=== PATIENT | male | born 1960 | race Caucasian/White ===

== ENCOUNTER 2016-09-27 08:40 | Observation (INO) | payer OTHER ==
[2016-09-27] MEDS ORDERED: methylPREDNISolone SOD SUCCI 125 MG/2 ML VIAL IV STA (09:02)
[2016-09-27] MEDS ORDERED: SODIUM CHLORIDE 0.9% 1,000 ML IV STA (09:02)
[2016-09-27] MEDS ORDERED: ALBUTEROL NEBULIZED 2.5 MG/3 ML INHALATION STA (09:02)
[2016-09-27] MEDS ORDERED: IPRATROPIUM 0.5 MG/2.5 ML NEBU INHALATION STA (09:02)
[2016-09-27] MEDS ORDERED: ONDANSETRON 4 MG/2 ML VIAL IVP STA (09:07)
[2016-09-27] MEDS: HYDROmorphone 1 MG/ML 1 ML SYRINGE IVP STA ×2 (09:53→13:36)
[2016-09-27 10:11] LABS: Basophils % (A) 0 %; CH 34.7; CHCM 34.7; Eosinophils # (A) 0.2 k/uL (0-0.7); Eosinophils % (A) 1 %; HCT 49.4 % (39.0-53.0); HDW 2.13; HGB 16.7 gm/dL (13.0-17.5); Luc # (Auto) 0.21; Luc % (Auto) 2; Lymphocytes # (A) 0.9 k/uL (1.0-4.8); Lymphocytes % (A) 8 %; MCHC 33.8 g/dL (31.0-37.0); MCV 100.5 fL (80.0-100.0); Mean Platelet Volume 6.4; Monocytes # (A) 0.5 k/uL (0-1.0); Monocytes % (A) 4 %; Neutrophils # (A) 9.7 k/uL (1.3-7.7); Neutrophils % (A) 85 %; RBC 4.91 m/uL (4.30-5.90); RDW 12.7 % (11.5-15.5); WBC 11.5 k/uL (3.8-10.6); WBC (Perox) 11.56
--- NOTE | 2016-09-27 10:15 | XR ---
EXAMINATION TYPE: XR chest 2V DATE OF EXAM: 09/27/2016 10:12 AM COMPARISON: 03/12/2016 TECHNIQUE: PA and lateral views submitted. HISTORY: Difficulty breathing FINDINGS: There is new left perihilar and upper lobe area of consolidation. Underlying COPD noted. No pleural e ffusion, pneumothorax or overt failure. Arthropathy of the shoulders and hypertrophic change of the spine. IMPRESSION: 1. COPD with new left upper lobe area of consolidation. Differential diagnosis includes pneumonia. Fo llow-up to resolution to exclude underlying neoplasm.
[2016-09-27 10:27] LABS: ALT 43 U/L (21-72); AST 39 U/L (17-59); Alkaline Phosphatase 71 U/L (38-126); Anion Gap 9 mmol/L; Blood Urea Nitrogen 8 mg/dL (9-20); Calcium 9.8 mg/dL (8.4-10.2); Carbon Dioxide 24 mmol/L (22-30); Chloride 101 mmol/L (98-107); Glucose 110 mg/dL (74-99); Non-African American GFR(MDRD) >60 (>60 ml/min/1.73 sqM); Potassium 4.6 mmol/L (3.5-5.1); Sodium 134 mmol/L (137-145); Total Bilirubin 0.8 mg/dL (0.2-1.3)
[2016-09-27 10:31] LABS: Partial Thromboplastin Time 26.7 sec (22.0-30.0); Prothrombin Time 10.3 sec (9.0-12.0)
[2016-09-27 10:41] LABS: Creatine Kinase 98 U/L (55-170)
[2016-09-27] MEDS ORDERED: AZITHROMYCIN 500 MG in SODIUM CHLORIDE 0.9% 250 ML IVPB STA (10:46)
[2016-09-27 10:53] LABS: Troponin I <0.012 ng/mL (0.000-0.034)
[2016-09-27 11:04] LABS: Creatine Kinase MB 4.4 ng/mL (0.0-2.4)
[2016-09-27] MEDS ORDERED: RX INFO: IV CONTRAST WAS GIVEN 1 EACH MISC MISCELLANE PRN (12:00)
--- NOTE | 2016-09-27 13:38 | CT ---
CT CHEST FOR PULMONARY EMBOLISM. EXAMINATION TYPE: CT angio chest DATE OF EXAM: 09/27/2016 1:26 PM INDICATION: SOB, Flu like symptoms CT DLP: 457 mGycm, Automated exposure control for dose reduction was used. CONTRAST: Patient injected with 100 ml mL of Omnipaque 350. COMPARISON: 09/01/2015 TECHNIQUE: CT of the chest is performed on a spiral scan at 2 mm thick sections. Study is performed with intravenous contrast timed for evaluation for pulmonary embolism. This will limit additional po rtions of the evaluation. 3-D MIP images reconstructed by the technologist are reviewed on the compu ter in the coronal and sagittal planes. FINDINGS: No persistent filling defects are evident to suggest an acute pulmonary embolism. No mediastinal or hilar adenopathy enlarged by CT criteria is evident. The ascending aorta diameter at the level of the main pulmonary artery is 2.9 cm. The main pulmonary artery diameter at the bifur cation is 2.4 cm. Emphysematous changes are present throughout the bilateral lung brown. There is a consolidation in t he superior segment left lower lobe. Findings could be related to pneumonia. This was not present on the comparison. Previous pleural effusions have resolved Limited CT section through the upper abdomen are unremarkable. IMPRESSIONS: 1. Consolidation superior segment left lower lobe suspicious for pneumonia. This is a finding from [facility] haile 2016. Underlying mass cannot be excluded. This should be followed to clearing. 2. No acute pulmonary embolism.
[2016-09-27] MEDS ORDERED: NITROGLYCERIN SL TABS 0.4 MG TAB SUBLINGUAL PRN (13:53)
[2016-09-27] MEDS ORDERED: HEPARIN SODIUM,PORCINE 5,000 UNIT/ML 1 ML VIAL IV ONE (13:53)
--- NOTE | 2016-09-27 13:53 | ED ---
SOB HPI - General Chief Complaint: Shortness of Breath Stated Complaint: SOB/Flu like symptoms Time Seen by Provider: 09/27/16 08:56 Source: patient Mode of arrival: ambulatory Limitations: no limitations - History of Present Illness Initial Comments: He has a history of shortness of breath, no worse for last 2 days also has a chronic chest pain and chest pain got worse today he has a history of COPD and pneumonia in the past he been coughing and bringing up some phlegm and he is also wheezing. He said the chest pain gets worse with deep deep breaths and numb he had a fever and cold last night he couldn't get warm with the 2 blankets. Denies any headaches no neck stiffness no abdominal pain no frequency urgency dysuria - Related Data Home Medications Medication Instructions Recorded Confirmed amLODIPine [Norvasc] 10 mg PO DAILY 02/07/15 09/27/16 levETIRAcetam [Keppra] 500 mg PO QAM 02/07/15 09/27/16 Albuterol Sulfate [Ventolin HFA] 2 puff INHALATION RT-Q4H PRN 03/31/15 09/27/16 Previous Rx's Medication Instructions Recorded Ipratropium-Albuterol Nebulize 3 ml INHALATION RT-QID #120 neb 04/19/15 [Duoneb 0.5 mg-3 mg/3 ml Soln] Budesonide-Formot 160-4.5 Mcg 2 puff INHALATION RT-BID #1 puff 07/08/15 [Symbicort 160-4.5 Mcg Inhaler] Allergies Allergy/AdvReac Type Severity Reaction Status Date / Time aspirin Allergy Unknown Verified 09/27/16 09:19 morphine Allergy Rash/Hives Verified 09/27/16 09:19 NSAIDS (Non-Steroidal Allergy Unknown Verified 09/27/16 09:19 Anti-Inflamma Review of Systems ROS Statement: Those systems with pertinent positive or pertinent negative responses have been documented in the HPI. ROS Other: All systems not noted in ROS Statement are negative. 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,PER PAST MEDICAL HX NOTED C2 fracture(FROM [facility]-NOT ABLE TO CONFIRM WITH PT), Osteoarthritis, DJD Last Myocardial Infarction Date:: unknown History of Any Multi-Drug Resistant Organisms: None Reported Past Surgical History: Orthopedic Surgery Additional Past Surgical History / Comment(s): neck fx, metal plate left hand middle finger Past Anesthesia/Blood Transfusion Reactions: No Reported Reaction Past Psychological History: No Psychological Hx Reported Smoking Status: Former smoker Past Alcohol Use History: Daily Additional Past Alcohol Use History / Comment(s): STARTED SMOKING 1975 1 PPD- HAS TRIED TO QUIT, PT ADMITS TO DRINKING 1-2 24 [employer] BEER PER DAY Past Drug Use History: None Reported - Past Family History Mother Family Medical History: Cancer Additional Family Medical History / Comment(s): Pt believes his Mom of Kidney Ca, but not 100% sure. Father Family Medical History: Cancer, Respiratory Disorder Additional Family Medical History / Comment(s): Melonoma General Exam - General Exam Comments Initial Comments: General: The patient is awake and alert, in no distress, and does not appear acutely ill. Skin: Skin is warm and dry and no rashes or lesions are noted. Eye: Pupils are equal, round and reactive to light, extra-ocular movements are intact; there is normal conjunctiva bilaterally. Ears, nose, mouth and throat: There are moist mucous membranes and no oral lesions. Neck: The neck is supple, there is no tenderness or JVD. Cardiovascular: There is a regular rate and rhythm. No murmur, rub or gallop is appreciated. Respiratory: To auscultation bilateral, some is consistent with down COPD, noticed some crackles at the bases as well Gastrointestinal: Soft, non-distended, non-tender abdomen without masses or organomegaly noted. There is no rebound or guarding present. Bowel sounds are unremarkable. Back: There is no tenderness to palpation in the midline. There is no obvious deformity. Musculoskeletal: Normal ROM, no tenderness, There is no pedal edema. There is no calf tenderness or swelling. No cords were appreciated. Neurological: CN II-XII intact, Cranial nerves III through XII are intact. There are no obvious motor or sensory deficits. Coordination appears grossly intact. Speech is normal. Psychiatric: Cooperative, appropriate mood & affect, normal judgment. Limitations: no limitations Course Vital Signs 09/27/16 09/27/16 09/27/16 08:46 09:15 09:37 Temperature 97 F L Pulse Rate 109 H 94 99 Respiratory 20 Rate Blood Pressure 145/86 O2 Sat by Pulse 95 Oximetry 09/27/16 09/27/16 09/27/16 09:50 11:10 11:32 Temperature 98.9 F Pulse Rate 96 96 93 Respiratory 18 18 18 Rate Blood Pressure 128/82 124/71 O2 Sat by Pulse 94 L 94 L 95 Oximetry 09/27/16 09/27/16 12:23 13:32 Temperature 98.7 F Pulse Rate 93 87 Respiratory 16 16 Rate Blood Pressure 148/88 162/70 O2 Sat by Pulse 94 L 95 Oximetry EKG is normal sinus rhythm ventricular rate is 94 6 [place] interval is 136 QRS duration is 78 QT/QTC 344/434 review of this EKG did not reveal any ST elevation or ST depression Medical Decision Making - Lab Data Result diagrams: 09/27/16 09:50 09/27/16 09:50 Lab Results 09/27/16 09/27/16 09/27/16 Range/Units 09:50 09:50 09:50 WBC 11.5 H (3.8-10.6) k/uL RBC 4.91 (4.30-5.90) m/uL Hgb 16.7 (13.0-17.5) gm/dL Hct 49.4 (39.0-53.0) % MCV 100.5 H (80.0-100.0) fL MCH 34.0 (25.0-35.0) pg MCHC 33.8 (31.0-37.0) g/dL RDW 12.7 (11.5-15.5) % Plt Count 231 (150-450) k/uL Neutrophils % 85 % Lymphocytes % 8 % Monocytes % 4 % Eosinophils % 1 % Basophils % 0 % Neutrophils # 9.7 H (1.3-7.7) k/uL Lymphocytes # 0.9 L (1.0-4.8) k/uL Monocytes # 0.5 (0-1.0) k/uL Eosinophils # 0.2 (0-0.7) k/uL Basophils # 0.0 (0-0.2) k/uL PT (9.0-12.0) sec INR (<1.1) APTT (22.0-30.0) sec D-Dimer (<0.60) mg/L FEU Sodium 134 L (137-145) mmol/L Potassium 4.6 (3.5-5.1) mmol/L Chloride 101 (98-107) mmol/L Carbon Dioxide 24 (22-30) mmol/L Anion Gap 9 mmol/L BUN 8 L (9-20) mg/dL Creatinine 0.60 L (0.66-1.25) mg/dL Est GFR (MDRD) Af Amer >60 (>60 ml/min/1.73 sqM) Est GFR (MDRD) Non-Af >60 (>60 ml/min/1.73 sqM) Glucose 110 H (74-99) mg/dL Plasma Lactic Acid Gray (0.7-2.0) mmol/L Calcium 9.8 (8.4-10.2) mg/dL Total Bilirubin 0.8 (0.2-1.3) mg/dL AST 39 (17-59) U/L ALT 43 (21-72) U/L Alkaline Phosphatase 71 (38-126) U/L Total Creatine Kinase 98 (55-170) U/L CK-MB (CK-2) 4.4 H* (0.0-2.4) ng/mL CK-MB (CK-2) Rel Index 4.5 Troponin I <0.012 (0.000-0.034) ng/mL Total Protein 7.0 (6.3-8.2) g/dL Albumin 4.0 (3.5-5.0) g/dL 09/27/16 09/27/16 Range/Units 09:50 09:50 WBC (3.8-10.6) k/uL RBC (4.30-5.90) m/uL Hgb (13.0-17.5) gm/dL Hct (39.0-53.0) % MCV (80.0-100.0) fL MCH (25.0-35.0) pg MCHC (31.0-37.0) g/dL RDW (11.5-15.5) % Plt Count (150-450) k/uL Neutrophils % % Lymphocytes % % Monocytes % % Eosinophils % % Basophils % % Neutrophils # (1.3-7.7) k/uL Lymphocytes # (1.0-4.8) k/uL Monocytes # (0-1.0) k/uL Eosinophils # (0-0.7) k/uL Basophils # (0-0.2) k/uL PT 10.3 (9.0-12.0) sec INR 1.0 (<1.1) APTT 26.7 (22.0-30.0) sec D-Dimer 0.73 H (<0.60) mg/L FEU Sodium (137-145) mmol/L Potassium (3.5-5.1) mmol/L Chloride (98-107) mmol/L Carbon Dioxide (22-30) mmol/L Anion Gap mmol/L BUN (9-20) mg/dL Creatinine (0.66-1.25) mg/dL Est GFR (MDRD) Af Amer (>60 ml/min/1.73 sqM) Est GFR (MDRD) Non-Af (>60 ml/min/1.73 sqM) Glucose (74-99) mg/dL Plasma Lactic Acid Gray 1.1 (0.7-2.0) mmol/L Calcium (8.4-10.2) mg/dL Total Bilirubin (0.2-1.3) mg/dL AST (17-59) U/L ALT (21-72) U/L Alkaline Phosphatase (38-126) U/L Total Creatine Kinase (55-170) U/L CK-MB (CK-2) (0.0-2.4) ng/mL CK-MB (CK-2) Rel Index Troponin I (0.000-0.034) ng/mL Total Protein (6.3-8.2) g/dL Albumin (3.5-5.0) g/dL Critical Care Time Total Critical Care Time: 45 Critical Care Time: Came in with a shortness of breath any chest pain he was given some Ventolin Atrovent treatment and some pain medication he is chest pain and go away he persisted d-dimer was elevated considering that we did the CT angiogram of PE study was negative but still has chest pain considering his multiple risk factors and will require and heparinize him admit him for further evaluation. Though he has this pain is chronic but he needs at least for serial cardiac markers and cardiology consult Disposition Clinical Impression: Chest pain, Pleuritic chest pain, Pneumonia Disposition: ADMITTED IP TO THIS [facility] Condition: Good
[2016-09-27] MEDS ORDERED: ALBUTEROL NEBULIZED 2.5 MG/3 ML INHALATION PRN (14:03)
[2016-09-27] MEDS: HEPARIN SODIUM,PORCINE/D5W PMX 25,000 UNIT in DEXTROSE/WATER 1 500ML.BAG IV SCH ×2 (14:27→21:59)
[2016-09-27] MEDS: IPRATROPIUM-ALBUTEROL 3 ML NEB INHALATION SCH ×2 (15:53→20:03)
[2016-09-27 16:33] LABS: Creatine Kinase 102 U/L (55-170)
[2016-09-27 16:46] LABS: Troponin I <0.012 ng/mL (0.000-0.034)
[2016-09-27 16:47] LABS: Creatine Kinase MB 4.8 ng/mL (0.0-2.4)
[2016-09-27 17:39] LABS: Glucose,Whole Blood 160 mg/dL (75-99)
--- NOTE | 2016-09-27 18:12 | HP ---
DATE OF ADMISSION: Patient is a 56-year-old gentleman who came in with complaints of flu-like symptoms. Influenza testing is negative. Patient always had left-sided chest pain. Additionally patient is having bilateral lower rib cage pain that worsens with deep breathing. Patient denied any fever at home, but felt like he was having flu. Patient also complained of chills. Patient was also complaining of shortness of breath. Does have history of COPD. Used to follow in Dr. Vogt's clinic in the past. Patient denied any orthopnea, PND. Patient continues to smoke. I reviewed the imaging. Unfortunately I cannot see the images of CT angiogram. It was read as a left upper lobe ( ) although clinically I do hear any bronchophony or egophony or any other signs or symptoms of pneumonia. Patient is also complaining of a cough with sputum production which is white to yellowish in color. Until I confirm this pneumonic infiltrate, I will go ahead and continue the antibiotic. Patient will be started on systemic steroids as well. Patient appears to have pleurisy. Patient's chest pain appears to be non-cardiac in nature, not associated with food. Patient had a CTA which does not appear to have any pulmonary embolism as per the reading from the ER, and since his picture is not clear, I will go ahead and consult Pulmonary. Cardiology was consulted from ER. ROS: All other systems were reviewed and were negative. Home medications include: 1. Amlodipine. 2. Levetiracetam. 3. Albuterol. 4. ( ) 5. Budesonide fomoterol. ALLERGIES: 1. ASPIRIN. 2. MORPHINE. 3. NSAIDS. 4. ANTI-INFLAMMATORY MEDICATIONS. Past medical history is significant for: 1. COPD. 2. CVA. 3. Gastroesophageal reflux disease. 4. Hypertension. Patient had orthopedic surgeries in the past. SOCIAL HISTORY: Smoking history as mentioned above. Drinks about 1 to 2 24-ounce beers a day. Denied any drug abuse. FAMILY HISTORY: Mother had cancer; of kidney cancer. Father had melanoma and respiratory disorder. PHYSICAL EXAMINATION: VITAL SIGNS: Temperature 97.0, pulse of 109 when he came in; it is 94 now. Blood pressure is 145/50. Saturation of 95% on room air. GENERAL: The patient is alert and oriented x3, not in any acute distress. Well developed, well nourished. HEENT: Pupils are round and equally reacting to light. EOMI. No scleral icterus. No conjunctival pallor. Normocephalic, atraumatic. No pharyngeal erythema. No thyromegaly. CARDIOVASCULAR: S1 and S2 present. No murmurs, rubs, or gallops. PULMONARY: Mildly decreased air entry along with mild wheezing bilaterally. No crackles were appreciated. No wheezing was appreciated. ABDOMEN: Soft, nontender, nondistended, normoactive bowel sounds. No palpable organomegaly. MUSCULOSKELETAL: No joint swelling or deformity. EXTREMITIES: No cyanosis, clubbing, or pedal edema. NEUROLOGICAL: Gross neurological examination did not reveal any focal deficits. SKIN: No rashes. LABORATORY DATA: CBC, CMP are abnormal for elevated WBC count of 11,500. Sodium 134. Troponin ( ) did not show any acute ST-T wave changes. ASSESSMENT AND PLAN: 1. Chest pain; appears to be pleuritic. Ruled out pulmonary embolism. Patient probably has pleurisy. My suspicion is low for coronary artery-related chest pain. Patient will be anyway ruled out acute coronary syndromes. Cardiology was consulted. I will consult Pulmonary because of above-mentioned reasons. 2. Left upper lobe pneumonia as per the CT reading, although I cannot ( ) images. Clinically does not appear to have pneumonia. ( ) I will continue with the antibiotics. 3. Acute hypercapnic respiratory failure secondary to chronic obstructive pulmonary disease exacerbation. Patient will be started on systemic steroids, which also will help with the pleurisy. Influenza testing is negative. Patient will be started on inhalational treatments. 4. Gastroesophageal reflux disease. 5. Continued nicotine use and alcohol abuse. Counseling was provided regarding that. MTDD
[2016-09-27] MEDS: SYMBICORT 160-4.5 MCG INHALER INHALATION SCH (20:06)
[2016-09-27 20:50] LABS: Glucose,Whole Blood 145 mg/dL (75-99)
[2016-09-27 21:37] LABS: Creatine Kinase 104 U/L (55-170)
[2016-09-27 21:49] LABS: Troponin I <0.012 ng/mL (0.000-0.034)
[2016-09-27 21:51] LABS: Creatine Kinase MB 5.1 ng/mL (0.0-2.4)
[2016-09-27] MEDS: ATORVASTATIN 40 MG TAB PO SCH (22:09)
[2016-09-27] MEDS: methylPREDNISolone SOD SUCCI 40 MG/ML 1 ML VIAL IV SCH (22:10)
[2016-09-28] MEDS: HYDROcodone/APAP 7.5-325MG 1 EACH TAB PO PRN ×4 (02:16→21:20)
[2016-09-28 04:45] LABS: Cholesterol 143 mg/dL (<200); HDL Cholesterol 97 mg/dL (40-60); Triglycerides 61 mg/dL (<150)
[2016-09-28 06:23] LABS: Glucose,Whole Blood 179 mg/dL (75-99)
[2016-09-28] MEDS: INSULIN LISPRO (humaLOG) 300 UNIT/3 ML VIAL SQ SCH ×4 (07:13→21:18)
[2016-09-28] MEDS ORDERED: DOBUTamine DRIP for NUC MED 500 MG in DEXTROSE/WATER 1 250ML.BAG IV ONE (08:24)
--- NOTE | 2016-09-28 08:55 | CONS ---
DATE OF CONSULTATION: CHIEF COMPLAINT: Chest pain. Mr. Mallory is a 56-year-old gentleman with history of chronic pain including chronic recurrent episodes of chest discomfort and COPD, who presented to the hospital complaining of chest pain. He also has cough and mild shortness of breath. His chest discomfort is mild to moderate intensity, came on at rest without definite radiation to neck, arm or back unassociated with diaphoresis. EKG did not reveal ischemic changes, had a CT scan of the chest that is negative for pulmonary embolism. He has had 3 sets of cardiac enzymes that are negative and at the time of my evaluation, he appears comfortable at rest and is free of symptoms. His chest discomfort seems musculoskeletal in nature. Past medical history is significant for COPD, hypertension and chronic pain. Medications include Keppra, Norvasc, DuoNeb, Symbicort and albuterol. ALLERGIES: Allergic to ASPIRIN, MORPHINE and NSAIDS. Family history is significant for coronary artery disease. SOCIAL HISTORY: Significant for smoking that he states he quit about a few months ago. There is no history of EtOH abuse or drug abuse. REVIEW OF SYSTEMS: HEENT: Unremarkable. CARDIAC: As described above. RESPIRATORY: Negative. GI: Negative. GENITOURINARY: Negative. ALLERGY/IMMUNOLOGY: Negative. SKIN: Negative. MUSCULOSKELETAL: Significant for arthritis. PSYCHOSOCIAL: Negative. ENDOCRINE: Negative. HEMATOLOGICAL: Negative. DERMATOLOGICAL: Negative. CONSTITUTIONAL: Negative. The rest of the system review is not relevant. On exam, patient is comfortable at rest. Vital signs are stable. There is no jugular venous distention. Chest exam reveals good air entry bilaterally. Heart exam reveals first heart sounds. No gallop. No murmur, no rub. Abdomen is soft, nontender. Exam of extremities did not reveal edema. Peripheral pulses are felt. L[employer] WORK[employer] exam did not reveal focal neurological deficits. ASSESSMENT: 1. Chest pain. 2. Hypertension. 3. Chronic obstructive pulmonary disease. PLAN: Patient's chest discomfort is probably noncardiac in origin, myocardial infarction is ruled out. We are going to stop the IV heparin and schedule the patient for an echo and a dobutamine echo today. I reviewed all of his old records and he had a negative stress test in the past.
[2016-09-28] MEDS: amLODIPine 10 MG TAB PO SCH (08:59)
[2016-09-28] MEDS: methylPREDNISolone SOD SUCCI 40 MG/ML 1 ML VIAL IV SCH ×2 (09:00→21:18)
[2016-09-28] MEDS: levETIRAcetam 500 MG TAB PO SCH (09:00)
[2016-09-28] MEDS ORDERED: ASPIRIN 325 MG TAB PO SCH ×2 (09:00)
[2016-09-28] MEDS: IPRATROPIUM-ALBUTEROL 3 ML NEB INHALATION SCH ×4 (09:51→19:35)
[2016-09-28] MEDS: SYMBICORT 160-4.5 MCG INHALER INHALATION SCH ×2 (09:53→19:37)
[2016-09-28] MEDS ORDERED: METOPROLOL TARTRATE 5 MG/5 ML VIAL IVP ONE (10:55)
[2016-09-28] MEDS ORDERED: ATROPINE SULFATE 0.1 MG/ML 10ML SYRINGE ONE (10:55)
[2016-09-28 11:51] LABS: Glucose,Whole Blood 110 mg/dL (75-99)
[2016-09-28 12:10] LABS: Hemoglobin A1C 4.8 % (4.2-6.1)
--- NOTE | 2016-09-28 12:17 | ECHOS ---
DATE OF SERVICE: 09/28/2016 AGE: 56Y SEX: M HT: 77" WT: 131 lbs. Protocol Harrison: Others: Dobutamine Stress Echo Stage: Dur. of Exercise: *Heart Rate Blood Pressure *Rest: 72 Rest: 114/50 * *Max. Achieved: 160 Maximum BP: 160/68 85% PMHR: 140 100% PMHR: 165 *METS: INDICATION OF THE STUDY: Chest pain. MEDICATIONS: Keppra, Ventolin, DuoNeb, Symbicort. STRESS DATA: Pretesting physical examination showed heart rate of 72, pressure is 114/50 mmHg. Baseline EKG showed sinus rhythm. Dobutamine infusion at a dose of 10 mcg/kg per minute was initiated and increased to 20 mcg/kg per minute. We gave the patient 1 mg of atropine to enhance the heart rate. With dobutamine and atropine, the patient achieved a max heart rate of 160 beats per minute, which is about 96% of maximum predicted heart rate. Maximum blood pressure was 160/68 mmHg. Clinically the patient did not have any symptoms and the EKG did not show any significant ST or T wave abnormalities consistent with ischemia. ECHOCARDIOGRAM IMAGES: On echocardiogram images from parasternal long axis view, parasternal short axis view, apical 4 chambers and apical 2 chamber view, were obtained as the baseline images, at low-dose dobutamine infusion, at the peak of the heart rate, as well as on recovery and the echocardiogram images showed good augmentation in the left ventricular systolic function without any evidence of wall motion abnormalities consistent with ischemia. CONCLUSION: 1. Normal EKG in response to dobutamine. 2. Normal echocardiogram in response to dobutamine.
--- NOTE | 2016-09-28 12:20 | ECHOF ---
Referral Reason:chest pain MEASUREMENTS -------- HEIGHT: 167.6 cm WEIGHT: 65.8 kg BP: IVSd: 1.0 cm (0.6 - 1.1) LVIDd: 4.5 cm (3.9 - 5.3) LVPWd: 1.2 cm (0.6 - 1.1) IVSs: 1.6 cm LVIDs: 2.2 cm LVPWs: 1.5 cm Ao Diam: 3.1 cm (2.0 - 3.7) AV Cusp: 1.8 cm (1.5 - 2.6) LA Diam: 3.3 cm (2.7 - 3.8) MV EXCURSION: 18.395 mm (> 18.000) MV EF SLOPE: 169 mm/s (70 - 150) EPSS: 0.4 cm MV E Eugene: 0.60 m/s MV DecT: 155 ms MV A Eugene: 0.83 m/s MV E/A Ratio: 0.73 RAP: 5.00 mmHg RVSP: 9.74 mmHg FINDINGS -------- Sinus rhythm. This was a technically good study. There is mild concentric left ventricular hypertrophy. Overall left ventricular systolic function is normal with, an EF between 55 - 60 %. The right ventricle is normal in size and function. The left atrium is normal in size. The right atrium is normal in size. The aortic valve is trileaflet, and appears structurally normal. No aortic stenosis or regurgitation. The mitral valve leaflets are mildly thickened. Mild mitral regurgitation is present. Mild tricuspid regurgitation present. The right ventricular systolic pressure, as measured by Doppler, is 9.74mmHg. Pulmonic valve appears structurally normal. The aortic root size is normal. The pericardium is normal. CONCLUSIONS -------- 1. Sinus rhythm. 2. Mild mitral regurgitation is present. 3. Mild tricuspid regurgitation present. 4. The right ventricular systolic pressure, as measured by Doppler, is 9.74mmHg. 5. Pulmonic valve appears structurally normal. 6. The aortic root size is normal. 7. The pericardium is normal. 8. This was a technically good study. 9. There is mild concentric left ventricular hypertrophy. 10. Overall left ventricular systolic function is normal with, an EF between 55 - 60 %. 11. The right ventricle is normal in size and function. 12. The left atrium is normal in size. 13. The right atrium is normal in size. 14. The aortic valve is trileaflet, and appears structurally normal. No aortic stenosis or regurgitation. 15. The mitral valve leaflets are mildly thickened. ULTRASOUND TECHNICIAN: Jessica Garcia RDCS
[2016-09-28 17:01] LABS: Glucose,Whole Blood 150 mg/dL (75-99)
--- NOTE | 2016-09-28 17:26 | P.CNPUL ---
History of Present Illness Consult date: 09/28/16 Requesting physician: Mitchell Guzmán Reason for consult: pneumonia Chief complaint: Flulike symptoms, cough and shortness of breath vague chest pains History of present illness: This is a 56-year-old white male with history of hypertension, COPD, smoker, came in yesterday with mostly symptoms of shortness of breath, cough, vague left -sided chest pains, or rib cage pain, pleurisy type pain sometimes, and he was also complaining of chills. No documented fever, chest x-ray and CT of the chest were consistent with a left upper lobe infiltrate consistent with pneumonia. Patient was admitted and this consult was initiated. Patient denies any headaches no blurred vision no dizziness, he is known to have history of seizures but has been seizure free for many years. Compliant with his medication/Keppra. No nausea no vomiting no abdominal pain no melena no hematemesis. Patient has been seeing Dr. Bland for his COPD. 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,PER PAST MEDICAL HX NOTED C2 fracture(FROM [facility]-NOT ABLE TO CONFIRM WITH PT), Osteoarthritis, DJD, "FROZEN SHOULDER SYNDROME (RT)" , [place]-PT STATED IN THE Last Myocardial Infarction Date:: unknown History of Any Multi-Drug Resistant Organisms: None Reported Past Surgical History: Orthopedic Surgery Additional Past Surgical History / Comment(s): neck fx, metal plate left hand middle finger Past Anesthesia/Blood Transfusion Reactions: No Reported Reaction Past Psychological History: No Psychological Hx Reported Additional Psychological History / Comment(s): 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 - Past Family History Mother Family Medical History: Cancer Additional Family Medical History / Comment(s): Pt believes his Mom of Kidney Ca, but not 100% sure. Father Family Medical History: Cancer, Respiratory Disorder Additional Family Medical History / Comment(s): Melonoma Medications and Allergies Home Medications Medication Instructions Recorded Confirmed Type amLODIPine [Norvasc] 10 mg PO DAILY 02/07/15 09/27/16 History levETIRAcetam [Keppra] 500 mg PO QAM 02/07/15 09/27/16 History Albuterol Sulfate [Ventolin HFA] 2 puff INHALATION RT-Q4H PRN 03/31/15 09/27/16 History Allergies Allergy/AdvReac Type Severity Reaction Status Date / Time aspirin Allergy Unknown Verified 09/27/16 09:19 morphine Allergy Rash/Hives Verified 09/27/16 09:19 NSAIDS (Non-Steroidal Allergy Unknown Verified 09/27/16 09:19 Anti-Inflamma Physical Exam Vitals: Vital Signs Temp Pulse Pulse Resp BP Pulse Ox 09/28/16 16:25 72 09/28/16 16:09 70 09/28/16 16:00 96.9 F L 93 16 102/65 09/28/16 13:28 70 09/28/16 13:19 68 09/28/16 11:49 97 F L 94 16 117/70 09/28/16 10:04 66 09/28/16 09:54 62 09/28/16 08:00 97.2 F L 95 16 113/71 96 09/28/16 04:00 97.3 F L 69 18 123/81 96 09/28/16 02:54 60 09/28/16 02:42 58 L 09/28/16 00:00 97.0 F L 66 16 120/78 96 09/27/16 20:20 70 09/27/16 20:08 70 09/27/16 20:00 97.2 F L 66 16 122/79 97 Intake and Output 09/28/16 09/28/16 09/28/16 06:59 14:59 22:59 Intake Total 153.236 Output Total 1400 Balance 153.236 -1400 Intake: Intake, IV Titration 153.236 Amount Heparin Sodium,Porcine/ 153.236 D5w Pmx 25,000 unit In Dextrose/Water 1 500ml. bag @ 12 UNITS/KG/HR 15. 78 mls/hr IV .Q24H [facility] Rx #:[id number] Output: Urine 1400 Other: Voiding Method Urinal Weight 59.8 kg Patient Weight 09/29/16 06:59 Weight 59.8 kg Physical Exam HEENT:[Neck is supple.] [No neck masses.] [No thyromegaly.] [No JVD.] Chest: [Clear throughout, no crackles, no rhonchi, no wheezes.] Cardiac Exam: [Normal S1 and S2, no S3 gallop, no murmur.] Abdomen: [Soft, nontender, no megaly, no rebound, no guarding, normal bowel sounds.] Extremities: [No clubbing, no edema, no cyanosis.] Neurological Exam: [No focal neurologic deficit.] Results - Laboratory Findings CBC and BMP: 09/27/16 09:50 09/27/16 09:50 PT/INR, D-dimer PT 10.3 sec (9.0-12.0) 09/27/16 09:50 INR 1.0 (<1.1) 09/27/16 09:50 D-Dimer 0.73 mg/L FEU (<0.60) H 09/27/16 09:50 Abnormal lab findings: Abnormal Labs 09/27/16 09/27/16 09/27/16 15:56 17:16 20:49 APTT POC Glucose (mg/dL) 160 H 145 H CK-MB (CK-2) 4.8 H* HDL Cholesterol 09/27/16 09/27/16 09/28/16 20:56 20:56 03:50 APTT 33.8 H POC Glucose (mg/dL) CK-MB (CK-2) 5.1 H* HDL Cholesterol 97 H 09/28/16 09/28/16 09/28/16 03:50 06:22 11:39 APTT 35.9 H POC Glucose (mg/dL) 179 H 110 H CK-MB (CK-2) HDL Cholesterol 09/28/16 16:47 APTT POC Glucose (mg/dL) 150 H CK-MB (CK-2) HDL Cholesterol - Diagnostic Findings CT scan - chest: image reviewed (Left upper lobe pneumonia is strongly suspected ) Assessment and Plan Plan: Impression: 1 Left upper lobe pneumonia seen on the chest x-ray and confirmed on the CT of the chest. Seems to be rather extensive hence the patient will need to be treated for community-acquired pneumonia probably gram-negative, and we will reevaluate the chest x-ray in the next 24 hours. If not any worse, patient could be considered for discharge planning on oral antibiotics, and close follow-up in the office within few days. 2 history of multiple comorbidities including chronic obstructive pulmonary disease, patient presently on bronchodilators and also on steroids, history of GERD, history of nicotine dependence, history of alcohol abuse, history of GERD , and history of seizure disorder. Recommendation: Fully agree with the present treatment plan repeat chest x-ray in a.m., and if not any worse consider discharge planning. And follow-up on outpatient basis. Time with Patient: Greater than 30
--- NOTE | 2016-09-28 19:04 | PN ---
Patient is a 56 -year-old came in with left upper lobe pneumonia and patient is being treated for that and patient is still complaining of chest pain. The patient underwent stress test which was negative. Patient was ruled out for pulmonary embolism. REVIEW OF SYSTEMS: CARDIOVASCULAR: As mentioned above. PULMONARY: As mentioned above. GASTROINTESTINAL: No diarrhea, nausea or vomiting. No abdominal pain. Normoactive bowel sounds. NEUROLOGIC: No headaches, no weakness, no numbness. LABORATORY DATA: CBC, CMP essentially within normal limits. PHYSICAL EXAMINATION: VITAL SIGNS: Temperature 96.9, pulse of 93, respiratory rate of 16, blood pressure 102/65. Saturating at 96% on room air. GENERAL: The patient is alert and oriented x3, not in any acute distress. Well developed, well nourished. HEENT: Pupils are round and equally reacting to light. EOMI. No scleral icterus. No conjunctival pallor. Normocephalic, atraumatic. No pharyngeal erythema. No thyromegaly. CARDIOVASCULAR: S1 and S2 present. No murmurs, rubs, or gallops. PULMONARY: rhonchus with some bilaterally. No wheezing was appreciated. Did not hear any clear-cut bronchophony or egophony. ABDOMEN: Soft, nontender, nondistended, normoactive bowel sounds. No palpable organomegaly. MUSCULOSKELETAL: No joint swelling or deformity. EXTREMITIES: No cyanosis, clubbing, or pedal edema. NEUROLOGICAL: Gross neurological examination did not reveal any focal deficits. SKIN: No rashes. ASSESSMENT AND PLAN: 1. Chest pain and shortness of breath secondary to the left upper lobe pneumonia. Continue IV antibiotics. 2. Acute hypercapnic respiratory failure secondary to chronic obstructive pulmonary disease exacerbation, continue inhalational treatments. Continue systemic steroids. 3. Gastroesophageal reflux disease. 4. Continued nicotine abuse and alcohol abuse. Counseling was provided regarding that. We will watch him for any withdrawals. If he starts having withdrawals, patient will be started on Ativan and CIWA protocol.
[2016-09-28 20:55] LABS: Glucose,Whole Blood 164 mg/dL (75-99)
[2016-09-28] MEDS: ATORVASTATIN 40 MG TAB PO SCH (21:18)
[2016-09-29] MEDS: HYDROcodone/APAP 7.5-325MG 1 EACH TAB PO PRN ×3 (03:54→15:26)
[2016-09-29 04:35] VITALS: RESP 18; TEMP 97.1
[2016-09-29 06:08] LABS: Glucose,Whole Blood 142 mg/dL (75-99)
[2016-09-29] MEDS: IPRATROPIUM-ALBUTEROL 3 ML NEB INHALATION SCH ×3 (06:16→15:11)
[2016-09-29] MEDS: INSULIN LISPRO (humaLOG) 300 UNIT/3 ML VIAL SQ SCH ×2 (06:20→15:19)
[2016-09-29] MEDS: SYMBICORT 160-4.5 MCG INHALER INHALATION SCH (07:43)
[2016-09-29] MEDS: methylPREDNISolone SOD SUCCI 40 MG/ML 1 ML VIAL IV SCH (08:19)
[2016-09-29] MEDS: levETIRAcetam 500 MG TAB PO SCH (08:20)
[2016-09-29] MEDS: amLODIPine 10 MG TAB PO SCH (08:20)
[2016-09-29] MEDS ORDERED: AZITHROMYCIN 500 MG TAB PO STA (09:59)
[2016-09-29] MEDS ORDERED: CEFUROXIME 250 MG TAB PO SCH (10:00)
--- NOTE | 2016-09-29 11:02 | P.PN ---
Subjective Principal diagnosis: Chest pain This is a 56-year-old gentleman with history of chronic pain, COPD, who presented to the hospital with symptoms of chest pain with associated cough and mild shortness of breath. He underwent a dobutamine echocardiographic study yesterday that was negative for any reversible ischemia. Echocardiogram with Doppler study was performed which revealed normal left ventricular systolic function. Patient was seen and examined this morning, feeling depressed. No overt complaints. Denies chest pain. Blood pressure 126/70 with a heart rate of 90. Objective - Vital Signs Vital signs: Vital Signs Temp 97.1 F L 09/29/16 08:00 Pulse 93 09/29/16 08:00 Resp 18 09/29/16 08:00 BP 126/75 09/29/16 08:00 Pulse Ox 95 09/29/16 08:00 Intake & Output 09/28/16 09/29/16 09/29/16 18:59 06:59 18:59 Intake Total 300 236 Output Total 1800 0 Balance -1500 0 236 Weight 59.8 kg 60.3 kg Intake: Oral 300 236 Output: Urine 1800 0 Other: Voiding Method Urinal Urinal # Voids 2 - Exam PHYSICAL EXAMINATION: HEENT: Head is atraumatic, normocephalic. Pupils equal, round. Neck is supple. There is no elevated jugular venous pressure. HEART EXAMINATION: Heart S1, S2 normal. No murmur or gallop heard. CHEST EXAMINATION: Lungs are clear to auscultation and precussion. No chest wall tenderness is noted on palpation or with deep breathing. ABDOMEN: Soft, nontender. Bowel sounds are heard. No organomegaly noted. EXTREMITIES: 2+ peripheral pulses with no evidence of peripheral edema and no calf tenderness noted. NEUROLOGIC patient is awake, alert and oriented -3. . - Labs CBC & Chem 7: 09/27/16 09:50 09/27/16 09:50 Labs: Abnormal Lab Results - Last 24 Hours (Table) 09/28/16 09/28/16 09/28/16 Range/Units 11:39 16:47 20:50 POC Glucose (mg/dL) 110 H 150 H 164 H (75-99) mg/dL 09/29/16 Range/Units 06:06 POC Glucose (mg/dL) 142 H (75-99) mg/dL Assessment and Plan (1) Atypical chest pain Status: Acute (2) COPD exacerbation Status: Acute (3) Pneumonia Status: Acute Plan: From cardiology's perspective, we will follow this patient with you now on an as -needed basis only. Please see to call with any questions. We will make him a follow-up appointment in the office post discharge. DNP note has been reviewed, I agree with a documented findings and plan of care. Patient was seen and examined.
--- NOTE | 2016-09-29 11:34 | P.PN ---
Subjective Principal diagnosis: Acute left upper lobe pneumonia his is a 56-year-old white male with history of hypertension, COPD, smoker, came in yesterday with mostly symptoms of shortness of breath, cough, vague left -sided chest pains, or rib cage pain, pleurisy type pain sometimes, and he was also complaining of chills. No documented fever, chest x-ray and CT of the chest were consistent with a left upper lobe infiltrate consistent with pneumonia. Patient was admitted and this consult was initiated. Patient denies any headaches no blurred vision no dizziness, he is known to have history of seizures but has been seizure free for many years. Compliant with his medication/Keppra. No nausea no vomiting no abdominal pain no melena no hematemesis. Patient has been seeing Dr. Bland for his COPD. Patient was reevaluated today on 09/29/2016, feeling better, but he had generalized aches and pains, patient is known to have history of chronic pain syndrome. Pulmonary-jhaveri is doing well, no cough no wheezing no shortness of breath, and I explained to him today that we will switch him to oral antibiotics , and possibly discharge the patient home today. He should have a follow-up chest x-ray with his primary care physician, and if remains abnormal patient is to be referred to us on outpatient basis. Objective - Vital Signs Vital signs: Vital Signs Temp 97.1 F L 09/29/16 08:00 Pulse 94 09/29/16 11:27 Resp 18 09/29/16 08:00 BP 126/75 09/29/16 08:00 Pulse Ox 95 09/29/16 08:00 Intake & Output 09/28/16 09/29/16 09/29/16 18:59 06:59 18:59 Intake Total 300 236 Output Total 1800 0 Balance -1500 0 236 Weight 59.8 kg 60.3 kg Intake: Oral 300 236 Output: Urine 1800 0 Other: Voiding Method Urinal Urinal # Voids 2 - Exam HEENT:[Neck is supple.] [No neck masses.] [No thyromegaly.] [No JVD.] Chest: [Clear throughout, no crackles, no rhonchi, no wheezes.] Cardiac Exam: [Normal S1 and S2, no S3 gallop, no murmur.] Abdomen: [Soft, nontender, no megaly, no rebound, no guarding, normal bowel sounds.] Extremities: [No clubbing, no edema, no cyanosis.] Neurological Exam: [No focal neurologic deficit.] - Labs CBC & Chem 7: 09/27/16 09:50 09/27/16 09:50 Labs: Abnormal Lab Results - Last 24 Hours (Table) 09/28/16 09/28/16 09/28/16 Range/Units 11:39 16:47 20:50 POC Glucose (mg/dL) 110 H 150 H 164 H (75-99) mg/dL 09/29/16 Range/Units 06:06 POC Glucose (mg/dL) 142 H (75-99) mg/dL Assessment and Plan Plan: Impression: 1 Left upper lobe pneumonia seen on the chest x-ray and confirmed on the CT of the chest. Seems to be rather extensive hence the patient will need to be treated for community-acquired pneumonia probably gram-negative, clinically the patient is doing well, he could be placed on Ceftin and Zithromax , and could be considered for discharge planning today with close outpatient follow-up. 2 history of multiple comorbidities including chronic obstructive pulmonary disease, patient presently on bronchodilators and also on steroids, history of GERD, history of nicotine dependence, history of alcohol abuse, history of GERD , and history of seizure disorder. Recommendation: Placed patient on Ceftin and Zithromax, and discharge home today. Must follow-up on outpatient basis with his primary care physician, must have a follow-up chest x-ray in one week, and the patient is to call us or follow up with us if he gets any worse. Time with Patient: Less than 30
[2016-09-29 12:00] LABS: Glucose,Whole Blood 98 mg/dL (75-99)
[2016-09-29 13:30] VITALS: BP 125/61
[2016-09-29 15:14] VITALS: PULSE 92
[2016-09-29 16:51] LABS: Glucose,Whole Blood 110 mg/dL (75-99)
--- NOTE | 2016-09-29 22:21 | DS ---
DATE OF ADMISSION: 09/27/2016 DATE OF DISCHARGE: 09/29/2016 Patient is admitted for left upper lobe pneumonia and the patient is feeling better and patient was also treated for COPD exacerbation. Patient is being discharged in stable medical condition to home. Patient was seen and examined on the day of discharge. Vital signs stable. PHYSICAL EXAMINATION: GENERAL: The patient is alert and oriented x3, not in any acute distress. Well developed, well nourished. HEENT: Pupils are round and equally reacting to light. EOMI. No scleral icterus. No conjunctival pallor. Normocephalic, atraumatic. No pharyngeal erythema. No thyromegaly. CARDIOVASCULAR: S1 and S2 present. No murmurs, rubs, or gallops. PULMONARY: Chest is clear to auscultation, no wheezing or crackles. ABDOMEN: Soft, nontender, nondistended, normoactive bowel sounds. No palpable organomegaly. MUSCULOSKELETAL: No joint swelling or deformity. EXTREMITIES: No cyanosis, clubbing, or pedal edema. NEUROLOGICAL: Gross neurological examination did not reveal any focal deficits. SKIN: No rashes. FINAL DIAGNOSES: 1. Left upper lobe pneumonia. 2. Acute hypercapnic respiratory failure secondary to chronic obstructive pulmonary disease exacerbation. 3. Gastroesophageal reflux disease. 4. Continue nicotine use and alcohol abuse. Counseling was provided. For discharge medications, please refer to my depart summary. Activity as tolerated. Follow up with Dr. Urszula Carrasco in 3 to 7 days. DISCHARGE DIET: Cardiac diet. Spent greater than 35 minutes in total discharge process.
== END 2016-09-29 17:21 | disposition home or self-care (01) ==
LOC: EC 08:40 → 4MS4W 14:03 → INTOOBSV 14:03 → 6SEL 15:02
PROVIDERS: ADMIT Internal Medicine; ATTEND Internal Medicine
DX: J18.9 Pneumonia, unspecified organism (principal); J44.0 Chronic obstructive pulmonary disease with (acute) lower respiratory infection; J96.02 Acute respiratory failure with hypercapnia; K21.9 Gastro-esophageal reflux disease without esophagitis; F10.10 Alcohol abuse, uncomplicated; F17.200 Nicotine dependence, unspecified, uncomplicated; G40.909 Epilepsy, unspecified, not intractable, without status epilepticus; G89.4 Chronic pain syndrome; I10 Essential (primary) hypertension; Z79.899 Other long term (current) drug therapy; Z86.73 Personal history of transient ischemic attack (TIA), and cerebral infarction without residual deficits; Z87.01 Personal history of pneumonia (recurrent); Z79.51 Long term (current) use of inhaled steroids; Z88.6 Allergy status to analgesic agent; Z88.5 Allergy status to narcotic agent
CPT/HCPCS: 96376; 96361; 96365; 96366; 96367; 96375; 99291; 36415; 94640 ×6; 93005; 93017; 93306; 93350; 85379; 80061; 80053; 83036; 82550; 82553; 83605; 84484; 85025; 85610; 85730 ×2; 87040; 87502; 71020; 71275; G0378 ×3; J1250; J1644 ×2; J2920 ×3; J2930; Q9967; J2405; J0456; J0696; J1170

== ENCOUNTER → 2016-10-03 | Outpatient (CLI) | payer OTHER ==
--- NOTE | 2016-10-03 17:31 | XR ---
EXAMINATION TYPE: XR chest 2V DATE OF EXAM: 10/03/2016 5:26 PM COMPARISON: 09/27/2016 HISTORY: Follow-up pneumonia TECHNIQUE: Frontal and lateral views of the chest are obtained. FINDINGS: Heart and mediastinum are normal. There is a small area of linear density in the left midl vaishnavi. The other lung brown are clear. There are no hilar masses. There is no pleural effusion. Bony t horax is intact. IMPRESSION: Small area of linear infiltrate and atelectasis in the left midlung. There is significan t clearing of the left lower lobe pneumonic infiltrate compared to last exam.
== END | disposition home or self-care (01) ==
LOC: RADXRMAIN 17:10
PROVIDERS: ATTEND Family Medicine
DX: J98.11 Atelectasis (principal); R91.8 Other nonspecific abnormal finding of lung field
CPT/HCPCS: 71020

== ENCOUNTER 2016-10-14 09:00 | Emergency (ER) | payer OTHER ==
[2016-10-14 09:08] VITALS: RESP 20
[2016-10-14] MEDS ORDERED: predniSONE 20 MG TAB PO STA (09:39)
[2016-10-14] MEDS ORDERED: IPRATROPIUM-ALBUTEROL 3 ML NEB INHALATION STA (09:39)
[2016-10-14] MEDS ORDERED: ALBUTEROL NEBULIZED 2.5 MG/3 ML INHALATION STA ×2 (09:39→13:14)
--- NOTE | 2016-10-14 09:56 | ED ---
SOB HPI - General Chief Complaint: Shortness of Breath Stated Complaint: diff breathing Time Seen by Provider: 10/14/16 09:07 Source: patient Mode of arrival: ambulatory Limitations: no limitations - History of Present Illness Initial Comments: This patient is a 56-year-old man with history of COPD, who states she has been having a flareup of his respiratory status. He complains of shortness of breath , chest tightness, productive cough which is getting worse over the past week or so. MD Complaint: shortness of breath, cough -: days(s) - Related Data Home Medications Medication Instructions Recorded Confirmed amLODIPine [Norvasc] 10 mg PO DAILY 02/07/15 10/14/16 levETIRAcetam [Keppra] 500 mg PO QAM 02/07/15 10/14/16 Albuterol Sulfate [Ventolin HFA] 2 puff INHALATION RT-Q4H PRN 03/31/15 10/14/16 Albuterol Nebulized [Ventolin 2.5 mg INHALATION RT-QID PRN 10/14/16 10/14/16 Nebulized] Previous Rx's Medication Instructions Recorded Budesonide-Formot 160-4.5 Mcg 2 puff INHALATION RT-BID #1 puff 07/08/15 [Symbicort 160-4.5 Mcg Inhaler] Albuterol Inhaler [Ventolin Hfa 1 - 2 puff INHALATION Q6HR PRN #1 10/14/16 Inhaler] inhaler Levofloxacin [Levaquin] 500 mg PO DAILY #7 tab 10/14/16 predniSONE 60 mg PO DAILY #30 tab 10/14/16 Allergies Allergy/AdvReac Type Severity Reaction Status Date / Time aspirin Allergy Unknown Verified 10/14/16 12:29 morphine Allergy Rash/Hives Verified 10/14/16 12:29 NSAIDS (Non-Steroidal Allergy Unknown Verified 10/14/16 12:29 Anti-Inflamma Review of Systems ROS Statement: Those systems with pertinent positive or pertinent negative responses have been documented in the HPI. ROS Other: All systems not noted in ROS Statement are negative. Constitutional: Denies: fever, chills Respiratory: Reports: cough, dyspnea, wheezes. 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,PER PAST MEDICAL HX NOTED C2 fracture(FROM [facility]-NOT ABLE TO CONFIRM WITH PT), Osteoarthritis, DJD, "FROZEN SHOULDER SYNDROME (RT)" , [place]-PT STATED IN THE Last Myocardial Infarction Date:: unknown History of Any Multi-Drug Resistant Organisms: None Reported Past Surgical History: Orthopedic Surgery Additional Past Surgical History / Comment(s): neck fx, metal plate left hand middle finger Past Anesthesia/Blood Transfusion Reactions: No Reported Reaction Past Psychological History: No Psychological Hx Reported Additional Psychological History / Comment(s): 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 - Past Family History Mother Family Medical History: Cancer Additional Family Medical History / Comment(s): Pt believes his Mom of Kidney Ca, but not 100% sure. Father Family Medical History: Cancer, Respiratory Disorder Additional Family Medical History / Comment(s): Melonoma General Exam Limitations: no limitations General appearance: alert, in no apparent distress Head exam: Present: atraumatic, normocephalic Eye exam: Present: normal appearance. Absent: scleral icterus, conjunctival injection Respiratory exam: Present: wheezes, rhonchi. Absent: rales, stridor Cardiovascular Exam: Present: normal rhythm, tachycardia, normal heart sounds. Absent: systolic murmur, diastolic murmur, rubs, gallop GI/Abdominal exam: Present: soft. Absent: distended, tenderness, guarding, rebound, mass Extremities exam: Present: normal inspection, normal capillary refill. Absent: pedal edema, calf tenderness Back exam: Present: normal inspection. Absent: CVA tenderness (R), CVA tenderness (L) Neurological exam: Present: alert Skin exam: Present: warm, dry, intact, normal color. Absent: rash Course Vital Signs 10/14/16 10/14/16 10/14/16 09:06 09:25 10:11 Temperature 96.9 F L Pulse Rate 108 H 96 Respiratory 20 20 Rate Blood Pressure 133/74 O2 Sat by Pulse 94 L Oximetry 10/14/16 10/14/16 10/14/16 10:18 10:19 10:34 Temperature Pulse Rate 94 94 102 H Respiratory Rate Blood Pressure O2 Sat by Pulse Oximetry Medical Decision Making - Lab Data Result diagrams: 10/14/16 09:20 10/14/16 09:20 Lab Results 10/14/16 10/14/16 10/14/16 Range/Units 09:20 09:20 09:20 WBC 7.1 (3.8-10.6) k/uL RBC 5.04 (4.30-5.90) m/uL Hgb 17.1 (13.0-17.5) gm/dL Hct 51.2 (39.0-53.0) % MCV 101.7 H (80.0-100.0) fL MCH 33.9 (25.0-35.0) pg MCHC 33.3 (31.0-37.0) g/dL RDW 12.6 (11.5-15.5) % Plt Count 322 (150-450) k/uL Neutrophils % 66 % Lymphocytes % 21 % Monocytes % 7 % Eosinophils % 3 % Basophils % 1 % Neutrophils # 4.7 (1.3-7.7) k/uL Lymphocytes # 1.5 (1.0-4.8) k/uL Monocytes # 0.5 (0-1.0) k/uL Eosinophils # 0.2 (0-0.7) k/uL Basophils # 0.1 (0-0.2) k/uL D-Dimer (<0.60) mg/L FEU Sodium 137 (137-145) mmol/L Potassium 4.6 (3.5-5.1) mmol/L Chloride 101 (98-107) mmol/L Carbon Dioxide 26 (22-30) mmol/L Anion Gap 10 mmol/L BUN 9 (9-20) mg/dL Creatinine 0.65 L (0.66-1.25) mg/dL Est GFR (MDRD) Af Amer >60 (>60 ml/min/1.73 sqM) Est GFR (MDRD) Non-Af >60 (>60 ml/min/1.73 sqM) Glucose 79 (74-99) mg/dL Calcium 9.5 (8.4-10.2) mg/dL Total Bilirubin 1.1 (0.2-1.3) mg/dL AST 33 (17-59) U/L ALT 32 (21-72) U/L Alkaline Phosphatase 63 (38-126) U/L Total Creatine Kinase 103 (55-170) U/L CK-MB (CK-2) 4.1 H* (0.0-2.4) ng/mL CK-MB (CK-2) Rel Index 4.0 Troponin I <0.012 (0.000-0.034) ng/mL Total Protein 7.1 (6.3-8.2) g/dL Albumin 4.2 (3.5-5.0) g/dL 10/14/16 Range/Units 09:20 WBC (3.8-10.6) k/uL RBC (4.30-5.90) m/uL Hgb (13.0-17.5) gm/dL Hct (39.0-53.0) % MCV (80.0-100.0) fL MCH (25.0-35.0) pg MCHC (31.0-37.0) g/dL RDW (11.5-15.5) % Plt Count (150-450) k/uL Neutrophils % % Lymphocytes % % Monocytes % % Eosinophils % % Basophils % % Neutrophils # (1.3-7.7) k/uL Lymphocytes # (1.0-4.8) k/uL Monocytes # (0-1.0) k/uL Eosinophils # (0-0.7) k/uL Basophils # (0-0.2) k/uL D-Dimer 0.36 (<0.60) mg/L FEU Sodium (137-145) mmol/L Potassium (3.5-5.1) mmol/L Chloride (98-107) mmol/L Carbon Dioxide (22-30) mmol/L Anion Gap mmol/L BUN (9-20) mg/dL Creatinine (0.66-1.25) mg/dL Est GFR (MDRD) Af Amer (>60 ml/min/1.73 sqM) Est GFR (MDRD) Non-Af (>60 ml/min/1.73 sqM) Glucose (74-99) mg/dL Calcium (8.4-10.2) mg/dL Total Bilirubin (0.2-1.3) mg/dL AST (17-59) U/L ALT (21-72) U/L Alkaline Phosphatase (38-126) U/L Total Creatine Kinase (55-170) U/L CK-MB (CK-2) (0.0-2.4) ng/mL CK-MB (CK-2) Rel Index Troponin I (0.000-0.034) ng/mL Total Protein (6.3-8.2) g/dL Albumin (3.5-5.0) g/dL - EKG Data -: EKG Interpreted by [facility] EKG shows normal: sinus rhythm, intervals (Normal), QRS complexes (Normal), ST- T waves (Normal) Rate: normal (Rate 98 bpm) Interpretation: other (Right atrial enlargement) Disposition Clinical Impression: COPD (chronic obstructive pulmonary disease), Pneumonia Disposition: HOME SELF-CARE Condition: Fair Instructions: Pneumonia (ED), COPD (Chronic Obstructive Pulmonary Disease) (ED) Prescriptions: Albuterol Inhaler [Ventolin Hfa Inhaler] 1 - 2 puff INHALATION Q6HR PRN #1 inhaler PRN Reason: Wheezing Levofloxacin [Levaquin] 500 mg PO DAILY #7 tab predniSONE 60 mg PO DAILY #30 tab Referrals: Urszula Carrasco MD [Primary Care Provider] - 1-2 days
[2016-10-14 10:15] LABS: ALT 32 U/L (21-72); AST 33 U/L (17-59); Alkaline Phosphatase 63 U/L (38-126); Anion Gap 10 mmol/L; Blood Urea Nitrogen 9 mg/dL (9-20); Calcium 9.5 mg/dL (8.4-10.2); Carbon Dioxide 26 mmol/L (22-30); Chloride 101 mmol/L (98-107); Glucose 79 mg/dL (74-99); Non-African American GFR(MDRD) >60 (>60 ml/min/1.73 sqM); Potassium 4.6 mmol/L (3.5-5.1); Sodium 137 mmol/L (137-145); Total Bilirubin 1.1 mg/dL (0.2-1.3); Total Protein 7.1 g/dL (6.3-8.2)
[2016-10-14 10:17] LABS: Basophils # (A) 0.1 k/uL (0-0.2); Basophils % (A) 1 %; CH 34.6; CHCM 34.1; Eosinophils # (A) 0.2 k/uL (0-0.7); Eosinophils % (A) 3 %; HCT 51.2 % (39.0-53.0); HDW 2.13; HGB 17.1 gm/dL (13.0-17.5); Luc # (Auto) 0.22; Luc % (Auto) 3; Lymphocytes # (A) 1.5 k/uL (1.0-4.8); Lymphocytes % (A) 21 %; MCH 33.9 pg (25.0-35.0); MCHC 33.3 g/dL (31.0-37.0); MCV 101.7 fL (80.0-100.0); Mean Platelet Volume 6.8; Monocytes # (A) 0.5 k/uL (0-1.0); Monocytes % (A) 7 %; Neutrophils # (A) 4.7 k/uL (1.3-7.7); Neutrophils % (A) 66 %; RBC 5.04 m/uL (4.30-5.90); RDW 12.6 % (11.5-15.5); WBC 7.1 k/uL (3.8-10.6); WBC (Perox) 7.06
[2016-10-14 10:26] LABS: Creatine Kinase 103 U/L (55-170)
[2016-10-14 10:38] LABS: Troponin I <0.012 ng/mL (0.000-0.034)
[2016-10-14 10:41] LABS: Creatine Kinase MB 4.1 ng/mL (0.0-2.4)
[2016-10-14] MEDS ORDERED: HYDROcodone/APAP 5-325MG 1 EACH TAB PO STA (10:49)
--- NOTE | 2016-10-14 10:54 | XR ---
EXAMINATION TYPE: XR chest 2V DATE OF EXAM: 10/14/2016 10:48 AM COMPARISON: 10/03/2016 HISTORY: 56-year-old male difficulty breathing TECHNIQUE: PA and lateral views FINDINGS: Heart is normal size. Aorta and pulmonary vasculature within normal limits. Diffuse interstitial prom inence and hyperinflation redemonstrated. Continued focal opacity left mid lung. IMPRESSION: COPD with residual left midlung infiltrate. No new infiltrate seen.
[2016-10-14] MEDS ORDERED: LEVOFLOXACIN 750 MG TAB PO STA (12:52)
[2016-10-14 13:38] VITALS: PULSE 92
[2016-10-14 13:52] VITALS: BP 136/80; TEMP 97.5
== END 2016-10-14 14:00 | disposition home or self-care (01) ==
LOC: EC 09:00
DX: J44.9 Chronic obstructive pulmonary disease, unspecified (principal); J18.9 Pneumonia, unspecified organism; I10 Essential (primary) hypertension; Z79.899 Other long term (current) drug therapy; Z88.6 Allergy status to analgesic agent; Z88.5 Allergy status to narcotic agent; Z88.8 Allergy status to other drugs, medicaments and biological substances; Z86.73 Personal history of transient ischemic attack (TIA), and cerebral infarction without residual deficits; I25.2 Old myocardial infarction; Z87.891 Personal history of nicotine dependence
CPT/HCPCS: 36415; 94640 ×2; 93005; 85379; 80053; 82550; 82553; 84484; 85025; 71020; 99285; J7512

== ENCOUNTER 2016-11-08 18:22 | Inpatient (IN) | payer OTHER ==
[2016-11-08] MEDS ORDERED: methylPREDNISolone SOD SUCCI 125 MG/2 ML VIAL IV STA (18:38)
[2016-11-08] MEDS ORDERED: IPRATROPIUM-ALBUTEROL 3 ML NEB INHALATION STA (18:38)
[2016-11-08] MEDS ORDERED: SODIUM CHLORIDE 0.9% 1,000 ML IV STA ×2 (18:38)
--- NOTE | 2016-11-08 18:42 | ED ---
SOB HPI - General Chief Complaint: Shortness of Breath Stated Complaint: copd, vinay Time Seen by Provider: 11/08/16 18:32 Source: patient, RN notes reviewed Mode of arrival: ambulatory Limitations: no limitations - History of Present Illness Initial Comments: Patient is a 56-year-old male with a long-standing history of COPD and pneumonia. Patient reports that he was seen by his primary care doctor earlier today and since then he has became progressively worse of difficulty breathing. Patient reports he has chronic chest pain. He states this is no different at this time from his previous chest pains. Patient reports that he has done one breathing treatment at home but then has still not help was difficulty in breathing. Patient states that he has completed a steroid from his recent admission to the hospital on Saturday. Patient states that he was admitted on October 28 and was kept here for approximately 4 days. Patient denies any recent fever or chills. He reports that he currently lives in a [facility]. He drinks approximately 2-3 beers a day. - Related Data Home Medications Medication Instructions Recorded Confirmed amLODIPine [Norvasc] 10 mg PO DAILY 02/07/15 11/08/16 levETIRAcetam [Keppra] 500 mg PO QAM 02/07/15 11/08/16 Albuterol Sulfate [Ventolin HFA] 2 puff INHALATION RT-Q4H PRN 03/31/15 11/08/16 Albuterol Nebulized [Ventolin 2.5 mg INHALATION RT-QID PRN 10/14/16 11/08/16 Nebulized] Previous Rx's Medication Instructions Recorded Budesonide-Formot 160-4.5 Mcg 2 puff INHALATION RT-BID #1 puff 07/08/15 [Symbicort 160-4.5 Mcg Inhaler] Acetaminophen Tab [Tylenol Tab] 650 mg PO Q6H PRN #30 tablet 11/01/16 Doxycycline [Vibramycin] 100 mg PO BID #14 cap 11/01/16 guaiFENesin SYRUP 100MG/5ML 200 mg PO Q4H PRN #100 cup 11/01/16 [Robitussin] Allergies Allergy/AdvReac Type Severity Reaction Status Date / Time aspirin Allergy Unknown Verified 11/08/16 18:48 morphine Allergy Rash/Hives Verified 11/08/16 18:48 NSAIDS (Non-Steroidal Allergy Unknown Verified 11/08/16 18:48 Anti-Inflamma Review of Systems ROS Statement: Those systems with pertinent positive or pertinent negative responses have been documented in the HPI. ROS Other: All systems not noted in ROS Statement are negative. 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,PER PAST MEDICAL HX NOTED C2 fracture(FROM [facility]-NOT ABLE TO CONFIRM WITH PT), Osteoarthritis, DJD, "FROZEN SHOULDER SYNDROME (RT)" , MD-PT STATED IN THE Last Myocardial Infarction Date:: unknown History of Any Multi-Drug Resistant Organisms: None Reported Past Surgical History: Orthopedic Surgery Additional Past Surgical History / Comment(s): neck fx, metal plate left hand middle finger Past Anesthesia/Blood Transfusion Reactions: No Reported Reaction Past Psychological History: No Psychological Hx Reported Additional Psychological History / Comment(s): 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 - Past Family History Mother Family Medical History: Cancer Additional Family Medical History / Comment(s): Pt believes his Mom of Kidney Ca, but not 100% sure. Father Family Medical History: Cancer, Respiratory Disorder Additional Family Medical History / Comment(s): Melonoma General Exam - General Exam Comments Initial Comments: D6-year-old male. Patient does appear to be short of breath. Limitations: no limitations General appearance: alert, in no apparent distress Head exam: Present: atraumatic, normocephalic, normal inspection Eye exam: Present: normal appearance, PERRL, EOMI. Absent: scleral icterus, conjunctival injection, periorbital swelling ENT exam: Present: normal exam, mucous membranes moist Neck exam: Present: normal inspection. Absent: tenderness, meningismus, lymphadenopathy Respiratory exam: Present: wheezes (Bilateral wheezing). Absent: normal lung sounds bilaterally, respiratory distress, rales, rhonchi, stridor Cardiovascular Exam: Present: regular rate, normal rhythm, normal heart sounds. Absent: systolic murmur, diastolic murmur, rubs, gallop, clicks GI/Abdominal exam: Present: soft, normal bowel sounds. Absent: distended, tenderness, guarding, rebound, rigid Extremities exam: Present: normal inspection, full ROM, normal capillary refill. Absent: tenderness, pedal edema, joint swelling, calf tenderness Back exam: Present: normal inspection, full ROM Neurological exam: Present: alert, oriented X3, CN II-XII intact Psychiatric exam: Present: normal affect, normal mood Skin exam: Present: warm, dry, intact, normal color. Absent: rash Course Vital Signs 11/08/16 11/08/16 11/08/16 18:26 19:01 19:11 Temperature 97.0 F L Pulse Rate 99 94 Respiratory 22 20 Rate Blood Pressure 144/80 O2 Sat by Pulse 97 Oximetry 11/08/16 11/08/16 19:20 20:09 Temperature 97.6 F Pulse Rate 98 90 Respiratory 18 Rate Blood Pressure 120/79 O2 Sat by Pulse 95 Oximetry Medical Decision Making - Medical Decision Making Patient is a 56-year-old male chief complaint of difficulty breathing for the past few hours. Patient was given IV Solu-Medrol and breathing treatment. He does report some mild improvement of his difficulty breathing. He is able to speak in full sentences. Patient's lab work is also reviewed and he does have mild leukocytosis of 13. This could be related to his chronic steroid use. I discussed the case with Dr. Trujillo. He recommends admission. Patient also agrees that he wanted to be admitted and feels more comfortable with that. Patient will be given IV steroids and breathing treatments. Patient agrees with the treatment plan will comply. Chest x-ray shows no evidence of any acute process. - Lab Data Result diagrams: 11/08/16 18:45 11/08/16 18:45 Lab Results 11/08/16 11/08/16 11/08/16 Range/Units 18:45 18:45 18:45 WBC 13.0 H (3.8-10.6) k/uL RBC 5.14 (4.30-5.90) m/uL Hgb 17.5 (13.0-17.5) gm/dL Hct 52.2 (39.0-53.0) % MCV 101.5 H (80.0-100.0) fL MCH 34.1 (25.0-35.0) pg MCHC 33.6 (31.0-37.0) g/dL RDW 12.6 (11.5-15.5) % Plt Count 335 (150-450) k/uL Neutrophils % 80 % Lymphocytes % 13 % Monocytes % 5 % Eosinophils % 1 % Basophils % 0 % Neutrophils # 10.3 H (1.3-7.7) k/uL Lymphocytes # 1.7 (1.0-4.8) k/uL Monocytes # 0.6 (0-1.0) k/uL Eosinophils # 0.1 (0-0.7) k/uL Basophils # 0.0 (0-0.2) k/uL PT (9.0-12.0) sec INR (<1.1) APTT (22.0-30.0) sec D-Dimer (<0.60) mg/L FEU Sodium 139 (137-145) mmol/L Potassium 4.2 (3.5-5.1) mmol/L Chloride 103 (98-107) mmol/L Carbon Dioxide 25 (22-30) mmol/L Anion Gap 11 mmol/L BUN 17 (9-20) mg/dL Creatinine 0.64 L (0.66-1.25) mg/dL Est GFR (MDRD) Af Amer >60 (>60 ml/min/1.73 sqM) Est GFR (MDRD) Non-Af >60 (>60 ml/min/1.73 sqM) Glucose 69 L (74-99) mg/dL Calcium 9.9 (8.4-10.2) mg/dL Magnesium 1.9 (1.6-2.3) mg/dL Total Bilirubin 0.8 (0.2-1.3) mg/dL AST 26 (17-59) U/L ALT 40 (21-72) U/L Alkaline Phosphatase 55 (38-126) U/L Total Creatine Kinase 48 L (55-170) U/L CK-MB (CK-2) 3.4 H* (0.0-2.4) ng/mL CK-MB (CK-2) Rel Index 7.1 Troponin I <0.012 (0.000-0.034) ng/mL NT-Pro-B Natriuret Pep pg/mL Total Protein 7.3 (6.3-8.2) g/dL Albumin 4.5 (3.5-5.0) g/dL 11/08/16 11/08/16 Range/Units 18:45 18:45 WBC (3.8-10.6) k/uL RBC (4.30-5.90) m/uL Hgb (13.0-17.5) gm/dL Hct (39.0-53.0) % MCV (80.0-100.0) fL MCH (25.0-35.0) pg MCHC (31.0-37.0) g/dL RDW (11.5-15.5) % Plt Count (150-450) k/uL Neutrophils % % Lymphocytes % % Monocytes % % Eosinophils % % Basophils % % Neutrophils # (1.3-7.7) k/uL Lymphocytes # (1.0-4.8) k/uL Monocytes # (0-1.0) k/uL Eosinophils # (0-0.7) k/uL Basophils # (0-0.2) k/uL PT 10.0 (9.0-12.0) sec INR 1.0 (<1.1) APTT 23.2 (22.0-30.0) sec D-Dimer 0.28 (<0.60) mg/L FEU Sodium (137-145) mmol/L Potassium (3.5-5.1) mmol/L Chloride (98-107) mmol/L Carbon Dioxide (22-30) mmol/L Anion Gap mmol/L BUN (9-20) mg/dL Creatinine (0.66-1.25) mg/dL Est GFR (MDRD) Af Amer (>60 ml/min/1.73 sqM) Est GFR (MDRD) Non-Af (>60 ml/min/1.73 sqM) Glucose (74-99) mg/dL Calcium (8.4-10.2) mg/dL Magnesium (1.6-2.3) mg/dL Total Bilirubin (0.2-1.3) mg/dL AST (17-59) U/L ALT (21-72) U/L Alkaline Phosphatase (38-126) U/L Total Creatine Kinase (55-170) U/L CK-MB (CK-2) (0.0-2.4) ng/mL CK-MB (CK-2) Rel Index Troponin I (0.000-0.034) ng/mL NT-Pro-B Natriuret Pep 42 pg/mL Total Protein (6.3-8.2) g/dL Albumin (3.5-5.0) g/dL - Radiology Data Radiology results: report reviewed Chest x-ray was reviewed and was negative for any acute process. Disposition Clinical Impression: Chronic chest pain, COPD exacerbation Disposition: ADMITTED IP TO THIS [facility] Condition: Stable Time of Disposition: 20:14
[2016-11-08 19:03] LABS: Basophils % (A) 0 %; CH 34.6; CHCM 34.2; Eosinophils # (A) 0.1 k/uL (0-0.7); Eosinophils % (A) 1 %; HCT 52.2 % (39.0-53.0); HDW 2.18; HGB 17.5 gm/dL (13.0-17.5); Luc # (Auto) 0.18; Luc % (Auto) 1; Lymphocytes # (A) 1.7 k/uL (1.0-4.8); Lymphocytes % (A) 13 %; MCH 34.1 pg (25.0-35.0); MCHC 33.6 g/dL (31.0-37.0); MCV 101.5 fL (80.0-100.0); Monocytes # (A) 0.6 k/uL (0-1.0); Monocytes % (A) 5 %; Neutrophils # (A) 10.3 k/uL (1.3-7.7); Neutrophils % (A) 80 %; RBC 5.14 m/uL (4.30-5.90); RDW 12.6 % (11.5-15.5); WBC (Perox) 12.61
[2016-11-08 19:14] LABS: ALT 40 U/L (21-72); AST 26 U/L (17-59); Alkaline Phosphatase 55 U/L (38-126); Anion Gap 11 mmol/L; Blood Urea Nitrogen 17 mg/dL (9-20); Calcium 9.9 mg/dL (8.4-10.2); Carbon Dioxide 25 mmol/L (22-30); Chloride 103 mmol/L (98-107); Glucose 69 mg/dL (74-99); Magnesium 1.9 mg/dL (1.6-2.3); Non-African American GFR(MDRD) >60 (>60 ml/min/1.73 sqM); Partial Thromboplastin Time 23.2 sec (22.0-30.0); Potassium 4.2 mmol/L (3.5-5.1); Sodium 139 mmol/L (137-145); Total Bilirubin 0.8 mg/dL (0.2-1.3); Total Protein 7.3 g/dL (6.3-8.2)
[2016-11-08 19:22] LABS: Creatine Kinase 48 U/L (55-170)
--- NOTE | 2016-11-08 19:29 | XR ---
EXAMINATION TYPE: XR chest 2V DATE OF EXAM: 11/08/2016 7:26 PM COMPARISON: NONE HISTORY: COPD and difficulty breathing TECHNIQUE: Frontal and lateral views of the chest are obtained. FINDINGS: Heart and mediastinum are normal. Lungs are clear. Diaphragm is normal. Bony thorax is int act. There are chest leads. IMPRESSION: Normal chest
[2016-11-08 19:35] LABS: Troponin I <0.012 ng/mL (0.000-0.034)
[2016-11-08 19:37] LABS: Creatine Kinase MB 3.4 ng/mL (0.0-2.4)
[2016-11-08] MEDS ORDERED: ALBUTEROL NEBULIZED 2.5 MG/3 ML INHALATION PRN (20:09)
[2016-11-08] MEDS ORDERED: ACETAMINOPHEN TAB 325 MG TAB PO PRN (20:09)
[2016-11-08] MEDS: DOXYCYCLINE 50 MG CAP PO SCH (21:29)
[2016-11-08] MEDS: HYDROcodone/APAP 7.5-325MG 1 EACH TAB PO PRN (21:29)
[2016-11-09] MEDS: methylPREDNISolone SOD SUCCI 125 MG/2 ML VIAL IV SCH ×5 (00:34→23:27)
[2016-11-09 01:17] LABS: Creatine Kinase 37 U/L (55-170)
[2016-11-09 01:29] LABS: Creatine Kinase MB 2.3 ng/mL (0.0-2.4); Troponin I <0.012 ng/mL (0.000-0.034)
[2016-11-09] MEDS: HYDROcodone/APAP 7.5-325MG 1 EACH TAB PO PRN ×4 (03:03→21:43)
[2016-11-09] MEDS: IPRATROPIUM-ALBUTEROL 3 ML NEB INHALATION PRN ×3 (03:44→11:05)
[2016-11-09 07:02] LABS: Glucose,Whole Blood 144 mg/dL (75-99)
[2016-11-09 07:46] LABS: Creatine Kinase 35 U/L (55-170)
[2016-11-09 07:59] LABS: Troponin I <0.012 ng/mL (0.000-0.034)
[2016-11-09] MEDS ORDERED: SYMBICORT 160-4.5 MCG INHALER INHALATION SCH (08:00)
[2016-11-09 08:03] LABS: Creatine Kinase MB 2.8 ng/mL (0.0-2.4)
[2016-11-09] MEDS: levETIRAcetam 500 MG TAB PO SCH (08:23)
[2016-11-09] MEDS: DOXYCYCLINE 50 MG CAP PO SCH ×2 (08:23→21:41)
[2016-11-09] MEDS: amLODIPine 10 MG TAB PO SCH (08:23)
[2016-11-09] MEDS: guaiFENesin SYRUP 100MG/5ML 200 MG/10 ML CUP PO PRN ×4 (08:30→21:42)
[2016-11-09] MEDS: IPRATROPIUM-ALBUTEROL 3 ML NEB INHALATION SCH ×3 (11:05→20:15)
[2016-11-09 11:57] LABS: Glucose,Whole Blood 175 mg/dL (75-99)
[2016-11-09] MEDS: INSULIN LISPRO (humaLOG) 300 UNIT/3 ML VIAL SQ SCH ×3 (13:11→21:42)
[2016-11-09] MEDS ORDERED: HYDROcodone/APAP 5-325MG 1 EACH TAB PO PRN (16:30)
[2016-11-09] MEDS ORDERED: TEMAZEPAM 15 MG CAP PO PRN (16:30)
--- NOTE | 2016-11-09 16:48 | CONS ---
DATE OF CONSULTATION: 11/09/2016. HISTORY OF PRESENT ILLNESS: The patient is a 56-year-old male who recently been admitted to the hospital for an exacerbation of chronic obstructive pulmonary disease and just finished up steroids. Patient states that he started experiencing worsening shortness of breath with worsening chest pain, which is chronic. However it got worse as well. Patient complained he is feeling more weak than normal, however, he has had a generalized weakness for 2 years since he had a stroke. The patient also states he had a low grade fever, always has chills and had a dry, nonproductive cough; subsequently came to the emergency room and was admitted for further evaluation and treatment. PAST MEDICAL HISTORY: Positive for COPD, CVA, TIA, GERD, hypertension, pneumonia, osteoarthritis, degenerative joint disease, back fracture, frozen shoulder syndrome and myocardial infarction in the s. PAST SURGICAL HISTORY: Patient had repair of his left middle finger with a metal plate. ALLERGIES INCLUDE ASPIRIN, MORPHINE AND NSAIDS, however, patient's does state he had morphine when he was in EMS were last summer and did fine. Medications the patient is on at home include: 1. Norvasc 10 mg p.o. daily. 2. Keppra 500 mg p.o. in the morning. . 3. Ventolin HFA 2 puffs q.4 hours p.r.n. 4. Albuterol via nebulizer q.i.d. and p.r.n. Previous prescriptions the patient received at his discharge on November 01: 1. Tylenol 650 q.6 hours p.r.n. 2. Vibramycin 100 mg p.o. b.i.d. for one week. 3. Robitussin 200 mg q.4 hours p.r.n. FAMILY HISTORY: Father in his 50s from emphysema. Mother in her 90s of liver cancer. SOCIAL HISTORY: The patient does have a history of smoking, quit 6 months ago, prior to that, smoked 1/2 pack per day for 40 years, does admit drinking an occasional beer. However, the ER notes says the patient drinks 2 to 3 beers a day. Patient denies any illicit drug use. He is not currently working. He is looking for employment. REVIEW OF SYSTEMS: GENERAL: Negative for any recent weight gain or weight loss. Patient does complain of chills. States he is always cold. HEENT: Positive for intermittent headaches since he has had his cerebrovascular accident. Also has some intermittent blurred vision. Denies any difficulty hearing. Denies any sore throat. Does complain of some history of seasonal allergies. Denies any difficulty swallowing. RESPIRATORY: Positive for worsening shortness of breath with a chronic dry cough. CARDIOVASCULAR: Positive for left-sided musculoskeletal type chest pain. GI: Negative for abdominal pain, nausea, vomiting, diarrhea, or constipation. : Negative for any dysuria or hematuria. ENDOCRINE: Negative for diabetes mellitus or thyroid disease. MUSCULOSKELETAL: Positive for joint pain especially in his hands. Psychiatric is positive for depression. NEUROLOGIC: The patient denies any history of seizures, however, does state that he was put on Keppra after his stroke because he was told seizures were a possibility. On physical exam, vital signs show temp is 97.8, heart rate is 96, respiratory rate 16, blood pressure is 121/77, oxygen saturation 97% on room air. HEENT: Head is normocephalic, atraumatic. Pupils equal, round, react to light. Ears and nose, no discharge is noted. MOUTH: Moist mucous membranes. Poor oral hygiene. NECK: Supple. Trachea is midline. LUNGS: Sounds are decreased with a prolonged expiratory phase and then end expiratory wheeze. HEART: S1 and S2 are heard. Not tachycardic. ABDOMEN: Soft. Bowel sounds are positive. EXTREMITIES: With no edema. NEUROLOGIC: The patient is alert and oriented x3. LABS: White count is 13.0, hemoglobin 17.5, hematocrit 52.2 with 335,000 platelets. PT is 10.0. INR is 1.0, PTT is 23.2. D-dimer 0.28, sodium is 139, potassium is 4.2, chloride 103, CO2 is 25. Anion gap is 11. BUN 17, creatinine 0.64, glucose is 69. Calcium is 9.9, magnesium is 1.9. Total bilirubin 0.8, AST is 26, ALT is 40, alk phos 55. Total CK is 48, 37 and 35 respectively. CK-MB is 3.4, 2.3 and 2.8 respectively. Relative index 7.1, 6.2 and 8.0 respectively. Troponins less than 0.012 x 3. BNP is 42, total protein 7.3. Albumin is 4.5. Imaging: Chest x-ray shows a normal chest. Lungs are clear. IMPRESSION: 1. Chronic obstructive pulmonary disease with acute exacerbation. 2. Chronic chest pain. 3. History of cerebrovascular accident. PLAN: Oxygen to maintain saturations greater than or equal to 88%, bronchodilators and aerosolized steroids, IV Solu-Medrol 60 mg q.6. We will add Singulair, add Protonix for GI prophylaxis and SCDs for DVT prophylaxis as patient verbalized previous stroke was a bleed. We will add incentive spirometry and pulmonary hygiene and follow the patient closely with you, making further changes as necessary. Thank you for the consultation. I performed a history and physical examination of this patient and discussed the same with the dictator. I agree with the dictator's note. Any additional findings/opinions, etc. will be noted.
[2016-11-09 16:52] LABS: Glucose,Whole Blood 149 mg/dL (75-99)
[2016-11-09] MEDS: PANTOPRAZOLE 40 MG TABLET PO SCH (17:52)
[2016-11-09] MEDS: BUDESONIDE 0.5 MG/2 ML NEBU INHALATION SCH (20:15)
[2016-11-09] MEDS: FORMOTEROL FUMARATE 20 MCG/2 ML NEBU INHALATION SCH (20:15)
--- NOTE | 2016-11-09 20:36 | HP ---
CHIEF COMPLAINT: Shortness of breath. HISTORY OF PRESENT ILLNESS: This 56-year-old gentleman with a past medical history of multiple medical problems, including COPD, CVA, GERD, hypertension, history of pneumonia, history of basal ganglia hemorrhage, being followed by Dr. Urszula Torres in the outpatient setting is complaining of shortness of breath for the past several days. The patient was not feeling well. The patient had recently apparently been admitted to the hospital because the patient became progressively weaker. Patient apparently not smoking, but because of increasing difficulty with shortness of breath, cough and sputum, patient came to [facility] and admitted for further evaluation and treatment last night. Otherwise, chest x-ray did not show any acute abnormality. There is no history of headache, loss of consciousness. PAST MEDICAL HISTORY: COPD, CVA, TIA, GERD, hypertension, history of pneumonia, history of basal ganglia hemorrhage. Medications prior to admission include home medications are: 1. Amlodipine 10 mg p.o. daily. 2. Symbicort 160/4.5, 2 puffs b.i.d. 3. Keppra 500 mg p.o. daily. 4. Robitussin 200 mg q.4 p.r.n. 5. Vibramycin 100 mg b.i.d. 6. Ventolin HFA 2 puffs q.4 p.r.n. 8. Tylenol 650 every 6 hours p.r.n. ALLERGIES: ASPIRIN, MORPHINE, NSAIDS. FAMILY HISTORY: History of cancer in the family, kidney cancer possibly. SOCIAL HISTORY: Previous history of smoking. Occasional alcohol intake. No history of other substance abuse. REVIEW OF SYSTEMS: ENT: No diminished hearing. No diminished vision. CARDIOVASCULAR: No angina or palpitations. RESPIRATORY: No cough. Otherwise mentioned earlier. GI: No nausea. : No dysuria. NERVOUS: No numbness, weakness. ALLERGY/IMMUNOLOGY: No asthma, hay fever. MUSCULOSKELETAL: As mentioned earlier. HEMATOLOGY/ONCOLOGY: No history of Anemia. ENDOCRINE: No history of diabetes, hypothyroidism. CONSTITUTIONAL: As mentioned earlier. DERMATOLOGY: Negative. RHEUMATOLOGY: Negative. PSYCHIATRY: As mentioned earlier. PHYSICAL EXAMINATION: Alert and oriented x3. Pulse is 86, blood pressure is 123/68, respiration 16, temperature 97.8, pulse ox 98% on room air. HEENT: Conjunctivae normal. Oral mucosa moist. NECK: No jugular venous distention. No carotid bruits. No lymph node enlargement. CARDIOVASCULAR SYSTEM: S1 and S2 muffled. No S3. No S4. RESPIRATORY: Breath sounds diminished in the bases. Scattered rhonchi and crackles. Expiratory wheezing also present. Chest emphysematous. ABDOMEN: Soft, nontender, scaphoid. No mass palpable. LEGS: No edema. No swelling. NERVOUS SYSTEM: Higher functions as mentioned. Moves all 4 limbs. No focal motor or sensory deficits. LYMPHATIC: No lymph nodes palpable in neck, axillae or groin. SKIN: No ulcer, rash or bleeding. LABS: WBC 13, hemoglobin 7.3, MCV 101. Otherwise, creatine kinase is 48. Troponins are negative. CK-MB is slightly high. ASSESSMENT: 1. Chronic obstructive pulmonary disease acute exacerbation with acute purulent tracheobronchitis with failure of outpatient treatment. 2. Increased WBC. 3. Increased MCV. 4. History of chronic obstructive pulmonary disease. 5. History of cerebrovascular accident, transient ischemic attack. 6. Gastroesophageal reflux disease. 7. Hypertension, essential. 8. History of pneumonia. 9. History of basal ganglia hemorrhage. 10. History of C2 fracture. 11. History of degenerative joint disease. 12. History of frozen shoulder. 13. Remote history of nicotine dependence. 14. FULL CODE. RECOMMENDATIONS AND DISCUSSION: In this 56-year-old gentleman who presented with multiple complex medical issues, will monitor the patient closely. Continue the current medications and symptomatic treatment. Will optimize the bronchodilator treatment, empiric antibiotics. Pulmonary consultation with Dr. Radha Chester. Otherwise, guarded prognosis because of multiple complex medical issues. Further recommendations to follow. A copy of the dictation is being forwarded to Dr. Urszula Torres, who is the primary physician. FOUR WINDS PSYCHIATRIC HOSPITALEriberto
[2016-11-09 21:03] LABS: Glucose,Whole Blood 168 mg/dL (75-99)
[2016-11-09] MEDS: MONTELUKAST 10 MG TAB PO SCH (21:42)
[2016-11-10] MEDS: IPRATROPIUM-ALBUTEROL 3 ML NEB INHALATION PRN ×3 (00:40→23:50)
[2016-11-10] MEDS: guaiFENesin SYRUP 100MG/5ML 200 MG/10 ML CUP PO PRN ×6 (01:55→23:46)
[2016-11-10] MEDS: HYDROcodone/APAP 7.5-325MG 1 EACH TAB PO PRN ×2 (03:51→10:14)
[2016-11-10] MEDS: methylPREDNISolone SOD SUCCI 125 MG/2 ML VIAL IV SCH ×4 (05:24→23:07)
[2016-11-10 06:53] LABS: Glucose,Whole Blood 124 mg/dL (75-99)
[2016-11-10] MEDS: INSULIN LISPRO (humaLOG) 300 UNIT/3 ML VIAL SQ SCH ×4 (07:11→23:06)
[2016-11-10] MEDS: levETIRAcetam 500 MG TAB PO SCH (07:17)
[2016-11-10] MEDS: PANTOPRAZOLE 40 MG TABLET PO SCH (07:17)
[2016-11-10] MEDS: amLODIPine 10 MG TAB PO SCH (07:19)
[2016-11-10 07:49] LABS: Basophils % (A) 0 %; CH 34.5; Eosinophils % (A) 0 %; HDW 2.16; Luc # (Auto) 0.02; Luc % (Auto) 0; Lymphocytes # (A) 0.2 k/uL (1.0-4.8); Lymphocytes % (A) 1 %; MCHC 33.4 g/dL (31.0-37.0); MCV 101.9 fL (80.0-100.0); Mean Platelet Volume 7.1; Monocytes # (A) 0.2 k/uL (0-1.0); Monocytes % (A) 1 %; Neutrophils % (A) 97 %; RBC 4.22 m/uL (4.30-5.90); RDW 12.5 % (11.5-15.5); WBC 16.4 k/uL (3.8-10.6); WBC (Perox) 16.91
[2016-11-10 07:56] LABS: HGB 14.3 gm/dL (13.0-17.5)
[2016-11-10 07:57] LABS: Anion Gap 10 mmol/L; Blood Urea Nitrogen 10 mg/dL (9-20); Calcium 9.2 mg/dL (8.4-10.2); Carbon Dioxide 22 mmol/L (22-30); Chloride 105 mmol/L (98-107); Glucose 122 mg/dL (74-99); Non-African American GFR(MDRD) >60 (>60 ml/min/1.73 sqM); Potassium 4.2 mmol/L (3.5-5.1); Sodium 137 mmol/L (137-145)
[2016-11-10] MEDS: DOXYCYCLINE 50 MG CAP PO SCH ×2 (08:16→23:06)
[2016-11-10] MEDS: IPRATROPIUM-ALBUTEROL 3 ML NEB INHALATION SCH ×4 (08:29→19:42)
[2016-11-10] MEDS: FORMOTEROL FUMARATE 20 MCG/2 ML NEBU INHALATION SCH ×2 (08:29→19:42)
[2016-11-10 08:30] LABS: Manual Review Performed
[2016-11-10] MEDS: BUDESONIDE 0.5 MG/2 ML NEBU INHALATION SCH (08:30)
[2016-11-10 08:31] LABS: Toxic Granulation Present
[2016-11-10 11:21] LABS: Glucose,Whole Blood 112 mg/dL (75-99)
--- NOTE | 2016-11-10 11:45 | P.PN ---
Subjective Principal diagnosis: Acute exacerbation of COPD Patient seen and examined. Patient states that he is still very short of breath and feels like he can't breathe. He states he is having chills as well. He states he is very frustrated that he is not yet feeling better. Objective - Vital Signs Vital signs: Vital Signs Temp 97.8 F 11/10/16 07:00 Pulse 90 11/10/16 08:41 Resp 18 11/10/16 08:00 BP 132/69 11/10/16 07:00 Pulse Ox 94 L 11/10/16 07:00 Intake & Output 11/09/16 11/10/16 11/10/16 18:59 06:59 18:59 Intake Total 700 Balance 700 Intake: Oral 700 Other: Voiding Method Toilet Toilet Toilet # Voids 2 2 - Exam Gen.: Patient is alert and oriented 3, no acute distress cardiovascular: Regular rate and rhythm S1-S2 Lungs: Diminished breath sounds bilaterally Abdomen: Soft nontender nondistended positive bowel sounds Extremities: No edema - Labs CBC & Chem 7: 11/10/16 07:08 11/10/16 07:08 Labs: Abnormal Lab Results - Last 24 Hours (Table) 11/09/16 11/09/16 11/09/16 Range/Units 11:55 16:51 21:02 WBC (3.8-10.6) k/uL RBC (4.30-5.90) m/uL MCV (80.0-100.0) fL Neutrophils # (1.3-7.7) k/uL Lymphocytes # (1.0-4.8) k/uL Creatinine (0.66-1.25) mg/dL Glucose (74-99) mg/dL POC Glucose (mg/dL) 175 H 149 H 168 H (75-99) mg/dL 11/10/16 11/10/16 11/10/16 Range/Units 06:52 07:08 07:08 WBC 16.4 H (3.8-10.6) k/uL RBC 4.22 L (4.30-5.90) m/uL MCV 101.9 H (80.0-100.0) fL Neutrophils # 16.0 H (1.3-7.7) k/uL Lymphocytes # 0.2 L (1.0-4.8) k/uL Creatinine 0.53 L (0.66-1.25) mg/dL Glucose 122 H (74-99) mg/dL POC Glucose (mg/dL) 124 H (75-99) mg/dL 11/10/16 Range/Units 11:16 WBC (3.8-10.6) k/uL RBC (4.30-5.90) m/uL MCV (80.0-100.0) fL Neutrophils # (1.3-7.7) k/uL Lymphocytes # (1.0-4.8) k/uL Creatinine (0.66-1.25) mg/dL Glucose (74-99) mg/dL POC Glucose (mg/dL) 112 H (75-99) mg/dL Assessment and Plan Plan: Acute exacerbation of COPD Bronchospasm Tracheobronchitis History of CVA Chronic chest pain Emphysema Leukocytosis Tobacco abuse alcohol abuse O2 to maintain saturation greater than equal to 88% Pulmicort - increase to 1 mg BID for now Duo nebs Solu-Medrol Antibiotics: Doxycycline Perforomist Singulair Smoking cessation is highly recommended Incentive spirometry and pulmonary hygiene GI and DVT prophylaxis
[2016-11-10] MEDS: MULTIVITAMINS, THERA 1 EACH TAB PO SCH (12:14)
[2016-11-10] MEDS: FOLIC ACID 1 MG TAB PO SCH (12:14)
--- NOTE | 2016-11-10 15:24 | CONS ---
DATE OF CONSULTATION: Mr. Mallory is a 56-year-old gentleman who is seen for cardiac evaluation. Patient's medical records reviewed. Patient is admitted with increasing shortness of breath. Patient has moderate to severe chronic obstructive pulmonary disease and also has a chronic chest pain syndrome. Patient has been having chest pain continuously but with cough now it is getting worse. Patient was admitted with atypical chest pain. In September he underwent a stress dobutamine echocardiographic study which is negative. There is no definite previous history of myocardial infarction. Patient has a history of hypertension. Patient's medications at home includes: 1. Keppra. 2. Norvasc. 3. Ventolin. 4. Albuterol. Physical examination at present reveals a 56-year-old gentleman who does not appear to be in any acute distress. Patient's heart rate is 90 per minute. Blood pressure is 130/80 millimeters of Hg. Head and HEENT examination is negative. Neck is supple. There is no increase in jugular venous pressure. Both the carotid pulses are felt. There is no bruit. Chest is symmetrical. HEART: The PMI is not felt. First and second heart sounds are normal. There is no evidence of any murmur. Lungs reveal bilateral scattered wheezes. ABDOMEN: Soft. EXTREMITIES: There is no evidence of any leg edema. Patient's 2 troponins are normal and EKG is normal. FINAL IMPRESSION: This patient's chest pains are atypical pain, mostly musculoskeletal chest wall pain. Patient's EKGs and cardiac enzymes are normal. Patient recently had a stress test done which was normal. Symptomatic medical therapy is recommended.
[2016-11-10] MEDS: HYDROcodone/APAP 10-325MG 1 EACH TAB PO PRN ×2 (16:34→23:07)
[2016-11-10 17:15] LABS: Glucose,Whole Blood 133 mg/dL (75-99)
[2016-11-10] MEDS: BUDESONIDE 1 MG/2 ML NEBU INHALATION SCH (19:42)
[2016-11-10 22:43] LABS: Glucose,Whole Blood 135 mg/dL (75-99)
[2016-11-10] MEDS: MONTELUKAST 10 MG TAB PO SCH (23:07)
[2016-11-11] MEDS: guaiFENesin SYRUP 100MG/5ML 200 MG/10 ML CUP PO PRN ×5 (03:59→22:39)
[2016-11-11] MEDS: IPRATROPIUM-ALBUTEROL 3 ML NEB INHALATION PRN (04:07)
[2016-11-11] MEDS: HYDROcodone/APAP 10-325MG 1 EACH TAB PO PRN ×4 (05:24→21:16)
[2016-11-11] MEDS: methylPREDNISolone SOD SUCCI 125 MG/2 ML VIAL IV SCH ×4 (05:24→23:37)
[2016-11-11] MEDS: levETIRAcetam 500 MG TAB PO SCH (07:20)
[2016-11-11] MEDS: DOXYCYCLINE 50 MG CAP PO SCH ×2 (07:20→20:14)
[2016-11-11] MEDS: PANTOPRAZOLE 40 MG TABLET PO SCH (07:21)
[2016-11-11 07:24] LABS: Glucose,Whole Blood 120 mg/dL (75-99)
[2016-11-11] MEDS: INSULIN LISPRO (humaLOG) 300 UNIT/3 ML VIAL SQ SCH ×4 (07:25→20:14)
[2016-11-11 08:10] LABS: Basophils % (A) 0 %; CH 34.3; CHCM 33.7; Eosinophils % (A) 0 %; HCT 42.4 % (39.0-53.0); HGB 13.9 gm/dL (13.0-17.5); Luc # (Auto) 0.03; Luc % (Auto) 0; Lymphocytes # (A) 0.1 k/uL (1.0-4.8); Lymphocytes % (A) 1 %; MCH 33.6 pg (25.0-35.0); MCHC 32.9 g/dL (31.0-37.0); MCV 102.2 fL (80.0-100.0); Macrocytosis Slight; Mean Platelet Volume 7.2; Monocytes # (A) 0.3 k/uL (0-1.0); Monocytes % (A) 2 %; Neutrophils # (A) 15.1 k/uL (1.3-7.7); Neutrophils % (A) 97 %; RBC 4.15 m/uL (4.30-5.90); RDW 12.7 % (11.5-15.5); WBC 15.6 k/uL (3.8-10.6); WBC (Perox) 16.53
[2016-11-11 08:19] LABS: Anion Gap 8 mmol/L; Blood Urea Nitrogen 12 mg/dL (9-20); Calcium 9.2 mg/dL (8.4-10.2); Carbon Dioxide 28 mmol/L (22-30); Chloride 102 mmol/L (98-107); Glucose 100 mg/dL (74-99); Non-African American GFR(MDRD) >60 (>60 ml/min/1.73 sqM); Sodium 138 mmol/L (137-145)
[2016-11-11] MEDS: BUDESONIDE 1 MG/2 ML NEBU INHALATION SCH ×2 (09:07→20:22)
[2016-11-11] MEDS: FORMOTEROL FUMARATE 20 MCG/2 ML NEBU INHALATION SCH ×2 (09:07→20:22)
[2016-11-11] MEDS: IPRATROPIUM-ALBUTEROL 3 ML NEB INHALATION SCH ×4 (09:07→20:22)
[2016-11-11 10:09] LABS: Manual Review Performed; Toxic Granulation Present
[2016-11-11] MEDS: amLODIPine 10 MG TAB PO SCH (11:02)
[2016-11-11 11:14] LABS: Glucose,Whole Blood 138 mg/dL (75-99)
--- NOTE | 2016-11-11 11:14 | PN ---
DATE OF SERVICE: 11/10/2016 This is a 56-year-old gentleman who was admitted with COPD acute exacerbation with acute purulent tracheobronchitis with failure of outpatient treatment, has improved significantly. No chest pain or palpitation, no fever. Still short of breath. On exam, alert and oriented x2. Pulse is 90, blood pressure is 115/60, respiration 18, temperature is 97.8, pulse ox 91% on room air. HEENT: Conjunctivae normal. NECK: No jugular venous distension. CARDIOVASCULAR SYSTEM: S1, S2, muffled. RESPIRATORY: Breath sounds diminished at the bases, a few scattered rhonchi, no crackles. Abdomen is soft, nontender. EXTREMITIES: Legs no edema, no swelling. NERVOUS SYSTEM: No focal deficits LABS: WBC is 16.4, hemoglobin is 14.3. Accu-Cheks are noted. ASSESSMENT: 1. Chronic obstructive pulmonary disease acute exacerbation, with acute purulent tracheobronchitis with failure of outpatient treatment. 2. Increased WBC. 3. Increased MCV. 4. History of chronic obstructive pulmonary disease. 5. History of cerebrovascular accident, transient ischemic attack. 6. Gastroesophageal reflux disease. 7. Hypertension, essential. 8. History of pneumonia. 9. History of basal ganglia hemorrhage. 10. History of C2 fracture. 11. History of degenerative joint disease. 12. History of frozen shoulder. 13. Remote history nicotine dependence. 14. FULL CODE. RECOMMENDATION: Recommend to continue with the current medication. Continue with the monitoring and symptomatic treatment. Otherwise, at this time I would recommend continue with the IV steroids, continue with bronchodilators, await Pulmonary evaluation. Guarded prognosis because of multiple complex medical issues and further recommendations to follow.
[2016-11-11] MEDS: FOLIC ACID 1 MG TAB PO SCH (11:19)
[2016-11-11] MEDS: MULTIVITAMINS, THERA 1 EACH TAB PO SCH (11:20)
--- NOTE | 2016-11-11 12:35 | PN ---
Mr. Junior Mallory is a 56-year-old with end-stage lung disease secondary to severe chronic obstructive pulmonary disease, emphysema. He remains short of breath. Has intermittent cough but severity has improved. He has a history of end-stage lung disease secondary to severe chronic obstructive pulmonary disease and emphysema. He is doing slightly better but gets short of breath easily. Blood pressure 150/70, respiratory rate 16, pulse 87, temperature 97, sating 98% on 2 liters oxygen. HEENT: Unremarkable. NECK: Supple. LUNGS: Good air entry bilaterally. HEART: Regular rate and rhythm. ABDOMEN: Soft. NEUROLOGICAL EXAMINATION: Otherwise, awake and alert. On forced expiration, fine wheezing present. Labs are reviewed. Medications reviewed as well. Patient is currently on DuoNeb unit dose updraft 4 times a day, amlodipine 10 mg daily, Pulmicort 1 mg 2 times a day, doxycycline, folic acid, Perforomist, guaifenesin, Solu-Medrol 60 every12 hours, Singulair 10 mg daily, Protonix and Restoril. Culture results and reports are reviewed. Laboratory data reviewed as well. IMPRESSION: 1. Acute chronic obstructive pulmonary disease exacerbation. 2. Purulent tracheobronchitis. 3. Severe chronic obstructive pulmonary disease and emphysema. 4. History of cerebrovascular accident in the past. 5. History of smoking and nicotine use. 6. Alcohol consumption. PLAN AND RECOMMENDATIONS: A above. Continue supportive care. Antibiotics, breathing treatments. Follow clinical course closely.
[2016-11-11 17:08] LABS: Glucose,Whole Blood 116 mg/dL (75-99)
[2016-11-11] MEDS: MONTELUKAST 10 MG TAB PO SCH (20:14)
[2016-11-11 20:16] LABS: Glucose,Whole Blood 122 mg/dL (75-99)
--- NOTE | 2016-11-11 21:22 | PN ---
DATE OF SERVICE: 11/11/2016 This 56-year-old gentleman who was admitted with COPD acute exacerbation with acute purulent tracheobronchitis with failure of outpatient treatment is being closely monitored. No chest pain. No palpitations. No fever. On exam, alert and oriented times three. Pulse 89, blood pressure 144/70, respiratory rate 17, temperature 97.7, pulse ox 97% on room air. HEENT: Conjunctivae normal. NECK: No jugular venous distention. CARDIOVASCULAR: S1, S2 muffled. RESPIRATORY: Breath sounds diminished at the bases. Bilateral scattered rhonchi and crackles. ABDOMEN: Soft. Nontender. LEGS: No edema. No swelling. Nervous system: No focal deficits. LABS: WBC 15.6, hemoglobin 13.9, glucose noted. ASSESSMENT: 1. Chronic obstructive pulmonary disease acute exacerbation with acute purulent tracheobronchitis with failure of outpatient treatment. 2. Increased WBC. 3. Increased MCV. 4. Chronic obstructive pulmonary disease. 5. History of cerebrovascular accident, transient ischemic attack. 6. Gastroesophageal reflux disease. 7. Hypertension, essential. 8. History of pneumonia. 9. History of basal ganglion hemorrhage. 10. History of C2 fracture. 11. History of degenerative joint disease . 12. History of frozen shoulder. 13. Remote history of nicotine dependence. 14. FULL CODE. RECOMMENDATIONS AND DISCUSSION: Recommend to continue current medications, continue with monitoring, symptomatic treatment. Follow closely with pulmonary. Bronchodilators, antibiotics and steroids. Guarded prognosis. Further recommendations to follow.
[2016-11-11] MEDS: LORazepam 0.5 MG TAB PO PRN (22:39)
[2016-11-12] MEDS: guaiFENesin SYRUP 100MG/5ML 200 MG/10 ML CUP PO PRN ×5 (02:55→20:26)
[2016-11-12] MEDS: HYDROcodone/APAP 10-325MG 1 EACH TAB PO PRN ×4 (02:56→21:35)
[2016-11-12] MEDS: methylPREDNISolone SOD SUCCI 125 MG/2 ML VIAL IV SCH ×2 (05:08→11:28)
[2016-11-12] MEDS: IPRATROPIUM-ALBUTEROL 3 ML NEB INHALATION SCH ×4 (06:16→19:20)
[2016-11-12] MEDS: FORMOTEROL FUMARATE 20 MCG/2 ML NEBU INHALATION SCH ×2 (06:19→19:20)
[2016-11-12] MEDS: BUDESONIDE 1 MG/2 ML NEBU INHALATION SCH (06:19)
[2016-11-12 06:55] LABS: Glucose,Whole Blood 96 mg/dL (75-99)
[2016-11-12] MEDS: INSULIN LISPRO (humaLOG) 300 UNIT/3 ML VIAL SQ SCH ×4 (07:40→21:12)
[2016-11-12] MEDS: DOXYCYCLINE 50 MG CAP PO SCH ×2 (07:42→20:26)
[2016-11-12] MEDS: PANTOPRAZOLE 40 MG TABLET PO SCH (07:42)
[2016-11-12] MEDS: levETIRAcetam 500 MG TAB PO SCH (07:42)
[2016-11-12] MEDS: amLODIPine 10 MG TAB PO SCH (07:43)
[2016-11-12 08:46] LABS: Basophils % (A) 0 %; CH 34.2; CHCM 33.9; Eosinophils % (A) 0 %; HCT 42.5 % (39.0-53.0); HDW 2.16; HGB 14.5 gm/dL (13.0-17.5); Luc # (Auto) 0.03; Luc % (Auto) 0; Lymphocytes # (A) 0.1 k/uL (1.0-4.8); Lymphocytes % (A) 1 %; MCH 34.5 pg (25.0-35.0); MCHC 34.1 g/dL (31.0-37.0); MCV 101.2 fL (80.0-100.0); Mean Platelet Volume 7.1; Monocytes # (A) 0.2 k/uL (0-1.0); Monocytes % (A) 2 %; Neutrophils # (A) 12.8 k/uL (1.3-7.7); Neutrophils % (A) 97 %; RDW 12.5 % (11.5-15.5); WBC 13.3 k/uL (3.8-10.6); WBC (Perox) 14.49
[2016-11-12 09:03] LABS: Anion Gap 8 mmol/L; Blood Urea Nitrogen 14 mg/dL (9-20); Calcium 9.2 mg/dL (8.4-10.2); Carbon Dioxide 30 mmol/L (22-30); Chloride 99 mmol/L (98-107); Glucose 92 mg/dL (74-99); Non-African American GFR(MDRD) >60 (>60 ml/min/1.73 sqM); Sodium 137 mmol/L (137-145)
[2016-11-12 10:26] LABS: Manual Review Performed
[2016-11-12] MEDS: FOLIC ACID 1 MG TAB PO SCH (11:28)
[2016-11-12] MEDS: MULTIVITAMINS, THERA 1 EACH TAB PO SCH (11:28)
[2016-11-12 11:56] LABS: Glucose,Whole Blood 102 mg/dL (75-99)
--- NOTE | 2016-11-12 15:52 | P.PN ---
Subjective Date of service 11/12/2016 Progress note being dictated for Dr. Cano. Interval history: This a 56-year-old gentleman admitted with acute COPD exacerbation, purulent tracheobronchitis,, failed outpatient treatment and multiple other medical issues. Maintained on nebulized bronchodilators, systemic steroids and antibiotics. Complains of exertional shortness of breath. Good diet intake with no nausea or vomiting. Denies chest pain, palpitations. Afebrile. Objective - Vital Signs Vital signs: Vital Signs Temp 97.5 F L 11/12/16 07:00 Pulse 94 11/12/16 15:37 Resp 16 11/12/16 11:06 BP 146/80 11/12/16 07:00 Pulse Ox 94 L 11/12/16 07:00 Intake & Output 11/11/16 11/12/16 11/12/16 18:59 06:59 18:59 Intake Total 2437 263 5349 Balance 1142 021 2121 Weight 65.317 kg Intake: Oral 3836 245 0796 Other: Voiding Method Toilet Toilet Toilet # Voids 1 1 2 - Exam PHYSICAL EXAM: VITAL SIGNS: As above GENERAL: [Sitting up in bed, no acute distress] HEENT: [Pupils equal conjunctiva normal.] NECK: [Supple, no JVD] RESPIRATORY EFFORT:[Normal] LUNGS: [Bilateral bases diminished, scattered rhonchi and crackles throughout] CARDIOVASCULAR[regular S1 and S2, no edema] GI: [Abdomen soft, nontender, positive bowel sounds.] PSYCH: [Alert and oriented -3, mood and affect normal.] NEURO: No focal deficits, moves all 4 extremities, strength and sensation grossly intact Microbiology 11/08/16 18:45 Blood Blood Culture - Preliminary No Growth after 72 hours - Labs CBC & Chem 7: 11/12/16 07:39 11/12/16 07:39 Labs: Abnormal Lab Results - Last 24 Hours (Table) 11/11/16 11/11/16 11/12/16 Range/Units 17:06 20:14 07:39 WBC 13.3 H (3.8-10.6) k/uL RBC 4.20 L (4.30-5.90) m/uL MCV 101.2 H (80.0-100.0) fL Neutrophils # 12.8 H (1.3-7.7) k/uL Lymphocytes # 0.1 L (1.0-4.8) k/uL Creatinine (0.66-1.25) mg/dL POC Glucose (mg/dL) 116 H 122 H (75-99) mg/dL 11/12/16 11/12/16 Range/Units 07:39 11:20 WBC (3.8-10.6) k/uL RBC (4.30-5.90) m/uL MCV (80.0-100.0) fL Neutrophils # (1.3-7.7) k/uL Lymphocytes # (1.0-4.8) k/uL Creatinine 0.62 L (0.66-1.25) mg/dL POC Glucose (mg/dL) 102 H (75-99) mg/dL Assessment and Plan Plan: 1. [Acute COPD exacerbation with acute purulent tracheobronchitis, failure of outpatient treatment]. 2. [Leukocytosis]. 3. [Increased MCV]. 4. [COPD]. 5. [History of CVA, TIA]. 6. [Gastroesophageal reflux disease]. 7. [Essential hypertension]. 8. History of pneumonia 9. Basal ganglion hemorrhage 10. Degenerative joint disease 11. History of C2 fracture 12. Remote history of nicotine dependence Plan: Continue on current medication regime, nebulized bronchodilators, steroids and antibiotics. Follow closely with pulmonary. Further recommendations to follow. The impression and plan of care has been dictated as directed. : I performed a H&P examination of this patient and discussed the same with the dictator. I agree with the dictator's note. Any additional findings/opinions/ etc. will be noted.
[2016-11-12 17:01] LABS: Glucose,Whole Blood 128 mg/dL (75-99)
--- NOTE | 2016-11-12 17:18 | P.PN ---
Subjective Principal diagnosis: AECOPD Patient seen and examined. Patient states he is still having a lot of chest pain which is making it hard to breath. He does have a dry cough. He denies fevers or chills. Objective - Vital Signs Vital signs: Vital Signs Temp 98 F 11/12/16 15:00 Pulse 94 11/12/16 15:37 Resp 16 11/12/16 15:00 BP 134/72 11/12/16 15:00 Pulse Ox 91 L 11/12/16 15:00 Intake & Output 11/11/16 11/12/16 11/12/16 18:59 06:59 18:59 Intake Total 7364 927 9457 Balance 6554 927 7592 Weight 65.317 kg Intake: Oral 3199 542 6144 Other: Voiding Method Toilet Toilet Toilet # Voids 1 1 2 - Exam Gen.: Patient is alert and oriented 3, no acute distress cardiovascular: Regular rate and rhythm S1-S2 Lungs: Diminished breath sounds bilaterally, improving aeration Abdomen: Soft nontender nondistended positive bowel sounds Extremities: No edema - Labs CBC & Chem 7: 11/12/16 07:39 11/12/16 07:39 Labs: Abnormal Lab Results - Last 24 Hours (Table) 11/11/16 11/12/16 11/12/16 Range/Units 20:14 07:39 07:39 WBC 13.3 H (3.8-10.6) k/uL RBC 4.20 L (4.30-5.90) m/uL MCV 101.2 H (80.0-100.0) fL Neutrophils # 12.8 H (1.3-7.7) k/uL Lymphocytes # 0.1 L (1.0-4.8) k/uL Creatinine 0.62 L (0.66-1.25) mg/dL POC Glucose (mg/dL) 122 H (75-99) mg/dL 11/12/16 11/12/16 Range/Units 11:20 16:56 WBC (3.8-10.6) k/uL RBC (4.30-5.90) m/uL MCV (80.0-100.0) fL Neutrophils # (1.3-7.7) k/uL Lymphocytes # (1.0-4.8) k/uL Creatinine (0.66-1.25) mg/dL POC Glucose (mg/dL) 102 H 128 H (75-99) mg/dL Assessment and Plan Plan: Acute exacerbation of COPD Bronchospasm Tracheobronchitis History of CVA Chronic chest pain MSK Emphysema Leukocytosis Tobacco abuse alcohol abuse O2 to maintain saturation greater than equal to 88% Pulmicort 0.5 mg BID Duo nebs Change to PO Prednisone taper Antibiotics: Doxycycline Perforomist Singulair Smoking cessation is highly recommended Incentive spirometry and pulmonary hygiene GI and DVT prophylaxis Would DC with ICS/LABA, LAMA, RAMBO PRN, Singulair, Prednisone taper Outpatient pulmonary follow up with PFT
[2016-11-12] MEDS: BUDESONIDE 0.5 MG/2 ML NEBU INHALATION SCH (19:20)
[2016-11-12] MEDS: MONTELUKAST 10 MG TAB PO SCH (20:26)
[2016-11-12 20:46] LABS: Glucose,Whole Blood 126 mg/dL (75-99)
[2016-11-12] MEDS: LORazepam 0.5 MG TAB PO PRN (22:12)
[2016-11-13] MEDS: IPRATROPIUM-ALBUTEROL 3 ML NEB INHALATION PRN ×2 (00:06→03:48)
[2016-11-13] MEDS: guaiFENesin SYRUP 100MG/5ML 200 MG/10 ML CUP PO PRN ×4 (00:38→13:08)
[2016-11-13] MEDS: HYDROcodone/APAP 10-325MG 1 EACH TAB PO PRN ×3 (03:54→16:01)
[2016-11-13 07:00] LABS: Glucose,Whole Blood 91 mg/dL (75-99)
[2016-11-13] MEDS: IPRATROPIUM-ALBUTEROL 3 ML NEB INHALATION SCH ×3 (07:06→15:18)
[2016-11-13] MEDS: FORMOTEROL FUMARATE 20 MCG/2 ML NEBU INHALATION SCH (07:06)
[2016-11-13] MEDS: BUDESONIDE 0.5 MG/2 ML NEBU INHALATION SCH (07:06)
--- NOTE | 2016-11-13 07:16 | PN ---
DATE OF SERVICE: 11/12/2016 This 56-year-old gentleman admitted with COPD exacerbation is being closely monitored. Patient has shortness of breath. Seen and evaluated the patient with the nurse practitioner. Please refer to the nurse practitioner's notes and impression document as ascribed for further information. Dr. King input appreciated. See orders for further details.
[2016-11-13 07:30] VITALS: RESP 16
[2016-11-13] MEDS: DOXYCYCLINE 50 MG CAP PO SCH (08:25)
[2016-11-13] MEDS: INSULIN LISPRO (humaLOG) 300 UNIT/3 ML VIAL SQ SCH ×2 (08:25→11:52)
[2016-11-13] MEDS: amLODIPine 10 MG TAB PO SCH (08:25)
[2016-11-13] MEDS: PANTOPRAZOLE 40 MG TABLET PO SCH (08:25)
[2016-11-13] MEDS: levETIRAcetam 500 MG TAB PO SCH (08:26)
[2016-11-13 08:36] LABS: Basophils % (A) 0 %; CH 34.5; CHCM 33.9; Eosinophils % (A) 0 %; HCT 44.2 % (39.0-53.0); HDW 2.16; HGB 14.8 gm/dL (13.0-17.5); Luc # (Auto) 0.09; Luc % (Auto) 1; Lymphocytes # (A) 0.6 k/uL (1.0-4.8); Lymphocytes % (A) 5 %; MCH 34.1 pg (25.0-35.0); MCHC 33.5 g/dL (31.0-37.0); MCV 101.9 fL (80.0-100.0); Macrocytosis Slight; Mean Platelet Volume 7.2; Monocytes # (A) 0.7 k/uL (0-1.0); Monocytes % (A) 5 %; Neutrophils # (A) 11.7 k/uL (1.3-7.7); Neutrophils % (A) 89 %; RBC 4.34 m/uL (4.30-5.90); RDW 12.5 % (11.5-15.5); WBC 13.1 k/uL (3.8-10.6); WBC (Perox) 13.98
[2016-11-13 08:53] LABS: Anion Gap 7 mmol/L; Blood Urea Nitrogen 15 mg/dL (9-20); Calcium 9.2 mg/dL (8.4-10.2); Carbon Dioxide 30 mmol/L (22-30); Chloride 99 mmol/L (98-107); Glucose 90 mg/dL (74-99); Non-African American GFR(MDRD) >60 (>60 ml/min/1.73 sqM); Potassium 3.9 mmol/L (3.5-5.1); Sodium 136 mmol/L (137-145)
[2016-11-13] MEDS ORDERED: predniSONE 20 MG TAB PO SCH (09:00)
[2016-11-13] MEDS: FOLIC ACID 1 MG TAB PO SCH (11:21)
[2016-11-13] MEDS: MULTIVITAMINS, THERA 1 EACH TAB PO SCH (11:21)
[2016-11-13 11:39] LABS: Glucose,Whole Blood 108 mg/dL (75-99)
--- NOTE | 2016-11-13 12:01 | P.PN ---
Subjective Principal diagnosis: Acute exacerbation of COPD Patient seen and examined. Patient is complaining of continued chest pain that is making his breathing worse. He denies fevers and chills. He is planning to get out of bed later today. Objective - Vital Signs Vital signs: Vital Signs Temp 97.6 F 11/13/16 07:00 Pulse 92 11/13/16 11:14 Resp 16 11/13/16 07:00 BP 142/81 11/13/16 07:00 Pulse Ox 95 11/13/16 07:00 Intake & Output 11/12/16 11/13/16 11/13/16 18:59 06:59 18:59 Intake Total 1800 1290 Balance 1800 1290 Intake: Oral 1800 1290 Other: Voiding Method Toilet Toilet Toilet # Voids 2 2 - Exam Gen.: Patient is alert and oriented 3, no acute distress cardiovascular: Regular rate and rhythm S1-S2 Lungs: Diminished breath sounds bilaterally, improving aeration Abdomen: Soft nontender nondistended positive bowel sounds Extremities: No edema - Labs CBC & Chem 7: 11/13/16 07:50 11/13/16 07:50 Labs: Abnormal Lab Results - Last 24 Hours (Table) 11/12/16 11/12/16 11/13/16 Range/Units 16:56 20:26 07:50 WBC 13.1 H (3.8-10.6) k/uL MCV 101.9 H (80.0-100.0) fL Neutrophils # 11.7 H (1.3-7.7) k/uL Lymphocytes # 0.6 L (1.0-4.8) k/uL Sodium (137-145) mmol/L POC Glucose (mg/dL) 128 H 126 H (75-99) mg/dL 11/13/16 11/13/16 Range/Units 07:50 11:14 WBC (3.8-10.6) k/uL MCV (80.0-100.0) fL Neutrophils # (1.3-7.7) k/uL Lymphocytes # (1.0-4.8) k/uL Sodium 136 L (137-145) mmol/L POC Glucose (mg/dL) 108 H (75-99) mg/dL Assessment and Plan Plan: Acute exacerbation of COPD Bronchospasm Tracheobronchitis History of CVA Chronic chest pain MSK Emphysema Leukocytosis Tobacco abuse alcohol abuse O2 to maintain saturation greater than equal to 88% Pulmicort 0.5 mg BID Duo nebs Change to PO Prednisone taper Antibiotics: Doxycycline Perforomist Singulair Smoking cessation is highly recommended Incentive spirometry and pulmonary hygiene GI and DVT prophylaxis Would DC with ICS/LABA, LAMA, RAMBO PRN, Singulair, Prednisone taper Outpatient pulmonary follow up with PFT Okay to DC from pulmonary standpoint, outpatient follow-up in 1-2 weeks
--- NOTE | 2016-11-13 14:46 | P.DS ---
Providers Date of admission: 11/10/16 13:24 Expected date of discharge: 11/13/16 Attending physician: Vu Guzmán Consults: Dr. Venus King, pulmonary Primary care physician: [facility] Hospital Course: Final Diagnoses: 1. [Acute on chronic COPD exacerbation with acute purulent tracheobronchitis, failure of outpatient treatment]. 2. [Leukocytosis]. 3. Gastroesophageal reflux disease]. 4. [Essential hypertension]. 5. Nicotine dependence 6. Degenerative joint disease Hospital course:This is a 56-year-old gentleman admitted with acute COPD exacerbation, purulent tracheobronchitis,, failed outpatient treatment and multiple other medical issues. Evaluated by pulmonary. Maintained on nebulized bronchodilators, systemic steroids and antibiotics, with significant clinical improvement. Cleared by pulmonary for discharge. Patient is being discharged home in a stable condition with guarded prognosis. Microbiology 11/08/16 18:45 Blood Blood Culture - Preliminary No Growth after 96 hours The impression and plan of care has been dictated as directed. : I performed a H&P examination of this patient and discussed the same with the dictator. I agree with the dictator's note. Any additional findings/opinions/ etc. will be noted. Patient Condition at Discharge: Stable Plan - Discharge Summary New Discharge Prescriptions: Doxycycline [Vibramycin] 100 mg PO BID #6 cap Folic Acid 1 mg PO DAILY@1200 #30 tab Montelukast [Singulair] 10 mg PO HS #30 tab Multivitamins, Thera [Multivitamin (formulary)] 1 each PO DAILY@1200 #30 tab Thiamine [Vitamin B-1] 100 mg PO DAILY #30 tablet predniSONE 10 mg PO DIRECTED #30 tab Discharge Medication List amLODIPine [Norvasc] 10 mg PO DAILY 02/07/15 [History] levETIRAcetam [Keppra] 500 mg PO QAM 02/07/15 [History] Albuterol Sulfate [Ventolin HFA] 2 puff INHALATION RT-Q4H PRN 03/31/15 [History] Budesonide-Formot 160-4.5 Mcg [Symbicort 160-4.5 Mcg Inhaler] 2 puff INHALATION RT-BID #1 puff 07/08/15 [Rx] Acetaminophen Tab [Tylenol] 650 mg PO Q6H PRN #30 tablet 11/01/16 [Rx] Albuterol Nebulized [Ventolin Nebulized] 2.5 mg INHALATION RT-QID #0 11/13/16 [ Rx] Doxycycline [Vibramycin] 100 mg PO BID #6 cap 11/13/16 [Rx] Folic Acid 1 mg PO DAILY@1200 #30 tab 11/13/16 [Rx] Montelukast [Singulair] 10 mg PO HS #30 tab 11/13/16 [Rx] Multivitamins, Thera [Multivitamin (formulary)] 1 each PO DAILY@1200 #30 tab [Rx] Thiamine [Vitamin B-1] 100 mg PO DAILY #30 tablet 11/13/16 [Rx] guaiFENesin SYRUP 100MG/5ML [Robitussin] 200 mg PO Q4H PRN #0 cup 11/13/16 [Rx] predniSONE 10 mg PO DIRECTED #30 tab 11/13/16 [Rx] Follow up Appointment(s)/Referral(s): Venus King DO [Doctor of Osteopathic Medicine] - 1 Week Urszula Carrasco MD [Primary Care Provider] - 3 Days Activity/Diet/Wound Care/Special Instructions: O2 sat on room air after ambulation pending: Diet: Cardiac Activity: Limited until follow up No smoking
[2016-11-13 15:29] VITALS: BP 134/77; TEMP 98
[2016-11-13 15:33] VITALS: PULSE 92
== END 2016-11-13 18:06 | disposition home or self-care (01) | DRG 192 ==
LOC: EC 18:22 → 5MS5E 20:03 → OBSVTOIN 11-10 13:24
PROVIDERS: ADMIT Internal Medicine; ATTEND Internal Medicine
DX: J44.0 Chronic obstructive pulmonary disease with (acute) lower respiratory infection (principal); I10 Essential (primary) hypertension; J44.1 Chronic obstructive pulmonary disease with (acute) exacerbation; J20.9 Acute bronchitis, unspecified; I25.2 Old myocardial infarction; G89.4 Chronic pain syndrome; R07.89 Other chest pain; R06.2 Wheezing; R50.9 Fever, unspecified; M25.542 Pain in joints of left hand; M25.541 Pain in joints of right hand; K21.9 Gastro-esophageal reflux disease without esophagitis; F32.9 Major depressive disorder, single episode, unspecified; R53.1 Weakness; M19.90 Unspecified osteoarthritis, unspecified site; F10.10 Alcohol abuse, uncomplicated; M75.00 Adhesive capsulitis of unspecified shoulder; F17.200 Nicotine dependence, unspecified, uncomplicated; J30.2 Other seasonal allergic rhinitis; D72.829 Elevated white blood cell count, unspecified; Z86.73 Personal history of transient ischemic attack (TIA), and cerebral infarction without residual deficits; Z80.51 Family history of malignant neoplasm of kidney; Z87.01 Personal history of pneumonia (recurrent); Z82.5 Family history of asthma and other chronic lower respiratory diseases; Z80.0 Family history of malignant neoplasm of digestive organs; Z79.899 Other long term (current) drug therapy; Z71.6 Tobacco abuse counseling; Z88.6 Allergy status to analgesic agent; Z88.5 Allergy status to narcotic agent; Z87.81 Personal history of (healed) traumatic fracture; Z79.51 Long term (current) use of inhaled steroids
CPT/HCPCS: 36415; 71020; 80048; 80053; 82550; 82553; 83735; 83880; 84484; 85025; 85379; 85610; 85730; 87040; 93005; 94640; 96361; 96374; 96376; 99285

== ENCOUNTER 2016-11-14 19:38 | Observation (INO) | payer OTHER ==
[2016-11-14] MEDS ORDERED: ALBUTEROL NEBULIZED 2.5 MG/3 ML INHALATION STA (19:58)
[2016-11-14] MEDS ORDERED: methylPREDNISolone SOD SUCCI 125 MG/2 ML VIAL IV STA (19:58)
--- NOTE | 2016-11-14 20:02 | ED ---
General Adult HPI - General Source: patient, RN notes reviewed Mode of arrival: wheelchair Limitations: no limitations <Tray Roger - Last Filed: 11/14/16 20:51> <Tray Quintana - Last Filed: 11/14/16 22:40> - General Chief complaint: Shortness of Breath Stated complaint: SOB Time Seen by Provider: 11/14/16 19:45 - History of Present Illness Initial comments: This is a 56-year-old male who comes in with past medical history significant for COPD. Patient states he was just discharged from the hospital yesterday. Patient states he went home and has not felt any better. Patient states he did do a couple breathing treatments at his brother's place and then had his brother bring him back here. Patient denies any fever or chills. Patient denies any chest pain. Patient states he is not homeless he states he is between places now however he is wearing just about every piece of clothing he could possibly own and brings a few bags of clothes as well. Patient denies any abdominal pain patient denies nausea vomiting diarrhea. Patient denies any drug use. Patient states she stopped smoking. Patient denies any abdominal pain patient denies nausea vomiting diarrhea. (Tray Roger) - Related Data Home Medications Medication Instructions Recorded Confirmed amLODIPine [Norvasc] 10 mg PO DAILY 02/07/15 11/14/16 levETIRAcetam [Keppra] 500 mg PO QAM 02/07/15 11/14/16 Albuterol Sulfate [Ventolin HFA] 2 puff INHALATION RT-Q4H PRN 03/31/15 11/14/16 Multivitamins, Thera [Multivitamin 1 tab PO DAILY@1200 11/14/16 11/14/16 (formulary)] predniSONE See Taper PO DAILY 11/14/16 11/14/16 Previous Rx's Medication Instructions Recorded Budesonide-Formot 160-4.5 Mcg 2 puff INHALATION RT-BID #1 puff 07/08/15 [Symbicort 160-4.5 Mcg Inhaler] Acetaminophen Tab [Tylenol] 650 mg PO Q6H PRN #30 tablet 11/01/16 Albuterol Nebulized [Ventolin 2.5 mg INHALATION RT-QID #0 11/13/16 Nebulized] Doxycycline [Vibramycin] 100 mg PO BID #6 cap 11/13/16 Folic Acid 1 mg PO DAILY@1200 #30 tab 11/13/16 HYDROcodone/APAP 5-325MG [Bena 1 tab PO Q6HR PRN #20 tab 11/13/16 5-325] Montelukast [Singulair] 10 mg PO HS #30 tab 11/13/16 Thiamine [Vitamin B-1] 100 mg PO DAILY #30 tablet 11/13/16 guaiFENesin SYRUP 100MG/5ML 200 mg PO Q4H PRN #0 cup 11/13/16 [Robitussin] Allergies Allergy/AdvReac Type Severity Reaction Status Date / Time aspirin Allergy Unknown Verified 11/14/16 20:03 morphine Allergy Rash/Hives Verified 11/14/16 20:03 NSAIDS (Non-Steroidal Allergy Unknown Verified 11/14/16 20:03 Anti-Inflamma Review of Systems ROS Other: All systems not noted in ROS Statement are negative. <Tray Roger - Last Filed: 11/14/16 20:51> ROS Other: All systems not noted in ROS Statement are negative. <Tray Quintaan - Last Filed: 11/14/16 22:40> ROS Statement: Those systems with pertinent positive or pertinent negative responses have been documented in the HPI. 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,PER PAST MEDICAL HX NOTED C2 fracture(FROM [facility]-NOT ABLE TO CONFIRM WITH PT), Osteoarthritis, DJD, "FROZEN SHOULDER SYNDROME (RT)" , [place]-PT STATED IN THE Last Myocardial Infarction Date:: unknown History of Any Multi-Drug Resistant Organisms: None Reported Past Surgical History: Orthopedic Surgery Additional Past Surgical History / Comment(s): neck fx, metal plate left hand middle finger Past Anesthesia/Blood Transfusion Reactions: No Reported Reaction Past Psychological History: No Psychological Hx Reported Additional Psychological History / Comment(s): 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 - Past Family History Mother Family Medical History: Cancer Additional Family Medical History / Comment(s): Pt believes his Mom of Kidney Ca, but not 100% sure. Father Family Medical History: Cancer, Respiratory Disorder Additional Family Medical History / Comment(s): Melonoma <Tray Roger - Last Filed: 11/14/16 20:51> General Exam Limitations: no limitations <Tray Roger - Last Filed: 11/14/16 20:51> General appearance: alert, in no apparent distress Head exam: Present: atraumatic, normocephalic, normal inspection Eye exam: Present: normal appearance, PERRL, EOMI. Absent: scleral icterus, conjunctival injection, periorbital swelling ENT exam: Present: normal exam, mucous membranes moist Neck exam: Present: normal inspection. Absent: tenderness, meningismus, lymphadenopathy Respiratory exam: Present: normal lung sounds bilaterally, wheezes, accessory muscle use, decreased breath sounds, prolonged expiratory. Absent: respiratory distress, rales, rhonchi, stridor Cardiovascular Exam: Present: normal rhythm, tachycardia, normal heart sounds. Absent: systolic murmur, diastolic murmur, rubs, gallop, clicks GI/Abdominal exam: Present: soft, normal bowel sounds. Absent: distended, tenderness, guarding, rebound, rigid Extremities exam: Present: normal inspection, full ROM, normal capillary refill. Absent: tenderness, pedal edema, joint swelling, calf tenderness Back exam: Present: normal inspection Neurological exam: Present: alert, oriented X3, CN II-XII intact Psychiatric exam: Present: normal affect, normal mood Skin exam: Present: warm, dry, intact, normal color. Absent: rash <Tray Quintana - Last Filed: 11/14/16 22:40> - General Exam Comments Initial Comments: GENERAL: Patient is well-developed and well-nourished. Patient is nontoxic and well- hydrated and is in mild distress. ENT: Neck is soft and supple. No significant lymphadenopathy is noted. Oropharynx is clear. Moist mucous membranes. Neck has full range of motion without eliciting any pain. EYES: The sclera were anicteric and conjunctiva were pink and moist. Extraocular movements were intact and pupils were equal round and reactive to light. Eyelids were unremarkable. PULMONARY: Patient has expiratory wheezing. CARDIOVASCULAR: There is a regular rate and rhythm without any murmurs gallops or rubs. ABDOMEN: Soft and nontender with normal bowel sounds. No palpable organomegaly was noted. There is no palpable pulsatile mass. SKIN: Skin is clear with no lesions or rashes and otherwise unremarkable. NEUROLOGIC: Patient is alert and oriented x3. Cranial nerves II through XII are grossly intact. Motor and sensory are also intact. Normal speech, volume and content. Symmetrical smile. MUSCULOSKELETAL: Normal extremities with adequate strength and full range of motion. LYMPHATICS: No significant lymphadenopathy is noted PSYCHIATRIC: Normal psychiatric evaluation. Normal interpersonal interactions appears functionally intact in deals appropriately with others. No signs of depression. No signs of anxiety. (Tray Roger) Course <Tray Roger - Last Filed: 11/14/16 20:51> <Tray Quintana - Last Filed: 11/14/16 22:40> Vital Signs 11/14/16 11/14/16 11/14/16 19:42 20:13 20:28 Temperature 97 F L Pulse Rate 101 H 90 92 Respiratory 24 Rate Blood Pressure 162/91 O2 Sat by Pulse 94 L Oximetry 11/14/16 11/14/16 20:29 20:48 Temperature Pulse Rate 92 94 Respiratory Rate Blood Pressure O2 Sat by Pulse Oximetry - Reevaluation(s) Reevaluation #1: 11/14/16 22:39 Patient is doing minimal improvement after prolonged breathing treatment ( Tray Quintana) Medical Decision Making - Lab Data Result diagrams: 11/14/16 20:20 11/14/16 20:20 <Tray Roger - Last Filed: 11/14/16 20:51> - Lab Data Result diagrams: 11/14/16 20:20 11/14/16 20:20 - Radiology Data Radiology results: report reviewed (Chest x-ray is negative for acute disease), image reviewed <Tray Quintana - Last Filed: 11/14/16 22:40> - Medical Decision Making EKG shows normal sinus rhythm at 95 bpm LA interval 114 QRS is 90 QT interval 354 QTC is 444 per patient's EKG shows no ST segment elevation or depression or T-wave abnormality are noted Dr. Quintana will be taking over the care of this patient at 9 PM (Tray Roger) 56 male ER for evaluation of significant shortness of breath history of COPD, COPD exacerbation, will admit patient for IV hydration, continue breathing treatments. Patient without chest pain (Tray Quintana) - Lab Data Lab Results 11/14/16 11/14/16 11/14/16 Range/Units 20:20 20:20 20:20 WBC 11.0 H (3.8-10.6) k/uL RBC 4.82 (4.30-5.90) m/uL Hgb 16.3 (13.0-17.5) gm/dL Hct 48.7 (39.0-53.0) % MCV 101.1 H (80.0-100.0) fL MCH 33.8 (25.0-35.0) pg MCHC 33.5 (31.0-37.0) g/dL RDW 12.8 (11.5-15.5) % Plt Count 254 (150-450) k/uL Neutrophils % 86 % Lymphocytes % 6 % Monocytes % 6 % Eosinophils % 1 % Basophils % 0 % Neutrophils # 9.4 H (1.3-7.7) k/uL Lymphocytes # 0.7 L (1.0-4.8) k/uL Monocytes # 0.7 (0-1.0) k/uL Eosinophils # 0.1 (0-0.7) k/uL Basophils # 0.0 (0-0.2) k/uL PT (9.0-12.0) sec INR (<1.1) APTT (22.0-30.0) sec Sodium 138 (137-145) mmol/L Potassium 4.5 (3.5-5.1) mmol/L Chloride 101 (98-107) mmol/L Carbon Dioxide 27 (22-30) mmol/L Anion Gap 10 mmol/L BUN 18 (9-20) mg/dL Creatinine 0.55 L (0.66-1.25) mg/dL Est GFR (MDRD) Af Amer >60 (>60 ml/min/1.73 sqM) Est GFR (MDRD) Non-Af >60 (>60 ml/min/1.73 sqM) Glucose 87 (74-99) mg/dL Calcium 9.3 (8.4-10.2) mg/dL Magnesium 2.2 (1.6-2.3) mg/dL Total Bilirubin 0.6 (0.2-1.3) mg/dL AST 38 (17-59) U/L ALT 51 (21-72) U/L Alkaline Phosphatase 35 L (38-126) U/L Total Creatine Kinase 46 L (55-170) U/L CK-MB (CK-2) 2.4 (0.0-2.4) ng/mL CK-MB (CK-2) Rel Index 5.2 Troponin I <0.012 (0.000-0.034) ng/mL Total Protein 6.6 (6.3-8.2) g/dL Albumin 3.9 (3.5-5.0) g/dL 11/14/16 Range/Units 20:20 WBC (3.8-10.6) k/uL RBC (4.30-5.90) m/uL Hgb (13.0-17.5) gm/dL Hct (39.0-53.0) % MCV (80.0-100.0) fL MCH (25.0-35.0) pg MCHC (31.0-37.0) g/dL RDW (11.5-15.5) % Plt Count (150-450) k/uL Neutrophils % % Lymphocytes % % Monocytes % % Eosinophils % % Basophils % % Neutrophils # (1.3-7.7) k/uL Lymphocytes # (1.0-4.8) k/uL Monocytes # (0-1.0) k/uL Eosinophils # (0-0.7) k/uL Basophils # (0-0.2) k/uL PT 10.0 (9.0-12.0) sec INR 1.0 (<1.1) APTT 19.5 L (22.0-30.0) sec Sodium (137-145) mmol/L Potassium (3.5-5.1) mmol/L Chloride (98-107) mmol/L Carbon Dioxide (22-30) mmol/L Anion Gap mmol/L BUN (9-20) mg/dL Creatinine (0.66-1.25) mg/dL Est GFR (MDRD) Af Amer (>60 ml/min/1.73 sqM) Est GFR (MDRD) Non-Af (>60 ml/min/1.73 sqM) Glucose (74-99) mg/dL Calcium (8.4-10.2) mg/dL Magnesium (1.6-2.3) mg/dL Total Bilirubin (0.2-1.3) mg/dL AST (17-59) U/L ALT (21-72) U/L Alkaline Phosphatase (38-126) U/L Total Creatine Kinase (55-170) U/L CK-MB (CK-2) (0.0-2.4) ng/mL CK-MB (CK-2) Rel Index Troponin I (0.000-0.034) ng/mL Total Protein (6.3-8.2) g/dL Albumin (3.5-5.0) g/dL Critical Care Time Critical Care Time: Yes Total Critical Care Time: 31 <Tray Quintana - Last Filed: 11/14/16 22:40> Disposition <Tray Roger - Last Filed: 11/14/16 20:51> <Tray Quintana - Last Filed: 11/14/16 22:40> Clinical Impression: Acute exacerbation of chronic obstructive airways disease Disposition: ADMITTED IP TO THIS HOSP Condition: Fair Referrals: Urszula Carrasco MD [Primary Care Provider] - 1-2 days
[2016-11-14 20:41] LABS: Basophils % (A) 0 %; CH 34.2; CHCM 33.9; Eosinophils # (A) 0.1 k/uL (0-0.7); Eosinophils % (A) 1 %; HCT 48.7 % (39.0-53.0); HGB 16.3 gm/dL (13.0-17.5); Luc # (Auto) 0.09; Luc % (Auto) 1; Lymphocytes # (A) 0.7 k/uL (1.0-4.8); Lymphocytes % (A) 6 %; MCH 33.8 pg (25.0-35.0); MCHC 33.5 g/dL (31.0-37.0); MCV 101.1 fL (80.0-100.0); Mean Platelet Volume 6.4; Monocytes # (A) 0.7 k/uL (0-1.0); Monocytes % (A) 6 %; Neutrophils # (A) 9.4 k/uL (1.3-7.7); Neutrophils % (A) 86 %; RBC 4.82 m/uL (4.30-5.90); RDW 12.8 % (11.5-15.5); WBC (Perox) 11.07
[2016-11-14 20:42] LABS: ALT 51 U/L (21-72); AST 38 U/L (17-59); Alkaline Phosphatase 35 U/L (38-126); Anion Gap 10 mmol/L; Blood Urea Nitrogen 18 mg/dL (9-20); Calcium 9.3 mg/dL (8.4-10.2); Carbon Dioxide 27 mmol/L (22-30); Chloride 101 mmol/L (98-107); Glucose 87 mg/dL (74-99); Magnesium 2.2 mg/dL (1.6-2.3); Non-African American GFR(MDRD) >60 (>60 ml/min/1.73 sqM); Potassium 4.5 mmol/L (3.5-5.1); Sodium 138 mmol/L (137-145); Total Bilirubin 0.6 mg/dL (0.2-1.3); Total Protein 6.6 g/dL (6.3-8.2)
[2016-11-14 20:54] LABS: Creatine Kinase 46 U/L (55-170)
[2016-11-14] MEDS ORDERED: LORazepam 1 MG TAB PO STA (21:02)
[2016-11-14 21:07] LABS: Creatine Kinase MB 2.4 ng/mL (0.0-2.4); Troponin I <0.012 ng/mL (0.000-0.034)
[2016-11-14 21:15] LABS: Partial Thromboplastin Time 19.5 sec (22.0-30.0)
--- NOTE | 2016-11-14 21:20 | XR ---
EXAMINATION TYPE: XR chest 2V DATE OF EXAM: 11/14/2016 8:57 PM COMPARISON: Prior chest x-ray November 08, 2016. HISTORY: History of COPD presents with shortness of breath and chest pain. TECHNIQUE: Frontal and lateral views of the chest are obtained. FINDINGS: Underlying emphysematous change is felt present on lateral view with flattened hemidiaphrag ms and increased retrosternal airspace. There is no focal air space opacity, pleural effusion, or pne umothorax seen. The cardiac silhouette size is within normal limits. The osseous structures are in tact. IMPRESSION: No acute cardiopulmonary process. No significant change from prior.
[2016-11-14 23:53] VITALS: BMI 22.6
[2016-11-15] MEDS: SODIUM CHLORIDE 0.9% 1,000 ML IV SCH ×2 (00:14→10:14)
[2016-11-15] MEDS: IPRATROPIUM-ALBUTEROL 3 ML NEB INHALATION PRN ×2 (01:19→04:28)
[2016-11-15] MEDS: methylPREDNISolone SOD SUCCI 125 MG/2 ML VIAL IV SCH ×3 (05:34→18:13)
[2016-11-15 07:14] LABS: Glucose,Whole Blood 118 mg/dL (75-99)
[2016-11-15] MEDS: IPRATROPIUM-ALBUTEROL 3 ML NEB INHALATION SCH ×3 (07:16→15:08)
[2016-11-15 07:27] VITALS: BP 127/78; RESP 20; TEMP 97.8
[2016-11-15] MEDS: INSULIN LISPRO (humaLOG) 300 UNIT/3 ML VIAL SQ SCH ×3 (08:20→17:29)
[2016-11-15] MEDS ORDERED: AZITHROMYCIN 500 MG TAB PO SCH (09:00)
[2016-11-15] MEDS ORDERED: guaiFENesin SYRUP 100MG/5ML 200 MG/10 ML CUP PO PRN (10:03)
[2016-11-15] MEDS ORDERED: ACETAMINOPHEN TAB 325 MG TAB PO PRN (10:03)
[2016-11-15] MEDS ORDERED: DOXYCYCLINE 50 MG CAP PO SCH (10:15)
[2016-11-15] MEDS: HYDROcodone/APAP 5-325MG 1 EACH TAB PO PRN ×2 (10:23→16:18)
[2016-11-15] MEDS ORDERED: amLODIPine 10 MG TAB PO SCH (10:30)
[2016-11-15] MEDS ORDERED: THIAMINE 100 MG TAB PO SCH (10:30)
[2016-11-15] MEDS ORDERED: levETIRAcetam 500 MG TAB PO SCH (10:30)
[2016-11-15 11:36] LABS: Glucose,Whole Blood 139 mg/dL (75-99)
[2016-11-15] MEDS ORDERED: MULTIVITAMINS, THERA 1 EACH TAB PO SCH (12:00)
[2016-11-15] MEDS ORDERED: FOLIC ACID 1 MG TAB PO SCH (12:00)
[2016-11-15 13:08] LABS: Hemoglobin A1C 5.6 % (4.2-6.1)
[2016-11-15 15:11] VITALS: PULSE 94
[2016-11-15 16:59] LABS: Glucose,Whole Blood 124 mg/dL (75-99)
[2016-11-15] MEDS ORDERED: SYMBICORT 160-4.5 MCG INHALER INHALATION SCH (20:00)
[2016-11-15] MEDS ORDERED: MONTELUKAST 10 MG TAB PO SCH (21:00)
--- NOTE | 2016-11-15 22:29 | HP ---
DATE OF ADMISSION: 11/14/2016 HISTORY AND PHYSICAL EXAMINATION/DISCHARGE SUMMARY: 56 -year-old male came in with complaints of shortness of breath. The patient was discharged a couple days ago. The patient did not feel better and came back to the hospital. On exam, fairly good air entry into bilateral lung brown. The patient is actually doing well on room air at best and we will ambulate the patient. If he is doing well, the patient will be discharged back. Apparently his main issue appears to be homelessness for which we will evaluate the patient. The patient was unable to fill his antibiotic because of which social work will use indigent funds for him and the patient denied any nausea, vomiting, the patient denied any fever, chills. The patient was complaining of cough with whitish sputum production presently. Chest x-ray did not show any pneumonic process. Home medications: 1. Amlodipine. 2. ( ). 3. Albuterol. 4. Multivitamin. 5. ( ). 6. Prednisone. 7. Formoterol. 8. ( ). 9. Folic acid. 10. Hydrocodone acetaminophen. 11. Montelukast. 12. Guaifenesen. 13. Robitussin. ALLERGIES: ALLERGIC TO ASPIRIN AND MORPHINE AND NSAIDS. REVIEW OF SYSTEMS: CONSTITUTIONAL: No fever, no malaise, no fatigue. HEENT: No recent visual problems or hearing problems. Denied any sore throat. CARDIOVASCULAR: No chest pain, orthopnea, PND, no palpitations, no syncope. PULMONARY: as described in HPI. GASTROINTESTINAL: No diarrhea, no nausea, no vomiting, no abdominal pain. Normoactive bowel sounds. NEUROLOGICAL: No headaches, no weakness, no numbness. HEMATOLOGICAL: Denies any bleeding or petechiae. GENITOURINARY: Denies any burning micturition, frequency, or urgency. MUSCULOSKELETAL/RHEUMATOLOGICAL: Denies any joint pain, swelling, or any muscle pain. ENDOCRINE: Denies any polyuria or polydipsia. The rest of the 14 point review of systems is negative. PAST MEDICAL HISTORY: COPD , CVA/TIA in the past, gastroesophageal reflux disease, hypertension, pneumonias in the past. PAST SURGICAL HISTORY: Orthopedic surgery in the past, left hand middle finger surgery secondary to infection. SOCIAL HISTORY: The patient used to smoke 1 pack per day, quit 3 months ago. He drinks beer occasionally. Patient uses marijuana. FAMILY HISTORY: Mother had cancer. Mother of kidney cancer. Father had cancer and respiratory disorder. PHYSICAL EXAMINATION: VITAL SIGNS: Temperature 97.1, pulse of 101 yesterday and now 92. Respiratory rate of 24, respiratory rate now 18, blood pressure is 162/91, saturating at 94% on room air. GENERAL: The patient is alert and oriented x3, not in any acute distress. Well developed, well nourished. HEENT: Pupils are round and equally reacting to light. EOMI. No scleral icterus. No conjunctival pallor. Normocephalic, atraumatic. No pharyngeal erythema. No thyromegaly. CARDIOVASCULAR: S1 and S2 present. No murmurs, rubs, or gallops. PULMONARY: Fairly good air entry into bilateral lung brown. Very minimal expiratory wheezing was appreciated in the left lower lung brown. No crackles were appreciated. ABDOMEN: Soft, nontender, nondistended, normoactive bowel sounds. No palpable organomegaly. MUSCULOSKELETAL: No joint swelling or deformity. EXTREMITIES: No cyanosis, clubbing, or pedal edema. NEUROLOGICAL: Gross neurological examination did not reveal any focal deficits. SKIN: No rashes. CBC and BMP abnormal for elevated WBC count, ( ) done. The rest of the labs ( ) chest x-ray did not show any pneumonic process. ASSESSMENT AND KANDICE: 1. Acute hypercapnic respiratory failure secondary to chronic obstructive pulmonary disease exacerbation rate of 6. 2. Hypertension. 3. Hyperlipidemia. 4. Marijuana use, counseling was provided. 5. History of gastroesophageal reflux disease. 6. Cerebrovascular accident/ transient ischemic attack. We will ambulate the patient in the hallway and if he is able to do okay, the patient will be discharged home on inhalational treatments and weaning doses of sludge and social media strategist will work on ( ) for his medications and they are working on his placement as well and after that evaluation ( ) the patient will be discharged today. Patient will follow with primary care physician in about 3 to 7 days. Activity as tolerated. Cardiac diet. This dictation is both H&P and discharge summary.
== END 2016-11-15 18:33 | disposition home or self-care (01) ==
LOC: EC 19:38 → 4MS4W 22:37
PROVIDERS: ADMIT Hospitalist; ATTEND Hospitalist
DX: J44.1 Chronic obstructive pulmonary disease with (acute) exacerbation (principal); J96.02 Acute respiratory failure with hypercapnia; I10 Essential (primary) hypertension; E78.5 Hyperlipidemia, unspecified; K21.9 Gastro-esophageal reflux disease without esophagitis; Z86.73 Personal history of transient ischemic attack (TIA), and cerebral infarction without residual deficits; I25.2 Old myocardial infarction; Z79.899 Other long term (current) drug therapy; Z79.52 Long term (current) use of systemic steroids; Z88.6 Allergy status to analgesic agent; Z88.5 Allergy status to narcotic agent; Z88.8 Allergy status to other drugs, medicaments and biological substances; Z87.891 Personal history of nicotine dependence; Z80.51 Family history of malignant neoplasm of kidney
CPT/HCPCS: 96374; 99291; 36415; 94640 ×2; 94760; 94644; 93005; 80053; 83036; 82550; 82553; 83735; 84484; 85025; 85610; 85730; 87040; 71020; G0378 ×2; J2930 ×2; 96376

== ENCOUNTER 2016-11-19 19:52 | Emergency (ER) | payer OTHER ==
[2016-11-19] MEDS ORDERED: IPRATROPIUM-ALBUTEROL 3 ML NEB INHALATION STA (21:47)
[2016-11-19] MEDS ORDERED: LORazepam 1 MG TAB PO STA ×2 (21:47→23:02)
--- NOTE | 2016-11-19 21:50 | ED ---
General Adult HPI - General Chief complaint: Anxiety Stated complaint: Aniexty Time Seen by Provider: 11/19/16 21:38 Source: patient, RN notes reviewed Mode of arrival: EMS Limitations: no limitations - History of Present Illness Initial comments: Patient is a pleasant 56-year-old male presenting to the emergency department with complaints of anxiety. Patient states he did start a Medrol Dosepak around a week ago and questions if this is related. Patient has had some steroids in the past without similar symptoms. Patient felt anxious and restless and tingly. Patient does have some difficulty in breathing that he relates to his COPD. Patient states 93 O2 sat is normal for him. No weakness or confusion. - Related Data Home Medications Medication Instructions Recorded Confirmed amLODIPine [Norvasc] 10 mg PO DAILY 02/07/15 11/19/16 levETIRAcetam [Keppra] 500 mg PO QAM 02/07/15 11/19/16 Albuterol Sulfate [Ventolin HFA] 2 puff INHALATION RT-Q4H PRN 03/31/15 11/19/16 Multivitamins, Thera [Multivitamin 1 tab PO DAILY@1200 11/14/16 11/19/16 (formulary)] predniSONE See Taper PO DAILY 11/14/16 11/19/16 Previous Rx's Medication Instructions Recorded Budesonide-Formot 160-4.5 Mcg 2 puff INHALATION RT-BID #1 puff 07/08/15 [Symbicort 160-4.5 Mcg Inhaler] Acetaminophen Tab [Tylenol] 650 mg PO Q6H PRN #30 tablet 11/01/16 Albuterol Nebulized [Ventolin 2.5 mg INHALATION RT-QID #0 11/13/16 Nebulized] Folic Acid 1 mg PO DAILY@1200 #30 tab 11/13/16 HYDROcodone/APAP 5-325MG [Lynch 1 tab PO Q6HR PRN #20 tab 11/13/16 5-325] Montelukast [Singulair] 10 mg PO HS #30 tab 11/13/16 Thiamine [Vitamin B-1] 100 mg PO DAILY #30 tablet 11/13/16 guaiFENesin SYRUP 100MG/5ML 200 mg PO Q4H PRN #0 cup 11/13/16 [Robitussin] Doxycycline [Vibramycin] 100 mg PO BID #6 cap 11/15/16 ALPRAZolam [Xanax] 0.5 mg PO Q8HR PRN #10 tablet 11/20/16 Allergies Allergy/AdvReac Type Severity Reaction Status Date / Time aspirin Allergy Unknown Verified 11/19/16 21:54 morphine Allergy Rash/Hives Verified 11/19/16 21:54 NSAIDS (Non-Steroidal Allergy Unknown Verified 11/19/16 21:54 Anti-Inflamma Review of Systems ROS Statement: Those systems with pertinent positive or pertinent negative responses have been documented in the HPI. ROS Other: All systems not noted in ROS Statement are negative. Constitutional: Denies: fever Eyes: Denies: eye pain ENT: Denies: ear pain Respiratory: Reports: dyspnea. 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,PER PAST MEDICAL HX NOTED C2 fracture(FROM [facility]-NOT ABLE TO CONFIRM WITH PT), Osteoarthritis, DJD, "FROZEN SHOULDER SYNDROME (RT)" , [place]-PT STATED IN THE Last Myocardial Infarction Date:: unknown History of Any Multi-Drug Resistant Organisms: None Reported Past Surgical History: Orthopedic Surgery Additional Past Surgical History / Comment(s): neck fx, metal plate left hand middle finger Past Anesthesia/Blood Transfusion Reactions: No Reported Reaction Past Psychological History: No Psychological Hx Reported Additional Psychological History / Comment(s): 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 - Past Family History Mother Family Medical History: Cancer Additional Family Medical History / Comment(s): Pt believes his Mom of Kidney Ca, but not 100% sure. Father Family Medical History: Cancer, Respiratory Disorder Additional Family Medical History / Comment(s): Melonoma General Exam Limitations: no limitations General appearance: alert, in no apparent distress Head exam: Present: atraumatic Eye exam: Present: normal appearance, PERRL ENT exam: Present: normal oropharynx Neck exam: Present: normal inspection Respiratory exam: Present: decreased breath sounds Cardiovascular Exam: Present: regular rate, normal rhythm GI/Abdominal exam: Present: soft. Absent: tenderness Extremities exam: Present: normal inspection. Absent: pedal edema, calf tenderness Neurological exam: Present: alert Psychiatric exam: Present: normal affect, normal mood Skin exam: Absent: rash Course Vital Signs 11/19/16 11/19/16 11/19/16 20:16 22:21 22:32 Temperature 98.0 F Pulse Rate 106 H 106 H 106 H Respiratory 20 Rate Blood Pressure 128/70 O2 Sat by Pulse 93 L Oximetry 11/19/16 22:37 Temperature Pulse Rate 94 Respiratory 18 Rate Blood Pressure 136/71 O2 Sat by Pulse 95 Oximetry Medical Decision Making - Medical Decision Making Patient reexamined and resting comfortably in bed. Patient is now symptom- free. Patient has no complaints. Patient denies any dyspnea. Disposition Clinical Impression: Acute anxiety, Asthma exacerbation in COPD Disposition: HOME SELF-CARE Condition: Stable Instructions: Generalized Anxiety Disorder (ED), COPD (Chronic Obstructive Pulmonary Disease) (ED) Additional Instructions: Please follow-up to primary care physician tomorrow. Return for difficulty in breathing, fevers, chest pain, worsening symptoms or other concerns. Prescriptions: ALPRAZolam [Xanax] 0.5 mg PO Q8HR PRN #10 tablet PRN Reason: Anxiety Referrals: Urszula Carrasco MD [Primary Care Provider] - 1-2 days
--- NOTE | 2016-11-19 21:58 | XR ---
EXAMINATION TYPE: XR chest 2V DATE OF EXAM: 11/19/2016 9:55 PM COMPARISON: 11/14/2016 HISTORY: Dyspnea TECHNIQUE: Frontal and lateral views of the chest are obtained. FINDINGS: Heart and mediastinum are normal. Lungs are clear. Diaphragm is normal. Bony thorax and so ft tissues appear normal. IMPRESSION: Normal chest. No change.
[2016-11-19 22:40] VITALS: RESP 18
[2016-11-20 00:51] VITALS: BP 132/79; PULSE 87; TEMP 98.4
== END 2016-11-20 00:50 | disposition home or self-care (01) ==
LOC: EC 19:52
DX: F41.9 Anxiety disorder, unspecified (principal); J44.1 Chronic obstructive pulmonary disease with (acute) exacerbation; I10 Essential (primary) hypertension; Z88.6 Allergy status to analgesic agent; Z88.5 Allergy status to narcotic agent; Z79.52 Long term (current) use of systemic steroids; Z87.891 Personal history of nicotine dependence; Z79.899 Other long term (current) drug therapy
CPT/HCPCS: 71020; 94640; 99284

== ENCOUNTER 2016-11-22 16:14 | Inpatient (IN) | payer OTHER ==
[2016-11-22] MEDS ORDERED: IPRATROPIUM-ALBUTEROL 3 ML NEB INHALATION STA ×2 (16:30→17:38)
[2016-11-22] MEDS ORDERED: DEXAMETHASONE SOD PHOSPHATE 10 MG/ML 1 ML VIAL IV STA (16:30)
[2016-11-22 16:55] LABS: Basophils % (A) 0 %; CH 34.3; CHCM 33.6; Eosinophils # (A) 0.2 k/uL (0-0.7); Eosinophils % (A) 1 %; HCT 50.7 % (39.0-53.0); HDW 2.06; HGB 16.8 gm/dL (13.0-17.5); Luc # (Auto) 0.07; Luc % (Auto) 1; Lymphocytes # (A) 0.6 k/uL (1.0-4.8); Lymphocytes % (A) 4 %; MCH 33.9 pg (25.0-35.0); MCHC 33.1 g/dL (31.0-37.0); MCV 102.4 fL (80.0-100.0); Macrocytosis Slight; Mean Platelet Volume 6.2; Monocytes # (A) 0.3 k/uL (0-1.0); Monocytes % (A) 2 %; Neutrophils # (A) 13.3 k/uL (1.3-7.7); Neutrophils % (A) 92 %; RBC 4.95 m/uL (4.30-5.90); RDW 13.3 % (11.5-15.5); WBC 14.4 k/uL (3.8-10.6); WBC (Perox) 14.91
--- NOTE | 2016-11-22 16:56 | ED ---
General Adult HPI - General Chief complaint: Shortness of Breath Stated complaint: Copd/sob Time Seen by Provider: 11/22/16 16:21 Source: patient, RN notes reviewed, old records reviewed Mode of arrival: ambulatory Limitations: no limitations - History of Present Illness Initial comments: 56-year-old male with history of COPD presenting for shortness of breath. Patient states that he has had flareup of his COPD over the past week. He states he was put on a Medrol Dosepak by his PCP about a week ago. He states he then stopped this several days ago when he came to the ED because of an acute panic attack. He believes this panic attack was secondary to steroid use and has had this issue in the past. States that over the past day his COPD acutely worsened again and he feels worsening shortness of breath. Has been using his inhalers at home without improvement. He is not currently on steroids. He states he does have a nonproductive cough associated. He states he was a long-time smoker but quit about 6-8 months ago and has not smoked since. He denies any chest pain associated. He denies any fevers or chills. - Related Data Home Medications Medication Instructions Recorded Confirmed amLODIPine [Norvasc] 10 mg PO DAILY 02/07/15 11/22/16 levETIRAcetam [Keppra] 500 mg PO QAM 02/07/15 11/22/16 Albuterol Sulfate [Ventolin HFA] 2 puff INHALATION RT-QID PRN 03/31/15 11/22/16 Multivitamins, Thera [Multivitamin 1 tab PO DAILY@1200 11/14/16 11/22/16 (formulary)] Doxycycline Hyclate [Vibramycin] 100 mg PO BID 11/22/16 11/22/16 Famotidine [Pepcid] 20 mg PO BID 11/22/16 11/22/16 HYDROcodone/APAP 7.5-325MG [[place] 1 tab PO Q6HR PRN 11/22/16 11/22/16 7.5-325] Previous Rx's Medication Instructions Recorded Budesonide-Formot 160-4.5 Mcg 2 puff INHALATION RT-BID #1 puff 07/08/15 [Symbicort 160-4.5 Mcg Inhaler] Albuterol Nebulized [Ventolin 2.5 mg INHALATION RT-QID #0 11/13/16 Nebulized] Folic Acid 1 mg PO DAILY@1200 #30 tab 11/13/16 Montelukast [Singulair] 10 mg PO HS #30 tab 11/13/16 Thiamine [Vitamin B-1] 100 mg PO DAILY #30 tablet 11/13/16 guaiFENesin SYRUP 100MG/5ML 200 mg PO Q4H PRN #0 cup 11/13/16 [Robitussin] ALPRAZolam [Xanax] 0.5 mg PO Q8HR PRN #10 tablet 11/20/16 Allergies Allergy/AdvReac Type Severity Reaction Status Date / Time morphine Allergy Rash/Hives Verified 11/22/16 18:02 aspirin AdvReac Severe Bleeding Verified 11/22/16 18:02 NSAIDS (Non-Steroidal AdvReac Severe Can't take Verified 11/22/16 18:02 Anti-Inflamma due to Hx of stroke. Review of Systems ROS Statement: Those systems with pertinent positive or pertinent negative responses have been documented in the HPI. ROS Other: All systems not noted in ROS Statement are negative. 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,PER PAST MEDICAL HX NOTED C2 fracture(FROM 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 - Past Family History Mother Family Medical History: Cancer Additional Family Medical History / Comment(s): Pt believes his Mom of Kidney Ca, but not 100% sure. Father Family Medical History: Cancer, Respiratory Disorder Additional Family Medical History / Comment(s): Melonoma General Exam - General Exam Comments Initial Comments: General: Awake and Alert. No acute distress. Does not appear acutely ill. Eyes: FAHAD, EOM intact. No nystagmus. No scleral icterus. HENT: Atraumatic, normocephalic. Mucous membranes moist. Trachea midline. Neck: The neck is supple, there is no tenderness or JVD. Cardiovascular: Regular rate and rhythm. No murmur, rub, or gallop is appreciated. Distal pulses intact. Respiratory: Tachypneic. Lungs are clear to auscultation bilaterally. Distant lung sounds with diffuse wheezes. No rales, rhonchi. Mild respiratory distress. Gastrointestinal: Soft, Nontender. No rebound or guarding. Non-distended. No masses or organomegaly noted. No CVA tenderness. Musculoskeletal: No tenderness. Normal ROM. No gross deformity. No strength deficits. Neurological: A&Ox3. CN II-XII grossly intact, There are no obvious motor or sensory deficits. Coordination appears grossly intact. Speech is normal. Skin: Skin is warm and dry and no rashes or lesions are noted. Psychiatric: Cooperative, appropriate mood & affect, normal judgment. Limitations: no limitations Course Vital Signs 11/22/16 11/22/16 11/22/16 16:17 17:01 17:15 Temperature 97.5 F L Pulse Rate 90 90 90 Respiratory 20 Rate Blood Pressure 129/78 O2 Sat by Pulse 96 Oximetry 11/22/16 11/22/16 11/22/16 18:18 18:19 19:11 Temperature 98.4 F 97.8 F Pulse Rate 83 92 103 H Respiratory 16 18 Rate Blood Pressure 129/71 125/67 O2 Sat by Pulse 95 94 L Oximetry EKG Findings - EKG Comments: EKG Findings:: EKG 16:46. Normal sinus rhythm. Rate 83. NE 126. QRS 90. QT/ QTC 364/427. Normal axis. Biatrial enlargement. No STEMI. Nonspecific EKG. Similar to prior EKG 11/14/2016. Medical Decision Making - Medical Decision Making 56-year-old male presenting for shortness of breath. Symptoms likely secondary to COPD exacerbation. Patient is given breathing treatments in addition to IV Decadron. Discussed trying different type of steroid as he states Medrol has caused panic attacks in the past. Chest x-ray was performed without evidence of acute process. Lab work with leukocytosis, which is likely due to recent steroid use. BMP stable. Patient reevaluated after multiple breathing treatments and steroids and remains short of breath. His SpO2 at rest on room air is 88%. Started on O2. He does not wear O2 at home. Given his persistent hypoxia and shortness of breath plan for admission for COPD exacerbation. Pt is agreeable to this. Spoke with Dr. Cano, agrees with plan for admission. - Lab Data Result diagrams: 11/22/16 16:45 11/22/16 16:45 Lab Results 11/22/16 11/22/16 Range/Units 16:45 16:45 WBC 14.4 H (3.8-10.6) k/uL RBC 4.95 (4.30-5.90) m/uL Hgb 16.8 (13.0-17.5) gm/dL Hct 50.7 (39.0-53.0) % MCV 102.4 H (80.0-100.0) fL MCH 33.9 (25.0-35.0) pg MCHC 33.1 (31.0-37.0) g/dL RDW 13.3 (11.5-15.5) % Plt Count 247 (150-450) k/uL Neutrophils % 92 % Lymphocytes % 4 % Monocytes % 2 % Eosinophils % 1 % Basophils % 0 % Neutrophils # 13.3 H (1.3-7.7) k/uL Lymphocytes # 0.6 L (1.0-4.8) k/uL Monocytes # 0.3 (0-1.0) k/uL Eosinophils # 0.2 (0-0.7) k/uL Basophils # 0.0 (0-0.2) k/uL Macrocytosis Slight Sodium 138 (137-145) mmol/L Potassium 4.7 (3.5-5.1) mmol/L Chloride 101 (98-107) mmol/L Carbon Dioxide 28 (22-30) mmol/L Anion Gap 9 mmol/L BUN 17 (9-20) mg/dL Creatinine 0.59 L (0.66-1.25) mg/dL Est GFR (MDRD) Af Amer >60 (>60 ml/min/1.73 sqM) Est GFR (MDRD) Non-Af >60 (>60 ml/min/1.73 sqM) Glucose 88 (74-99) mg/dL Calcium 9.1 (8.4-10.2) mg/dL - EKG Data -: EKG Interpreted by Me EKG shows normal: sinus rhythm Rate: normal When compared to previous EKG there are: no significant change Interpretation: no acute changes, unchanged when compared to prior tracing (date ) - Radiology Data Radiology results: report reviewed, image reviewed Disposition Clinical Impression: COPD exacerbation, Hypoxia Disposition: ADMITTED IP TO THIS HOSP Condition: Stable Referrals: Urszula Carrasco MD [Primary Care Provider] - 1-2 days Decision to Admit Reason: Admit from EC
[2016-11-22 17:03] LABS: Anion Gap 9 mmol/L; Blood Urea Nitrogen 17 mg/dL (9-20); Calcium 9.1 mg/dL (8.4-10.2); Carbon Dioxide 28 mmol/L (22-30); Chloride 101 mmol/L (98-107); Glucose 88 mg/dL (74-99); Non-African American GFR(MDRD) >60 (>60 ml/min/1.73 sqM); Potassium 4.7 mmol/L (3.5-5.1); Sodium 138 mmol/L (137-145)
--- NOTE | 2016-11-22 17:03 | XR ---
EXAMINATION TYPE: XR chest 2V DATE OF EXAM: 11/22/2016 4:57 PM HISTORY: sob. REFERENCE: Previous study dated 11/19/2016. FINDINGS: Lungs are overinflated but clear. Pleural spaces are clear. The heart is not enlarged. IMPRESSION: COPD.
[2016-11-22] MEDS ORDERED: ACETAMINOPHEN TAB 325 MG TAB PO PRN (19:16)
[2016-11-22] MEDS ORDERED: NALOXONE 0.4 MG/ML 1 ML VIAL IV PRN (19:16)
[2016-11-22] MEDS ORDERED: ONDANSETRON 4 MG/2 ML VIAL IVP PRN (19:16)
[2016-11-22] MEDS ORDERED: ALBUTEROL NEBULIZED 2.5 MG/3 ML INHALATION SCH (20:00)
[2016-11-22 20:30] LABS: Glucose,Whole Blood 243 mg/dL (75-99)
[2016-11-22] MEDS ORDERED: TEMAZEPAM 15 MG CAP PO PRN ×2 (21:54→21:59)
[2016-11-22] MEDS: DEXAMETHASONE SOD PHOSPHATE 10 MG/ML 1 ML VIAL IV SCH (22:46)
[2016-11-22] MEDS: LEVOFLOXACIN 500MG-D5W PMX 500 MG in DEXTROSE/WATER 1 100ML.BAG IVPB SCH (22:47)
[2016-11-22] MEDS: HEPARIN SODIUM,PORCINE 5,000 UNIT/ML 1 ML VIAL SQ SCH (23:52)
[2016-11-23] MEDS: ALBUTEROL NEBULIZED 2.5 MG/3 ML INHALATION PRN ×2 (04:50→23:53)
[2016-11-23 07:08] LABS: Glucose,Whole Blood 155 mg/dL (75-99)
[2016-11-23] MEDS ORDERED: PANTOPRAZOLE 40 MG TABLET PO SCH (07:30)
[2016-11-23 08:15] LABS: Basophils % (A) 0 %; CH 34.2; CHCM 33.4; Eosinophils # (A) 0.1 k/uL (0-0.7); Eosinophils % (A) 0 %; HCT 45.8 % (39.0-53.0); HDW 2.07; HGB 15.5 gm/dL (13.0-17.5); Luc # (Auto) 0.04; Luc % (Auto) 0; Lymphocytes # (A) 0.3 k/uL (1.0-4.8); Lymphocytes % (A) 2 %; MCH 34.8 pg (25.0-35.0); MCHC 33.8 g/dL (31.0-37.0); Macrocytosis Slight; Mean Platelet Volume 6.6; Monocytes # (A) 0.4 k/uL (0-1.0); Monocytes % (A) 2 %; Neutrophils % (A) 95 %; RBC 4.45 m/uL (4.30-5.90); RDW 13.3 % (11.5-15.5); WBC 17.9 k/uL (3.8-10.6); WBC (Perox) 19.09
[2016-11-23 08:26] LABS: Anion Gap 9 mmol/L; Blood Urea Nitrogen 14 mg/dL (9-20); Calcium 8.9 mg/dL (8.4-10.2); Carbon Dioxide 26 mmol/L (22-30); Chloride 98 mmol/L (98-107); Glucose 145 mg/dL (74-99); Non-African American GFR(MDRD) >60 (>60 ml/min/1.73 sqM); Potassium 4.2 mmol/L (3.5-5.1); Sodium 133 mmol/L (137-145)
[2016-11-23] MEDS: IPRATROPIUM 0.5 MG/2.5 ML NEBU INHALATION SCH ×3 (08:49→19:27)
[2016-11-23] MEDS: LEVALBUTEROL NEB (CONC) 1.25 MG/0.5 ML AMP INHALATION SCH (08:49)
[2016-11-23] MEDS: BUDESONIDE 1 MG/2 ML NEBU INHALATION SCH ×2 (08:49→19:22)
[2016-11-23] MEDS: FORMOTEROL FUMARATE 20 MCG/2 ML NEBU INHALATION SCH ×2 (08:49→19:22)
--- NOTE | 2016-11-23 09:35 | HP ---
DATE OF ADMISSION: DATE OF SERVICE: 11/22/2016 CHIEF COMPLAINT: Shortness of breath. HISTORY OF PRESENT ILLNESS: This 56-year-old gentleman with a past medical history of multiple medical problems including COPD, CVA, GERD, hypertension, history of pneumonia, history of panic disorder, history of nicotine dependence being followed by Dr. Urszula Carrasco in the outpatient setting, was complaining of shortness of breath and cough and sputum. The patient was on Medrol Dosepak by the PCP one week ago but because of lack of improvement patient came to [facility] and admitted for further evaluation and treatment. Patient apparently had a manic episode also. The chest x-ray on admission showed COPD, no evidence of pneumonia. PAST MEDICAL HISTORY: History of COPD, history of CVA, GERD, hypertension, history of pneumonia. Medications prior to admission include home medications are: 1. Keppra 500 mg q.a.m. 2. Robitussin 200 mg q.4 p.r.n. 3. Norvasc 10 mg p.o. daily. 4. Vitamin B1, 100 mg p.o. daily. 5. Multivitamins 1 p.o. daily. 6. Singulair 10 mg q.h.s. 7. Hydrocodone 7.5 q.6 p.r.n. 8. Folic acid 1 mg daily. 9. Pepcid 20 mg b.i.d. 10. Vibramycin 100 mg p.o. b.i.d. 11. Symbicort 160/4.5, two puffs b.i.d. 12. Ventolin HFA 2 puffs q.i.d. p.r.n. 13. Xanax 0.5 q.8 p.r.n. Allergies are MORPHINE, ASPIRIN and NSAIDs. FAMILY HISTORY: History of kidney cancer possibly. SOCIAL HISTORY: History of smoking previously. Occasional alcohol intake. REVIEW OF SYSTEMS: ENT: No diminishing hearing or diminished vision. CARDIOVASCULAR: As mentioned earlier. RESPIRATORY: As mentioned earlier. GI: No nausea. : No dysuria. NERVOUS SYSTEM: No numbness or weakness. ALLERGY/IMMUNOLOGY: No history of asthma or hayfever. MUSCULOSKELETAL: As mentioned earlier. HEMATOLOGY/ONCOLOGY: No history of anemia. ENDOCRINE: As mentioned earlier. CONSTITUTIONAL: As mentioned earlier. DERMATOLOGY: Negative. RHEUMATOLOGY: Negative. PSYCHIATRY: As mentioned earlier. PHYSICAL EXAMINATION: The patient is alert and oriented x3. Pulse is 103, blood pressure 125/67, respirations 18, temperature 97.8, pulse ox 94% on 2 L. HEENT: Conjunctivae normal. Oral mucosa moist. NECK: No jugular venous distention. No carotid bruit. No lymph node enlargement. CARDIOVASCULAR: S1 and S2, muffled. No S3, no S4. RESPIRATORY: Breath sounds diminished at the bases. Bilateral scattered rhonchi and crackles. Expiratory wheezing also present. ABDOMEN: Soft, nontender. No mass palpable. LEGS: No edema, no swelling. NERVOUS SYSTEM: Higher function as mentioned earlier. Moves all 4 limbs. No focal deficits. LYMPHATICS: No lymphadenopathy of neck, axillae or groin. SKIN: No ulcer, rash or bleeding. LABS: WBC 14.4, MCV 102.4. ASSESSMENT: 1. Chronic obstructive pulmonary disease acute exacerbation with acute purulent tracheobronchitis with failure of outpatient treatment. 2. Increased WBC. 3. Increased MCV. 4. Diabetes mellitus type 2, possible steroid induced. 5. Chronic obstructive pulmonary disease. 6. History of cerebrovascular accident, transient ischemic attack. 7. History of gastroesophageal reflux disease. 8. Hypertension, essential. 9. History of pneumonia. 10. History of cerebrovascular accident with basal ganglia hemorrhage previously. 11. History of C2 fracture. 12. History of degenerative joint disease. 13. History of frozen shoulder. 14. History nicotine dependence. 15. History of THC remotely. RECOMMENDATIONS AND DISCUSSION: In this 56-year-old gentleman who presented with multiple complex medical issues, will monitor the patient closely. Continue the current medications. Continue symptomatic treatment. Otherwise, continue with bronchodilators, intravenous steroids and empiric antibiotics. Patient also seen Dr. Radha Chester. Will consult Dr. Radha Chester and continue to monitor. Guarded prognosis. Further recommendations to follow.
[2016-11-23] MEDS: DEXAMETHASONE SOD PHOSPHATE 10 MG/ML 1 ML VIAL IV SCH ×2 (09:40→21:50)
[2016-11-23] MEDS: levETIRAcetam 500 MG TAB PO SCH (09:40)
[2016-11-23] MEDS: HEPARIN SODIUM,PORCINE 5,000 UNIT/ML 1 ML VIAL SQ SCH ×3 (09:40→23:58)
[2016-11-23] MEDS: THIAMINE 100 MG TAB PO SCH (09:40)
[2016-11-23] MEDS: FAMOTIDINE 20 MG TAB PO SCH ×2 (09:40→21:50)
[2016-11-23] MEDS: amLODIPine 10 MG TAB PO SCH (09:40)
[2016-11-23 11:29] LABS: Glucose,Whole Blood 237 mg/dL (75-99)
[2016-11-23] MEDS: HYDROcodone/APAP 7.5-325MG 1 EACH TAB PO PRN ×2 (11:58→18:17)
[2016-11-23] MEDS: CHLORPHEN-HYDROcod 8-10mg/5ml 5 ML ORAL.SYRG PO SCH ×2 (11:59→21:48)
--- NOTE | 2016-11-23 13:01 | P.CNPUL ---
History of Present Illness Consult date: 11/23/16 Reason for consult: dyspnea, COPD Chief complaint: Shortness of breath History of present illness: This is a 56-year-old gentleman who presented to emergency department complaining of shortness of breath. The patient has had multiple admissions to [facility] as well as the [facility]. The patient has known COPD. He states his shortness of breath began again yesterday morning. He states he is coughing and has occasional phlegm. He denies fevers and chills. He denies going home and smoking. He states he was given a Medrol Dosepak recently and did feel better with that. He uses albuterol nebulizer 4 times a day. He also has Ventolin and Symbicort he uses twice a day. Review of Systems All systems: negative 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,PER PAST MEDICAL HX NOTED C2 fracture(FROM [facility]-NOT ABLE TO CONFIRM WITH PT), Osteoarthritis, DJD, "FROZEN SHOULDER SYNDROME (RT)" , [place]-PT STATED IN THE Last Myocardial Infarction Date:: unknown History of Any Multi-Drug Resistant Organisms: None Reported Past Surgical History: Orthopedic Surgery Additional Past Surgical History / Comment(s): neck fx, metal plate left hand middle finger Past Anesthesia/Blood Transfusion Reactions: No Reported Reaction Past Psychological History: Panic Disorder Additional Psychological History / Comment(s): 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 - Past Family History Mother Family Medical History: Cancer Additional Family Medical History / Comment(s): Pt believes his Mom of Kidney Ca, but not 100% sure. Father Family Medical History: Cancer, Respiratory Disorder Additional Family Medical History / Comment(s): Melonoma Medications and Allergies Home Medications Medication Instructions Recorded Confirmed Type amLODIPine [Norvasc] 10 mg PO DAILY 02/07/15 11/22/16 History levETIRAcetam [Keppra] 500 mg PO QAM 02/07/15 11/22/16 History Albuterol Sulfate [Ventolin HFA] 2 puff INHALATION RT-QID PRN 03/31/15 11/22/16 History Multivitamins, Thera [Multivitamin 1 tab PO DAILY@1200 11/14/16 11/22/16 History (formulary)] Doxycycline Hyclate [Vibramycin] 100 mg PO BID 11/22/16 11/22/16 History Famotidine [Pepcid] 20 mg PO BID 11/22/16 11/22/16 History HYDROcodone/APAP 7.5-325MG [[place] 1 tab PO Q6HR PRN 11/22/16 11/22/16 History 7.5-325] Allergies Allergy/AdvReac Type Severity Reaction Status Date / Time morphine Allergy Rash/Hives Verified 11/22/16 18:02 aspirin AdvReac Severe Bleeding Verified 11/22/16 18:02 NSAIDS (Non-Steroidal AdvReac Severe Can't take Verified 11/22/16 18:02 Anti-Inflamma due to Hx of stroke. Physical Exam Osteopathic Statement: *. No significant issues noted on an osteopathic structural exam other than those noted in the History and Physical/Consult. Vitals: Vital Signs Temp Pulse Pulse Resp BP Pulse Ox 11/23/16 09:09 80 11/23/16 08:58 84 11/23/16 08:57 84 11/23/16 08:50 84 95 11/23/16 08:00 81 18 11/23/16 07:00 96.0 F L 81 18 124/76 95 11/23/16 05:00 88 11/23/16 04:52 84 11/22/16 21:33 88 11/22/16 21:23 84 11/22/16 21:15 98.5 F 93 16 121/65 94 L 11/22/16 20:10 93 16 Intake and Output 11/22/16 11/23/16 11/23/16 22:59 06:59 14:59 Intake Total 340 Balance 340 Intake: Intake, IV Titration 100 Amount Levofloxacin 500Mg-D5w 100 Pmx 500 mg In Dextrose/ Water 1 100ml.bag @ 100 mls/hr IVPB Q24H [facility] Rx#: [id number] Oral 240 Other: # Voids 1 1 Weight 65.317 kg Patient Weight 11/24/16 06:59 Weight 65.317 kg Gen.: Patient is alert and oriented 3, no acute distress Cardiovascular: Regular rate and rhythm, S1/S2 Lungs: Expiratory wheezing bilaterally Abdomen: Soft nontender nondistended positive bowel sounds Extremities: No edema Results - Laboratory Findings CBC and BMP: 11/23/16 07:49 11/23/16 07:49 Abnormal lab findings: Abnormal Labs 11/22/16 11/23/16 11/23/16 20:25 07:07 07:49 WBC 17.9 H MCV 103.0 H Neutrophils # 17.0 H Lymphocytes # 0.3 L Sodium Creatinine Glucose POC Glucose (mg/dL) 243 H 155 H 11/23/16 11/23/16 07:49 11:22 WBC MCV Neutrophils # Lymphocytes # Sodium 133 L Creatinine 0.47 L Glucose 145 H POC Glucose (mg/dL) 237 H - Diagnostic Findings Chest x-ray: report reviewed, image reviewed Assessment and Plan Plan: Acute exacerbation of COPD Tracheobronchitis Emphysema Leukocytosis Hyponatremia Diabetes mellitus type II, hyperglycemia, possibly steroid induced Active tobacco abuse History of CVA Chronic pain syndrome GERD Hypertension O2 to maintain saturation greater than or equal to 88% Pulmicort Duo nebs Steroid taper Antibiotics Perforomist Sonnyulair Smoking cessation is highly recommended Incentive spirometry and pulmonary hygiene GI and DVT prophylaxis Outpatient pulmonary follow-up with PFT Thank you for this consultation. We will continue to follow along.
[2016-11-23] MEDS: FOLIC ACID 1 MG TAB PO SCH (15:02)
[2016-11-23] MEDS: MULTIVITAMINS, THERA 1 EACH TAB PO SCH (15:02)
[2016-11-23] MEDS: IPRATROPIUM-ALBUTEROL 3 ML NEB INHALATION SCH ×2 (15:24→19:22)
[2016-11-23 17:08] LABS: Glucose,Whole Blood 139 mg/dL (75-99)
[2016-11-23] MEDS: INSULIN LISPRO (humaLOG) 300 UNIT/3 ML VIAL SQ SCH ×2 (18:14→21:50)
--- NOTE | 2016-11-23 21:08 | PN ---
DATE OF SERVICE: 11/23/2016 This 56-year-old gentleman, admitted with COPD, acute exacerbation, is being closely monitored. No chest pain. No palpitation. No fever. Dr. King has also seen the patient. On exam, alert and oriented x3. Pulse 78, blood pressure 109/63, respiration 18, temperature 98.1, pulse ox 93% on 2 L. HEENT: Conjunctivae normal. Oral mucosa moist. NECK: No jugular venous distention. No carotid bruit. No lymph node enlargement. CARDIOVASCULAR SYSTEM: S1, S2 muffled. RESPIRATORY SYSTEM: Breath sounds diminished at the bases. Bilateral scattered rhonchi and expiratory wheezing also present. LEGS: No edema. No swelling. NERVOUS SYSTEM: No focal deficit. LABS: WBC 17.9. Accu-Cheks are noted. ASSESSMENT: 1. Chronic obstructive pulmonary disease, acute exacerbation, with acute purulent tracheobronchitis with failure of outpatient treatment. 2. Increased white count. 3. Increased mean corpuscular volume. 4. Diabetes mellitus, type 2, uncontrolled, possibly steroid-induced. 5. Chronic obstructive pulmonary disease history. 6. History of cerebrovascular accident, transient ischemic attack. 7. History of gastroesophageal reflux disease. 8. Hypertension, essential. 9. History of pneumonia. 10. History of cerebrovascular accident with basal ganglia hemorrhage previously. 11. History of C2 fracture apparently. 12. History of degenerative joint disease. 13. History of frozen shoulder. 14. History of nicotine dependence. 15. History of tetrahydrocannabinol remotely. 16. FULL CODE. RECOMMENDATIONS AND DISCUSSION: In this 56-year-old gentleman who presented with multiple complex medical issues, we will monitor the patient closely, continue the current medications, continue symptomatic treatment. Otherwise, continue the bronchodilators. Continue steroids. Closely follow with Pulmonary. Further recommendations to follow. The patient is on dexamethasone IV.
[2016-11-23 21:34] LABS: Glucose,Whole Blood 155 mg/dL (75-99)
[2016-11-23] MEDS: LEVOFLOXACIN 500MG-D5W PMX 500 MG in DEXTROSE/WATER 1 100ML.BAG IVPB SCH (21:49)
[2016-11-23] MEDS: MONTELUKAST 10 MG TAB PO SCH (21:50)
[2016-11-24] MEDS: ALPRAZolam 0.5 MG TAB PO PRN ×2 (01:02→20:47)
[2016-11-24 02:13] LABS: Glucose,Whole Blood 128 mg/dL (75-99)
[2016-11-24] MEDS: ALBUTEROL NEBULIZED 2.5 MG/3 ML INHALATION PRN (04:06)
[2016-11-24] MEDS: HYDROcodone/APAP 7.5-325MG 1 EACH TAB PO PRN ×3 (05:28→18:32)
[2016-11-24 07:17] LABS: Glucose,Whole Blood 110 mg/dL (75-99)
[2016-11-24] MEDS: IPRATROPIUM-ALBUTEROL 3 ML NEB INHALATION SCH ×5 (07:56→21:19)
[2016-11-24] MEDS: BUDESONIDE 1 MG/2 ML NEBU INHALATION SCH ×2 (07:57→21:19)
[2016-11-24] MEDS: FORMOTEROL FUMARATE 20 MCG/2 ML NEBU INHALATION SCH ×2 (07:57→21:19)
[2016-11-24] MEDS: FAMOTIDINE 20 MG TAB PO SCH ×2 (08:49→20:47)
[2016-11-24] MEDS: INSULIN LISPRO (humaLOG) 300 UNIT/3 ML VIAL SQ SCH ×4 (08:49→20:50)
[2016-11-24] MEDS: HEPARIN SODIUM,PORCINE 5,000 UNIT/ML 1 ML VIAL SQ SCH ×2 (08:49→16:32)
[2016-11-24] MEDS: levETIRAcetam 500 MG TAB PO SCH (08:50)
[2016-11-24] MEDS: DEXAMETHASONE SOD PHOSPHATE 10 MG/ML 1 ML VIAL IV SCH ×2 (08:50→20:46)
[2016-11-24] MEDS: THIAMINE 100 MG TAB PO SCH (08:50)
[2016-11-24] MEDS: FOLIC ACID 1 MG TAB PO SCH (08:50)
[2016-11-24] MEDS: amLODIPine 10 MG TAB PO SCH (08:50)
[2016-11-24] MEDS: MULTIVITAMINS, THERA 1 EACH TAB PO SCH (08:51)
[2016-11-24] MEDS: IPRATROPIUM 0.5 MG/2.5 ML NEBU INHALATION SCH ×3 (08:53→21:19)
[2016-11-24] MEDS: CHLORPHEN-HYDROcod 8-10mg/5ml 5 ML ORAL.SYRG PO SCH ×2 (09:00→20:47)
[2016-11-24 11:17] LABS: Hemoglobin A1C 5.6 % (4.2-6.1)
[2016-11-24 12:55] LABS: Glucose,Whole Blood 150 mg/dL (75-99)
[2016-11-24 17:22] LABS: Glucose,Whole Blood 124 mg/dL (75-99)
--- NOTE | 2016-11-24 18:46 | PN ---
DATE OF SERVICE: 11/24/2016 He continues to have shortness of breath, but is doing slightly better than when he came in. On physical examination, his blood pressure is 120/72, respiratory rate 16, pulse rate 83, temperature 98, O2 sat on room air is 97%. HEENT is unremarkable. Chest reveals expiratory wheeze. Cardiovascular system reveals S1 and S2. ABDOMEN: Soft. There is no edema. Labs reveal a white count of 17.9, hemoglobin 15.5. IMPRESSION: 1. Chronic obstructive pulmonary disease with acute exacerbation. 2. Chronic pain. 3. Diabetes mellitus in part steroid related. 4. Asthma with exacerbation. 5. Medical debility. At this point in time, continue Singulair, bronchodilators, systemic steroids and Pulmicort. Have him seen by physical medicine rehab as well and she if he is a candidate for inpatient rehab. Keep him on GI and DVT prophylaxis along with antibiotics. His prognosis at this time is fair.
[2016-11-24 20:40] LABS: Glucose,Whole Blood 207 mg/dL (75-99)
[2016-11-24] MEDS: LEVOFLOXACIN 500 MG TAB PO SCH (20:47)
[2016-11-24] MEDS: MONTELUKAST 10 MG TAB PO SCH (20:47)
[2016-11-25] MEDS: HYDROcodone/APAP 7.5-325MG 1 EACH TAB PO PRN ×4 (00:36→21:14)
[2016-11-25] MEDS: HEPARIN SODIUM,PORCINE 5,000 UNIT/ML 1 ML VIAL SQ SCH ×4 (00:37→23:21)
[2016-11-25] MEDS: ALBUTEROL NEBULIZED 2.5 MG/3 ML INHALATION PRN ×2 (01:25→03:50)
[2016-11-25 07:37] LABS: Glucose,Whole Blood 167 mg/dL (75-99)
[2016-11-25] MEDS: amLODIPine 10 MG TAB PO SCH (08:30)
[2016-11-25] MEDS: MULTIVITAMINS, THERA 1 EACH TAB PO SCH (08:30)
[2016-11-25] MEDS: THIAMINE 100 MG TAB PO SCH (08:30)
[2016-11-25] MEDS: levETIRAcetam 500 MG TAB PO SCH (08:30)
[2016-11-25] MEDS: FOLIC ACID 1 MG TAB PO SCH (08:30)
[2016-11-25] MEDS: FAMOTIDINE 20 MG TAB PO SCH ×2 (08:30→21:09)
[2016-11-25] MEDS: CHLORPHEN-HYDROcod 8-10mg/5ml 5 ML ORAL.SYRG PO SCH ×2 (08:31→21:08)
[2016-11-25] MEDS: INSULIN LISPRO (humaLOG) 300 UNIT/3 ML VIAL SQ SCH ×4 (08:38→21:02)
[2016-11-25] MEDS: IPRATROPIUM-ALBUTEROL 3 ML NEB INHALATION SCH ×4 (08:59→20:22)
[2016-11-25] MEDS: FORMOTEROL FUMARATE 20 MCG/2 ML NEBU INHALATION SCH ×2 (09:01→20:22)
[2016-11-25] MEDS: BUDESONIDE 1 MG/2 ML NEBU INHALATION SCH ×2 (09:01→20:22)
[2016-11-25] MEDS: IPRATROPIUM 0.5 MG/2.5 ML NEBU INHALATION SCH ×3 (09:01→19:19)
--- NOTE | 2016-11-25 10:14 | PN ---
DATE OF SERVICE: 11/24/2016 This 56-year-old gentleman admitted with COPD acute exacerbation also had acute purulent tracheobronchitis, failure of outpatient treatment. The patient being followed by pulmonary Dr. Chester. No chest pain. No palpitations. No fever. On exam, alert and oriented x3. Pulse is 91, blood pressure 120/65, respiratory rate 16, temperature 97.9, pulse ox 92% on room air. HEENT: Conjunctivae normal. NECK: No jugular venous distention. CARDIOVASCULAR: S1, S2 muffled. RESPIRATORY: Breath sounds diminished in the bases. Scattered rhonchi and crackles. ABDOMEN: Soft, nontender. LEGS: No edema. No swelling. CENTRAL NERVOUS SYSTEM: No focal deficits. LABS: WBC 17.9, hemoglobin 15.5. ASSESSMENT: 1. Chronic obstructive pulmonary disease, acute exacerbation, with acute purulent tracheobronchitis with failure of outpatient treatment. 2. Increased WBC. 3. Increased MCV. 4. Diabetes mellitus type 2, uncontrolled, possible steroid induced. 5. Chronic obstructive pulmonary disease history. 6. History of cerebrovascular accident, transient ischemic attack. 7. History of gastroesophageal reflux disease. 8. Hypertension, essential. 9. History of pneumonia. 10. History of cerebrovascular incident with hemorrhage previously. 11. History of C2 fracture apparently. 12. History of degenerative joint disease. 13. History of frozen shoulder dependence. 14. History nicotine dependence. 15. History of THC remotely. 16. FULL CODE. RECOMMENDATIONS AND DISCUSSION: Recommend to continue current medications. Continue symptomatic treatment. Otherwise, closely follow with pulmonary, continue bronchodilators and antibiotics and further recommendations to follow. MTDD
[2016-11-25 11:52] LABS: Glucose,Whole Blood 146 mg/dL (75-99)
[2016-11-25] MEDS: DEXAMETHASONE SOD PHOSPHATE 10 MG/ML 1 ML VIAL IV SCH ×2 (12:00→21:09)
[2016-11-25] MEDS: ALPRAZolam 0.5 MG TAB PO PRN ×2 (12:15→21:08)
[2016-11-25 15:11] VITALS: RESP 18
[2016-11-25 17:06] LABS: Glucose,Whole Blood 121 mg/dL (75-99)
[2016-11-25 20:55] LABS: Glucose,Whole Blood 123 mg/dL (75-99)
[2016-11-25] MEDS: LEVOFLOXACIN 500 MG TAB PO SCH (21:09)
[2016-11-25] MEDS: MONTELUKAST 10 MG TAB PO SCH (21:09)
[2016-11-26] MEDS: ALBUTEROL NEBULIZED 2.5 MG/3 ML INHALATION PRN (00:57)
[2016-11-26] MEDS: HYDROcodone/APAP 7.5-325MG 1 EACH TAB PO PRN ×3 (02:52→18:00)
[2016-11-26] MEDS: guaiFENesin SYRUP 100MG/5ML 200 MG/10 ML CUP PO PRN (02:52)
--- NOTE | 2016-11-26 06:07 | P.CONS ---
History of Present Illness - Chief Complaint Medical debility - History of Present Illness I had the op to see patient for inpatient rehab consultation with regard to medical debility. He was admitted to [facility] November 22 with shortness of breath. Seen by pulmonary for COPD. Chest x-ray note COPD. I have added PT and OT at this time. Previous functional history, as elicited patient: 56-year-old left-handed white male who is single and will be moving to a rooming house. History smoking. Doesn't make alcohol or beer. Regular doctors Dr. Canela. Patient describes independent with own cooking, laundry, standing shower. Has not driven for years. Review of Systems Review of systems: ENT: Denies sneezes or discharge. Eyes: Denies discharge or photophobia. Cardiac: Denies chest pain or palpitation. Pulmonary: Denies cough or shortness of breath. Gastrointestinal: Denies nausea, emesis, constipation, diarrhea. Genitourinary: Denies discharge or frequency. Musculoskeletal: Denies muscle or bone aches. Neurologic: Denies motor or sensory change. Endocrine: Denies shakes or sweats. Oncology: Denies cancers. Dermatologic: Denies rash, itching, pruritus. ALLERGY/immunology: Denies sneezes, rashes. 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,PER PAST MEDICAL HX NOTED C2 fracture(FROM [facility]-NOT ABLE TO CONFIRM WITH PT), Osteoarthritis, DJD, "FROZEN SHOULDER SYNDROME (RT)" , CT-PT STATED IN THE Last Myocardial Infarction Date:: unknown History of Any Multi-Drug Resistant Organisms: None Reported Past Surgical History: Orthopedic Surgery Additional Past Surgical History / Comment(s): neck fx, metal plate left hand middle finger Past Anesthesia/Blood Transfusion Reactions: No Reported Reaction Past Psychological History: Panic Disorder Additional Psychological History / Comment(s): 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 - Past Family History Mother Family Medical History: Cancer Additional Family Medical History / Comment(s): Pt believes his Mom of Kidney Ca, but not 100% sure. Father Family Medical History: Cancer, Respiratory Disorder Additional Family Medical History / Comment(s): Melonoma Medications and Allergies Home Medications Medication Instructions Recorded Confirmed Type amLODIPine [Norvasc] 10 mg PO DAILY 02/07/15 11/22/16 History levETIRAcetam [Keppra] 500 mg PO QAM 02/07/15 11/22/16 History Albuterol Sulfate [Ventolin HFA] 2 puff INHALATION RT-QID PRN 03/31/15 11/22/16 History Multivitamins, Thera [Multivitamin 1 tab PO DAILY@1200 11/14/16 11/22/16 History (formulary)] Doxycycline Hyclate [Vibramycin] 100 mg PO BID 11/22/16 11/22/16 History Famotidine [Pepcid] 20 mg PO BID 11/22/16 11/22/16 History HYDROcodone/APAP 7.5-325MG [[place] 1 tab PO Q6HR PRN 11/22/16 11/22/16 History 7.5-325] Allergies Allergy/AdvReac Type Severity Reaction Status Date / Time morphine Allergy Rash/Hives Verified 11/22/16 18:02 aspirin AdvReac Severe Bleeding Verified 11/22/16 18:02 NSAIDS (Non-Steroidal AdvReac Severe Can't take Verified 11/22/16 18:02 Anti-Inflamma due to Hx of stroke. Physical Exam Vitals: Vital Signs Temp Pulse Pulse Resp BP Pulse Ox 11/26/16 01:05 88 11/26/16 00:57 84 11/25/16 22:51 97.9 F 101 H 18 135/70 95 11/25/16 20:41 84 11/25/16 20:33 84 11/25/16 20:30 84 11/25/16 20:22 84 11/25/16 17:03 88 11/25/16 16:53 92 11/25/16 16:00 101 H 18 11/25/16 15:00 97.8 F 101 H 18 129/71 93 L 11/25/16 13:30 90 11/25/16 13:14 92 20 11/25/16 09:15 92 11/25/16 09:09 90 11/25/16 09:08 90 11/25/16 09:00 88 20 11/25/16 08:00 93 20 11/25/16 07:00 98.0 F 93 20 119/67 97 Intake and Output 11/25/16 11/25/16 11/26/16 14:59 22:59 06:59 Intake Total 240 240 Balance 240 240 Intake: Oral 240 240 Other: Voiding Method Toilet Toilet # Voids 3 3 2 Weight 65.317 kg 65.317 kg Patient Weight 11/26/16 06:59 Weight 65.317 kg Skin: Good color, texture, turgor. General: Medium build and comfortable appearance. Head: Normocephalic, atraumatic. Eyes: Symmetric. Pupils equal round. Ears: Symmetric. Hearing within normal limits. Mouth: Clear. Neck: Supple. Carotid without bruit. Cardiac: Regular rate and rhythm. Lungs: Clear anteriorly and posteriorly. Abdomen: Soft active nontender. Extremities: Normal tone. Neurological: Mental status: Alert, cooperative, pleasant. Cranial nerves: Symmetric facial tone and trapezius. Motor: Normal strength and isolation all 4 limbs. Sensation: Intact throughout. DTRs: Symmetric and equal throughout. Mobility: Reports independent in room and bathroom. Results CBC & Chem 7: 11/23/16 07:49 11/23/16 07:49 Labs: Abnormal Lab Results - Last 24 Hours (Table) 11/25/16 11/25/16 11/25/16 Range/Units 07:23 11:51 16:59 POC Glucose (mg/dL) 167 H 146 H 121 H (75-99) mg/dL 11/25/16 Range/Units 20:53 POC Glucose (mg/dL) 123 H (75-99) mg/dL Chest x-ray: report reviewed (COPD.) Assessment and Plan (1) COPD exacerbation Status: Acute Plan: Impression: 1. Medical debility. 2. COPD exacerbation. 3. History of stroke. 4. Reflux. Comments and plan: I have described PT and OT. Anticipate patient will do well , that is safe and independent, and will not have need for inpatient rehab.
[2016-11-26 07:03] LABS: Glucose,Whole Blood 113 mg/dL (75-99)
[2016-11-26] MEDS: BUDESONIDE 1 MG/2 ML NEBU INHALATION SCH ×2 (07:04→19:26)
[2016-11-26] MEDS: FORMOTEROL FUMARATE 20 MCG/2 ML NEBU INHALATION SCH ×2 (07:04→19:26)
[2016-11-26] MEDS: IPRATROPIUM-ALBUTEROL 3 ML NEB INHALATION SCH ×5 (07:05→19:26)
[2016-11-26] MEDS: DEXAMETHASONE SOD PHOSPHATE 10 MG/ML 1 ML VIAL IV SCH ×2 (07:38→22:08)
[2016-11-26] MEDS: HEPARIN SODIUM,PORCINE 5,000 UNIT/ML 1 ML VIAL SQ SCH ×3 (07:38→23:18)
[2016-11-26] MEDS: amLODIPine 10 MG TAB PO SCH (07:38)
[2016-11-26] MEDS: THIAMINE 100 MG TAB PO SCH (07:38)
[2016-11-26] MEDS: FAMOTIDINE 20 MG TAB PO SCH ×2 (07:38→22:07)
[2016-11-26] MEDS: levETIRAcetam 500 MG TAB PO SCH (07:38)
[2016-11-26] MEDS: CHLORPHEN-HYDROcod 8-10mg/5ml 5 ML ORAL.SYRG PO SCH ×2 (07:42→22:07)
[2016-11-26] MEDS: INSULIN LISPRO (humaLOG) 300 UNIT/3 ML VIAL SQ SCH ×4 (07:48→22:04)
[2016-11-26 07:56] LABS: Basophils % (A) 0 %; CH 33.8; Eosinophils % (A) 0 %; HCT 41.4 % (39.0-53.0); HDW 2.13; HGB 13.9 gm/dL (13.0-17.5); Luc # (Auto) 0.04; Luc % (Auto) 0; Lymphocytes # (A) 0.2 k/uL (1.0-4.8); Lymphocytes % (A) 2 %; MCH 34.4 pg (25.0-35.0); MCHC 33.5 g/dL (31.0-37.0); MCV 102.7 fL (80.0-100.0); Macrocytosis Slight; Mean Platelet Volume 6.7; Monocytes # (A) 0.3 k/uL (0-1.0); Monocytes % (A) 3 %; Neutrophils # (A) 11.6 k/uL (1.3-7.7); Neutrophils % (A) 95 %; RBC 4.03 m/uL (4.30-5.90); WBC 12.2 k/uL (3.8-10.6); WBC (Perox) 12.94
[2016-11-26 08:11] LABS: Anion Gap 6 mmol/L; Blood Urea Nitrogen 21 mg/dL (9-20); Calcium 9.1 mg/dL (8.4-10.2); Carbon Dioxide 29 mmol/L (22-30); Chloride 99 mmol/L (98-107); Glucose 98 mg/dL (74-99); Non-African American GFR(MDRD) >60 (>60 ml/min/1.73 sqM); Potassium 4.8 mmol/L (3.5-5.1); Sodium 134 mmol/L (137-145)
--- NOTE | 2016-11-26 09:19 | PN ---
DATE OF SERVICE: 11/25/2016 This 56-year-old gentleman who was admitted with COPD acute exacerbation, acute tracheobronchitis, improved significantly. No chest pain or palpitation. No palpitation. No fever. Pulmonary is following the patient closely. On exam, alert and oriented x3. Pulse 101, blood pressure 110/70, respirations 18, temperature 97.8, pulse ox 93% on room air. HEENT: Conjunctivae normal. NECK: No jugular venous distention. CARDIOVASCULAR: S1, S2 muffled. RESPIRATORY: Breath sounds diminished in the bases. Bilateral scattered rhonchi and crackles. ABDOMEN: Soft, nontender. LEGS: No edema. No swelling. CENTRAL NERVOUS SYSTEM: No focal deficits. LABS: WBC 17.9. ASSESSMENT: 1. Chronic obstructive pulmonary disease, acute exacerbation, with acute purulent tracheobronchitis with failure of outpatient treatment. 2. Increased WBC. 3. Increased MCV. 4. Diabetes mellitus type 2, uncontrolled. 5. Chronic obstructive pulmonary disease history. 6. History of cerebrovascular accident, transient ischemic attack. 7. History of gastroesophageal reflux disease. 8. Hypertension, essential. 9. History of pneumonia. 10. History of cerebrovascular incident with basal ganglia hemorrhage previously. 11. History of C2 fracture apparently. 12. History of degenerative joint disease. 13. History of frozen shoulder 14. History nicotine dependence. 15. History of THC remotely. 16. FULL CODE. RECOMMENDATIONS AND DISCUSSION: Recommend to continue current medications, continue to monitor, continue symptomatic treatment. Otherwise, at this time I would recommend continue with bronchodilators. Follow closely with pulmonary. Guarded prognosis because of multiple complex medical issues. Further recommendations to follow.
[2016-11-26] MEDS: LEVALBUTEROL NEB (CONC) 1.25 MG/0.5 ML AMP INHALATION SCH (10:40)
--- NOTE | 2016-11-26 11:15 | P.PN ---
Subjective Principal diagnosis: Acute exacerbation of COPD Patient seen and examined. Patient states he feels very tired today. He states his breathing is little bit better. He denies any chest pain, fevers, chills. Objective - Vital Signs Vital signs: Vital Signs Temp 96.0 F L 11/26/16 07:00 Pulse 80 11/26/16 10:55 Resp 18 11/26/16 08:00 BP 125/75 11/26/16 07:00 Pulse Ox 93 L 11/26/16 07:07 Intake & Output 11/25/16 11/26/16 11/26/16 18:59 06:59 18:59 Intake Total 240 240 Balance 240 240 Weight 65.317 kg 65.317 kg 65.317 kg Intake: Oral 240 240 Other: Voiding Method Toilet Toilet Toilet # Voids 3 2 1 - Exam Gen.: Patient is alert and oriented 3, no acute distress Cardiovascular: Regular rate and rhythm, S1/S2 Lungs: Expiratory wheezing bilaterally Abdomen: Soft nontender nondistended positive bowel sounds Extremities: No edema - Labs CBC & Chem 7: 11/26/16 07:40 11/26/16 07:40 Labs: Abnormal Lab Results - Last 24 Hours (Table) 11/25/16 11/25/16 11/25/16 Range/Units 11:51 16:59 20:53 WBC (3.8-10.6) k/uL RBC (4.30-5.90) m/uL MCV (80.0-100.0) fL Neutrophils # (1.3-7.7) k/uL Lymphocytes # (1.0-4.8) k/uL Sodium (137-145) mmol/L BUN (9-20) mg/dL Creatinine (0.66-1.25) mg/dL POC Glucose (mg/dL) 146 H 121 H 123 H (75-99) mg/dL 11/26/16 11/26/16 11/26/16 Range/Units 06:59 07:40 07:40 WBC 12.2 H (3.8-10.6) k/uL RBC 4.03 L (4.30-5.90) m/uL MCV 102.7 H (80.0-100.0) fL Neutrophils # 11.6 H (1.3-7.7) k/uL Lymphocytes # 0.2 L (1.0-4.8) k/uL Sodium 134 L (137-145) mmol/L BUN 21 H (9-20) mg/dL Creatinine 0.64 L (0.66-1.25) mg/dL POC Glucose (mg/dL) 113 H (75-99) mg/dL Assessment and Plan Plan: Acute exacerbation of COPD Tracheobronchitis Emphysema Leukocytosis Hyponatremia Diabetes mellitus type II, hyperglycemia, possibly steroid induced Active tobacco abuse History of CVA Chronic pain syndrome GERD Hypertension O2 to maintain saturation greater than or equal to 88% Pulmicort Duo nebs Steroid taper Antibiotics Perforomist Singulair Smoking cessation is highly recommended Incentive spirometry and pulmonary hygiene GI and DVT prophylaxis Outpatient pulmonary follow-up with PFT Okay to DC from pulmonary standpoint
[2016-11-26 11:17] LABS: Glucose,Whole Blood 116 mg/dL (75-99)
--- NOTE | 2016-11-26 11:29 | PN ---
DATE OF SERVICE: 11/25/2016 He has been hemodynamically stable and continues to have shortness of breath. On physical examination, his vitals are stable. He is afebrile. His chest reveals prolonged expiration with expiratory wheeze. Cardiovascular system reveals an S1 and S2. Abdomen is soft. There is no pedal edema. Labs were reviewed. IMPRESSION: 1. Chronic obstructive pulmonary disease with acute exacerbation. 2. Chronic pain. 3. Diabetes mellitus. 4. Asthma with exacerbation. 5. Medical debility. Continue him on his current medications. Increase his activity level. Depending on how he does, we shall make further changes to his care.
[2016-11-26] MEDS: FOLIC ACID 1 MG TAB PO SCH (12:27)
[2016-11-26] MEDS: MULTIVITAMINS, THERA 1 EACH TAB PO SCH (12:27)
[2016-11-26 17:05] LABS: Glucose,Whole Blood 132 mg/dL (75-99)
[2016-11-26 20:27] LABS: Glucose,Whole Blood 120 mg/dL (75-99)
[2016-11-26] MEDS: MONTELUKAST 10 MG TAB PO SCH (22:08)
[2016-11-26] MEDS: LEVOFLOXACIN 500 MG TAB PO SCH (22:08)
--- NOTE | 2016-11-26 23:08 | PN ---
DATE OF SERVICE: 11/26/2016 This 56-year-old gentleman, admitted with COPD, acute exacerbation, is being closely monitored. No chest pain. No palpitation. No fever. Patient is complaining of tiredness. PT and OT have evaluated the patient. Dr. Guardado also evaluated the patient and recommended outpatient followup. On exam, alert and oriented x3. Pulse is 94, blood pressure 136/67, respiration 18, temperature 97. 6, pulse ox 93% on 2 L. HEENT: Conjunctivae normal. NECK: No jugular venous distention. CARDIOVASCULAR SYSTEM: S1, S2 muffled. RESPIRATORY SYSTEM: Breath sounds diminished at the bases. Bilateral scattered rhonchi and expiratory wheezing and crackles. ABDOMEN: Soft, nontender. LEGS: No edema. No swelling. NERVOUS SYSTEM: Higher functions as mentioned earlier. Moves all 4 limbs. No focal motor or sensory deficit. LYMPHATICS: No lymph node palpable in neck, axillae or groin. SKIN: No ulcer, rash, bleeding. LABS: WBC 12.2. Sodium is 134. ASSESSMENT: 1. Chronic obstructive pulmonary disease, acute exacerbation, with acute purulent tracheobronchitis with failure of outpatient treatment. 2. Increased white count. 3. Increased mean corpuscular volume. 4. Diabetes mellitus, type 2, uncontrolled. 5. Hyponatremia possibly hypovolemic. 6. Chronic obstructive pulmonary disease history. 7. History of cerebrovascular accident, transient ischemic attack. 8. History of gastroesophageal reflux disease. 9. Hypertension, essential. 10. History of pneumonia. 11. History of cerebrovascular incident with a history of basal ganglia hemorrhage previously. 12. History of C2 fracture apparently. 13. History of degenerative joint disease. 14. History of frozen shoulder. 15. History of nicotine dependence. 16. History of tetrahydrocannabinol remotely. 17. FULL CODE. RECOMMENDATIONS AND DISCUSSION: I recommend to continue with the current medications, continue with the monitoring, continue with symptomatic treatment. Otherwise, at this time I recommend continuing with the bronchodilators. Taper the steroids. Closely follow with Pulmonary. Guarded prognosis. Further recommendations to follow.
[2016-11-27] MEDS: HYDROcodone/APAP 7.5-325MG 1 EACH TAB PO PRN ×2 (05:06→10:55)
[2016-11-27 07:09] LABS: Glucose,Whole Blood 186 mg/dL (75-99)
[2016-11-27] MEDS: IPRATROPIUM-ALBUTEROL 3 ML NEB INHALATION SCH ×2 (07:12→11:11)
[2016-11-27] MEDS: BUDESONIDE 1 MG/2 ML NEBU INHALATION SCH (07:12)
[2016-11-27] MEDS: FORMOTEROL FUMARATE 20 MCG/2 ML NEBU INHALATION SCH (07:12)
[2016-11-27] MEDS: HEPARIN SODIUM,PORCINE 5,000 UNIT/ML 1 ML VIAL SQ SCH (07:38)
[2016-11-27] MEDS: DEXAMETHASONE SOD PHOSPHATE 10 MG/ML 1 ML VIAL IV SCH (07:38)
[2016-11-27] MEDS: levETIRAcetam 500 MG TAB PO SCH (07:38)
[2016-11-27] MEDS: amLODIPine 10 MG TAB PO SCH (07:38)
[2016-11-27] MEDS: FAMOTIDINE 20 MG TAB PO SCH (07:38)
[2016-11-27] MEDS: THIAMINE 100 MG TAB PO SCH (07:38)
[2016-11-27] MEDS: INSULIN LISPRO (humaLOG) 300 UNIT/3 ML VIAL SQ SCH ×2 (07:39→11:40)
[2016-11-27] MEDS: CHLORPHEN-HYDROcod 8-10mg/5ml 5 ML ORAL.SYRG PO SCH ×2 (07:52→14:08)
[2016-11-27 08:54] VITALS: BP 126/75; TEMP 98
[2016-11-27 08:54] LABS: Basophils % (A) 0 %; CH 34.1; Eosinophils % (A) 0 %; HCT 43.3 % (39.0-53.0); HDW 2.05; HGB 14.6 gm/dL (13.0-17.5); Luc # (Auto) 0.03; Luc % (Auto) 0; Lymphocytes # (A) 0.3 k/uL (1.0-4.8); Lymphocytes % (A) 2 %; MCH 35.1 pg (25.0-35.0); MCHC 33.8 g/dL (31.0-37.0); MCV 103.7 fL (80.0-100.0); Macrocytosis Slight; Mean Platelet Volume 6.6; Monocytes # (A) 0.3 k/uL (0-1.0); Monocytes % (A) 2 %; Neutrophils # (A) 14.1 k/uL (1.3-7.7); Neutrophils % (A) 96 %; RBC 4.18 m/uL (4.30-5.90); RDW 13.4 % (11.5-15.5); WBC 14.8 k/uL (3.8-10.6); WBC (Perox) 14.69
[2016-11-27 09:13] LABS: Anion Gap 8 mmol/L; Blood Urea Nitrogen 22 mg/dL (9-20); Calcium 9.3 mg/dL (8.4-10.2); Carbon Dioxide 30 mmol/L (22-30); Chloride 96 mmol/L (98-107); Glucose 141 mg/dL (74-99); Non-African American GFR(MDRD) >60 (>60 ml/min/1.73 sqM); Potassium 3.8 mmol/L (3.5-5.1); Sodium 134 mmol/L (137-145)
[2016-11-27] MEDS: guaiFENesin SYRUP 100MG/5ML 200 MG/10 ML CUP PO PRN (10:55)
[2016-11-27] MEDS: MULTIVITAMINS, THERA 1 EACH TAB PO SCH (10:58)
[2016-11-27] MEDS: FOLIC ACID 1 MG TAB PO SCH (10:58)
[2016-11-27 11:14] VITALS: PULSE 86
[2016-11-27 11:22] LABS: Glucose,Whole Blood 124 mg/dL (75-99)
--- NOTE | 2016-11-27 11:39 | DS ---
DATE OF ADMISSION: 11/22/2016 DATE OF DISCHARGE: FINAL DIAGNOSES: 1. Chronic obstructive pulmonary disease acute exacerbation with acute purulent tracheobronchitis with failure of outpatient treatment. 2. Increased WBC. 3. Increased MCV. 4. Diabetes, Type 2 uncontrolled. 5. History of chronic obstructive pulmonary disease. 6. History of cerebrovascular accident, transient ischemic attack. 7. History of gastroesophageal reflux disease. 8. History of hypertension, essential. 9. History of pneumonia. 10. History of CVI with basal ganglion hemorrhage previously. 11. History of C2 fracture apparently. 12. History of degenerative joint disease. 13. History of frozen shoulder. 14. History of nicotine dependence. 15. History of THC remotely. 16. FULL CODE. DISCHARGE DISPOSITION: The patient will be discharged in stable condition with guarded prognosis. Discharge cleared by . HISTORY OF PRESENT ILLNESS: This 56 -year-old gentleman with past medical history of multiple medical problems as mentioned earlier was admitted for COPD acute exacerbation. The patient also has acute purulent tracheobronchitis and failure of outpatient treatment also. The patient was treated with bronchodilators and steroids and other medications and pulmonary doctors and Dr. King saw the patient. On exam, vital signs stable. CARDIOVASCULAR: S1, S2 muffled. RESPIRATORY: Breath sounds diminished at the bases. A few scattered rhonchi and crackles. CENTRAL NERVOUS SYSTEM: No focal deficits. DISCHARGE ADVICE AND MEDICATIONS: 1. Diet is cardiac. 2. Activity limited until follow-up. 3. Follow-up with Dr. King in 2 weeks. 4. Follow up with Dr. Seaman in 2 to 3 days. 5. Xanax 0.25 p.r.n. 6. Albuterol/Atrovent updrafts q.i.d. and p.r.n. 7. Symbicort 160/4.5, 2 puffs b.i.d. 8. Pepcid 20 mg b.i.d. 9. Folic acid 1 mg daily. 10. [place] 7.5 q.6 p.r.n. 11. Levaquin 500 mg p.o. daily for 5 days. 12. Singulair 10 mg p.o. q.h.s. 13. Multivitamin 1 p.o. daily. 14. Thiamine 100 mg p.o. daily. 15. Norvasc 10 mg p.o. daily. 16. Guaifenesin 200 mg q.4 p.r.n. 17. Keppra 500 mg in the morning. . 18. Prednisone taper, so that will be 40 mg daily for 3 days, 30 mg daily for 3 days, 20 for 3 days, 10 for 3 day and discontinue. The patient will be discharged in stable condition with guarded prognosis. MTDD
--- NOTE | 2016-11-27 17:10 | PN ---
DATE OF SERVICE: 11/27/2016 He has been hemodynamically stable. He continues to have shortness of breath and feels slightly worse compared to yesterday. On physical examination, respiratory rate is 18, pulse rate 97. Oxygen saturation on 3 L by nasal cannula is 96%. Blood pressure 126/75. Temperature 98 degrees Fahrenheit. HEENT is unremarkable. Chest reveals prolonged expiration with expiratory wheeze. Cardiovascular system reveals an S1, S2. Abdomen is soft. There is 1+ pedal edema. Sodium is 134, potassium 3.8, chloride 96, bicarbonate 30. BUN 22, creatinine 0.61. White count 14.8. Hemoglobin of 14.6. IMPRESSION AT THIS TIME: 1. Asthma with chronic obstructive pulmonary disease with severe exacerbation. 2. Acute on chronic respiratory failure. At this point in time, continue IV Decadron, bronchodilators, aerosolized steroids and antibiotics. Increase his activity level. His prognosis at this time is guarded, both short-term and long-term.
--- NOTE | 2016-11-28 15:26 | DS ---
DATE OF ADMISSION: 11/22/2016 DATE OF DISCHARGE: 11/27/2016 FINAL DIAGNOSES: 1. Chronic obstructive pulmonary disease acute exacerbation, with acute purulent tracheobronchitis with failure of outpatient treatment. 2. Increased WBC. 3. Increased MCV. 4. Diabetes mellitus type 2, uncontrolled. 5. Hyponatremia, possibly hypovolemic. 6. Chronic obstructive pulmonary disease history. 7. History of cerebrovascular accident, transient ischemic attack. 8. History of gastroesophageal reflux disease. 9. History of hypertension, essential. 10. History of pneumonia. 11. History of CVI with a history of basal ganglia hemorrhage previously. 12. History of C2 fracture apparently. 13. History of degenerative joint disease. 14. History of frozen shoulder. 15. History of nicotine dependence. 16. History of THC remotely. 17. FULL CODE. DISCHARGE DISPOSITION: The patient will be discharged in stable condition with guarded prognosis. HISTORY OF PRESENT ILLNESS: This 56-year-old gentleman with a past medical history of multiple medical problems admitted with COPD acute exacerbation. Patient was treated with bronchodilators and steroids. Patient improved significantly. Dr. Radha Chester saw the patient during hospitalization. On exam, vitals are stable. CARDIOVASCULAR SYSTEM: S1, S2 muffled. RESPIRATORY: Breath sounds diminished at the bases. A few rhonchi. ABDOMEN: Soft. Nervous system: No focal deficits. DISCHARGE ADVICE AND MEDICATIONS: 1. Discharge diet is cardiac. 2. Activity limited until follow-up. 3. Follow up with Dr. Carrasco in 2 to 3 days. 4. Follow up with Dr. Radha Chester in one week. MEDICATIONS: As follows: 1. Xanax 0.5 q.8 p.r.n. 2. Ventolin 2.5 q.4 and p.r.n. 3. Symbicort 160/4.5, 2 puffs b.i.d. 4. Pepcid 20 mg daily. 5. Folic acid 1 mg daily. 6. [place]ord 7.5 q6h p.r.n. 7. Levaquin 500 mg p.o. daily for 5 days. 8. Singulair 10 mg q.h.s. 9. Multivitamins one p.o. daily. 10. Thiamine 100 mg daily. 11. Norvasc 10 mg p.o. daily. 12. Guaifenesin 200 mg q.24 hours. 13. Keppra 500 mg p.o. q.i.d. 14. Prednisone taper 40 mg daily for 3 days, 30 for 3 days, 20 for 3 days, 10 for 3 days and then discontinue.
== END 2016-11-27 15:15 | disposition home or self-care (01) | DRG 191 ==
LOC: EC 16:14 → 5MS5E 19:18
PROVIDERS: ADMIT Hospitalist; ATTEND Hospitalist
DX: J44.0 Chronic obstructive pulmonary disease with (acute) lower respiratory infection (principal); J45.901 Unspecified asthma with (acute) exacerbation; E11.65 Type 2 diabetes mellitus with hyperglycemia; E87.1 Hypo-osmolality and hyponatremia; I10 Essential (primary) hypertension; K21.9 Gastro-esophageal reflux disease without esophagitis; J44.1 Chronic obstructive pulmonary disease with (acute) exacerbation; J20.9 Acute bronchitis, unspecified; T38.0X5A Adverse effect of glucocorticoids and synthetic analogues, initial encounter; F41.0 Panic disorder [episodic paroxysmal anxiety]; G89.29 Other chronic pain; Z79.899 Other long term (current) drug therapy; Z86.73 Personal history of transient ischemic attack (TIA), and cerebral infarction without residual deficits; Z87.01 Personal history of pneumonia (recurrent); Z87.891 Personal history of nicotine dependence; Z88.6 Allergy status to analgesic agent; Z88.5 Allergy status to narcotic agent
CPT/HCPCS: 36415; 71020; 80048; 83036; 85025; 93005; 94640; 94760; 96374; 99285

== ENCOUNTER 2016-11-28 04:14 | Emergency (ER) | payer OTHER ==
[2016-11-28] MEDS ORDERED: IPRATROPIUM-ALBUTEROL 3 ML NEB INHALATION STA (05:06)
[2016-11-28] MEDS ORDERED: ALBUTEROL NEBULIZED 2.5 MG/3 ML INHALATION STA ×2 (05:06→06:53)
--- NOTE | 2016-11-28 06:36 | ED ---
SOB HPI - General Chief Complaint: Shortness of Breath Stated Complaint: CLEMENCIA Time Seen by Provider: 11/28/16 04:31 Source: patient Mode of arrival: ambulatory Limitations: no limitations - History of Present Illness Initial Comments: This patient is a 56-year-old man who presents with complaint that he was moving , from 1 residence to another when the exertion seems to provoke to his COPD. He was having coughing, shortness of breath, and felt he needed to be seen here. MD Complaint: shortness of breath, cough -: hour(s) Improves With: nothing Worsens With: exertion Known History Of: COPD Associated Symptoms: denies other symptoms - Related Data Home Medications Medication Instructions Recorded Confirmed amLODIPine [Norvasc] 10 mg PO DAILY 02/07/15 11/22/16 levETIRAcetam [Keppra] 500 mg PO QAM 02/07/15 11/22/16 Albuterol Sulfate [Ventolin HFA] 2 puff INHALATION RT-QID PRN 03/31/15 11/22/16 Multivitamins, Thera [Multivitamin 1 tab PO DAILY@1200 11/14/16 11/22/16 (formulary)] Famotidine [Pepcid] 20 mg PO BID 11/22/16 11/22/16 Previous Rx's Medication Instructions Recorded Budesonide-Formot 160-4.5 Mcg 2 puff INHALATION RT-BID #1 puff 07/08/15 [Symbicort 160-4.5 Mcg Inhaler] Albuterol Nebulized [Ventolin 2.5 mg INHALATION RT-QID #0 11/13/16 Nebulized] Folic Acid 1 mg PO DAILY@1200 #30 tab 11/13/16 Montelukast [Singulair] 10 mg PO HS #30 tab 11/13/16 Thiamine [Vitamin B-1] 100 mg PO DAILY #30 tablet 11/13/16 guaiFENesin SYRUP 100MG/5ML 200 mg PO Q4H PRN #0 cup 11/13/16 [Robitussin] Levofloxacin [Levaquin] 500 mg PO DAILY@2200 #5 tab 11/26/16 predniSONE 10 mg PO DIRECTED #30 tab 11/26/16 ALPRAZolam [Xanax] 0.5 mg PO Q8HR PRN #10 tablet 11/27/16 HYDROcodone/APAP 7.5-325MG [[place] 1 tab PO Q6HR PRN #20 tab 11/27/16 7.5-325] Allergies Allergy/AdvReac Type Severity Reaction Status Date / Time morphine Allergy Rash/Hives Verified 11/28/16 07:42 aspirin AdvReac Severe Bleeding Verified 11/28/16 07:42 NSAIDS (Non-Steroidal AdvReac Severe Can't take Verified 11/28/16 07:42 Anti-Inflamma due to Hx of stroke. Review of Systems ROS Statement: Those systems with pertinent positive or pertinent negative responses have been documented in the HPI. ROS Other: All systems not noted in ROS Statement are negative. Constitutional: Denies: fever, chills, weakness Respiratory: Reports: cough, dyspnea, wheezes. Denies: hemoptysis Cardiovascular: Denies: chest pain, palpitations, edema, syncope Gastrointestinal: Denies: abdominal pain, nausea, vomiting Genitourinary: Denies: dysuria Musculoskeletal: Denies: back pain Skin: Denies: rash Neurological: Denies: headache, weakness, numbness 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,PER PAST MEDICAL HX NOTED C2 fracture(FROM [facility]-NOT ABLE TO CONFIRM WITH PT), Osteoarthritis, DJD, "FROZEN SHOULDER SYNDROME (RT)" , NE-PT STATED IN THE Last Myocardial Infarction Date:: unknown History of Any Multi-Drug Resistant Organisms: None Reported Past Surgical History: Orthopedic Surgery Additional Past Surgical History / Comment(s): neck fx, metal plate left hand middle finger Past Anesthesia/Blood Transfusion Reactions: No Reported Reaction Past Psychological History: Panic Disorder Additional Psychological History / Comment(s): 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 - Past Family History Mother Family Medical History: Cancer Additional Family Medical History / Comment(s): Pt believes his Mom of Kidney Ca, but not 100% sure. Father Family Medical History: Cancer, Respiratory Disorder Additional Family Medical History / Comment(s): Melonoma General Exam Limitations: no limitations General appearance: alert, in no apparent distress Head exam: Present: atraumatic, normocephalic Eye exam: Present: normal appearance. Absent: scleral icterus, conjunctival injection Respiratory exam: Present: wheezes. Absent: respiratory distress, rales, rhonchi, stridor Cardiovascular Exam: Present: regular rate, normal rhythm, normal heart sounds. Absent: systolic murmur, diastolic murmur, rubs, gallop GI/Abdominal exam: Present: soft. Absent: distended, tenderness, guarding, rebound Extremities exam: Present: normal inspection, normal capillary refill. Absent: pedal edema, calf tenderness Back exam: Present: normal inspection. Absent: CVA tenderness (R), CVA tenderness (L) Neurological exam: Present: alert Skin exam: Present: warm, dry, intact, normal color. Absent: rash Course Vital Signs 11/28/16 11/28/16 11/28/16 04:16 05:19 05:36 Temperature 97.6 F Pulse Rate 61 84 88 Respiratory Rate Blood Pressure 136/96 O2 Sat by Pulse 94 L Oximetry 11/28/16 11/28/16 11/28/16 05:57 06:45 06:46 Temperature 98.5 F 97.0 F L Pulse Rate 102 H 96 Respiratory 22 22 Rate Blood Pressure 162/74 125/69 O2 Sat by Pulse 95 90 L 94 L Oximetry 11/28/16 11/28/16 11/28/16 07:10 07:21 07:25 Temperature 96.8 F L Pulse Rate 92 92 91 Respiratory 18 Rate Blood Pressure 131/70 O2 Sat by Pulse 97 96 Oximetry 11/28/16 07:30 Temperature Pulse Rate 97 Respiratory Rate Blood Pressure O2 Sat by Pulse Oximetry Disposition Clinical Impression: COPD exacerbation Disposition: HOME SELF-CARE Condition: Good Instructions: Chronic Bronchitis (ED) Referrals: Urszula Carrasco MD [Primary Care Provider] - 1-2 days
[2016-11-28] MEDS ORDERED: predniSONE 20 MG TAB PO STA (06:54)
--- NOTE | 2016-11-28 07:08 | XR ---
EXAM: XR Chest, 2 Views. CLINICAL HISTORY: Reason: cough TECHNIQUE: Frontal and lateral views of the chest. COMPARISON: 11/22/16 FINDINGS: Lungs: Hyperinflation. Right basilar atelectasis. No consolidation. Pleural space: Unremarkable. No pneumothorax. Heart: Unremarkable. No cardiomegaly. Mediastinum: Unremarkable. Bones/joints: Unremarkable. IMPRESSION: Hyperinflation.
[2016-11-28 07:40] VITALS: BP 131/70; RESP 18
[2016-11-28 08:49] VITALS: PULSE 70; TEMP 97.4
== END 2016-11-28 08:48 | disposition home or self-care (01) ==
LOC: EC 04:14
DX: J44.1 Chronic obstructive pulmonary disease with (acute) exacerbation (principal); I10 Essential (primary) hypertension; K21.9 Gastro-esophageal reflux disease without esophagitis; Z87.891 Personal history of nicotine dependence; Z79.899 Other long term (current) drug therapy; Z88.5 Allergy status to narcotic agent; Z88.6 Allergy status to analgesic agent
CPT/HCPCS: 94640 ×2; 71020; 99285; J7512

== ENCOUNTER 2016-11-28 22:43 | Inpatient (IN) | payer OTHER ==
[2016-11-28] MEDS ORDERED: IPRATROPIUM 0.5 MG/2.5 ML NEBU INHALATION STA (22:52)
[2016-11-28] MEDS ORDERED: ALBUTEROL NEBULIZED 2.5 MG/3 ML INHALATION STA (22:52)
[2016-11-28] MEDS ORDERED: SODIUM CHLORIDE 0.9% 1,000 ML IV STA (22:52)
[2016-11-28 23:36] LABS: Basophils # (A) 0.1 k/uL (0-0.2); Basophils % (A) 0 %; CH 34.8; CHCM 33.6; Eosinophils # (A) 0.2 k/uL (0-0.7); Eosinophils % (A) 1 %; HCT 50.2 % (39.0-53.0); HDW 2.03; HGB 16.5 gm/dL (13.0-17.5); Luc # (Auto) 0.09; Luc % (Auto) 1; Lymphocytes # (A) 0.5 k/uL (1.0-4.8); Lymphocytes % (A) 3 %; MCH 34.3 pg (25.0-35.0); MCHC 32.9 g/dL (31.0-37.0); Macrocytosis Slight; Mean Platelet Volume 6.3; Monocytes # (A) 0.5 k/uL (0-1.0); Monocytes % (A) 3 %; Neutrophils # (A) 15.3 k/uL (1.3-7.7); Neutrophils % (A) 92 %; RBC 4.83 m/uL (4.30-5.90); RDW 13.8 % (11.5-15.5); WBC 16.6 k/uL (3.8-10.6); WBC (Perox) 16.17
[2016-11-28 23:47] LABS: Anion Gap 8 mmol/L; Calcium 9.4 mg/dL (8.4-10.2); Carbon Dioxide 28 mmol/L (22-30); Chloride 100 mmol/L (98-107); Glucose 105 mg/dL (74-99); Non-African American GFR(MDRD) >60 (>60 ml/min/1.73 sqM); Sodium 136 mmol/L (137-145); Total Bilirubin 0.7 mg/dL (0.2-1.3)
[2016-11-28 23:49] LABS: ALT 49 U/L (21-72); AST 35 U/L (17-59); Alkaline Phosphatase 32 U/L (38-126); Blood Urea Nitrogen 31 mg/dL (9-20); Potassium 5.4 mmol/L (3.5-5.1); Total Protein 6.6 g/dL (6.3-8.2)
[2016-11-29 00:01] LABS: Creatine Kinase 45 U/L (55-170)
[2016-11-29 00:06] LABS: Partial Thromboplastin Time 20.8 sec (22.0-30.0)
[2016-11-29 00:14] LABS: Creatine Kinase MB 2.4 ng/mL (0.0-2.4); Troponin I <0.012 ng/mL (0.000-0.034)
[2016-11-29] MEDS ORDERED: methylPREDNISolone SOD SUCCI 125 MG/2 ML VIAL IV STA (00:27)
--- NOTE | 2016-11-29 00:27 | ED ---
General Adult HPI - General Chief complaint: Shortness of Breath Stated complaint: CLEMENCIA Time Seen by Provider: 11/28/16 22:52 Source: patient, RN notes reviewed, old records reviewed Mode of arrival: wheelchair Limitations: no limitations - History of Present Illness Initial comments: This is a 56-year-old male here for evaluation of shortness of breath. Patient does sore from COPD. Has been doing treatments and treatment at home, patient was in ER earlier today and attempted to go home but has no critical improvement since. Patient admits chest pain with cough, increased congestion severe shortness of breath. Denies fever. - Related Data Home Medications Medication Instructions Recorded Confirmed amLODIPine [Norvasc] 10 mg PO DAILY 02/07/15 11/28/16 levETIRAcetam [Keppra] 500 mg PO QAM 02/07/15 11/28/16 Albuterol Sulfate [Ventolin HFA] 2 puff INHALATION RT-QID PRN 03/31/15 11/28/16 Multivitamins, Thera [Multivitamin 1 tab PO DAILY@1200 11/14/16 11/28/16 (formulary)] Famotidine [Pepcid] 20 mg PO BID 11/22/16 11/28/16 predniSONE See Taper PO DAILY 11/28/16 11/28/16 Previous Rx's Medication Instructions Recorded Budesonide-Formot 160-4.5 Mcg 2 puff INHALATION RT-BID #1 puff 07/08/15 [Symbicort 160-4.5 Mcg Inhaler] Albuterol Nebulized [Ventolin 2.5 mg INHALATION RT-QID #0 11/13/16 Nebulized] Folic Acid 1 mg PO DAILY@1200 #30 tab 11/13/16 Montelukast [Singulair] 10 mg PO HS #30 tab 11/13/16 Thiamine [Vitamin B-1] 100 mg PO DAILY #30 tablet 11/13/16 Levofloxacin [Levaquin] 500 mg PO DAILY@2200 #5 tab 11/26/16 ALPRAZolam [Xanax] 0.5 mg PO Q8HR PRN #10 tablet 11/27/16 HYDROcodone/APAP 7.5-325MG [[place] 1 tab PO Q6HR PRN #20 tab 11/27/16 7.5-325] Allergies Allergy/AdvReac Type Severity Reaction Status Date / Time morphine Allergy Rash/Hives Verified 11/28/16 22:48 aspirin AdvReac Severe Bleeding Verified 11/28/16 22:48 NSAIDS (Non-Steroidal AdvReac Severe Can't take Verified 11/28/16 22:48 Anti-Inflamma due to Hx of stroke. Review of Systems ROS Statement: Those systems with pertinent positive or pertinent negative responses have been documented in the HPI. ROS Other: All systems not noted in ROS Statement are negative. 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,PER PAST MEDICAL HX NOTED C2 fracture(FROM [facility]-NOT ABLE TO CONFIRM WITH PT), Osteoarthritis, DJD, "FROZEN SHOULDER SYNDROME (RT)" , [place]-PT STATED IN THE Last Myocardial Infarction Date:: unknown History of Any Multi-Drug Resistant Organisms: None Reported Past Surgical History: Orthopedic Surgery Additional Past Surgical History / Comment(s): neck fx, metal plate left hand middle finger Past Anesthesia/Blood Transfusion Reactions: No Reported Reaction Past Psychological History: Panic Disorder Additional Psychological History / Comment(s): 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 - Past Family History Mother Family Medical History: Cancer Additional Family Medical History / Comment(s): Pt believes his Mom of Kidney Ca, but not 100% sure. Father Family Medical History: Cancer, Respiratory Disorder Additional Family Medical History / Comment(s): Melonoma General Exam Limitations: no limitations General appearance: alert, anxious, in distress Head exam: Present: atraumatic, normocephalic, normal inspection Eye exam: Present: normal appearance, PERRL, EOMI. Absent: scleral icterus, conjunctival injection, periorbital swelling ENT exam: Present: normal exam, mucous membranes moist Neck exam: Present: normal inspection. Absent: tenderness, meningismus, lymphadenopathy Respiratory exam: Present: wheezes, accessory muscle use, decreased breath sounds, prolonged expiratory. Absent: respiratory distress, rales, rhonchi, stridor Cardiovascular Exam: Present: tachycardia, normal heart sounds. Absent: systolic murmur, diastolic murmur, rubs, gallop, clicks GI/Abdominal exam: Present: soft, normal bowel sounds. Absent: distended, tenderness, guarding, rebound, rigid Extremities exam: Present: normal inspection, full ROM, normal capillary refill. Absent: tenderness, pedal edema, joint swelling, calf tenderness Back exam: Present: normal inspection Neurological exam: Present: alert, oriented X3, CN II-XII intact Psychiatric exam: Present: normal affect, normal mood Skin exam: Present: warm, dry, intact, normal color. Absent: rash Course Vital Signs 11/28/16 11/28/16 11/29/16 22:44 23:40 00:12 Temperature 98.8 F Pulse Rate 104 H 95 98 Respiratory 26 H Rate Blood Pressure 137/86 O2 Sat by Pulse 91 L Oximetry - Reevaluation(s) Reevaluation #1: 11/29/16 00:26 Patient with no improvement prolonged breathing treatment EKG Findings - EKG Comments: EKG Findings:: EKG shows sinus tachycardia rate 104, OK 126, QRS 80, QTC 449 Medical Decision Making - Medical Decision Making 55 LDF reevaluation severe shortness of breath. Patient has multiple recent ER visits with no improvement in outpatient treatment, patient be admitted for further evaluation and treatment - Lab Data Result diagrams: 11/28/16 23:24 11/28/16 23:24 Lab Results 11/28/16 11/28/16 11/28/16 Range/Units 23:24 23:24 23:24 WBC 16.6 H (3.8-10.6) k/uL RBC 4.83 (4.30-5.90) m/uL Hgb 16.5 (13.0-17.5) gm/dL Hct 50.2 (39.0-53.0) % MCV 104.0 H (80.0-100.0) fL MCH 34.3 (25.0-35.0) pg MCHC 32.9 (31.0-37.0) g/dL RDW 13.8 (11.5-15.5) % Plt Count 228 (150-450) k/uL Neutrophils % 92 % Lymphocytes % 3 % Monocytes % 3 % Eosinophils % 1 % Basophils % 0 % Neutrophils # 15.3 H (1.3-7.7) k/uL Lymphocytes # 0.5 L (1.0-4.8) k/uL Monocytes # 0.5 (0-1.0) k/uL Eosinophils # 0.2 (0-0.7) k/uL Basophils # 0.1 (0-0.2) k/uL Macrocytosis Slight PT (9.0-12.0) sec INR (<1.1) APTT (22.0-30.0) sec D-Dimer (<0.60) mg/L FEU Sodium 136 L (137-145) mmol/L Potassium 5.4 H (3.5-5.1) mmol/L Chloride 100 (98-107) mmol/L Carbon Dioxide 28 (22-30) mmol/L Anion Gap 8 mmol/L BUN 31 H (9-20) mg/dL Creatinine 0.60 L (0.66-1.25) mg/dL Est GFR (MDRD) Af Amer >60 (>60 ml/min/1.73 sqM) Est GFR (MDRD) Non-Af >60 (>60 ml/min/1.73 sqM) Glucose 105 H (74-99) mg/dL Calcium 9.4 (8.4-10.2) mg/dL Magnesium 2.0 (1.6-2.3) mg/dL Total Bilirubin 0.7 (0.2-1.3) mg/dL AST 35 (17-59) U/L ALT 49 (21-72) U/L Alkaline Phosphatase 32 L (38-126) U/L Total Creatine Kinase 45 L (55-170) U/L CK-MB (CK-2) 2.4 (0.0-2.4) ng/mL CK-MB (CK-2) Rel Index 5.3 Troponin I <0.012 (0.000-0.034) ng/mL NT-Pro-B Natriuret Pep pg/mL Total Protein 6.6 (6.3-8.2) g/dL Albumin 3.9 (3.5-5.0) g/dL 11/28/16 11/28/16 Range/Units 23:24 23:24 WBC (3.8-10.6) k/uL RBC (4.30-5.90) m/uL Hgb (13.0-17.5) gm/dL Hct (39.0-53.0) % MCV (80.0-100.0) fL MCH (25.0-35.0) pg MCHC (31.0-37.0) g/dL RDW (11.5-15.5) % Plt Count (150-450) k/uL Neutrophils % % Lymphocytes % % Monocytes % % Eosinophils % % Basophils % % Neutrophils # (1.3-7.7) k/uL Lymphocytes # (1.0-4.8) k/uL Monocytes # (0-1.0) k/uL Eosinophils # (0-0.7) k/uL Basophils # (0-0.2) k/uL Macrocytosis PT 10.0 (9.0-12.0) sec INR 1.0 (<1.1) APTT 20.8 L (22.0-30.0) sec D-Dimer 0.34 (<0.60) mg/L FEU Sodium (137-145) mmol/L Potassium (3.5-5.1) mmol/L Chloride (98-107) mmol/L Carbon Dioxide (22-30) mmol/L Anion Gap mmol/L BUN (9-20) mg/dL Creatinine (0.66-1.25) mg/dL Est GFR (MDRD) Af Amer (>60 ml/min/1.73 sqM) Est GFR (MDRD) Non-Af (>60 ml/min/1.73 sqM) Glucose (74-99) mg/dL Calcium (8.4-10.2) mg/dL Magnesium (1.6-2.3) mg/dL Total Bilirubin (0.2-1.3) mg/dL AST (17-59) U/L ALT (21-72) U/L Alkaline Phosphatase (38-126) U/L Total Creatine Kinase (55-170) U/L CK-MB (CK-2) (0.0-2.4) ng/mL CK-MB (CK-2) Rel Index Troponin I (0.000-0.034) ng/mL NT-Pro-B Natriuret Pep 167 pg/mL Total Protein (6.3-8.2) g/dL Albumin (3.5-5.0) g/dL - Radiology Data Radiology results: report reviewed (Chest x-ray is negative for pneumonia), image reviewed Critical Care Time Critical Care Time: Yes Total Critical Care Time: 31 Disposition Clinical Impression: Asthma exacerbation in COPD, COPD exacerbation, Failure of outpatient treatment Disposition: ADMITTED IP TO THIS HOSP Condition: Fair
[2016-11-29] MEDS ORDERED: HYDROmorphone 1 MG/ML 1 ML SYRINGE IVP STA (00:28)
[2016-11-29] MEDS ORDERED: HYDROmorphone 1 MG/ML 1 ML SYRINGE IVP PRN (00:28)
--- NOTE | 2016-11-29 00:56 | XR ---
EXAM: XR Chest, 2 Views. CLINICAL HISTORY: Reason: difficulty breathing, cough, COPD TECHNIQUE: Frontal and lateral views of the chest. COMPARISON: 11/28/2016 at 6:25 AM FINDINGS: Hardware: None. Lungs/pleura: Mild bibasilar atelectasis. No focal consolidation. No pleural effusion or pneumothorax. Flattening of the diaphragms on lateral view may represent hyperinflation. Heart/mediastinum: Slightly increased prominence of the cardiac silhouette is likely secondary to technique. Soft tissues: Unremarkable. Bones: No acute fracture. Upper abdomen: Normal. IMPRESSION: Mild bibasilar atelectasis. No focal consolidation. Slightly increased size of the cardiac silhouette is likely accentuated by technique.
[2016-11-29] MEDS: SODIUM CHLORIDE 0.9% 1,000 ML IV SCH ×3 (01:02→21:30)
[2016-11-29 01:39] VITALS: BMI 24.2
[2016-11-29] MEDS: methylPREDNISolone SOD SUCCI 125 MG/2 ML VIAL IV SCH ×2 (06:24→13:06)
[2016-11-29] MEDS: IPRATROPIUM-ALBUTEROL 3 ML NEB INHALATION SCH ×4 (07:38→20:23)
[2016-11-29 07:44] VITALS: RESP 22
[2016-11-29 07:45] LABS: Glucose,Whole Blood 121 mg/dL (75-99)
[2016-11-29] MEDS: NICOTINE 21MG/24HR PATCH TRANSDERM SCH (09:38)
[2016-11-29] MEDS: ENOXAPARIN 40 MG/0.4 ML SYRINGE SQ SCH (09:39)
[2016-11-29] MEDS ORDERED: ALPRAZolam 0.5 MG TAB PO PRN (11:55)
[2016-11-29] MEDS ORDERED: IPRATROPIUM-ALBUTEROL 3 ML NEB INHALATION PRN (11:58)
[2016-11-29 11:59] LABS: Glucose,Whole Blood 128 mg/dL (75-99)
[2016-11-29] MEDS ORDERED: ALBUTEROL NEBULIZED 2.5 MG/3 ML INHALATION SCH (12:00)
[2016-11-29] MEDS: INSULIN LISPRO (humaLOG) 300 UNIT/3 ML VIAL SQ SCH ×3 (12:44→21:28)
[2016-11-29] MEDS: MULTIVITAMINS, THERA 1 EACH TAB PO SCH (12:44)
[2016-11-29] MEDS: HYDROcodone/APAP 7.5-325MG 1 EACH TAB PO PRN ×2 (12:44→20:37)
[2016-11-29] MEDS: FOLIC ACID 1 MG TAB PO SCH (12:44)
[2016-11-29] MEDS: levETIRAcetam 500 MG TAB PO SCH (12:44)
[2016-11-29] MEDS: amLODIPine 10 MG TAB PO SCH (12:49)
[2016-11-29 13:01] LABS: Hemoglobin A1C 5.8 % (4.2-6.1)
[2016-11-29] MEDS: guaiFENesin SYRUP 100MG/5ML 200 MG/10 ML CUP PO PRN ×2 (13:24→20:37)
--- NOTE | 2016-11-29 15:19 | P.CNPUL ---
History of Present Illness Consult date: 11/29/16 Reason for consult: dyspnea, cough, chest pain, COPD Chief complaint: chest pain and shortness of breath History of present illness: This is a 56-year-old gentleman who presented to the emergency department complaining of shortness of breath and chest pain. The patient has had multiple recurrent admissions over the past few weeks. The patient states he does not smoke when he goes home. He states he used his nebulizer yesterday 4 times and did not have improvement in his symptoms. He states he "overexerted himself." He states he is moving and try to move boxes.he denies fevers and chills. He is complaining of congestion and chest tightness. Review of Systems All systems: negative Past Medical History Past Medical History: COPD, CVA/TIA, Hypertension, Myocardial Infarction ([place]), Pneumonia, Respiratory Disorder Additional Past Medical History / Comment(s): 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,PER PAST MEDICAL HX NOTED C2 fracture(FROM [facility]-NOT ABLE TO CONFIRM WITH PT), Osteoarthritis, DJD, "FROZEN SHOULDER SYNDROME (RT)" , [place]-PT STATED IN THE Last Myocardial Infarction Date:: unknown History of Any Multi-Drug Resistant Organisms: None Reported Past Surgical History: Orthopedic Surgery Additional Past Surgical History / Comment(s): neck fx, metal plate left hand middle finger Past Anesthesia/Blood Transfusion Reactions: No Reported Reaction Past Psychological History: Panic Disorder Additional Psychological History / Comment(s): 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 - Past Family History Mother Family Medical History: Cancer Additional Family Medical History / Comment(s): Pt believes his Mom of Kidney Ca, but not 100% sure. Father Family Medical History: Cancer, Respiratory Disorder Additional Family Medical History / Comment(s): Melonoma Medications and Allergies Home Medications Medication Instructions Recorded Confirmed Type amLODIPine [Norvasc] 10 mg PO DAILY 02/07/15 11/28/16 History levETIRAcetam [Keppra] 500 mg PO QAM 02/07/15 11/28/16 History Albuterol Sulfate [Ventolin HFA] 2 puff INHALATION RT-QID PRN 03/31/15 11/28/16 History Multivitamins, Thera [Multivitamin 1 tab PO DAILY@1200 11/14/16 11/28/16 History (formulary)] Famotidine [Pepcid] 20 mg PO BID 11/22/16 11/28/16 History predniSONE See Taper PO DAILY 11/28/16 11/28/16 History Allergies Allergy/AdvReac Type Severity Reaction Status Date / Time morphine Allergy Rash/Hives Verified 11/28/16 22:48 aspirin AdvReac Severe Bleeding Verified 11/28/16 22:48 NSAIDS (Non-Steroidal AdvReac Severe Can't take Verified 11/28/16 22:48 Anti-Inflamma due to Hx of stroke. Physical Exam Osteopathic Statement: *. No significant issues noted on an osteopathic structural exam other than those noted in the History and Physical/Consult. Vitals: Vital Signs Temp Pulse Pulse Resp BP BP Pulse Ox 11/29/16 12:49 129/73 11/29/16 12:03 92 11/29/16 11:51 92 11/29/16 07:47 88 11/29/16 07:38 88 94 L 11/29/16 07:00 97.5 F L 86 22 125/81 92 L 11/29/16 01:25 96.7 F L 97 20 116/69 93 L 11/29/16 00:55 97.3 F L 97 20 126/69 95 11/29/16 00:46 106 H Intake and Output 11/29/16 11/29/16 11/29/16 06:59 14:59 22:59 Intake Total 400 480 Balance 400 480 Intake: Oral 400 480 Other: # Voids 1 Weight 66.5 kg Gen.: Patient is alert and oriented 3, no acute distress Cardiovascular: Regular rate and rhythm, S1/S2 Lungs: Diminished breath sounds bilaterally otherwise clear Abdomen: Soft nontender nondistended positive bowel sounds Extremities: No edema Results - Laboratory Findings CBC and BMP: 11/28/16 23:24 11/28/16 23:24 PT/INR, D-dimer PT 10.0 sec (9.0-12.0) 11/28/16 23:24 INR 1.0 (<1.1) 11/28/16 23:24 D-Dimer 0.34 mg/L FEU (<0.60) 11/28/16 23:24 Abnormal lab findings: Abnormal Labs 11/29/16 11/29/16 07:01 11:53 POC Glucose (mg/dL) 121 H 128 H - Diagnostic Findings Chest x-ray: report reviewed, image reviewed Assessment and Plan Plan: acute exacerbation of COPD Tracheobronchitis next and emphysema Leukocytosis Hyponatremia Mild hyperkalemia Diabetes mellitus type 2 with hyperglycemia, possibly steroid induced Active tobacco abuse History of CVA Chronic pain syndrome GERD Hypertension O2 to maintain saturation greater than equal to 88% Symbicort Steroid taper Antibiotics Perforomist Singulair Smoking cessation is highly recommended Incentive spirometry and pulmonary hygiene GI and DVT prophylaxis Outpatient pulmonary follow-up with PFT Patient may benefit from pulmonary rehab, however, he has not yet followed up in the office after multiple readmissions Thank you for this consultation we'll continue to follow along
--- NOTE | 2016-11-29 15:32 | P.HPIM ---
History of Present Illness H&P Date: 11/29/16 This is a 56-year-old gentleman that is well-known to our service comes in the hospital with the difficulty in breathing the. Patient was recently discharged from the hospital with a COPD exacerbation. Patient states that he has overexerted himself and has had difficulty breathing and pain in his chest. States that his pain is significantly worse in his chest. States that he does not smoke after he is being discharged home. Denies having any headaches, blurry vision, nausea, vomiting, diarrhea. Chest x-ray does not reveal an infiltrate at this time. Did not require any supplemental oxygen. His main concern appears to be pain Review of Systems All systems: negative (Noted in HPI) Past Medical History Past Medical History: COPD, CVA/TIA, Hypertension, Myocardial Infarction ([place]), Pneumonia, Respiratory Disorder Additional Past Medical History / Comment(s): 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,PER PAST MEDICAL HX NOTED C2 fracture(FROM [facility]-NOT ABLE TO CONFIRM WITH PT), Osteoarthritis, DJD, "FROZEN SHOULDER SYNDROME (RT)" , [place]-PT STATED IN THE Last Myocardial Infarction Date:: unknown History of Any Multi-Drug Resistant Organisms: None Reported Past Surgical History: Orthopedic Surgery Additional Past Surgical History / Comment(s): neck fx, metal plate left hand middle finger Past Anesthesia/Blood Transfusion Reactions: No Reported Reaction Past Psychological History: Panic Disorder Additional Psychological History / Comment(s): 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 - Past Family History Mother Family Medical History: Cancer Additional Family Medical History / Comment(s): Pt believes his Mom of Kidney Ca, but not 100% sure. Father Family Medical History: Cancer, Respiratory Disorder Additional Family Medical History / Comment(s): Melonoma Medications and Allergies Home Medications Medication Instructions Recorded Confirmed Type amLODIPine [Norvasc] 10 mg PO DAILY 02/07/15 11/28/16 History levETIRAcetam [Keppra] 500 mg PO QAM 02/07/15 11/28/16 History Albuterol Sulfate [Ventolin HFA] 2 puff INHALATION RT-QID PRN 03/31/15 11/28/16 History Multivitamins, Thera [Multivitamin 1 tab PO DAILY@1200 11/14/16 11/28/16 History (formulary)] Famotidine [Pepcid] 20 mg PO BID 11/22/16 11/28/16 History predniSONE See Taper PO DAILY 11/28/16 11/28/16 History Allergies Allergy/AdvReac Type Severity Reaction Status Date / Time morphine Allergy Rash/Hives Verified 11/28/16 22:48 aspirin AdvReac Severe Bleeding Verified 11/28/16 22:48 NSAIDS (Non-Steroidal AdvReac Severe Can't take Verified 11/28/16 22:48 Anti-Inflamma due to Hx of stroke. Physical Exam Vitals: Vital Signs Temp Pulse Pulse Resp BP BP Pulse Ox 11/29/16 12:49 129/73 11/29/16 12:03 92 11/29/16 11:51 92 11/29/16 07:47 88 11/29/16 07:38 88 94 L 11/29/16 07:00 97.5 F L 86 22 125/81 92 L 11/29/16 01:25 96.7 F L 97 20 116/69 93 L 11/29/16 00:55 97.3 F L 97 20 126/69 95 11/29/16 00:46 106 H Intake and Output 11/29/16 11/29/16 11/29/16 06:59 14:59 22:59 Intake Total 400 480 Balance 400 480 Intake: Oral 400 480 Other: # Voids 1 Weight 66.5 kg Phyrsical exam Gen. appearance oriented 3 in no distress Neck is supple no JVD Lungs good air movement appreciated, trace wheezing, some rhonchi noted on the upper airways. Heart S1-S2 heard regular rate and rhythm no murmurs appreciated Abdomen is soft nontender no organomegaly bowel sounds are intact Neurologically cranial nerves II-12 grossly intact no focal motor or sensory deficits noted Skin no abnormalities appreciated Results CBC & Chem 7: 11/28/16 23:24 04/12/17 23:24 Labs: Abnormal Lab Results - Last 24 Hours (Table) 11/29/16 11/29/16 Range/Units 07:01 11:53 POC Glucose (mg/dL) 121 H 128 H (75-99) mg/dL Thrombosis Risk Factor Assmnt - Choose All That Apply Any of the Below Risk Factors Present?: Yes Each Factor Represents 1 point: Abnormal pulmonary function (COPD), Age 41-60 years Other Risk Factors: No Thrombosis Risk Factor Assessment Total Risk Factor Score: 2 Thrombosis Risk Factor Assessment Level: Low Risk Assessment and Plan Plan: Acute exacerbation of COPD from acute tracheal bronchitis in a patient with the emphysema #2 mild hyponatremia #3 hyperkalemia #4 diabetes mellitus type 2 #5 chronic pain syndrome #6 hypertension #7 GERD #8 ongoing tobacco use #9 leukocytosis likely reactive in nature from steroid use in the recent times Plan Continue breathing treatments continue steroids a steroid taper will be initiated Pulmonary hygiene pulmonary consultation will be obtained Patient's disease is more chronic in nature this was discussed with the patient that being admitted to the hospital is not the answer did discuss smoking cessation. There appears to be some social issues including patient's inability to find housing. However states that he is currently in process of moving to a new place. We'll continue treating the patient symptomatically for the next 24 hours and we 'll likely discharge him home thereafter. Patient's breathing has worsened within the last 3 days from the last note and this is likely secondary to patient's active smoking.
[2016-11-29] MEDS: methylPREDNISolone SOD SUCCI 40 MG/ML 1 ML VIAL IV SCH ×2 (15:46→22:51)
[2016-11-29] MEDS: BENZONATATE 100 MG CAP PO SCH ×2 (15:46→21:28)
[2016-11-29 17:00] LABS: Glucose,Whole Blood 103 mg/dL (75-99)
[2016-11-29] MEDS: FAMOTIDINE 20 MG TAB PO SCH (20:15)
[2016-11-29] MEDS: SYMBICORT 160-4.5 MCG INHALER INHALATION SCH (20:23)
[2016-11-29 20:49] LABS: Glucose,Whole Blood 165 mg/dL (75-99)
[2016-11-29] MEDS ORDERED: MONTELUKAST 10 MG TAB PO SCH (21:00)
[2016-11-29] MEDS ORDERED: LEVOFLOXACIN 500 MG TAB PO SCH (22:00)
[2016-11-30] MEDS: HYDROcodone/APAP 7.5-325MG 1 EACH TAB PO PRN ×2 (05:07→13:14)
[2016-11-30] MEDS: guaiFENesin SYRUP 100MG/5ML 200 MG/10 ML CUP PO PRN ×2 (05:11→13:14)
[2016-11-30 07:35] LABS: Glucose,Whole Blood 112 mg/dL (75-99)
[2016-11-30] MEDS: INSULIN LISPRO (humaLOG) 300 UNIT/3 ML VIAL SQ SCH ×3 (07:52→17:25)
[2016-11-30] MEDS: methylPREDNISolone SOD SUCCI 40 MG/ML 1 ML VIAL IV SCH (08:12)
[2016-11-30] MEDS: amLODIPine 10 MG TAB PO SCH (08:12)
[2016-11-30] MEDS: SODIUM CHLORIDE 0.9% 1,000 ML IV SCH ×2 (08:12→16:41)
[2016-11-30] MEDS: levETIRAcetam 500 MG TAB PO SCH (08:13)
[2016-11-30] MEDS: ENOXAPARIN 40 MG/0.4 ML SYRINGE SQ SCH (08:13)
[2016-11-30] MEDS: FAMOTIDINE 20 MG TAB PO SCH (08:13)
[2016-11-30] MEDS: BENZONATATE 100 MG CAP PO SCH ×2 (08:13→16:21)
[2016-11-30] MEDS: NICOTINE 21MG/24HR PATCH TRANSDERM SCH (08:16)
[2016-11-30] MEDS ORDERED: THIAMINE 100 MG TAB PO SCH (09:00)
[2016-11-30] MEDS ORDERED: AZITHROMYCIN 500 MG TAB PO SCH (09:00)
[2016-11-30 09:11] LABS: Basophils % (A) 0 %; CH 34.6; Eosinophils % (A) 0 %; HCT 42.9 % (39.0-53.0); HDW 2.17; HGB 14.2 gm/dL (13.0-17.5); Luc # (Auto) 0.04; Luc % (Auto) 0; Lymphocytes # (A) 0.2 k/uL (1.0-4.8); Lymphocytes % (A) 2 %; MCH 33.8 pg (25.0-35.0); MCHC 33.1 g/dL (31.0-37.0); MCV 102.3 fL (80.0-100.0); Macrocytosis Slight; Mean Platelet Volume 6.3; Monocytes # (A) 0.5 k/uL (0-1.0); Monocytes % (A) 4 %; Neutrophils % (A) 94 %; RBC 4.19 m/uL (4.30-5.90); RDW 13.3 % (11.5-15.5); WBC 12.7 k/uL (3.8-10.6)
[2016-11-30 09:31] LABS: ALT 45 U/L (21-72); AST 21 U/L (17-59); Alkaline Phosphatase 37 U/L (38-126); Anion Gap 7 mmol/L; Blood Urea Nitrogen 18 mg/dL (9-20); Calcium 8.8 mg/dL (8.4-10.2); Carbon Dioxide 29 mmol/L (22-30); Chloride 99 mmol/L (98-107); Glucose 143 mg/dL (74-99); Non-African American GFR(MDRD) >60 (>60 ml/min/1.73 sqM); Sodium 135 mmol/L (137-145); Total Bilirubin 0.6 mg/dL (0.2-1.3); Total Protein 5.5 g/dL (6.3-8.2)
[2016-11-30] MEDS: SYMBICORT 160-4.5 MCG INHALER INHALATION SCH (09:56)
[2016-11-30] MEDS: IPRATROPIUM-ALBUTEROL 3 ML NEB INHALATION SCH ×3 (09:56→15:59)
--- NOTE | 2016-11-30 11:43 | P.PN ---
Subjective Principal diagnosis: acute exacerbation of COPD patient seen and examined. Patient states his breathing is slightly better today. He is complaining of chronic chest pain. He also has intermittent cough. He denies fevers and chills. Objective - Vital Signs Vital signs: Vital Signs Temp 97.3 F L 11/30/16 07:00 Pulse 80 11/30/16 11:33 Resp 22 11/30/16 07:00 BP 136/85 11/30/16 07:00 Pulse Ox 95 11/30/16 07:00 Intake & Output 11/29/16 11/30/16 11/30/16 18:59 06:59 18:59 Intake Total 960 1620 320 Balance 960 1620 320 Intake: Oral 960 1620 320 Other: Voiding Method Toilet # Voids 1 2 - Exam Gen.: Patient is alert and oriented 3, no acute distress Cardiovascular: Regular rate and rhythm, S1/S2 Lungs: Diminished breath sounds bilaterally otherwise clear Abdomen: Soft nontender nondistended positive bowel sounds Extremities: No edema - Labs CBC & Chem 7: 11/30/16 08:30 11/30/16 08:30 Labs: Abnormal Lab Results - Last 24 Hours (Table) 11/29/16 11/29/16 11/29/16 Range/Units 11:53 16:50 20:45 WBC (3.8-10.6) k/uL RBC (4.30-5.90) m/uL MCV (80.0-100.0) fL Neutrophils # (1.3-7.7) k/uL Lymphocytes # (1.0-4.8) k/uL Sodium (137-145) mmol/L Creatinine (0.66-1.25) mg/dL Glucose (74-99) mg/dL POC Glucose (mg/dL) 128 H 103 H 165 H (75-99) mg/dL Alkaline Phosphatase (38-126) U/L Total Protein (6.3-8.2) g/dL Albumin (3.5-5.0) g/dL 11/30/16 11/30/16 11/30/16 Range/Units 07:14 08:30 08:30 WBC 12.7 H (3.8-10.6) k/uL RBC 4.19 L (4.30-5.90) m/uL MCV 102.3 H (80.0-100.0) fL Neutrophils # 12.0 H (1.3-7.7) k/uL Lymphocytes # 0.2 L (1.0-4.8) k/uL Sodium 135 L (137-145) mmol/L Creatinine 0.54 L (0.66-1.25) mg/dL Glucose 143 H (74-99) mg/dL POC Glucose (mg/dL) 112 H (75-99) mg/dL Alkaline Phosphatase 37 L (38-126) U/L Total Protein 5.5 L (6.3-8.2) g/dL Albumin 3.2 L (3.5-5.0) g/dL Assessment and Plan Plan: acute exacerbation of COPD Tracheobronchitis next and emphysema Leukocytosis Hyponatremia Mild hyperkalemia Diabetes mellitus type 2 with hyperglycemia, possibly steroid induced Active tobacco abuse History of CVA Chronic pain syndrome GERD Hypertension O2 to maintain saturation greater than equal to 88% Symbicort Steroid taper Antibiotics Perforomist Singulair Smoking cessation is highly recommended Incentive spirometry and pulmonary hygiene GI and DVT prophylaxis Outpatient pulmonary follow-up with PFT Patient may benefit from pulmonary rehab, however, he has not yet followed up in the office after multiple readmissions
[2016-11-30 12:11] LABS: Glucose,Whole Blood 111 mg/dL (75-99)
[2016-11-30] MEDS: FOLIC ACID 1 MG TAB PO SCH (12:22)
[2016-11-30] MEDS: MULTIVITAMINS, THERA 1 EACH TAB PO SCH (12:22)
[2016-11-30 15:08] VITALS: BP 128/77; TEMP 96.4
[2016-11-30 16:03] VITALS: PULSE 82
[2016-11-30 17:06] LABS: Glucose,Whole Blood 118 mg/dL (75-99)
--- NOTE | 2016-11-30 18:06 | P.DS ---
Providers Date of admission: 11/29/16 00:22 Attending physician: Tricia Cano Consults: 11/29/16 00:27 Consult Physician Routine Consulting Provider: Benjamin Chester Consult Reason/Comments: known Do you want consulting provider notified?: Yes Primary care physician: [facility] Course: This is a 56-year-old gentleman that is well-known to our service comes in the hospital with the difficulty in breathing the. Patient was recently discharged from the hospital with a COPD exacerbation. Patient states that he has overexerted himself and has had difficulty breathing and pain in his chest. States that his pain is significantly worse in his chest. States that he does not smoke after he is being discharged home. Denies having any headaches, blurry vision, nausea, vomiting, diarrhea. Chest x-ray does not reveal an infiltrate at this time. Did not require any supplemental oxygen. His main concern appears to be pain 11/30/16 doing better discussed discharge as he was able to ambulate without supplemental o2 has cough , non productive in nature Phyrsical exam Gen. appearance oriented 3 in no distress Neck is supple no JVD Lungs good air movement appreciated, trace wheezing, some rhonchi noted on the upper airways. Heart S1-S2 heard regular rate and rhythm no murmurs appreciated Abdomen is soft nontender no organomegaly bowel sounds are intact Neurologically cranial nerves II-12 grossly intact no focal motor or sensory deficits noted Skin no abnormalities appreciated Assessment and Plan Plan: Acute exacerbation of COPD from acute tracheal bronchitis in a patient with the emphysema #2 mild hyponatremia #3 hyperkalemia #4 diabetes mellitus type 2 #5 chronic pain syndrome #6 hypertension #7 GERD #8 ongoing tobacco use #9 leukocytosis likely reactive in nature from steroid use in the recent times Plan on discussion of discharge pt attests on clinical improvement discussed that his symptoms are chronic and needs proper follow up has missed multiple visits with the media law faculty member. pt states if its okay to stay till dinner, I am concerned about his housing situation. however on questioning, states he has a place and does not wish to discuss or need any additional resources. course of zithromax no narcotics will be given.. However states that he is currently in process of moving to a new place. We'll continue treating the patient symptomatically for the next 24 hours and we 'll likely discharge him home thereafter. Patient's breathing has worsened within the last 3 days from the last note and this is likely secondary to patient's active smoking. Patient Condition at Discharge: Fair Plan - Discharge Summary New Discharge Prescriptions: Azithromycin [Zithromax] 500 mg PO DAILY #5 tab Discharge Medication List amLODIPine [Norvasc] 10 mg PO DAILY 02/07/15 [History] levETIRAcetam [Keppra] 500 mg PO QAM 02/07/15 [History] Albuterol Sulfate [Ventolin HFA] 2 puff INHALATION RT-QID PRN 03/31/15 [History] Budesonide-Formot 160-4.5 Mcg [Symbicort 160-4.5 Mcg Inhaler] 2 puff INHALATION RT-BID #1 puff 07/08/15 [Rx] Albuterol Nebulized [Ventolin Nebulized] 2.5 mg INHALATION RT-QID #0 11/13/16 [ Rx] Folic Acid 1 mg PO DAILY@1200 #30 tab 11/13/16 [Rx] Montelukast [Singulair] 10 mg PO HS #30 tab 11/13/16 [Rx] Thiamine [Vitamin B-1] 100 mg PO DAILY #30 tablet 11/13/16 [Rx] Multivitamins, Thera [Multivitamin (formulary)] 1 tab PO DAILY@1200 11/14/16 [ History] Famotidine [Pepcid] 20 mg PO BID 11/22/16 [History] ALPRAZolam [Xanax] 0.5 mg PO Q8HR PRN #10 tablet 11/27/16 [Rx] HYDROcodone/APAP 7.5-325MG [[place] 7.5-325] 1 tab PO Q6HR PRN #20 tab 11/27/16 [ Rx] predniSONE See Taper PO DAILY 11/28/16 [History] Azithromycin [Zithromax] 500 mg PO DAILY #5 tab 11/30/16 [Rx] Follow up Appointment(s)/Referral(s): Venus King DO [Doctor of Osteopathic Medicine] - 12/07/16 1:45 pm Urszula Carrasco MD [Primary Care Provider] - 1-2 days (office closed. please call to schedule an appointment) Patient Instructions/Handouts: Chronic Lung Disease and Infection Prevention ( [place]), Nutrition Guidelines for People with COPD ([place]) Activity/Diet/Wound Care/Special Instructions: Regular diet. Discharge Disposition: HOME SELF-CARE
[2016-11-30] MEDS ORDERED: methylPREDNISolone SOD SUCCI 40 MG/ML 1 ML VIAL IV SCH (21:00)
== END 2016-11-30 18:07 | disposition home or self-care (01) | DRG 191 ==
LOC: EC 22:43 → 4MS4W 11-29 00:22
PROVIDERS: ADMIT Hospitalist; ATTEND Hospitalist
DX: J44.0 Chronic obstructive pulmonary disease with (acute) lower respiratory infection (principal); E87.1 Hypo-osmolality and hyponatremia; E11.649 Type 2 diabetes mellitus with hypoglycemia without coma; I10 Essential (primary) hypertension; J20.9 Acute bronchitis, unspecified; J44.1 Chronic obstructive pulmonary disease with (acute) exacerbation; E87.5 Hyperkalemia; F41.0 Panic disorder [episodic paroxysmal anxiety]; G89.4 Chronic pain syndrome; I25.2 Old myocardial infarction; K21.9 Gastro-esophageal reflux disease without esophagitis; M19.90 Unspecified osteoarthritis, unspecified site; D72.829 Elevated white blood cell count, unspecified; T38.0X5A Adverse effect of glucocorticoids and synthetic analogues, initial encounter; Z79.899 Other long term (current) drug therapy; Z88.6 Allergy status to analgesic agent; Z88.5 Allergy status to narcotic agent; Z87.891 Personal history of nicotine dependence; Y92.009 Unspecified place in unspecified non-institutional (private) residence as the place of occurrence of the external cause
CPT/HCPCS: 36415; 71020; 80053; 82550; 82553; 83036; 83735; 83880; 84484; 85025; 85379; 85610; 85730; 87040; 93005; 94640; 94644; 94760; 96360; 99291

== ENCOUNTER 2016-12-01 21:34 | Emergency (ER) | payer OTHER ==
[2016-12-01 21:56] VITALS: TEMP 98.6
--- NOTE | 2016-12-01 23:29 | XR ---
EXAM: XR Left Knee, 3 views. XR Right Knee, 3 views. CLINICAL HISTORY: Reason: Pain TECHNIQUE: Six views of the bilateral knees. COMPARISON: No relevant prior studies available. FINDINGS: Bones/joints: Unremarkable. No acute fracture. No dislocation. Soft tissues: No radiopaque foreign body. IMPRESSION: No evidence of acute fracture.
--- NOTE | 2016-12-01 23:38 | ED ---
General Adult HPI - General Chief complaint: Extremity Problem,Nontraumatic Stated complaint: knee pain Time Seen by Provider: 12/01/16 22:21 Source: patient, EMS Mode of arrival: EMS Limitations: no limitations - History of Present Illness Initial comments: Patient is a 56-year-old male bilateral knee pain. Patient reports that the left knee is worse than his right. Patient reports this all occurred after bicycling. He is well-known to the emergency department for COPD. Patient was discharged yesterday for COPD exacerbation. Is currently on 3 L of oxygen and takes this regularly. Patient denies any significant new shortness of breath or chest pain. - Related Data Home Medications Medication Instructions Recorded Confirmed amLODIPine [Norvasc] 10 mg PO DAILY 02/07/15 11/28/16 levETIRAcetam [Keppra] 500 mg PO QAM 02/07/15 11/28/16 Albuterol Sulfate [Ventolin HFA] 2 puff INHALATION RT-QID PRN 03/31/15 11/28/16 Multivitamins, Thera [Multivitamin 1 tab PO DAILY@1200 11/14/16 11/28/16 (formulary)] Famotidine [Pepcid] 20 mg PO BID 11/22/16 11/28/16 predniSONE See Taper PO DAILY 11/28/16 11/28/16 Previous Rx's Medication Instructions Recorded Budesonide-Formot 160-4.5 Mcg 2 puff INHALATION RT-BID #1 puff 07/08/15 [Symbicort 160-4.5 Mcg Inhaler] Albuterol Nebulized [Ventolin 2.5 mg INHALATION RT-QID #0 11/13/16 Nebulized] Folic Acid 1 mg PO DAILY@1200 #30 tab 11/13/16 Montelukast [Singulair] 10 mg PO HS #30 tab 11/13/16 Thiamine [Vitamin B-1] 100 mg PO DAILY #30 tablet 11/13/16 ALPRAZolam [Xanax] 0.5 mg PO Q8HR PRN #10 tablet 11/27/16 HYDROcodone/APAP 7.5-325MG [[place] 1 tab PO Q6HR PRN #20 tab 11/27/16 7.5-325] Azithromycin [Zithromax] 500 mg PO DAILY #5 tab 11/30/16 Allergies Allergy/AdvReac Type Severity Reaction Status Date / Time morphine Allergy Rash/Hives Verified 12/01/16 21:52 aspirin AdvReac Severe Bleeding Verified 12/01/16 21:52 NSAIDS (Non-Steroidal AdvReac Severe Can't take Verified 12/01/16 21:52 Anti-Inflamma due to Hx of stroke. Review of Systems ROS Statement: Those systems with pertinent positive or pertinent negative responses have been documented in the HPI. ROS Other: All systems not noted in ROS Statement are negative. Past Medical History Past Medical History: COPD, CVA/TIA, Hypertension, Myocardial Infarction ([place]), Pneumonia, Respiratory Disorder Additional Past Medical History / Comment(s): 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,PER PAST MEDICAL HX NOTED C2 fracture(FROM [facility]-NOT ABLE TO CONFIRM WITH PT), Osteoarthritis, DJD, "FROZEN SHOULDER SYNDROME (RT)" , [place]-PT STATED IN THE Last Myocardial Infarction Date:: unknown History of Any Multi-Drug Resistant Organisms: None Reported Past Surgical History: Orthopedic Surgery Additional Past Surgical History / Comment(s): neck fx, metal plate left hand middle finger Past Anesthesia/Blood Transfusion Reactions: No Reported Reaction Past Psychological History: Panic Disorder Additional Psychological History / Comment(s): 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 - Past Family History Mother Family Medical History: Cancer Additional Family Medical History / Comment(s): Pt believes his Mom of Kidney Ca, but not 100% sure. Father Family Medical History: Cancer, Respiratory Disorder Additional Family Medical History / Comment(s): Melonoma General Exam - General Exam Comments Initial Comments: Patient is a chronically ill appering 56 year old male, no distress. Limitations: no limitations General appearance: alert, in no apparent distress Head exam: Present: atraumatic, normocephalic, normal inspection Eye exam: Present: normal appearance, PERRL, EOMI. Absent: scleral icterus, conjunctival injection, periorbital swelling ENT exam: Present: normal exam, mucous membranes moist Neck exam: Present: normal inspection. Absent: tenderness, meningismus, lymphadenopathy Respiratory exam: Present: normal lung sounds bilaterally, wheezes (significant wheezing and rhonchi, this is patient baseline. ). Absent: respiratory distress , rales, rhonchi, stridor Cardiovascular Exam: Present: regular rate, normal rhythm, normal heart sounds. Absent: systolic murmur, diastolic murmur, rubs, gallop, clicks GI/Abdominal exam: Present: soft, normal bowel sounds. Absent: distended, tenderness, guarding, rebound, rigid Extremities exam: Present: normal inspection, full ROM, normal capillary refill , other (bilateral knees have no significant erythema or swelling, patient has no bruising, full range of motion of both knees. ). Absent: tenderness, pedal edema, joint swelling, calf tenderness Back exam: Present: normal inspection Neurological exam: Present: alert, oriented X3, CN II-XII intact Psychiatric exam: Present: normal affect, normal mood Skin exam: Present: warm, dry, intact, normal color. Absent: rash Course Vital Signs 12/01/16 12/01/16 21:52 23:59 Temperature 98.6 F Pulse Rate 100 74 Respiratory 24 20 Rate Blood Pressure 133/74 151/95 O2 Sat by Pulse 97 95 Oximetry Medical Decision Making - Medical Decision Making Patient is a 56-year-old male bilateral knee pain. Patient reports that the left knee is worse than his right. Patient reports this all occurred after bicycling. He is well-known to the emergency department for COPD. Patient was discharged yesterday for COPD exacerbation. Is currently on 3 L of oxygen and takes this regularly. Patient denies any significant new shortness of breath or chest pain. Patient has no sigificant swelling or erythema of the knees. No laxity. Patient xrays negative for any acute process. Discussed follow up with orthopedic, and patient reports that he can walk at this time. Patient understands treatment plan and will comply. - Radiology Data Radiology results: report reviewed Xrays show joint arthropathy, no acute process to cause the knee pain. No fracture or dislocation. Disposition Clinical Impression: Knee pain, bilateral Disposition: HOME SELF-CARE Condition: Stable Instructions: Knee Pain (ED) Additional Instructions: Patient advised to follow up with primary care provider and orthopedic physician of knee pain continues to persist. Take at home pain medications. Return to emergency Department if any alarming signs or symptoms occur. Referrals: Urszula Carrasco MD [Primary Care Provider] - 1-2 days Robinson Rhodes MD [STAFF PHYSICIAN] - 1-2 days Time of Disposition: 23:47
[2016-12-02 00:01] VITALS: BP 151/95; PULSE 74; RESP 20
== END 2016-12-01 23:59 | disposition home or self-care (01) ==
LOC: EC 21:34
DX: M25.562 Pain in left knee (principal); M25.561 Pain in right knee; I10 Essential (primary) hypertension; I25.2 Old myocardial infarction; Z87.01 Personal history of pneumonia (recurrent); Z87.891 Personal history of nicotine dependence; Z79.899 Other long term (current) drug therapy; Z79.52 Long term (current) use of systemic steroids; Z88.5 Allergy status to narcotic agent; Z88.6 Allergy status to analgesic agent; Y93.55 Activity, bike riding
CPT/HCPCS: 99283

== ENCOUNTER 2016-12-05 20:40 | Inpatient (IN) | payer OTHER ==
[2016-12-05] MEDS ORDERED: IPRATROPIUM-ALBUTEROL 3 ML NEB INHALATION STA ×2 (21:59→23:57)
[2016-12-05] MEDS ORDERED: methylPREDNISolone SOD SUCCI 125 MG/2 ML VIAL IV STA (22:00)
--- NOTE | 2016-12-05 22:31 | XR ---
EXAMINATION TYPE: XR chest 2V DATE OF EXAM: 12/05/2016 10:21 PM COMPARISON: 11/29/2016 HISTORY: Difficulty breathing TECHNIQUE: Frontal and lateral views of the chest are obtained. FINDINGS: Heart and mediastinum are normal. Lungs are clear of infiltrate. There are no hilar masses . Costophrenic angles are clear. Bony thorax is intact. There is probably a small ranula in the right midlung. IMPRESSION: No active cardiopulmonary disease. Normal heart. No change.
[2016-12-05 23:31] LABS: Basophils % (A) 0 %; Eosinophils # (A) 0.1 k/uL (0-0.7); Eosinophils % (A) 1 %; HCT 47.2 % (39.0-53.0); HDW 2.24; HGB 16.6 gm/dL (13.0-17.5); Luc # (Auto) 0.11; Luc % (Auto) 1; Lymphocytes # (A) 1.1 k/uL (1.0-4.8); Lymphocytes % (A) 10 %; MCH 35.2 pg (25.0-35.0); MCHC 35.1 g/dL (31.0-37.0); MCV 100.3 fL (80.0-100.0); Mean Platelet Volume 6.1; Monocytes # (A) 0.7 k/uL (0-1.0); Monocytes % (A) 6 %; Neutrophils % (A) 82 %; RDW 13.6 % (11.5-15.5); WBC 10.9 k/uL (3.8-10.6); WBC (Perox) 10.55
[2016-12-05 23:40] LABS: ALT 62 U/L (21-72); AST 29 U/L (17-59); Alkaline Phosphatase 56 U/L (38-126); Anion Gap 8 mmol/L; Blood Urea Nitrogen 11 mg/dL (9-20); Calcium 9.2 mg/dL (8.4-10.2); Carbon Dioxide 30 mmol/L (22-30); Chloride 97 mmol/L (98-107); Glucose 67 mg/dL (74-99); Non-African American GFR(MDRD) >60 (>60 ml/min/1.73 sqM); Potassium 4.3 mmol/L (3.5-5.1); Sodium 135 mmol/L (137-145); Total Bilirubin 0.6 mg/dL (0.2-1.3); Total Protein 6.1 g/dL (6.3-8.2)
--- NOTE | 2016-12-06 00:03 | ED ---
General Adult HPI - General Chief complaint: Shortness of Breath Stated complaint: SOB Time Seen by Provider: 12/05/16 21:34 Source: patient, EMS Mode of arrival: EMS Limitations: no limitations - History of Present Illness Initial comments: The patient is a 56-year-old male who presents to the ED with a chief complaint of shortness of breath. The patient states that his symptoms have been present over the course of the past day since he was discharged from the hospital. The patient states that he believes that he might have overexerted himself. Patient notes that he is currently moving into a new location. Patient states that he has been compliant with all the medications that he is supposed to take while at home. Patient is currently on azithromycin. The patient denies any fevers or chills. He states that he is coughing up greenish sputum. The patient cites worsening shortness of breath with exertion. He states that he has chronic chest pain. Patient denies any sick contacts. Patient notes that he has swelling in the bilateral lower extremities. Patient denies any nausea or vomiting. Patient denies any changes. Patient states that he consumes alcohol on a regular basis. He states it is only 1 beer today. Patient states that despite his best effort, he has been unable to quit smoking. - Related Data Home Medications Medication Instructions Recorded Confirmed amLODIPine [Norvasc] 10 mg PO DAILY 02/07/15 12/05/16 levETIRAcetam [Keppra] 500 mg PO QAM 02/07/15 12/05/16 Albuterol Sulfate [Ventolin HFA] 2 puff INHALATION RT-QID PRN 03/31/15 12/05/16 Multivitamins, Thera [Multivitamin 1 tab PO DAILY@1200 11/14/16 12/05/16 (formulary)] Famotidine [Pepcid] 20 mg PO BID 11/22/16 12/05/16 Previous Rx's Medication Instructions Recorded Budesonide-Formot 160-4.5 Mcg 2 puff INHALATION RT-BID #1 puff 07/08/15 [Symbicort 160-4.5 Mcg Inhaler] Albuterol Nebulized [Ventolin 2.5 mg INHALATION RT-QID #0 11/13/16 Nebulized] Folic Acid 1 mg PO DAILY@1200 #30 tab 11/13/16 Montelukast [Singulair] 10 mg PO HS #30 tab 11/13/16 Thiamine [Vitamin B-1] 100 mg PO DAILY #30 tablet 11/13/16 ALPRAZolam [Xanax] 0.5 mg PO Q8HR PRN #10 tablet 11/27/16 HYDROcodone/APAP 7.5-325MG [Perry 1 tab PO Q6HR PRN #20 tab 11/27/16 7.5-325] Allergies Allergy/AdvReac Type Severity Reaction Status Date / Time aspirin AdvReac Severe Bleeding Verified 12/05/16 21:08 NSAIDS (Non-Steroidal AdvReac Severe Can't take Verified 12/05/16 21:08 Anti-Inflamma due to Hx of stroke. Review of Systems ROS Statement: Those systems with pertinent positive or pertinent negative responses have been documented in the HPI. ROS Other: All systems not noted in ROS Statement are negative. Constitutional: Denies: fever, chills, weakness ENT: Denies: ear pain, throat pain Respiratory: Reports: cough, dyspnea, wheezes. Denies: hemoptysis, stridor Cardiovascular: Reports: chest pain, dyspnea on exertion. 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,PER PAST MEDICAL HX NOTED C2 fracture(FROM [facility]-NOT ABLE TO CONFIRM WITH PT), Osteoarthritis, DJD, "FROZEN SHOULDER SYNDROME (RT)" , CA-PT STATED IN THE Last Myocardial Infarction Date:: unknown History of Any Multi-Drug Resistant Organisms: None Reported Past Surgical History: Orthopedic Surgery Additional Past Surgical History / Comment(s): neck fx, metal plate left hand middle finger Past Anesthesia/Blood Transfusion Reactions: No Reported Reaction Past Psychological History: Panic Disorder Additional Psychological History / Comment(s): 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 - Past Family History Mother Family Medical History: Cancer Additional Family Medical History / Comment(s): Pt believes his Mom of Kidney Ca, but not 100% sure. Father Family Medical History: Cancer, Respiratory Disorder Additional Family Medical History / Comment(s): Melonoma General Exam Limitations: no limitations General appearance: alert, in no apparent distress Head exam: Present: atraumatic, normocephalic Eye exam: Present: normal appearance, PERRL, EOMI, other (pupils are 3mm, equal and reactive). Absent: scleral icterus Pupils: Present: normal accommodation ENT exam: Present: normal exam, mucous membranes dry Neck exam: Present: normal inspection Respiratory exam: Present: wheezes, accessory muscle use, decreased breath sounds, prolonged expiratory. Absent: rales, rhonchi, stridor, chest wall tenderness Cardiovascular Exam: Present: normal rhythm, tachycardia GI/Abdominal exam: Present: soft. Absent: distended, tenderness, guarding, rebound Extremities exam: Present: normal inspection. Absent: tenderness Back exam: Present: normal inspection Neurological exam: Present: alert, oriented X3 Psychiatric exam: Present: normal affect, depressed Skin exam: Present: warm, dry, intact, erythema, other (likely with chronic erythema of the face) Course Vital Signs 12/05/16 12/05/16 12/05/16 20:45 22:18 22:27 Temperature 97.2 F L Pulse Rate 100 96 100 Respiratory 28 H 26 H Rate Blood Pressure 143/84 142/78 O2 Sat by Pulse 89 L 98 Oximetry 12/05/16 22:36 Temperature Pulse Rate 101 H Respiratory Rate Blood Pressure O2 Sat by Pulse Oximetry Medical Decision Making - Medical Decision Making The patient is a 56-year-old male who presents to the ED with a chief complaint of shortness of breath. Patient states the shortness of breath began shortly after he was discharged from the hospital a few days ago. Patient states that he is currently moving into a new residence. He states that he's been exerting himself quite a bit. He believes that he might have exacerbated his COPD once again. Patient states that he's been taking his azithromycin as directed while home. He notes that he's been using his DuoNeb inhaler. He states that he has used it three different times without any improvement of symptoms. On physical exam, patient is noted to have initial SpO2 of approximately 86% on room air. Patient states that he does not wear oxygen while at home. In addition, patient noted to be diffusely wheezy throughout all brown. Patient does have history of COPD. He has multiple past hospital admissions. He has a history of questionable compliance with his medications. Patient also has a history of smoking while home. Check CBC, BMP, Mag. Check troponin and BNP. Chest x- ray. EKG. Keep patient on telemetry monitor. Check influenza. Patient on 2 L nasal cannula. 12:03 AM The patient states that he is still feeling terrible overall. He notes that he feels chest tightness and wheezing. SpO2 is noted to be 93% on 2L NC. Patient remains wheezy throughout all brown. Remains tachycardic. Patient now complaining of pain in the left knee. Reviewing the patient's records, he has complained of pain in left knee on prior visits. During one of those visits, an x-ray was performed that demonstrated no acute pathology. Will order additional DuoNeb treatment for patient given that he is still wheezy. Patient will require admission for further management of the shortness of breath and exacerbation of COPD. - Lab Data Result diagrams: 12/05/16 22:38 12/05/16 22:38 Lab Results 12/05/16 12/05/16 12/05/16 Range/Units 22:38 22:38 22:38 WBC 10.9 H (3.8-10.6) k/uL RBC 4.70 (4.30-5.90) m/uL Hgb 16.6 (13.0-17.5) gm/dL Hct 47.2 (39.0-53.0) % MCV 100.3 H (80.0-100.0) fL MCH 35.2 H (25.0-35.0) pg MCHC 35.1 (31.0-37.0) g/dL RDW 13.6 (11.5-15.5) % Plt Count 226 (150-450) k/uL Neutrophils % 82 % Lymphocytes % 10 % Monocytes % 6 % Eosinophils % 1 % Basophils % 0 % Neutrophils # 9.0 H (1.3-7.7) k/uL Lymphocytes # 1.1 (1.0-4.8) k/uL Monocytes # 0.7 (0-1.0) k/uL Eosinophils # 0.1 (0-0.7) k/uL Basophils # 0.0 (0-0.2) k/uL Sodium 135 L (137-145) mmol/L Potassium 4.3 (3.5-5.1) mmol/L Chloride 97 L (98-107) mmol/L Carbon Dioxide 30 (22-30) mmol/L Anion Gap 8 mmol/L BUN 11 (9-20) mg/dL Creatinine 0.50 L (0.66-1.25) mg/dL Est GFR (MDRD) Af Amer >60 (>60 ml/min/1.73 sqM) Est GFR (MDRD) Non-Af >60 (>60 ml/min/1.73 sqM) Glucose 67 L (74-99) mg/dL Plasma Lactic Acid Gray 1.4 (0.7-2.0) mmol/L Calcium 9.2 (8.4-10.2) mg/dL Magnesium 2.0 (1.6-2.3) mg/dL Total Bilirubin 0.6 (0.2-1.3) mg/dL AST 29 (17-59) U/L ALT 62 (21-72) U/L Alkaline Phosphatase 56 (38-126) U/L Troponin I (0.000-0.034) ng/mL NT-Pro-B Natriuret Pep pg/mL Total Protein 6.1 L (6.3-8.2) g/dL Albumin 3.6 (3.5-5.0) g/dL Influenza Type A RNA (Not Detectd) Influenza Type B (PCR) (Not Detectd) 12/05/16 12/05/16 12/05/16 Range/Units 22:38 22:38 22:46 WBC (3.8-10.6) k/uL RBC (4.30-5.90) m/uL Hgb (13.0-17.5) gm/dL Hct (39.0-53.0) % MCV (80.0-100.0) fL MCH (25.0-35.0) pg MCHC (31.0-37.0) g/dL RDW (11.5-15.5) % Plt Count (150-450) k/uL Neutrophils % % Lymphocytes % % Monocytes % % Eosinophils % % Basophils % % Neutrophils # (1.3-7.7) k/uL Lymphocytes # (1.0-4.8) k/uL Monocytes # (0-1.0) k/uL Eosinophils # (0-0.7) k/uL Basophils # (0-0.2) k/uL Sodium (137-145) mmol/L Potassium (3.5-5.1) mmol/L Chloride (98-107) mmol/L Carbon Dioxide (22-30) mmol/L Anion Gap mmol/L BUN (9-20) mg/dL Creatinine (0.66-1.25) mg/dL Est GFR (MDRD) Af Amer (>60 ml/min/1.73 sqM) Est GFR (MDRD) Non-Af (>60 ml/min/1.73 sqM) Glucose (74-99) mg/dL Plasma Lactic Acid Gray (0.7-2.0) mmol/L Calcium (8.4-10.2) mg/dL Magnesium (1.6-2.3) mg/dL Total Bilirubin (0.2-1.3) mg/dL AST (17-59) U/L ALT (21-72) U/L Alkaline Phosphatase (38-126) U/L Troponin I <0.012 (0.000-0.034) ng/mL NT-Pro-B Natriuret Pep 225 pg/mL Total Protein (6.3-8.2) g/dL Albumin (3.5-5.0) g/dL Influenza Type A RNA Not Detected (Not Detectd) Influenza Type B (PCR) Not Detected (Not Detectd) Disposition Clinical Impression: Acute exacerbation of chronic obstructive pulmonary disease (COPD) Disposition: ADMITTED IP TO THIS [facility] Time of Disposition: 00:03 Decision to Admit Reason: Admit from EC Decision Date: 12/06/16 Decision Time: 00:03
[2016-12-06] MEDS: IPRATROPIUM-ALBUTEROL 3 ML NEB INHALATION PRN ×2 (01:48→05:47)
[2016-12-06] MEDS: HYDROcodone/APAP 7.5-325MG 1 EACH TAB PO PRN ×4 (02:26→23:01)
[2016-12-06] MEDS: methylPREDNISolone SOD SUCCI 125 MG/2 ML VIAL IV SCH ×4 (06:42→23:02)
[2016-12-06 11:09] LABS: Appearance,Urine Clear (Clear); Bilirubin,Urine Negative (Negative); Glucose,Urine (UA) 3+ (Negative); Ketones,Urine Trace (Negative); Leukocyte Esterase,Urine Negative (Negative); Nitrite,Urine Negative (Negative); Protein,Urine Trace (Negative); Specific Gravity,Urine 1.022 (1.001-1.035); UA Billing (MACRO vs. MICRO) CHEM
[2016-12-06] MEDS: BUDESONIDE 1 MG/2 ML NEBU INHALATION SCH ×2 (11:27→18:54)
[2016-12-06] MEDS ORDERED: IPRATROPIUM-ALBUTEROL 3 ML NEB INHALATION SCH (12:00)
[2016-12-06] MEDS: amLODIPine 10 MG TAB PO SCH (12:09)
[2016-12-06] MEDS: FOLIC ACID 1 MG TAB PO SCH (12:10)
[2016-12-06] MEDS: FAMOTIDINE 20 MG TAB PO SCH ×2 (12:10→21:40)
[2016-12-06] MEDS: levETIRAcetam 500 MG TAB PO SCH (12:10)
[2016-12-06] MEDS: CEFUROXIME 250 MG TAB PO SCH ×2 (12:37→21:40)
--- NOTE | 2016-12-06 13:35 | HP ---
DATE OF ADMISSION: 12/06/2016 PRESENTING COMPLAINT: Short of breath. HISTORY OF PRESENTING COMPLAINT: This is a 56-year-old patient of Dr. Urszula Carrasco. His chronic stable medical conditions include diabetes, chronic pain, hypertension, GERD, prior stroke with a basal ganglia hemorrhage, myocardial infarction. Patient presented with progressively short of breath, wheezing, cough, initially clear sputum then green sputum. Patient follows with his branch operations specialist, Dr. Radha Chester. Denies any fever. Appetite has been good. Quite a bit short of breath at rest. Admitted for the same. Patient also felt some chest pressure. REVIEW OF SYSTEMS: CONSTITUTIONAL: Tired. HEENT: None. RESPIRATORY: As above. CARDIOVASCULAR: As above. GASTROINTESTINAL: None. GENITOURINARY: None. MUSCULOSKELETAL: Chronic pain in the joints. DERMATOLOGICAL: None. HEMATOLOGIC: None. LYMPHATICS: None. PSYCHIATRY: Some anxiety. NEUROLOGICAL: None. PAST MEDICAL HISTORY: COPD, stroke with basal ganglial hemorrhage, hypertension, myocardial infarction, pneumonia, C2 fracture, questionable osteoarthritis, frozen right shoulder. SOCIAL HISTORY: Patient smoked a pack a day for close to 40 years; stopped about 6 months ago. 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 Patient is just in the process of moving into a new place. FAMILY HISTORY: The patient's mother had kidney cancer. HOME MEDICATIONS: 1. Ventolin HFA 2 puffs q.i.d. p.r.n. 2. Ventolin 2.5 nebulizer q.i.d. 3. Xanax 0.5 q.8 p.r.n. 4. Keppra 500 mg p.o. daily. 5. Norvasc 10 mg p.o. daily. 6. Thiamine 100 mg p.o. daily. 7. Multivitamin 1 tablet p.o. daily. 8. Singulair 10 mg q.h.s. 9. Alto 7.5 one tablet q.6 p.r.n. 10. Folic acid 1 mg p.o. daily. 11. Pepcid 20 mg p.o. b.i.d. 12. Symbicort 160/4.5 two puffs b.i.d. Allergies to ASPIRIN and NSAID. ON EXAMINATION: VITAL SIGNS ON PRESENTATION: Temperature 97.2, pulse 100, respiration 28, blood pressure 143/84, pulse OX 89% on room air. GENERAL APPEARANCE: Average built, sitting up, short of breath. EYES: Pupils equal. Conjunctivae normal. HENT: Oral cavity normal. NECK: JVD not raised. Mass not palpable. RESPIRATORY: Effort increased. Accessory muscles are working. Not able to speak in full sentences. LUNGS: Diminished breath sounds. Prolonged expiration. Some scattered crackles, expiratory. CARDIOVASCULAR: First and second sounds normal. No edema. ABDOMEN: Soft, nontender. Liver and spleen not palpable. LYMPHATIC: No lymph nodes palpable in neck or axillae. PSYCHIATRY: Alert and oriented x3. Mood and affect anxious appearing. NEUROLOGICAL: Pupils equal. Cranial nerves grossly intact. Power and sensation grossly intact. INVESTIGATIONS: White count 10.9, hemoglobin 16.6. Potassium 4.3. BUN 11, creatinine 0.5. Chest x-ray unable to pull up on the system ( ) did not show any obvious infiltrate. ASSESSMENT: 1. Acute severe chronic obstructive pulmonary disease exacerbation in an ex-smoker from acute tracheobronchitis, causing acute hypoxic respiratory failure. 2. Chronic osteoarthritis of multiple joints. 3. Essential hypertension. 4. Gastroesophageal reflux disease. 5. Prior history of stroke with a basal ganglia hemorrhage. 6. Chest pressure and a previous history of myocardial infarction with a negative troponin and nonspecific EKG changes. PLAN: Patient is put on nebulized bronchodilators, IV steroids, oxygen supplementation, will also give nebulized steroids. Will get a cardiology opinion, also consult Pulmonary. Care was discussed with the patient. Will also put the patient on Ceftin.
[2016-12-06] MEDS: IPRATROPIUM-ALBUTEROL 3 ML NEB INHALATION SCH ×4 (13:47→23:16)
--- NOTE | 2016-12-06 17:19 | CONS ---
DATE OF CONSULTATION: 12/06/2016 HISTORY OF PRESENT ILLNESS: The patient is a 56-year-old male who was recently discharged from [facility] for an exacerbation of chronic obstructive pulmonary disease. I believe that was 2 days ago. The patient states he was overexerting himself moving into a new place and started to experience worsening shortness of breath with the chest pain he has never had before which scared him. Subsequently, patient came to the emergency room at [facility] and was admitted for further evaluation and treatment. PAST MEDICAL HISTORY: Significant for COPD, CVA, TIA, GERD, hypertension, pneumonia, osteoarthritis, degenerative joint disease, back fracture, frozen shoulder syndrome and myocardial infarction. PAST SURGICAL HISTORY: Repair of left middle finger with a metal plate. ALLERGIES INCLUDE ASPIRIN AND NSAIDS. MEDICATIONS: The patient is on at home include: Ventolin HFA q.i.d. p.r.n., albuterol via nebulizer 2.5 q.i.d., Xanax 0.5 mg p.o. q.8 hours p.r.n., Keppra 500 mg p.o. q.a.m., Norvasc 10 mg p.o. daily. Vitamin B1 100 mg p.o. daily, multivitamin 1 daily, Singulair 10 mg p.o. q.h.s., hydrocodone 7.5/1 tab p.o. every 6 hours p.r.n., folic acid 1 mg daily, Pepcid 20 mg p.o. b.i.d. and Symbicort b.i.d. FAMILY HISTORY: The patient's father in his 50s from emphysema. Mother in her 90s from liver cancer. SOCIAL HISTORY: The patient does have a history of smoking about 1/2 pack per day for the past 40 years and does continue to smoke when he is discharged from the hospital. The patient also consumes alcohol 2 to 3 beers a day. Denies any illicit drug use. Again, is currently moving into a boarding house type home. REVIEW OF SYSTEMS: GENERAL: Negative for any fever, chills or worsening, fatigue. HEENT: Negative for acute visual changes. Denies any difficulty hearing. Denies any sore throat or difficulty swallowing. RESPIRATORY: Positive for shortness of breath with cough, wheezing. Denies any hemoptysis. CARDIOVASCULAR: Positive for chest pain, which is chronic in nature. ENDOCRINE: Negative for diabetes mellitus or thyroid disease. GI: Negative for abdominal pain, nausea, vomiting, diarrhea, or constipation. : Negative for any dysuria, hematuria, or frequency. MUSCULOSKELETAL: Positive for osteoarthritis and chronic pain. NEUROLOGIC: Patient does have a history of cerebrovascular accident. Denies any headache or weakness. On physical exam, general is a 56-year-old male who is seen sitting up in a chair, is awake, alert, hemodynamically stable, afebrile, in no acute distress. VITAL SIGNS: Temp is 98.5, heart rate is 84, respiratory rate is 20, blood pressure is 141/74, O2 sats 91% on room air. HEENT: Head is normocephalic, atraumatic. Pupils equal, round, react to light. Ears and nose, no discharge is noted. MOUTH: Moist mucous membranes. NECK: Supple. Trachea is midline. LUNGS: With decreased breath sounds. Prolonged expiratory phase and expiratory wheeze. HEART: S1 and S2 are heard. Not tachycardic. ABDOMEN: Soft. Bowel sounds are heard. EXTREMITIES: With trace edema bilaterally. NEUROLOGIC: The patient is awake and alert, oriented. LABS: White count is 10.9, hemoglobin 16.6, hematocrit 47.2 with 226,000 platelets. Sodium is 135, potassium is 4.3, chloride 97. CO2 is 30. Anion gap is 8, BUN 11, creatinine 0.50, glucose is 67, venous lactic acid is 1.4. Calcium is 9.2. Magnesium is 2.0, total bilirubin 0.6, AST 29, ALT 62, alkaline phosphatase 56. Troponins less than 0.012. BNP is 225. Total protein 6.1. Albumin is 3.6. Urinalysis shows trace protein, 3+ glucose, trace ketones, influenza A and B negative. Chest x-ray no active cardiopulmonary disease, normal heart, no change. IMPRESSION: 1. Chronic obstructive pulmonary disease with acute exacerbation. 2. Chest pain, chronic in nature. 3. History of cerebrovascular accident. PLAN: Continue with oxygen to maintain saturations greater than or equal to 88%. Agree with bronchodilators and aerosolized steroids with IV Solu-Medrol 60 mg q.6. Continue leukotriene inhibitor. Continue GI and DVT prophylaxis. Will add incentive spirometry and pulmonary hygiene and follow the patient closely with you, making further changes as necessary. Thank you for the consultation.
[2016-12-06] MEDS: MONTELUKAST 10 MG TAB PO SCH (21:40)
[2016-12-06] MEDS: ALPRAZolam 0.5 MG TAB PO PRN (23:01)
[2016-12-07] MEDS: IPRATROPIUM-ALBUTEROL 3 ML NEB INHALATION SCH ×5 (04:17→20:50)
[2016-12-07] MEDS: HYDROcodone/APAP 7.5-325MG 1 EACH TAB PO PRN ×3 (05:31→23:54)
[2016-12-07] MEDS: methylPREDNISolone SOD SUCCI 125 MG/2 ML VIAL IV SCH ×2 (06:45→22:05)
[2016-12-07] MEDS: BUDESONIDE 1 MG/2 ML NEBU INHALATION SCH (07:19)
[2016-12-07] MEDS: CEFUROXIME 250 MG TAB PO SCH ×2 (08:28→22:13)
[2016-12-07] MEDS: amLODIPine 10 MG TAB PO SCH (08:29)
[2016-12-07] MEDS: levETIRAcetam 500 MG TAB PO SCH (08:29)
[2016-12-07] MEDS: ALPRAZolam 0.5 MG TAB PO PRN ×2 (08:29→21:30)
[2016-12-07] MEDS: FAMOTIDINE 20 MG TAB PO SCH ×2 (08:29→22:14)
--- NOTE | 2016-12-07 11:14 | P.PN ---
Subjective Principal diagnosis: Chest pain Patient seen and examined. Patient states his chest pain is better. He states his breathing is a little bit better today. He states he rode his bike and had chest pain which is what brought him back into the hospital. Objective - Vital Signs Vital signs: Vital Signs Temp 96.7 F L 12/07/16 07:00 Pulse 88 12/07/16 08:00 Resp 18 12/07/16 08:00 BP 129/70 12/07/16 07:00 Pulse Ox 96 12/07/16 07:00 Intake & Output 12/06/16 12/07/16 12/07/16 18:59 06:59 18:59 Intake Total 640 400 Output Total 300 Balance 340 400 Intake: Oral 640 400 Output: Urine 300 Other: Voiding Method Toilet Toilet # Voids 1 1 - Exam Gen.: Patient is alert and oriented 3, no acute distress Cardiovascular: Regular rate and rhythm, S1/S2 Lungs: Diminished breath sounds bilaterally otherwise clear Abdomen: Soft nontender nondistended positive bowel sounds Extremities: No edema - Labs CBC & Chem 7: 12/05/16 22:38 12/05/16 22:38 Labs: Abnormal Lab Results - Last 24 Hours (Table) 12/06/16 Range/Units 10:55 Urine Protein Trace H (Negative) Urine Glucose (UA) 3+ H (Negative) Urine Ketones Trace H (Negative) Microbiology - Last 24 Hours (Table) 12/06/16 10:55 Urine Culture - Preliminary Urine,Clean Catch Assessment and Plan Plan: Acute exacerbation of COPD Chronic musculoskeletal chest pain History of CVA Emphysema Diabetes mellitus type 2 with hyperglycemia Active tobacco abuse Chronic pain syndrome GERD Hypertension Hyponatremia O2 to maintain saturation greater than or equal to 88% Bronchodilators Pulmicort Steroid taper Perforomist Singulair Smoking cessation is highly recommended Psychiatric evaluation Consult social work Incentive spirometry and pulmonary hygiene GI and DVT prophylaxis Outpatient pulmonary follow-up with PFT Patient may benefit from pulmonary rehab
[2016-12-07] MEDS: FOLIC ACID 1 MG TAB PO SCH (12:05)
[2016-12-07] MEDS: HEPARIN SODIUM,PORCINE 5,000 UNIT/ML 1 ML VIAL SQ SCH ×2 (16:12→23:55)
[2016-12-07] MEDS ORDERED: BUDESONIDE 1 MG/2 ML NEBU INHALATION SCH (20:00)
[2016-12-07] MEDS: BUDESONIDE 0.5 MG/2 ML NEBU INHALATION SCH (20:49)
[2016-12-07] MEDS: FORMOTEROL FUMARATE 20 MCG/2 ML NEBU INHALATION SCH (20:49)
[2016-12-07] MEDS: MONTELUKAST 10 MG TAB PO SCH (22:14)
[2016-12-08] MEDS ORDERED: ALBUTEROL NEBULIZED 2.5 MG/3 ML INHALATION SCH
[2016-12-08] MEDS: IPRATROPIUM 0.5 MG/2.5 ML NEBU INHALATION SCH ×6 (00:10→20:39)
[2016-12-08] MEDS: ALBUTEROL NEB (CONC) 2.5 MG/0.5 ML INHALATION SCH ×6 (00:10→20:39)
[2016-12-08 03:37] LABS: Glucose,Whole Blood 140 mg/dL (75-99)
[2016-12-08 08:45] LABS: Basophils % (A) 0 %; CH 34.9; CHCM 35.6; Eosinophils % (A) 0 %; HCT 39.6 % (39.0-53.0); HDW 2.24; Luc # (Auto) 0.08; Luc % (Auto) 1; Lymphocytes # (A) 0.1 k/uL (1.0-4.8); Lymphocytes % (A) 1 %; MCH 34.9 pg (25.0-35.0); MCHC 35.5 g/dL (31.0-37.0); MCV 98.4 fL (80.0-100.0); Mean Platelet Volume 7.4; Monocytes # (A) 0.5 k/uL (0-1.0); Monocytes % (A) 4 %; Neutrophils # (A) 11.2 k/uL (1.3-7.7); Neutrophils % (A) 94 %; RBC 4.02 m/uL (4.30-5.90); RDW 13.4 % (11.5-15.5); WBC 11.9 k/uL (3.8-10.6)
[2016-12-08] MEDS: FAMOTIDINE 20 MG TAB PO SCH ×2 (08:50→21:18)
[2016-12-08] MEDS: levETIRAcetam 500 MG TAB PO SCH (08:50)
[2016-12-08] MEDS: amLODIPine 10 MG TAB PO SCH (08:50)
[2016-12-08] MEDS: CEFUROXIME 250 MG TAB PO SCH ×2 (08:50→21:18)
[2016-12-08] MEDS: HEPARIN SODIUM,PORCINE 5,000 UNIT/ML 1 ML VIAL SQ SCH ×3 (08:51→23:51)
[2016-12-08] MEDS: methylPREDNISolone SOD SUCCI 125 MG/2 ML VIAL IV SCH (08:52)
[2016-12-08] MEDS: HYDROcodone/APAP 7.5-325MG 1 EACH TAB PO PRN ×2 (08:54→18:37)
[2016-12-08] MEDS: ALPRAZolam 0.5 MG TAB PO PRN ×2 (08:54→23:53)
[2016-12-08 09:05] LABS: Anion Gap 5 mmol/L; Blood Urea Nitrogen 20 mg/dL (9-20); Carbon Dioxide 29 mmol/L (22-30); Chloride 98 mmol/L (98-107); Glucose 112 mg/dL (74-99); Non-African American GFR(MDRD) >60 (>60 ml/min/1.73 sqM); Potassium 4.6 mmol/L (3.5-5.1); Sodium 132 mmol/L (137-145)
[2016-12-08] MEDS: BUDESONIDE 0.5 MG/2 ML NEBU INHALATION SCH ×2 (10:15→20:39)
[2016-12-08] MEDS: FORMOTEROL FUMARATE 20 MCG/2 ML NEBU INHALATION SCH ×2 (10:15→20:39)
--- NOTE | 2016-12-08 10:50 | PN ---
DATE OF SERVICE: 12/07/2016 PRESENTING COMPLAINT: Short of breath. INTERVAL HISTORY: This is a patient who presented with severe COPD exacerbation, still wheezing and ( ) cough, tired, sitting up. Review of system for constitutional, cardiovascular, GI, pulmonary; relevant findings as above. Current medications are reviewed including DuoNeb, nebulized bronchodilator. On examination, temperature 97.1, pulse 98, respiration 20, blood pressure 190/70, pulse ox 93% on 2 L. GENERAL APPEARANCE: Sitting up, short of breath at rest. EYES: Pupils equal. Conjunctivae normal. NECK: JVD not raised. Mass not palpable. Respiratory effort increased, accessory muscles are working, not able to speak in full sentences. LUNGS: Diminished breath sounds, poor expiration, expiratory wheezing, crackles. CARDIOVASCULAR: First and second sounds normal. No edema. ABDOMEN: Soft, nontender. Liver and spleen not palpable. PSYCHIATRY: Alert and oriented x3. Mood and affect anxious-appearing. INVESTIGATIONS: No blood work from today. ASSESSMENT: 1. Acute severe chronic obstructive pulmonary disease exacerbation in an ex-smoker from acute tracheobronchitis, causing acute respiratory hypoxic failure, present at admission, slow to respond. 2. Chronic ( ) of multiple joints. 3. Essential hypertension. 4. Gastroesophageal reflux disease. 5. Prior history of stroke in basal ganglia. 6. Hemorrhoids. PLAN: Continue current medication and treatment plan. Care was discussed with the patient. Mucinex has been added. Will follow.
[2016-12-08] MEDS: FOLIC ACID 1 MG TAB PO SCH (12:42)
[2016-12-08] MEDS: predniSONE 20 MG TAB PO SCH (12:42)
[2016-12-08 14:40] LABS: RBC Morphology Normal
--- NOTE | 2016-12-08 15:14 | PN ---
He was seen again on 12/08/2016. He has been hemodynamically stable. He is less short of breath. On physical examination, he is lying in bed. He complains of shortness of breath but does not seem to be in respiratory distress. On room air, his O2 sat is 94%, blood pressure is 124/81, respiratory rate of 20, pulse rate of 93, temperature 97 degrees Fahrenheit. O2 sat is 94% on room air. HEENT is unremarkable. Chest reveals decreased breath sounds, prolonged expiration. Wheeze on forced expiration. Cardiovascular system reveals an S1, S2. Abdomen is soft. There is no pedal edema. IMPRESSION: Severe chronic obstructive pulmonary disease with an asthmatic component with acute exacerbation. Would discontinue IV steroids. Switch him to oral steroids. Increase his activity level. He may require a low taper which can be done as an outpatient. Depending how he does, we shall make further changes to his care.
--- NOTE | 2016-12-08 17:55 | PN ---
DATE OF SERVICE: 12/08/2016 Presenting complaint: Short of breath. INTERVAL HISTORY: This patient presented with severe COPD exacerbation. Currently wheezing and cough. Did not sleep for ( ) sitting on the bed, rather tired -appearing. Wheezing a shade better. Slightly decreased cough. Review of systems done for constitutional, cardiovascular, GI, pulmonary; relevant findings as above. Current medications include nebulized bronchodilators, IV steroids, the dose of which is increased last night. On examination, temperature 98.7, pulse 93, respiration 20, blood pressure 124/81, pulse ox 94% on 2 liters. GENERAL APPEARANCE: Sitting up on chair. Tired-appearing. EYES: Pupils equal. Conjunctivae normal. NECK: JVD not raised. Mass not palpable. RESPIRATORY: Effort increased. LUNGS: Decreased breath sounds, decreased wheezing, than yesterday. CARDIOVASCULAR: First and second sounds normal. No edema. ABDOMEN: Soft, nontender. Liver and spleen not palpable. PSYCHIATRY: Tired appearing, answering questions. INVESTIGATIONS: White count 11.9, potassium 4.6 ASSESSMENT: 1. Acute severe chronic obstructive pulmonary disease exacerbation in an ex-smoker from acute tracheobronchitis causing acute respiratory hypoxic failure, present on admission, slow to respond. 2. Chronic arthritis of multiple joints. 3. Essential hypertension. 4. Gastroesophageal reflux disease. 5. Prior history of stroke with bleeding in the basal ganglia. 6. Hemorrhoids. PLAN: Continue current medication and treatment plan. Patient will need at least another 48 hours in the hospital.
[2016-12-08] MEDS: guaiFENesin 600 MG TABLET.ER PO PRN (18:48)
[2016-12-08] MEDS: MONTELUKAST 10 MG TAB PO SCH (21:18)
[2016-12-09] MEDS: ALBUTEROL NEB (CONC) 2.5 MG/0.5 ML INHALATION SCH ×6 (00:05→20:30)
[2016-12-09] MEDS: IPRATROPIUM 0.5 MG/2.5 ML NEBU INHALATION SCH ×7 (00:05→20:30)
[2016-12-09] MEDS: HYDROcodone/APAP 7.5-325MG 1 EACH TAB PO PRN ×4 (00:24→19:53)
[2016-12-09] MEDS: BUDESONIDE 0.5 MG/2 ML NEBU INHALATION SCH ×2 (09:03→20:30)
[2016-12-09] MEDS: FORMOTEROL FUMARATE 20 MCG/2 ML NEBU INHALATION SCH ×2 (09:03→20:30)
[2016-12-09] MEDS: predniSONE 20 MG TAB PO SCH (09:25)
[2016-12-09] MEDS: FAMOTIDINE 20 MG TAB PO SCH ×2 (09:25→19:52)
[2016-12-09] MEDS: CEFUROXIME 250 MG TAB PO SCH ×2 (09:25→19:53)
[2016-12-09] MEDS: HEPARIN SODIUM,PORCINE 5,000 UNIT/ML 1 ML VIAL SQ SCH ×3 (09:25→23:44)
[2016-12-09] MEDS: amLODIPine 10 MG TAB PO SCH (09:26)
[2016-12-09] MEDS: levETIRAcetam 500 MG TAB PO SCH (09:26)
[2016-12-09] MEDS: ALPRAZolam 0.5 MG TAB PO PRN (10:53)
[2016-12-09] MEDS: FOLIC ACID 1 MG TAB PO SCH (12:44)
--- NOTE | 2016-12-09 14:13 | PN ---
DATE OF SERVICE: 12/09/2016 He continues to have shortness of breath, but seems to be about near his baseline. On physical examination vitals are stable. He is afebrile. His chest reveals decreased breath sounds, prolonged expiration. Wheeze on forced expiration. Cardiovascular system reveals an S1 and S2. No S3, no S4. Abdomen is soft. There is no edema. IMPRESSION: Asthma with severe chronic obstructive pulmonary disease with acute exacerbation. Increase his active in the level. Continue steroids, bronchodilators. Discharge planning is appropriate at this time from a pulmonary standpoint. He was counseled regarding his condition and this approach.
[2016-12-09] MEDS ORDERED: CHLORPHEN-HYDROcod 8-10mg/5ml 5 ML ORAL.SYRG PO SCH (18:30)
[2016-12-09] MEDS: MONTELUKAST 10 MG TAB PO SCH (19:53)
[2016-12-09] MEDS: CHLORPHEN-HYDROcod 8-10mg/5ml 5 ML ORAL.SYRG PO PRN (19:57)
[2016-12-09] MEDS: OLANZapine 5 MG TAB PO SCH (21:20)
[2016-12-09] MEDS: guaiFENesin 600 MG TABLET.ER PO PRN (23:45)
[2016-12-10] MEDS: ALBUTEROL NEB (CONC) 2.5 MG/0.5 ML INHALATION SCH ×5 (00:12→16:03)
[2016-12-10] MEDS: IPRATROPIUM 0.5 MG/2.5 ML NEBU INHALATION SCH ×5 (00:12→16:03)
[2016-12-10 07:29] VITALS: BP 133/90; RESP 16; TEMP 98.3
--- NOTE | 2016-12-10 07:55 | PN ---
DATE OF SERVICE: 12/09/2016 PRESENTING COMPLAINT: Short of breath. INTERVAL HISTORY: This gentleman was admitted with severe COPD exacerbation; wheezing and coughing is much improved, tolerating a diet, far more awake. Patient told to be out of bed. Review of systems done for constitutional, cardiovascular, GI, pulmonary; relevant findings as above. Current medications are reviewed including patient's nebulized bronchodilators switched over to oral prednisone by Pulmonary. On examination, temperature 97, pulse 101, respiration 18, blood pressure 132/88, pulse ox 98% on 2 L. GENERAL APPEARANCE: Sitting up, more comfortable. EYES: Pupils equal. Conjunctivae normal. NECK: JVD not raised. Mass not palpable. Respiratory effort increased. LUNGS: Decreased breath sounds, prolonged expiration. CARDIOVASCULAR: First and second sounds normal. No edema. ABDOMEN: Soft, nontender. Liver and spleen not palpable. PSYCHIATRY: Alert and oriented x3. Mood and affect slightly anxious-appearing. INVESTIGATIONS: No blood work from today. ASSESSMENT: 1. Acute severe chronic obstructive pulmonary disease exacerbation in an ex-smoker for acute tracheobronchitis, causing acute hypoxic respiratory failure, present at admission, improving. 2. Chronic arthritis in multiple joints. 3. Essential hypertension. 4. Gastroesophageal reflux disease. 5. Prior history of stroke with bleeding in the basal ganglia. 6. Hemorrhoids. PLAN: Overall doing much better. Care was discussed with the patient. Looking at probably discharged tomorrow. Discussed with the patient.
[2016-12-10] MEDS: OLANZapine 5 MG TAB PO SCH (08:05)
[2016-12-10] MEDS: FAMOTIDINE 20 MG TAB PO SCH (08:05)
[2016-12-10] MEDS: CEFUROXIME 250 MG TAB PO SCH (08:05)
[2016-12-10] MEDS: amLODIPine 10 MG TAB PO SCH (08:06)
[2016-12-10] MEDS: HYDROcodone/APAP 7.5-325MG 1 EACH TAB PO PRN (08:06)
[2016-12-10] MEDS: predniSONE 20 MG TAB PO SCH (08:06)
[2016-12-10] MEDS: levETIRAcetam 500 MG TAB PO SCH (08:06)
[2016-12-10] MEDS: HEPARIN SODIUM,PORCINE 5,000 UNIT/ML 1 ML VIAL SQ SCH (08:06)
[2016-12-10] MEDS: CHLORPHEN-HYDROcod 8-10mg/5ml 5 ML ORAL.SYRG PO PRN (08:19)
[2016-12-10] MEDS: FORMOTEROL FUMARATE 20 MCG/2 ML NEBU INHALATION SCH (08:25)
[2016-12-10] MEDS: BUDESONIDE 0.5 MG/2 ML NEBU INHALATION SCH (08:25)
--- NOTE | 2016-12-10 09:52 | CONS ---
DATE OF CONSULTATION: 12/09/2016 PURPOSE OF CONSULTATION: Evaluate for anxiety disorder and difficulty with complying with medical care. HISTORY OF PRESENTING ILLNESS: The patient is a 56-year-old male. He was admitted due to progressive shortness of breath. He has diabetes, chronic pain, hypertension, GERD, history of myocardial infarction and history of CVA with basal ganglia hemorrhage. He also has been diagnosed with panic disorder. Patient was not able to provide much information regarding his general health issues as well as in any psychiatric issues. He did note having panic attack 2 weeks ago. He takes Xanax. The most noteworthy issue in his general care is that he has had multiple admissions to this facility and apparently others. It is noteworthy that he has not had an admission here since October 2015 and then this year he had 1 admission in September, 3 in October, and this is his 3rd in November. He is vague about circumstances that led him to come into the hospital. Doctors have been concerned that he may not be following through with recommended treatment or keeping up with medications. There have been some notes that at times he has been homeless. The patient himself says that he takes his medications consistently and follows through with treatment to the best of his ability. It is noted that the patient is currently prescribed Xanax 0.5 mg every 8 hours p.r.n. He said that he has been prescribed Xanax at home. He does not identify any other psychotropic medications. He reports that he suffered a stroke in October of 2014. He said since that time "everything has gone downhill." He says that he has had anxiety and depression with some panic symptoms. He says he has poor motivation, no energy, loss of interest. He gets feelings of hopelessness. He was unclear as to whether he had been treated at any point for depression. He reports that recently leading up to his hospitalization he has been sleeping fair. He does not do much for outside activities. 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 After that he worked doing [employer] and traveled extensively. He reports that he has done no work in the last year. He had been living between one brother and another brother's homes, though says that there are plans in the works for him to move into his own residence in about 2 weeks. He was not able to give details about past issues of homelessness which had been noted in the medical record. MENTAL STATUS: Patient was lying in bed. He gave fair eye contact at best. Psychomotor activity is slow. Speech is monotone. He answered questions with brief responses. He said he wanted to hurry the interview because he wanted to sleep, that was at about 12 noon. He spoke in a monotone voice. He had a flat affect. His thoughts were clear, though he did not provide a lot of details, much of what he said was vague. His mood was dysphoric. He seemed moderately distressed. ASSESSMENT: 56-year-old male is diagnosed with major depression with panic disorder. This evaluation in regard to diagnosis and treatment recommendation is limited due to the patient not being able to provide much in the way of a clear history of psychiatric or other issues leading up to any of his multiple hospitalizations in 2017. At this point I will start the patient on Zyprexa 5 mg 3 times a day. I will discontinue Xanax. Xanax does have the risks for suppressing respiratory drive, in addition, Xanax is a risk for memory impairment, which may be a factor relating to his CVA. It will be important to get input from family members who can hopefully provide a better history of his situation and functioning over the last several months. Zyprexa is started to help reduce physiologic stress response, as it relates to anxiety and panic symptoms. Zyprexa may also improve mood function particularly in the short run. Consideration will be given for initiating an antidepressant. We will need further input from social work in regard to his housing situation. I will continue to follow.
--- NOTE | 2016-12-10 11:00 | P.PN ---
Subjective Principal diagnosis: Acute exacerbation of COPD Patient seen and examined. Patient states he is very tired today. He states he hasn't been able to get sleep. The patient states his breathing is "okay." He has no needs or complaints at this time. Objective - Vital Signs Vital signs: Vital Signs Temp 98.3 F 12/10/16 07:00 Pulse 104 H 12/10/16 08:52 Resp 16 12/10/16 08:00 BP 133/90 12/10/16 07:00 Pulse Ox 96 12/10/16 07:00 Intake & Output 12/09/16 12/10/16 12/10/16 18:59 06:59 18:59 Intake Total 720 Balance 720 Intake: Oral 720 Other: Voiding Method Toilet Toilet # Voids 1 3 - Exam Gen.: Patient is alert and oriented 3, no acute distress Cardiovascular: Regular rate and rhythm, S1/S2 Lungs: Diminished breath sounds bilaterally otherwise clear Abdomen: Soft nontender nondistended positive bowel sounds Extremities: No edema - Labs CBC & Chem 7: 12/08/16 07:41 12/08/16 07:41 Assessment and Plan Plan: Acute exacerbation of COPD Chronic musculoskeletal chest pain History of CVA Emphysema Diabetes mellitus type 2 with hyperglycemia Active tobacco abuse Chronic pain syndrome GERD Hypertension Hyponatremia O2 to maintain saturation greater than or equal to 88% Bronchodilators Pulmicort Steroid taper Perforomist Singulair Smoking cessation is highly recommended Psychiatric evaluation appreciated Incentive spirometry and pulmonary hygiene GI and DVT prophylaxis Outpatient pulmonary follow-up with PFT Patient may benefit from pulmonary rehab Okay to discharge from pulmonary standpoint
[2016-12-10] MEDS: FOLIC ACID 1 MG TAB PO SCH (12:11)
[2016-12-10 16:18] VITALS: PULSE 108
[2016-12-11] MEDS ORDERED: predniSONE 50 MG TAB PO SCH (09:00)
--- NOTE | 2016-12-12 17:19 | DS ---
DATE OF ADMISSION: 12/06/2016 DATE OF DISCHARGE: 12/10/2016 FINAL DIAGNOSES: 1. Acute severe chronic obstructive pulmonary disease exacerbation in an ex-smoker with acute tracheobronchitis causing acute hypoxic respiratory failure, present on admission. 2. Chronic arthritis of multiple joints. 3. Essential hypertension. 4. Gastroesophageal reflux disease. 5. Prior history of stroke and bleeding in the basal ganglia. 6. Hemorrhoids. Internal hemorrhoids. 7. Major depression with panic attacks. CONSULTATIONS: Dr. King. HOSPITAL COURSE: This ex-smoker presented with severe chronic obstructive pulmonary disease exacerbation and did require nebulized bronchodilators and steroids. Doing better at the time of discharge, tolerating a diet. On exam, lungs decreased breath sounds, decreased wheezing. Up and about. Care was discussed with Dr. King who okayed the patient for discharge. Also patient was seen by Dr. Orozco who diagnosed the patient with major depression. He adjusted his medications. DISCHARGE MEDICATIONS: 1. Norvasc 10 mg p.o. daily. 2. Keppra 500 mg p.o. daily. 3. Ventolin 2 puffs q.i.d. p.r.n. 4. Symbicort 160/4.5, 1 puff b.i.d. 5. Folic acid 1 mg p.o. daily. 6. Singular 10 mg p.o. q.h.s. 7. Thiamine 100 mg p.o. daily. 8. Multivitamin 1 tablet p.o. daily. 9. Pepcid 20 mg p.o. b.i.d. 10. Hollis 7.5 1 tablets q.6h p.r.n. 11. Zyprexa 5 mg p.o. t.i.d. 12. Mucinex 1200 mg p.o. daily. 13. Ceftin 500 mg p.o. b.i.d. for 6 doses. 14. DuoNeb q.i.d. 15. Prednisone taper. Follow up with Dr. Urszula Carrasco in three days. Follow-up with Dr. Radha Chester on 12/15/2016.
== END 2016-12-10 16:39 | disposition home or self-care (01) | DRG 190 ==
LOC: EC 20:40 → 4MS4W 12-06 00:07
PROVIDERS: ADMIT Hospitalist; ATTEND Hospitalist
DX: J44.1 Chronic obstructive pulmonary disease with (acute) exacerbation (principal); J96.01 Acute respiratory failure with hypoxia; E87.1 Hypo-osmolality and hyponatremia; J20.9 Acute bronchitis, unspecified; J44.0 Chronic obstructive pulmonary disease with (acute) lower respiratory infection; J45.909 Unspecified asthma, uncomplicated; F32.9 Major depressive disorder, single episode, unspecified; F41.0 Panic disorder [episodic paroxysmal anxiety]; K21.9 Gastro-esophageal reflux disease without esophagitis; I10 Essential (primary) hypertension; E11.65 Type 2 diabetes mellitus with hyperglycemia; I25.2 Old myocardial infarction; R07.89 Other chest pain; M25.562 Pain in left knee; R00.0 Tachycardia, unspecified; F41.9 Anxiety disorder, unspecified; M75.01 Adhesive capsulitis of right shoulder; K64.8 Other hemorrhoids; G89.4 Chronic pain syndrome; M15.9 Polyosteoarthritis, unspecified; F17.200 Nicotine dependence, unspecified, uncomplicated; Z80.51 Family history of malignant neoplasm of kidney; Z79.899 Other long term (current) drug therapy; Z82.5 Family history of asthma and other chronic lower respiratory diseases; Z71.6 Tobacco abuse counseling; Z80.0 Family history of malignant neoplasm of digestive organs; Z59.0 Homelessness; Z86.73 Personal history of transient ischemic attack (TIA), and cerebral infarction without residual deficits; Z88.6 Allergy status to analgesic agent; Z87.81 Personal history of (healed) traumatic fracture; Z87.01 Personal history of pneumonia (recurrent); Z79.891 Long term (current) use of opiate analgesic; Z79.51 Long term (current) use of inhaled steroids; Z80.8 Family history of malignant neoplasm of other organs or systems; Z91.19 Patient's noncompliance with other medical treatment and regimen
CPT/HCPCS: 36415; 71020; 80048; 80053; 81003; 83605; 83735; 83880; 84484; 85025; 87040; 87086; 87502; 93005; 94640; 94760; 96374; 99285

== ENCOUNTER 2016-12-11 21:24 | Inpatient (IN) | payer OTHER ==
[2016-12-11] MEDS ORDERED: methylPREDNISolone SOD SUCCI 125 MG/2 ML VIAL IV STA (21:49)
[2016-12-11] MEDS ORDERED: IPRATROPIUM-ALBUTEROL 3 ML NEB INHALATION STA (21:49)
--- NOTE | 2016-12-11 21:56 | ED ---
General Adult HPI - General Chief complaint: Nausea/Vomiting/Diarrhea Stated complaint: Diarrhea Time Seen by Provider: 12/11/16 21:30 Source: EMS, RN notes reviewed Mode of arrival: EMS Limitations: no limitations - History of Present Illness Initial comments: This is a 56-year-old male who presents emergency Department stating he had some nausea and vomiting earlier and had diarrhea. Patient states he is now having some shortness of breath which she always does because his COPD or any continues to smoke when he gets cigarettes. Patient states he drinks a little bit every day. Patient was just discharged from the hospital yesterday. Patient denies any chest pain. Patient denies any palpitations. Patient states he does have a mild headache. Patient denies any numbness or weakness. Patient denies any abdominal pain. Patient denies any injury or trauma - Related Data Home Medications Medication Instructions Recorded Confirmed amLODIPine [Norvasc] 10 mg PO DAILY 02/07/15 12/11/16 levETIRAcetam [Keppra] 500 mg PO QAM 02/07/15 12/11/16 Albuterol Sulfate [Ventolin HFA] 2 puff INHALATION RT-QID PRN 03/31/15 12/11/16 Multivitamins, Thera [Multivitamin 1 tab PO DAILY@1200 11/14/16 12/11/16 (formulary)] Famotidine [Pepcid] 20 mg PO BID 11/22/16 12/11/16 Cefuroxime Axetil [Ceftin] 500 mg PO BID 12/11/16 12/11/16 Ipratropium-Albuterol Nebulize 3 ml INHALATION RT-QID 12/11/16 12/11/16 [Duoneb 0.5 mg-3 mg/3 ml Soln] predniSONE See Taper PO DAILY 12/11/16 12/11/16 Previous Rx's Medication Instructions Recorded Budesonide-Formot 160-4.5 Mcg 2 puff INHALATION RT-BID #1 puff 07/08/15 [Symbicort 160-4.5 Mcg Inhaler] Folic Acid 1 mg PO DAILY@1200 #30 tab 11/13/16 Montelukast [Singulair] 10 mg PO HS #30 tab 11/13/16 Thiamine [Vitamin B-1] 100 mg PO DAILY #30 tablet 11/13/16 HYDROcodone/APAP 7.5-325MG [[place] 1 tab PO Q6HR PRN #20 tab 11/27/16 7.5-325] OLANZapine [ZyPREXA] 5 mg PO TID #60 tab 12/10/16 guaiFENesin [Mucinex] 1,200 mg PO Q12HR PRN #30 tablet.er 12/10/16 Allergies Allergy/AdvReac Type Severity Reaction Status Date / Time aspirin AdvReac Severe Bleeding Verified 12/11/16 21:26 NSAIDS (Non-Steroidal AdvReac Severe Can't take Verified 12/11/16 21:26 Anti-Inflamma due to Hx of stroke. Review of Systems ROS Statement: Those systems with pertinent positive or pertinent negative responses have been documented in the HPI. ROS Other: All systems not noted in ROS Statement are negative. Past Medical History Past Medical History: COPD, CVA/TIA, Hypertension, Myocardial Infarction ([place]), Pneumonia, Respiratory Disorder Additional Past Medical History / Comment(s): 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,PER PAST MEDICAL HX NOTED C2 fracture(FROM [facility]-NOT ABLE TO CONFIRM WITH PT), Osteoarthritis, DJD, "FROZEN SHOULDER SYNDROME (RT)" , [place]-PT STATED IN THE Last Myocardial Infarction Date:: unknown History of Any Multi-Drug Resistant Organisms: None Reported Past Surgical History: Orthopedic Surgery Additional Past Surgical History / Comment(s): neck fx, metal plate left hand middle finger Past Anesthesia/Blood Transfusion Reactions: No Reported Reaction Past Psychological History: Panic Disorder Additional Psychological History / Comment(s): 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 - Past Family History Mother Family Medical History: Cancer Additional Family Medical History / Comment(s): Pt believes his Mom of Kidney Ca, but not 100% sure. Father Family Medical History: Cancer, Respiratory Disorder Additional Family Medical History / Comment(s): Melonoma General Exam - General Exam Comments Initial Comments: GENERAL: Patient is well-developed and well-nourished. Patient is nontoxic and well- hydrated and is in mild distress. ENT: Neck is soft and supple. No significant lymphadenopathy is noted. Oropharynx is clear. Moist mucous membranes. Neck has full range of motion without eliciting any pain. EYES: The sclera were anicteric and conjunctiva were pink and moist. Extraocular movements were intact and pupils were equal round and reactive to light. Eyelids were unremarkable. PULMONARY: Unlabored respirations. Good breath sounds bilaterally. Patient has expiratory wheezing. CARDIOVASCULAR: There is a regular rate and rhythm without any murmurs gallops or rubs. ABDOMEN: Soft and nontender with normal bowel sounds. No palpable organomegaly was noted. There is no palpable pulsatile mass. SKIN: Skin is clear with no lesions or rashes and otherwise unremarkable. NEUROLOGIC: Patient is alert and oriented x3. Cranial nerves II through XII are grossly intact. Motor and sensory are also intact. Normal speech, volume and content. Symmetrical smile. MUSCULOSKELETAL: Normal extremities with adequate strength and full range of motion. No lower extremity swelling or edema. No calf tenderness. LYMPHATICS: No significant lymphadenopathy is noted PSYCHIATRIC: Normal psychiatric evaluation. Limitations: no limitations Course Vital Signs 12/11/16 12/11/16 12/11/16 21:29 22:11 22:22 Temperature 98.9 F Pulse Rate 110 H 104 H 100 Respiratory 20 Rate Blood Pressure 151/90 O2 Sat by Pulse 94 L Oximetry Medical Decision Making - Medical Decision Making EKG shows sinus tachycardia at 120 bpm MO interval is 112 QRS 78 QT interval 314 QTC is 443. Patient's EKG shows no ST segment elevation or depression or T wave abnormalities are noted Patient's chest x-ray shows no acute abnormality. Patient spiked a temperature at 1125. - Lab Data Result diagrams: 12/11/16 21:49 12/11/16 21:49 Lab Results 12/11/16 12/11/16 12/11/16 Range/Units 21:49 21:49 21:49 WBC 13.4 H (3.8-10.6) k/uL RBC 4.53 (4.30-5.90) m/uL Hgb 15.6 (13.0-17.5) gm/dL Hct 45.0 (39.0-53.0) % MCV 99.4 (80.0-100.0) fL MCH 34.5 (25.0-35.0) pg MCHC 34.7 (31.0-37.0) g/dL RDW 13.6 (11.5-15.5) % Plt Count 212 (150-450) k/uL Neutrophils % 88 % Lymphocytes % 7 % Monocytes % 3 % Eosinophils % 1 % Basophils % 0 % Neutrophils # 11.8 H (1.3-7.7) k/uL Lymphocytes # 1.0 (1.0-4.8) k/uL Monocytes # 0.4 (0-1.0) k/uL Eosinophils # 0.1 (0-0.7) k/uL Basophils # 0.1 (0-0.2) k/uL PT (9.0-12.0) sec INR (<1.1) APTT (22.0-30.0) sec Sodium 127 L (137-145) mmol/L Potassium 4.4 (3.5-5.1) mmol/L Chloride 91 L (98-107) mmol/L Carbon Dioxide 30 (22-30) mmol/L Anion Gap 6 mmol/L BUN 22 H (9-20) mg/dL Creatinine 0.58 L (0.66-1.25) mg/dL Est GFR (MDRD) Af Amer >60 (>60 ml/min/1.73 sqM) Est GFR (MDRD) Non-Af >60 (>60 ml/min/1.73 sqM) Glucose 75 (74-99) mg/dL Calcium 9.2 (8.4-10.2) mg/dL Magnesium 2.0 (1.6-2.3) mg/dL Total Bilirubin 1.4 H (0.2-1.3) mg/dL AST 31 (17-59) U/L ALT 81 H (21-72) U/L Alkaline Phosphatase 59 (38-126) U/L Total Creatine Kinase 111 (55-170) U/L CK-MB (CK-2) 2.6 H* (0.0-2.4) ng/mL CK-MB (CK-2) Rel Index 2.3 Troponin I <0.012 (0.000-0.034) ng/mL NT-Pro-B Natriuret Pep pg/mL Total Protein 6.5 (6.3-8.2) g/dL Albumin 3.8 (3.5-5.0) g/dL 12/11/16 12/11/16 Range/Units 21:49 21:49 WBC (3.8-10.6) k/uL RBC (4.30-5.90) m/uL Hgb (13.0-17.5) gm/dL Hct (39.0-53.0) % MCV (80.0-100.0) fL MCH (25.0-35.0) pg MCHC (31.0-37.0) g/dL RDW (11.5-15.5) % Plt Count (150-450) k/uL Neutrophils % % Lymphocytes % % Monocytes % % Eosinophils % % Basophils % % Neutrophils # (1.3-7.7) k/uL Lymphocytes # (1.0-4.8) k/uL Monocytes # (0-1.0) k/uL Eosinophils # (0-0.7) k/uL Basophils # (0-0.2) k/uL PT 9.8 (9.0-12.0) sec INR 1.0 (<1.1) APTT 21.8 L (22.0-30.0) sec Sodium (137-145) mmol/L Potassium (3.5-5.1) mmol/L Chloride (98-107) mmol/L Carbon Dioxide (22-30) mmol/L Anion Gap mmol/L BUN (9-20) mg/dL Creatinine (0.66-1.25) mg/dL Est GFR (MDRD) Af Amer (>60 ml/min/1.73 sqM) Est GFR (MDRD) Non-Af (>60 ml/min/1.73 sqM) Glucose (74-99) mg/dL Calcium (8.4-10.2) mg/dL Magnesium (1.6-2.3) mg/dL Total Bilirubin (0.2-1.3) mg/dL AST (17-59) U/L ALT (21-72) U/L Alkaline Phosphatase (38-126) U/L Total Creatine Kinase (55-170) U/L CK-MB (CK-2) (0.0-2.4) ng/mL CK-MB (CK-2) Rel Index Troponin I (0.000-0.034) ng/mL NT-Pro-B Natriuret Pep 233 pg/mL Total Protein (6.3-8.2) g/dL Albumin (3.5-5.0) g/dL Disposition Clinical Impression: Bronchitis, COPD with acute exacerbation, Hyponatremia Disposition: ADMITTED IP TO THIS HOSP Time of Disposition: 23:29
[2016-12-11 22:15] LABS: Basophils # (A) 0.1 k/uL (0-0.2); Basophils % (A) 0 %; CH 34.6; CHCM 34.9; Eosinophils # (A) 0.1 k/uL (0-0.7); Eosinophils % (A) 1 %; HDW 2.07; HGB 15.6 gm/dL (13.0-17.5); Luc # (Auto) 0.13; Luc % (Auto) 1; Lymphocytes % (A) 7 %; MCH 34.5 pg (25.0-35.0); MCHC 34.7 g/dL (31.0-37.0); MCV 99.4 fL (80.0-100.0); Mean Platelet Volume 6.2; Monocytes # (A) 0.4 k/uL (0-1.0); Monocytes % (A) 3 %; Neutrophils # (A) 11.8 k/uL (1.3-7.7); Neutrophils % (A) 88 %; RBC 4.53 m/uL (4.30-5.90); RDW 13.6 % (11.5-15.5); WBC 13.4 k/uL (3.8-10.6); WBC (Perox) 13.49
[2016-12-11 22:31] LABS: ALT 81 U/L (21-72); AST 31 U/L (17-59); Alkaline Phosphatase 59 U/L (38-126); Anion Gap 6 mmol/L; Blood Urea Nitrogen 22 mg/dL (9-20); Calcium 9.2 mg/dL (8.4-10.2); Carbon Dioxide 30 mmol/L (22-30); Chloride 91 mmol/L (98-107); Glucose 75 mg/dL (74-99); Non-African American GFR(MDRD) >60 (>60 ml/min/1.73 sqM); Potassium 4.4 mmol/L (3.5-5.1); Sodium 127 mmol/L (137-145); Total Bilirubin 1.4 mg/dL (0.2-1.3); Total Protein 6.5 g/dL (6.3-8.2)
[2016-12-11 22:39] LABS: Creatine Kinase 111 U/L (55-170)
[2016-12-11 22:50] LABS: Prothrombin Time 9.8 sec (9.0-12.0)
[2016-12-11 22:52] LABS: Troponin I <0.012 ng/mL (0.000-0.034)
[2016-12-11 22:54] LABS: Creatine Kinase MB 2.6 ng/mL (0.0-2.4)
--- NOTE | 2016-12-11 22:54 | XR ---
EXAM: XR Chest, 2 Views. CLINICAL HISTORY: Reason: difficulty breathing TECHNIQUE: Frontal and lateral views of the chest. COMPARISON: . FINDINGS: Lungs: Pulmonary hyperexpansion suggesting emphysema. Right apical granulomas. No consolidation. Pleural spaces: Unremarkable. No pneumothorax. Heart: Unremarkable. No cardiomegaly. Mediastinum: Unremarkable. Bones: Mild vertebral endplate spurring. No acute fracture. IMPRESSION: Pulmonary hyperexpansion suggesting emphysema. No consolidation.
[2016-12-11 23:08] LABS: Partial Thromboplastin Time 21.8 sec (22.0-30.0)
[2016-12-11] MEDS ORDERED: ACETAMINOPHEN TAB 500 MG TAB PO STA (23:26)
[2016-12-11] MEDS ORDERED: LEVOFLOXACIN 750MG-D5W PMX 750 MG in DEXTROSE/WATER 1 150ML.BAG IVPB STA (23:26)
[2016-12-11] MEDS ORDERED: SODIUM CHLORIDE 0.9% 1,000 ML IV ONE (23:26)
[2016-12-12] MEDS: IPRATROPIUM-ALBUTEROL 3 ML NEB INHALATION PRN ×4 (03:36→21:19)
[2016-12-12] MEDS: SODIUM CHLORIDE 0.9% 1,000 ML IV SCH ×3 (05:31→21:43)
[2016-12-12 06:52] LABS: Glucose,Whole Blood 133 mg/dL (75-99)
[2016-12-12] MEDS: methylPREDNISolone SOD SUCCI 125 MG/2 ML VIAL IV SCH ×4 (07:06→23:21)
[2016-12-12 11:44] LABS: Glucose,Whole Blood 229 mg/dL (75-99)
[2016-12-12] MEDS: OLANZapine 5 MG TAB PO SCH ×3 (12:30→20:54)
[2016-12-12] MEDS: MULTIVITAMINS, THERA 1 EACH TAB PO SCH (12:30)
[2016-12-12] MEDS ORDERED: levETIRAcetam 500 MG TAB PO STA (15:14)
[2016-12-12] MEDS: guaiFENesin 600 MG TABLET.ER PO PRN (16:39)
[2016-12-12 17:13] LABS: Glucose,Whole Blood 212 mg/dL (75-99)
--- NOTE | 2016-12-12 17:13 | HP ---
DATE OF ADMISSION: 12/11/2016 The patient is a 56-year-old came in with complaints of shortness of breath which started yesterday. Patient says he only smoked one cigarette although it appears like patient does smoke quite a bit. Patient has multiple hospitalizations for COPD exacerbation. Patient apparently has some social issues including homelessness. We will get a social work consult to evaluate the home situation. Patient is complaining of cough with greenish sputum production. Chest x-ray did not show any pneumonic process. Patient does not use any oxygen at home. Patient apparently was discharged from the hospital the day before this hospitalization on Ceftin. Patient is presently on levofloxacin. It appears the patient main issue is homelessness rather than COPD itself, although patient is significantly short of breath without oxygen and the patient was started on systemic steroids, antibiotics. REVIEW OF SYSTEMS: CONSTITUTIONAL: No fever, no malaise, no fatigue. HEENT: No recent visual problems or hearing problems. Denied any sore throat. CARDIOVASCULAR: No chest pain, orthopnea, PND, no palpitations, no syncope. PULMONARY: As described in HPI. GASTROINTESTINAL: No diarrhea, no nausea, no vomiting, no abdominal pain. Normoactive bowel sounds. NEUROLOGICAL: No headaches, no weakness, no numbness. HEMATOLOGICAL: Denies any bleeding or petechiae. GENITOURINARY: Denies any burning micturition, frequency, or urgency. MUSCULOSKELETAL/RHEUMATOLOGICAL: Denies any joint pain, swelling, or any muscle pain. ENDOCRINE: Denies any polyuria or polydipsia. The rest of the 14 point review of systems is negative. Medications: 1. Amlodipine. 2. ( ). 3. Multivitamin. 4. Famotidine. 5. Ceftin. 6. Albuterol. 7. Renal dose of prednisone. 8. Symbicort. 9. Montelukast. 10. Thiamine. 11. Olanzapine. 12. Guaifenesen. ALLERGIES: ASPIRIN AND NSAIDS. PAST MEDICAL HISTORY: COPD and appears to be severe, hypertension, coronary artery disease. PAST SURGICAL HISTORY: Orthopedic surgery. SOCIAL HISTORY: The patient states he quit smoking, did smoke one cigarette yesterday. Occasional alcohol use and occasional marijuana use. FAMILY HISTORY: Mother of kidney cancer. Father had melanoma. PHYSICAL EXAMINATION: Temperature 98.4, pulse of 92, respiratory rate of 18, blood pressure is 109/70. Saturating at 93% on room air. GENERAL: The patient is alert and oriented x3, not in any acute distress. Well developed, well nourished. HEENT: Pupils are round and equally reacting to light. EOMI. No scleral icterus. No conjunctival pallor. Normocephalic, atraumatic. No pharyngeal erythema. No thyromegaly. CARDIOVASCULAR: S1 and S2 present. No murmurs, rubs, or gallops. PULMONARY: Decreased air entry into bilateral lung brown expiratory wheezing was appreciated as well. ABDOMEN: Soft, nontender, nondistended, normoactive bowel sounds. No palpable organomegaly. MUSCULOSKELETAL: No joint swelling or deformity. EXTREMITIES: No cyanosis, clubbing, or pedal edema. NEUROLOGICAL: Gross neurological examination did not reveal any focal deficits. SKIN: No rashes. LABORATORY DATA: CBC, CMP are abnormal for elevated of WBC count 13,400. This elevated WBC count is probably related to systemic steroids she is receiving at home. Sodium of 137, bicarbonate of 91, lactic acid of 0.8. Chest x-ray as mentioned above. Patient is on 100 mL of normal saline which will be continued. ASSESSMENT AND PLAN: 1. Acute hypercapnic respiratory failure secondary to chronic obstructive pulmonary disease exacerbation. Patient is noncompliant with recommendations, extensive counseling regarding that was provided. Patient will be continued on systemic steroids, inhalational treatments and patient is also started on levofloxacin and consult pulmonary. 2. Social issues like homelessness for which I consulted social work. 3. Hyponatremia appears to be chronic and it was even present during his previous hospitalizations, probably hypovolemic in nature. Continue with IV fluids and continues to be low, we will further evaluate. 4. Diabetes mellitus type 2. 5. Gastroesophageal reflux disease. 6. Continued nicotine use, extensive counseling was provided. 7. Leukocytosis secondary to systemic steroids. PLAN: As mentioned above.
[2016-12-12 20:28] LABS: Glucose,Whole Blood 142 mg/dL (75-99)
[2016-12-12] MEDS: LEVOFLOXACIN 750 MG TAB PO SCH (20:54)
[2016-12-12] MEDS: FAMOTIDINE 20 MG TAB PO SCH (20:54)
[2016-12-12] MEDS: MONTELUKAST 10 MG TAB PO SCH (20:54)
[2016-12-12] MEDS: SYMBICORT 160-4.5 MCG INHALER INHALATION SCH (21:19)
[2016-12-12] MEDS: HYDROcodone/APAP 7.5-325MG 1 EACH TAB PO PRN (21:40)
[2016-12-12] MEDS ORDERED: LEVOFLOXACIN 750MG-D5W PMX 750 MG in DEXTROSE/WATER 1 150ML.BAG IVPB SCH (23:00)
[2016-12-13] MEDS: HYDROcodone/APAP 7.5-325MG 1 EACH TAB PO PRN ×4 (04:03→23:57)
[2016-12-13] MEDS: methylPREDNISolone SOD SUCCI 125 MG/2 ML VIAL IV SCH (06:17)
[2016-12-13] MEDS: SODIUM CHLORIDE 0.9% 1,000 ML IV SCH ×3 (06:26→21:25)
[2016-12-13 07:37] LABS: Glucose,Whole Blood 132 mg/dL (75-99)
[2016-12-13] MEDS: THIAMINE 100 MG TAB PO SCH (07:42)
[2016-12-13] MEDS: amLODIPine 10 MG TAB PO SCH (07:42)
[2016-12-13] MEDS: SYMBICORT 160-4.5 MCG INHALER INHALATION SCH ×2 (07:43→19:33)
[2016-12-13] MEDS: FAMOTIDINE 20 MG TAB PO SCH ×2 (07:43→21:22)
[2016-12-13] MEDS: levETIRAcetam 500 MG TAB PO SCH (07:43)
[2016-12-13] MEDS: OLANZapine 5 MG TAB PO SCH ×3 (07:43→21:21)
[2016-12-13 08:16] LABS: CH 34.7; CHCM 35.1; HCT 35.8 % (39.0-53.0); HDW 2.28; MCH 34.4 pg (25.0-35.0); MCHC 34.6 g/dL (31.0-37.0); MCV 99.3 fL (80.0-100.0); Mean Platelet Volume 6.3; RDW 13.2 % (11.5-15.5); WBC 11.3 k/uL (3.8-10.6)
[2016-12-13 08:22] LABS: Anion Gap 5 mmol/L; Blood Urea Nitrogen 14 mg/dL (9-20); Calcium 8.6 mg/dL (8.4-10.2); Carbon Dioxide 28 mmol/L (22-30); Chloride 102 mmol/L (98-107); Glucose 115 mg/dL (74-99); Non-African American GFR(MDRD) >60 (>60 ml/min/1.73 sqM); Potassium 3.8 mmol/L (3.5-5.1); Sodium 135 mmol/L (137-145)
[2016-12-13 08:27] LABS: HGB 12.4 gm/dL (13.0-17.5)
[2016-12-13] MEDS: INSULIN LISPRO (humaLOG) 300 UNIT/3 ML VIAL SQ SCH ×4 (08:52→21:21)
--- NOTE | 2016-12-13 09:49 | P.CNPUL ---
History of Present Illness Consult date: 12/13/16 Reason for consult: COPD Chief complaint: Headache History of present illness: This is a 56-year-old male who has had multiple readmissions over the past few months for COPD exacerbations. The patient's states he was admitted this time because of headache and he thought he was having another stroke. He states his headache was similar to when he had his prior stroke. He also states he has slurred speech and vision changes. He states he was not short of breath anymore than his baseline. He states it was not his COPD that brought him in this time. He does cough up phlegm "once in a while." He denies any fevers or chills. The patient states he did "messed up." He states he had a few cigarettes when he was discharged. He denies drinking alcohol daily. He also states he is not homeless and lives with his brother. He states that he will go to live with his brother for a few days after his discharge and then will go back to the boarding house. He also states he has the option to live with some of his friends but he doesn't want to do that because they are couple. The patient does state that he did receive a nebulizer at home and uses it. He states that part of the reason why he has to live with his brother. Review of Systems All systems: negative Past Medical History Past Medical History: COPD, CVA/TIA, Hypertension, Myocardial Infarction (ID), Pneumonia, Respiratory Disorder Additional Past Medical History / Comment(s): 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,PER PAST MEDICAL HX NOTED C2 fracture(FROM [facility]-NOT ABLE TO CONFIRM WITH PT-patient denies this), Osteoarthritis, DJD, "FROZEN SHOULDER SYNDROME (RT)", ID-PT STATED IN THE Last Myocardial Infarction Date:: unknown History of Any Multi-Drug Resistant Organisms: None Reported Past Surgical History: Orthopedic Surgery Additional Past Surgical History / Comment(s): neck fx, metal plate left hand middle finger Past Anesthesia/Blood Transfusion Reactions: No Reported Reaction Past Psychological History: Panic Disorder Additional Psychological History / Comment(s): 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 - Past Family History Mother Family Medical History: Cancer Additional Family Medical History / Comment(s): Pt believes his Mom of Kidney Ca, but not 100% sure. Father Family Medical History: Cancer, Respiratory Disorder Additional Family Medical History / Comment(s): Melonoma Medications and Allergies Home Medications Medication Instructions Recorded Confirmed Type amLODIPine [Norvasc] 10 mg PO DAILY 02/07/15 12/11/16 History levETIRAcetam [Keppra] 500 mg PO QAM 02/07/15 12/11/16 History Albuterol Sulfate [Ventolin HFA] 2 puff INHALATION RT-QID PRN 03/31/15 12/11/16 History Multivitamins, Thera [Multivitamin 1 tab PO DAILY@1200 11/14/16 12/11/16 History (formulary)] Famotidine [Pepcid] 20 mg PO BID 11/22/16 12/11/16 History Cefuroxime Axetil [Ceftin] 500 mg PO BID 12/11/16 12/11/16 History Ipratropium-Albuterol Nebulize 3 ml INHALATION RT-QID 12/11/16 12/11/16 History [Duoneb 0.5 mg-3 mg/3 ml Soln] predniSONE See Taper PO DAILY 12/11/16 12/11/16 History Allergies Allergy/AdvReac Type Severity Reaction Status Date / Time aspirin AdvReac Severe Bleeding Verified 12/11/16 21:26 NSAIDS (Non-Steroidal AdvReac Severe Can't take Verified 12/11/16 21:26 Anti-Inflamma due to Hx of stroke. Physical Exam Osteopathic Statement: *. No significant issues noted on an osteopathic structural exam other than those noted in the History and Physical/Consult. Vitals: Vital Signs Temp Pulse Pulse Pulse Resp BP Pulse Ox 12/13/16 08:00 89 18 12/13/16 07:59 96 12/13/16 07:46 96 12/13/16 07:00 98.1 F 89 18 125/75 93 L 12/12/16 23:00 97.9 F 96 18 139/76 95 12/12/16 21:31 92 12/12/16 21:21 95 12/12/16 16:13 96 12/12/16 16:01 92 12/12/16 16:00 99 F 111 H 16 131/77 97 12/12/16 12:00 98.4 F 103 H 18 109/70 93 L 12/12/16 11:17 96 12/12/16 11:02 96 Intake and Output 12/12/16 12/13/16 12/13/16 22:59 06:59 14:59 Intake Total 1200 Output Total 550 Balance 1200 -550 Intake: IV 1200 Sodium Chloride 0.9% 1, 1200 000 ml @ 100 mls/hr IV . Q10H L[facility]AR Rx#:[id number] Output: Urine 550 Other: Voiding Method Toilet Toilet Toilet # Voids 0 # Bowel Movements 1 Weight 46.5 kg 46.5 kg Patient Weight 12/14/16 06:59 Weight 46.5 kg Gen.: Patient is alert and oriented 3, no acute distress Cardiovascular: Regular rate and rhythm, S1/S2 Lungs: Bilateral expiratory wheezing Abdomen: Soft nontender nondistended positive bowel sounds Extremities: No edema Results - Laboratory Findings CBC and BMP: 12/13/16 07:35 12/13/16 07:35 PT/INR, D-dimer PT 9.8 sec (9.0-12.0) 12/11/16 21:49 INR 1.0 (<1.1) 12/11/16 21:49 Abnormal lab findings: Abnormal Labs 12/12/16 12/12/16 12/12/16 06:50 11:42 16:40 WBC RBC Hgb Hct Sodium Creatinine Glucose POC Glucose (mg/dL) 133 H 229 H 212 H 12/12/16 12/13/16 12/13/16 20:24 07:25 07:35 WBC 11.3 H RBC 3.60 L Hgb 12.4 L D Hct 35.8 L Sodium Creatinine Glucose POC Glucose (mg/dL) 142 H 132 H 12/13/16 07:35 WBC RBC Hgb Hct Sodium 135 L Creatinine 0.45 L Glucose 115 H POC Glucose (mg/dL) - Diagnostic Findings Chest x-ray: report reviewed, image reviewed Assessment and Plan Plan: COPD, patient does not appear to be acutely exacerbated at this time. ALLERGIC asthma Cephalgia Blurred vision Possible tracheobronchitis Elevated IgE SIRS without clear source of sepsis, present on admission History of CVA Emphysema Diabetes mellitus type 2 with hyperglycemia Active tobacco abuse Chronic pain syndrome GERD Hypertension Hyponatremia Anemia O2 to maintain saturation greater than or equal to 88% Bronchodilators Symbicort Steroid taper Singulair Monitor Hgb Antibiotics: Levaquin Blood, urine cultures IVF hydration, monitor Na Smoking cessation is highly recommended in this is discussed at length with the patient Incentive spirometry and pulmonary hygiene Home O2 evaluation prior to discharge Patient may benefit from Xolair as an outpatient however he has not yet followed up in the office Outpatient pulmonary follow-up with PFT Patient may benefit from pulmonary rehab GI and DVT prophylaxis Thank you for this consultation we'll continue to follow along
[2016-12-13 11:15] LABS: Glucose,Whole Blood 213 mg/dL (75-99)
[2016-12-13] MEDS: IPRATROPIUM-ALBUTEROL 3 ML NEB INHALATION PRN ×3 (11:31→19:33)
[2016-12-13] MEDS: MULTIVITAMINS, THERA 1 EACH TAB PO SCH (11:32)
[2016-12-13] MEDS: guaiFENesin 600 MG TABLET.ER PO PRN (12:11)
--- NOTE | 2016-12-13 13:00 | PN ---
Patient is a 56-year-old, he was admitted with COPD exacerbation and hypovolemic hyponatremia, both of which are improving and patient is still short of breath and has some social issues as mentioned yesterday. other sales support worker evaluated the patient. REVIEW OF SYSTEMS: RESPIRATORY: Significant improvement compared to yesterday. CARDIOVASCULAR: No chest pain, no orthopnea, no PND, no palpitations. GASTROINTESTINAL: No diarrhea, nausea or vomiting. No abdominal pain. Normoactive bowel sounds. NEUROLOGIC: No headaches, no weakness, no numbness. Medications were reviewed. PHYSICAL EXAMINATION: Temperature 98.1, pulse of 94, respiratory rate of 18, blood pressure is 127/75, saturating at 93% on 2 L of O2 by nasal cannula. RESPIRATORY: Significant improvement compared to yesterday and patient's wheezing is almost gone and patient is saturating well at this point of time and patient has fairly good air entry into bilateral lung brown. GENERAL: The patient is alert and oriented x3, not in any acute distress. Well developed, well nourished. HEENT: Pupils are round and equally reacting to light. EOMI. No scleral icterus. No conjunctival pallor. Normocephalic, atraumatic. No pharyngeal erythema. No thyromegaly. CARDIOVASCULAR: S1 and S2 present. No murmurs, rubs, or gallops. ABDOMEN: Soft, nontender, nondistended, normoactive bowel sounds. No palpable organomegaly. MUSCULOSKELETAL: No joint swelling or deformity. EXTREMITIES: No cyanosis, clubbing, or pedal edema. NEUROLOGICAL: Gross neurological examination did not reveal any focal deficits. SKIN: No rashes. LABORATORY DATA: CBC and CMP are abnormal for elevated WBC count of 11,300, can be related to systemic steroids, actually better than yesterday. ASSESSMENT AND PLAN: 1. Acute hypercapnic respiratory failure secondary to chronic obstructive pulmonary disease exacerbation. Patient is highly noncompliant with recommendations. 2. Hypovolemic hyponatremia, improved with IV fluid. 3. Type 2 diabetes mellitus, uncontrolled blood sugars due to systemic steroids including gastroesophageal reflux disease. 4. Leukocytosis secondary to systemic steroids.
--- NOTE | 2016-12-13 13:36 | CDI ---
In responding to this query, please exercise your independent professional judgment. The [facility] Coding Staff and Clinical Documentation Specialists appreciate your assistance in clarifying documentation, maintaining compliance with coding guidelines, accurately documenting patients condition and capturing severity of illness. The fact that a question is asked does not imply that any particular answer is desired or expected. Communication forms are a method of clarifying documentation and are not made part of the Legal Health Record. Thank you in advance for your clarification. Last Revision, October 2015 Allyson Uribe [address] [place] [address] Documentation Clarification Form Date: 12/13/2016 1:11:00 PM From: Luh Lino RN, CCDS Admit Date: 12/11/2016 11:29:00 PM Patient Name: Junior Mallory Visit Number: [id number] Dr. Venus King Asthma is documented in the Pulmonary Consult. Patient history/risk factors: COPD, Allergic asthma Clinical Indicators: 12/13 Pulmonary: "COPD, patient does not appear to be acutely exacerbated at this time. ALLERGIC asthma possible tracheobronchitis. Elevated IgE CXR: Pulmonary hyperexpansion, suggest emphysema, No consolidation Vital Signs: Temp 98.9, HR 110, RR 20, B/P 151/90 Treatment: Medication: "O2 to maintain saturation greater than or equal to 88% , Bronchodilators, Symbicort Steroid taper Singulair Monitor Hgb Antibiotics : Levaquin Blood, urine cultures IVF hydration, monitor Na." Consults: Pulmonary In your professional opinion, can you please further specify the following, if known? With Acute Exacerbation Status asthmaticus Acute lower respiratory infection COPD (specify with or without exacerbation) Chronic obstructive bronchitis Other, please specify Unable to determine Severity Mild intermittent Mild persistent Moderate persistent Severe persistent Other, please specify ____ Unable to determine Form or Type Cough variant Childhood Exercise induced bronchospasm Extrinsic allergic Idiosyncratic Intrinsic nonallergic Late-onset Mixed Other, please specify Unable to determine Please document in your progress notes and discharge summary in order to capture severity of illness and risk of mortality. Include clinical findings that support your diagnosis. FYI: Press F11 to launch patient chart. Place X here if this finding has no clinical significance, is not applicable or if you are not able to provide any additional documentation. MTDD
[2016-12-13 13:47] VITALS: BMI 16.5
[2016-12-13] MEDS: methylPREDNISolone SOD SUCCI 40 MG/ML 1 ML VIAL IV SCH ×2 (16:13→23:57)
[2016-12-13] MEDS: HEPARIN SODIUM,PORCINE 5,000 UNIT/ML 1 ML VIAL SQ SCH ×2 (16:13→23:57)
[2016-12-13 17:05] LABS: Glucose,Whole Blood 140 mg/dL (75-99)
[2016-12-13 17:54] LABS: Appearance,Urine Clear (Clear); Bilirubin,Urine Negative (Negative); Glucose,Urine (UA) Trace (Negative); Ketones,Urine Negative (Negative); Leukocyte Esterase,Urine Negative (Negative); Nitrite,Urine Negative (Negative); PH, Urine 5.5 (5.0-8.0); Protein,Urine Negative (Negative); Specific Gravity,Urine 1.011 (1.001-1.035); UA Billing (MACRO vs. MICRO) CHEM; Urobilinogen,Urine <2.0 mg/dL (<2.0)
[2016-12-13 20:52] LABS: Glucose,Whole Blood 151 mg/dL (75-99)
[2016-12-13] MEDS: MONTELUKAST 10 MG TAB PO SCH (21:21)
[2016-12-13] MEDS: LEVOFLOXACIN 750 MG TAB PO SCH (21:22)
[2016-12-13 22:42] VITALS: RESP 20
[2016-12-14] MEDS: HYDROcodone/APAP 7.5-325MG 1 EACH TAB PO PRN ×2 (06:53→12:53)
[2016-12-14] MEDS: THIAMINE 100 MG TAB PO SCH (07:14)
[2016-12-14] MEDS: levETIRAcetam 500 MG TAB PO SCH (07:15)
[2016-12-14] MEDS: HEPARIN SODIUM,PORCINE 5,000 UNIT/ML 1 ML VIAL SQ SCH (07:15)
[2016-12-14] MEDS: OLANZapine 5 MG TAB PO SCH (07:15)
[2016-12-14] MEDS: amLODIPine 10 MG TAB PO SCH (07:15)
[2016-12-14] MEDS: methylPREDNISolone SOD SUCCI 40 MG/ML 1 ML VIAL IV SCH (07:15)
[2016-12-14] MEDS: FAMOTIDINE 20 MG TAB PO SCH (07:16)
[2016-12-14 07:40] LABS: Glucose,Whole Blood 118 mg/dL (75-99)
[2016-12-14 07:51] VITALS: BP 134/71; TEMP 97.5
[2016-12-14] MEDS: INSULIN LISPRO (humaLOG) 300 UNIT/3 ML VIAL SQ SCH ×2 (07:56→12:54)
[2016-12-14] MEDS: SYMBICORT 160-4.5 MCG INHALER INHALATION SCH (08:46)
[2016-12-14] MEDS: IPRATROPIUM-ALBUTEROL 3 ML NEB INHALATION PRN ×2 (08:46→12:05)
[2016-12-14 11:52] LABS: Glucose,Whole Blood 158 mg/dL (75-99)
[2016-12-14 12:24] VITALS: PULSE 94
[2016-12-14] MEDS: SODIUM CHLORIDE 0.9% 1,000 ML IV SCH (12:27)
[2016-12-14] MEDS: MULTIVITAMINS, THERA 1 EACH TAB PO SCH (12:28)
--- NOTE | 2016-12-14 16:32 | P.PN ---
Subjective Patient seen and examined. Patient states his breathing is doing pretty good today. He denies any chest pain. The patient is complaining of a headache. He states he is otherwise doing well. He has been ambulating in the room. Objective - Vital Signs Vital signs: Vital Signs Temp 97.5 F L 12/14/16 07:00 Pulse 94 12/14/16 12:15 Resp 20 12/14/16 08:00 BP 134/71 12/14/16 07:00 Pulse Ox 94 L 12/14/16 07:00 Intake & Output 12/13/16 12/14/16 12/14/16 18:59 06:59 18:59 Intake Total 3200 590 Output Total 1650 550 Balance 1550 590 -550 Weight 68.353 kg 50 kg 65 kg Intake: IV 800 Sodium Chloride 0.9% 1, 800 000 ml @ 100 mls/hr IV . Q10H [facility] Rx#:[id number] Oral 2400 590 Output: Urine 1650 550 Other: Voiding Method Toilet Toilet Toilet # Voids 4 3 2 # Bowel Movements 1 1 - Exam Gen.: Patient is alert and oriented 3, no acute distress Cardiovascular: Regular rate and rhythm, S1/S2 Lungs: Diminished bilaterally, otherwise clear Abdomen: Soft nontender nondistended positive bowel sounds Extremities: No edema - Labs CBC & Chem 7: 12/13/16 07:35 12/13/16 07:35 Labs: Abnormal Lab Results - Last 24 Hours (Table) 12/13/16 12/13/16 12/13/16 Range/Units 16:36 16:56 20:50 POC Glucose (mg/dL) 140 H 151 H (75-99) mg/dL Urine Glucose (UA) Trace H (Negative) 12/14/16 12/14/16 Range/Units 07:34 11:48 POC Glucose (mg/dL) 118 H 158 H (75-99) mg/dL Urine Glucose (UA) (Negative) Microbiology - Last 24 Hours (Table) 12/13/16 16:36 Urine Culture - Preliminary Urine,Voided Assessment and Plan Plan: COPD, patient does not appear to be acutely exacerbated at this time. ALLERGIC asthma, not acutely exacerbated Cephalgia Blurred vision Possible tracheobronchitis Elevated IgE SIRS without clear source of sepsis, present on admission History of CVA Emphysema Diabetes mellitus type 2 with hyperglycemia Active tobacco abuse Chronic pain syndrome GERD Hypertension Hyponatremia Anemia O2 to maintain saturation greater than or equal to 88% Bronchodilators Symbicort Steroid taper Singulair Monitor Hgb Antibiotics: Levaquin Blood, urine cultures IVF hydration, monitor Na Smoking cessation is highly recommended in this is discussed at length with the patient Incentive spirometry and pulmonary hygiene Home O2 evaluation prior to discharge Patient may benefit from Xolair as an outpatient however he has not yet followed up in the office Outpatient pulmonary follow-up with PFT Patient may benefit from pulmonary rehab GI and DVT prophylaxis
--- NOTE | 2016-12-15 08:59 | DS ---
DATE OF ADMISSION: 12/11/2016 DATE OF DISCHARGE: 12/14/2016 Patient is a 56-year-old admitted with COPD exacerbation. Patient has hyponatremia. Both which improved and after the social work evaluation, patient will be discharged today. Patient has issues with his placement. Patient was seen and examined on the day of discharge. Vitals were stable. PHYSICAL EXAMINATION: GENERAL: The patient is alert and oriented x3, not in any acute distress. Well developed, well nourished. HEENT: Pupils are round and equally reacting to light. EOMI. No scleral icterus. No conjunctival pallor. Normocephalic, atraumatic. No pharyngeal erythema. No thyromegaly. CARDIOVASCULAR: S1 and S2 present. No murmurs, rubs, or gallops. PULMONARY: Minimally decreased air entry. Except for that patient does not have any wheezing at this point of time. ABDOMEN: Soft, nontender, nondistended, normoactive bowel sounds. No palpable organomegaly. MUSCULOSKELETAL: No joint swelling or deformity. EXTREMITIES: No cyanosis, clubbing, or pedal edema. NEUROLOGICAL: Gross neurological examination did not reveal any focal deficits. SKIN: No rashes. LABORATORY DATA: CBC and CMP are abnormal for elevated WBC count of 11,300, which is secondary to systemic steroids, which actually improved. FINAL DIAGNOSES: 1. Acute hypercapnic respiratory failure secondary to chronic obstructive pulmonary disease exacerbation. 2. Hypovolemic hyponatremia. 3. Type 2 diabetes mellitus. 4. Leukocytosis due to systemic steroids. Patient will be discharged today. Please refer to my depart summary for further details of discharge medications. Patient will follow with Dr. Urszula Carrasco on December 19, 2016 at 2:45. Activity as tolerated. Nicotine cessation counseling was provided. I spent greater than 35 minutes in total discharge process.
== END 2016-12-14 15:25 | disposition home or self-care (01) | DRG 190 ==
LOC: EC 21:24 → 6SEL 23:29 → 5MS5E 12-12 20:09
PROVIDERS: ADMIT Hospitalist; ATTEND Hospitalist
DX: J44.1 Chronic obstructive pulmonary disease with (acute) exacerbation (principal); J96.02 Acute respiratory failure with hypercapnia; E87.1 Hypo-osmolality and hyponatremia; E11.65 Type 2 diabetes mellitus with hyperglycemia; I10 Essential (primary) hypertension; F17.210 Nicotine dependence, cigarettes, uncomplicated; I25.2 Old myocardial infarction; K21.9 Gastro-esophageal reflux disease without esophagitis; T38.0X5A Adverse effect of glucocorticoids and synthetic analogues, initial encounter; Z59.0 Homelessness; D72.829 Elevated white blood cell count, unspecified; Z79.899 Other long term (current) drug therapy; Z86.73 Personal history of transient ischemic attack (TIA), and cerebral infarction without residual deficits; Z91.19 Patient's noncompliance with other medical treatment and regimen; Z88.4 Allergy status to anesthetic agent
CPT/HCPCS: 36415; 71020; 80048; 80053; 81003; 82550; 82553; 83605; 83735; 83880; 84484; 85025; 85027; 85610; 85730; 87040; 87086; 93005; 94640; 96365; 96375; 99285

== ENCOUNTER 2016-12-15 09:53 | Observation (INO) | payer OTHER ==
[2016-12-15] MEDS ORDERED: IPRATROPIUM-ALBUTEROL 3 ML NEB INHALATION STA ×2 (10:11→12:02)
[2016-12-15] MEDS ORDERED: methylPREDNISolone SOD SUCCI 125 MG/2 ML VIAL IV STA (10:11)
--- NOTE | 2016-12-15 10:28 | ED ---
General Adult HPI - General Chief complaint: Shortness of Breath Stated complaint: CLEMENCIA Time Seen by Provider: 12/15/16 10:00 Source: patient, RN notes reviewed Mode of arrival: EMS - History of Present Illness Initial comments: this is a 56-year-old male who presents emergency Department complaining of difficulty breathing. Patient's been here virtually every day this month either in the ER or upstairs on the floor. Patient comes in today she states she's been having difficulty breathing for one hour. Patient states he took a breathing treatment but it did not help. Patient states he still smokes. Patient always shows up with his closing the bag but states she's moving into a new place but I do believe he might be homeless. Patient denies any chest pain or palpitations. Patient denies any abdominal pain patient denies nausea vomiting diarrhea. Patient denies headache patient denies numbness weakness. - Related Data Home Medications Medication Instructions Recorded Confirmed amLODIPine [Norvasc] 10 mg PO DAILY 02/07/15 12/15/16 levETIRAcetam [Keppra] 500 mg PO QAM 02/07/15 12/15/16 Albuterol Sulfate [Ventolin HFA] 2 puff INHALATION RT-QID PRN 03/31/15 12/15/16 Multivitamins, Thera [Multivitamin 1 tab PO DAILY@1200 11/14/16 12/15/16 (formulary)] Famotidine [Pepcid] 20 mg PO BID 11/22/16 12/15/16 Ipratropium-Albuterol Nebulize 3 ml INHALATION RT-QID 12/11/16 12/15/16 [Duoneb 0.5 mg-3 mg/3 ml Soln] predniSONE See Taper PO DAILY 12/15/16 12/15/16 Previous Rx's Medication Instructions Recorded Budesonide-Formot 160-4.5 Mcg 2 puff INHALATION RT-BID #1 puff 07/08/15 [Symbicort 160-4.5 Mcg Inhaler] Folic Acid 1 mg PO DAILY@1200 #30 tab 11/13/16 Montelukast [Singulair] 10 mg PO HS #30 tab 11/13/16 Thiamine [Vitamin B-1] 100 mg PO DAILY #30 tablet 11/13/16 HYDROcodone/APAP 7.5-325MG [[place] 1 tab PO Q6HR PRN #20 tab 11/27/16 7.5-325] OLANZapine [ZyPREXA] 5 mg PO TID #60 tab 12/10/16 guaiFENesin [Mucinex] 1,200 mg PO Q12HR PRN #30 tablet.er 12/10/16 Levofloxacin [Levaquin] 500 mg PO DAILY #7 tab 12/14/16 Allergies Allergy/AdvReac Type Severity Reaction Status Date / Time aspirin AdvReac Severe Bleeding/Hx Verified 12/15/16 12:16 of Stroke NSAIDS (Non-Steroidal AdvReac Severe Hx of Verified 12/15/16 12:16 Anti-Inflamma Stroke Review of Systems ROS Statement: Those systems with pertinent positive or pertinent negative responses have been documented in the HPI. ROS Other: All systems not noted in ROS Statement are negative. 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,PER PAST MEDICAL HX NOTED C2 fracture(FROM [facility]-NOT ABLE TO CONFIRM WITH PT-patient denies this), Osteoarthritis, DJD, "FROZEN SHOULDER SYNDROME (RT)", [place]-PT STATED IN THE Last Myocardial Infarction Date:: unknown History of Any Multi-Drug Resistant Organisms: None Reported Past Surgical History: Orthopedic Surgery Additional Past Surgical History / Comment(s): neck fx, metal plate left hand middle finger Past Anesthesia/Blood Transfusion Reactions: No Reported Reaction Past Psychological History: Panic Disorder Additional Psychological History / Comment(s): 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 - Past Family History Mother Family Medical History: Cancer Additional Family Medical History / Comment(s): Pt believes his Mom of Kidney Ca, but not 100% sure. Father Family Medical History: Cancer, Respiratory Disorder Additional Family Medical History / Comment(s): Melonoma General Exam - General Exam Comments Initial Comments: GENERAL: Patient is well-developed and well-nourished. Patient is nontoxic and well- hydrated and is in mild distress. ENT: Neck is soft and supple. No significant lymphadenopathy is noted. Oropharynx is clear. Moist mucous membranes. Neck has full range of motion without eliciting any pain. EYES: The sclera were anicteric and conjunctiva were pink and moist. Extraocular movements were intact and pupils were equal round and reactive to light. Eyelids were unremarkable. PULMONARY: Patient has decreased breath sounds with some expiratory wheezing CARDIOVASCULAR: There is a regular rate and rhythm without any murmurs gallops or rubs. ABDOMEN: Soft and nontender with normal bowel sounds. No palpable organomegaly was noted. There is no palpable pulsatile mass. SKIN: Skin is clear with no lesions or rashes and otherwise unremarkable. NEUROLOGIC: Patient is alert and oriented x3. Cranial nerves II through XII are grossly intact. Motor and sensory are also intact. Normal speech, volume and content. Symmetrical smile. MUSCULOSKELETAL: Normal extremities with adequate strength and full range of motion. No lower extremity swelling or edema. No calf tenderness. LYMPHATICS: No significant lymphadenopathy is noted PSYCHIATRIC: Normal psychiatric evaluation. Normal interpersonal interactions appears functionally intact in deals appropriately with others. No signs of depression. No signs of anxiety. Course Vital Signs 12/15/16 12/15/16 12/15/16 09:57 10:30 10:40 Temperature 96.8 F L Pulse Rate 104 H 94 99 Respiratory 22 Rate Blood Pressure 181/102 O2 Sat by Pulse 98 Oximetry 12/15/16 12/15/16 12/15/16 11:37 12:19 12:57 Temperature 96.9 F L Pulse Rate 110 H 113 H Respiratory 18 Rate Blood Pressure 163/85 O2 Sat by Pulse 95 91 L Oximetry 12/15/16 13:02 Temperature Pulse Rate Respiratory Rate Blood Pressure O2 Sat by Pulse 90 L Oximetry Medical Decision Making - Medical Decision Making EKG shows sinus tachycardia at 108 bpm CA interval is 128 QRSs 80 QT interval 3: 30 QTC is 442. EKG shows no ST segment elevation or depression or T-wave abnormality she noted new. Patient got multiple breathing treatments steroids and he continued to wheeze and desat into the 80s. Patient was 86 on room air. Chest x-ray shows no acute abnormality. I spoke with Dr. Bailey agreed to admit the patient admitted the patient continue the albuterol steroids on the floor. - Lab Data Result diagrams: 12/15/16 10:45 12/15/16 10:45 Lab Results 12/15/16 12/15/16 12/15/16 Range/Units 10:45 10:45 10:45 WBC 16.5 H (3.8-10.6) k/uL RBC 4.30 (4.30-5.90) m/uL Hgb 14.7 (13.0-17.5) gm/dL Hct 42.6 (39.0-53.0) % MCV 99.1 (80.0-100.0) fL MCH 34.1 (25.0-35.0) pg MCHC 34.4 (31.0-37.0) g/dL RDW 13.7 (11.5-15.5) % Plt Count 279 (150-450) k/uL Neutrophils % 90 % Lymphocytes % 4 % Monocytes % 5 % Eosinophils % 0 % Basophils % 1 % Neutrophils # 14.7 H (1.3-7.7) k/uL Lymphocytes # 0.7 L (1.0-4.8) k/uL Monocytes # 0.8 (0-1.0) k/uL Eosinophils # 0.0 (0-0.7) k/uL Basophils # 0.1 (0-0.2) k/uL PT 10.0 (9.0-12.0) sec INR 1.0 (<1.1) APTT 19.9 L (22.0-30.0) sec Sodium 135 L (137-145) mmol/L Potassium 3.8 (3.5-5.1) mmol/L Chloride 97 L (98-107) mmol/L Carbon Dioxide 31 H (22-30) mmol/L Anion Gap 7 mmol/L BUN 17 (9-20) mg/dL Creatinine 0.42 L (0.66-1.25) mg/dL Est GFR (MDRD) Af Amer >60 (>60 ml/min/1.73 sqM) Est GFR (MDRD) Non-Af >60 (>60 ml/min/1.73 sqM) Glucose 73 L (74-99) mg/dL Calcium 9.4 (8.4-10.2) mg/dL Magnesium 1.9 (1.6-2.3) mg/dL Total Bilirubin 0.8 (0.2-1.3) mg/dL AST 29 (17-59) U/L ALT 68 (21-72) U/L Alkaline Phosphatase 56 (38-126) U/L Total Creatine Kinase (55-170) U/L CK-MB (CK-2) (0.0-2.4) ng/mL CK-MB (CK-2) Rel Index Troponin I (0.000-0.034) ng/mL NT-Pro-B Natriuret Pep pg/mL Total Protein 6.5 (6.3-8.2) g/dL Albumin 3.9 (3.5-5.0) g/dL 12/15/16 12/15/16 Range/Units 10:45 10:45 WBC (3.8-10.6) k/uL RBC (4.30-5.90) m/uL Hgb (13.0-17.5) gm/dL Hct (39.0-53.0) % MCV (80.0-100.0) fL MCH (25.0-35.0) pg MCHC (31.0-37.0) g/dL RDW (11.5-15.5) % Plt Count (150-450) k/uL Neutrophils % % Lymphocytes % % Monocytes % % Eosinophils % % Basophils % % Neutrophils # (1.3-7.7) k/uL Lymphocytes # (1.0-4.8) k/uL Monocytes # (0-1.0) k/uL Eosinophils # (0-0.7) k/uL Basophils # (0-0.2) k/uL PT (9.0-12.0) sec INR (<1.1) APTT (22.0-30.0) sec Sodium (137-145) mmol/L Potassium (3.5-5.1) mmol/L Chloride (98-107) mmol/L Carbon Dioxide (22-30) mmol/L Anion Gap mmol/L BUN (9-20) mg/dL Creatinine (0.66-1.25) mg/dL Est GFR (MDRD) Af Amer (>60 ml/min/1.73 sqM) Est GFR (MDRD) Non-Af (>60 ml/min/1.73 sqM) Glucose (74-99) mg/dL Calcium (8.4-10.2) mg/dL Magnesium (1.6-2.3) mg/dL Total Bilirubin (0.2-1.3) mg/dL AST (17-59) U/L ALT (21-72) U/L Alkaline Phosphatase (38-126) U/L Total Creatine Kinase 64 (55-170) U/L CK-MB (CK-2) 3.1 H* (0.0-2.4) ng/mL CK-MB (CK-2) Rel Index 4.8 Troponin I <0.012 (0.000-0.034) ng/mL NT-Pro-B Natriuret Pep 297 pg/mL Total Protein (6.3-8.2) g/dL Albumin (3.5-5.0) g/dL Critical Care Time Critical Care Time: Yes Total Critical Care Time: 35 Disposition Clinical Impression: COPD with acute exacerbation Disposition: ADMITTED IP TO THIS [facility] Time of Disposition: 13:36
[2016-12-15 11:13] LABS: Basophils # (A) 0.1 k/uL (0-0.2); Basophils % (A) 1 %; CH 34.8; CHCM 35.2; Eosinophils % (A) 0 %; HCT 42.6 % (39.0-53.0); HDW 2.33; HGB 14.7 gm/dL (13.0-17.5); Luc # (Auto) 0.09; Luc % (Auto) 1; Lymphocytes # (A) 0.7 k/uL (1.0-4.8); Lymphocytes % (A) 4 %; MCH 34.1 pg (25.0-35.0); MCHC 34.4 g/dL (31.0-37.0); MCV 99.1 fL (80.0-100.0); Mean Platelet Volume 6.3; Monocytes # (A) 0.8 k/uL (0-1.0); Monocytes % (A) 5 %; Neutrophils # (A) 14.7 k/uL (1.3-7.7); Neutrophils % (A) 90 %; RDW 13.7 % (11.5-15.5); WBC 16.5 k/uL (3.8-10.6); WBC (Perox) 16.89
[2016-12-15 11:16] LABS: ALT 68 U/L (21-72); AST 29 U/L (17-59); Alkaline Phosphatase 56 U/L (38-126); Anion Gap 7 mmol/L; Blood Urea Nitrogen 17 mg/dL (9-20); Calcium 9.4 mg/dL (8.4-10.2); Carbon Dioxide 31 mmol/L (22-30); Chloride 97 mmol/L (98-107); Glucose 73 mg/dL (74-99); Magnesium 1.9 mg/dL (1.6-2.3); Non-African American GFR(MDRD) >60 (>60 ml/min/1.73 sqM); Potassium 3.8 mmol/L (3.5-5.1); Sodium 135 mmol/L (137-145); Total Bilirubin 0.8 mg/dL (0.2-1.3); Total Protein 6.5 g/dL (6.3-8.2)
--- NOTE | 2016-12-15 11:16 | XR ---
EXAMINATION TYPE: XR chest 2V DATE OF EXAM: 12/15/2016 11:06 AM COMPARISON: Chest x-ray from 4 days ago. HISTORY: COPD with difficulty in breathing. TECHNIQUE: Frontal and lateral views of the chest are obtained. FINDINGS: There is chronic emphysematous change with suspected new mild central vascular congestion. There is no suspicious focal air space opacity, pleural effusion, or pneumothorax seen. The cardiac silhouette size is upper limits of normal. The osseous structures are intact. IMPRESSION: Chronic emphysematous change with suspected new mild central vascular congestion, correl ate for fluid overload state or CHF exacerbation.
[2016-12-15 11:26] LABS: Partial Thromboplastin Time 19.9 sec (22.0-30.0)
[2016-12-15 11:39] LABS: Creatine Kinase 64 U/L (55-170)
[2016-12-15 11:52] LABS: Troponin I <0.012 ng/mL (0.000-0.034)
[2016-12-15 11:55] LABS: Creatine Kinase MB 3.1 ng/mL (0.0-2.4)
[2016-12-15] MEDS ORDERED: ALBUTEROL INHALER 60 PUFF/8 GM INHALER INHALATION PRN (16:08)
[2016-12-15] MEDS ORDERED: guaiFENesin 600 MG TABLET.ER PO PRN (16:08)
[2016-12-15] MEDS: IPRATROPIUM-ALBUTEROL 3 ML NEB INHALATION PRN ×2 (16:26→20:37)
[2016-12-15] MEDS: methylPREDNISolone SOD SUCCI 125 MG/2 ML VIAL IV SCH ×2 (17:00→23:24)
[2016-12-15] MEDS: OLANZapine 5 MG TAB PO SCH (17:25)
[2016-12-15] MEDS: HYDROcodone/APAP 7.5-325MG 1 EACH TAB PO PRN (19:47)
[2016-12-15] MEDS: MONTELUKAST 10 MG TAB PO SCH (20:56)
[2016-12-15] MEDS: FAMOTIDINE 20 MG TAB PO SCH (20:56)
[2016-12-16] MEDS: HYDROcodone/APAP 7.5-325MG 1 EACH TAB PO PRN ×4 (02:01→20:04)
[2016-12-16] MEDS: methylPREDNISolone SOD SUCCI 125 MG/2 ML VIAL IV SCH ×4 (05:53→23:23)
[2016-12-16] MEDS: IPRATROPIUM-ALBUTEROL 3 ML NEB INHALATION PRN ×5 (06:02→19:23)
[2016-12-16 07:58] LABS: Basophils % (A) 0 %; CH 34.4; CHCM 34.2; Eosinophils % (A) 0 %; HCT 37.5 % (39.0-53.0); HDW 2.11; HGB 12.6 gm/dL (13.0-17.5); Luc # (Auto) 0.06; Luc % (Auto) 1; Lymphocytes # (A) 0.3 k/uL (1.0-4.8); Lymphocytes % (A) 3 %; MCH 33.9 pg (25.0-35.0); MCHC 33.6 g/dL (31.0-37.0); Macrocytosis Slight; Mean Platelet Volume 6.7; Monocytes # (A) 0.3 k/uL (0-1.0); Monocytes % (A) 3 %; Neutrophils # (A) 10.9 k/uL (1.3-7.7); Neutrophils % (A) 94 %; RBC 3.72 m/uL (4.30-5.90); WBC 11.6 k/uL (3.8-10.6); WBC (Perox) 12.15
[2016-12-16] MEDS: levETIRAcetam 500 MG TAB PO SCH (08:20)
[2016-12-16] MEDS: amLODIPine 10 MG TAB PO SCH (08:20)
[2016-12-16] MEDS: FAMOTIDINE 20 MG TAB PO SCH ×2 (08:20→19:48)
[2016-12-16] MEDS: OLANZapine 5 MG TAB PO SCH ×3 (08:20→20:04)
[2016-12-16 08:26] LABS: ALT 50 U/L (21-72); AST 19 U/L (17-59); Alkaline Phosphatase 47 U/L (38-126); Anion Gap 8 mmol/L; Blood Urea Nitrogen 17 mg/dL (9-20); Calcium 8.8 mg/dL (8.4-10.2); Carbon Dioxide 30 mmol/L (22-30); Chloride 96 mmol/L (98-107); Glucose 132 mg/dL (74-99); Non-African American GFR(MDRD) >60 (>60 ml/min/1.73 sqM); Sodium 134 mmol/L (137-145); Total Bilirubin 0.5 mg/dL (0.2-1.3); Total Protein 5.5 g/dL (6.3-8.2)
[2016-12-16] MEDS: MULTIVITAMINS, THERA 1 EACH TAB PO SCH (12:09)
[2016-12-16] MEDS: FOLIC ACID 1 MG TAB PO SCH (12:09)
--- NOTE | 2016-12-16 12:19 | HP ---
DATE OF ADMISSION: 12/15/2016 56-year-old white male with shortness of breath. States his pain has never been this bad before. He was admitted to the hospital for IV steroids and updraft treatments. He still smokes. He is unable to quit smoking. Occasional alcohol. MEDICATIONS INCLUDE: 1. Norvasc. 2. Keppra. 3. Ventolin. 4. Pepcid. 5. DuoNeb. 6. Prednisone. ALLERGIES: ASPIRIN AND NSAIDS. Fourteen-point review of systems negative except for as mentioned in HPI. PAST MEDICAL HISTORY: COPD, CVA, TIA, hypertension, myocardial infarction, intracranial bleed a couple years ago, pneumonia and respiratory failure. PAST MEDICAL HISTORY: CVA, basal ganglia hemorrhage, C2 fracture, osteoarthritis, degenerative disc disease, frozen shoulder on the right. Neck fracture. Metal plate in the left hand middle finger. 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 Former smoker; quit 6 months ago, 2 cans of beer a day and marijuana. FAMILY HISTORY: Mother with kidney cancer. Father cancer, respiratory disorder and melanoma. PHYSICAL EXAM: Vital signs are reviewed. CARDIOVASCULAR: S1, S2. LUNGS: Scattered wheeze. HEMATOLOGIC: Negative Homans. Pulses 99 to 104. Blood pressure 180s/100, respiratory rate 20 to 22, temp 96.8. CARDIOVASCULAR: S1, S2. LUNGS: Transmitted upper airway sounds, wheeze, expiratory x4. GI: Soft. HEMATOLOGIC: Negative Homans. PSYCHIATRIC: Fair mood and affect. NEUROLOGIC: Alert and oriented x3. ASSESSMENT: 1. Acute hypoxemic respiratory failure. 2. Hypoxemia. 3. Tachycardia. 4. Hypoxemia secondary to chronic obstructive pulmonary disease exacerbation, pulmonary consulted. Broad spectrum antibiotics, updraft treatments and steroids are given.
--- NOTE | 2016-12-16 14:43 | P.CNPUL ---
History of Present Illness Consult date: 12/16/16 Reason for consult: dyspnea, COPD Chief complaint: Shortness breath History of present illness: This is a 56-year-old gentleman who presented emergency department complaining of severe shortness of breath. The patient has had multiple readmissions and ER visits over the last 2 months at several hospitals. The patient states that he was riding his bike and became acutely short of breath. He states he was using his nebulizer at home. He states he did have cigarettes when he went home. He is asking for nicotine patch. He states he is "currently under a lot of stress." The patient's chest x-ray shows possibly some very mild pulmonary vascular congestion. He did have an echocardiogram done in September 2016 which showed an ejection fraction 55-60% and no evidence of pulmonary hypertension. 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-NOT ABLE TO CONFIRM WITH PT-patient denies this), Osteoarthritis, DJD, "FROZEN SHOULDER SYNDROME (RT)", [place]-PT STATED IN THE Last Myocardial Infarction Date:: unknown History of Any Multi-Drug Resistant Organisms: None Reported Past Surgical History: Orthopedic Surgery Additional Past Surgical History / Comment(s): neck fx, metal plate left hand middle finger Past Anesthesia/Blood Transfusion Reactions: No Reported Reaction Past Psychological History: Panic Disorder Additional Psychological History / Comment(s): 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 - Past Family History Mother Family Medical History: Cancer Additional Family Medical History / Comment(s): Pt believes his Mom of Kidney Ca, but not 100% sure. Father Family Medical History: Cancer, COPD, Respiratory Disorder Additional Family Medical History / Comment(s): Mikaa Medications and Allergies Home Medications Medication Instructions Recorded Confirmed Type amLODIPine [Norvasc] 10 mg PO DAILY 02/07/15 12/15/16 History levETIRAcetam [Keppra] 500 mg PO QAM 02/07/15 12/15/16 History Albuterol Sulfate [Ventolin HFA] 2 puff INHALATION RT-QID PRN 03/31/15 12/15/16 History Multivitamins, Thera [Multivitamin 1 tab PO DAILY@1200 11/14/16 12/15/16 History (formulary)] Famotidine [Pepcid] 20 mg PO BID 11/22/16 12/15/16 History Ipratropium-Albuterol Nebulize 3 ml INHALATION RT-QID 12/11/16 12/15/16 History [Duoneb 0.5 mg-3 mg/3 ml Soln] predniSONE See Taper PO DAILY 12/15/16 12/15/16 History Allergies Allergy/AdvReac Type Severity Reaction Status Date / Time aspirin AdvReac Severe Bleeding/Hx Verified 12/15/16 12:16 of Stroke NSAIDS (Non-Steroidal AdvReac Severe Hx of Verified 12/15/16 12:16 Anti-Inflamma Stroke Physical Exam Osteopathic Statement: *. No significant issues noted on an osteopathic structural exam other than those noted in the History and Physical/Consult. Vitals: Vital Signs Temp Pulse Pulse Resp BP Pulse Ox 12/16/16 12:17 100 12/16/16 12:05 92 12/16/16 12:00 22 12/16/16 11:52 97.1 F L 100 18 127/73 96 12/16/16 08:42 96 12/16/16 08:34 96 96 12/16/16 08:00 24 12/16/16 07:51 98.1 F 85 18 131/74 96 12/16/16 06:11 88 12/16/16 06:02 88 12/16/16 04:00 98.2 F 98 18 139/72 94 L 12/16/16 00:00 22 12/15/16 20:50 104 H 12/15/16 20:38 108 H 12/15/16 20:00 98.2 F 100 34 H 123/63 94 L 12/15/16 16:39 108 H 12/15/16 16:26 104 H 94 L 12/15/16 16:00 107 H 18 12/15/16 14:40 96.7 F L 107 H 18 132/69 97 Intake and Output 12/15/16 12/16/16 12/16/16 22:59 06:59 14:59 Intake Total 0252 944 0697 Balance 7534 971 2599 Intake: Oral 0377 200 9381 Other: # Voids 2 1 Gen.: Patient is alert and oriented 3, no acute distress Cardiovascular: Regular rate and rhythm, S1/S2 Lungs: Diminished breath sounds bilaterally with scattered expiratory wheezing Abdomen: Soft nontender nondistended positive bowel sounds Extremities: No edema Results - Laboratory Findings CBC and BMP: 12/16/16 06:36 12/16/16 06:36 PT/INR, D-dimer PT 10.0 sec (9.0-12.0) 12/15/16 10:45 INR 1.0 (<1.1) 12/15/16 10:45 Abnormal lab findings: Abnormal Labs 12/16/16 12/16/16 12/16/16 06:36 06:36 06:36 WBC 11.6 H RBC 3.72 L Hgb 12.6 L Hct 37.5 L MCV 101.0 H Neutrophils # 10.9 H Lymphocytes # 0.3 L Sodium 134 L Chloride 96 L Creatinine 0.50 L Glucose 132 H Total Protein 5.5 L Albumin 3.2 L TSH 0.137 L - Diagnostic Findings Chest x-ray: report reviewed, image reviewed Assessment and Plan Plan: Acute exacerbation of COPD ALLERGIC asthma Cephalgia Tracheobronchitis Elevated IgE SIRS without clear source of sepsis, leukocytosis possibly secondary to steroids History of CVA Emphysema Diabetes mellitus type 2 Active tobacco abuse Chronic pain syndrome GERD Hypertension Hyponatremia Anemia Medical noncompliance O2 to maintain saturation greater than or equal to 88% Pulmicort Perforomist Duo nebs Singulair Steroid taper Monitor sodium Smoking cessation is highly recommended in this is discussed at length with the patient Nicotine transdermal Incentive spirometry and pulmonary hygiene Patient may benefit from Xolair as an outpatient however is not yet followed up in the office Outpatient pulmonary follow-up with PFT Patient may benefit from pulmonary rehab Patient is encouraged to not ride his bike when he goes home as this seems to be a contributing factor for multiple readmissions as it appears to cause chest pain and SOB. Consult social work GI and DVT prophylaxis
[2016-12-16] MEDS: BUDESONIDE 0.5 MG/2 ML NEBU INHALATION SCH (19:23)
[2016-12-16] MEDS: FORMOTEROL FUMARATE 20 MCG/2 ML NEBU INHALATION SCH (19:23)
[2016-12-16] MEDS: MONTELUKAST 10 MG TAB PO SCH (19:48)
[2016-12-17] MEDS: IPRATROPIUM-ALBUTEROL 3 ML NEB INHALATION PRN ×4 (00:21→10:53)
[2016-12-17] MEDS: HYDROcodone/APAP 7.5-325MG 1 EACH TAB PO PRN ×5 (01:21→23:43)
[2016-12-17] MEDS: methylPREDNISolone SOD SUCCI 125 MG/2 ML VIAL IV SCH ×4 (05:58→23:45)
[2016-12-17] MEDS: BUDESONIDE 0.5 MG/2 ML NEBU INHALATION SCH ×2 (07:02→21:31)
[2016-12-17] MEDS: FORMOTEROL FUMARATE 20 MCG/2 ML NEBU INHALATION SCH ×2 (07:02→21:31)
[2016-12-17 07:59] LABS: Basophils % (A) 0 %; CH 34.4; Eosinophils % (A) 0 %; HCT 39.6 % (39.0-53.0); HDW 2.14; HGB 12.9 gm/dL (13.0-17.5); Luc # (Auto) 0.05; Luc % (Auto) 0; Lymphocytes # (A) 0.3 k/uL (1.0-4.8); Lymphocytes % (A) 2 %; MCH 33.2 pg (25.0-35.0); MCHC 32.7 g/dL (31.0-37.0); MCV 101.5 fL (80.0-100.0); Macrocytosis Slight; Mean Platelet Volume 6.2; Monocytes # (A) 0.4 k/uL (0-1.0); Monocytes % (A) 3 %; Neutrophils # (A) 14.4 k/uL (1.3-7.7); Neutrophils % (A) 95 %; RDW 14.1 % (11.5-15.5); WBC 15.3 k/uL (3.8-10.6); WBC (Perox) 15.92
[2016-12-17 08:18] LABS: ALT 59 U/L (21-72); AST 23 U/L (17-59); Alkaline Phosphatase 47 U/L (38-126); Anion Gap 8 mmol/L; Blood Urea Nitrogen 18 mg/dL (9-20); Calcium 9.2 mg/dL (8.4-10.2); Carbon Dioxide 29 mmol/L (22-30); Chloride 98 mmol/L (98-107); Glucose 145 mg/dL (74-99); Non-African American GFR(MDRD) >60 (>60 ml/min/1.73 sqM); Potassium 4.1 mmol/L (3.5-5.1); Sodium 135 mmol/L (137-145); Total Bilirubin 0.5 mg/dL (0.2-1.3); Total Protein 5.9 g/dL (6.3-8.2)
[2016-12-17] MEDS: FAMOTIDINE 20 MG TAB PO SCH ×2 (08:20→21:23)
[2016-12-17] MEDS: levETIRAcetam 500 MG TAB PO SCH (08:20)
[2016-12-17] MEDS: OLANZapine 5 MG TAB PO SCH ×3 (08:20→21:23)
[2016-12-17] MEDS: amLODIPine 10 MG TAB PO SCH (08:20)
[2016-12-17] MEDS: NICOTINE 14MG/24HR PATCH TRANSDERM SCH (08:21)
[2016-12-17] MEDS: FOLIC ACID 1 MG TAB PO SCH (11:18)
[2016-12-17] MEDS: MULTIVITAMINS, THERA 1 EACH TAB PO SCH (11:18)
--- NOTE | 2016-12-17 11:29 | P.PN ---
Subjective Principal diagnosis: Acute exacerbation of COPD Patient seen and examined. He is ambulating from the bathroom back to his bed. He is very short of breath. He states the breathing treatments do help. He has no other needs or complaints at this time. Objective - Vital Signs Vital signs: Vital Signs Temp 98 F 12/17/16 07:18 Pulse 106 H 12/17/16 11:06 Resp 20 12/17/16 08:00 BP 147/79 12/17/16 07:18 Pulse Ox 94 L 12/17/16 07:18 Intake & Output 12/16/16 12/17/16 12/17/16 18:59 06:59 18:59 Intake Total 1100 550 Balance 1100 550 Intake: Oral 1100 550 Other: Voiding Method Toilet Toilet # Voids 2 - Exam Gen.: Patient is alert and oriented 3, no acute distress Cardiovascular: Regular rate and rhythm, S1/S2 Lungs: Diminished breath sounds bilaterally with scattered expiratory wheezing Abdomen: Soft nontender nondistended positive bowel sounds Extremities: No edema - Labs CBC & Chem 7: 12/17/16 07:36 12/17/16 07:34 Labs: Abnormal Lab Results - Last 24 Hours (Table) 12/16/16 12/17/16 12/17/16 Range/Units 06:36 07:34 07:36 WBC 15.3 H (3.8-10.6) k/uL RBC 3.90 L (4.30-5.90) m/uL Hgb 12.9 L (13.0-17.5) gm/dL MCV 101.5 H (80.0-100.0) fL Neutrophils # 14.4 H (1.3-7.7) k/uL Lymphocytes # 0.3 L (1.0-4.8) k/uL Sodium 135 L (137-145) mmol/L Creatinine 0.47 L (0.66-1.25) mg/dL Glucose 145 H (74-99) mg/dL Total Protein 5.9 L (6.3-8.2) g/dL TSH 0.137 L (0.465-4.680) mIU/L Assessment and Plan Plan: Acute exacerbation of COPD ALLERGIC asthma Cephalgia Tracheobronchitis Elevated IgE SIRS without clear source of sepsis, leukocytosis possibly secondary to steroids History of CVA Emphysema Diabetes mellitus type 2 Active tobacco abuse Chronic pain syndrome GERD Hypertension Hyponatremia Anemia Medical noncompliance O2 to maintain saturation greater than or equal to 88% Pulmicort Perforomist Maggie vale scheduled Singulair Steroid taper Monitor sodium Smoking cessation is highly recommended in this is discussed at length with the patient Nicotine transdermal Incentive spirometry and pulmonary hygiene Patient may benefit from Xolair as an outpatient however is not yet followed up in the office Outpatient pulmonary follow-up with PFT Patient may benefit from pulmonary rehab Patient is encouraged to not ride his bike when he goes home as this seems to be a contributing factor for multiple readmissions as it appears to cause chest pain and SOB. Consult social work GI and DVT prophylaxis
[2016-12-17] MEDS: INSULIN LISPRO (humaLOG) 300 UNIT/3 ML VIAL SQ SCH ×3 (11:39→23:49)
[2016-12-17 11:40] LABS: Glucose,Whole Blood 177 mg/dL (75-99)
[2016-12-17] MEDS: IPRATROPIUM-ALBUTEROL 3 ML NEB INHALATION SCH ×3 (12:19→21:31)
[2016-12-17 18:27] LABS: Glucose,Whole Blood 170 mg/dL (75-99)
[2016-12-17] MEDS: MONTELUKAST 10 MG TAB PO SCH (21:23)
[2016-12-17 23:50] LABS: Glucose,Whole Blood 126 mg/dL (75-99)
[2016-12-18] MEDS: IPRATROPIUM-ALBUTEROL 3 ML NEB INHALATION SCH ×7 (01:03→23:26)
[2016-12-18] MEDS: methylPREDNISolone SOD SUCCI 125 MG/2 ML VIAL IV SCH ×2 (05:52→12:56)
[2016-12-18] MEDS: INSULIN LISPRO (humaLOG) 300 UNIT/3 ML VIAL SQ SCH ×5 (05:53→21:10)
[2016-12-18 05:55] LABS: Glucose,Whole Blood 146 mg/dL (75-99)
[2016-12-18] MEDS: HYDROcodone/APAP 7.5-325MG 1 EACH TAB PO PRN ×3 (05:56→19:51)
[2016-12-18] MEDS: levETIRAcetam 500 MG TAB PO SCH (07:32)
[2016-12-18] MEDS: NICOTINE 14MG/24HR PATCH TRANSDERM SCH (07:32)
[2016-12-18] MEDS: amLODIPine 10 MG TAB PO SCH (07:33)
[2016-12-18] MEDS: FOLIC ACID 1 MG TAB PO SCH (07:33)
[2016-12-18] MEDS: FAMOTIDINE 20 MG TAB PO SCH ×2 (07:33→19:51)
[2016-12-18] MEDS: OLANZapine 5 MG TAB PO SCH ×3 (07:33→21:10)
[2016-12-18 07:39] LABS: Glucose,Whole Blood 123 mg/dL (75-99)
--- NOTE | 2016-12-18 08:27 | PN ---
SUBJECTIVE: This is a white male with acute exacerbation of chronic obstructive pulmonary disease. Still having difficulty breathing. Remains on Pulmicort and Atrovent and albuterol updrafts. CARDIOVASCULAR: S1, S2. LUNGS: Scattered wheeze x4. HEMATOLOGIC: Negative Homans. PSYCHIATRIC: Fair mood and affect. ASSESSMENT: 1. Acute chronic obstructive pulmonary disease exacerbation. 2. Nicotine addiction. Continue with steroids tapering, albuterol and Atrovent and Pulmicort updrafts. Please see further orders.
[2016-12-18] MEDS: FORMOTEROL FUMARATE 20 MCG/2 ML NEBU INHALATION SCH ×2 (08:31→20:22)
[2016-12-18] MEDS: BUDESONIDE 0.5 MG/2 ML NEBU INHALATION SCH ×2 (08:32→20:22)
--- NOTE | 2016-12-18 09:59 | CT ---
EXAMINATION TYPE: CT brain wo con DATE OF EXAM: 12/18/2016 9:50 AM COMPARISON: Prior head CT dated 31 March 2015 HISTORY: lost vision in right eye CT DLP: 1121 mGycm Automated exposure control for dose reduction was used. FINDINGS: There is no acute intracranial hemorrhage, mass effect, or midline shift identified. The ventricles and sulci are stable. Periventricular white matter low-attenuation is again noted, including infarcts again noted within the basal ganglia on the left. Suspect some encephalomalacia within the basal jodi glia on the right, extreme and internal capsule also stable. The globes are intact and the visualize d sinuses are clear. IMPRESSION: No acute intracranial hemorrhage, mass effect, or midline shift is seen.
[2016-12-18 12:08] LABS: Glucose,Whole Blood 150 mg/dL (75-99)
[2016-12-18] MEDS: MULTIVITAMINS, THERA 1 EACH TAB PO SCH (12:56)
[2016-12-18] MEDS: methylPREDNISolone SOD SUCCI 40 MG/ML 1 ML VIAL IV SCH ×2 (15:46→23:56)
[2016-12-18] MEDS ORDERED: RX INFO: IV CONTRAST WAS GIVEN 1 EACH MISC MISCELLANE PRN (15:49)
--- NOTE | 2016-12-18 15:58 | P.CNNES ---
History of Present Illness Consult date: 12/18/16 Reason for Consult: Patient being evaluated for right eye vision loss. History of Present Illness: This patient is a 56-year-old right-handed white male who was admitted hospital on 12/15/2016 for treatment of acute exacerbation of COPD. He has a long- standing history of recurrent respiratory problems. He was being treated with some bronchodilators and nebulizers but apparently his symptoms worsen. He was brought into the emergency room and subsequent admitted to the hospital. Yesterday evening the patient complained to the nursing staff that he had difficulty in almost complete loss of vision in his right eye. Discontinue this morning and he was sent for a urgent computed tomography scan of the brain. CAT scan of the brain revealed no acute intracranial hemorrhage or acute stroke. Neurology was consulted for further evaluation. Patient states he continues to have the film like curtain over his right eye in visual field. This is been unchanged from yesterday. He has not had any recent ophthalmological evaluation. His symptoms of visual blurring is still unchanged in the right eye. He is unable to even finger count with the right eye at this time. As noted his CAT scan of the brain was reported negative for any acute stroke or hemorrhage. We are recommending a CT angiogram to be done for this patient for further evaluation. We will also obtain a ophthalmology consultation today for further assessment. Would recommend to rule out any possibility of central retinal artery occlusion in this patient. We will check his lipid profile as well. His overall prognosis at this time remains very guarded. Neurology is now been consulted for further evaluation and recommendations. Review of Systems Constitutional: Denies chills, Denies fever Eyes: right blurred vision, right decreased vision, right loss of vision, denies pain Ears, nose, mouth and throat: Denies headache, Denies sore throat Cardiovascular: Denies chest pain, Denies shortness of breath Respiratory: Denies cough Gastrointestinal: Denies abdominal pain, Denies diarrhea, Denies nausea, Denies vomiting Musculoskeletal: Denies myalgias Integumentary: Denies pruritus, Denies rash Neurological: Reports visual changes, Denies numbness, Denies weakness Psychiatric: Denies anxiety, Denies depression Endocrine: Denies fatigue, Denies weight change Past Medical History Past Medical History: COPD, CVA/TIA, Hypertension, Myocardial Infarction ([place]), Pneumonia, Respiratory Disorder Additional Past Medical History / Comment(s): 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,PER PAST MEDICAL HX NOTED C2 fracture(FROM -NOT ABLE TO CONFIRM WITH PT-patient denies this), Osteoarthritis, DJD, "FROZEN SHOULDER SYNDROME (RT)", [place]-PT STATED IN THE Last Myocardial Infarction Date:: unknown History of Any Multi-Drug Resistant Organisms: None Reported Past Surgical History: Orthopedic Surgery Additional Past Surgical History / Comment(s): neck fx, metal plate left hand middle finger Past Anesthesia/Blood Transfusion Reactions: No Reported Reaction Past Psychological History: Panic Disorder Additional Psychological History / Comment(s): 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 Smoking Status: Former smoker Past Alcohol Use History: Occasional Additional Past Alcohol Use History / Comment(s): STARTED SMOKING 1975 08 PPD- QUIT 6 MONTHS AGO, PT STATED HE DRINKS AN 2 BEER a day Past Drug Use History: Marijuana Additional Drug Use History / Comment(s): PAST MARIJUANA USE IN HIS TEEN YEARS. - Past Family History Mother Family Medical History: Cancer Additional Family Medical History / Comment(s): Pt believes his Mom of Kidney Ca, but not 100% sure. Father Family Medical History: Cancer, COPD, Respiratory Disorder Additional Family Medical History / Comment(s): Melonoma Medications and Allergies Home Medications Medication Instructions Recorded Confirmed Type amLODIPine [Norvasc] 10 mg PO DAILY 02/07/15 12/15/16 History levETIRAcetam [Keppra] 500 mg PO QAM 02/07/15 12/15/16 History Albuterol Sulfate [Ventolin HFA] 2 puff INHALATION RT-QID PRN 03/31/15 12/15/16 History Multivitamins, Thera [Multivitamin 1 tab PO DAILY@1200 11/14/16 12/15/16 History (formulary)] Famotidine [Pepcid] 20 mg PO BID 11/22/16 12/15/16 History Ipratropium-Albuterol Nebulize 3 ml INHALATION RT-QID 12/11/16 12/15/16 History [Duoneb 0.5 mg-3 mg/3 ml Soln] predniSONE See Taper PO DAILY 12/15/16 12/15/16 History Allergies Allergy/AdvReac Type Severity Reaction Status Date / Time aspirin AdvReac Severe Bleeding/Hx Verified 12/15/16 12:16 of Stroke NSAIDS (Non-Steroidal AdvReac Severe Hx of Verified 12/15/16 12:16 Anti-Inflamma Stroke Physical Examination - Vital Signs Vital Signs: Vital Signs Temp Pulse Pulse Resp BP Pulse Ox 12/18/16 12:35 100 12/18/16 12:22 100 12/18/16 08:59 104 H 12/18/16 08:45 104 H 12/18/16 08:32 100 12/18/16 07:38 97.7 F 64 16 147/79 93 L 12/18/16 04:59 100 12/18/16 04:47 100 12/18/16 01:14 104 H 12/18/16 01:07 97.9 F 110 H 16 157/79 93 L 12/18/16 01:04 96 12/17/16 22:01 100 12/17/16 21:41 100 12/17/16 21:40 100 12/17/16 21:31 98 12/17/16 19:37 98.1 F 98 17 141/68 95 12/17/16 19:00 17 12/17/16 15:25 102 H 12/17/16 15:11 102 H 12/17/16 15:00 97.1 F L 109 H 16 141/74 95 Intake and Output 12/17/16 12/18/16 12/18/16 22:59 06:59 14:59 Intake Total 240 Balance 240 Intake: Oral 240 Other: Voiding Method Toilet Toilet # Voids 1 1 2 - Constitutional General appearance: average body habitus, cooperative - EENT EENT: PERRL, mucous membranes moist - Respiratory Respiratory: lungs clear, normal breath sounds - Cardiovascular Cardiovascular: regular rate, normal S1, normal S2 Extremities: no peripheral edema bilaterally - Gastrointestinal Gastrointestinal: normoactive bowel sounds - Integumentary Integumentary: normal - Neurologic Cranial nerve examination: PERRL, EOMI, VFF (Patient has blurred vision involving the right eye.), V1/V2/V3 grossly intact, face symmetric, intact gag reflex, intact corneal reflex, normal palatal elevation Speech examination: intact Sensorimotor examination: intact Detailed motor examination: grossly full strength in all extremities Detailed sensory examination: intact Reflex and gait examination: intact - Musculoskeletal Musculoskeletal: no pain - Psychiatric Psychiatric: mood/affect appropriate, cooperative Results - Laboratory Findings CBC and BMP: 12/17/16 07:36 12/17/16 07:34 Abnormal Lab Findings: Abnormal Labs 12/16/16 12/16/16 12/16/16 06:36 06:36 06:36 WBC 11.6 H RBC 3.72 L Hgb 12.6 L Hct 37.5 L MCV 101.0 H Neutrophils # 10.9 H Lymphocytes # 0.3 L Sodium 134 L Chloride 96 L Creatinine 0.50 L Glucose 132 H POC Glucose (mg/dL) Total Protein 5.5 L Albumin 3.2 L TSH 0.137 L 12/17/16 12/17/16 12/17/16 07:34 07:36 11:37 WBC 15.3 H RBC 3.90 L Hgb 12.9 L Hct MCV 101.5 H Neutrophils # 14.4 H Lymphocytes # 0.3 L Sodium 135 L Chloride Creatinine 0.47 L Glucose 145 H POC Glucose (mg/dL) 177 H Total Protein 5.9 L Albumin TSH 12/17/16 12/17/16 12/18/16 18:14 23:45 05:53 WBC RBC Hgb Hct MCV Neutrophils # Lymphocytes # Sodium Chloride Creatinine Glucose POC Glucose (mg/dL) 170 H 126 H 146 H Total Protein Albumin TSH 12/18/16 12/18/16 07:23 11:54 WBC RBC Hgb Hct MCV Neutrophils # Lymphocytes # Sodium Chloride Creatinine Glucose POC Glucose (mg/dL) 123 H 150 H Total Protein Albumin TSH Assessment and Plan (1) Retinal vascular occlusion, right eye Status: Acute Code(s): H34.9 - UNSPECIFIED RETINAL VASCULAR OCCLUSION (2) TIA (transient ischemic attack) Status: Acute Code(s): G45.9 - TRANSIENT CEREBRAL ISCHEMIC ATTACK, UNSPECIFIED (3) Tracheobronchitis Status: Acute Code(s): J40 - BRONCHITIS, NOT SPECIFIED ACUTE OR CHRONIC (4) COPD with acute exacerbation Status: Acute Code(s): J44.1 - CHRONIC OBSTRUCTIVE PULMONARY DISEASE W (ACUTE ) EXACERBATION Plan: This patient is a 56-year-old male who apparently yesterday evening complained of visual changes involving his right eye. This morning he continued to have some difficulty in seeing out of his right eye. He describes it as a film in front of the visual field. He was sent for computed tomography scan of the brain this morning which came back negative for any evidence of acute stroke or hemorrhage. Neurological exam findings reveal obscuration in the left visual eye brown. We have recommended a CT angiographic to rule out any possibility of central retinal artery occlusion. We would also obtain a ophthalmology consultation today for further assessment. Depending on the test results further recommendations will be given. His overall prognosis at this time remains very guarded. Time with Patient: Greater than 30
--- NOTE | 2016-12-18 16:27 | P.PN ---
Subjective 56-year-old being seen on rounds this morning. Patient reports having an episode this morning of feeling like there was a curtain over his right eye. Patient stated it came on suddenly. Patient gives no other prior episode. Patient stated that vision felt blurry and involving the right eye. Patient did undergo CAT scan of the brain which was negative for any evidence of a stroke or hemorrhage. And neurology consultation has been requested Objective - Vital Signs Vital signs: Vital Signs Temp 96.9 F L 12/18/16 15:00 Pulse 121 H 12/18/16 15:00 Resp 22 12/18/16 15:00 BP 140/85 12/18/16 15:00 Pulse Ox 94 L 12/18/16 15:00 Intake & Output 12/17/16 12/18/16 12/18/16 18:59 06:59 18:59 Intake Total 240 Balance 240 Intake: Oral 240 Other: Voiding Method Toilet Toilet Toilet # Voids 1 2 - Exam Physical exam 56-year-old male sitting up in bed oriented 3. Does report having difficulty in seeing out of the right eye feels like there is film in the front of the visual field Lungs essentially clear adequate air movement Heart S1-S2 audible regular Abdomen soft nontender Extremities no edema noted - Labs CBC & Chem 7: 12/17/16 07:36 12/17/16 07:34 Labs: Abnormal Lab Results - Last 24 Hours (Table) 12/17/16 12/17/16 12/18/16 Range/Units 18:14 23:45 05:53 POC Glucose (mg/dL) 170 H 126 H 146 H (75-99) mg/dL 12/18/16 12/18/16 Range/Units 07:23 11:54 POC Glucose (mg/dL) 123 H 150 H (75-99) mg/dL Assessment and Plan Plan: Impression Present on admission acute exacerbation of COPD with acute tracheal bronchitis Sudden onset this admission episode of right vision loss involving right eye TIA not ruled out Retinal vascular occlusion, right eye Status: Acute Code(s): H34.9 - UNSPECIFIED RETINAL VASCULAR OCCLUSION ALLERGIC asthma Elevated IgE this admission Present on admission meet SIRS criteria without clear evidence of sepsis leukocytosis likely due to steroids History of a prior CVA Emphysema Chronic pain syndrome and narcotic dependency Active tobacco abuse greater than a 40 year history Type 2 diabetes Frequent readmissions for COPD Issues of noncompliance with medication and follow-up Hypertension Present on admission hypertension urgency Plan 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 Impression and the plan of care have been dictated as directed. Sherri Dang nurse practitioner acting as a scribe for dr tabares
[2016-12-18 17:38] LABS: Glucose,Whole Blood 140 mg/dL (75-99)
--- NOTE | 2016-12-18 17:48 | CT ---
EXAMINATION TYPE: CT angio head neck DATE OF EXAM: 12/18/2016 5:39 PM HISTORY: Patient complains of new onset right eye vision loss. COMPARISON: NONE CT DLP: 254.3 mGycm. Automated Exposure Control for Dose Reduction was Utilized. TECHNIQUE: CTA scan of the neck is performed with IV Contrast, patient injected with 65 mL of Omnipa que 350, axial images are obtained, coronal and sagittal reformatted images are reviewed. Three-D rec onstructed images are created on an independent workstation and reviewed. FINDINGS: Carotid/Vascular Structures: There is normal three-vessel origin from aortic arch. Right common carot id artery shows normal origin from right brachiocephalic artery. There is mild to moderate peripheral noncalcified plaque in the proximal right common carotid artery without significant stenosis. Remain pinky of right common carotid artery shows no significant plaque or stenosis. There is patent right ext ernal carotid artery without significant stenosis. No significant plaque is seen at right carotid bul b. Mild calcified plaque is seen in the proximal internal carotid artery without significant stenosis . Left common carotid artery shows moderate to severe noncalcified concentric plaque at proximal to mi d segment at level of left thyroid gland causing stenosis encroaching near 50%. There is mild calcifi ed plaque anteriorly in the mid left common carotid artery. No significant plaque or stenosis left co mmon carotid artery is seen. There is patent external carotid artery without significant stenosis or plaque. No significant plaque at left carotid bulb is present. There is mild calcified plaque in the proximal left internal carotid artery without significant stenosis. There is dominant left vertebral artery. Vertebral arteries are patent to the basilar junction. There is no significant stenosis or aneurysmal change in the posterior circulation. There is patent right- sided posterior to indicating artery. There is hypoplastic left-sided posterior to indicating artery. Images of the anterior circulation show poorly visualized anterior to indicating artery. No significa nt stenosis or aneurysmal change is seen. Other: Images of the brain show mild age-related cerebral atrophy and chronic small vessel ischemic change. Soft tissue density left external auditory canal likely reflects cerumen. Skin base 1 cm lesion right anterior cheek anterior to parotid gland on axial image 83 likely reflect s sebaceous cyst or other dermatologic benign lesion. There is mild to moderate emphysematous change in visualized lung apices. There is moderate multilevel spurring and disc space narrowing in the mid to lower cervical spine. Po sterior spur disc complex C6-C7 level is noted. IMPRESSION: 1. Unusual noncalcified plaque distribution most prominent in the proximal common carotid arteries bi laterally, left greater than right, but no hemodynamically significant stenosis is clearly seen in co mmon or internal carotid arteries bilaterally. 2. No evidence of aneurysmal change or significant focal stenosis at level of the [place].
[2016-12-18] MEDS ORDERED: acetaZOLAMIDE 250 MG TAB PO STA (18:39)
--- NOTE | 2016-12-18 18:39 | P.CON ---
Consult Note - . Consult date: 12/18/16 Assessment/Plan:: Assessment: 1) vision loss OD, probably related to acute IOP rise. Cornea is steamy, and at this time expectation of recovery of vision is limited. 2) POAG moderate advanced stage with IOP rise OS. Will need more studies to confirm. Plan: 1) initiate immediate IOP lowering with oral ANAMARIA and topical glaucoma drops for both eyes. Will being with brimonidine drops now, and 500 mg of acetazolamide. 2) will follow along while in house until IOP's are better controlled. Eye Problem Exam - General General appearance: in no apparent distress Head exam: normocephalic Eyelids: Normal Inspection: Bilateral Pupils: Regular, Round: Left (normal), Mydriasis: Right (irregular - oval) Sclera: Normal Inspection: Bilateral Cornea: Fluorescein Uptake: Bilateral (no staining, 2-3+ edema OD) Anterior chamber: Normal Inspection: Bilateral (deep no cells OU, iris OD is flaccid temporal. ) Posterior chamber: Deferred: Bilateral (dilated OU @ 1745), Normal Inspection: Bilateral (optic nerve normal with C:D 0.40 x 0.60. OD poor view hazy, optic nerve distinct, and white. Retina is grossly intact OD, normal OS. ), Hemorrhage : Bilateral (no hemorrhage noted either eye. ), Retinal Detachment: Bilateral ( normal), Cotton Wool Spots: Bilateral (none) Visual acuity (L) = 20/: 800 (CF @ 2') Visual acuity (R) = 20/: 25 With correction: Yes (OTC reader) IOP (L) in mmH (@1740) IOP (R) in mmH (@1740) IOP measured with: Tonopen Extraocular Movement: Abnormal (NPC @ 14 ") Eye Problem HPI - General Source: patient, RN notes reviewed Mode of arrival: EMS - History of Present Illness chief complaint: vision change (apparently started last evening, suddenly without any notice or associated neurological neurological changes. There were no scintillating changes, and the problem is limited to the right eye only, and encompasses the entire vision. Since 2200 last night there has no improvement or worsening of the vision. He denies pain or other changes in the eyes. There is a history of vision changes in 2014 when he had a stroke and he felt the vision to the right was limited in both eyes, but was more profoundly involved in the right eye. He denies any eye exams, previous history of treatment or surgical intervention. He does admit there may be a glaucoma problem in the family. ) Onset Description: sudden - Related Data Home Medications Medication Instructions Recorded Confirmed amLODIPine [Norvasc] 10 mg PO DAILY 02/07/15 12/15/16 levETIRAcetam [Keppra] 500 mg PO QAM 02/07/15 12/15/16 Albuterol Sulfate [Ventolin HFA] 2 puff INHALATION RT-QID PRN 03/31/15 12/15/16 Multivitamins, Thera [Multivitamin 1 tab PO DAILY@1200 11/14/16 12/15/16 (formulary)] Famotidine [Pepcid] 20 mg PO BID 11/22/16 12/15/16 Ipratropium-Albuterol Nebulize 3 ml INHALATION RT-QID 12/11/16 12/15/16 [Duoneb 0.5 mg-3 mg/3 ml Soln] predniSONE See Taper PO DAILY 12/15/16 12/15/16 Previous Rx's Medication Instructions Recorded Budesonide-Formot 160-4.5 Mcg 2 puff INHALATION RT-BID #1 puff 07/08/15 [Symbicort 160-4.5 Mcg Inhaler] Folic Acid 1 mg PO DAILY@1200 #30 tab 11/13/16 Montelukast [Singulair] 10 mg PO HS #30 tab 11/13/16 Thiamine [Vitamin B-1] 100 mg PO DAILY #30 tablet 11/13/16 HYDROcodone/APAP 7.5-325MG [Cash 1 tab PO Q6HR PRN #20 tab 11/27/16 7.5-325] OLANZapine [ZyPREXA] 5 mg PO TID #60 tab 12/10/16 guaiFENesin [Mucinex] 1,200 mg PO Q12HR PRN #30 tablet.er 12/10/16 Levofloxacin [Levaquin] 500 mg PO DAILY #7 tab 12/14/16 Allergies Allergy/AdvReac Type Severity Reaction Status Date / Time aspirin AdvReac Severe Bleeding/Hx Verified 12/15/16 12:16 of Stroke NSAIDS (Non-Steroidal AdvReac Severe Hx of Verified 12/15/16 12:16 Anti-Inflamma Stroke
[2016-12-18] MEDS: APRACLONIDINE 0.5% BOTH EYES SCH ×2 (18:59→21:10)
[2016-12-18] MEDS: MONTELUKAST 10 MG TAB PO SCH (19:51)
--- NOTE | 2016-12-18 20:51 | PN ---
DATE OF SERVICE: 12/18/2016 The patient is a 56-year-old male who is seen lying in bed sleeping, but easily arousable, is afebrile. Hemodynamically stable, in no acute distress. On physical exam, vital signs, temp is 97.7, heart rate is 64, respiratory rate 16, blood pressure is 147/79, oxygen saturation 93% on 2 liters O2 via nasal cannula. HEENT: Head is normocephalic, atraumatic. NECK: Supple. Trachea is midline. LUNGS: Fair air entry bilaterally, decreased at the bases. HEART: S1 and S2 are heard. Not tachycardic. ABDOMEN: Soft. Bowel sounds are heard. EXTREMITIES: With trace edema bilaterally. NEUROLOGIC: The patient sleeping, easily arousable and appropriate. LABS: No new labs to review. Imaging: CT of the brain shows no acute intracranial hemorrhage, mass effect or midline shift. IMPRESSION: 1. Acute exacerbation of chronic obstructive pulmonary disease. 2. Allergic asthma. 3. Cephalgia. 4. Tracheobronchitis. 5. Elevated IgE. 6. Systemic inflammatory response syndrome without clear source of sepsis. 7. Leukocytosis, probably, possibly secondary to steroids. 8. History of cerebrovascular accident emphysema. 9. Diabetes mellitus type 2. 10. Active tobacco abuse. 11. Chronic pain syndrome. 12. Gastroesophageal reflux disease. 13. Hypertension. 14. Hyponatremia. 15. Anemia. 16. Medical noncompliance. PLAN: 1. Continue current medications which have been reviewed with bronchodilators and aerosolized steroids. Continue oxygen to maintain saturations greater than or equal to 88%. Continue leukotriene inhibitors with IV steroids. We will start tapering them. 2. Continue to monitor labs. 3. Smoking cessation is highly recommended and has been discussed numerous times at length with the patient. Nicotine patch. 4. Incentive spirometry and pulmonary hygiene. 5. Continue GI and DVT prophylaxis. 6. Social work to follow for patient's homeless situations. 7. Patient may benefit from Xolair as an outpatient, would also need a PFT with pulmonary follow-up. The patient may also benefit from pulmonary rehab. 8. We will continue to follow the patient closely with you, making further changes as necessary. I performed a history and physical examination of this patient and discussed the same with the dictator. I agree with the dictator's note. Any additional findings/opinions, etc. will be noted.
[2016-12-18 21:16] LABS: Glucose,Whole Blood 131 mg/dL (75-99)
[2016-12-19] MEDS: HYDROcodone/APAP 7.5-325MG 1 EACH TAB PO PRN ×2 (02:31→09:22)
[2016-12-19] MEDS: IPRATROPIUM-ALBUTEROL 3 ML NEB INHALATION SCH ×6 (03:22→23:36)
[2016-12-19] MEDS: CYCLOPENTOLATE 1% OPHTH SOLN 2 ML BTL BOTH EYES SCH ×2 (06:45→06:46)
[2016-12-19] MEDS: PHENYLEPHRINE 10% OPHTH DROPS 5 ML BTL BOTH EYES SCH ×2 (06:46→06:47)
[2016-12-19] MEDS: INSULIN LISPRO (humaLOG) 300 UNIT/3 ML VIAL SQ SCH ×4 (07:38→21:21)
[2016-12-19 07:40] LABS: Glucose,Whole Blood 133 mg/dL (75-99)
[2016-12-19] MEDS: FORMOTEROL FUMARATE 20 MCG/2 ML NEBU INHALATION SCH ×2 (08:40→20:29)
[2016-12-19] MEDS: BUDESONIDE 0.5 MG/2 ML NEBU INHALATION SCH ×2 (08:40→20:29)
[2016-12-19] MEDS: levETIRAcetam 500 MG TAB PO SCH (09:15)
[2016-12-19] MEDS: methylPREDNISolone SOD SUCCI 40 MG/ML 1 ML VIAL IV SCH (09:15)
[2016-12-19] MEDS: APRACLONIDINE 0.5% BOTH EYES SCH ×3 (09:15→21:22)
[2016-12-19] MEDS: NICOTINE 14MG/24HR PATCH TRANSDERM SCH (09:15)
[2016-12-19] MEDS: amLODIPine 10 MG TAB PO SCH (09:15)
[2016-12-19] MEDS: OLANZapine 5 MG TAB PO SCH ×3 (09:15→21:22)
[2016-12-19] MEDS: FAMOTIDINE 20 MG TAB PO SCH ×2 (09:15→21:21)
[2016-12-19] MEDS ORDERED: ALPRAZolam 0.5 MG TAB PO STA (09:39)
--- NOTE | 2016-12-19 11:39 | P.PN ---
Subjective Principal diagnosis: Acute glaucoma OD>OS S: Patient noted on initial exchangre this morning that the vision in the right was "pretty messed up." After a few moments I reposed the question asking him to cover the left eye, and he thne admitted he could see, and not too badly. He denied difficulty with any of the eye drops or the oral medication last night. O: Va w OTC readers correction was 20/25 OD; 20/20 OS. IOP 43 OD 18 OS mm Hg @ 1010 hrs. Patient still dilated and pupil function unobtainable. Exam of the right was still poor due to the corneal edema, left fundus exam normal except for the C:D which appears glaucomatous. A: Open angle glaucoma with rapid change in IOP OD>OS. doing better this morning. The iris of the right eye appears flaccid to the temporal side, and is suggestive of ischemic damage. Will be better able to tell when returned to the office for the full examination. Expectation of full recovery of right eye is guarded at this time. P: will modify treatment slightly to improve corneal edema and attempt to lower IOP further especially OD. Will continue to follow while in house. Recommend complete eye examination in office when released. Objective - Vital Signs Vital signs: Vital Signs Temp 97.4 F L 12/19/16 07:00 Pulse 102 H 12/19/16 09:08 Resp 22 12/19/16 08:00 BP 142/86 12/19/16 07:00 Pulse Ox 95 12/19/16 08:40 Intake & Output 12/18/16 12/19/16 12/19/16 18:59 06:59 18:59 Intake Total 240 800 Balance 240 800 Weight 68.039 kg Intake: Oral 240 800 Other: Voiding Method Toilet Toilet Toilet # Voids 2 1 - Labs CBC & Chem 7: 12/17/16 07:36 12/17/16 07:34 Labs: Abnormal Lab Results - Last 24 Hours (Table) 12/18/16 12/18/16 12/18/16 Range/Units 11:54 17:34 21:08 POC Glucose (mg/dL) 150 H 140 H 131 H (75-99) mg/dL 12/19/16 Range/Units 07:26 POC Glucose (mg/dL) 133 H (75-99) mg/dL
[2016-12-19 12:00] LABS: Glucose,Whole Blood 132 mg/dL (75-99)
[2016-12-19] MEDS: DORZOLAMIDE HCL 2% DROPS 10 ML BTL RIGHT EYE SCH ×3 (12:26→21:22)
[2016-12-19] MEDS: SODIUM CHLORIDE 5% OPHTH DROPS 15 ML BTL RIGHT EYE SCH ×3 (12:26→23:33)
[2016-12-19] MEDS: MULTIVITAMINS, THERA 1 EACH TAB PO SCH (12:28)
[2016-12-19] MEDS: FOLIC ACID 1 MG TAB PO SCH (12:28)
--- NOTE | 2016-12-19 15:54 | P.PN ---
Subjective 56-year-old being seen and examined. Did note ophthalmology's recommendations patient was seen yesterday for right patient loss felt to be due to glaucoma. Additionally patient was seen by Dr. Eriberto Carr neurology recommendations reviewed noted and appreciated. Additionally the shelter case managerloss prevention/safety district manager worker did discuss with the patient the discharge plan. This visit to the hospital is been one of many in the past month and the patient comes in at least 4-5 times in the last 30 days. Patient continues to be vague when asked about his living situation. He states he lives with the brother and [place] admission process of moving into a boarding house. Patients being followed by pulmonology service pulmonary status is improving Objective - Vital Signs Vital signs: Vital Signs Temp 97.4 F L 12/19/16 07:00 Pulse 103 H 12/19/16 15:14 Resp 22 12/19/16 15:14 BP 142/86 12/19/16 07:00 Pulse Ox 95 12/19/16 08:40 Intake & Output 12/18/16 12/19/16 12/19/16 18:59 06:59 18:59 Intake Total 240 800 450 Balance 240 800 450 Weight 68.039 kg Intake: Oral 240 800 450 Other: Voiding Method Toilet Toilet Toilet # Voids 2 1 - Exam Physical exam 56-year-old male sitting up in bed oriented 3. States that the vision in the right eye is improving Lungs essentially clear adequate air movement Heart S1-S2 audible regular Abdomen soft nontender Extremities no edema noted - Labs CBC & Chem 7: 12/17/16 07:36 12/17/16 07:34 Labs: Abnormal Lab Results - Last 24 Hours (Table) 12/18/16 12/18/16 12/19/16 Range/Units 17:34 21:08 07:26 POC Glucose (mg/dL) 140 H 131 H 133 H (75-99) mg/dL 12/19/16 Range/Units 11:49 POC Glucose (mg/dL) 132 H (75-99) mg/dL Assessment and Plan Plan: Impression Present on admission acute exacerbation of COPD with acute tracheal bronchitis Sudden onset this admission episode of right vision loss involving right eye suspect due to acute glaucoma OD greater than OS Retinal vascular occlusion, right eye Status: Acute Code(s): H34.9 - UNSPECIFIED RETINAL VASCULAR OCCLUSION ALLERGIC asthma Elevated IgE this admission Present on admission meet SIRS criteria without clear evidence of sepsis leukocytosis likely due to steroids History of a prior CVA Emphysema Chronic pain syndrome and narcotic dependency Active tobacco abuse greater than a 40 year history Type 2 diabetes Frequent readmissions for COPD Issues of noncompliance with medication and follow-up Hypertension Present on admission hypertension urgency Plan [place] recommendations by ophthalmology gas plant worker to evaluate the home situation currently patient lives with a brother Smoking cessation information provided patient's been advised to stop smoking Continue current aerosol bronchodilators DVT and GI prophylaxis Further recommendations pending The above dictated assessment and findings were discussed with dr tabares . Impression and the plan of care have been dictated as directed. Sherri Dang nurse practitioner acting as a scribe for dr tabares
[2016-12-19 17:32] LABS: Glucose,Whole Blood 163 mg/dL (75-99)
--- NOTE | 2016-12-19 17:57 | PN ---
DATE OF SERVICE: 12/19/2016 HISTORY OF PRESENT ILLNESS: Patient is a 56-year-old male who initially came in with problems with increased difficulty with breathing. he has been in the hospital multiple times over the last few months. He was using nebulizer treatments at home and still was having considerable difficulty with breathing. He presented to the emergency department, had x-ray done that showed some mild pulmonary vascular congestion at that time. Patient is seen today. States that he had an EEG done. He has been having problems with his vision to his right eye. He is being followed by Neurology. He has chronic pain to the chest and lungs, he states. He still has a wet cough, mostly nonproductive. He continues with nicotine patch and continues with nebulizer treatments and IV steroids. Patient had an angiogram of the head and neck CT done yesterday that showed some unusual non-calcified plaque distribution, most prominent in the proximal common carotid arteries bilaterally with left greater than right, but no hemodynamically significant stenosis and no evidence of aneurysmal change or stenosis at the level of the [place]. Patient states that he does not feel well enough to be discharged home today. He was seen by Optometry, where they are saying he has open-angle glaucoma. He denies any nausea, vomiting or diarrhea at this time. He states that he wears oxygen off and on while in the hospital. He voices no other distress at this time. On physical examination, vital signs show temperature of 97.4, heart rate 102, respiratory rate 22, blood pressure 142/86, oxygen saturation on 2 L of 95%. Glucose done today was 132. Blood cultures have been negative. GENERAL: He is a 56-year-old male resting comfortably. Occasional wet cough. HEENT: Pupils are reactive, mucous membranes moist. NECK: Short, supple, thick. LUNGS: Sounds are slightly coarse, diminished. CARDIOVASCULAR: S1 and S2 heard; regular. ABDOMEN: Soft. Bowel sounds are heard. EXTREMITIES: Trace edema. NEUROLOGIC: He is awake, alert. IMPRESSION: 1. Acute exacerbation of chronic obstructive pulmonary disease. 2. Allergic asthma. 3. Cephalgia. 4. Tracheobronchitis. 5. Elevated IgE. 6. Systemic inflammatory response syndrome. 7. Leukocytosis, steroid-induced. 8. Diabetes mellitus, type 2. 9. Nicotine dependence. 10. Chronic pain. 11. Gastroesophageal reflux disease. 12. Hypertension. PLAN: Patient's medications have been reviewed. We will continue medications as ordered. Continue with nebulizer treatments and IV steroids. Will look at decreasing steroids again tomorrow. Continue with GI and DVT prophylaxis. Continue with oxygen to keep saturations 92% or better. Increase activity as tolerated. Await EEG results. Continue with smoking cessation. Patient will need to follow up with Pulmonary on discharge for further workup and evaluation with potential need for [facility] pulmonary rehab and will require PFT. [facility]
--- NOTE | 2016-12-19 18:52 | P.PN ---
Subjective This patient is a 56-year-old right-handed white male who was seen yesterday on neurology consultation for evaluation of acute right eye vision loss. Patient had symptoms of sudden vision loss involving his right eye. This raised a suspicion for possible stroke right central retinal artery occlusion. He was sent for a CTA angiogram of the head and neck yesterday. Final report indicated noncalcified plaque distribution in the proximal common carotid arteries bilaterally. Left was greater than right. No hemodynamically significant stenosis was seen in the common or internal carotid arteries bilaterally. No evidence of any aneurysm and the [place] of [place]. We reviewed the results of the CT angiogram of the head and neck today with the patient. We did recommend they urgent ophthalmology consultation for this patient yesterday. Patient was seen in consult by Dr. Yanez yesterday evening. He was found to have vision loss in the right eye felt to be secondary to acute intraocular pressure elevation from glaucoma. Patient was immediately started on topical glaucoma drops were both eyes. Carbonic anhydrase inhibitor was also started for him yesterday. He is currently on 500 mg of Diamox. Patient was reevaluated by ophthalmology today. Dr. Yanez notice some improvement with right eye open angle glaucoma which has responded to treatment yesterday. There is some improvement with his vision today. The patient himself has noted improvement with right eye vision today. He will follow-up with the warehouse selector soon after discharge for further evaluation. Patient is continuing on glaucoma eyedrops at this time. We will continue to monitor his condition closely. Expectation for full recovery of the right eye vision is guarded at this time. Patient continues to show some corneal edema in the right eye. Patient underwent routine EEG today which was reviewed. EEG is moderately slow with no evidence of any epileptiform discharges. Patient continues to have symptoms of COPD with some respiratory congestion. Pulmonary medicine is following the patient closely. We will continue close neurological follow-up of this patient during this admission. Recommend tight control of his blood pressure. His overall prognosis at this time remains guarded. We will continue close neurological follow-up of this patient during this admission. Objective - Vital Signs Vital signs: Vital Signs Temp 97.3 F L 12/19/16 15:00 Pulse 100 12/19/16 17:14 Resp 22 12/19/16 15:14 BP 150/75 12/19/16 15:00 Pulse Ox 93 L 12/19/16 15:00 Intake & Output 12/18/16 12/19/16 12/19/16 18:59 06:59 18:59 Intake Total 240 800 450 Balance 240 800 450 Weight 68.039 kg Intake: Oral 240 800 450 Other: Voiding Method Toilet Toilet Toilet # Voids 2 1 - Exam Physical examination: PHYSICAL EXAMINATION: Patient is resting comfortably in bed. VITAL SIGNS: Blood pressure is [150/75]. Heart rate is [95]. Respiration is [22] . Temperature is [97.3]. HEENT: Head is atraumatic, neck is supple, there were no carotid bruits. CHEST: Lungs are clear to auscultation and percussion. CARDIAC: S1, S2 normal rate and rhythm. There is no murmur. ABDOMEN: Soft and nontender. Bowel sounds are present. EXTREMITIES: There is no pedal edema. Peripheral pulses are present. Neurological examination: Patient's neurological examination is unchanged from yesterday. - Labs CBC & Chem 7: 12/17/16 07:36 12/17/16 07:34 Labs: Abnormal Lab Results - Last 24 Hours (Table) 12/18/16 12/19/16 12/19/16 Range/Units 21:08 07:26 11:49 POC Glucose (mg/dL) 131 H 133 H 132 H (75-99) mg/dL 12/19/16 Range/Units 17:23 POC Glucose (mg/dL) 163 H (75-99) mg/dL Assessment and Plan (1) Retinal vascular occlusion, right eye Status: Acute Code(s): H34.9 - UNSPECIFIED RETINAL VASCULAR OCCLUSION (2) TIA (transient ischemic attack) Status: Acute Code(s): G45.9 - TRANSIENT CEREBRAL ISCHEMIC ATTACK, UNSPECIFIED (3) Tracheobronchitis Status: Acute Code(s): J40 - BRONCHITIS, NOT SPECIFIED ACUTE OR CHRONIC (4) COPD with acute exacerbation Status: Acute Code(s): J44.1 - CHRONIC OBSTRUCTIVE PULMONARY DISEASE W (ACUTE ) EXACERBATION
[2016-12-19 20:40] LABS: Glucose,Whole Blood 152 mg/dL (75-99)
[2016-12-19] MEDS: MONTELUKAST 10 MG TAB PO SCH (21:22)
[2016-12-20] MEDS: IPRATROPIUM-ALBUTEROL 3 ML NEB INHALATION SCH ×3 (03:27→11:35)
[2016-12-20] MEDS: SODIUM CHLORIDE 5% OPHTH DROPS 15 ML BTL RIGHT EYE SCH ×4 (05:52→23:29)
[2016-12-20 07:13] LABS: Glucose,Whole Blood 138 mg/dL (75-99)
--- NOTE | 2016-12-20 07:42 | EEG ---
DATE OF SERVICE: 12/19/2016 INDICATIONS FOR EXAMINATION: This patient is a 56-year-old male being evaluated for acute right eye vision loss. Patient with possible TIA versus stroke. Patient has history of previous stroke. AGE: 56Y EEG FINDINGS: A routine 21-channel, awake digital EEG recording was accomplished utilizing the 10 - 20 international system with bipolar and referential montages. The background activity in the most alert resting state consists of a low to medium amplitude, fairly well-developed and well-sustained 6 Hz activity over the posterior head regions. This posterior rhythm attenuates to eye opening. There is a small amount of low amplitude 18 - 20 Hz beta activity seen maximally over the anterior head regions. Muscle and movement artifact was observed on a few occasions during the tracing. Hyperventilation was not performed. Photic stimulation at flash frequencies of 2 - 30 Hz produced a minimal occipital driving response. No epileptiform discharges were seen. IMPRESSION: This EEG is moderately abnormal in diffuse fashion due to slowing of the EEG background. The EEG failed to reveal any focal, lateralized or epileptiform abnormalities. Clinical correlation is recommended.
[2016-12-20] MEDS: FORMOTEROL FUMARATE 20 MCG/2 ML NEBU INHALATION SCH ×2 (08:20→19:31)
[2016-12-20] MEDS: BUDESONIDE 0.5 MG/2 ML NEBU INHALATION SCH ×2 (08:20→19:31)
[2016-12-20] MEDS: NICOTINE 14MG/24HR PATCH TRANSDERM SCH (09:37)
[2016-12-20] MEDS: INSULIN LISPRO (humaLOG) 300 UNIT/3 ML VIAL SQ SCH ×4 (09:37→22:14)
[2016-12-20] MEDS: predniSONE 20 MG TAB PO SCH (09:37)
[2016-12-20] MEDS: OLANZapine 5 MG TAB PO SCH ×3 (09:38→20:42)
[2016-12-20] MEDS: FAMOTIDINE 20 MG TAB PO SCH ×2 (09:38→20:42)
[2016-12-20] MEDS: HYDROcodone/APAP 7.5-325MG 1 EACH TAB PO PRN ×2 (09:38→17:44)
[2016-12-20] MEDS: levETIRAcetam 500 MG TAB PO SCH (09:38)
[2016-12-20] MEDS: amLODIPine 10 MG TAB PO SCH (09:38)
[2016-12-20] MEDS: DORZOLAMIDE HCL 2% DROPS 10 ML BTL RIGHT EYE SCH ×3 (09:39→20:41)
[2016-12-20] MEDS: APRACLONIDINE 0.5% BOTH EYES SCH ×3 (09:39→23:28)
--- NOTE | 2016-12-20 09:43 | P.PN ---
Subjective S: Patient feels viison this morning is poorer than before. Denies any eye pain. Drops for glaucoma are being applied as noted in OCT O: Va w/o correction HM @ 2' OD, 20/25 OS. IOP 44 mm Hg OD, 24 mm Hg OS Cornea: 3+ edema OD, clear OS AC: deep & quiet OU Iris: better movement noted today on right Lens: 2+ NS OD, 1+NS OS Vitreous: clear Posterior pole OD too hazy to remark on tissues Fundus OS: optic nerve S/F/P C:D 0.45, vasc normal, macula quiet A: 1) PRIMARY OPEN ANGLE GLAUCOMA, OU, patient is probably a steroid responder, as this does not appear to have necessarily just started, however the right eye seems particularly susceptible with recent IV treatments. At the moment this problem is not responding well to topical treatments and may , if not improving may require surgical intervention. Will modify treatment again, and see if there is and reasonable drop in IOP before more damage is incurred. One of the better treatments to use is acetazolamide which is problematic in light of pulmonary disease. But before stepping off into surgery, if it's possible would like the eye less inflamed and better controlled before tackling surgery which at this time would be more risky than necessary if IOP remains as elevated as it is. Will recommend input on continued use of acetazolamide before placing patient on temporary scheduled treatment with medication. Once IOP is controlled better, then can provide more definitive treatment to avoid these bouts. P: Please advise on continued use of acetazolamide for glaucoma control. will continue to follow. Objective - Vital Signs Vital signs: Vital Signs Temp 97.0 F L 12/20/16 07:00 Pulse 98 12/20/16 08:43 Resp 20 12/20/16 07:00 BP 142/81 12/20/16 07:00 Pulse Ox 96 12/20/16 08:22 Intake & Output 12/19/16 12/20/16 12/20/16 18:59 06:59 18:59 Intake Total 450 200 Balance 450 200 Intake: Oral 450 200 Other: Voiding Method Toilet # Voids 1 # Bowel Movements 0 - Labs CBC & Chem 7: 12/17/16 07:36 12/17/16 07:34 Labs: Abnormal Lab Results - Last 24 Hours (Table) 12/19/16 12/19/16 12/19/16 Range/Units 11:49 17:23 20:38 POC Glucose (mg/dL) 132 H 163 H 152 H (75-99) mg/dL 12/20/16 Range/Units 07:08 POC Glucose (mg/dL) 138 H (75-99) mg/dL
[2016-12-20] MEDS: acetaZOLAMIDE 250 MG TAB PO SCH (10:45)
[2016-12-20 11:17] LABS: Glucose,Whole Blood 133 mg/dL (75-99)
[2016-12-20] MEDS: MULTIVITAMINS, THERA 1 EACH TAB PO SCH (11:44)
[2016-12-20] MEDS: FOLIC ACID 1 MG TAB PO SCH (11:44)
--- NOTE | 2016-12-20 12:49 | P.PN ---
Subjective IOP ~1 HOUR AFTER oral acetazolamide 500 mg 36 mm Hg OD, 18 mm Hg OS @ 1230 hrs. A/P: Steroid responsive open angle glaucoma does respond to oral medication, and should respond to topical, if applied correctly. shovel logger even temporally, oral is probably not a good option due to complicating effects for COPD patient. I will modify the medication dosing schedule so that there is no application of both topical glaucoma drops being applied at the same, IF the IOP is more controlled then can forgo the systemic approach. I still believe that detention control will likely be surgical, but will need to be performed only after all steps appropriately accomplished. Objective - Vital Signs Vital signs: Vital Signs Temp 97.0 F L 12/20/16 07:00 Pulse 92 12/20/16 11:46 Resp 20 12/20/16 07:00 BP 142/81 12/20/16 07:00 Pulse Ox 96 12/20/16 08:22 Intake & Output 12/19/16 12/20/16 12/20/16 18:59 06:59 18:59 Intake Total 450 200 Balance 450 200 Intake: Oral 450 200 Other: Voiding Method Toilet Toilet # Voids 1 # Bowel Movements 0 - Labs CBC & Chem 7: 12/17/16 07:36 12/17/16 07:34 Labs: Abnormal Lab Results - Last 24 Hours (Table) 12/19/16 12/19/16 12/20/16 Range/Units 17:23 20:38 07:08 POC Glucose (mg/dL) 163 H 152 H 138 H (75-99) mg/dL 12/20/16 Range/Units 11:16 POC Glucose (mg/dL) 133 H (75-99) mg/dL
[2016-12-20] MEDS: ALBUTEROL NEBULIZED 2.5 MG/3 ML INHALATION SCH ×2 (15:00→19:31)
--- NOTE | 2016-12-20 15:14 | P.PN ---
Subjective 56-year-old being seen on rounds. Patient is also being followed by the immigration case worker and school social worker pursuing the discharge plan. Patient states he's in between living situation he hopes to go live with his brother in [facility]. Patient states his motor transportation is a bicycle with all of his family belongings. is reporting that his nebulizer machine is at his brothers in [facility] when questioning the patient is to when and how he uses it patient is vague about the response. Also the patient is stating he is a [place] has not been able to follow-up with the [facility] hospital is been seen by the foreclosure home inspector this morning reading reviewing the report from the foreclosure home inspector they indicate they believe the long-term control would be a surgical approach for treatment of his primary open angle glaucoma. Objective - Vital Signs Vital signs: Vital Signs Temp 97.0 F L 12/20/16 07:00 Pulse 94 12/20/16 15:00 Resp 20 12/20/16 07:00 BP 142/81 12/20/16 07:00 Pulse Ox 96 12/20/16 08:22 Intake & Output 12/19/16 12/20/16 12/20/16 18:59 06:59 18:59 Intake Total 450 200 Balance 450 200 Intake: Oral 450 200 Other: Voiding Method Toilet Toilet # Voids 1 1 # Bowel Movements 0 - Exam Physical exam 56-year-old male sitting up in bed oriented 3. States that the vision in the right eye is improving patient continues to report feeling very short of breath decreased endurance increased fatigue with any activity Lungs rhonchi throughout diminished at the bases nasal cannula 2 L Heart S1-S2 audible regular Abdomen soft nontender not distended Extremities no edema noted - Labs CBC & Chem 7: 12/17/16 07:36 12/17/16 07:34 Labs: Abnormal Lab Results - Last 24 Hours (Table) 12/19/16 12/19/16 12/20/16 Range/Units 17:23 20:38 07:08 POC Glucose (mg/dL) 163 H 152 H 138 H (75-99) mg/dL 12/20/16 Range/Units 11:16 POC Glucose (mg/dL) 133 H (75-99) mg/dL Assessment and Plan Plan: Impression Present on admission acute exacerbation of COPD with acute tracheal bronchitis Sudden onset this admission episode of right vision loss involving right eye suspect due to acute glaucoma OD greater than OS Retinal vascular occlusion, right eye not ruled out Status: Acute Code(s): H34.9 - UNSPECIFIED RETINAL VASCULAR OCCLUSION ALLERGIC asthma stable Elevated IgE this admission Present on admission meet SIRS criteria without clear evidence of sepsis leukocytosis likely due to steroids History of a prior CVA Emphysema Chronic pain syndrome and narcotic dependency Active tobacco abuse greater than a 40 year history Type 2 diabetes Frequent readmissions for COPD Issues of noncompliance with medication and follow-up Hypertension Present on admission hypertension urgency Lack of social support Plan recommendations by ophthalmology direct service worker to evaluate the home situation currently patient lives with a brother Smoking cessation information provided patient's been advised to stop smoking Continue current aerosol bronchodilators DVT and GI prophylaxis PT OT eval possible subacute rehab placement The above dictated assessment and findings were discussed with dr tabares . Impression and the plan of care have been dictated as directed. Sherri Dang nurse practitioner acting as a scribe for dr tabares
[2016-12-20 16:45] LABS: Glucose,Whole Blood 196 mg/dL (75-99)
--- NOTE | 2016-12-20 17:32 | PN ---
DATE OF SERVICE: 12/20/2016 Patient is a 56-year-old male who is seen lying in bed asleep; easily arousable. He is still complaining of shortness of breath. He is afebrile, hemodynamically stable, a little bit tachycardic, in no acute distress. On physical exam, vital signs are temperature 97.0, heart rate 94 to 113, respiratory rate 20, blood pressure 142/81, oxygen saturation 96% on 2 L oxygen via nasal cannula. HEENT: Head is normocephalic, atraumatic. NECK: Supple. Trachea is midline. LUNGS: Coarse breath sounds throughout. HEART: S1 and S2 are heard. ABDOMEN: Soft. Bowel sounds are heard. EXTREMITIES: With no edema. NEUROLOGIC: Patient is awake and alert. LABS: Glucose is 133. No other labs to review. No new imaging to review. IMPRESSION: 1. Acute exacerbation of chronic obstructive pulmonary disease. 2. Allergic asthma. 3. Cephalgia. 4. Tracheobronchitis. 5. Elevated IgE. 6. Systemic inflammatory response syndrome. 7. Leukocytosis, steroid-induced. 8. Diabetes mellitus, type 2. 9. Nicotine dependence. 10. Chronic pain. 11. Gastroesophageal reflux disease. 12. Hypertension. 13. Glaucoma. PLAN: Continue current medications, which have been reviewed. Continue with bronchodilator with albuterol only. Ipratropium, the anticholinergic, has been stopped, as patient has recently been diagnosed with glaucoma. Continue with GI and DVT prophylaxis. Will follow patient closely with you, making further changes as necessary.
--- NOTE | 2016-12-20 18:04 | P.PN ---
Subjective This patient is a 56-year-old right-handed white male who was seen yesterday on neurology consultation for evaluation of acute right eye vision loss. Patient had symptoms of sudden vision loss involving his right eye. This raised a suspicion for possible stroke right central retinal artery occlusion. He was sent for a CTA angiogram of the head and neck yesterday. Final report indicated noncalcified plaque distribution in the proximal common carotid arteries bilaterally. Left was greater than right. No hemodynamically significant stenosis was seen in the common or internal carotid arteries bilaterally. No evidence of any aneurysm and the [place]. We reviewed the results of the CT angiogram of the head and neck today with the patient. We did recommend they urgent ophthalmology consultation for this patient yesterday. Patient was seen in consult by Dr. Yanez yesterday evening. He was found to have vision loss in the right eye felt to be secondary to acute intraocular pressure elevation from glaucoma. Patient was immediately started on topical glaucoma drops were both eyes. Carbonic anhydrase inhibitor was also started for him yesterday. He is currently on 500 mg of Diamox. Patient was reevaluated by ophthalmology today. Dr. Yanez notice some improvement with right eye open angle glaucoma which has responded to treatment yesterday. There is some improvement with his vision today. The patient himself has noted improvement with right eye vision today. He will follow-up with the manager adobe soon after discharge for further evaluation. Patient is continuing on glaucoma eyedrops at this time. We will continue to monitor his condition closely. Expectation for full recovery of the right eye vision is guarded at this time. Patient continues to show some corneal edema in the right eye. Patient underwent routine EEG today which was reviewed. EEG is moderately slow with no evidence of any epileptiform discharges. Patient continues to have symptoms of COPD with some respiratory congestion. Pulmonary medicine is following the patient closely. 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 Intraocular pressures still remained very elevated in the right eye. Patient may require surgical intervention for treatment of the open angle glaucoma. We will follow the recommendations of ophthalmology. Continue further workup for possible discharge planning. We will continue close neurological follow-up of this patient during this admission. Recommend tight control of his blood pressure. His overall prognosis at this time remains guarded. We will continue close neurological follow-up of this patient during this admission. Objective - Vital Signs Vital signs: Vital Signs Temp 96.9 F L 12/20/16 15:00 Pulse 94 12/20/16 15:16 Resp 20 12/20/16 15:00 BP 135/73 12/20/16 15:00 Pulse Ox 95 12/20/16 15:00 Intake & Output 12/19/16 12/20/16 12/20/16 18:59 06:59 18:59 Intake Total 450 200 Balance 450 200 Intake: Oral 450 200 Other: Voiding Method Toilet Toilet # Voids 1 1 # Bowel Movements 0 - Exam Physical examination: PHYSICAL EXAMINATION: Patient is resting comfortably in bed. VITAL SIGNS: Blood pressure is [135/73]. Heart rate is [112]. Respiration is [20 ]. Temperature is [96.9]. HEENT: Head is atraumatic, neck is supple, there were no carotid bruits. CHEST: Lungs are clear to auscultation and percussion. CARDIAC: S1, S2 normal rate and rhythm. There is no murmur. ABDOMEN: Soft and nontender. Bowel sounds are present. EXTREMITIES: There is no pedal edema. Peripheral pulses are present. Neurological examination: Patient's neurological examination is unchanged from yesterday. Patient mentions vision is slightly improved in the right eye since 2 days ago. - Labs CBC & Chem 7: 12/17/16 07:36 12/17/16 07:34 Labs: Abnormal Lab Results - Last 24 Hours (Table) 12/19/16 12/19/16 12/20/16 Range/Units 17:23 20:38 07:08 POC Glucose (mg/dL) 163 H 152 H 138 H (75-99) mg/dL 12/20/16 Range/Units 11:16 POC Glucose (mg/dL) 133 H (75-99) mg/dL Assessment and Plan (1) Retinal vascular occlusion, right eye Status: Acute Code(s): H34.9 - UNSPECIFIED RETINAL VASCULAR OCCLUSION (2) TIA (transient ischemic attack) Status: Acute Code(s): G45.9 - TRANSIENT CEREBRAL ISCHEMIC ATTACK, UNSPECIFIED (3) Tracheobronchitis Status: Acute Code(s): J40 - BRONCHITIS, NOT SPECIFIED ACUTE OR CHRONIC (4) COPD with acute exacerbation Status: Acute Code(s): J44.1 - CHRONIC OBSTRUCTIVE PULMONARY DISEASE W (ACUTE ) EXACERBATION Plan: This patient is a 56-year-old male who was initially evaluated for acute vision loss involving right eye. Patient underwent a full neurological evaluation including computed tomography scan of the brain and EEG. 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 He was started on eyedrops for treatment of the acute glaucoma. He was seen by ophthalmology today and continues to have some improvement with the right eye vision but intraocular pressure in the right eye remains elevated at 36 mm Hg. Left eye is 18 mm Hg. ophthalmology did see the patient today and are now considering surgical approach for his further treatment. Neurologically there is been no other significant changes for the patient. Plans are being arranged for him in terms of discharge planning to home with the help from his brother. He is also being considered for [facility] assistance. Overall neurological exam findings are stable and reveals slight improvement with his right vision since his initial presentation. His overall prognosis at this time remains very guarded.
[2016-12-20] MEDS: MONTELUKAST 10 MG TAB PO SCH (20:42)
[2016-12-20 21:06] LABS: Glucose,Whole Blood 176 mg/dL (75-99)
[2016-12-20] MEDS ORDERED: ALBUTEROL NEBULIZED 2.5 MG/3 ML INHALATION PRN (21:11)
[2016-12-21] MEDS: HYDROcodone/APAP 7.5-325MG 1 EACH TAB PO PRN ×2 (02:34→10:45)
[2016-12-21] MEDS: SODIUM CHLORIDE 5% OPHTH DROPS 15 ML BTL RIGHT EYE SCH ×2 (05:51→11:17)
[2016-12-21 07:05] LABS: Glucose,Whole Blood 147 mg/dL (75-99)
[2016-12-21] MEDS: BUDESONIDE 0.5 MG/2 ML NEBU INHALATION SCH (07:32)
[2016-12-21] MEDS: FORMOTEROL FUMARATE 20 MCG/2 ML NEBU INHALATION SCH (07:32)
[2016-12-21] MEDS: ALBUTEROL NEBULIZED 2.5 MG/3 ML INHALATION SCH ×3 (07:32→16:16)
[2016-12-21] MEDS: amLODIPine 10 MG TAB PO SCH (08:03)
[2016-12-21] MEDS: INSULIN LISPRO (humaLOG) 300 UNIT/3 ML VIAL SQ SCH ×2 (08:03→12:28)
[2016-12-21] MEDS: acetaZOLAMIDE 250 MG TAB PO SCH ×2 (08:03→08:07)
[2016-12-21] MEDS: NICOTINE 14MG/24HR PATCH TRANSDERM SCH (08:03)
[2016-12-21] MEDS: DORZOLAMIDE HCL 2% DROPS 10 ML BTL RIGHT EYE SCH (08:03)
[2016-12-21] MEDS: levETIRAcetam 500 MG TAB PO SCH (08:04)
[2016-12-21] MEDS: OLANZapine 5 MG TAB PO SCH (08:04)
[2016-12-21] MEDS: predniSONE 20 MG TAB PO SCH (08:04)
[2016-12-21] MEDS: FAMOTIDINE 20 MG TAB PO SCH (08:04)
--- NOTE | 2016-12-21 09:46 | P.PN ---
Subjective S: Patient feels vision is somewhat better this morning. Admits he thinks there were problems using oral treatment as he felt his breathing may have been bothered. O: Va uncorrected 20/50 OD, 20/20 OS near IOP: 35 mm Hg OD, 20 mm Hg OS Cornea less edematous OD, still too hazy to appreciate posterior pole OD. A: Steroid responsive glaucoma improved with spacing medications, but IOP remains too elevated for long-term health. P: will modify current treatment to attempt to lower IOP further. Seems most responsive to ANAMARIA, therefore will increase OD only medication. Objective - Vital Signs Vital signs: Vital Signs Temp 96.9 F L 12/21/16 07:00 Pulse 96 12/21/16 07:53 Resp 18 12/21/16 07:00 BP 121/77 12/21/16 07:00 Pulse Ox 96 12/21/16 07:33 Intake & Output 12/20/16 12/21/16 12/21/16 18:59 06:59 18:59 Intake Total 480 Balance 480 Intake: Oral 480 Other: Voiding Method Toilet # Voids 1 1 - Labs CBC & Chem 7: 12/17/16 07:36 12/17/16 07:34 Labs: Abnormal Lab Results - Last 24 Hours (Table) 12/20/16 12/20/16 12/20/16 Range/Units 11:16 16:44 20:46 POC Glucose (mg/dL) 133 H 196 H 176 H (75-99) mg/dL 12/21/16 Range/Units 06:58 POC Glucose (mg/dL) 147 H (75-99) mg/dL
[2016-12-21] MEDS: APRACLONIDINE 0.5% BOTH EYES SCH (09:57)
[2016-12-21] MEDS: MULTIVITAMINS, THERA 1 EACH TAB PO SCH (11:17)
[2016-12-21] MEDS: FOLIC ACID 1 MG TAB PO SCH (11:17)
[2016-12-21 11:39] LABS: Glucose,Whole Blood 157 mg/dL (75-99)
[2016-12-21] MEDS ORDERED: DORZOLAMIDE HCL 2% DROPS 10 ML BTL RIGHT EYE SCH (13:00)
--- NOTE | 2016-12-21 13:05 | P.PN ---
Subjective Principal diagnosis: Acute exacerbation of COPD Patient seen and examined. Patient states his breathing is not as good today. He is having right sided blindness as well. The patient is found to have glaucoma. He is now agreeable to go to rehabilitation. Objective - Vital Signs Vital signs: Vital Signs Temp 96.9 F L 12/21/16 07:00 Pulse 92 12/21/16 11:24 Resp 18 12/21/16 07:00 BP 121/77 12/21/16 07:00 Pulse Ox 96 12/21/16 07:33 Intake & Output 12/20/16 12/21/16 12/21/16 18:59 06:59 18:59 Intake Total 480 Balance 480 Intake: Oral 480 Other: Voiding Method Toilet # Voids 1 1 - Exam Gen.: Patient is alert and oriented 3, no acute distress Cardiovascular: Regular rate and rhythm, S1/S2 Lungs: Diminished breath sounds bilaterally with scattered expiratory wheezing Abdomen: Soft nontender nondistended positive bowel sounds Extremities: No edema - Labs CBC & Chem 7: 12/17/16 07:36 12/17/16 07:34 Labs: Abnormal Lab Results - Last 24 Hours (Table) 12/20/16 12/20/16 12/21/16 Range/Units 16:44 20:46 06:58 POC Glucose (mg/dL) 196 H 176 H 147 H (75-99) mg/dL 12/21/16 Range/Units 11:36 POC Glucose (mg/dL) 157 H (75-99) mg/dL Assessment and Plan Plan: Acute exacerbation of COPD ALLERGIC asthma Cephalgia Glaucoma with right eye blindness Tracheobronchitis Elevated IgE SIRS without clear source of sepsis, leukocytosis possibly secondary to steroids History of CVA Emphysema Diabetes mellitus type 2 Active tobacco abuse Chronic pain syndrome GERD Hypertension Hyponatremia Anemia Medical noncompliance O2 to maintain saturation greater than or equal to 88% Pulmicort Perforomist Duonebs discontinued because ipratropium can worsen glaucoma. Continue Albuterol for now. Singulair Steroid taper Smoking cessation is highly recommended in this is discussed at length with the patient Nicotine transdermal Incentive spirometry and pulmonary hygiene Patient may benefit from Xolair as an outpatient however is not yet followed up in the office Outpatient pulmonary follow-up with PFT Patient may benefit from pulmonary rehab Placement and discharge planning are being evaluated Optho recs for glaucoma GI and DVT prophylaxis
[2016-12-21 13:20] VITALS: BMI 24.2
--- NOTE | 2016-12-21 14:28 | P.DS ---
Providers Date of admission: 12/15/16 13:37 Expected date of discharge: 12/21/16 Attending physician: Devon Tabares Consults: 12/15/16 15:07 Consult Physician Routine Consulting Provider: Venus King Consult Reason/Comments: copd Do you want consulting provider notified?: Yes 12/18/16 09:16 Consult Physician Routine Consulting Provider: Kendell Carr Consult Reason/Comments: Rt Eye Poor Vision, headaches Do you want consulting provider notified?: Yes 12/18/16 16:15 Consult Physician Urgent Consulting Provider: Villa Yanez Consult Reason/Comments: Right eye visual loss, acute in nature. Do you want consulting provider notified?: Yes Primary care physician: [facility] Course: 56-year-old male presented on the day of admission to the emergency room with a chief complaint of developing shortness of breath patient has had frequent in the month of November 4- time admissions for exacerbation of COPD. Patient states he's in between living situation. He hopes to live with his brother in [place] [facility]. Patient states his nebulizer and equipment is at his brother's house in [place] [facility] [place] he himself has been homeless with a mode of transportation been a bicycle with all of his personal belongings. Patient additionally states he's been a [place] and has not been able to get into the [place]. Recent is a poor historian. education program manager did attempt to contact the patient's brother patient did not want his btother contacted but stated if he could get a ride up to [place] [facility] his brother would let him live with him patient was seen by pulmonology and was treated at the time of discharge his symptoms had significantly improved. This admission the patient did have an episode of bright vision loss was seen by an theatrical trouper and treated for open angle glaucoma with the need to have eyedrops and the need to be followed in the outpatient setting with the theatrical trouper within the next 4 weeks. Subsequently this patient was stabilized and discharged home Dust Brush Assembler set the patient up to go home to his brother's house in [place] [facility] The time of discharge patient felt that the vision had improved Impression discharge diagnosis Present on admission acute exacerbation of COPD with acute tracheal bronchitis Sudden onset this admission episode of right vision loss involving right eye suspect due to acute glaucoma OD greater than OS Retinal vascular occlusion, right eye not ruled out Status: Acute Code(s): H34.9 - UNSPECIFIED RETINAL VASCULAR OCCLUSION ALLERGIC asthma stable Elevated IgE this admission Present on admission meet SIRS criteria without clear evidence of sepsis leukocytosis likely due to steroids History of a prior CVA Emphysema Chronic pain syndrome and narcotic dependency Active tobacco abuse greater than a 40 year history Type 2 diabetes Frequent readmissions for COPD Issues of noncompliance with medication and follow-up Hypertension Present on admission hypertension urgency Lack of social support Steroid responsive glaucoma improved with spacing medication The above dictated assessment and findings were discussed with dr tabares . Impression and the plan of care have been dictated as directed. Sherri Dang nurse practitioner acting as a scribe for dr tabares Plan - Discharge Summary New Discharge Prescriptions: Apraclonidine 0.5% Ophth Drops [Iopidine 0.5% Eye Drops] 1 drops BOTH EYES 1000, 1700,2300 #1 bottle Dorzolamide 2% [Trusopt 2%] 1 drops RIGHT EYE QID #1 ml Formoterol Fumarate [Perforomist] 20 mcg INHALATION RT-BID #1 nebu Levofloxacin [Levaquin] 500 mg PO DAILY #7 tab Sodium Chloride 5% Ophth Soln [[place] 128] 1 drops RIGHT EYE Q6HR #1 ml predniSONE 40 mg PO DAILY #12 tab Discharge Medication List amLODIPine [Norvasc] 10 mg PO DAILY 02/07/15 [History] Albuterol Sulfate [Ventolin HFA] 2 puff INHALATION RT-QID PRN 03/31/15 [History] Budesonide-Formot 160-4.5 Mcg [Symbicort 160-4.5 Mcg Inhaler] 2 puff INHALATION RT-BID #1 puff 07/08/15 [Rx] Folic Acid 1 mg PO DAILY@1200 #30 tab 11/13/16 [Rx] Montelukast [Singulair] 10 mg PO HS #30 tab 11/13/16 [Rx] Thiamine [Vitamin B-1] 100 mg PO DAILY #30 tablet 11/13/16 [Rx] Multivitamins, Thera [Multivitamin (formulary)] 1 tab PO DAILY@1200 11/14/16 [ History] Famotidine [Pepcid] 20 mg PO BID 11/22/16 [History] HYDROcodone/APAP 7.5-325MG [[place] 7.5-325] 1 tab PO Q6HR PRN #20 tab 11/27/16 [ Rx] OLANZapine [ZyPREXA] 5 mg PO TID #60 tab 12/10/16 [Rx] guaiFENesin [Mucinex] 1,200 mg PO Q12HR PRN #30 tablet.er 12/10/16 [Rx] Apraclonidine 0.5% Ophth Drops [Iopidine 0.5% Eye Drops] 1 drops BOTH EYES 1000, 1700,2300 #1 bottle 12/21/16 [Rx] Dorzolamide 2% [Trusopt 2%] 1 drops RIGHT EYE QID #1 ml 12/21/16 [Rx] Formoterol Fumarate [Perforomist] 20 mcg INHALATION RT-BID #1 nebu 12/21/16 [Rx] Levofloxacin [Levaquin] 500 mg PO DAILY #7 tab 12/21/16 [Rx] Sodium Chloride 5% Ophth Soln [[place] 128] 1 drops RIGHT EYE Q6HR #1 ml 12/21/16 [ Rx] predniSONE 40 mg PO DAILY #12 tab 12/21/16 [Rx] Follow up Appointment(s)/Referral(s): Urszula Carrasco MD [Primary Care Provider] - 1-2 days Villa Yanez MD [STAFF PHYSICIAN] - 1 Week Activity/Diet/Wound Care/Special Instructions: Discontinue duonebs because ipratropium and worsened glaucoma continue albuterol for now Discharge Disposition: HOME SELF-CARE
[2016-12-21 15:03] VITALS: BP 123/66; RESP 19; TEMP 97
--- NOTE | 2016-12-21 15:31 | P.PN ---
Subjective This patient is a 56-year-old right-handed white male who was seen yesterday on neurology consultation for evaluation of acute right eye vision loss. Patient had symptoms of sudden vision loss involving his right eye. This raised a suspicion for possible stroke right central retinal artery occlusion. He was sent for a CTA angiogram of the head and neck yesterday. Final report indicated noncalcified plaque distribution in the proximal common carotid arteries bilaterally. Left was greater than right. No hemodynamically significant stenosis was seen in the common or internal carotid arteries bilaterally. No evidence of any aneurysm and the [place]. We reviewed the results of the CT angiogram of the head and neck today with the patient. We did recommend they urgent ophthalmology consultation for this patient yesterday. Patient was seen in consult by Dr. Yanez yesterday evening. He was found to have vision loss in the right eye felt to be secondary to acute intraocular pressure elevation from glaucoma. Patient was immediately started on topical glaucoma drops were both eyes. Carbonic anhydrase inhibitor was also started for him yesterday. He is currently on 500 mg of Diamox. Patient was reevaluated by ophthalmology today. Dr. Yanez notice some improvement with right eye open angle glaucoma which has responded to treatment yesterday. There is some improvement with his vision today. The patient himself has noted improvement with right eye vision today. He will follow-up with the commercial artist soon after discharge for further evaluation. Patient is continuing on glaucoma eyedrops at this time. We will continue to monitor his condition closely. Expectation for full recovery of the right eye vision is guarded at this time. Patient continues to show some corneal edema in the right eye. Patient underwent routine EEG today which was reviewed. EEG is moderately slow with no evidence of any epileptiform discharges. Patient continues to have symptoms of COPD with some respiratory congestion. Pulmonary medicine is following the patient closely. 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 Intraocular pressures still remained very elevated in the right eye. Patient may require surgical intervention for treatment of the open angle glaucoma. We will follow the recommendations of ophthalmology. Continue further workup for possible discharge planning. Patient is being considered for discharge home later this afternoon. We will continue close neurological follow-up of this patient during this admission. Recommend tight control of his blood pressure. His overall prognosis at this time remains guarded. We will continue close neurological follow-up of this patient during this admission. Objective - Vital Signs Vital signs: Vital Signs Temp 97.0 F L 12/21/16 15:00 Pulse 108 H 12/21/16 15:00 Resp 19 12/21/16 15:00 BP 123/66 12/21/16 15:00 Pulse Ox 94 L 12/21/16 15:00 Intake & Output 12/20/16 12/21/16 12/21/16 18:59 06:59 18:59 Intake Total 480 Balance 480 Weight 68.039 kg Intake: Oral 480 Other: Voiding Method Toilet # Voids 1 1 2 # Bowel Movements 0 - Exam Physical examination: PHYSICAL EXAMINATION: Patient is resting comfortably in bed. VITAL SIGNS: Blood pressure is [123/65]. Heart rate is [108]. Respiration is [19 ]. Temperature is [97.0]. HEENT: Head is atraumatic, neck is supple, there were no carotid bruits. CHEST: Lungs are clear to auscultation and percussion. CARDIAC: S1, S2 normal rate and rhythm. There is no murmur. ABDOMEN: Soft and nontender. Bowel sounds are present. EXTREMITIES: There is no pedal edema. Peripheral pulses are present. Neurological examination: Patient's neurological examination is unchanged from yesterday. Patient mentions vision is slightly improved in the right eye since 2 days ago. - Labs CBC & Chem 7: 12/17/16 07:36 12/17/16 07:34 Labs: Abnormal Lab Results - Last 24 Hours (Table) 12/20/16 12/20/16 12/21/16 Range/Units 16:44 20:46 06:58 POC Glucose (mg/dL) 196 H 176 H 147 H (75-99) mg/dL 12/21/16 Range/Units 11:36 POC Glucose (mg/dL) 157 H (75-99) mg/dL Assessment and Plan (1) Retinal vascular occlusion, right eye Status: Acute Code(s): H34.9 - UNSPECIFIED RETINAL VASCULAR OCCLUSION (2) TIA (transient ischemic attack) Status: Acute Code(s): G45.9 - TRANSIENT CEREBRAL ISCHEMIC ATTACK, UNSPECIFIED (3) Tracheobronchitis Status: Acute Code(s): J40 - BRONCHITIS, NOT SPECIFIED ACUTE OR CHRONIC (4) COPD with acute exacerbation Status: Acute Code(s): J44.1 - CHRONIC OBSTRUCTIVE PULMONARY DISEASE W (ACUTE ) EXACERBATION Plan: This patient is a 56-year-old male who was initially evaluated for acute vision loss involving right eye. Patient underwent a full neurological evaluation including computed tomography scan of the brain and EEG. 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 He was started on eyedrops for treatment of the acute glaucoma. He was seen by ophthalmology today and continues to have some improvement with the right eye vision but intraocular pressure in the right eye remains elevated at 36 mm Hg. Left eye is 18 mm Hg. ophthalmology did see the patient today and are now considering surgical approach for his further treatment. Neurologically there is been no other significant changes for the patient. Plans are being arranged for him in terms of discharge planning to home with the help from his brother. He is also being considered for VA assistance. Overall neurological exam findings are stable and reveals slight improvement with his right vision since his initial presentation. Patient is being considered for discharge to home later today. He may follow-up in the outpatient neurology clinic in 3-4 weeks. His overall prognosis at this time remains very guarded.
[2016-12-21 16:17] VITALS: PULSE 94
== END 2016-12-21 16:40 | disposition home or self-care (01) ==
LOC: EC 09:53 → 3SUR 13:37 → 4MS4W 12-18 09:24
PROVIDERS: ADMIT Family Medicine; ATTEND Family Medicine
DX: J44.1 Chronic obstructive pulmonary disease with (acute) exacerbation (principal); J44.0 Chronic obstructive pulmonary disease with (acute) lower respiratory infection; J20.9 Acute bronchitis, unspecified; H54.41 Blindness, right eye, normal vision left eye; H34.9 Unspecified retinal vascular occlusion; J45.909 Unspecified asthma, uncomplicated; R65.10 Systemic inflammatory response syndrome (SIRS) of non-infectious origin without acute organ dysfunction; D72.829 Elevated white blood cell count, unspecified; Z86.73 Personal history of transient ischemic attack (TIA), and cerebral infarction without residual deficits; J96.01 Acute respiratory failure with hypoxia; G89.4 Chronic pain syndrome; F11.20 Opioid dependence, uncomplicated; I10 Essential (primary) hypertension; I16.0 Hypertensive urgency; Z59.0 Homelessness; E87.1 Hypo-osmolality and hyponatremia; Z91.14 Patient's other noncompliance with medication regimen; F17.210 Nicotine dependence, cigarettes, uncomplicated; K21.9 Gastro-esophageal reflux disease without esophagitis; D64.9 Anemia, unspecified; I25.2 Old myocardial infarction; E11.9 Type 2 diabetes mellitus without complications; Z87.01 Personal history of pneumonia (recurrent); Z79.899 Other long term (current) drug therapy; Z79.52 Long term (current) use of systemic steroids; Z88.6 Allergy status to analgesic agent; Z88.8 Allergy status to other drugs, medicaments and biological substances; G45.9 Transient cerebral ischemic attack, unspecified; T38.0X5A Adverse effect of glucocorticoids and synthetic analogues, initial encounter; H40.1110 Primary open-angle glaucoma, right eye, stage unspecified; H40.1122 Primary open-angle glaucoma, left eye, moderate stage; H54.61 Unqualified visual loss, right eye, normal vision left eye
CPT/HCPCS: 96374; 99291; 36415; 94640 ×14; 94760 ×6; 95819; 93005; 97161; 97165; 84439; 83880; 80053 ×3; 84443; 83036 ×2; 82550; 82553; 83735; 84484; 85025 ×3; 85610; 85730; 87040; 71020; 70496; 70450; 70498; G0378 ×7; S4990 ×5; J2920 ×2; J2930 ×4; Q9967; J7512 ×2

== ENCOUNTER 2017-01-20 20:29 | Inpatient (IN) | payer OTHER ==
[2017-01-20 21:17] LABS: CHCM 35.1; HCT 31.4 % (39.0-53.0); HDW 3.21; HGB 10.8 gm/dL (13.0-17.5); Immature Gran Flag Marked; MCH 33.5 pg (25.0-35.0); MCHC 34.5 g/dL (31.0-37.0); MCV 97.3 fL (80.0-100.0); Mean Platelet Volume 6.4; RBC 3.23 m/uL (4.30-5.90); RDW 14.4 % (11.5-15.5); WBC 14.6 k/uL (3.8-10.6); WBC (Perox) 15.51
--- NOTE | 2017-01-20 21:26 | ED ---
SOB HPI - General Chief Complaint: Shortness of Breath Stated Complaint: abn labs Time Seen by Provider: 01/20/17 21:00 Source: patient Mode of arrival: EMS Limitations: no limitations - History of Present Illness Initial Comments: This patient is a 56-year-old man sent from his long-term care facility to be evaluated for possible pneumonia. The patient states he has been having increase in his sputum for the past day or 2. He is also been feeling short of breath. This afternoon he started having fevers and has result was sent here to be evaluated. Patient states she feels similar to when he has had previous pneumonias. He is denying chest pain. MD Complaint: shortness of breath, cough Onset/Timin -: days(s) Known History Of: COPD, recurrent pneumonia Associated Symptoms: fever, cough, sputum production Treatments Prior to Arrival: oxygen - Related Data Home Medications Medication Instructions Recorded Confirmed amLODIPine [Norvasc] 10 mg PO DAILY 02/07/15 01/20/17 Multivitamins, Thera [Multivitamin 1 tab PO DAILY 11/14/16 01/20/17 (formulary)] Famotidine [Pepcid] 20 mg PO BID 11/22/16 01/20/17 ALPRAZolam [Xanax] 0.25 mg PO BID PRN 01/20/17 01/20/17 Acetaminophen Tab [Tylenol Tab] 650 mg PO Q6H PRN 01/20/17 01/20/17 Aspirin EC [Ecotrin Low Dose] 81 mg PO DAILY 01/20/17 01/20/17 Beclomethasone Dipropionate [Qvar 1 puff INHALATION RT-BID 01/20/17 01/20/17 80 mcg] Dimethicone/Zinc Oxide [Inzo Zinc 1 applic TOPICAL Q12H 01/20/17 01/20/17 Oxide Barrier Cream] Folic Acid 1 mg PO DAILY 01/20/17 01/20/17 HYDROcodone/APAP 5-325MG [[place] 1 tab PO TID PRN 01/20/17 01/20/17 5-325] Ipratropium-Albuterol Nebulize 3 ml INHALATION RT-Q4H PRN 01/20/17 01/20/17 [Duoneb 0.5 mg-3 mg/3 ml Soln] Nicotine 14Mg/24Hr Patch [Habitrol 1 patch TRANSDERM DAILY 01/20/17 01/20/17 14Mg/24Hr Patch] guaiFENesin [Mucinex] 600 mg PO Q12HR 01/20/17 01/20/17 guaiFENesin-DM 100-10MG/5ML 10 ml PO Q4H PRN 01/20/17 01/20/17 [Robitussin DM] levETIRAcetam [Keppra] 500 mg PO DAILY 01/20/17 01/20/17 Previous Rx's Medication Instructions Recorded Thiamine [Vitamin B-1] 100 mg PO DAILY #30 tablet 11/13/16 Allergies Allergy/AdvReac Type Severity Reaction Status Date / Time No Known Allergies Allergy Verified 01/20/17 21:38 Review of Systems ROS Statement: Those systems with pertinent positive or pertinent negative responses have been documented in the HPI. ROS Other: All systems not noted in ROS Statement are negative. Constitutional: Reports: fever, chills Respiratory: Reports: cough, dyspnea, wheezes. 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,PER PAST MEDICAL HX NOTED C2 fracture(FROM [facility]-NOT ABLE TO CONFIRM WITH PT-patient denies this), Osteoarthritis, DJD, "FROZEN SHOULDER SYNDROME (RT)", ID-PT STATED IN THE Last Myocardial Infarction Date:: unknown History of Any Multi-Drug Resistant Organisms: None Reported Past Surgical History: Orthopedic Surgery Additional Past Surgical History / Comment(s): neck fx, metal plate left hand middle finger Past Anesthesia/Blood Transfusion Reactions: No Reported Reaction Past Psychological History: Panic Disorder Additional Psychological History / Comment(s): 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 - Past Family History Mother Family Medical History: Cancer Additional Family Medical History / Comment(s): Pt believes his Mom of Kidney Ca, but not 100% sure. Father Family Medical History: Cancer, COPD, Respiratory Disorder Additional Family Medical History / Comment(s): Melonoma General Exam Limitations: no limitations General appearance: alert, in distress Eye exam: Present: normal appearance, scleral icterus. Absent: conjunctival injection, nystagmus ENT exam: Present: normal oropharynx Neck exam: Present: normal inspection, full ROM Respiratory exam: Present: respiratory distress, wheezes, rhonchi. Absent: rales, stridor Cardiovascular Exam: Present: normal rhythm, tachycardia (Tachycardic), normal heart sounds. Absent: systolic murmur, diastolic murmur, rubs, gallop GI/Abdominal exam: Present: soft. Absent: distended, tenderness, guarding, rebound, mass Extremities exam: Present: normal inspection, normal capillary refill. Absent: pedal edema, calf tenderness Back exam: Present: normal inspection. Absent: CVA tenderness (R), CVA tenderness (L) Neurological exam: Present: alert Skin exam: Present: warm, dry, intact, normal color. Absent: rash Course Vital Signs 01/20/17 01/20/17 01/20/17 20:36 21:40 22:58 Temperature 100.2 F H 99.3 F Pulse Rate 108 H 104 H 101 H Respiratory 26 H 18 18 Rate Blood Pressure 107/67 122/67 108/55 O2 Sat by Pulse 91 L 93 L 93 L Oximetry 01/20/17 23:33 Temperature Pulse Rate 106 H Respiratory 24 Rate Blood Pressure 105/56 O2 Sat by Pulse 90 L Oximetry Medical Decision Making - Lab Data Result diagrams: 01/20/17 20:47 01/20/17 20:47 Lab Results 01/20/17 01/20/17 01/20/17 Range/Units 20:47 20:47 20:47 WBC 14.6 H (3.8-10.6) k/uL RBC 3.23 L (4.30-5.90) m/uL Hgb 10.8 L (13.0-17.5) gm/dL Hct 31.4 L (39.0-53.0) % MCV 97.3 (80.0-100.0) fL MCH 33.5 (25.0-35.0) pg MCHC 34.5 (31.0-37.0) g/dL RDW 14.4 (11.5-15.5) % Plt Count 388 (150-450) k/uL Neutrophils % (Manual) 74.5 % Band Neutrophils % 6.5 % Lymphocytes % (Manual) 12.5 % Monocytes % (Manual) 0.5 % Eosinophils % (Manual) 1.0 % Basophils % (Manual) 2.0 % Metamyelocytes % 0.5 % Myelocytes % 2.5 % Neutrophils # (Manual) 11.8 H (1.3-7.7) k/uL Lymphocytes # (Manual) 1.8 (1.0-4.8) k/uL Monocytes # (Manual) 0.1 (0-1.0) k/uL Eosinophils # (Manual) 0.1 (0-0.7) k/uL Basophils # (Manual) 0.3 H (0-0.2) k/uL Nucleated RBCs 0 (0-0) /100 WBC Manual Slide Review Performed Toxic Granulation Present Polychromasia Present Poikilocytosis (manual Present PT (9.0-12.0) sec INR (<1.1) APTT (22.0-30.0) sec Sodium 132 L (137-145) mmol/L Potassium 4.5 (3.5-5.1) mmol/L Chloride 95 L (98-107) mmol/L Carbon Dioxide 29 (22-30) mmol/L Anion Gap 8 mmol/L BUN 7 L (9-20) mg/dL Creatinine 0.60 L (0.66-1.25) mg/dL Est GFR (MDRD) Af Amer >60 (>60 ml/min/1.73 sqM) Est GFR (MDRD) Non-Af >60 (>60 ml/min/1.73 sqM) Glucose 87 (74-99) mg/dL Plasma Lactic Acid Gray 1.3 (0.7-2.0) mmol/L Calcium 9.4 (8.4-10.2) mg/dL Total Bilirubin 0.4 (0.2-1.3) mg/dL AST 36 (17-59) U/L ALT 68 (21-72) U/L Alkaline Phosphatase 62 (38-126) U/L Total Protein 6.0 L (6.3-8.2) g/dL Albumin 3.1 L (3.5-5.0) g/dL Urine Color Urine Appearance (Clear) Urine pH (5.0-8.0) Ur Specific [place] (1.001-1.035) Urine Protein (Negative) Urine Glucose (UA) (Negative) Urine Ketones (Negative) Urine Blood (Negative) Urine Nitrite (Negative) Urine Bilirubin (Negative) Urine Urobilinogen (<2.0) mg/dL Ur Leukocyte Esterase (Negative) 01/20/17 01/20/17 Range/Units 20:47 21:30 WBC (3.8-10.6) k/uL RBC (4.30-5.90) m/uL Hgb (13.0-17.5) gm/dL Hct (39.0-53.0) % MCV (80.0-100.0) fL MCH (25.0-35.0) pg MCHC (31.0-37.0) g/dL RDW (11.5-15.5) % Plt Count (150-450) k/uL Neutrophils % (Manual) % Band Neutrophils % % Lymphocytes % (Manual) % Monocytes % (Manual) % Eosinophils % (Manual) % Basophils % (Manual) % Metamyelocytes % % Myelocytes % % Neutrophils # (Manual) (1.3-7.7) k/uL Lymphocytes # (Manual) (1.0-4.8) k/uL Monocytes # (Manual) (0-1.0) k/uL Eosinophils # (Manual) (0-0.7) k/uL Basophils # (Manual) (0-0.2) k/uL Nucleated RBCs (0-0) /100 WBC Manual Slide Review Toxic Granulation Polychromasia Poikilocytosis (manual PT 10.5 (9.0-12.0) sec INR 1.0 (<1.1) APTT 23.9 (22.0-30.0) sec Sodium (137-145) mmol/L Potassium (3.5-5.1) mmol/L Chloride (98-107) mmol/L Carbon Dioxide (22-30) mmol/L Anion Gap mmol/L BUN (9-20) mg/dL Creatinine (0.66-1.25) mg/dL Est GFR (MDRD) Af Amer (>60 ml/min/1.73 sqM) Est GFR (MDRD) Non-Af (>60 ml/min/1.73 sqM) Glucose (74-99) mg/dL Plasma Lactic Acid Gray (0.7-2.0) mmol/L Calcium (8.4-10.2) mg/dL Total Bilirubin (0.2-1.3) mg/dL AST (17-59) U/L ALT (21-72) U/L Alkaline Phosphatase (38-126) U/L Total Protein (6.3-8.2) g/dL Albumin (3.5-5.0) g/dL Urine Color Light Yellow Urine Appearance Clear (Clear) Urine pH 7.0 (5.0-8.0) Ur Specific [place] 1.002 (1.001-1.035) Urine Protein Negative (Negative) Urine Glucose (UA) Negative (Negative) Urine Ketones Negative (Negative) Urine Blood Negative (Negative) Urine Nitrite Negative (Negative) Urine Bilirubin Negative (Negative) Urine Urobilinogen <2.0 (<2.0) mg/dL Ur Leukocyte Esterase Negative (Negative) - EKG Data -: EKG Interpreted by Ok EKG shows normal: sinus rhythm, axis (Normal), intervals (Normal), QRS complexes (Normal), ST-T waves (Normal) Rate: tachycardia (Rate 109 bpm) Interpretation: LVH, other (The underlying rhythm appears to be sinus with bigeminy.) Disposition Clinical Impression: SIRS (systemic inflammatory response syndrome), COPD exacerbation, Pneumonia Disposition: ADMITTED IP TO THIS [facility] Condition: Poor Referrals: Urszula Carrasco MD [Primary Care Provider] - 1-2 days
[2017-01-20 21:27] LABS: ALT 68 U/L (21-72); AST 36 U/L (17-59); Alkaline Phosphatase 62 U/L (38-126); Anion Gap 8 mmol/L; Blood Urea Nitrogen 7 mg/dL (9-20); Calcium 9.4 mg/dL (8.4-10.2); Carbon Dioxide 29 mmol/L (22-30); Chloride 95 mmol/L (98-107); Glucose 87 mg/dL (74-99); Non-African American GFR(MDRD) >60 (>60 ml/min/1.73 sqM); Potassium 4.5 mmol/L (3.5-5.1); Sodium 132 mmol/L (137-145); Total Bilirubin 0.4 mg/dL (0.2-1.3)
--- NOTE | 2017-01-20 21:28 | XR ---
EXAMINATION TYPE: XR chest 1V portable DATE OF EXAM: 01/20/2017 9:20 PM COMPARISON: 12/15/2016 HISTORY: Fever TECHNIQUE: Single frontal view of the chest is obtained. FINDINGS: There is pulmonary vascular congestion. There is interstitial edema in the mid and lower l vaishnavi brown. There is slight blunting of costophrenic angles. There are chest leads. Heart is probably enlarged. IMPRESSION: There is evidence of new congestive heart failure compared to last exam. Bilateral lower lobe pneumonia cannot be excluded.
[2017-01-20 21:30] LABS: Add Differential Manual Differential
[2017-01-20 21:33] LABS: Partial Thromboplastin Time 23.9 sec (22.0-30.0); Prothrombin Time 10.5 sec (9.0-12.0)
[2017-01-20 21:34] LABS: Band Neutrophils % 6.5 %; Manual Review Performed; Metamyelocytes % 0.5 %; Myelocytes % 2.5 %; Nucleated Red Blood Cells 0 /100 WBC (0-0); Polychromasia Present; Total Cells Counted 200; Toxic Granulation Present
[2017-01-20 22:04] LABS: Appearance,Urine Clear (Clear); Bilirubin,Urine Negative (Negative); Glucose,Urine (UA) Negative (Negative); Ketones,Urine Negative (Negative); Leukocyte Esterase,Urine Negative (Negative); Nitrite,Urine Negative (Negative); Protein,Urine Negative (Negative); Specific Gravity,Urine 1.002 (1.001-1.035); UA Billing (MACRO vs. MICRO) CHEM; Urobilinogen,Urine <2.0 mg/dL (<2.0)
[2017-01-20] MEDS ORDERED: LEVOFLOXACIN 750MG-D5W PMX 750 MG in DEXTROSE/WATER 1 150ML.BAG IVPB STA (22:07)
[2017-01-20] MEDS ORDERED: PIPERACILLIN-TAZOBACTAM 3.375 GM in DEXTROSE/WATER 1 50ML.BAG IVPB STA (22:08)
[2017-01-20] MEDS ORDERED: HYDROcodone/APAP 7.5-325MG 1 EACH TAB PO ONE (23:34)
[2017-01-20] MEDS ORDERED: PNEUMONIA PROTOCOL UTILIZED 1 EACH MISC PO PRN (23:37)
[2017-01-21] MEDS ORDERED: IPRATROPIUM-ALBUTEROL 3 ML NEB INHALATION SCH
[2017-01-21] MEDS: SODIUM CHLORIDE 0.9% 1,000 ML IV SCH ×2 (00:20→08:59)
[2017-01-21] MEDS: ALPRAZolam 0.25 MG TAB PO PRN ×2 (01:53→22:58)
[2017-01-21] MEDS: PIPERACILLIN-TAZOBACTAM 3.375 GM in DEXTROSE/WATER 1 50ML.BAG IVPB SCH ×4 (01:55→22:58)
[2017-01-21] MEDS: guaiFENesin-DM 100-10MG/5ML 10 ML CUP PO PRN (02:02)
[2017-01-21] MEDS: MENTHOL-ZINC OXIDE OINT 113 GM TUBE TOPICAL SCH ×3 (02:02→22:58)
[2017-01-21] MEDS: ALBUTEROL NEBULIZED 2.5 MG/3 ML INHALATION PRN ×3 (03:23→20:05)
[2017-01-21] MEDS ORDERED: VANCOMYCIN 1,000 MG in SODIUM CHLORIDE 0.9% 250 ML IVPB SCH (04:00)
[2017-01-21] MEDS: BUDESONIDE 0.5 MG/2 ML NEBU INHALATION SCH ×2 (07:41→20:05)
[2017-01-21] MEDS: IPRATROPIUM-ALBUTEROL 3 ML NEB INHALATION SCH ×2 (07:43→11:21)
[2017-01-21] MEDS: HYDROcodone/APAP 5-325MG 1 EACH TAB PO PRN ×2 (08:42→16:33)
[2017-01-21] MEDS: ACETAMINOPHEN TAB 325 MG TAB PO PRN ×2 (08:44→16:32)
[2017-01-21] MEDS: FOLIC ACID 1 MG TAB PO SCH (08:45)
[2017-01-21] MEDS: levETIRAcetam 500 MG TAB PO SCH (08:45)
[2017-01-21] MEDS: THIAMINE 100 MG TAB PO SCH (08:45)
[2017-01-21] MEDS: amLODIPine 10 MG TAB PO SCH (08:45)
[2017-01-21] MEDS: MULTIVITAMINS, THERA 1 EACH TAB PO SCH (08:45)
[2017-01-21] MEDS: FAMOTIDINE 20 MG TAB PO SCH ×2 (08:46→20:42)
[2017-01-21] MEDS: ASPIRIN 81 MG CHEW PO SCH (08:52)
[2017-01-21] MEDS ORDERED: NICOTINE 14MG/24HR PATCH TRANSDERM SCH (09:00)
--- NOTE | 2017-01-21 09:34 | P.CONS ---
History of Present Illness - Reason for Consult Consult date: 01/21/17 Recurrent pneumonia - History of Present Illness This is a 56-year-old male who is currently at [facility] for subacute rehab. He had a multiple admissions each month since October of this year and treated for acute exacerbation of COPD and pneumonia. On his last admission December 15 through December 21, he was treated for acute exacerbation of COPD, ALLERGIC asthma and elevated IgE and he was discharged on Levaquin for 7 more days. He was seen by Dr. 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 His most recent CTA of the chest on September 27 revealed consolidation superior segment of the left lower lobe suspicious for pneumonia. This is a finding from August 2015. Underlying mass cannot be excluded. This should be followed to clearing. No acute pulmonary embolism. Patient was brought into [facility] emergency center by EMS with concern for pneumonia. He has had increased sputum production for the past 1-2 days and she increased shortness of breath. Patient states he is always short of breath. He also developed fever yesterday afternoon. Chest x-ray showed new CHF. Bilateral lower lobe pneumonia not ruled out. Patient states he has had decreased appetite intermittently and has lost 5 pounds in the past week. Temperature initially was 100.2 and is now 102. He was tachycardic. White count 14.6. Albumin 3.1, GFR greater than 60. Urinalysis was clear with nitrate and leukoesterase negative. Blood cultures received as well as urine culture is received. Sputum culture is uncorrected. Patient states he has not currently bringing up any sputum. He does not feel any improvement in his breathing and is always short of breath. He denies having home oxygen. In the emergency center, he received ceftriaxone, Levaquin and Zosyn and has been admitted to the selective care floor. Review of Systems All systems: negative Constitutional: Reports anorexia, Reports chills, Reports chronic pain, Reports fatigue, Reports fever, Reports poor appetite, Reports weakness, Reports weight loss Eyes: denies blurred vision, denies pain Ears, nose, mouth and throat: Denies dental pain, Denies headache, Denies mouth pain, Denies sore throat Cardiovascular: Reports decreased exercise tolerance, Reports dyspnea on exertion, Reports leg edema, Reports shortness of breath, Denies chest pain, Denies lightheadedness, Denies syncope Respiratory: Reports cough, Reports cough with sputum, Reports dyspnea, Reports respiratory infections, Denies hemoptysis, Denies home oxygen Gastrointestinal: Denies abdominal pain, Denies diarrhea, Denies nausea, Denies vomiting Musculoskeletal: Denies myalgias Integumentary: Denies pruritus, Denies rash Neurological: Denies numbness, Denies weakness Psychiatric: Denies anxiety, Denies depression Endocrine: Denies fatigue, Denies weight change Past Medical History Past Medical History: Chest Pain / Angina, COPD, CVA/TIA, Hypertension, Myocardial Infarction ([place]), Pneumonia, Respiratory Disorder Additional Past Medical History / Comment(s): 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 FROZEN SHOULDER SYNDROME in the right shoulder CO-PT STATED IN THE . 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 - Past Family History Mother Family Medical History: Cancer Additional Family Medical History / Comment(s): Pt believes his Mom of Kidney Ca, but not 100% sure. Father Family Medical History: Cancer, COPD, Respiratory Disorder Additional Family Medical History / Comment(s): Melonoma Medications and Allergies Home Medications Medication Instructions Recorded Confirmed Type amLODIPine [Norvasc] 10 mg PO DAILY 02/07/15 01/20/17 History Multivitamins, Thera [Multivitamin 1 tab PO DAILY 11/14/16 01/20/17 History (formulary)] Famotidine [Pepcid] 20 mg PO BID 11/22/16 01/20/17 History ALPRAZolam [Xanax] 0.25 mg PO BID PRN 01/20/17 01/20/17 History Acetaminophen Tab [Tylenol Tab] 650 mg PO Q6H PRN 01/20/17 01/20/17 History Beclomethasone Dipropionate [Qvar 1 puff INHALATION RT-BID 01/20/17 01/20/17 History 80 mcg] Dimethicone/Zinc Oxide [Inzo Zinc 1 applic TOPICAL Q12H 01/20/17 01/20/17 History Oxide Barrier Cream] Folic Acid 1 mg PO DAILY 01/20/17 01/20/17 History HYDROcodone/APAP 5-325MG [[place] 1 tab PO TID PRN 01/20/17 01/20/17 History 5-325] Ipratropium-Albuterol Nebulize 3 ml INHALATION RT-Q4H PRN 01/20/17 01/20/17 History [Duoneb 0.5 mg-3 mg/3 ml Soln] Nicotine 14Mg/24Hr Patch [Habitrol 1 patch TRANSDERM DAILY 01/20/17 01/20/17 History 14Mg/24Hr Patch] guaiFENesin [Mucinex] 600 mg PO Q12HR 01/20/17 01/20/17 History guaiFENesin-DM 100-10MG/5ML 10 ml PO Q4H PRN 01/20/17 01/20/17 History [Robitussin DM] levETIRAcetam [Keppra] 500 mg PO DAILY 01/20/17 01/20/17 History Allergies Allergy/AdvReac Type Severity Reaction Status Date / Time No Known Allergies Allergy Verified 01/20/17 21:38 Physical Exam Vitals: Vital Signs Temp Pulse Pulse Resp BP BP Pulse Ox 01/21/17 08:00 102 F H 126 H 22 129/75 88 L 01/21/17 07:54 102 H 01/21/17 07:43 105 H 92 L 01/21/17 03:39 105 H 16 132/83 90 L 01/21/17 03:27 88 01/21/17 03:17 88 01/21/17 01:38 16 01/21/17 01:12 97.9 F 77 16 120/61 89 L 01/21/17 00:32 125 H 01/21/17 00:27 123 H 01/21/17 00:20 98.1 F 116 H 24 123/68 90 L 01/20/17 23:33 106 H 24 105/56 90 L 01/20/17 22:58 101 H 18 108/55 93 L 01/20/17 21:40 99.3 F 104 H 18 122/67 93 L 01/20/17 20:36 100.2 F H 108 H 26 H 107/67 91 L Intake and Output 01/20/17 01/21/17 01/21/17 22:59 06:59 14:59 Intake Total 450 Output Total 720 Balance -270 Intake: IV 450 Piperacillin-Tazobactam 3 50 .375 gm In Dextrose/Water 1 50ml.bag @ 12.5 mls/hr IVPB ONCE STA Rx#: [id number] Sodium Chloride 0.9% 1, 400 000 ml @ 100 mls/hr IV . Q10H [facility] Rx#:[id number] Output: Urine 720 Other: # Voids 1 Weight 61.235 kg 60.7 kg Gen: This is a 56-year-old male. He is sitting on edge of the bed in tripod position appears to be short of breath with accessory muscle usage. He is able to speak in short sentences. HEENT: Head is atraumatic, normocephalic. Pupils equal, round. Sclerae is anicteric. And patient is in poor order. NECK: Supple. No JVD. No lymphadenopathy. No thyromegaly. LUNGS: Diminished bilaterally with scattered expiratory wheezing. Mild intercostal retractions. HEART: Regular rate and rhythm. No murmur. ABDOMEN: Soft. Bowel sounds are present. No masses. No tenderness. EXTREMITIES: No pedal edema. No calf tenderness. NEUROLOGICAL: Patient is awake, alert and oriented x3. Cranial nerves 2 through 12 are grossly intact. Results Results: Laboratory Results WBC 14.6 k/uL (3.8-10.6) H 01/20/17 20:47 RBC 3.23 m/uL (4.30-5.90) L 01/20/17 20:47 Hgb 10.8 gm/dL (13.0-17.5) L 01/20/17 20:47 Hct 31.4 % (39.0-53.0) L 01/20/17 20:47 MCV 97.3 fL (80.0-100.0) 01/20/17 20:47 MCH 33.5 pg (25.0-35.0) 01/20/17 20:47 MCHC 34.5 g/dL (31.0-37.0) 01/20/17 20:47 RDW 14.4 % (11.5-15.5) 01/20/17 20:47 Plt Count 388 k/uL (150-450) 01/20/17 20:47 Neutrophils % (Manual) 74.5 % 01/20/17 20:47 Band Neutrophils % 6.5 % 01/20/17 20:47 Lymphocytes % (Manual) 12.5 % 01/20/17 20:47 Monocytes % (Manual) 0.5 % 01/20/17 20:47 Eosinophils % (Manual) 1.0 % 01/20/17 20:47 Basophils % (Manual) 2.0 % 01/20/17 20:47 Metamyelocytes % 0.5 % 01/20/17 20:47 Myelocytes % 2.5 % 01/20/17 20:47 Neutrophils # (Manual) 11.8 k/uL (1.3-7.7) H 01/20/17 20:47 Lymphocytes # (Manual) 1.8 k/uL (1.0-4.8) 01/20/17 20:47 Monocytes # (Manual) 0.1 k/uL (0-1.0) 01/20/17 20:47 Eosinophils # (Manual) 0.1 k/uL (0-0.7) 01/20/17 20:47 Basophils # (Manual) 0.3 k/uL (0-0.2) H 01/20/17 20:47 Nucleated RBCs 0 /100 WBC (0-0) 01/20/17 20:47 Manual Slide Review Performed 01/20/17 20:47 Toxic Granulation Present 01/20/17 20:47 Polychromasia Present 01/20/17 20:47 Poikilocytosis (manual Present 01/20/17 20:47 PT 10.5 sec (9.0-12.0) 01/20/17 20:47 INR 1.0 (<1.1) 01/20/17 20:47 APTT 23.9 sec (22.0-30.0) 01/20/17 20:47 Sodium 132 mmol/L (137-145) L 01/20/17 20:47 Potassium 4.5 mmol/L (3.5-5.1) 01/20/17 20:47 Chloride 95 mmol/L (98-107) L 01/20/17 20:47 Carbon Dioxide 29 mmol/L (22-30) 01/20/17 20:47 Anion Gap 8 mmol/L 01/20/17 20:47 BUN 7 mg/dL (9-20) L 01/20/17 20:47 Creatinine 0.60 mg/dL (0.66-1.25) L 01/20/17 20:47 Est GFR (MDRD) Af Amer >60 (>60 ml/min/1.73 sqM) 01/20/17 20:47 Est GFR (MDRD) Non-Af >60 (>60 ml/min/1.73 sqM) 01/20/17 20:47 Glucose 87 mg/dL (74-99) 01/20/17 20:47 Plasma Lactic Acid Gray 1.3 mmol/L (0.7-2.0) 01/20/17 20:47 Calcium 9.4 mg/dL (8.4-10.2) 01/20/17 20:47 Total Bilirubin 0.4 mg/dL (0.2-1.3) 01/20/17 20:47 AST 36 U/L (17-59) 01/20/17 20:47 ALT 68 U/L (21-72) 01/20/17 20:47 Alkaline Phosphatase 62 U/L (38-126) 01/20/17 20:47 NT-Pro-B Natriuret Pep 133 pg/mL 01/20/17 20:30 Total Protein 6.0 g/dL (6.3-8.2) L 01/20/17 20:47 Albumin 3.1 g/dL (3.5-5.0) L 01/20/17 20:47 Urine Color Light Yellow 01/20/17 21:30 Urine Appearance Clear (Clear) 01/20/17 21:30 Urine pH 7.0 (5.0-8.0) 01/20/17 21:30 Ur Specific [place] 1.002 (1.001-1.035) 01/20/17 21:30 Urine Protein Negative (Negative) 01/20/17 21:30 Urine Glucose (UA) Negative (Negative) 01/20/17 21:30 Urine Ketones Negative (Negative) 01/20/17 21:30 Urine Blood Negative (Negative) 01/20/17 21:30 Urine Nitrite Negative (Negative) 01/20/17 21:30 Urine Bilirubin Negative (Negative) 01/20/17 21:30 Urine Urobilinogen <2.0 mg/dL (<2.0) 01/20/17 21:30 Ur Leukocyte Esterase Negative (Negative) 01/20/17 21:30 CBC & Chem 7: 01/20/17 20:47 01/20/17 20:47 Labs: Abnormal Lab Results - Last 24 Hours (Table) 01/20/17 01/20/17 Range/Units 20:47 20:47 WBC 14.6 H (3.8-10.6) k/uL RBC 3.23 L (4.30-5.90) m/uL Hgb 10.8 L (13.0-17.5) gm/dL Hct 31.4 L (39.0-53.0) % Neutrophils # (Manual) 11.8 H (1.3-7.7) k/uL Basophils # (Manual) 0.3 H (0-0.2) k/uL Sodium 132 L (137-145) mmol/L Chloride 95 L (98-107) mmol/L BUN 7 L (9-20) mg/dL Creatinine 0.60 L (0.66-1.25) mg/dL Total Protein 6.0 L (6.3-8.2) g/dL Albumin 3.1 L (3.5-5.0) g/dL Assessment and Plan Plan: This is a 56-year-old male who presented to hospital with bilateral lower lobe pneumonia and sepsis with fever, tachycardia and leukocytosis as well as COPD exacerbation. Patient is currently on Levaquin and Zosyn which will be continued and vancomycin will be added. Legionella and Mycoplasma testing will be ordered. We will add in consult with Dr. King and request bronchoscopy be done with concern for mass and obtain cultures. Blood and urine culture status received. Sputum culture is to be collected. Patient does not have any previous sputum culture available. Continue supportive care. Further recommendations as patient progresses. The above dictated assessment and findings were discussed with Dr. Cuello. The impression and plan of care have been directed as dictated. Josie Dawson nurse practitioner acting as scribe for Dr. Cuello..
[2017-01-21] MEDS ORDERED: IV VANCOMYCIN PER PHARMACY 1 EACH MISC MISCELLANE PRN (10:31)
[2017-01-21] MEDS: VANCOMYCIN 1,000 MG in SODIUM CHLORIDE 0.9% 250 ML IVPB SCH ×2 (13:32→20:05)
--- NOTE | 2017-01-21 13:41 | P.CNPUL ---
History of Present Illness Consult date: 01/21/17 Reason for consult: dyspnea, cough, COPD Chief complaint: Shortness of breath History of present illness: This is a 56-year-old male who presented emergency department from [facility] on [facility] for fevers and shortness of breath. The patient states that he was feeling more short of breath over the last 2-3 days. He states he has not smoked in several months. He is not coughing up any phlegm at this time. The patient states that he doesn't feel like the breathing treatments at the [facility] are helping him. In the emergency department the patient was found to have possible pulmonary vascular congestion, bilateral lower lobe pneumonia not ruled out. The patient's temperature in the emergency department was 100.2. T- max is 102. 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 - Past Family History Mother Family Medical History: Cancer Additional Family Medical History / Comment(s): Pt believes his Mom of Kidney Ca, but not 100% sure. Father Family Medical History: Cancer, COPD, Respiratory Disorder Additional Family Medical History / Comment(s): Melonoma Medications and Allergies Home Medications Medication Instructions Recorded Confirmed Type amLODIPine [Norvasc] 10 mg PO DAILY 02/07/15 01/20/17 History Multivitamins, Thera [Multivitamin 1 tab PO DAILY 11/14/16 01/20/17 History (formulary)] Famotidine [Pepcid] 20 mg PO BID 11/22/16 01/20/17 History ALPRAZolam [Xanax] 0.25 mg PO BID PRN 01/20/17 01/20/17 History Acetaminophen Tab [Tylenol Tab] 650 mg PO Q6H PRN 01/20/17 01/20/17 History Beclomethasone Dipropionate [Qvar 1 puff INHALATION RT-BID 01/20/17 01/20/17 History 80 mcg] Dimethicone/Zinc Oxide [Inzo Zinc 1 applic TOPICAL Q12H 01/20/17 01/20/17 History Oxide Barrier Cream] Folic Acid 1 mg PO DAILY 01/20/17 01/20/17 History HYDROcodone/APAP 5-325MG [[place] 1 tab PO TID PRN 01/20/17 01/20/17 History 5-325] Ipratropium-Albuterol Nebulize 3 ml INHALATION RT-Q4H PRN 01/20/17 01/20/17 History [Duoneb 0.5 mg-3 mg/3 ml Soln] Nicotine 14Mg/24Hr Patch [Habitrol 1 patch TRANSDERM DAILY 01/20/17 01/20/17 History 14Mg/24Hr Patch] guaiFENesin [Mucinex] 600 mg PO Q12HR 01/20/17 01/20/17 History guaiFENesin-DM 100-10MG/5ML 10 ml PO Q4H PRN 01/20/17 01/20/17 History [Robitussin DM] levETIRAcetam [Keppra] 500 mg PO DAILY 01/20/17 01/20/17 History Allergies Allergy/AdvReac Type Severity Reaction Status Date / Time No Known Allergies Allergy Verified 01/20/17 21:38 Physical Exam Osteopathic Statement: *. No significant issues noted on an osteopathic structural exam other than those noted in the History and Physical/Consult. Vitals: Vital Signs Temp Pulse Pulse Resp BP BP Pulse Ox 01/21/17 12:00 97.6 F 56 L 20 102/58 96 01/21/17 11:29 118 H 01/21/17 11:21 118 H 01/21/17 10:00 98.7 F 01/21/17 08:00 102 F H 126 H 22 129/75 88 L 01/21/17 07:54 102 H 01/21/17 07:43 105 H 92 L 01/21/17 03:39 105 H 16 132/83 90 L 01/21/17 03:27 88 01/21/17 03:17 88 01/21/17 01:38 16 01/21/17 01:12 97.9 F 77 16 120/61 89 L 01/21/17 00:32 125 H 01/21/17 00:27 123 H 01/21/17 00:20 98.1 F 116 H 24 123/68 90 L 01/20/17 23:33 106 H 24 105/56 90 L 01/20/17 22:58 101 H 18 108/55 93 L 01/20/17 21:40 99.3 F 104 H 18 122/67 93 L 01/20/17 20:36 100.2 F H 108 H 26 H 107/67 91 L Intake and Output 01/20/17 01/21/17 01/21/17 22:59 06:59 14:59 Intake Total 450 850 Output Total 720 750 Balance -270 100 Intake: IV 450 500 Piperacillin-Tazobactam 3 50 .375 gm In Dextrose/Water 1 50ml.bag @ 12.5 mls/hr IVPB ONCE STA Rx#: [id number] Sodium Chloride 0.9% 1, 400 500 000 ml @ 100 mls/hr IV . Q10H [facility] Rx#:[id number] Intake, IV Titration 50 Amount Piperacillin-Tazobactam 3 50 .375 gm In Dextrose/Water 1 50ml.bag @ 12.5 mls/hr IVPB Q8HR [facility] Rx#: [id number] Oral 300 Output: Urine 720 750 Other: # Voids 1 0 Weight 61.235 kg 60.7 kg 60.7 kg Patient Weight 01/22/17 06:59 Weight 60.7 kg Gen.: Patient is alert and oriented 3, no acute distress Cardiovascular: Regular rate and rhythm, S1/S2 Lungs: Bilateral expiratory wheezing Abdomen: Soft nontender nondistended positive bowel sounds Extremities: No edema Results - Laboratory Findings CBC and BMP: 01/20/17 20:47 01/20/17 20:47 PT/INR, D-dimer PT 10.5 sec (9.0-12.0) 01/20/17 20:47 INR 1.0 (<1.1) 01/20/17 20:47 Abnormal lab findings: Abnormal Labs 01/20/17 01/20/17 20:47 20:47 WBC 14.6 H RBC 3.23 L Hgb 10.8 L Hct 31.4 L Neutrophils # (Manual) 11.8 H Basophils # (Manual) 0.3 H Sodium 132 L Chloride 95 L BUN 7 L Creatinine 0.60 L Total Protein 6.0 L Albumin 3.1 L - Diagnostic Findings Chest x-ray: report reviewed, image reviewed Assessment and Plan Plan: Acute on chronic hypoxic respiratory failure Acute exacerbation of COPD Health care acquired pneumonia / SIRS with sepsis Anemia Hyponatremia ALLERGIC asthma Elevated IgE History of CVA Emphysema Diabetes mellitus type 2 Tobacco abuse in remission Chronic pain syndrome GERD Hypertension O2 to maintain saturation greater than equal to 88% next and Pulmicort Perforomist Albuterol - hold ipratropium due to glaucoma Singulair Steroid taper Incentive spirometry and pulmonary hygiene Sputum culture Stop Nicotine TD, patient has apparently not smoked in several months Blood and urine cultures Check Legionella Mycoplasma and haemophilus Mucinex Repeat limited echo Antibiotics per ID Decrease IV fluids Check CT of the chest GI and DVT prophylaxis: Pepcid and heparin Thank you for this consultation. We will continue to follow along.
[2017-01-21] MEDS: HEPARIN SODIUM,PORCINE 5,000 UNIT/ML 1 ML VIAL SQ SCH ×2 (18:01→22:58)
[2017-01-21] MEDS: methylPREDNISolone SOD SUCCI 40 MG/ML 1 ML VIAL IV SCH ×2 (18:02→22:58)
--- NOTE | 2017-01-21 18:16 | CT ---
EXAMINATION TYPE: CT chest wo con DATE OF EXAM: 01/21/2017 COMPARISON: 09/27/2016 HISTORY: f/u possible lung mass CT DLP: 223.1 mGycm Automated exposure control for dose reduction was used. FINDINGS: Multiple axial sections were obtained from the thoracic inlet to the diaphragm with no contrast. There is a patchy nodular infiltrate in the right middle lobe. There is a similar patchy nodular infi ltrate at the left posterior lung base. There is a small right pleural effusion. There is extensive p ulmonary emphysema. There are a few mediastinal lymph nodes that measure up to 1.5 cm. I see no hilar mass. The bony thor ax appears intact. IMPRESSION: SEVERE PULMONARY EMPHYSEMA. THERE IS EXTENSIVE NODULAR PULMONARY INFILTRATE IN THE RIGHT MIDDLE LOBE AND ALSO AT THE LEFT POSTERIOR LUNG BASE THAT ARE ESSENTIALLY NEW COMPARED TO LAST EXAM AND CONSISTEN T WITH INFLAMMATORY DISEASE. THERE IS A MASSLIKE AREA OF CONSOLIDATION IN THE SUPERIOR SEGMENT LEFT L OWER LOBE ON THE OLD EXAM THAT IS MOSTLY CLEARED ON TODAY'S EXAM. THIS IS CONSISTENT WITH RESOLVING P NEUMONIA. I DO NOT SUSPECT A NEOPLASTIC PROCESS. THERE ARE EXTENSIVE FIBROTIC CHANGES WELL NOTED I N BOTH UPPER LOBES. THERE IS INCREASED MEDIASTINAL ADENOPATHY SINCE LAST EXAM AND I THINK IS DUE TO I NFLAMMATORY DISEASE.
[2017-01-21] MEDS: AZITHROMYCIN 250 MG TAB PO SCH (18:54)
[2017-01-21] MEDS ORDERED: FUROSEMIDE 10 MG/ML 4 ML VIAL IV STA (20:12)
[2017-01-21] MEDS: FORMOTEROL FUMARATE 20 MCG/2 ML NEBU INHALATION SCH (20:17)
--- NOTE | 2017-01-21 20:39 | P.CON ---
Consult Note - . Consult date: 01/21/17 Assessment/Plan:: This is a 56-year-old male who is currently at [facility] for subacute rehab. He had a multiple admissions each month since October of this year and treated for acute exacerbation of COPD and pneumonia. On his last admission December 15 through December 21, he was treated for acute exacerbation of COPD, ALLERGIC asthma and elevated IgE and he was discharged on Levaquin for 7 more days. He was seen by Dr. 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 His most recent CTA of the chest on September 27 revealed consolidation superior segment of the left lower lobe suspicious for pneumonia. This is a finding from August 2015. Underlying mass cannot be excluded. This should be followed to clearing. No acute pulmonary embolism. Patient was brought into [facility] emergency center by EMS with concern for pneumonia. He has had increased sputum production for the past 1-2 days and she increased shortness of breath. Patient states he is always short of breath. He also developed fever yesterday afternoon. Chest x-ray showed new CHF. Bilateral lower lobe pneumonia not ruled out. Patient states he has had decreased appetite intermittently and has lost 5 pounds in the past week. Temperature initially was 100.2 and is now 102. He was tachycardic. White count 14.6. Albumin 3.1, GFR greater than 60. Urinalysis was clear with nitrate and leukoesterase negative. Blood cultures received as well as urine culture is received. Sputum culture is uncorrected. Patient states he has not currently bringing up any sputum. He does not feel any improvement in his breathing and is always short of breath. He denies having home oxygen. In the emergency center, he received ceftriaxone, Levaquin and Zosyn and has been admitted to the selective care floor.Please see consult note as dictated by GALLITO Hammond Josie Eunice. Will proceed with mulitple antibiotics, sputum culture requested, may do well for bronchoscopy. Await cultures. I agree with the evaluation assessment and plan as dictated by GALLITO Dawson.
[2017-01-21] MEDS: MONTELUKAST 10 MG TAB PO SCH (20:42)
[2017-01-21] MEDS ORDERED: LEVOFLOXACIN 750MG-D5W PMX 750 MG in DEXTROSE/WATER 1 150ML.BAG IVPB SCH (21:00)
--- NOTE | 2017-01-21 23:48 | HP ---
DATE OF ADMISSION: 01/20/2017 REASON FOR ADMISSION: Dyspnea and cough. HISTORY OF PRESENT ILLNESS: This is a 56-year-old gentleman who is currently at [facility] after being discharged from the hospital being treated for pneumonia, comes into the hospital with complaints of progressive worsening of difficulty breathing and progressive worsening and difficulty breathing, cough and fevers for the last 2 to 3 days. Patient has been admitted multiple times in the recent few months with chronic obstructive pulmonary disease exacerbations. Patient apparently was treated for bilateral pneumonia at that time as well. Patient comes in the hospital. A chest x-ray was done, which was shows some bilateral airspace disease. The patient states that he has a cough over the same period of time which has been nonproductive in nature. T-max 102 degrees Fahrenheit. Denies having any headaches, blurry vision, nausea, vomiting, diarrhea, or urinary urgency or frequency or focal deficits. REVIEW OF SYSTEMS: Fourteen-point review of system was done; none pertinent other than was mentioned above. Past medical history includes COPD, TIA, hypertension, myocardial infarction. Past surgical history includes orthopedic surgery. Social history includes long-standing tobacco use and however, quit recently. Denies illicit drug use at this time or any alcohol use. Did use marijuana in the past. FAMILY HISTORY: Pertinent for renal CA in his mother. Home medications include: 1. Norvasc. 2. Multivitamin. 3. Pepcid. 4. Xanax. 5. Tylenol. 6. ( ) Barrier cream. 7. Folic acid. 8. Rand. 9. Albuterol. 10. Guaifenesin. 11. Habitrol. 12. Keppra. Doses were reviewed and appropriately reconciled. ALLERGIES: No known drug allergies PHYSICAL EXAM: VITALS: Temperature is 97.6, however T-max 102, heart rate 118, respiratory rate 20, blood pressure 102/58, saturating 96% on 3 liters of supplemental oxygen. GENERAL APPEARANCE: Alert, oriented x3. Does not appear to be in distress. HEART: S1, S2 heard. Regular rate and rhythm. No murmurs appreciated. LUNGS: Bilateral wheezing noted predominantly on prolonged expiration. No rhonchi or crackles. Neck is supple. No JVD. HEENT: Head is atraumatic, normocephalic. Pupils are equal, round, and reactive to light and accommodation. ABDOMEN: Soft, nontender, no organomegaly. Bowel sounds are intact. No lower extremity edema appreciated. NEUROLOGIC EXAM: No focal motor or sensory deficits noted. Cranial nerves II through XII grossly intact. Laboratory data include hemoglobin 10.8, hematocrit 31.4, white count of 14.6, platelets of 38. Sodium 132, potassium 4.4, chloride 95, bicarb 29, BUN 7, creatinine ( ). ASSESSMENT AND PLAN: 1. Sepsis secondary to bilateral pneumonia that is healthcare acquired in nature. 2. Acute on chronic hypoxic respiratory failure secondary to above. 3. Acute exacerbation of chronic obstructive pulmonary disease. 4. Anemia of unknown etiology; however, this appears to be chronic. 5. History of chronic obstructive pulmonary disease. 6. Gastroesophageal reflux disease. 7. Hypertension. 8. Chronic pain syndrome. 9. Diabetes mellitus, type II. PLAN: Continue with breathing treatments and Pulmicort inhalation. Will change antibiotic coverage to Zosyn and vancomycin, which will cover health care acquired organisms. If atypical organisms are to be covered, I will start the patient on Zithromax; however, features until Legionella and mycoplasma ruled out. A CT of the chest was ordered, which is appropriate. DVT and GI prophylaxis. Encourage pulmonary hygiene. Will follow up.
[2017-01-22] MEDS: HYDROcodone/APAP 5-325MG 1 EACH TAB PO PRN ×3 (04:11→23:02)
[2017-01-22] MEDS: VANCOMYCIN 1,000 MG in SODIUM CHLORIDE 0.9% 250 ML IVPB SCH ×3 (04:11→20:27)
[2017-01-22] MEDS: ALBUTEROL NEBULIZED 2.5 MG/3 ML INHALATION PRN ×5 (04:56→20:08)
[2017-01-22 07:07] LABS: ALT 43 U/L (21-72); AST 21 U/L (17-59); Alkaline Phosphatase 56 U/L (38-126); Anion Gap 9 mmol/L; Blood Urea Nitrogen 13 mg/dL (9-20); Calcium 8.8 mg/dL (8.4-10.2); Carbon Dioxide 27 mmol/L (22-30); Chloride 98 mmol/L (98-107); Glucose 166 mg/dL (74-99); Non-African American GFR(MDRD) >60 (>60 ml/min/1.73 sqM); Potassium 3.9 mmol/L (3.5-5.1); Sodium 134 mmol/L (137-145); Total Bilirubin 0.3 mg/dL (0.2-1.3); Total Protein 5.6 g/dL (6.3-8.2)
[2017-01-22 07:11] LABS: Basophils % (A) 0 %; CHCM 34.9; Eosinophils % (A) 0 %; HCT 27.4 % (39.0-53.0); HDW 3.42; Luc # (Auto) 0.14; Luc % (Auto) 1; Lymphocytes # (A) 0.9 k/uL (1.0-4.8); Lymphocytes % (A) 7 %; MCHC 33.8 g/dL (31.0-37.0); MCV 97.7 fL (80.0-100.0); Mean Platelet Volume 6.6; Monocytes # (A) 0.4 k/uL (0-1.0); Monocytes % (A) 3 %; Neutrophils # (A) 12.8 k/uL (1.3-7.7); Neutrophils % (A) 90 %; Poikilocytosis Slight; RBC 2.81 m/uL (4.30-5.90); RDW 14.1 % (11.5-15.5); WBC 14.2 k/uL (3.8-10.6); WBC (Perox) 14.75
[2017-01-22 07:22] LABS: HGB 9.3 gm/dL (13.0-17.5)
[2017-01-22] MEDS: BUDESONIDE 0.5 MG/2 ML NEBU INHALATION SCH ×2 (08:31→20:08)
[2017-01-22] MEDS: FORMOTEROL FUMARATE 20 MCG/2 ML NEBU INHALATION SCH ×2 (08:31→20:08)
[2017-01-22] MEDS: PIPERACILLIN-TAZOBACTAM 3.375 GM in DEXTROSE/WATER 1 50ML.BAG IVPB SCH ×2 (08:35→16:07)
[2017-01-22] MEDS: levETIRAcetam 500 MG TAB PO SCH (08:37)
[2017-01-22] MEDS: FOLIC ACID 1 MG TAB PO SCH (08:38)
[2017-01-22] MEDS: ASPIRIN 81 MG CHEW PO SCH (08:38)
[2017-01-22] MEDS: MULTIVITAMINS, THERA 1 EACH TAB PO SCH (08:39)
[2017-01-22] MEDS: THIAMINE 100 MG TAB PO SCH (08:39)
[2017-01-22] MEDS: amLODIPine 10 MG TAB PO SCH (08:40)
[2017-01-22] MEDS: HEPARIN SODIUM,PORCINE 5,000 UNIT/ML 1 ML VIAL SQ SCH ×2 (08:40→16:07)
[2017-01-22] MEDS: FAMOTIDINE 20 MG TAB PO SCH ×2 (08:40→20:27)
[2017-01-22] MEDS: methylPREDNISolone SOD SUCCI 40 MG/ML 1 ML VIAL IV SCH ×2 (09:15→16:08)
--- NOTE | 2017-01-22 10:11 | ECHOF ---
Referral Reason:new CHF, re-eval LVEF and RVSP MEASUREMENTS -------- HEIGHT: 152.4 cm WEIGHT: 60.3 kg BP: 130/50 RVIDd: 2.6 cm (< 3.3) IVSd: 1.2 cm (0.6 - 1.1) LVIDd: 4.9 cm (3.9 - 5.3) LVPWd: 1.0 cm (0.6 - 1.1) IVSs: 1.3 cm LVIDs: 3.1 cm LVPWs: 1.3 cm LA Diam: 3.6 cm (2.7 - 3.8) RAP: 5.00 mmHg RVSP: 13.69 mmHg FINDINGS -------- Sinus rhythm. Limited Study for LV Function and RVSP. The right ventricle is normal in size. Mild tricuspid regurgitation present. There is no evidence of pulmonary hypertension. The right ventricular systolic pressure, as measured by Doppler, is 13.69mmHg. CONCLUSIONS -------- 1. Limited Study for LV Function and RVSP. 2. The right ventricle is normal in size. 3. Mild tricuspid regurgitation present. 4. There is no evidence of pulmonary hypertension. 5. The right ventricular systolic pressure, as measured by Doppler, is 13.69mmHg. GENERAL DENTIST/OWNER: Madelaine Enamorado RDCS
[2017-01-22] MEDS: MENTHOL-ZINC OXIDE OINT 113 GM TUBE TOPICAL SCH ×2 (12:51→23:03)
[2017-01-22] MEDS: AZITHROMYCIN 250 MG TAB PO SCH (12:51)
[2017-01-22] MEDS: ALPRAZolam 0.25 MG TAB PO PRN ×2 (13:57→23:03)
--- NOTE | 2017-01-22 18:25 | P.PN ---
Subjective REASON FOR ADMISSION: Dyspnea and cough. HISTORY OF PRESENT ILLNESS: This is a 56-year-old gentleman who is currently at [facility] after being discharged from the hospital being treated for pneumonia, comes into the hospital with complaints of progressive worsening of difficulty breathing and progressive worsening and difficulty breathing, cough and fevers for the last 2 to 3 days. Patient has been admitted multiple times in the recent few months with chronic obstructive pulmonary disease exacerbations. Patient apparently was treated for bilateral pneumonia at that time as well. Patient comes in the hospital. A chest x-ray was done, which was shows some bilateral airspace disease. The patient states that he has a cough over the same period of time which has been nonproductive in nature. T-max 102 degrees Fahrenheit. Denies having any headaches, blurry vision, nausea, vomiting, diarrhea, or urinary urgency or frequency or focal deficits. 01/22/17 doing well today states to have a cough, no chills, fevers, nausea, vomiting diarrhea PHYSICAL EXAM: GENERAL APPEARANCE: Alert, oriented x3. Does not appear to be in distress. HEART: S1, S2 heard. Regular rate and rhythm. No murmurs appreciated. LUNGS: Bilateral wheezing noted predominantly on prolonged expiration. improved air movement Oral cavity no thrush noted No rhonchi or crackles. Neck is supple. No JVD. HEENT: Head is atraumatic, normocephalic. Pupils are equal, round, and reactive to light and accommodation. ABDOMEN: Soft, nontender, no organomegaly. Bowel sounds are intact. No lower extremity edema appreciated. NEUROLOGIC EXAM: No focal motor or sensory deficits noted. Cranial nerves II through XII grossly intact. Objective - Vital Signs Vital signs: Vital Signs Temp 96.8 F L 01/22/17 16:00 Pulse 95 01/22/17 16:06 Resp 18 01/22/17 16:00 BP 107/60 01/22/17 16:00 Pulse Ox 99 01/22/17 16:00 Intake & Output 01/21/17 01/22/17 01/22/17 18:59 06:59 18:59 Intake Total 850 600 Output Total 1550 1455 Balance -700 -1455 600 Weight 60.7 kg 59.7 kg Intake: IV 500 Sodium Chloride 0.9% 1, 500 000 ml @ 20 mls/hr IV . Q24H [facility] Rx#:[id number] Intake, IV Titration 50 Amount Piperacillin-Tazobactam 3 50 .375 gm In Dextrose/Water 1 50ml.bag @ 12.5 mls/hr IVPB Q8HR [facility] Rx#: [id number] Oral 300 600 Output: Urine 1550 1455 Other: Voiding Method Toilet Toilet Urinal Urinal # Voids 0 1 1 - Labs CBC & Chem 7: 01/22/17 06:17 01/22/17 06:17 Labs: Abnormal Lab Results - Last 24 Hours (Table) 01/22/17 01/22/17 Range/Units 06:17 06:17 WBC 14.2 H (3.8-10.6) k/uL RBC 2.81 L (4.30-5.90) m/uL Hgb 9.3 L D (13.0-17.5) gm/dL Hct 27.4 L (39.0-53.0) % Neutrophils # 12.8 H (1.3-7.7) k/uL Lymphocytes # 0.9 L (1.0-4.8) k/uL Sodium 134 L (137-145) mmol/L Creatinine 0.50 L (0.66-1.25) mg/dL Glucose 166 H (74-99) mg/dL Total Protein 5.6 L (6.3-8.2) g/dL Albumin 2.7 L (3.5-5.0) g/dL Microbiology - Last 24 Hours (Table) 01/20/17 21:30 Urine Culture - Final Urine,Voided 01/20/17 20:47 Blood Culture - Preliminary Blood No Growth after 24 hours Assessment and Plan Plan: ASSESSMENT AND PLAN: 1. Sepsis secondary to bilateral pneumonia that is healthcare acquired in nature. 2. Acute on chronic hypoxic respiratory failure secondary to above. 3. Acute exacerbation of chronic obstructive pulmonary disease. 4. Anemia of unknown etiology; however, this appears to be chronic. 5. History of chronic obstructive pulmonary disease. 6. Gastroesophageal reflux disease. 7. Hypertension. 8. Chronic pain syndrome. 9. Diabetes mellitus, type II. PLAN: CT chest is reviewed concern for BOOP poss. bronchoscopy discussed with Dr King High risk , may need intubation prior await mycoplasma , legionella titers continue abx coverage .
[2017-01-22] MEDS: MONTELUKAST 10 MG TAB PO SCH (20:27)
--- NOTE | 2017-01-22 21:51 | P.PN ---
Subjective Principal diagnosis: AECOPD/Asthma Patient seen and examined. Patient states this is the best he has felt in a long time. He says his breathing is improved today. He has been afebrile. He denies cough, fever, chills. He was able to walk to the bathroom without SOB. Objective - Vital Signs Vital signs: Vital Signs Temp 96.9 F L 01/22/17 20:00 Pulse 91 01/22/17 20:34 Resp 20 01/22/17 20:00 BP 99/60 01/22/17 20:00 Pulse Ox 98 01/22/17 20:00 Intake & Output 01/22/17 01/22/17 01/23/17 06:59 18:59 06:59 Intake Total 600 120 Output Total 1455 Balance -1455 600 120 Weight 59.7 kg Intake: Oral 600 120 Output: Urine 1455 Other: Voiding Method Toilet Toilet Toilet Urinal Urinal Urinal # Voids 1 1 - Exam Gen.: Patient is alert and oriented 3, no acute distress Cardiovascular: Regular rate and rhythm, S1/S2 Lungs: Diminished, otherwise clear Abdomen: Soft nontender nondistended positive bowel sounds Extremities: No edema - Labs CBC & Chem 7: 01/22/17 06:17 01/22/17 06:17 Labs: Abnormal Lab Results - Last 24 Hours (Table) 01/22/17 01/22/17 Range/Units :17 06:17 WBC 14.2 H (3.8-10.6) k/uL RBC 2.81 L (4.30-5.90) m/uL Hgb 9.3 L D (13.0-17.5) gm/dL Hct 27.4 L (39.0-53.0) % Neutrophils # 12.8 H (1.3-7.7) k/uL Lymphocytes # 0.9 L (1.0-4.8) k/uL Sodium 134 L (137-145) mmol/L Creatinine 0.50 L (0.66-1.25) mg/dL Glucose 166 H (74-99) mg/dL Total Protein 5.6 L (6.3-8.2) g/dL Albumin 2.7 L (3.5-5.0) g/dL Microbiology - Last 24 Hours (Table) 01/20/17 21:30 Urine Culture - Final Urine,Voided 01/20/17 20:47 Blood Culture - Preliminary Blood No Growth after 24 hours Assessment and Plan Plan: Acute on chronic hypoxic respiratory failure Acute exacerbation of COPD/Asthma - allergic type, severe persistent Health care acquired pneumonia Probable hypersensitivity pneumonitis with elevated IgE and positive RAST 11/20 SIRS with sepsis Anemia Hyponatremia ALLERGIC asthma Elevated IgE History of CVA Emphysema Diabetes mellitus type 2 Tobacco abuse in remission Chronic pain syndrome GERD Hypertension O2 to maintain saturation greater than equal to 88% next and Pulmicort Perforomist Albuterol - hold ipratropium due to glaucoma Singulair Steroid taper - recommend PO Prednisone 60 mg daily for 4 weeks, then taper Incentive spirometry and pulmonary hygiene Sputum culture Stop Nicotine TD, patient has apparently not smoked in several months Blood and urine cultures Pendingn Legionella Mycoplasma and haemophilus Mucinex Repeat limited echo Antibiotics per ID Decrease IV fluids GI and DVT prophylaxis: Pepcid and heparin Patient would benefit from Xolair, this can be arranged as an outpatient, however, the patient has yet to follow up in the pulmonary office.
[2017-01-23] MEDS: HEPARIN SODIUM,PORCINE 5,000 UNIT/ML 1 ML VIAL SQ SCH ×4 (00:33→17:40)
[2017-01-23] MEDS: methylPREDNISolone SOD SUCCI 40 MG/ML 1 ML VIAL IV SCH ×3 (00:33→20:09)
[2017-01-23] MEDS: PIPERACILLIN-TAZOBACTAM 3.375 GM in DEXTROSE/WATER 1 50ML.BAG IVPB SCH ×3 (00:33→17:38)
[2017-01-23] MEDS ORDERED: VANCOMYCIN TROUGH DUE 1 EACH MISC MISCELLANE ONE (03:00)
[2017-01-23] MEDS: VANCOMYCIN 1,000 MG in SODIUM CHLORIDE 0.9% 250 ML IVPB SCH ×3 (04:03→21:45)
[2017-01-23] MEDS: HYDROcodone/APAP 5-325MG 1 EACH TAB PO PRN ×2 (04:28→13:06)
[2017-01-23] MEDS: BUDESONIDE 0.5 MG/2 ML NEBU INHALATION SCH ×2 (08:22→19:49)
[2017-01-23] MEDS: ALBUTEROL NEBULIZED 2.5 MG/3 ML INHALATION PRN ×4 (08:22→19:49)
[2017-01-23] MEDS: FORMOTEROL FUMARATE 20 MCG/2 ML NEBU INHALATION SCH ×2 (08:22→19:49)
[2017-01-23] MEDS: FAMOTIDINE 20 MG TAB PO SCH ×2 (08:59→20:08)
[2017-01-23] MEDS: amLODIPine 10 MG TAB PO SCH (08:59)
[2017-01-23] MEDS: MULTIVITAMINS, THERA 1 EACH TAB PO SCH (09:00)
[2017-01-23] MEDS: FOLIC ACID 1 MG TAB PO SCH (09:00)
[2017-01-23] MEDS: levETIRAcetam 500 MG TAB PO SCH (09:00)
[2017-01-23] MEDS: AZITHROMYCIN 250 MG TAB PO SCH (09:00)
[2017-01-23] MEDS: ASPIRIN 81 MG CHEW PO SCH (09:01)
[2017-01-23] MEDS: THIAMINE 100 MG TAB PO SCH (09:01)
[2017-01-23] MEDS: MENTHOL-ZINC OXIDE OINT 113 GM TUBE TOPICAL SCH (09:01)
--- NOTE | 2017-01-23 11:40 | P.PN ---
Subjective Principal diagnosis: Acute exacerbation of COPD/asthma Patient seen and examined. Patient states his breathing is better today. He was able to ambulate to the bathroom without issues. The patient is concerned about his insurance coverage. He is wanting to go back to [facility] for rehab. Objective - Vital Signs Vital signs: Vital Signs Temp 97.4 F L 01/23/17 08:00 Pulse 100 01/23/17 08:50 Resp 18 01/23/17 08:00 BP 108/61 01/23/17 08:00 Pulse Ox 97 01/23/17 08:00 Intake & Output 01/22/17 01/23/17 01/23/17 18:59 06:59 18:59 Intake Total 600 120 120 Balance 600 120 120 Weight 61.4 kg Intake: Oral 600 120 120 Other: Voiding Method Toilet Urinal Urinal Urinal # Voids 1 1 - Exam Gen.: Patient is alert and oriented 3, no acute distress Cardiovascular: Regular rate and rhythm, S1/S2 Lungs: Diminished, otherwise clear Abdomen: Soft nontender nondistended positive bowel sounds Extremities: No edema - Labs CBC & Chem 7: 01/22/17 06:17 01/22/17 06:17 Labs: Microbiology - Last 24 Hours (Table) 01/20/17 20:47 Blood Culture - Preliminary Blood No Growth after 48 hours 01/20/17 21:30 Urine Culture - Final Urine,Voided Assessment and Plan Plan: Acute on chronic hypoxic respiratory failure Acute exacerbation of COPD/Asthma - allergic type, severe persistent Health care acquired pneumonia Probable hypersensitivity pneumonitis with elevated IgE and positive RAST 4/4 SIRS with sepsis Anemia Hyponatremia ALLERGIC asthma Elevated IgE History of CVA Emphysema Diabetes mellitus type 2 Tobacco abuse in remission Chronic pain syndrome GERD Hypertension O2 to maintain saturation greater than equal to 88% next and Pulmicort Perforomist Albuterol - hold ipratropium due to glaucoma Singulair Steroid taper - recommend PO Prednisone 60 mg daily for 4 weeks, then taper Incentive spirometry and pulmonary hygiene Sputum culture pending Blood and urine cultures negative to date Negative Legionella, pending Mycoplasma and haemophilus Mucinex Repeat limited echo Antibiotics per ID Decrease IV fluids GI and DVT prophylaxis: Pepcid and heparin Patient would benefit from Xolair, this can be arranged as an outpatient, however, the patient has yet to follow up in the pulmonary office.
[2017-01-23] MEDS: ALPRAZolam 0.25 MG TAB PO PRN (13:06)
--- NOTE | 2017-01-23 17:23 | P.PN ---
Subjective REASON FOR ADMISSION: Dyspnea and cough. HISTORY OF PRESENT ILLNESS: This is a 56-year-old gentleman who is currently at [facility] after being discharged from the hospital being treated for pneumonia, comes into the hospital with complaints of progressive worsening of difficulty breathing and progressive worsening and difficulty breathing, cough and fevers for the last 2 to 3 days. Patient has been admitted multiple times in the recent few months with chronic obstructive pulmonary disease exacerbations. Patient apparently was treated for bilateral pneumonia at that time as well. Patient comes in the hospital. A chest x-ray was done, which was shows some bilateral airspace disease. The patient states that he has a cough over the same period of time which has been nonproductive in nature. T-max 102 degrees Fahrenheit. Denies having any headaches, blurry vision, nausea, vomiting, diarrhea, or urinary urgency or frequency or focal deficits. 01/22/17 doing well today states to have a cough, no chills, fevers, nausea, vomiting diarrhea 01/23/17 doing well is hypoxic on amublation noted to have a cough with minimal sputum production no fevers, chills, nausea, vomiting, diarrhea noted PHYSICAL EXAM: GENERAL APPEARANCE: Alert, oriented x3. Does not appear to be in distress. HEART: S1, S2 heard. Regular rate and rhythm. No murmurs appreciated. LUNGS: diminished, however no rhochi wheezing or crackles. improved air movement Oral cavity no thrush noted No rhonchi or crackles. Neck is supple. No JVD. HEENT: Head is atraumatic, normocephalic. Pupils are equal, round, and reactive to light and accommodation. ABDOMEN: Soft, nontender, no organomegaly. Bowel sounds are intact. No lower extremity edema appreciated. NEUROLOGIC EXAM: No focal motor or sensory deficits noted. Cranial nerves II through XII grossly intact. Objective - Vital Signs Vital signs: Vital Signs Temp 97.6 F 01/23/17 12:00 Pulse 80 01/23/17 15:45 Resp 18 01/23/17 12:00 BP 110/64 01/23/17 12:00 Pulse Ox 95 01/23/17 12:00 Intake & Output 01/22/17 01/23/17 01/23/17 18:59 06:59 18:59 Intake Total 600 120 240 Balance 600 120 240 Weight 61.4 kg Intake: Oral 600 120 240 Other: Voiding Method Toilet Urinal Urinal Urinal # Voids 1 1 2 - Labs CBC & Chem 7: 01/22/17 06:17 01/22/17 06:17 Labs: Microbiology - Last 24 Hours (Table) 01/20/17 20:47 Blood Culture - Preliminary Blood No Growth after 48 hours Assessment and Plan Plan: ASSESSMENT AND PLAN: 1. Sepsis secondary to bilateral pneumonia that is healthcare acquired in nature. 2. Acute on chronic hypoxic respiratory failure secondary to above. 3. Acute exacerbation of chronic obstructive pulmonary disease. 4. Anemia of unknown etiology; however, this appears to be chronic. 5. History of chronic obstructive pulmonary disease. 6. Gastroesophageal reflux disease. 7. Hypertension. 8. Chronic pain syndrome. 9. Diabetes mellitus, type II. PLAN: concern for BOOP. Treat with 4 weeks prednisone 60mg per Pulmonary poss. bronchoscopy atypical organisms negative needs placement Pt is homeless, and has no financial resources due to need to o2, unsafe to be discharged .
[2017-01-23] MEDS: MONTELUKAST 10 MG TAB PO SCH (20:08)
[2017-01-24] MEDS: MENTHOL-ZINC OXIDE OINT 113 GM TUBE TOPICAL SCH ×3 (00:30→22:51)
[2017-01-24] MEDS: HEPARIN SODIUM,PORCINE 5,000 UNIT/ML 1 ML VIAL SQ SCH ×4 (01:30→22:51)
[2017-01-24] MEDS: PIPERACILLIN-TAZOBACTAM 3.375 GM in DEXTROSE/WATER 1 50ML.BAG IVPB SCH ×3 (01:30→18:48)
[2017-01-24 01:37] VITALS: RESP 18
[2017-01-24] MEDS: HYDROcodone/APAP 5-325MG 1 EACH TAB PO PRN ×3 (04:07→22:59)
[2017-01-24] MEDS: ALPRAZolam 0.25 MG TAB PO PRN ×2 (04:08→22:59)
[2017-01-24] MEDS: VANCOMYCIN 1,000 MG in SODIUM CHLORIDE 0.9% 250 ML IVPB SCH ×3 (05:42→22:50)
[2017-01-24 06:35] LABS: Anion Gap 7 mmol/L; Blood Urea Nitrogen 13 mg/dL (9-20); Calcium 9.1 mg/dL (8.4-10.2); Carbon Dioxide 28 mmol/L (22-30); Chloride 103 mmol/L (98-107); Glucose 117 mg/dL (74-99); Non-African American GFR(MDRD) >60 (>60 ml/min/1.73 sqM); Potassium 3.8 mmol/L (3.5-5.1); Sodium 138 mmol/L (137-145)
[2017-01-24] MEDS: BUDESONIDE 0.5 MG/2 ML NEBU INHALATION SCH ×2 (06:50→19:38)
[2017-01-24] MEDS: FORMOTEROL FUMARATE 20 MCG/2 ML NEBU INHALATION SCH ×2 (06:50→19:38)
[2017-01-24] MEDS: ALBUTEROL NEBULIZED 2.5 MG/3 ML INHALATION PRN ×4 (06:50→19:38)
[2017-01-24] MEDS: ASPIRIN 81 MG CHEW PO SCH (10:26)
[2017-01-24] MEDS: amLODIPine 10 MG TAB PO SCH (10:26)
[2017-01-24] MEDS: levETIRAcetam 500 MG TAB PO SCH (10:26)
[2017-01-24] MEDS: FAMOTIDINE 20 MG TAB PO SCH ×2 (10:26→20:13)
[2017-01-24] MEDS: methylPREDNISolone SOD SUCCI 40 MG/ML 1 ML VIAL IV SCH (10:27)
[2017-01-24] MEDS: MULTIVITAMINS, THERA 1 EACH TAB PO SCH (12:52)
[2017-01-24] MEDS: THIAMINE 100 MG TAB PO SCH (12:52)
[2017-01-24] MEDS: FOLIC ACID 1 MG TAB PO SCH (12:52)
[2017-01-24 15:53] VITALS: BMI 22.4
--- NOTE | 2017-01-24 18:11 | P.PN ---
Subjective REASON FOR ADMISSION: Dyspnea and cough. HISTORY OF PRESENT ILLNESS: This is a 56-year-old gentleman who is currently at [facility] after being discharged from the hospital being treated for pneumonia, comes into the hospital with complaints of progressive worsening of difficulty breathing and progressive worsening and difficulty breathing, cough and fevers for the last 2 to 3 days. Patient has been admitted multiple times in the recent few months with chronic obstructive pulmonary disease exacerbations. Patient apparently was treated for bilateral pneumonia at that time as well. Patient comes in the hospital. A chest x-ray was done, which was shows some bilateral airspace disease. The patient states that he has a cough over the same period of time which has been nonproductive in nature. T-max 102 degrees Fahrenheit. Denies having any headaches, blurry vision, nausea, vomiting, diarrhea, or urinary urgency or frequency or focal deficits. 01/22/17 doing well today states to have a cough, no chills, fevers, nausea, vomiting diarrhea 01/23/17 doing well is hypoxic on amublation noted to have a cough with minimal sputum production no fevers, chills, nausea, vomiting, diarrhea noted 01/24/17 doing well concerned about his transfer to [facility] in [place] Breathing is improved PHYSICAL EXAM: GENERAL APPEARANCE: Alert, oriented x3. Does not appear to be in distress. HEART: S1, S2 heard. Regular rate and rhythm. No murmurs appreciated. LUNGS: diminished, however no rhochi wheezing or crackles. improved air movement Oral cavity no thrush noted No rhonchi or crackles. Neck is supple. No JVD. HEENT: Head is atraumatic, normocephalic. Pupils are equal, round, and reactive to light and accommodation. ABDOMEN: Soft, nontender, no organomegaly. Bowel sounds are intact. No lower extremity edema appreciated. NEUROLOGIC EXAM: No focal motor or sensory deficits noted. Cranial nerves II through XII grossly intact. Objective - Vital Signs Vital signs: Vital Signs Temp 97.6 F 01/24/17 08:00 Pulse 91 01/24/17 15:42 Resp 18 01/24/17 04:00 BP 123/70 01/24/17 12:00 Pulse Ox 97 01/24/17 15:42 Intake & Output 01/23/17 01/24/17 01/24/17 18:59 06:59 18:59 Intake Total 480 300 960 Output Total 500 Balance 480 -200 960 Weight 62.9 kg 62.9 kg Intake: IV 300 Piperacillin-Tazobactam 3 50 .375 gm In Dextrose/Water 1 50ml.bag @ 12.5 mls/hr IVPB Q8HR [facility] Rx#: [id number] Vancomycin 1,000 mg In 250 Sodium Chloride 0.9% 250 ml @ 125 mls/hr IVPB Q8H [facility] Rx#:[id number] Oral 480 960 Output: Urine 500 Other: Voiding Method Urinal Toilet Urinal # Voids 2 1 1 - Labs CBC & Chem 7: 01/22/17 06:17 01/24/17 06:05 Labs: Abnormal Lab Results - Last 24 Hours (Table) 01/24/17 Range/Units 06:05 Creatinine 0.45 L (0.66-1.25) mg/dL Glucose 117 H (74-99) mg/dL Microbiology - Last 24 Hours (Table) 01/20/17 20:47 Blood Culture - Preliminary Blood No Growth after 72 hours Assessment and Plan Plan: ASSESSMENT AND PLAN: 1. Sepsis secondary to bilateral pneumonia that is healthcare acquired in nature. 2. Acute on chronic hypoxic respiratory failure secondary to above. 3. Acute exacerbation of chronic obstructive pulmonary disease. 4. Anemia of unknown etiology; however, this appears to be chronic. 5. History of chronic obstructive pulmonary disease. 6. Gastroesophageal reflux disease. 7. Hypertension. 8. Chronic pain syndrome. 9. Diabetes mellitus, type II. PLAN: Day 4 of HCAP therapy dc on augmentin concern for BOOP. Treat with 4 weeks prednisone 60mg per Pulmonary atypical organisms negative needs placement. dc to [facility] Pt is homeless, and has no financial resources due to need to o2, unsafe to be discharged .
--- NOTE | 2017-01-24 18:25 | PN ---
The patient is a 56-year-old male who came in from [facility] with worsening shortness of breath. Patient is seen today sitting up at the bedside, is awake and alert, breathing without any difficulty. Patient is afebrile, hemodynamically stable, intermittently he is tachycardic; however, he is on albuterol updrafts. The patient is frustrated. It appears the discharge plan will send him to some type of home in [place], he does not want to go down there. However does appear the patient is homeless. He is frequently in the hospital between [facility]. Physical exam, vital signs, temp is 97.6, heart rate 100, respiratory rate 18, blood pressure is 124/71, O2 sats 91% on 3 liters O2 via nasal cannula. HEENT: Head is normocephalic, atraumatic. NECK: Supple. Trachea is midline. LUNGS: Decreased, more so at the bases HEART: S1 and S2 are heard. Not tachycardic. ABDOMEN: Soft. Bowel sounds are heard. EXTREMITIES: With no edema. NEUROLOGIC: The patient is awake, alert. LABS: Sodium is 138, potassium 3.8, chloride 103, CO2 is 28, anion gap is 7, BUN is 13, creatinine 0.45. Glucose is 117. Calcium is 9.1. No new imaging to review. IMPRESSION: 1. Acute on chronic hypoxic respiratory failure. 2. Acute exacerbation of chronic obstructive pulmonary disease and asthma, allergic type, severe persistent. 3. Healthcare acquired pneumonia. 4. 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 5. Systemic inflammatory response syndrome with sepsis. 6. Anemia. 7. Hyponatremia. 8. Allergic asthma. 9. Elevated IgE. 10. History of cerebrovascular accident. 11. Emphysema. 12. Diabetes mellitus type 2. 13. Tobacco abuse in remission. 14. Chronic pain syndrome. 15. Gastroesophageal reflux disease. 16. Hypertension. PLAN: Continue current medications which have been reviewed. Continue oxygen to maintain saturations greater than or equal to 88%. Continue bronchodilators and aerosolized steroids. Continue leukotriene inhibitors. The patient will require oral prednisone at 60 mg daily for 3 to 4 weeks. Prior to any taper, patient should follow up in the pulmonary office at that time and we can start tapering him. Patient also needs to follow up with pulmonary so he can start Xolair which he would benefit from to try to keep him out of the hospital setting. Patient should continue incentive spirometry and pulmonary hygiene. Continue GI and DVT prophylaxis and will follow closely with you, making further changes as necessary.
[2017-01-24] MEDS: predniSONE 20 MG TAB PO SCH (18:46)
[2017-01-24] MEDS: MONTELUKAST 10 MG TAB PO SCH (20:13)
[2017-01-24] MEDS: guaiFENesin-DM 100-10MG/5ML 10 ML CUP PO PRN (20:46)
--- NOTE | 2017-01-24 20:46 | P.PN ---
Subjective Principal diagnosis: Recurrent pneumonia This is a 56-year-old male who is currently at [facility] for subacute rehab. He had a multiple admissions each month since October of this year and treated for acute exacerbation of COPD and pneumonia. On his last admission December 15 through December 21, he was treated for acute exacerbation of COPD, ALLERGIC asthma and elevated IgE and he was discharged on Levaquin for 7 more days. He was seen by Dr. 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 His most recent CTA of the chest on September 27 revealed consolidation superior segment of the left lower lobe suspicious for pneumonia. This is a finding from August 2015. Underlying mass cannot be excluded. This should be followed to clearing. No acute pulmonary embolism. Patient was brought into [facility] emergency center by EMS with concern for pneumonia. He has had increased sputum production for the past 1-2 days and she increased shortness of breath. Patient states he is always short of breath. He also developed fever yesterday afternoon. Chest x-ray showed new CHF. Bilateral lower lobe pneumonia not ruled out. Patient states he has had decreased appetite intermittently and has lost 5 pounds in the past week. Temperature initially was 100.2 and is now 102. He was tachycardic. White count 14.6. Albumin 3.1, GFR greater than 60. Urinalysis was clear with nitrate and leukoesterase negative. Blood cultures received as well as urine culture is received. Sputum culture is uncorrected. Patient states he has not currently bringing up any sputum. He does not feel any improvement in his breathing and is always short of breath. He denies having home oxygen. In the emergency center, he received ceftriaxone, Levaquin and Zosyn and has been admitted to the selective care floor. Doing better likely to EC tomorrow. Objective - Vital Signs Vital signs: Vital Signs Temp 97.6 F 01/24/17 08:00 Pulse 91 01/24/17 19:55 Resp 18 01/24/17 04:00 BP 123/70 01/24/17 12:00 Pulse Ox 96 01/24/17 16:00 Intake & Output 01/24/17 01/24/17 01/25/17 06:59 18:59 06:59 Intake Total 300 1360 Output Total 500 Balance -200 1360 Weight 62.9 kg 62.9 kg Intake: IV 300 Piperacillin-Tazobactam 3 50 .375 gm In Dextrose/Water 1 50ml.bag @ 12.5 mls/hr IVPB Q8HR [facility] Rx#: [id number] Vancomycin 1,000 mg In 250 Sodium Chloride 0.9% 250 ml @ 125 mls/hr IVPB Q8H [facility] Rx#:[id number] Oral 1360 Output: Urine 500 Other: Voiding Method Toilet Urinal # Voids 1 1 - Exam Gen: This is a 56-year-old male. He is sitting on edge of the bed in tripod position appears to be short of breath with accessory muscle usage. He is able to speak in short sentences. HEENT: Head is atraumatic, normocephalic. Pupils equal, round. Sclerae is anicteric. And patient is in poor order. NECK: Supple. No JVD. No lymphadenopathy. No thyromegaly. LUNGS: Diminished bilaterally with scattered expiratory wheezing. Mild intercostal retractions. HEART: Regular rate and rhythm. No murmur. ABDOMEN: Soft. Bowel sounds are present. No masses. No tenderness. EXTREMITIES: No pedal edema. No calf tenderness. NEUROLOGICAL: Patient is awake, alert and oriented x3. - Labs CBC & Chem 7: 01/22/17 06:17 01/24/17 06:05 Labs: Abnormal Lab Results - Last 24 Hours (Table) 01/24/17 Range/Units 06:05 Creatinine 0.45 L (0.66-1.25) mg/dL Glucose 117 H (74-99) mg/dL Microbiology - Last 24 Hours (Table) 01/20/17 20:47 Blood Culture - Preliminary Blood No Growth after 72 hours Laboratory Results WBC 14.2 k/uL (3.8-10.6) H 01/22/17 06:17 RBC 2.81 m/uL (4.30-5.90) L 01/22/17 06:17 Hgb 9.3 gm/dL (13.0-17.5) L D 01/22/17 06:17 Hct 27.4 % (39.0-53.0) L 01/22/17 06:17 MCV 97.7 fL (80.0-100.0) 01/22/17 06:17 MCH 33.0 pg (25.0-35.0) 01/22/17 06:17 MCHC 33.8 g/dL (31.0-37.0) 01/22/17 06:17 RDW 14.1 % (11.5-15.5) 01/22/17 06:17 Plt Count 400 k/uL (150-450) 01/22/17 06:17 Neutrophils % 90 % 01/22/17 06:17 Neutrophils % (Manual) 74.5 % 01/20/17 20:47 Band Neutrophils % 6.5 % 01/20/17 20:47 Lymphocytes % 7 % 01/22/17 06:17 Lymphocytes % (Manual) 12.5 % 01/20/17 20:47 Monocytes % 3 % 01/22/17 06: Monocytes % (Manual) 0.5 % 01/20/17 20:47 Eosinophils % 0 % 01/22/17 06: Eosinophils % (Manual) 1.0 % 01/20/17 20:47 Basophils % 0 % 01/22/17: Basophils % (Manual) 2.0 % 01/20/17 20:47 Metamyelocytes % 0.5 % 01/20/17 20:47 Myelocytes % 2.5 % 01/20/17 20:47 Neutrophils # 12.8 k/uL (1.3-7.7) H 01/22/17 06:17 Neutrophils # (Manual) 11.8 k/uL (1.3-7.7) H 01/20/17 20:47 Lymphocytes # 0.9 k/uL (1.0-4.8) L 01/22/17 06:17 Lymphocytes # (Manual) 1.8 k/uL (1.0-4.8) 01/20/17 20:47 Monocytes # 0.4 k/uL (0-1.0) 01/22/17 06:17 Monocytes # (Manual) 0.1 k/uL (0-1.0) 01/20/17 20:47 Eosinophils # 0.0 k/uL (0-0.7) 01/22/17 06:17 Eosinophils # (Manual) 0.1 k/uL (0-0.7) 01/20/17 20:47 Basophils # 0.0 k/uL (0-0.2) 01/22/17 06:17 Basophils # (Manual) 0.3 k/uL (0-0.2) H 01/20/17 20:47 Nucleated RBCs 0 /100 WBC (0-0) 01/20/17 20:47 Manual Slide Review Performed 01/20/17 20:47 Toxic Granulation Present 01/20/17 20:47 Polychromasia Present 01/20/17 20:47 Poikilocytosis Slight 01/22/17 06:17 Poikilocytosis (manual Present 01/20/17 20:47 PT 10.5 sec (9.0-12.0) 01/20/17 20:47 INR 1.0 (<1.1) 01/20/17 20:47 APTT 23.9 sec (22.0-30.0) 01/20/17 20:47 Sodium 138 mmol/L (137-145) 01/24/17 06:05 Potassium 3.8 mmol/L (3.5-5.1) 01/24/17 06:05 Chloride 103 mmol/L (98-107) 01/24/17 06:05 Carbon Dioxide 28 mmol/L (22-30) 01/24/17 06:05 Anion Gap 7 mmol/L 01/24/17 06:05 BUN 13 mg/dL (9-20) 01/24/17 06:05 Creatinine 0.45 mg/dL (0.66-1.25) L 01/24/17 06:05 Est GFR (MDRD) Af Amer >60 (>60 ml/min/1.73 sqM) 01/24/17 06:05 Est GFR (MDRD) Non-Af >60 (>60 ml/min/1.73 sqM) 01/24/17 06:05 Glucose 117 mg/dL (74-99) H 01/24/17 06:05 Plasma Lactic Acid Gray 0.8 mmol/L (0.7-2.0) 01/21/17 20:51 Calcium 9.1 mg/dL (8.4-10.2) 01/24/17 06:05 Total Bilirubin 0.3 mg/dL (0.2-1.3) 01/22/17 06:17 AST 21 U/L (17-59) 01/22/17 06:17 ALT 43 U/L (21-72) 01/22/17 06:17 Alkaline Phosphatase 56 U/L (38-126) 01/22/17 06:17 NT-Pro-B Natriuret Pep 133 pg/mL 01/20/17 20:30 Total Protein 5.6 g/dL (6.3-8.2) L 01/22/17 06: Albumin 2.7 g/dL (3.5-5.0) L 01/22/17 06:17 Urine Color Light Yellow 01/20/17 21:30 Urine Appearance Clear (Clear) 01/20/17 21:30 Urine pH 7.0 (5.0-8.0) 01/20/17 21:30 Ur Specific [place] 1.002 (1.001-1.035) 01/20/17 21:30 Urine Protein Negative (Negative) 01/20/17 21: Urine Glucose (UA) Negative (Negative) 01/20/17 21:30 Urine Ketones Negative (Negative) 01/20/17 21:30 Urine Blood Negative (Negative) 01/20/17 21:30 Urine Nitrite Negative (Negative) 01/20/17 21:30 Urine Bilirubin Negative (Negative) 01/20/17 21:30 Urine Urobilinogen <2.0 mg/dL (<2.0) 01/20/17 21:30 Ur Leukocyte Esterase Negative (Negative) 01/20/17 21:30 Vancomycin Trough 16.1 ug/mL 01/23/17 03:06 H.influenzae B IgG Ab 1.1 ug/mL 01/22/17 06:17 Urine Legionella Ag Not detected (Not detected) 01/21/17 13:41 Microbiology 01/20/17 20:47 Blood Blood Culture - Preliminary No Growth after 72 hours 01/20/17 21:30 Urine,Voided Urine Culture - Final Assessment and Plan (1) Pneumonia Narrative/Plan: This is a 56-year-old male who presented to hospital with bilateral lower lobe pneumonia and sepsis with fever, tachycardia and leukocytosis as well as COPD exacerbation. Now improving with current therapy, Legionella mycoplasma are negative. No positive cultures so far. Patient had several stays but no evidence of any positive sputum cultures are noted. There is concern as to potential pathogens. As well as ongoing ALLERGIC component. Pulmonary has evaluated and is contemplating Xolair in the outpatient setting if it can be arranged. Long-term taper of steroids is in process Antibiotics at discharge will be of Augmentin a 75 orally twice per day with Bactrim 1 double strength twice per day planning 10 days and his complex history. Status: Acute
[2017-01-25] MEDS: ALBUTEROL NEBULIZED 2.5 MG/3 ML INHALATION PRN ×3 (01:40→11:02)
[2017-01-25] MEDS: PIPERACILLIN-TAZOBACTAM 3.375 GM in DEXTROSE/WATER 1 50ML.BAG IVPB SCH ×2 (01:58→09:40)
[2017-01-25] MEDS: guaiFENesin-DM 100-10MG/5ML 10 ML CUP PO PRN (05:40)
[2017-01-25] MEDS: VANCOMYCIN 1,000 MG in SODIUM CHLORIDE 0.9% 250 ML IVPB SCH ×2 (05:53→12:14)
[2017-01-25 05:54] LABS: Mycoplasma IgG Antibody (EIA) 1.81 INDEX (<=0.90); Mycoplasma IgM Antibody 0.59 INDEX (<=0.90)
[2017-01-25] MEDS: BUDESONIDE 0.5 MG/2 ML NEBU INHALATION SCH (07:55)
[2017-01-25] MEDS: FORMOTEROL FUMARATE 20 MCG/2 ML NEBU INHALATION SCH (07:56)
[2017-01-25] MEDS: HYDROcodone/APAP 5-325MG 1 EACH TAB PO PRN (09:39)
[2017-01-25] MEDS: HEPARIN SODIUM,PORCINE 5,000 UNIT/ML 1 ML VIAL SQ SCH (09:40)
[2017-01-25] MEDS: FAMOTIDINE 20 MG TAB PO SCH (09:41)
[2017-01-25] MEDS: amLODIPine 10 MG TAB PO SCH (09:41)
[2017-01-25] MEDS: ASPIRIN 81 MG CHEW PO SCH (09:41)
[2017-01-25] MEDS: MENTHOL-ZINC OXIDE OINT 113 GM TUBE TOPICAL SCH (09:42)
[2017-01-25] MEDS: predniSONE 20 MG TAB PO SCH (09:42)
[2017-01-25] MEDS: levETIRAcetam 500 MG TAB PO SCH (09:42)
[2017-01-25] MEDS: MULTIVITAMINS, THERA 1 EACH TAB PO SCH (09:42)
[2017-01-25] MEDS: FOLIC ACID 1 MG TAB PO SCH (09:43)
[2017-01-25] MEDS: THIAMINE 100 MG TAB PO SCH (09:43)
[2017-01-25 11:17] VITALS: TEMP 96.7
--- NOTE | 2017-01-25 12:21 | P.DS ---
Providers Date of admission: 01/20/17 23:37 Attending physician: Tricia Cano Consults: 01/20/17 23:37 Consult Physician Routine Consulting Provider: Devon Cuello Consult Reason/Comments: Pneumonia, recurrent Do you want consulting provider notified?: Yes 01/21/17 10:27 Consult Physician Routine Consulting Provider: Venus King Consult Reason/Comments: AECOPD, recurrent pneumonia, bronchoscopy Do you want consulting provider notified?: Yes Primary care physician: [facility] Course: HISTORY OF PRESENT ILLNESS: This is a 56-year-old gentleman who is currently at [facility] after being discharged from the hospital being treated for pneumonia, comes into the hospital with complaints of progressive worsening of difficulty breathing and progressive worsening and difficulty breathing, cough and fevers for the last 2 to 3 days. Patient has been admitted multiple times in the recent few months with chronic obstructive pulmonary disease exacerbations. Patient apparently was treated for bilateral pneumonia at that time as well. Patient comes in the hospital. A chest x-ray was done, which was shows some bilateral airspace disease. The patient states that he has a cough over the same period of time which has been nonproductive in nature. T-max 102 degrees Fahrenheit. Denies having any headaches, blurry vision, nausea, vomiting, diarrhea, or urinary urgency or frequency or focal deficits. 01/22/17 doing well today states to have a cough, no chills, fevers, nausea, vomiting diarrhea 01/23/17 doing well is hypoxic on amublation noted to have a cough with minimal sputum production no fevers, chills, nausea, vomiting, diarrhea noted 01/24/17 doing well concerned about his transfer to [facility] in [place] Breathing is improved PHYSICAL EXAM: GENERAL APPEARANCE: Alert, oriented x3. Does not appear to be in distress. HEART: S1, S2 heard. Regular rate and rhythm. No murmurs appreciated. LUNGS: diminished, however no rhochi wheezing or crackles. improved air movement Oral cavity no thrush noted No rhonchi or crackles. Neck is supple. No JVD. HEENT: Head is atraumatic, normocephalic. Pupils are equal, round, and reactive to light and accommodation. ABDOMEN: Soft, nontender, no organomegaly. Bowel sounds are intact. No lower extremity edema appreciated. NEUROLOGIC EXAM: No focal motor or sensory deficits noted. Cranial nerves II through XII grossly intact. ASSESSMENT AND PLAN: 1. Sepsis secondary to bilateral pneumonia that is healthcare acquired in nature. 2. Acute on chronic hypoxic respiratory failure secondary to above. 3. Acute exacerbation of chronic obstructive pulmonary disease. 4. Anemia of unknown etiology; however, this appears to be chronic. 5. History of chronic obstructive pulmonary disease. 6. Gastroesophageal reflux disease. 7. Hypertension. 8. Chronic pain syndrome. 9. Diabetes mellitus, type II. PLAN: s/p 5 days with zosyn and vancomcyin dc on augmentin and Bactrim concern for BOOP. Treat with 4 weeks prednisone 60mg per Pulmonary needs placement. dc to [facility] Pt is homeless, and has no financial resources due to need to o2, unsafe to be discharged . Patient Condition at Discharge: Poor Plan - Discharge Summary New Discharge Prescriptions: New Aspirin 81 mg PO DAILY predniSONE 60 mg PO DAILY #45 tab Amoxicillin/Potassium Clav [Augmentin 875-125 Tablet] 1 tab PO Q12HR #20 tab Sulfamethoxazole/Trimethoprim [Bactrim DS 800-160 mg] 1 each PO BID #10 tablet Continue amLODIPine [Norvasc] 10 mg PO DAILY Thiamine [Vitamin B-1] 100 mg PO DAILY #30 tablet Multivitamins, Thera [Multivitamin (formulary)] 1 tab PO DAILY Famotidine [Pepcid] 20 mg PO BID Acetaminophen Tab [Tylenol] 650 mg PO Q6H PRN PRN Reason: Pain ALPRAZolam [Xanax] 0.25 mg PO BID PRN PRN Reason: Anxiety guaiFENesin-DM 100-10MG/5ML [Robitussin DM] 10 ml PO Q4H PRN PRN Reason: Cough Ipratropium-Albuterol Nebulize [Duoneb 0.5 mg-3 mg/3 ml Soln] 3 ml INHALATION RT-Q4H PRN PRN Reason: Shortness Of Breath HYDROcodone/APAP 5-325MG [Holt 5-325] 1 tab PO TID PRN PRN Reason: Pain Beclomethasone Dipropionate [Qvar 80 mcg] 1 puff INHALATION RT-BID Nicotine 14Mg/24Hr Patch [Habitrol] 1 patch TRANSDERM DAILY guaiFENesin [Mucinex] 600 mg PO Q12HR levETIRAcetam [Keppra] 500 mg PO DAILY Folic Acid 1 mg PO DAILY Dimethicone/Zinc Oxide [Inzo Zinc Oxide Barrier Cream] 1 applic TOPICAL Q12H Discharge Medication List amLODIPine [Norvasc] 10 mg PO DAILY 02/07/15 [History] Thiamine [Vitamin B-1] 100 mg PO DAILY #30 tablet 11/13/16 [Rx] Multivitamins, Thera [Multivitamin (formulary)] 1 tab PO DAILY 11/14/16 [History ] Famotidine [Pepcid] 20 mg PO BID 11/22/16 [History] ALPRAZolam [Xanax] 0.25 mg PO BID PRN 01/20/17 [History] Acetaminophen Tab [Tylenol] 650 mg PO Q6H PRN 01/20/17 [History] Beclomethasone Dipropionate [Qvar 80 mcg] 1 puff INHALATION RT-BID 01/20/17 [ History] Dimethicone/Zinc Oxide [Inzo Zinc Oxide Barrier Cream] 1 applic TOPICAL Q12H 12/03 [History] Folic Acid 1 mg PO DAILY 01/20/17 [History] HYDROcodone/APAP 5-325MG [Holt 5-325] 1 tab PO TID PRN 01/20/17 [History] Ipratropium-Albuterol Nebulize [Duoneb 0.5 mg-3 mg/3 ml Soln] 3 ml INHALATION RT -Q4H PRN 01/20/17 [History] Nicotine 14Mg/24Hr Patch [Habitrol] 1 patch TRANSDERM DAILY 01/20/17 [History] guaiFENesin [Mucinex] 600 mg PO Q12HR 01/20/17 [History] guaiFENesin-DM 100-10MG/5ML [Robitussin DM] 10 ml PO Q4H PRN 01/20/17 [History] levETIRAcetam [Keppra] 500 mg PO DAILY 01/20/17 [History] Amoxicillin/Potassium Clav [Augmentin 875-125 Tablet] 1 tab PO Q12HR #20 tab 04/04 [Rx] Aspirin 81 mg PO DAILY 01/24/17 [Rx] predniSONE 60 mg PO DAILY #45 tab 01/24/17 [Rx] Sulfamethoxazole/Trimethoprim [Bactrim DS 800-160 mg] 1 each PO BID #10 tablet 01/25/17 [Rx] Follow up Appointment(s)/Referral(s): Venus King DO [Doctor of Osteopathic Medicine] - 1 Week Urszula Carrasco MD [Primary Care Provider] - 1-2 days Discharge Disposition: TRANSFER TO SNF/ECF
[2017-01-25] MEDS: ALPRAZolam 0.25 MG TAB PO PRN (12:45)
--- NOTE | 2017-01-25 12:51 | P.PN ---
Subjective Principal diagnosis: Recurrent pneumonia This is a 56-year-old male who is currently at [facility] for subacute rehab. He had a multiple admissions each month since October of this year and treated for acute exacerbation of COPD and pneumonia. On his last admission December 15 through December 21, he was treated for acute exacerbation of COPD, ALLERGIC asthma and elevated IgE and he was discharged on Levaquin for 7 more days. He was seen by Dr. 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 His most recent CTA of the chest on September 27 revealed consolidation superior segment of the left lower lobe suspicious for pneumonia. This is a finding from August 2015. Underlying mass cannot be excluded. This should be followed to clearing. No acute pulmonary embolism. Patient was brought into [facility] emergency center by EMS with concern for pneumonia. He has had increased sputum production for the past 1-2 days and she increased shortness of breath. Patient states he is always short of breath. He also developed fever yesterday afternoon. Chest x-ray showed new CHF. Bilateral lower lobe pneumonia not ruled out. Patient states he has had decreased appetite intermittently and has lost 5 pounds in the past week. Temperature initially was 100.2 and is now 102. He was tachycardic. White count 14.6. Albumin 3.1, GFR greater than 60. Urinalysis was clear with nitrate and leukoesterase negative. Blood cultures received as well as urine culture is received. Sputum culture is uncorrected. Patient states he has not currently bringing up any sputum. He does not feel any improvement in his breathing and is always short of breath. He denies having home oxygen. In the emergency center, he received ceftriaxone, Levaquin and Zosyn and has been admitted to the selective care floor. Doing better likely to ECF today. Objective - Vital Signs Vital signs: Vital Signs Temp 96.7 F L 01/25/17 09:15 Pulse 98 01/25/17 11:15 Resp 18 01/25/17 09:15 BP 126/74 01/25/17 09:15 Pulse Ox 97 01/25/17 09:15 Intake & Output 01/24/17 01/25/17 01/25/17 18:59 06:59 18:59 Intake Total 1360 300 240 Output Total 820 300 Balance 1360 -520 -60 Weight 62.9 kg 64.1 kg Intake: IV 300 Piperacillin-Tazobactam 3 100 .375 gm In Dextrose/Water 1 50ml.bag @ 12.5 mls/hr IVPB Q8HR [facility] Rx#: [id number] Sodium Chloride 0.9% 1, 200 000 ml @ 20 mls/hr IV . Q24H [facility] Rx#:[id number] Oral 1360 240 Output: Urine 820 300 Other: Voiding Method Toilet Toilet Urinal Urinal # Voids 1 1 1 - Exam Gen: This is a 56-year-old male. He is sitting on edge of the bed in tripod position appears to be short of breath with accessory muscle usage. He is able to speak in short sentences. HEENT: Head is atraumatic, normocephalic. Pupils equal, round. Sclerae is anicteric. And patient is in poor order. NECK: Supple. No JVD. No lymphadenopathy. No thyromegaly. LUNGS: Diminished bilaterally with scattered expiratory wheezing. Mild intercostal retractions. HEART: Regular rate and rhythm. No murmur. ABDOMEN: Soft. Bowel sounds are present. No masses. No tenderness. EXTREMITIES: No pedal edema. No calf tenderness. NEUROLOGICAL: Patient is awake, alert and oriented x3. - Labs CBC & Chem 7: 01/22/17 06:17 01/24/17 06:05 Labs: Abnormal Lab Results - Last 24 Hours (Table) 01/20/17 Range/Units 20:47 Mycoplasma pneumon IgG 1.81 H (<=0.90) INDEX Microbiology - Last 24 Hours (Table) 01/20/17 20:47 Blood Culture - Preliminary Blood No Growth after 96 hours Laboratory Results WBC 14.2 k/uL (3.8-10.6) H 01/22/17 06:17 RBC 2.81 m/uL (4.30-5.90) L 01/22/17 06:17 Hgb 9.3 gm/dL (13.0-17.5) L D 01/22/17 06:17 Hct 27.4 % (39.0-53.0) L 01/22/17 06:17 MCV 97.7 fL (80.0-100.0) 01/22/17 06:17 MCH 33.0 pg (25.0-35.0) 01/22/17 06:17 MCHC 33.8 g/dL (31.0-37.0) 01/22/17 06:17 RDW 14.1 % (11.5-15.5) 01/22/17 06:17 Plt Count 400 k/uL (150-450) 01/22/17 06:17 Neutrophils % 90 % 01/22/17 06:17 Neutrophils % (Manual) 74.5 % 01/20/17 20:47 Band Neutrophils % 6.5 % 01/20/17 20:47 Lymphocytes % 7 % 01/22/17 06:17 Lymphocytes % (Manual) 12.5 % 01/20/17 20:47 Monocytes % 3 % 01/22/17 06: Monocytes % (Manual) 0.5 % 01/20/17 20:47 Eosinophils % 0 % 01/22/17 06: Eosinophils % (Manual) 1.0 % 01/20/17 20:47 Basophils % 0 % 01/22/17 06: Basophils % (Manual) 2.0 % 01/20/17 20:47 Metamyelocytes % 0.5 % 01/20/17 20:47 Myelocytes % 2.5 % 01/20/17 20:47 Neutrophils # 12.8 k/uL (1.3-7.7) H 01/22/17 06:17 Neutrophils # (Manual) 11.8 k/uL (1.3-7.7) H 01/20/17 20:47 Lymphocytes # 0.9 k/uL (1.0-4.8) L 01/22/17 06:17 Lymphocytes # (Manual) 1.8 k/uL (1.0-4.8) 01/20/17 20:47 Monocytes # 0.4 k/uL (0-1.0) 01/22/17 06:17 Monocytes # (Manual) 0.1 k/uL (0-1.0) 01/20/17 20:47 Eosinophils # 0.0 k/uL (0-0.7) 01/22/17 06:17 Eosinophils # (Manual) 0.1 k/uL (0-0.7) 01/20/17 20:47 Basophils # 0.0 k/uL (0-0.2) 01/22/17 06:17 Basophils # (Manual) 0.3 k/uL (0-0.2) H 01/20/17 20:47 Nucleated RBCs 0 /100 WBC (0-0) 01/20/17 20:47 Manual Slide Review Performed 01/20/17 20:47 Toxic Granulation Present 01/20/17 20:47 Polychromasia Present 01/20/17 20:47 Poikilocytosis Slight 01/22/17 06:17 Poikilocytosis (manual Present 01/20/17 20:47 PT 10.5 sec (9.0-12.0) 01/20/17 20:47 INR 1.0 (<1.1) 01/20/17 20:47 APTT 23.9 sec (22.0-30.0) 01/20/17 20:47 Sodium 138 mmol/L (137-145) 01/24/17 06:05 Potassium 3.8 mmol/L (3.5-5.1) 01/24/17 06:05 Chloride 103 mmol/L (98-107) 01/24/17 06:05 Carbon Dioxide 28 mmol/L (22-30) 01/24/17 06:05 Anion Gap 7 mmol/L 01/24/17 06:05 BUN 13 mg/dL (9-20) 01/24/17 06:05 Creatinine 0.45 mg/dL (0.66-1.25) L 01/24/17 06:05 Est GFR (MDRD) Af Amer >60 (>60 ml/min/1.73 sqM) 01/24/17 06:05 Est GFR (MDRD) Non-Af >60 (>60 ml/min/1.73 sqM) 01/24/17 06:05 Glucose 117 mg/dL (74-99) H 01/24/17 06:05 Plasma Lactic Acid Gray 0.8 mmol/L (0.7-2.0) 01/21/17 20:51 Calcium 9.1 mg/dL (8.4-10.2) 01/24/17 06:05 Total Bilirubin 0.3 mg/dL (0.2-1.3) 01/22/17 06:17 AST 21 U/L (17-59) 01/22/17 06:17 ALT 43 U/L (21-72) 01/22/17 06:17 Alkaline Phosphatase 56 U/L (38-126) 01/22/17 06:17 NT-Pro-B Natriuret Pep 133 pg/mL 01/20/17 20:30 Total Protein 5.6 g/dL (6.3-8.2) L 01/22/17 06: Albumin 2.7 g/dL (3.5-5.0) L 01/22/17 06:17 Urine Color Light Yellow 01/20/17 21:30 Urine Appearance Clear (Clear) 01/20/17 21:30 Urine pH 7.0 (5.0-8.0) 01/20/17 21:30 Ur Specific [place] 1.002 (1.001-1.035) 01/20/17 21:30 Urine Protein Negative (Negative) 01/20/17 21:30 Urine Glucose (UA) Negative (Negative) 01/20/17 21:30 Urine Ketones Negative (Negative) 01/20/17 21:30 Urine Blood Negative (Negative) 01/20/17 21:30 Urine Nitrite Negative (Negative) 01/20/17 21:30 Urine Bilirubin Negative (Negative) 01/20/17 21:30 Urine Urobilinogen <2.0 mg/dL (<2.0) 01/20/17 21:30 Ur Leukocyte Esterase Negative (Negative) 01/20/17 21:30 Vancomycin Trough 16.1 ug/mL 01/23/17 03:06 H.influenzae B IgG Ab 1.1 ug/mL 01/22/17 06:17 Urine Legionella Ag Not detected (Not detected) 01/21/17 13:41 Mycoplasma pneumon IgG 1.81 INDEX (<=0.90) H 01/20/17 20:47 Mycoplasma pneumon IgM 0.59 INDEX (<=0.90) 01/20/17 20:47 Microbiology 01/20/17 20:47 Blood Blood Culture - Preliminary No Growth after 96 hours 01/20/17 21:30 Urine,Voided Urine Culture - Final Assessment and Plan (1) Pneumonia Narrative/Plan: This is a 56-year-old male who presented to hospital with bilateral lower lobe pneumonia and sepsis with fever, tachycardia and leukocytosis as well as COPD exacerbation. Now improving with current therapy, Legionella mycoplasma are negative. No positive cultures so far. Patient had several stays but no evidence of any positive sputum cultures are noted. There is concern as to potential pathogens. As well as ongoing ALLERGIC component. Pulmonary has evaluated and is contemplating Xolair in the outpatient setting if it can be arranged. Long-term taper of steroids is in process Antibiotics at discharge will be of Augmentin 875 orally twice per day with Bactrim 1 double strength twice per day planning 10 days and his complex history. Status: Acute
[2017-01-25 13:18] VITALS: BP 124/74; PULSE 104
[2017-01-26] MEDS ORDERED: VANCOMYCIN TROUGH DUE 1 EACH MISC MISCELLANE ONE (03:00)
== END 2017-01-25 14:07 | DRG 871 ==
LOC: EC 20:29 → 5MS5E 23:37 → 6SEL 01-21 00:45
PROVIDERS: ADMIT Hospitalist; ATTEND Hospitalist
DX: A41.9 Sepsis, unspecified organism (principal); J96.21 Acute and chronic respiratory failure with hypoxia; I11.0 Hypertensive heart disease with heart failure; J18.9 Pneumonia, unspecified organism; I50.9 Heart failure, unspecified; E11.9 Type 2 diabetes mellitus without complications; D64.9 Anemia, unspecified; J44.0 Chronic obstructive pulmonary disease with (acute) lower respiratory infection; E87.1 Hypo-osmolality and hyponatremia; J44.1 Chronic obstructive pulmonary disease with (acute) exacerbation; F41.0 Panic disorder [episodic paroxysmal anxiety]; I25.2 Old myocardial infarction; R00.0 Tachycardia, unspecified; J45.50 Severe persistent asthma, uncomplicated; R63.4 Abnormal weight loss; R53.1 Weakness; H40.1110 Primary open-angle glaucoma, right eye, stage unspecified; K21.9 Gastro-esophageal reflux disease without esophagitis; G89.4 Chronic pain syndrome; Z59.0 Homelessness; Z80.51 Family history of malignant neoplasm of kidney; Z71.3 Dietary counseling and surveillance; Z79.899 Other long term (current) drug therapy; Z82.5 Family history of asthma and other chronic lower respiratory diseases; Z87.01 Personal history of pneumonia (recurrent); Z86.73 Personal history of transient ischemic attack (TIA), and cerebral infarction without residual deficits; Z87.891 Personal history of nicotine dependence; Z87.81 Personal history of (healed) traumatic fracture; Z79.82 Long term (current) use of aspirin; Z79.891 Long term (current) use of opiate analgesic; Z79.51 Long term (current) use of inhaled steroids; Z80.8 Family history of malignant neoplasm of other organs or systems; Z86.19 Personal history of other infectious and parasitic diseases; Y95 Nosocomial condition
CPT/HCPCS: 36415; 71010; 71250; 80048; 80053; 80202; 81003; 83605; 83880; 85025; 85610; 85730; 86684; 86738; 87040; 87086; 87449; 93005; 93308; 94640; 94760; 96365; 96366; 96367; 99285

== ENCOUNTER 2018-11-14 02:13 | Inpatient (IN) | payer OTHER ==
[2018-11-14] MEDS ORDERED: methylPREDNISolone SOD SUCCI 125 MG/2 ML VIAL IV STA (02:16)
[2018-11-14] MEDS ORDERED: IPRATROPIUM-ALBUTEROL 3 ML NEB INHALATION STA ×2 (02:17→03:20)
[2018-11-14 02:37] LABS: Basophils % (A) 0 %; Eosinophils # (A) 0.4 k/uL (0-0.7); Eosinophils % (A) 4 %; HCT 50.2 % (39.0-53.0); HGB 16.5 gm/dL (13.0-17.5); Lymphocytes # (A) 1.5 k/uL (1.0-4.8); Lymphocytes % (A) 16 %; MCH 31.9 pg (25.0-35.0); MCHC 32.8 g/dL (31.0-37.0); MCV 97.2 fL (80.0-100.0); Monocytes # (A) 0.6 k/uL (0-1.0); Monocytes % (A) 6 %; Neutrophils # (A) 6.9 k/uL (1.3-7.7); Neutrophils % (A) 72 %; Platelet Count 263 k/uL (150-450); RBC 5.16 m/uL (4.30-5.90); WBC 9.5 k/uL (3.8-10.6)
[2018-11-14 02:45] LABS: INR 0.9 (<1.2); Partial Thromboplastin Time 25.8 sec (22.0-30.0); Prothrombin Time 9.9 sec (9.0-12.0)
[2018-11-14 02:46] LABS: ALT 66 U/L (21-72); AST 59 U/L (17-59); Albumin 4.2 g/dL (3.5-5.0); Alkaline Phosphatase 89 U/L (38-126); Anion Gap 10 mmol/L; Blood Urea Nitrogen 6 mg/dL (9-20); Calcium 9.4 mg/dL (8.4-10.2); Carbon Dioxide 23 mmol/L (22-30); Chloride 100 mmol/L (98-107); Glucose 77 mg/dL (74-99); Potassium 4.4 mmol/L (3.5-5.1); Sodium 133 mmol/L (137-145); Total Bilirubin 0.5 mg/dL (0.2-1.3)
--- NOTE | 2018-11-14 03:11 | ED ---
SOB HPI - General Source: patient, EMS Mode of arrival: EMS Limitations: no limitations <Smita Robledo - Last Filed: 11/14/18 16:58> <Susan Herrmann - Last Filed: 11/14/18 21:09> - General Chief Complaint: Shortness of Breath Stated Complaint: CLEMENCIA Hx COPD - History of Present Illness Initial Comments: 58-year-old male with past medical history of COPD, previous CVA, current every day smoker presenting today for chief complaint of difficulty breathing. Patient states that he always has shortness of breath but began increasing a few hours prior to presentation. He states it felt identical thi his COPD exacerbations in the past. Patient additional noted increased wheezing from baseline, and cough for the past 1-2 weeks. Patient denied leg swelling. He denied any chest pain at the time. He states occasionally throughout the day for years he has experienced some chest pain, mid chest sharp in characteristic. Denies history of myocardial infarction. Patient denies any back pain. He denies any hemoptysis, cancer, history of heart failure, recent travel, hormone use, recent surgery, or anticoagulation use. Pt called EMS when he was unable to catch his breath. Upon review of system patient states that he did have recent fall, obvious bruising below left eye. Patient states that he had coughed so hard he had syncopal episode. Patient states he has had. He states he stated he thought the loss of consciousness was brief he denied headache dizziness or vomiting following. (Smita Robledo) - Related Data Home Medications Medication Instructions Recorded Confirmed Acetaminophen Tab [Tylenol] 650 mg PO Q6H PRN 01/20/17 11/14/18 Folic Acid 1 mg PO DAILY 01/20/17 11/14/18 Ipratropium-Albuterol Nebulize 3 ml INHALATION RT-Q4H PRN 01/20/17 11/14/18 [Duoneb 0.5 mg-3 mg/3 ml Soln] Acyclovir 400 mg PO BID 11/14/18 11/14/18 Budesonide/Formoterol Fumarate 2 puff INHALATION RT-BID 11/14/18 11/14/18 [Symbicort 160-4.5 Mcg Inhaler] Escitalopram [Lexapro] 5 mg PO DAILY 11/14/18 11/14/18 Famotidine [Pepcid] 20 mg PO BID 11/14/18 11/14/18 Gabapentin 800 mg PO Q6H 11/14/18 11/14/18 Lisinopril [Zestril] 5 mg PO DAILY 11/14/18 11/14/18 Melatonin 5 mg PO HS PRN 11/14/18 11/14/18 amLODIPine [Norvasc] 10 mg PO DAILY 11/14/18 11/14/18 Allergies Allergy/AdvReac Type Severity Reaction Status Date / Time No Known Allergies Allergy Verified 11/14/18 08:34 Review of Systems ROS Other: All systems not noted in ROS Statement are negative. <Smita Robledo - Last Filed: 11/14/18 16:58> ROS Other: All systems not noted in ROS Statement are negative. <Susan Herrmann - Last Filed: 11/14/18 21:09> ROS Statement: Those systems with pertinent positive or pertinent negative responses have been documented in the HPI. 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 - 01/17/2017 Last Myocardial Infarction Date:: unknown History of Any Multi-Drug Resistant Organisms: None Reported Past Surgical History: Orthopedic Surgery Additional Past Surgical History / Comment(s): neck fx, metal plate left hand middle finger Past Anesthesia/Blood Transfusion Reactions: No Reported Reaction Past Psychological History: Depression, Panic Disorder Smoking Status: Current every day smoker Past Alcohol Use History: Occasional Past Drug Use History: Marijuana - Past Family History Mother Family Medical History: Cancer Additional Family Medical History / Comment(s): Pt believes his Mom of Kidney Ca, but not 100% sure. Father Family Medical History: Cancer, COPD, Respiratory Disorder Additional Family Medical History / Comment(s): Melonoma <Smita Robledo L - Last Filed: 11/14/18 16:58> General Exam Limitations: no limitations <Smita Robledo - Last Filed: 11/14/18 16:58> - General Exam Comments Initial Comments: General: The patient is awake and alert, in no distress, and does not appear acutely ill. Eye: left pupil round and reactive to light, extra-ocular movements are intact. No nystagmus. There is normal conjunctiva. No signs of icterus. Ecchymosis below left eye. No childers sign Ears, nose, mouth and throat: There are moist mucous membranes and no oral lesions. Neck: The neck is supple, there is no tenderness or JVD. Cardiovascular: There is a regular rate and rhythm. No murmur, rub or gallop is appreciated. Respiratory: Respirations are mildly labored, moderate abdominal breathing., breath sounds are equal. Significant expiratory wheeze. No stridor, rales, or rhonchi. Able to speak complete sentences. Gastrointestinal: Soft, non-distended, non-tender abdomen without masses or organomegaly noted. There is no rebound or guarding present. Bowel sounds are unremarkable. Musculoskeletal: Normal ROM, no tenderness. Strength 5/5. Sensation intact. Radial and DP pulses equal bilaterally 2+. Neurological: A&O x 3. CN II-XII intact, There are no obvious motor or sensory deficits. Coordination appears grossly intact. Speech is normal. Skin: Skin is warm and dry and no rashes or lesions are noted. No lower extremity edema Psychiatric: Cooperative, appropriate mood & affect, normal judgment. (Smita Robledo) Course Vital Signs 11/14/18 11/14/18 11/14/18 02:17 02:23 02:34 Temperature 98 F Pulse Rate 89 88 92 Respiratory 26 H Rate Blood Pressure 139/81 O2 Sat by Pulse 98 Oximetry 11/14/18 11/14/18 11/14/18 03:22 03:23 03:41 Temperature Pulse Rate 90 88 97 Respiratory 22 Rate Blood Pressure 131/80 O2 Sat by Pulse 92 L Oximetry 11/14/18 11/14/18 04:00 04:49 Temperature 98 F Pulse Rate 92 90 Respiratory 22 20 Rate Blood Pressure 135/85 133/83 O2 Sat by Pulse 97 97 Oximetry Medical Decision Making - Lab Data Result diagrams: 11/14/18 02:29 11/14/18 02:29 <Smita Robledo - Last Filed: 11/14/18 16:58> - Lab Data Result diagrams: 11/14/18 02:29 11/14/18 02:29 <Susan Herrmann - Last Filed: 11/14/18 21:09> - Medical Decision Making 58yo male with PMH Of COPD current everyday smoker presenting for cc of SOB. Pt states it is identical to previous COPD exacerbation. Pt had no evidence of fluid overload on exam, denies history of CHF or LE edema. Pt denies history of blood clots, wells score for PE 0. (-) Homans, no history of CA, recent procedures. Patient had significant extra wheeze on lung examination with moderate abdominal breathing. Slight improvement with multiple duonebs, no long using accessory muscles. Troponin (-). EKG revealed no findings concerning for myocardial injury. At this time given patient continues to have significant ext ra wheeze despite DuoNeb treatment, as well as hypoxia pt should be admitted for COPD exacerbation with scheduled treatment, IV steroids and azithromycin. Attending provider is agreeable with plan. Will speak with admittiing provider. Patient is agreeable with admission at this time. Resting comfortably in bed upon reevaluations. (Smita Robledo) I was available for consultation in the emergency department. The history and physical exam were done by the midlevel provider. I was consulted for this patient's care. I reviewed the case with the midlevel provider and based on their presentation of the patient, I agree with the assessment, medical decision making and plan of care as documented. (Susan Herrmann) - Lab Data Lab Results 11/14/18 11/14/18 11/14/18 Range/Units 02:29 02:29 02:29 WBC 9.5 (3.8-10.6) k/uL RBC 5.16 (4.30-5.90) m/uL Hgb 16.5 (13.0-17.5) gm/dL Hct 50.2 (39.0-53.0) % MCV 97.2 (80.0-100.0) fL MCH 31.9 (25.0-35.0) pg MCHC 32.8 (31.0-37.0) g/dL RDW 13.0 (11.5-15.5) % Plt Count 263 (150-450) k/uL Neutrophils % 72 % Lymphocytes % 16 % Monocytes % 6 % Eosinophils % 4 % Basophils % 0 % Neutrophils # 6.9 (1.3-7.7) k/uL Lymphocytes # 1.5 (1.0-4.8) k/uL Monocytes # 0.6 (0-1.0) k/uL Eosinophils # 0.4 (0-0.7) k/uL Basophils # 0.0 (0-0.2) k/uL PT 9.9 (9.0-12.0) sec INR 0.9 (<1.2) APTT 25.8 (22.0-30.0) sec Sodium 133 L (137-145) mmol/L Potassium 4.4 (3.5-5.1) mmol/L Chloride 100 (98-107) mmol/L Carbon Dioxide 23 (22-30) mmol/L Anion Gap 10 mmol/L BUN 6 L (9-20) mg/dL Creatinine 0.56 L (0.66-1.25) mg/dL Est GFR (CKD-EPI)AfAm >90 (>60 ml/min/1.73 sqM) Est GFR (CKD-EPI)NonAf >90 (>60 ml/min/1.73 sqM) Glucose 77 (74-99) mg/dL Calcium 9.4 (8.4-10.2) mg/dL Total Bilirubin 0.5 (0.2-1.3) mg/dL AST 59 (17-59) U/L ALT 66 (21-72) U/L Alkaline Phosphatase 89 (38-126) U/L Troponin I (0.000-0.034) ng/mL Total Protein 7.0 (6.3-8.2) g/dL Albumin 4.2 (3.5-5.0) g/dL 11/14/18 Range/Units 02:29 WBC (3.8-10.6) k/uL RBC (4.30-5.90) m/uL Hgb (13.0-17.5) gm/dL Hct (39.0-53.0) % MCV (80.0-100.0) fL MCH (25.0-35.0) pg MCHC (31.0-37.0) g/dL RDW (11.5-15.5) % Plt Count (150-450) k/uL Neutrophils % % Lymphocytes % % Monocytes % % Eosinophils % % Basophils % % Neutrophils # (1.3-7.7) k/uL Lymphocytes # (1.0-4.8) k/uL Monocytes # (0-1.0) k/uL Eosinophils # (0-0.7) k/uL Basophils # (0-0.2) k/uL PT (9.0-12.0) sec INR (<1.2) APTT (22.0-30.0) sec Sodium (137-145) mmol/L Potassium (3.5-5.1) mmol/L Chloride (98-107) mmol/L Carbon Dioxide (22-30) mmol/L Anion Gap mmol/L BUN (9-20) mg/dL Creatinine (0.66-1.25) mg/dL Est GFR (CKD-EPI)AfAm (>60 ml/min/1.73 sqM) Est GFR (CKD-EPI)NonAf (>60 ml/min/1.73 sqM) Glucose (74-99) mg/dL Calcium (8.4-10.2) mg/dL Total Bilirubin (0.2-1.3) mg/dL AST (17-59) U/L ALT (21-72) U/L Alkaline Phosphatase (38-126) U/L Troponin I <0.012 (0.000-0.034) ng/mL Total Protein (6.3-8.2) g/dL Albumin (3.5-5.0) g/dL - EKG Data EKG Comments: A 12-lead EKG was performed and shows the following: Rate is 90bpm, and rhythm is normal sinus. There are normal QRS complexes and normal R-wave progression. ST segments have no elevation or depression, and MS segments appear normal. MS interval 142 ms, QRS duration 80 ms, QT/QTc 362/442 ms. EKG was interpreted by myself as well as attending provider Dr. Herrmann (Smita Robledo) Disposition Is patient prescribed a controlled substance at d/c from ED?: No Time of Disposition: 03:39 Decision to Admit Reason: Admit from EC Decision Date: 11/14/18 Decision Time: 03:39 <Smita Robledo - Last Filed: 11/14/18 16:58> <Susan Herrmann - Last Filed: 11/14/18 21:09> Clinical Impression: COPD exacerbation, Hypoxia, Dyspnea Disposition: ADMITTED IP TO THIS HOSP Condition: Stable
[2018-11-14] MEDS ORDERED: IPRATROPIUM-ALBUTEROL 3 ML NEB INHALATION PRN (03:50)
[2018-11-14] MEDS: SODIUM CHLORIDE 0.9% 1,000 ML IV SCH (04:00)
[2018-11-14] MEDS: AZITHROMYCIN 500 MG TAB PO SCH (04:02)
[2018-11-14] MEDS ORDERED: ACETAMINOPHEN TAB 325 MG TAB PO PRN (05:20)
--- NOTE | 2018-11-14 09:06 | XR ---
EXAMINATION TYPE: XR chest 2V DATE OF EXAM: 11/14/2018 COMPARISON: 01/20/2017 TECHNIQUE: PA and lateral views submitted. HISTORY: Pain FINDINGS:Preliminary report provided by stat rad The lungs are clear and there is no pneumothorax, pleural effusion, or focal pneumonia. Subsegmenta l linear changes at both lung bases. Arthropathy of the shoulders. Hyperinflation suggests COPD. Degr ee of chronic interstitial lung disease diagnosis. Hypertrophic change of the spine. IMPRESSION: 1. No acute process. Correlate for COPD and chronic interstitial lung disease. Subsegmental linear ch anges at the lung bases are suggestive of atelectasis or scar.
[2018-11-14] MEDS ORDERED: MELATONIN 5 MG TABLET PO PRN (09:14)
[2018-11-14] MEDS: amLODIPine 10 MG TAB PO SCH (10:02)
[2018-11-14] MEDS: FAMOTIDINE 20 MG TAB PO SCH ×2 (10:02→20:13)
[2018-11-14] MEDS: ESCITALOPRAM 5 MG TAB PO SCH (10:02)
[2018-11-14] MEDS: ACYCLOVIR 200 MG CAP PO SCH ×2 (10:03→20:10)
[2018-11-14] MEDS: GABAPENTIN 400 MG CAP PO SCH ×2 (10:03→18:15)
[2018-11-14] MEDS: methylPREDNISolone SOD SUCCI 125 MG/2 ML VIAL IV SCH ×3 (10:06→18:19)
[2018-11-14 11:35] LABS: Glucose,Whole Blood 170 mg/dL (75-99)
[2018-11-14] MEDS: IPRATROPIUM-ALBUTEROL 3 ML NEB INHALATION SCH ×3 (11:40→19:22)
[2018-11-14] MEDS: INSULIN ASPART (NovoLOG) 100 UNIT/ML VIAL SQ SCH ×3 (12:00→22:08)
[2018-11-14] MEDS: guaiFENesin SYRUP 100MG/5ML 200 MG/10 ML CUP PO PRN ×2 (12:01→18:23)
[2018-11-14] MEDS: HYDROcodone/APAP 5-325MG 1 EACH TAB PO PRN ×2 (13:51→20:11)
[2018-11-14] MEDS ORDERED: ALPRAZolam 0.25 MG TAB PO PRN (16:40)
[2018-11-14 17:34] LABS: Glucose,Whole Blood 151 mg/dL (75-99)
--- NOTE | 2018-11-14 19:05 | HP ---
HISTORY AND PHYSICAL DATE OF SERVICE: 11/14/2018 CHIEF COMPLAINT: Shortness of breath. HISTORY OF PRESENT ILLNESS: This 58-year-old gentleman with a past medical history of COPD, history of CVA, TIA, hypertension, history of myocardial infarction, pneumonia, history of respiratory disorder, history of basal ganglia hemorrhage in October of 2014, frozen shoulder, being followed by Dr. Urszula Carrasco in the outpatient setting, was complaining of increasing shortness of breath. The patient continues to smoke. The patient was unable to breathe properly and the patient had increased wheezing from the baseline. The patient came to [facility] and was admitted for evaluation and treatment. There is no history of any fever, rigor or chills. No history of headache, loss of consciousness, seizures. The patient was unable to catch his breath and he called EMS. His chest x-ray on admission showed no acute process and possibly subsegmental linear changes. The patient was admitted for further evaluation and treatment. PAST MEDICAL HISTORY: 1. History of COPD. 2. History of CVA, TIA. 3. Hypertension. 4. History of myocardial infarction. 5. History of pneumonia. 6. History of depression. 7. History of panic disorder. HOME MEDICATIONS: 1. Melatonin 5 mg at bedtime p.r.n. 2. Tylenol 650 q.6. 3. Norvasc 10 mg p.o. daily. 4. Pepcid 20 mg p.o. b.i.d. 5. Symbicort 160/4.5 two puffs b.i.d. 6. Acyclovir 400 mg p.o. b.i.d. 7. Zestril 5 mg p.o. daily. 8. Gabapentin 800 mg p.o. q.6. 9. Lexapro 5 mg p.o. daily. 10.Folic acid 1 mg p.o. daily. 11.DuoNeb q.4 p.r.n. ALLERGIES: NONE. FAMILY HISTORY: History of kidney cancer, possibly. SOCIAL HISTORY: History of smoking. Occasional alcohol intake. REVIEW OF SYSTEMS: ENT: No diminished hearing. No diminished vision. CARDIOVASCULAR SYSTEM: No angina, palpitations. RESPIRATORY SYSTEM: As mentioned earlier. GI: No nausea, vomiting. : No dysuria or retention. NERVOUS SYSTEM: No numbness, weakness. ALLERGY/IMMUNOLOGY: No asthma, hayfever. MUSCULOSKELETAL: As mentioned earlier. HEMATOLOGY/ONCOLOGY: No history of anemia. ENDOCRINE: No history of diabetes, hypothyroidism. CONSTITUTIONAL: As mentioned earlier. DERMATOLOGY: Negative. RHEUMATOLOGY: Negative. PSYCHIATRY: As mentioned earlier. PHYSICAL EXAMINATION: Patient is alert, oriented x3. The pulse is 92, blood pressure 142/77, respiration 16, temperature 97.9, pulse ox 92% on room air. HEENT: Conjunctivae normal. Oral mucosa moist. NECK: No jugular venous distention. No carotid bruit. No lymph node enlargement. CARDIOVASCULAR SYSTEM: S1, S2 muffled. RESPIRATORY SYSTEM: Breath sounds diminished at the bases. Bilateral scattered rhonchi and crackles. Expiratory wheezing also heard. ABDOMEN: Soft, non-tender. No mass palpable. LEGS: No edema. No swelling. NERVOUS SYSTEM: Higher functions as mentioned earlier. Moves all 4 limbs. No focal motor or sensory deficit. LYMPHATICS: No lymph node palpable in neck, axillae or groin. SKIN: No ulcer, rash, bleeding. JOINTS: No active deforming arthropathy. LABS: WBC 9.5, hemoglobin 16.4. Sodium 133. ASSESSMENT: 1. Chronic obstructive pulmonary disease, acute exacerbation, with acute purulent tracheobronchitis. 2. Hyponatremia. 3. Continued ongoing history of nicotine dependence. 4. Chronic obstructive pulmonary disease. 5. Cerebrovascular accident, transient ischemic attack. 6. Hypertension. 7. History of myocardial infarction and coronary artery disease. 8. History of pneumonia. 9. History of cerebrovascular accident with basal ganglia hemorrhage in October 2014. 10.History of frozen right shoulder. 11.History of shingles. 12.History of depression and panic disorder. RECOMMENDATION AND DISCUSSION: In this 58-year-old gentleman who presented with multiple complex medical issues, we will monitor the patient closely, continue the current management, continue symptomatic treatment, bronchodilators, steroids, antibiotics, pulmonary consultation with Dr. Nestor Chester. Otherwise, continue to monitor. Guarded prognosis because of multiple complex medical issues. Further recommendations to follow. A copy of this dictation is being forwarded to Dr. Urszula Carrasco, who is the primary physician. See orders for further details. MMODL / IJN: [id number] /
[2018-11-14] MEDS: SYMBICORT 160-4.5 MCG INHALER INHALATION SCH (19:22)
[2018-11-14 20:09] LABS: Glucose,Whole Blood 190 mg/dL (75-99)
[2018-11-14] MEDS: HEPARIN SODIUM,PORCINE 5,000 UNIT/ML 1 ML VIAL SQ SCH (20:14)
[2018-11-15] MEDS: methylPREDNISolone SOD SUCCI 125 MG/2 ML VIAL IV SCH ×4 (00:03→18:08)
[2018-11-15] MEDS: guaiFENesin SYRUP 100MG/5ML 200 MG/10 ML CUP PO PRN ×4 (00:03→22:12)
[2018-11-15] MEDS: GABAPENTIN 400 MG CAP PO SCH ×5 (00:03→23:37)
[2018-11-15] MEDS: TEMAZEPAM 15 MG CAP PO PRN ×2 (00:07→21:44)
[2018-11-15] MEDS: IPRATROPIUM-ALBUTEROL 3 ML NEB INHALATION PRN (02:22)
--- NOTE | 2018-11-15 03:07 | P.CNPUL ---
History of Present Illness Consult date: 11/15/18 Reason for consult: dyspnea, COPD Chief complaint: shortness of breath History of present illness: This is a 58-year-old gentleman who presented to the emergency department complaining of shortness of breath. The patient is well-known to our service from previous admissions. The patient states that he always wheezes but it seemed to be getting worse over the past few days. He states he could not ride his bike any longer because of shortness of breath. He denies fevers and chills. He denies coughing up phlegm. The patient does continue to smoke "a few cigarettes a day." He is on Symbicort and duo nebs at home. He states he does not have a rescue inhaler to use when he is riding his bike. He does have a right thigh contusion and states that he was coughing so hard that he blacked out. He states he did not lose consciousness and he remembers hitting the floor. 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 [facility] - 01/17/2017 Last Myocardial Infarction Date:: unknown History of Any Multi-Drug Resistant Organisms: None Reported Past Surgical History: Orthopedic Surgery Additional Past Surgical History / Comment(s): neck fx, metal plate left hand middle finger Past Anesthesia/Blood Transfusion Reactions: No Reported Reaction Past Psychological History: Depression, Panic Disorder Smoking Status: Current every day smoker Past Alcohol Use History: Occasional Past Drug Use History: Marijuana - Past Family History Mother Family Medical History: Cancer Additional Family Medical History / Comment(s): Pt believes his Mom of Kidney Ca, but not 100% sure. Father Family Medical History: Cancer, COPD, Respiratory Disorder Additional Family Medical History / Comment(s): Melonoma Medications and Allergies Home Medications Medication Instructions Recorded Confirmed Type Acetaminophen Tab [Tylenol] 650 mg PO Q6H PRN 01/20/17 11/14/18 History Folic Acid 1 mg PO DAILY 01/20/17 11/14/18 History Ipratropium-Albuterol Nebulize 3 ml INHALATION RT-Q4H PRN 01/20/17 11/14/18 History [Duoneb 0.5 mg-3 mg/3 ml Soln] Acyclovir 400 mg PO BID 11/14/18 11/14/18 History Budesonide/Formoterol Fumarate 2 puff INHALATION RT-BID 11/14/18 11/14/18 History [Symbicort 160-4.5 Mcg Inhaler] Escitalopram [Lexapro] 5 mg PO DAILY 11/14/18 11/14/18 History Famotidine [Pepcid] 20 mg PO BID 11/14/18 11/14/18 History Gabapentin 800 mg PO Q6H 11/14/18 11/14/18 History Lisinopril [Zestril] 5 mg PO DAILY 11/14/18 11/14/18 History Melatonin 5 mg PO HS PRN 11/14/18 11/14/18 History amLODIPine [Norvasc] 10 mg PO DAILY 11/14/18 11/14/18 History Allergies Allergy/AdvReac Type Severity Reaction Status Date / Time No Known Allergies Allergy Verified 11/14/18 08:34 Physical Exam Osteopathic Statement: *. No significant issues noted on an osteopathic structural exam other than those noted in the History and Physical/Consult. Vitals: Vital Signs Temp Pulse Pulse Resp BP BP Pulse Ox 11/15/18 02:33 94 11/15/18 02:22 94 11/14/18 23:50 97.9 F 85 16 132/78 95 11/14/18 19:31 94 11/14/18 19:23 93 20 96 11/14/18 17:50 18 11/14/18 15:44 90 16 11/14/18 15:34 95 11/14/18 15:32 94 16 11/14/18 14:50 97.9 F 92 16 142/77 92 L 11/14/18 11:54 84 11/14/18 11:40 88 11/14/18 07:45 96 11/14/18 07:32 100 11/14/18 07:00 98.1 F 102 H 18 137/84 92 L 11/14/18 05:12 97.9 F 99 19 136/85 90 L 11/14/18 04:49 98 F 90 20 133/83 97 11/14/18 04:00 92 22 135/85 97 11/14/18 03:41 97 11/14/18 03:23 88 11/14/18 03:22 90 22 131/80 92 L Intake and Output 11/14/18 11/14/18 11/15/18 14:59 22:59 06:59 Other: Voiding Method Toilet Toilet Gen.: Patient is alert and oriented 3, no acute distress Cardiovascular: Regular rate and rhythm, S1/S2 Lungs: Diffuse bilateral expiratory wheezing, prolonged expiration Abdomen: Soft nontender nondistended positive bowel sounds Extremities: No edema Results - Laboratory Findings CBC and BMP: 11/14/18 02:29 11/14/18 02:29 PT/INR, D-dimer PT 9.9 sec (9.0-12.0) 11/14/18 02:29 INR 0.9 (<1.2) 11/14/18 02:29 Abnormal lab findings: Abnormal Labs 11/14/18 11/14/18 11/14/18 02:29 11:24 17:13 Sodium 133 L BUN 6 L Creatinine 0.56 L POC Glucose (mg/dL) 170 H 151 H 11/14/18 19:58 Sodium BUN Creatinine POC Glucose (mg/dL) 190 H - Diagnostic Findings Chest x-ray: report reviewed Assessment and Plan Assessment: Acute exacerbation of COPD Acute exacerbation of severe persistent ALLERGIC asthma Tracheobronchitis Active tobacco abuse Polycythemia likely secondary to chronic hypoxia Eosinophilia Cough induced syncope History of coronary artery disease and myocardial infarction Hypertension History of CVA Depression Elevated IgE and environmental ALLERGIES Diabetes mellitus type 2 Chronic pain syndrome GERD O2 to maintain saturation greater than or equal to 90% Symbicort Duo nebs Singulair Steroid taper Incentive spirometry and pulmonary hygiene Sputum culture Mucinex Antibiotics: Azithro and Rocephin GI and DVT prophylaxis Consider biologic as outpatient Outpatient pulmonary function test Smoking cessation is highly recommended Thank you for this consultation we'll continue to follow along
[2018-11-15] MEDS: AZITHROMYCIN 500 MG TAB PO SCH (06:09)
[2018-11-15] MEDS: HYDROcodone/APAP 5-325MG 1 EACH TAB PO PRN ×4 (06:14→23:36)
[2018-11-15 06:50] LABS: Glucose,Whole Blood 146 mg/dL (75-99)
[2018-11-15] MEDS: IPRATROPIUM-ALBUTEROL 3 ML NEB INHALATION SCH ×4 (07:22→20:02)
[2018-11-15] MEDS: SYMBICORT 160-4.5 MCG INHALER INHALATION SCH ×2 (07:22→20:01)
[2018-11-15] MEDS: amLODIPine 10 MG TAB PO SCH (08:42)
[2018-11-15] MEDS: LISINOPRIL 5 MG TAB PO SCH (08:42)
[2018-11-15] MEDS: ACYCLOVIR 200 MG CAP PO SCH ×2 (08:42→21:41)
[2018-11-15] MEDS: MULTIVITAMINS, THERA 1 EACH TAB PO SCH (08:42)
[2018-11-15] MEDS: ESCITALOPRAM 5 MG TAB PO SCH (08:42)
[2018-11-15] MEDS: FAMOTIDINE 20 MG TAB PO SCH ×2 (08:43→21:41)
[2018-11-15] MEDS: PANTOPRAZOLE 40 MG TABLET PO SCH (08:43)
[2018-11-15] MEDS: INSULIN ASPART (NovoLOG) 100 UNIT/ML VIAL SQ SCH ×4 (08:44→21:35)
[2018-11-15] MEDS: SODIUM CHLORIDE 0.9% 1,000 ML IV SCH (08:45)
[2018-11-15 09:39] LABS: Basophils % (A) 0 %; Eosinophils # (A) 0.1 k/uL (0-0.7); Eosinophils % (A) 1 %; HCT 49.6 % (39.0-53.0); HGB 16.3 gm/dL (13.0-17.5); Lymphocytes # (A) 0.3 k/uL (1.0-4.8); Lymphocytes % (A) 2 %; MCH 32.7 pg (25.0-35.0); MCHC 32.8 g/dL (31.0-37.0); MCV 99.8 fL (80.0-100.0); Monocytes # (A) 0.3 k/uL (0-1.0); Monocytes % (A) 2 %; Neutrophils # (A) 11.6 k/uL (1.3-7.7); Neutrophils % (A) 95 %; Platelet Count 297 k/uL (150-450); RBC 4.97 m/uL (4.30-5.90); RDW 14.1 % (11.5-15.5); WBC 12.2 k/uL (3.8-10.6)
[2018-11-15 09:49] LABS: Anion Gap 11 mmol/L; Blood Urea Nitrogen 14 mg/dL (9-20); Calcium 9.3 mg/dL (8.4-10.2); Carbon Dioxide 23 mmol/L (22-30); Chloride 101 mmol/L (98-107); Glucose 252 mg/dL (74-99); Potassium 4.1 mmol/L (3.5-5.1); Sodium 135 mmol/L (137-145)
[2018-11-15 12:16] LABS: Glucose,Whole Blood 169 mg/dL (75-99)
[2018-11-15] MEDS: HEPARIN SODIUM,PORCINE 5,000 UNIT/ML 1 ML VIAL SQ SCH ×2 (12:29→21:41)
[2018-11-15] MEDS: NICOTINE 14MG/24HR PATCH TRANSDERM SCH (12:30)
[2018-11-15] MEDS: FOLIC ACID 1 MG TAB PO SCH (12:38)
[2018-11-15 17:31] LABS: Glucose,Whole Blood 170 mg/dL (75-99)
[2018-11-15 21:16] LABS: Glucose,Whole Blood 125 mg/dL (75-99)
[2018-11-15] MEDS: MONTELUKAST 10 MG TAB PO SCH (21:41)
--- NOTE | 2018-11-15 22:45 | PN ---
PROGRESS NOTE DATE OF SERVICE: 11/15/2018 This 58-year-old gentleman admitted with COPD exacerbation is on steroids and bronchodilators and antibiotics. No chest pain. No palpitations. No fever. Pulmonary following the patient closely. The patient also had a fall and had periorbital ecchymoses. EXAM: Alert and oriented times three. Pulse is 117, blood pressure is 120/70, respiration 12, temperature 98.4, pulse ox 98% on room air. HEENT: Periorbital ecchymosis present. CARDIOVASCULAR: S1, S2. RESPIRATORY: Breath sounds diminished in the bases. Bilateral scattered rhonchi and crackles. ABDOMEN is soft, nontender. LEGS are no edema. No swelling. CENTRAL NERVOUS SYSTEM: No focal deficits. LABS: At this time shows WBC 12.1, hemoglobin 16.3. Accu-Cheks noted. ASSESSMENT: 1. Chronic obstructive pulmonary disease acute exacerbation with acute purulent tracheobronchitis. 2. Hyponatremia. 3. Continued ongoing nicotine dependence. 4. Chronic obstructive pulmonary disease history. 5. History of cerebrovascular accident, transient ischemic attack. 6. Hypertension. 7. History of myocardial infarction. 8. Coronary artery disease. 9. History of pneumonia. 10.History of cerebrovascular accident with basal ganglia hemorrhage in October 2014. 11.History of frozen right shoulder. 13.History of depression/panic disorder. 14. RECOMMENDATIONS AND DISCUSSION: I would recommend to continue current medications, symptomatic treatment. Continue with the bronchodilators. Continue steroids. Continue the antibiotics. Closely follow with Pulmonary and guarded prognosis. Will cutdown the steroids to 40 mg p.o. q.8 and further recommendations to follow. MMODL / IJN: [id number] / MTDD
[2018-11-15] MEDS: methylPREDNISolone SOD SUCCI 40 MG/ML 1 ML VIAL IV SCH (23:36)
[2018-11-16] MEDS: IPRATROPIUM-ALBUTEROL 3 ML NEB INHALATION PRN ×3 (00:05→23:53)
[2018-11-16] MEDS: HYDROcodone/APAP 5-325MG 1 EACH TAB PO PRN ×3 (05:36→17:29)
[2018-11-16] MEDS: GABAPENTIN 400 MG CAP PO SCH ×3 (05:36→17:29)
[2018-11-16] MEDS: AZITHROMYCIN 500 MG TAB PO SCH (06:08)
[2018-11-16] MEDS: SODIUM CHLORIDE 0.9% 1,000 ML IV SCH (06:08)
[2018-11-16] MEDS: SYMBICORT 160-4.5 MCG INHALER INHALATION SCH ×2 (06:50→20:34)
[2018-11-16] MEDS: IPRATROPIUM-ALBUTEROL 3 ML NEB INHALATION SCH ×4 (06:50→20:35)
[2018-11-16 07:21] LABS: Glucose,Whole Blood 185 mg/dL (75-99)
[2018-11-16] MEDS: INSULIN ASPART (NovoLOG) 100 UNIT/ML VIAL SQ SCH ×4 (08:58→21:47)
[2018-11-16] MEDS: guaiFENesin SYRUP 100MG/5ML 200 MG/10 ML CUP PO PRN ×2 (09:00→18:18)
[2018-11-16] MEDS: LISINOPRIL 5 MG TAB PO SCH (09:00)
[2018-11-16] MEDS: ESCITALOPRAM 5 MG TAB PO SCH (09:01)
[2018-11-16] MEDS: ACYCLOVIR 200 MG CAP PO SCH ×2 (09:01→21:48)
[2018-11-16] MEDS: methylPREDNISolone SOD SUCCI 40 MG/ML 1 ML VIAL IV SCH ×2 (09:01→17:30)
[2018-11-16] MEDS: amLODIPine 10 MG TAB PO SCH (09:01)
[2018-11-16] MEDS: FAMOTIDINE 20 MG TAB PO SCH ×2 (09:01→21:48)
[2018-11-16] MEDS: PANTOPRAZOLE 40 MG TABLET PO SCH (09:02)
[2018-11-16 09:15] LABS: Basophils % (A) 0 %; Eosinophils # (A) 0.1 k/uL (0-0.7); Eosinophils % (A) 0 %; HCT 47.1 % (39.0-53.0); HGB 15.2 gm/dL (13.0-17.5); Lymphocytes # (A) 0.5 k/uL (1.0-4.8); Lymphocytes % (A) 3 %; MCH 32.2 pg (25.0-35.0); MCHC 32.3 g/dL (31.0-37.0); MCV 99.5 fL (80.0-100.0); Mean Platelet Volume 6.3; Monocytes # (A) 0.4 k/uL (0-1.0); Monocytes % (A) 3 %; Neutrophils # (A) 13.1 k/uL (1.3-7.7); Neutrophils % (A) 93 %; Platelet Count 253 k/uL (150-450); RBC 4.73 m/uL (4.30-5.90); RDW 13.3 % (11.5-15.5); WBC 14.1 k/uL (3.8-10.6)
[2018-11-16 09:37] LABS: Anion Gap 8 mmol/L; Blood Urea Nitrogen 18 mg/dL (9-20); Calcium 9.2 mg/dL (8.4-10.2); Carbon Dioxide 27 mmol/L (22-30); Chloride 101 mmol/L (98-107); Glucose 166 mg/dL (74-99); Potassium 4.4 mmol/L (3.5-5.1); Sodium 136 mmol/L (137-145)
[2018-11-16 11:42] LABS: Glucose,Whole Blood 108 mg/dL (75-99)
[2018-11-16] MEDS: HEPARIN SODIUM,PORCINE 5,000 UNIT/ML 1 ML VIAL SQ SCH ×2 (12:37→21:44)
[2018-11-16] MEDS: NICOTINE 14MG/24HR PATCH TRANSDERM SCH (12:37)
[2018-11-16] MEDS: MULTIVITAMINS, THERA 1 EACH TAB PO SCH (12:39)
[2018-11-16] MEDS: FOLIC ACID 1 MG TAB PO SCH (12:39)
[2018-11-16 17:02] LABS: Glucose,Whole Blood 119 mg/dL (75-99)
[2018-11-16 19:55] LABS: Glucose,Whole Blood 161 mg/dL (75-99)
--- NOTE | 2018-11-16 20:16 | PN ---
PROGRESS NOTE DATE OF SERVICE: November 16, 2018. He continues to have shortness of breath and wheezing but is doing slightly better overall. On physical examination, his respiratory rate is 18, pulse rate of 76, blood pressure is stable. He is afebrile. HEENT is unremarkable. Chest is barrel shaped with decreased breath sounds, prolonged expiration and wheeze on forced expiration. Cardiovascular system is S1, S2. Abdomen is soft. There is no edema. IMPRESSION: 1. Severe asthma with acute exacerbation. 2. Chronic obstructive pulmonary disease. 3. Polycythemia in part due to chronic hypoxia. 4. Possible obstructive sleep apnea. 5. Elevated IgE with environmental allergies consistent with severe allergic asthma. At this point in time, continues steroids, bronchodilators, Singulair, increase activity level. Depending on how he does, we should make further changes to his care. He would need close outpatient followup. TANO / ABBEY: [id number] /
[2018-11-16] MEDS: MONTELUKAST 10 MG TAB PO SCH (21:48)
[2018-11-16] MEDS: TEMAZEPAM 15 MG CAP PO PRN (22:10)
--- NOTE | 2018-11-16 23:07 | PN ---
PROGRESS NOTE DATE OF SERVICE: 11/16/2018 This 58-year-old gentleman who was admitted with COPD acute exacerbation, acute purulent tracheobronchitis, being closely monitored. No chest pain. No palpitations. No fever. Pulmonary is following the patient closely. EXAM: Alert and oriented x3. Pulse is 93. Blood pressure 130/82. Respiration 18. Temperature 97.7, pulse ox 98% on room air. HEENT: Conjunctivae normal. NECK: No jugular venous distention. CARDIOVASCULAR: S1, S2. RESPIRATORY: Breath sounds diminished in the bases. Bilateral scattered rhonchi and crackles. Abdomen is soft, nontender. Legs are no edema, no swelling. CENTRAL NERVOUS SYSTEM: No focal deficits. LABS: Labs at this time reviewed. ASSESSMENT: 1. Chronic obstructive pulmonary disease acute exacerbation with acute purulent tracheobronchitis. 2. Hyponatremia. 3. Continued ongoing nicotine dependence. 4. Chronic obstructive pulmonary disease. 5. History of cerebrovascular accident, transient ischemic attack. 6. Hypertension. 7. History of myocardial infarction. 8. Coronary artery disease. 9. History of pneumonia. 10.History of cerebrovascular accident with basal ganglia hemorrhage in 2015. 11.History of frozen right shoulder. 12.History of depression, panic disorder. RECOMMENDATIONS AND DISCUSSION: Recommend to continue current management, continue symptomatic treatment. Taper the steroids. Continue the bronchodilators. Otherwise guarded prognosis because of multiple complex medical issues. Further recommendations follow. MMROROL / IJN: [id number] /
[2018-11-17] MEDS: GABAPENTIN 400 MG CAP PO SCH ×3 (00:20→12:19)
[2018-11-17] MEDS: HYDROcodone/APAP 5-325MG 1 EACH TAB PO PRN ×3 (00:20→12:22)
[2018-11-17] MEDS: methylPREDNISolone SOD SUCCI 40 MG/ML 1 ML VIAL IV SCH ×3 (00:23→16:17)
[2018-11-17] MEDS: guaiFENesin SYRUP 100MG/5ML 200 MG/10 ML CUP PO PRN ×2 (00:27→12:22)
[2018-11-17] MEDS: IPRATROPIUM-ALBUTEROL 3 ML NEB INHALATION PRN (03:05)
[2018-11-17] MEDS: SODIUM CHLORIDE 0.9% 1,000 ML IV SCH (05:19)
[2018-11-17] MEDS: AZITHROMYCIN 500 MG TAB PO SCH (05:39)
[2018-11-17 07:39] LABS: Glucose,Whole Blood 110 mg/dL (75-99)
[2018-11-17] MEDS: INSULIN ASPART (NovoLOG) 100 UNIT/ML VIAL SQ SCH ×2 (07:39→12:07)
[2018-11-17] MEDS: NICOTINE 14MG/24HR PATCH TRANSDERM SCH (08:59)
[2018-11-17] MEDS: HEPARIN SODIUM,PORCINE 5,000 UNIT/ML 1 ML VIAL SQ SCH (09:00)
[2018-11-17] MEDS: PANTOPRAZOLE 40 MG TABLET PO SCH (09:02)
[2018-11-17] MEDS: LISINOPRIL 5 MG TAB PO SCH (09:09)
[2018-11-17] MEDS: ACYCLOVIR 200 MG CAP PO SCH (09:09)
[2018-11-17] MEDS: ESCITALOPRAM 5 MG TAB PO SCH (09:09)
[2018-11-17] MEDS: amLODIPine 10 MG TAB PO SCH (09:09)
[2018-11-17] MEDS: FAMOTIDINE 20 MG TAB PO SCH (09:09)
[2018-11-17 09:15] LABS: Basophils % (A) 0 %; Eosinophils % (A) 0 %; HCT 49.9 % (39.0-53.0); Lymphocytes # (A) 0.4 k/uL (1.0-4.8); Lymphocytes % (A) 3 %; MCH 32.3 pg (25.0-35.0); MCHC 32.1 g/dL (31.0-37.0); MCV 100.6 fL (80.0-100.0); Mean Platelet Volume 6.6; Monocytes # (A) 0.4 k/uL (0-1.0); Monocytes % (A) 4 %; Neutrophils # (A) 10.5 k/uL (1.3-7.7); Neutrophils % (A) 93 %; Platelet Count 282 k/uL (150-450); RBC 4.96 m/uL (4.30-5.90); RDW 13.2 % (11.5-15.5); WBC 11.4 k/uL (3.8-10.6)
[2018-11-17] MEDS: IPRATROPIUM-ALBUTEROL 3 ML NEB INHALATION SCH ×3 (09:33→16:48)
[2018-11-17] MEDS: SYMBICORT 160-4.5 MCG INHALER INHALATION SCH (09:33)
[2018-11-17 09:47] LABS: Anion Gap 7 mmol/L; Blood Urea Nitrogen 18 mg/dL (9-20); Calcium 9.5 mg/dL (8.4-10.2); Carbon Dioxide 29 mmol/L (22-30); Chloride 101 mmol/L (98-107); Glucose 98 mg/dL (74-99); Potassium 4.6 mmol/L (3.5-5.1); Sodium 137 mmol/L (137-145)
[2018-11-17 12:19] LABS: Glucose,Whole Blood 107 mg/dL (75-99)
[2018-11-17] MEDS: MULTIVITAMINS, THERA 1 EACH TAB PO SCH (12:19)
[2018-11-17] MEDS: FOLIC ACID 1 MG TAB PO SCH (12:19)
[2018-11-17 13:32] VITALS: PULSE 100
[2018-11-17 16:08] VITALS: BP 157/80; RESP 15; TEMP 97.8
--- NOTE | 2018-11-17 20:33 | PN ---
PROGRESS NOTE DATE OF SERVICE: 11/17/2018 This patient has been hemodynamically stable. He is less short of breath and is doing better overall. On physical examination, vitals are stable. He is afebrile. His chest reveals prolonged expiration with expiratory wheeze. Cardiovascular system is in S1, S2. Abdomen is soft. There is no edema. IMPRESSION AT THIS TIME: Asthma with chronic obstructive pulmonary disease with acute exacerbation. I agree with discharge planning with close outpatient followup. Medications were reviewed. Depending on how he does, we shall make further changes to his care. TANO / IJN: [id number] /
--- NOTE | 2018-11-17 23:59 | DS ---
DISCHARGE SUMMARY DATE OF SERVICE: 11/17/2018 FINAL DIAGNOSES: 1. Chronic obstructive pulmonary disease, acute exacerbation, with acute purulent tracheobronchitis. 2. Hyponatremia. 3. Continued ongoing nicotine dependence. 4. Chronic obstructive pulmonary disease. 5. History of cerebrovascular accident, transient ischemic attack. 6. Hypertension. 7. History of myocardial infarction. 8. History of coronary artery disease. 9. History of pneumonia. 10.History of cerebrovascular incident with basal ganglia hemorrhage in 2014. 11.History of frozen right shoulder. 12.History of depression, panic disorder. DISCHARGE DISPOSITION: The patient will be discharged in stable condition with guarded prognosis. HISTORY OF PRESENT ILLNESS: This 58-year-old gentleman with a past medical history of multiple medical problems was admitted with COPD, acute exacerbation, with acute purulent tracheobronchitis. He was treated with bronchodilators and steroids. Patient improved significantly. Respiratory saw the patient during his hospitalization. Patient will be discharged in stable condition with guarded prognosis. On exam, vitals are stable. CARDIOVASCULAR SYSTEM: S1, S2 muffled. ABDOMEN: Soft. NERVOUS SYSTEM: No focal deficit. DISCHARGE ADVICE AND MEDICATIONS: 1. Discharge diet is cardiac. 2. Activity limited until followup. 3. Follow up with Dr. Venus King in 2-3 days. 4. Follow up with Dr. Romero in 2-3 days. 5. Acyclovir 400 mg p.o. b.i.d. 6. DuoNeb q.i.d. and p.r.n. 7. Folic acid 1 mg p.o. daily. 8. Gabapentin 800 mg q.6 p.r.n. 9. Lexapro 5 mg p.o. daily. 10.Melatonin 5 mg at bedtime p.r.n. 11.Norvasc 10 mg p.o. daily. 12.Pepcid 20 mg p.o. b.i.d. 13.Symbicort 160/4.5 two puffs b.i.d. 14.Tylenol 650 q.6 p.r.n. 15.Zestril 5 mg p.o. daily. 16.Ceftin 500 mg p.o. daily for 5 days. 17.Habitrol 14 daily. 18.Multivitamins 1 p.o. daily. 19.Prednisone 40 mg daily for 3 days, 30 mg daily for 3 days, 20 mg daily for 3 days, 10 mg daily for 3 days. 20.Protonix 40 mg daily. 21.Robitussin p.r.n. 22.Singulair 10 mg p.o. at bedtime. 23.Zithromax 500 mg p.o. daily for 5 days. Total time taken 35 minutes. MMROROL / IJN: [id number] /
== END 2018-11-17 18:00 | disposition home or self-care (01) | DRG 191 ==
LOC: EC 02:13 → 4SSUR 04:07
PROVIDERS: ADMIT Internal Medicine; ATTEND Internal Medicine
DX: J44.1 Chronic obstructive pulmonary disease with (acute) exacerbation (principal); J45.51 Severe persistent asthma with (acute) exacerbation; E87.1 Hypo-osmolality and hyponatremia; J44.0 Chronic obstructive pulmonary disease with (acute) lower respiratory infection; J20.9 Acute bronchitis, unspecified; F17.210 Nicotine dependence, cigarettes, uncomplicated; D72.1 Eosinophilia; D75.1 Secondary polycythemia; E11.9 Type 2 diabetes mellitus without complications; F32.9 Major depressive disorder, single episode, unspecified; F41.0 Panic disorder [episodic paroxysmal anxiety]; G89.4 Chronic pain syndrome; I10 Essential (primary) hypertension; I25.10 Atherosclerotic heart disease of native coronary artery without angina pectoris; I25.2 Old myocardial infarction; K21.9 Gastro-esophageal reflux disease without esophagitis; R09.02 Hypoxemia; S00.10XA Contusion of unspecified eyelid and periocular area, initial encounter; S70.11XA Contusion of right thigh, initial encounter; W19.XXXA Unspecified fall, initial encounter; Z79.51 Long term (current) use of inhaled steroids; Z79.899 Other long term (current) drug therapy; Z80.51 Family history of malignant neoplasm of kidney; Z82.5 Family history of asthma and other chronic lower respiratory diseases; Z86.19 Personal history of other infectious and parasitic diseases; Z86.73 Personal history of transient ischemic attack (TIA), and cerebral infarction without residual deficits; Z87.01 Personal history of pneumonia (recurrent); R05 Cough; M75.01 Adhesive capsulitis of right shoulder
CPT/HCPCS: 36415; 71046; 80048; 80053; 84484; 85025; 85610; 85730; 87502; 93005; 94640; 94760; 96374; 99285

== ENCOUNTER 2018-12-12 20:25 | Inpatient (IN) | payer OTHER ==
[2018-12-12] MEDS ORDERED: SODIUM CHLORIDE 0.9% 500 ML 500 ML IV STA (20:46)
[2018-12-12] MEDS ORDERED: methylPREDNISolone SOD SUCCI 125 MG/2 ML VIAL IV STA (20:46)
[2018-12-12] MEDS ORDERED: IPRATROPIUM-ALBUTEROL 3 ML NEB INHALATION STA ×2 (20:46→22:52)
[2018-12-12] MEDS ORDERED: MORPHINE SULFATE 4 MG/ML SYRINGE IV STA (20:49)
[2018-12-12 21:13] LABS: Basophils % (A) 1 %; Eosinophils # (A) 0.2 k/uL (0-0.7); Eosinophils % (A) 3 %; HCT 48.6 % (39.0-53.0); HGB 16.8 gm/dL (13.0-17.5); Lymphocytes # (A) 1.8 k/uL (1.0-4.8); Lymphocytes % (A) 23 %; MCH 33.7 pg (25.0-35.0); MCHC 34.5 g/dL (31.0-37.0); MCV 97.6 fL (80.0-100.0); Mean Platelet Volume 6.4; Monocytes # (A) 0.7 k/uL (0-1.0); Monocytes % (A) 9 %; Neutrophils # (A) 4.8 k/uL (1.3-7.7); Neutrophils % (A) 59 %; Platelet Count 225 k/uL (150-450); RBC 4.98 m/uL (4.30-5.90); WBC 8.1 k/uL (3.8-10.6)
[2018-12-12 21:18] LABS: ALT 59 U/L (21-72); AST 52 U/L (17-59); Albumin 4.2 g/dL (3.5-5.0); Alkaline Phosphatase 71 U/L (38-126); Anion Gap 13 mmol/L; Blood Urea Nitrogen 7 mg/dL (9-20); Calcium 9.5 mg/dL (8.4-10.2); Carbon Dioxide 23 mmol/L (22-30); Chloride 95 mmol/L (98-107); Glucose 84 mg/dL (74-99); Magnesium 1.6 mg/dL (1.6-2.3); Potassium 4.5 mmol/L (3.5-5.1); Sodium 131 mmol/L (137-145); Total Bilirubin 0.7 mg/dL (0.2-1.3); Total Protein 6.6 g/dL (6.3-8.2)
--- NOTE | 2018-12-12 21:23 | XR ---
EXAMINATION TYPE: XR chest 2V DATE OF EXAM: 12/12/2018 COMPARISON: 11/14/2018 HISTORY: Chest pain TECHNIQUE: Frontal and lateral views of the chest are obtained. FINDINGS: There is no heart failure nor confluent pneumonic infiltrate. Costophrenic angles are antony r. There is small linear density in the lower lung brown. IMPRESSION: Subsegmental atelectasis. Normal heart. No adverse change overall compared to last exam.
[2018-12-12 21:27] LABS: INR 0.9 (<1.2); Partial Thromboplastin Time 24.7 sec (22.0-30.0); Prothrombin Time 9.5 sec (9.0-12.0)
[2018-12-12 21:32] LABS: D-Dimer 0.81 mg/L FEU (<0.60)
--- NOTE | 2018-12-12 22:45 | CT ---
ADDENDUM - Added by Tian Ramos MD on 12/12/2018 11:40 PM (-04:00) IMPRESSION: NO Evidence for pulmonary emboli. The study is not optimized for evaluation pulmonary arteries small distal pulmonary emboli cannot be excluded. Paraseptal centimeters changes the upper lobes. Interstitial changes and bronchial wall thickening. There is nodular densities noted in the lower lobes which could represent decreasing airspace consolidation. Continued follow-up to clearance is recommended EXAM: CT Angiography Chest With Intravenous Contrast CLINICAL HISTORY: Pain TECHNIQUE: Axial computed tomographic angiography images of the chest with 64 mL of Isovue-370 intravenous contrast using pulmonary embolism protocol. CTDI is 10.9 mGy and DLP is 340.8 mGy-cm. This CT exam was performed using one or more of the following dose reduction techniques: automated exposure control, adjustment of the mA and/or kV according to patient size, and/or use of iterative reconstruction technique. MIP reconstructed images were created and reviewed. Coronal and sagittal reformatted images were created and reviewed. COMPARISON: 01/21/17 FINDINGS: Pulmonary arteries: Study is not optimized for evaluation of pulmonary arteries. There is no filling defects noted centrally. Possibility of small distal pulmonary emboli, likely excluded. Unremarkable. No pulmonary embolism. Aorta: No acute findings. No thoracic aortic aneurysm. Lungs: Paraseptal emphysematous changes in the upper lobes. There is a 7 mm nodular density in the posterior sulcus in the left. Previous consolidation. 6 mm solid nodule in area of previous consolidation decreased in size. Continued follow-up is recommended until clearance. Improved aeration of the lungs when compared to prior study Pleural space: Unremarkable. No significant effusion. No pneumothorax. Heart: Unremarkable. No cardiomegaly. No significant pericardial effusion. No evidence of RV dysfunction. Bones/joints: No acute fracture. No dislocation. Soft tissues: Unremarkable. Lymph nodes: Unremarkable. No enlarged lymph nodes. IMPRESSION: Evidence for pulmonary emboli. The study is not optimized for evaluation pulmonary arteries small distal pulmonary emboli cannot be excluded. Paraseptal centimeters changes the upper lobes. Interstitial changes and bronchial wall thickening. There is nodular densities noted in the lower lobes which could represent decreasing airspace consolidation. Continued follow-up to clearance is recommended
--- NOTE | 2018-12-12 23:17 | ED ---
General Adult HPI - General Source: patient, RN notes reviewed, old records reviewed Mode of arrival: ambulatory Limitations: no limitations <Ming Burkett - Last Filed: 12/12/18 23:21> <Ace Warner - Last Filed: 12/17/18 08:57> - General Chief complaint: Shortness of Breath Stated complaint: CLEMENCIA Time Seen by Provider: 12/12/18 20:41 - History of Present Illness Initial comments: 58-year-old male patient past medical history of COPD, CVA presents to ED with approximately 3 days of shortness of breath, COPD exacerbation. Patient reports that he has chest pain at baseline, patient states that this is normal for him. Patient reports that chest pain is worse with coughing and is located in his substernal region. Patient states that he has had previous evaluation for this. Patient denies any other complaints today. Patient denies any headache, changes in vision, abdominal pain, nausea vomiting or diarrhea. Systemic: Pt denies fatigue, myalgia, fever/chills, rash. Pt denies weakness, night sweats, weight loss. Neuro: Pt denies headache, visual disturbances, syncope or pre-syncope. HEENT: Pt denies ocular discharge or irritation, otalgia, rhinorrhea, pharyngitis or notable lymphadenopathy. Cardiopulmonary: Pt denies heart palpitations, dyspnea on exertion. Abdominal/GI: Pt denies abdominal pain, n/v/d. : Pt denies dysuria, burning w/ urination, frequency/urgency. Denies new onset urinary or bowel incontinence. MSK: Pt denies myalgia, loss of strength or function in extremities. Neuro: Pt denies new onset weakness, paresthesias. (Ming Burkett) - Related Data Home Medications Medication Instructions Recorded Confirmed Acetaminophen Tab [Tylenol] 650 mg PO Q6H PRN 01/20/17 12/16/18 Folic Acid 1 mg PO DAILY 01/20/17 12/16/18 Acyclovir 400 mg PO BID 11/14/18 12/16/18 Escitalopram [Lexapro] 5 mg PO DAILY 11/14/18 12/16/18 Lisinopril [Zestril] 5 mg PO DAILY 11/14/18 12/16/18 Melatonin 5 mg PO HS PRN 11/14/18 12/16/18 Multivitamins, Thera [Multivitamin 1 tab PO DAILY 12/12/18 12/16/18 (formulary)] predniSONE See Taper PO DAILY 12/16/18 12/16/18 Previous Rx's Medication Instructions Recorded Montelukast [Singulair] 10 mg PO HS #30 tab 11/17/18 Nicotine 14Mg/24Hr Patch [Habitrol] 1 patch TRANSDERM DAILY #30 patch 11/17/18 Pantoprazole [Protonix] 40 mg PO DEAN-CARMENKFSReanna #30 tablet. 11/17/18 Budesonide/Formoterol Fumarate 2 puff INHALATION RT-BID #1 12/15/18 [Symbicort 160-4.5 Mcg Inhaler] hfa.aer.ad Gabapentin 800 mg PO Q6H PRN #20 tablet 12/15/18 Ipratropium-Albuterol Nebulize 3 ml INHALATION RT-QID PRN #60 12/15/18 [Duoneb 0.5 mg-3 mg/3 ml Soln] ampul.neb Allergies Allergy/AdvReac Type Severity Reaction Status Date / Time peanut [Peanut Butter] AdvReac Nausea & Verified 12/16/18 17:32 Vomiting & Diarrhea Review of Systems ROS Other: All systems not noted in ROS Statement are negative. <Ming Burkett - Last Filed: 12/12/18 23:21> ROS Other: All systems not noted in ROS Statement are negative. <Ace Warner - Last Filed: 12/17/18 08:57> ROS Statement: Those systems with pertinent positive or pertinent negative responses have been documented in the HPI. Past Medical History Past Medical History: Chest Pain / Angina, COPD, CVA/TIA, Hypertension, Myocardial Infarction (ME), Pneumonia, Respiratory Disorder Additional Past Medical History / Comment(s): CVA with a a basal ganglia hemorrh age in October 2014. 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 [facility] - 01/17/2017 Last Myocardial Infarction Date:: unknown History of Any Multi-Drug Resistant Organisms: None Reported Past Surgical History: Orthopedic Surgery Additional Past Surgical History / Comment(s): neck fx, metal plate left hand middle finger Past Anesthesia/Blood Transfusion Reactions: No Reported Reaction Past Psychological History: Depression, Panic Disorder Smoking Status: Current every day smoker Past Alcohol Use History: Occasional Past Drug Use History: Marijuana - Past Family History Mother Family Medical History: Cancer Additional Family Medical History / Comment(s): Pt believes his Mom of Kidney Ca, but not 100% sure. Father Family Medical History: Cancer, COPD, Respiratory Disorder Additional Family Medical History / Comment(s): Melonoma <Ming Burkett - Last Filed: 12/12/18 23:21> General Exam Limitations: no limitations <Ming Burkett - Last Filed: 12/12/18 23:21> - General Exam Comments Initial Comments: Constitutional: NAD, AOX3, Pt has pleasant affect. HEENT: NC/AT, trachea midline, neck supple, no lymphadenopathy. Posterior pharynx non erythematous, without exudates. External ears appear normal, without discharge. Mucous membranes moist. Eyes PERRLA, EOM intact. There is no scleral icterus. No pallor noted. Cardiopulmonary: RRR, no murmurs, rubs or gallops, no JVD noted. Mild wheezing noted in anterior and posterior lung brown, improved air movement with breathing treatment. No peripheral edema. Abdominal exam: Abdomen soft and non-distended. Abdomen non-tender to palpation in all 4 quadrants. Bowel sounds active in LLQ. No hepatosplenomegaly. No ecchymosis Neuro: CN II-XII grossly intact. No nuchal rigidity. MSK: No posterior calf tenderness bilaterally, homans sign negative bilaterally. Posterior tibialis and radial pulse +2 bilaterally. Sensation intact in upper and lower extremities. Full active ROM in upper and lower extremities, 5/5 stregnth. (Ming Burkett) Course Vital Signs 12/12/18 12/12/18 12/12/18 20:27 20:40 21:13 Temperature 98.2 F Pulse Rate 96 93 Respiratory 18 18 Rate Blood Pressure 142/95 O2 Sat by Pulse 95 Oximetry 12/12/18 12/12/18 21:28 22:06 Temperature Pulse Rate 94 108 H Respiratory 18 Rate Blood Pressure 158/94 O2 Sat by Pulse 95 Oximetry Medical Decision Making - Lab Data Result diagrams: 12/12/18 20:42 12/12/18 20:42 <Ming Burkett - Last Filed: 12/12/18 23:21> - Lab Data Result diagrams: 12/12/18 20:42 12/15/18 06:46 <Ace Warner - Last Filed: 12/17/18 08:57> - Medical Decision Making 58-year-old male patient past medical history of COPD, CVA presents to ED with approximately 3 days of shortness of breath, COPD exacerbation. Patient reports that he has chest pain at baseline, patient states that this is normal for him. Patient reports that chest pain is worse with coughing and is located in his substernal region. Patient states that he has had previous evaluation for this. Patient denies any other complaints today. Patient denies any headache, changes in vision, abdominal pain, nausea vomiting or diarrhea. Patient has some stable, afebrile. Physical exam displayed: Mild wheezing noted in anterior and posterior lung brown, improved air movement with breathing treatment. EKg not concerning for acute ischemia. Laboratory investigations revealed an impressive CBC, CMP. Upon negative. BNP within normal limits. Correlation studies non- impressive. D-dimer mildly elevated. Chest x-ray displayed subsegmental atelectasis. CT angiography revealed no pulmonary embolism, 2 pulmonary nodu les. Patient will be admitted for COPD exacerbation. Pt admitted to Dr. Cano. Case discussed with Dr. Stallings. (Ming Burkett) I saw this patient in conjunction with the physician cable splicer assistant. I performed independent history and physical exam. Agree with case management. (Ace Warner) - Lab Data Lab Results 12/12/18 12/12/18 12/12/18 Range/Units 20:42 20:42 20:42 WBC 8.1 (3.8-10.6) k/uL RBC 4.98 (4.30-5.90) m/uL Hgb 16.8 (13.0-17.5) gm/dL Hct 48.6 (39.0-53.0) % MCV 97.6 (80.0-100.0) fL MCH 33.7 (25.0-35.0) pg MCHC 34.5 (31.0-37.0) g/dL RDW 14.0 (11.5-15.5) % Plt Count 225 (150-450) k/uL Neutrophils % 59 % Lymphocytes % 23 % Monocytes % 9 % Eosinophils % 3 % Basophils % 1 % Neutrophils # 4.8 (1.3-7.7) k/uL Lymphocytes # 1.8 (1.0-4.8) k/uL Monocytes # 0.7 (0-1.0) k/uL Eosinophils # 0.2 (0-0.7) k/uL Basophils # 0.0 (0-0.2) k/uL PT 9.5 (9.0-12.0) sec INR 0.9 (<1.2) APTT 24.7 (22.0-30.0) sec D-Dimer 0.81 H (<0.60) mg/L FEU Sodium 131 L (137-145) mmol/L Potassium 4.5 (3.5-5.1) mmol/L Chloride 95 L (98-107) mmol/L Carbon Dioxide 23 (22-30) mmol/L Anion Gap 13 mmol/L BUN 7 L (9-20) mg/dL Creatinine 0.54 L (0.66-1.25) mg/dL Est GFR (CKD-EPI)AfAm >90 (>60 ml/min/1.73 sqM) Est GFR (CKD-EPI)NonAf >90 (>60 ml/min/1.73 sqM) Glucose 84 (74-99) mg/dL POC Glucose (mg/dL) (75-99) mg/dL POC Glu Implementation Advisor ID Calcium 9.5 (8.4-10.2) mg/dL Magnesium 1.6 (1.6-2.3) mg/dL Total Bilirubin 0.7 (0.2-1.3) mg/dL AST 52 (17-59) U/L ALT 59 (21-72) U/L Alkaline Phosphatase 71 (38-126) U/L Troponin I (0.000-0.034) ng/mL NT-Pro-B Natriuret Pep pg/mL Total Protein 6.6 (6.3-8.2) g/dL Albumin 4.2 (3.5-5.0) g/dL 12/12/18 12/12/18 12/12/18 Range/Units 20:42 20:42 23:46 WBC (3.8-10.6) k/uL RBC (4.30-5.90) m/uL Hgb (13.0-17.5) gm/dL Hct (39.0-53.0) % MCV (80.0-100.0) fL MCH (25.0-35.0) pg MCHC (31.0-37.0) g/dL RDW (11.5-15.5) % Plt Count (150-450) k/uL Neutrophils % % Lymphocytes % % Monocytes % % Eosinophils % % Basophils % % Neutrophils # (1.3-7.7) k/uL Lymphocytes # (1.0-4.8) k/uL Monocytes # (0-1.0) k/uL Eosinophils # (0-0.7) k/uL Basophils # (0-0.2) k/uL PT (9.0-12.0) sec INR (<1.2) APTT (22.0-30.0) sec D-Dimer (<0.60) mg/L FEU Sodium (137-145) mmol/L Potassium (3.5-5.1) mmol/L Chloride (98-107) mmol/L Carbon Dioxide (22-30) mmol/L Anion Gap mmol/L BUN (9-20) mg/dL Creatinine (0.66-1.25) mg/dL Est GFR (CKD-EPI)AfAm (>60 ml/min/1.73 sqM) Est GFR (CKD-EPI)NonAf (>60 ml/min/1.73 sqM) Glucose (74-99) mg/dL POC Glucose (mg/dL) (75-99) mg/dL POC Glu Implementation Advisor ID Calcium (8.4-10.2) mg/dL Magnesium (1.6-2.3) mg/dL Total Bilirubin (0.2-1.3) mg/dL AST (17-59) U/L ALT (21-72) U/L Alkaline Phosphatase (38-126) U/L Troponin I <0.012 <0.012 (0.000-0.034) ng/mL NT-Pro-B Natriuret Pep 44 pg/mL Total Protein (6.3-8.2) g/dL Albumin (3.5-5.0) g/dL 12/13/18 12/13/18 12/13/18 Range/Units 06:44 07:54 11:43 WBC (3.8-10.6) k/uL RBC (4.30-5.90) m/uL Hgb (13.0-17.5) gm/dL Hct (39.0-53.0) % MCV (80.0-100.0) fL MCH (25.0-35.0) pg MCHC (31.0-37.0) g/dL RDW (11.5-15.5) % Plt Count (150-450) k/uL Neutrophils % % Lymphocytes % % Monocytes % % Eosinophils % % Basophils % % Neutrophils # (1.3-7.7) k/uL Lymphocytes # (1.0-4.8) k/uL Monocytes # (0-1.0) k/uL Eosinophils # (0-0.7) k/uL Basophils # (0-0.2) k/uL PT (9.0-12.0) sec INR (<1.2) APTT (22.0-30.0) sec D-Dimer (<0.60) mg/L FEU Sodium (137-145) mmol/L Potassium (3.5-5.1) mmol/L Chloride (98-107) mmol/L Carbon Dioxide (22-30) mmol/L Anion Gap mmol/L BUN (9-20) mg/dL Creatinine (0.66-1.25) mg/dL Est GFR (CKD-EPI)AfAm (>60 ml/min/1.73 sqM) Est GFR (CKD-EPI)NonAf (>60 ml/min/1.73 sqM) Glucose (74-99) mg/dL POC Glucose (mg/dL) 253 H 214 H (75-99) mg/dL POC Glu Implementation Advisor ID Blue, Rita Blue, Rita Calcium (8.4-10.2) mg/dL Magnesium (1.6-2.3) mg/dL Total Bilirubin (0.2-1.3) mg/dL AST (17-59) U/L ALT (21-72) U/L Alkaline Phosphatase (38-126) U/L Troponin I <0.012 (0.000-0.034) ng/mL NT-Pro-B Natriuret Pep pg/mL Total Protein (6.3-8.2) g/dL Albumin (3.5-5.0) g/dL 12/13/18 12/13/18 12/14/18 Range/Units 16:47 20:35 07:11 WBC (3.8-10.6) k/uL RBC (4.30-5.90) m/uL Hgb (13.0-17.5) gm/dL Hct (39.0-53.0) % MCV (80.0-100.0) fL MCH (25.0-35.0) pg MCHC (31.0-37.0) g/dL RDW (11.5-15.5) % Plt Count (150-450) k/uL Neutrophils % % Lymphocytes % % Monocytes % % Eosinophils % % Basophils % % Neutrophils # (1.3-7.7) k/uL Lymphocytes # (1.0-4.8) k/uL Monocytes # (0-1.0) k/uL Eosinophils # (0-0.7) k/uL Basophils # (0-0.2) k/uL PT (9.0-12.0) sec INR (<1.2) APTT (22.0-30.0) sec D-Dimer (<0.60) mg/L FEU Sodium (137-145) mmol/L Potassium (3.5-5.1) mmol/L Chloride (98-107) mmol/L Carbon Dioxide (22-30) mmol/L Anion Gap mmol/L BUN (9-20) mg/dL Creatinine (0.66-1.25) mg/dL Est GFR (CKD-EPI)AfAm (>60 ml/min/1.73 sqM) Est GFR (CKD-EPI)NonAf (>60 ml/min/1.73 sqM) Glucose (74-99) mg/dL POC Glucose (mg/dL) 205 H 135 H 203 H (75-99) mg/dL POC Glu Implementation Advisor ID Blue, Cynthia Gore Jessica Calcium (8.4-10.2) mg/dL Magnesium (1.6-2.3) mg/dL Total Bilirubin (0.2-1.3) mg/dL AST (17-59) U/L ALT (21-72) U/L Alkaline Phosphatase (38-126) U/L Troponin I (0.000-0.034) ng/mL NT-Pro-B Natriuret Pep pg/mL Total Protein (6.3-8.2) g/dL Albumin (3.5-5.0) g/dL 12/14/18 12/14/18 Range/Units 11:52 16:48 WBC (3.8-10.6) k/uL RBC (4.30-5.90) m/uL Hgb (13.0-17.5) gm/dL Hct (39.0-53.0) % MCV (80.0-100.0) fL MCH (25.0-35.0) pg MCHC (31.0-37.0) g/dL RDW (11.5-15.5) % Plt Count (150-450) k/uL Neutrophils % % Lymphocytes % % Monocytes % % Eosinophils % % Basophils % % Neutrophils # (1.3-7.7) k/uL Lymphocytes # (1.0-4.8) k/uL Monocytes # (0-1.0) k/uL Eosinophils # (0-0.7) k/uL Basophils # (0-0.2) k/uL PT (9.0-12.0) sec INR (<1.2) APTT (22.0-30.0) sec D-Dimer (<0.60) mg/L FEU Sodium (137-145) mmol/L Potassium (3.5-5.1) mmol/L Chloride (98-107) mmol/L Carbon Dioxide (22-30) mmol/L Anion Gap mmol/L BUN (9-20) mg/dL Creatinine (0.66-1.25) mg/dL Est GFR (CKD-EPI)AfAm (>60 ml/min/1.73 sqM) Est GFR (CKD-EPI)NonAf (>60 ml/min/1.73 sqM) Glucose (74-99) mg/dL POC Glucose (mg/dL) 151 H 122 H (75-99) mg/dL POC Glu Implementation Advisor ID Ssuan Hernandes Ashlyn Calcium (8.4-10.2) mg/dL Magnesium (1.6-2.3) mg/dL Total Bilirubin (0.2-1.3) mg/dL AST (17-59) U/L ALT (21-72) U/L Alkaline Phosphatase (38-126) U/L Troponin I (0.000-0.034) ng/mL NT-Pro-B Natriuret Pep pg/mL Total Protein (6.3-8.2) g/dL Albumin (3.5-5.0) g/dL Disposition Is patient prescribed a controlled substance at d/c from ED?: No <Ming Burkett - Last Filed: 12/12/18 23:21> <Ace Warner - Last Filed: 12/17/18 08:57> Clinical Impression: COPD exacerbation Disposition: ADMITTED IP TO THIS HOSP Condition: Serious
--- NOTE | 2018-12-12 23:22 | ED ---
Medical Decision Making - Lab Data Result diagrams: 12/12/18 20:42 12/12/18 20:42 Lab Results 12/12/18 12/12/18 12/12/18 Range/Units 20:42 20:42 20:42 WBC 8.1 (3.8-10.6) k/uL RBC 4.98 (4.30-5.90) m/uL Hgb 16.8 (13.0-17.5) gm/dL Hct 48.6 (39.0-53.0) % MCV 97.6 (80.0-100.0) fL MCH 33.7 (25.0-35.0) pg MCHC 34.5 (31.0-37.0) g/dL RDW 14.0 (11.5-15.5) % Plt Count 225 (150-450) k/uL Neutrophils % 59 % Lymphocytes % 23 % Monocytes % 9 % Eosinophils % 3 % Basophils % 1 % Neutrophils # 4.8 (1.3-7.7) k/uL Lymphocytes # 1.8 (1.0-4.8) k/uL Monocytes # 0.7 (0-1.0) k/uL Eosinophils # 0.2 (0-0.7) k/uL Basophils # 0.0 (0-0.2) k/uL PT 9.5 (9.0-12.0) sec INR 0.9 (<1.2) APTT 24.7 (22.0-30.0) sec D-Dimer 0.81 H (<0.60) mg/L FEU Sodium 131 L (137-145) mmol/L Potassium 4.5 (3.5-5.1) mmol/L Chloride 95 L (98-107) mmol/L Carbon Dioxide 23 (22-30) mmol/L Anion Gap 13 mmol/L BUN 7 L (9-20) mg/dL Creatinine 0.54 L (0.66-1.25) mg/dL Est GFR (CKD-EPI)AfAm >90 (>60 ml/min/1.73 sqM) Est GFR (CKD-EPI)NonAf >90 (>60 ml/min/1.73 sqM) Glucose 84 (74-99) mg/dL Calcium 9.5 (8.4-10.2) mg/dL Magnesium 1.6 (1.6-2.3) mg/dL Total Bilirubin 0.7 (0.2-1.3) mg/dL AST 52 (17-59) U/L ALT 59 (21-72) U/L Alkaline Phosphatase 71 (38-126) U/L Troponin I (0.000-0.034) ng/mL NT-Pro-B Natriuret Pep pg/mL Total Protein 6.6 (6.3-8.2) g/dL Albumin 4.2 (3.5-5.0) g/dL 12/12/18 12/12/18 Range/Units 20:42 20:42 WBC (3.8-10.6) k/uL RBC (4.30-5.90) m/uL Hgb (13.0-17.5) gm/dL Hct (39.0-53.0) % MCV (80.0-100.0) fL MCH (25.0-35.0) pg MCHC (31.0-37.0) g/dL RDW (11.5-15.5) % Plt Count (150-450) k/uL Neutrophils % % Lymphocytes % % Monocytes % % Eosinophils % % Basophils % % Neutrophils # (1.3-7.7) k/uL Lymphocytes # (1.0-4.8) k/uL Monocytes # (0-1.0) k/uL Eosinophils # (0-0.7) k/uL Basophils # (0-0.2) k/uL PT (9.0-12.0) sec INR (<1.2) APTT (22.0-30.0) sec D-Dimer (<0.60) mg/L FEU Sodium (137-145) mmol/L Potassium (3.5-5.1) mmol/L Chloride (98-107) mmol/L Carbon Dioxide (22-30) mmol/L Anion Gap mmol/L BUN (9-20) mg/dL Creatinine (0.66-1.25) mg/dL Est GFR (CKD-EPI)AfAm (>60 ml/min/1.73 sqM) Est GFR (CKD-EPI)NonAf (>60 ml/min/1.73 sqM) Glucose (74-99) mg/dL Calcium (8.4-10.2) mg/dL Magnesium (1.6-2.3) mg/dL Total Bilirubin (0.2-1.3) mg/dL AST (17-59) U/L ALT (21-72) U/L Alkaline Phosphatase (38-126) U/L Troponin I <0.012 (0.000-0.034) ng/mL NT-Pro-B Natriuret Pep 44 pg/mL Total Protein (6.3-8.2) g/dL Albumin (3.5-5.0) g/dL - EKG Data -: EKG Interpreted by Me (and dr newman) EKG Comments: Ventricular rate 94, painful and 62, QRS 86, QT/QTC 350/437. Normal sinus rhythm, normal EKG, no concern for acute ischemia. Disposition Clinical Impression: COPD exacerbation Disposition: ADMITTED IP TO THIS HOSP Condition: Serious Is patient prescribed a controlled substance at d/c from ED?: No Referrals: Urszula Carrasco MD [Primary Care Provider] - 1-2 days
[2018-12-13] MEDS: methylPREDNISolone SOD SUCCI 125 MG/2 ML VIAL IV SCH ×2 (01:11→05:27)
[2018-12-13 01:29] VITALS: BMI 29.7
[2018-12-13] MEDS: IPRATROPIUM-ALBUTEROL 3 ML NEB INHALATION PRN ×2 (01:46→23:14)
[2018-12-13] MEDS: IPRATROPIUM-ALBUTEROL 3 ML NEB INHALATION SCH ×4 (06:12→18:56)
[2018-12-13 06:49] LABS: Glucose,Whole Blood 253 mg/dL (75-99)
[2018-12-13] MEDS ORDERED: ACETAMINOPHEN TAB 325 MG TAB PO PRN (11:08)
[2018-12-13] MEDS ORDERED: MELATONIN 5 MG TABLET PO PRN (11:08)
[2018-12-13] MEDS: NICOTINE 14MG/24HR PATCH TRANSDERM SCH (11:25)
[2018-12-13] MEDS: GABAPENTIN 400 MG CAP PO PRN ×3 (11:27→23:57)
[2018-12-13 11:57] LABS: Glucose,Whole Blood 214 mg/dL (75-99)
--- NOTE | 2018-12-13 11:59 | P.HPIM ---
History of Present Illness 58-year-old male with history of COPD can use to smoke about 2-4cigarettes a day had significant smoking history came in with comments of shortness of breath cough with the ALLERGIC to greenish sputum production. Patient has significant wheezing on exam chest x-ray did not show any pneumonic process CT angios the chest was done which did not show any pulmonary edema and pneumonia. Patient doesn't use any oxygen at home patient is presently on 3 L of oxygenthe patient is also coming of [place] skeletal chest pain from my excess coughing and requesting something for cough. Review of Systems REVIEW OF SYSTEMS: CONSTITUTIONAL: No fever, no malaise, no fatigue. HEENT: No recent visual problems or hearing problems. Denied any sore throat. CARDIOVASCULAR: No orthopnea, PND, no palpitations, no syncope. PULMONARY no hemoptysis. GASTROINTESTINAL: No diarrhea, no nausea, no vomiting, no abdominal pain. NEUROLOGICAL: No headaches, no weakness, no numbness. HEMATOLOGICAL: Denies any bleeding or petechiae. GENITOURINARY: Denies any burning micturition, frequency, or urgency. MUSCULOSKELETAL/RHEUMATOLOGICAL: Denies any joint pain, swelling, or any muscle pain. ENDOCRINE: Denies any polyuria or polydipsia. The rest of the 14-point review of systems is negative. Past Medical History Past Medical History: Chest Pain / Angina, COPD, CVA/TIA, Hypertension, Myocardial Infarction (VT), Pneumonia, Respiratory Disorder Additional Past Medical History / Comment(s): 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 Smoking Status: Current every day smoker Past Alcohol Use History: Occasional Additional Past Alcohol Use History / Comment(s): STARTED SMOKING 1975 1 PPD- QUIT 6 MONTHS AGO, PT STATED HE DRINKS AN 2 BEER a day Past Drug Use History: Marijuana Additional Drug Use History / Comment(s): PAST MARIJUANA USE IN HIS TEEN YEARS. - Past Family History Mother Family Medical History: Cancer Additional Family Medical History / Comment(s): Pt believes his Mom of Kidney Ca, but not 100% sure. Father Family Medical History: Cancer, COPD, Respiratory Disorder Additional Family Medical History / Comment(s): Melonoma Medications and Allergies Home Medications Medication Instructions Recorded Confirmed Type Acetaminophen Tab [Tylenol] 650 mg PO Q6H PRN 01/20/17 12/12/18 History Folic Acid 1 mg PO DAILY 01/20/17 12/12/18 History Acyclovir 400 mg PO BID 11/14/18 12/12/18 History Budesonide/Formoterol Fumarate 2 puff INHALATION RT-BID 11/14/18 12/12/18 History [Symbicort 160-4.5 Mcg Inhaler] Escitalopram [Lexapro] 5 mg PO DAILY 11/14/18 12/12/18 History Famotidine [Pepcid] 20 mg PO BID 11/14/18 12/12/18 History Gabapentin 800 mg PO Q6H PRN 11/14/18 12/12/18 History Lisinopril [Zestril] 5 mg PO DAILY 11/14/18 12/12/18 History Melatonin 5 mg PO HS PRN 11/14/18 12/12/18 History amLODIPine [Norvasc] 10 mg PO DAILY 11/14/18 12/12/18 History Montelukast [Singulair] 10 mg PO HS #30 tab 11/17/18 12/12/18 Rx Nicotine 14Mg/24Hr Patch [Habitrol] 1 patch TRANSDERM DAILY #30 patch 11/17/18 12/12/18 Rx Pantoprazole [Protonix] 40 mg PO AC-BRKFST #30 tablet.dr 11/17/18 12/12/18 Rx Ipratropium-Albuterol Nebulize 3 ml INHALATION RT-QID PRN 12/12/18 12/12/18 History [Duoneb 0.5 mg-3 mg/3 ml Soln] Multivitamins, Thera [Multivitamin 1 tab PO DAILY 12/12/18 12/12/18 History (formulary)] Allergies Allergy/AdvReac Type Severity Reaction Status Date / Time peanut [Peanut Butter] AdvReac Nausea & Verified 12/12/18 20:38 Vomiting & Diarrhea Physical Exam Vitals: Vital Signs Temp Pulse Pulse Resp BP BP Pulse Ox 12/13/18 10:43 79 12/13/18 10:31 76 12/13/18 08:05 98/54 12/13/18 08:00 99 18 12/13/18 06:42 97.6 F 80 20 75/45 96 12/13/18 06:21 82 12/13/18 06:12 82 12/13/18 04:52 98.1 F 99 18 154/86 92 L 12/13/18 01:59 80 12/13/18 01:47 80 12/13/18 01:12 98.1 F 105 H 18 134/73 93 L 12/13/18 00:26 98.6 F 98 18 149/87 98 12/12/18 22:06 108 H 18 158/94 95 12/12/18 21:28 94 12/12/18 21:13 93 12/12/18 20:40 18 12/12/18 20:27 98.2 F 96 18 142/95 95 Intake and Output 12/12/18 12/13/18 12/13/18 22:59 06:59 14:59 Other: # Voids 2 2 Weight 83.461 kg PHYSICAL EXAMINATION: GENERAL: The patient is alert and oriented x3, thin built HEENT: Pupils are round and equally reacting to light. EOMI. No scleral icterus. No conjunctival pallor. Normocephalic, atraumatic. No pharyngeal erythema. No thyromegaly. CARDIOVASCULAR: S1 and S2 present. No murmurs, rubs, or gallops. PULMONARY: his mild respiratory distress, significantly limited air entry into bilateral lung brown significant expiratory wheezing on exam. There is some reproducible chest pain on the right side of the chest from excess coughing and musculoskeletal ABDOMEN: Soft, nontender, nondistended, normoactive bowel sounds. No palpable organomegaly. MUSCULOSKELETAL: No joint swelling or deformity. EXTREMITIES: No cyanosis, clubbing, or pedal edema. NEUROLOGICAL: Gross neurological examination did not reveal any focal deficits. SKIN: No rashes. Results CBC & Chem 7: 12/12/18 20:42 12/12/18 20:42 Labs: Abnormal Lab Results - Last 24 Hours (Table) 12/12/18 12/12/18 12/13/18 Range/Units 20:42 20:42 06:44 D-Dimer 0.81 H (<0.60) mg/L FEU Sodium 131 L (137-145) mmol/L Chloride 95 L (98-107) mmol/L BUN 7 L (9-20) mg/dL Creatinine 0.54 L (0.66-1.25) mg/dL POC Glucose (mg/dL) 253 H (75-99) mg/dL Assessment and Plan Plan: -acute hypercapnic respiratory failuresecondary to COPD exacerbation: Patient will be continued on systemic steroids, inhalational treatments. Patient will be continued on azithromycin -Hypotension patient was started on IV fluids and patient's SANDHYA inhibitor and calcium Amy will be held. -Continue nicotine use excessive counseling was provided regarding this -Ruled out pneumonia and pulmonary embolism -Chest pain musculoskeletal from coughing -hypertension -Severity in the past -Depression -patient will need pharmacologically GI as well as DVT prophylaxis
[2018-12-13] MEDS: INSULIN ASPART (NovoLOG) 100 UNIT/ML VIAL SQ SCH ×3 (13:52→20:38)
[2018-12-13] MEDS: guaiFENesin-DM 600/30MG 1 EACH TAB.ER.12H PO SCH ×2 (13:52→20:44)
[2018-12-13] MEDS: traMADol 50 MG TAB PO PRN ×2 (14:09→20:44)
[2018-12-13] MEDS: SODIUM CHLORIDE 0.9% 1,000 ML IV SCH ×2 (15:26→20:45)
[2018-12-13 16:51] LABS: Glucose,Whole Blood 205 mg/dL (75-99)
[2018-12-13] MEDS: HEPARIN SODIUM,PORCINE 5,000 UNIT/ML 1 ML VIAL SQ SCH ×2 (17:59→23:57)
[2018-12-13] MEDS: SYMBICORT 160-4.5 MCG INHALER INHALATION SCH (18:56)
[2018-12-13 20:36] LABS: Glucose,Whole Blood 135 mg/dL (75-99)
[2018-12-13] MEDS: MONTELUKAST 10 MG TAB PO SCH (20:44)
[2018-12-13] MEDS: methylPREDNISolone SOD SUCCI 40 MG/ML 1 ML VIAL IV SCH (20:45)
[2018-12-13] MEDS ORDERED: FAMOTIDINE 20 MG TAB PO SCH (21:00)
[2018-12-14] MEDS: traMADol 50 MG TAB PO PRN ×4 (03:15→22:50)
[2018-12-14] MEDS: IPRATROPIUM-ALBUTEROL 3 ML NEB INHALATION PRN ×2 (04:02→23:35)
[2018-12-14] MEDS: SODIUM CHLORIDE 0.9% 1,000 ML IV SCH ×2 (05:19→16:53)
[2018-12-14] MEDS: GABAPENTIN 400 MG CAP PO PRN ×3 (05:20→18:42)
[2018-12-14] MEDS: IPRATROPIUM-ALBUTEROL 3 ML NEB INHALATION SCH ×4 (07:01→20:12)
[2018-12-14] MEDS: SYMBICORT 160-4.5 MCG INHALER INHALATION SCH ×2 (07:02→20:12)
[2018-12-14 07:17] LABS: Glucose,Whole Blood 203 mg/dL (75-99)
[2018-12-14] MEDS: PANTOPRAZOLE 40 MG TABLET PO SCH (08:46)
[2018-12-14] MEDS: methylPREDNISolone SOD SUCCI 40 MG/ML 1 ML VIAL IV SCH ×2 (08:47→20:43)
[2018-12-14] MEDS: INSULIN ASPART (NovoLOG) 100 UNIT/ML VIAL SQ SCH ×4 (08:47→20:43)
[2018-12-14] MEDS: NICOTINE 14MG/24HR PATCH TRANSDERM SCH (08:48)
[2018-12-14] MEDS: HEPARIN SODIUM,PORCINE 5,000 UNIT/ML 1 ML VIAL SQ SCH ×2 (08:48→16:49)
[2018-12-14] MEDS: FOLIC ACID 1 MG TAB PO SCH (08:48)
[2018-12-14] MEDS: guaiFENesin-DM 600/30MG 1 EACH TAB.ER.12H PO SCH ×2 (08:49→20:42)
[2018-12-14] MEDS: ESCITALOPRAM 5 MG TAB PO SCH (08:49)
[2018-12-14 11:55] LABS: Glucose,Whole Blood 151 mg/dL (75-99)
--- NOTE | 2018-12-14 14:33 | P.PN ---
Subjective 58-year-old admitted for COPD exacerbation patient is still wheezing at although significantly improved compared to yesterday patient is hyponatremic I will continue with IV fluids and recheck the serum sodium tomorrow patient probably can be discharged tomorrow I last the patient ablated in the hallways saturating at 91% on room air. Constitutional: Denied any fatigue denied any fever. Cardio vascular: denied any chest pain, palpitations Gastrointestinal denied any nausea vomiting Pulmonary: Improved shortness of breath Neurologic denied any new focal deficits All inpatient medications were reviewed and appropriate changes in these medica tions as dictated in the interval history and assessment and plan. Objective - Vital Signs Vital signs: Vital Signs Temp 98.3 F 12/14/18 13:25 Pulse 110 H 12/14/18 13:25 Resp 18 12/14/18 13:25 BP 156/89 12/14/18 13:25 Pulse Ox 91 L 12/14/18 13:25 Intake & Output 12/13/18 12/14/18 12/14/18 18:59 06:59 18:59 Other: # Voids 2 2 - Exam PHYSICAL EXAMINATION: GENERAL: The patient is alert and oriented x3, thin built HEENT: Pupils are round and equally reacting to light. EOMI. No scleral icterus. No conjunctival pallor. Normocephalic, atraumatic. No pharyngeal erythema. No thyromegaly. CARDIOVASCULAR: S1 and S2 present. No murmurs, rubs, or gallops. PULMONARY: Minimal expiratory wheezing fairly good air entry into bilateral lung brown ABDOMEN: Soft, nontender, nondistended, normoactive bowel sounds. No palpable organomegaly. MUSCULOSKELETAL: No joint swelling or deformity. EXTREMITIES: No cyanosis, clubbing, or pedal edema. NEUROLOGICAL: Gross neurological examination did not reveal any focal deficits. SKIN: No rashes. - Labs CBC & Chem 7: 12/12/18 20:42 12/12/18 20:42 Labs: Abnormal Lab Results - Last 24 Hours (Table) 12/13/18 12/13/18 12/14/18 Range/Units 16:47 20:35 07:11 POC Glucose (mg/dL) 205 H 135 H 203 H (75-99) mg/dL 12/14/18 Range/Units 11:52 POC Glucose (mg/dL) 151 H (75-99) mg/dL Assessment and Plan Plan: -acute hypercapnic respiratory failuresecondary to COPD exacerbation: Patient will be continued on systemic steroids, inhalational treatments. Patient will be continued on azithromycin -Hypotension patient was started on IV fluids and patient's blood pressure improved -Continue nicotine use excessive counseling was provided regarding this -Ruled out pneumonia and pulmonary embolism -Chest pain musculoskeletal from coughing -hypertension -Severity in the past -Depression -patient will need pharmacologically GI as well as DVT prophylaxis
[2018-12-14] MEDS: LISINOPRIL 5 MG TAB PO SCH (16:48)
[2018-12-14 17:14] LABS: Glucose,Whole Blood 122 mg/dL (75-99)
[2018-12-14 20:15] LABS: Glucose,Whole Blood 167 mg/dL (75-99)
[2018-12-14] MEDS: MONTELUKAST 10 MG TAB PO SCH (20:42)
[2018-12-14] MEDS: ACYCLOVIR 200 MG CAP PO SCH (20:42)
[2018-12-15] MEDS: HEPARIN SODIUM,PORCINE 5,000 UNIT/ML 1 ML VIAL SQ SCH ×2 (00:35→07:04)
[2018-12-15] MEDS: GABAPENTIN 400 MG CAP PO PRN ×3 (01:10→12:19)
[2018-12-15] MEDS: IPRATROPIUM-ALBUTEROL 3 ML NEB INHALATION PRN ×2 (03:37→13:20)
[2018-12-15] MEDS: traMADol 50 MG TAB PO PRN ×2 (05:50→12:19)
[2018-12-15 06:59] LABS: Glucose,Whole Blood 141 mg/dL (75-99)
[2018-12-15] MEDS: ESCITALOPRAM 5 MG TAB PO SCH (07:03)
[2018-12-15] MEDS: ACYCLOVIR 200 MG CAP PO SCH (07:04)
[2018-12-15] MEDS: PANTOPRAZOLE 40 MG TABLET PO SCH (07:04)
[2018-12-15] MEDS: methylPREDNISolone SOD SUCCI 40 MG/ML 1 ML VIAL IV SCH (07:04)
[2018-12-15] MEDS: FOLIC ACID 1 MG TAB PO SCH (07:04)
[2018-12-15] MEDS: guaiFENesin-DM 600/30MG 1 EACH TAB.ER.12H PO SCH (07:04)
[2018-12-15] MEDS: LISINOPRIL 5 MG TAB PO SCH (07:04)
[2018-12-15] MEDS: NICOTINE 14MG/24HR PATCH TRANSDERM SCH (07:04)
[2018-12-15] MEDS: SODIUM CHLORIDE 0.9% 1,000 ML IV SCH ×2 (07:05→12:10)
[2018-12-15] MEDS: INSULIN ASPART (NovoLOG) 100 UNIT/ML VIAL SQ SCH ×2 (07:23→12:21)
[2018-12-15 07:44] LABS: Anion Gap 5 mmol/L; Blood Urea Nitrogen 9 mg/dL (9-20); Calcium 9.1 mg/dL (8.4-10.2); Carbon Dioxide 29 mmol/L (22-30); Chloride 101 mmol/L (98-107); Glucose 126 mg/dL (74-99); Potassium 4.1 mmol/L (3.5-5.1); Sodium 135 mmol/L (137-145)
[2018-12-15] MEDS: IPRATROPIUM-ALBUTEROL 3 ML NEB INHALATION SCH ×2 (08:03→11:18)
[2018-12-15] MEDS: SYMBICORT 160-4.5 MCG INHALER INHALATION SCH (08:03)
[2018-12-15 11:55] LABS: Glucose,Whole Blood 139 mg/dL (75-99)
--- NOTE | 2018-12-15 12:20 | P.DS ---
Providers Date of admission: 12/14/18 18:10 Attending physician: Tricia Cano Primary care physician: [place] [facility] Course: 58-year-old admitted for COPD exacerbation patient is still wheezing at although significantly improved compared to yesterday patient is hyponatremic I will continue with IV fluids and recheck the serum sodium tomorrow patient probably can be discharged tomorrow I last the patient ablated in the hallways saturating at 91% on room air. 12/15/2018 Patient is not requiring any oxygen at this time. Patient has good air entry into bilateral lung brown. Patient will be discharged today. PHYSICAL EXAMINATION: GENERAL: The patient is alert and oriented x3, not in any acute distress. Well developed, well nourished. HEENT: Pupils are round and equally reacting to light. EOMI. No scleral icterus. No conjunctival pallor. Normocephalic, atraumatic. No pharyngeal erythema. No thyromegaly. CARDIOVASCULAR: S1 and S2 present. No murmurs, rubs, or gallops. PULMONARY: Chest is clear to auscultation, no wheezing or crackles. ABDOMEN: Soft, nontender, nondistended, normoactive bowel sounds. No palpable organomegaly. MUSCULOSKELETAL: No joint swelling or deformity. EXTREMITIES: No cyanosis, clubbing, or pedal edema. NEUROLOGICAL: Gross neurological examination did not reveal any focal deficits. SKIN: No rashes. Assessment and Plan Plan: -acute hypercapnic respiratory failure secondary to COPD exacerbation. -Hypotension improved with IV fluids and discontinuation of amlodipine. -Continue nicotine use excessive counseling was provided regarding this -Ruled out pneumonia and pulmonary embolism -Chest pain musculoskeletal from coughing -hypertension -Severity in the past -Depression Hyponatremia resolved with IV fluids Patient Condition at Discharge: Serious Plan - Discharge Summary New Discharge Prescriptions: New predniSONE 10 mg PO DAILY #30 tab Continue Acetaminophen Tab [Tylenol] 650 mg PO Q6H PRN PRN Reason: Pain Folic Acid 1 mg PO DAILY Acyclovir 400 mg PO BID Lisinopril [Zestril] 5 mg PO DAILY Escitalopram [Lexapro] 5 mg PO DAILY Melatonin 5 mg PO HS PRN PRN Reason: Insomnia Nicotine 14Mg/24Hr Patch [Habitrol] 1 patch TRANSDERM DAILY #30 patch Pantoprazole [Protonix] 40 mg PO AC-BRKFST #30 tablet.dr Montelukast [Singulair] 10 mg PO HS #30 tab Multivitamins, Thera [Multivitamin (formulary)] 1 tab PO DAILY Gabapentin 800 mg PO Q6H PRN #20 tablet PRN Reason: Pain Ipratropium-Albuterol Nebulize [Duoneb 0.5 mg-3 mg/3 ml Soln] 3 ml INHALATION RT-QID PRN #60 ampul.neb PRN Reason: Shortness Of Breath Budesonide/Formoterol Fumarate [Symbicort 160-4.5 Mcg Inhaler] 2 puff INHALATION RT-BID #1 hfa.aer.ad Discontinued amLODIPine [Norvasc] 10 mg PO DAILY Famotidine [Pepcid] 20 mg PO BID Discharge Medication List Acetaminophen Tab [Tylenol] 650 mg PO Q6H PRN 01/20/17 [History] Folic Acid 1 mg PO DAILY 01/20/17 [History] Acyclovir 400 mg PO BID 11/14/18 [History] Escitalopram [Lexapro] 5 mg PO DAILY 11/14/18 [History] Lisinopril [Zestril] 5 mg PO DAILY 11/14/18 [History] Melatonin 5 mg PO HS PRN 11/14/18 [History] Montelukast [Singulair] 10 mg PO HS #30 tab 11/17/18 [Rx] Nicotine 14Mg/24Hr Patch [Habitrol] 1 patch TRANSDERM DAILY #30 patch 11/17/18 [Rx] Pantoprazole [Protonix] 40 mg PO AC-BRKFST #30 tablet. 11/17/18 [Rx] Multivitamins, Thera [Multivitamin (formulary)] 1 tab PO DAILY 12/12/18 [History] Budesonide/Formoterol Fumarate [Symbicort 160-4.5 Mcg Inhaler] 2 puff INHALATION RT-BID #1 hfa.aer.ad 12/15/18 [Rx] Gabapentin 800 mg PO Q6H PRN #20 tablet 12/15/18 [Rx] Ipratropium-Albuterol Nebulize [Duoneb 0.5 mg-3 mg/3 ml Soln] 3 ml INHALATION RT-QID PRN #60 ampul.neb 12/15/18 [Rx] predniSONE 10 mg PO DAILY #30 tab 12/15/18 [Rx] Follow up Appointment(s)/Referral(s): Urszula Carrasco MD [Primary Care Provider] - 3 Days Activity/Diet/Wound Care/Special Instructions: pt will be d/c home with a nebulizer Discharge Disposition: HOME SELF-CARE
[2018-12-15 12:41] VITALS: BP 159/95; RESP 20; TEMP 97
[2018-12-15 13:23] VITALS: PULSE 100
== END 2018-12-15 14:17 | disposition home or self-care (01) | DRG 190 ==
LOC: EC 20:25 → 3NMEDONC 23:00 → OBSVTOIN 12-14 18:10
PROVIDERS: ADMIT Hospitalist; ATTEND Hospitalist
DX: J44.1 Chronic obstructive pulmonary disease with (acute) exacerbation (principal); J96.02 Acute respiratory failure with hypercapnia; E87.1 Hypo-osmolality and hyponatremia; J98.11 Atelectasis; I95.9 Hypotension, unspecified; F17.210 Nicotine dependence, cigarettes, uncomplicated; F32.9 Major depressive disorder, single episode, unspecified; F41.0 Panic disorder [episodic paroxysmal anxiety]; I10 Essential (primary) hypertension; I25.2 Old myocardial infarction; R07.89 Other chest pain; Z79.899 Other long term (current) drug therapy; Z79.51 Long term (current) use of inhaled steroids; Z86.73 Personal history of transient ischemic attack (TIA), and cerebral infarction without residual deficits; Z91.010 Allergy to peanuts; Z87.01 Personal history of pneumonia (recurrent); Z82.5 Family history of asthma and other chronic lower respiratory diseases; Z80.51 Family history of malignant neoplasm of kidney; Z80.8 Family history of malignant neoplasm of other organs or systems
CPT/HCPCS: 36415; 71046; 71275; 80048; 80053; 83735; 83880; 84484; 85025; 85379; 85610; 85730; 93005; 94640; 94760; 96361; 96374; 99285

== ENCOUNTER 2018-12-16 17:10 | Emergency (ER) | payer OTHER ==
[2018-12-16 17:19] VITALS: RESP 18
[2018-12-16] MEDS ORDERED: IPRATROPIUM 0.5 MG/2.5 ML NEBU INHALATION STA (17:30)
[2018-12-16] MEDS ORDERED: ALBUTEROL NEBULIZED 2.5 MG/3 ML INHALATION STA (17:30)
--- NOTE | 2018-12-16 17:33 | ED ---
General Adult HPI - General Chief complaint: Shortness of Breath Stated complaint: COPD/chest pains Time Seen by Provider: 12/16/18 17:20 Source: patient Mode of arrival: ambulatory Limitations: no limitations - History of Present Illness Initial comments: Dictation was produced using [employer] dictation software. please excuse any gramma tical, word or spelling errors. Chief Complaint: Patient is 58-year-old male presents with shortness of breath. History of Present Illness: Patient is a 58-year-old male past medical history of CVA, [place], pneumonia, CVA presents with shortness of breath for the last 2 hours. Patient was discharged from our hospital yesterday. Patient was admitted for hypercapnic respiratory failure secondary to COPD exacerbation. Patient extensive workup while inpatient including his CT angiogram to rule out pulmonary embolism. Patient states he was out and about walking looking for an apartment with he began feeling short of breath again. Patient also was found to have hyponatremia. Patient was discharged with albuterol and steroids. The ROS documented in this emergency department record has been reviewed and confirmed by me. Those systems with pertinent positive or negative responses have been documented in the HPI. All other systems are other negative and/or noncontributory. PHYSICAL EXAM: General Impression: Alert and oriented x3, not in acute distress, malodorous HEENT: Normocephalic atraumatic, extra-ocular movements intact, pupils equal and reactive to light bilaterally, mucous membranes moist. Cardiovascular: Heart regular rate and rhythm, S1&S2 audible, no murmurs, rubs or gallops Chest: Mild bilateral lung wheezing. Abdomen: Bowel sounds present, abdomen soft, non-tender, non-distended, no organomegaly Musculoskeletal: Pulses present and equal in all extremities, no peripheral edema Motor: no focal deficits noted Neurological: CN II-XII grossly intact, no focal motor or sensory deficits noted Skin: Intact with no visualized rashes Psych: Normal affect and mood ED course: 58-year-old male presents with shortness of breath. Patient is multiple comorbidities. Patient was just admitted discharge for the same complaint. Patient had extensive workup with final diagnosis of COPD exacerbation. Vital signs upon arrival shows heart rate of 113, worse vital signs within acceptable limits. Patient hypoxic or tachypneic. Slightly wheezy on physical examination. Patient is Homeless and unkempt. Patient given breathing treatment. Patient observed in the emergency department. He is reevaluated after a couple hours. Patient resting comfortably showing no signs of respiratory distress metabolic panel is unremarkable.. Patient states he is homeless and is currently looking for a place to live. Patient given homeless snf information. Her O2 was baseline. Patient eating and drinking comfortably. Patient clear for discharge. Patient has prescriptions for inhalers. He also has by mouth steroids that he is encouraged to continue taking as initially prescribed. EKG interpretation: Ventricular rate 105, sinus tachycardia, IN interval 142, care is 80, QTc 457. No IN prolongation, no QTC prolongation, no ST or T-wave changes noted. . Overall, this EKG is unremarkable - Related Data Home Medications Medication Instructions Recorded Confirmed Acetaminophen Tab [Tylenol] 650 mg PO Q6H PRN 01/20/17 12/16/18 Folic Acid 1 mg PO DAILY 01/20/17 12/16/18 Acyclovir 400 mg PO BID 11/14/18 12/16/18 Escitalopram [Lexapro] 5 mg PO DAILY 11/14/18 12/16/18 Lisinopril [Zestril] 5 mg PO DAILY 11/14/18 12/16/18 Melatonin 5 mg PO HS PRN 11/14/18 12/16/18 Multivitamins, Thera [Multivitamin 1 tab PO DAILY 12/12/18 12/16/18 (formulary)] predniSONE See Taper PO DAILY 12/16/18 12/16/18 Previous Rx's Medication Instructions Recorded Montelukast [Singulair] 10 mg PO HS #30 tab 11/17/18 Nicotine 14Mg/24Hr Patch [Habitrol] 1 patch TRANSDERM DAILY #30 patch 11/17/18 Pantoprazole [Protonix] 40 mg PO AC-BRKFST #30 tablet. 11/17/18 Budesonide/Formoterol Fumarate 2 puff INHALATION RT-BID #1 12/15/18 [Symbicort 160-4.5 Mcg Inhaler] hfa.aer.ad Gabapentin 800 mg PO Q6H PRN #20 tablet 12/15/18 Ipratropium-Albuterol Nebulize 3 ml INHALATION RT-QID PRN #60 12/15/18 [Duoneb 0.5 mg-3 mg/3 ml Soln] ampul.neb Allergies Allergy/AdvReac Type Severity Reaction Status Date / Time peanut [Peanut Butter] AdvReac Nausea & Verified 12/16/18 17:32 Vomiting & Diarrhea Review of Systems ROS Statement: Those systems with pertinent positive or pertinent negative responses have been documented in the HPI. ROS Other: All systems not noted in ROS Statement are negative. 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 shingles - 01/17/2017 Last Myocardial Infarction Date:: unknown History of Any Multi-Drug Resistant Organisms: None Reported Past Surgical History: Orthopedic Surgery Additional Past Surgical History / Comment(s): neck fx, metal plate left hand middle finger Past Anesthesia/Blood Transfusion Reactions: No Reported Reaction Past Psychological History: Depression, Panic Disorder Smoking Status: Current every day smoker Past Alcohol Use History: Occasional Past Drug Use History: Marijuana - Past Family History Mother Family Medical History: Cancer Additional Family Medical History / Comment(s): Pt believes his Mom of Kidney Ca, but not 100% sure. 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 ] Respiratory 18 18 Rate Blood Pressure 129/70 O2 Sat by Pulse 95 Oximetry Medical Decision Making - Lab Data Result diagrams: 12/16/18 17:43 Lab Results 12/16/18 Range/Units 17:43 Sodium 136 L (137-145) mmol/L Potassium 4.3 (3.5-5.1) mmol/L Chloride 99 (98-107) mmol/L Carbon Dioxide 30 (22-30) mmol/L Anion Gap 7 mmol/L BUN 12 (9-20) mg/dL Creatinine 0.56 L (0.66-1.25) mg/dL Est GFR (CKD-EPI)AfAm >90 (>60 ml/min/1.73 sqM) Est GFR (CKD-EPI)NonAf >90 (>60 ml/min/1.73 sqM) Glucose 91 (74-99) mg/dL Calcium 9.7 (8.4-10.2) mg/dL Disposition Clinical Impression: COPD (chronic obstructive pulmonary disease) Disposition: HOME SELF-CARE Condition: Good Instructions (If sedation given, give patient instructions): COPD (Chronic Obst ructive Pulmonary Disease) (ED) Is patient prescribed a controlled substance at d/c from ED?: No Referrals: Urszula Carrasco MD [Primary Care Provider] - 1-2 days Time of Disposition: 20:13
[2018-12-16 18:12] LABS: Anion Gap 7 mmol/L; Blood Urea Nitrogen 12 mg/dL (9-20); Calcium 9.7 mg/dL (8.4-10.2); Carbon Dioxide 30 mmol/L (22-30); Chloride 99 mmol/L (98-107); Glucose 91 mg/dL (74-99); Potassium 4.3 mmol/L (3.5-5.1); Sodium 136 mmol/L (137-145)
[2018-12-16 22:30] VITALS: BP 140/83; PULSE 80; TEMP 98.4
== END 2018-12-16 22:40 | disposition home or self-care (01) ==
LOC: EC 17:10
DX: J44.1 Chronic obstructive pulmonary disease with (acute) exacerbation (principal); R00.0 Tachycardia, unspecified; I10 Essential (primary) hypertension; I25.2 Old myocardial infarction; F41.0 Panic disorder [episodic paroxysmal anxiety]; F32.9 Major depressive disorder, single episode, unspecified; F17.200 Nicotine dependence, unspecified, uncomplicated; Z59.0 Homelessness; Z79.899 Other long term (current) drug therapy; Z91.010 Allergy to peanuts; Z79.51 Long term (current) use of inhaled steroids; Z86.73 Personal history of transient ischemic attack (TIA), and cerebral infarction without residual deficits
CPT/HCPCS: 36415; 80048; 93005; 94640; 99285

== ENCOUNTER 2019-03-14 13:15 | Emergency (ER) | payer OTHER ==
[2019-03-14 13:53] VITALS: RESP 18
--- NOTE | 2019-03-14 14:25 | ED ---
Extremity Problem HPI - General Chief complaint: Extremity Problem,Nontraumatic Stated complaint: Legs swelling/pain/lt arm pain Time Seen by Provider: 03/14/19 14:06 Source: patient Mode of arrival: ambulatory Limitations: no limitations - History of Present Illness Initial comments: Patient is a 58-year-old male with a history of COPD, [place] CVA is presenting to emergency Department with bilateral lower leg pain. Patient reports pain started approximately 2 weeks ago and has slowly increased in severity. Patient reports when the pain initially started he also developed lower extremity edema. Patient has a history of intermittent lower extremity edema which he attributes to taking vitamin B prescribed to him by his primary care. Patient reports the pain is alleviated rest and exacerbated with ambulation. Patient has chronic shortness of breath due to COPD and uses oxygen daily. Patient denies erythema or skin discoloration in his bilateral lower extremities. Patient denies recent surgeries but he does spend most of this time living a sedentary life style. Patient denies cough, chest pain, chest tightness, hemoptysis. - Related Data Home Medications Medication Instructions Recorded Confirmed Acetaminophen Tab [Tylenol] 650 mg PO Q6H PRN 01/20/17 12/16/18 Folic Acid 1 mg PO DAILY 01/20/17 12/16/18 Acyclovir 400 mg PO BID 11/14/18 12/16/18 Escitalopram [Lexapro] 5 mg PO DAILY 11/14/18 12/16/18 Lisinopril [Zestril] 5 mg PO DAILY 11/14/18 12/16/18 Melatonin 5 mg PO HS PRN 11/14/18 12/16/18 Multivitamins, Thera [Multivitamin 1 tab PO DAILY 12/12/18 12/16/18 (formulary)] predniSONE See Taper PO DAILY 12/16/18 12/16/18 Previous Rx's Medication Instructions Recorded Montelukast [Singulair] 10 mg PO HS #30 tab 11/17/18 Nicotine 14Mg/24Hr Patch [Habitrol] 1 patch TRANSDERM DAILY #30 patch 11/17/18 Pantoprazole [Protonix] 40 mg PO DEAN-MEÑO #30 tablet. 11/17/18 Budesonide/Formoterol Fumarate 2 puff INHALATION RT-BID #1 12/15/18 [Symbicort 160-4.5 Mcg Inhaler] hfa.aer.ad Gabapentin 800 mg PO Q6H PRN #20 tablet 12/15/18 Ipratropium-Albuterol Nebulize 3 ml INHALATION RT-QID PRN #60 12/15/18 [Duoneb 0.5 mg-3 mg/3 ml Soln] ampul.neb Allergies Allergy/AdvReac Type Severity Reaction Status Date / Time peanut [Peanut Butter] AdvReac Nausea & Verified 12/16/18 17:32 Vomiting & Diarrhea Review of Systems ROS Statement: Those systems with pertinent positive or pertinent negative responses have been documented in the HPI. ROS Other: All systems not noted in ROS Statement are negative. 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 shingles - 01/17/2017 Last Myocardial Infarction Date:: unknown History of Any Multi-Drug Resistant Organisms: None Reported Past Surgical History: Orthopedic Surgery Additional Past Surgical History / Comment(s): neck fx, metal plate left hand middle finger Past Anesthesia/Blood Transfusion Reactions: No Reported Reaction Past Psychological History: Depression, Panic Disorder Smoking Status: Current every day smoker Past Alcohol Use History: Occasional Past Drug Use History: Marijuana - Past Family History Mother Family Medical History: Cancer Additional Family Medical History / Comment(s): Pt believes his Mom of Kidney Ca, but not 100% sure. Father Family Medical History: Cancer, COPD, Respiratory Disorder Additional Family Medical History / Comment(s): Melonoma General Exam Limitations: no limitations General appearance: alert, in no apparent distress Head exam: Present: atraumatic, normocephalic, normal inspection Eye exam: Present: PERRL, EOMI. Absent: normal appearance (Prostatic right eye) Pupils: Present: normal accommodation ENT exam: Present: normal exam, mucous membranes moist, normal external ear exam Neck exam: Present: normal inspection, full ROM Respiratory exam: Present: wheezes (Very mild bilateral wheezing) Cardiovascular Exam: Present: normal rhythm, tachycardia, normal heart sounds Extremities exam: Present: full ROM (Limited range of motion in bilateral ankles due to pain. full range of motion in bilateral knees. ), tenderness (Tenderness on palpation along the left lower leg and feet bilaterally), calf tenderness (Bilateral. Positive Homans.), other (+1 dorsalis pedis and posterior tibialis bilaterally). Absent: normal inspection Back exam: Present: normal inspection, full ROM Neurological exam: Present: alert, oriented X3 Psychiatric exam: Present: normal affect, normal mood Skin exam: Present: warm, intact, normal color Course Vital Signs 03/14/19 13:49 Temperature 97.8 F Pulse Rate 110 H Respiratory 18 Rate Blood Pressure 131/78 O2 Sat by Pulse 95 Oximetry Disposition Clinical Impression: Swelling of lower leg Disposition: HOME SELF-CARE Condition: Stable Instructions (If sedation given, give patient instructions): Leg Edema (ED) Additional Instructions: Please follow up with primary care and cardiology. Please return to emergency department if symptoms worsen. Keep legs elevated to decrease swelling. Is patient prescribed a controlled substance at d/c from ED?: No Referrals: Urszula Carrasco MD [Primary Care Provider] - 1-2 days Time of Disposition: 17:32
--- NOTE | 2019-03-14 15:28 | US ---
EXAMINATION TYPE: US venous doppler duplex LE BI DATE OF EXAM: 03/14/2019 2:58 PM COMPARISON: 08/26/2015 CLINICAL HISTORY: 58-year-old male Pain. Bilateral leg pain and swelling x 1 week SIDE PERFORMED: Bilateral TECHNIQUE: The lower extremity deep venous system is examined utilizing real time linear array sonog isrrael with graded compression, doppler sonography and color-flow sonography. FINDINGS: VESSELS IMAGED: External Iliac Vein (EIV) Common Femoral Vein Deep Femoral Vein Greater Saphenous Vein * Femoral Vein Popliteal Vein Small Saphenous Vein * Proximal Calf Veins (* superficial vessels) Right Leg: Appears negative for DVT Left Leg: Appears negative for DVT IMPRESSION: No evidence for DVT within the bilateral lower extremities imaged from the groin to the upper calves.
--- NOTE | 2019-03-14 16:59 | XR ---
EXAMINATION TYPE: XR chest 2V DATE OF EXAM: 03/14/2019 COMPARISON: 12/12/2018 HISTORY: 58-year-old male cough and pain TECHNIQUE: AP and lateral views FINDINGS: Heart upper limits of normal in size. Strandy atelectasis lower lungs. There is a mild patchy right m idlung opacity. Hyperinflation with flattening of the hemidiaphragms. No pleural effusion. IMPRESSION: COPD. Some patchy right midlung atelectasis versus early infiltrate/pneumonia. Clinically correlate.
[2019-03-14 17:49] VITALS: BP 158/88; PULSE 82; TEMP 97.6
== END 2019-03-14 17:52 | disposition home or self-care (01) ==
LOC: EC 13:15
DX: M79.89 Other specified soft tissue disorders (principal); M79.662 Pain in left lower leg; M79.661 Pain in right lower leg; J44.9 Chronic obstructive pulmonary disease, unspecified; I10 Essential (primary) hypertension; I25.2 Old myocardial infarction; F41.0 Panic disorder [episodic paroxysmal anxiety]; F32.9 Major depressive disorder, single episode, unspecified; F17.200 Nicotine dependence, unspecified, uncomplicated; Z79.899 Other long term (current) drug therapy; Z79.51 Long term (current) use of inhaled steroids; Z91.010 Allergy to peanuts; Z86.73 Personal history of transient ischemic attack (TIA), and cerebral infarction without residual deficits
CPT/HCPCS: 71046; 93970; 99284

== ENCOUNTER 2019-03-30 08:01 | Inpatient (IN) | payer OTHER ==
--- NOTE | 2019-03-30 08:42 | ED ---
General Adult HPI - General Chief complaint: Shortness of Breath Stated complaint: SOB Time Seen by Provider: 03/30/19 08:05 Source: patient, RN notes reviewed Mode of arrival: ambulatory Limitations: no limitations - History of Present Illness Initial comments: This a 58-year-old male who presents emergency department with past medical history significant for COPD. Patient states he lives upstairs and the third floor and it is extremely hot nor conditioning and his made breathing much more difficult. Patient states over the last few days is getting progressively worse and is also had quite a bad cough. Patient denies any sputum production. Kevin ma states he has had the chills but has not had a fever. Patient states he continues to smoke cigarettes as well as marijuana. Patient was brought in by EMS and they gave him 2 breathing treatments and prednisone on the way in. Patient denies any chest pain or tightness. Patient denies any abdominal pain patient denies nausea vomiting diarrhea. Patient denies headache patient denies numbness weakness. - Related Data Home Medications Medication Instructions Recorded Confirmed Escitalopram [Lexapro] 5 mg PO DAILY 11/14/18 03/30/19 Lisinopril [Zestril] 5 mg PO DAILY 11/14/18 03/30/19 Melatonin 5 mg PO HS PRN 11/14/18 03/30/19 Famotidine [Pepcid AC] 10 mg PO BID 03/30/19 03/30/19 Previous Rx's Medication Instructions Recorded Montelukast [Singulair] 10 mg PO HS #30 tab 11/17/18 Nicotine 14Mg/24Hr Patch [Habitrol] 1 patch TRANSDERM DAILY #30 patch 11/17/18 Budesonide/Formoterol Fumarate 2 puff INHALATION RT-BID #1 12/15/18 [Symbicort 160-4.5 Mcg Inhaler] hfa.aer.ad Gabapentin 800 mg PO Q6H PRN #20 tablet 12/15/18 Ipratropium-Albuterol Nebulize 3 ml INHALATION RT-QID PRN #60 12/15/18 [Duoneb 0.5 mg-3 mg/3 ml Soln] ampul.neb Allergies Allergy/AdvReac Type Severity Reaction Status Date / Time peanut [Peanut Butter] AdvReac Nausea & Verified 03/30/19 08:27 Vomiting & Diarrhea Review of Systems ROS Statement: Those systems with pertinent positive or pertinent negative responses have been documented in the HPI. ROS Other: All systems not noted in ROS Statement are negative. Past Medical History Past Medical History: Chest Pain / Angina, COPD, CVA/TIA, Hypertension, Myocardial Infarction ([place]), Pneumonia, Respiratory Disorder Additional Past Medical History / Comment(s): CVA with a a basal ganglia hemorr keith in October 2014. FROZEN SHOULDER SYNDROME in the right shoulder [place]-PT STATED IN THE . shingles - 01/17/2017 Last Myocardial Infarction Date:: unknown History of Any Multi-Drug Resistant Organisms: None Reported Past Surgical History: Orthopedic Surgery Additional Past Surgical History / Comment(s): neck fx, metal plate left hand middle finger Past Anesthesia/Blood Transfusion Reactions: No Reported Reaction Past Psychological History: Depression, Panic Disorder Smoking Status: Current every day smoker Past Alcohol Use History: Occasional Past Drug Use History: Marijuana - Past Family History Mother Family Medical History: Cancer Additional Family Medical History / Comment(s): Pt believes his Mom of Kidney Ca, but not 100% sure. Father Family Medical History: Cancer, COPD, Respiratory Disorder Additional Family Medical History / Comment(s): Melonoma General Exam - General Exam Comments Initial Comments: GENERAL: Patient is well-developed and well-nourished. Patient is nontoxic and well- hydrated and is in mild distress. ENT: Neck is soft and supple. No significant lymphadenopathy is noted. Oropharynx is clear. Moist mucous membranes. Neck has full range of motion without eliciting any pain. EYES: The sclera were anicteric and conjunctiva were pink and moist. Extraocular movements were intact and pupils were equal round and reactive to light. Eyelids were unremarkable. PULMONARY: Patient is a very wheezing diffusely. CARDIOVASCULAR: There is a regular rate and rhythm without any murmurs gallops or rubs. ABDOMEN: Soft and nontender with normal bowel sounds. No palpable organomegaly was noted. There is no palpable pulsatile mass. SKIN: Skin is clear with no lesions or rashes and otherwise unremarkable. NEUROLOGIC: Patient is alert and oriented x3. Cranial nerves II through XII are grossly intact. Motor and sensory are also intact. Normal speech, volume and content. Symmetrical smile. MUSCULOSKELETAL: Normal extremities with adequate strength and full range of motion. 1+ edema bilaterally LYMPHATICS: No significant lymphadenopathy is noted PSYCHIATRIC: Normal psychiatric evaluation. Limitations: no limitations Course Vital Signs 03/30/19 03/30/19 03/30/19 08:02 08:23 10:02 Temperature 99.1 F Pulse Rate 108 H 95 Respiratory 22 18 18 Rate Blood Pressure 129/88 132/85 O2 Sat by Pulse 94 L 96 Oximetry 03/30/19 10:11 Temperature Pulse Rate 102 H Respiratory Rate Blood Pressure O2 Sat by Pulse Oximetry Medical Decision Making - Medical Decision Making EKG shows sinus tachycardia at 108 bpm [place] interval 132 QRS is 84 QT interval 346 QTC is 463 patient's EKG shows no ST segment elevation or depression. Chest x-ray showed a right upper lobe pneumonia. At this point time since we had a source was determined the patient was septic at this point because of the pulse and white count. At this point and the patient was given antibiotics. I spoke with Dr. tuttle he agreed to admit the patient admitted the patient wrote admitting orders. - Lab Data Result diagrams: 03/30/19 08:13 03/30/19 08:13 Lab Results 03/30/19 03/30/19 03/30/19 Range/Units 08:13 08:13 08:13 WBC 17.3 H (3.8-10.6) k/uL RBC 3.96 L (4.30-5.90) m/uL Hgb 13.3 (13.0-17.5) gm/dL Hct 40.1 (39.0-53.0) % MCV 101.3 H (80.0-100.0) fL MCH 33.7 (25.0-35.0) pg MCHC 33.2 (31.0-37.0) g/dL RDW 14.1 (11.5-15.5) % Plt Count 386 (150-450) k/uL Neutrophils % 84 % Lymphocytes % 7 % Monocytes % 3 % Eosinophils % 5 % Basophils % 1 % Neutrophils # 14.5 H (1.3-7.7) k/uL Lymphocytes # 1.1 (1.0-4.8) k/uL Monocytes # 0.6 (0-1.0) k/uL Eosinophils # 0.9 H (0-0.7) k/uL Basophils # 0.1 (0-0.2) k/uL Macrocytosis Slight PT (9.0-12.0) sec INR (<1.2) APTT (22.0-30.0) sec Sodium 133 L (137-145) mmol/L Potassium 4.4 (3.5-5.1) mmol/L Chloride 95 L (98-107) mmol/L Carbon Dioxide 24 (22-30) mmol/L Anion Gap 14 mmol/L BUN 15 (9-20) mg/dL Creatinine 0.53 L (0.66-1.25) mg/dL Est GFR (CKD-EPI)AfAm >90 (>60 ml/min/1.73 sqM) Est GFR (CKD-EPI)NonAf >90 (>60 ml/min/1.73 sqM) Glucose 60 L (74-99) mg/dL Plasma Lactic Acid Gray 1.3 (0.7-2.0) mmol/L Calcium 8.8 (8.4-10.2) mg/dL Magnesium 1.6 (1.6-2.3) mg/dL Total Bilirubin 0.6 (0.2-1.3) mg/dL AST 36 (17-59) U/L ALT 58 (21-72) U/L Alkaline Phosphatase 76 (38-126) U/L Troponin I (0.000-0.034) ng/mL NT-Pro-B Natriuret Pep pg/mL Total Protein 5.7 L (6.3-8.2) g/dL Albumin 2.8 L (3.5-5.0) g/dL 03/30/19 03/30/19 03/30/19 Range/Units 08:13 08:13 08:13 WBC (3.8-10.6) k/uL RBC (4.30-5.90) m/uL Hgb (13.0-17.5) gm/dL Hct (39.0-53.0) % MCV (80.0-100.0) fL MCH (25.0-35.0) pg MCHC (31.0-37.0) g/dL RDW (11.5-15.5) % Plt Count (150-450) k/uL Neutrophils % % Lymphocytes % % Monocytes % % Eosinophils % % Basophils % % Neutrophils # (1.3-7.7) k/uL Lymphocytes # (1.0-4.8) k/uL Monocytes # (0-1.0) k/uL Eosinophils # (0-0.7) k/uL Basophils # (0-0.2) k/uL Macrocytosis PT 9.6 (9.0-12.0) sec INR 0.9 (<1.2) APTT 24.9 (22.0-30.0) sec Sodium (137-145) mmol/L Potassium (3.5-5.1) mmol/L Chloride (98-107) mmol/L Carbon Dioxide (22-30) mmol/L Anion Gap mmol/L BUN (9-20) mg/dL Creatinine (0.66-1.25) mg/dL Est GFR (CKD-EPI)AfAm (>60 ml/min/1.73 sqM) Est GFR (CKD-EPI)NonAf (>60 ml/min/1.73 sqM) Glucose (74-99) mg/dL Plasma Lactic Acid Gray (0.7-2.0) mmol/L Calcium (8.4-10.2) mg/dL Magnesium (1.6-2.3) mg/dL Total Bilirubin (0.2-1.3) mg/dL AST (17-59) U/L ALT (21-72) U/L Alkaline Phosphatase (38-126) U/L Troponin I <0.012 (0.000-0.034) ng/mL NT-Pro-B Natriuret Pep 182 pg/mL Total Protein (6.3-8.2) g/dL Albumin (3.5-5.0) g/dL Disposition Clinical Impression: Pneumonia, Sepsis, COPD exacerbation Disposition: ADMITTED IP TO THIS HOSP Referrals: Urszula Carrasco MD [Primary Care Provider] - 1-2 days Time of Disposition: 11:09
[2019-03-30 09:07] LABS: Basophils # (A) 0.1 k/uL (0-0.2); Basophils % (A) 1 %; Eosinophils # (A) 0.9 k/uL (0-0.7); Eosinophils % (A) 5 %; HCT 40.1 % (39.0-53.0); HGB 13.3 gm/dL (13.0-17.5); Lymphocytes # (A) 1.1 k/uL (1.0-4.8); Lymphocytes % (A) 7 %; MCH 33.7 pg (25.0-35.0); MCHC 33.2 g/dL (31.0-37.0); MCV 101.3 fL (80.0-100.0); Macrocytosis Slight; Monocytes # (A) 0.6 k/uL (0-1.0); Monocytes % (A) 3 %; Neutrophils # (A) 14.5 k/uL (1.3-7.7); Neutrophils % (A) 84 %; Platelet Count 386 k/uL (150-450); RBC 3.96 m/uL (4.30-5.90); RDW 14.1 % (11.5-15.5); WBC 17.3 k/uL (3.8-10.6)
[2019-03-30 09:17] LABS: ALT 58 U/L (21-72); AST 36 U/L (17-59); African American GFR (CKD) >90 (>60 ml/min/1.73 sqM); Albumin 2.8 g/dL (3.5-5.0); Alkaline Phosphatase 76 U/L (38-126); Anion Gap 14 mmol/L; Blood Urea Nitrogen 15 mg/dL (9-20); Calcium 8.8 mg/dL (8.4-10.2); Carbon Dioxide 24 mmol/L (22-30); Chloride 95 mmol/L (98-107); Glucose 60 mg/dL (74-99); Magnesium 1.6 mg/dL (1.6-2.3); Potassium 4.4 mmol/L (3.5-5.1); Sodium 133 mmol/L (137-145); Total Bilirubin 0.6 mg/dL (0.2-1.3); Total Protein 5.7 g/dL (6.3-8.2)
[2019-03-30 09:19] LABS: INR 0.9 (<1.2); Partial Thromboplastin Time 24.9 sec (22.0-30.0); Prothrombin Time 9.6 sec (9.0-12.0)
--- NOTE | 2019-03-30 09:32 | XR ---
EXAMINATION TYPE: XR chest 2V DATE OF EXAM: 03/30/2019 COMPARISON: 03/14/2019 TECHNIQUE: PA and lateral views submitted. HISTORY: Shortness of breath FINDINGS: Large area in the right upper lobe consolidation suggestive of pneumonia. Underlying COPD and chronic interstitial lung disease suspected. Heart size stable. No sizable pleural effusion. Degenerative ch bradley of the spine. IMPRESSION: 1. Large area of consolidation right upper lobe correlate for pneumonia. Follow to resolution to excl ude underlying neoplasm. 2. COPD with findings suggestive of chronic interstitial lung disease.
[2019-03-30] MEDS ORDERED: IPRATROPIUM-ALBUTEROL 3 ML NEB INHALATION STA (09:41)
[2019-03-30] MEDS ORDERED: cefTRIAXone IN SWFI 1,000 MG/10 ML SYRINGE IVP STA ×2 (11:06→11:11)
[2019-03-30] MEDS ORDERED: SODIUM CHLORIDE 0.9% 1,000 ML IV ONE (11:19)
[2019-03-30] MEDS: methylPREDNISolone SOD SUCCI 125 MG/2 ML VIAL IV SCH ×3 (11:28→23:06)
[2019-03-30] MEDS: IPRATROPIUM-ALBUTEROL 3 ML NEB INHALATION PRN ×3 (12:16→23:13)
[2019-03-30 15:48] VITALS: BMI 28.7
[2019-03-30] MEDS ORDERED: MELATONIN 5 MG TABLET PO PRN (17:05)
[2019-03-30] MEDS: PIPERACILLIN-TAZOBACTAM 3.375 GM in SODIUM CHLORIDE 0.9% 100 ML IVPB SCH ×2 (17:19→23:06)
[2019-03-30] MEDS ORDERED: guaiFENesin-DM 100-10MG/5ML 10 ML CUP PO PRN (17:20)
[2019-03-30] MEDS ORDERED: LEVOFLOXACIN 750MG-D5W PMX 750 MG in DEXTROSE/WATER 1 150ML.BAG IVPB SCH (18:00)
[2019-03-30] MEDS ORDERED: HYDROmorphone 0.5 MG/0.5 ML SYRINGE IVP PRN (19:27)
[2019-03-30] MEDS: IPRATROPIUM-ALBUTEROL 3 ML NEB INHALATION SCH (20:13)
[2019-03-30] MEDS: SYMBICORT 160-4.5 MCG INHALER INHALATION SCH (20:13)
[2019-03-30] MEDS: TEMAZEPAM 15 MG CAP PO PRN (20:15)
[2019-03-30] MEDS: HEPARIN SODIUM,PORCINE 5,000 UNIT/ML 1 ML VIAL SQ SCH (20:15)
[2019-03-30] MEDS: FAMOTIDINE 20 MG TAB PO SCH (20:15)
[2019-03-30] MEDS: ALPRAZolam 0.25 MG TAB PO PRN (20:15)
[2019-03-30] MEDS: MONTELUKAST 10 MG TAB PO SCH (20:15)
[2019-03-30] MEDS: HYDROcodone/APAP 5-325MG 1 EACH TAB PO PRN (20:15)
[2019-03-30] MEDS: guaiFENesin SYRUP 100MG/5ML 200 MG/10 ML CUP PO PRN (20:15)
[2019-03-30] MEDS: INSULIN ASPART (NovoLOG) 100 UNIT/ML VIAL SQ SCH (20:30)
[2019-03-30 20:33] LABS: Glucose,Whole Blood 206 mg/dL (75-99)
[2019-03-30] MEDS: GABAPENTIN 400 MG CAP PO PRN (21:01)
--- NOTE | 2019-03-30 21:58 | HP ---
HISTORY AND PHYSICAL DATE OF SERVICE: 03/30/2019 CHIEF COMPLAINT: Shortness of breath and cough and sputum. HISTORY OF PRESENT ILLNESS: This 58-year-old gentleman with a past medical history of multiple medical problems including COPD, asthma, CVA, TIA, hypertension, myocardial infarction, history of pneumonia, history of COPD, history of depression, panic disorder, being followed by Dr. Urszula Carrasco in the outpatient setting is complaining of shortness of breath and cough and sputum for the past several days. The patient lives in an upstairs apartment without any air conditioning. The patient is getting progressively worse and has significant cough and the patient has aching all over the body and the back. The patient has significant cough. Patient continues to smoke. The patient came to [facility]. Right upper lobe pneumonia was suspected. Patient admitted to the hospital for further evaluation and treatment. There is no history of any fever, rigors. There has been no headache, loss of consciousness, seizures at this time. PAST MEDICAL HISTORY: Asthma, COPD, history of chest pain, CVA, TIA, hypertension, myocardial infarction, history of pneumonia, history of DJD, history of panic disorder. MEDICATIONS: Prior to admission include: 1. Habitrol 14 daily. 2. Singulair 10 mg q.h.s. 3. Melatonin 5 mg q.h.s. p.r.n. 4. Zestril 5 mg p.o. daily. 5. DuoNeb q.i.d. p.r.n. 6. Gabapentin 800 mg q.6 p.r.n. 7. Pepcid AC 10 mg p.o. b.i.d. 8. Lexapro 5 mg p.o. daily. 9. Symbicort 160/4.5 2 puffs b.i.d. ALLERGIES: PEANUTS. FAMILY HISTORY: History of cancer, kidney cancer. SOCIAL HISTORY: History of continued smoking. Occasional alcohol intake. REVIEW OF SYSTEMS: ENT: No diminished vision. No diminished hearing. CARDIOVASCULAR: No angina or palpitations. RESPIRATORY: As mentioned earlier. GI no nausea or vomiting. : No dysuria. NERVOUS SYSTEM: No numbness or weakness. ALLERGY/IMMUNOLOGY: No asthma or hayfever. MUSCULOSKELETAL as mentioned earlier. HEMATOLOGY/ONCOLOGY: No history of anemia. ENDOCRINE: No history of diabetes or hypothyroidism. CONSTITUTIONAL: As mentioned earlier. Dermatology: Negative. Rheumatology: Negative. Psychiatry: As mentioned earlier. PHYSICAL EXAMINATION: Alert and oriented times three. Pulse is 84. Blood pressure 126/51, respiration 18, temperature 97.9, pulse ox 97% on 4 L. HEENT: Conjunctivae normal. Oral mucosa moist. NECK is no jugular venous distention. No carotid bruit. No lymph node enlargement. CARDIOVASCULAR: S1, S2 normal. No S3, no S4. RESPIRATORY: Breath sounds diminished at the bases. A few bilateral scattered rhonchi and crackles. Expiratory wheezing also present. ABDOMEN: Soft, nontender. No mass palpable. LEGS: No edema. No swelling. NERVOUS SYSTEM: Higher functions as mentioned earlier. Moves all 4 limbs. No focal motor or sensory deficit. Lymphatics: No lymph nodes palpable in the neck, axillae or groin. SKIN: No ulcer, no rash and no bleeding. JOINTS: No active deforming arthropathy. LABS: WBC 17.3, hemoglobin 13.3, sodium 133. ASSESSMENT: 1. Acute right upper lobe pneumonia possibly community-acquired, possibly gram- negative with sepsis present on admission. 2. Chronic obstructive pulmonary disease acute exacerbation. 3. Increased WBC. 4. Hyponatremia. 5. History of asthma. 6. History of cerebrovascular accident, transient ischemic attack. 7. Hypertension. 8. History of myocardial infarction. 9. History of pneumonia. 10.History of chronic hypoxic respiratory failure. 11.History of chronic pain syndrome. 12.History of gastroesophageal reflux disease. 13.History of basal ganglia hemorrhage in October 2014. 14.History of degenerative joint disease. 15.History of shingles. 16.History of depression/panic disorder. 17.Continued ongoing nicotine dependence. 18.History of THC. 19.FULL CODE. RECOMMENDATIONS AND DISCUSSION: This 58-year-old gentleman who presented with multiple complex medical issues, at this time, I recommend to continue current medications. Continue with monitoring, symptomatic treatment. We will initiate intensive bronchodilator treatment, IV steroids. I would also recommend cultures. I would also recommend broad-spectrum IV antibiotics. Patient also started on Zosyn and Levaquin. Monitor blood sugars closely. Resume the home medications. Pain medications. Robitussin p.r.n. Otherwise, prognosis guarded because of multiple complex medical issues. Further recommendations to follow. A copy of this dictation being forwarded to Dr. Urszula Carrasco who is the primary care physician. MMODL / IJN: [id number] /
[2019-03-30 23:34] LABS: Appearance,Urine Clear (Clear); Bilirubin,Urine Negative (Negative); Blood,Urine Negative (Negative); Color,Urine Yellow; Glucose,Urine (UA) 1+ (Negative); Ketones,Urine Negative (Negative); Leukocyte Esterase,Urine Negative (Negative); Nitrite,Urine Negative (Negative); PH, Urine 5.5 (5.0-8.0); Protein,Urine Negative (Negative); Specific Gravity,Urine 1.016 (1.001-1.035); Urobilinogen,Urine <2.0 mg/dL (<2.0)
[2019-03-31] MEDS: IPRATROPIUM-ALBUTEROL 3 ML NEB INHALATION PRN ×2 (02:21→23:12)
[2019-03-31] MEDS: guaiFENesin SYRUP 100MG/5ML 200 MG/10 ML CUP PO PRN ×3 (04:20→21:20)
[2019-03-31] MEDS: HYDROcodone/APAP 5-325MG 1 EACH TAB PO PRN ×3 (04:20→20:02)
[2019-03-31] MEDS: methylPREDNISolone SOD SUCCI 125 MG/2 ML VIAL IV SCH ×2 (05:24→13:18)
[2019-03-31 06:57] LABS: Basophils % (A) 0 %; Eosinophils # (A) 0.1 k/uL (0-0.7); Eosinophils % (A) 0 %; HCT 37.9 % (39.0-53.0); Lymphocytes # (A) 0.6 k/uL (1.0-4.8); Lymphocytes % (A) 4 %; MCH 32.2 pg (25.0-35.0); MCHC 31.7 g/dL (31.0-37.0); MCV 101.8 fL (80.0-100.0); Macrocytosis Slight; Mean Platelet Volume 6.5; Monocytes # (A) 0.3 k/uL (0-1.0); Monocytes % (A) 2 %; Neutrophils # (A) 12.4 k/uL (1.3-7.7); Neutrophils % (A) 92 %; Platelet Count 401 k/uL (150-450); RBC 3.72 m/uL (4.30-5.90); RDW 13.9 % (11.5-15.5); WBC 13.4 k/uL (3.8-10.6)
[2019-03-31 07:18] LABS: Glucose,Whole Blood 216 mg/dL (75-99)
[2019-03-31 07:21] LABS: African American GFR (CKD) >90 (>60 ml/min/1.73 sqM); Anion Gap 8 mmol/L; Blood Urea Nitrogen 12 mg/dL (9-20); Calcium 8.5 mg/dL (8.4-10.2); Carbon Dioxide 26 mmol/L (22-30); Chloride 99 mmol/L (98-107); Glucose 193 mg/dL (74-99); Sodium 133 mmol/L (137-145)
[2019-03-31] MEDS: LISINOPRIL 5 MG TAB PO SCH (07:35)
[2019-03-31] MEDS: FAMOTIDINE 20 MG TAB PO SCH ×2 (07:35→20:02)
[2019-03-31] MEDS: ALPRAZolam 0.25 MG TAB PO PRN ×2 (07:35→20:02)
[2019-03-31] MEDS: INSULIN ASPART (NovoLOG) 100 UNIT/ML VIAL SQ SCH ×4 (07:35→20:15)
[2019-03-31] MEDS: NICOTINE 14MG/24HR PATCH TRANSDERM SCH (07:36)
[2019-03-31] MEDS: GABAPENTIN 400 MG CAP PO PRN ×2 (07:36→17:20)
[2019-03-31] MEDS: PIPERACILLIN-TAZOBACTAM 3.375 GM in SODIUM CHLORIDE 0.9% 100 ML IVPB SCH ×2 (07:37→15:09)
[2019-03-31] MEDS: HEPARIN SODIUM,PORCINE 5,000 UNIT/ML 1 ML VIAL SQ SCH ×2 (07:38→20:04)
[2019-03-31] MEDS: IPRATROPIUM-ALBUTEROL 3 ML NEB INHALATION SCH ×4 (08:35→19:58)
[2019-03-31] MEDS: SYMBICORT 160-4.5 MCG INHALER INHALATION SCH ×2 (08:36→19:57)
--- NOTE | 2019-03-31 08:54 | P.CNPUL ---
History of Present Illness Consult date: 03/30/19 Reason for consult: dyspnea, COPD, pneumonia History of present illness: Is a 58-year-old male patient presented with a massive right upper lobe pneumonia and shortness of breath. This patient is known to us. The patient was followed up in our office in the past several he was lost to follow-up. He is known to have COPD, which has been severe with an FEV1 of 36% of predicted,, coronary artery disease and previous history of CVA. He was then burst department on 03/14/2019 for lower extremity swelling and pain the patient was also complaining of chronic shortness of breath. In the emergency department, the patient had a chest x-ray that showed some early pneumonic changes in the right upper lobe. However, the main focus was his lower extremity pain. He was given Doppler of the lower extremities do not to be negative. The patient was advised to elevate his legs and follow-up with his primary care physician. The patient came into the ED on 03/30/2019 with worsening in his breathing. He apparently was progressively getting worse and he had increased cough and no significant sputum production. He had chills no documented fever. He was smoking cigarettes on a daily basis as well as marijuana. In the ED, chest x- ray was done that showed an extensive right upper lobe consolidation. Had a temperature of 99.1. He was slightly tachycardic with a heart rate of 108. No significant hypotension. White cell count was at 17.3. No altered mentation. No hemoptysis. No pleurisy. He was given Rocephin and he will admit to the hospital and pulmonary consultation was requested. Review of Systems Constitutional: Reports chills, Reports fatigue, Reports fever, Reports poor appetite Eyes: denies as per HPI, denies blurred vision, denies bulging eye, denies decreased vision, denies diplopia, denies discharge, denies dry eye, denies irritation, denies itching, denies pain, denies photophobia, denies loss of peripheral vision, denies loss of vision, denies tunnel vision/blind spots Ears: deny: decreased hearing, ear discharge, earache, tinnitus Ears, nose, mouth and throat: Denies headache, Denies sore throat Breasts: absent: as per HPI, gynecomastia Cardiovascular: Reports claudication, Reports decreased exercise tolerance, Reports dyspnea on exertion, Reports shortness of breath Respiratory: Reports cough, Reports dyspnea, Reports wheezing Gastrointestinal: Denies abdominal pain, Denies diarrhea, Denies nausea, Denies vomiting Genitourinary: Reports as per HPI Musculoskeletal: Reports as per HPI Musculoskeletal: absent: ankle pain, ankle stiffness, ankle swelling, as per HPI, elbow pain, elbow stiffness, elbow swelling, foot pain, foot stiffness, foot swelling, hand pain, hand stiffness, hand swelling, hip pain, hip stiffness, hip swelling, knee pain, knee stiffness, knee swelling, shoulder pain, shoulder stiffness, shoulder swelling, wrist pain, wrist stiffness, wrist swelling Integumentary: Reports as per HPI Neurological: Reports as per HPI Psychiatric: Reports as per HPI Endocrine: Reports as per HPI Hematologic/Lymphatic: Reports as per HPI Allergic/Immunologic: Reports as per HPI Past Medical History Past Medical History: Asthma, Chest Pain / Angina, COPD, CVA/TIA, Hypertension, Myocardial Infarction ([place]), Pneumonia, Respiratory Disorder, Skin Disorder Additional Past Medical History / Comment(s): COPD with an FEV1 of 36% of predicted based on his spirometry from 2016, chronic hypoxic respiratory failure, history of CVA, diabetes mellitus type 2, chronic smoker, chronic pain syndrome, hypertension, acid reflux, previous history of basal ganglia hemorrhage in October 2014, frozen shoulder involving the right, it is history of coronary artery disease and myocardial infarction back in their 90s, shingles 2016, previous bouts of pneumonias Last Myocardial Infarction Date:: unknown History of Any Multi-Drug Resistant Organisms: None Reported Past Surgical History: Orthopedic Surgery Additional Past Surgical History / Comment(s): neck fx, metal plate left hand middle finger, right eye removed due to shingles. Past Anesthesia/Blood Transfusion Reactions: No Reported Reaction Past Psychological History: Depression, Panic Disorder Additional Psychological History / Comment(s): Lives in apartment, 17 steps to climb.Has a nebulizer. 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 Smoking Status: Current every day smoker Past Alcohol Use History: Occasional Additional Past Alcohol Use History / Comment(s): STARTED SMOKING 1975 1 PPD- QUIT 6 MONTHS AGO, PT STATED HE DRINKS AN 2 BEER a day Past Drug Use History: Marijuana Additional Drug Use History / Comment(s): PAST MARIJUANA USE IN HIS TEEN YEARS. - Past Family History Mother Family Medical History: Cancer Additional Family Medical History / Comment(s): Pt believes his Mom of Kidney Ca Father Family Medical History: Cancer, COPD, Respiratory Disorder Additional Family Medical History / Comment(s): Melonoma Medications and Allergies Home Medications Medication Instructions Recorded Confirmed Type Escitalopram [Lexapro] 5 mg PO DAILY 11/14/18 03/30/19 History Lisinopril [Zestril] 5 mg PO DAILY 11/14/18 03/30/19 History Melatonin 5 mg PO HS PRN 11/14/18 03/30/19 History Montelukast [Singulair] 10 mg PO HS #30 tab 11/17/18 03/30/19 Rx Nicotine 14Mg/24Hr Patch [Habitrol] 1 patch TRANSDERM DAILY #30 patch 11/17/18 03/30/19 Rx Budesonide/Formoterol Fumarate 2 puff INHALATION RT-BID #1 12/15/18 03/30/19 Rx [Symbicort 160-4.5 Mcg Inhaler] hfa.aer.ad Gabapentin 800 mg PO Q6H PRN #20 tablet 12/15/18 03/30/19 Rx Ipratropium-Albuterol Nebulize 3 ml INHALATION RT-QID PRN #60 12/15/18 03/30/19 Rx [Duoneb 0.5 mg-3 mg/3 ml Soln] ampul.neb Famotidine [Pepcid AC] 10 mg PO BID 03/30/19 03/30/19 History Allergies Allergy/AdvReac Type Severity Reaction Status Date / Time peanut [Peanut Butter] AdvReac Nausea & Verified 03/30/19 08:27 Vomiting & Diarrhea Physical Exam Vitals: Vital Signs Temp Pulse Pulse Resp BP BP Pulse Ox 03/30/19 16:48 84 03/30/19 16:32 88 98 03/30/19 15:39 97.9 F 84 18 126/51 97 03/30/19 15:16 98.5 F 99 18 147/77 94 L 03/30/19 15:10 100 18 138/89 95 03/30/19 12:50 100 18 145/61 94 L 03/30/19 12:22 102 H 03/30/19 12:14 90 03/30/19 11:31 100 20 144/83 95 03/30/19 10:11 102 H 03/30/19 10:02 95 18 132/85 96 03/30/19 08:23 18 03/30/19 08:02 99.1 F 108 H 22 129/88 94 L Intake and Output 03/30/19 03/30/19 03/30/19 06:59 14:59 22:59 Other: Voiding Method Toilet Weight 80.739 kg Appearance, comfortable likely distress Head exam was generally normal. There was no scleral icterus or corneal arcus. Mucous membranes were moist. Neck was supple and without jugular venous distension, thyromegaly, or carotid bruits. Carotids were easily palpable bilaterally. There was no adenopathy. Lungs sounds are diminished along with diffuse expiratory wheezes throughout lung brown bilaterally and scattered rhonchi and scattered expiratory wheeze. Crackles in the right lung more than the left. Cardiac exam revealed the PMI to be normally situated and sized. The rhythm was regular and no extrasystoles were noted during several minutes of auscultation. The first and second heart sounds were normal and physiologic splitting of the second heart sound was noted. There were no murmurs, rubs, clicks, or gallops. Abdominal exam revealed normal bowel sounds. The abdomen was soft, non-tender, and without masses, organomegaly, or appreciable enlargement of the abdominal aorta. Examination of the extremities revealed easily palpable radial, femoral and pedal pulses. There was no cyanosis, clubbing or edema. Examination of the skin revealed no evidence of significant rashes, suspicious appearing nevi or other concerning lesions. Neurologically awake and alert and there is no focal neurological deficit. Results - Laboratory Findings CBC and BMP: 03/30/19 08:13 03/30/19 08:13 PT/INR, D-dimer PT 9.6 sec (9.0-12.0) 03/30/19 08:13 INR 0.9 (<1.2) 03/30/19 08:13 Abnormal lab findings: Abnormal Labs 03/30/19 03/30/19 08:13 08:13 WBC 17.3 H RBC 3.96 L MCV 101.3 H Neutrophils # 14.5 H Eosinophils # 0.9 H Sodium 133 L Chloride 95 L Creatinine 0.53 L Glucose 60 L Total Protein 5.7 L Albumin 2.8 L - Diagnostic Findings Chest x-ray: image reviewed Assessment and Plan Plan: 1 right upper lobe pneumonia with extensive right upper lobe consolidation 2 acute hypoxic respiratory failure secondary to above 3 acute COPD exacerbation secondary to above. The patient has severe COPD with an FEV1 of 36% of predicted at baseline based on a previous spirometry. 4 chronic smoking both tobacco and marijuana 5 history of coronary artery disease with previous [place] 6 history of basal being the hemorrhage/CVA 7 diabetes mellitus type 2 8 chronic pain syndrome 9 acid reflux KANDICE Obtain sputum Gram stain and culture. Obtain blood culture. Obtain Legionella urine antigen. Put the patient on oxygen at 2 L. Zosyn and Levaquin antibiotic coverage. DuoNeb nebulized treatments around the clock. Heparin subcu for DVT prophylaxis. Resume Lexapro. We'll continue to follow. The patient is on IV fluids with normal saline at the rate of 75 mL an hour.
--- NOTE | 2019-03-31 08:58 | P.PN ---
Subjective Progress Note Date: 03/31/19 Is a 58-year-old male patient presented with a massive right upper lobe pneumonia and shortness of breath. This patient is known to us. The patient was followed up in our office in the past several he was lost to follow-up. He is known to have COPD, which has been severe with an FEV1 of 36% of predicted,, coronary artery disease and previous history of CVA. He was then burst department on 03/14/2019 for lower extremity swelling and pain the patient was also complaining of chronic shortness of breath. In the emergency department, the patient had a chest x-ray that showed some early pneumonic changes in the right upper lobe. However, the main focus was his lower extremity pain. He was given Doppler of the lower extremities do not to be negative. The patient was advised to elevate his legs and follow-up with his primary care physician. The patient came into the ED on 03/30/2019 with worsening in his breathing. He apparently was progressively getting worse and he had increased cough and no significant sputum production. He had chills no documented fever. He was smoking cigarettes on a daily basis as well as marijuana. In the ED, chest x- ray was done that showed an extensive right upper lobe consolidation. Had a temperature of 99.1. He was slightly tachycardic with a heart rate of 108. No significant hypotension. White cell count was at 17.3. No altered mentation. No hemoptysis. No pleurisy. He was given Rocephin and he will admit to the hospital and pulmonary consultation was requested. Today's evaluation of a 03/31/2019 2019 the patient is feeling essentially the same, slightly better compared to yesterday and he tells that he had a good night sleep. Cough is less congested. He hasn't been able to give us any sputum. He is on broad-spectrum antibiotic. Hemodynamically stable. Afebrile for now. Still sleepy and lethargic. No other significant events overnight. The follow-up chest x-ray is to follow today. Objective - Vital Signs Vital signs: Vital Signs Temp 98.3 F 03/31/19 07:00 Pulse 94 03/31/19 08:52 Resp 16 03/31/19 07:00 BP 139/79 03/31/19 07:00 Pulse Ox 96 03/31/19 07:00 Intake & Output 03/30/19 03/31/19 03/31/19 18:59 06:59 18:59 Intake Total 200 Balance 200 Weight 80.739 kg Intake: Oral 200 Other: Voiding Method Toilet Urinal # Bowel Movements 1 - Exam Appearance, comfortable likely distress Head exam was generally normal. There was no scleral icterus or corneal arcus. Mucous membranes were moist. Neck was supple and without jugular venous distension, thyromegaly, or carotid bruits. Carotids were easily palpable bilaterally. There was no adenopathy. Lungs sounds are diminished along with diffuse expiratory wheezes throughout lung brown bilaterally and scattered rhonchi and scattered expiratory wheeze. Crackles in the right lung more than the left. Cardiac exam revealed the PMI to be normally situated and sized. The rhythm was regular and no extrasystoles were noted during several minutes of auscultation. The first and second heart sounds were normal and physiologic splitting of the second heart sound was noted. There were no murmurs, rubs, clicks, or gallops. Abdominal exam revealed normal bowel sounds. The abdomen was soft, non-tender, a nd without masses, organomegaly, or appreciable enlargement of the abdominal aorta. Examination of the extremities revealed easily palpable radial, femoral and pedal pulses. There was no cyanosis, clubbing or edema. Examination of the skin revealed no evidence of significant rashes, suspicious appearing nevi or other concerning lesions. Neurologically awake and alert and there is no focal neurological deficit. - Labs CBC & Chem 7: 03/31/19 06:47 03/31/19 06:47 Labs: Abnormal Lab Results - Last 24 Hours (Table) 03/30/19 03/30/19 03/30/19 Range/Units 08:13 08:13 20:26 WBC 17.3 H (3.8-10.6) k/uL RBC 3.96 L (4.30-5.90) m/uL Hgb (13.0-17.5) gm/dL Hct (39.0-53.0) % MCV 101.3 H (80.0-100.0) fL Neutrophils # 14.5 H (1.3-7.7) k/uL Lymphocytes # (1.0-4.8) k/uL Eosinophils # 0.9 H (0-0.7) k/uL Sodium 133 L (137-145) mmol/L Chloride 95 L (98-107) mmol/L Creatinine 0.53 L (0.66-1.25) mg/dL Glucose 60 L (74-99) mg/dL POC Glucose (mg/dL) 206 H (75-99) mg/dL Plasma Lactic Acid Gray (0.7-2.0) mmol/L Total Protein 5.7 L (6.3-8.2) g/dL Albumin 2.8 L (3.5-5.0) g/dL Urine Glucose (UA) (Negative) 03/30/19 03/31/19 03/31/19 Range/Units 23:10 01:55 06:47 WBC 13.4 H (3.8-10.6) k/uL RBC 3.72 L (4.30-5.90) m/uL Hgb 12.0 L (13.0-17.5) gm/dL Hct 37.9 L (39.0-53.0) % MCV 101.8 H (80.0-100.0) fL Neutrophils # 12.4 H (1.3-7.7) k/uL Lymphocytes # 0.6 L (1.0-4.8) k/uL Eosinophils # (0-0.7) k/uL Sodium (137-145) mmol/L Chloride (98-107) mmol/L Creatinine (0.66-1.25) mg/dL Glucose (74-99) mg/dL POC Glucose (mg/dL) (75-99) mg/dL Plasma Lactic Acid Gray 2.4 H* (0.7-2.0) mmol/L Total Protein (6.3-8.2) g/dL Albumin (3.5-5.0) g/dL Urine Glucose (UA) 1+ H (Negative) 03/31/19 03/31/19 03/31/19 Range/Units 06:47 06:47 06:59 WBC (3.8-10.6) k/uL RBC (4.30-5.90) m/uL Hgb (13.0-17.5) gm/dL Hct (39.0-53.0) % MCV (80.0-100.0) fL Neutrophils # (1.3-7.7) k/uL Lymphocytes # (1.0-4.8) k/uL Eosinophils # (0-0.7) k/uL Sodium 133 L (137-145) mmol/L Chloride (98-107) mmol/L Creatinine 0.48 L (0.66-1.25) mg/dL Glucose 193 H (74-99) mg/dL POC Glucose (mg/dL) 216 H (75-99) mg/dL Plasma Lactic Acid Gray 2.2 H* (0.7-2.0) mmol/L Total Protein (6.3-8.2) g/dL Albumin (3.5-5.0) g/dL Urine Glucose (UA) (Negative) Assessment and Plan Plan: 1 right upper lobe pneumonia with extensive right upper lobe consolidation 2 acute hypoxic respiratory failure secondary to above 3 acute COPD exacerbation secondary to above. The patient has severe COPD with an FEV1 of 36% of predicted at baseline based on a previous spirometry. 4 chronic smoking both tobacco and marijuana 5 history of coronary artery disease with previous [place] 6 history of basal being the hemorrhage/CVA 7 diabetes mellitus type 2 8 chronic pain syndrome 9 acid reflux Plan Clinically the patient is feeling slightly better compared to yesterday. Will be awaiting the sputum Gram stain and culture and hopefully this will be collected today. Obtain a follow-up chest x-ray that to monitor on the right upper lobe consolidation. Continue same antibiotic coverage and will continue to follow.
[2019-03-31] MEDS: ESCITALOPRAM 5 MG TAB PO SCH (09:02)
[2019-03-31 12:14] LABS: Glucose,Whole Blood 179 mg/dL (75-99)
[2019-03-31 15:00] LABS: Basophils # (A) 0.1 k/uL (0-0.2); Basophils % (A) 0 %; Eosinophils # (A) 0.1 k/uL (0-0.7); Eosinophils % (A) 1 %; HCT 37.3 % (39.0-53.0); HGB 12.2 gm/dL (13.0-17.5); Lymphocytes # (A) 0.5 k/uL (1.0-4.8); Lymphocytes % (A) 3 %; MCH 33.3 pg (25.0-35.0); MCHC 32.8 g/dL (31.0-37.0); MCV 101.5 fL (80.0-100.0); Macrocytosis Slight; Mean Platelet Volume 6.5; Monocytes # (A) 0.3 k/uL (0-1.0); Monocytes % (A) 2 %; Neutrophils # (A) 15.2 k/uL (1.3-7.7); Neutrophils % (A) 94 %; Platelet Count 437 k/uL (150-450); RBC 3.67 m/uL (4.30-5.90); RDW 13.9 % (11.5-15.5); WBC 16.2 k/uL (3.8-10.6)
[2019-03-31 17:15] LABS: Glucose,Whole Blood 219 mg/dL (75-99)
[2019-03-31] MEDS: methylPREDNISolone SOD SUCCI 40 MG/ML 1 ML VIAL IV SCH (17:21)
--- NOTE | 2019-03-31 17:49 | P.PN ---
Subjective 58-year-old is being treated for gram right lower upper lobe pneumonia as well as COPD exacerbation patient FEV1 is 76% patient is still short of breath patient is on broad-spectrum antibiotics levofloxacin will be discontinued and Zosyn will be continued. Awaiting sputum cultures Constitutional: Denied any fatigue denied any fever. Cardio vascular: denied any chest pain, palpitations Gastrointestinal denied any nausea vomiting Pulmonary: as mentioned in HPI Neurologic denied any new focal deficits All inpatient medications were reviewed and appropriate changes in these medications as dictated in the interval history and assessment and plan. Objective - Vital Signs Vital signs: Vital Signs Temp 97.4 F L 03/31/19 14:16 Pulse 96 03/31/19 16:49 Resp 16 03/31/19 14:50 BP 119/70 03/31/19 14:16 Pulse Ox 92 L 03/31/19 14:16 Intake & Output 03/30/19 03/31/19 03/31/19 18:59 06:59 18:59 Intake Total 200 Balance 200 Weight 80.739 kg Intake: Oral 200 Other: Voiding Method Toilet Urinal Urinal # Voids 2 # Bowel Movements 1 1 - Exam PHYSICAL EXAMINATION: GENERAL: The patient is alert and oriented x3, not in any acute distress. Well developed, well nourished. HEENT: Pupils are round and equally reacting to light. EOMI. No scleral icterus. No conjunctival pallor. Normocephalic, atraumatic. No pharyngeal erythema. No thyromegaly. CARDIOVASCULAR: S1 and S2 present. No murmurs, rubs, or gallops. PULMONARY: Very wheezing rhonchus breath sounds ABDOMEN: Soft, nontender, nondistended, normoactive bowel sounds. No palpable organomegaly. MUSCULOSKELETAL: No joint swelling or deformity. EXTREMITIES: No cyanosis, clubbing, or pedal edema. NEUROLOGICAL: Gross neurological examination did not reveal any focal deficits. SKIN: No rashes. - Labs CBC & Chem 7: 03/31/19 14:46 03/31/19 06:47 Labs: Abnormal Lab Results - Last 24 Hours (Table) 03/30/19 03/30/19 03/31/19 Range/Units 20:26 23:10 01:55 WBC (3.8-10.6) k/uL RBC (4.30-5.90) m/uL Hgb (13.0-17.5) gm/dL Hct (39.0-53.0) % MCV (80.0-100.0) fL Neutrophils # (1.3-7.7) k/uL Lymphocytes # (1.0-4.8) k/uL Sodium (137-145) mmol/L Creatinine (0.66-1.25) mg/dL Glucose (74-99) mg/dL POC Glucose (mg/dL) 206 H (75-99) mg/dL Plasma Lactic Acid Gray 2.4 H* (0.7-2.0) mmol/L Urine Glucose (UA) 1+ H (Negative) 03/31/19 03/31/19 03/31/19 Range/Units 06:47 06:47 06:47 WBC 13.4 H (3.8-10.6) k/uL RBC 3.72 L (4.30-5.90) m/uL Hgb 12.0 L (13.0-17.5) gm/dL Hct 37.9 L (39.0-53.0) % MCV 101.8 H (80.0-100.0) fL Neutrophils # 12.4 H (1.3-7.7) k/uL Lymphocytes # 0.6 L (1.0-4.8) k/uL Sodium 133 L (137-145) mmol/L Creatinine 0.48 L (0.66-1.25) mg/dL Glucose 193 H (74-99) mg/dL POC Glucose (mg/dL) (75-99) mg/dL Plasma Lactic Acid Gray 2.2 H* (0.7-2.0) mmol/L Urine Glucose (UA) (Negative) 03/31/19 03/31/19 03/31/19 Range/Units 06:59 12:11 14:46 WBC 16.2 H (3.8-10.6) k/uL RBC 3.67 L (4.30-5.90) m/uL Hgb 12.2 L (13.0-17.5) gm/dL Hct 37.3 L (39.0-53.0) % MCV 101.5 H (80.0-100.0) fL Neutrophils # 15.2 H (1.3-7.7) k/uL Lymphocytes # 0.5 L (1.0-4.8) k/uL Sodium (137-145) mmol/L Creatinine (0.66-1.25) mg/dL Glucose (74-99) mg/dL POC Glucose (mg/dL) 216 H 179 H (75-99) mg/dL Plasma Lactic Acid Gray (0.7-2.0) mmol/L Urine Glucose (UA) (Negative) 03/31/19 Range/Units 16:51 WBC (3.8-10.6) k/uL RBC (4.30-5.90) m/uL Hgb (13.0-17.5) gm/dL Hct (39.0-53.0) % MCV (80.0-100.0) fL Neutrophils # (1.3-7.7) k/uL Lymphocytes # (1.0-4.8) k/uL Sodium (137-145) mmol/L Creatinine (0.66-1.25) mg/dL Glucose (74-99) mg/dL POC Glucose (mg/dL) 219 H (75-99) mg/dL Plasma Lactic Acid Gray (0.7-2.0) mmol/L Urine Glucose (UA) (Negative) Microbiology - Last 24 Hours (Table) 03/30/19 23:10 Urine Culture - Preliminary Urine,Voided Assessment and Plan Plan: -acute hypoxic and hypercapnic respiratory failure secondary to right upper lobe pneumonia for which patient is Zosyn can you with systemic steroids for COPD exacerbation -Tobacco abuse and marijuana abuse: Counseling was provided -coronary artery disease -History of CVA in the past next and-type 2 diabetes mellitus -Chronic pain syndrome -Gastroesophageal reflux disease
[2019-03-31] MEDS: MONTELUKAST 10 MG TAB PO SCH (20:02)
[2019-03-31] MEDS: TEMAZEPAM 15 MG CAP PO PRN (20:02)
[2019-03-31 20:15] LABS: Glucose,Whole Blood 159 mg/dL (75-99)
[2019-04-01] MEDS: PIPERACILLIN-TAZOBACTAM 3.375 GM in SODIUM CHLORIDE 0.9% 100 ML IVPB SCH ×3 (00:11→17:06)
[2019-04-01] MEDS: methylPREDNISolone SOD SUCCI 40 MG/ML 1 ML VIAL IV SCH ×3 (00:12→17:06)
[2019-04-01] MEDS: GABAPENTIN 400 MG CAP PO PRN ×3 (00:15→20:05)
[2019-04-01] MEDS: HYDROcodone/APAP 5-325MG 1 EACH TAB PO PRN ×3 (02:56→20:06)
[2019-04-01] MEDS: IPRATROPIUM-ALBUTEROL 3 ML NEB INHALATION PRN ×2 (03:11→23:33)
[2019-04-01] MEDS: guaiFENesin SYRUP 100MG/5ML 200 MG/10 ML CUP PO PRN ×3 (03:28→20:31)
[2019-04-01 07:23] LABS: Glucose,Whole Blood 162 mg/dL (75-99)
[2019-04-01] MEDS: NICOTINE 14MG/24HR PATCH TRANSDERM SCH (08:18)
[2019-04-01] MEDS: INSULIN ASPART (NovoLOG) 100 UNIT/ML VIAL SQ SCH ×4 (08:19→21:59)
[2019-04-01] MEDS: LISINOPRIL 5 MG TAB PO SCH (08:19)
[2019-04-01] MEDS: ALPRAZolam 0.25 MG TAB PO PRN ×2 (08:19→20:06)
[2019-04-01] MEDS: FAMOTIDINE 20 MG TAB PO SCH ×2 (08:19→20:08)
[2019-04-01] MEDS: ESCITALOPRAM 5 MG TAB PO SCH (08:19)
[2019-04-01] MEDS: HEPARIN SODIUM,PORCINE 5,000 UNIT/ML 1 ML VIAL SQ SCH ×2 (08:20→20:08)
[2019-04-01] MEDS: IPRATROPIUM-ALBUTEROL 3 ML NEB INHALATION SCH ×4 (09:00→19:58)
[2019-04-01] MEDS: SYMBICORT 160-4.5 MCG INHALER INHALATION SCH ×2 (09:00→19:58)
[2019-04-01 09:25] LABS: Basophils # (A) 0.1 k/uL (0-0.2); Basophils % (A) 0 %; Eosinophils % (A) 0 %; HCT 39.6 % (39.0-53.0); HGB 12.8 gm/dL (13.0-17.5); Lymphocytes # (A) 0.6 k/uL (1.0-4.8); Lymphocytes % (A) 3 %; MCHC 32.4 g/dL (31.0-37.0); MCV 101.8 fL (80.0-100.0); Macrocytosis Slight; Mean Platelet Volume 6.4; Monocytes # (A) 0.6 k/uL (0-1.0); Monocytes % (A) 3 %; Neutrophils # (A) 18.8 k/uL (1.3-7.7); Neutrophils % (A) 93 %; Platelet Count 483 k/uL (150-450); RBC 3.89 m/uL (4.30-5.90); RDW 13.9 % (11.5-15.5); WBC 20.2 k/uL (3.8-10.6)
[2019-04-01 09:39] LABS: African American GFR (CKD) >90 (>60 ml/min/1.73 sqM); Anion Gap 7 mmol/L; Blood Urea Nitrogen 16 mg/dL (9-20); Calcium 8.8 mg/dL (8.4-10.2); Carbon Dioxide 30 mmol/L (22-30); Chloride 100 mmol/L (98-107); Glucose 140 mg/dL (74-99); Sodium 137 mmol/L (137-145)
--- NOTE | 2019-04-01 10:10 | XR ---
EXAMINATION TYPE: XR chest 2V DATE OF EXAM: 04/01/2019 COMPARISON: 03/30/2019 TECHNIQUE: PA and lateral views submitted. HISTORY: Cough abnormal x-ray possible pneumonia FINDINGS: There is improving right upper lobe consolidation. Underlying COPD and chronic interstitial lung dise ase suspected. No sizable pleural effusion. Degenerative changes of the spine. IMPRESSION: 1. Improving right upper lobe consolidation suggestive of improving pneumonia. Follow to resolution t o exclude underlying neoplasm.
[2019-04-01 12:06] LABS: Glucose,Whole Blood 160 mg/dL (75-99)
--- NOTE | 2019-04-01 13:26 | P.PN ---
Subjective Progress Note Date: 04/01/19 Principal diagnosis: Is a 58-year-old male patient presented with a massive right upper lobe pneumonia and shortness of breath. This patient is known to us. The patient was followed up in our office in the past several he was lost to follow-up. He is known to have COPD, which has been severe with an FEV1 of 36% of predicted,, coronary artery disease and previous history of CVA. He was then burst department on 03/14/2019 for lower extremity swelling and pain the patient was also complaining of chronic shortness of breath. In the emergency department, the patient had a chest x-ray that showed some early pneumonic changes in the right upper lobe. However, the main focus was his lower extremity pain. He was given Doppler of the lower extremities do not to be negative. The patient was advised to elevate his legs and follow-up with his primary care physician. The patient came into the ED on 03/30/2019 with worsening in his breathing. He apparently was progressively getting worse and he had increased cough and no significant sputum production. He had chills no documented fever. He was smoking cigarettes on a daily basis as well as marijuana. In the ED, chest x- ray was done that showed an extensive right upper lobe consolidation. Had a temperature of 99.1. He was slightly tachycardic with a heart rate of 108. No significant hypotension. White cell count was at 17.3. No altered mentation. No hemoptysis. No pleurisy. He was given Rocephin and he will admit to the hospital and pulmonary consultation was requested. Today's evaluation of a 03/31/2019 2019 the patient is feeling essentially the same, slightly better compared to yesterday and he tells that he had a good night sleep. Cough is less congested. He hasn't been able to give us any sputum. He is on broad-spectrum antibiotic. Hemodynamically stable. Afebrile for now. Still sleepy and lethargic. No other significant events overnight. The follow-up chest x-ray is to follow today. 04/01/2019 Patient is sitting up in bed in no acute distress. Patient is currently on 2-3 L of oxygen via nasal cannula. Patient states that his shortness of breath has improved although still has a cough. Patient denies any chest pain or palpitations at this time. Patient is afebrile. Patient denies any nausea or vomiting and tolerating diet well. Follow-up chest x-ray this morning shows improving right upper lobe consolidation which is suggestive of improving pneumonia. Pulmonary is following. Cultures thus far are negative and pending. Patient is currently on IV antibiotics in the form of Zosyn. Guarded prognosis Objective - Vital Signs Vital signs: Vital Signs Temp 98 F 04/01/19 04:35 Pulse 94 04/01/19 11:21 Resp 20 04/01/19 08:00 BP 140/71 04/01/19 04:35 Pulse Ox 100 04/01/19 04:35 Intake & Output 03/31/19 04/01/19 04/01/19 18:59 06:59 18:59 Intake Total 600 480 Balance 600 480 Intake: Oral 600 480 Other: Voiding Method Urinal Urinal Incontinent # Voids 2 1 # Bowel Movements 1 - Exam Gen: This is a 58-year-old male sitting up in bed in no acute distress. Vital signs are stable. Blood pressure is 140/71, pulse is 80, respirations are 20, temp is 98F, oxygen saturation is 100% on 2 L nasal cannula. HEENT: Head is atraumatic, normocephalic. Pupil on the right is round and reac tive. 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 Sclerae is anicteric. NECK: Supple. No JVD. No lymphadenopathy. No thyromegaly. LUNGS: Breath sounds diminished bilaterally with expiratory wheezing noted on exam.. A few scattered rhonchi noted as well. No intercostal retractions. HEART: Regular rate and rhythm. No murmur. ABDOMEN: Soft. Bowel sounds are present. No masses. No tenderness. EXTREMITIES: No pedal edema. No calf tenderness. NEUROLOGICAL: Patient is awake, alert and oriented x3. Cranial nerves 2 through 12 are grossly intact. SKIN: No rashes or lesions noted. - Labs CBC & Chem 7: 04/01/19 09:11 04/01/19 09:11 Labs: Abnormal Lab Results - Last 24 Hours (Table) 03/31/19 03/31/19 03/31/19 Range/Units 14:46 16:51 20:12 WBC 16.2 H (3.8-10.6) k/uL RBC 3.67 L (4.30-5.90) m/uL Hgb 12.2 L (13.0-17.5) gm/dL Hct 37.3 L (39.0-53.0) % MCV 101.5 H (80.0-100.0) fL Plt Count (150-450) k/uL Neutrophils # 15.2 H (1.3-7.7) k/uL Lymphocytes # 0.5 L (1.0-4.8) k/uL Creatinine (0.66-1.25) mg/dL Glucose (74-99) mg/dL POC Glucose (mg/dL) 219 H 159 H (75-99) mg/dL 04/01/19 04/01/19 04/01/19 Range/Units 07:10 09:11 09:11 WBC 20.2 H (3.8-10.6) k/uL RBC 3.89 L (4.30-5.90) m/uL Hgb 12.8 L (13.0-17.5) gm/dL Hct (39.0-53.0) % MCV 101.8 H (80.0-100.0) fL Plt Count 483 H (150-450) k/uL Neutrophils # 18.8 H (1.3-7.7) k/uL Lymphocytes # 0.6 L (1.0-4.8) k/uL Creatinine 0.57 L (0.66-1.25) mg/dL Glucose 140 H (74-99) mg/dL POC Glucose (mg/dL) 162 H (75-99) mg/dL 04/01/19 Range/Units 11:39 WBC (3.8-10.6) k/uL RBC (4.30-5.90) m/uL Hgb (13.0-17.5) gm/dL Hct (39.0-53.0) % MCV (80.0-100.0) fL Plt Count (150-450) k/uL Neutrophils # (1.3-7.7) k/uL Lymphocytes # (1.0-4.8) k/uL Creatinine (0.66-1.25) mg/dL Glucose (74-99) mg/dL POC Glucose (mg/dL) 160 H (75-99) mg/dL Microbiology - Last 24 Hours (Table) 03/30/19 23:10 Urine Culture - Final Urine,Voided 03/31/19 01:55 Blood Culture - Preliminary Blood No Growth after 24 hours 03/31/19 15:10 Gram Stain - Preliminary Sputum Sputum Culture - Preliminary Assessment and Plan Assessment: 1 right upper lobe pneumonia with extensive right upper lobe consolidation; today's chest x-ray shows some improvement 2 acute hypoxic respiratory failure secondary to above 3 acute COPD exacerbation secondary to above. The patient has severe COPD with an FEV1 of 36% of predicted at baseline based on a previous spirometry. 4 chronic smoking both tobacco and marijuana 5 history of coronary artery disease with previous [place] 6 history of basal being the hemorrhage/CVA 7 diabetes mellitus type 2 8 chronic pain syndrome 9 acid reflux Plan Clinically the patient is feeling slightly better compared to yesterday. Will be awaiting the sputum Gram stain and culture and thus far shows no growth. We will continue to monitor. Patient will continue on bronchodilators as well as steroids at this time. Pulmonary is following. Continue same antibiotic coverage and will continue to follow. Guarded prognosis. Further recommendations to follow.
[2019-04-01 17:23] LABS: Glucose,Whole Blood 130 mg/dL (75-99)
--- NOTE | 2019-04-01 17:23 | P.PN ---
Subjective Progress Note Date: 04/01/19 Principal diagnosis: Right upper lobe pneumonia with dyspnea The patient is seen today 04/01/2019 in follow-up on the regular medical floor. He is currently resting comfortably in bed. Awake and alert in no acute distress. Breathing easier today as compared to yesterday. Chest x-ray shows improvement in the right upper lobe consolidation. He is maintaining good O2 saturations in the upper 90s on 2 L/m per nasal cannula. He is afebrile. Hemodynamically stable. Blood and sputum cultures pending. Urine culture reveals no growth. White count 20.2. Hemoglobin 12.8. Creatinine 0.57. He remains on DuoNeb inhalations, Symbicort, IV Solu-Medrol. Antibiotics in the f orm of Zosyn. Objective - Vital Signs Vital signs: Vital Signs Temp 98.5 F 04/01/19 15:00 Pulse 89 04/01/19 15:41 Resp 16 04/01/19 16:00 BP 132/76 04/01/19 15:00 Pulse Ox 98 04/01/19 15:00 Intake & Output 03/31/19 04/01/19 04/01/19 18:59 06:59 18:59 Intake Total 600 480 Balance 600 480 Intake: Oral 600 480 Other: Voiding Method Urinal Urinal Incontinent # Voids 2 1 1 # Bowel Movements 1 - Exam GENERAL EXAM: Alert, active, comfortable in no apparent distress. On 2 L nasal cannula. HEAD: Normocephalic. EYES: Right eye prosthetic. NOSE: Clear with pink turbinates. THROAT: No erythema or exudates. NECK: No masses, no JVD. CHEST: No chest wall deformity. LUNGS: Equal air entry with scattered rhonchi more so on the right lung. CVS: S1 and S2 normal with no audible murmur, regular rhythm. ABDOMEN: No hepatosplenomegaly, normal bowel sounds, no guarding or rigidity. SPINE: No scoliosis or deformity SKIN: No rashes CENTRAL NERVOUS SYSTEM: No focal deficits, tone is normal in all 4 extremities. EXTREMITIES: There is no peripheral edema. No clubbing, no cyanosis. Peripheral pulses are intact. - Labs CBC & Chem 7: 04/01/19 09:11 04/01/19 09:11 Labs: Abnormal Lab Results - Last 24 Hours (Table) 08/04/01/19 04/01/19 Range/Units 20:12 07:10 09:11 WBC 20.2 H (3.8-10.6) k/uL RBC 3.89 L (4.30-5.90) m/uL Hgb 12.8 L (13.0-17.5) gm/dL MCV 101.8 H (80.0-100.0) fL Plt Count 483 H (150-450) k/uL Neutrophils # 18.8 H (1.3-7.7) k/uL Lymphocytes # 0.6 L (1.0-4.8) k/uL Creatinine (0.66-1.25) mg/dL Glucose (74-99) mg/dL POC Glucose (mg/dL) 159 H 162 H (75-99) mg/dL 04/01/19 04/01/19 Range/Units 09:11 11:39 WBC (3.8-10.6) k/uL RBC (4.30-5.90) m/uL Hgb (13.0-17.5) gm/dL MCV (80.0-100.0) fL Plt Count (150-450) k/uL Neutrophils # (1.3-7.7) k/uL Lymphocytes # (1.0-4.8) k/uL Creatinine 0.57 L (0.66-1.25) mg/dL Glucose 140 H (74-99) mg/dL POC Glucose (mg/dL) 160 H (75-99) mg/dL Microbiology - Last 24 Hours (Table) 03/30/19 23:10 Urine Culture - Final Urine,Voided 03/31/19 01:55 Blood Culture - Preliminary Blood No Growth after 24 hours 03/31/19 15:10 Gram Stain - Preliminary Sputum Sputum Culture - Preliminary Assessment and Plan Assessment: Impression: 1 right upper lobe pneumonia with extensive right upper lobe consolidation 2 acute hypoxic respiratory failure secondary to above 3 acute COPD exacerbation secondary to above. The patient has severe COPD with an FEV1 of 36% of predicted at baseline based on a previous spirometry. 4 chronic smoking both tobacco and marijuana 5 history of coronary artery disease with previous [place] 6 history of basal being the hemorrhage/CVA 7 diabetes mellitus type 2 8 chronic pain syndrome 9 acid reflux Plan: The patient was seen and evaluated by Dr. Garcia. Chest x-ray and labs reviewed. We'll continue with the current treatment plan. The patient is improving gradually. We will increase his activity as tolerated. Titrate down the FiO2 as tolerated. We'll continue to follow make further recommendations based on his clinical status. I, the cosigning physician, performed a history & physical examination of the patient. Lungs sounds with bilateral scattered rhonchi right greater than left Maintaining good O2 saturations in the 90s on 2 L/m per nasal. I discussed the assessment and plan of care with my nurse practitioner, Crissy Bland. I attest to the above note as dictated by her.
[2019-04-01] MEDS: MONTELUKAST 10 MG TAB PO SCH (20:05)
[2019-04-01] MEDS: TEMAZEPAM 15 MG CAP PO PRN (20:32)
[2019-04-01 20:56] LABS: Glucose,Whole Blood 157 mg/dL (75-99)
[2019-04-02] MEDS: methylPREDNISolone SOD SUCCI 40 MG/ML 1 ML VIAL IV SCH ×2 (00:38→07:52)
[2019-04-02] MEDS: PIPERACILLIN-TAZOBACTAM 3.375 GM in SODIUM CHLORIDE 0.9% 100 ML IVPB SCH ×4 (00:39→23:54)
[2019-04-02] MEDS: IPRATROPIUM-ALBUTEROL 3 ML NEB INHALATION PRN ×2 (03:33→23:09)
[2019-04-02] MEDS: HYDROcodone/APAP 5-325MG 1 EACH TAB PO PRN ×3 (03:49→20:52)
[2019-04-02] MEDS: guaiFENesin SYRUP 100MG/5ML 200 MG/10 ML CUP PO PRN ×3 (03:49→20:59)
[2019-04-02 07:17] LABS: Glucose,Whole Blood 138 mg/dL (75-99)
[2019-04-02] MEDS: IPRATROPIUM-ALBUTEROL 3 ML NEB INHALATION SCH ×4 (07:22→19:07)
[2019-04-02] MEDS: SYMBICORT 160-4.5 MCG INHALER INHALATION SCH ×2 (07:23→19:07)
[2019-04-02] MEDS: ESCITALOPRAM 5 MG TAB PO SCH (07:51)
[2019-04-02] MEDS: NICOTINE 14MG/24HR PATCH TRANSDERM SCH (07:51)
[2019-04-02] MEDS: FAMOTIDINE 20 MG TAB PO SCH ×2 (07:51→20:55)
[2019-04-02] MEDS: HEPARIN SODIUM,PORCINE 5,000 UNIT/ML 1 ML VIAL SQ SCH ×3 (07:52→20:56)
[2019-04-02] MEDS: LISINOPRIL 5 MG TAB PO SCH (07:52)
[2019-04-02] MEDS: INSULIN ASPART (NovoLOG) 100 UNIT/ML VIAL SQ SCH ×4 (07:53→20:57)
[2019-04-02] MEDS: ALPRAZolam 0.25 MG TAB PO PRN ×2 (08:00→20:55)
[2019-04-02] MEDS: GABAPENTIN 400 MG CAP PO PRN (08:06)
[2019-04-02 09:46] LABS: Basophils % (A) 0 %; Eosinophils # (A) 0.1 k/uL (0-0.7); Eosinophils % (A) 0 %; HCT 41.1 % (39.0-53.0); HGB 13.2 gm/dL (13.0-17.5); Hypochromasia Moderate; Lymphocytes # (A) 0.7 k/uL (1.0-4.8); Lymphocytes % (A) 4 %; MCH 33.9 pg (25.0-35.0); MCHC 32.1 g/dL (31.0-37.0); MCV 105.6 fL (80.0-100.0); Macrocytosis Moderate; Mean Platelet Volume 7.1; Monocytes # (A) 0.7 k/uL (0-1.0); Monocytes % (A) 4 %; Neutrophils % (A) 91 %; Platelet Count 472 k/uL (150-450); RBC 3.89 m/uL (4.30-5.90); RDW 13.5 % (11.5-15.5); WBC 17.6 k/uL (3.8-10.6)
[2019-04-02 10:00] LABS: African American GFR (CKD) >90 (>60 ml/min/1.73 sqM); Anion Gap 7 mmol/L; Blood Urea Nitrogen 18 mg/dL (9-20); Carbon Dioxide 29 mmol/L (22-30); Chloride 99 mmol/L (98-107); Glucose 138 mg/dL (74-99); Sodium 135 mmol/L (137-145)
[2019-04-02 12:52] LABS: Glucose,Whole Blood 133 mg/dL (75-99)
[2019-04-02] MEDS: GABAPENTIN 400 MG CAP PO SCH ×4 (13:25→23:54)
--- NOTE | 2019-04-02 15:51 | P.PN ---
Subjective Progress Note Date: 04/02/19 Principal diagnosis: Is a 58-year-old male patient presented with a massive right upper lobe pneumonia and shortness of breath. This patient is known to us. The patient was followed up in our office in the past several he was lost to follow-up. He is known to have COPD, which has been severe with an FEV1 of 36% of predicted,, coronary artery disease and previous history of CVA. He was then burst department on 03/14/2019 for lower extremity swelling and pain the patient was also complaining of chronic shortness of breath. In the emergency department, the patient had a chest x-ray that showed some early pneumonic changes in the right upper lobe. However, the main focus was his lower extremity pain. He was given Doppler of the lower extremities do not to be negative. The patient was advised to elevate his legs and follow-up with his primary care physician. The patient came into the ED on 03/30/2019 with worsening in his breathing. He apparently was progressively getting worse and he had increased cough and no significant sputum production. He had chills no documented fever. He was smoking cigarettes on a daily basis as well as marijuana. In the ED, chest x- ray was done that showed an extensive right upper lobe consolidation. Had a temperature of 99.1. He was slightly tachycardic with a heart rate of 108. No significant hypotension. White cell count was at 17.3. No altered mentation. No hemoptysis. No pleurisy. He was given Rocephin and he will admit to the hospital and pulmonary consultation was requested. Today's evaluation of a 03/31/2019 2019 the patient is feeling essentially the same, slightly better compared to yesterday and he tells that he had a good night sleep. Cough is less congested. He hasn't been able to give us any sputum. He is on broad-spectrum antibiotic. Hemodynamically stable. Afebrile for now. Still sleepy and lethargic. No other significant events overnight. The follow-up chest x-ray is to follow today. 04/01/2019 Patient is sitting up in bed in no acute distress. Patient is currently on 2-3 L of oxygen via nasal cannula. Patient states that his shortness of breath has improved although still has a cough. Patient denies any chest pain or palpitations at this time. Patient is afebrile. Patient denies any nausea or vomiting and tolerating diet well. Follow-up chest x-ray this morning shows improving right upper lobe consolidation which is suggestive of improving pneumonia. Pulmonary is following. Cultures thus far are negative and pending. Patient is currently on IV antibiotics in the form of Zosyn. Guarded prognosis 04/02/2019 Patient is lying in the bed in no acute distress. Patient is currently on 2 L of oxygen via nasal cannula and states that he wears this at home and is O2 dependent. Patient states that his shortness of breath is about the same or slightly improved. Patient is currently being switched over to oral prednisone. Patient is currently still on IV antibiotics at this time and we'll continue to monitor closely. Sputum culture shows gram-negative bacilli aspergillus species. Pulmonary is following. Patient denies any chest pain or palpitations at this time. Patient is tolerating diet with no signs of nausea or vomiting. Patient states that he was having some difficulty with ambulation due to his shortness of breath earlier today but has resolved. Guarded prognosis. Objective - Vital Signs Vital signs: Vital Signs Temp 97.6 F 04/02/19 07:00 Pulse 84 04/02/19 12:11 Resp 18 04/02/19 07:00 BP 137/83 04/02/19 07:00 Pulse Ox 94 L 04/02/19 07:00 Intake & Output 04/01/19 04/02/19 04/02/19 18:59 06:59 18:59 Intake Total 480 400 Balance 480 400 Intake: Oral 480 400 Other: Voiding Method Urinal Urinal Incontinent Incontinent # Voids 1 2 1 # Bowel Movements 1 - Exam Gen: This is a 58-year-old male sitting up in bed in no acute distress. Vital signs are stable. Patient normally uses 2 L of oxygen but is requiring 3 L and is at 96% HEENT: Head is atraumatic, normocephalic. Pupil on the right is round and reactive. 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 Sclerae is anicteric. NECK: Supple. No JVD. No lymphadenopathy. No thyromegaly. LUNGS: Breath sounds diminished bilaterally with expiratory wheezing noted on exam.. A few scattered rhonchi and crackles noted as well. No intercostal retractions. HEART: Regular rate and rhythm. No murmur. ABDOMEN: Soft. Bowel sounds are present. No masses. No tenderness. EXTREMITIES: No pedal edema. No calf tenderness. NEUROLOGICAL: Patient is awake, alert and oriented x3. Cranial nerves 2 through 12 are grossly intact. SKIN: No rashes or lesions noted. - Labs CBC & Chem 7: 04/02/19 09:16 04/02/19 09:16 Labs: Abnormal Lab Results - Last 24 Hours (Table) 04/01/19 04/01/19 04/02/19 Range/Units 17:13 20:52 06:50 WBC (3.8-10.6) k/uL RBC (4.30-5.90) m/uL MCV (80.0-100.0) fL Plt Count (150-450) k/uL Neutrophils # (1.3-7.7) k/uL Lymphocytes # (1.0-4.8) k/uL Sodium (137-145) mmol/L Creatinine (0.66-1.25) mg/dL Glucose (74-99) mg/dL POC Glucose (mg/dL) 130 H 157 H 138 H (75-99) mg/dL 04/02/19 04/02/19 04/02/19 Range/Units 09:16 09:16 12:00 WBC 17.6 H (3.8-10.6) k/uL RBC 3.89 L (4.30-5.90) m/uL MCV 105.6 H (80.0-100.0) fL Plt Count 472 H (150-450) k/uL Neutrophils # 16.0 H (1.3-7.7) k/uL Lymphocytes # 0.7 L (1.0-4.8) k/uL Sodium 135 L (137-145) mmol/L Creatinine 0.52 L (0.66-1.25) mg/dL Glucose 138 H (74-99) mg/dL POC Glucose (mg/dL) 133 H (75-99) mg/dL Microbiology - Last 24 Hours (Table) 03/31/19 15:10 Gram Stain - Preliminary Sputum Sputum Culture - Preliminary Aspergillus species Gram Neg Bacilli 03/31/19 01:55 Blood Culture - Preliminary Blood No Growth after 48 hours 03/30/19 23:10 Urine Culture - Final Urine,Voided Assessment and Plan Assessment: 1 right upper lobe pneumonia with extensive right upper lobe consolidation 2 acute hypoxic respiratory failure secondary to above 3 acute COPD exacerbation secondary to above. The patient has severe COPD with an FEV1 of 36% of predicted at baseline based on a previous spirometry. 4 chronic smoking both tobacco and marijuana 5 history of coronary artery disease with previous [place] 6 history of basal being the hemorrhage/CVA 7 diabetes mellitus type 2 8 chronic pain syndrome 9 acid reflux Plan Clinically the patient is feeling slightly better compared to yesterday. We will continue to monitor. Patient will continue on bronchodilators as well as steroids at this time. Oral steroids have been started. Pulmonary is following. Continue same antibiotic coverage and will continue to follow. Guarded prognosis. Further recommendations to follow.
--- NOTE | 2019-04-02 15:53 | P.PN ---
Subjective Progress Note Date: 04/02/19 Principal diagnosis: Right upper lobe pneumonia with dyspnea The patient is seen today 04/02/2019 in follow-up on the regular medical floor. He is currently resting comfortably in bed. Awake and alert in no acute distress. Breathing a bit easier today as compared to yesterday. Continues with a loose cough. He is maintaining good O2 saturations in the 90s on 3 L/m per nasal cannula. Sputum culture positive for Aspergillus species gram- negative bacilli blood cultures reveal no growth. Urine culture reveals no growth. White count 17.6. Hemoglobin 13.2. Creatinine 0.52. He is currently on Zosyn. DuoNeb inhalations, Symbicort, Singulair, oral prednisone. NicoDerm patch is in place. Objective - Vital Signs Vital signs: Vital Signs Temp 97.6 F 04/02/19 07:00 Pulse 84 04/02/19 12:11 Resp 18 04/02/19 07:00 BP 137/83 04/02/19 07:00 Pulse Ox 94 L 04/02/19 07:00 Intake & Output 04/01/19 04/02/19 04/02/19 18:59 06:59 18:59 Intake Total 480 400 Balance 480 400 Intake: Oral 480 400 Other: Voiding Method Urinal Urinal Incontinent Incontinent # Voids 1 2 1 # Bowel Movements 1 - Exam GENERAL EXAM: Alert, pleasant 58 year old gentleman, fairly comfortable in no apparent distress. On 3 L nasal cannula. HEAD: Normocephalic. EYES: Right eye prosthetic. NOSE: Clear with pink turbinates. THROAT: No erythema or exudates. NECK: No masses, no JVD. CHEST: No chest wall deformity. LUNGS: Equal air entry with scattered rhonchi more so on the right lung. CVS: S1 and S2 normal with no audible murmur, regular rhythm. ABDOMEN: No hepatosplenomegaly, normal bowel sounds, no guarding or rigidity. SPINE: No scoliosis or deformity SKIN: No rashes CENTRAL NERVOUS SYSTEM: No focal deficits, tone is normal in all 4 extremities. EXTREMITIES: There is no peripheral edema. No clubbing, no cyanosis. Perip heral pulses are intact. - Labs CBC & Chem 7: 04/02/19 09:16 04/02/19 09:16 Labs: Abnormal Lab Results - Last 24 Hours (Table) 04/01/19 04/01/19 04/02/19 Range/Units 17:13 20:52 06:50 WBC (3.8-10.6) k/uL RBC (4.30-5.90) m/uL MCV (80.0-100.0) fL Plt Count (150-450) k/uL Neutrophils # (1.3-7.7) k/uL Lymphocytes # (1.0-4.8) k/uL Sodium (137-145) mmol/L Creatinine (0.66-1.25) mg/dL Glucose (74-99) mg/dL POC Glucose (mg/dL) 130 H 157 H 138 H (75-99) mg/dL 04/02/19 04/02/19 04/02/19 Range/Units 09:16 09:16 12:00 WBC 17.6 H (3.8-10.6) k/uL RBC 3.89 L (4.30-5.90) m/uL MCV 105.6 H (80.0-100.0) fL Plt Count 472 H (150-450) k/uL Neutrophils # 16.0 H (1.3-7.7) k/uL Lymphocytes # 0.7 L (1.0-4.8) k/uL Sodium 135 L (137-145) mmol/L Creatinine 0.52 L (0.66-1.25) mg/dL Glucose 138 H (74-99) mg/dL POC Glucose (mg/dL) 133 H (75-99) mg/dL Microbiology - Last 24 Hours (Table) 03/31/19 15:10 Gram Stain - Preliminary Sputum Sputum Culture - Preliminary Aspergillus species Gram Neg Bacilli 03/31/19 01:55 Blood Culture - Preliminary Blood No Growth after 48 hours 03/30/19 23:10 Urine Culture - Final Urine,Voided Assessment and Plan Assessment: Impression: 1 right upper lobe pneumonia with extensive right upper lobe consolidation secondary to Aspergillus species, gram-negative bacilli 2 acute hypoxic respiratory failure secondary to above 3 acute COPD exacerbation secondary to above. The patient has severe COPD with an FEV1 of 36% of predicted at baseline based on a previous spirometry. 4 chronic smoking both tobacco and marijuana 5 history of coronary artery disease with previous [place] 6 history of basal being the hemorrhage/CVA 7 diabetes mellitus type 2 8 chronic pain syndrome 9 acid reflux Plan: The patient was seen and evaluated by Dr. Garcia. Sputum culture and labs reviewed. Obtain Aspergillus fumigatus IgE level. Continue Zosyn for now. Rep eat a chest x-ray in the a.m. We will increase his activity as tolerated. Titrate down the FiO2 as tolerated. We'll continue to follow and make further recommendations based on his clinical status. I, the cosigning physician, performed a history & physical examination of the patient. Lungs sounds with bilateral scattered rhonchi right greater than left. Maintaining good O2 saturations in the 90s on 2 L/m per nasal. I discussed the assessment and plan of care with my nurse practitioner, Crissy Bland. I attest to the above note as dictated by her.
[2019-04-02] MEDS: predniSONE 20 MG TAB PO SCH (17:29)
[2019-04-02 17:31] LABS: Glucose,Whole Blood 146 mg/dL (75-99)
[2019-04-02 20:36] LABS: Glucose,Whole Blood 103 mg/dL (75-99)
[2019-04-02] MEDS: MONTELUKAST 10 MG TAB PO SCH (20:55)
[2019-04-02] MEDS: TEMAZEPAM 15 MG CAP PO PRN (21:04)
[2019-04-03] MEDS: IPRATROPIUM-ALBUTEROL 3 ML NEB INHALATION PRN (02:56)
[2019-04-03] MEDS: GABAPENTIN 400 MG CAP PO SCH ×3 (05:24→16:45)
[2019-04-03 07:19] LABS: Glucose,Whole Blood 102 mg/dL (75-99)
[2019-04-03] MEDS: SYMBICORT 160-4.5 MCG INHALER INHALATION SCH ×2 (07:37→20:17)
[2019-04-03] MEDS: IPRATROPIUM-ALBUTEROL 3 ML NEB INHALATION SCH ×4 (07:37→20:17)
[2019-04-03] MEDS: INSULIN ASPART (NovoLOG) 100 UNIT/ML VIAL SQ SCH ×4 (07:59→20:50)
[2019-04-03] MEDS: HEPARIN SODIUM,PORCINE 5,000 UNIT/ML 1 ML VIAL SQ SCH ×2 (08:05→20:49)
[2019-04-03] MEDS: NICOTINE 14MG/24HR PATCH TRANSDERM SCH (08:14)
[2019-04-03] MEDS: FAMOTIDINE 20 MG TAB PO SCH ×2 (08:14→20:47)
[2019-04-03] MEDS: guaiFENesin SYRUP 100MG/5ML 200 MG/10 ML CUP PO PRN ×2 (08:14→18:05)
[2019-04-03] MEDS: HYDROcodone/APAP 5-325MG 1 EACH TAB PO PRN ×3 (08:14→23:04)
[2019-04-03] MEDS: LISINOPRIL 5 MG TAB PO SCH (08:15)
[2019-04-03] MEDS: ALPRAZolam 0.25 MG TAB PO PRN ×2 (08:15→17:56)
[2019-04-03] MEDS: PIPERACILLIN-TAZOBACTAM 3.375 GM in SODIUM CHLORIDE 0.9% 100 ML IVPB SCH ×3 (08:15→23:06)
[2019-04-03] MEDS: ESCITALOPRAM 5 MG TAB PO SCH (08:20)
--- NOTE | 2019-04-03 09:25 | XR ---
EXAMINATION TYPE: XR chest 2V DATE OF EXAM: 04/03/2019 COMPARISON: Prior chest x-ray 04/01/2019 HISTORY: Pneumonia, COPD TECHNIQUE: Frontal and lateral views of the chest are obtained. FINDINGS: Increased AP diameter of the chest with flattening the hemidiaphragms, strand-like densitie s at the lung bases persists. The abnormal density within the right upper lobe is again noted, there is no pneumothorax or pleural effusion. Heart size is stable. IMPRESSION: There may be some slight interval improvement in aeration in the right upper lobe.
[2019-04-03] MEDS ORDERED: RX INFO: IV CONTRAST WAS GIVEN 1 EACH MISC MISCELLANE PRN (10:07)
--- NOTE | 2019-04-03 11:52 | CT ---
EXAMINATION TYPE: CT chest w con DATE OF EXAM: 04/03/2019 COMPARISON: Chest x-ray dated 04/03/[address] of the chest dated 01/21/2017 HISTORY: RUL opacity CT DLP: 563 mGycm Automated exposure control for dose reduction was used. CONTRAST: CT scan of the chest is performed with IV Contrast, patient injected with 100 mL of Isovue 300. FINDINGS: LUNGS: Right upper lobe cavitary area measuring up to 7.0 cm with internal fluid and septations. Area demonstrates peripheral wall enhancement with anterior, lateral and inferior intralobular septal thi ckening throughout the right upper lobe. Moderate emphysema is seen throughout the right lungs predom inance in the lung apices. There are additional peripheral groundglass opacities are seen scattered t hroughout the bilateral lungs. There is a small left pleural effusion. No pneumothorax. No evidence o f extrapleural extension. MEDIASTINUM: There are no greater than 1 cm hilar or mediastinal lymph nodes. No pericardial effusi on is seen. OTHER: No additional significant abnormality is seen. IMPRESSION: Right upper lobe cavitation with surrounding pneumonitis favored to represent infectious process such as bacterial or fungal etiologies. Additional differential include inflammatory noneffective granulo ma or cavitary malignancy. Follow-up until resolution and consider repeat exam in 3-4 weeks after rusty atment.
[2019-04-03 12:19] LABS: Glucose,Whole Blood 99 mg/dL (75-99)
--- NOTE | 2019-04-03 15:50 | P.PN ---
Subjective Progress Note Date: 04/03/19 Principal diagnosis: Right upper lobe pneumonia with dyspnea The patient is seen today 04/03/2019 in follow-up on the regular medical floor. He is currently resting comfortably in bed. Improved today as compared to yesterday. On 2 L nasal cannula to maintain good O2 saturations in the mid 90s. He's been afebrile. Hemodynamically stable. Chest x-ray revealed slight interval improvement in the right upper lobe with the continued abnormal density. Sputum culture was positive for Aspergillus fumigatus and Aspergillus fumigatus ALLERGY IgE level was high at 4.19. Computed tomography scan of the chest revealed a right upper lobe cavitation with surrounding pneumonitis favored to present infectious process such as bacterial or fungal etiologies. He is currently on Zosyn. DuoNeb inhalations, Symbicort, Singulair, oral prednisone. NicoDerm patch is in place. Objective - Vital Signs Vital signs: Vital Signs Temp 98.2 F 04/03/19 12:09 Pulse 92 04/03/19 12:09 Resp 18 04/03/19 12:09 BP 137/74 04/03/19 12:09 Pulse Ox 95 04/03/19 12:32 Intake & Output 04/02/19 04/03/19 04/03/19 18:59 06:59 18:59 Intake Total 700 Balance 700 Intake: Oral 700 Other: Voiding Method Urinal Urinal Incontinent # Voids 1 2 3 # Bowel Movements 1 0 - Exam GENERAL EXAM: Alert, pleasant 58 year old gentleman, comfortable in no apparent distress. On 2 L nasal cannula. HEAD: Normocephalic. EYES: Right eye prosthetic. NOSE: Clear with pink turbinates. THROAT: No erythema or exudates. NECK: No masses, no JVD. CHEST: No chest wall deformity. LUNGS: Equal air entry with scattered rhonchi more so on the right lung. CVS: S1 and S2 normal with no audible murmur, regular rhythm. ABDOMEN: No hepatosplenomegaly, normal bowel sounds, no guarding or rigidity. SPINE: No scoliosis or deformity SKIN: No rashes CENTRAL NERVOUS SYSTEM: No focal deficits, tone is normal in all 4 extremities. EXTREMITIES: There is no peripheral edema. No clubbing, no cyanosis. Peripheral pulses are intact. - Labs CBC & Chem 7: 04/02/19 09:16 04/02/19 09:16 Labs: Abnormal Lab Results - Last 24 Hours (Table) 04/02/19 04/02/19 04/03/19 Range/Units 17:00 20:20 06:50 POC Glucose (mg/dL) 146 H 103 H 102 H (75-99) mg/dL Microbiology - Last 24 Hours (Table) 03/31/19 15:10 Gram Stain - Preliminary Sputum Sputum Culture - Preliminary Aspergillus fumigatus Gram Neg Bacilli 03/31/19 01:55 Blood Culture - Preliminary Blood No Growth after 72 hours Assessment and Plan Assessment: Impression: 1 right upper lobe pneumonia with extensive right upper lobe consolidation secondary to Aspergillus species, Aspergillus fumigatus IgE level high at 4.19. Computed tomography scan of the chest reveals a cavitary lesion in the right upper lobe suspicious for fungal infection. 2 acute hypoxic respiratory failure secondary to above 3 acute COPD exacerbation secondary to above. The patient has severe COPD with an FEV1 of 36% of predicted at baseline based on a previous spirometry. 4 chronic smoking both tobacco and marijuana 5 history of coronary artery disease with previous [place] 6 history of basal being the hemorrhage/CVA 7 diabetes mellitus type 2 8 chronic pain syndrome 9 acid reflux Plan: The patient was seen and evaluated by Dr. Garcia. Chest x-ray CAT scan of the chest were reviewed. We were going to add Sporanox however that is quite e xpensive. Trying to obtain itraconazole 200 mg daily for 4 weeks. The patient could be discharged home. If these are not covered we'll consult infectious disease for further recommendations. We'll continue to follow and make further recommendations based on his clinical status. I, the cosigning physician, performed a history & physical examination of the patient. Lungs sounds with bilateral scattered rhonchi right greater than left. Maintaining good O2 saturations in the 90s on 2 L/m per nasal. I discussed the assessment and plan of care with my nurse practitioner, Crissy Bland. I attest to the above note as dictated by her.
--- NOTE | 2019-04-03 16:29 | P.PN ---
Subjective Progress Note Date: 04/03/19 Principal diagnosis: Is a 58-year-old male patient presented with a massive right upper lobe pneumonia and shortness of breath. This patient is known to us. The patient was followed up in our office in the past several he was lost to follow-up. He is known to have COPD, which has been severe with an FEV1 of 36% of predicted,, coronary artery disease and previous history of CVA. He was then burst department on 03/14/2019 for lower extremity swelling and pain the patient was also complaining of chronic shortness of breath. In the emergency department, the patient had a chest x-ray that showed some early pneumonic changes in the right upper lobe. However, the main focus was his lower extremity pain. He was given Doppler of the lower extremities do not to be negative. The patient was advised to elevate his legs and follow-up with his primary care physician. The patient came into the ED on 03/30/2019 with worsening in his breathing. He apparently was progressively getting worse and he had increased cough and no significant sputum production. He had chills no documented fever. He was smoking cigarettes on a daily basis as well as marijuana. In the ED, chest x- ray was done that showed an extensive right upper lobe consolidation. Had a temperature of 99.1. He was slightly tachycardic with a heart rate of 108. No significant hypotension. White cell count was at 17.3. No altered mentation. No hemoptysis. No pleurisy. He was given Rocephin and he will admit to the hospital and pulmonary consultation was requested. Today's evaluation of a 03/31/2019 2019 the patient is feeling essentially the same, slightly better compared to yesterday and he tells that he had a good night sleep. Cough is less congested. He hasn't been able to give us any sputum. He is on broad-spectrum antibiotic. Hemodynamically stable. Afebrile for now. Still sleepy and lethargic. No other significant events overnight. The follow-up chest x-ray is to follow today. 04/01/2019 Patient is sitting up in bed in no acute distress. Patient is currently on 2-3 L of oxygen via nasal cannula. Patient states that his shortness of breath has improved although still has a cough. Patient denies any chest pain or palpitations at this time. Patient is afebrile. Patient denies any nausea or vomiting and tolerating diet well. Follow-up chest x-ray this morning shows improving right upper lobe consolidation which is suggestive of improving pneumonia. Pulmonary is following. Cultures thus far are negative and pending. Patient is currently on IV antibiotics in the form of Zosyn. Guarded prognosis 04/02/2019 Patient is lying in the bed in no acute distress. Patient is currently on 2 L of oxygen via nasal cannula and states that he wears this at home and is O2 dependent. Patient states that his shortness of breath is about the same or slightly improved. Patient is currently being switched over to oral prednisone. Patient is currently still on IV antibiotics at this time and we'll continue to monitor closely. Sputum culture shows gram-negative bacilli aspergillus species. Pulmonary is following. Patient denies any chest pain or palpitations at this time. Patient is tolerating diet with no signs of nausea or vomiting. Patient states that he was having some difficulty with ambulation due to his shortness of breath earlier today but has resolved. Guarded prognosis. 04/03/2019 Patient is sitting up in bed in no acute distress and is being closely monitored. Patient is stating that his shortness of breath has slightly improved. Patient is stating that he is having generalized pain with coughing which is making his chest hurt. Patient is O2 dependent on 2 L and is currently saturating at 95% on 2 L. Pulmonary is following closely. Patient is afebrile. Patient was switched to oral steroids yesterday and tolerating well. Computed tomography scan of the chest done today showed A right upper lobe cavitation with surrounding pneumonitis. Patient denies any chest pain or palpitations at this time. Patient denies any nausea or vomiting and tolerating diet. Guarded prognosis. Objective - Vital Signs Vital signs: Vital Signs Temp 98.2 F 04/03/19 12:09 Pulse 90 04/03/19 16:08 Resp 18 04/03/19 12:09 BP 137/74 04/03/19 12:09 Pulse Ox 95 04/03/19 12:32 Intake & Output 04/02/19 04/03/19 04/03/19 18:59 06:59 18:59 Intake Total 700 Balance 700 Intake: Oral 700 Other: Voiding Method Urinal Urinal Incontinent # Voids 1 2 3 # Bowel Movements 1 0 - Exam Gen: This is a 58-year-old male sitting up in bed in no acute distress. Vital signs are stable. Patient is on 2 L nasal cannula and oxygen saturation is 95%. HEENT: Head is atraumatic, normocephalic. Pupil on the right is round and reactive. 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 Sclerae is anicteric. NECK: Supple. No JVD. No lymphadenopathy. No thyromegaly. LUNGS: Breath sounds diminished bilaterally with expiratory wheezing noted on exam. The wheezing has slightly improved from yesterday. A few scattered rhonchi and crackles noted as well. No intercostal retractions. HEART: Regular rate and rhythm. No murmur. ABDOMEN: Soft. Bowel sounds are present. No masses. No tenderness. EXTREMITIES: No pedal edema. No calf tenderness. NEUROLOGICAL: Patient is awake, alert and oriented x3. Cranial nerves 2 through 12 are grossly intact. SKIN: No rashes or lesions noted. - Labs CBC & Chem 7: 04/02/19 09:16 04/02/19 09:16 Labs: Abnormal Lab Results - Last 24 Hours (Table) 04/02/19 04/02/19 04/03/19 Range/Units 17:00 20:20 06:50 POC Glucose (mg/dL) 146 H 103 H 102 H (75-99) mg/dL Microbiology - Last 24 Hours (Table) 03/31/19 15:10 Gram Stain - Preliminary Sputum Sputum Culture - Preliminary Aspergillus fumigatus Gram Neg Bacilli 03/31/19 01:55 Blood Culture - Preliminary Blood No Growth after 72 hours Assessment and Plan Assessment: 1 right upper lobe pneumonia with extensive right upper lobe consolidation; CT shows right upper lobe cavitation with surrounding pneumonitis. Culture showed Aspergillus with gram-negative. Pulmonary is following closely. 2 acute hypoxic respiratory failure secondary to above 3 acute COPD exacerbation secondary to above. The patient has severe COPD with an FEV1 of 36% of predicted at baseline based on a previous spirometry. 4 chronic smoking both tobacco and marijuana 5 history of coronary artery disease with previous [place] 6 history of basal being the hemorrhage/CVA 7 diabetes mellitus type 2 8 chronic pain syndrome 9 acid reflux Plan Clinically the patient is feeling slightly better compared to yesterday. We will continue to monitor. Patient will continue on bronchodilators as well as steroids at this time. Pulmonary is following. Per pulmonary recommendations we are trying to obtain insurance approval on Sporanox or Itraconazole. Continue same antibiotic coverage and will continue to follow. Guarded prognosis. Further recommendations to follow. Probable discharge in 24 hours.
[2019-04-03] MEDS: predniSONE 20 MG TAB PO SCH (16:45)
[2019-04-03 17:10] LABS: Glucose,Whole Blood 100 mg/dL (75-99)
[2019-04-03] MEDS: ACETAMINOPHEN TAB 325 MG TAB PO PRN (18:04)
[2019-04-03] MEDS: ITRACONAZOLE 100 MG CAP PO SCH (20:46)
[2019-04-03] MEDS: MONTELUKAST 10 MG TAB PO SCH (20:47)
[2019-04-03 20:50] LABS: Glucose,Whole Blood 126 mg/dL (75-99)
[2019-04-03] MEDS: TEMAZEPAM 15 MG CAP PO PRN (20:56)
[2019-04-04] MEDS: GABAPENTIN 400 MG CAP PO SCH ×3 (00:25→11:33)
[2019-04-04] MEDS: IPRATROPIUM-ALBUTEROL 3 ML NEB INHALATION PRN ×2 (01:45→04:39)
[2019-04-04] MEDS ORDERED: IPRATROPIUM-ALBUTEROL 3 ML NEB ONE (01:53)
[2019-04-04] MEDS: guaiFENesin SYRUP 100MG/5ML 200 MG/10 ML CUP PO PRN ×2 (02:19→09:14)
[2019-04-04] MEDS: ACETAMINOPHEN TAB 325 MG TAB PO PRN (02:19)
[2019-04-04 06:26] VITALS: BP 110/71; RESP 18; TEMP 97.4
[2019-04-04 07:19] LABS: Glucose,Whole Blood 106 mg/dL (75-99)
[2019-04-04] MEDS: INSULIN ASPART (NovoLOG) 100 UNIT/ML VIAL SQ SCH ×2 (07:26→12:58)
[2019-04-04] MEDS: SYMBICORT 160-4.5 MCG INHALER INHALATION SCH (08:09)
[2019-04-04] MEDS: IPRATROPIUM-ALBUTEROL 3 ML NEB INHALATION SCH ×2 (08:09→13:50)
[2019-04-04] MEDS: FAMOTIDINE 20 MG TAB PO SCH (08:50)
[2019-04-04] MEDS: NICOTINE 14MG/24HR PATCH TRANSDERM SCH (08:50)
[2019-04-04] MEDS: ESCITALOPRAM 5 MG TAB PO SCH (08:51)
[2019-04-04] MEDS: PIPERACILLIN-TAZOBACTAM 3.375 GM in SODIUM CHLORIDE 0.9% 100 ML IVPB SCH (08:51)
[2019-04-04] MEDS: HEPARIN SODIUM,PORCINE 5,000 UNIT/ML 1 ML VIAL SQ SCH (08:51)
[2019-04-04] MEDS: LISINOPRIL 5 MG TAB PO SCH (08:52)
[2019-04-04] MEDS: HYDROcodone/APAP 5-325MG 1 EACH TAB PO PRN (09:14)
[2019-04-04] MEDS: ITRACONAZOLE 100 MG CAP PO SCH (09:48)
--- NOTE | 2019-04-04 10:36 | P.PN ---
Subjective Progress Note Date: 04/04/19 Principal diagnosis: Right upper lobe pneumonia with dyspnea Patient is seen today 04/04/2019 in follow-up on the regular medical floor. He is awake and alert in no acute distress. He is breathing is nearly back to his baseline. Maintaining O2 saturations in the 90s on 3 L/m per nasal cannula. Afebrile. Hemodynamically stable. Sputum culture is positive for Aspergillus f umigatus. He has been initiated on Sporanox. Continued on Zosyn. Computed tomography scan yesterday revealed a right upper lobe cavitation with surrounding pneumonitis favored to represent fungal etiologies. Objective - Vital Signs Vital signs: Vital Signs Temp 97.4 F L 04/04/19 04:45 Pulse 88 04/04/19 08:27 Resp 18 04/04/19 04:45 BP 110/71 04/04/19 04:45 Pulse Ox 96 04/04/19 04:45 Intake & Output 04/03/19 04/04/19 04/04/19 18:59 06:59 18:59 Intake Total 400 Output Total 300 Balance -300 400 Intake: Oral 400 Output: Urine 300 Other: Voiding Method Urinal Urinal # Voids 1 2 # Bowel Movements 1 - Exam GENERAL EXAM: Alert, pleasant 58 year old gentleman, comfortable in no apparent distress. On 3 L nasal cannula. HEAD: Normocephalic. EYES: Right eye prosthetic. NOSE: Clear with pink turbinates. THROAT: No erythema or exudates. NECK: No masses, no JVD. CHEST: No chest wall deformity. LUNGS: Equal air entry with scattered rhonchi more so on the right lung. CVS: S1 and S2 normal with no audible murmur, regular rhythm. ABDOMEN: No hepatosplenomegaly, normal bowel sounds, no guarding or rigidity. SPINE: No scoliosis or deformity SKIN: No rashes CENTRAL NERVOUS SYSTEM: No focal deficits, tone is normal in all 4 extremities. EXTREMITIES: There is no peripheral edema. No clubbing, no cyanosis. Kathi pheral pulses are intact. - Labs CBC & Chem 7: 04/02/19 09:16 04/02/19 09:16 Labs: Abnormal Lab Results - Last 24 Hours (Table) 04/03/19 04/03/19 04/04/19 Range/Units 17:00 20:49 07:14 POC Glucose (mg/dL) 100 H 126 H 106 H (75-99) mg/dL Microbiology - Last 24 Hours (Table) 03/31/19 01:55 Blood Culture - Preliminary Blood No Growth after 96 hours 03/31/19 15:10 Gram Stain - Preliminary Sputum Sputum Culture - Preliminary Aspergillus fumigatus Gram Neg Bacilli Assessment and Plan Assessment: Impression: 1 right upper lobe pneumonia with extensive right upper lobe consolidation secondary to Aspergillus species, Aspergillus fumigatus IgE level high at 4.19. Computed tomography scan of the chest reveals a cavitary lesion in the right upper lobe suspicious for fungal infection. 2 acute hypoxic respiratory failure secondary to above 3 acute COPD exacerbation secondary to above. The patient has severe COPD with an FEV1 of 36% of predicted at baseline based on a previous spirometry. 4 chronic smoking both tobacco and marijuana 5 history of coronary artery disease with previous [place] 6 history of basal being the hemorrhage/CVA 7 diabetes mellitus type 2 8 chronic pain syndrome 9 acid reflux Plan: The patient was seen and evaluated by Dr. Garcia. He is cleared for discharge from the pulmonary standpoint. Continue 4 weeks of Sporanox. Complete a 7 day course of Augmentin. Continue Symbicort, DuoNeb inhalations. Follow-up in our office in 1-2 weeks' time. We'll repeat a chest x-ray then. He is encouraged to call sooner with any recurrence of symptoms or other questions or concerns. I, the cosigning physician, performed a history & physical examination of the patient. Lungs sounds with bilateral scattered rhonchi right greater than left. Maintaining good O2 saturations in the 90s on 3 L/m per nasal. I discussed the assessment and plan of care with my nurse practitioner, Crissy Bland. I attest to the above note as dictated by her.
[2019-04-04] MEDS: ALPRAZolam 0.25 MG TAB PO PRN (11:33)
[2019-04-04 12:11] LABS: Glucose,Whole Blood 103 mg/dL (75-99)
[2019-04-04 13:51] VITALS: PULSE 96
--- NOTE | 2019-04-04 14:13 | P.DS ---
Providers Date of admission: 03/30/19 11:09 Attending physician: David Chavez MD Consults: 03/30/19 11:09 Consult Physician Routine Consulting Provider: Willie Garcia Consult Reason/Comments: COPD, pneumonia Do you want consulting provider notified?: Yes Primary care physician: [facility] Course: 58-year-old male patient presented with a massive right upper lobe pneumonia and shortness of breath. This patient is known to us. The patient was followed up in our office in the past several he was lost to follow-up. He is known to have COPD, which has been severe with an FEV1 of 36% of predicted,, coronary artery disease and previous history of CVA. He was then burst department on 03/14/2019 for lower extremity swelling and pain the patient was also complaining of chronic shortness of breath. In the emergency department, the patient had a chest x-ray that showed some early pneumonic changes in the right upper lobe. However, the main focus was his lower extremity pain. He was given Doppler of the lower extremities do not to be negative. The patient was advised to elevate his legs and follow-up with his primary care physician. The patient came into the ED on 03/30/2019 with worsening in his breathing. He apparently was progressively getting worse and he had increased cough and no significant sputum production. He had chills no documented fever. He was smoking cigarettes on a daily basis as well as marijuana. In the ED, chest x-ray was done that showed an extensive right upper lobe consolidation. Had a temperature of 99.1. He was slightly tachycardic with a heart rate of 108. No significant hypotension. White cell count was at 17.3. No altered mentation. No hemoptysis. No pleurisy. He was given Rocephin and he will admit to the hospital and pulmonary consultation was requested. Today's evaluation of a 03/31/2019 2019 the patient is feeling essentially the same, slightly better compared to yesterday and he tells that he had a good night sleep. Cough is less congested. He hasn't been able to give us any sputum. He is on broad-spectrum antibiotic. Hemodynamically stable. Afebrile for now. Still sleepy and lethargic. No other significant events overnight. The follow-up chest x-ray is to follow today. 04/01/2019 Patient is sitting up in bed in no acute distress. Patient is currently on 2-3 L of oxygen via nasal cannula. Patient states that his shortness of breath has improved although still has a cough. Patient denies any chest pain or palpitations at this time. Patient is afebrile. Patient denies any nausea or vomiting and tolerating diet well. Follow-up chest x-ray this morning shows improving right upper lobe consolidation which is suggestive of improving pneumonia. Pulmonary is following. Cultures thus far are negative and pending. Patient is currently on IV antibiotics in the form of Zosyn. Guarded prognosis 04/02/2019 Patient is lying in the bed in no acute distress. Patient is currently on 2 L of oxygen via nasal cannula and states that he wears this at home and is O2 dependent. Patient states that his shortness of breath is about the same or slightly improved. Patient is currently being switched over to oral prednisone. Patient is currently still on IV antibiotics at this time and we'll continue to monitor closely. Sputum culture shows gram-negative bacilli aspergillus species. Pulmonary is following. Patient denies any chest pain or palpitations at this time. Patient is tolerating diet with no signs of nausea or vomiting. Patient states that he was having some difficulty with ambulation due to his shortness of breath earlier today but has resolved. Guarded prognosis. 04/03/2019 Patient is sitting up in bed in no acute distress and is being closely monitored. Patient is stating that his shortness of breath has slightly improved. Patient is stating that he is having generalized pain with coughing which is making his chest hurt. Patient is O2 dependent on 2 L and is currently saturating at 95% on 2 L. Pulmonary is following closely. Patient is afebrile. Patient was switched to oral steroids yesterday and tolerating well. Computed tomography scan of the chest done today showed A right upper lobe cavitation with surrounding pneumonitis. Patient denies any chest pain or palpitations at this time. Patient denies any nausea or vomiting and tolerating diet. Guarded prognosis. 04/04/2019 Patient appears to have cavitation and fungus ball because of which patient will be discharged on steroids and itraconazole for about a month patient is also being treated for pneumonia. And patient will be discharged on Augmentin as recommended by pulmonology patient's IgG levels are elevated as well although patient does not appear to have disseminated aspergillosis PHYSICAL EXAMINATION: GENERAL: The patient is alert and oriented x3, not in any acute distress. Well developed, well nourished. HEENT: Pupils are round and equally reacting to light. EOMI. No scleral icterus. No conjunctival pallor. Normocephalic, atraumatic. No pharyngeal erythema. No thyromegaly. CARDIOVASCULAR: S1 and S2 present. No murmurs, rubs, or gallops. PULMONARY: Decreased breath sounds significantly improved wheezing ABDOMEN: Soft, nontender, nondistended, normoactive bowel sounds. No palpable organomegaly. MUSCULOSKELETAL: No joint swelling or deformity. EXTREMITIES: No cyanosis, clubbing, or pedal edema. NEUROLOGICAL: Gross neurological examination did not reveal any focal deficits. SKIN: No rashes. Assessment and Plan Assessment: 1 right upper lobe pneumonia with extensive right upper lobe consolidation; CT shows right upper lobe cavitation with surrounding pneumonitis. Culture showed Aspergillus with gram-negative. appears to have fungus ball and aspergillosis, does not have any disseminated aspergillosis patient will be discharged on itraconazole and steroids along with Augmentin 2 acute hypoxic respiratory failure secondary to above 3 acute COPD exacerbation secondary to above. The patient has severe COPD with an FEV1 of 36% of predicted at baseline based on a previous spirometry. 4 chronic smoking both tobacco and marijuana 5 history of coronary artery disease with previous [place] 6 history of basal being the hemorrhage/CVA 7 diabetes mellitus type 2 8 chronic pain syndrome 9 acid reflux Patient Condition at Discharge: Fair Plan - Discharge Summary Discharge Rx Participant: Yes New Discharge Prescriptions: New Amoxic-Pot Clav 875-125Mg [Augmentin 875-125] 1 tab PO Q12HR #14 tablet Itraconazole [Sporanox] 200 mg PO DAILY #30 cap predniSONE 10 mg PO DAILY #30 tab Continue Lisinopril [Zestril] 5 mg PO DAILY Escitalopram [Lexapro] 5 mg PO DAILY Melatonin 5 mg PO HS PRN PRN Reason: Insomnia Nicotine 14Mg/24Hr Patch [Habitrol] 1 patch TRANSDERM DAILY #30 patch Montelukast [Singulair] 10 mg PO HS #30 tab Ipratropium-Albuterol Nebulize [Duoneb 0.5 mg-3 mg/3 ml Soln] 3 ml INHALATION RT-QID PRN #60 ampul.neb PRN Reason: Shortness Of Breath Budesonide/Formoterol Fumarate [Symbicort 160-4.5 Mcg Inhaler] 2 puff INHALATION RT-BID #1 hfa.aer.ad Famotidine [Pepcid AC] 10 mg PO BID Changed Gabapentin 400 mg PO Q6H PRN #20 tablet PRN Reason: Pain Discharge Medication List Escitalopram [Lexapro] 5 mg PO DAILY 11/14/18 [History] Lisinopril [Zestril] 5 mg PO DAILY 11/14/18 [History] Melatonin 5 mg PO HS PRN 11/14/18 [History] Montelukast [Singulair] 10 mg PO HS #30 tab 11/17/18 [Rx] Nicotine 14Mg/24Hr Patch [Habitrol] 1 patch TRANSDERM DAILY #30 patch 11/17/18 [Rx] Budesonide/Formoterol Fumarate [Symbicort 160-4.5 Mcg Inhaler] 2 puff INHALATION RT-BID #1 hfa.aer.ad 12/15/18 [Rx] Ipratropium-Albuterol Nebulize [Duoneb 0.5 mg-3 mg/3 ml Soln] 3 ml INHALATION RT-QID PRN #60 ampul.neb 12/15/18 [Rx] Famotidine [Pepcid AC] 10 mg PO BID 03/30/19 [History] Amoxic-Pot Clav 875-125Mg [Augmentin 875-125] 1 tab PO Q12HR #14 tablet 04/04/19 [Rx] Gabapentin 400 mg PO Q6H PRN #20 tablet 04/04/19 [Rx] Itraconazole [Sporanox] 200 mg PO DAILY #30 cap 04/04/19 [Rx] predniSONE 10 mg PO DAILY #30 tab 04/04/19 [Rx] Follow up Appointment(s)/Referral(s): Urszula Carrasco MD [Primary Care Provider] - 1-2 days (Please call Saturday and schedule appointment) Willie Garcia MD [STAFF PHYSICIAN] - 1 Week (Please call Saturday and schedule appointment. ) Patient Instructions/Handouts: Pneumonia ([place]) Activity/Diet/Wound Care/Special Instructions: No smoking, cessation information provided. Up with walker, fall precautions Home oxygen as before Regular diet. Medication supply through Wednesday, pharmacy will have remaining portion of prescription on Saturday. 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
--- NOTE | 2019-04-07 15:30 | CDI ---
Documentation Clarification Form Date: 04/07/2019 From: Toshia Duarte Phone: If questions call Shayy Banuelos @ [phone], Hours-8:30 am & 5 pm M- Kiara Admit Date: 03/30/2019 11:09:00 AM Patient Name: Junior Mallory Visit Number: [id number] Discharge Date: 04/04/2019 2:08:00 PM ATTENTION: The Clinical Documentation Specialists (CDI) and [facility] Coding Staff appreciate your assistance in clarifying documentation. Please respond to the clarification below the line at the bottom and electronically sign. The CDI & [facility] Coding staff will review the response and follow-up if needed. Please note: Queries are made part of the Legal Health Record. If you have any questions, please contact the author of this message via ITS. Dr. Mitchell Guzmán The diagnosis sepsis was documented in the record (ED Note & H&P), but is not consistently noted in subsequent documentation. History/Risk Factors: gram negative pneumonia, Aspergillosis pneumonia Clinical Indicators: lactic acid sepsis flx- yes on 03/31, lactic acid on: 03/30- 1.3, on 03/31- 2.4, neutrophil-14.5, WBC-17.3, pulse-108, RR-22, O2-94 Treatment: IV Zosyn & Levaquin, IV steroids, Please clarify if the above diagnosis os sepsis was: Present/active & treated this admission Ruled out Other, please specify Clinically unable to determine present/active & treated this admission MTDD
== END 2019-04-04 14:08 | disposition home or self-care (01) | DRG 871 ==
LOC: EC 08:01 → 4MS4W 11:09
PROVIDERS: ADMIT Internal Medicine; ATTEND Internal Medicine
DX: A41.9 Sepsis, unspecified organism (principal); J15.6 Pneumonia due to other Gram-negative bacteria; J96.21 Acute and chronic respiratory failure with hypoxia; J96.02 Acute respiratory failure with hypercapnia; B44.9 Aspergillosis, unspecified; J44.0 Chronic obstructive pulmonary disease with (acute) lower respiratory infection; J44.1 Chronic obstructive pulmonary disease with (acute) exacerbation; E87.1 Hypo-osmolality and hyponatremia; E11.9 Type 2 diabetes mellitus without complications; I10 Essential (primary) hypertension; F32.9 Major depressive disorder, single episode, unspecified; F41.0 Panic disorder [episodic paroxysmal anxiety]; K21.9 Gastro-esophageal reflux disease without esophagitis; G89.4 Chronic pain syndrome; I25.10 Atherosclerotic heart disease of native coronary artery without angina pectoris; M19.90 Unspecified osteoarthritis, unspecified site; I25.2 Old myocardial infarction; F17.210 Nicotine dependence, cigarettes, uncomplicated; Z71.6 Tobacco abuse counseling; Z99.81 Dependence on supplemental oxygen; Z79.51 Long term (current) use of inhaled steroids; Z79.899 Other long term (current) drug therapy; Z86.73 Personal history of transient ischemic attack (TIA), and cerebral infarction without residual deficits; Z86.19 Personal history of other infectious and parasitic diseases; Z87.81 Personal history of (healed) traumatic fracture; Z87.01 Personal history of pneumonia (recurrent); Z87.2 Personal history of diseases of the skin and subcutaneous tissue; Z90.01 Acquired absence of eye; Z91.010 Allergy to peanuts; Z80.51 Family history of malignant neoplasm of kidney; Z82.5 Family history of asthma and other chronic lower respiratory diseases; Z80.8 Family history of malignant neoplasm of other organs or systems
CPT/HCPCS: 36415; 71046; 71260; 80048; 80053; 81003; 83605; 83735; 83880; 84484; 85025; 85610; 85730; 86003; 87040; 87070; 87077; 87086; 87186; 87205; 87449; 93005; 94640; 94760; 96361; 96374; 96375; 99285

== ENCOUNTER 2019-04-06 16:58 | Inpatient (IN) | payer OTHER ==
[2019-04-06] MEDS ORDERED: methylPREDNISolone SOD SUCCI 125 MG/2 ML VIAL IV STA (17:21)
[2019-04-06] MEDS ORDERED: ALBUTEROL NEBULIZED 2.5 MG/3 ML INHALATION STA (17:21)
--- NOTE | 2019-04-06 17:25 | ED ---
General Adult HPI - General Chief complaint: Shortness of Breath Stated complaint: CLEMENCIA Time Seen by Provider: 04/06/19 17:00 Source: EMS, RN notes reviewed Mode of arrival: EMS Limitations: no limitations - History of Present Illness Initial comments: This a 58-year-old male with a past medical history for COPD. Patient sent 2 L of oxygen at home at all times. Patient states lately he has been coughing quite a bit more and his difficulty breathing got considerably worse last night and continues today. Patient denies any chest pain except when he is coughing. Patient denies any fever or chills. Patient denies abdominal pain patient denies nausea vomiting diarrhea. Patient denies headache patient denies numbness weakness. Patient states he is trying to quit smoking and is on a nicotine patch. Patient denies any leg pain but does state he has slight edema bilaterally - Related Data Home Medications Medication Instructions Recorded Confirmed Escitalopram [Lexapro] 5 mg PO DAILY 11/14/18 04/06/19 Lisinopril [Zestril] 5 mg PO DAILY 11/14/18 04/06/19 Melatonin 5 mg PO HS PRN 11/14/18 04/06/19 Famotidine [Pepcid AC] 10 mg PO BID 03/30/19 04/06/19 predniSONE See Taper PO DAILY 04/06/19 04/06/19 Previous Rx's Medication Instructions Recorded Montelukast [Singulair] 10 mg PO HS #30 tab 11/17/18 Nicotine 14Mg/24Hr Patch [Habitrol] 1 patch TRANSDERM DAILY #30 patch 11/17/18 Budesonide/Formoterol Fumarate 2 puff INHALATION RT-BID #1 12/15/18 [Symbicort 160-4.5 Mcg Inhaler] hfa.aer.ad Ipratropium-Albuterol Nebulize 3 ml INHALATION RT-QID PRN #60 12/15/18 [Duoneb 0.5 mg-3 mg/3 ml Soln] ampul.neb Amoxic-Pot Clav 875-125Mg 1 tab PO Q12HR #14 tablet 04/04/19 [Augmentin 875-125] Gabapentin 400 mg PO Q6H PRN #20 tablet 04/04/19 Itraconazole [Sporanox] 200 mg PO DAILY #30 cap 04/04/19 Allergies Allergy/AdvReac Type Severity Reaction Status Date / Time peanut [Peanut Butter] AdvReac Nausea & Verified 04/06/19 18:03 Vomiting & Diarrhea Review of Systems ROS Statement: Those systems with pertinent positive or pertinent negative responses have been documented in the HPI. ROS Other: All systems not noted in ROS Statement are negative. Past Medical History Past Medical History: Asthma, Chest Pain / Angina, COPD, CVA/TIA, Hypertension, Myocardial Infarction ([place]), Pneumonia, Respiratory Disorder, Skin Disorder Additional Past Medical History / Comment(s): COPD with an FEV1 of 36% of predicted based on his spirometry from 2017, chronic hypoxic respiratory failure, history of CVA, diabetes mellitus type 2, chronic smoker, chronic pain syndrome, hypertension, acid reflux, 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 Past Anesthesia/Blood Transfusion Reactions: No Reported Reaction Past Psychological History: Depression, Panic Disorder Smoking Status: Current every day smoker Past Alcohol Use History: Occasional Past Drug Use History: Marijuana - Past Family History Mother Family Medical History: Cancer Additional Family Medical History / Comment(s): Pt believes his Mom of Kidney Ca Father Family Medical History: Cancer, COPD, Respiratory Disorder Additional Family Medical History / Comment(s): Melonoma General Exam - General Exam Comments Initial Comments: GENERAL: Patient is well-developed and well-nourished. Patient is nontoxic and well- hydrated and is in moderate distress. ENT: Neck is soft and supple. No significant lymphadenopathy is noted. Oropharynx is clear. Moist mucous membranes. Neck has full range of motion without eliciting any pain. EYES: The sclera were anicteric and conjunctiva were pink and moist. Extraocular movements were intact and pupils were equal round and reactive to light. Eyelids were unremarkable. PULMONARY: Patient has diffuse expiratory wheezing. CARDIOVASCULAR: There is a regular rate and rhythm without any murmurs gallops or rubs. ABDOMEN: Soft and nontender with normal bowel sounds. SKIN: Skin is clear with no lesions or rashes and otherwise unremarkable. NEUROLOGIC: Patient is alert and oriented x3. Cranial nerves II through XII are grossly intact. Motor and sensory are also intact. Normal speech, volume and content. Symmetrical smile. MUSCULOSKELETAL: Normal extremities with adequate strength and full range of motion. 1+ bilateral edema LYMPHATICS: No significant lymphadenopathy is noted PSYCHIATRIC: Normal psychiatric evaluation. Limitations: no limitations Course Vital Signs 04/06/19 04/06/19 04/06/19 16:59 18:03 18:31 Temperature 98.8 F Pulse Rate 107 H 96 100 Respiratory 28 H Rate Blood Pressure 131/70 O2 Sat by Pulse 92 L Oximetry 04/06/19 04/06/19 20:00 20:09 Temperature Pulse Rate 100 113 H Respiratory 22 Rate Blood Pressure 118/83 O2 Sat by Pulse 96 Oximetry Medical Decision Making - Medical Decision Making EKG shows sinus tachycardia at 115 bpm MD interval is on a 34 QRS is 88 QT interval 340 QTC is 470. EKG shows no ST segment elevation or depression or T wave abnormalities are noted. X-ray shows bilateral pneumonia. I gave the patient 2 g of Rocephin. I gave the patient a liter of fluid. Patient received 3 breathing she was to the emergency department along with Solu-Medrol and his breathing did improve slightly. Patient states he did feel better. I spoke with Dr. Guzmán he agreed to admit the patient admitted the patient wrote admitting orders I consult pulmonology. - Lab Data Result diagrams: 04/07/19 07:33 04/07/19 07:33 Lab Results 04/06/19 04/06/19 04/06/19 Range/Units 18:25 18:25 18:25 WBC 14.2 H (3.8-10.6) k/uL RBC 3.97 L (4.30-5.90) m/uL Hgb 13.0 (13.0-17.5) gm/dL Hct 40.0 (39.0-53.0) % MCV 100.6 H D (80.0-100.0) fL MCH 32.7 (25.0-35.0) pg MCHC 32.5 (31.0-37.0) g/dL RDW 14.9 (11.5-15.5) % Plt Count 441 (150-450) k/uL Neutrophils % 83 % Lymphocytes % 8 % Monocytes % 2 % Eosinophils % 6 % Basophils % 0 % Neutrophils # 11.8 H (1.3-7.7) k/uL Lymphocytes # 1.1 (1.0-4.8) k/uL Monocytes # 0.3 (0-1.0) k/uL Eosinophils # 0.9 H (0-0.7) k/uL Basophils # 0.0 (0-0.2) k/uL Macrocytosis Slight PT 9.8 (9.0-12.0) sec INR 0.9 (<1.2) APTT 23.9 (22.0-30.0) sec Sodium 135 L (137-145) mmol/L Potassium 4.0 (3.5-5.1) mmol/L Chloride 96 L (98-107) mmol/L Carbon Dioxide 33 H (22-30) mmol/L Anion Gap 6 mmol/L BUN 22 H (9-20) mg/dL Creatinine 0.58 L (0.66-1.25) mg/dL Est GFR (CKD-EPI)AfAm >90 (>60 ml/min/1.73 sqM) Est GFR (CKD-EPI)NonAf >90 (>60 ml/min/1.73 sqM) Glucose 130 H (74-99) mg/dL Calcium 9.2 (8.4-10.2) mg/dL Magnesium 2.0 (1.6-2.3) mg/dL Total Bilirubin 0.5 (0.2-1.3) mg/dL AST 27 (17-59) U/L ALT 47 (21-72) U/L Alkaline Phosphatase 63 (38-126) U/L Troponin I (0.000-0.034) ng/mL NT-Pro-B Natriuret Pep pg/mL Total Protein 5.6 L (6.3-8.2) g/dL Albumin 3.0 L (3.5-5.0) g/dL 04/06/19 04/06/19 Range/Units 18:25 18:25 WBC (3.8-10.6) k/uL RBC (4.30-5.90) m/uL Hgb (13.0-17.5) gm/dL Hct (39.0-53.0) % MCV (80.0-100.0) fL MCH (25.0-35.0) pg MCHC (31.0-37.0) g/dL RDW (11.5-15.5) % Plt Count (150-450) k/uL Neutrophils % % Lymphocytes % % Monocytes % % Eosinophils % % Basophils % % Neutrophils # (1.3-7.7) k/uL Lymphocytes # (1.0-4.8) k/uL Monocytes # (0-1.0) k/uL Eosinophils # (0-0.7) k/uL Basophils # (0-0.2) k/uL Macrocytosis PT (9.0-12.0) sec INR (<1.2) APTT (22.0-30.0) sec Sodium (137-145) mmol/L Potassium (3.5-5.1) mmol/L Chloride (98-107) mmol/L Carbon Dioxide (22-30) mmol/L Anion Gap mmol/L BUN (9-20) mg/dL Creatinine (0.66-1.25) mg/dL Est GFR (CKD-EPI)AfAm (>60 ml/min/1.73 sqM) Est GFR (CKD-EPI)NonAf (>60 ml/min/1.73 sqM) Glucose (74-99) mg/dL Calcium (8.4-10.2) mg/dL Magnesium (1.6-2.3) mg/dL Total Bilirubin (0.2-1.3) mg/dL AST (17-59) U/L ALT (21-72) U/L Alkaline Phosphatase (38-126) U/L Troponin I <0.012 (0.000-0.034) ng/mL NT-Pro-B Natriuret Pep 151 pg/mL Total Protein (6.3-8.2) g/dL Albumin (3.5-5.0) g/dL Critical Care Time Critical Care Time: Yes Total Critical Care Time: 35 Disposition Clinical Impression: Acute exacerbation of chronic obstructive pulmonary disease (COPD), Pneumonia Disposition: ADMITTED IP TO THIS [facility] Time of Disposition: 19:19
--- NOTE | 2019-04-06 18:00 | XR ---
EXAMINATION TYPE: XR chest 2V DATE OF EXAM: 04/06/2019 COMPARISON: 04/03/2019 HISTORY: Difficulty breathing TECHNIQUE: Frontal and lateral views of the chest are obtained. FINDINGS: Heart is normal. Mediastinum is normal. There is some patchy airspace consolidation in the lateral right upper lobe. There is mild infiltrate at the left lung base. There is no pleural effusi on. Bony thorax is intact. No heart failure. IMPRESSION: Bilateral pneumonia. Pneumonia increased in the right upper lobe compared to last exam. No significant change at the left lung base.
[2019-04-06 18:42] LABS: Basophils % (A) 0 %; Eosinophils # (A) 0.9 k/uL (0-0.7); Eosinophils % (A) 6 %; Lymphocytes # (A) 1.1 k/uL (1.0-4.8); Lymphocytes % (A) 8 %; MCH 32.7 pg (25.0-35.0); MCHC 32.5 g/dL (31.0-37.0); Macrocytosis Slight; Mean Platelet Volume 6.7; Monocytes # (A) 0.3 k/uL (0-1.0); Monocytes % (A) 2 %; Neutrophils # (A) 11.8 k/uL (1.3-7.7); Neutrophils % (A) 83 %; Platelet Count 441 k/uL (150-450); RBC 3.97 m/uL (4.30-5.90); RDW 14.9 % (11.5-15.5); WBC 14.2 k/uL (3.8-10.6)
[2019-04-06 18:50] LABS: MCV 100.6 fL (80.0-100.0)
[2019-04-06 18:52] LABS: INR 0.9 (<1.2); Partial Thromboplastin Time 23.9 sec (22.0-30.0); Prothrombin Time 9.8 sec (9.0-12.0)
[2019-04-06] MEDS ORDERED: BENZONATATE 100 MG CAP PO STA (18:52)
[2019-04-06 18:59] LABS: ALT 47 U/L (21-72); AST 27 U/L (17-59); African American GFR (CKD) >90 (>60 ml/min/1.73 sqM); Alkaline Phosphatase 63 U/L (38-126); Anion Gap 6 mmol/L; Blood Urea Nitrogen 22 mg/dL (9-20); Calcium 9.2 mg/dL (8.4-10.2); Carbon Dioxide 33 mmol/L (22-30); Chloride 96 mmol/L (98-107); Glucose 130 mg/dL (74-99); Sodium 135 mmol/L (137-145); Total Bilirubin 0.5 mg/dL (0.2-1.3); Total Protein 5.6 g/dL (6.3-8.2)
[2019-04-06] MEDS ORDERED: cefTRIAXone IN SWFI 1,000 MG/10 ML SYRINGE IVP STA (19:15)
[2019-04-06] MEDS ORDERED: SODIUM CHLORIDE 0.9% 1,000 ML IV ONE (19:16)
[2019-04-06] MEDS ORDERED: ACETAMINOPHEN TAB 500 MG TAB PO STA (19:18)
[2019-04-06] MEDS ORDERED: AZITHROMYCIN 500 MG in SODIUM CHLORIDE 0.9% 250 ML IVPB STA ×2 (19:22→19:38)
[2019-04-06] MEDS: IPRATROPIUM-ALBUTEROL 3 ML NEB INHALATION PRN ×2 (19:58→23:33)
[2019-04-06] MEDS ORDERED: GABAPENTIN 400 MG CAP PO PRN (21:01)
[2019-04-06 21:29] LABS: Glucose,Whole Blood 315 mg/dL (75-99)
[2019-04-06] MEDS: MELATONIN 5 MG TABLET PO PRN (22:09)
[2019-04-06] MEDS: HYDROcodone/APAP 5-325MG 1 EACH TAB PO PRN (22:09)
[2019-04-06] MEDS: FAMOTIDINE 20 MG TAB PO SCH (22:10)
[2019-04-06] MEDS: SODIUM CHLORIDE 0.9% 1,000 ML IV SCH (22:10)
[2019-04-06] MEDS: MONTELUKAST 10 MG TAB PO SCH (22:10)
[2019-04-06] MEDS: INSULIN ASPART (NovoLOG) 100 UNIT/ML VIAL SQ SCH (22:10)
[2019-04-06] MEDS: methylPREDNISolone SOD SUCCI 125 MG/2 ML VIAL IV SCH (23:21)
[2019-04-06] MEDS: guaiFENesin-DM 100-10MG/5ML 10 ML CUP PO PRN (23:21)
[2019-04-07 02:47] LABS: Glucose,Whole Blood 176 mg/dL (75-99)
[2019-04-07] MEDS: IPRATROPIUM-ALBUTEROL 3 ML NEB INHALATION PRN ×4 (04:00→23:56)
[2019-04-07] MEDS: methylPREDNISolone SOD SUCCI 125 MG/2 ML VIAL IV SCH ×4 (05:02→23:35)
[2019-04-07] MEDS: guaiFENesin-DM 100-10MG/5ML 10 ML CUP PO PRN ×4 (05:02→21:05)
[2019-04-07 07:25] LABS: Glucose,Whole Blood 158 mg/dL (75-99)
[2019-04-07] MEDS: FAMOTIDINE 20 MG TAB PO SCH ×2 (07:39→21:05)
[2019-04-07] MEDS: INSULIN ASPART (NovoLOG) 100 UNIT/ML VIAL SQ SCH ×4 (07:39→20:53)
[2019-04-07] MEDS: SODIUM CHLORIDE 0.9% 1,000 ML IV SCH ×2 (07:48→22:57)
[2019-04-07] MEDS: HYDROcodone/APAP 5-325MG 1 EACH TAB PO PRN (07:52)
[2019-04-07 08:14] LABS: Basophils % (A) 0 %; Eosinophils % (A) 0 %; HCT 38.4 % (39.0-53.0); HGB 12.1 gm/dL (13.0-17.5); Lymphocytes # (A) 0.3 k/uL (1.0-4.8); Lymphocytes % (A) 3 %; MCH 31.8 pg (25.0-35.0); MCHC 31.4 g/dL (31.0-37.0); MCV 101.4 fL (80.0-100.0); Macrocytosis Slight; Mean Platelet Volume 6.5; Monocytes # (A) 0.1 k/uL (0-1.0); Monocytes % (A) 1 %; Neutrophils # (A) 8.9 k/uL (1.3-7.7); Neutrophils % (A) 95 %; Platelet Count 407 k/uL (150-450); RBC 3.79 m/uL (4.30-5.90); RDW 14.2 % (11.5-15.5); WBC 9.3 k/uL (3.8-10.6)
[2019-04-07 08:38] LABS: ALT 35 U/L (21-72); AST 18 U/L (17-59); African American GFR (CKD) >90 (>60 ml/min/1.73 sqM); Albumin 2.9 g/dL (3.5-5.0); Alkaline Phosphatase 53 U/L (38-126); Anion Gap 9 mmol/L; Blood Urea Nitrogen 17 mg/dL (9-20); Calcium 8.7 mg/dL (8.4-10.2); Carbon Dioxide 28 mmol/L (22-30); Chloride 97 mmol/L (98-107); Glucose 147 mg/dL (74-99); Potassium 4.5 mmol/L (3.5-5.1); Sodium 134 mmol/L (137-145); Total Bilirubin 0.4 mg/dL (0.2-1.3); Total Protein 5.5 g/dL (6.3-8.2)
[2019-04-07 12:26] LABS: Glucose,Whole Blood 198 mg/dL (75-99)
--- NOTE | 2019-04-07 13:12 | P.HPIM ---
History of Present Illness 58-year-old male with a history of COPD he uses 2 L of oxygen at home. Patient has been coughing is complaining of increase the short as of breath. Patient had a chest x-ray which showed bilateral pneumonia which was present during the previous hospital physician as well patient was treated for pneumonia and was also found to have Aspergillus fungus ball in the right upper lung. Patient was discharged on antifungals. Patient doesn't have any obvious fever denied any nausea vomiting diarrhea. Patient respiratory status did not change significantly compared to his last discharge if cleared by pulmonology patient will be discharged today patient probably doesn't need to be readmitted. unable to bring up much when he is coughing Review of Systems REVIEW OF SYSTEMS: CONSTITUTIONAL: No fever, no malaise, no fatigue. HEENT: No recent visual problems or hearing problems. Denied any sore throat. CARDIOVASCULAR: No chest pain, orthopnea, PND, no palpitations, no syncope. PULMONARY: No shortness of breath, no cough, no hemoptysis. GASTROINTESTINAL: No diarrhea, no nausea, no vomiting, no abdominal pain. NEUROLOGICAL: No headaches, no weakness, no numbness. HEMATOLOGICAL: Denies any bleeding or petechiae. GENITOURINARY: Denies any burning micturition, frequency, or urgency. MUSCULOSKELETAL/RHEUMATOLOGICAL: Denies any joint pain, swelling, or any muscle pain. ENDOCRINE: Denies any polyuria or polydipsia. The rest of the 14-point review of systems is negative. 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 Past Anesthesia/Blood Transfusion Reactions: No Reported Reaction Past Psychological History: Depression, Panic Disorder Additional Psychological History / Comment(s): Lives in apartment, 17 steps to climb.Has a nebulizer. 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 - Past Family History Mother Family Medical History: Cancer Additional Family Medical History / Comment(s): Pt believes his Mom of Kidney Ca Father Family Medical History: Cancer, COPD, Respiratory Disorder Additional Family Medical History / Comment(s): Melonoma Medications and Allergies Home Medications Medication Instructions Recorded Confirmed Type Escitalopram [Lexapro] 5 mg PO DAILY 11/14/18 04/06/19 History Lisinopril [Zestril] 5 mg PO DAILY 11/14/18 04/06/19 History Melatonin 5 mg PO HS PRN 11/14/18 04/06/19 History Montelukast [Singulair] 10 mg PO HS #30 tab 11/17/18 04/06/19 Rx Nicotine 14Mg/24Hr Patch [Habitrol] 1 patch TRANSDERM DAILY #30 patch 11/17/18 04/06/19 Rx Budesonide/Formoterol Fumarate 2 puff INHALATION RT-BID #1 12/15/18 04/06/19 Rx [Symbicort 160-4.5 Mcg Inhaler] hfa.aer.ad Ipratropium-Albuterol Nebulize 3 ml INHALATION RT-QID PRN #60 12/15/18 04/06/19 Rx [Duoneb 0.5 mg-3 mg/3 ml Soln] ampul.neb Famotidine [Pepcid AC] 10 mg PO BID 03/30/19 04/06/19 History Amoxic-Pot Clav 875-125Mg 1 tab PO Q12HR #14 tablet 04/04/19 04/06/19 Rx [Augmentin 875-125] Gabapentin 400 mg PO Q6H PRN #20 tablet 04/04/19 04/06/19 Rx Itraconazole [Sporanox] 200 mg PO DAILY #30 cap 04/04/19 04/06/19 Rx predniSONE See Taper PO DAILY 04/06/19 04/06/19 History Allergies Allergy/AdvReac Type Severity Reaction Status Date / Time peanut [Peanut Butter] AdvReac Nausea & Verified 04/06/19 18:03 Vomiting & Diarrhea Physical Exam Vitals: Vital Signs Temp Pulse Pulse Resp BP BP Pulse Ox 04/07/19 11:28 94 04/07/19 11:16 98 04/07/19 07:50 108 H 04/07/19 07:39 100 04/07/19 05:00 97.5 F L 80 18 168/88 99 04/07/19 04:12 108 H 04/07/19 04:01 100 04/06/19 23:44 110 H 04/06/19 23:33 108 H 04/06/19 23:00 97.6 F 73 18 123/75 97 04/06/19 20:09 113 H 04/06/19 20:00 100 22 118/83 96 04/06/19 18:31 100 04/06/19 18:03 96 04/06/19 16:59 98.8 F 107 H 28 H 131/70 92 L Intake and Output 04/06/19 04/07/19 04/07/19 22:59 06:59 14:59 Intake Total 350 300 Balance 350 300 Intake: Oral 350 300 Other: # Voids 1 2 2 Weight 81.647 kg PHYSICAL EXAMINATION: GENERAL: The patient is alert and oriented x3, not in any acute distress. Well developed, well nourished. HEENT: Pupils are round and equally reacting to light. EOMI. No scleral icterus. No conjunctival pallor. Normocephalic, atraumatic. No pharyngeal erythema. No thyromegaly. CARDIOVASCULAR: S1 and S2 present. No murmurs, rubs, or gallops. PULMONARY: while expiratory wheezing rhonchus breath sounds ABDOMEN: Soft, nontender, nondistended, normoactive bowel sounds. No palpable organomegaly. MUSCULOSKELETAL: No joint swelling or deformity. EXTREMITIES: No cyanosis, clubbing, or pedal edema. NEUROLOGICAL: Gross neurological examination did not reveal any focal deficits. SKIN: No rashes. Results CBC & Chem 7: 04/07/19 07:33 04/07/19 07:33 Labs: Abnormal Lab Results - Last 24 Hours (Table) 04/06/19 04/06/19 04/06/19 Range/Units 18:25 18:25 21:25 WBC 14.2 H (3.8-10.6) k/uL RBC 3.97 L (4.30-5.90) m/uL Hgb (13.0-17.5) gm/dL Hct (39.0-53.0) % MCV 100.6 H D (80.0-100.0) fL Neutrophils # 11.8 H (1.3-7.7) k/uL Lymphocytes # (1.0-4.8) k/uL Eosinophils # 0.9 H (0-0.7) k/uL Sodium 135 L (137-145) mmol/L Chloride 96 L (98-107) mmol/L Carbon Dioxide 33 H (22-30) mmol/L BUN 22 H (9-20) mg/dL Creatinine 0.58 L (0.66-1.25) mg/dL Glucose 130 H (74-99) mg/dL POC Glucose (mg/dL) 315 H (75-99) mg/dL Total Protein 5.6 L (6.3-8.2) g/dL Albumin 3.0 L (3.5-5.0) g/dL 04/07/19 04/07/19 04/07/19 Range/Units 02:44 07:11 07:33 WBC (3.8-10.6) k/uL RBC 3.79 L (4.30-5.90) m/uL Hgb 12.1 L (13.0-17.5) gm/dL Hct 38.4 L (39.0-53.0) % MCV 101.4 H (80.0-100.0) fL Neutrophils # 8.9 H (1.3-7.7) k/uL Lymphocytes # 0.3 L (1.0-4.8) k/uL Eosinophils # (0-0.7) k/uL Sodium (137-145) mmol/L Chloride (98-107) mmol/L Carbon Dioxide (22-30) mmol/L BUN (9-20) mg/dL Creatinine (0.66-1.25) mg/dL Glucose (74-99) mg/dL POC Glucose (mg/dL) 176 H 158 H (75-99) mg/dL Total Protein (6.3-8.2) g/dL Albumin (3.5-5.0) g/dL 04/07/19 04/07/19 Range/Units 07:33 12:21 WBC (3.8-10.6) k/uL RBC (4.30-5.90) m/uL Hgb (13.0-17.5) gm/dL Hct (39.0-53.0) % MCV (80.0-100.0) fL Neutrophils # (1.3-7.7) k/uL Lymphocytes # (1.0-4.8) k/uL Eosinophils # (0-0.7) k/uL Sodium 134 L (137-145) mmol/L Chloride 97 L (98-107) mmol/L Carbon Dioxide (22-30) mmol/L BUN (9-20) mg/dL Creatinine 0.53 L (0.66-1.25) mg/dL Glucose 147 H (74-99) mg/dL POC Glucose (mg/dL) 198 H (75-99) mg/dL Total Protein 5.5 L (6.3-8.2) g/dL Albumin 2.9 L (3.5-5.0) g/dL Thrombosis Risk Factor Assmnt - Choose All That Apply Any of the Below Risk Factors Present?: Yes Each Factor Represents 1 point: Age 41-60 years Other Risk Factors: No Thrombosis Risk Factor Assessment Total Risk Factor Score: 1 Thrombosis Risk Factor Assessment Level: Low Risk Assessment and Plan Plan: chronic hypercapnic respiratory failure second to COPD exacerbation continued to oral steroids inhalational treatments -Bilateral pneumonia with Aspergillus fungus ball in the right upper lobe: Continue with Augmentin and antifungals azithromycin was added any at although may not be necessary if cleared by pulmonology patient will be discharged today although there is a issue regarding his medications being expensive will address in coordination with case management social work -history of nicotine use and marijuana use -Carotid artery disease with previous [place] -Type 2 diabetes mellitus -Chronic pain syndrome -Gastroesophageal reflux disease
[2019-04-07] MEDS: IPRATROPIUM-ALBUTEROL 3 ML NEB INHALATION SCH ×2 (13:16→15:19)
--- NOTE | 2019-04-07 13:24 | P.CNPUL ---
History of Present Illness Consult date: 04/07/19 Requesting physician: Mitchell Guzmán Reason for consult: dyspnea, abnormal CXR/CT Chief complaint: Shortness of breath, cough, congestion History of present illness: This is a 58-year-old gentleman who follows with Dr. Urszula Cano as his primary care physician. 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 He also has chronic obstructive pulmonary disease, oxygen dependent at 2 L/m per nasal cannula, FEV1 value 36% of predicted in 2017. He has been followed in our office for the same. He had been on Symbicort, albuterol, nebulized treatments. He was recently admitted here for a right upper lobe pneumonia. A computed tomography scan revealed an extensive right upper lobe consolidation secondary to probable fungal etiology. His sputum was positive for Aspergillus. His Aspergillus fumigatus IgE level was high as well. He was initiated on Sporanox and continued on Augmentin and discharged on 04/04/2019. Return to the emergency room again yesterday with complaints of increasing shortness of breath cough and congestion. No fever, chills or night sweats. No nausea, vomiting or diarrhea. He was smoking again in the outpatient setting. X-ray continues to show evidence of bilateral pneumonia with increasing consolidation right upper lobe, no change in the left lung. He is afebrile. White count 9.3. Hemoglobin 12.1. Creatinine 0.53. Sodium 134. Review of Systems REVIEW OF SYSTEMS: CONSTITUTIONAL: Denies any recent significant weight loss or weight gain. EYES: Denies change in vision. EARS, NOSE, MOUTH, THROAT: Denies headaches, denies sore throat. CARDIOVASCULAR: Positive right-sided chest pain, secondary to cough. No palpitations or syncopal episodes. RESPIRATORY: Positive for shortness of breath, cough, congestion or hemoptysis. GASTROINTESTINAL: Denies change in appetite, denies abdominal pain GENITOURINARY: Denies hematuria, denies infections. MUSKULOSKELETAL: Denies pain, denies swelling. INTEGUMENTARY: Denies rash, denies eczema. NEUROLOGICAL: Denies recent memory loss, no recent seizure activity. PSYCHIATRIC: Denies anxiety, denies depression. HEMATOLOGIC/LYMPHATIC: Denies anemia, denies enlarged lymph nodes. 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 Past Anesthesia/Blood Transfusion Reactions: No Reported Reaction Past Psychological History: Depression, Panic Disorder Additional Psychological History / Comment(s): Lives in apartment, 17 steps to climb.Has a nebulizer. 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 - Past Family History Mother Family Medical History: Cancer Additional Family Medical History / Comment(s): Pt believes his Mom of Kidney Ca Father Family Medical History: Cancer, COPD, Respiratory Disorder Additional Family Medical History / Comment(s): Melonoma Medications and Allergies Home Medications Medication Instructions Recorded Confirmed Type Escitalopram [Lexapro] 5 mg PO DAILY 11/14/18 04/06/19 History Lisinopril [Zestril] 5 mg PO DAILY 11/14/18 04/06/19 History Melatonin 5 mg PO HS PRN 11/14/18 04/06/19 History Montelukast [Singulair] 10 mg PO HS #30 tab 11/17/18 04/06/19 Rx Nicotine 14Mg/24Hr Patch [Habitrol] 1 patch TRANSDERM DAILY #30 patch 11/17/18 04/06/19 Rx Budesonide/Formoterol Fumarate 2 puff INHALATION RT-BID #1 12/15/18 04/06/19 Rx [Symbicort 160-4.5 Mcg Inhaler] hfa.aer.ad Ipratropium-Albuterol Nebulize 3 ml INHALATION RT-QID PRN #60 12/15/18 04/06/19 Rx [Duoneb 0.5 mg-3 mg/3 ml Soln] ampul.neb Famotidine [Pepcid AC] 10 mg PO BID 03/30/19 04/06/19 History Amoxic-Pot Clav 875-125Mg 1 tab PO Q12HR #14 tablet 04/04/19 04/06/19 Rx [Augmentin 875-125] Gabapentin 400 mg PO Q6H PRN #20 tablet 04/04/19 04/06/19 Rx Itraconazole [Sporanox] 200 mg PO DAILY #30 cap 04/04/19 04/06/19 Rx predniSONE See Taper PO DAILY 04/06/19 04/06/19 History Allergies Allergy/AdvReac Type Severity Reaction Status Date / Time peanut [Peanut Butter] AdvReac Nausea & Verified 04/06/19 18:03 Vomiting & Diarrhea Physical Exam Vitals: Vital Signs Temp Pulse Pulse Resp BP BP Pulse Ox 04/07/19 11:28 94 04/07/19 11:16 98 04/07/19 07:50 108 H 04/07/19 07:39 100 04/07/19 05:00 97.5 F L 80 18 168/88 99 04/07/19 04:12 108 H 04/07/19 04:01 100 04/06/19 23:44 110 H 04/06/19 23:33 108 H 04/06/19 23:00 97.6 F 73 18 123/75 97 04/06/19 20:09 113 H 04/06/19 20:00 100 22 118/83 96 04/06/19 18:31 100 04/06/19 18:03 96 04/06/19 16:59 98.8 F 107 H 28 H 131/70 92 L Intake and Output 04/06/19 04/07/19 04/07/19 22:59 06:59 14:59 Intake Total 350 300 Balance 350 300 Intake: Oral 350 300 Other: # Voids 1 2 2 Weight 81.647 kg GENERAL EXAM: 58-year-old male patient. Alert, active, comfortable in no apparent distress. On 3 L nasal cannula. HEAD: Normocephalic. EYES: Right eye prosthesis. NOSE: Clear with pink turbinates. THROAT: No erythema or exudates. NECK: No masses, no JVD. CHEST: No chest wall deformity. LUNGS: Equal air entry with faint end expiratory wheeze, few scattered rhonchi. CVS: S1 and S2 normal with no audible murmur, regular rhythm. ABDOMEN: No hepatosplenomegaly, normal bowel sounds, no guarding or rigidity. SPINE: No scoliosis or deformity SKIN: No rashes CENTRAL NERVOUS SYSTEM: No focal deficits, tone is normal in all 4 extremities. EXTREMITIES: There is no peripheral edema. No clubbing, no cyanosis. Peripheral pulses are intact. Results - Laboratory Findings CBC and BMP: 04/07/19 07:33 04/07/19 07:33 PT/INR, D-dimer PT 9.8 sec (9.0-12.0) 04/06/19 18:25 INR 0.9 (<1.2) 04/06/19 18:25 Abnormal lab findings: Abnormal Labs 04/06/19 04/06/19 04/06/19 18:25 18:25 21:25 WBC 14.2 H RBC 3.97 L Hgb Hct MCV 100.6 H D Neutrophils # 11.8 H Lymphocytes # Eosinophils # 0.9 H Sodium 135 L Chloride 96 L Carbon Dioxide 33 H BUN 22 H Creatinine 0.58 L Glucose 130 H POC Glucose (mg/dL) 315 H Total Protein 5.6 L Albumin 3.0 L 04/07/19 04/07/19 04/07/19 02:44 07:11 07:33 WBC RBC 3.79 L Hgb 12.1 L Hct 38.4 L MCV 101.4 H Neutrophils # 8.9 H Lymphocytes # 0.3 L Eosinophils # Sodium Chloride Carbon Dioxide BUN Creatinine Glucose POC Glucose (mg/dL) 176 H 158 H Total Protein Albumin 04/07/19 04/07/19 07:33 12:21 WBC RBC Hgb Hct MCV Neutrophils # Lymphocytes # Eosinophils # Sodium 134 L Chloride 97 L Carbon Dioxide BUN Creatinine 0.53 L Glucose 147 H POC Glucose (mg/dL) 198 H Total Protein 5.5 L Albumin 2.9 L - Diagnostic Findings Chest x-ray: image reviewed Assessment and Plan Assessment: Impression: #1 Acute on chronic hypoxic respiratory failure secondary to right upper lobe consolidation felt to be fungal in nature with positive aspergillis fumigatus in the sputum and Aspergillus fumigatus IgE level high. The patient was recently discharged on Sporanox and Augmentin. Legionella ruled out. #2 Acute exacerbation of severe oxygen dependent chronic obstructive pulmonary disease with an FEV1 value of 66% of predicted. #3 Chronic and ongoing tobacco dependence. #4 Chronic pain syndrome. #5 History of CVA/hemorrhage. #6 Diabetes mellitus, type II. #7 Acid reflux disease. #8 History of shingles. 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 #10 History of noncompliance. Plan: The patient was seen and evaluated by Dr. Vogt. Chest x-ray and labs reviewed. He will be resumed on his Augmentin and Sporanox. He is unable to afford Symbicort. We'll plan to discharge him on a prednisone taper along with Dulera and albuterol once cleared medically. He'll keep his scheduled appointment in our office for follow-up. He is again educated regarding the importance of complete smoking cessation. NicoDerm patch in place. He is encouraged to call sooner with any recurrence of symptoms or other questions or concerns. I, the cosigning physician, performed a history & physical examination of the patient. Lungs sounds with few scattered rhonchi, faint end expiratory wheeze bilaterally. Maintaining good O2 saturations in the 90s on 3 L/m per nasal cannula. I discussed the assessment and plan of care with my nurse practitioner, Crissy Bland. I attest to the above note as dictated by her. Time with Patient: Greater than 30
[2019-04-07 13:40] VITALS: RESP 20
[2019-04-07] MEDS: ITRACONAZOLE 100 MG CAP PO SCH (14:41)
[2019-04-07] MEDS: GABAPENTIN 400 MG CAP PO PRN (14:58)
[2019-04-07 17:24] LABS: Glucose,Whole Blood 237 mg/dL (75-99)
[2019-04-07] MEDS: SYMBICORT 80-4.5 MCG INHALER INHALATION SCH (19:36)
[2019-04-07] MEDS ORDERED: SYMBICORT 160-4.5 MCG INHALER INHALATION SCH (20:00)
[2019-04-07 20:52] LABS: Glucose,Whole Blood 126 mg/dL (75-99)
[2019-04-07] MEDS ORDERED: AZITHROMYCIN 500 MG in SODIUM CHLORIDE 0.9% 250 ML IVPB SCH (21:00)
[2019-04-07] MEDS: MELATONIN 5 MG TABLET PO PRN (21:05)
[2019-04-07] MEDS: MONTELUKAST 10 MG TAB PO SCH (21:05)
[2019-04-07] MEDS: AMOXIC-POT CLAV 875-125MG 1 EACH TAB PO SCH (21:05)
[2019-04-08] MEDS: IPRATROPIUM-ALBUTEROL 3 ML NEB INHALATION PRN (04:14)
[2019-04-08] MEDS: guaiFENesin-DM 100-10MG/5ML 10 ML CUP PO PRN ×2 (04:31→12:26)
[2019-04-08] MEDS: methylPREDNISolone SOD SUCCI 125 MG/2 ML VIAL IV SCH ×2 (04:35→12:26)
[2019-04-08 07:17] LABS: Glucose,Whole Blood 201 mg/dL (75-99)
[2019-04-08] MEDS: AMOXIC-POT CLAV 875-125MG 1 EACH TAB PO SCH (07:24)
[2019-04-08] MEDS: FAMOTIDINE 20 MG TAB PO SCH (07:24)
[2019-04-08] MEDS: INSULIN ASPART (NovoLOG) 100 UNIT/ML VIAL SQ SCH ×2 (07:25→12:26)
[2019-04-08] MEDS: ITRACONAZOLE 100 MG CAP PO SCH (07:26)
[2019-04-08] MEDS: GABAPENTIN 400 MG CAP PO PRN (07:27)
[2019-04-08] MEDS: SYMBICORT 80-4.5 MCG INHALER INHALATION SCH (07:35)
[2019-04-08] MEDS: IPRATROPIUM-ALBUTEROL 3 ML NEB INHALATION SCH ×2 (07:35→11:32)
[2019-04-08] MEDS ORDERED: ACETAMINOPHEN TAB 325 MG TAB PO PRN (08:54)
--- NOTE | 2019-04-08 10:55 | P.PN ---
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 This is a 58-year-old gentleman who follows with Dr. Urszula Cano as his primary care physician. 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 He also has chronic obstructive pulmonary disease, oxygen dependent at 2 L/m per nasal cannula, FEV1 value 36% of predicted in 2017. He has been followed in our office for the same. He had been on Symbicort, albuterol, nebulized treatments. He was recently admitted here for a right upper lobe pneumonia. A computed tomography scan revealed an extensive right upper lobe consolidation secondary to probable fungal etiology. His sputum was positive for Aspergillus. His Aspergillus fumigatus IgE level was high as well. He was initiated on Sporanox and continued on Augmentin and discharged on 04/04/2019. Return to the emergency room again yesterday with complaints of increasing shortness of breath cough and congestion. No fever, chills or night sweats. No nausea, vomiting or diarrhea. He was smoking again in the outpatient setting. X-ray continues to show evidence of bilateral pneumonia with increasing consolidation right upper lobe, no change in the left lung. He is afebrile. White count 9.3. Hemoglobin 12.1. Creatinine 0.53. Sodium 134. Patient is seen today 04/08/2019 in follow-up on the regular medical floor. He is currently awake and alert in no acute distress. Resting quite comfortably in bed. Maintaining good O2 saturations in the mid 90s on 3 L/m per nasal cannula. He is afebrile. Hemodynamically stable. He is an occasional cough. Currently nonproductive. Blood culture shows no growth. He has been maintained on DuoNeb inhalations, IV Solu-Medrol, Symbicort, Augmentin and Sporanox. Objective - Vital Signs Vital signs: Vital Signs Temp 97.5 F L 04/08/19 04:40 Pulse 88 04/08/19 07:47 Resp 20 04/08/19 04:40 BP 156/79 04/08/19 04:40 Pulse Ox 95 04/08/19 07:38 Intake & Output 04/07/19 04/08/19 04/08/19 18:59 06:59 18:59 Intake Total 400 Balance 400 Intake: Oral 400 Other: # Voids 2 1 - Exam GENERAL EXAM: 58-year-old male patient. Alert, comfortable in no apparent distress. On 3 L nasal cannula. HEAD: Normocephalic. EYES: Right eye prosthesis. NOSE: Clear with pink turbinates. THROAT: No erythema or exudates. NECK: No masses, no JVD. CHEST: No chest wall deformity. LUNGS: Equal air entry with faint end expiratory wheeze, few scattered rhonchi. CVS: S1 and S2 normal with no audible murmur, regular rhythm. ABDOMEN: No hepatosplenomegaly, normal bowel sounds, no guarding or rigidity. SPINE: No scoliosis or deformity SKIN: No rashes CENTRAL NERVOUS SYSTEM: No focal deficits, tone is normal in all 4 extremities. EXTREMITIES: There is no peripheral edema. No clubbing, no cyanosis. Kathi pheral pulses are intact. - Labs CBC & Chem 7: 04/07/19 07:33 04/07/19 07:33 Labs: Abnormal Lab Results - Last 24 Hours (Table) 04/07/19 04/07/19 04/07/19 Range/Units 12:21 17:13 20:49 POC Glucose (mg/dL) 198 H 237 H 126 H (75-99) mg/dL 04/08/19 Range/Units 07:06 POC Glucose (mg/dL) 201 H (75-99) mg/dL Microbiology - Last 24 Hours (Table) 04/06/19 18:25 Blood Culture - Preliminary Blood No Growth after 24 hours Assessment and Plan Assessment: Impression: #1 Acute on chronic hypoxic respiratory failure secondary to right upper lobe consolidation felt to be fungal in nature with positive aspergillis fumigatus in the sputum and Aspergillus fumigatus IgE level high. The patient was recently discharged on Sporanox and Augmentin. Legionella ruled out. #2 Acute exacerbation of severe oxygen dependent chronic obstructive pulmonary disease with an FEV1 value of 66% of predicted. #3 Chronic and ongoing tobacco dependence. #4 Chronic pain syndrome. #5 History of CVA/hemorrhage. #6 Diabetes mellitus, type II. #7 Acid reflux disease. #8 History of shingles. 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 #10 History of noncompliance. Plan: The patient was seen and evaluated by Dr. Vogt. He is cleared for discharge from the pulmonary standpoint. He will continue his Augmentin and Sporanox. He was recently discharged on a prednisone taper along with Dulera and albuterol that he can hand picker from the [facility]. He'll keep his scheduled appointment in our office for follow-up. He is again educated regarding the importance of complete smoking cessation. NicoDerm patch in place. He is encouraged to call sooner with any recurrence of symptoms or other questions or concerns. I, the cosigning physician, performed a history & physical examination of the patient. Lungs sounds with few scattered rhonchi, faint end expiratory wheeze bilaterally, diminished. Maintaining good O2 saturations in the 90s on 3 L/m per nasal cannula. I discussed the assessment and plan of care with my nurse practitioner, Crissy Bland. I attest to the above note as dictated by her.
[2019-04-08 12:19] LABS: Glucose,Whole Blood 126 mg/dL (75-99)
[2019-04-08 13:07] VITALS: BP 163/80; PULSE 98; TEMP 97.6
--- NOTE | 2019-04-08 14:17 | P.DS ---
Providers Date of admission: 04/06/19 19:20 Expected date of discharge: 04/08/19 Attending physician: Mitchell Guzmán Consults: 04/06/19 19:20 Consult Physician Routine Consulting Provider: Isis Vogt Consult Reason/Comments: COPD, pneumonia Do you want consulting provider notified?: Yes Primary care physician: Helen Newberry Joy Hospital Course: Final diagnosis Chronic hypercapnic respiratory failure secondary to COPD exacerbation Bilateral pneumonia with Aspergillus fungus in the right upper lobe History of nicotine use and marijuana use Coronary artery disease with previous IN Diabetes mellitus type 2 Chronic pain syndrome Gastroesophageal reflux disease Discharge disposition Patient is being discharged in stable condition with guarded prognosis to home and is to follow-up with pulmonary in the outpatient setting within the next week. History of present illness This is a 58-year-old male with a history of COPD and O2 dependent at home with 2 L that was recently admitted for an increase in shortness of breath. Patient was recently just discharged on oral steroids, antifungal's, and antibiotics that were continued throughout this hospital course and patient will continue while at home. Pulmonary was following the patient as well and states that the patient is stable for discharge. Patient denies any chest pain, or palpitations at this time. Patient does have some shortness of breath but is somewhat better than yesterday. Patient is having pain in the upper left arm today which is chronic and he is on Neurontin for this. Patient denies any nausea or vomiting and is tolerating diet. Patient remained afebrile during hospitalization. Patient was given a prescription for dulera as he is unable to afford the Symbicort. Patient will also go home on a prednisone taper. Patient is currently stable with improvement. Discussed with the patient about avoiding tobacco or marijuana use. On exam vital signs are stable. Blood pressure is 163/80, pulse is 98, respirations are 20, temp is 97.6F, oxygen saturation is 95% on 2 L nasal cannula. Cardio S1 and S2 are normal. Respiratory system shows mild expiratory wheezing. Abdomen is soft and non-tender. Nervous system shows no focal deficits. Please refer to medication reconciliation sheet for a list of medications. Patient Condition at Discharge: Stable Plan - Discharge Summary New Discharge Prescriptions: Continue Lisinopril [Zestril] 5 mg PO DAILY Escitalopram [Lexapro] 5 mg PO DAILY Melatonin 5 mg PO HS PRN PRN Reason: Insomnia Nicotine 14Mg/24Hr Patch [Habitrol] 1 patch TRANSDERM DAILY #30 patch Montelukast [Singulair] 10 mg PO HS #30 tab Ipratropium-Albuterol Nebulize [Duoneb 0.5 mg-3 mg/3 ml Soln] 3 ml INHALATION RT-QID PRN #60 ampul.neb PRN Reason: Shortness Of Breath Budesonide/Formoterol Fumarate [Symbicort 160-4.5 Mcg Inhaler] 2 puff INHALATION RT-BID #1 hfa.aer.ad Famotidine [Pepcid AC] 10 mg PO BID Amoxic-Pot Clav 875-125Mg [Augmentin 875-125] 1 tab PO Q12HR #14 tablet Itraconazole [Sporanox] 200 mg PO DAILY #30 cap Gabapentin 400 mg PO Q6H PRN #20 tablet PRN Reason: Pain predniSONE See Taper PO DAILY Discharge Medication List Escitalopram [Lexapro] 5 mg PO DAILY 11/14/18 [History] Lisinopril [Zestril] 5 mg PO DAILY 11/14/18 [History] Melatonin 5 mg PO HS PRN 11/14/18 [History] Montelukast [Singulair] 10 mg PO HS #30 tab 11/17/18 [Rx] Nicotine 14Mg/24Hr Patch [Habitrol] 1 patch TRANSDERM DAILY #30 patch 11/17/18 [Rx] Budesonide/Formoterol Fumarate [Symbicort 160-4.5 Mcg Inhaler] 2 puff INHALATION RT-BID #1 hfa.aer.ad 12/15/18 [Rx] Ipratropium-Albuterol Nebulize [Duoneb 0.5 mg-3 mg/3 ml Soln] 3 ml INHALATION RT-QID PRN #60 ampul.neb 12/15/18 [Rx] Famotidine [Pepcid AC] 10 mg PO BID 03/30/19 [History] Amoxic-Pot Clav 875-125Mg [Augmentin 875-125] 1 tab PO Q12HR #14 tablet 04/04/19 [Rx] Gabapentin 400 mg PO Q6H PRN #20 tablet 04/04/19 [Rx] Itraconazole [Sporanox] 200 mg PO DAILY #30 cap 04/04/19 [Rx] predniSONE See Taper PO DAILY 04/06/19 [History] Follow up Appointment(s)/Referral(s): Urszula Carrasco MD [Primary Care Provider] - 3 Days (Office currently closed. Please call and schedule appointment. ) Willie Garcia MD [STAFF PHYSICIAN] - 1 Week (Office currently closed. Please call and schedule appointment. ) Patient Instructions/Handouts: Community Acquired Pneumonia (DC) Activity/Diet/Wound Care/Special Instructions: Maintain follow-up appointments Take medication as prescribed. Discharge Disposition: HOME SELF-CARE
== END 2019-04-08 13:55 | disposition home or self-care (01) | DRG 867 ==
LOC: EC 16:58 → 4MS4W 19:20
PROVIDERS: ADMIT Internal Medicine; ATTEND Internal Medicine
DX: B44.9 Aspergillosis, unspecified (principal); J18.9 Pneumonia, unspecified organism; J96.21 Acute and chronic respiratory failure with hypoxia; J96.22 Acute and chronic respiratory failure with hypercapnia; J44.0 Chronic obstructive pulmonary disease with (acute) lower respiratory infection; J44.1 Chronic obstructive pulmonary disease with (acute) exacerbation; Z86.69 Personal history of other diseases of the nervous system and sense organs; G89.4 Chronic pain syndrome; E11.9 Type 2 diabetes mellitus without complications; F17.210 Nicotine dependence, cigarettes, uncomplicated; F32.9 Major depressive disorder, single episode, unspecified; F41.0 Panic disorder [episodic paroxysmal anxiety]; I10 Essential (primary) hypertension; I25.10 Atherosclerotic heart disease of native coronary artery without angina pectoris; I25.2 Old myocardial infarction; K21.9 Gastro-esophageal reflux disease without esophagitis; Z79.51 Long term (current) use of inhaled steroids; Z79.899 Other long term (current) drug therapy; Z80.51 Family history of malignant neoplasm of kidney; Z82.5 Family history of asthma and other chronic lower respiratory diseases; Z86.19 Personal history of other infectious and parasitic diseases; Z86.73 Personal history of transient ischemic attack (TIA), and cerebral infarction without residual deficits; Z90.01 Acquired absence of eye; Z91.19 Patient's noncompliance with other medical treatment and regimen; Z97.0 Presence of artificial eye; Z99.81 Dependence on supplemental oxygen; M75.01 Adhesive capsulitis of right shoulder; Z91.010 Allergy to peanuts; Z87.01 Personal history of pneumonia (recurrent); Z79.52 Long term (current) use of systemic steroids
CPT/HCPCS: 36415; 71046; 80053; 83605; 83735; 83880; 84484; 85025; 85610; 85730; 87040; 93005; 94640; 94760; 96365; 96375; 99291

== ENCOUNTER 2019-04-29 19:15 | Observation (INO) | payer OTHER ==
[2019-04-29] MEDS ORDERED: SODIUM CHLORIDE 0.9% 1,000 ML IV STA ×2 (19:20)
[2019-04-29] MEDS ORDERED: IPRATROPIUM-ALBUTEROL 3 ML NEB INHALATION STA (19:20)
[2019-04-29] MEDS ORDERED: methylPREDNISolone SOD SUCCI 125 MG/2 ML VIAL IV STA (19:20)
[2019-04-29 19:46] LABS: Basophils # (A) 0.1 k/uL (0-0.2); Basophils % (A) 1 %; Eosinophils # (A) 0.1 k/uL (0-0.7); Eosinophils % (A) 1 %; HCT 38.8 % (39.0-53.0); HGB 13.3 gm/dL (13.0-17.5); Lymphocytes % (A) 10 %; MCH 33.3 pg (25.0-35.0); MCHC 34.1 g/dL (31.0-37.0); MCV 97.6 fL (80.0-100.0); Mean Platelet Volume 6.2; Monocytes # (A) 0.3 k/uL (0-1.0); Monocytes % (A) 3 %; Neutrophils # (A) 7.9 k/uL (1.3-7.7); Neutrophils % (A) 84 %; Platelet Count 309 k/uL (150-450); RBC 3.98 m/uL (4.30-5.90); RDW 14.7 % (11.5-15.5); WBC 9.5 k/uL (3.8-10.6)
[2019-04-29 19:51] LABS: ALT 22 U/L (21-72); AST 22 U/L (17-59); African American GFR (CKD) >90 (>60 ml/min/1.73 sqM); Alkaline Phosphatase 56 U/L (38-126); Anion Gap 9 mmol/L; Blood Urea Nitrogen 13 mg/dL (9-20); Calcium 9.7 mg/dL (8.4-10.2); Carbon Dioxide 30 mmol/L (22-30); Chloride 95 mmol/L (98-107); Glucose 112 mg/dL (74-99); Potassium 4.2 mmol/L (3.5-5.1); Sodium 134 mmol/L (137-145); Total Bilirubin 0.2 mg/dL (0.2-1.3); Total Protein 6.4 g/dL (6.3-8.2)
[2019-04-29 19:55] LABS: INR 0.9 (<1.2); Prothrombin Time 9.8 sec (9.0-12.0)
[2019-04-29 19:57] LABS: Partial Thromboplastin Time 21.4 sec (22.0-30.0)
[2019-04-29] MEDS ORDERED: IPRATROPIUM-ALBUTEROL 3 ML NEB INHALATION SCH (20:00)
[2019-04-29] MEDS ORDERED: MORPHINE SULFATE 4 MG/ML SYRINGE IVP STA (20:01)
--- NOTE | 2019-04-29 20:01 | ED ---
SOB HPI - General Chief Complaint: Shortness of Breath Stated Complaint: CLEMENCIA Time Seen by Provider: 04/29/19 19:20 Source: patient, EMS Mode of arrival: EMS Limitations: no limitations - History of Present Illness Initial Comments: This is a 38-year-old male the ER for evaluation. Patient will return facility for shortness of breath. Coming in for severe shortness of breath left shoulder pain back pain left leg pain. Patient has no trauma recently. Patient complaining of severe pain severe shortness of breath no help at home, increased cough and congestion wheezing is febrile with diaphoresis. No recent travel history or no known significant sick contacts, multiple hospital admissions. Patient denies current chest or abdominal pain may complaining of shoulder pain and left flank pain MD Complaint: shortness of breath, chest pain (L shoulder pain) -: days(s) Radiation: left arm Severity: severe Severity scale (1-10): 9 Quality: aching, throbbing Consistency: constant Improves With: nothing Worsens With: nothing Known History Of: COPD, congestive heart failure Context: anxiety Associated Symptoms: chest pain, pain with inspiration, cough Treatments Prior to Arrival: none - Related Data Home Medications Medication Instructions Recorded Confirmed Melatonin 5 mg PO HS 11/14/18 04/29/19 Fluticasone/Salmeterol 1 puff INHALATION RT-BID 04/29/19 04/29/19 [Fluticasone-Salmeterol 232-14] Gabapentin 800 mg PO Q6H PRN 04/29/19 04/29/19 amLODIPine [Norvasc] 10 mg PO DAILY 04/29/19 04/29/19 Previous Rx's Medication Instructions Recorded Montelukast [Singulair] 10 mg PO HS #30 tab 11/17/18 Nicotine 14Mg/24Hr Patch [Habitrol] 1 patch TRANSDERM DAILY #30 patch 11/17/18 Ipratropium-Albuterol Nebulize 3 ml INHALATION RT-QID PRN #60 12/15/18 [Duoneb 0.5 mg-3 mg/3 ml Soln] ampul.neb Itraconazole [Sporanox] 200 mg PO DAILY #30 cap 04/04/19 Allergies Allergy/AdvReac Type Severity Reaction Status Date / Time peanut [Peanut Butter] AdvReac Nausea & Verified 04/29/19 20:23 Vomiting & Diarrhea Review of Systems ROS Statement: Those systems with pertinent positive or pertinent negative responses have been documented in the HPI. ROS Other: All systems not noted in ROS Statement are negative. 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 Past Anesthesia/Blood Transfusion Reactions: No Reported Reaction Past Psychological History: Depression, Panic Disorder Smoking Status: Current every day smoker Past Alcohol Use History: Occasional Past Drug Use History: Marijuana - Past Family History Mother Family Medical History: Cancer Additional Family Medical History / Comment(s): Pt believes his Mom of Kidney Ca Father Family Medical History: Cancer, COPD, Respiratory Disorder Additional Family Medical History / Comment(s): Melonoma General Exam Limitations: no limitations General appearance: alert, in no apparent distress Head exam: Present: atraumatic, normocephalic, normal inspection Eye exam: Present: normal appearance, PERRL, EOMI. Absent: scleral icterus, conjunctival injection, periorbital swelling ENT exam: Present: normal exam, mucous membranes moist Neck exam: Present: normal inspection. Absent: tenderness, meningismus, lymphadenopathy Respiratory exam: Present: normal lung sounds bilaterally. Absent: respiratory distress, wheezes, rales, rhonchi, stridor Cardiovascular Exam: Present: normal rhythm, tachycardia, normal heart sounds. Absent: systolic murmur, diastolic murmur, rubs, gallop, clicks GI/Abdominal exam: Present: soft, normal bowel sounds. Absent: distended, tenderness, guarding, rebound, rigid Extremities exam: Present: normal inspection, full ROM, normal capillary refill. Absent: tenderness, pedal edema, joint swelling, calf tenderness Back exam: Present: normal inspection Neurological exam: Present: alert, oriented X3, CN II-XII intact Psychiatric exam: Present: normal affect, normal mood Skin exam: Present: warm, dry, intact, normal color. Absent: rash Course Vital Signs 04/29/19 04/29/19 04/29/19 19:29 19:38 19:52 Temperature 99.2 F Pulse Rate 109 H 102 H 100 Respiratory 20 20 Rate Blood Pressure 137/78 O2 Sat by Pulse 97 Oximetry Medical Decision Making - Medical Decision Making 58 male the ER for evaluation woman for significant COPD and CHF exacerbation with pain control, chest pain - Lab Data Result diagrams: 04/29/19 14:26 04/29/19 14:26 Lab Results 04/29/19 04/29/19 04/29/19 Range/Units 14:26 14:26 14:26 WBC 9.5 (3.8-10.6) k/uL RBC 3.98 L (4.30-5.90) m/uL Hgb 13.3 (13.0-17.5) gm/dL Hct 38.8 L (39.0-53.0) % MCV 97.6 (80.0-100.0) fL MCH 33.3 (25.0-35.0) pg MCHC 34.1 (31.0-37.0) g/dL RDW 14.7 (11.5-15.5) % Plt Count 309 (150-450) k/uL Neutrophils % 84 % Lymphocytes % 10 % Monocytes % 3 % Eosinophils % 1 % Basophils % 1 % Neutrophils # 7.9 H (1.3-7.7) k/uL Lymphocytes # 1.0 (1.0-4.8) k/uL Monocytes # 0.3 (0-1.0) k/uL Eosinophils # 0.1 (0-0.7) k/uL Basophils # 0.1 (0-0.2) k/uL PT (9.0-12.0) sec INR (<1.2) APTT (22.0-30.0) sec Sodium 134 L (137-145) mmol/L Potassium 4.2 (3.5-5.1) mmol/L Chloride 95 L (98-107) mmol/L Carbon Dioxide 30 (22-30) mmol/L Anion Gap 9 mmol/L BUN 13 (9-20) mg/dL Creatinine 0.52 L (0.66-1.25) mg/dL Est GFR (CKD-EPI)AfAm >90 (>60 ml/min/1.73 sqM) Est GFR (CKD-EPI)NonAf >90 (>60 ml/min/1.73 sqM) Glucose 112 H (74-99) mg/dL Calcium 9.7 (8.4-10.2) mg/dL Total Bilirubin 0.2 (0.2-1.3) mg/dL AST 22 (17-59) U/L ALT 22 (21-72) U/L Alkaline Phosphatase 56 (38-126) U/L Troponin I (0.000-0.034) ng/mL NT-Pro-B Natriuret Pep 139 pg/mL Total Protein 6.4 (6.3-8.2) g/dL Albumin 4.0 (3.5-5.0) g/dL 04/29/19 04/29/19 Range/Units 14:26 14:26 WBC (3.8-10.6) k/uL RBC (4.30-5.90) m/uL Hgb (13.0-17.5) gm/dL Hct (39.0-53.0) % MCV (80.0-100.0) fL MCH (25.0-35.0) pg MCHC (31.0-37.0) g/dL RDW (11.5-15.5) % Plt Count (150-450) k/uL Neutrophils % % Lymphocytes % % Monocytes % % Eosinophils % % Basophils % % Neutrophils # (1.3-7.7) k/uL Lymphocytes # (1.0-4.8) k/uL Monocytes # (0-1.0) k/uL Eosinophils # (0-0.7) k/uL Basophils # (0-0.2) k/uL PT 9.8 (9.0-12.0) sec INR 0.9 (<1.2) APTT 21.4 L (22.0-30.0) sec Sodium (137-145) mmol/L Potassium (3.5-5.1) mmol/L Chloride (98-107) mmol/L Carbon Dioxide (22-30) mmol/L Anion Gap mmol/L BUN (9-20) mg/dL Creatinine (0.66-1.25) mg/dL Est GFR (CKD-EPI)AfAm (>60 ml/min/1.73 sqM) Est GFR (CKD-EPI)NonAf (>60 ml/min/1.73 sqM) Glucose (74-99) mg/dL Calcium (8.4-10.2) mg/dL Total Bilirubin (0.2-1.3) mg/dL AST (17-59) U/L ALT (21-72) U/L Alkaline Phosphatase (38-126) U/L Troponin I <0.012 (0.000-0.034) ng/mL NT-Pro-B Natriuret Pep pg/mL Total Protein (6.3-8.2) g/dL Albumin (3.5-5.0) g/dL - EKG Data -: EKG Interpreted by Me (EKG shows sinus tachycardia rate of 102, RI 124, QRS 70, QTc 432) Disposition Clinical Impression: Failure of outpatient treatment, Chest pain, Asthma exacerbation in COPD, Acute exacerbation of chronic obstructive pulmonary disease (COPD), Community acquired pneumonia Disposition: ADMITTED IP TO THIS HOSP Condition: Fair Is patient prescribed a controlled substance at d/c from ED?: No
--- NOTE | 2019-04-29 20:20 | XR ---
EXAMINATION TYPE: XR chest 1V portable DATE OF EXAM: 04/29/2019 COMPARISON: 04/22/2019 HISTORY: Cough TECHNIQUE: Single frontal view of the chest is obtained. FINDINGS: There is 7.5 x 2.5 cm linear area of consolidation in the lateral right upper lobe. There is no heart failure. Heart size is normal. There is no definite pleural effusion. There are chest joselin ds. IMPRESSION: There is consolidation in the right upper lobe that has increased compared to recent exa m. This is consistent with pneumonia. Normal heart.
[2019-04-29] MEDS ORDERED: LEVOFLOXACIN 750MG-D5W PMX 750 MG in DEXTROSE/WATER 1 150ML.BAG IVPB STA (20:24)
[2019-04-29] MEDS ORDERED: PNEUMONIA PROTOCOL UTILIZED 1 EACH MISC PO PRN (20:24)
[2019-04-29] MEDS ORDERED: PIPERACILLIN-TAZOBACTAM 3.375 GM in SODIUM CHLORIDE 0.9% 100 ML IVPB STA (20:24)
--- NOTE | 2019-04-29 20:30 | XR ---
EXAMINATION TYPE: XR knee complete LT DATE OF EXAM: 04/29/2019 COMPARISON: NONE HISTORY: Knee pain TECHNIQUE: 3 views FINDINGS: There is some spurring on the patella. There is no sign of joint effusion. I see no fractur e nor dislocation. There are no erosions. IMPRESSION: Mild spurring on the patella. No fracture seen.
--- NOTE | 2019-04-29 20:41 | XR ---
EXAMINATION TYPE: XR Hip LT and AP Pelvis DATE OF EXAM: 04/29/2019 COMPARISON: NONE HISTORY: Pain TECHNIQUE: A single AP view of the pelvis is obtained. Two views of the left hip are obtained. FINDINGS: The pelvic ring is intact. Proximal femurs appear intact. Hip joint spaces are fairly daphney l. There is no evidence of a fracture. Sacroiliac joints appear normal. IMPRESSION: Negative pelvis and left hip exam.
[2019-04-29] MEDS: ALBUTEROL NEBULIZED 2.5 MG/3 ML INHALATION PRN (23:58)
[2019-04-30] MEDS: MORPHINE SULFATE 4 MG/ML SYRINGE IVP PRN ×3 (00:46→08:48)
[2019-04-30 01:23] VITALS: BMI 26.9
[2019-04-30] MEDS: methylPREDNISolone SOD SUCCI 125 MG/2 ML VIAL IV SCH ×3 (01:35→11:21)
[2019-04-30] MEDS: SODIUM CHLORIDE 0.9% 1,000 ML IV SCH ×2 (02:04→05:35)
[2019-04-30] MEDS: ALBUTEROL NEBULIZED 2.5 MG/3 ML INHALATION PRN (04:24)
[2019-04-30 04:37] VITALS: RESP 18
[2019-04-30] MEDS: PIPERACILLIN-TAZOBACTAM 3.375 GM in SODIUM CHLORIDE 0.9% 100 ML IVPB SCH ×2 (05:24→13:06)
[2019-04-30 06:10] VITALS: BP 151/80; TEMP 97.4
--- NOTE | 2019-04-30 08:30 | XR ---
EXAMINATION TYPE: XR chest 2V DATE OF EXAM: 04/30/2019 COMPARISON: Prior chest x-ray 04/29/2019 and chest x-ray 04/06/2019, chest CT 04/03/2019 HISTORY: COPD, shortness of breath and pneumonia TECHNIQUE: Frontal and lateral views of the chest are obtained on 3 images. FINDINGS: Prominent lung volumes with flattening the hemidiaphragms is compatible with patient's his tory of COPD. Abnormal increased density in the right upper lobe is stable. Technique is somewhat api peter lordotic and rotated. No evident pneumothorax or pleural effusion. There is eventration of the ri ght hemidiaphragm. Heart size is unchanged. Pulmonary vascularity and gabe show similar appearance. IMPRESSION: No significant interval change compared to most previous exam, there is interval improve ment compared to 04/06/2019. Correlate for pneumonia, residual scar, follow-up to resolution to exclud e underlying mass.
[2019-04-30] MEDS: IPRATROPIUM-ALBUTEROL 3 ML NEB INHALATION SCH ×2 (09:58→11:00)
[2019-04-30] MEDS ORDERED: ITRACONAZOLE 100 MG CAP PO SCH (10:45)
--- NOTE | 2019-04-30 10:49 | P.CNPUL ---
History of Present Illness Consult date: 04/30/19 Requesting physician: Mitchell Guzmán Reason for consult: dyspnea, COPD, abnormal CXR/CT Chief complaint: Shortness of breath, cough, congestion History of present illness: This is a 58-year-old gentleman who follows with Dr. Urszula Cano as his primary care physician. 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 He also has chronic obstructive pulmonary disease, oxygen dependent at 2 L/m per nasal cannula, FEV1 value 36% of predicted in 2017. He has been followed in our office for the same. He had been on Symbicort, albuterol, nebulized treatments. He was recently admitted here for a right upper lobe pneumonia. A computed tomography scan revealed an extensive right upper lobe consolidation secondary to probable fungal etiology. His sputum was positive for Aspergillus. His Aspergillus fumigatus IgE level was high as well. He was initiated on Sporanox and continued on Augmentin and discharged on 04/04/2019. He did have a follow- up office visit in that chest x-ray showed clearing of the right upper lobe infiltrate. He presented here to the emergency room yesterday with complaints of increasing shortness of breath, cough and congestion. Today's chest x-ray shows interval improvement compared to 04/06/2019 x-ray. He is maintaining O2 saturations in the 90s on 2 L/m per nasal cannula. He's afebrile. Hemodynamically stable. White count 9.5. Hemoglobin 13.3. Creatinine 0.52. He was initiated on DuoNeb inhalations, IV Solu-Medrol, antibiotics in the form of Zosyn and Levaquin. His Sporanox will be reordered. Review of Systems REVIEW OF SYSTEMS: CONSTITUTIONAL: Denies any recent significant weight loss or weight gain. EYES: Denies change in vision. EARS, NOSE, MOUTH, THROAT: Denies headaches, denies sore throat. CARDIOVASCULAR: Denies chest pain, palpitations or syncopal episodes. RESPIRATORY: Positive for shortness of breath, cough, congestion no hemoptysis. GASTROINTESTINAL: Denies change in appetite, denies abdominal pain GENITOURINARY: Denies hematuria, denies infections. MUSKULOSKELETAL: Left shoulder pain, denies swelling. INTEGUMENTARY: Denies rash, denies eczema. NEUROLOGICAL: Denies recent memory loss, no recent seizure activity. PSYCHIATRIC: Denies anxiety, denies depression. HEMATOLOGIC/LYMPHATIC: Denies anemia, denies enlarged lymph nodes. 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 Past Anesthesia/Blood Transfusion Reactions: No Reported Reaction Past Psychological History: Depression, Panic Disorder Additional Psychological History / Comment(s): Lives in apartment, 17 steps to climb.Has a nebulizer. 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 Smoking Status: Current every day smoker Past Alcohol Use History: Occasional Additional Past Alcohol Use History / Comment(s): STARTED SMOKING 1975 1 PPD- QUIT 6 MONTHS AGO, PT STATED HE DRINKS AN 2 BEER a day Past Drug Use History: Marijuana Additional Drug Use History / Comment(s): PAST MARIJUANA USE IN HIS TEEN YEARS. - Past Family History Mother Family Medical History: Cancer Additional Family Medical History / Comment(s): Pt believes his Mom of Kidney Cancer Father Family Medical History: Cancer, COPD, Respiratory Disorder Additional Family Medical History / Comment(s): Melanoma Medications and Allergies Home Medications Medication Instructions Recorded Confirmed Type Melatonin 5 mg PO HS 11/14/18 04/29/19 History Montelukast [Singulair] 10 mg PO HS #30 tab 11/17/18 04/29/19 Rx Nicotine 14Mg/24Hr Patch [Habitrol] 1 patch TRANSDERM DAILY #30 patch 04/01/19 09/11/19 Rx Ipratropium-Albuterol Nebulize 3 ml INHALATION RT-QID PRN #60 12/15/18 04/29/19 Rx [Duoneb 0.5 mg-3 mg/3 ml Soln] ampul.neb Itraconazole [Sporanox] 200 mg PO DAILY #30 cap 04/04/19 04/29/19 Rx Fluticasone/Salmeterol 1 puff INHALATION RT-BID 04/29/19 04/29/19 History [Fluticasone-Salmeterol 232-14] Gabapentin 800 mg PO Q6H PRN 04/29/19 04/29/19 History amLODIPine [Norvasc] 10 mg PO DAILY 04/29/19 04/29/19 History Allergies Allergy/AdvReac Type Severity Reaction Status Date / Time peanut [Peanut Butter] AdvReac Nausea & Verified 04/29/19 20:23 Vomiting & Diarrhea Physical Exam Vitals: Vital Signs Temp Pulse Pulse Resp BP BP Pulse Ox 04/30/19 05:00 97.4 F L 85 18 151/80 94 L 04/30/19 04:36 101 H 18 04/30/19 04:26 99 20 04/30/19 00:06 105 H 18 04/29/19 23:58 103 H 18 04/29/19 23:53 98.0 F 98 20 145/74 96 04/29/19 22:30 102 H 16 127/77 04/29/19 22:00 102 H 16 137/80 04/29/19 21:30 110 H 20 150/87 04/29/19 21:00 114 H 21 134/70 04/29/19 20:49 103 H 20 134/70 97 04/29/19 20:30 134/70 04/29/19 20:00 101 H 20 110/77 04/29/19 19:52 100 04/29/19 19:47 101 H 14 137/78 98 04/29/19 19:38 102 H 20 04/29/19 19:29 99.2 F 109 H 20 137/78 97 Intake and Output 04/29/19 04/30/19 04/30/19 22:59 06:59 14:59 Intake Total 500 Balance 500 Intake: Oral 500 Other: Voiding Method Toilet Toilet # Voids 2 Weight 75.659 kg GENERAL EXAM: Alert, active, comfortable in no apparent distress. On room air. HEAD: Normocephalic. EYES: Right eye prosthetic. NOSE: Clear with pink turbinates. THROAT: No erythema or exudates. NECK: No masses, no JVD. CHEST: No chest wall deformity. LUNGS: Equal air entry with no crackles, wheeze, rhonchi or dullness. Diminished. CVS: S1 and S2 normal with no audible murmur, regular rhythm. ABDOMEN: No hepatosplenomegaly, normal bowel sounds, no guarding or rigidity. SPINE: No scoliosis or deformity SKIN: No rashes CENTRAL NERVOUS SYSTEM: No focal deficits, tone is normal in all 4 extremities. EXTREMITIES: Left upper extremity in a sling. There is no peripheral edema. No clubbing, no cyanosis. Peripheral pulses are intact. Results - Laboratory Findings CBC and BMP: 04/29/19 14:26 04/29/19 14:26 PT/INR, D-dimer PT 9.8 sec (9.0-12.0) 04/29/19 14:26 INR 0.9 (<1.2) 04/29/19 14:26 Abnormal lab findings: Abnormal Labs 04/29/19 04/29/19 04/29/19 14:26 14:26 14:26 RBC 3.98 L Hct 38.8 L Neutrophils # 7.9 H APTT 21.4 L Sodium 134 L Chloride 95 L Creatinine 0.52 L Glucose 112 H - Diagnostic Findings Chest x-ray: image reviewed Assessment and Plan Assessment: Impression: Impression: #1 Acute on chronic hypoxic respiratory failure secondary to right upper lobe consolidation felt to be fungal in nature with positive aspergillis fumigatus in the sputum and Aspergillus fumigatus IgE level high. The patient was recently discharged on Sporanox and Augmentin. Legionella ruled out. Today's chest x- ray shows improvement compared x-ray on 04/06/2019. Continued on Sporanox. #2 Acute exacerbation of severe oxygen dependent chronic obstructive pulmonary disease with an FEV1 value of 66% of predicted. #3 Chronic and ongoing tobacco dependence. #4 Chronic pain syndrome with recent injury to left shoulder, currently in a sling. #5 History of CVA/hemorrhage. #6 Diabetes mellitus, type II. #7 Acid reflux disease. #8 History of shingles. 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 #10 History of noncompliance. Plan: The patient was seen and evaluated by Dr. Vogt. Chest x-ray and labs reviewed. Right upper lobe consolidation continues to resolve. Continue on Sporanox. He is cleared for discharge from the pulmonary standpoint. Complete prednisone burst and taper. Follow-up in the office in 1-2 weeks' time. He is encouraged to call sooner with any recurrence of symptoms or other questions or concerns. I, the cosigning physician, performed a history & physical examination of the patient. Lungs sounds are clear, diminished. Maintaining good O2 saturations in the 90s on 2 L/m per nasal cannula. I discussed the assessment and plan of care with my nurse practitioner, Crissy Bland. I attest to the above consultation as dictated by her. Time with Patient: Greater than 30
[2019-04-30 11:23] VITALS: PULSE 102
--- NOTE | 2019-04-30 12:51 | P.HPIM ---
History of Present Illness 58-year-old male well-known to my service because of his there are multiple hospital patient's came in with complaints of shortness of breath although when I examined patient has good air entry into bilateral lung brown no wheezing patient will not require any stomach steroids. Patient chest x-ray showing right upper lobe pneumonia which is improving from his last hospitalization patient has right upper lobe consolidation was treated for Acinetobacter pneumonia as well as a Aspergillus pneumonia. Patient had Aspergillus fumigatus with elevated IgE levels. Patient is still on itraconazole for that and patient will continue that and patient is on weaning dose of steroids at home he'll complete the therapy will not need any additional steroids. Patient was seen and evaluated with pulmonology and agree with that plan and they will follow the patient as an outpatient patient is also complaining of pain in the left arm. Patient had a fracture and patient had a sling in that area. Patient doesn't have any other significant fractures patient was comparing of pain in multiple joints because of his imaging of multiple joints was opted which did not show any significant abnormality. Although patient is known to aspirate from opiate medications for pain. Review of Systems REVIEW OF SYSTEMS: CONSTITUTIONAL: No fever, no malaise, no fatigue. HEENT: No recent visual problems or hearing problems. Denied any sore throat. CARDIOVASCULAR: No chest pain, orthopnea, PND, no palpitations, no syncope. PULMONARY: no cough, no hemoptysis. GASTROINTESTINAL: No diarrhea, no nausea, no vomiting, no abdominal pain. NEUROLOGICAL: No headaches, no weakness, no numbness. HEMATOLOGICAL: Denies any bleeding or petechiae. GENITOURINARY: Denies any burning micturition, frequency, or urgency. MUSCULOSKELETAL/RHEUMATOLOGICAL: Denies any joint pain, swelling, or any muscle pain. ENDOCRINE: Denies any polyuria or polydipsia. The rest of the 14-point review of systems is negative. Past Medical History Past Medical History: Asthma, Chest Pain / Angina, COPD, CVA/TIA, Hypertension, Myocardial Infarction ([place]), Pneumonia, Respiratory Disorder, Skin Disorder Additional Past Medical History / Comment(s): COPD with an FEV1 of 36% of predicted based on his spirometry from 2016, chronic hypoxic respiratory failure, history of CVA, diabetes mellitus type 2, chronic smoker, chronic pain syndrome, hypertension, acid reflux, 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 Past Anesthesia/Blood Transfusion Reactions: No Reported Reaction Past Psychological History: Depression, Panic Disorder Additional Psychological History / Comment(s): Lives in apartment, 17 steps to climb.Has a nebulizer. 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 Smoking Status: Current every day smoker Past Alcohol Use History: Occasional Additional Past Alcohol Use History / Comment(s): STARTED SMOKING 1975 08 PPD- QUIT 6 MONTHS AGO, PT STATED HE DRINKS AN 2 BEER a day Past Drug Use History: Marijuana Additional Drug Use History / Comment(s): PAST MARIJUANA USE IN HIS TEEN YEARS. - Past Family History Mother Family Medical History: Cancer Additional Family Medical History / Comment(s): Pt believes his Mom of Kidney Cancer Father Family Medical History: Cancer, COPD, Respiratory Disorder Additional Family Medical History / Comment(s): Melanoma Medications and Allergies Home Medications Medication Instructions Recorded Confirmed Type Melatonin 5 mg PO HS 11/14/18 04/29/19 History Montelukast [Singulair] 10 mg PO HS #30 tab 11/17/18 04/29/19 Rx Nicotine 14Mg/24Hr Patch [Habitrol] 1 patch TRANSDERM DAILY #30 patch 11/17/18 04/29/19 Rx Ipratropium-Albuterol Nebulize 3 ml INHALATION RT-QID PRN #60 12/15/18 04/29/19 Rx [Duoneb 0.5 mg-3 mg/3 ml Soln] ampul.neb Itraconazole [Sporanox] 200 mg PO DAILY #30 cap 04/04/19 04/29/19 Rx Fluticasone/Salmeterol 1 puff INHALATION RT-BID 04/29/19 04/29/19 History [Fluticasone-Salmeterol 232-14] Gabapentin 800 mg PO Q6H PRN 04/29/19 04/29/19 History amLODIPine [Norvasc] 10 mg PO DAILY 04/29/19 04/29/19 History Allergies Allergy/AdvReac Type Severity Reaction Status Date / Time peanut [Peanut Butter] AdvReac Nausea & Verified 04/29/19 20:23 Vomiting & Diarrhea Physical Exam Vitals: Vital Signs Temp Pulse Pulse Resp BP BP Pulse Ox 04/30/19 11:22 102 H 04/30/19 11:00 98 04/30/19 05:00 97.4 F L 85 18 151/80 94 L 04/30/19 04:36 101 H 18 04/30/19 04:26 99 20 04/30/19 00:06 105 H 18 04/29/19 23:58 103 H 18 04/29/19 23:53 98.0 F 98 20 145/74 96 04/29/19 22:30 102 H 16 127/77 04/29/19 22:00 102 H 16 137/80 04/29/19 21:30 110 H 20 150/87 04/29/19 21:00 114 H 21 134/70 04/29/19 20:49 103 H 20 134/70 97 04/29/19 20:30 134/70 04/29/19 20:00 101 H 20 110/77 04/29/19 19:52 100 04/29/19 19:47 101 H 14 137/78 98 04/29/19 19:38 102 H 20 04/29/19 19:29 99.2 F 109 H 20 137/78 97 Intake and Output 04/29/19 04/30/19 04/30/19 22:59 06:59 14:59 Intake Total 500 Balance 500 Intake: Oral 500 Other: Voiding Method Toilet Toilet # Voids 2 2 Weight 75.659 kg PHYSICAL EXAMINATION: GENERAL: The patient is alert and oriented x3, not in any acute distress. Well developed, well nourished. HEENT: Pupils are round and equally reacting to light. EOMI. No scleral icterus. No conjunctival pallor. Normocephalic, atraumatic. No pharyngeal erythema. No thyromegaly. CARDIOVASCULAR: S1 and S2 present. No murmurs, rubs, or gallops. PULMONARY: Chest is clear to auscultation, no wheezing or crackles. ABDOMEN: Soft, nontender, nondistended, normoactive bowel sounds. No palpable organomegaly. MUSCULOSKELETAL: No joint swelling or deformity. EXTREMITIES: No cyanosis, clubbing, or pedal edema. Patient has a sling to the left arm NEUROLOGICAL: Gross neurological examination did not reveal any focal deficits. SKIN: No rashes. Results CBC & Chem 7: 04/29/19 14:26 04/29/19 14:26 Labs: Abnormal Lab Results - Last 24 Hours (Table) 04/29/19 04/29/19 04/29/19 Range/Units 14:26 14:26 14:26 RBC 3.98 L (4.30-5.90) m/uL Hct 38.8 L (39.0-53.0) % Neutrophils # 7.9 H (1.3-7.7) k/uL APTT 21.4 L (22.0-30.0) sec Sodium 134 L (137-145) mmol/L Chloride 95 L (98-107) mmol/L Creatinine 0.52 L (0.66-1.25) mg/dL Glucose 112 H (74-99) mg/dL Thrombosis Risk Factor Assmnt - Choose All That Apply Each Factor Represents 1 point: Abnormal pulmonary function (COPD), Age 41-60 years Thrombosis Risk Factor Assessment Total Risk Factor Score: 2 Thrombosis Risk Factor Assessment Level: Low Risk Assessment and Plan Plan: -Short of breath probably secondary to COPD exacerbation although his wheezing completely resolved. -Acute on chronic hypercapnic respiratory failure secondary to COPD -Recent Aspergillus which is improving no evidence of any pneumonia no addit ional antibodies an S3 patient will continue his itraconazole -Ongoing tobacco use counseling was provided regarding this and -Recent shoulder injury for which patient has a sling and chronic pain syndrome. And avoid opiate male and ALLERGIES see if patient can use medications like gabapentin , duloxetine -Type 2 diabetes mellitus next and hypogastric esophageal reflux disease Patient will be discharged today no changes in medications will be made. Patient will follow-up with the PCP Dr. Alban Cano as an outpatient and pulmonary as an outpatient.
--- NOTE | 2019-04-30 12:51 | P.DS ---
Providers Date of admission: 04/29/19 19:20 Attending physician: Tricia Cano Consults: 04/29/19 20:02 Consult Physician Routine Consulting Provider: Willie Garcia Consult Reason/Comments: known Do you want consulting provider notified?: Yes Primary care physician: Urszula Carrasco [facility] Course: Please refer to my HPI Patient Condition at Discharge: Fair Plan - Discharge Summary Discharge Rx Participant: No New Discharge Prescriptions: No Action Melatonin 5 mg PO HS Nicotine 14Mg/24Hr Patch [Habitrol] 1 patch TRANSDERM DAILY #30 patch Montelukast [Singulair] 10 mg PO HS #30 tab Ipratropium-Albuterol Nebulize [Duoneb 0.5 mg-3 mg/3 ml Soln] 3 ml INHALATION RT-QID PRN #60 ampul.neb PRN Reason: Shortness Of Breath Itraconazole [Sporanox] 200 mg PO DAILY #30 cap Gabapentin 800 mg PO Q6H PRN PRN Reason: Pain Fluticasone/Salmeterol [Fluticasone-Salmeterol 232-14] 1 puff INHALATION RT- BID amLODIPine [Norvasc] 10 mg PO DAILY Discharge Medication List Melatonin 5 mg PO HS 11/14/18 [History] Montelukast [Singulair] 10 mg PO HS #30 tab 11/17/18 [Rx] Nicotine 14Mg/24Hr Patch [Habitrol] 1 patch TRANSDERM DAILY #30 patch 11/17/18 [Rx] Ipratropium-Albuterol Nebulize [Duoneb 0.5 mg-3 mg/3 ml Soln] 3 ml INHALATION RT-QID PRN #60 ampul.neb 12/15/18 [Rx] Itraconazole [Sporanox] 200 mg PO DAILY #30 cap 04/04/19 [Rx] Fluticasone/Salmeterol [Fluticasone-Salmeterol 232-14] 1 puff INHALATION RT-BID 04/29/19 [History] Gabapentin 800 mg PO Q6H PRN 04/29/19 [History] amLODIPine [Norvasc] 10 mg PO DAILY 04/29/19 [History] Follow up Appointment(s)/Referral(s): Urszula Carrasco MD [Primary Care Provider] - 05/05/19 2:15 pm Patient Instructions/Handouts: COPD (Chronic Obstructive Pulmonary Disease) ([place]) Discharge Disposition: HOME SELF-CARE
[2019-04-30] MEDS ORDERED: LEVOFLOXACIN 750MG-D5W PMX 750 MG in DEXTROSE/WATER 1 150ML.BAG IVPB SCH (21:00)
[2019-05-01] MEDS ORDERED: LEVOFLOXACIN 750 MG TAB PO SCH (21:00)
== END 2019-04-30 13:25 | disposition home or self-care (01) ==
LOC: EC 19:15 → 4MS4W 19:20
PROVIDERS: ADMIT Hospitalist; ATTEND Hospitalist
DX: J96.22 Acute and chronic respiratory failure with hypercapnia (principal); J96.21 Acute and chronic respiratory failure with hypoxia; M79.602 Pain in left arm; M79.605 Pain in left leg; M54.9 Dorsalgia, unspecified; M25.512 Pain in left shoulder; F41.0 Panic disorder [episodic paroxysmal anxiety]; F32.9 Major depressive disorder, single episode, unspecified; K21.9 Gastro-esophageal reflux disease without esophagitis; E11.9 Type 2 diabetes mellitus without complications; G89.4 Chronic pain syndrome; J45.901 Unspecified asthma with (acute) exacerbation; J44.1 Chronic obstructive pulmonary disease with (acute) exacerbation; I11.0 Hypertensive heart disease with heart failure; I50.9 Heart failure, unspecified; I25.2 Old myocardial infarction; I25.10 Atherosclerotic heart disease of native coronary artery without angina pectoris; Z86.19 Personal history of other infectious and parasitic diseases; Z97.0 Presence of artificial eye; Z90.01 Acquired absence of eye; Z87.891 Personal history of nicotine dependence; Z86.73 Personal history of transient ischemic attack (TIA), and cerebral infarction without residual deficits; Z87.01 Personal history of pneumonia (recurrent); Z79.899 Other long term (current) drug therapy; Z91.010 Allergy to peanuts; Z91.19 Patient's noncompliance with other medical treatment and regimen; Z99.81 Dependence on supplemental oxygen; Z82.5 Family history of asthma and other chronic lower respiratory diseases; Z80.8 Family history of malignant neoplasm of other organs or systems
CPT/HCPCS: 96376; 96361 ×2; 96366 ×3; 96365; 96375; 99285; 36415; 94640 ×4; 93005; 83880; 80053; 84484; 85025; 85610; 85730; 87040; 73502; 73562; 71045; 71046; G0378 ×2; J2543; J2270 ×2; J2930 ×2; J1956

== ENCOUNTER → 2019-05-08 | Outpatient (CLI) | payer OTHER ==
--- NOTE | 2019-05-10 19:01 | MR ---
EXAMINATION TYPE: MR shoulder LT wo con DATE OF EXAM: 05/08/2019 COMPARISON: None HISTORY: Left shoulder pain TECHNIQUE: Multiplanar, multisequence imaging of the left shoulder is performed without contrast. FINDINGS: Rotator Cuff: Somewhat attenuated but intact. Acromioclavicular Joint: Hypertrophic changes are present due to underlying arthropathy. There is flu id in the subacromial subdeltoid bursa. Glenohumeral Joint: There is collapse of the humeral head. This extends into the glenohumeral joint. Labrum: There is abnormal increased signal involving the glenoid labrum posteriorly as well as anteri jacy, intrasubstance signal noted on coronal images as well. Remodeling of the inferior bony labrum i s noted. Suspect there May BE associated labral tear. Biceps Tendon: There is fluid signal along the long head of biceps tendon which is in the bicipital g roove. Bone marrow signal: There is abnormal serpiginous low signal present at the periphery of mixed interm ediate and low signal on T1 and T2-weighted sequences, subchondral high T1 and T2 signal, there is li new osteonecrosis present which is suspect is chronic Other: There is a joint effusion. IMPRESSION: Osteonecrosis with collapse of the humeral head. Difficult to exclude a labral tear.
== END | disposition home or self-care (01) ==
LOC: RADMRIMAIN 12:02
PROVIDERS: ATTEND Family Medicine
DX: M87.812 Other osteonecrosis, left shoulder (principal)

== ENCOUNTER 2019-05-11 16:35 | Inpatient (IN) | payer OTHER ==
[2019-05-11 17:38] LABS: Anisocytosis Slight; Basophils % (A) 0 %; Eosinophils # (A) 0.2 k/uL (0-0.7); Eosinophils % (A) 1 %; HCT 42.7 % (39.0-53.0); HGB 14.8 gm/dL (13.0-17.5); Lymphocytes % (A) 4 %; MCH 33.4 pg (25.0-35.0); MCHC 34.8 g/dL (31.0-37.0); Mean Platelet Volume 6.4; Monocytes # (A) 0.7 k/uL (0-1.0); Monocytes % (A) 3 %; Neutrophils # (A) 21.1 k/uL (1.3-7.7); Neutrophils % (A) 92 %; Platelet Count 220 k/uL (150-450); RBC 4.44 m/uL (4.30-5.90)
[2019-05-11 17:39] LABS: ALT 37 U/L (21-72); AST 28 U/L (17-59); African American GFR (CKD) >90 (>60 ml/min/1.73 sqM); Albumin 3.8 g/dL (3.5-5.0); Alkaline Phosphatase 51 U/L (38-126); Anion Gap 6 mmol/L; Blood Urea Nitrogen 10 mg/dL (9-20); Calcium 9.3 mg/dL (8.4-10.2); Carbon Dioxide 24 mmol/L (22-30); Chloride 99 mmol/L (98-107); Glucose 98 mg/dL (74-99); Sodium 129 mmol/L (137-145); Total Bilirubin 1.1 mg/dL (0.2-1.3); Total Protein 6.4 g/dL (6.3-8.2)
[2019-05-11 17:41] LABS: Potassium 4.6 mmol/L (3.5-5.1)
[2019-05-11] MEDS ORDERED: IPRATROPIUM-ALBUTEROL 3 ML NEB INHALATION STA (18:13)
--- NOTE | 2019-05-11 18:20 | ED ---
SOB HPI - General Chief Complaint: Shortness of Breath Stated Complaint: Diff Breathing Time Seen by Provider: 05/11/19 18:03 Source: patient, EMS, RN notes reviewed Mode of arrival: EMS Limitations: no limitations - History of Present Illness Initial Comments: This a 58-year-old male presents emergency department via EMS with chief complaint of increased shortness breath, cough congestion fever or chills. Patient does have underlying lung disease with COPD, asthma is on 2 L of oxygen chronically. Patient states is getting no relief with multiple treatments at home. Patient states that he just does not feel well. Patient is on no current steroids he did get discharged from the hospital 2 weeks ago. Patient underwent abdominal pain no leg swelling no orthopnea. Denies any runny nose, sore throat or any ear pain No Neck Pain or Neck Stiffness. Patient states that he's having difficulty in breathing due to shortness of breath patient also states that he cannot hold a conversation without resting. - Related Data Home Medications Medication Instructions Recorded Confirmed Melatonin 5 mg PO HS 11/14/18 05/11/19 Fluticasone/Salmeterol 1 puff INHALATION RT-BID 04/29/19 05/11/19 [Fluticasone-Salmeterol 232-14] Gabapentin 800 mg PO Q6H PRN 04/29/19 05/11/19 amLODIPine [Norvasc] 10 mg PO DAILY 04/29/19 05/11/19 Albuterol Inhaler [Ventolin Hfa 1 - 2 puff INHALATION RT-Q6H PRN 05/11/1904/20 Inhaler] Previous Rx's Medication Instructions Recorded Montelukast [Singulair] 10 mg PO HS #30 tab 11/17/18 Nicotine 14Mg/24Hr Patch [Habitrol] 1 patch TRANSDERM DAILY #30 patch 11/17/18 Ipratropium-Albuterol Nebulize 3 ml INHALATION RT-QID PRN #60 12/15/18 [Duoneb 0.5 mg-3 mg/3 ml Soln] ampul.neb Allergies Allergy/AdvReac Type Severity Reaction Status Date / Time peanut [Peanut Butter] AdvReac Nausea & Verified 05/11/19 18:26 Vomiting & Diarrhea Review of Systems ROS Statement: Those systems with pertinent positive or pertinent negative responses have been documented in the HPI. ROS Other: All systems not noted in ROS Statement are negative. 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 Past Anesthesia/Blood Transfusion Reactions: No Reported Reaction Past Psychological History: Depression, Panic Disorder Smoking Status: Current every day smoker Past Alcohol Use History: Occasional Past Drug Use History: Marijuana - Past Family History Mother Family Medical History: Cancer Additional Family Medical History / Comment(s): Pt believes his Mom of [place] Cancer Father Family Medical History: Cancer, COPD, Respiratory Disorder Additional Family Medical History / Comment(s): Melanoma General Exam Limitations: no limitations General appearance: alert, in no apparent distress Head exam: Present: atraumatic, normocephalic, normal inspection Eye exam: Present: PERRL, EOMI. Absent: normal appearance (Prosthetic right eye with red lens), scleral icterus, conjunctival injection, periorbital swelling ENT exam: Present: normal exam, normal oropharynx, mucous membranes moist, TM's normal bilaterally, normal external ear exam Neck exam: Present: normal inspection, full ROM. Absent: tenderness, meningismus, lymphadenopathy Respiratory exam: Present: wheezes, rhonchi, decreased breath sounds. Absent: normal lung sounds bilaterally, respiratory distress, rales, stridor Cardiovascular Exam: Present: regular rate, normal rhythm, normal heart sounds. Absent: systolic murmur, diastolic murmur, rubs, gallop, clicks GI/Abdominal exam: Present: soft, normal bowel sounds. Absent: distended, tenderness, guarding, rebound, rigid Extremities exam: Present: pedal edema Course Vital Signs 05/11/19 05/11/19 05/11/19 16:57 19:10 19:20 Temperature 98.0 F Pulse Rate 103 H 88 88 Respiratory 20 Rate Blood Pressure 106/67 O2 Sat by Pulse 94 L Oximetry 05/11/19 19:21 Temperature Pulse Rate 88 Respiratory Rate Blood Pressure O2 Sat by Pulse Oximetry Medical Decision Making - Medical Decision Making 58-year-old male presents emergency Department with chief complaint of fever cough congestion. Patient is a worsening pneumonia noted on x-ray. CT will be obtained as this seems to be worsening. Patient will be admitted for regions antibiotics. Patient started on Zosyn and Levaquin secondary to recent hospitalization. - Lab Data Result diagrams: 05/11/19 17:15 05/11/19 17:15 Lab Results 05/11/19 05/11/19 05/11/19 Range/Units 17:15 17:15 17:15 WBC 23.0 H (3.8-10.6) k/uL RBC 4.44 (4.30-5.90) m/uL Hgb 14.8 (13.0-17.5) gm/dL Hct 42.7 (39.0-53.0) % MCV 96.0 (80.0-100.0) fL MCH 33.4 (25.0-35.0) pg MCHC 34.8 (31.0-37.0) g/dL RDW 16.0 H (11.5-15.5) % Plt Count 220 (150-450) k/uL Neutrophils % 92 % Lymphocytes % 4 % Monocytes % 3 % Eosinophils % 1 % Basophils % 0 % Neutrophils # 21.1 H (1.3-7.7) k/uL Lymphocytes # 1.0 (1.0-4.8) k/uL Monocytes # 0.7 (0-1.0) k/uL Eosinophils # 0.2 (0-0.7) k/uL Basophils # 0.0 (0-0.2) k/uL Anisocytosis Slight Sodium 129 L (137-145) mmol/L Potassium 4.6 (3.5-5.1) mmol/L Chloride 99 (98-107) mmol/L Carbon Dioxide 24 (22-30) mmol/L Anion Gap 6 mmol/L BUN 10 (9-20) mg/dL Creatinine 0.51 L (0.66-1.25) mg/dL Est GFR (CKD-EPI)AfAm >90 (>60 ml/min/1.73 sqM) Est GFR (CKD-EPI)NonAf >90 (>60 ml/min/1.73 sqM) Glucose 98 (74-99) mg/dL Calcium 9.3 (8.4-10.2) mg/dL Total Bilirubin 1.1 (0.2-1.3) mg/dL AST 28 (17-59) U/L ALT 37 (21-72) U/L Alkaline Phosphatase 51 (38-126) U/L Troponin I <0.012 (0.000-0.034) ng/mL Total Protein 6.4 (6.3-8.2) g/dL Albumin 3.8 (3.5-5.0) g/dL Disposition Clinical Impression: Failure of outpatient treatment, Pneumonia, COPD exacerbation Disposition: ADMITTED IP TO THIS HOSP Condition: Fair Referrals: Urszula Carrasco MD [Primary Care Provider] - 1-2 days
--- NOTE | 2019-05-11 19:08 | XR ---
EXAMINATION TYPE: XR chest 2V DATE OF EXAM: 05/11/2019 COMPARISON: 04/30/2019 HISTORY: COPD. Short of breath. Fever. TECHNIQUE: Frontal and lateral views of the chest are obtained. FINDINGS: There is some atelectasis left lung base. There is 5 cm area of masslike consolidation rig ht upper lobe. This is in the posterior aspect of the lung and probably in the posterior segment of t he right upper lobe. Heart size is normal. There are no hilar masses. Bony thorax is intact. IMPRESSION: Atelectasis left lung base is new compared to recent exam. There is somewhat linear mass like infiltrate right upper lobe slightly increased compared to last exam and could relate to lung ab scess. There appears to be fluid level on previous exam is not present on today's exam.
[2019-05-11] MEDS ORDERED: RX INFO: IV CONTRAST WAS GIVEN 1 EACH MISC MISCELLANE PRN (19:15)
[2019-05-11] MEDS ORDERED: LEVOFLOXACIN 750MG-D5W PMX 750 MG in DEXTROSE/WATER 1 150ML.BAG IVPB STA (19:16)
[2019-05-11] MEDS ORDERED: PNEUMONIA PROTOCOL UTILIZED 1 EACH MISC PO PRN (19:16)
[2019-05-11] MEDS ORDERED: PIPERACILLIN-TAZOBACTAM 3.375 GM in SODIUM CHLORIDE 0.9% 100 ML IVPB STA (19:16)
[2019-05-11] MEDS ORDERED: methylPREDNISolone SOD SUCCI 125 MG/2 ML VIAL IV STA (19:18)
--- NOTE | 2019-05-11 20:30 | CT ---
EXAMINATION TYPE: CT chest w con DATE OF EXAM: 05/11/2019 COMPARISON: 04/03/2019 HISTORY: Worsening pneumonia, air-fluid level. CT DLP: 368.8 mGycm Automated exposure control for dose reduction was used. CONTRAST: CT scan of the chest is performed with IV Contrast, patient injected with 100 mL of Isovue 300. FINDINGS: There is diffuse bullous emphysema. There is a 4 cm cavitating infiltrate in the right upper lobe pos teriorly with fluid level. The anterior wall is relatively thin. There is no mediastinal adenopathy. There is a mild reticular patchy infiltrate in the posterior and lateral left lower lobe. There is no pleural effusion. Heart size is normal. There is no pericardial effusion. There are no hilar masses. IMPRESSION: Cavitating infiltrate right upper lobe with fluid level consistent with lung abscess paul t is overall the same or slightly smaller than previous CT scan it may indicate some improvement. Severe pulmonary emphysema. There is decreased left pleural fluid compared to old exam. There is increasing interstitial infiltra te in the posterior left lower lobe compared to last exam. Right upper lobe tumor not entirely excluded.
[2019-05-11] MEDS: IPRATROPIUM-ALBUTEROL 3 ML NEB INHALATION SCH ×2 (23:23→23:24)
[2019-05-12 00:42] VITALS: BMI 27.1
[2019-05-12] MEDS: IPRATROPIUM-ALBUTEROL 3 ML NEB INHALATION SCH ×5 (03:42→19:40)
--- NOTE | 2019-05-12 08:23 | XR ---
EXAMINATION TYPE: XR chest 2V DATE OF EXAM: 05/12/2019 COMPARISON: 05/11/2019 TECHNIQUE: PA and lateral views submitted. HISTORY: Abnormal x-ray FINDINGS: There is diffuse bullous emphysema. There is a 4 cm cavitating infiltrate in the right upper lobe pos teriorly with fluid level. The anterior wall is relatively thin. There is no mediastinal adenopathy. There is a mild reticular patchy infiltrate in the posterior and lateral left lower lobe. There is no pleural effusion. Heart size is normal. There is no pericardial effusion. IMPRESSION: 1. Stable cavitating mass or consolidation in the right upper lobe.
[2019-05-12 14:00] LABS: African American GFR (CKD) >90 (>60 ml/min/1.73 sqM); Anion Gap 8 mmol/L; Blood Urea Nitrogen 13 mg/dL (9-20); Calcium 9.5 mg/dL (8.4-10.2); Carbon Dioxide 26 mmol/L (22-30); Chloride 98 mmol/L (98-107); Glucose 181 mg/dL (74-99); Potassium 3.7 mmol/L (3.5-5.1); Sodium 132 mmol/L (137-145)
[2019-05-12 14:02] LABS: Basophils % (A) 0 %; Eosinophils # (A) 0.1 k/uL (0-0.7); Eosinophils % (A) 1 %; HCT 39.2 % (39.0-53.0); HGB 13.4 gm/dL (13.0-17.5); Lymphocytes # (A) 0.2 k/uL (1.0-4.8); Lymphocytes % (A) 1 %; MCH 33.5 pg (25.0-35.0); MCHC 34.3 g/dL (31.0-37.0); MCV 97.9 fL (80.0-100.0); Mean Platelet Volume 6.6; Monocytes # (A) 0.3 k/uL (0-1.0); Monocytes % (A) 2 %; Neutrophils # (A) 15.4 k/uL (1.3-7.7); Neutrophils % (A) 96 %; Platelet Count 245 k/uL (150-450); RBC 4.01 m/uL (4.30-5.90); WBC 15.9 k/uL (3.8-10.6)
[2019-05-12] MEDS: amLODIPine 10 MG TAB PO SCH (14:07)
[2019-05-12] MEDS: HEPARIN SODIUM,PORCINE 5,000 UNIT/ML 1 ML VIAL SQ SCH ×2 (15:52→23:57)
[2019-05-12] MEDS: methylPREDNISolone SOD SUCCI 40 MG/ML 1 ML VIAL IV SCH ×2 (15:52→23:58)
[2019-05-12] MEDS ORDERED: LEVOFLOXACIN 750MG-D5W PMX 750 MG in DEXTROSE/WATER 1 150ML.BAG IVPB SCH (19:00)
[2019-05-12] MEDS: MONTELUKAST 10 MG TAB PO SCH (21:08)
[2019-05-12] MEDS: MELATONIN 5 MG TABLET PO SCH (21:08)
[2019-05-12] MEDS: GABAPENTIN 400 MG CAP PO PRN (21:08)
[2019-05-12] MEDS: NICOTINE 14MG/24HR PATCH TRANSDERM SCH (21:08)
--- NOTE | 2019-05-13 00:10 | P.HPIM ---
History of Present Illness H&P Date: 05/12/19 Chief Complaint: Shortness of breath Patient is a 58-year-old male with a known history of COPD and chronic hypoxic respiratory failure on home oxygen 2 L where nausea cannula, history of CVA, nicotine addiction and chronic pain, hypertension and acid reflux and history of coronary artery disease and has history of [place] came to ER by EMS with complaints of increasing shortness of breath, congestion and fever and chills. Patient tried breathing treatments at home without much relief. Patient presented to ER with worsening shortness of breath. Patient was discharged from the hospital about 2 weeks ago. No complaints of nausea vomiting or abdominal pain or diarrhea. Patient does have cough without much sputum production. No headache or dizziness or lightheadedness. Patient has left shoulder sling in place. Patient fell and injured left shoulder. MRI was couple of days ago report is pending at this time. CT chest showed diffuse bullous emphysema. there is a 4 cm cavitating infiltrate in the right upper lobe posteriorly with fluid level. Consistent with lung abscess that his overall the same or slightly smaller than previous CT. It may indicate some improvement. There is decreased left pleural fluid There is increasing interstitial infiltrate in the posterior left lower lobe compared to prior exam. Right upper lobe tumor cannot be completely excluded. WBC 23, sodium 129 Review of Systems Constitutional: Subjective fevers and chills. . No generalized weakness or weight loss. Abdomen: Patient denied nausea vomiting and diarrhea and abdominal pain. Cardiovascular: Patient denies any chest pain or short of breath no palpitations. Respiratory: As have cough without sputum production. Shortness of breath Neurologic: Patient denied any numbness or tingling headache. Musculoskeletal: Patient denies any complaints of joint swelling or deformity. Left shoulder pain. Skin: Negative Psychiatric: Negative Endocrine: No heat or cold intolerance. No recent weight gain. Genitourinary: No dysuria or hematuria. 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 Past Anesthesia/Blood Transfusion Reactions: No Reported Reaction Past Psychological History: Depression, Panic Disorder Additional Psychological History / Comment(s): Lives in apartment, 17 steps to climb.Has a nebulizer. 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 Smoking Status: Current every day smoker Past Alcohol Use History: Occasional Additional Past Alcohol Use History / Comment(s): STARTED SMOKING 1975 08 PPD- QUIT 6 MONTHS AGO, PT STATED HE DRINKS AN 2 BEER a day Past Drug Use History: Marijuana Additional Drug Use History / Comment(s): PAST MARIJUANA USE IN HIS TEEN YEARS. - Past Family History Mother Family Medical History: Cancer Additional Family Medical History / Comment(s): Pt believes his Mom of Kidney Cancer Father Family Medical History: Cancer, COPD, Respiratory Disorder Additional Family Medical History / Comment(s): Melanoma Medications and Allergies Home Medications Medication Instructions Recorded Confirmed Type RX: Melatonin 5 mg PO HS 11/14/18 05/11/19 History RX: Montelukast [Singulair] 10 mg PO HS #30 tab 11/17/18 05/11/19 Rx RX: Nicotine 14Mg/24Hr Patch 1 patch TRANSDERM DAILY #30 patch 11/17/18 05/11/19 Rx [Habitrol] RX: Ipratropium-Albuterol Nebulize 3 ml INHALATION RT-QID PRN #60 12/15/18 05/11/19 Rx [Duoneb 0.5 mg-3 mg/3 ml Soln] ampul.neb Fluticasone/Salmeterol 1 puff INHALATION RT-BID 04/29/19 05/11/19 History [Fluticasone-Salmeterol 232-14] RX: Gabapentin 800 mg PO Q6H PRN 04/29/19 05/11/19 History amLODIPine [Norvasc] 10 mg PO DAILY 04/29/19 05/11/19 History Albuterol Inhaler [Ventolin Hfa 1 - 2 puff INHALATION RT-Q6H PRN 05/11/19 05/11/19 History Inhaler] Allergies Allergy/AdvReac Type Severity Reaction Status Date / Time peanut [Peanut Butter] AdvReac Nausea & Verified 05/11/19 18:26 Vomiting & Diarrhea Physical Exam Vitals: Vital Signs Temp Pulse Pulse Resp BP BP Pulse Ox 05/12/19 11:52 98 F 98 16 124/72 96 05/12/19 10:58 92 05/12/19 10:45 96 05/12/19 08:01 92 05/12/19 07:45 88 05/12/19 05:54 93 19 115/71 96 05/12/19 05:28 98 F 90 18 98/60 94 L 05/12/19 03:58 92 05/12/19 03:42 88 05/12/19 00:00 63 18 05/11/19 23:39 94 05/11/19 23:26 97 05/11/19 23:24 97 05/11/19 23:23 98.6 F 63 18 103/62 94 L 05/11/19 20:31 74 18 102/60 92 L 05/11/19 19:39 96 05/11/19 19:21 88 05/11/19 19:20 88 05/11/19 19:10 88 05/11/19 16:57 98.0 F 103 H 20 106/67 94 L Intake and Output 05/11/19 05/12/19 05/12/19 22:59 06:59 14:59 Intake Total 240 Balance 240 Intake: Oral 240 Other: Voiding Method Urinal Urinal Weight 76.204 kg PHYSICAL EXAMINATION: Patient is lying in the bed comfortably, no acute distress, awake alert and oriented.. HEENT: Normocephalic. Neck is supple. Pupils reactive. Nostrils clear. Oral cavity is moist. Ears reveal no drainage. Neck reveals no JVD, carotid bruits, or thyromegaly. CHEST EXAMINATION: Trachea is central. Symmetrical expansion. Bilateral diminished breath sounds and wheezing. CARDIAC: Normal S1, S2 with no gallops. No murmurs ABDOMEN: Soft. Bowel sounds normal. No organomegaly. No abdominal bruits. Extremities: reveal no edema. No clubbing or cyanosis Neurologically awake, alert, oriented x3 with well-coordinated movements. No focal deficits noted Skin: No rash or skin lesions. Psychiatric: Coperative. Nonsuicidal Musculoskeletal: No joint swelling or deformity. Left shoulder sling in place. Results CBC & Chem 7: 05/12/19 13:31 05/12/19 13:31 Labs: Abnormal Lab Results - Last 24 Hours (Table) 05/11/19 05/11/19 Range/Units 17:15 17:15 WBC 23.0 H (3.8-10.6) k/uL RDW 16.0 H (11.5-15.5) % Neutrophils # 21.1 H (1.3-7.7) k/uL Sodium 129 L (137-145) mmol/L Creatinine 0.51 L (0.66-1.25) mg/dL Thrombosis Risk Factor Assmnt - DVT/VTE Prophylaxis DVT/VTE Prophylaxis: Pharmacologic Prophylaxis ordered - Choose All That Apply Any of the Below Risk Factors Present?: Yes Each Factor Represents 1 point: Abnormal pulmonary function (COPD), Age 41-60 years, Serious lung disease incl. pneumonia (< 1month) Thrombosis Risk Factor Assessment Total Risk Factor Score: 3 Thrombosis Risk Factor Assessment Level: Moderate Risk Assessment and Plan Assessment: Acute severe COPD exacerbation. FEV1 of 36% of predicted. Chronic hypoxic respiratory failure on home oxygen at 280 and nausea cannula. Possible left lower lobe pneumonia/infiltrate Left shoulder injury status post fall. MRI report pending. Orthopedic surgery was consulted. Stable and improving cavitating right upper lobe abscess. 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 Coronary artery disease with history of [place]. Ongoing nicotine addiction DVT prophylaxis with heparin subcu Plan: Patient will be continued on IV steroids, DuoNeb's. Continue with antibiotics in the form of Levaquin. Pain management for left shoulder pain and orthopedic surgery was consulted for further evaluation of fracture and recent fall. MRI report is pending. Continue with other home medications and follow closely. Oxygen therapy as needed Further recommendations based on the clinical course. Prognosis is guarded with multiple medical problems and comorbid conditions. Smoking cessation has been counseled extensively. Time with Patient: Greater than 30
[2019-05-13] MEDS: IPRATROPIUM-ALBUTEROL 3 ML NEB INHALATION SCH ×6 (00:16→19:37)
[2019-05-13 07:09] LABS: Basophils % (A) 0 %; Eosinophils # (A) 0.1 k/uL (0-0.7); Eosinophils % (A) 1 %; HCT 39.1 % (39.0-53.0); HGB 13.3 gm/dL (13.0-17.5); Lymphocytes # (A) 0.1 k/uL (1.0-4.8); Lymphocytes % (A) 1 %; MCH 33.6 pg (25.0-35.0); MCV 98.8 fL (80.0-100.0); Mean Platelet Volume 6.3; Monocytes # (A) 0.5 k/uL (0-1.0); Monocytes % (A) 3 %; Neutrophils # (A) 17.6 k/uL (1.3-7.7); Neutrophils % (A) 96 %; Platelet Count 243 k/uL (150-450); RBC 3.96 m/uL (4.30-5.90); RDW 14.6 % (11.5-15.5); WBC 18.3 k/uL (3.8-10.6)
[2019-05-13 07:34] LABS: African American GFR (CKD) >90 (>60 ml/min/1.73 sqM); Anion Gap 9 mmol/L; Blood Urea Nitrogen 14 mg/dL (9-20); Calcium 9.2 mg/dL (8.4-10.2); Carbon Dioxide 24 mmol/L (22-30); Chloride 103 mmol/L (98-107); Glucose 170 mg/dL (74-99); Potassium 3.6 mmol/L (3.5-5.1); Sodium 136 mmol/L (137-145)
[2019-05-13] MEDS: GABAPENTIN 400 MG CAP PO PRN ×2 (08:25→15:33)
[2019-05-13] MEDS: amLODIPine 10 MG TAB PO SCH (08:25)
[2019-05-13] MEDS: methylPREDNISolone SOD SUCCI 40 MG/ML 1 ML VIAL IV SCH ×3 (08:25→23:56)
[2019-05-13] MEDS: SALMETEROL INHALATION SCH ×3 (08:26→23:00)
[2019-05-13] MEDS: HEPARIN SODIUM,PORCINE 5,000 UNIT/ML 1 ML VIAL SQ SCH ×4 (08:26→23:56)
[2019-05-13] MEDS: NICOTINE 14MG/24HR PATCH TRANSDERM SCH (08:26)
[2019-05-13] MEDS: FLUTICASONE INHALATION SCH ×3 (08:26→23:00)
[2019-05-13] MEDS ORDERED: NICOTINE 14MG/24HR PATCH TRANSDERM SCH (09:00)
[2019-05-13] MEDS: LEVOFLOXACIN 750 MG TAB PO SCH (20:00)
[2019-05-13] MEDS: MONTELUKAST 10 MG TAB PO SCH (20:01)
[2019-05-13] MEDS: MELATONIN 5 MG TABLET PO SCH (20:01)
[2019-05-13] MEDS: guaiFENesin SYRUP 100MG/5ML 200 MG/10 ML CUP PO PRN (20:09)
[2019-05-13 20:17] LABS: Glucose,Whole Blood 136 mg/dL (75-99)
[2019-05-13] MEDS: HYDROcodone/APAP 5-325MG 1 EACH TAB PO PRN (21:44)
[2019-05-14] MEDS: IPRATROPIUM-ALBUTEROL 3 ML NEB INHALATION SCH ×6 (00:40→19:24)
[2019-05-14] MEDS: guaiFENesin SYRUP 100MG/5ML 200 MG/10 ML CUP PO PRN ×4 (02:38→21:56)
[2019-05-14] MEDS: HYDROcodone/APAP 5-325MG 1 EACH TAB PO PRN ×4 (03:58→21:55)
[2019-05-14] MEDS: SALMETEROL INHALATION SCH ×2 (08:10→21:03)
[2019-05-14] MEDS: FLUTICASONE INHALATION SCH ×2 (08:10→21:03)
[2019-05-14] MEDS: HEPARIN SODIUM,PORCINE 5,000 UNIT/ML 1 ML VIAL SQ SCH ×2 (08:12→15:45)
[2019-05-14] MEDS: amLODIPine 10 MG TAB PO SCH (08:12)
[2019-05-14] MEDS: NICOTINE 14MG/24HR PATCH TRANSDERM SCH (08:12)
[2019-05-14] MEDS: methylPREDNISolone SOD SUCCI 40 MG/ML 1 ML VIAL IV SCH ×2 (08:13→15:44)
[2019-05-14] MEDS: GABAPENTIN 400 MG CAP PO PRN ×3 (08:15→21:03)
--- NOTE | 2019-05-14 08:52 | P.CNOR ---
History of Present Illness - HPI Consult date: 05/14/19 Consult reason: joint pain (Left shoulder) History of present illness: This is a 58-year-old gentleman admitted with shortness of breath. Patient has a known history of COPD and chronic hypoxic respiratory failure on home oxygen 2 L where nausea cannula, history of CVA, nicotine addiction and chronic pain, hypertension and acid reflux and history of coronary artery disease and has history of [place] came to ER by EMS with complaints of increasing shortness of breath, congestion and fever and chills. Patient tried breathing treatments at home without much relief. Patient presented to ER with worsening shortness of breath. Patient was discharged from the hospital about 2 weeks ago. No complaints of nausea vomiting or abdominal pain or diarrhea. Patient does have cough without much sputum production. No headache or dizziness or lightheadedness. The patient has complaint of severe left shoulder pain. He did have an appointment in our office on 04/23/2019 but was unable to make the appointment secondary to illness. His primary care physician ordered an MRI which revealed evidence of avascular necrosis left humeral head. We are consulted for orthopedic evaluation. 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 Past Anesthesia/Blood Transfusion Reactions: No Reported Reaction Past Psychological History: Depression, Panic Disorder Additional Psychological History / Comment(s): Lives in apartment, 17 steps to climb.Has a nebulizer. 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 Smoking Status: Current every day smoker Past Alcohol Use History: Occasional Additional Past Alcohol Use History / Comment(s): STARTED SMOKING 1975 1 PPD- QUIT 6 MONTHS AGO, PT STATED HE DRINKS AN 2 BEER a day Past Drug Use History: Marijuana Additional Drug Use History / Comment(s): PAST MARIJUANA USE IN HIS TEEN YEARS. - Past Family History Mother Family Medical History: Cancer Additional Family Medical History / Comment(s): Pt believes his Mom of Kidney Cancer Father Family Medical History: Cancer, COPD, Respiratory Disorder Additional Family Medical History / Comment(s): Melanoma Medications and Allergies Home Medications Medication Instructions Recorded Confirmed Type Melatonin 5 mg PO HS 11/14/18 05/11/19 History Montelukast [Singulair] 10 mg PO HS #30 tab 11/17/18 05/11/19 Rx Nicotine 14Mg/24Hr Patch [Habitrol] 1 patch TRANSDERM DAILY #30 patch 11/17/18 05/11/19 Rx Ipratropium-Albuterol Nebulize 3 ml INHALATION RT-QID PRN #60 12/15/18 05/11/19 Rx [Duoneb 0.5 mg-3 mg/3 ml Soln] ampul.neb Fluticasone/Salmeterol 1 puff INHALATION RT-BID 04/29/19 05/11/19 History [Fluticasone-Salmeterol 232-14] Gabapentin 800 mg PO Q6H PRN 04/29/19 05/11/19 History amLODIPine [Norvasc] 10 mg PO DAILY 04/29/19 05/11/19 History Albuterol Inhaler [Ventolin Hfa 1 - 2 puff INHALATION RT-Q6H PRN 05/11/19 05/11/19 History Inhaler] Allergies Allergy/AdvReac Type Severity Reaction Status Date / Time peanut [Peanut Butter] AdvReac Nausea & Verified 05/11/19 18:26 Vomiting & Diarrhea Physical Examination This is a 58-year-old gentleman in no acute distress. He is alert and oriented 3. Exam of the head neck reveal no obvious deformity. There is a prosthetic right eye noted. Exam of the upper extremities reveals a shoulder immobilizer in place. The immobilizer is taped together in areas where it is falling apart. He has full finger motion without difficulty or pain. There is pain with palpation about the shoulder. Neurovascular status the upper extremity is intact. Exam of the lower extremities is unremarkable. He has full foot and ankle motion bilaterally. Results MRI of the left shoulder dated 05/08/2019 reveals findings consistent with avascular necrosis of the humeral head. There is collapse of the humeral head a t the glenohumeral joint. No obvious displaced fracture noted. - Labs Labs: Abnormal Lab Results - Last 24 Hours (Table) 05/13/19 Range/Units 20:15 POC Glucose (mg/dL) 136 H (75-99) mg/dL Microbiology - Last 24 Hours (Table) 05/11/19 19:45 Blood Culture - Preliminary Blood No Growth after 48 hours 05/12/19 15:46 Gram Stain - Preliminary Sputum H & H 05/11/19 05/12/19 05/13/19 Range/Units 17:15 13:31 06:50 Hgb 14.8 13.4 13.3 (13.0-17.5) gm/dL Hct 42.7 39.2 39.1 (39.0-53.0) % Result Diagrams: 05/13/19 06:50 05/13/19 06:50 Assessment and Plan (1) Avascular necrosis of left humeral head Current Visit: Yes Status: Acute Code(s): M87.022 - IDIOPATHIC ASEPTIC NECROSIS OF LEFT HUMERUS SNOMED Code(s): 27258327 (2) COPD exacerbation Current Visit: Yes Status: Acute Code(s): J44.1 - CHRONIC OBSTRUCTIVE PULMONARY DISEASE W (ACUTE) EXACERBATION SNOMED Code(s): 321056243 (3) Failure of outpatient treatment Current Visit: Yes Status: Acute Code(s): Z78.9 - OTHER SPECIFIED HEALTH STATUS SNOMED Code(s): 646039098 (4) Pneumonia Current Visit: Yes Status: Acute Code(s): J18.9 - PNEUMONIA, UNSPECIFIED ORGANISM SNOMED Code(s): 172461156 (5) Acute exacerbation of chronic obstructive airways disease Current Visit: No Status: Acute Code(s): J44.1 - CHRONIC OBSTRUCTIVE PULMONARY DISEASE W (ACUTE) EXACERBATION SNOMED Code(s): 301783466 Plan: The clinical and radiographic findings are discussed with the patient. It is discussed that the definitive treatment is a shoulder replacement. The patient's health at this time is a contraindication to surgical intervention. We will continue immobilization and ask DME to either repair or replace the shoulder immobilizer. We will see him back in the office in 1 week for reevaluation. Patient understands that he will need to be cleared medically prior to any discussion of surgical intervention such as total shoulder replacement. I recommend that he have some pain management but we'll defer to internal medicine with his multiple medical and respiratory issues.
--- NOTE | 2019-05-14 16:58 | P.CNPUL ---
History of Present Illness Consult date: 05/13/19 Reason for consult: COPD, pneumonia History of present illness: There is a pleasant 58-year-old gentleman who follows with Dr. Rola Cano as his primary care physician. 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 He does have a history of chronic obstructive pulmonary disease and is oxygen dependent at 2 L/m per nasal cannula. Previous FEV1 value in 2017 is 36% of predicted. He was recently hospitalized for an acute right upper lobe pneumonia. Computed tomography scan of the chest revealed an extensive right upper lobe consolidation secondary to probable fungal etiology. His sputum was positive for Aspergillus. He has been treated with Sporanox and Augmentin and is here for post hospital follow-up. Note that the patient a cavitary right upper lobe lesion with a fungus was positive. Based on that, the patient was discharged home on itraconazole 200 mg by mouth daily. He was seen in the office appr oximately 2 weeks ago and he was doing well and there was interval improvement in the right upper lobe abnormality. The patient comes in again to the hospital and he has been complaining of increased H shortness of breath, cough congestion chest tightness and wheezing. Follow-up CAT scan of the chest was done in comparison, the right upper lobe cavitary infiltration is improved and a fungus ball seems to be smaller in size. There is a vague left lung infiltration compared to the prior CAT scan of the chest from March 2019. His current white cell count is at 18.3. Rest of the blood work is all within normal limits. Review of Systems Constitutional Constitutional: no excess weight gain, no excess weight loss, no loss of appetite, no fever, no fatigue, diminished activity, fatigue Eyes Eyes: no eye pain, no blurry vision, no eye redness, no eye itchiness, no eye swelling, no eye discharge (Right eye prosthetic.) ENMT ENMT: no ear pain, no ear discharge, no hearing loss, no sinus pressure, no swelling, no sore throat, no hoarseness, no mouth lesions, no nasal discharge, congestion Cardiovascular Cardiovascular: no chest pain, no rapid heart rate, no cyanosis, no pallor Respiratory Respiratory: no pain with respiration, normal breathing sounds, normal respiration rate, cough, wheezing, chest tightness, difficulty breathing Gastrointestinal GI: no difficulty swallowing, no abdominal pain, no nausea, no vomiting, no diarrhea, no constipation, no blood in stools Genitourinary General: no blood in urine, no pain during urination, no increased frequency of urination, no voiding urgency Musculoskeletal Musculoskeletal: no soft tissue swelling, no joint swelling, no limited motion, no myalgia Skin Skin: no pain, no itchiness, no skin redness, no rash, no hives, no skin lesions, no swelling, no bruising Neurological symptoms Neuro: no numbness, no weakness, no tingling, no burning, no shooting pain, no headache, no diziness, no loss of consciousness Endocrine Endocrine: no increased thirst, no temperature intolerance Psychiatric Psych: no depression, no sleep disturbances, feeling safe in relationship, no alcohol abuse Hematologic/Lymphatic Hematologic/Lymphatic no swollen glands Allergic/Immunologic Allergy/Immunologic: no sinus pressure, no itching Past Medical History Past Medical History: Chest Pain / Angina, COPD, CVA/TIA, Hypertension, Myocardial Infarction ([place]), Pneumonia, Respiratory Disorder, Skin Disorder Additional Past Medical History / Comment(s): COPD with an FEV1 of 36% of predicted based on his spirometry from 2017, chronic hypoxic respiratory failure, history of CVA, chronic smoker, chronic pain syndrome, hypertension, acid reflux, 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 Past Anesthesia/Blood Transfusion Reactions: No Reported Reaction Past Psychological History: Depression, Panic Disorder Additional Psychological History / Comment(s): Lives in apartment, 17 steps to climb.Has a nebulizer. 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 Smoking Status: Current every day smoker Past Alcohol Use History: Occasional Additional Past Alcohol Use History / Comment(s): STARTED SMOKING 1975 1 PPD- QUIT 6 MONTHS AGO, PT STATED HE DRINKS AN 2 BEER a day Past Drug Use History: Marijuana Additional Drug Use History / Comment(s): PAST MARIJUANA USE IN HIS TEEN YEARS. - Past Family History Mother Family Medical History: Cancer Additional Family Medical History / Comment(s): Pt believes his Mom of Kidney Cancer Father Family Medical History: Cancer, COPD, Respiratory Disorder Additional Family Medical History / Comment(s): Melanoma Medications and Allergies Home Medications Medication Instructions Recorded Confirmed Type Melatonin 5 mg PO HS 11/14/18 05/11/19 History Montelukast [Singulair] 10 mg PO HS #30 tab 11/17/18 05/11/19 Rx Nicotine 14Mg/24Hr Patch [Habitrol] 1 patch TRANSDERM DAILY #30 patch 11/17/18 05/11/19 Rx Ipratropium-Albuterol Nebulize 3 ml INHALATION RT-QID PRN #60 12/15/18 05/11/19 Rx [Duoneb 0.5 mg-3 mg/3 ml Soln] ampul.neb Fluticasone/Salmeterol 1 puff INHALATION RT-BID 04/29/19 05/11/19 History [Fluticasone-Salmeterol 232-14] Gabapentin 800 mg PO Q6H PRN 04/29/19 05/11/19 History amLODIPine [Norvasc] 10 mg PO DAILY 04/29/19 05/11/19 History Albuterol Inhaler [Ventolin Hfa 1 - 2 puff INHALATION RT-Q6H PRN 05/11/19 05/11/19 History Inhaler] Allergies Allergy/AdvReac Type Severity Reaction Status Date / Time peanut [Peanut Butter] AdvReac Nausea & Verified 05/11/19 18:26 Vomiting & Diarrhea Physical Exam Vitals: Vital Signs Temp Pulse Pulse Resp BP Pulse Ox 05/13/19 16:21 96 05/13/19 16:08 96 05/13/19 12:17 88 05/13/19 12:01 88 05/13/19 11:59 97.8 F 88 20 115/68 98 05/13/19 08:47 84 05/13/19 08:33 84 05/13/19 04:36 97.6 F 89 20 121/72 97 05/13/19 04:22 80 05/13/19 04:05 84 05/13/19 00:29 80 05/13/19 00:17 83 96 05/12/19 19:51 72 18 05/12/19 19:41 71 18 05/12/19 19:23 97.8 F 96 16 99/57 96 05/12/19 19:16 95 Intake and Output 05/13/19 05/13/19 05/13/19 06:59 14:59 22:59 Intake Total 600 Balance 600 Intake: Oral 600 Other: Voiding Method Toilet Toilet # Voids 2 2 Constitutional General Appearance: appears older than stated age Level of Distress: chronically ill Ambulation: limited ambulation ENMT Nasal Mucosa: no discharge, pale, swollen, edematous Septum: not markedly deformed Turbinates: normal turbinate Lips, Teeth, and Gums: normal lips, normal dentition, normal gums Oral Mucosa: no ulcer, no mass, no pallor, moist, no cyanosis, no inflammation, no swelling, no rash, no leukoplakia Tongue: no erythema, no lesions, no enlargement, no swelling, no deviation Posterior pharynx: no enlargement, no exudate, no white patches, no ulcers, no mass, erythema Neck Neck: supple, trachea midline, no masses, Full ROM Thyroid: no enlargement, non-tender, no nodules Jugular Veins: normal jugular venous pressure Lungs Respiratory effort: dyspneic Inspection: normal chest wall expansion, normal curve, no deformity, no tenderness, no swelling Auscultation: no rales/crackles, no rhonchi, wheezing,expiratory,bilaterally,midlung brown Cardiovascular Precordial Exam: non displaced focal PMI, no heaves, no precordial thrills Heart Rate And Rhythm: normal heart rate and rhythm Heart Sounds: normal s1, no physiologically split S2, no pericardial friction rub, no gallop, no click Systolic Murmur: no systolic murmurs Observation/Palpation of peripheral vascular system: no cyanosis, no edema, normal dorsalis pedis, normal posterior tibialis Abdomen Inspection and Palpation: soft, non-distended, no tenderness, no masses Liver: non-tender, no hepatomegaly Spleen: non-tender, no splenomegaly Bowel Sounds: normal, no abdominal bruits Lymphatic: no cervical LAD, no supraclavicular LAD Musculoskeletal: Motor Strength and Tone: normal motor strength, normal bulk, normal tone Gait and Station: normal gait Joints, Bones, and Muscles: normal movement of all extremities, no bony abnormalities, no contractures, no malalignment, no tenderness Extremities Inspection/Palpation of digits and nails: no clubbing, no cyanosis, no petechiae, no infection, no nodular lesions, no ischemia, no edema (Left clavicle fracture in sling) Skin Inspection and palpation: no rash, no lesions, no jaundice, normal turgor Neurologic Mental Status/Orientation: oriented to person, oriented to place, oriented to problem/situation, oriented to time Mood/Affect: normal mood, normal affect Results - Laboratory Findings CBC and BMP: 05/13/19 06:50 05/13/19 06:50 Abnormal lab findings: Abnormal Labs 05/11/19 05/11/19 05/12/19 17:15 17:15 13:31 WBC 23.0 H 15.9 H RBC 4.01 L RDW 16.0 H 16.0 H Neutrophils # 21.1 H 15.4 H Lymphocytes # 0.2 L Sodium 129 L Creatinine 0.51 L Glucose 05/12/19 05/13/19 05/13/19 13:31 06:50 06:50 WBC 18.3 H RBC 3.96 L RDW Neutrophils # 17.6 H Lymphocytes # 0.1 L Sodium 132 L 136 L Creatinine 0.42 L 0.43 L Glucose 181 H 170 H - Diagnostic Findings Chest x-ray: image reviewed CT scan - chest: image reviewed Assessment and Plan Plan: #1 Acute on chronic hypoxic respiratory failure secondary to right upper lobe consolidation felt to be fungal in nature with positive aspergillis fumigatus in the sputum and Aspergillus fumigatus IgE level high. The patient was recently discharged on Sporanox and Augmentin. Legionella ruled out. Subsequent CAT scan of the chest shows some improvement in the right upper lobe cavitary infiltration and fungus ball. Consider new onset left lung pneumonia knowing that there is some hazy infiltration of the left lung. #2 Acute exacerbation of severe oxygen dependent chronic obstructive pulmonary disease with an FEV1 value of 66% of predicted. #3 Chronic and ongoing tobacco dependence. #4 Chronic pain syndrome with recent injury to left shoulder, currently in a sling. #5 History of CVA/hemorrhage. 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 #7 Acid reflux disease. #8 History of shingles. 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 #10 History of noncompliance. 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 Continue Levaquin. Continue DuoNeb the residents on the clock. IV Solu Medrol 4 mg every 8 hours. We'll continue to follow. I'm pleased to see some improvement in the right upper lobe changes. He was reassured regarding this findings. He is going to also on orthopedic evaluation regarding his ongoing left shoulder pain.
--- NOTE | 2019-05-14 17:01 | P.PN ---
Subjective Progress Note Date: 05/14/19 There is a pleasant 58-year-old gentleman who follows with Dr. Rola Cano as his primary care physician. 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 He does have a history of chronic obstructive pulmonary disease and is oxygen dependent at 2 L/m per nasal cannula. Previous FEV1 value in 2017 is 36% of predicted. He was recently hospitalized for an acute right upper lobe pneumonia. Computed tomography scan of the chest revealed an extensive right upper lobe consolidati on secondary to probable fungal etiology. His sputum was positive for Aspergillus. He has been treated with Sporanox and Augmentin and is here for post hospital follow-up. Note that the patient a cavitary right upper lobe lesion with a fungus was positive. Based on that, the patient was discharged home on itraconazole 200 mg by mouth daily. He was seen in the office approximately 2 weeks ago and he was doing well and there was interval improvement in the right upper lobe abnormality. The patient comes in again to the hospital and he has been complaining of increased H shortness of breath, cough congestion chest tightness and wheezing. Follow-up CAT scan of the chest was done in comparison, the right upper lobe cavitary infiltration is improved and a fungus ball seems to be smaller in size. There is a vague left lung infiltration compared to the prior CAT scan of the chest from March 2019. His current white cell count is at 18.3. Rest of the blood work is all within normal limits. On 05/14/2019 the patient is being seen for a follow-up. Is feeling better. Less short of breath compared to yesterday. Gradually improving. His back on a combination of itraconazole and Levaquin. His that wasn't taking 0.3 which is improved compared to a few days back. Rest of the blood work and electrodes are all within normal limits. He remains on IV Solu-Medrol. No fever. No chills. A repeat sputum Gram stain and culture has been ordered and the sputum Gram stain showing gram-negative bacillus. Final cultures and sensitivities pending for now. We'll continue to follow. No new complaints otherwise for today. Objective - Vital Signs Vital signs: Vital Signs Temp 98 F 05/14/19 11:36 Pulse 99 05/14/19 15:30 Resp 22 05/14/19 11:36 BP 138/66 05/14/19 11:36 Pulse Ox 96 05/14/19 11:36 Intake & Output 05/13/19 05/14/19 05/14/19 18:59 06:59 18:59 Intake Total 1180 Balance 1180 Intake: Oral 1180 Other: Voiding Method Toilet Toilet Toilet # Voids 2 3 2 - Exam Constitutional General Appearance: appears older than stated age, the patient has a cushingoid features related to chronic and ongoing steroid use. Level of Distress: chronically ill Ambulation: limited ambulation ENMT Nasal Mucosa: no discharge, pale, swollen, edematous Septum: not markedly deformed Turbinates: normal turbinate Lips, Teeth, and Gums: normal lips, normal dentition, normal gums Oral Mucosa: no ulcer, no mass, no pallor, moist, no cyanosis, no inflammation, no swelling, no rash, no leukoplakia Tongue: no erythema, no lesions, no enlargement, no swelling, no deviation Posterior pharynx: no enlargement, no exudate, no white patches, no ulcers, no mass, erythema Neck Neck: supple, trachea midline, no masses, Full ROM Thyroid: no enlargement, non-tender, no nodules Jugular Veins: normal jugular venous pressure Lungs Respiratory effort: dyspneic, and there is marked diminished breath sounds bilaterally throughout the lung brown more so in the midlung brown. Scattered rhonchi. Inspection: normal chest wall expansion, normal curve, no deformity, no tenderness, no swelling Auscultation: no rales/crackles, no rhonchi, wheezing,expiratory,bilaterally,midlung brown Cardiovascular Precordial Exam: non displaced focal PMI, no heaves, no precordial thrills Heart Rate And Rhythm: normal heart rate and rhythm Heart Sounds: normal s1, no physiologically split S2, no pericardial friction rub, no gallop, no click Systolic Murmur: no systolic murmurs Observation/Palpation of peripheral vascular system: no cyanosis, no edema, normal dorsalis pedis, normal posterior tibialis Abdomen Inspection and Palpation: soft, non-distended, no tenderness, no masses Liver: non-tender, no hepatomegaly Spleen: non-tender, no splenomegaly Bowel Sounds: normal, no abdominal bruits Lymphatic: no cervical LAD, no supraclavicular LAD Musculoskeletal: Motor Strength and Tone: normal motor strength, normal bulk, normal tone Gait and Station: normal gait Joints, Bones, and Muscles: normal movement of all extremities, no bony abno rmalities, no contractures, no malalignment, no tenderness Extremities Inspection/Palpation of digits and nails: no clubbing, no cyanosis, no petechiae, no infection, no nodular lesions, no ischemia, no edema (Left clavicle fracture in sling) Skin Inspection and palpation: no rash, no lesions, no jaundice, normal turgor Neurologic Mental Status/Orientation: oriented to person, oriented to place, oriented to problem/situation, oriented to time Mood/Affect: normal mood, normal affect - Labs CBC & Chem 7: 05/13/19 06:50 05/13/19 06:50 Labs: Abnormal Lab Results - Last 24 Hours (Table) 05/13/19 Range/Units 20:15 POC Glucose (mg/dL) 136 H (75-99) mg/dL Microbiology - Last 24 Hours (Table) 05/12/19 15:46 Gram Stain - Preliminary Sputum Sputum Culture - Preliminary Gram Neg Bacilli 05/11/19 19:45 Blood Culture - Preliminary Blood No Growth after 48 hours Assessment and Plan Plan: #1 Acute on chronic hypoxic respiratory failure secondary to right upper lobe consolidation felt to be fungal in nature with positive aspergillis fumigatus in the sputum and Aspergillus fumigatus IgE level high. The patient was recently discharged on Sporanox and Augmentin. Legionella ruled out. Subsequent CAT scan of the chest shows some improvement in the right upper lobe cavitary infiltration and fungus ball. Consider new onset left lung pneumonia knowing that there is some hazy infiltration of the left lung. #2 Acute exacerbation of severe oxygen dependent chronic obstructive pulmonary disease with an FEV1 value of 66% of predicted. #3 Chronic and ongoing tobacco dependence. #4 Chronic pain syndrome with recent injury to left shoulder, currently in a sling. #5 History of CVA/hemorrhage. 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 #7 Acid reflux disease. #8 History of shingles. 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 #10 History of noncompliance. 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 Rule out superinfection. Continue itraconazole. Continue Levaquin. Further antibiotic adjustments will be done based on the cultures and sensitivities. Clinically improving. We'll continue to follow. We'll keep the patient IV Solu Medrol for now.
[2019-05-14] MEDS: ITRACONAZOLE 100 MG CAP PO SCH (17:53)
[2019-05-14] MEDS: LEVOFLOXACIN 750 MG TAB PO SCH (21:03)
[2019-05-14] MEDS: MELATONIN 5 MG TABLET PO SCH (21:03)
[2019-05-14] MEDS: MONTELUKAST 10 MG TAB PO SCH (21:04)
--- NOTE | 2019-05-14 22:14 | P.PN ---
Subjective Progress Note Date: 05/13/19 Principal diagnosis: Acute COPD exacerbation Pneumonia Left shoulder fracture Patient is a 58-year-old male with a known history of COPD and chronic hypoxic respiratory failure on home oxygen 2 L where nausea cannula, history of CVA, nicotine addiction and chronic pain, hypertension and acid reflux and history of coronary artery disease and has history of [place] came to ER by EMS with complaints of increasing shortness of breath, congestion and fever and chills. Patient tried breathing treatments at home without much relief. Patient presented to ER with worsening shortness of breath. Patient was discharged from the hospital about 2 weeks ago. No complaints of nausea vomiting or abdominal pain or diarrhea. Patient does have cough without much sputum production. No headache or dizziness or lightheadedness. Patient has left shoulder sling in place. Patient fell and injured left shoulder. MRI was couple of days ago report is pending at this time. CT chest showed diffuse bullous emphysema. there is a 4 cm cavitating infiltrate in the right upper lobe posteriorly with fluid level. Consistent with lung abscess that his overall the same or slightly smaller than previous CT. It may indicate some improvement. There is decreased left pleural fluid There is increasing interstitial infiltrate in the posterior left lower lobe compared to prior exam. Right upper lobe tumor cannot be completely excluded. WBC 23, sodium 129 05/13/2019 Patient denied any complaints of chest pain. Currently sitting in the chair comfortable. Still complaining of shortness of breath. Also complaining of left shoulder pain. Laboratory data reviewed. Orthopedic surgery recommends to follow-up as an outpatient once clinically stable. Currently being continued on antibiotics the form of Levaquin. Continued on DuoNeb's and IV steroids. Pulmonary has seen the patient. Patient has been afebrile. Current medications reviewed. Objective - Vital Signs Vital signs: Vital Signs Temp 97.8 F 05/13/19 11:59 Pulse 88 05/13/19 12:17 Resp 20 05/13/19 11:59 BP 115/68 05/13/19 11:59 Pulse Ox 98 05/13/19 11:59 Intake & Output 05/12/19 05/13/19 05/13/19 18:59 06:59 18:59 Intake Total 1800 Balance 1800 Intake: Oral 1800 Other: Voiding Method Urinal Toilet Toilet # Voids 2 2 - Exam PHYSICAL EXAMINATION: Patient is lying in the bed comfortably, no acute distress, awake alert and oriented.. HEENT: Normocephalic. Neck is supple. Pupils reactive. Nostrils clear. Oral cavity is moist. Ears reveal no drainage. Neck reveals no JVD, carotid bruits, or thyromegaly. CHEST EXAMINATION: Trachea is central. Symmetrical expansion. Bilateral diminished breath sounds and wheezing. CARDIAC: Normal S1, S2 with no gallops. No murmurs ABDOMEN: Soft. Bowel sounds normal. No organomegaly. No abdominal bruits. Extremities: reveal no edema. No clubbing or cyanosis Neurologically awake, alert, oriented x3 with well-coordinated movements. No focal deficits noted Skin: No rash or skin lesions. Psychiatric: Coperative. Nonsuicidal Musculoskeletal: No joint swelling or deformity. Left shoulder sling in place. - Labs CBC & Chem 7: 05/13/19 06:50 05/13/19 06:50 Labs: Abnormal Lab Results - Last 24 Hours (Table) 05/12/19 05/12/19 05/13/19 Range/Units 13:31 13:31 06:50 WBC 15.9 H 18.3 H (3.8-10.6) k/uL RBC 4.01 L 3.96 L (4.30-5.90) m/uL RDW 16.0 H (11.5-15.5) % Neutrophils # 15.4 H 17.6 H (1.3-7.7) k/uL Lymphocytes # 0.2 L 0.1 L (1.0-4.8) k/uL Sodium 132 L (137-145) mmol/L Creatinine 0.42 L (0.66-1.25) mg/dL Glucose 181 H (74-99) mg/dL 05/13/19 Range/Units 06:50 WBC (3.8-10.6) k/uL RBC (4.30-5.90) m/uL RDW (11.5-15.5) % Neutrophils # (1.3-7.7) k/uL Lymphocytes # (1.0-4.8) k/uL Sodium 136 L (137-145) mmol/L Creatinine 0.43 L (0.66-1.25) mg/dL Glucose 170 H (74-99) mg/dL Microbiology - Last 24 Hours (Table) 05/11/19 19:45 Blood Culture - Preliminary Blood No Growth after 24 hours Assessment and Plan Assessment: Acute severe COPD exacerbation. FEV1 of 36% of predicted. Chronic hypoxic respiratory failure on home oxygen at 2l via nausea cannula. Possible left lower lobe pneumonia/infiltrate Left shoulder injury status post fall. MRI report pending. Orthopedic surgery was consulted. Recommended outpatient follow-up in 1 week. Stable and improving cavitating right upper lobe abscess. 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 Coronary artery disease with history of [place]. Ongoing nicotine addiction DVT prophylaxis with heparin subcu Plan: Patient will be continued on IV steroids, DuoNeb's. Continue with antibiotics in the form of Levaquin. Pain management for left shoulder pain and orthopedic surgery was consulted for further evaluation of fracture and recent fall. MRI report is pending. Continue with other home medications and follow closely. Oxygen therapy as needed Further recommendations based on the clinical course. Prognosis is guarded with multiple medical problems and comorbid conditions. Smoking cessation has been counseled extensively. Time with Patient: Greater than 30
--- NOTE | 2019-05-14 22:19 | P.PN ---
Subjective Progress Note Date: 05/14/19 Principal diagnosis: Acute COPD exacerbation Pneumonia Left shoulder fracture Patient is a 58-year-old male with a known history of COPD and chronic hypoxic respiratory failure on home oxygen 2 L where nausea cannula, history of CVA, nicotine addiction and chronic pain, hypertension and acid reflux and history of coronary artery disease and has history of [place] came to ER by EMS with complaints of increasing shortness of breath, congestion and fever and chills. Patient tried breathing treatments at home without much relief. Patient presented to ER with worsening shortness of breath. Patient was discharged from the hospital about 2 weeks ago. No complaints of nausea vomiting or abdominal pain or diarrhea. Patient does have cough without much sputum production. No headache or dizziness or lightheadedness. Patient has left shoulder sling in place. Patient fell and injured left shoulder. MRI was couple of days ago report is pending at this time. CT chest showed diffuse bullous emphysema. there is a 4 cm cavitating infiltrate in the right upper lobe posteriorly with fluid level. Consistent with lung abscess that his overall the same or slightly smaller than previous CT. It may indicate some improvement. There is decreased left pleural fluid There is increasing interstitial infiltrate in the posterior left lower lobe compared to prior exam. Right upper lobe tumor cannot be completely excluded. WBC 23, sodium 129 05/13/2019 Patient denied any complaints of chest pain. Currently sitting in the chair comfortable. Still complaining of shortness of breath. Also complaining of left shoulder pain. Laboratory data reviewed. Orthopedic surgery recommends to follow-up as an outpatient once clinically stable. Currently being continued on antibiotics the form of Levaquin. Continued on DuoNeb's and IV steroids. Pulmonary has seen the patient. Patient has been afebrile. 05/14/2019 Patient is currently sitting in the chair. Still complaining of shortness of breath and also left shoulder pain. Currently on antibiotics in the form of Levaquin due to left lower lobe pneumonia. Sputum culture showed gram-negative bacilli Patient is Also on Hydrocortisone Due To Right Upper Lobe Cavitary Lesion Thought to Be Fungal infection. Sodium level improved otherwise. Patient is being continued on IV steroids, breathing treatments. Follow final sputum cultures. Patient has been afebrile otherwise. Orthopedic surgery recommends outpatient follow-up in 1 week for left shoulder surgery. Current medications reviewed. Objective - Vital Signs Vital signs: Vital Signs Temp 97.7 F 05/14/19 21:00 Pulse 96 09/26/19 21:00 Resp 16 05/14/19 21:00 BP 127/71 05/14/19 21:00 Pulse Ox 94 L 05/14/19 21:00 Intake & Output 05/14/19 05/14/19 05/15/19 06:59 18:59 06:59 Intake Total 1180 840 Balance 1180 840 Intake: Oral 1180 840 Other: Voiding Method Toilet Toilet Toilet # Voids 3 2 1 - Exam PHYSICAL EXAMINATION: Patient is lying in the bed comfortably, no acute distress, awake alert and oriented.. HEENT: Normocephalic. Neck is supple. Pupils reactive. Nostrils clear. Oral cavity is moist. Ears reveal no drainage. Neck reveals no JVD, carotid bruits, or thyromegaly. CHEST EXAMINATION: Trachea is central. Symmetrical expansion. Bilateral diminished breath sounds and wheezing. CARDIAC: Normal S1, S2 with no gallops. No murmurs ABDOMEN: Soft. Bowel sounds normal. No organomegaly. No abdominal bruits. Extremities: reveal no edema. No clubbing or cyanosis Neurologically awake, alert, oriented x3 with well-coordinated movements. No focal deficits noted Skin: No rash or skin lesions. Psychiatric: Coperative. Nonsuicidal Musculoskeletal: No joint swelling or deformity. Left shoulder sling in place. - Labs CBC & Chem 7: 05/13/19 06:50 05/13/19 06:50 Labs: Microbiology - Last 24 Hours (Table) 05/11/19 19:45 Blood Culture - Preliminary Blood No Growth after 72 hours 05/12/19 15:46 Gram Stain - Preliminary Sputum Sputum Culture - Preliminary Gram Neg Bacilli Assessment and Plan Assessment: Acute severe COPD exacerbation. FEV1 of 36% of predicted. Chronic hypoxic respiratory failure on home oxygen at 2l via nausea cannula. Possible left lower lobe pneumonia/infiltrate. Sputum culture showed gram- negative bacilli. Follow final culture report. Left shoulder injury status post fall. MRI report pending. Orthopedic surgery was consulted. Recommended outpatient follow-up in 1 week. Stable and improving cavitating right upper lobe abscess. Thought to be fungal infection/fungal ball. Continue with itraconazole. 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 Coronary artery disease with history of [place]. Ongoing nicotine addiction DVT prophylaxis with heparin subcu Plan: Patient will be continued on IV steroids, DuoNeb's. Continue with antibiotics in the form of Levaquin. added Itraconazole. Pain management for left shoulder pain and orthopedic surgery was consulted for further evaluation of fracture and recent fall. MRI report is pending. Continue with other home medications and follow closely. Oxygen therapy as needed Further recommendations based on the clinical course. Prognosis is guarded with multiple medical problems and comorbid conditions. Smoking cessation has been counseled extensively. Time with Patient: Greater than 30
[2019-05-15] MEDS: IPRATROPIUM-ALBUTEROL 3 ML NEB INHALATION SCH ×7 (00:09→23:23)
[2019-05-15] MEDS: HEPARIN SODIUM,PORCINE 5,000 UNIT/ML 1 ML VIAL SQ SCH ×4 (00:39→23:30)
[2019-05-15] MEDS: methylPREDNISolone SOD SUCCI 40 MG/ML 1 ML VIAL IV SCH ×4 (00:39→23:30)
[2019-05-15] MEDS: guaiFENesin SYRUP 100MG/5ML 200 MG/10 ML CUP PO PRN ×4 (04:25→21:36)
[2019-05-15] MEDS: GABAPENTIN 400 MG CAP PO PRN ×4 (04:26→21:36)
[2019-05-15] MEDS: HYDROcodone/APAP 5-325MG 1 EACH TAB PO PRN ×4 (04:26→21:36)
[2019-05-15] MEDS: NICOTINE 14MG/24HR PATCH TRANSDERM SCH (07:34)
[2019-05-15] MEDS: amLODIPine 10 MG TAB PO SCH (07:34)
[2019-05-15] MEDS: SALMETEROL INHALATION SCH ×2 (07:35→20:49)
[2019-05-15] MEDS: FLUTICASONE INHALATION SCH ×2 (07:35→20:49)
[2019-05-15] MEDS: ITRACONAZOLE 100 MG CAP PO SCH (07:35)
[2019-05-15 08:19] LABS: Basophils # (A) 0.1 k/uL (0-0.2); Basophils % (A) 1 %; Eosinophils # (A) 0.1 k/uL (0-0.7); Eosinophils % (A) 0 %; HCT 41.3 % (39.0-53.0); HGB 13.5 gm/dL (13.0-17.5); Lymphocytes # (A) 0.1 k/uL (1.0-4.8); Lymphocytes % (A) 1 %; MCH 32.6 pg (25.0-35.0); MCHC 32.6 g/dL (31.0-37.0); MCV 100.1 fL (80.0-100.0); Macrocytosis Slight; Mean Platelet Volume 6.4; Monocytes # (A) 0.4 k/uL (0-1.0); Monocytes % (A) 3 %; Neutrophils # (A) 10.4 k/uL (1.3-7.7); Neutrophils % (A) 94 %; Platelet Count 300 k/uL (150-450); RBC 4.13 m/uL (4.30-5.90); RDW 14.4 % (11.5-15.5)
[2019-05-15 08:41] LABS: African American GFR (CKD) >90 (>60 ml/min/1.73 sqM); Anion Gap 6 mmol/L; Blood Urea Nitrogen 17 mg/dL (9-20); Calcium 9.4 mg/dL (8.4-10.2); Carbon Dioxide 29 mmol/L (22-30); Chloride 100 mmol/L (98-107); Glucose 185 mg/dL (74-99); Potassium 3.9 mmol/L (3.5-5.1); Sodium 135 mmol/L (137-145)
--- NOTE | 2019-05-15 11:17 | CDI ---
Documentation Clarification Form Date: 05/15/2019 11:03:51 AM From: Mary Jo FarleyRubyLORRIE pretty, CCDS Admit Date: 05/11/2019 9:09:00 PM Patient Name: Junior Mallory Visit Number: [id number] Discharge Date: ATTENTION: The Clinical Documentation Specialists (CDI) and [facility] Coding Staff appreciate your assistance in clarifying documentation. Please respond to the clarification below the line at the bottom and electronically sign. The CDI & [facility] Coding staff will review the response and follow-up if needed. Please note: Queries are made part of the Legal Health Record. If you have any questions, please contact the author of this message via ITS. Dr. Vu Gerardo: Per the History & Physical Addendum: "Sepsis secondary to left lower lobe pneumonia." Per the attending H/P & subsequent progress notes: "Chronic hypoxic respiratory failure on home O2." Per the pulmonary consult & subsequent progress notes: ""Acute on chronic hypoxic respiratory failure secondary to RUL consolidation felt to be fungal in nature..." History/Risk Factors: Asthma, CAD, Angina, COPD, CVA, Chronic smoker, MS, Pneumonia and previous basal ganglia hemorrhage October 2014. Clinical Indicators: Per the H/P: Presented with SOB with known chronic hypoxic respiratory failure on home O2 2L nc & nicotine dependence. Bilateral diminished breath sounds & wheezing & rhonchi per pulmonary. Vital signs: T 98.0, P 103^, R 20 (SOB), BP 106/67, PO 94 2Lnc RAD: CT chest: diffuse bullous emphysema, 4cm cavitating infiltrate in RUL posteriorly with fluid level. Consistent with lung abscess same or slightly smaller than previous CT. Treatment: INH Albuterol, IV Levaquin, IV Zosyn, IV Solumedrol, O2 2-3Lnc In your professional opinion, can you please clarify the acuity of the documented hypoxic respiratory failure? Acuity o Acute o Chronic o Acute on Chronic o Other, please specify o Unable to determine (Last Revision: November 2017) Acute on Chronic MTDD
--- NOTE | 2019-05-15 12:57 | P.PN ---
Subjective Progress Note Date: 05/15/19 Principal diagnosis: Acute on chronic hypoxic respiratory failure secondary to right upper lobe consolidation felt to be fungal in nature. There is a pleasant 58-year-old gentleman who follows with Dr. Rola Cano as his primary care physician. 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 He does have a history of chronic obstructive pulmonary disease and is oxygen dependent at 2 L/m per nasal cannula. Previous FEV1 value in 2017 is 36% of predicted. He was recently hospitalized for an acute right upper lobe pneumonia. Computed tomography scan of the chest revealed an extensive right upper lobe consolidation secondary to probable fungal etiology. His sputum was positive for Aspergillus. He has been treated with Sporanox and Augmentin and is here for post hospital follow-up. Note that the patient a cavitary right upper lobe lesion with a fungus was positive. Based on that, the patient was discharged home on itraconazole 200 mg by mouth daily. He was seen in the office approximately 2 weeks ago and he was doing well and there was interval improvement in the right upper lobe abnormality. The patient comes in again to the hospital and he has been complaining of increased H shortness of breath, cough congestion chest tightness and wheezing. Follow-up CAT scan of the chest was done in comparison, the right upper lobe cavitary infiltration is improved and a fungus ball seems to be smaller in size. There is a vague left lung i nfiltration compared to the prior CAT scan of the chest from March 2019. His current white cell count is at 18.3. Rest of the blood work is all within normal limits. On 05/14/2019 the patient is being seen for a follow-up. Is feeling better. Less short of breath compared to yesterday. Gradually improving. His back on a combination of itraconazole and Levaquin. His that wasn't taking 0.3 which is improved compared to a few days back. Rest of the blood work and electrodes are all within normal limits. He remains on IV Solu-Medrol. No fever. No chills. A repeat sputum Gram stain and culture has been ordered and the sputum Gram stain showing gram-negative bacillus. Final cultures and sensitivities pending for now. We'll continue to follow. No new complaints otherwise for today. The patient is seen today 05/15/2019 in follow-up on the regular medical floor. He is awake and alert in no acute distress. Up ambulating in his room. Continues to be short of breath with exertion. Still with a loose productive cough. Sputum with preliminary gram-negative bacilli. Currently on Levaquin. Continued on his Sporanox. He remains on bronchodilators and IV Solu-Medrol. N icoDerm patch is in place. Objective - Vital Signs Vital signs: Vital Signs Temp 98.5 F 05/15/19 11:39 Pulse 85 05/15/19 12:06 Resp 18 05/15/19 11:39 BP 122/64 05/15/19 11:39 Pulse Ox 94 L 05/15/19 11:39 Intake & Output 05/14/19 05/15/19 05/15/19 18:59 06:59 18:59 Intake Total 840 Balance 840 Intake: Oral 840 Other: Voiding Method Toilet Toilet Toilet # Voids 2 1 - Exam GENERAL EXAM: Alert, 58-year-old gentleman, cushingoid features, active, comfortable in no apparent distress. On 2 L nasal cannula. HEAD: Normocephalic. EYES: Right eye prosthetic. NOSE: Clear with pink turbinates. THROAT: No erythema or exudates. NECK: No masses, no JVD. CHEST: No chest wall deformity. LUNGS: Equal air entry with bilateral end expiratory wheeze, few scattered rhonchi.. CVS: S1 and S2 normal with no audible murmur, regular rhythm. ABDOMEN: No hepatosplenomegaly, normal bowel sounds, no guarding or rigidity. SPINE: No scoliosis or deformity SKIN: No rashes CENTRAL NERVOUS SYSTEM: No focal deficits, tone is normal in all 4 extremities. EXTREMITIES: There is no peripheral edema. No clubbing, no cyanosis. Peripheral pulses are intact. - Labs CBC & Chem 7: 05/15/19 07:49 05/15/19 07:49 Labs: Abnormal Lab Results - Last 24 Hours (Table) 05/15/19 05/15/19 Range/Units 07:49 07:49 WBC 11.0 H (3.8-10.6) k/uL RBC 4.13 L (4.30-5.90) m/uL MCV 100.1 H (80.0-100.0) fL Neutrophils # 10.4 H (1.3-7.7) k/uL Lymphocytes # 0.1 L (1.0-4.8) k/uL Sodium 135 L (137-145) mmol/L Creatinine 0.51 L (0.66-1.25) mg/dL Glucose 185 H (74-99) mg/dL Microbiology - Last 24 Hours (Table) 05/11/19 19:45 Blood Culture - Preliminary Blood No Growth after 72 hours 05/12/19 15:46 Gram Stain - Preliminary Sputum Sputum Culture - Preliminary Gram Neg Bacilli Assessment and Plan Assessment: Impression: #1 Acute on chronic hypoxic respiratory failure secondary to right upper lobe consolidation felt to be fungal in nature with positive aspergillis fumigatus in the sputum and Aspergillus fumigatus IgE level high. The patient was recently discharged on Sporanox and Augmentin. Legionella ruled out. Subsequent CAT scan of the chest shows some improvement in the right upper lobe cavitary infiltration and fungus ball. Consider new onset left lung pneumonia knowing that there is some hazy infiltration of the left lung. #2 Acute exacerbation of severe oxygen dependent chronic obstructive pulmonary disease with an FEV1 value of 66% of predicted. #3 Chronic and ongoing tobacco dependence. #4 Chronic pain syndrome with recent injury to left shoulder, currently in a sling. #5 History of CVA/hemorrhage. 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 #7 Acid reflux disease. #8 History of shingles. 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 #10 History of noncompliance. #11 Left shoulder injury post fall #12 coronary artery disease with previous [place] Plan: The patient was seen and evaluated by Dr. Garcia. He is improved but not quite back to his baseline. Final sputum culture pending. Continued on Levaquin for now. Continued on Sporanox. Increase his activity as tolerated. We'll continue to follow. I, the cosigning physician, performed a history & physical examination of the patient. Lungs sounds with bilateral end expiratory wheeze, few scattered rhonchi. Maintaining good O2 saturations in the 90s on 2 L/m per nasal cannula. I discussed the assessment and plan of care with my nurse practitioner, Crissy Bland. I attest to the above note as dictated by her.
[2019-05-15] MEDS: LEVOFLOXACIN 750 MG TAB PO SCH (19:20)
[2019-05-15] MEDS: MONTELUKAST 10 MG TAB PO SCH (21:36)
[2019-05-15] MEDS: MELATONIN 5 MG TABLET PO SCH (21:36)
[2019-05-16] MEDS: IPRATROPIUM-ALBUTEROL 3 ML NEB INHALATION SCH ×3 (03:30→11:28)
[2019-05-16] MEDS: guaiFENesin SYRUP 100MG/5ML 200 MG/10 ML CUP PO PRN ×2 (03:55→10:12)
[2019-05-16] MEDS: GABAPENTIN 400 MG CAP PO PRN ×2 (03:55→10:12)
[2019-05-16] MEDS: HYDROcodone/APAP 5-325MG 1 EACH TAB PO PRN ×2 (03:56→10:11)
[2019-05-16 05:00] VITALS: BP 138/80; RESP 16; TEMP 98.4
[2019-05-16] MEDS: methylPREDNISolone SOD SUCCI 40 MG/ML 1 ML VIAL IV SCH (08:09)
[2019-05-16] MEDS: HEPARIN SODIUM,PORCINE 5,000 UNIT/ML 1 ML VIAL SQ SCH (08:09)
[2019-05-16] MEDS: amLODIPine 10 MG TAB PO SCH (08:09)
[2019-05-16] MEDS: ITRACONAZOLE 100 MG CAP PO SCH (08:09)
[2019-05-16] MEDS: NICOTINE 14MG/24HR PATCH TRANSDERM SCH (08:10)
[2019-05-16] MEDS: LEVOFLOXACIN 750 MG TAB PO SCH (08:10)
[2019-05-16] MEDS ORDERED: ESCITALOPRAM 10 MG TAB PO SCH (09:00)
[2019-05-16] MEDS: SALMETEROL INHALATION SCH (10:11)
[2019-05-16] MEDS: FLUTICASONE INHALATION SCH (10:11)
[2019-05-16 11:17] LABS: Basophils # (A) 0.1 k/uL (0-0.2); Basophils % (A) 1 %; Eosinophils % (A) 0 %; HCT 39.6 % (39.0-53.0); HGB 13.1 gm/dL (13.0-17.5); Lymphocytes # (A) 0.1 k/uL (1.0-4.8); Lymphocytes % (A) 1 %; MCH 33.3 pg (25.0-35.0); MCHC 33.2 g/dL (31.0-37.0); MCV 100.3 fL (80.0-100.0); Macrocytosis Slight; Mean Platelet Volume 6.4; Monocytes # (A) 0.5 k/uL (0-1.0); Monocytes % (A) 5 %; Neutrophils # (A) 9.1 k/uL (1.3-7.7); Neutrophils % (A) 92 %; Platelet Count 269 k/uL (150-450); RBC 3.94 m/uL (4.30-5.90); RDW 14.3 % (11.5-15.5); WBC 9.9 k/uL (3.8-10.6)
[2019-05-16 11:28] LABS: ALT 42 U/L (21-72); AST 19 U/L (17-59); African American GFR (CKD) >90 (>60 ml/min/1.73 sqM); Albumin 3.3 g/dL (3.5-5.0); Alkaline Phosphatase 50 U/L (38-126); Anion Gap 5 mmol/L; Blood Urea Nitrogen 19 mg/dL (9-20); Calcium 9.2 mg/dL (8.4-10.2); Carbon Dioxide 33 mmol/L (22-30); Chloride 97 mmol/L (98-107); Glucose 159 mg/dL (74-99); Sodium 135 mmol/L (137-145); Total Bilirubin 0.2 mg/dL (0.2-1.3); Total Protein 5.5 g/dL (6.3-8.2)
[2019-05-16 11:43] VITALS: PULSE 106
--- NOTE | 2019-05-16 13:41 | P.PN ---
Subjective Progress Note Date: 05/16/19 Principal diagnosis: Acute on chronic hypoxic respiratory failure secondary to right upper lobe consolidation felt to be fungal in nature. There is a pleasant 58-year-old gentleman who follows with Dr. Rola Cano as his primary care physician. 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 He does have a history of chronic obstructive pulmonary disease and is oxygen dependent at 2 L/m per nasal cannula. Previous FEV1 value in 2017 is 36% of predicted. He was recently hospitalized for an acute right upper lobe pneumonia. Computed tomography scan of the chest revealed an extensive right upper lobe consolidation secondary to probable fungal etiology. His sputum was positive for Aspergillus. He has been treated with Sporanox and Augmentin and is here for post hospital follow-up. Note that the patient a cavitary right upper lobe lesion with a fungus was positive. Based on that, the patient was discharged home on itraconazole 200 mg by mouth daily. He was seen in the office approximately 2 weeks ago and he was doing well and there was interval improvement in the right upper lobe abnormality. The patient comes in again to the hospital and he has been complaining of increased H shortness of breath, cough congestion chest tightness and wheezing. Follow-up CAT scan of the chest was done in comparison, the right upper lobe cavitary infiltration is improved and a fungus ball seems to be smaller in size. There is a vague left lung i nfiltration compared to the prior CAT scan of the chest from March 2019. His current white cell count is at 18.3. Rest of the blood work is all within normal limits. On 05/14/2019 the patient is being seen for a follow-up. Is feeling better. Less short of breath compared to yesterday. Gradually improving. His back on a combination of itraconazole and Levaquin. His that wasn't taking 0.3 which is improved compared to a few days back. Rest of the blood work and electrodes are all within normal limits. He remains on IV Solu-Medrol. No fever. No chills. A repeat sputum Gram stain and culture has been ordered and the sputum Gram stain showing gram-negative bacillus. Final cultures and sensitivities pending for now. We'll continue to follow. No new complaints otherwise for today. The patient is seen today 05/15/2019 in follow-up on the regular medical floor. He is awake and alert in no acute distress. Up ambulating in his room. Continues to be short of breath with exertion. Still with a loose productive cough. Sputum with preliminary gram-negative bacilli. Currently on Levaquin. Continued on his Sporanox. He remains on bronchodilators and IV Solu-Medrol. N icoDerm patch is in place. The patient is seen today 05/16/2019 in follow-up on the regular medical floor. He is up ambulating in his room. Awake and alert in no acute distress. He is maintaining O2 saturations in the mid 90s on 2 L/m per nasal cannula. He's been afebrile. Hemodynamically stable. Blood culture reveals no growth. Preliminary sputum culture reveals gram-negative bacilli. White count 9.9. Hemoglobin 13.1. Creatinine 0.55. He is currently on Levaquin. Objective - Vital Signs Vital signs: Vital Signs Temp 98.4 F 05/16/19 04:15 Pulse 106 H 05/16/19 11:42 Resp 16 05/16/19 08:35 BP 138/80 05/16/19 04:15 Pulse Ox 95 05/16/19 08:20 Intake & Output 05/15/19 05/16/19 05/16/19 18:59 06:59 18:59 Intake Total 1420 1800 3660 Balance 1420 1800 3660 Intake: Oral 1420 1800 3660 Other: Voiding Method Toilet Toilet Toilet # Voids 3 3 3 # Bowel Movements 1 1 - Exam GENERAL EXAM: Alert, 58-year-old gentleman, active, comfortable in no apparent distress. On 2 L nasal cannula. HEAD: Normocephalic. EYES: Right eye prosthetic. NOSE: Clear with pink turbinates. THROAT: No erythema or exudates. NECK: No masses, no JVD. CHEST: No chest wall deformity. LUNGS: Equal air entry with bilateral end expiratory wheeze, few scattered rhonchi.. CVS: S1 and S2 normal with no audible murmur, regular rhythm. ABDOMEN: No hepatosplenomegaly, normal bowel sounds, no guarding or rigidity. SPINE: No scoliosis or deformity SKIN: No rashes CENTRAL NERVOUS SYSTEM: No focal deficits, tone is normal in all 4 extremities. EXTREMITIES: There is no peripheral edema. No clubbing, no cyanosis. Peripheral pulses are intact. - Labs CBC & Chem 7: 05/16/19 10:50 05/16/19 10:50 Labs: Abnormal Lab Results - Last 24 Hours (Table) 05/16/19 05/16/19 Range/Units 10:50 10:50 RBC 3.94 L (4.30-5.90) m/uL MCV 100.3 H (80.0-100.0) fL Neutrophils # 9.1 H (1.3-7.7) k/uL Lymphocytes # 0.1 L (1.0-4.8) k/uL Sodium 135 L (137-145) mmol/L Chloride 97 L (98-107) mmol/L Carbon Dioxide 33 H (22-30) mmol/L Creatinine 0.55 L (0.66-1.25) mg/dL Glucose 159 H (74-99) mg/dL Total Protein 5.5 L (6.3-8.2) g/dL Albumin 3.3 L (3.5-5.0) g/dL Microbiology - Last 24 Hours (Table) 05/12/19 15:46 Gram Stain - Preliminary Sputum Sputum Culture - Preliminary Gram Neg Bacilli 05/11/19 19:45 Blood Culture - Preliminary Blood No Growth after 96 hours Assessment and Plan Assessment: Impression: #1 Acute on chronic hypoxic respiratory failure secondary to right upper lobe consolidation felt to be fungal in nature with positive aspergillis fumigatus in the sputum and Aspergillus fumigatus IgE level high. The patient was recently discharged on Sporanox and Augmentin. Legionella ruled out. Subsequent CAT scan of the chest shows some improvement in the right upper lobe cavitary infiltration and fungus ball. Consider new onset left lung pneumonia knowing that there is some hazy infiltration of the left lung. #2 Acute exacerbation of severe oxygen dependent chronic obstructive pulmonary disease with an FEV1 value of 66% of predicted. #3 Chronic and ongoing tobacco dependence. #4 Chronic pain syndrome with recent injury to left shoulder, currently in a sling. #5 History of CVA/hemorrhage. 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 #7 Acid reflux disease. #8 History of shingles. 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 #10 History of noncompliance. #11 Left shoulder injury post fall #12 coronary artery disease with previous [place] Plan: The patient was seen and evaluated by Dr. Garcia. Final sputum culture pending. Continued on Levaquin for now. Continued on Sporanox. Increase his activity as tolerated. We'll continue to follow. I, the cosigning physician, performed a history & physical examination of the patient. Lungs sounds with bilateral end expiratory wheeze, few scattered rhonchi. Maintaining good O2 saturations in the 90s on 2 L/m per nasal cannula. I discussed the assessment and plan of care with my nurse practitioner, Crissy Bland. I attest to the above note as dictated by her.
== END 2019-05-16 13:40 | disposition home or self-care (01) | DRG 871 ==
LOC: EC 16:35 → 3NMEDONC 21:09 → 3SCARD 05-12 22:48 → 3NMEDONC 05-12 22:48
PROVIDERS: ADMIT Hospitalist; ATTEND Hospitalist
DX: A41.9 Sepsis, unspecified organism (principal); J85.1 Abscess of lung with pneumonia; J96.21 Acute and chronic respiratory failure with hypoxia; S42.92XA Fracture of left shoulder girdle, part unspecified, initial encounter for closed fracture; M87.9 Osteonecrosis, unspecified; Z90.01 Acquired absence of eye; E11.9 Type 2 diabetes mellitus without complications; F17.200 Nicotine dependence, unspecified, uncomplicated; F32.9 Major depressive disorder, single episode, unspecified; F41.0 Panic disorder [episodic paroxysmal anxiety]; G89.4 Chronic pain syndrome; I10 Essential (primary) hypertension; I25.10 Atherosclerotic heart disease of native coronary artery without angina pectoris; I25.2 Old myocardial infarction; J43.9 Emphysema, unspecified; K21.9 Gastro-esophageal reflux disease without esophagitis; Z79.899 Other long term (current) drug therapy; Z80.51 Family history of malignant neoplasm of kidney; Z80.8 Family history of malignant neoplasm of other organs or systems; Z82.5 Family history of asthma and other chronic lower respiratory diseases; Z86.19 Personal history of other infectious and parasitic diseases; Z86.73 Personal history of transient ischemic attack (TIA), and cerebral infarction without residual deficits; Z91.19 Patient's noncompliance with other medical treatment and regimen; Z97.0 Presence of artificial eye; Z99.81 Dependence on supplemental oxygen; Z91.010 Allergy to peanuts
CPT/HCPCS: 36415; 71046; 71260; 80048; 80053; 83605; 84484; 85025; 87040; 87070; 87077; 87186; 87205; 93005; 94640; 94760; 96365; 96366; 96375; 99285

== ENCOUNTER 2019-05-19 16:12 | Emergency (ER) | payer OTHER ==
[2019-05-19 17:14] VITALS: RESP 18; TEMP 98.3
[2019-05-19] MEDS ORDERED: SODIUM CHLORIDE 0.9% 500 ML 500 ML IV STA (17:55)
--- NOTE | 2019-05-19 17:55 | ED ---
General Adult HPI - General Chief complaint: Extremity Problem,Nontraumatic Stated complaint: Cramping in fingers Time Seen by Provider: 05/19/19 17:31 Source: patient, RN notes reviewed Mode of arrival: ambulatory Limitations: no limitations - History of Present Illness Initial comments: 58-year-old male with a complicated past medical history presents to the emergency department for a chief complaint of bilateral hand cramping. States it is worse in his right hand. States that this has been ongoing for weeks. States he has pain to the back of his right hand. Denies any injuries. Denies any loss of sensation in the upper extremities. Denies cramping anywhere else in the body.Patient has no other complaints at this time including shortness of breath, chest pain, abdominal pain, nausea or vomiting, headache, or visual changes. - Related Data Home Medications Medication Instructions Recorded Confirmed Melatonin 5 mg PO HS 11/14/18 05/19/19 Fluticasone/Salmeterol 1 puff INHALATION RT-BID 04/29/19 05/19/19 [Fluticasone-Salmeterol 232-14] Gabapentin 800 mg PO Q6H PRN 04/29/19 05/19/19 amLODIPine [Norvasc] 10 mg PO DAILY 04/29/19 05/19/19 Albuterol Inhaler [Ventolin Hfa 1 - 2 puff INHALATION RT-Q6H PRN 05/11/19 05/19/19 Inhaler] predniSONE See Taper PO DIRECTED 05/19/19 05/19/19 Previous Rx's Medication Instructions Recorded Montelukast [Singulair] 10 mg PO HS #30 tab 11/17/18 Nicotine 14Mg/24Hr Patch [Habitrol] 1 patch TRANSDERM DAILY #30 patch 11/17/18 Ipratropium-Albuterol Nebulize 3 ml INHALATION RT-QID PRN #60 12/15/18 [Duoneb 0.5 mg-3 mg/3 ml Soln] ampul.neb Escitalopram [Lexapro] 10 mg PO DAILY #15 tab 05/15/19 Itraconazole [Sporanox] 200 mg PO DAILY 10 Days #10 cap 05/15/19 Levofloxacin [Levaquin] 750 mg PO DAILY 5 Days #5 tab 05/15/19 guaiFENesin SYRUP 100MG/5ML 200 mg PO Q6H PRN #1 bottle 05/15/19 [Robitussin] HYDROcodone/APAP 5-325MG [[place] 1 tab PO Q8HR PRN 2 Days #6 tab 05/16/19 5-325] Allergies Allergy/AdvReac Type Severity Reaction Status Date / Time peanut [Peanut Butter] AdvReac Nausea & Verified 05/19/19 17:47 Vomiting & Diarrhea Review of Systems ROS Statement: Those systems with pertinent positive or pertinent negative responses have been documented in the HPI. ROS Other: All systems not noted in ROS Statement are negative. Past Medical History Past Medical History: Chest Pain / Angina, COPD, CVA/TIA, Hypertension, Myocar dial Infarction ([place]), Pneumonia, Respiratory Disorder, Skin Disorder Additional Past Medical History / Comment(s): COPD with an FEV1 of 36% of predicted based on his spirometry from 2016, chronic hypoxic respiratory failure, history of CVA, chronic smoker, chronic pain syndrome, hypertension, acid reflux, previous history of basal ganglia hemorrhage in October 2014, frozen shoulder involving the right, it is history of coronary artery disease and myocardial infarction back in their 90s, shingles 2016, previous bouts of pneumonias Last Myocardial Infarction Date:: unknown History of Any Multi-Drug Resistant Organisms: None Reported Past Surgical History: Orthopedic Surgery Additional Past Surgical History / Comment(s): neck fx, metal plate left hand middle finger, right eye removed due to shingles. Past Anesthesia/Blood Transfusion Reactions: No Reported Reaction Past Psychological History: Depression, Panic Disorder Smoking Status: Current every day smoker Past Alcohol Use History: Occasional Past Drug Use History: Marijuana - Past Family History Mother Family Medical History: Cancer Additional Family Medical History / Comment(s): Pt believes his Mom of Kidney Cancer Father Family Medical History: Cancer, COPD, Respiratory Disorder Additional Family Medical History / Comment(s): Melanoma General Exam - General Exam Comments Initial Comments: Bilateral hands appeared normal. He has full sensation in both hands. Radial pulses are 2+. Capillary refill is less than 2 seconds. Sensation is intact throughout upper extremities. Patient has full range of motion in all fingers. There are no signs of infection or skin defects. Limitations: no limitations General appearance: alert, in no apparent distress Head exam: Present: atraumatic, normocephalic, normal inspection Eye exam: Present: normal appearance, PERRL, EOMI. Absent: scleral icterus, conjunctival injection, periorbital swelling Course Vital Signs 05/19/19 17:12 Temperature 98.3 F Pulse Rate 94 Respiratory 18 Rate Blood Pressure 134/76 O2 Sat by Pulse 97 Oximetry Medical Decision Making - Medical Decision Making 58-year-old male presents to the emergency department for a chief complaint of bilateral hand cramping. This has been ongoing for weeks. This is worse in the right hand. Sensation is intact. Medication Technician strength 5 out of 5. Neurovascular status intact in the upper extremities. Ordered was obtained to ensure no electorally imbalance. Minimal hyponatremia of 131 which is a Kleenex intervening to patient's symptoms. CBC is unremarkable. CMP shows a CO2 of 29 and a chloride of 94. This could be secondary to CO2 but unlikely. He denies taking any cholesterol medications. Patient requests Flexeril. States he has been trying Motrin and tylenol. He will be given a few pills of this. He will follow up with primary care in 1-2 days or return if he has any worsening symptoms.I discussed this case with attending Dr. Roger who agrees with this assessment and treatment plan. - Lab Data Result diagrams: 05/19/19 18:14 05/19/19 18:14 Lab Results 05/19/19 05/19/19 Range/Units 18:14 18:14 WBC 11.0 H (3.8-10.6) k/uL RBC 4.72 (4.30-5.90) m/uL Hgb 15.4 (13.0-17.5) gm/dL Hct 46.6 (39.0-53.0) % MCV 98.8 (80.0-100.0) fL MCH 32.6 (25.0-35.0) pg MCHC 33.0 (31.0-37.0) g/dL RDW 14.5 (11.5-15.5) % Plt Count 282 (150-450) k/uL Neutrophils % 87 % Lymphocytes % 5 % Monocytes % 5 % Eosinophils % 1 % Basophils % 2 % Neutrophils # 9.6 H (1.3-7.7) k/uL Lymphocytes # 0.5 L (1.0-4.8) k/uL Monocytes # 0.5 (0-1.0) k/uL Eosinophils # 0.1 (0-0.7) k/uL Basophils # 0.2 (0-0.2) k/uL Sodium 131 L (137-145) mmol/L Potassium 4.6 (3.5-5.1) mmol/L Chloride 94 L (98-107) mmol/L Carbon Dioxide 29 (22-30) mmol/L Anion Gap 8 mmol/L BUN 26 H (9-20) mg/dL Creatinine 0.61 L (0.66-1.25) mg/dL Est GFR (CKD-EPI)AfAm >90 (>60 ml/min/1.73 sqM) Est GFR (CKD-EPI)NonAf >90 (>60 ml/min/1.73 sqM) Glucose 118 H (74-99) mg/dL Calcium 9.3 (8.4-10.2) mg/dL Magnesium 2.3 (1.6-2.3) mg/dL Total Bilirubin 0.7 (0.2-1.3) mg/dL AST 29 (17-59) U/L ALT 65 (21-72) U/L Alkaline Phosphatase 56 (38-126) U/L Total Protein 6.6 (6.3-8.2) g/dL Albumin 4.1 (3.5-5.0) g/dL Disposition Clinical Impression: Muscular cramp Disposition: HOME SELF-CARE Condition: Good Instructions (If sedation given, give patient instructions): Muscle Cramp (ED) Additional Instructions: Please use heat on the areas. Please take Motrin and Tylenol for pain. Take Flexeril as needed. Follow-up with primary care in 1-2 days. Return if you have any worsening symptoms. Is patient prescribed a controlled substance at d/c from ED?: No Referrals: Urszula Carrasco MD [Primary Care Provider] - 1-2 days Time of Disposition: 19:55
[2019-05-19 18:45] LABS: Basophils # (A) 0.2 k/uL (0-0.2); Basophils % (A) 2 %; Eosinophils # (A) 0.1 k/uL (0-0.7); Eosinophils % (A) 1 %; HCT 46.6 % (39.0-53.0); HGB 15.4 gm/dL (13.0-17.5); Lymphocytes # (A) 0.5 k/uL (1.0-4.8); Lymphocytes % (A) 5 %; MCH 32.6 pg (25.0-35.0); MCV 98.8 fL (80.0-100.0); Mean Platelet Volume 5.9; Monocytes # (A) 0.5 k/uL (0-1.0); Monocytes % (A) 5 %; Neutrophils # (A) 9.6 k/uL (1.3-7.7); Neutrophils % (A) 87 %; Platelet Count 282 k/uL (150-450); RBC 4.72 m/uL (4.30-5.90); RDW 14.5 % (11.5-15.5)
[2019-05-19 19:02] LABS: ALT 65 U/L (21-72); AST 29 U/L (17-59); African American GFR (CKD) >90 (>60 ml/min/1.73 sqM); Albumin 4.1 g/dL (3.5-5.0); Alkaline Phosphatase 56 U/L (38-126); Anion Gap 8 mmol/L; Blood Urea Nitrogen 26 mg/dL (9-20); Calcium 9.3 mg/dL (8.4-10.2); Carbon Dioxide 29 mmol/L (22-30); Chloride 94 mmol/L (98-107); Glucose 118 mg/dL (74-99); Magnesium 2.3 mg/dL (1.6-2.3); Potassium 4.6 mmol/L (3.5-5.1); Sodium 131 mmol/L (137-145); Total Bilirubin 0.7 mg/dL (0.2-1.3); Total Protein 6.6 g/dL (6.3-8.2)
--- NOTE | 2019-05-19 19:32 | XR ---
PROCEDURE: XR hand complete RT - 3V DATE AND TIME: 05/19/2019 6:23 PM CLINICAL INDICATION: PHH; pain TECHNIQUE: Department protocol COMPARISON: None FINDINGS: There is no fracture or malalignment. However, multifocal advanced osteoarthritis changes a re noted. The soft tissues are unremarkable. IMPRESSION: NO ACUTE PROCESS.
[2019-05-19] MEDS ORDERED: CYCLOBENZAPRINE 10MG STARTER 3 TAB BTL PO STA (19:55)
[2019-05-19 20:20] VITALS: BP 144/98; PULSE 93
== END 2019-05-19 20:20 | disposition home or self-care (01) ==
LOC: EC 16:12
DX: R25.2 Cramp and spasm (principal); M79.641 Pain in right hand; E87.1 Hypo-osmolality and hyponatremia; J44.9 Chronic obstructive pulmonary disease, unspecified; J96.11 Chronic respiratory failure with hypoxia; I10 Essential (primary) hypertension; I25.119 Atherosclerotic heart disease of native coronary artery with unspecified angina pectoris; I25.2 Old myocardial infarction; F17.200 Nicotine dependence, unspecified, uncomplicated; Z91.010 Allergy to peanuts; Z79.51 Long term (current) use of inhaled steroids; Z79.52 Long term (current) use of systemic steroids; Z79.899 Other long term (current) drug therapy
CPT/HCPCS: 36415; 80053; 83735; 85025; 99283

== ENCOUNTER 2019-05-21 12:21 | Inpatient (IN) | payer OTHER ==
[2019-05-21] MEDS ORDERED: SODIUM CHLORIDE 0.9% 500 ML 500 ML IV STA (12:52)
[2019-05-21] MEDS ORDERED: IPRATROPIUM-ALBUTEROL 3 ML NEB INHALATION STA (12:52)
[2019-05-21] MEDS ORDERED: DEXAMETHASONE 4 MG TAB PO STA (12:53)
[2019-05-21 13:12] LABS: Basophils # (A) 0.2 k/uL (0-0.2); Basophils % (A) 2 %; Eosinophils # (A) 0.2 k/uL (0-0.7); Eosinophils % (A) 1 %; HCT 45.1 % (39.0-53.0); HGB 15.4 gm/dL (13.0-17.5); Lymphocytes # (A) 0.3 k/uL (1.0-4.8); Lymphocytes % (A) 2 %; MCH 34.1 pg (25.0-35.0); MCHC 34.1 g/dL (31.0-37.0); MCV 100.1 fL (80.0-100.0); Macrocytosis Slight; Mean Platelet Volume 6.3; Monocytes # (A) 0.3 k/uL (0-1.0); Monocytes % (A) 2 %; Neutrophils # (A) 14.6 k/uL (1.3-7.7); Neutrophils % (A) 93 %; Platelet Count 239 k/uL (150-450); RBC 4.51 m/uL (4.30-5.90); RDW 14.5 % (11.5-15.5); WBC 15.6 k/uL (3.8-10.6)
--- NOTE | 2019-05-21 13:13 | ED ---
General Adult HPI - General Chief complaint: Shortness of Breath Stated complaint: COPD, SOB Time Seen by Provider: 05/21/19 12:25 Source: patient Mode of arrival: EMS Limitations: no limitations - History of Present Illness Initial comments: Dictation was produced using Netscape dictation software. please excuse any grammatical, word or spelling errors. Chief Complaint: 58-year-old male past medical history of COPD, hypertension, shingles, right eye blindness presents with dyspnea and left flank rash. History of Present Illness: 8-year-old male. He has past medical history of COPD he relies on home oxygen. Patient called EMS because he felt short of breath. Patient has extensive history of COPD. Patient was recently admitted for pneumonia. At that time was evaluated by pulmonology. Patient states that he always felt short of breath however today he felt like he is more short of breath than usual. Denies any fever, chills or night sweats. Patient was recently seen in emergency department 2 days ago for her hand cramping. Patient has extensive history of shingles is a cause for his right eye blindness. He continues this rash several days ago. He is supposed be on acyclovir however has not had a refill for his medications. The ROS documented in this emergency department record has been reviewed and confirmed by me. Those systems with pertinent positive or negative responses have been documented in the HPI. All other systems are other negative and/or noncontributory. PHYSICAL EXAM: General Impression: Alert and oriented x3, not in acute distress HEENT: Normocephalic atraumatic, t, false right eye Cardiovascular: Heart regular rate and rhythm, S1&S2 audible, no murmurs, rubs or gallops Chest: Mild diffuse lung wheezing Abdomen: Bowel sounds present, abdomen soft, non-tender, non-distended, no organomegaly Musculoskeletal: Pulses present and equal in all extremities, no peripheral edema Motor: no focal deficits noted Neurological: CN II-XII grossly intact, no focal motor or sensory deficits noted Skin: Intact with no visualized rashes, dermatomal rash to the left flank area with bullae formation Psych: Normal affect and mood ED course: 58-year-old male presents with rash and dyspnea. Vital signs upon arrival are within acceptable limits. Patient is moderately well-appearing at this time.He does not appear to be in significant respiratory distress. He has mild wheezing diffusely throughout his lungs. He does have a rash consistent with shingles to his left flank.Return evaluation obtained. Leukocytosis of 15.6. Metabolic panel shows sodium of 131. Chest x-ray was obtained showing COPD with cavitating lesion in the right upper lobe. Chart review was performed patient has had persistent cavitating lesion in the right upper lobe. There is a question of whether this represents a lung abscess versus Aspergillus. Patient not showing signs of respiratory distress. He does have white count however is afebrile. He completed a course of antibiotics. Blood cultures and urine cultures pending. Dr. tuttle who was patient's hospitalist on last admission allegedly contacted patient to evaluate him. He was instructed patient was instructed to contact EMS come to the emergency department. Dr. tuttle requested that patient be admitted with infectious disease consultation. Patient given a dose of breath which antibiotics case that patient's cavitating lesion represents abscess. Patient is advised by pulmonology recently and is concerned that that lesion represented Aspergillus. She given a dose of acyclovir for concerns of shingles infection to the left flank. EKG interpretation: Ventricular rate 83, sinus rhythm,. Interval 1:30, care is 80, QTc 423. No MS prolongation, no QTC prolongation, no ST or T-wave changes noted. EKG compared to 05/11/2019 showing no changes. Overall, this EKG is unremarkable - Related Data Home Medications Medication Instructions Recorded Confirmed Melatonin 5 mg PO HS 11/14/18 05/21/19 Fluticasone/Salmeterol 1 puff INHALATION RT-BID 04/29/19 05/21/19 [Fluticasone-Salmeterol 232-14] Gabapentin 800 mg PO Q6H PRN 04/29/19 05/21/19 amLODIPine [Norvasc] 10 mg PO DAILY 04/29/19 05/21/19 Albuterol Inhaler [Ventolin Hfa 1 - 2 puff INHALATION RT-Q6H PRN 05/11/19 05/21/19 Inhaler] predniSONE See Taper PO DIRECTED 05/19/19 05/21/19 Previous Rx's Medication Instructions Recorded Montelukast [Singulair] 10 mg PO HS #30 tab 11/17/18 Ipratropium-Albuterol Nebulize 3 ml INHALATION RT-QID PRN #60 12/15/18 [Duoneb 0.5 mg-3 mg/3 ml Soln] ampul.neb Escitalopram [Lexapro] 10 mg PO DAILY #15 tab 05/15/19 guaiFENesin SYRUP 100MG/5ML 200 mg PO Q6H PRN #1 bottle 05/15/19 [Robitussin] Allergies Allergy/AdvReac Type Severity Reaction Status Date / Time peanut [Peanut Butter] AdvReac Nausea & Verified 05/21/19 13:21 Vomiting & Diarrhea Review of Systems ROS Statement: Those systems with pertinent positive or pertinent negative responses have been documented in the HPI. ROS Other: All systems not noted in ROS Statement are negative. 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 Past Anesthesia/Blood Transfusion Reactions: No Reported Reaction Past Psychological History: Depression, Panic Disorder Smoking Status: Former smoker Past Alcohol Use History: Occasional Past Drug Use History: Marijuana - Past Family History Mother Family Medical History: Cancer Additional Family Medical History / Comment(s): Pt believes his Mom of Kidney Cancer Father Family Medical History: Cancer, COPD, Respiratory Disorder Additional Family Medical History / Comment(s): Melanoma General Exam Limitations: no limitations Course Vital Signs 05/21/19 05/21/19 05/21/19 12:23 13:23 13:35 Temperature 97.7 F Pulse Rate 85 81 82 Respiratory 20 Rate Blood Pressure 122/81 O2 Sat by Pulse 95 Oximetry Medical Decision Making - Lab Data Result diagrams: 05/21/19 13:05 05/21/19 13:05 Lab Results 05/21/19 05/21/19 Range/Units 13:05 13:05 WBC 15.6 H (3.8-10.6) k/uL RBC 4.51 (4.30-5.90) m/uL Hgb 15.4 (13.0-17.5) gm/dL Hct 45.1 (39.0-53.0) % MCV 100.1 H (80.0-100.0) fL MCH 34.1 (25.0-35.0) pg MCHC 34.1 (31.0-37.0) g/dL RDW 14.5 (11.5-15.5) % Plt Count 239 (150-450) k/uL Neutrophils % 93 % Lymphocytes % 2 % Monocytes % 2 % Eosinophils % 1 % Basophils % 2 % Neutrophils # 14.6 H (1.3-7.7) k/uL Lymphocytes # 0.3 L (1.0-4.8) k/uL Monocytes # 0.3 (0-1.0) k/uL Eosinophils # 0.2 (0-0.7) k/uL Basophils # 0.2 (0-0.2) k/uL Macrocytosis Slight Sodium 131 L (137-145) mmol/L Potassium 5.0 (3.5-5.1) mmol/L Chloride 96 L (98-107) mmol/L Carbon Dioxide 26 (22-30) mmol/L Anion Gap 9 mmol/L BUN 12 (9-20) mg/dL Creatinine 0.41 L (0.66-1.25) mg/dL Est GFR (CKD-EPI)AfAm >90 (>60 ml/min/1.73 sqM) Est GFR (CKD-EPI)NonAf >90 (>60 ml/min/1.73 sqM) Glucose 88 (74-99) mg/dL Calcium 8.9 (8.4-10.2) mg/dL Total Bilirubin 0.9 (0.2-1.3) mg/dL AST 40 (17-59) U/L ALT 56 (21-72) U/L Alkaline Phosphatase 43 (38-126) U/L Total Protein 6.5 (6.3-8.2) g/dL Albumin 3.9 (3.5-5.0) g/dL Disposition Clinical Impression: Cavitary lung disease Disposition: ADMITTED IP TO THIS HOSP Condition: Fair Referrals: Urszula Carrasco MD [Primary Care Provider] - 1-2 days Decision Time: 13:59
[2019-05-21 13:32] LABS: ALT 56 U/L (21-72); AST 40 U/L (17-59); African American GFR (CKD) >90 (>60 ml/min/1.73 sqM); Albumin 3.9 g/dL (3.5-5.0); Alkaline Phosphatase 43 U/L (38-126); Anion Gap 9 mmol/L; Blood Urea Nitrogen 12 mg/dL (9-20); Calcium 8.9 mg/dL (8.4-10.2); Carbon Dioxide 26 mmol/L (22-30); Chloride 96 mmol/L (98-107); Glucose 88 mg/dL (74-99); Sodium 131 mmol/L (137-145); Total Bilirubin 0.9 mg/dL (0.2-1.3); Total Protein 6.5 g/dL (6.3-8.2)
--- NOTE | 2019-05-21 13:51 | XR ---
EXAMINATION TYPE: XR chest 2V DATE OF EXAM: 05/21/2019 COMPARISON: 05/12/2019 TECHNIQUE: PA and lateral views submitted. HISTORY: Abnormal x-ray FINDINGS: There is a large irregular area of consolidation or mass lobe measuring 4.9 cm. Underlying COPD suspe cted. No pleural effusion. Subsegmental changes at both lung bases typical atelectasis. Arthropathy o f the shoulders and diffuse osteopenia. No pneumothorax. Heart size normal. IMPRESSION: 1. COPD with cavitating lesion right upper lobe either representing pneumonia or neoplasm. Correlate clinically. No interval change.
[2019-05-21] MEDS ORDERED: ACYCLOVIR 800 MG TAB PO STA (13:55)
[2019-05-21] MEDS ORDERED: NALOXONE 0.4 MG/ML 1 ML VIAL IV PRN (14:00)
[2019-05-21] MEDS ORDERED: CEFEPIME 2 GM in SODIUM CHLORIDE 0.9% 100 ML IVPB STA (14:02)
[2019-05-21] MEDS ORDERED: VANCOMYCIN IV PER PHARMACY 1 EACH MISC MISCELLANE PRN (14:02)
[2019-05-21] MEDS ORDERED: VANCOMYCIN 1,250 MG in SODIUM CHLORIDE 0.9% 250 ML IVPB STA (14:07)
[2019-05-21 14:24] LABS: Appearance,Urine Clear (Clear); Bilirubin,Urine Negative (Negative); Blood,Urine Negative (Negative); Color,Urine Light Yellow; Glucose,Urine (UA) Negative (Negative); Ketones,Urine Negative (Negative); Leukocyte Esterase,Urine Negative (Negative); Nitrite,Urine Negative (Negative); Protein,Urine Negative (Negative); Specific Gravity,Urine 1.005 (1.001-1.035); Urobilinogen,Urine <2.0 mg/dL (<2.0)
[2019-05-21] MEDS ORDERED: IPRATROPIUM-ALBUTEROL 3 ML NEB INHALATION PRN (16:00)
[2019-05-21] MEDS ORDERED: HYDROcodone/APAP 5-325MG 1 EACH TAB PO PRN ×2 (16:01→16:14)
[2019-05-21] MEDS: ITRACONAZOLE 100 MG CAP PO SCH (17:40)
[2019-05-21] MEDS: MONTELUKAST 10 MG TAB PO SCH ×2 (19:47→19:49)
[2019-05-21] MEDS: traMADol 50 MG TAB PO PRN (19:47)
[2019-05-21] MEDS: MELATONIN 5 MG TABLET PO SCH (19:48)
[2019-05-21] MEDS: HEPARIN SODIUM,PORCINE 5,000 UNIT/ML 1 ML VIAL SQ SCH (19:49)
[2019-05-21] MEDS: FAMOTIDINE 20 MG/2 ML VIAL IV SCH (19:51)
[2019-05-21] MEDS ORDERED: VANCOMYCIN 1,250 MG in SODIUM CHLORIDE 0.9% 250 ML IVPB SCH (22:00)
[2019-05-21] MEDS: FLUTICASONE INHALATION SCH (22:33)
[2019-05-21] MEDS: SALMETEROL INHALATION SCH (22:33)
--- NOTE | 2019-05-21 23:29 | P.CONS ---
History of Present Illness - Reason for Consult Consult date: 05/21/19 shingles Requesting physician: David E Sheet - Chief Complaint rash left flank x few days - History of Present Illness Patient is a 58-year-old male with a past medical history significant for COPD patient also have a history of right upper lobe cavitary lung pneumonia for which the patient has been under the care of pulmonary the patient did grew Aspergillus in the sputum and for the patient is currently getting Sporanox per Dr. Juarez, he was recently admitted at this facility for a COPD exacerbation and possible pneumonia sputum with the demonstrate gram-negative for the patient received Augmentin on discharge that was May 16, 2019 patient is not presented back to the [facility] ER with chief complaints of increasing shortness of breath with minimal exertion and even at rest with the patient also have a cough bringing up some sputum no hemoptysis no significant chest pain the patient has developed a rash on his left flank area for the last 2 days that has bulging pain with the density of months 70 8 out of 10 head radiation with no surrounding redness or any foul-smelling drainage patient was evaluated by the ER physician patient on presentation to the hospital has been afebrile his white count was elevated he did receive a dose of cefepime and acyclovir in the ER he was admitted to the hospital started on vancomycin and infectious disease was consulted for further recommendation Review of Systems Positive point has been mentioned in HPI rest of the systems are negative Past Medical History Past Medical History: Chest Pain / Angina, COPD, CVA/TIA, Hypertension, Myocardial Infarction ([place]), Pneumonia, Respiratory Disorder, Skin Disorder Additional Past Medical History / Comment(s): 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 Last Myocardial Infarction Date:: unknown History of Any Multi-Drug Resistant Organisms: None Reported Past Surgical History: Orthopedic Surgery Additional Past Surgical History / Comment(s): metal plate left hand middle finger, right eye enucleation. Past Anesthesia/Blood Transfusion Reactions: No Reported Reaction Smoking Status: Former smoker - Past Family History Mother Family Medical History: Cancer Additional Family Medical History / Comment(s): Pt believes his Mom of Kidney Cancer Father Family Medical History: Cancer, COPD, Respiratory Disorder Additional Family Medical History / Comment(s): Melanoma Medications and Allergies Home Medications Medication Instructions Recorded Confirmed Type Melatonin 5 mg PO HS 11/14/18 05/21/19 History Montelukast [Singulair] 10 mg PO HS #30 tab 11/17/18 05/21/19 Rx Ipratropium-Albuterol Nebulize 3 ml INHALATION RT-QID PRN #60 12/15/18 05/21/19 Rx [Duoneb 0.5 mg-3 mg/3 ml Soln] ampul.neb Fluticasone/Salmeterol 1 puff INHALATION RT-BID 04/29/19 05/21/19 History [Fluticasone-Salmeterol 232-14] Gabapentin 800 mg PO Q6H PRN 04/29/19 05/21/19 History amLODIPine [Norvasc] 10 mg PO DAILY 04/29/19 05/21/19 History Albuterol Inhaler [Ventolin Hfa 1 - 2 puff INHALATION RT-Q6H PRN 05/11/19 05/21/19 History Inhaler] Escitalopram [Lexapro] 10 mg PO DAILY #15 tab 05/15/19 05/21/19 Rx guaiFENesin SYRUP 100MG/5ML 200 mg PO Q6H PRN #1 bottle 05/15/19 05/21/19 Rx [Robitussin] predniSONE See Taper PO DIRECTED 05/19/19 05/21/19 History Allergies Allergy/AdvReac Type Severity Reaction Status Date / Time peanut [Peanut Butter] AdvReac Nausea & Verified 05/21/19 13:21 Vomiting & Diarrhea Physical Exam Vitals: Vital Signs Temp Pulse Resp BP Pulse Ox 05/21/19 15:58 98.1 F 89 18 121/69 96 05/21/19 14:26 95 18 132/78 96 05/21/19 14:20 20 05/21/19 13:35 82 05/21/19 13:23 81 05/21/19 12:23 97.7 F 85 20 122/81 95 Intake and Output 05/21/19 05/21/19 05/21/19 06:59 14:59 22:59 Other: Weight 76.204 kg GENERAL DESCRIPTION: Middle-aged male lying in bed, no distress. No tachypnea or accessory muscle of respiration use. HEENT: Shows Pallor , no scleral icterus. Oral mucous membrane is dry. NECK: Trachea central, no thyromegaly. LUNGS: Unlabored breathing. Coarse breath sounds bilaterally with occasional wheeze or crackle. HEART: S1, S2, regular rate and rhythm. ABDOMEN: Soft, no tenderness , guarding or rigidity EXTREMITIES: No edema of feet. SKIN: Patient did have a vesicular rash in the left T10 dermatome with no evidence of any surrounding cellulitis NEUROLOGICAL: The patient is awake, alert, oriented x3, mood and affect normal. Results CBC & Chem 7: 05/21/19 13:05 05/21/19 13:05 Labs: Abnormal Lab Results - Last 24 Hours (Table) 05/21/19 05/21/19 Range/Units 13:05 13:05 WBC 15.6 H (3.8-10.6) k/uL MCV 100.1 H (80.0-100.0) fL Neutrophils # 14.6 H (1.3-7.7) k/uL Lymphocytes # 0.3 L (1.0-4.8) k/uL Sodium 131 L (137-145) mmol/L Chloride 96 L (98-107) mmol/L Creatinine 0.41 L (0.66-1.25) mg/dL Assessment and Plan Assessment: 1 patient with left T12 dermatome-herpes zoster currently with no evidence of any secondary cellulitis patient with right upper lobe cavitary pneumonia 2-sputum culture positive for Aspergillus in March however sputum culture did end of April that shows a gram-negative with resistant to Augmentin Plan: 1-We will start the patient on Valtrex 1 g every 8 hours and Lyrica for postherpetic neuralgia. 2- Cefepime 2 g every 12 hours to cover for the gram-negative seen on his last sputum and continue Sporanox per pulmonary 3-patient will benefit from bronchoscopy transbronchial biopsy and deep cultures We will follow on clinical condition and cultures to further adjust medication if needed Thank you for this consultation we will follow the patient along with you Time with Patient: Greater than 30
[2019-05-22] MEDS: IPRATROPIUM-ALBUTEROL 3 ML NEB INHALATION SCH ×8 (00:05→23:58)
[2019-05-22] MEDS: valACYclovir 500 MG TAB PO SCH ×3 (00:24→18:09)
[2019-05-22] MEDS: traMADol 50 MG TAB PO PRN ×4 (00:47→22:23)
[2019-05-22] MEDS: CEFEPIME 2 GM in SODIUM CHLORIDE 0.9% 100 ML IVPB SCH ×2 (03:40→16:35)
[2019-05-22] MEDS: guaiFENesin SYRUP 100MG/5ML 200 MG/10 ML CUP PO PRN ×2 (06:22→18:18)
[2019-05-22] MEDS: GABAPENTIN 400 MG CAP PO PRN ×2 (06:25→22:24)
[2019-05-22] MEDS: FAMOTIDINE 20 MG/2 ML VIAL IV SCH ×2 (09:33→22:25)
[2019-05-22] MEDS: ITRACONAZOLE 100 MG CAP PO SCH (09:39)
[2019-05-22] MEDS: HEPARIN SODIUM,PORCINE 5,000 UNIT/ML 1 ML VIAL SQ SCH ×2 (09:39→22:24)
[2019-05-22] MEDS: SALMETEROL INHALATION SCH (09:40)
[2019-05-22] MEDS: ESCITALOPRAM 10 MG TAB PO SCH (09:40)
[2019-05-22] MEDS: FLUTICASONE INHALATION SCH (09:40)
--- NOTE | 2019-05-22 09:43 | P.HPIM ---
History of Present Illness Patient is a 58-year-old male with a known history of COPD and chronic hypoxic respiratory failure on home oxygen 2 L where nausea cannula, history of CVA, nicotine addiction and chronic pain, hypertension and acid reflux and history of coronary artery disease and has history of [place], recently treated for right upper lobe pneumonia. came to ER by EMS with complaints of increasing shortness of breath, congestion and fever and chills. Patient found to have acute COPD exacerbation with pneumonia. he was recently discharged from the hospital for the same , but he said he got some improvement after discharged but got worse recently with more dyspnea and last night he thought he wanted to come to the hospital and postponed it till next morning, he was discharged last time on itraconazole , levaquin and tapered steroid. this time also he presents with shingle like rash on the left back and flank over one dermatome his chest xray: COPD or cavitory lesion on the right upper lobe with pna or neoplasm on admission he was started on vancomycin and cefepime Review of Systems CONSTITUTIONAL: No fever, no malaise, no fatigue. HEENT: No recent visual problems or hearing problems. Denied any sore throat. CARDIOVASCULAR: No orthopnea, PND, no palpitations, no syncope. PULMONARY: no hemoptysis. GASTROINTESTINAL: No diarrhea, no nausea, no vomiting, no abdominal pain. Normoactive bowel sounds. NEUROLOGICAL: No headaches, no weakness, no numbness. HEMATOLOGICAL: Denies any bleeding or petechiae. GENITOURINARY: Denies any burning micturition, frequency, or urgency. MUSCULOSKELETAL/RHEUMATOLOGICAL: Denies any joint pain, swelling, or any muscle pain. ENDOCRINE: Denies any polyuria or polydipsia. 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 Last Myocardial Infarction Date:: unknown History of Any Multi-Drug Resistant Organisms: None Reported Past Surgical History: Orthopedic Surgery Additional Past Surgical History / Comment(s): metal plate left hand middle finger, right eye enucleation. Past Anesthesia/Blood Transfusion Reactions: No Reported Reaction Smoking Status: Former smoker - Past Family History Mother Family Medical History: Cancer Additional Family Medical History / Comment(s): Pt believes his Mom of Kidney Cancer Father Family Medical History: Cancer, COPD, Respiratory Disorder Additional Family Medical History / Comment(s): Melanoma Medications and Allergies Home Medications Medication Instructions Recorded Confirmed Type Melatonin 5 mg PO HS 11/14/18 05/21/19 History Montelukast [Singulair] 10 mg PO HS #30 tab 11/17/18 05/21/19 Rx Ipratropium-Albuterol Nebulize 3 ml INHALATION RT-QID PRN #60 12/15/18 05/21/19 Rx [Duoneb 0.5 mg-3 mg/3 ml Soln] ampul.neb Fluticasone/Salmeterol 1 puff INHALATION RT-BID 04/29/19 05/21/19 History [Fluticasone-Salmeterol 232-14] Gabapentin 800 mg PO Q6H PRN 04/29/19 05/21/19 History amLODIPine [Norvasc] 10 mg PO DAILY 04/29/19 05/21/19 History Albuterol Inhaler [Ventolin Hfa 1 - 2 puff INHALATION RT-Q6H PRN 05/11/19 05/21/19 History Inhaler] Escitalopram [Lexapro] 10 mg PO DAILY #15 tab 05/15/19 05/21/19 Rx guaiFENesin SYRUP 100MG/5ML 200 mg PO Q6H PRN #1 bottle 05/15/19 05/21/19 Rx [Robitussin] predniSONE See Taper PO DIRECTED 05/19/19 05/21/19 History Allergies Allergy/AdvReac Type Severity Reaction Status Date / Time peanut [Peanut Butter] AdvReac Nausea & Verified 05/21/19 13:21 Vomiting & Diarrhea Physical Exam Vitals: Vital Signs Temp Pulse Resp BP Pulse Ox 05/21/19 15:58 98.1 F 89 18 121/69 96 05/21/19 14:26 95 18 132/78 96 05/21/19 14:20 20 05/21/19 13:35 82 05/21/19 13:23 81 05/21/19 12:23 97.7 F 85 20 122/81 95 Intake and Output 05/21/19 05/21/19 05/21/19 06:59 14:59 22:59 Other: Weight 76.204 kg GENERAL: The patient is alert and oriented x3, not in any acute distress. Well developed, well nourished. HEENT: Pupils are round and equally reacting to light. EOMI. No scleral icterus. No conjunctival pallor. Normocephalic, atraumatic. No pharyngeal erythema. No thyromegaly. CARDIOVASCULAR: S1 and S2 present. No murmurs, rubs, or gallops. -PULMONARY: Chest is clear to auscultation, b/l scattered exp wheezing ABDOMEN: Soft, nontender, nondistended, normoactive bowel sounds. No palpable organomegaly. MUSCULOSKELETAL: No joint swelling or deformity. EXTREMITIES: No cyanosis, clubbing, or pedal edema. NEUROLOGICAL: Gross neurological examination did not reveal any focal deficits. -SKIN: vesicular rash with yellow crustation on the left back dermatome going to the left flank Results CBC & Chem 7: 05/21/19 13:05 05/21/19 13:05 Labs: Abnormal Lab Results - Last 24 Hours (Table) 05/21/19 05/21/19 Range/Units 13:05 13:05 WBC 15.6 H (3.8-10.6) k/uL MCV 100.1 H (80.0-100.0) fL Neutrophils # 14.6 H (1.3-7.7) k/uL Lymphocytes # 0.3 L (1.0-4.8) k/uL Sodium 131 L (137-145) mmol/L Chloride 96 L (98-107) mmol/L Creatinine 0.41 L (0.66-1.25) mg/dL Thrombosis Risk Factor Assmnt - Choose All That Apply Any of the Below Risk Factors Present?: Yes Each Factor Represents 1 point: Age 41-60 years, Obesity (BMI >25), Serious lung disease incl. pneumonia (< 1month) Other Risk Factors: No Other congenital or acquired thrombophilia - If yes, enter type in comment: No Thrombosis Risk Factor Assessment Total Risk Factor Score: 3 Thrombosis Risk Factor Assessment Level: Moderate Risk Assessment and Plan Assessment: Acute COPD exacerbation Pneumonia combined fungal and bacterial infection Stable and improving cavitating right upper lobe abscess. Thought to be fungal infection/fungal ball. Continue with itraconazole. herpez zoster , shingles of the left flank Left shoulder pain, left shoulder injury status post fall. recent orthopedic input Recommended outpatient follow-up in 1 week. 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 History of Coronary artery disease with history of [place]. Ongoing nicotine addiction Plan: this is a pleasant 58 yo M who presents with copd , pna and shingles, continue with the same antibiotic as per ID team , also we will call pulmonary service who were following the case last week , Labs and medication were reviewed.. Continue same treatment. Continue with symptomatic treatment. Resume home medication. Monitor lytes and vitals. DVT and GI prophylaxis. Further recommendations of the clinical course of the patient DVT prophylaxis: Subcutaneous heparin GI Prophylaxis: Pepcid PT/OT: Pending
[2019-05-22] MEDS: predniSONE 20 MG TAB PO SCH (09:50)
--- NOTE | 2019-05-22 13:12 | P.CNPUL ---
History of Present Illness Consult date: 05/22/19 Requesting physician: David Chavez Reason for consult: dyspnea Chief complaint: Dyspnea History of present illness: This is a 58-year-old white male patient who is known to our service from prev ious admissions for complications related to COPD and was recently patient has been receiving treatment for right upper lobe pneumonia, with evidence of 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 Addition patient was found to have elevated Aspergillus fumigators IgE level. He has been on Sporanox and A ugmentin. Legionella was negative. Patient has been undergoing treatment since March 2019, when he presented with a massive right upper lobe pneumonia and shortness of breath. He is underlying FEV1 is 36% of predicted, he is on home oxygen. His smoking history is currently in remission, he still smokes marijuana. He states he has been compliant with his medications, and his most recent follow-up chest x-rays have been showing improvement in the appearance of the cavitating lesion in the right upper lobe. Patient came into the emergency department on 05/21/2019 with complaints of dyspnea, denies any fever or chills, occasional cough and sometimes he produces some sputum, generally not any worse than usual, he states his episodes of shortness of breath sometimes he panics. Denied any chills, no night sweats. In addition patient was having some burning pain in his left flank area, and he has shingles rash over his left back, along the T12 dermatome. Patient has been started Valtrex, he continues on his Sporanox, vancomycin was was given in the emergency department in addition to cefepime and Zovirax, patient is on Neurontin for pain control, he is in no acute distress on today's evaluation, his chest x-ray on admission showed COPD with cavitating lesion in the right upper lobe, appears to be stable to his most recent chest x-ray done on 05/12/2019. No significant cough or congestion. Lung sounds are diminished. No fever or chills, he is on 2 L of oxygen with pulse ox of 95%. Labs revealed a white count of 15.6, hemoglobin of 15.4, sodium of 1:30 with a potassium is 5.0, chloride is 96, CO2 is 26, BUN is 12 creatinine 0.42, urinalysis was negative. Review of Systems All systems: negative Constitutional: Denies chills, Denies fever Eyes: denies blurred vision, denies pain Ears, nose, mouth and throat: Denies headache, Denies sore throat Cardiovascular: Denies chest pain, Denies shortness of breath Respiratory: Reports cough with sputum, Reports dyspnea, Reports home oxygen, Reports respiratory infections, Denies cough Gastrointestinal: Denies abdominal pain, Denies diarrhea, Denies nausea, Denies vomiting Musculoskeletal: Denies myalgias Integumentary: Reports rash, Denies pruritus Neurological: Denies numbness, Denies weakness Psychiatric: Denies anxiety, Denies depression Endocrine: Denies fatigue, Denies weight change Past Medical History Past Medical History: Chest Pain / Angina, COPD, CVA/TIA, Hypertension, Myocardial Infarction (MS), Pneumonia, Respiratory Disorder, Skin Disorder Additional Past Medical History / Comment(s): 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 Last Myocardial Infarction Date:: unknown History of Any Multi-Drug Resistant Organisms: None Reported Past Surgical History: Orthopedic Surgery Additional Past Surgical History / Comment(s): metal plate left hand middle finger, right eye enucleation. Past Anesthesia/Blood Transfusion Reactions: No Reported Reaction Smoking Status: Former smoker - Past Family History Mother Family Medical History: Cancer Additional Family Medical History / Comment(s): Pt believes his Mom of Kidney Cancer Father Family Medical History: Cancer, COPD, Respiratory Disorder Additional Family Medical History / Comment(s): Melanoma Medications and Allergies Home Medications Medication Instructions Recorded Confirmed Type Melatonin 5 mg PO HS 11/14/18 05/21/19 History Montelukast [Singulair] 10 mg PO HS #30 tab 11/17/18 05/21/19 Rx Ipratropium-Albuterol Nebulize 3 ml INHALATION RT-QID PRN #60 12/15/18 05/21/19 Rx [Duoneb 0.5 mg-3 mg/3 ml Soln] ampul.neb Fluticasone/Salmeterol 1 puff INHALATION RT-BID 04/29/19 05/21/19 History [Fluticasone-Salmeterol 232-14] Gabapentin 800 mg PO Q6H PRN 04/29/19 05/21/19 History amLODIPine [Norvasc] 10 mg PO DAILY 04/29/19 05/21/19 History Albuterol Inhaler [Ventolin Hfa 1 - 2 puff INHALATION RT-Q6H PRN 05/11/19 05/21/19 History Inhaler] Escitalopram [Lexapro] 10 mg PO DAILY #15 tab 05/15/19 05/21/19 Rx guaiFENesin SYRUP 100MG/5ML 200 mg PO Q6H PRN #1 bottle 05/15/19 05/21/19 Rx [Robitussin] predniSONE See Taper PO DIRECTED 05/19/19 05/21/19 History Allergies Allergy/AdvReac Type Severity Reaction Status Date / Time peanut [Peanut Butter] AdvReac Nausea & Verified 05/21/19 13:21 Vomiting & Diarrhea Physical Exam Vitals: Vital Signs Temp Pulse Pulse Resp BP BP Pulse Ox 05/22/19 12:05 84 05/22/19 11:55 80 05/22/19 08:29 80 05/22/19 07:00 99.1 F 98 16 147/75 95 05/22/19 03:56 20 05/22/19 03:47 85 05/22/19 03:36 84 05/22/19 02:10 97.6 F 82 18 118/58 98 05/22/19 00:16 80 05/22/19 00:10 18 05/22/19 00:05 80 05/21/19 20:30 18 05/21/19 19:59 80 05/21/19 19:51 97.7 F 90 16 136/77 98 05/21/19 19:45 86 97 05/21/19 17:38 97.8 F 92 16 141/78 98 05/21/19 15:58 98.1 F 89 18 121/69 96 05/21/19 14:26 95 18 132/78 96 05/21/19 14:20 20 05/21/19 13:35 82 05/21/19 13:23 81 Intake and Output 05/21/19 05/22/19 05/22/19 22:59 06:59 14:59 Intake Total 350 320 Balance 350 320 Intake: Intake, IV Titration 350 Amount Cefepime 2 gm In Sodium 100 Chloride 0.9% 100 ml @ 200 mls/hr IVPB Q12H [facility] Rx#:[id number] Vancomycin 1,250 mg In 250 Sodium Chloride 0.9% 250 ml @ 125 mls/hr IVPB Q8H [facility] Rx#:[id number] Oral 320 Other: Voiding Method Urinal Urinal GENERAL EXAM: Alert, pleasant, 58-year-old white male, on 2 L of oxygen with a pulse ox of 95% comfortable in no apparent distress. HEAD: Normocephalic/atraumatic. EYES: Normal reaction of pupils, equal size in the left eye, patient has a prosthetic right eye. Conjunctiva pink, sclera white. NOSE: Clear with pink turbinates. THROAT: No erythema or exudates. NECK: No masses, no JVD, no thyroid enlargement, no adenopathy. CHEST: No chest wall deformity. Symmetrical expansion. LUNGS: Equal air entry with no crackles, wheeze, rhonchi or dullness. Congestive cough CVS: Regular rate and rhythm, normal S1 and S2, no gallops, no murmurs, no rubs ABDOMEN: Soft, nontender. No hepatosplenomegaly, normal bowel sounds, no guarding or rigidity. EXTREMITIES: No clubbing, no edema, no cyanosis, 2+ pulses and upper and lower extremities. MUSCULOSKELETAL: Muscle strength and tone normal. SPINE: No scoliosis or deformity SKIN: No rashes CENTRAL NERVOUS SYSTEM: Alert and oriented -3. No focal deficits, tone is normal in all 4 extremities. PSYCHIATRIC: Alert and oriented -3. Appropriate affect. Intact judgment and insight. Results - Laboratory Findings CBC and BMP: 05/21/19 13:05 05/21/19 13:05 Abnormal lab findings: Abnormal Labs 05/21/19 05/21/19 13:05 13:05 WBC 15.6 H MCV 100.1 H Neutrophils # 14.6 H Lymphocytes # 0.3 L Sodium 131 L Chloride 96 L Creatinine 0.41 L - Diagnostic Findings Chest x-ray: report reviewed, image reviewed Assessment and Plan Plan: Assessment: #1. Dyspnea likely related to mild exacerbation of COPD, and fungal pneumonia in the right upper lobe, which has been under treatment since March 2019 and is improving radiologically, patient has been on a combination of Sporanox and Augmentin #2. Herpes zoster rash #3. History of severe oxygen-dependent chronic obstructive pulmonary disease with the baseline FEV1 of 36% of predicted #4. Former smoker, currently in remission #5. History of present CVA involving the basal ganglia in October 2014 #6. 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 Diabetes with this type II #8. GERD/reflux #9. History of coronary artery disease with previous MS Plan: Continue current medical treatment, continue oral steroids, patient is on his Sporanox, chest x-ray shows stable or improving right upper lobe pneumonia related to Aspergillus fumigatus. Continue with breathing treatments. Patient is stable from pulmonary perspective, no plans for bronchoscopy at this time, he seems to be pretty close to his baseline. No distress, from pulmonary p erspective he can be discharged home with antibiotics per ID service recommendations I performed a history & physical examination of the patient and discussed their management with my nurse practitioner, Jeane Hwang. I reviewed the nurse practitioner's note and agree with the documented findings and plan of care. Lung sounds are positive for diminished breath sounds. The findings and the im pression was discussed with the patient. I attest to the documentation by the nurse practitioner. Time with Patient: Greater than 30
[2019-05-22] MEDS ORDERED: VANCOMYCIN IV PER PHARMACY 1 EACH MISC MISCELLANE PRN (15:31)
[2019-05-22] MEDS ORDERED: VANCOMYCIN 1,750 MG in SODIUM CHLORIDE 0.9% 500 ML 500 ML IVPB ONE (16:00)
--- NOTE | 2019-05-22 17:37 | P.PN ---
Subjective Progress Note Date: 05/22/19 Principal diagnosis: Dyspnea secondary to mild exacerbation of COPD/right lower lobe fungal pneumonia Herpes zoster rash 58-year-old white male patient who is known to our service from previous admissions for complications related to COPD and was recently patient has been receiving treatment for right upper lobe pneumonia, with evidence of 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 Addition patient was found to have elevated Aspergillus fumigators IgE level. He has been on Sporanox and Augmentin. Legionella was negative. Patient has been undergoing treatment since March, when he presented with a massive right upper lobe pneumonia and shortness of breath. He is underlying FEV1 is 36% of predicted, he is on home oxygen. His smoking history is currently in remission, he still smokes marijuana. He states he has been compliant with his medications, and his most recent follow-up chest x-rays have been showing improvement in the appearance of the cavitating lesion in the right upper lobe. Patient came into the emergency department on 05/21/2019 with complaints of dyspnea, denies any fever or chills, occasional cough and sometimes he produces some sputum, generally not any worse than usual, he states his episodes of shortness of breath sometimes he panics. Denied any chills, no night sweats. In addition patient was having some burning pain in his left flank area, and he has shingles rash over his left back, along the T12 dermatome. Patient has been started Valtrex, he continues on his Sporanox, vancomycin was was given in the emergency department in addition to cefepime and Zovirax, patient is on Neurontin for pain control, he is in no acute distress on today's evaluation, his chest x-ray on admission showed COPD with cavitating lesion in the right upper lobe, appears to be stable to his most recent chest x- ray done on 05/12/2019. No significant cough or congestion. Lung sounds are diminished. No fever or chills, he is on 2 L of oxygen with pulse ox of 95%. Labs revealed a white count of 15.6, hemoglobin of 15.4, sodium of 1:30 with a potassium is 5.0, chloride is 96, CO2 is 26, BUN is 12 creatinine 0.42, urinalysis was negative. Objective - Vital Signs Vital signs: Vital Signs Temp 97.6 F 05/22/19 14:57 Pulse 95 05/22/19 14:57 Resp 20 05/22/19 14:57 BP 137/74 05/22/19 14:57 Pulse Ox 97 05/22/19 14:57 Intake & Output 05/21/19 05/22/19 05/22/19 18:59 06:59 18:59 Intake Total 350 520 Balance 350 520 Weight 76.204 kg Intake: Intake, IV Titration 350 Amount Cefepime 2 gm In Sodium 100 Chloride 0.9% 100 ml @ 200 mls/hr IVPB Q12H [facility] Rx#:[id number] Vancomycin 1,250 mg In 250 Sodium Chloride 0.9% 250 ml @ 125 mls/hr IVPB Q8H [facility] Rx#:[id number] Oral 520 Other: Voiding Method Urinal # Voids 2 - Exam PHYSICAL EXAMINATION: GENERAL: The patient is alert and oriented x3, not in any acute distress. Well developed, well nourished. HEENT: Pupils are round and equally reacting to light. EOMI. No scleral icterus. No conjunctival pallor. Normocephalic, atraumatic. No pharyngeal erythema. No thyromegaly. CARDIOVASCULAR: S1 and S2 present. No murmurs, rubs, or gallops. PULMONARY: Chest is clear to auscultation, no wheezing or crackles. ABDOMEN: Soft, nontender, nondistended, normoactive bowel sounds. No palpable organomegaly. MUSCULOSKELETAL: No joint swelling or deformity. EXTREMITIES: No cyanosis, clubbing, or pedal edema. NEUROLOGICAL: Gross neurological examination did not reveal any focal deficits. SKIN: No rashes. - Labs CBC & Chem 7: 05/21/19 13:05 05/21/19 13:05 Labs: Microbiology - Last 24 Hours (Table) 05/21/19 14:20 Blood Culture Gram Stain - Preliminary Blood 05/21/19 14:20 Blood Culture - Final Blood Assessment and Plan Assessment: Acute COPD exacerbation Pneumonia combined fungal and bacterial infection Stable and improving cavitating right upper lobe abscess. Thought to be fungal infection/fungal ball. Continue with itraconazole. herpez zoster , shingles of the left flank Left shoulder pain, left shoulder injury status post fall. recent orthopedic input Recommended outpatient follow-up in 1 week. 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 History of Coronary artery disease with history of NM. Ongoing nicotine addiction Plan: 58 yo M who presents with copd , pna and shingles, continue with the same antibiotic as per ID team , also we will call pulmonary service who were following the case last week , Labs and medication were reviewed.. Continue same treatment. Continue with symptomatic treatment. Resume home medication. Monitor lytes and vitals. DVT and GI prophylaxis. Further recommendations of the clinical course of the pat ient DVT prophylaxis: Subcutaneous heparin GI Prophylaxis: Pepcid PT/OT: Pending Time with Patient: Greater than 30
--- NOTE | 2019-05-22 19:08 | PN ---
PROGRESS NOTE DATE OF SERVICE: 05/22/2019. REASON FOR FOLLOWUP: 1. Left T10 dermatome shingles. 2. Cavitating pneumonia with possible fungal. 3. Positive blood culture. INTERVAL HISTORY: The patient is currently afebrile. The patient has been breathing comfortably. The patient continues to have a cough, moderate in intensity with occasional sputum. No hemoptysis. No chest pain. No nausea or vomiting. Denies having any worsening pain to the left flank area. No diarrhea. The patient's blood culture came back positive with gram-positive cocci. REVIEW OF SYSTEMS: Positive points have been mentioned in HPI. Rest of systems negative. Past medical and surgical history reviewed; no change. Medication reviewed. PHYSICAL EXAMINATION: Blood pressure 137/74 with a pulse of 95, temperature 97.6. He is 97% on room air. General description is a middle-aged male lying in bed in no distress. RESPIRATORY SYSTEM: Unlabored breathing with coarse breath sounds in the bases bilaterally. No wheeze. HEART: S1, S2. Regular rate and rhythm. ABDOMEN: Soft. No tenderness. LABS: The patient's UA came back negative. However, blood culture with gram-positive cocci. DIAGNOSTIC IMPRESSION AND PLAN: 1. Patient with left T10 dermatome shingles. Continue with acyclovir to finish a 7-day course of therapy along with Lyrica or Neurontin for the postherpetic neuralgia. 2. Patient with right upper lobe cavitary pneumonia with a question of possible fungal; has been on Sporanox per Pulmonary and has shown improvement, with whom the patient follows closely. To continue with Sporanox per Pulmonary. Last sputum culture did grow a gram-negative, and no oral option available. Cefepime will be discontinued at discharge, as the patient apparently did show improvement without getting treatment for the same gram-negative. 3. Positive blood culture with gram-positive cocci with a question of possible skin contamination versus true pathogen. Blood culture will be repeated. Vancomycin will be added. If finalized as Staph epi, vancomycin will be discontinued. MMODL / IJN: [id number] /
[2019-05-22] MEDS: MELATONIN 5 MG TABLET PO SCH (22:23)
[2019-05-22] MEDS: MONTELUKAST 10 MG TAB PO SCH (22:23)
[2019-05-23] MEDS: valACYclovir 500 MG TAB PO SCH ×4 (00:13→23:16)
[2019-05-23] MEDS: VANCOMYCIN 1,500 MG in SODIUM CHLORIDE 0.9% 250 ML IVPB SCH ×4 (00:13→23:16)
[2019-05-23] MEDS: FLUTICASONE INHALATION SCH ×3 (00:17→20:50)
[2019-05-23] MEDS: SALMETEROL INHALATION SCH ×3 (00:17→20:50)
[2019-05-23] MEDS: CEFEPIME 2 GM in SODIUM CHLORIDE 0.9% 100 ML IVPB SCH ×2 (03:28→14:06)
[2019-05-23] MEDS: IPRATROPIUM-ALBUTEROL 3 ML NEB INHALATION SCH ×5 (04:11→19:44)
[2019-05-23 07:26] LABS: Basophils # (A) 0.1 k/uL (0-0.2); Basophils % (A) 0 %; Eosinophils % (A) 0 %; HCT 40.4 % (39.0-53.0); HGB 12.8 gm/dL (13.0-17.5); Lymphocytes # (A) 0.5 k/uL (1.0-4.8); Lymphocytes % (A) 3 %; MCH 33.1 pg (25.0-35.0); MCHC 31.5 g/dL (31.0-37.0); MCV 104.8 fL (80.0-100.0); Macrocytosis Moderate; Monocytes # (A) 0.7 k/uL (0-1.0); Monocytes % (A) 4 %; Neutrophils # (A) 17.2 k/uL (1.3-7.7); Neutrophils % (A) 93 %; Platelet Count 234 k/uL (150-450); RBC 3.86 m/uL (4.30-5.90); RDW 14.3 % (11.5-15.5); WBC 18.6 k/uL (3.8-10.6)
[2019-05-23] MEDS: FAMOTIDINE 20 MG/2 ML VIAL IV SCH (07:45)
[2019-05-23] MEDS: predniSONE 20 MG TAB PO SCH (07:45)
[2019-05-23] MEDS: traMADol 50 MG TAB PO PRN ×2 (07:45→20:50)
[2019-05-23] MEDS: guaiFENesin SYRUP 100MG/5ML 200 MG/10 ML CUP PO PRN ×3 (07:45→20:51)
[2019-05-23] MEDS: HEPARIN SODIUM,PORCINE 5,000 UNIT/ML 1 ML VIAL SQ SCH ×2 (07:45→20:50)
[2019-05-23 07:46] LABS: African American GFR (CKD) >90 (>60 ml/min/1.73 sqM); Anion Gap 5 mmol/L; Blood Urea Nitrogen 11 mg/dL (9-20); Calcium 8.9 mg/dL (8.4-10.2); Carbon Dioxide 29 mmol/L (22-30); Chloride 101 mmol/L (98-107); Glucose 134 mg/dL (74-99); Potassium 3.9 mmol/L (3.5-5.1); Sodium 135 mmol/L (137-145)
[2019-05-23] MEDS: GABAPENTIN 400 MG CAP PO PRN ×2 (07:46→20:50)
[2019-05-23] MEDS: ESCITALOPRAM 10 MG TAB PO SCH (07:47)
[2019-05-23] MEDS: ITRACONAZOLE 100 MG CAP PO SCH (07:47)
--- NOTE | 2019-05-23 16:25 | P.PN ---
Subjective Progress Note Date: 05/23/19 Principal diagnosis: Dyspnea secondary to mild exacerbation of COPD/right lower lobe fungal pneumonia Herpes zoster rash 58-year-old white male patient who is known to our service from previous admissions for complications related to COPD and was recently patient has been receiving treatment for right upper lobe pneumonia, with evidence of 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 Addition patient was found to have elevated Aspergillus fumigators IgE level. He has been on Sporanox and Augmentin. Legionella was negative. Patient has been undergoing treatment since March, when he presented with a massive right upper lobe pneumonia and shortness of breath. He is underlying FEV1 is 36% of predicted, he is on home oxygen. His smoking history is currently in remission, he still smokes marijuana. He states he has been compliant with his medications, and his most recent follow-up chest x-rays have been showing improvement in the appearance of the cavitating lesion in the right upper lobe. Patient came into the emergency department on 05/21/2019 with complaints of dyspnea, denies any fever or chills, occasional cough and sometimes he produces some sputum, generally not any worse than usual, he states his episodes of shortness of breath sometimes he panics. Denied any chills, no night sweats. In addition patient was having some burning pain in his left flank area, and he has shingles rash over his left back, along the T12 dermatome. Patient has been started Valtrex, he continues on his Sporanox, vancomycin was was given in the emergency department in addition to cefepime and Zovirax, patient is on Neurontin for pain control, he is in no acute distress on today's evaluation, his chest x-ray on admission showed COPD with cavitating lesion in the right upper lobe, appears to be stable to his most recent chest x- ray done on 05/12/2019. No significant cough or congestion. Lung sounds are diminished. No fever or chills, he is on 2 L of oxygen with pulse ox of 95%. Labs revealed a white count of 15.6, hemoglobin of 15.4, sodium of 1:30 with a potassium is 5.0, chloride is 96, CO2 is 26, BUN is 12 creatinine 0.42, urinalysis was negative. 05/23/2019 Patient is seen and evaluated in room; voices no specific complaints Vital signs remained stable; white blood count has trended from 15.6 yesterday to 18.6 this morning; patient remains afebrile; could be secondary to oral steroids; we will continue to monitor patient closely for tolerance a 24 hours keeping on current schedule of antibiotics; possible discharge in next 24 hours if patient remains stable Objective - Vital Signs Vital signs: Vital Signs Temp 97.6 F 05/23/19 07:00 Pulse 96 05/23/19 11:29 Resp 16 05/23/19 07:00 BP 142/69 05/23/19 07:00 Pulse Ox 97 05/23/19 07:00 Intake & Output 05/22/19 05/23/19 05/23/19 18:59 06:59 18:59 Intake Total 840 Balance 840 Intake: Oral 840 Other: Voiding Method Toilet Urinal # Voids 2 - Exam PHYSICAL EXAMINATION: GENERAL: The patient is alert and oriented x3, not in any acute distress. Well developed, well nourished. HEENT: Pupils are round and equally reacting to light. EOMI. No scleral icterus. No conjunctival pallor. Normocephalic, atraumatic. No pharyngeal erythema. No thyromegaly. CARDIOVASCULAR: S1 and S2 present. No murmurs, rubs, or gallops. PULMONARY: Chest is clear to auscultation, no wheezing or crackles. ABDOMEN: Soft, nontender, nondistended, normoactive bowel sounds. No palpable organomegaly. MUSCULOSKELETAL: No joint swelling or deformity. EXTREMITIES: No cyanosis, clubbing, or pedal edema. NEUROLOGICAL: Gross neurological examination did not reveal any focal deficits. SKIN: No rashes. - Labs CBC & Chem 7: 05/23/19 06:37 05/23/19 06:37 Labs: Abnormal Lab Results - Last 24 Hours (Table) 05/23/19 05/23/19 Range/Units 06:37 06:37 WBC 18.6 H (3.8-10.6) k/uL RBC 3.86 L (4.30-5.90) m/uL Hgb 12.8 L (13.0-17.5) gm/dL MCV 104.8 H (80.0-100.0) fL Neutrophils # 17.2 H (1.3-7.7) k/uL Lymphocytes # 0.5 L (1.0-4.8) k/uL Sodium 135 L (137-145) mmol/L Creatinine 0.47 L (0.66-1.25) mg/dL Glucose 134 H (74-99) mg/dL Microbiology - Last 24 Hours (Table) 05/21/19 14:20 Blood Culture Gram Stain - Preliminary Blood Blood Culture - Preliminary Coagulase Negative Staph 05/21/19 14:20 Blood Culture - Final Blood Assessment and Plan Assessment: Acute COPD exacerbation Pneumonia combined fungal and bacterial infection Stable and improving cavitating right upper lobe abscess. Thought to be fungal infection/fungal ball. Continue with itraconazole. herpez zoster , shingles of the left flank Left shoulder pain, left shoulder injury status post fall. recent orthopedic input Recommended outpatient follow-up in 1 week. 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 History of Coronary artery disease with history of [place]. Ongoing nicotine addiction Plan: 58 yo M who presents with copd , pna and shingles, continue with the same antibiotic as per ID team , also we will call pulmonary service who were following the case last week , Labs and medication were reviewed.. Continue same treatment. Continue with symptomatic treatment. Resume home medication. Monitor lytes and vitals. DVT and GI prophylaxis. Further recommendations of the clinical course of the patient DVT prophylaxis: Subcutaneous heparin GI Prophylaxis: Pepcid PT/OT: Pending Time with Patient: Greater than 30
[2019-05-23] MEDS: FAMOTIDINE 20 MG TAB PO SCH (20:49)
[2019-05-23] MEDS: MELATONIN 5 MG TABLET PO SCH (20:49)
[2019-05-24] MEDS: IPRATROPIUM-ALBUTEROL 3 ML NEB INHALATION SCH ×4 (00:32→12:20)
[2019-05-24] MEDS: CEFEPIME 2 GM in SODIUM CHLORIDE 0.9% 100 ML IVPB SCH (02:01)
[2019-05-24] MEDS: traMADol 50 MG TAB PO PRN ×2 (04:10→09:34)
[2019-05-24] MEDS ORDERED: VANCOMYCIN TROUGH DUE 1 EACH MISC MISCELLANE ONE (07:00)
[2019-05-24 07:01] LABS: Basophils # (A) 0.3 k/uL (0-0.2); Basophils % (A) 2 %; Eosinophils % (A) 0 %; HGB 12.8 gm/dL (13.0-17.5); Lymphocytes % (A) 6 %; MCH 32.1 pg (25.0-35.0); MCHC 30.5 g/dL (31.0-37.0); MCV 105.4 fL (80.0-100.0); Macrocytosis Moderate; Mean Platelet Volume 6.7; Monocytes # (A) 0.9 k/uL (0-1.0); Monocytes % (A) 6 %; Neutrophils # (A) 13.6 k/uL (1.3-7.7); Neutrophils % (A) 85 %; Platelet Count 245 k/uL (150-450); RBC 3.99 m/uL (4.30-5.90); RDW 14.2 % (11.5-15.5); WBC 16.1 k/uL (3.8-10.6)
[2019-05-24] MEDS: FLUTICASONE INHALATION SCH (07:01)
[2019-05-24] MEDS: SALMETEROL INHALATION SCH (07:01)
[2019-05-24 07:03] VITALS: BP 133/77; RESP 18; TEMP 98.1
[2019-05-24 07:17] LABS: African American GFR (CKD) >90 (>60 ml/min/1.73 sqM); Anion Gap 5 mmol/L; Blood Urea Nitrogen 11 mg/dL (9-20); Carbon Dioxide 32 mmol/L (22-30); Chloride 98 mmol/L (98-107); Glucose 73 mg/dL (74-99); Potassium 4.2 mmol/L (3.5-5.1); Sodium 135 mmol/L (137-145)
[2019-05-24] MEDS: HEPARIN SODIUM,PORCINE 5,000 UNIT/ML 1 ML VIAL SQ SCH (07:42)
[2019-05-24] MEDS: VANCOMYCIN 1,500 MG in SODIUM CHLORIDE 0.9% 250 ML IVPB SCH (07:42)
[2019-05-24] MEDS: predniSONE 20 MG TAB PO SCH (07:42)
[2019-05-24] MEDS: FAMOTIDINE 20 MG TAB PO SCH (07:42)
[2019-05-24] MEDS: ESCITALOPRAM 10 MG TAB PO SCH (07:43)
[2019-05-24] MEDS: valACYclovir 500 MG TAB PO SCH (07:43)
[2019-05-24] MEDS: ITRACONAZOLE 100 MG CAP PO SCH (07:43)
[2019-05-24] MEDS: GABAPENTIN 400 MG CAP PO PRN (09:34)
[2019-05-24 12:22] VITALS: PULSE 95
--- NOTE | 2019-05-24 12:49 | P.DS ---
Providers Date of admission: 05/21/19 14:00 Expected date of discharge: 05/24/19 Attending physician: David Chavez MD Consults: 05/21/19 13:50 Consult Physician Urgent Consulting Provider: Isis Vogt Consult Reason/Comments: pna and COPD Do you want consulting provider notified?: Yes Consult Physician Urgent Consulting Provider: Gurpreet Owen Consult Reason/Comments: pna and shingles Do you want consulting provider notified?: Yes Primary care physician: [facility] Course: 58-year-old white male patient who is known to our service from previous admissions for complications related to COPD and was recently patient has been receiving treatment for right upper lobe pneumonia, with evidence of 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 Addition patient was found to have elevated Aspergillus fumigators IgE level. He has been on Sporanox and Augmentin. Legionella was negative. Patient has been undergoing treatment since March 2019, when he presented with a massive right upper lobe pneumonia and shortness of breath. He is underlying FEV1 is 36% of predicted, he is on home oxygen. His smoking history is currently in remission, he still smokes marijuana. He states he has been compliant with his medications, and his most recent follow-up chest x-rays have been showing improvement in the appearance of the cavitating lesion in the right upper lobe. Patient came into the emergency department on 05/21/2019 with complaints of dyspnea, denies any fever or chills, occasional cough and sometimes he produces some sputum, generally not any worse than usual, he states his episodes of shortness of breath sometimes he panics. Denied any chills, no night sweats. In addition patient was having some burning pain in his left flank area, and he has shingles rash over his left back, along the T12 dermatome. Patient has been started Valtrex, he continues on his Sporanox, vancomycin was was given in the emergency department in addition to cefepime and Zovirax, patient is on Neurontin for pain control, he is in no acute distress on today's evaluation, his chest x-ray on admission showed COPD with cavitating lesion in the right upper lobe, appears to be stable to his most recent chest x- ray done on 05/12/2019. No significant cough or congestion. Lung sounds are diminished. No fever or chills, he is on 2 L of oxygen with pulse ox of 95%. Labs revealed a white count of 15.6, hemoglobin of 15.4, sodium of 1:30 with a potassium is 5.0, chloride is 96, CO2 is 26, BUN is 12 creatinine 0.42, urinalysis was negative. Continue current medical treatment, continue oral steroids, patient is on his Sporanox, chest x-ray shows stable or improving right upper lobe pneumonia related to Aspergillus fumigatus. Continue with breathing treatments. Patient is stable from pulmonary perspective, no plans for bronchoscopy at this time, he seems to be pretty close to his baseline. No distress, from pulmonary perspective he can be discharged home with antibiotics per ID service recommendations Patient Condition at Discharge: Fair Plan - Discharge Summary Discharge Rx Participant: No New Discharge Prescriptions: Continue Melatonin 5 mg PO HS Montelukast [Singulair] 10 mg PO HS #30 tab Ipratropium-Albuterol Nebulize [Duoneb 0.5 mg-3 mg/3 ml Soln] 3 ml INHALATION RT-QID PRN #60 ampul.neb PRN Reason: Shortness Of Breath Gabapentin 800 mg PO Q6H PRN PRN Reason: Pain Fluticasone/Salmeterol [Fluticasone-Salmeterol 232-14] 1 puff INHALATION RT- BID amLODIPine [Norvasc] 10 mg PO DAILY Albuterol Inhaler [Ventolin Hfa Inhaler] 1 - 2 puff INHALATION RT-Q6H PRN PRN Reason: Shortness Of Breath guaiFENesin SYRUP 100MG/5ML [Robitussin] 200 mg PO Q6H PRN #1 bottle PRN Reason: Cough Escitalopram [Lexapro] 10 mg PO DAILY #15 tab predniSONE See Taper PO DIRECTED Discharge Medication List Melatonin 5 mg PO HS 11/14/18 [History] Montelukast [Singulair] 10 mg PO HS #30 tab 11/17/18 [Rx] Ipratropium-Albuterol Nebulize [Duoneb 0.5 mg-3 mg/3 ml Soln] 3 ml INHALATION RT-QID PRN #60 ampul.neb 12/15/18 [Rx] Fluticasone/Salmeterol [Fluticasone-Salmeterol 232-14] 1 puff INHALATION RT-BID 04/29/19 [History] Gabapentin 800 mg PO Q6H PRN 04/29/19 [History] amLODIPine [Norvasc] 10 mg PO DAILY 04/29/19 [History] Albuterol Inhaler [Ventolin Hfa Inhaler] 1 - 2 puff INHALATION RT-Q6H PRN 05/11/19 [History] Escitalopram [Lexapro] 10 mg PO DAILY #15 tab 05/15/19 [Rx] guaiFENesin SYRUP 100MG/5ML [Robitussin] 200 mg PO Q6H PRN #1 bottle 05/15/19 [Rx] predniSONE See Taper PO DIRECTED 05/19/19 [History] Follow up Appointment(s)/Referral(s): [facility], [NON-STAFF] - Urszula Carrasco MD [Primary Care Provider] - 1-2 days Discharge Disposition: HOME SELF-CARE
== END 2019-05-24 14:34 | disposition home health service (06) | DRG 190 ==
LOC: EC 12:21 → 4SSUR 14:00
PROVIDERS: ADMIT Internal Medicine; ATTEND Internal Medicine
DX: J44.1 Chronic obstructive pulmonary disease with (acute) exacerbation (principal); J85.1 Abscess of lung with pneumonia; B44.9 Aspergillosis, unspecified; J96.11 Chronic respiratory failure with hypoxia; J44.0 Chronic obstructive pulmonary disease with (acute) lower respiratory infection; I10 Essential (primary) hypertension; I25.10 Atherosclerotic heart disease of native coronary artery without angina pectoris; B02.9 Zoster without complications; E11.9 Type 2 diabetes mellitus without complications; F41.0 Panic disorder [episodic paroxysmal anxiety]; G89.4 Chronic pain syndrome; H54.61 Unqualified visual loss, right eye, normal vision left eye; I25.2 Old myocardial infarction; K21.9 Gastro-esophageal reflux disease without esophagitis; Z79.899 Other long term (current) drug therapy; Z80.51 Family history of malignant neoplasm of kidney; Z80.8 Family history of malignant neoplasm of other organs or systems; Z82.5 Family history of asthma and other chronic lower respiratory diseases; Z86.19 Personal history of other infectious and parasitic diseases; Z86.73 Personal history of transient ischemic attack (TIA), and cerebral infarction without residual deficits; Z87.891 Personal history of nicotine dependence; Z90.01 Acquired absence of eye; Z99.81 Dependence on supplemental oxygen; S49.92XD Unspecified injury of left shoulder and upper arm, subsequent encounter; M75.01 Adhesive capsulitis of right shoulder; Z87.01 Personal history of pneumonia (recurrent); Z91.81 History of falling; Z91.010 Allergy to peanuts
CPT/HCPCS: 36415; 71046; 80048; 80053; 80202; 81003; 85025; 87040; 93005; 94640; 96361; 96365; 96367; 99285

== ENCOUNTER → 2019-06-04 | Outpatient (CLI) | payer OTHER ==
[2019-06-04 09:10] VITALS: BP 136/95; PULSE 58; RESP 18
--- NOTE | 2019-06-04 09:50 | P.PAINCN ---
History of Present Illness - Reason for Consult Consult date: 06/04/19 - History of Present Illness This is a 58 years old male, with a chronic history of the left shoulder pain, which is increased in intensity over the last 3 months, the pain currently is constant and radiates from the left shoulder blade area towards the left humerus, constant aching pain, and occasionally he had some numbness in his fingers, he feels that his left arm is very weak, he had MRI of the left shoulder done that showed avascular necrosis of the left shoulder, and he is not candidate for surgical interventions(left shoulder replacement ) because he had severe COPD , Past Medical History Past Medical History: Chest Pain / Angina, COPD, CVA/TIA, Hypertension, Myocardial Infarction ([place]), Pneumonia, Respiratory Disorder, Skin Disorder Additional Past Medical History / Comment(s): R upper lobe consolidation thought to be fungal/+asperigillus fumigatus, chronic hypoxic respiratory failure/ home O2 at 2L/[place] ATC, 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 Last Myocardial Infarction Date:: unknown History of Any Multi-Drug Resistant Organisms: None Reported Past Surgical History: Orthopedic Surgery Additional Past Surgical History / Comment(s): metal plate left hand middle finger, right eye enucleation. Past Anesthesia/Blood Transfusion Reactions: No Reported Reaction Past Psychological History: Depression, Panic Disorder Additional Psychological History / Comment(s): Lives in apartment, 17 steps to climb.Has a nebulizer/oxygen. 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 - Past Family History Mother Family Medical History: Cancer Additional Family Medical History / Comment(s): Pt believes his Mom of Kidney Cancer Father Family Medical History: Cancer, COPD, Respiratory Disorder Additional Family Medical History / Comment(s): Melanoma Medications and Allergies Home Medications Medication Instructions Recorded Confirmed Type Melatonin 5 mg PO HS 11/14/18 06/04/19 History Montelukast [Singulair] 10 mg PO HS #30 tab 11/17/18 06/04/19 Rx Ipratropium-Albuterol Nebulize 3 ml INHALATION RT-QID PRN #60 12/15/18 06/04/19 Rx [Duoneb 0.5 mg-3 mg/3 ml Soln] ampul.neb Fluticasone/Salmeterol 1 puff INHALATION RT-BID 04/29/19 06/04/19 History [Fluticasone-Salmeterol 232-14] Gabapentin 800 mg PO Q6H PRN 04/29/19 06/04/19 History amLODIPine [Norvasc] 10 mg PO DAILY 04/29/19 06/04/19 History Albuterol Inhaler [Ventolin Hfa 1 - 2 puff INHALATION RT-Q6H PRN 05/11/19 06/04/19 History Inhaler] Escitalopram [Lexapro] 10 mg PO DAILY #15 tab 05/15/19 06/04/19 Rx guaiFENesin SYRUP 100MG/5ML 200 mg PO Q6H PRN #1 bottle 05/15/19 06/04/19 Rx [Robitussin] Itraconazole [Onmel] 200 mg PO DAILY #30 tablet 05/24/19 06/04/19 Rx valACYclovir HCL [Valtrex] 1,000 mg PO TID #15 tablet 05/24/19 06/04/19 Rx Famotidine [Pepcid AC] 10 mg PO DAILY 06/04/19 06/04/19 History Nicotine 14Mg/24Hr Patch [Habitrol] 1 patch TD DAILY 06/04/19 06/04/19 History Allergies Allergy/AdvReac Type Severity Reaction Status Date / Time peanut [Peanut Butter] AdvReac Nausea & Verified 06/04/19 08:57 Vomiting & Diarrhea Physical Exam Vitals: Vital Signs Pulse Resp BP Pulse Ox 06/04/19 08:59 58 L 18 136/95 98 Intake and Output 06/03/19 06/04/19 06/04/19 22:59 06:59 14:59 Other: Weight 76.204 kg REVIEW OF ORGAN SYSTEMS: CONSTITUTIONAL: No fevers or chills. No recent weight loss. 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 HEENT: No difficulties with hearing. No nosebleeds. No difficulty swallowing. RESPIRATORY: Past pneumonia. troubles with breathing , oxygen dependent, severe COPD CARDIOVASCULAR: History of angina and coronary artery disease GASTROINTESTINAL: Denies fatty food intolerance. Has change in bowel habits and gas bloat. GENITOURINARY: Denies any blood in urine. Has increased urinary frequency. NEUROLOGICAL: No seizure disorders or headaches. MUSCULOSKELETAL: Had left shoulder pain, stiffness or joint arthritis. PSYCHIATRIC: history of depression ,no suicidal tho ughts. ENDOCRINE: Denies current thyroid disorders. Denies any blood sugar glucose intolerance. HEME/LYMPHATIC: Denies any lumps and bumps around the neck. History of deep venous thrombosis. ALLERGY/IMMUNOLOGY: History of herpes zoster, currently on acyclovir BREAST: Denies current breast lumps, pain or nipple discharge. Physical Examinations : Constitutiona : Cooperative , not in acute distress . HEENT : nech : supple , no Lymphadenopathy , normal thyroid size . eyes : Blind on the right ENT : normal of hearing , normal oropharynx , no Thrush . Respiratory : Chest clear to auscultations Bilaterally , no wheezing , no Rhonchi . Cardiovascula : regular rate and rhythem , S1 , S2 , no S3 , no S4. Gastrointestina : abdomen soft no tenderness , bowel sounds , no organomegally . Genitourinary : Defferred . neurologic : Weakness left arm psychatric : alert , oriented X 3 , appropriate affect , intact judgment and insight . Lymphatic : no Lymphadenopathy . musculoskeltal : Cervical Spine motor stregnth in the deltoid and biceps, normal right side , decreased Left side motor stregnth biceps and the wrist extensors normal right side , decreased left side . motor stregnth in the triceps muscle . normal Right side , decreased Left side deep tendon reflexes normal at the biceps , normal at Brachioradialis , normal at triceps. cervical facet loading test: Positive Bilaterally Left shoulder examination= decreased abduction, abduction ,and lateral rotation of the left shoulder Results Comments: MRI of the left shoulder done at [facility] on 05/08/2019 =showed osteonecrosis with collapse of the humeral head Assessment and Plan Plan: Assessment and plan= left shoulder pain secondary to avascular necrosis of the left shoulder Patient could benefit from Lidoderm patch 5% to be applied to the left shoulder area 12 hours on 12 hours off Patient could benefit from left side suprascapular nerve block and possible pulsed RFA in the left suprascapular nerve if he had a positive result with the block Time with Patient: Greater than 30 PQRS Measure Charge Sheet Measure #130: Documentation of Current Meds in Medical Chart: Patient's medi cations documented in chart Measure #226: Tobacco Use: Screen & Cessation Intervention: Pt not a tobacco user Measure #111: Pneumonia Vaccination: Pneumococcal vaccine NOT administered or previously given Measure #47: Advance Care Plan: Advance care planning discussed & documented, pt chose/unable to give Measure #412: Opioid Treatment Agreement: No documentation of signed opioid treatment agreement Measure #408: Opioid Therapy Follow-up Evaluation: Patient had NO f/u eval minimum every 3 months during opioid therapy Measure #317: Preventitive Care & Scrn High Bld Press & F/U: Normal blood pressure, f/u not required Measure #128: Body Mass Index (BMI) Screening & Follow-up: BMI documented ABOVE normal parameters - f/u documented Measure #131: Pain Assessment & Follow-up: Pain positive & plan documented, Follow-up scheduled Measure #431: Unhealthy Alcohol Use Preventative Care & Scrn: Patient not identified as an unhealthy alcohol user PQRS Narrative: Smoking Status Former smoker Blood Pressure 136/95 Pain Intensity [Left Shoulder] 9 Scale Used Numeric (1 - 10) Hx Alcohol Use (MH) Yes Home Medications: Ambulatory Orders Melatonin 5 mg PO HS 11/14/18 Montelukast [Singulair] 10 mg PO HS #30 tab 11/17/18 Ipratropium-Albuterol Nebulize [Duoneb 0.5 mg-3 mg/3 ml Soln] 3 ml INHALATION RT-QID PRN #60 ampul.neb 12/15/18 Fluticasone/Salmeterol [Fluticasone-Salmeterol 232-14] 1 puff INHALATION RT-BID 04/29/19 Gabapentin 800 mg PO Q6H PRN 04/29/19 amLODIPine [Norvasc] 10 mg PO DAILY 04/29/19 Albuterol Inhaler [Ventolin Hfa Inhaler] 1 - 2 puff INHALATION RT-Q6H PRN 05/11/19 Escitalopram [Lexapro] 10 mg PO DAILY #15 tab 05/15/19 guaiFENesin SYRUP 100MG/5ML [Robitussin] 200 mg PO Q6H PRN #1 bottle 05/15/19 Itraconazole [Onmel] 200 mg PO DAILY #30 tablet 05/24/19 valACYclovir HCL [Valtrex] 1,000 mg PO TID #15 tablet 05/24/19 Famotidine [Pepcid AC] 10 mg PO DAILY 06/04/19 Nicotine 14Mg/24Hr Patch [Habitrol] 1 patch TD DAILY 06/04/19
== END | disposition home or self-care (01) ==
LOC: PNWHC3 08:50
PROVIDERS: ATTEND Specialist
DX: M87.012 Idiopathic aseptic necrosis of left shoulder (principal); J44.9 Chronic obstructive pulmonary disease, unspecified; I10 Essential (primary) hypertension; Z87.891 Personal history of nicotine dependence; Z79.890 Hormone replacement therapy; Z79.51 Long term (current) use of inhaled steroids; Z79.899 Other long term (current) drug therapy; Z91.010 Allergy to peanuts
CPT/HCPCS: 99211

== ENCOUNTER 2019-06-08 17:11 | Inpatient (IN) | payer OTHER ==
[2019-06-08] MEDS ORDERED: methylPREDNISolone SOD SUCCI 125 MG/2 ML VIAL IV STA (17:41)
[2019-06-08] MEDS ORDERED: IPRATROPIUM-ALBUTEROL 3 ML NEB INHALATION STA (17:41)
--- NOTE | 2019-06-08 17:44 | ED ---
General Adult HPI - General Chief complaint: Shortness of Breath Stated complaint: SOB Time Seen by Provider: 06/08/19 17:20 Source: patient, EMS, RN notes reviewed Mode of arrival: EMS Limitations: physical limitation - History of Present Illness Initial comments: This is a 58-year-old male who presents emergency department with past medical history significant for COPD and has recently had pneumonia. Patient comes in today because he states last evening his difficulty breathing got conservative worse. Patient states coughing a little more than normal and coughing up some sputum. Patient denies any chest pain or palpitations. Patient denies any fever chills per patient denies any lightheadedness or dizziness. Patient denies headache patient denies numbness weakness. Patient denies abdominal pain patient denies nausea vomiting diarrhea. Patient denies any recent injury or trauma. Patient denies any calf tenderness. - Related Data Home Medications Medication Instructions Recorded Confirmed Melatonin 5 mg PO HS 11/14/18 06/08/19 Fluticasone/Salmeterol 1 puff INHALATION RT-BID 04/29/19 06/08/19 [Fluticasone-Salmeterol 232-14] Gabapentin 800 mg PO Q6H PRN 04/29/19 06/08/19 amLODIPine [Norvasc] 10 mg PO DAILY 04/29/19 06/08/19 Albuterol Inhaler [Ventolin Hfa 1 - 2 puff INHALATION RT-Q6H PRN 05/11/19 06/08/19 Inhaler] Famotidine [Pepcid AC] 10 mg PO DAILY 06/04/19 06/08/19 Nicotine 14Mg/24Hr Patch [Habitrol] 1 patch TD DAILY 06/04/19 06/08/19 Previous Rx's Medication Instructions Recorded Montelukast [Singulair] 10 mg PO HS #30 tab 11/17/18 Ipratropium-Albuterol Nebulize 3 ml INHALATION RT-QID PRN #60 12/15/18 [Duoneb 0.5 mg-3 mg/3 ml Soln] ampul.neb Escitalopram [Lexapro] 10 mg PO DAILY #15 tab 05/15/19 guaiFENesin SYRUP 100MG/5ML 200 mg PO Q6H PRN #1 bottle 05/15/19 [Robitussin] Itraconazole [Onmel] 200 mg PO DAILY #30 tablet 10/06/19 valACYclovir HCL [Valtrex] 1,000 mg PO TID #15 tablet 05/24/19 Allergies Allergy/AdvReac Type Severity Reaction Status Date / Time peanut [Peanut Butter] AdvReac Nausea & Verified 06/08/19 17:41 Vomiting & Diarrhea Review of Systems ROS Statement: Those systems with pertinent positive or pertinent negative responses have been documented in the HPI. ROS Other: All systems not noted in ROS Statement are negative. 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 Last Myocardial Infarction Date:: unknown History of Any Multi-Drug Resistant Organisms: None Reported Past Surgical History: Orthopedic Surgery Additional Past Surgical History / Comment(s): metal plate left hand middle f arley, right eye enucleation. Past Anesthesia/Blood Transfusion Reactions: No Reported Reaction Past Psychological History: Anxiety, Depression, Panic Disorder Smoking Status: Former smoker Past Alcohol Use History: Occasional Past Drug Use History: Marijuana - Past Family History Mother Family Medical History: Cancer Additional Family Medical History / Comment(s): Pt believes his Mom of Kidney Cancer Father Family Medical History: Cancer, COPD, Respiratory Disorder Additional Family Medical History / Comment(s): Melanoma General Exam - General Exam Comments Initial Comments: GENERAL: Patient is well-developed and well-nourished. Patient is nontoxic and well- hydrated and is in mild distress. ENT: Neck is soft and supple. No significant lymphadenopathy is noted. Oropharynx is clear. Moist mucous membranes. Neck has full range of motion without elic iting any pain. EYES: The sclera were anicteric and conjunctiva were pink and moist. Extraocular movements were intact and pupils were equal round and reactive to light. Eyelids were unremarkable. PULMONARY: Patient has some expiratory wheezing bilaterally. CARDIOVASCULAR: There is a regular rate and rhythm without any murmurs gallops or rubs. ABDOMEN: Soft and nontender with normal bowel sounds. No palpable organomegaly was noted. There is no palpable pulsatile mass. SKIN: Skin is clear with no lesions or rashes and otherwise unremarkable. NEUROLOGIC: Patient is alert and oriented x3. Cranial nerves II through XII are grossly intact. Motor and sensory are also intact. Normal speech, volume and content. Symmetrical smile. MUSCULOSKELETAL: Normal extremities with adequate strength and full range of motion. LYMPHATICS: No significant lymphadenopathy is noted PSYCHIATRIC: Normal psychiatric evaluation. Limitations: physical limitation Course Vital Signs 06/08/19 06/08/19 06/08/19 17:23 17:27 18:00 Temperature 99.1 F Pulse Rate 92 98 Respiratory 18 18 18 Rate Blood Pressure 146/81 O2 Sat by Pulse 9 L Oximetry 06/08/19 06/08/19 18:07 18:08 Temperature Pulse Rate 90 100 Respiratory 16 18 Rate Blood Pressure 128/83 O2 Sat by Pulse 95 Oximetry Medical Decision Making - Medical Decision Making EKG shows normal sinus rhythm at 92 bpm PA interval is 128 QRSs 80 QT interval 360 QTC is 445. Patient's EKG shows no ST segment elevation or depression or T wave abnormalities are noted. Chest x-ray shows no acute abnormalities continues so the cavitary lesion in the right upper lobe. Patient continues to wheeze expiratory early. Patient will be admitted for COPD. I spoke with the [employer] for [facility]. Patient will be admitted for COPD. Patient will continue steroids and albuterol treatments on the floor. - Lab Data Result diagrams: 06/08/19 18:05 06/08/19 18:05 Lab Results 06/08/19 06/08/19 06/08/19 Range/Units 18:05 18:05 18:05 WBC 8.6 (3.8-10.6) k/uL RBC 4.10 L (4.30-5.90) m/uL Hgb 14.1 (13.0-17.5) gm/dL Hct 40.4 (39.0-53.0) % MCV 98.7 D (80.0-100.0) fL MCH 34.5 (25.0-35.0) pg MCHC 35.0 (31.0-37.0) g/dL RDW 15.1 (11.5-15.5) % Plt Count 208 (150-450) k/uL Neutrophils % 73 % Lymphocytes % 16 % Monocytes % 7 % Eosinophils % 2 % Basophils % 1 % Neutrophils # 6.3 (1.3-7.7) k/uL Lymphocytes # 1.4 (1.0-4.8) k/uL Monocytes # 0.6 (0-1.0) k/uL Eosinophils # 0.2 (0-0.7) k/uL Basophils # 0.1 (0-0.2) k/uL Macrocytosis Slight PT (9.0-12.0) sec INR (<1.2) APTT (22.0-30.0) sec Sodium 135 L (137-145) mmol/L Potassium 4.5 (3.5-5.1) mmol/L Chloride 102 (98-107) mmol/L Carbon Dioxide 26 (22-30) mmol/L Anion Gap 7 mmol/L BUN 12 (9-20) mg/dL Creatinine 0.54 L (0.66-1.25) mg/dL Est GFR (CKD-EPI)AfAm >90 (>60 ml/min/1.73 sqM) Est GFR (CKD-EPI)NonAf >90 (>60 ml/min/1.73 sqM) Glucose 61 L (74-99) mg/dL Plasma Lactic Acid Gray 0.9 (0.7-2.0) mmol/L Calcium 9.5 (8.4-10.2) mg/dL Magnesium 1.4 L (1.6-2.3) mg/dL Total Bilirubin 1.0 (0.2-1.3) mg/dL AST 28 (17-59) U/L ALT 28 (21-72) U/L Alkaline Phosphatase 59 (38-126) U/L Troponin I (0.000-0.034) ng/mL Total Protein 6.5 (6.3-8.2) g/dL Albumin 3.8 (3.5-5.0) g/dL 06/08/19 06/08/19 Range/Units 18:05 18:05 WBC (3.8-10.6) k/uL RBC (4.30-5.90) m/uL Hgb (13.0-17.5) gm/dL Hct (39.0-53.0) % MCV (80.0-100.0) fL MCH (25.0-35.0) pg MCHC (31.0-37.0) g/dL RDW (11.5-15.5) % Plt Count (150-450) k/uL Neutrophils % % Lymphocytes % % Monocytes % % Eosinophils % % Basophils % % Neutrophils # (1.3-7.7) k/uL Lymphocytes # (1.0-4.8) k/uL Monocytes # (0-1.0) k/uL Eosinophils # (0-0.7) k/uL Basophils # (0-0.2) k/uL Macrocytosis PT 10.0 (9.0-12.0) sec INR 0.9 (<1.2) APTT 22.6 (22.0-30.0) sec Sodium (137-145) mmol/L Potassium (3.5-5.1) mmol/L Chloride (98-107) mmol/L Carbon Dioxide (22-30) mmol/L Anion Gap mmol/L BUN (9-20) mg/dL Creatinine (0.66-1.25) mg/dL Est GFR (CKD-EPI)AfAm (>60 ml/min/1.73 sqM) Est GFR (CKD-EPI)NonAf (>60 ml/min/1.73 sqM) Glucose (74-99) mg/dL Plasma Lactic Acid Gray (0.7-2.0) mmol/L Calcium (8.4-10.2) mg/dL Magnesium (1.6-2.3) mg/dL Total Bilirubin (0.2-1.3) mg/dL AST (17-59) U/L ALT (21-72) U/L Alkaline Phosphatase (38-126) U/L Troponin I <0.012 (0.000-0.034) ng/mL Total Protein (6.3-8.2) g/dL Albumin (3.5-5.0) g/dL Disposition Clinical Impression: COPD exacerbation, Fungal infection of lung Disposition: ADMITTED IP TO THIS HOSP Referrals: Urszula Carrasco MD [Primary Care Provider] - 1-2 days Time of Disposition: 20:42
[2019-06-08 18:31] LABS: Basophils # (A) 0.1 k/uL (0-0.2); Basophils % (A) 1 %; Eosinophils # (A) 0.2 k/uL (0-0.7); Eosinophils % (A) 2 %; HCT 40.4 % (39.0-53.0); HGB 14.1 gm/dL (13.0-17.5); Lymphocytes # (A) 1.4 k/uL (1.0-4.8); Lymphocytes % (A) 16 %; MCH 34.5 pg (25.0-35.0); Macrocytosis Slight; Mean Platelet Volume 5.9; Monocytes # (A) 0.6 k/uL (0-1.0); Monocytes % (A) 7 %; Neutrophils # (A) 6.3 k/uL (1.3-7.7); Neutrophils % (A) 73 %; Platelet Count 208 k/uL (150-450); RDW 15.1 % (11.5-15.5); WBC 8.6 k/uL (3.8-10.6)
[2019-06-08 18:33] LABS: MCV 98.7 fL (80.0-100.0)
[2019-06-08 18:37] LABS: ALT 28 U/L (21-72); AST 28 U/L (17-59); African American GFR (CKD) >90 (>60 ml/min/1.73 sqM); Albumin 3.8 g/dL (3.5-5.0); Alkaline Phosphatase 59 U/L (38-126); Anion Gap 7 mmol/L; Blood Urea Nitrogen 12 mg/dL (9-20); Calcium 9.5 mg/dL (8.4-10.2); Carbon Dioxide 26 mmol/L (22-30); Chloride 102 mmol/L (98-107); Glucose 61 mg/dL (74-99); Magnesium 1.4 mg/dL (1.6-2.3); Non-African American GFR(CKD) >90 (>60 ml/min/1.73 sqM); Sodium 135 mmol/L (137-145); Total Protein 6.5 g/dL (6.3-8.2)
[2019-06-08 18:43] LABS: Potassium 4.5 mmol/L (3.5-5.1)
[2019-06-08 18:57] LABS: INR 0.9 (<1.2); Partial Thromboplastin Time 22.6 sec (22.0-30.0)
--- NOTE | 2019-06-08 19:51 | XR ---
EXAMINATION TYPE: XR chest 2V DATE OF EXAM: 06/08/2019 COMPARISON: 05/21/2019, CT chest 05/11/2019 INDICATION: Difficulty breathing TECHNIQUE: Frontal and lateral views of the chest are obtained. FINDINGS: The heart size is normal. The pulmonary vasculature is normal. There is a right upper lobe infiltrate. Pneumonia could be considered. Underlying neoplasm should be considered. Cavitary lesion with an air-fluid level is present. Findings are similar to the CT findin gs. IMPRESSION: 1. Lung mass or consolidation right upper lobe with an air-fluid level and cavitation. Neoplasm and i nfiltrate are within the differential. Follow-up is recommended
[2019-06-09] MEDS: methylPREDNISolone SOD SUCCI 125 MG/2 ML VIAL IV SCH ×5 (00:12→22:59)
[2019-06-09] MEDS: IPRATROPIUM-ALBUTEROL 3 ML NEB INHALATION PRN ×2 (00:45→03:53)
[2019-06-09 06:24] LABS: Glucose,Whole Blood 280 mg/dL (75-99)
[2019-06-09] MEDS: INSULIN ASPART (NovoLOG) 100 UNIT/ML VIAL SQ SCH ×4 (06:49→20:49)
[2019-06-09] MEDS: IPRATROPIUM-ALBUTEROL 3 ML NEB INHALATION SCH ×4 (07:45→20:29)
[2019-06-09] MEDS: amLODIPine 10 MG TAB PO SCH (08:37)
[2019-06-09] MEDS: FAMOTIDINE 20 MG TAB PO SCH (08:37)
[2019-06-09] MEDS: GABAPENTIN 400 MG CAP PO PRN ×2 (08:37→16:25)
[2019-06-09] MEDS ORDERED: RX INFO: IV CONTRAST WAS GIVEN 1 EACH MISC MISCELLANE PRN (08:43)
[2019-06-09] MEDS: traMADol 50 MG TAB PO PRN ×3 (10:31→22:59)
[2019-06-09] MEDS: ESCITALOPRAM 10 MG TAB PO SCH (10:32)
[2019-06-09] MEDS: valACYclovir HCL 1,000 MG TABLET PO SCH ×3 (10:32→20:50)
[2019-06-09] MEDS: ITRACONAZOLE 100 MG CAP PO SCH (10:32)
[2019-06-09] MEDS: NICOTINE 14MG/24HR PATCH TRANSDERM SCH (10:32)
[2019-06-09] MEDS: MAGNESIUM SULFATE-D5W PMX 1 GM in DEXTROSE/WATER 1 100ML.BAG IVPB SCH ×2 (10:38→16:26)
[2019-06-09] MEDS ORDERED: HEPARIN SODIUM,PORCINE 5,000 UNIT/ML 1 ML VIAL IV PRN (11:39)
[2019-06-09] MEDS ORDERED: HEPARIN SODIUM,PORCINE 10,000 UNIT/ML 1 ML VIAL IV ONE (11:39)
--- NOTE | 2019-06-09 11:41 | CT ---
EXAMINATION TYPE: CT chest w con DATE OF EXAM: 06/09/2019 COMPARISON: 05/11/2019, 04/03/2019, 12/12/2018, 01/21/2017 HISTORY: 59-year-old male RUL cavitary lesion TECHNIQUE: Contiguous axial scanning of the chest after the administration of 100 mL of Isovue 300. Coronal/sagittal reconstructions performed. CT DLP: 342.3mGycm. Automatic exposure control utilized for a dose reduction. FINDINGS: Heart normal size without pericardial effusion. No flattening of the interventricular septum or reflu x of contrast into the hepatic veins. Extensive coronary vessel calcifications are present. Aorta is normal caliber. Interval decrease in size of previously seen mediastinal lymph nodes currently measuring up to 7 mm v ersus 1 cm, previously. There is new nonocclusive saddle embolus extending into the left upper lobe and all right-sided lobar branches. Additional extension into segmental branches of the right lower lobe. Patient's superior segment right lower lobe cavitary lesion currently measures 3.3 x 2.9 cm with a th in peripheral wall and air-fluid level. Previously, this had measured up to 3.7 x 3.1 cm. Some residu al surrounding groundglass density and pleural parenchymal thickening is noted. 7 mm basilar right lower lobe pulmonary nodule is stable from 12/12/2018 and warrants ongoing follow-u p. Moderate centrilobular and paraseptal emphysema. A few calcified granulomas in the upper lobes. Improving tree-in-bud opacities in the basilar left lo wer lobe. No new consolidation or pleural effusion. Retroaortic left renal vein. Bones: Mild degenerative disc disease mid to lower thoracic spine. IMPRESSION: 1. Incidental nonocclusive saddle embolus extending into the ISIS branch and throughout the right-side d lobar branches and segmental branches of the RLL. No CT evidence for right heart strain at this stephanie e. 2. Gradually decreasing size of the superior segment right upper lobe cavitary lesion currently measu ring 3.3 x 2.9 cm versus 2.7 x 2.1 cm on 05/11/2019. Residual infection difficult to exclude given napoleon e mild surrounding groundglass and the inlying air-fluid level. 3. Minimal residual tree-in-bud opacities in the basilar left lower lobe also show improvement from . 4. COPD with moderate emphysema. A 7 mm right basilar pulmonary nodule is stable from 12/12/2018 but w arrants ongoing follow-up. Critical findings called to [facility] and given to nurse Archana at 11:35 AM.
[2019-06-09 12:11] LABS: Basophils # (A) 0.1 k/uL (0-0.2); Basophils % (A) 0 %; Eosinophils # (A) 0.1 k/uL (0-0.7); Eosinophils % (A) 0 %; HCT 40.1 % (39.0-53.0); HGB 13.6 gm/dL (13.0-17.5); Lymphocytes # (A) 0.2 k/uL (1.0-4.8); Lymphocytes % (A) 1 %; MCH 33.6 pg (25.0-35.0); MCHC 33.9 g/dL (31.0-37.0); Macrocytosis Slight; Mean Platelet Volume 5.8; Monocytes # (A) 0.2 k/uL (0-1.0); Monocytes % (A) 2 %; Neutrophils # (A) 11.8 k/uL (1.3-7.7); Neutrophils % (A) 96 %; Platelet Count 221 k/uL (150-450); RBC 4.05 m/uL (4.30-5.90); RDW 14.9 % (11.5-15.5); WBC 12.3 k/uL (3.8-10.6)
[2019-06-09 12:27] LABS: INR 0.9 (<1.2); Prothrombin Time 9.9 sec (9.0-12.0)
--- NOTE | 2019-06-09 12:54 | P.HPIM ---
History of Present Illness Patient is a 58-year-old male with a known history of COPD and chronic hypoxic respiratory failure on home oxygen 2 L where nausea cannula, history of CVA, nicotine addiction and chronic pain, hypertension and acid reflux and history of coronary artery disease and has history of TN, recently treated for right upper lobe cavitary pneumonia with questionable possible fungal infection that responded previously on Sporanox Also he was treated for Shingles and left T10 dermatome,Recently presents with dyspnea. He has some dry occasional cough. And central chest pain that's increased with coughing On admission he has CT angiography thorax showing saddle embolus extending into the left upper lobe and all right-sided lobar branches and also possible right lower lobe. However it shows gradually decrease in size of the right upper lobe cavitary lesion showing also WBC of 12.3 K. No fever. Patient was started on heparin drip Review of Systems CONSTITUTIONAL: No fever, no malaise, no fatigue. HEENT: No recent visual problems or hearing problems. Denied any sore throat. CARDIOVASCULAR: No orthopnea, PND, no palpitations, no syncope. PULMONARY: no hemoptysis. GASTROINTESTINAL: No diarrhea, no nausea, no vomiting, no abdominal pain. Normoactive bowel sounds. NEUROLOGICAL: No headaches, no weakness, no numbness. HEMATOLOGICAL: Denies any bleeding or petechiae. GENITOURINARY: Denies any burning micturition, frequency, or urgency. MUSCULOSKELETAL/RHEUMATOLOGICAL: Denies any joint pain, swelling, or any muscle pain. ENDOCRINE: Denies any polyuria or polydipsia. 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 Last Myocardial Infarction Date:: unknown History of Any Multi-Drug Resistant Organisms: None Reported Past Surgical History: Orthopedic Surgery Additional Past Surgical History / Comment(s): metal plate left hand middle finger, right eye enucleation. Past Anesthesia/Blood Transfusion Reactions: No Reported Reaction Past Psychological History: Anxiety, Depression, Panic Disorder Additional Psychological History / Comment(s): Lives in apartment, 17 steps to climb.Has a nebulizer/oxygen. 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 Smoking Status: Former smoker Past Alcohol Use History: Occasional Additional Past Alcohol Use History / Comment(s): STARTED SMOKING 1975 08 PPD- QUIT 6 MONTHS AGO, PT STATED HE DRINKS 2 BEER a day Past Drug Use History: Marijuana Additional Drug Use History / Comment(s): PAST MARIJUANA USE IN HIS TEEN YEARS. - Past Family History Mother Family Medical History: Cancer Additional Family Medical History / Comment(s): Pt believes his Mom of [place]ney Cancer Father Family Medical History: Cancer, COPD, Respiratory Disorder Additional Family Medical History / Comment(s): Melanoma Medications and Allergies Home Medications Medication Instructions Recorded Confirmed Type Melatonin 5 mg PO HS 11/14/18 06/08/19 History Montelukast [Singulair] 10 mg PO HS #30 tab 11/17/18 06/08/19 Rx Ipratropium-Albuterol Nebulize 3 ml INHALATION RT-QID PRN #60 12/15/18 06/08/19 Rx [Duoneb 0.5 mg-3 mg/3 ml Soln] ampul.neb Fluticasone/Salmeterol 1 puff INHALATION RT-BID 04/29/19 06/08/19 History [Fluticasone-Salmeterol 232-14] Gabapentin 800 mg PO Q6H PRN 04/29/19 06/08/19 History amLODIPine [Norvasc] 10 mg PO DAILY 04/29/19 06/08/19 History Albuterol Inhaler [Ventolin Hfa 1 - 2 puff INHALATION RT-Q6H PRN 05/11/19 06/08/19 History Inhaler] Escitalopram [Lexapro] 10 mg PO DAILY #15 tab 05/15/19 06/08/19 Rx guaiFENesin SYRUP 100MG/5ML 200 mg PO Q6H PRN #1 bottle 05/15/19 06/08/19 Rx [Robitussin] Itraconazole [Onmel] 200 mg PO DAILY #30 tablet 05/24/19 06/08/19 Rx valACYclovir HCL [Valtrex] 1,000 mg PO TID #15 tablet 05/24/19 06/08/19 Rx Famotidine [Pepcid AC] 10 mg PO DAILY 06/04/19 06/08/19 History Nicotine 14Mg/24Hr Patch [Habitrol] 1 patch TD DAILY 06/04/19 06/08/19 History Apixaban [Eliquis Starter Pack 0 mg PO DIRECTED 30 Days #1 pack 06/09/19 Rx (for VTE)] Allergies Allergy/AdvReac Type Severity Reaction Status Date / Time peanut [Peanut Butter] AdvReac Nausea & Verified 06/08/19 17:41 Vomiting & Diarrhea Physical Exam Vitals: Vital Signs Temp Pulse Pulse Resp BP BP Pulse Ox 06/09/19 10:25 94 06/09/19 10:15 92 06/09/19 08:08 96 06/09/19 08:00 97.8 F 107 H 132/83 98 06/09/19 07:45 91 06/09/19 04:04 93 06/09/19 04:02 97.4 F L 89 18 130/87 96 06/09/19 03:53 92 06/09/19 00:53 92 18 06/09/19 00:46 88 16 06/08/19 23:14 98.3 F 90 18 116/62 95 06/08/19 18:08 100 18 128/83 95 06/08/19 18:07 90 16 06/08/19 18:00 98 18 06/08/19 17:27 18 06/08/19 17:23 99.1 F 92 18 146/81 9 L Intake and Output 06/08/19 06/09/19 06/09/19 22:59 06:59 14:59 Output Total 400 300 Balance -400 -300 Output: Urine 400 300 Other: Weight 76.204 kg GENERAL: The patient is alert and oriented x3, not in any acute distress. Well developed, well nourished. HEENT: Pupils are round and equally reacting to light. EOMI. No scleral icterus. No conjunctival pallor. Normocephalic, atraumatic. No pharyngeal erythema. No thyromegaly. CARDIOVASCULAR: S1 and S2 present. No murmurs, rubs, or gallops. PULMONARY: Chest is clear to auscultation, no wheezing or crackles. ABDOMEN: Soft, nontender, nondistended, normoactive bowel sounds. No palpable organomegaly. MUSCULOSKELETAL: No joint swelling or deformity. EXTREMITIES: No cyanosis, clubbing, or pedal edema. NEUROLOGICAL: Gross neurological examination did not reveal any focal deficits. SKIN: No rashes. No petechiae Results CBC & Chem 7: 06/09/19 11:55 06/08/19 18:05 Labs: Abnormal Lab Results - Last 24 Hours (Table) 06/08/19 06/08/19 06/09/19 Range/Units 18:05 18:05 06:22 WBC (3.8-10.6) k/uL RBC 4.10 L (4.30-5.90) m/uL Neutrophils # (1.3-7.7) k/uL Lymphocytes # (1.0-4.8) k/uL Sodium 135 L (137-145) mmol/L Creatinine 0.54 L (0.66-1.25) mg/dL Glucose 61 L (74-99) mg/dL POC Glucose (mg/dL) 280 H (75-99) mg/dL Magnesium 1.4 L (1.6-2.3) mg/dL 06/09/19 Range/Units 11:55 WBC 12.3 H (3.8-10.6) k/uL RBC 4.05 L (4.30-5.90) m/uL Neutrophils # 11.8 H (1.3-7.7) k/uL Lymphocytes # 0.2 L (1.0-4.8) k/uL Sodium (137-145) mmol/L Creatinine (0.66-1.25) mg/dL Glucose (74-99) mg/dL POC Glucose (mg/dL) (75-99) mg/dL Magnesium (1.6-2.3) mg/dL Thrombosis Risk Factor Assmnt - Choose All That Apply Each Factor Represents 1 point: Age 41-60 years, Obesity (BMI >25) Thrombosis Risk Factor Assessment Total Risk Factor Score: 2 Thrombosis Risk Factor Assessment Level: Low Risk Assessment and Plan Assessment: Acute pulmonary embolism. CT of the thorax showing saddle embolus extending into the left upper lobe and all right-sided lobar branches and also possible right lower lobe. Recent history of Pneumonia with combined fungal and bacterial infection. Treated Stable and improving cavitating right upper lobe abscess. Thought to be fungal infection/fungal ball. Continue with itraconazole. 7 mm Pulmonary monitoring nodules in the right basal lung COPD not in acute exacerbation Recent history herpez zoster , shingles of the left flank Left shoulder pain, left shoulder injury status post fall. recent orthopedic input Recommended outpatient follow-up in 1 week. 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 History of Coronary artery disease with history of [place]. Ongoing nicotine addiction Plan: this is a pleasant 59 years old male who presents with PE, and recent right upper lobe cavitary pneumonia. Continue with heparin drip. Do echocardiogram. Call pulmonary consult. Restart patient on Augmentin Labs and medication were reviewed.. Continue same treatment. Continue with symptomatic treatment. Resume home medication. Monitor lytes and vitals. DVT and GI prophylaxis. Further recommendations of the clinical course of the patient DVT prophylaxis: Subcutaneous heparin GI Prophylaxis: Pepcid PT/OT: Pending Prognosis is guarded
[2019-06-09] MEDS: HEPARIN SOD,PORK IN 0.45% NACL 25,000 UNIT in 0.45% NACL 1 250ML.BAG IV SCH (13:14)
[2019-06-09 13:25] LABS: Glucose,Whole Blood 221 mg/dL (75-99)
--- NOTE | 2019-06-09 13:28 | P.CNPUL ---
History of Present Illness Consult date: 06/09/19 Requesting physician: David E Sheet Reason for consult: dyspnea Chief complaint: Cough, shortness of breath History of present illness: This is a 59-year-old white male patient, who is known to our service from previous admissions for complications related to COPD, and right upper lobe cavitating pneumonia related to aspergillosis, and patient has been on Sporanox for treatment. Patient was recently seen in the hospital when he was hospitalized for COPD exacerbation, and his right upper lobe cavitating pneumonia has been steadily improving on the chest x-rays, patient was also treated for herpes zoster rash and discharged home in stable condition. 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 Patient came into the emergency department on 06/08/2019 with complaints of difficulty breathing of 2 days' duration, he reports a low-grade fever, dry cough, he states it hurts to cough in his throat, and reports no nausea vomiting or diarrhea, he is still taking his Sporanox. He follows Dr. Bland in the pulmonary clinic, chest x-ray was taken in the emergency department showing right upper lobe consolidation with air fluid level and cavitation. Labs showed a white blood count of 8.6, hemoglobin of 14.1, coagulation profile was within normal limits, sodium was 135, and the rest the electrolytes were within normal limits, BUN was 12 creatinine was 0.54, troponin was negative 1. EKG showed normal sinus rhythm without acute ischemic changes. He is afebrile, hemodynamically stable, he is on 2 L of oxygen pulse ox of 98%, CT chest with contrast was completed showing evidence of incidental nonocclusive saddle embolus extending into the left upper lobe branch and throughout the right-sided lobar branches and segmental branches of the right lower lobe without CT evidence of right heart strain at this time. It also showed gradually decreasing in size right upper lobe superior segment cavitary lesion, and minimal residual tree-in-bud opacities in the basilar left lower lobe. Review of Systems All systems: negative Constitutional: Denies chills, Denies fever Eyes: denies blurred vision, denies pain Ears, nose, mouth and throat: Denies headache, Denies sore throat Cardiovascular: Reports chest pain, Denies shortness of breath Respiratory: Reports cough, Reports dyspnea Gastrointestinal: Denies abdominal pain, Denies diarrhea, Denies nausea, Denies vomiting Musculoskeletal: Denies myalgias Integumentary: Denies pruritus, Denies rash Neurological: Denies numbness, Denies weakness Psychiatric: Denies anxiety, Denies depression Endocrine: Denies fatigue, Denies weight change Past Medical History Past Medical History: Chest Pain / Angina, COPD, CVA/TIA, Hypertension, Myocardial Infarction ([place]), Pneumonia, Respiratory Disorder, Skin Disorder Additional Past Medical History / Comment(s): R upper lobe consolidation thought to be fungal/+asperigillus fumigatus, chronic hypoxic respiratory failure/ home O2 at 2L/[place] ATC, past shingelles 2016 which caused R eye blindness/pt states he presently has a rash/ reoccurrence of shingles at this time, 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 Last Myocardial Infarction Date:: unknown History of Any Multi-Drug Resistant Organisms: None Reported Past Surgical History: Orthopedic Surgery Additional Past Surgical History / Comment(s): metal plate left hand middle finger, right eye enucleation. Past Anesthesia/Blood Transfusion Reactions: No Reported Reaction Past Psychological History: Anxiety, Depression, Panic Disorder Additional Psychological History / Comment(s): Lives in apartment, 17 steps to climb.Has a nebulizer/oxygen. 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 - Past Family History Mother Family Medical History: Cancer Additional Family Medical History / Comment(s): Pt believes his Mom of Kidney Cancer Father Family Medical History: Cancer, COPD, Respiratory Disorder Additional Family Medical History / Comment(s): Melanoma Medications and Allergies Home Medications Medication Instructions Recorded Confirmed Type Melatonin 5 mg PO HS 11/14/18 06/08/19 History Montelukast [Singulair] 10 mg PO HS #30 tab 11/17/18 06/08/19 Rx Ipratropium-Albuterol Nebulize 3 ml INHALATION RT-QID PRN #60 12/15/18 06/08/19 Rx [Duoneb 0.5 mg-3 mg/3 ml Soln] ampul.neb Fluticasone/Salmeterol 1 puff INHALATION RT-BID 04/29/19 06/08/19 History [Fluticasone-Salmeterol 232-14] Gabapentin 800 mg PO Q6H PRN 04/29/19 06/08/19 History amLODIPine [Norvasc] 10 mg PO DAILY 04/29/19 06/08/19 History Albuterol Inhaler [Ventolin Hfa 1 - 2 puff INHALATION RT-Q6H PRN 05/11/19 06/08/19 History Inhaler] Escitalopram [Lexapro] 10 mg PO DAILY #15 tab 05/15/19 06/08/19 Rx guaiFENesin SYRUP 100MG/5ML 200 mg PO Q6H PRN #1 bottle 05/15/19 06/08/19 Rx [Robitussin] Itraconazole [Onmel] 200 mg PO DAILY #30 tablet 05/24/19 06/08/19 Rx valACYclovir HCL [Valtrex] 1,000 mg PO TID #15 tablet 05/24/19 06/08/19 Rx Famotidine [Pepcid AC] 10 mg PO DAILY 06/04/19 06/08/19 History Nicotine 14Mg/24Hr Patch [Habitrol] 1 patch TD DAILY 06/04/19 06/08/19 History Apixaban [Eliquis Starter Pack 0 mg PO DIRECTED 30 Days #1 pack 06/09/19 Rx (for VTE)] Allergies Allergy/AdvReac Type Severity Reaction Status Date / Time peanut [Peanut Butter] AdvReac Nausea & Verified 06/08/19 17:41 Vomiting & Diarrhea Physical Exam Vitals: Vital Signs Temp Pulse Pulse Resp BP BP Pulse Ox 06/09/19 10:25 94 06/09/19 10:15 92 06/09/19 08:08 96 06/09/19 08:00 97.8 F 107 H 132/83 98 06/09/19 07:45 91 06/09/19 04:04 93 06/09/19 04:02 97.4 F L 89 18 130/87 96 06/09/19 03:53 92 06/09/19 00:53 92 18 06/09/19 00:46 88 16 06/08/19 23:14 98.3 F 90 18 116/62 95 06/08/19 18:08 100 18 128/83 95 06/08/19 18:07 90 16 06/08/19 18:00 98 18 06/08/19 17:27 18 06/08/19 17:23 99.1 F 92 18 146/81 9 L Intake and Output 06/08/19 06/09/19 06/09/19 22:59 06:59 14:59 Output Total 400 300 Balance -400 -300 Output: Urine 400 300 Other: Weight 76.204 kg GENERAL EXAM: Alert, pleasant, 58-year-old white male, on 2 L of oxygen with a pulse ox of 95% comfortable in no apparent distress. HEAD: Normocephalic/atraumatic. EYES: Normal reaction of pupils, equal size in the left eye, patient has a prosthetic right eye. Conjunctiva pink, sclera white. NOSE: Clear with pink turbinates. THROAT: No erythema or exudates. NECK: No masses, no JVD, no thyroid enlargement, no adenopathy. CHEST: No chest wall deformity. Symmetrical expansion. LUNGS: Equal air entry with no crackles, wheeze, rhonchi or dullness. Congestive cough CVS: Regular rate and rhythm, normal S1 and S2, no gallops, no murmurs, no rubs ABDOMEN: Soft, nontender. No hepatosplenomegaly, normal bowel sounds, no guarding or rigidity. EXTREMITIES: No clubbing, no edema, no cyanosis, 2+ pulses and upper and lower extremities. MUSCULOSKELETAL: Muscle strength and tone normal. SPINE: No scoliosis or deformity SKIN: No rashes CENTRAL NERVOUS SYSTEM: Alert and oriented -3. No focal deficits, tone is normal in all 4 extremities. PSYCHIATRIC: Alert and oriented -3. Appropriate affect. Intact judgment and insight. Results - Laboratory Findings CBC and BMP: 06/09/19 11:55 06/08/19 18:05 PT/INR, D-dimer PT 9.9 sec (9.0-12.0) 06/09/19 11:55 INR 0.9 (<1.2) 06/09/19 11:55 Abnormal lab findings: Abnormal Labs 06/08/19 06/08/19 06/09/19 18:05 18:05 06:22 WBC RBC 4.10 L Neutrophils # Lymphocytes # Sodium 135 L Creatinine 0.54 L Glucose 61 L POC Glucose (mg/dL) 280 H Magnesium 1.4 L 06/09/19 11:55 WBC 12.3 H RBC 4.05 L Neutrophils # 11.8 H Lymphocytes # 0.2 L Sodium Creatinine Glucose POC Glucose (mg/dL) Magnesium - Diagnostic Findings Chest x-ray: report reviewed, image reviewed CT scan - chest: report reviewed, image reviewed Additional studies: EKG reviewed Assessment and Plan Plan: Assessment: #1. Nonocclusive saddle emboli, an incidental finding on the CT chest with contrast performed for the investigation of the right upper lobe cavitary lesion, and the embolus extends into the left upper lobe branch and throughout the right-sided lobar branches and segmental branches of the right lower lobe, without CT evidence of right heart strain at this time #2. Fungal pneumonia in the right upper lobe, which has been under treatment since March 2019 and is improving radiologically, patient has been on a combination of Sporanox. CT chest with contrast performed today on 06/09/2019 shows decreasing in size right upper lobe cavitary lesion #2. Recent herpes zoster rash, and the rash is dry #3. History of severe oxygen-dependent chronic obstructive pulmonary disease with the baseline FEV1 of 36% of predicted #4. Former smoker, currently in remission #5. History of present CVA involving the basal ganglia in October 2014 #6. 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 Diabetes with this type II #8. GERD/reflux #9. History of coronary artery disease with previous [place] Plan: Patient has been started on a heparin drip, will obtain echocardiogram, CT chest showed no evidence of right heart strain, hemodynamically stable, continue with nebulized bronchodilators, continue Sporanox, continue IV steroids. We'll send a prescription to pharmacy for Eliquis and see if patient's insurance will cover it. CT chest with contrast showed decreasing in size right upper lobe cavitary pneumonia. We'll continue to follow I performed a history & physical examination of the patient and discussed their management with my nurse practitioner, Jeane Hwang. I reviewed the nurse practitioner's note and agree with the documented findings and plan of care. Lung sounds are positive for bibasilar crackles The findings and the impression was discussed with the patient. I attest to the documentation by the nurse practitioner. Time with Patient: Greater than 30
[2019-06-09] MEDS: AMOXIC-POT CLAV 875-125MG 1 EACH TAB PO SCH ×2 (16:25→20:53)
[2019-06-09 16:36] LABS: Glucose,Whole Blood 320 mg/dL (75-99)
--- NOTE | 2019-06-09 17:56 | ECHOF ---
Referral Reason:Rule out heart disease MEASUREMENTS -------- HEIGHT: 167.6 cm WEIGHT: 76.2 kg BP: RVIDd: 4.2 cm (< 3.3) IVSd: 1.1 cm (0.6 - 1.1) LVIDd: 3.4 cm (3.9 - 5.3) LVPWd: 1.3 cm (0.6 - 1.1) IVSs: 1.4 cm LVIDs: 2.0 cm LVPWs: 1.5 cm LAESV Index (A-L): 15.29 ml/m Ao Diam: 3.1 cm (2.0 - 3.7) AV Cusp: 2.0 cm (1.5 - 2.6) LA Diam: 3.5 cm (2.7 - 3.8) MV EXCURSION: 18.547 mm (> 18.000) MV EF SLOPE: 117 mm/s (70 - 150) EPSS: 0.6 cm MV E Eugene: 0.83 m/s MV DecT: 203 ms MV A Eugene: 0.67 m/s MV E/A Ratio: 1.23 RAP: 5.00 mmHg RVSP: 14.52 mmHg TAPSE: 24.99 mm FINDINGS -------- Sinus rhythm. This was a technically good study. The left ventricular size is normal. Left ventricular wall thickness is normal. Overall left vent ricular systolic function is normal with, an EF between 55 - 60 %. The diastolic filling pattern is normal for the age of the patient 11.09. The right ventricle is normal in size. The right ventricular systolic function is normal. The left atrial size is normal. Normal LA size by volume 22+/-6 ml/m2. The right atrial size is normal. Aortic valve is trileaflet and is mildly thickened. The mitral valve is normal. The mitral valve leaflets are mildly thickened. Mild mitral regurgita tion is present. The tricuspid valve appears structurally normal. Mild tricuspid regurgitation present. Right vent ricular systolic pressure is normal at < 35 mmHg. There is no pulmonic regurgitation present. The aortic root size is normal. Normal inferior vena cava with normal inspiratory collapse consistent with estimated right atrial pre ssure of 5 mmHg. There is no pericardial effusion. CONCLUSIONS -------- 1. Sinus rhythm. 2. This was a technically good study. 3. The left ventricular size is normal. 4. Left ventricular wall thickness is normal. 5. Overall left ventricular systolic function is normal with, an EF between 55 - 60 %. 6. The diastolic filling pattern is normal for the age of the patient 11.09 7. The right ventricle is normal in size. 8. The right ventricular systolic function is normal. 9. The left atrial size is normal. 10. Normal LA size by volume 22+/-6 ml/m2. 11. The right atrial size is normal. 12. Aortic valve is trileaflet and is mildly thickened. 13. The mitral valve is normal. 14. The mitral valve leaflets are mildly thickened. 15. Mild mitral regurgitation is present. 16. The tricuspid valve appears structurally normal. 17. Mild tricuspid regurgitation present. 18. Right ventricular systolic pressure is normal at < 35 mmHg. 19. There is no pulmonic regurgitation present. 20. The aortic root size is normal. 21. Normal inferior vena cava with normal inspiratory collapse consistent with estimated right atrial pressure of 5 mmHg. 22. There is no pericardial effusion. METAL BASE BLOCKER: Jessica Garcia RDCS
[2019-06-09 20:35] LABS: Glucose,Whole Blood 156 mg/dL (75-99)
[2019-06-09] MEDS: MONTELUKAST 10 MG TAB PO SCH (20:50)
[2019-06-09] MEDS: MELATONIN 5 MG TABLET PO SCH (20:50)
[2019-06-10] MEDS: IPRATROPIUM-ALBUTEROL 3 ML NEB INHALATION PRN ×2 (00:46→06:11)
[2019-06-10] MEDS: methylPREDNISolone SOD SUCCI 125 MG/2 ML VIAL IV SCH ×4 (05:31→23:25)
[2019-06-10 06:05] LABS: Glucose,Whole Blood 212 mg/dL (75-99)
[2019-06-10] MEDS: traMADol 50 MG TAB PO PRN ×3 (06:13→20:37)
[2019-06-10] MEDS: INSULIN ASPART (NovoLOG) 100 UNIT/ML VIAL SQ SCH ×4 (06:42→20:29)
[2019-06-10 08:00] LABS: Basophils % (A) 0 %; Eosinophils % (A) 0 %; HCT 38.8 % (39.0-53.0); Lymphocytes # (A) 0.4 k/uL (1.0-4.8); Lymphocytes % (A) 2 %; MCH 33.1 pg (25.0-35.0); MCHC 33.4 g/dL (31.0-37.0); MCV 99.2 fL (80.0-100.0); Macrocytosis Slight; Monocytes # (A) 0.4 k/uL (0-1.0); Monocytes % (A) 2 %; Neutrophils # (A) 20.6 k/uL (1.3-7.7); Neutrophils % (A) 96 %; Platelet Count 261 k/uL (150-450); RBC 3.91 m/uL (4.30-5.90); WBC 21.5 k/uL (3.8-10.6)
[2019-06-10] MEDS: IPRATROPIUM-ALBUTEROL 3 ML NEB INHALATION SCH ×4 (08:18→19:54)
[2019-06-10] MEDS: FAMOTIDINE 20 MG TAB PO SCH (09:41)
[2019-06-10] MEDS: AMOXIC-POT CLAV 875-125MG 1 EACH TAB PO SCH ×2 (09:41→20:37)
[2019-06-10] MEDS: amLODIPine 10 MG TAB PO SCH (09:41)
[2019-06-10] MEDS: ESCITALOPRAM 10 MG TAB PO SCH (09:41)
[2019-06-10] MEDS: NICOTINE 14MG/24HR PATCH TRANSDERM SCH (09:41)
[2019-06-10] MEDS: valACYclovir HCL 1,000 MG TABLET PO SCH ×3 (09:42→23:52)
[2019-06-10] MEDS: ITRACONAZOLE 100 MG CAP PO SCH (09:42)
[2019-06-10] MEDS: GABAPENTIN 400 MG CAP PO PRN ×3 (09:46→23:25)
--- NOTE | 2019-06-10 10:54 | P.PN ---
Subjective Patient is a 58-year-old male with a known history of COPD and chronic hypoxic respiratory failure on home oxygen 2 L where nausea cannula, history of CVA, nicotine addiction and chronic pain, hypertension and acid reflux and history of coronary artery disease and has history of NH, recently treated for right upper lobe cavitary pneumonia with questionable possible fungal infection that responded previously on Sporanox Also he was treated for Shingles and left T10 dermatome,Recently presents with dyspnea. He has some dry occasional cough. And central chest pain that's increased with coughing On admission he has CT angiography thorax showing saddle embolus extending into the left upper lobe and all right-sided lobar branches and also possible right lower lobe. However it shows gradually decrease in size of the right upper lobe cavitary lesion showing also WBC of 12.3 K. No fever. Patient was started on heparin drip 06/10/2019 Patient feels a little short of breath with coughing but no hemoptysis. His vitals looks stable. Labs showing WBC of 20 1.5K, patient is afebrile. BMP and magnesium are ordered and the results are still pending. Patient remains on heparin drip, he is on Augmentin and Sporanox for his upper lobe cavitary pneumonia. Also patient to continue on Solu-Medrol. His leukocytosis is mostly due to the steroid effect. Patient to continue on heparin drip and we'll check in the coverage for his Eliquis. Discussed the case with hematology team today and they recommended to continue with the same medication with anticoagulation upon discharge for 6-12 months, recommended also to follow-up with hematology clinic upon the recommendation within 3-4 months to repeat imaging of the chest. We'll add cough syrup for him. Review of systems CONSTITUTIONAL: No fever, no malaise, no fatigue. HEENT: No recent visual problems or hearing problems. Denied any sore throat. CARDIOVASCULAR: no palpitations, no syncope. GASTROINTESTINAL: No diarrhea, no nausea, no vomiting, no abdominal pain. Normoactive bowel sounds. NEUROLOGICAL: No headaches, no weakness, no numbness. HEMATOLOGICAL: Denies any bleeding or petechiae. GENITOURINARY: Denies any burning micturition, frequency, or urgency. MUSCULOSKELETAL/RHEUMATOLOGICAL: Denies any joint pain, swelling, or any muscle pain. ENDOCRINE: Denies any polyuria or polydipsia. Active Medications Generic Name Dose Route Start Last Admin Trade Name Freq PRN Reason Stop Dose Admin Albuterol/Ipratropium 3 ml 06/09/19 08:00 06/10/19 08:18 Duoneb 0.5 Mg-3 Mg/3 Ml Soln INHALATION Not Given RT-QID LAMAR Albuterol/Ipratropium 3 ml 06/08/19 21:05 06/10/19 06:11 Duoneb 0.5 Mg-3 Mg/3 Ml Soln INHALATION 3 ml RT-Q2H PRN Administration Shortness Of Breath Or Wheezing Amlodipine Besylate 10 mg 06/09/19 09:00 06/10/19 09:41 Norvasc PO 10 mg DAILY LAMAR Administration Amoxicillin/Clavulanate Potassium 1 each 06/09/19 13:00 06/10/19 09:41 Augmentin 875-125 PO 06/14/19 13:01 1 each Q12HR LAMAR Administration Escitalopram Oxalate 10 mg 06/09/19 09:00 06/10/19 09:41 Lexapro PO 10 mg DAILY LAMAR Administration Famotidine 10 mg 06/09/19 09:00 06/10/19 09:41 Pepcid PO 10 mg DAILY LAMAR Administration Gabapentin 800 mg 06/08/19 23:12 06/10/19 09:46 Neurontin PO 800 mg Q6H PRN Administration Pain Heparin Sodium (Porcine) 0 unit 06/09/19 11:39 Heparin IV PER PROTOCOL PRN Low PTT Protocol Heparin Sodium/Sodium Chloride 250 mls @ 13.717 mls/hr 06/09/19 11:45 06/10/19 04:41 25,000 unit/ Sodium Chloride IV 15 units/kg/hr .[id number] LAMAR 11.431 mls/hr Titration Protocol 18 UNITS/KG/HR Insulin Aspart 0 unit 06/09/19 07:30 06/10/19 06:42 Novolog SQ 6 unit ACHS LAMAR Administration Protocol Itraconazole 200 mg 06/09/19 09:00 06/10/19 09:42 Sporanox PO 200 mg DAILY LAMAR Administration Melatonin 5 mg 06/09/19 21:00 06/09/19 20:50 Melatonin PO 5 mg HS LAMAR Administration Methylprednisolone Sodium Succinate 60 mg 06/09/19 00:00 06/10/19 05:31 Solu-Medrol IV 60 mg Q6HR LAMAR Administration Miscellaneous Information 1 each 06/09/19 08:43 Rx Info: Iv Contrast Was Given MISCELLANE 06/11/19 08:44 DAILY PRN Per Protocol Montelukast Sodium 10 mg 06/09/19 21:00 06/09/19 20:50 Singulair PO 10 mg HS LAMAR Administration Nicotine 1 patch 06/09/19 09:00 06/10/19 09:41 Habitrol 14mg/24hr Patch TRANSDERM 1 patch DAILY LAMAR Administration Tramadol HCl 50 mg 06/09/19 20:21 06/10/19 06:13 Ultram PO 50 mg Q6HR PRN Administration Pain Valacyclovir HCl 1,000 mg 06/09/19 09:00 06/10/19 09:42 Valtrex PO 1,000 mg TID LAMAR Administration Objective - Vital Signs Vital signs: Vital Signs Temp 97.9 F 06/10/19 03:25 Pulse 92 06/10/19 06:27 Resp 18 06/10/19 03:25 BP 127/69 06/10/19 03:25 Pulse Ox 97 06/10/19 03:25 Intake & Output 06/09/19 06/10/19 06/10/19 18:59 06:59 18:59 Intake Total 192.497 Output Total 300 450 Balance -300 -257.503 Weight 71.305 kg Intake: Intake, IV Titration 192.497 Amount Heparin Sod,Pork in 0.45% 192.497 NaCl 25,000 unit In 0.45 % NaCl 1 250ml.bag @ 18 UNITS/KG/HR 13.717 mls/hr IV .[id number] [facility] Rx#: [id number] Output: Urine 300 450 - Exam GENERAL: The patient is alert and oriented x3, not in any acute distress. Well developed, well nourished. HEENT: Pupils are round and equally reacting to light. EOMI. No scleral icterus. No conjunctival pallor. Normocephalic, atraumatic. No pharyngeal erythema. No thyromegaly. CARDIOVASCULAR: S1 and S2 present. No murmurs, rubs, or gallops. -PULMONARY: Chest is clear to auscultation, scattered wheezing bilaterally ABDOMEN: Soft, nontender, nondistended, normoactive bowel sounds. No palpable organomegaly. MUSCULOSKELETAL: No joint swelling or deformity. EXTREMITIES: No cyanosis, clubbing, or pedal edema. NEUROLOGICAL: Gross neurological examination did not reveal any focal deficits. SKIN: No rashes. No petechiae - Labs CBC & Chem 7: 06/10/19 07:14 06/08/19 18:05 Labs: Abnormal Lab Results - Last 24 Hours (Table) 06/09/19 06/09/19 06/09/19 Range/Units 11:55 13:22 16:16 WBC 12.3 H (3.8-10.6) k/uL RBC 4.05 L (4.30-5.90) m/uL Hct (39.0-53.0) % Neutrophils # 11.8 H (1.3-7.7) k/uL Lymphocytes # 0.2 L (1.0-4.8) k/uL APTT (22.0-30.0) sec POC Glucose (mg/dL) 221 H 320 H (75-99) mg/dL 06/09/19 06/09/19 06/10/19 Range/Units 19:16 20:34 03:15 WBC (3.8-10.6) k/uL RBC (4.30-5.90) m/uL Hct (39.0-53.0) % Neutrophils # (1.3-7.7) k/uL Lymphocytes # (1.0-4.8) k/uL APTT 145.5 H* 64.3 H (22.0-30.0) sec POC Glucose (mg/dL) 156 H (75-99) mg/dL 06/10/19 06/10/19 Range/Units 06:03 07:14 WBC 21.5 H (3.8-10.6) k/uL RBC 3.91 L (4.30-5.90) m/uL Hct 38.8 L (39.0-53.0) % Neutrophils # 20.6 H (1.3-7.7) k/uL Lymphocytes # 0.4 L (1.0-4.8) k/uL APTT (22.0-30.0) sec POC Glucose (mg/dL) 212 H (75-99) mg/dL Microbiology - Last 24 Hours (Table) 06/08/19 18:05 Blood Culture - Preliminary Blood No Growth after 24 hours Assessment and Plan Assessment: Acute pulmonary embolism. CT of the thorax showing saddle embolus extending into the left upper lobe and all right-sided lobar branches and also possible right lower lobe. Recent history of Pneumonia with combined fungal and bacterial infection. Tr eated Stable and improving cavitating right upper lobe abscess. Thought to be fungal infection/fungal ball. Continue with itraconazole. 7 mm Pulmonary monitoring nodules in the right basal lung COPD not in acute exacerbation Recent history herpez zoster , shingles of the left flank Left shoulder pain, left shoulder injury status post fall. recent orthopedic input Recommended outpatient follow-up in 1 week. 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 History of Coronary artery disease with history of NH. Ongoing nicotine addiction Plan: this is a pleasant 59 years old male who presents with PE, and recent right upper lobe cavitary pneumonia. Continue with heparin drip. Do echocardiogram. Call pulmonary consult. Restart patient on Augmentin Labs and medication were reviewed.. Continue same treatment. Continue with symptomatic treatment. Resume home medication. Monitor lytes and vitals. DVT and GI prophylaxis. Further recommendations of the clinical course of the patient DVT prophylaxis: heparin GI Prophylaxis: Pepcid PT/OT: Pending Prognosis is guarded
[2019-06-10 11:50] LABS: African American GFR (CKD) >90 (>60 ml/min/1.73 sqM); Anion Gap 11 mmol/L; Blood Urea Nitrogen 16 mg/dL (9-20); Calcium 9.2 mg/dL (8.4-10.2); Carbon Dioxide 24 mmol/L (22-30); Chloride 101 mmol/L (98-107); Glucose 192 mg/dL (74-99); Non-African American GFR(CKD) >90 (>60 ml/min/1.73 sqM); Potassium 3.3 mmol/L (3.5-5.1); Sodium 136 mmol/L (137-145)
--- NOTE | 2019-06-10 12:33 | P.PN ---
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 Patient was recently seen in the hospital when he was hospitalized for COPD exacerbation, and his right upper lobe cavitating pneumonia has been steadily improving on the chest x-rays, patient was also treated for herpes zoster rash and discharged home in stable condition. 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 Patient came into the emergency department on 06/08/2019 with complaints of difficulty breathing of 2 days' duration, he reports a low-grade fever, dry cough, he states it hurts to cough in his throat, and reports no nausea vomiting or diarrhea, he is still taking his Sporanox. He follows Dr. Bland in the pulmonary clinic, chest x-ray was taken in the emergency department showing right upper lobe consolidation with air fluid level and cavitation. Labs showed a white blood count of 8.6, hemoglobin of 14.1, coagulation profile was within normal limits, sodium was 135, and the rest the electrolytes were within normal limits, BUN was 12 creatinine was 0.54, troponin was negative 1. EKG showed normal sinus rhythm without acute ischemic changes. He is afebrile, hemodynamically stable, he is on 2 L of oxygen pulse ox of 98%, CT chest with contrast was completed showing evidence of incidental nonocclusive saddle embolus extending into the left upper lobe branch and throughout the right-sided lobar branches and segmental branches of the right lower lobe without CT evidence of right heart strain at this time. It also showed gradually decreasing in size right upper lobe superior segment cavitary lesion, and minimal residual tree-in-bud opacities in the basilar left lower lobe. On 06/10/2019 patient is seen in follow-up on selective care unit, still has quite congestive cough, he is still short of breath, he states he hasn't i mproved much since admission, lung sounds reveal diminished breath sounds, patient remains on heparin drip for her saddle embolism found on yesterday's CT chest with contrast. Eliquis prescription was sent to the pharmacy, however discharge planning states patient requires prior preauthorization which may take 2 or 3 days. For now continues on IV heparin. He is on Augmentin in addition to his Sporanox, CT chest showed a decrease in size of the right upper lobe appears segment cavitary lesion. Patient is afebrile, blood culture showed no growth. Today's labs have been reviewed, white count is 21.5, hemoglobin is 13.0, sodium is 136, potassium 3.3, the rest of electrolytes were within normal limits, BUN is 16 creatinine 0.50. No complaints of chest pain, or hemoptysis Objective - Vital Signs Vital signs: Vital Signs Temp 97.9 F 06/10/19 03:25 Pulse 92 06/10/19 11:19 Resp 16 06/10/19 08:00 BP 132/73 06/10/19 08:00 Pulse Ox 97 06/10/19 08:00 Intake & Output 06/09/19 06/10/19 06/10/19 18:59 06:59 18:59 Intake Total 192.497 360 Output Total 300 450 Balance -300 -257.503 360 Weight 71.305 kg Intake: Intake, IV Titration 192.497 Amount Heparin Sod,Pork in 0.45% 192.497 NaCl 25,000 unit In 0.45 % NaCl 1 250ml.bag @ 18 UNITS/KG/HR 13.717 mls/hr IV .[id number] [facility] Rx#: [id number] Oral 360 Output: Urine 300 450 - Exam GENERAL EXAM: Alert, pleasant, 58-year-old white male, on 2 L of oxygen with a pulse ox of 95% comfortable in no apparent distress. HEAD: Normocephalic/atraumatic. EYES: Normal reaction of pupils, equal size in the left eye, patient has a pros thetic right eye. Conjunctiva pink, sclera white. NOSE: Clear with pink turbinates. THROAT: No erythema or exudates. NECK: No masses, no JVD, no thyroid enlargement, no adenopathy. CHEST: No chest wall deformity. Symmetrical expansion. LUNGS: Equal air entry with no crackles, wheeze, rhonchi or dullness. Congestive cough CVS: Regular rate and rhythm, normal S1 and S2, no gallops, no murmurs, no rubs ABDOMEN: Soft, nontender. No hepatosplenomegaly, normal bowel sounds, no guarding or rigidity. EXTREMITIES: No clubbing, no edema, no cyanosis, 2+ pulses and upper and lower extremities. MUSCULOSKELETAL: Muscle strength and tone normal. SPINE: No scoliosis or deformity SKIN: No rashes CENTRAL NERVOUS SYSTEM: Alert and oriented -3. No focal deficits, tone is normal in all 4 extremities. PSYCHIATRIC: Alert and oriented -3. Appropriate affect. Intact judgment and insight. - Labs CBC & Chem 7: 06/10/19 07:14 06/10/19 07:14 Labs: Abnormal Lab Results - Last 24 Hours (Table) 06/09/19 06/09/19 06/09/19 Range/Units 13:22 16:16 19:16 WBC (3.8-10.6) k/uL RBC (4.30-5.90) m/uL Hct (39.0-53.0) % Neutrophils # (1.3-7.7) k/uL Lymphocytes # (1.0-4.8) k/uL APTT 145.5 H* (22.0-30.0) sec Sodium (137-145) mmol/L Potassium (3.5-5.1) mmol/L Creatinine (0.66-1.25) mg/dL Glucose (74-99) mg/dL POC Glucose (mg/dL) 221 H 320 H (75-99) mg/dL 06/09/19 06/10/19 06/10/19 Range/Units 20:34 03:15 06:03 WBC (3.8-10.6) k/uL RBC (4.30-5.90) m/uL Hct (39.0-53.0) % Neutrophils # (1.3-7.7) k/uL Lymphocytes # (1.0-4.8) k/uL APTT 64.3 H (22.0-30.0) sec Sodium (137-145) mmol/L Potassium (3.5-5.1) mmol/L Creatinine (0.66-1.25) mg/dL Glucose (74-99) mg/dL POC Glucose (mg/dL) 156 H 212 H (75-99) mg/dL 10/23/19 10/23/19 Range/Units 07:14 07:14 WBC 21.5 H (3.8-10.6) k/uL RBC 3.91 L (4.30-5.90) m/uL Hct 38.8 L (39.0-53.0) % Neutrophils # 20.6 H (1.3-7.7) k/uL Lymphocytes # 0.4 L (1.0-4.8) k/uL APTT (22.0-30.0) sec Sodium 136 L (137-145) mmol/L Potassium 3.3 L (3.5-5.1) mmol/L Creatinine 0.50 L (0.66-1.25) mg/dL Glucose 192 H (74-99) mg/dL POC Glucose (mg/dL) (75-99) mg/dL Microbiology - Last 24 Hours (Table) 06/08/19 18:05 Blood Culture - Preliminary Blood No Growth after 24 hours Assessment and Plan Plan: Assessment: #1. Nonocclusive saddle emboli, an incidental finding on the CT chest with contrast performed for the investigation of the right upper lobe cavitary lesion, and the embolus extends into the left upper lobe branch and throughout the right-sided lobar branches and segmental branches of the right lower lobe, without CT evidence of right heart strain at this time #2. Fungal pneumonia in the right upper lobe, which has been under treatment since March 2019 and is improving radiologically, patient has been on a combination of Sporanox. CT chest with contrast performed today on 06/09/2019 shows decreasing in size right upper lobe cavitary lesion #2. Recent herpes zoster rash, and the rash is dry #3. History of severe oxygen-dependent chronic obstructive pulmonary disease with the baseline FEV1 of 36% of predicted #4. Former smoker, currently in remission #5. History of present CVA involving the basal ganglia in October 2014 #6. 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 Diabetes with this type II #8. GERD/reflux #9. History of coronary artery disease with previous LA Plan: Continue with heparin infusion, preauthorization is in progress for Eliquis, but patient may receive one month free of Eliquis prescription, continues to cough, and sounds congested, continue with Augmentin, Sporanox, and steroids. Continue breathing treatments, echocardiogram has been reviewed, no evidence of right ventricular strain was noted. I performed a history & physical examination of the patient and discussed their management with my nurse practitioner, Jeane Hwang. I reviewed the nurse practitioner's note and agree with the documented findings and plan of care. Lung sounds are positive for bibasilar crackles The findings and the impression was discussed with the patient. I attest to the documentation by the nurse practitioner. Time with Patient: Less than 30
[2019-06-10 12:42] LABS: Glucose,Whole Blood 204 mg/dL (75-99)
[2019-06-10] MEDS: HEPARIN SOD,PORK IN 0.45% NACL 25,000 UNIT in 0.45% NACL 1 250ML.BAG IV SCH (16:29)
[2019-06-10 17:04] LABS: Glucose,Whole Blood 109 mg/dL (75-99)
--- NOTE | 2019-06-10 17:23 | P.CONS ---
History of Present Illness - Reason for Consult Consult date: 06/10/19 PE - History of Present Illness The patient is a 59-year-old white male with multiple medical problems. This includes advanced COPD, oxygen dependent, as well as a diagnosis of right upper lobe cavitating pneumonia due to aspergillosis. The patient has had2 hospital admissions in the last 4-5 weeks, to this one. He is on treatment with Sporanox with slow improvement in size. He is continued to have issues with shortness of breath due to COPD. Prior to these admissions, the patient was also on chronic steroids off and on due to his breathing. His last admission was less than 2 weeks ago. The patient was admitted this time with recurrent shortness of breath, tightness in his chest, with pain in the lower chest bilaterally especially on coughing. He had a CT of the chest done which showed a saddle Embolus with extension into the left side, as well as a right lobar and subsegmental branches. He was therefore admitted and started on IV heparin and consult placed. He denied any prior personal history of DVT or PE. He also denied any family history of the same. Review of Systems Constitutional: Reports fatigue, Reports poor appetite, Reports weakness, Reports weight loss Eyes: right loss of vision, denies blurred vision, denies pain Ears: deny: decreased hearing, ear discharge, earache, tinnitus Ears, nose, mouth and throat: Denies headache, Denies sore throat Cardiovascular: Reports decreased exercise tolerance Respiratory: Reports dyspnea Gastrointestinal: Denies abdominal pain, Denies diarrhea, Denies nausea, Denies vomiting Genitourinary: Reports as per HPI Musculoskeletal: Reports muscle weakness Integumentary: Denies pruritus, Denies rash Neurological: Reports loss of vision, Reports weakness Psychiatric: Reports irritability Endocrine: Reports fatigue Hematologic/Lymphatic: Reports as per HPI, Reports thrombophilia Past Medical History Past Medical History: Chest Pain / Angina, COPD, CVA/TIA, Hypertension, Myocardial Infarction (ME), Pneumonia, Respiratory Disorder, Skin Disorder Additional Past Medical History / Comment(s): 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 Last Myocardial Infarction Date:: unknown History of Any Multi-Drug Resistant Organisms: None Reported Past Surgical History: Orthopedic Surgery Additional Past Surgical History / Comment(s): metal plate left hand middle finger, right eye enucleation. Past Anesthesia/Blood Transfusion Reactions: No Reported Reaction Past Psychological History: Anxiety, Depression, Panic Disorder Additional Psychological History / Comment(s): Lives in apartment, 17 steps to climb.Has a nebulizer/oxygen. 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 - Past Family History Mother Family Medical History: Cancer Additional Family Medical History / Comment(s): Pt believes his Mom of Kidney Cancer Father Family Medical History: Cancer, COPD, Respiratory Disorder Additional Family Medical History / Comment(s): Melanoma Medications and Allergies Home Medications Medication Instructions Recorded Confirmed Type Melatonin 5 mg PO HS 11/14/18 06/08/19 History Montelukast [Singulair] 10 mg PO HS #30 tab 11/17/18 06/08/19 Rx Ipratropium-Albuterol Nebulize 3 ml INHALATION RT-QID PRN #60 12/15/18 06/08/19 Rx [Duoneb 0.5 mg-3 mg/3 ml Soln] ampul.neb Fluticasone/Salmeterol 1 puff INHALATION RT-BID 04/29/19 06/08/19 History [Fluticasone-Salmeterol 232-14] Gabapentin 800 mg PO Q6H PRN 04/29/19 06/08/19 History amLODIPine [Norvasc] 10 mg PO DAILY 04/29/19 06/08/19 History Albuterol Inhaler [Ventolin Hfa 1 - 2 puff INHALATION RT-Q6H PRN 05/11/19 06/08/19 History Inhaler] Escitalopram [Lexapro] 10 mg PO DAILY #15 tab 05/15/19 06/08/19 Rx guaiFENesin SYRUP 100MG/5ML 200 mg PO Q6H PRN #1 bottle 05/15/19 06/08/19 Rx [Robitussin] Itraconazole [Onmel] 200 mg PO DAILY #30 tablet 05/24/19 06/08/19 Rx valACYclovir HCL [Valtrex] 1,000 mg PO TID #15 tablet 05/24/19 06/08/19 Rx Famotidine [Pepcid AC] 10 mg PO DAILY 06/04/19 06/08/19 History Nicotine 14Mg/24Hr Patch [Habitrol] 1 patch TD DAILY 06/04/19 06/08/19 History Apixaban [Eliquis Starter Pack 0 mg PO DIRECTED 30 Days #1 pack 06/09/19 Rx (for VTE)] Allergies Allergy/AdvReac Type Severity Reaction Status Date / Time peanut [Peanut Butter] AdvReac Nausea & Verified 06/08/19 17:41 Vomiting & Diarrhea Physical Exam Vitals: Vital Signs Temp Pulse Pulse Resp BP Pulse Ox 06/10/19 12:00 113 H 16 130/77 96 06/10/19 11:19 92 06/10/19 11:08 100 06/10/19 08:00 95 16 132/73 97 06/10/19 06:27 92 06/10/19 06:11 92 06/10/19 03:25 97.9 F 94 18 127/69 97 06/10/19 01:00 96 06/10/19 00:46 96 06/09/19 23:20 98.2 F 87 18 127/69 93 L 06/09/19 20:40 98 06/09/19 20:31 100 06/09/19 19:40 98.2 F 100 18 129/64 96 06/09/19 16:00 96 135/75 91 L 06/09/19 15:46 92 06/09/19 15:34 98 Intake and Output 06/09/19 06/10/19 06/10/19 22:59 06:59 14:59 Intake Total 95.333 97.164 360 Output Total 450 Balance 95.333 -352.836 360 Intake: Intake, IV Titration 95.333 97.164 Amount Heparin Sod,Pork in 0.45% 95.333 97.164 NaCl 25,000 unit In 0.45 % NaCl 1 250ml.bag @ 18 UNITS/KG/HR 13.717 mls/hr IV .[id number] [facility] Rx#: [id number] Oral 360 Output: Urine 450 Other: Weight 71.305 kg - Constitutional General appearance: no acute distress - EENT Enucleation with contacted socket right eye Eyes: EOMI (left), PERRLA (left) ENT: hearing grossly normal, normal oropharynx - Neck Neck: no lymphadenopathy Thyroid: bilateral: normal size - Respiratory Respiratory: bilateral: diminished, prolonged expiration - Cardiovascular Rhythm: regular Heart sounds: normal: S1, S2 - Gastrointestinal General gastrointestinal: normal bowel sounds, soft - Integumentary Integumentary: normal - Neurologic Neurologic: CNII-XII intact - Musculoskeletal Musculoskeletal: generalized weakness, strength equal bilaterally - Psychiatric Psychiatric: A&O x's 3, appropriate affect Results CBC & Chem 7: 06/10/19 07:14 06/10/19 07:14 Labs: Abnormal Lab Results - Last 24 Hours (Table) 06/09/19 06/09/19 06/09/19 Range/Units 16:16 19:16 20:34 WBC (3.8-10.6) k/uL RBC (4.30-5.90) m/uL Hct (39.0-53.0) % Neutrophils # (1.3-7.7) k/uL Lymphocytes # (1.0-4.8) k/uL APTT 145.5 H* (22.0-30.0) sec Sodium (137-145) mmol/L Potassium (3.5-5.1) mmol/L Creatinine (0.66-1.25) mg/dL Glucose (74-99) mg/dL POC Glucose (mg/dL) 320 H 156 H (75-99) mg/dL 06/10/19 06/10/19 06/10/19 Range/Units 03:15 06:03 07:14 WBC 21.5 H (3.8-10.6) k/uL RBC 3.91 L (4.30-5.90) m/uL Hct 38.8 L (39.0-53.0) % Neutrophils # 20.6 H (1.3-7.7) k/uL Lymphocytes # 0.4 L (1.0-4.8) k/uL APTT 64.3 H (22.0-30.0) sec Sodium (137-145) mmol/L Potassium (3.5-5.1) mmol/L Creatinine (0.66-1.25) mg/dL Glucose (74-99) mg/dL POC Glucose (mg/dL) 212 H (75-99) mg/dL 06/10/19 06/10/19 Range/Units 07:14 12:40 WBC (3.8-10.6) k/uL RBC (4.30-5.90) m/uL Hct (39.0-53.0) % Neutrophils # (1.3-7.7) k/uL Lymphocytes # (1.0-4.8) k/uL APTT (22.0-30.0) sec Sodium 136 L (137-145) mmol/L Potassium 3.3 L (3.5-5.1) mmol/L Creatinine 0.50 L (0.66-1.25) mg/dL Glucose 192 H (74-99) mg/dL POC Glucose (mg/dL) 204 H (75-99) mg/dL Microbiology - Last 24 Hours (Table) 06/08/19 18:05 Blood Culture - Preliminary Blood No Growth after 24 hours Chest x-ray: report reviewed CT scan - chest: report reviewed Assessment and Plan (1) Pulmonary embolism Narrative/Plan: the patient is being seen for a major pulmonary embolism of the saddle type, with bilateral extension. He is on IV heparin, and symptoms are much improved - The pathophysiology and management plan was discussed in detail with him. This would be considered a provoked clot, as the patient has had several recent hospitalizations, ongoing inflammation, chronic steroid use previously, as well as decreased mobility generally at home. I would therefore recommend anticoagulation for 6-12 months, followed by consideration for cessation assuming the risk profile based on Repeat imaging and d-dimer is favorable. However, if risk factors persist, more prolonged treatment would need to be considered - The patient can be transitioned over to one off the DOACs , assuming he has c overage - Check Doppler of lower extremities for baseline - As this appears to be a provoked clot, and the patient has no prior personal or family history, hypercoagulable workup is not indicated Current Visit: Yes Status: Acute Code(s): I26.99 - OTHER PULMONARY EMBOLISM WITHOUT ACUTE COR PULMONALE SNOMED Code(s): 88877193 Plan: Defer to the admitting service and other consultants for management of his Multiple other medical problems Case discussed in detail with the admitting service. They will check for coverage for eliTechnitrolis
[2019-06-10 20:07] LABS: Glucose,Whole Blood 121 mg/dL (75-99)
[2019-06-10] MEDS: guaiFENesin-DM 100-10MG/5ML 10 ML CUP PO PRN (20:37)
[2019-06-10] MEDS: MELATONIN 5 MG TABLET PO SCH (20:37)
[2019-06-10] MEDS: MONTELUKAST 10 MG TAB PO SCH (20:37)
--- NOTE | 2019-06-10 20:45 | US ---
EXAMINATION TYPE: US venous doppler duplex LE DATE OF EXAM: 06/10/2019 7:23 PM COMPARISON: US CLINICAL HISTORY: Pulmonary embolus. Pulmonary Embolus. Patient on heparin. SIDE PERFORMED: Bilateral TECHNIQUE: The lower extremity deep venous system is examined utilizing real time linear array sonog isrrael with graded compression, doppler sonography and color-flow sonography. VESSELS IMAGED: External Iliac Vein (EIV) Common Femoral Vein Deep Femoral Vein Greater Saphenous Vein * Femoral Vein Popliteal Vein Small Saphenous Vein * Proximal Calf Veins (* superficial vessels) Right Leg: No evidence of DVT in veins imaged from prox calf veins to EIV. Left Leg: There appears to be echogenic thrombus in popliteal vein from distal to prox segment. No c ompression in popliteal vein. Trickle flow seen in popliteal vein. IMPRESSION: There is no evidence of deep venous thrombosis in the right leg. There is acute deep venous thrombosis in the left popliteal vein.
[2019-06-11] MEDS: IPRATROPIUM-ALBUTEROL 3 ML NEB INHALATION PRN ×2 (00:47→04:22)
[2019-06-11 01:31] VITALS: RESP 18
[2019-06-11] MEDS: traMADol 50 MG TAB PO PRN (04:18)
[2019-06-11 06:06] LABS: Glucose,Whole Blood 177 mg/dL (75-99)
[2019-06-11] MEDS: INSULIN ASPART (NovoLOG) 100 UNIT/ML VIAL SQ SCH ×2 (06:29→11:54)
[2019-06-11] MEDS: methylPREDNISolone SOD SUCCI 125 MG/2 ML VIAL IV SCH (06:31)
[2019-06-11] MEDS: HEPARIN SOD,PORK IN 0.45% NACL 25,000 UNIT in 0.45% NACL 1 250ML.BAG IV SCH (06:32)
[2019-06-11 06:42] LABS: Basophils # (A) 0.1 k/uL (0-0.2); Basophils % (A) 0 %; Eosinophils % (A) 0 %; HCT 35.4 % (39.0-53.0); HGB 12.1 gm/dL (13.0-17.5); Lymphocytes # (A) 0.2 k/uL (1.0-4.8); Lymphocytes % (A) 1 %; MCH 33.7 pg (25.0-35.0); MCHC 34.2 g/dL (31.0-37.0); MCV 98.6 fL (80.0-100.0); Mean Platelet Volume 5.8; Monocytes # (A) 0.5 k/uL (0-1.0); Monocytes % (A) 3 %; Neutrophils # (A) 17.5 k/uL (1.3-7.7); Neutrophils % (A) 95 %; Platelet Count 272 k/uL (150-450); RBC 3.59 m/uL (4.30-5.90); RDW 14.9 % (11.5-15.5); WBC 18.5 k/uL (3.8-10.6)
[2019-06-11] MEDS: IPRATROPIUM-ALBUTEROL 3 ML NEB INHALATION SCH ×3 (08:17→16:08)
[2019-06-11 08:20] VITALS: TEMP 96.7
[2019-06-11] MEDS ORDERED: APIXABAN 5 MG TAB PO SCH (10:00)
[2019-06-11] MEDS ORDERED: Potassium Replacement Protocol 1 EACH MISC MISCELLANE PRN (10:02)
[2019-06-11] MEDS: amLODIPine 10 MG TAB PO SCH (10:12)
[2019-06-11] MEDS: ITRACONAZOLE 100 MG CAP PO SCH (10:12)
[2019-06-11] MEDS: valACYclovir HCL 1,000 MG TABLET PO SCH (10:12)
[2019-06-11] MEDS: ESCITALOPRAM 10 MG TAB PO SCH (10:13)
[2019-06-11] MEDS: AMOXIC-POT CLAV 875-125MG 1 EACH TAB PO SCH (10:13)
[2019-06-11] MEDS: FAMOTIDINE 20 MG TAB PO SCH ×2 (10:13→10:16)
[2019-06-11] MEDS: NICOTINE 14MG/24HR PATCH TRANSDERM SCH (10:13)
[2019-06-11] MEDS ORDERED: ENOXAPARIN 80 MG/0.8 ML SYRINGE SQ SCH ×2 (10:30→21:00)
[2019-06-11 11:31] LABS: INR 0.9 (<1.2); Prothrombin Time 10.2 sec (9.0-12.0)
[2019-06-11] MEDS: POTASSIUM CHLORIDE ER 20 MEQ TAB.ER PO SCH ×2 (11:42→13:39)
[2019-06-11 11:50] LABS: Glucose,Whole Blood 131 mg/dL (75-99)
--- NOTE | 2019-06-11 12:02 | P.PN ---
Subjective Progress Note Date: 06/11/19 Principal diagnosis: Saddle pulmonary embolism, COPD exacerbation This is a 59-year-old white male patient, who is known to our service from previous admissions for complications related to COPD, and right upper lobe cavitating pneumonia related to aspergillosis, and patient has been on Sporanox for treatment. Patient was recently seen in the hospital when he was hospitalized for COPD exacerbation, and his right upper lobe cavitating pneumonia has been steadily improving on the chest x-rays, patient was also treated for herpes zoster rash and discharged home in stable condition. 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 Patient came into the emergency department on 06/08/2019 with complaints of difficulty breathing of 2 days' duration, he reports a low-grade fever, dry cough, he states it hurts to cough in his throat, and reports no nausea vomiting or diarrhea, he is still taking his Sporanox. He follows Dr. Bland in the pulmonary clinic, chest x-ray was taken in the emergency department showing right upper lobe consolidation with air fluid level and cavitation. Labs showed a white blood count of 8.6, hemoglobin of 14.1, coagulation profile was within normal limits, sodium was 135, and the rest the electrolytes were within normal limits, BUN was 12 creatinine was 0.54, troponin was negative 1. EKG showed normal sinus rhythm without acute ischemic changes. He is afebrile, hemodynamically stable, he is on 2 L of oxygen pulse ox of 98%, CT chest with contrast was completed showing evidence of incidental nonocclusive saddle embolus extending into the left upper lobe branch and throughout the right-sided lobar branches and segmental branches of the right lower lobe without CT evidence of right heart strain at this time. It also showed gradually decreasing in size right upper lobe superior segment cavitary lesion, and minimal residual tree-in-bud opacities in the basilar left lower lobe. On 06/10/2019 patient is seen in follow-up on selective care unit, still has quite congestive cough, he is still short of breath, he states he hasn't i mproved much since admission, lung sounds reveal diminished breath sounds, patient remains on heparin drip for her saddle embolism found on yesterday's CT chest with contrast. Eliquis prescription was sent to the pharmacy, however discharge planning states patient requires prior preauthorization which may take 2 or 3 days. For now continues on IV heparin. He is on Augmentin in addition to his Sporanox, CT chest showed a decrease in size of the right upper lobe appears segment cavitary lesion. Patient is afebrile, blood culture showed no growth. Today's labs have been reviewed, white count is 21.5, hemoglobin is 13.0, sodium is 136, potassium 3.3, the rest of electrolytes were within normal limits, BUN is 16 creatinine 0.50. No complaints of chest pain, or hemoptysis On 06/11/2019 patient seen in follow-up on selective care unit, he is awake and alert, still has some exertional dyspnea, and intermittent shortness of breath, but no acute distress, he is on 2 L of oxygen his pulse ox is 95%, his been up in the chair, ambulating short distances in his room, doing fairly well, no c omplaints of chest pain, no complaints of hemoptysis, lung sounds reveal diminished breath sounds with a few scattered rales, no significant cough or congestion, his ultrasound and lower extremities revealed possibility of left leg DVT, and patient was also found to have extensive pulmonary emboli on the CT chest with contrast, without CT evidence of right heart strain. he remains on Sporanox for his fungal pneumonia. CT chest showed decrease in the size of the cavitating right upper lobe lesion. Patient has had no fever or chills, hemodynamically patient is stable. We'll try to put the patient on Eliquis however the pharmacy has called with the warning that combination of Sporanox and Eliquis may significantly increase the risk for bleeding, Xarelto has the same effect. Coumadin although may still increase the risk of bleeding, may be a better choice because of possibility of monitoring INR levels. In view of the pharmacy's recommendations, and possibility of the patient's Medicaid not approving his Eliquis for long-term anticoagulation beyond the one free month, we will go ahead and start the patient on oral Coumadin and Lovenox bridge Objective - Vital Signs Vital signs: Vital Signs Temp 96.7 F L 06/11/19 08:17 Pulse 95 06/11/19 11:46 Resp 18 06/11/19 08:17 BP 134/73 06/11/19 08:17 Pulse Ox 95 06/11/19 08:17 Intake & Output 06/10/19 06/11/19 06/11/19 18:59 06:59 18:59 Intake Total 1017.503 10 380 Output Total 600 800 Balance 1017.503 -590 -420 Weight 72 kg Intake: IV 10 20 Invasive Line 2 10 20 Intake, IV Titration 57.503 Amount Heparin Sod,Pork in 0.45% 57.503 NaCl 25,000 unit In 0.45 % NaCl 1 250ml.bag @ 18 UNITS/KG/HR 13.717 mls/hr IV .[id number] [facility] Rx#: [id number] Oral 960 360 Output: Urine 600 800 Other: Voiding Method Toilet Urinal # Voids 3 # Bowel Movements 1 - Exam GENERAL EXAM: Alert, pleasant, 58-year-old white male, on 2 L of oxygen with a pulse ox of 95% comfortable in no apparent distress. HEAD: Normocephalic/atraumatic. EYES: Normal reaction of pupils, equal size in the left eye, patient has a prosthetic right eye. Conjunctiva pink, sclera white. NOSE: Clear with pink turbinates. THROAT: No erythema or exudates. NECK: No masses, no JVD, no thyroid enlargement, no adenopathy. CHEST: No chest wall deformity. Symmetrical expansion. LUNGS: Equal air entry with no crackles, wheeze, rhonchi or dullness. Congestive cough CVS: Regular rate and rhythm, normal S1 and S2, no gallops, no murmurs, no rubs ABDOMEN: Soft, nontender. No hepatosplenomegaly, normal bowel sounds, no gu arding or rigidity. EXTREMITIES: No clubbing, no edema, no cyanosis, 2+ pulses and upper and lower e xtremities. MUSCULOSKELETAL: Muscle strength and tone normal. SPINE: No scoliosis or deformity SKIN: No rashes CENTRAL NERVOUS SYSTEM: Alert and oriented -3. No focal deficits, tone is normal in all 4 extremities. PSYCHIATRIC: Alert and oriented -3. Appropriate affect. Intact judgment and insight. - Labs CBC & Chem 7: 06/11/19 06:17 06/10/19 07:14 Labs: Abnormal Lab Results - Last 24 Hours (Table) 06/10/19 06/10/19 06/10/19 Range/Units 12:40 16:39 20:06 WBC (3.8-10.6) k/uL RBC (4.30-5.90) m/uL Hgb (13.0-17.5) gm/dL Hct (39.0-53.0) % Neutrophils # (1.3-7.7) k/uL Lymphocytes # (1.0-4.8) k/uL APTT (22.0-30.0) sec POC Glucose (mg/dL) 204 H 109 H 121 H (75-99) mg/dL 06/11/19 06/11/19 06/11/19 Range/Units 06:04 06:17 06:17 WBC 18.5 H (3.8-10.6) k/uL RBC 3.59 L (4.30-5.90) m/uL Hgb 12.1 L (13.0-17.5) gm/dL Hct 35.4 L (39.0-53.0) % Neutrophils # 17.5 H (1.3-7.7) k/uL Lymphocytes # 0.2 L (1.0-4.8) k/uL APTT 56.3 H (22.0-30.0) sec POC Glucose (mg/dL) 177 H (75-99) mg/dL 06/11/19 Range/Units 11:42 WBC (3.8-10.6) k/uL RBC (4.30-5.90) m/uL Hgb (13.0-17.5) gm/dL Hct (39.0-53.0) % Neutrophils # (1.3-7.7) k/uL Lymphocytes # (1.0-4.8) k/uL APTT (22.0-30.0) sec POC Glucose (mg/dL) 131 H (75-99) mg/dL Microbiology - Last 24 Hours (Table) 06/08/19 18:05 Blood Culture - Preliminary Blood No Growth after 48 hours Assessment and Plan Plan: Assessment: #1. Nonocclusive saddle emboli, an incidental finding on the CT chest with contrast performed for the investigation of the right upper lobe cavitary lesion, and the embolus extends into the left upper lobe branch and throughout the right-sided lobar branches and segmental branches of the right lower lobe, w ithout CT evidence of right heart strain at this time #2. Fungal pneumonia in the right upper lobe, which has been under treatment since March 2019 and is improving radiologically, patient has been on a combination of Sporanox. CT chest with contrast performed today on 06/09/2019 shows decreasing in size right upper lobe cavitary lesion #2. Recent herpes zoster rash, and the rash is dry #3. History of severe oxygen-dependent chronic obstructive pulmonary disease with the baseline FEV1 of 36% of predicted #4. Former smoker, currently in remission #5. History of present CVA involving the basal ganglia in October 2014 #6. Right eye blindness related to shingles and insertion of right eye prosthesis #7. Diabetes with this type II #8. GERD/reflux #9. History of coronary artery disease with previous SC #10. Left popliteal vein DVT Plan: Patient will be started on Coumadin 7.5 mg today, and we'll start Lovenox at therapeutic dose of 70 mg subcutaneously twice daily for bridging. Patient may not get approved for Eliquis beyond the one for a month, and Eliquis's and Xare lto may significantly increase the patient's risk for bleeding in combination with Sporanox. Patient has home care who can follow his INRs. Otherwise no fever or chills, no couplets of chest pain, his breathing seems to be pretty close to his baseline, no significant cough or congestion. He is tolerating ambulation in the room, hemodynamically patient is stable, from pulmonary perspective she is stable for discharge home today with Coumadin and Lovenox, and prednisone taper and Augmentin and patient can finish his Sporanox per Dr. Owen's recommendations. He will need follow-up with Dr. Bland in the office in one or 2 weeks I performed a history & physical examination of the patient and discussed their management with my nurse practitioner, Jeane Hwang. I reviewed the nurse practitioner's note and agree with the documented findings and plan of care. Lung sounds are positive for bibasilar crackles The findings and the impression was discussed with the patient. I attest to the documentation by the nurse practitioner. Time with Patient: Less than 30
[2019-06-11 12:18] VITALS: BP 152/72; PULSE 100
[2019-06-11] MEDS ORDERED: ALPRAZolam 0.25 MG TAB PO STA (12:44)
[2019-06-11] MEDS: GABAPENTIN 400 MG CAP PO PRN (14:24)
[2019-06-11] MEDS: guaiFENesin-DM 100-10MG/5ML 10 ML CUP PO PRN (14:24)
[2019-06-11] MEDS ORDERED: methylPREDNISolone SOD SUCCI 40 MG/ML 1 ML VIAL IV SCH (16:00)
[2019-06-11] MEDS ORDERED: WARFARIN 7.5 MG TAB PO SCH (18:00)
--- NOTE | 2019-06-11 21:08 | P.DS ---
Providers Date of admission: 06/08/19 20:44 Attending physician: Tricia Cano Consults: 06/08/19 20:42 Consult Physician Routine Consulting Provider: Willie Garcia Consult Reason/Comments: COPD exacerbation, fungal infection of the lungs Do you want consulting provider notified?: Yes 06/09/19 20:04 Consult Physician Routine Consulting Provider: Marquis Rodriguez Consult Reason/Comments: extensive PE Do you want consulting provider notified?: Yes Primary care physician: [facility] Course: Diagnoses: Acute pulmonary embolism. CT of the thorax showing saddle embolus extending into the left upper lobe and all right-sided lobar branches and also possible right lower lobe. Acute right leg DVT Recent history of Pneumonia with combined fungal and bacterial infection. Treated and is improving Stable and improving cavitating right upper lobe abscess. Thought to be fungal infection/fungal ball. Continue with itraconazole. 7 mm Pulmonary nodules in the right basal lung COPD and mild acute exacerbation Leukocytosis, multifactorial due to infection and steroid effect. Improving on discharge Recent history herpez zoster , shingles of the left flank Left shoulder pain, left shoulder injury status post fall. recent orthopedic input Recommended outpatient follow-up in 1 week. 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 History of Coronary artery disease with history of [place]. Ongoing nicotine addiction Hospital course: Patient is a 58-year-old male with a known history of COPD and chronic hypoxic respiratory failure on home oxygen 2 L where nausea cannula, history of CVA, nicotine addiction and chronic pain, hypertension and acid reflux and history of coronary artery disease and has history of [place], recently treated for right upper lobe cavitary pneumonia with questionable possible fungal infection that responded previously on Sporanox Also he was treated for Shingles and left T10 dermatome,Recently presents with dyspnea. He has some dry occasional cough. CT angiography thorax showing saddle embolus extending into the left upper lobe and all right-sided lobar branches and also possible right lower lobe. However it shows gradually decrease in size of the right upper lobe cavitary lesion. Doppler showing right lower leg DVT. Patient was started with heparin drip and switched to Eliquis prior to discharge. Patient has been evaluated by both hematology and pulmonary team. Also patient continued on Sporanox and Valtrex, Augmentin is added. Also he was treated with steroid for mild COPD exacerbation. On the day of discharge patient is back close to his baseline with dyspnea improving, with good air entry on both sides of the lung. No chest pain. No abdominal pain. No nausea vomiting. No change in urine or bowel habits. No fever Patient was cleared for discharge by pulmonary and hematology team's Problems and management plan were discussed with the patient and he verbalized understanding and acceptance Patient was found stable and can be discharged home however he needs follow-up as an outpatient. Patient was instructed to follow up with PCP within one week and patient agrees pt could not be prescribed Eliquis's, Pradaxa and Xarelto as they may significantly increase the patient's risk for bleeding in combination with Sporanox. Patient has home care who can follow his INRs and will follow up with , i called and discussed the case with her including the need to be on coumadin with target INR 2-3 with bridging lovenox 80 mg BID , pt is aware he has appointment with tomorrow around 2 pm, and he was trying to arrange for his ride to her office tomorrow . pt injected himself with lovenox today with 80 mg syrige of lovenox and that went well. i discussed with the pt extensively about the coumadin , INR , bridging lovenox, importance of f/u and frequent checking INR, HHC, follow up with hematology and all above and he agrees. pt agrees to be discharged home today. pt tolerated ultram TID , we are going to dc him on lower frequency at BID x 2 days only for his pleuretic chest pain related to PE which is better controlled now. R/B/A explained Gen: patient is a AAOx3, no distress CVS: S1-S2, RRR, no murmur Lungs: B/L CTA, no wheezing Abdomen: soft, no distention, no tenderness, positive bowel sounds Extremity: no leg edema or induration Time spent more than 35 minutes Patient Condition at Discharge: Stable Plan - Discharge Summary New Discharge Prescriptions: New Ipratropium-Albuterol Nebulize [Duoneb 0.5 mg-3 mg/3 ml Soln] 3 ml INHALATION QID 30 Days #6 box Amoxic-Pot Clav 875-125Mg [Augmentin 875-125] 1 each PO Q12HR #5 tab Warfarin [Coumadin] 5 mg PO DAILY #20 tab Enoxaparin [Lovenox] 80 mg SQ Q12HR 5 Days #10 syringe predniSONE 0 mg PO DIRECTED #18 tab traMADol HCl [Ultram] 50 mg PO Q12HR PRN 2 Days #4 tab PRN Reason: Pain Continue Melatonin 5 mg PO HS Montelukast [Singulair] 10 mg PO HS #30 tab Ipratropium-Albuterol Nebulize [Duoneb 0.5 mg-3 mg/3 ml Soln] 3 ml INHALATION RT-QID PRN #60 ampul.neb PRN Reason: Shortness Of Breath Gabapentin 800 mg PO Q6H PRN PRN Reason: Pain Fluticasone/Salmeterol [Fluticasone-Salmeterol 232-14] 1 puff INHALATION RT- BID amLODIPine [Norvasc] 10 mg PO DAILY Albuterol Inhaler [Ventolin Hfa Inhaler] 1 - 2 puff INHALATION RT-Q6H PRN PRN Reason: Shortness Of Breath guaiFENesin SYRUP 100MG/5ML [Robitussin] 200 mg PO Q6H PRN #1 bottle PRN Reason: Cough Escitalopram [Lexapro] 10 mg PO DAILY #15 tab Itraconazole [Onmel] 200 mg PO DAILY #30 tablet valACYclovir HCL [Valtrex] 1,000 mg PO TID #15 tablet Famotidine [Pepcid AC] 10 mg PO DAILY Nicotine 14Mg/24Hr Patch [Habitrol] 1 patch TD DAILY Discharge Medication List Melatonin 5 mg PO HS 11/14/18 [History] Montelukast [Singulair] 10 mg PO HS #30 tab 11/17/18 [Rx] Ipratropium-Albuterol Nebulize [Duoneb 0.5 mg-3 mg/3 ml Soln] 3 ml INHALATION RT-QID PRN #60 ampul.neb 12/15/18 [Rx] Fluticasone/Salmeterol [Fluticasone-Salmeterol 232-14] 1 puff INHALATION RT-BID 04/29/19 [History] Gabapentin 800 mg PO Q6H PRN 04/29/19 [History] amLODIPine [Norvasc] 10 mg PO DAILY 04/29/19 [History] Albuterol Inhaler [Ventolin Hfa Inhaler] 1 - 2 puff INHALATION RT-Q6H PRN 05/11/19 [History] Escitalopram [Lexapro] 10 mg PO DAILY #15 tab 05/15/19 [Rx] guaiFENesin SYRUP 100MG/5ML [Robitussin] 200 mg PO Q6H PRN #1 bottle 05/15/19 [Rx] Itraconazole [Onmel] 200 mg PO DAILY #30 tablet 05/24/19 [Rx] valACYclovir HCL [Valtrex] 1,000 mg PO TID #15 tablet 05/24/19 [Rx] Famotidine [Pepcid AC] 10 mg PO DAILY 06/04/19 [History] Nicotine 14Mg/24Hr Patch [Habitrol] 1 patch TD DAILY 06/04/19 [History] Amoxic-Pot Clav 875-125Mg [Augmentin 875-125] 1 each PO Q12HR #5 tab 06/11/19 [Rx] Enoxaparin [Lovenox] 80 mg SQ Q12HR 5 Days #10 syringe 06/11/19 [Rx] Ipratropium-Albuterol Nebulize [Duoneb 0.5 mg-3 mg/3 ml Soln] 3 ml INHALATION QID 30 Days #6 box 06/11/19 [Rx] Warfarin [Coumadin] 5 mg PO DAILY #20 tab 06/11/19 [Rx] predniSONE 0 mg PO DIRECTED #18 tab 06/11/19 [Rx] traMADol HCl [Ultram] 50 mg PO Q12HR PRN 2 Days #4 tab 06/11/19 [Rx] Follow up Appointment(s)/Referral(s): Isis Vogt MD [STAFF PHYSICIAN] - 06/24/19 2:45 pm (for your lung infection and fungal ball. also for your 7 mm lung nodule) Marquis Rodriguez MD [STAFF PHYSICIAN] - 6 Weeks (in 3 months- office will call with follow up appt) [facility], [NON-STAFF] - Urszula Carrasco MD [Primary Care Provider] - 06/12/19 2:15 pm (Saturday) Evaristo García MD [STAFF PHYSICIAN] - 06/17/19 2:45 pm (for your shoulder problem) Patient Instructions/Handouts: Pulmonary Embolism (DC), Deep Vein Thrombosis (DC), Vitamin K in Foods (DC), Safe Use of Anticoagulants (DC) Activity/Diet/Wound Care/Special Instructions: Check PT/INR on Saturday06/15/19 and send results to Dr. Urszula Wen, check PT/INR every Saturday, Saturday, Saturday after that until INR 2.0 - notify Dr. Urszula Carrasco with PT/INR results Discharge Disposition: HOME WITH HOME HEALTH SERVICES
== END 2019-06-11 16:21 | disposition home health service (06) | DRG 175 ==
LOC: EC 17:11 → 3SCARD 20:44 → 3NMEDONC 06-09 11:31 → 3SCARD 06-09 11:48
PROVIDERS: ADMIT Hospitalist; ATTEND Hospitalist
DX: I26.92 Saddle embolus of pulmonary artery without acute cor pulmonale (principal); J16.8 Pneumonia due to other specified infectious organisms; J85.1 Abscess of lung with pneumonia; J44.0 Chronic obstructive pulmonary disease with (acute) lower respiratory infection; J44.1 Chronic obstructive pulmonary disease with (acute) exacerbation; J96.11 Chronic respiratory failure with hypoxia; B44.9 Aspergillosis, unspecified; I82.401 Acute embolism and thrombosis of unspecified deep veins of right lower extremity; E11.9 Type 2 diabetes mellitus without complications; F32.9 Major depressive disorder, single episode, unspecified; F41.0 Panic disorder [episodic paroxysmal anxiety]; G89.4 Chronic pain syndrome; H54.61 Unqualified visual loss, right eye, normal vision left eye; I10 Essential (primary) hypertension; I25.10 Atherosclerotic heart disease of native coronary artery without angina pectoris; I25.2 Old myocardial infarction; K21.9 Gastro-esophageal reflux disease without esophagitis; T38.0X5A Adverse effect of glucocorticoids and synthetic analogues, initial encounter; Z79.52 Long term (current) use of systemic steroids; Z79.899 Other long term (current) drug therapy; Z80.51 Family history of malignant neoplasm of kidney; Z80.8 Family history of malignant neoplasm of other organs or systems; Z82.5 Family history of asthma and other chronic lower respiratory diseases; Z86.73 Personal history of transient ischemic attack (TIA), and cerebral infarction without residual deficits; Z87.01 Personal history of pneumonia (recurrent); Z87.891 Personal history of nicotine dependence; Z97.0 Presence of artificial eye; Z99.81 Dependence on supplemental oxygen
CPT/HCPCS: 36415; 71046; 71260; 80048; 80053; 83605; 83735; 84484; 85025; 85610; 85730; 87040; 93005; 93306; 93970; 94640; 94760; 96365; 96366; 96368; 96375; 96376; 99285

== ENCOUNTER 2019-06-13 17:08 | Inpatient (IN) | payer OTHER ==
--- NOTE | 2019-06-13 17:21 | ED ---
SOB HPI - General Stated Complaint: CLEMENCIA Time Seen by Provider: 06/13/19 17:13 - History of Present Illness Initial Comments: Patient is a 59-year-old male past history of COPD on 2 L home O2, [place], fungal pneumonia and recently diagnosed PE who presents to the emergency department for shortness of breath. States that throughout the day today he has had an increasing cough and shortness of breath. He was wearing his home O2 without improvement in his symptoms. He is on Lovenox and Coumadin for his DVT. He has been taking his medications as directed and hasn't missed any doses. He denies hemoptysis. Does have mild chest pain. Denies any back or flank pain. No fevers or chills. Patient was recently discharged from the hospital on . There are no other alleviating, precipitating or modifying factors - Related Data Home Medications Medication Instructions Recorded Confirmed Melatonin 5 mg PO HS 11/14/18 06/13/19 Fluticasone/Salmeterol 1 puff INHALATION RT-BID 04/29/19 06/13/19 [Fluticasone-Salmeterol 232-14] Gabapentin 800 mg PO Q6H PRN 04/29/19 06/13/19 amLODIPine [Norvasc] 10 mg PO DAILY 04/29/19 06/13/19 Albuterol Inhaler [Ventolin Hfa 1 - 2 puff INHALATION RT-Q6H PRN 05/11/19 06/13/19 Inhaler] Famotidine [Pepcid AC] 10 mg PO DAILY 06/04/19 06/13/19 Nicotine 14Mg/24Hr Patch [Habitrol] 1 patch TRANSDERM DAILY 06/04/19 06/13/19 Amoxic-Pot Clav 875-125Mg 1 tab PO Q12HR 06/13/19 06/13/19 [Augmentin 875-125] Ipratropium-Albuterol Nebulize 3 ml INHALATION RT-QID 06/13/19 06/13/19 [Duoneb 0.5 mg-3 mg/3 ml Soln] Itraconazole [Sporanox] 200 mg PO DAILY 06/13/19 06/13/19 predniSONE See Taper PO DAILY 06/13/19 06/13/19 Previous Rx's Medication Instructions Recorded Montelukast [Singulair] 10 mg PO HS #30 tab 11/17/18 Escitalopram [Lexapro] 10 mg PO DAILY #15 tab 05/15/19 guaiFENesin SYRUP 100MG/5ML 200 mg PO Q6H PRN #1 bottle 05/15/19 [Robitussin] Warfarin [Coumadin] 5 mg PO DAILY #20 tab 06/11/19 ALPRAZolam [Xanax] 0.25 mg PO TID PRN #30 tab 06/15/19 Melatonin 5 mg PO HS PRN 30 Days #30 tablet 06/15/19 predniSONE 10 mg PO DIRECTED #30 tab 06/15/19 Allergies Allergy/AdvReac Type Severity Reaction Status Date / Time peanut [Peanut Butter] AdvReac Nausea & Verified 06/13/19 17:48 Vomiting & Diarrhea Review of Systems ROS Statement: Those systems with pertinent positive or pertinent negative responses have been documented in the HPI. ROS Other: All systems not noted in ROS Statement are negative. 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 Last Myocardial Infarction Date:: unknown History of Any Multi-Drug Resistant Organisms: None Reported Past Surgical History: Orthopedic Surgery Additional Past Surgical History / Comment(s): metal plate left hand middle finger, right eye enucleation. Past Anesthesia/Blood Transfusion Reactions: No Reported Reaction Past Psychological History: Anxiety, Depression, Panic Disorder Additional Psychological History / Comment(s): Lives in apartment, 17 steps to climb.Has a nebulizer/oxygen. 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 Smoking Status: Former smoker Past Alcohol Use History: Occasional Additional Past Alcohol Use History / Comment(s): STARTED SMOKING 1975 08 PPD- QUIT 6 MONTHS AGO, PT STATED HE DRINKS 2 BEER a day Past Drug Use History: Marijuana Additional Drug Use History / Comment(s): PAST MARIJUANA USE IN HIS TEEN YEARS. - Past Family History Mother Family Medical History: Cancer Additional Family Medical History / Comment(s): Pt believes his Mom of Kidney Cancer Father Family Medical History: Cancer, COPD, Respiratory Disorder Additional Family Medical History / Comment(s): Melanoma General Exam General appearance: alert, in no apparent distress Head exam: Present: atraumatic, normocephalic, normal inspection Eye exam: Present: normal appearance, PERRL, EOMI. Absent: scleral icterus, conjunctival injection, periorbital swelling ENT exam: Present: normal exam, mucous membranes moist Neck exam: Present: normal inspection. Absent: tenderness, meningismus, lymphadenopathy Respiratory exam: Present: wheezes, accessory muscle use, decreased breath sounds. Absent: respiratory distress, rales, rhonchi, stridor Cardiovascular Exam: Present: regular rate, normal rhythm, normal heart sounds. Absent: systolic murmur, diastolic murmur, rubs, gallop, clicks GI/Abdominal exam: Present: soft, normal bowel sounds. Absent: distended, ten derness, guarding, rebound, rigid Extremities exam: Present: normal inspection, full ROM, normal capillary refill. Absent: tenderness, pedal edema, joint swelling, calf tenderness Back exam: Present: normal inspection Neurological exam: Present: alert, oriented X3, CN II-XII intact Psychiatric exam: Present: normal affect, normal mood Skin exam: Present: warm, dry, intact, normal color. Absent: rash Course Vital Signs 06/13/19 06/13/19 06/13/19 17:10 17:18 17:30 Temperature 98.8 F Pulse Rate 100 101 H 100 Respiratory 18 18 14 Rate Blood Pressure 134/87 134/87 O2 Sat by Pulse 95 97 Oximetry 06/13/19 06/13/19 06/13/19 18:00 18:14 19:07 Temperature Pulse Rate 98 98 98 Respiratory 15 15 Rate Blood Pressure 137/80 137/80 O2 Sat by Pulse 97 97 Oximetry 06/13/19 06/13/19 06/13/19 19:18 21:08 21:21 Temperature Pulse Rate 100 98 97 Respiratory Rate Blood Pressure O2 Sat by Pulse Oximetry Medical Decision Making - Medical Decision Making Upon arrival the patient is placed in room 3. He does have significant work of breathing. He is given a DuoNeb breathing treatment by EMS. We did provide him with a second one here. I recommended laboratory studies. The patient did recently have an admission and was diagnosed with a saddle PE. Because of this I did recommend evaluating the patient's clot burden to ensure that this isn't the reason for his shortness of breath. laboratory studies demonstrate a white blood cell count 14.6. This is compared from the patient's previous blood work. INR is 1.3. CMP is unremarkable. Her troponin is negative. BNP is 367. Chest x-ray demonstrates right basilar cavitary lesion of the right upper lobe. CT of the chest demonstrates pulmonary embolism compatible with saddle embolism at the main pulmonary artery bifurcation. Was seen on most recent chest CT. I discussed the case with Dr. Gomez who states that the clot burden isn't any worse than previous. Cavitary lesion is similar from previous study. Emphasematous changes. I did reevaluate the patient. He still has decreased breath sounds bilaterally with pursed lip breathing. Because of did recommend hospital admission. The patient is provided with a third DuoNeb breathing treatment. I called and discussed the case with Dr. Nunez who accepted admission for the patient. Bridging orders were placed and the patient was awaiting a bed on the floor. He reports that he took all his scheduled Lovenox and Coumadin today therefore I will hold off on this medication tonight - Lab Data Result diagrams: 06/14/19 05:20 06/13/19 17:25 Lab Results 06/13/19 06/13/19 06/13/19 Range/Units 17:25 17:25 17:25 WBC 14.6 H (3.8-10.6) k/uL RBC 4.17 L (4.30-5.90) m/uL Hgb 14.0 (13.0-17.5) gm/dL Hct 40.7 (39.0-53.0) % MCV 97.7 (80.0-100.0) fL MCH 33.6 (25.0-35.0) pg MCHC 34.4 (31.0-37.0) g/dL RDW 15.1 (11.5-15.5) % Plt Count 333 (150-450) k/uL Neutrophils % 87 % Lymphocytes % 4 % Monocytes % 6 % Eosinophils % 0 % Basophils % 2 % Neutrophils # 12.8 H (1.3-7.7) k/uL Lymphocytes # 0.6 L (1.0-4.8) k/uL Monocytes # 0.8 (0-1.0) k/uL Eosinophils # 0.0 (0-0.7) k/uL Basophils # 0.4 H (0-0.2) k/uL PT (9.0-12.0) sec INR (<1.2) APTT (22.0-30.0) sec Sodium 138 (137-145) mmol/L Potassium 3.5 (3.5-5.1) mmol/L Chloride 100 (98-107) mmol/L Carbon Dioxide 29 (22-30) mmol/L Anion Gap 9 mmol/L BUN 17 (9-20) mg/dL Creatinine 0.56 L (0.66-1.25) mg/dL Est GFR (CKD-EPI)AfAm >90 (>60 ml/min/1.73 sqM) Est GFR (CKD-EPI)NonAf >90 (>60 ml/min/1.73 sqM) Glucose 138 H (74-99) mg/dL Calcium 9.5 (8.4-10.2) mg/dL Total Bilirubin 0.3 (0.2-1.3) mg/dL AST 28 (17-59) U/L ALT 43 (21-72) U/L Alkaline Phosphatase 60 (38-126) U/L Troponin I (0.000-0.034) ng/mL NT-Pro-B Natriuret Pep 367 pg/mL Total Protein 6.2 L (6.3-8.2) g/dL Albumin 3.7 (3.5-5.0) g/dL 06/13/19 06/13/19 Range/Units 17:25 17:25 WBC (3.8-10.6) k/uL RBC (4.30-5.90) m/uL Hgb (13.0-17.5) gm/dL Hct (39.0-53.0) % MCV (80.0-100.0) fL MCH (25.0-35.0) pg MCHC (31.0-37.0) g/dL RDW (11.5-15.5) % Plt Count (150-450) k/uL Neutrophils % % Lymphocytes % % Monocytes % % Eosinophils % % Basophils % % Neutrophils # (1.3-7.7) k/uL Lymphocytes # (1.0-4.8) k/uL Monocytes # (0-1.0) k/uL Eosinophils # (0-0.7) k/uL Basophils # (0-0.2) k/uL PT 12.9 H (9.0-12.0) sec INR 1.3 H (<1.2) APTT 28.9 (22.0-30.0) sec Sodium (137-145) mmol/L Potassium (3.5-5.1) mmol/L Chloride (98-107) mmol/L Carbon Dioxide (22-30) mmol/L Anion Gap mmol/L BUN (9-20) mg/dL Creatinine (0.66-1.25) mg/dL Est GFR (CKD-EPI)AfAm (>60 ml/min/1.73 sqM) Est GFR (CKD-EPI)NonAf (>60 ml/min/1.73 sqM) Glucose (74-99) mg/dL Calcium (8.4-10.2) mg/dL Total Bilirubin (0.2-1.3) mg/dL AST (17-59) U/L ALT (21-72) U/L Alkaline Phosphatase (38-126) U/L Troponin I <0.012 (0.000-0.034) ng/mL NT-Pro-B Natriuret Pep pg/mL Total Protein (6.3-8.2) g/dL Albumin (3.5-5.0) g/dL - EKG Data EKG Comments: EKG demonstrates a sinus rhythm with a short VT interval. Ventricular rate 99. VT 106. QRS 82. QTC of 464. No acute ST segment elevations or depressions concerning for ischemic changes Disposition Clinical Impression: COPD exacerbation, Pulmonary embolism Disposition: ADMITTED IP TO THIS [facility] Condition: Stable Is patient prescribed a controlled substance at d/c from ED?: No Decision to Admit Reason: Admit from EC Decision Date: 06/13/19 Decision Time: 21:23
[2019-06-13 17:38] LABS: Basophils # (A) 0.4 k/uL (0-0.2); Basophils % (A) 2 %; Eosinophils % (A) 0 %; HCT 40.7 % (39.0-53.0); Lymphocytes # (A) 0.6 k/uL (1.0-4.8); Lymphocytes % (A) 4 %; MCH 33.6 pg (25.0-35.0); MCHC 34.4 g/dL (31.0-37.0); MCV 97.7 fL (80.0-100.0); Mean Platelet Volume 5.6; Monocytes # (A) 0.8 k/uL (0-1.0); Monocytes % (A) 6 %; Neutrophils # (A) 12.8 k/uL (1.3-7.7); Neutrophils % (A) 87 %; Platelet Count 333 k/uL (150-450); RBC 4.17 m/uL (4.30-5.90); RDW 15.1 % (11.5-15.5); WBC 14.6 k/uL (3.8-10.6)
[2019-06-13 17:49] LABS: INR 1.3 (<1.2); Partial Thromboplastin Time 28.9 sec (22.0-30.0); Prothrombin Time 12.9 sec (9.0-12.0)
[2019-06-13 17:50] LABS: ALT 43 U/L (21-72); AST 28 U/L (17-59); African American GFR (CKD) >90 (>60 ml/min/1.73 sqM); Albumin 3.7 g/dL (3.5-5.0); Alkaline Phosphatase 60 U/L (38-126); Anion Gap 9 mmol/L; Blood Urea Nitrogen 17 mg/dL (9-20); Calcium 9.5 mg/dL (8.4-10.2); Carbon Dioxide 29 mmol/L (22-30); Chloride 100 mmol/L (98-107); Glucose 138 mg/dL (74-99); Potassium 3.5 mmol/L (3.5-5.1); Sodium 138 mmol/L (137-145); Total Bilirubin 0.3 mg/dL (0.2-1.3); Total Protein 6.2 g/dL (6.3-8.2)
[2019-06-13] MEDS ORDERED: IPRATROPIUM-ALBUTEROL 3 ML NEB INHALATION STA ×2 (18:19→20:53)
--- NOTE | 2019-06-13 18:23 | XR ---
EXAMINATION TYPE: XR chest 2V DATE OF EXAM: 06/13/2019 COMPARISON: 06/08/2019, CT chest 06/09/2019 INDICATION: Difficulty breathing history of COPD TECHNIQUE: Frontal and lateral views of the chest are obtained. FINDINGS: The heart size is normal. The pulmonary vasculature is normal. There is a cavitary lesion with a possible air-fluid level in the right upper lobe. Suspicious infil trates are not otherwise evident. Right costophrenic angle is collimated out of the [id number]. IMPRESSION: 1. 2.5 cm Cavitary lesion right upper lobe.
--- NOTE | 2019-06-13 19:56 | CT ---
CT CHEST FOR PULMONARY EMBOLISM. EXAMINATION TYPE: CT chest angio for PE DATE OF EXAM: 06/13/2019 INDICATION: Shortness of breath. Recent PE. CT DLP: 375.9 mGycm, Automated exposure control for dose reduction was used. CONTRAST: Patient injected with 76ml mL of Isovue 370. COMPARISON: 12/12/2018, 06/09/2019 TECHNIQUE: CT of the chest is performed on a spiral scan at 2 mm thick sections. Study is performed with intravenous contrast timed for evaluation for pulmonary embolism. This will limit additional po rtions of the evaluation. 3-D MIP images reconstructed by the technologist are reviewed on the compu ter in the coronal and sagittal planes. FINDINGS: There is a filling defect crossing the bifurcation of the main pulmonary artery into right and left p ulmonary vessels. This extends into the lingular artery and into the right lower lobe. Finding was pr esent previously. No right heart strain is evident. No mediastinal or hilar adenopathy enlarged by CT criteria is evident. The ascending aorta diameter at the level of the main pulmonary artery is 3.1 cm. The main pulmonary artery diameter at the bifur cation is 2.8 cm. Minimal right pleural effusion may be present. There is a cavitary lesion in the posterior right uppe r lobe measuring 3.45 cm an air-fluid level. This is a new finding. Advanced stable Emphysematous changes are evident. Limited CT section through the upper abdomen are unremarkable. IMPRESSIONS: 1. Pulmonary embolism compatible with saddle embolism at the main pulmonary artery bifurcation. This was present on the most recent chest CT comparison. 2. Cavitary lesion posterior right upper lung field with an air-fluid level, new from November 2018. 3. Advanced emphysematous changes 4. Report was called to emergency room physician Dr Cain by Dr. Gomez by telephone at time of inte rpretation 1950 hours .
[2019-06-13] MEDS ORDERED: methylPREDNISolone SOD SUCCI 125 MG/2 ML VIAL IV STA (21:23)
[2019-06-13] MEDS ORDERED: NALOXONE 0.4 MG/ML 1 ML VIAL IV PRN (21:23)
[2019-06-13] MEDS ORDERED: MAGNESIUM SULFATE-D5W PMX 1 GM in DEXTROSE/WATER 1 100ML.BAG IVPB ONE (21:23)
[2019-06-13] MEDS ORDERED: valACYclovir HCL 1,000 MG TABLET PO SCH (22:00)
[2019-06-13 22:37] VITALS: BMI 24.0
[2019-06-13] MEDS: GABAPENTIN 400 MG CAP PO PRN (22:45)
[2019-06-14] MEDS ORDERED: IPRATROPIUM-ALBUTEROL 3 ML NEB INHALATION SCH
[2019-06-14] MEDS: IPRATROPIUM-ALBUTEROL 3 ML NEB INHALATION PRN ×3 (00:44→23:34)
[2019-06-14 06:57] LABS: HCT 38.8 % (39.0-53.0); HGB 13.2 gm/dL (13.0-17.5); MCH 33.6 pg (25.0-35.0); MCV 98.8 fL (80.0-100.0); Macrocytosis Slight; Mean Platelet Volume 5.6; Platelet Count 319 k/uL (150-450); RBC 3.93 m/uL (4.30-5.90); RDW 15.1 % (11.5-15.5); WBC 10.4 k/uL (3.8-10.6)
[2019-06-14 08:07] LABS: Prothrombin Time 19.7 sec (9.0-12.0)
[2019-06-14] MEDS: AMOXIC-POT CLAV 875-125MG 1 EACH TAB PO SCH ×2 (08:16→20:50)
[2019-06-14] MEDS: ENOXAPARIN 80 MG/0.8 ML SYRINGE SQ SCH ×2 (08:16→21:14)
[2019-06-14] MEDS: amLODIPine 10 MG TAB PO SCH (08:16)
[2019-06-14] MEDS: ESCITALOPRAM 10 MG TAB PO SCH (08:16)
[2019-06-14] MEDS: FAMOTIDINE 20 MG TAB PO SCH (08:16)
[2019-06-14] MEDS: ITRACONAZOLE 100 MG CAP PO SCH (08:16)
[2019-06-14] MEDS: NICOTINE 14MG/24HR PATCH TRANSDERM SCH (08:16)
[2019-06-14] MEDS: GABAPENTIN 400 MG CAP PO PRN ×3 (08:16→20:51)
[2019-06-14] MEDS: guaiFENesin SYRUP 100MG/5ML 200 MG/10 ML CUP PO PRN ×3 (08:17→21:56)
[2019-06-14] MEDS: IPRATROPIUM-ALBUTEROL 3 ML NEB INHALATION SCH ×4 (08:28→19:31)
[2019-06-14] MEDS ORDERED: KETOROLAC 30 MG/ML 1 ML VIAL IVP SCH (12:00)
--- NOTE | 2019-06-14 12:27 | P.CNPUL ---
History of Present Illness Consult date: 06/14/19 Reason for consult: dyspnea, COPD Chief complaint: Shortness of breath History of present illness: This is a 59-year-old white male with history of recently diagnosed thromboembolic disease/pulmonary embolism, history of severe underlying COPD, and history of right upper lobe fungal pneumonia maintained on Sporanox. Nayla silveira was just in the hospital a few days ago, and he was discharged on Coumadin and Lovenox, the purpose of the Lovenox was to use it as a bridge until his Coumadin becomes therapeutic. Patient is again in the hospital as usual complaining of increased shortness of breath on exertion. His primary care physician is refusing to give him Xanax for his anxiety. And he feels is best to come to the hospital for further evaluation. Again his symptoms are chronic, and they are related to severe COPD, right upper lobe fungal pneumonia, and recently diagnosed thromboembolic disease/pulmonary embolism/saddle embolus involving the main pulmonary artery. Patient denies any hemoptysis, denies any fever no chills, denies any chest pain. Review of Systems Constitutional: Denies chills, Denies fever Eyes: denies blurred vision, denies pain Ears, nose, mouth and throat: Denies headache, Denies sore throat Cardiovascular: Reports chest pain, Denies shortness of breath Respiratory: Reports cough, Reports dyspnea Gastrointestinal: Denies abdominal pain, Denies diarrhea, Denies nausea, Denies vomiting Musculoskeletal: Denies myalgias Integumentary: Denies pruritus, Denies rash Neurological: Denies numbness, Denies weakness Psychiatric: Denies anxiety, Denies depression Endocrine: Denies fatigue, Denies weight change Past Medical History Past Medical History: Chest Pain / Angina, COPD, CVA/TIA, Hypertension, Myocardial Infarction ([place]), Pneumonia, Respiratory Disorder, Skin Disorder Additional Past Medical History / Comment(s): 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 Last Myocardial Infarction Date:: unknown History of Any Multi-Drug Resistant Organisms: None Reported Past Surgical History: Orthopedic Surgery Additional Past Surgical History / Comment(s): metal plate left hand middle finger, right eye enucleation. Past Anesthesia/Blood Transfusion Reactions: No Reported Reaction Past Psychological History: Anxiety, Depression, Panic Disorder Additional Psychological History / Comment(s): Lives in apartment, 17 steps to climb.Has a nebulizer/oxygen. 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 Smoking Status: Former smoker Past Alcohol Use History: Occasional Additional Past Alcohol Use History / Comment(s): STARTED SMOKING 1975 08 PPD- QUIT 6 MONTHS AGO, PT STATED HE DRINKS 2 BEER a day Past Drug Use History: Marijuana Additional Drug Use History / Comment(s): Pt states he uses marajuana at times. - Past Family History Mother Family Medical History: Cancer Additional Family Medical History / Comment(s): Pt believes his Mom of Kidney Cancer Father Family Medical History: Cancer, COPD, Respiratory Disorder Additional Family Medical History / Comment(s): Melanoma Medications and Allergies Home Medications Medication Instructions Recorded Confirmed Type Melatonin 5 mg PO HS 11/14/18 06/13/19 History Montelukast [Singulair] 10 mg PO HS #30 tab 11/17/18 06/13/19 Rx Fluticasone/Salmeterol 1 puff INHALATION RT-BID 04/29/19 06/13/19 History [Fluticasone-Salmeterol 232-14] Gabapentin 800 mg PO Q6H PRN 04/29/19 06/13/19 History amLODIPine [Norvasc] 10 mg PO DAILY 04/29/19 06/13/19 History Albuterol Inhaler [Ventolin Hfa 1 - 2 puff INHALATION RT-Q6H PRN 05/11/19 06/13/19 History Inhaler] Escitalopram [Lexapro] 10 mg PO DAILY #15 tab 05/15/19 06/13/19 Rx guaiFENesin SYRUP 100MG/5ML 200 mg PO Q6H PRN #1 bottle 05/15/19 06/13/19 Rx [Robitussin] Famotidine [Pepcid AC] 10 mg PO DAILY 10/17/19 10/26/19 History Nicotine 14Mg/24Hr Patch [Habitrol] 1 patch TRANSDERM DAILY 06/04/19 06/13/19 History Enoxaparin [Lovenox] 80 mg SQ Q12HR 5 Days #10 syringe 06/11/19 06/13/19 Rx Warfarin [Coumadin] 5 mg PO DAILY #20 tab 06/11/19 06/13/19 Rx Amoxic-Pot Clav 875-125Mg 1 tab PO Q12HR 06/13/19 06/13/19 History [Augmentin 875-125] Ipratropium-Albuterol Nebulize 3 ml INHALATION RT-QID 06/13/19 06/13/19 History [Duoneb 0.5 mg-3 mg/3 ml Soln] Itraconazole [Sporanox] 200 mg PO DAILY 06/13/19 06/13/19 History predniSONE See Taper PO DAILY 06/13/19 06/13/19 History Allergies Allergy/AdvReac Type Severity Reaction Status Date / Time peanut [Peanut Butter] AdvReac Nausea & Verified 06/13/19 17:48 Vomiting & Diarrhea Physical Exam Vitals: Vital Signs Temp Pulse Pulse Resp BP BP Pulse Ox 06/14/19 12:00 97.6 F 102 H 16 133/75 98 06/14/19 11:45 92 06/14/19 08:40 88 06/14/19 08:30 80 06/14/19 08:00 97.8 F 100 20 137/72 96 06/14/19 04:46 80 06/14/19 04:36 80 06/14/19 04:09 20 06/14/19 00:55 92 06/14/19 00:44 98 97 06/14/19 00:00 20 06/13/19 22:25 98.2 F 93 22 122/87 98 06/13/19 21:21 97 06/13/19 21:08 98 06/13/19 19:18 100 06/13/19 19:07 98 06/13/19 18:14 98 15 137/80 97 06/13/19 18:00 98 15 137/80 97 06/13/19 17:30 100 14 134/87 97 06/13/19 17:18 101 H 18 06/13/19 17:10 98.8 F 100 18 134/87 95 Intake and Output 06/13/19 06/14/19 06/14/19 22:59 06:59 14:59 Intake Total 476 Balance 476 Intake: Oral 476 Other: Voiding Method Toilet Toilet Weight 73.936 kg 74.3 kg GENERAL EXAM: Alert, pleasant, 58-year-old white male, on 2 L of oxygen with a pulse ox of 95% comfortable in no apparent distress. HEAD: Normocephalic/atraumatic. EYES: Normal reaction of pupils, equal size in the left eye, patient has a prosthetic right eye. Conjunctiva pink, sclera white. NOSE: Clear with pink turbinates. THROAT: No erythema or exudates. NECK: No masses, no JVD, no thyroid enlargement, no adenopathy. CHEST: No chest wall deformity. Symmetrical expansion. LUNGS: Equal air entry with no crackles, wheeze, rhonchi or dullness. Congestive cough CVS: Regular rate and rhythm, normal S1 and S2, no gallops, no murmurs, no rubs ABDOMEN: Soft, nontender. No hepatosplenomegaly, normal bowel sounds, no guarding or rigidity. EXTREMITIES: No clubbing, no edema, no cyanosis, 2+ pulses and upper and lower extremities. MUSCULOSKELETAL: Muscle strength and tone normal. SPINE: No scoliosis or deformity SKIN: No rashes CENTRAL NERVOUS SYSTEM: Alert and oriented -3. No focal deficits, tone is normal in all 4 extremities. PSYCHIATRIC: Alert and oriented -3. Appropriate affect. Intact judgment and insight. Results - Laboratory Findings CBC and BMP: 06/14/19 05:20 06/13/19 17:25 PT/INR, D-dimer PT 19.7 sec (9.0-12.0) H 06/14/19 07:16 INR 2.0 (<1.2) H 06/14/19 07:16 Abnormal lab findings: Abnormal Labs 06/13/19 06/13/19 06/13/19 17:25 17:25 17:25 WBC 14.6 H RBC 4.17 L Hct Neutrophils # 12.8 H Lymphocytes # 0.6 L Basophils # 0.4 H PT 12.9 H INR 1.3 H Creatinine 0.56 L Glucose 138 H Total Protein 6.2 L 06/14/19 06/14/19 05:20 07:16 WBC RBC 3.93 L Hct 38.8 L Neutrophils # Lymphocytes # Basophils # PT 19.7 H INR 2.0 H Creatinine Glucose Total Protein - Diagnostic Findings CT scan - chest: image reviewed (CT of the chest is basically unchanged compared to his most recent CT of the chest showing right upper lobe cavitary lesion and pulmonary embolism/saddle embolus.) Assessment and Plan Assessment: #1. Nonocclusive saddle emboli, an incidental finding on the CT chest with contrast performed for the investigation of the right upper lobe cavitary lesion, and the embolus extends into the left upper lobe branch and throughout the right-sided lobar branches and segmental branches of the right lower lobe, without CT evidence of right heart strain at this time #2. Fungal pneumonia in the right upper lobe, unchanged from the last CT of the chest #2. Recent herpes zoster rash, and the rash is dry #3. History of severe oxygen-dependent chronic obstructive pulmonary disease with the baseline FEV1 of 36% of predicted #4. Former smoker, currently in remission #5. History of present CVA involving the basal ganglia in October 2014 #6. 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 #7. Diabetes with this type II #8. GERD/reflux #9. History of coronary artery disease with previous WI Recommendation: I fully agree with the present treatment plan, not much to be added from our perspective, patient will need close follow-up on outpatient basis, and I believe the patient would benefit more from anxiolytic medications along with his anticoagulation therapy, bronchodilators, and antifungal therapy. We'll continue to follow. Patient will likely be cleared to be discharged home in the next 24 hours. Time with Patient: Greater than 30
[2019-06-14] MEDS: FLUTICASONE INHALATION SCH ×2 (12:55→21:43)
[2019-06-14] MEDS: SALMETEROL INHALATION SCH ×2 (12:55→21:43)
[2019-06-14] MEDS ORDERED: WARFARIN 5 MG TAB PO SCH (18:30)
[2019-06-14] MEDS ORDERED: MONTELUKAST 10 MG TAB PO SCH (21:00)
[2019-06-14 23:40] VITALS: RESP 18
[2019-06-14] MEDS ORDERED: MELATONIN 5 MG TABLET PO PRN (23:46)
[2019-06-15] MEDS: IPRATROPIUM-ALBUTEROL 3 ML NEB INHALATION PRN (03:46)
[2019-06-15] MEDS: IPRATROPIUM-ALBUTEROL 3 ML NEB INHALATION SCH ×3 (09:12→16:57)
[2019-06-15] MEDS: ITRACONAZOLE 100 MG CAP PO SCH (09:20)
[2019-06-15] MEDS: NICOTINE 14MG/24HR PATCH TRANSDERM SCH (09:20)
[2019-06-15] MEDS: ESCITALOPRAM 10 MG TAB PO SCH (09:20)
[2019-06-15] MEDS: AMOXIC-POT CLAV 875-125MG 1 EACH TAB PO SCH (09:21)
[2019-06-15] MEDS: FAMOTIDINE 20 MG TAB PO SCH (09:21)
[2019-06-15] MEDS: ENOXAPARIN 80 MG/0.8 ML SYRINGE SQ SCH (09:21)
[2019-06-15] MEDS: amLODIPine 10 MG TAB PO SCH (09:21)
[2019-06-15] MEDS: FLUTICASONE INHALATION SCH (09:23)
[2019-06-15] MEDS: SALMETEROL INHALATION SCH (09:23)
[2019-06-15] MEDS: guaiFENesin SYRUP 100MG/5ML 200 MG/10 ML CUP PO PRN (09:30)
[2019-06-15 11:21] LABS: Prothrombin Time 38.9 sec (9.0-12.0)
--- NOTE | 2019-06-15 13:04 | PN ---
PROGRESS NOTE DATE OF SERVICE: 06/15/2019 This is a 59-year-old male who was admitted on June 13. He was recently in the hospital and diagnosed with both a cavitary lesion right upper lobe, thought to be an aspergilloma as well as incidental finding of pulmonary embolism. The patient was discharged home on Sporanox for his right upper lobe aspergilloma and also discharged home on Coumadin with Lovenox bridge. The patient was readmitted to the hospital because he was feeling anxious and was short of breath. The patient apparently went to see his primary doctor who is Dr. Gatica and apparently asked for some Xanax, but the doctor refused to give him Xanax. For that reason, because of anxiety induced difficulty breathing, the patient was seen in the emergency room and readmitted to the hospital. The finding of the saddle embolus was incidental. Anyway, the patient denies being more short of breath than usual. Denies cough or phlegm production. Denies any wheezing. Not coughing up any phlegm or blood. No fever, chills, chest pain, chest discomfort, nausea, vomiting, diarrhea, or any genitourinary complaints. He is wearing oxygen therapy. His previous INR was 2. His most recent INR was 4. Current vital signs are reviewed. Temperature 98, heart rate 90, respiratory rate 18, blood pressure 144/75 mean 98, 2 L saturation 95%. Appears in no acute distress. HEENT: Examination is grossly unremarkable. Mucous membranes are moist. No oral lesions. NECK: Supple. Full range of motion. No adenopathy or thyromegaly. Neck veins are flat. CARDIOVASCULAR: Examination reveals regular rhythm and rate. Heart rate 92. S1, S2 normal. No S3, S4, or murmur. LUNGS: Reveal mostly clear but diminished breath sounds. No adventitious lung sounds. No rhonchi, wheezes, or crackles. ABDOMEN: Soft. Bowel sounds are heard. EXTREMITIES: Intact. There is no cyanosis, clubbing, or edema. SKIN: Without rash. NEUROLOGIC: Examination is brief but nonfocal. From today, his PT is 38.9, INR is 4. From yesterday, PT was 19.7, INR was 2. His Lovenox can be discontinued. The CT angiogram that was done again shows pulmonary embolism compatible with nonocclusive/nonobstructive saddle embolism. In addition, a cavitary lesion in the posterior right upper lobe consistent with aspergilloma. Finally, there was evidence of advanced emphysematous changes. Medications are reviewed. ASSESSMENT: 1. Nonocclusive saddle embolism, seen on CT angiogram x2, currently on Lovenox/Coumadin and currently over anticoagulated. 2. Aspergilloma, right upper lobe. 3. Recent herpes zoster rash. 4. Severe oxygen-dependent chronic obstructive pulmonary disease with an FEV1 at 36% of predicted/stage III chronic obstructive pulmonary disease. 5. Former tobacco user. 6. History of cerebrovascular accident. 7. Right eye blindness, status post prosthesis. 8. Diabetes, type 2. 9. Gastroesophageal reflux disease. 10.History of coronary artery disease with previous myocardial infarction. PLAN: Currently, the patient seems to be relatively stable. His Lovenox could be discontinued. I would hold his Coumadin tonight. Repeat PT, INR in the morning. Make a decision about discharge in the next 24-48 hours. The patient should follow up with his primary doctor. He feels like a lot of his issues related to anxiety. That is really a discussion to have with his primary care provider. MMODL / IJN: [id number] /
[2019-06-15 13:15] VITALS: BP 134/69; TEMP 98.1
[2019-06-15 13:21] VITALS: PULSE 96
--- NOTE | 2019-06-15 17:31 | HP ---
HISTORY AND PHYSICAL DATE OF SERVICE: 06/14/2019 CHIEF COMPLAINT: Shortness of breath. HISTORY OF PRESENT ILLNESS: This 59-year-old gentleman with a past medical history of multiple medical problems, including recent fungal pneumonia, right upper lobe cavitary, history of saddle pulmonary embolism, COPD, history of myocardial infarction, history of right upper lobe consolidation, anxiety, depression, panic disorder, being followed by Dr. Romero in the outpatient setting, was recently in the hospital with multiple complications. Patient went home. Patient is currently complaining of shortness of breath. The patient was unable to breathe, according to him, and the patient came to [facility] and was admitted for further evaluation and treatment. CT scan confirmed cavitary lesion as well as pulmonary embolism. The patient is being closely monitored at this time. Pulmonary and cardiology consultations are in progress. There is no history of any fever, rigor or chills. No history of headache, loss of consciousness, seizures. PAST MEDICAL HISTORY: 1. History of COPD. 2. CVA. 3. Hypertension. 4. Myocardial infarction. 5. History of cavitary pneumonia. 6. History of saddle pulmonary embolism. MEDICATIONS: 1. Sporanox 200 mg p.o. daily. 2. Singulair 10 mg at bedtime. 3. Prednisone taper. 4. Robitussin 200 mg q.6 p.r.n. 5. Norvasc 10 mg p.o. daily. 6. Coumadin 5 mg p.o. daily. 7. Habitrol 14 daily. 8. Melatonin 5 mg p.o. at bedtime. 9. DuoNeb q.i.d. 10.Gabapentin 800 mg q.6 p.r.n. 11.Fluticasone/salmeterol 1 puff b.i.d. 12.Pepcid AC 10 mg p.o. daily. 13.Lexapro 10 mg p.o. daily. 14.Augmentin 1 tablet p.o. b.i.d. 15.Ventolin HFA 1-2 puffs q.6 p.r.n. 16.Prednisone 10 mg p.r.n. 17.Xanax 0.25 t.i.d. p.r.n. ALLERGIES: PEANUTS. FAMILY HISTORY: History of cancer in the family. SOCIAL HISTORY: Previous history of nicotine dependence. History of THC. History of alcohol. REVIEW OF SYSTEMS: ENT: No diminished hearing. No diminished vision. CARDIOVASCULAR SYSTEM: No angina, palpitations. RESPIRATORY SYSTEM: As mentioned earlier. GI: No nausea, vomiting. : No dysuria or retention. NERVOUS SYSTEM: No numbness, weakness. ALLERGY/IMMUNOLOGY: No asthma, hayfever. MUSCULOSKELETAL: As mentioned earlier. HEMATOLOGY/ONCOLOGY: As mentioned earlier. ENDOCRINE: As mentioned earlier. CONSTITUTIONAL: As mentioned earlier. DERMATOLOGY: Negative. RHEUMATOLOGY: Negative. PSYCHIATRY: As mentioned earlier. PHYSICAL EXAMINATION: Patient is alert and oriented x3. Pulse 94, blood pressure 134/69, respirations 16, temperature 98.0, pulse ox 97% on 2 L. HEENT: Conjunctivae normal. Oral mucosa moist. NECK: No jugular venous distention. No carotid bruit. No lymph node enlargement. CARDIOVASCULAR SYSTEM: S1, S2 muffled. No S3. No S4. RESPIRATORY SYSTEM: Breath sounds diminished at the bases. Breathing efforts are mildly increased. Bilateral scattered rhonchi and crackles. Expiratory wheezing also present. ABDOMEN: Soft, non-tender. No mass palpable. LEGS: No edema. No swelling. NERVOUS SYSTEM: Higher functions as mentioned earlier. Moves all 4 limbs. No focal motor or sensory deficit. LYMPHATICS: No lymph node palpable in neck, axillae or groin. SKIN: No ulcer, rash, bleeding. JOINTS: No active deforming arthropathy. LABS: Labs at this time show WBC 14.6, hemoglobin 14. Other labs are noted. ASSESSMENT: 1. Shortness of breath for evaluation; possible chronic obstructive pulmonary disease, acute exacerbation. 2. Recent saddle embolism. 3. Right upper lobe cavitary pneumonia, aspergillus, fungal pneumonia. 4. Increased white count. 5. History of chronic obstructive pulmonary disease. 6. Cerebrovascular accident, transient ischemic attack. 7. Hypertension. 8. History of myocardial infarction. 9. History of chronic hypoxic respiratory failure. 10.Anxiety, depression, panic disorder. RECOMMENDATIONS AND DISCUSSION: I recommend to continue current medications, continue with the monitoring, symptomatic treatment. Continue with the bronchodilators, antibiotics, steroids. Closely follow with Pulmonary. Guarded prognosis because of multiple complex medical issues. Xanax for anxiety. Further recommendations to follow. MMODL / IJN: [id number] /
--- NOTE | 2019-06-15 23:24 | DS ---
DISCHARGE SUMMARY DATE OF SERVICE: 06/15/2019. FINAL DIAGNOSES: 1. Chronic obstructive pulmonary disease acute exacerbation with acute purulent tracheobronchitis. 2. History of recent cell pulmonary embolism. 3. Right upper lobe cavitary pneumonia with Aspergillus on Sporanox. 4. Cerebrovascular accident/transient ischemic attack. 5. Hypertension. 6. History of myocardial infarction. 7. History of pneumonia. 8. History of chronic hypoxic respiratory failure on 2 L nasal cannula oxygen. 9. History of degenerative joint disease. 10.Anxiety, depression panic disorder. 11.Previous history of nicotine dependence. DISCHARGE DISPOSITION: The patient is being discharged in stable condition. Guarded prognosis. Dr. Ortega from pulmonary cleared the patient. HISTORY OF PRESENT ILLNESS: This is a 59-year-old gentleman with past medical history of multiple medical problems admitted with shortness of breath, anxiety, and multiple other medical issues. Patient treated symptomatically with bronchodilators. The patient improved significantly. PHYSICAL EXAMINATION: On exam, vitals are stable. Cardio is normal. ABDOMEN: Soft. NERVOUS SYSTEM: No focal deficits. DISCHARGE ADVICE AND MEDICATION: 1. Diet is cardiac diet. 2. Activity limited until followup. 3. Follow up with Dr. Urszula Carrasco in 2-3 days. 4. Follow up with [facility] as recommended. DISCHARGE MEDICATIONS: 1. Augmentin is 875 mg p.o. b.i.d. 2. DuoNeb q.i.d. and p.r.n. 3. Fluticasone salmeterol 1 puff b.i.d. 4. Gabapentin 800 mg q.6h. 5. Habitrol 14. 6. Melatonin 5 mg q.h.s. 7. Norvasc 10 mg p.o. 8. Pepcid AC 10 mg. 9. Prednisone taper. 10.Sporanox 200 mg p.o. daily. 11.Albuterol 2 puffs q.6h p.r.n. 12.Coumadin 5 mg p.o. Lexapro 10 mg p.o. daily. 13.Melatonin 5 mg q.h.s. p.r.n. 14.Prednisone taper 40 mg daily for 3 days, 30 for 3 days, 20 for 3 days. 10 for 3 days, then stop. 15.Robitussin 200 mg p.r.n. 16.Singulair 10 mg q.h.s. 17.Xanax 0.25 mg t.i.d. p.r.n. Once again the patient is being discharged in stable condition with guarded prognosis. MMROROL / HANSAN: [id number] /
== END 2019-06-15 16:34 | disposition home health service (06) | DRG 175 ==
LOC: EC 17:08 → 3SCARD 21:27
PROVIDERS: ADMIT Internal Medicine; ATTEND Internal Medicine
DX: I26.92 Saddle embolus of pulmonary artery without acute cor pulmonale (principal); J16.8 Pneumonia due to other specified infectious organisms; J96.11 Chronic respiratory failure with hypoxia; B44.9 Aspergillosis, unspecified; B02.9 Zoster without complications; E11.9 Type 2 diabetes mellitus without complications; F32.9 Major depressive disorder, single episode, unspecified; F41.0 Panic disorder [episodic paroxysmal anxiety]; H54.61 Unqualified visual loss, right eye, normal vision left eye; I10 Essential (primary) hypertension; I25.10 Atherosclerotic heart disease of native coronary artery without angina pectoris; I25.2 Old myocardial infarction; J05.0 Acute obstructive laryngitis [croup]; K21.9 Gastro-esophageal reflux disease without esophagitis; L30.9 Dermatitis, unspecified; Z79.01 Long term (current) use of anticoagulants; Z79.899 Other long term (current) drug therapy; Z80.51 Family history of malignant neoplasm of kidney; Z80.8 Family history of malignant neoplasm of other organs or systems; Z82.5 Family history of asthma and other chronic lower respiratory diseases; Z86.711 Personal history of pulmonary embolism; Z86.73 Personal history of transient ischemic attack (TIA), and cerebral infarction without residual deficits; Z87.01 Personal history of pneumonia (recurrent); Z87.891 Personal history of nicotine dependence; Z99.81 Dependence on supplemental oxygen; J43.9 Emphysema, unspecified
CPT/HCPCS: 36415; 71046; 71275; 80053; 83735; 83880; 84484; 85025; 85027; 85610; 85730; 93005; 94640; 94760; 99285

== ENCOUNTER 2019-06-18 11:48 | Inpatient (IN) | payer OTHER ==
[2019-06-18] MEDS ORDERED: PIPERACILLIN-TAZOBACTAM 3.375 GM in SODIUM CHLORIDE 0.9% 100 ML IVPB STA (11:59)
[2019-06-18] MEDS ORDERED: IBUPROFEN 600 MG TAB PO STA (11:59)
[2019-06-18] MEDS ORDERED: ACETAMINOPHEN TAB 500 MG TAB PO STA (11:59)
--- NOTE | 2019-06-18 12:09 | ED ---
General Adult HPI - General Stated complaint: Fall Time Seen by Provider: 06/18/19 11:48 Source: RN notes reviewed - History of Present Illness Initial comments: This is a 59-year-old male who has a past medical history significant for multiple MIs as well as strokes. Patient also states he lost his right eye secondary to shingles. Patient also states recently he was diagnosed with pneumonia and then subsequent to that diagnosed with a pulmonary embolism for which she is on Coumadin. Patient states last night he became very weak and that weakness continued today to the point where he was very unstable on his feet and collapsed before on one occasion and he decided come to be seen in emergency department. Patient states he needs surgery on his left shoulder and after the fall that did hurt a little more than normal. Patient states he is able to move all 4 extremities normally currently but his left shoulder does hurt a little more in his left hurt her hip hurts. Patient denies any chest pain palpitations. Patient denies shortness of breath he does complain of a cough. Patient denies headache patient denies numbness or focal weakness. Patient states he is still smoking - Related Data Home Medications Medication Instructions Recorded Confirmed Melatonin 5 mg PO HS 11/14/18 06/18/19 Fluticasone/Salmeterol 1 puff INHALATION RT-BID 04/29/19 06/18/19 [Fluticasone-Salmeterol 232-14] Gabapentin 800 mg PO Q6H PRN 04/29/19 06/18/19 amLODIPine [Norvasc] 10 mg PO DAILY 04/29/19 06/18/19 Albuterol Inhaler [Ventolin Hfa 1 - 2 puff INHALATION RT-Q6H PRN 05/11/19 06/18/19 Inhaler] Famotidine [Pepcid AC] 10 mg PO DAILY 06/04/19 06/18/19 Nicotine 14Mg/24Hr Patch [Habitrol] 1 patch TRANSDERM DAILY 06/04/19 06/18/19 Amoxic-Pot Clav 875-125Mg 1 tab PO Q12HR 06/13/19 06/18/19 [Augmentin 875-125] Ipratropium-Albuterol Nebulize 3 ml INHALATION RT-QID 06/13/19 06/18/19 [Duoneb 0.5 mg-3 mg/3 ml Soln] Itraconazole [Sporanox] 200 mg PO DAILY 06/13/19 06/18/19 predniSONE See Taper PO DIRECTED 06/18/19 06/18/19 Previous Rx's Medication Instructions Recorded Montelukast [Singulair] 10 mg PO HS #30 tab 11/17/18 Escitalopram [Lexapro] 10 mg PO DAILY #15 tab 05/15/19 Warfarin [Coumadin] 5 mg PO DAILY #20 tab 06/11/19 ALPRAZolam [Xanax] 0.25 mg PO TID PRN #30 tab 06/15/19 Allergies Allergy/AdvReac Type Severity Reaction Status Date / Time peanut [Peanut Butter] AdvReac Nausea & Verified 06/18/19 12:54 Vomiting & Diarrhea Review of Systems ROS Statement: Those systems with pertinent positive or pertinent negative responses have been documented in the HPI. ROS Other: All systems not noted in ROS Statement are negative. 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 Last Myocardial Infarction Date:: unknown History of Any Multi-Drug Resistant Organisms: None Reported Past Surgical History: Orthopedic Surgery Additional Past Surgical History / Comment(s): metal plate left hand middle finger, right eye enucleation. Past Anesthesia/Blood Transfusion Reactions: No Reported Reaction Additional Drug Use History / Comment(s): Pt states he uses marajuana at times. - Past Family History Mother Family Medical History: Cancer Additional Family Medical History / Comment(s): Pt believes his Mom of Kidney Cancer Father Family Medical History: Cancer, COPD, Respiratory Disorder Additional Family Medical History / Comment(s): Melanoma General Exam - General Exam Comments Initial Comments: GENERAL: Patient is well-developed and well-nourished. Patient is nontoxic and well- hydrated and is in mild distress. ENT: Neck is soft and supple. No significant lymphadenopathy is noted. Oropharynx is clear. Moist mucous membranes. Neck has full range of motion without eliciting any pain. EYES: The sclera were anicteric and conjunctiva were pink and moist. Extraocular movements were intact and pupils were equal round and reactive to light. Eyelids were unremarkable. PULMONARY: Expiratory wheezing with diminished breath sounds. CARDIOVASCULAR: There is a regular rate and rhythm without any murmurs gallops or rubs. ABDOMEN: Soft and nontender with normal bowel sounds. SKIN: Skin is clear with no lesions or rashes and otherwise unremarkable. NEUROLOGIC: Patient is alert and oriented x3. Cranial nerves II through XII are grossly intact. Motor and sensory are also intact. Normal speech, volume and content. Symmetrical smile. MUSCULOSKELETAL: Normal extremities with adequate strength and full range of motion. Patient has some lateral tenderness to the left hip but did have full range of motion. Patient also had some anterior shoulder pain on the left but again had what he stated was his normal range of motion. LYMPHATICS: No significant lymphadenopathy is noted PSYCHIATRIC: Normal psychiatric evaluation. Course Vital Signs 06/18/19 06/18/19 11:51 12:18 Temperature 101.3 F H 101.3 F H Pulse Rate 114 H 114 H Respiratory 18 18 Rate Blood Pressure 125/88 125/88 O2 Sat by Pulse 93 L 93 L Oximetry Medical Decision Making - Medical Decision Making I discussed smoking cessation for greater than 3 minutes. The risks of smoking were discussed with the patient including but not limited to risks of cancer, stroke, coronary artery disease and COPD. Also discussed with the patient were multiple methods of quitting smoking. Lastly we discussed the financial costs of smoking. EKG shows sinus tachycardia at 114 bpm NJ interval 120 QRS 76 QT interval 310 QTC is 427. Patient's EKG shows no ST segment elevation or depression. Patient's chest x-ray showed an infiltrate right upper lobe which is consistent with previous x-rays and a known infection of Aspergillus. Patient has no new infiltrate that I can see. Patient did come in with 101.3 fever so he will be admitted he also is wheezing and gave the patient and treatment emergency department as well as Solu-Medrol he will also have that continued on the floor. I spoke with Dr. Cano he agreed to admit the patient admitted the patient I consult pulmonary. Patient was given Zosyn in the ER and hydrated in the ER. - Lab Data Result diagrams: 06/18/19 12:20 06/18/19 12:20 Lab Results 06/18/19 06/18/19 06/18/19 Range/Units 12:20 12:20 12:20 WBC 18.2 H (3.8-10.6) k/uL RBC 4.47 (4.30-5.90) m/uL Hgb 14.6 (13.0-17.5) gm/dL Hct 44.1 (39.0-53.0) % MCV 98.7 (80.0-100.0) fL MCH 32.6 (25.0-35.0) pg MCHC 33.1 (31.0-37.0) g/dL RDW 15.4 (11.5-15.5) % Plt Count 223 (150-450) k/uL Neutrophils % 90 % Lymphocytes % 4 % Monocytes % 3 % Eosinophils % 0 % Basophils % 2 % Neutrophils # 16.3 H (1.3-7.7) k/uL Lymphocytes # 0.7 L (1.0-4.8) k/uL Monocytes # 0.6 (0-1.0) k/uL Eosinophils # 0.1 (0-0.7) k/uL Basophils # 0.4 H (0-0.2) k/uL Macrocytosis Slight PT (9.0-12.0) sec INR (<1.2) APTT (22.0-30.0) sec Sodium 131 L (137-145) mmol/L Potassium 4.2 (3.5-5.1) mmol/L Chloride 97 L (98-107) mmol/L Carbon Dioxide 23 (22-30) mmol/L Anion Gap 11 mmol/L BUN 31 H (9-20) mg/dL Creatinine 0.70 (0.66-1.25) mg/dL Est GFR (CKD-EPI)AfAm >90 (>60 ml/min/1.73 sqM) Est GFR (CKD-EPI)NonAf >90 (>60 ml/min/1.73 sqM) Glucose 90 (74-99) mg/dL Plasma Lactic Acid Gray (0.7-2.0) mmol/L Calcium 9.2 (8.4-10.2) mg/dL Total Bilirubin 0.7 (0.2-1.3) mg/dL AST 27 (17-59) U/L ALT 72 (21-72) U/L Alkaline Phosphatase 53 (38-126) U/L Troponin I (0.000-0.034) ng/mL Total Protein 6.3 (6.3-8.2) g/dL Albumin 3.7 (3.5-5.0) g/dL Influenza Type A RNA Not Detected (Not Detectd) Influenza Type B (PCR) Not Detected (Not Detectd) 06/18/19 06/18/19 06/18/19 Range/Units 12:20 12:20 12:20 WBC (3.8-10.6) k/uL RBC (4.30-5.90) m/uL Hgb (13.0-17.5) gm/dL Hct (39.0-53.0) % MCV (80.0-100.0) fL MCH (25.0-35.0) pg MCHC (31.0-37.0) g/dL RDW (11.5-15.5) % Plt Count (150-450) k/uL Neutrophils % % Lymphocytes % % Monocytes % % Eosinophils % % Basophils % % Neutrophils # (1.3-7.7) k/uL Lymphocytes # (1.0-4.8) k/uL Monocytes # (0-1.0) k/uL Eosinophils # (0-0.7) k/uL Basophils # (0-0.2) k/uL Macrocytosis PT 12.3 H (9.0-12.0) sec INR 1.2 H (<1.2) APTT 26.0 (22.0-30.0) sec Sodium (137-145) mmol/L Potassium (3.5-5.1) mmol/L Chloride (98-107) mmol/L Carbon Dioxide (22-30) mmol/L Anion Gap mmol/L BUN (9-20) mg/dL Creatinine (0.66-1.25) mg/dL Est GFR (CKD-EPI)AfAm (>60 ml/min/1.73 sqM) Est GFR (CKD-EPI)NonAf (>60 ml/min/1.73 sqM) Glucose (74-99) mg/dL Plasma Lactic Acid Gray 3.5 H* (0.7-2.0) mmol/L Calcium (8.4-10.2) mg/dL Total Bilirubin (0.2-1.3) mg/dL AST (17-59) U/L ALT (21-72) U/L Alkaline Phosphatase (38-126) U/L Troponin I <0.012 (0.000-0.034) ng/mL Total Protein (6.3-8.2) g/dL Albumin (3.5-5.0) g/dL Influenza Type A RNA (Not Detectd) Influenza Type B (PCR) (Not Detectd) Critical Care Time Critical Care Time: Yes Total Critical Care Time: 35 Disposition Clinical Impression: Fungal infection of lung, Sepsis, COPD exacerbation Disposition: ADMITTED IP TO THIS HOSP Referrals: Urszula Carrasco MD [Primary Care Provider] - 1-2 days Time of Disposition: 13:40
[2019-06-18] MEDS: SODIUM CHLORIDE 0.9% 500 ML 500 ML IV SCH ×2 (12:28→14:21)
[2019-06-18 12:34] LABS: Basophils # (A) 0.4 k/uL (0-0.2); Basophils % (A) 2 %; Eosinophils # (A) 0.1 k/uL (0-0.7); Eosinophils % (A) 0 %; HCT 44.1 % (39.0-53.0); HGB 14.6 gm/dL (13.0-17.5); Lymphocytes # (A) 0.7 k/uL (1.0-4.8); Lymphocytes % (A) 4 %; MCH 32.6 pg (25.0-35.0); MCHC 33.1 g/dL (31.0-37.0); MCV 98.7 fL (80.0-100.0); Macrocytosis Slight; Monocytes # (A) 0.6 k/uL (0-1.0); Monocytes % (A) 3 %; Neutrophils # (A) 16.3 k/uL (1.3-7.7); Neutrophils % (A) 90 %; Platelet Count 223 k/uL (150-450); RBC 4.47 m/uL (4.30-5.90); RDW 15.4 % (11.5-15.5); WBC 18.2 k/uL (3.8-10.6)
[2019-06-18 12:46] LABS: ALT 72 U/L (21-72); AST 27 U/L (17-59); African American GFR (CKD) >90 (>60 ml/min/1.73 sqM); Albumin 3.7 g/dL (3.5-5.0); Alkaline Phosphatase 53 U/L (38-126); Anion Gap 11 mmol/L; Blood Urea Nitrogen 31 mg/dL (9-20); Calcium 9.2 mg/dL (8.4-10.2); Carbon Dioxide 23 mmol/L (22-30); Chloride 97 mmol/L (98-107); Glucose 90 mg/dL (74-99); Potassium 4.2 mmol/L (3.5-5.1); Sodium 131 mmol/L (137-145); Total Bilirubin 0.7 mg/dL (0.2-1.3); Total Protein 6.3 g/dL (6.3-8.2)
[2019-06-18 12:51] LABS: INR 1.2 (<1.2); Prothrombin Time 12.3 sec (9.0-12.0)
--- NOTE | 2019-06-18 13:26 | XR ---
EXAMINATION TYPE: XR chest 2V DATE OF EXAM: 06/18/2019 COMPARISON: 06/13/2019 TECHNIQUE: PA and lateral views submitted. HISTORY: Fever FINDINGS: The lungs are clear and there is no pneumothorax, pleural effusion, or focal pneumonia. Hypertrophi c change of the spine. There is vague infiltrate or density in the right upper lobe adjacent chest le ad. IMPRESSION: 1. There is vague density in the right upper lobe which could represent infiltrate or pulmonary nodul e adjacent to the chest leak. Short-term follow-up chest x-ray recommended.
--- NOTE | 2019-06-18 13:27 | XR ---
EXAMINATION TYPE: XR Hip LT and AP Pelvis DATE OF EXAM: 06/18/2019 COMPARISON: NONE HISTORY: Pain TECHNIQUE: A single AP view of the pelvis is obtained. Two views of the left hip are obtained. FINDINGS: There is no acute fracture/dislocation evident in the pelvis. The hip and sacroiliac join ts appear symmetric and unremarkable. The overlying soft tissue appears unremarkable. Two views of left hip show no acute fracture or dislocation. No focal lytic or sclerotic lesion seen in the proximal left femur. The overlying soft tissue is unremarkable. Mild concentric narrowing t he joint space. Hypertrophic change of the acetabulum can be associated with femoral acetabular impin gement.*Calcifications are seen. IMPRESSION: There is no acute fracture or dislocation in the pelvis or left hip. Arthropathy, correl ate for femoral acetabular impingement.
--- NOTE | 2019-06-18 13:31 | XR ---
EXAMINATION TYPE: XR shoulder complete LT DATE OF EXAM: 06/18/2019 COMPARISON: NONE HISTORY: Pain TECHNIQUE: Three views are submitted. FINDINGS: The osseous structures are intact. There is no acute fracture or dislocation. Arthropathy of the AC joint. Diffuse osteopenia. Sclerosis involving the humeral head. Concern for a subchondral fracture. IMPRESSION: 1. Severe arthropathy diffuse osteopenia. However there is mixed sclerosis involving the upper margin of the humeral head. This is been reported by previous MRI of the left shoulder and 05/08/2019 and co uld be on the basis of either osteonecrosis or subchondral fracture.
[2019-06-18] MEDS ORDERED: IPRATROPIUM-ALBUTEROL 3 ML NEB INHALATION PRN (13:41)
[2019-06-18] MEDS ORDERED: methylPREDNISolone SOD SUCCI 125 MG/2 ML VIAL IV STA (13:41)
[2019-06-18 13:57] LABS: Appearance,Urine Clear (Clear); Bilirubin,Urine Negative (Negative); Blood,Urine Negative (Negative); Color,Urine Yellow; Glucose,Urine (UA) Negative (Negative); Ketones,Urine Negative (Negative); Leukocyte Esterase,Urine Negative (Negative); Nitrite,Urine Negative (Negative); PH, Urine 5.5 (5.0-8.0); Protein,Urine Negative (Negative); Specific Gravity,Urine 1.019 (1.001-1.035); Urobilinogen,Urine <2.0 mg/dL (<2.0)
[2019-06-18 15:49] VITALS: BMI 59.8
[2019-06-18] MEDS ORDERED: HYDROmorphone 0.5 MG/0.5 ML SYRINGE IVP PRN (16:53)
[2019-06-18] MEDS ORDERED: HYDROcodone/APAP 5-325MG 1 EACH TAB PO PRN (16:53)
[2019-06-18] MEDS ORDERED: VANCOMYCIN IV PER PHARMACY 1 EACH MISC MISCELLANE PRN (16:58)
[2019-06-18 17:19] LABS: Glucose,Whole Blood 421 mg/dL (75-99)
[2019-06-18] MEDS ORDERED: INSULIN ASPART (NovoLOG) 100 UNIT/ML VIAL SQ ONE (17:45)
[2019-06-18] MEDS: INSULIN ASPART (NovoLOG) 100 UNIT/ML VIAL SQ SCH ×2 (17:57→22:42)
[2019-06-18] MEDS: WARFARIN 5 MG TAB PO SCH (17:57)
[2019-06-18] MEDS: NICOTINE 14MG/24HR PATCH TRANSDERM SCH (17:57)
[2019-06-18] MEDS: methylPREDNISolone SOD SUCCI 125 MG/2 ML VIAL IV SCH (18:05)
[2019-06-18] MEDS: VANCOMYCIN 1,250 MG in SODIUM CHLORIDE 0.9% 250 ML IVPB SCH (18:06)
--- NOTE | 2019-06-18 19:55 | HP ---
HISTORY AND PHYSICAL DATE OF SERVICE: 06/18/2019. CHIEF COMPLAINT: Shortness of breath, cough and sputum and fever. HISTORY OF PRESENT ILLNESS: This 59-year-old gentleman with a past medical history of COPD, CVA, TIA, hypertension, myocardial infarction, history of respiratory disorder, history of right upper lobe fungal pneumonia, being followed by Dr. Urszula Carrasco in the outpatient setting has been admitted to [facility] on multiple occasions. Recently patient was admitted with COPD acute exacerbation. The patient improved. The patient went home. Apparently the patient had increased shortness of breath with cough and sputum with a fever up to 101. Patient had multiple falls also. The patient was taken to [facility] and admitted for further evaluation and treatment. Recent chest x-ray was done which was personally reviewed by me and showed some vague density in the right upper lobe indicating the primary pneumonia, fungal pneumonia, and the hip x- rays and shoulder x-ray was also done which were unremarkable. There is no history of any headache, loss of consciousness, seizures, any chest pain or palpitations at this time. PAST MEDICAL HISTORY: History of recent COPD, acute exacerbation, CVA, TIA, hypertension, myocardial infarction, fungal pneumonia, history of anxiety, depression, panic disorder. MEDICATIONS: Prior home medications are: 1. Albuterol 1-2 puffs q.6h p.r.n. 2. Prednisone taper. 3. Norvasc 10 mg. 4. Coumadin 5 mg. 5. Habitrol 14 daily. 6. Singulair 10 mg q.h.s. 7. Melatonin 5 mg q.h.s. 9. DuoNeb q.i.d. 10.Gabapentin 800 mg q.6h p.r.n. 11.Fluticasone salmeterol 1 puff b.i.d. 12.Pepcid AC 10 mg p.o. daily. 13.Lexapro 10 mg p.o. daily. 14.Augmentin 875 mg 1 p.o. b.i.d. 15.Xanax 0.5 t.i.d. p.r.n. ALLERGIES: PEANUTS. FAMILY HISTORY: History of kidney cancer. SOCIAL HISTORY: Occasional alcohol intake. History of smoking. REVIEW OF SYSTEMS: ENT: No diminished vision. No diminished hearing. Cardiovascular: S1, S2. Respiration as mentioned earlier. GI no nausea or vomiting. no dysuria or hematuria. Nervous system: No numbness or weakness. ALLERGY/IMMUNOLOGY: No asthma or hayfever. MUSCULOSKELETAL as mentioned earlier. HEMATOLOGY/ONCOLOGY: No history of anemia. ENDOCRINE: No history of diabetes or hypothyroidism. CONSTITUTIONAL: As mentioned earlier. DERMATOLOGY negative. RHEUMATOLOGY: Negative. PSYCHIATRIC: As mentioned earlier. PHYSICAL EXAMINATION: Alert and oriented times three. Pulse 107. Blood pressure 117/70, respirations 16, temperature 100.8, pulse ox 94% on room air. HEENT: Conjunctivae normal. Oral mucosa moist. NECK is no jugular venous distention. No carotid bruit. No lymph node enlargement. Cardiovascular system: S1, S2 muffled. RESPIRATORY: Breath sounds diminished in the bases. Bilateral scattered rhonchi and crackles. ABDOMEN: Soft, nontender. No mass palpable. LEGS: No edema. No swelling. NERVOUS SYSTEM: Higher functions as mentioned earlier. Moves all 4 limbs. No focal motor or sensory deficits. LYMPHATICS: No lymph nodes palpable in the neck, axillae or groin. SKIN: No ulcer, no rashes and no bleeding. JOINTS: No active deforming arthropathy. LABS: WBC 18.2, sodium 130, potassium 4.2. Lactic acid 3.5 and 5.3. ASSESSMENT: 1. Chronic obstructive pulmonary disease acute exacerbation with acute purulent tracheobronchitis, possible pneumonia with failure of outpatient treatment, possible hospital acquired pneumonia with possible sepsis present on admission. 2. Hyponatremia. 3. Increased WBC. 4. Chronic obstructive pulmonary disease acute exacerbation. 5. History of cerebrovascular accident, transient ischemic attack. 6. Hypertension. 7. History of myocardial infarction. 8. History of pneumonia. 9. History of right upper lobe fungal pneumonia, Aspergillus positive. 10.Chronic hypoxic respiratory failure on home oxygen at 2 L nasal cannula. 11.History of shingles. 12.History of cerebrovascular accident with basal ganglia hemorrhage with right arm weakness. 13.Anxiety, depression, panic disorder. 14.History of nicotine dependence. 15.History of THC. RECOMMENDATIONS AND DISCUSSION: This 59-year-old gentleman presented with multiple complex medical issues, we will monitor the patient closely, continue the current medications, management and symptomatic treatment. We will initiate broad-spectrum IV antibiotics. The influenza is negative. I would recommend Infectious Disease evaluation as well as a Pulmonary evaluation. Prognosis guarded. Bronchodilators. See orders for details. Further recommendations to follow. A copy of dictation being forwarded to Dr. Urszula Carrasco who is the primary physician. MMODL / IJN: [id number] / RAYNA
[2019-06-18 20:13] LABS: Glucose,Whole Blood 375 mg/dL (75-99)
[2019-06-18] MEDS: FORMOTEROL FUMARATE 20 MCG/2 ML NEBU INHALATION SCH (20:51)
[2019-06-18] MEDS: BUDESONIDE 1 MG/2 ML NEBU INHALATION SCH (20:51)
[2019-06-18] MEDS: IPRATROPIUM-ALBUTEROL 3 ML NEB INHALATION SCH (20:51)
[2019-06-18] MEDS: PIPERACILLIN-TAZOBACTAM 3.375 GM in SODIUM CHLORIDE 0.9% 100 ML IVPB SCH (21:27)
[2019-06-18 22:04] LABS: Glucose,Whole Blood 300 mg/dL (75-99)
[2019-06-18] MEDS: MONTELUKAST 10 MG TAB PO SCH (22:38)
[2019-06-18] MEDS: MELATONIN 5 MG TABLET PO SCH (22:38)
[2019-06-19] MEDS ORDERED: INSULIN REGULAR BOLUS (FROM DRIP BAG) IV ONE
[2019-06-19] MEDS ORDERED: INSULIN REGULAR 100 UNIT in SODIUM CHLORIDE 0.9% 100 ML IV SCH ×2
[2019-06-19 00:52] LABS: Glucose,Whole Blood 176 mg/dL (75-99)
[2019-06-19] MEDS: methylPREDNISolone SOD SUCCI 125 MG/2 ML VIAL IV SCH ×4 (01:08→17:14)
[2019-06-19] MEDS: VANCOMYCIN 1,250 MG in SODIUM CHLORIDE 0.9% 250 ML IVPB SCH ×3 (02:20→17:47)
[2019-06-19] MEDS: PIPERACILLIN-TAZOBACTAM 3.375 GM in SODIUM CHLORIDE 0.9% 100 ML IVPB SCH ×3 (05:00→20:42)
[2019-06-19 05:49] LABS: Basophils # (A) 0.1 k/uL (0-0.2); Basophils % (A) 1 %; Eosinophils # (A) 0.1 k/uL (0-0.7); Eosinophils % (A) 1 %; HCT 35.8 % (39.0-53.0); HGB 12.4 gm/dL (13.0-17.5); Lymphocytes # (A) 0.2 k/uL (1.0-4.8); Lymphocytes % (A) 1 %; MCH 33.8 pg (25.0-35.0); MCHC 34.7 g/dL (31.0-37.0); MCV 97.3 fL (80.0-100.0); Mean Platelet Volume 5.9; Monocytes # (A) 0.2 k/uL (0-1.0); Monocytes % (A) 1 %; Neutrophils # (A) 16.2 k/uL (1.3-7.7); Neutrophils % (A) 96 %; Platelet Count 207 k/uL (150-450); RBC 3.68 m/uL (4.30-5.90)
[2019-06-19 06:03] LABS: African American GFR (CKD) >90 (>60 ml/min/1.73 sqM); Anion Gap 4 mmol/L; Blood Urea Nitrogen 22 mg/dL (9-20); Calcium 8.8 mg/dL (8.4-10.2); Carbon Dioxide 26 mmol/L (22-30); Chloride 105 mmol/L (98-107); Glucose 148 mg/dL (74-99); Sodium 135 mmol/L (137-145)
[2019-06-19 06:11] LABS: Glucose,Whole Blood 162 mg/dL (75-99)
[2019-06-19 06:14] LABS: INR 1.9 (<1.2); Prothrombin Time 18.3 sec (9.0-12.0)
[2019-06-19] MEDS: PANTOPRAZOLE 40 MG TABLET PO SCH (06:27)
[2019-06-19] MEDS: INSULIN ASPART (NovoLOG) 100 UNIT/ML VIAL SQ SCH ×4 (06:27→20:43)
[2019-06-19] MEDS: IPRATROPIUM-ALBUTEROL 3 ML NEB INHALATION SCH ×4 (08:07→20:01)
[2019-06-19] MEDS: FORMOTEROL FUMARATE 20 MCG/2 ML NEBU INHALATION SCH ×2 (08:07→20:01)
[2019-06-19] MEDS: BUDESONIDE 1 MG/2 ML NEBU INHALATION SCH ×2 (08:07→20:01)
[2019-06-19] MEDS ORDERED: FAMOTIDINE 20 MG TAB PO SCH (09:00)
[2019-06-19] MEDS: NICOTINE 14MG/24HR PATCH TRANSDERM SCH (09:31)
[2019-06-19] MEDS: ESCITALOPRAM 10 MG TAB PO SCH (09:31)
[2019-06-19] MEDS: ALPRAZolam 0.25 MG TAB PO PRN ×2 (09:31→21:34)
[2019-06-19] MEDS: amLODIPine 10 MG TAB PO SCH (09:31)
[2019-06-19] MEDS: ITRACONAZOLE 100 MG CAP PO SCH (09:32)
[2019-06-19 11:49] LABS: Glucose,Whole Blood 151 mg/dL (75-99)
--- NOTE | 2019-06-19 15:08 | CONS ---
CONSULTATION This is a patient who apparently was brought in to the emergency room on June 18. He has a history of multiple myocardial infarction and CVA. 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 In addition, he has a history of shingles involving the right eye with loss of the right eye and subsequent prosthesis. The patient apparently was very weak and apparently had a couple of falls at home. For that reason, he came in. In addition, he had been having some pain. The pain was involving the left shoulder, left chest area as well. Anyway, the patient also complained of hip pain. The patient did not come in with any lung issues such as shortness of breath, chest tightness, wheezing, cough or phlegm production. In fact, the patient which was recently inpatient. At that time, we continued him on Sporanox for his chronic Aspergillus infection involving the right upper lobe. He was also on Coumadin for incidental finding of pulmonary embolism. Again, he denies all pulmonary complaints. He is still smoking cigarettes. CURRENT MEDICATIONS: Include melatonin, Advair, amlodipine, albuterol inhaler, famotidine, nicotine patch, Augmentin, DuoNeb, itraconazole, prednisone taper, Singulair, Lexapro, warfarin, and Xanax. ALLERGIES: PEANUTS. MEDICAL HISTORY: Angina pectoris, COPD, CVA, hypertension, myocardial infarction, aspergilloma, chronic necrotizing aspergillosis, pulmonary infection, as well as chronic hypoxemic respiratory failure. In addition, the patient has a history of shingles involving the right eye with right eye blindness. The patient also has a previous history of CVA involving the basal ganglia and recent left shoulder injury. SURGICAL HISTORY: Includes right eye enucleation with prosthesis and metal plate, left hand middle finger as well as some other minor procedures. SOCIAL HISTORY: Positive for ongoing tobacco use. Denies alcohol. He does use marijuana from time to time. FAMILY HISTORY: Positive for a mother with kidney cancer and a father with melanoma and COPD. REVIEW OF SYSTEMS: CONSTITUTIONAL: Weakness. NEUROLOGIC: Negative. HEENT: Negative. CARDIOVASCULAR: Negative. PULMONARY: Negative. GI: Negative. : Negative. MUSCULOSKELETAL: Musculoskeletal complaints. RHEUMATOLOGIC: Negative. DERMATOLOGIC: Negative. ENDOCRINOLOGIC: Negative. Current vital signs are reviewed, they include a temperature of 98, heart rate 100, respiratory rate 18, blood pressure 131/75 mean 93, 2 L saturation 97%. He appears in no acute distress. HEENT: Examination is grossly unremarkable. Mucous membranes are moist. No oral lesions. NECK: Supple. Full range of motion. No adenopathy or thyromegaly. Neck veins are flat. CARDIOVASCULAR: Examination reveals regular rhythm rate. He is about 95 beats per minute. S1, S2 normal. There is no murmur. LUNGS: Reveal diminished breath sounds throughout. A few scattered mild rhonchi. No wheezes or crackles. There is prolongation on forced maneuver. ABDOMEN: Soft. Bowel sounds are heard. EXTREMITIES: Intact. There is no cyanosis, clubbing, or edema. SKIN: Without rash. NEUROLOGIC: Examination is brief but nonfocal. LAB DATA: Reviewed. White count 17, hemoglobin 12.4, hematocrit 35.8, platelet count 207,000, PT,INR was 18.3 and 1.9. Sodium 135, potassium 4, chloride 105, CO2 is 26. BUN and creatinine were 22 and 0.55. His initial lactic acid was 2.5. Repeat lactic acid 1.4. The patient's chest x-ray showed a vague density in the right upper lobe, likely representing his area of aspergilloma and chronic necrotizing Aspergillus infection. ASSESSMENT: 1. Status post recent falls with various musculoskeletal and soft tissue injuries, secondary to weakness. 2. Nonocclusive saddle embolism seen on CT angiogram, currently on Coumadin therapy. 3. Aspergilloma, right upper lobe. 4. Chronic necrotizing Aspergillus infection, right upper lobe. 5. Severe oxygen-dependent chronic obstructive pulmonary disease with an FEV1 that is 36% of predicted. 6. Ongoing tobacco user with nicotine addiction. 7. History of cerebrovascular accident. 8. 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 9. Type 2 diabetes mellitus. 10.Gastroesophageal reflux disease. 11.History of coronary artery disease with previous myocardial infarction. PLAN: From the pulmonary standpoint, the patient is stable. He should continue on the Coumadin. From the respiratory standpoint, he is stable. No additional recommendations are made. He is on itraconazole. He will follow up with the Pulmonary Clinic in the near future. No additional recommendations are made. Will see the patient only as needed. Prognosis is guarded. He is counseled about the importance of smoking cessation. MMODL / IJN: [id number] /
[2019-06-19] MEDS: HYDROcodone/APAP 7.5-325MG 1 EACH TAB PO PRN ×2 (15:28→21:34)
--- NOTE | 2019-06-19 15:30 | P.PN ---
Subjective Progress Note Date: 06/19/19 Principal diagnosis: This is a 59-year-old male who was recently admitted with increasing shortness of breath with cough and sputum and reports fever and is being closely monitored . Patient states that he has been having multiple falls and will be followed by PT/OT. IV antibiotics were initiated and infectious disease was consulted. Patient is being maintained on bronchodilators as well as IV steroids at this time. No acute overnight issues. Currently patient denies any chest pain or palpitations. Patient states that his shortness of breath has slightly improved but continues to have pain in the shoulder at this time. X-rays were done which were unremarkable. Patient denies any nausea or vomiting and is tolerating diet. Will continue to monitor closely. Guarded prognosis. REVIEW OF SYSTEMS: ENT: Reports diminished vision of the right eye CARDIOVASCULAR: Denies chest pain or palpitations. RESPIRATORY: Reports some shortness of breath and cough. GI: No nausea, vomiting or diarrhea. : No dysuria or retention. NERVOUS SYSTEM: Reports generalized weakness. MUSCULOSKELETAL: As mentioned earlier. HEMATOLOGY/ONCOLOGY: No history of anemia. ENDOCRINE: No history of diabetes or hypothyroidism. CONSTITUTIONAL: Reports fatigue PSYCHIATRY: Cooperative and no reports of suicidal ideation. RHEUMATOLOGY: Negative. Active Medications Hydrocodone Bitart/Acetaminophen ([place] 7.5-325) 1 each PO Q6H PRN PRN Reason: Moderate Pain Last Admin: 06/19/19 15:28 Dose: 1 each Documented by: Albuterol/Ipratropium (Duoneb 0.5 Mg-3 Mg/3 Ml Soln) 3 ml INHALATION RT-QID [facility] Last Admin: 06/19/19 11:28 Dose: 3 ml Documented by: Alprazolam (Xanax) 0.25 mg PO TID PRN PRN Reason: Anxiety Last Admin: 06/19/19 09:31 Dose: 0.25 mg Documented by: Amlodipine Besylate (Norvasc) 10 mg PO DAILY [facility] Last Admin: 06/19/19 09:31 Dose: 10 mg Documented by: Budesonide (Pulmicort) 1 mg INHALATION RT-BID [facility] Last Admin: 06/19/19 08:07 Dose: 1 mg Documented by: Escitalopram Oxalate (Lexapro) 10 mg PO DAILY [facility] Last Admin: 06/19/19 09:31 Dose: 10 mg Documented by: Formoterol Fumarate (Perforomist) 20 mcg INHALATION RT-BID [facility] Last Admin: 06/19/19 08:07 Dose: 20 mcg Documented by: Gabapentin (Neurontin) 800 mg PO Q6H PRN PRN Reason: Pain Hydromorphone HCl (Dilaudid) 0.5 mg IVP Q6HR PRN PRN Reason: Severe Pain Piperacillin Sod/Tazobactam (Sod 3.375 gm/ Sodium Chloride) 100 mls @ 25 mls/hr IVPB Q8H [facility] Last Admin: 06/19/19 11:51 Dose: 25 mls/hr Documented by: Vancomycin HCl 1,250 mg/ (Sodium Chloride) 250 mls @ 125 mls/hr IVPB Q8H [facility] Last Admin: 06/19/19 11:52 Dose: 125 mls/hr Documented by: Insulin Human Regular 100 unit (/ Sodium Chloride) 101 mls @ 0 mls/hr IV .Q0M [facility]; Protocol Insulin Aspart (Novolog) 0 unit SQ ACHS [facility]; Protocol Last Admin: 06/19/19 11:54 Dose: 2 unit Documented by: Itraconazole (Sporanox) 200 mg PO DAILY [facility] Last Admin: 06/19/19 09:32 Dose: 200 mg Documented by: Melatonin (Melatonin) 5 mg PO [facility] Last Admin: 06/18/19 22:38 Dose: 5 mg Documented by: Methylprednisolone Sodium Succinate (Solu-Medrol) 60 mg IV Q6HR [facility] Last Admin: 06/19/19 11:51 Dose: 60 mg Documented by: Miscellaneous Information (Vancomycin Trough Due) 0 each MISCELLANE DIRECTED ONE Stop: 06/19/19 17:01 Montelukast Sodium (Singulair) 10 mg PO [facility] Last Admin: 06/18/19 22:38 Dose: 10 mg Documented by: Nicotine (Habitrol 14mg/24hr Patch) 1 patch TRANSDERM DAILY [facility] Last Admin: 06/19/19 09:31 Dose: 1 patch Documented by: Pantoprazole Sodium (Protonix) 40 mg PO AC-BRKFST [facility] Last Admin: 06/19/19 06:27 Dose: 40 mg Documented by: Warfarin Sodium (Coumadin) 5 mg PO DAILY@1800 [facility] Last Admin: 06/18/19 17:57 Dose: 5 mg Documented by: Objective - Vital Signs Vital signs: Vital Signs Temp 98.2 F 11/01/19 13:56 Pulse 105 H 06/19/19 13:56 Resp 18 06/19/19 13:56 BP 149/75 06/19/19 13:56 Pulse Ox 94 L 06/19/19 13:56 Intake & Output 06/18/19 06/19/19 06/19/19 18:59 06:59 18:59 Intake Total 590 240 Balance 590 240 Weight 70.307 kg 71.1 kg Intake: Oral 590 240 Other: Voiding Method Toilet # Voids 1 1 1 # Bowel Movements 1 - Exam Gen: This is a 59-year-old male lying in bed sleeping but arousable and appears to be in no acute distress. Vital Signs are stable. Temp is 98.2F, pulse is 105, respirations are 18, blood pressure is 149/75, oxygen saturation is 94% on 2 L via nasal cannula. Patient is O2 dependent at home. HEENT: Head is atraumatic, normocephalic. Left Pupil equal, round. Sclerae is anicteric. Right occipital prosthesis noted NECK: Supple. No JVD. No lymphadenopathy. No thyromegaly. LUNGS: Diminished breath sounds at the bases with scattered rhonchi and crackles noted throughout. Expiratory wheezes noted. No intercostal retractions. HEART: S1, S2 are muffled. ABDOMEN: Soft. Obese. Bowel sounds are present. No masses. No tenderness. EXTREMITIES: No pedal edema. No calf tenderness. NEUROLOGICAL: Patient is awake, alert and oriented x3. Cranial nerves 2 through 12 are grossly intact. - Labs CBC & Chem 7: 06/19/19 05:33 06/19/19 05:33 Labs: Abnormal Lab Results - Last 24 Hours (Table) 06/18/19 06/18/19 06/18/19 Range/Units 16:02 17:17 20:11 WBC (3.8-10.6) k/uL RBC (4.30-5.90) m/uL Hgb (13.0-17.5) gm/dL Hct (39.0-53.0) % Neutrophils # (1.3-7.7) k/uL Lymphocytes # (1.0-4.8) k/uL PT (9.0-12.0) sec INR (<1.2) Sodium (137-145) mmol/L BUN (9-20) mg/dL Creatinine (0.66-1.25) mg/dL Glucose (74-99) mg/dL POC Glucose (mg/dL) 421 H 375 H (75-99) mg/dL Plasma Lactic Acid Gray 5.3 H* (0.7-2.0) mmol/L 06/18/19 06/18/19 06/19/19 Range/Units 20:12 22:01 00:33 WBC (3.8-10.6) k/uL RBC (4.30-5.90) m/uL Hgb (13.0-17.5) gm/dL Hct (39.0-53.0) % Neutrophils # (1.3-7.7) k/uL Lymphocytes # (1.0-4.8) k/uL PT (9.0-12.0) sec INR (<1.2) Sodium (137-145) mmol/L BUN (9-20) mg/dL Creatinine (0.66-1.25) mg/dL Glucose (74-99) mg/dL POC Glucose (mg/dL) 300 H 176 H (75-99) mg/dL Plasma Lactic Acid Gray 2.8 H* (0.7-2.0) mmol/L 06/19/19 06/19/19 06/19/19 Range/Units 00:39 05:33 05:33 WBC 17.0 H (3.8-10.6) k/uL RBC 3.68 L (4.30-5.90) m/uL Hgb 12.4 L (13.0-17.5) gm/dL Hct 35.8 L (39.0-53.0) % Neutrophils # 16.2 H (1.3-7.7) k/uL Lymphocytes # 0.2 L (1.0-4.8) k/uL PT 18.3 H (9.0-12.0) sec INR 1.9 H (<1.2) Sodium (137-145) mmol/L BUN (9-20) mg/dL Creatinine (0.66-1.25) mg/dL Glucose (74-99) mg/dL POC Glucose (mg/dL) (75-99) mg/dL Plasma Lactic Acid Gray 2.5 H* (0.7-2.0) mmol/L 06/19/19 06/19/19 06/19/19 Range/Units 05:33 06:10 11:47 WBC (3.8-10.6) k/uL RBC (4.30-5.90) m/uL Hgb (13.0-17.5) gm/dL Hct (39.0-53.0) % Neutrophils # (1.3-7.7) k/uL Lymphocytes # (1.0-4.8) k/uL PT (9.0-12.0) sec INR (<1.2) Sodium 135 L (137-145) mmol/L BUN 22 H (9-20) mg/dL Creatinine 0.55 L (0.66-1.25) mg/dL Glucose 148 H (74-99) mg/dL POC Glucose (mg/dL) 162 H 151 H (75-99) mg/dL Plasma Lactic Acid Gray (0.7-2.0) mmol/L Microbiology - Last 24 Hours (Table) 06/18/19 12:20 Blood Culture - Preliminary Blood No Growth after 24 hours Assessment and Plan Assessment: Chronic obstructive pulmonary disease acute exacerbation with acute purulent tracheobronchitis, possible pneumonia with failure of outpatient treatment, possible hospital-acquired pneumonia with possible sepsis, present on admission Hyponatremia Increased WBC Chronic obstructive pulmonary disease with acute exacerbation History of CVA/TIA Hypertension History of myocardial infarction next line history of pneumonia history of right upper lobe fungal pneumonia, Aspergillus positive Chronic hypoxic respiratory failure on home O2 at 2 L via nasal cannula history of shingles 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 Pulmonary was consulted and recommended to continue current treatment and will follow them as needed and patient will follow-up with them in the outpatient setting upon discharge. Patient is currently on IV antibiotics in the form of vancomycin and Zosyn and infectious disease was consulted. Will continue on bronchodilators as well as IV steroids at this time. Patient's INR is subtherapeutic 1.9 and will continue to monitor closely. Patient's repeat lactic acid is now 1.4. PT/OT following. Due to multiple complex medical issues prognosis is extremely guarded. Further recommendations to follow.
[2019-06-19 16:36] LABS: Hemoglobin A1C 5.8 % (4.0-6.0)
[2019-06-19 16:51] LABS: Glucose,Whole Blood 189 mg/dL (75-99)
[2019-06-19] MEDS ORDERED: VANCOMYCIN TROUGH DUE 1 EACH MISC MISCELLANE ONE (17:00)
[2019-06-19] MEDS: GABAPENTIN 400 MG CAP PO PRN (17:13)
[2019-06-19] MEDS: WARFARIN 5 MG TAB PO SCH (17:13)
[2019-06-19 20:18] LABS: Glucose,Whole Blood 155 mg/dL (75-99)
[2019-06-19] MEDS: MONTELUKAST 10 MG TAB PO SCH (20:42)
[2019-06-19] MEDS: MELATONIN 5 MG TABLET PO SCH (20:43)
--- NOTE | 2019-06-20 00:13 | P.CONS ---
History of Present Illness - Reason for Consult Consult date: 06/19/19 Pneumonia and sepsis Requesting physician: Tricia Cano - Chief Complaint Weakness and falls and shoulder pain x few days - History of Present Illness Ration is a 59-year-old male with past medical history significant for COPD chronic smoking also with a history of right upper lobe chronic pneumonia has been diagnosed by pulmonary with aspergillosis and is currently on Sporanox also with a history of PE and the patient is currently on Coumadin patient is not presenting to the ER at [facility] chief complaints of generalized weakness and inability to get up and around and do follow the patient did have multiple falls recently at home has been complaining of pain mostly in the left shoulder and hip area after these falls is mostly dull aching to sharp 5-6 out of 10 and worse with movement currently with no sniffing associated swelling, or any redness or open wound or any drainage with asymptomatic the patient presented to the hospital patient was evaluated by the physician patient presented to hospital did have a fever to 101F patient did have elevated white count of 18,000 , patient had did have a chest x-ray right upper lobe infiltrate with concern for atelectasis versus pneumonia patient influenza serology was negative UA was negative patient was started on vancomycin and Zosyn and admitted to the hospital infectious disease was consulted for further recommendation regarding antibiotic therapy Review of Systems Positive point has been mentioned in the HPI rest of the systems are negative Past Medical History Past Medical History: Chest Pain / Angina, COPD, CVA/TIA, Hypertension, Myocardial Infarction (MT), Pneumonia, Respiratory Disorder, Skin Disorder Additional Past Medical History / Comment(s): R upper lobe consolidation thought to be fungal/+asperigillus fumigatus, chronic hypoxic respiratory failure/ home O2 at 2L/NC ATC, 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 Last Myocardial Infarction Date:: unknown History of Any Multi-Drug Resistant Organisms: None Reported Past Surgical History: Orthopedic Surgery Additional Past Surgical History / Comment(s): metal plate left hand middle finger, right eye enucleation. Past Anesthesia/Blood Transfusion Reactions: No Reported Reaction Past Psychological History: Anxiety, Depression, Panic Disorder Additional Psychological History / Comment(s): Lives in apartment, 17 steps to climb.Has a nebulizer/oxygen. 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 Smoking Status: Smoker, current status unknown Past Alcohol Use History: Occasional Additional Past Alcohol Use History / Comment(s): STARTED SMOKING 1975 1 PPD- QUIT 6 MONTHS AGO, PT STATED HE DRINKS 2 BEER a day Past Drug Use History: Marijuana Additional Drug Use History / Comment(s): Pt states he uses marajuana at times. - Past Family History Mother Family Medical History: Cancer Additional Family Medical History / Comment(s): Pt believes his Mom of Kidney Cancer Father Family Medical History: Cancer, COPD, Respiratory Disorder Additional Family Medical History / Comment(s): Melanoma Medications and Allergies Home Medications Medication Instructions Recorded Confirmed Type Melatonin 5 mg PO HS 11/14/18 06/18/19 History Montelukast [Singulair] 10 mg PO HS #30 tab 11/17/18 06/18/19 Rx Fluticasone/Salmeterol 1 puff INHALATION RT-BID 04/29/19 06/18/19 History [Fluticasone-Salmeterol 232-14] Gabapentin 800 mg PO Q6H PRN 04/29/19 06/18/19 History amLODIPine [Norvasc] 10 mg PO DAILY 04/29/19 06/18/19 History Albuterol Inhaler [Ventolin Hfa 1 - 2 puff INHALATION RT-Q6H PRN 05/11/19 06/18/19 History Inhaler] Escitalopram [Lexapro] 10 mg PO DAILY #15 tab 05/15/19 06/18/19 Rx Famotidine [Pepcid AC] 10 mg PO DAILY 06/04/19 06/18/19 History Nicotine 14Mg/24Hr Patch [Habitrol] 1 patch TRANSDERM DAILY 06/04/19 06/18/19 History Warfarin [Coumadin] 5 mg PO DAILY #20 tab 06/11/19 06/18/19 Rx Amoxic-Pot Clav 875-125Mg 1 tab PO Q12HR 06/13/19 06/18/19 History [Augmentin 875-575] Ipratropium-Albuterol Nebulize 3 ml INHALATION RT-QID 06/13/19 06/18/19 History [Duoneb 0.5 mg-3 mg/3 ml Soln] Itraconazole [Sporanox] 200 mg PO DAILY 06/13/19 06/18/19 History ALPRAZolam [Xanax] 0.25 mg PO TID PRN #30 tab 06/15/19 06/18/19 Rx predniSONE See Taper PO DIRECTED 06/18/19 06/18/19 History Allergies Allergy/AdvReac Type Severity Reaction Status Date / Time peanut [Peanut Butter] AdvReac Nausea & Verified 06/18/19 12:54 Vomiting & Diarrhea Physical Exam Vitals: Vital Signs Temp Pulse Pulse Resp BP BP Pulse Ox 06/19/19 11:39 108 H 06/19/19 11:29 100 06/19/19 08:29 104 H 06/19/19 08:18 108 H 06/19/19 08:09 100 06/19/19 08:00 98.0 F 104 H 18 131/75 97 06/19/19 04:00 98.0 F 101 H 18 133/68 97 06/19/19 00:00 98.7 F 89 20 111/67 96 06/18/19 21:15 108 H 06/18/19 21:06 104 H 06/18/19 21:05 104 H 06/18/19 20:51 100 06/18/19 20:12 98.4 F 91 20 126/71 97 06/18/19 20:00 20 06/18/19 16:00 93 06/18/19 15:43 104 H 06/18/19 15:34 108 H 06/18/19 14:49 100.8 F H 107 H 16 117/70 94 L 06/18/19 14:38 98.1 F 93 20 110/68 94 L 06/18/19 13:51 100.8 F H 06/18/19 13:40 107 H 16 117/70 94 L 06/18/19 12:18 101.3 F H 114 H 18 125/88 93 L Intake and Output 06/18/19 06/19/19 06/19/19 22:59 06:59 14:59 Intake Total 590 240 Balance 590 240 Intake: Oral 590 240 Other: Voiding Method Toilet Toilet # Voids 1 1 # Bowel Movements 1 Weight 71.1 kg GENERAL DESCRIPTION: Middle-aged male lying in bed, no distress. No tachypnea or accessory muscle of respiration use. HEENT: Shows Pallor , no scleral icterus. Oral mucous membrane is dry. No pharyngeal erythema or thrush NECK: Trachea central, no thyromegaly. LUNGS: Unlabored breathing. Decreased intensity of breath sounds No wheeze or crackle. HEART: S1, S2, regular rate and rhythm. No loud murmur ABDOMEN: Soft, no tenderness , guarding or rigidity, no organomegaly EXTREMITIES: No edema of feet. SKIN: No rash, no masses palpable. NEUROLOGICAL: The patient is awake, alert, oriented x3, mood and affect normal. Results CBC & Chem 7: 06/19/19 05:33 06/19/19 05:33 Labs: Abnormal Lab Results - Last 24 Hours (Table) 06/18/19 06/18/19 06/18/19 Range/Units 12:20 12:20 12:20 WBC 18.2 H (3.8-10.6) k/uL RBC (4.30-5.90) m/uL Hgb (13.0-17.5) gm/dL Hct (39.0-53.0) % Neutrophils # 16.3 H (1.3-7.7) k/uL Lymphocytes # 0.7 L (1.0-4.8) k/uL Basophils # 0.4 H (0-0.2) k/uL PT (9.0-12.0) sec INR (<1.2) Sodium 131 L (137-145) mmol/L Chloride 97 L (98-107) mmol/L BUN 31 H (9-20) mg/dL Creatinine (0.66-1.25) mg/dL Glucose (74-99) mg/dL POC Glucose (mg/dL) (75-99) mg/dL Plasma Lactic Acid Gray 3.5 H* (0.7-2.0) mmol/L 06/18/19 06/18/19 06/18/19 Range/Units 12:20 16:02 17:17 WBC (3.8-10.6) k/uL RBC (4.30-5.90) m/uL Hgb (13.0-17.5) gm/dL Hct (39.0-53.0) % Neutrophils # (1.3-7.7) k/uL Lymphocytes # (1.0-4.8) k/uL Basophils # (0-0.2) k/uL PT 12.3 H (9.0-12.0) sec INR 1.2 H (<1.2) Sodium (137-145) mmol/L Chloride (98-107) mmol/L BUN (9-20) mg/dL Creatinine (0.66-1.25) mg/dL Glucose (74-99) mg/dL POC Glucose (mg/dL) 421 H (75-99) mg/dL Plasma Lactic Acid Gray 5.3 H* (0.7-2.0) mmol/L 06/18/19 06/18/19 06/18/19 Range/Units 20:11 20:12 22:01 WBC (3.8-10.6) k/uL RBC (4.30-5.90) m/uL Hgb (13.0-17.5) gm/dL Hct (39.0-53.0) % Neutrophils # (1.3-7.7) k/uL Lymphocytes # (1.0-4.8) k/uL Basophils # (0-0.2) k/uL PT (9.0-12.0) sec INR (<1.2) Sodium (137-145) mmol/L Chloride (98-107) mmol/L BUN (9-20) mg/dL Creatinine (0.66-1.25) mg/dL Glucose (74-99) mg/dL POC Glucose (mg/dL) 375 H 300 H (75-99) mg/dL Plasma Lactic Acid Gray 2.8 H* (0.7-2.0) mmol/L 06/19/19 06/19/19 06/19/19 Range/Units 00:33 00:39 05:33 WBC 17.0 H (3.8-10.6) k/uL RBC 3.68 L (4.30-5.90) m/uL Hgb 12.4 L (13.0-17.5) gm/dL Hct 35.8 L (39.0-53.0) % Neutrophils # 16.2 H (1.3-7.7) k/uL Lymphocytes # 0.2 L (1.0-4.8) k/uL Basophils # (0-0.2) k/uL PT (9.0-12.0) sec INR (<1.2) Sodium (137-145) mmol/L Chloride (98-107) mmol/L BUN (9-20) mg/dL Creatinine (0.66-1.25) mg/dL Glucose (74-99) mg/dL POC Glucose (mg/dL) 176 H (75-99) mg/dL Plasma Lactic Acid Gray 2.5 H* (0.7-2.0) mmol/L 06/19/19 06/19/19 06/19/19 Range/Units 05:33 05:33 06:10 WBC (3.8-10.6) k/uL RBC (4.30-5.90) m/uL Hgb (13.0-17.5) gm/dL Hct (39.0-53.0) % Neutrophils # (1.3-7.7) k/uL Lymphocytes # (1.0-4.8) k/uL Basophils # (0-0.2) k/uL PT 18.3 H (9.0-12.0) sec INR 1.9 H (<1.2) Sodium 135 L (137-145) mmol/L Chloride (98-107) mmol/L BUN 22 H (9-20) mg/dL Creatinine 0.55 L (0.66-1.25) mg/dL Glucose 148 H (74-99) mg/dL POC Glucose (mg/dL) 162 H (75-99) mg/dL Plasma Lactic Acid Gray (0.7-2.0) mmol/L 06/19/19 Range/Units 11:47 WBC (3.8-10.6) k/uL RBC (4.30-5.90) m/uL Hgb (13.0-17.5) gm/dL Hct (39.0-53.0) % Neutrophils # (1.3-7.7) k/uL Lymphocytes # (1.0-4.8) k/uL Basophils # (0-0.2) k/uL PT (9.0-12.0) sec INR (<1.2) Sodium (137-145) mmol/L Chloride (98-107) mmol/L BUN (9-20) mg/dL Creatinine (0.66-1.25) mg/dL Glucose (74-99) mg/dL POC Glucose (mg/dL) 151 H (75-99) mg/dL Plasma Lactic Acid Gray (0.7-2.0) mmol/L Assessment and Plan Assessment: 1-patient presented to hospital with sepsis in this patient who did have a fever again cardia and elevated white count she did have some chronic cough and have history of right upper lobe pneumonia thought to be related to Aspergillus now currently with no other clinical focus of infection in this patient with no cellulitis UA negative and a serology was negative has been coming up into the shoulder and hip area with recent history of fall and x-rays suggested possible osteonecrosis (1) Sepsis Current Visit: Yes Status: Acute Code(s): A41.9 - SEPSIS, UNSPECIFIED ORGANISM SNOMED Code(s): 05178417 Plan: 1-we will repeat a chest x-ray PA and lateral 2-we'll obtain a sputum for Gram stain and culture 3-continue Zosyn 3.375 g every 8 Jordin discontinue the vancomycin to decrease risk of nephrotoxicity 4-we'll check a pro-calcitonin level We will follow on clinical condition and cultures to further adjust medication if needed Thank you for this consultation will follow this patient with you Time with Patient: Greater than 30
[2019-06-20] MEDS: GABAPENTIN 400 MG CAP PO PRN ×4 (00:50→21:52)
[2019-06-20] MEDS: methylPREDNISolone SOD SUCCI 125 MG/2 ML VIAL IV SCH ×4 (00:50→17:24)
[2019-06-20] MEDS ORDERED: VANCOMYCIN 1,500 MG in SODIUM CHLORIDE 0.9% 250 ML IVPB SCH (02:00)
[2019-06-20] MEDS: PIPERACILLIN-TAZOBACTAM 3.375 GM in SODIUM CHLORIDE 0.9% 100 ML IVPB SCH ×3 (03:57→20:25)
[2019-06-20] MEDS: HYDROcodone/APAP 7.5-325MG 1 EACH TAB PO PRN ×3 (03:57→17:24)
[2019-06-20] MEDS: ALPRAZolam 0.25 MG TAB PO PRN ×2 (06:03→14:04)
--- NOTE | 2019-06-20 06:48 | XR ---
EXAMINATION TYPE: XR chest 2V DATE OF EXAM: 06/20/2019 HISTORY: pneumonia. REFERENCE: Previous study dated 06/18/2019. FINDINGS: The lungs are overinflated. Vague density persists in the right upper lobe. The left lung is clear. There is blunting of both CP angles. I could not exclude small effusions. The heart is not enlarged. IMPRESSION: 1. COPD. 2. I COULD NOT EXCLUDE A RIGHT UPPER LOBE.
[2019-06-20 06:56] LABS: Basophils % (A) 0 %; Eosinophils % (A) 0 %; HCT 35.2 % (39.0-53.0); INR 2.6 (<1.2); Lymphocytes # (A) 0.3 k/uL (1.0-4.8); Lymphocytes % (A) 1 %; MCH 33.7 pg (25.0-35.0); MCV 99.3 fL (80.0-100.0); Macrocytosis Slight; Mean Platelet Volume 5.8; Monocytes # (A) 0.7 k/uL (0-1.0); Monocytes % (A) 3 %; Neutrophils # (A) 25.1 k/uL (1.3-7.7); Neutrophils % (A) 96 %; Platelet Count 222 k/uL (150-450); Prothrombin Time 25.5 sec (9.0-12.0); RBC 3.55 m/uL (4.30-5.90); RDW 15.2 % (11.5-15.5); WBC 26.2 k/uL (3.8-10.6)
[2019-06-20 07:07] LABS: African American GFR (CKD) >90 (>60 ml/min/1.73 sqM); Anion Gap 6 mmol/L; Blood Urea Nitrogen 23 mg/dL (9-20); Calcium 8.9 mg/dL (8.4-10.2); Carbon Dioxide 25 mmol/L (22-30); Chloride 107 mmol/L (98-107); Glucose 144 mg/dL (74-99); Sodium 138 mmol/L (137-145)
[2019-06-20 07:13] LABS: Glucose,Whole Blood 136 mg/dL (75-99)
[2019-06-20] MEDS: PANTOPRAZOLE 40 MG TABLET PO SCH (07:20)
[2019-06-20] MEDS: INSULIN ASPART (NovoLOG) 100 UNIT/ML VIAL SQ SCH ×4 (07:20→21:52)
[2019-06-20] MEDS: ITRACONAZOLE 100 MG CAP PO SCH (08:09)
[2019-06-20] MEDS: amLODIPine 10 MG TAB PO SCH (08:09)
[2019-06-20] MEDS: NICOTINE 14MG/24HR PATCH TRANSDERM SCH (08:09)
[2019-06-20] MEDS: ESCITALOPRAM 10 MG TAB PO SCH (08:09)
[2019-06-20] MEDS: FORMOTEROL FUMARATE 20 MCG/2 ML NEBU INHALATION SCH ×2 (08:48→19:57)
[2019-06-20] MEDS: BUDESONIDE 1 MG/2 ML NEBU INHALATION SCH ×2 (08:48→19:57)
[2019-06-20] MEDS: IPRATROPIUM-ALBUTEROL 3 ML NEB INHALATION SCH ×4 (08:48→19:57)
[2019-06-20 11:51] LABS: Glucose,Whole Blood 206 mg/dL (75-99)
[2019-06-20 16:40] LABS: Glucose,Whole Blood 202 mg/dL (75-99)
[2019-06-20] MEDS: WARFARIN 5 MG TAB PO SCH (17:24)
[2019-06-20] MEDS: guaiFENesin SYRUP 100MG/5ML 200 MG/10 ML CUP PO PRN (20:24)
[2019-06-20] MEDS: KETOROLAC 30 MG/ML 1 ML VIAL IVP PRN (20:24)
[2019-06-20 21:15] LABS: Glucose,Whole Blood 168 mg/dL (75-99)
[2019-06-20] MEDS: MELATONIN 5 MG TABLET PO SCH (21:52)
[2019-06-20] MEDS: MONTELUKAST 10 MG TAB PO SCH (21:52)
--- NOTE | 2019-06-20 22:24 | PN ---
PROGRESS NOTE DATE OF SERVICE: 06/20/2019. This 59-year-old gentleman who was admitted with COPD acute exacerbation and acute purulent ventricular bronchitis and possible pneumonia is being closely monitored at this time. Possible acute pneumonia with sepsis also suspected. No chest pain. No palpitations. No fever. EXAM: Alert and oriented x3. Pulse 91, blood pressure 121/70, respirations 16, temperature 97 degrees, pulse ox 94% on room air. HEENT: Conjunctivae normal. NECK: No JVD. CARDIOVASCULAR: S1, S2 muffled. RESPIRATORY: Breath sounds diminished in the bases. Scattered rhonchi and crackles. Expiratory wheezing also present. ABDOMEN: Soft, nontender. LEGS are no edema. No swelling. CENTRAL NERVOUS SYSTEM: No focal deficits. LAB STUDIES: WBC 26.9, hemoglobin is 12. INR is 2.6. ASSESSMENT: 1. Chronic obstructive pulmonary disease acute exacerbation with acute purulent ventricular bronchitis with possible pneumonia with failure of outpatient treatment with possible hospital acquired pneumonia with possible sepsis present on admission. 2. Hyponatremia. 3. Increased WBC. 4. Chronic obstructive pulmonary disease with acute exacerbation. 5. History of cerebrovascular accident, transient ischemic attack. 6. Hypertension. 7. History of myocardial infarction. 8. History of pneumonia. 9. History of right upper lobe fungal pneumonia, Aspergillus positive. 10.Chronic hypoxic respiratory failure on home oxygen at 2 L nasal cannula. 11.History of shingles. 12.History cerebrovascular accident with basal ganglia hemorrhage with right arm weakness. 13.Anxiety, depression, panic disorder history. 14.History of nicotine dependence. 15.History of THC usage. RECOMMENDATION AND DISCUSSION: Recommend to continue current medications, monitoring, management and symptomatic treatment. Otherwise, at this time, I recommend continue the antibiotics, bronchodilators. Continue with steroids. Continue with rest of the current medications. We will taper the steroids. Guarded prognosis because of multiple complex medical issues. Further recommendations to follow. MMODL / IJN: [id number] /
[2019-06-21] MEDS: methylPREDNISolone SOD SUCCI 40 MG/ML 1 ML VIAL IV SCH ×3 (01:39→15:19)
[2019-06-21] MEDS: HYDROcodone/APAP 7.5-325MG 1 EACH TAB PO PRN ×4 (01:39→20:02)
[2019-06-21] MEDS: PIPERACILLIN-TAZOBACTAM 3.375 GM in SODIUM CHLORIDE 0.9% 100 ML IVPB SCH ×3 (04:06→20:03)
[2019-06-21] MEDS: GABAPENTIN 400 MG CAP PO PRN ×3 (04:06→20:02)
[2019-06-21 07:14] LABS: Basophils # (A) 0.1 k/uL (0-0.2); Basophils % (A) 0 %; Eosinophils % (A) 0 %; HCT 34.5 % (39.0-53.0); HGB 11.7 gm/dL (13.0-17.5); Lymphocytes # (A) 0.1 k/uL (1.0-4.8); Lymphocytes % (A) 1 %; MCH 33.5 pg (25.0-35.0); MCHC 33.9 g/dL (31.0-37.0); MCV 98.8 fL (80.0-100.0); Macrocytosis Slight; Mean Platelet Volume 5.5; Monocytes # (A) 0.6 k/uL (0-1.0); Monocytes % (A) 3 %; Neutrophils # (A) 21.4 k/uL (1.3-7.7); Neutrophils % (A) 96 %; Platelet Count 245 k/uL (150-450); RBC 3.49 m/uL (4.30-5.90); RDW 15.2 % (11.5-15.5); WBC 22.3 k/uL (3.8-10.6)
[2019-06-21 07:26] LABS: Glucose,Whole Blood 161 mg/dL (75-99)
[2019-06-21 07:31] LABS: Prothrombin Time 50.9 sec (9.0-12.0)
[2019-06-21 07:34] LABS: African American GFR (CKD) >90 (>60 ml/min/1.73 sqM); Anion Gap 5 mmol/L; Blood Urea Nitrogen 27 mg/dL (9-20); Calcium 8.8 mg/dL (8.4-10.2); Carbon Dioxide 29 mmol/L (22-30); Chloride 105 mmol/L (98-107); Glucose 143 mg/dL (74-99); INR 5.3 (<1.2); Potassium 3.7 mmol/L (3.5-5.1); Sodium 139 mmol/L (137-145)
[2019-06-21] MEDS: NICOTINE 14MG/24HR PATCH TRANSDERM SCH (07:37)
[2019-06-21] MEDS: INSULIN ASPART (NovoLOG) 100 UNIT/ML VIAL SQ SCH ×4 (07:38→21:33)
[2019-06-21] MEDS: PANTOPRAZOLE 40 MG TABLET PO SCH (07:38)
[2019-06-21] MEDS: BUDESONIDE 1 MG/2 ML NEBU INHALATION SCH ×2 (09:15→21:30)
[2019-06-21] MEDS: IPRATROPIUM-ALBUTEROL 3 ML NEB INHALATION SCH ×4 (09:15→21:31)
[2019-06-21] MEDS: FORMOTEROL FUMARATE 20 MCG/2 ML NEBU INHALATION SCH ×2 (09:15→21:30)
[2019-06-21] MEDS: ESCITALOPRAM 10 MG TAB PO SCH (09:15)
[2019-06-21] MEDS: amLODIPine 10 MG TAB PO SCH (09:15)
[2019-06-21] MEDS: ITRACONAZOLE 100 MG CAP PO SCH (09:15)
[2019-06-21] MEDS: WARFARIN 5 MG TAB PO SCH (09:30)
[2019-06-21 12:06] LABS: Glucose,Whole Blood 132 mg/dL (75-99)
[2019-06-21] MEDS: ALPRAZolam 0.25 MG TAB PO PRN ×2 (12:22→21:33)
[2019-06-21 17:18] LABS: Glucose,Whole Blood 211 mg/dL (75-99)
[2019-06-21] MEDS ORDERED: WARFARIN 0.5 MG TAB PO ONE (18:00)
[2019-06-21] MEDS: MELATONIN 5 MG TABLET PO SCH (20:02)
[2019-06-21] MEDS: MONTELUKAST 10 MG TAB PO SCH (20:02)
[2019-06-21 20:54] LABS: Glucose,Whole Blood 171 mg/dL (75-99)
[2019-06-21] MEDS: KETOROLAC 30 MG/ML 1 ML VIAL IVP PRN (21:34)
--- NOTE | 2019-06-21 23:31 | PN ---
PROGRESS NOTE DATE OF SERVICE: 06/21/2019. REASON FOR FOLLOWUP: Fever with question of pneumonia. INTERVAL HISTORY: The patient is currently afebrile. Patient is breathing comfortably. The patient denies any chest pain. He did have some cough but not bringing up any sputum. Main symptoms remains to be pain to the left shoulder area, but no worsening, no nausea, vomiting and no diarrhea. PHYSICAL EXAMINATION: Blood pressure 142/74 with a pulse of 97, temperature 97.9. General description is a middle-aged male up in the chair in no distress. Respiratory system: Unlabored breathing with decreased breath sounds in the bases. No wheeze. Heart S1, S2. Regular rate and rhythm. Abdomen soft, no tenderness. Extremities are no edema of the feet. LABS: Hemoglobin 11.7, white count down to 22.3 with a BUN of 27, creatinine 0.52. The patient's CRP and procalcitonin level are elevated. Blood culture has been negative. DIAGNOSTIC IMPRESSION AND PLAN: Patient admitted to the hospital with sepsis. The patient did have fever and elevated white count with concern for possible pneumonia. The patient is currently on Zosyn and did have overall improvement and resolution of his fever. White count still elevated more likely because of the effect. We will try to obtain sputum to narrow down his antibiotics and continue supportive care. MMODL / IJN: [id number] /
[2019-06-22] MEDS: methylPREDNISolone SOD SUCCI 40 MG/ML 1 ML VIAL IV SCH ×3 (01:59→17:38)
[2019-06-22] MEDS: HYDROcodone/APAP 7.5-325MG 1 EACH TAB PO PRN ×2 (03:09→13:55)
[2019-06-22] MEDS: PIPERACILLIN-TAZOBACTAM 3.375 GM in SODIUM CHLORIDE 0.9% 100 ML IVPB SCH ×3 (04:25→20:46)
[2019-06-22] MEDS: guaiFENesin SYRUP 100MG/5ML 200 MG/10 ML CUP PO PRN ×2 (04:28→18:53)
[2019-06-22 06:52] LABS: Glucose,Whole Blood 209 mg/dL (75-99)
[2019-06-22] MEDS: FORMOTEROL FUMARATE 20 MCG/2 ML NEBU INHALATION SCH ×2 (06:58→20:57)
[2019-06-22] MEDS: BUDESONIDE 1 MG/2 ML NEBU INHALATION SCH ×2 (06:58→20:57)
[2019-06-22] MEDS: IPRATROPIUM-ALBUTEROL 3 ML NEB INHALATION SCH ×4 (06:58→20:57)
[2019-06-22] MEDS: INSULIN ASPART (NovoLOG) 100 UNIT/ML VIAL SQ SCH ×4 (08:00→20:47)
[2019-06-22] MEDS: PANTOPRAZOLE 40 MG TABLET PO SCH (08:01)
[2019-06-22] MEDS: NICOTINE 14MG/24HR PATCH TRANSDERM SCH (08:01)
[2019-06-22] MEDS: amLODIPine 10 MG TAB PO SCH (08:01)
[2019-06-22] MEDS: ITRACONAZOLE 100 MG CAP PO SCH (08:01)
[2019-06-22] MEDS: ESCITALOPRAM 10 MG TAB PO SCH (08:01)
--- NOTE | 2019-06-22 09:27 | PN ---
PROGRESS NOTE DATE OF SERVICE: 06/21/2019. This 59-year-old gentleman who was admitted with COPD acute exacerbation with acute purulent tracheobronchitis and as well as pneumonia is being closely monitored. No chest pain. No palpitations. No fever. The most recent chest x-ray was personally reviewed by me and showed significant improvement. No chest pain. No palpitations. No fever. EXAM: Alert and oriented x3. Pulse is 97. Blood pressure 140/77, respiration 20, temperature 97.9, pulse ox 97% on 2 L. HEENT: Conjunctivae normal. NECK: No jugular venous distention. CARDIOVASCULAR: S1, S2 muffled. RESPIRATORY SYSTEM: Breath sounds diminished at the bases. Bilateral scattered rhonchi and crackles. ABDOMEN is soft, nontender. LEGS are no edema. No swelling. CENTRAL NERVOUS SYSTEM: No focal deficits. LAB STUDIES: WBC 22.3, hemoglobin 11.1. INR 5.3. ASSESSMENT: 1. Chronic obstructive pulmonary disease acute exacerbation with acute purulent tracheobronchitis versus possible bronchopneumonia with failure of outpatient treatment with possible hospital-acquired pneumonia with possible sepsis, present on admission. 2. Hyponatremia. 3. Increased WBC. 4. Coumadin coagulopathy. 5. Chronic obstructive pulmonary disease, acute exacerbation. 6. History of cerebrovascular accident, transient ischemic attack. 7. Hypertension. 8. History of myocardial infarction. 9. History of pneumonia. 10.History of right upper lobe fungal pneumonia, Aspergillus positive. 11.Chronic hypoxic respiratory failure on home oxygen at 2 L nasal cannula. 12.History of shingles. 13.History of cerebrovascular accident with basal ganglia hemorrhage with right arm weakness. 14.Anxiety, depression, panic disorder history. 15.History of nicotine dependence. 16.History of THC usage. RECOMMENDATIONS AND DISCUSSION: Recommend to continue current medications, continue with monitoring, symptomatic treatment. Otherwise, at this time, we will monitor the patient closely. Otherwise, guarded prognosis because of multiple complex medical issues. Further recommendations to follow. MMODL / IJN: [id number] /
[2019-06-22 09:57] LABS: INR 7.4 (<1.2)
[2019-06-22 12:08] LABS: Glucose,Whole Blood 192 mg/dL (75-99)
[2019-06-22 17:21] LABS: Glucose,Whole Blood 121 mg/dL (75-99)
[2019-06-22] MEDS ORDERED: WARFARIN 0.5 MG TAB PO ONE (18:00)
[2019-06-22 20:30] LABS: Glucose,Whole Blood 122 mg/dL (75-99)
[2019-06-22] MEDS: MELATONIN 5 MG TABLET PO SCH (20:46)
[2019-06-22] MEDS: GABAPENTIN 400 MG CAP PO PRN (20:46)
[2019-06-22] MEDS: MONTELUKAST 10 MG TAB PO SCH (20:46)
[2019-06-22] MEDS: KETOROLAC 30 MG/ML 1 ML VIAL IVP PRN (20:46)
[2019-06-22] MEDS: ALPRAZolam 0.25 MG TAB PO PRN (20:46)
--- NOTE | 2019-06-22 23:20 | PN ---
PROGRESS NOTE DATE OF SERVICE: 06/22/2019. REASON FOR FOLLOWUP: Pneumonia. INTERVAL HISTORY: The patient is currently afebrile. Patient has been breathing comfortably. The patient did have a cough, however, not bringing up any sputum. Denies having any nausea or vomiting. The patient has been complaining of pain mostly in the left shoulder area. EXAMINATION: Blood pressure is 130/61 with a pulse of 90, temperature 98.4. He is 97% on 2 L nasal cannula. General description is a middle-age male. Lying in bed in no distress. Respiratory system: Unlabored breathing. Decreased breath sounds at the base. No wheeze. Heart S1, S2. Regular rate and rhythm. Abdomen soft. No tenderness. Extremities edema of the feet. LABS: INR is 7.4, white count 22.3 as of yesterday, not repeated today. DIAGNOSTIC IMPRESSION AND PLAN: Patient admitted to the hospital with fever and elevated white count with concern for possible sepsis and possible pneumonia. The patient is currently on Zosyn and did have resolution of his fever. White count still elevated, more likely because of steroid effect. Try to obtain a sputum. May benefit from ortho evaluation, especially with his persistent left shoulder pain and continue supportive care. MMODL / IJN: [id number] /
[2019-06-23] MEDS: methylPREDNISolone SOD SUCCI 40 MG/ML 1 ML VIAL IV SCH (00:11)
[2019-06-23] MEDS: GABAPENTIN 400 MG CAP PO PRN (03:59)
[2019-06-23] MEDS: HYDROcodone/APAP 7.5-325MG 1 EACH TAB PO PRN ×3 (03:59→21:37)
[2019-06-23] MEDS: PIPERACILLIN-TAZOBACTAM 3.375 GM in SODIUM CHLORIDE 0.9% 100 ML IVPB SCH ×3 (04:00→21:36)
[2019-06-23 07:04] LABS: Glucose,Whole Blood 140 mg/dL (75-99)
[2019-06-23 07:25] LABS: Basophils # (A) 0.2 k/uL (0-0.2); Basophils % (A) 1 %; Eosinophils # (A) 0.1 k/uL (0-0.7); Eosinophils % (A) 1 %; HCT 33.9 % (39.0-53.0); HGB 11.3 gm/dL (13.0-17.5); Lymphocytes # (A) 0.1 k/uL (1.0-4.8); Lymphocytes % (A) 1 %; MCH 33.2 pg (25.0-35.0); MCHC 33.3 g/dL (31.0-37.0); MCV 99.7 fL (80.0-100.0); Macrocytosis Slight; Mean Platelet Volume 5.4; Monocytes # (A) 0.5 k/uL (0-1.0); Monocytes % (A) 3 %; Neutrophils % (A) 94 %; Platelet Count 273 k/uL (150-450); RDW 15.3 % (11.5-15.5); WBC 15.9 k/uL (3.8-10.6)
[2019-06-23] MEDS: FORMOTEROL FUMARATE 20 MCG/2 ML NEBU INHALATION SCH ×2 (07:26→20:39)
[2019-06-23] MEDS: IPRATROPIUM-ALBUTEROL 3 ML NEB INHALATION SCH ×4 (07:26→20:39)
[2019-06-23] MEDS: BUDESONIDE 1 MG/2 ML NEBU INHALATION SCH ×2 (07:26→20:39)
[2019-06-23] MEDS: NICOTINE 14MG/24HR PATCH TRANSDERM SCH (07:27)
[2019-06-23] MEDS: PANTOPRAZOLE 40 MG TABLET PO SCH (07:27)
[2019-06-23] MEDS: INSULIN ASPART (NovoLOG) 100 UNIT/ML VIAL SQ SCH ×4 (07:27→21:06)
[2019-06-23] MEDS: predniSONE 20 MG TAB PO SCH (07:27)
[2019-06-23] MEDS: amLODIPine 10 MG TAB PO SCH (07:27)
[2019-06-23] MEDS: ITRACONAZOLE 100 MG CAP PO SCH (07:28)
[2019-06-23] MEDS: ESCITALOPRAM 10 MG TAB PO SCH (07:28)
[2019-06-23 07:52] LABS: Prothrombin Time 55.5 sec (9.0-12.0)
[2019-06-23 07:58] LABS: African American GFR (CKD) >90 (>60 ml/min/1.73 sqM); Anion Gap 4 mmol/L; Blood Urea Nitrogen 19 mg/dL (9-20); Calcium 8.5 mg/dL (8.4-10.2); Carbon Dioxide 32 mmol/L (22-30); Chloride 101 mmol/L (98-107); Glucose 130 mg/dL (74-99); Potassium 3.9 mmol/L (3.5-5.1); Sodium 137 mmol/L (137-145)
[2019-06-23 08:13] LABS: INR 5.7 (<1.2)
--- NOTE | 2019-06-23 08:32 | P.PN ---
Subjective Progress Note Date: 06/22/19 Principal diagnosis: This is a 59-year-old male who was recently admitted with increasing shortness of breath with cough and sputum and reports fever and is being closely monitored . Patient states that he has been having multiple falls and will be followed by PT/OT. IV antibiotics were initiated and infectious disease was consulted. Patient is being maintained on bronchodilators as well as IV steroids at this time. No acute overnight issues. Currently patient denies any chest pain or palpitations. Patient states that his shortness of breath has slightly improved but continues to have pain in the shoulder at this time. X-rays were done which were unremarkable. Patient denies any nausea or vomiting and is tolerating diet. Will continue to monitor closely. Guarded prognosis. 06/22/2019 Patient is sitting up in bed in no acute distress stating that his shoulder pain is somewhat better with a sling that has been applied but is still stating that he has generalized pain all over that is not being relieved. Patient states that his breathing is somewhat improved. Patient denies any chest pain or palpitations at this time. Patient is afebrile. Patient denies any nausea or vomiting and is tolerating diet. Infectious disease is following. Patient's INR today was 7.4 and is being closely monitored. Will repeat a.m. labs. Patient denies any bleeding at this time. An orthopedic consult was placed for left shoulder pain and is currently pending. Will continue to monitor closely. Guarded prognosis. Objective - Vital Signs Vital signs: Vital Signs Temp 98.1 F 06/22/19 19:53 Pulse 96 06/22/19 21:28 Resp 18 06/22/19 20:45 BP 144/79 06/22/19 19:53 Pulse Ox 97 06/22/19 19:53 Intake & Output 06/22/19 06/22/19 06/23/19 06:59 18:59 06:59 Intake Total 296 240 Balance 296 240 Intake: Oral 296 240 Other: Voiding Method Toilet Toilet Urinal # Voids 1 2 2 # Bowel Movements 1 - Exam Gen: This is a 59-year-old male lying in bed and appears to be in no acute distress. Vital Signs are stable. Temp is 98.4F, pulse is 92, respirations are 16, blood pressure is 30/61, oxygen saturation is 97% on 2 L via nasal cannula. Patient is O2 dependent at home. HEENT: Head is atraumatic, normocephalic. Left Pupil equal, round. Sclerae is anicteric. Right occipital prosthesis noted NECK: Supple. No JVD. No lymphadenopathy. No thyromegaly. LUNGS: Diminished breath sounds at the bases with scattered rhonchi and crackles noted throughout. No intercostal retractions. HEART: S1, S2 are muffled. ABDOMEN: Soft. Obese. Bowel sounds are present. No masses. No tenderness. EXTREMITIES: No pedal edema. No calf tenderness. Left shoulder discomfort and pain upon palpation. Swelling noted of the left upper extremity NEUROLOGICAL: Patient is awake, alert and oriented x3. Cranial nerves 2 through 12 are grossly intact. - Labs CBC & Chem 7: 06/23/19 06:54 06/23/19 06:54 Labs: Abnormal Lab Results - Last 24 Hours (Table) 06/22/19 06/22/19 06/22/19 Range/Units 06:39 06:41 11:57 PT 72.0 H (9.0-12.0) sec INR 7.4 H* (<1.2) POC Glucose (mg/dL) 209 H 192 H (75-99) mg/dL 06/22/19 06/22/19 Range/Units 17:19 20:29 PT (9.0-12.0) sec INR (<1.2) POC Glucose (mg/dL) 121 H 122 H (75-99) mg/dL Microbiology - Last 24 Hours (Table) 06/18/19 12:20 Blood Culture - Preliminary Blood No Growth after 96 hours Assessment and Plan Assessment: Chronic obstructive pulmonary disease acute exacerbation with acute purulent tracheobronchitis versus possible broncho-pneumonia with failure of outpatient treatment, possible hospital-acquired pneumonia with possible sepsis, present on admission Hyponatremia Increased WBC Coumadin coagulopathy Left shoulder pain, possibly chronic Chronic obstructive pulmonary disease with acute exacerbation History of CVA/TIA Hypertension History of myocardial infarction history of pneumonia history of right upper lobe fungal pneumonia, Aspergillus positive Chronic hypoxic respiratory failure on home O2 at 2 L via nasal cannula history of shingles History of CVA with basal ganglial hemorrhage with right arm weakness Anxiety, depression, panic disorder history History of nicotine dependence History of THC usage Recommendations and discussion: Recommend to continue current medications, management, and symptomatic treatment. Infectious disease is following. Will continue on bronchodilators and steroids will be transitioned oral prednisone. Patient's INR is currently 7.4 and will continue to monitor closely. Will repeat a.m. labs. Orthopedic consult was placed for left shoulder pain appreciate recommendations. Consult is pending at this time. PT/OT following. Due to multiple complex medical issues prognosis is extremely guarded. Further recommendations to follow. Possible discharge in 24-48 hours.
[2019-06-23] MEDS: ALPRAZolam 0.25 MG TAB PO PRN ×2 (10:15→21:37)
[2019-06-23] MEDS: guaiFENesin SYRUP 100MG/5ML 200 MG/10 ML CUP PO PRN (10:15)
--- NOTE | 2019-06-23 10:36 | P.CNOR ---
History of Present Illness - HPI Consult date: 06/23/19 Consult reason: joint pain (Left shoulder, left hip/leg) History of present illness: This is a 59-year-old gentleman who is known to our service with history of avascular necrosis to the left humeral head. The patient was seen in our office last week for follow-up. He has been to the pain clinic and a block was scheduled for last week. The block can be canceled secondary to the patient developing a DVT and PE. The patient is currently on Coumadin. He continues to have severe left shoulder pain which is not well controlled in the outpatient setting. The pain clinic is not prescribing oral pain medication. He has been given lidocaine patches. He was offered a cortisone injection in the clinic last week which he declined. He now states that he may possibly consider a cortisone injection. His INR was elevated to 7.4. He is currently at 5.7 at this time. White blood cell count is 15.9. He is afebrile. 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 Last Myocardial Infarction Date:: unknown History of Any Multi-Drug Resistant Organisms: None Reported Past Surgical History: Orthopedic Surgery Additional Past Surgical History / Comment(s): metal plate left hand middle finger, right eye enucleation. Past Anesthesia/Blood Transfusion Reactions: No Reported Reaction Past Psychological History: Anxiety, Depression, Panic Disorder Additional Psychological History / Comment(s): Lives in apartment, 17 steps to climb.Has a nebulizer/oxygen. 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 Smoking Status: Smoker, current status unknown Past Alcohol Use History: Occasional Additional Past Alcohol Use History / Comment(s): STARTED SMOKING 1976 1 PPD- QUIT 6 MONTHS AGO, PT STATED HE DRINKS 2 BEER a day Past Drug Use History: Marijuana Additional Drug Use History / Comment(s): Pt states he uses marajuana at times. - Past Family History Mother Family Medical History: Cancer Additional Family Medical History / Comment(s): Pt believes his Mom of Kidney Cancer Father Family Medical History: Cancer, COPD, Respiratory Disorder Additional Family Medical History / Comment(s): Melanoma Medications and Allergies Home Medications Medication Instructions Recorded Confirmed Type Melatonin 5 mg PO HS 11/14/18 06/18/19 History Montelukast [Singulair] 10 mg PO HS #30 tab 11/17/18 06/18/19 Rx Fluticasone/Salmeterol 1 puff INHALATION RT-BID 04/29/19 06/18/19 History [Fluticasone-Salmeterol 232-14] Gabapentin 800 mg PO Q6H PRN 04/29/19 06/18/19 History amLODIPine [Norvasc] 10 mg PO DAILY 04/29/19 06/18/19 History Albuterol Inhaler [Ventolin Hfa 1 - 2 puff INHALATION RT-Q6H PRN 05/11/19 History Inhaler] Escitalopram [Lexapro] 10 mg PO DAILY #15 tab 05/15/19 06/18/19 Rx Famotidine [Pepcid AC] 10 mg PO DAILY 06/04/19 06/18/19 History Nicotine 14Mg/24Hr Patch [Habitrol] 1 patch TRANSDERM DAILY 06/04/19 06/18/19 History Warfarin [Coumadin] 5 mg PO DAILY #20 tab 06/11/19 06/18/19 Rx Amoxic-Pot Clav 875-125Mg 1 tab PO Q12HR 06/13/19 06/18/19 History [Augmentin 875-125] Ipratropium-Albuterol Nebulize 3 ml INHALATION RT-QID 06/13/19 06/18/19 History [Duoneb 0.5 mg-3 mg/3 ml Soln] Itraconazole [Sporanox] 200 mg PO DAILY 06/13/19 06/18/19 History ALPRAZolam [Xanax] 0.25 mg PO TID PRN #30 tab 06/15/19 06/18/19 Rx predniSONE See Taper PO DIRECTED 06/18/19 06/18/19 History Allergies Allergy/AdvReac Type Severity Reaction Status Date / Time peanut [Peanut Butter] AdvReac Nausea & Verified 06/18/19 12:54 Vomiting & Diarrhea Physical Examination This is a 59-year-old gentleman who appears older than stated age. He is in no acute distress. He is sitting up at the edge of the bed. Exam of the head neck reveal no new findings. Evidence of right eye deformity. Exam the upper extremities reveals the left arm in a sling. There is pain about the shoulder with palpation. He has full finger motion without difficulty or pain. He has fairly good motion to the right upper extremity without difficulty. Neurovascular status the upper extremities is intact. Exam of the lower extremities reveals no obvious deformity. Straight leg raise is positive to the left lower extremity, producing pain to the left hip and buttock. He has full foot and ankle motion bilaterally. There is slight weakness with dorsiflexion of the great toe against resistance on the left. Jonh rovascular status to the lower extremities is intact. Results X-rays of the left shoulder reveal evidence of osteonecrosis. The humeral head is elevated slightly consistent with chronic rotator cuff pathology. No acute fractures identified. Pelvis and left hip x-rays reveal no acute bony abnormality. There is mild degenerative arthritis to the hip. No acute fractures identified. - Labs Labs: Abnormal Lab Results - Last 24 Hours (Table) 06/22/19 06/22/19 06/22/19 Range/Units 11:57 17:19 20:29 WBC (3.8-10.6) k/uL RBC (4.30-5.90) m/uL Hgb (13.0-17.5) gm/dL Hct (39.0-53.0) % Neutrophils # (1.3-7.7) k/uL Lymphocytes # (1.0-4.8) k/uL PT (9.0-12.0) sec INR (<1.2) Carbon Dioxide (22-30) mmol/L Creatinine (0.66-1.25) mg/dL Glucose (74-99) mg/dL POC Glucose (mg/dL) 192 H 121 H 122 H (75-99) mg/dL 06/23/19 06/23/19 06/23/19 Range/Units 06:52 06:54 06:54 WBC 15.9 H (3.8-10.6) k/uL RBC 3.40 L (4.30-5.90) m/uL Hgb 11.3 L (13.0-17.5) gm/dL Hct 33.9 L (39.0-53.0) % Neutrophils # 15.0 H (1.3-7.7) k/uL Lymphocytes # 0.1 L (1.0-4.8) k/uL PT 55.5 H (9.0-12.0) sec INR 5.7 H* (<1.2) Carbon Dioxide (22-30) mmol/L Creatinine (0.66-1.25) mg/dL Glucose (74-99) mg/dL POC Glucose (mg/dL) 140 H (75-99) mg/dL 06/23/19 Range/Units 06:54 WBC (3.8-10.6) k/uL RBC (4.30-5.90) m/uL Hgb (13.0-17.5) gm/dL Hct (39.0-53.0) % Neutrophils # (1.3-7.7) k/uL Lymphocytes # (1.0-4.8) k/uL PT (9.0-12.0) sec INR (<1.2) Carbon Dioxide 32 H (22-30) mmol/L Creatinine 0.54 L (0.66-1.25) mg/dL Glucose 130 H (74-99) mg/dL POC Glucose (mg/dL) (75-99) mg/dL Microbiology - Last 24 Hours (Table) 06/18/19 12:20 Blood Culture - Preliminary Blood No Growth after 96 hours H & H 06/18/19 06/19/19 06/20/19 Range/Units 12:20 05:33 06:22 Hgb 14.6 12.4 L 12.0 L (13.0-17.5) gm/dL Hct 44.1 35.8 L 35.2 L (39.0-53.0) % 06/21/19 06/23/19 Range/Units 06:41 06:54 Hgb 11.7 L 11.3 L (13.0-17.5) gm/dL Hct 34.5 L 33.9 L (39.0-53.0) % Coagulation 06/18/19 06/19/19 06/20/19 Range/Units 12:20 05:33 06:22 INR 1.2 H 1.9 H 2.6 H (<1.2) 06/21/19 06/22/19 06/23/19 Range/Units 06:41 06:41 06:54 INR 5.3 H* 7.4 H* 5.7 H* (<1.2) Result Diagrams: 06/23/19 06:54 06/23/19 06:54 Assessment and Plan (1) Chronic pain disorder Current Visit: Yes Status: Acute Code(s): G89.4 - CHRONIC PAIN SYNDROME SNOMED Code(s): 595070662 (2) DVT (deep venous thrombosis) Current Visit: Yes Status: Acute Code(s): I82.409 - ACUTE EMBOLISM AND THOMBOS UNSP DEEP VN UNSP LOWER EXTREMITY SNOMED Code(s): 822017117 (3) Dyspnea Current Visit: No Status: Acute Code(s): R06.00 - DYSPNEA, UNSPECIFIED SNOMED Code(s): 296576066 (4) Pulmonary embolism Current Visit: No Status: Acute Code(s): I26.99 - OTHER PULMONARY EMBOLISM WITHOUT ACUTE COR PULMONALE SNOMED Code(s): 67947604 (5) Smoker Current Visit: No Status: Acute Code(s): F17.200 - NICOTINE DEPENDENCE, UNSPECIFIED, UNCOMPLICATED SNOMED Code(s): 58140506 Plan: The clinical and x-ray findings are discussed with the patient. We again discussed the possibility of a cortisone injection to left shoulder. He states that he would consider it. However, at this time his INR is 5.7. I will order the medication and check with internal medicine as well as repeat labs in the morning. He is aware that if his INR is above a safe level we will not be able to get the injection.
[2019-06-23] MEDS ORDERED: PHYTONADIONE ORAL 5 MG/5 ML ORAL.SYRG PO STA (10:55)
[2019-06-23 11:58] LABS: Glucose,Whole Blood 129 mg/dL (75-99)
[2019-06-23 17:16] LABS: Glucose,Whole Blood 130 mg/dL (75-99)
[2019-06-23] MEDS ORDERED: WARFARIN 0.5 MG TAB PO ONE (18:00)
[2019-06-23 20:48] LABS: Glucose,Whole Blood 110 mg/dL (75-99)
[2019-06-23] MEDS: MELATONIN 5 MG TABLET PO SCH (21:37)
[2019-06-23] MEDS: MONTELUKAST 10 MG TAB PO SCH (21:37)
--- NOTE | 2019-06-23 22:52 | P.PN ---
Subjective Progress Note Date: 06/23/19 Principal diagnosis: This is a 59-year-old male who was recently admitted with increasing shortness of breath with cough and sputum and reports fever and is being closely monitored . Patient states that he has been having multiple falls and will be followed by PT/OT. IV antibiotics were initiated and infectious disease was consulted. Patient is being maintained on bronchodilators as well as IV steroids at this time. No acute overnight issues. Currently patient denies any chest pain or palpitations. Patient states that his shortness of breath has slightly improved but continues to have pain in the shoulder at this time. X-rays were done which were unremarkable. Patient denies any nausea or vomiting and is tolerating diet. Will continue to monitor closely. Guarded prognosis. 06/22/2019 Patient is sitting up in bed in no acute distress stating that his shoulder pain is somewhat better with a sling that has been applied but is still stating that he has generalized pain all over that is not being relieved. Patient states that his breathing is somewhat improved. Patient denies any chest pain or palpitations at this time. Patient is afebrile. Patient denies any nausea or vomiting and is tolerating diet. Infectious disease is following. Patient's INR today was 7.4 and is being closely monitored. Will repeat a.m. labs. Patient denies any bleeding at this time. An orthopedic consult was placed for left shoulder pain and is currently pending. Will continue to monitor closely. Guarded prognosis. 06/23/2019 Patient is sitting up in bed in no acute distress. Patient was seen by orthopedics and may be receiving a steroid injection in the left shoulder once the INR level is more therapeutic. INR today was 5.7 and will repeat lab in the am. No active bleeding noted per the patient. Patient was given vitamin K today. Patient states that he is nervous about getting an injection as they are painful and he has had them in the past. Currently patient denies any chest pain, shortness of breath, or palpitations at this time. Patient is afebrile. Patient denies any nausea or vomiting and is tolerating diet. Will continue to monitor closely. Objective - Vital Signs Vital signs: Vital Signs Temp 97.9 F 06/23/19 14:53 Pulse 92 06/23/19 21:27 Resp 18 06/23/19 14:53 BP 133/65 06/23/19 14:53 Pulse Ox 96 06/23/19 17:11 Intake & Output 06/23/19 06/23/19 06/24/19 06:59 18:59 06:59 Intake Total 1100 Balance 1100 Intake: Oral 1100 Other: Voiding Method Toilet Urinal # Voids 2 2 # Bowel Movements 1 - Exam Gen: This is a 59-year-old male lying in bed and appears to be in no acute distress. Vital Signs are stable. Temp is 97.9F, pulse is 98, respirations are 18, blood pressure is 133/65, oxygen saturation is 94% on 2 L via nasal cannula. Patient is O2 dependent at home. HEENT: Head is atraumatic, normocephalic. Left Pupil equal, round. Sclerae is anicteric. Right occipital prosthesis noted NECK: Supple. No JVD. No lymphadenopathy. No thyromegaly. LUNGS: Diminished breath sounds at the bases with scattered rhonchi noted throughout. No intercostal retractions. HEART: S1, S2 are muffled. ABDOMEN: Soft. Obese. Bowel sounds are present. No masses. No tenderness. EXTREMITIES: No pedal edema. No calf tenderness. Left shoulder discomfort and pain upon palpation. Sling noted of the left upper extremity NEUROLOGICAL: Patient is awake, alert and oriented x3. Cranial nerves 2 through 12 are grossly intact. - Labs CBC & Chem 7: 06/23/19 06:54 06/23/19 06:54 Labs: Abnormal Lab Results - Last 24 Hours (Table) 06/23/19 06/23/19 06/23/19 Range/Units 06:52 06:54 06:54 WBC 15.9 H (3.8-10.6) k/uL RBC 3.40 L (4.30-5.90) m/uL Hgb 11.3 L (13.0-17.5) gm/dL Hct 33.9 L (39.0-53.0) % Neutrophils # 15.0 H (1.3-7.7) k/uL Lymphocytes # 0.1 L (1.0-4.8) k/uL PT 55.5 H (9.0-12.0) sec INR 5.7 H* (<1.2) Carbon Dioxide (22-30) mmol/L Creatinine (0.66-1.25) mg/dL Glucose (74-99) mg/dL POC Glucose (mg/dL) 140 H (75-99) mg/dL 06/23/19 06/23/19 06/23/19 Range/Units 06:54 11:46 17:05 WBC (3.8-10.6) k/uL RBC (4.30-5.90) m/uL Hgb (13.0-17.5) gm/dL Hct (39.0-53.0) % Neutrophils # (1.3-7.7) k/uL Lymphocytes # (1.0-4.8) k/uL PT (9.0-12.0) sec INR (<1.2) Carbon Dioxide 32 H (22-30) mmol/L Creatinine 0.54 L (0.66-1.25) mg/dL Glucose 130 H (74-99) mg/dL POC Glucose (mg/dL) 129 H 130 H (75-99) mg/dL 06/23/19 Range/Units 20:36 WBC (3.8-10.6) k/uL RBC (4.30-5.90) m/uL Hgb (13.0-17.5) gm/dL Hct (39.0-53.0) % Neutrophils # (1.3-7.7) k/uL Lymphocytes # (1.0-4.8) k/uL PT (9.0-12.0) sec INR (<1.2) Carbon Dioxide (22-30) mmol/L Creatinine (0.66-1.25) mg/dL Glucose (74-99) mg/dL POC Glucose (mg/dL) 110 H (75-99) mg/dL Microbiology - Last 24 Hours (Table) 06/18/19 12:20 Blood Culture - Preliminary Blood No Growth after 120 hours Assessment and Plan Assessment: Chronic obstructive pulmonary disease acute exacerbation with acute purulent tracheobronchitis versus possible broncho-pneumonia with failure of outpatient treatment, possible hospital-acquired pneumonia with possible sepsis, present on admission Hyponatremia Increased WBC Coumadin coagulopathy Left shoulder pain, possibly chronic Chronic obstructive pulmonary disease with acute exacerbation History of CVA/TIA Hypertension History of myocardial infarction history of pneumonia history of right upper lobe fungal pneumonia, Aspergillus positive Chronic hypoxic respiratory failure on home O2 at 2 L via nasal cannula history of shingles History of CVA with basal ganglial hemorrhage with right arm weakness Anxiety, depression, panic disorder history History of nicotine dependence History of THC usage Recommendations and discussion: Recommend to continue current medications, management, and symptomatic treatment. Infectious disease is following. Will continue on bronchodilators and steroids at this time. Patient's INR is currently 5.7 and given oral vitamin K . Will repeat a.m. labs. Ortho is following and may be giving a cortisone injection in the left shoulder if INR is within normal limits. PT/OT following. Due to multiple complex medical issues prognosis is extremely guarded. Further recommendations to follow. Possible discharge in 24 hours.
--- NOTE | 2019-06-23 22:55 | PN ---
PROGRESS NOTE DATE OF SERVICE: 06/23/2019. REASON FOR FOLLOWUP: Fever, pneumonia. INTERVAL HISTORY: The patient is currently afebrile. The patient has been breathing comfortably. He continues to have cough, not bringing up any sputum. No chest pain. No nausea, vomiting. No abdominal pain. He continued to complain of pain to the left shoulder area. PHYSICAL EXAMINATION: Blood pressure 133/55 with a pulse of 98, temperature 97.9. He is 94% on room air. General description is a middle-aged male lying in bed in no distress. Respiratory system: Unlabored breathing, decreased breath sounds in the bases. No wheeze. Heart S1, S2. Regular rate and rhythm. Abdomen soft, no tenderness. LABS: Hemoglobin is 11.1, white count 15.9, BUN of 19, creatinine 0.54. Blood culture has been negative. DIAGNOSTIC IMPRESSION AND PLAN: Patient admitted to the hospital with a fever and elevated white count with concern for possible pneumonia. So far, his fever has resolved and white count elevated more likely effect. Currently on Zosyn to continue transition to oral antibiotics on discharge. Continue supportive care. MMODL / IJN: [id number] /
[2019-06-24] MEDS: KETOROLAC 30 MG/ML 1 ML VIAL IVP PRN (00:36)
[2019-06-24] MEDS: GABAPENTIN 400 MG CAP PO PRN (00:36)
[2019-06-24] MEDS: ALPRAZolam 0.25 MG TAB PO PRN ×2 (05:16→13:37)
[2019-06-24] MEDS: HYDROcodone/APAP 7.5-325MG 1 EACH TAB PO PRN ×2 (05:16→13:38)
[2019-06-24] MEDS: PIPERACILLIN-TAZOBACTAM 3.375 GM in SODIUM CHLORIDE 0.9% 100 ML IVPB SCH ×2 (05:16→12:08)
[2019-06-24 05:19] VITALS: RESP 16
[2019-06-24 07:11] LABS: Glucose,Whole Blood 144 mg/dL (75-99)
[2019-06-24] MEDS: BUDESONIDE 1 MG/2 ML NEBU INHALATION SCH (07:26)
[2019-06-24] MEDS: IPRATROPIUM-ALBUTEROL 3 ML NEB INHALATION SCH ×2 (07:26→11:20)
[2019-06-24] MEDS: FORMOTEROL FUMARATE 20 MCG/2 ML NEBU INHALATION SCH (07:26)
[2019-06-24] MEDS: predniSONE 20 MG TAB PO SCH (07:46)
[2019-06-24] MEDS: NICOTINE 14MG/24HR PATCH TRANSDERM SCH (07:46)
[2019-06-24] MEDS: INSULIN ASPART (NovoLOG) 100 UNIT/ML VIAL SQ SCH ×2 (07:46→11:54)
[2019-06-24] MEDS: PANTOPRAZOLE 40 MG TABLET PO SCH (07:46)
[2019-06-24] MEDS: amLODIPine 10 MG TAB PO SCH (07:46)
[2019-06-24] MEDS: ITRACONAZOLE 100 MG CAP PO SCH (07:47)
[2019-06-24] MEDS: ESCITALOPRAM 10 MG TAB PO SCH (07:47)
[2019-06-24] MEDS ORDERED: LIDOCAINE 2% INJ 20 MG/ML (20 ML MDV) SQ ONE (08:00)
[2019-06-24] MEDS ORDERED: methylPREDNISolone ACETATE 40 MG/ML 1 ML VIAL INTRAARTIC ONE (08:00)
[2019-06-24 08:16] VITALS: BP 123/64; TEMP 97.7
[2019-06-24 08:35] LABS: INR 1.9 (<1.2); Prothrombin Time 18.3 sec (9.0-12.0)
--- NOTE | 2019-06-24 11:09 | P.PN ---
Subjective Progress Note Date: 06/24/19 Principal diagnosis: Avascular necrosis left humeral head. Multiple medical comorbidities. This is a 59-year-old male who we are following regarding his avascular necrosis of the humeral head and degenerative disease of the glenohumeral joint. The patient has multiple medical comorbidities and is not considered a surgical candidate at this time. He has chronic pain to the left shoulder. He is currently in with pneumonia, DVT and pulmonary embolism. We're consulted for or thopedic follow-up of the left shoulder. The patient on the past several occasions has declined a cortisone injection. He currently would like to consider an injection. Objective - Vital Signs Vital signs: Vital Signs Temp 97.7 F 06/24/19 07:25 Pulse 90 06/24/19 07:47 Resp 16 06/24/19 07:25 BP 123/64 06/24/19 07:25 Pulse Ox 96 06/24/19 07:25 Intake & Output 06/23/19 06/24/19 06/24/19 18:59 06:59 18:59 Intake Total 1100 350 Balance 1100 350 Intake: Oral 1100 350 Other: Voiding Method Toilet Urinal # Voids 2 1 - Exam This is a 59-year-old gentleman in no acute distress. He is alert and oriented 3. Exam of left shoulder reveals significant limitation in movement. He has active forward flexion to about 30 and abduction to about 30. There is significant pain with any motion of the shoulder passively. He has full elbow, wrist and finger motion without difficulty or pain. Neurovascular status to the upper extremities intact. - Labs CBC & Chem 7: 06/23/19 06:54 06/23/19 06:54 Labs: Abnormal Lab Results - Last 24 Hours (Table) 06/23/19 06/23/19 06/23/19 Range/Units 11:46 17:05 20:36 PT (9.0-12.0) sec INR (<1.2) POC Glucose (mg/dL) 129 H 130 H 110 H (75-99) mg/dL 06/24/19 06/24/19 Range/Units 07:09 07:12 PT 18.3 H (9.0-12.0) sec INR 1.9 H (<1.2) POC Glucose (mg/dL) 144 H (75-99) mg/dL Microbiology - Last 24 Hours (Table) 06/18/19 12:20 Blood Culture - Preliminary Blood No Growth after 120 hours Assessment and Plan (1) Chronic pain disorder Current Visit: Yes Status: Acute Code(s): G89.4 - CHRONIC PAIN SYNDROME SN OMED Code(s): 311686486 (2) DVT (deep venous thrombosis) Current Visit: Yes Status: Acute Code(s): I82.409 - ACUTE EMBOLISM AND THOMBOS UNSP DEEP VN UNSP LOWER EXTREMITY SNOMED Code(s): 146463475 (3) Dyspnea Current Visit: No Status: Acute Code(s): R06.00 - DYSPNEA, UNSPECIFIED SNOMED Code(s): 352481429 (4) Pulmonary embolism Current Visit: No Status: Acute Code(s): I26.99 - OTHER PULMONARY EMBOLISM WITHOUT ACUTE COR PULMONALE SNOMED Code(s): 04831350 (5) Smoker Current Visit: No Status: Acute Code(s): F17.200 - NICOTINE DEPENDENCE, UNSPECIFIED, UNCOMPLICATED SNOMED Code(s): 06792906 Plan: The clinical findings are discussed with the patient. We again discussed the possibility of a cortisone injection to left shoulder. The patient is electing to proceed with an injection today. With his history of sepsis and pneumonia I discussed the patient that it would be jhaveri to first attempt to aspirate the shoulder to be sure that there is no infection in the shoulder. The patient elects to proceed with aspiration and injection today. Procedure: The shoulder is anesthetized with 5 mL of 2% lidocaine. Using sterile technique the shoulder joint is punctured with an 18-gauge needle. There is no fluid or purulent material noted. I then proceeded with the cortisone injection of 40 mg Depo-Medrol and 1 mL of 2% lidocaine. The patient tolerated the injection well. He is to continue to follow with the pain clinic. I'm hoping that they are able to manage his pain with possibly a block and oral pain medication. He is to follow-up with our office as needed.
[2019-06-24 11:36] VITALS: PULSE 90
[2019-06-24 11:53] LABS: Glucose,Whole Blood 126 mg/dL (75-99)
[2019-06-24] MEDS: guaiFENesin SYRUP 100MG/5ML 200 MG/10 ML CUP PO PRN (13:37)
--- NOTE | 2019-06-24 14:25 | P.DS ---
Providers Date of admission: 06/18/19 13:41 Expected date of discharge: 06/24/19 Attending physician: Tricia Cano Consults: 06/18/19 13:41 Consult Physician Routine Consulting Provider: Ant Green Consult Reason/Comments: Fungal lung infection Do you want consulting provider notified?: Yes 06/18/19 16:59 Consult Physician Routine Consulting Provider: Gurpreet Owen Consult Reason/Comments: pneumonia sepsis Do you want consulting provider notified?: Yes 06/23/19 00:06 Consult Physician Urgent Consulting Provider: Evaristo García Consult Reason/Comments: left shoulder pain Do you want consulting provider notified?: Yes Primary care physician: Helen Newberry Joy Hospital Course: Final diagnosis Chronic obstructive pulmonary disease acute exacerbation with acute purulent tracheobronchitis versus possible broncho-pneumonia with failure of outpatient treatment, possible hospital-acquired pneumonia with possible sepsis, present on admission Hyponatremia Increased WBC Coumadin coagulopathy Left shoulder pain, possibly chronic Chronic obstructive pulmonary disease with acute exacerbation History of CVA/TIA Hypertension History of myocardial infarction history of pneumonia history of right upper lobe fungal pneumonia, Aspergillus positive Chronic hypoxic respiratory failure on home O2 at 2 L via nasal cannula history of shingles 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 Patient will also be [facility] in the outpatient setting upon discharge. Patient will continue on a short course of oral antibiotics in the form of Augmentin for the next 5 days per infectious disease recommendations and will follow-up with primary care provider upon discharge. Total time taken is 35 minutes. History of present illness This is a 59-year-old male who was recently admitted with increasing shortness of breath with cough and sputum with fever and was being closely monitored. Patient states that he has also been having multiple falls in the home and was being followed by PT/OT. Patient was maintained on bronchodilators, IV anti biotics, and steroids during hospitalization. Patient was also having a lot of pain in the left upper shoulder and apparently has been following up with orthopedics in the outpatient setting but was reluctant to receive cortisone injections in the outpatient setting. Patient was seen by orthopedic today and received a cortisone with lidocaine injection in the left shoulder and will follow-up with them in the outpatient setting. Patient will also follow-up with his primary care provider as well as pulmonary upon discharge. Patient's INR level fluctuated and was being closely monitored. Today's INR is 1.9 and will be resumed on his Coumadin and will need a repeat INR level in the morning to reach a therapeutic level of 2-3. Currently patient's condition is stable with much improvement and is ready for discharge today. Patient denies any chest pain, shortness of breath, or palpitations at this time. Patient is O2 dependent at 2 L at home and is at this baseline at this time. Patient denies any nausea or vomiting and is tolerating diet. Guarded prognosis. On Exam vital signs are stable. Cardio S1 and S2 are muffled. Respiratory system shows diminished breath sounds at the bases with some mild crackles noted. Abdomen is soft, obese, nontender. Nervous system shows no focal deficits. Please refer to medication reconciliation sheet for a list of medications. Patient Condition at Discharge: Fair Plan - Discharge Summary Discharge Rx Participant: Yes New Discharge Prescriptions: New HYDROcodone/APAP 7.5-325MG [Bryant 7.5-325] 1 each PO Q6H PRN #12 tab PRN Reason: Moderate Pain Continue Melatonin 5 mg PO HS Montelukast [Singulair] 10 mg PO HS #30 tab Gabapentin 800 mg PO Q6H PRN PRN Reason: Pain Fluticasone/Salmeterol [Fluticasone-Salmeterol 232-14] 1 puff INHALATION RT- BID amLODIPine [Norvasc] 10 mg PO DAILY Albuterol Inhaler [Ventolin Hfa Inhaler] 1 - 2 puff INHALATION RT-Q6H PRN PRN Reason: Shortness Of Breath Escitalopram [Lexapro] 10 mg PO DAILY #15 tab Famotidine [Pepcid AC] 10 mg PO DAILY Nicotine 14Mg/24Hr Patch [Habitrol] 1 patch TRANSDERM DAILY Warfarin [Coumadin] 5 mg PO DAILY #20 tab Ipratropium-Albuterol Nebulize [Duoneb 0.5 mg-3 mg/3 ml Soln] 3 ml INHALATION RT-QID Itraconazole [Sporanox] 200 mg PO DAILY ALPRAZolam [Xanax] 0.25 mg PO TID PRN #30 tab PRN Reason: Anxiety Amoxic-Pot Clav 875-125Mg [Augmentin 875-125] 1 tab PO Q12HR 5 Days #10 tab predniSONE See Taper PO DIRECTED #30 tab Discharge Medication List Melatonin 5 mg PO HS 11/14/18 [History] Montelukast [Singulair] 10 mg PO HS #30 tab 11/17/18 [Rx] Fluticasone/Salmeterol [Fluticasone-Salmeterol 232-14] 1 puff INHALATION RT-BID 04/29/19 [History] Gabapentin 800 mg PO Q6H PRN 04/29/19 [History] amLODIPine [Norvasc] 10 mg PO DAILY 04/29/19 [History] Albuterol Inhaler [Ventolin Hfa Inhaler] 1 - 2 puff INHALATION RT-Q6H PRN 05/11/19 [History] Escitalopram [Lexapro] 10 mg PO DAILY #15 tab 05/15/19 [Rx] Famotidine [Pepcid AC] 10 mg PO DAILY 06/04/19 [History] Nicotine 14Mg/24Hr Patch [Habitrol] 1 patch TRANSDERM DAILY 06/04/19 [History] Warfarin [Coumadin] 5 mg PO DAILY #20 tab 06/11/19 [Rx] Ipratropium-Albuterol Nebulize [Duoneb 0.5 mg-3 mg/3 ml Soln] 3 ml INHALATION RT-QID 06/13/19 [History] Itraconazole [Sporanox] 200 mg PO DAILY 06/13/19 [History] ALPRAZolam [Xanax] 0.25 mg PO TID PRN #30 tab 06/15/19 [Rx] Amoxic-Pot Clav 875-125Mg [Augmentin 875-125] 1 tab PO Q12HR 5 Days #10 tab 06/24/19 [Rx] HYDROcodone/APAP 7.5-325MG [Bryant 7.5-325] 1 each PO Q6H PRN #12 tab 06/24/19 [Rx] predniSONE See Taper PO DIRECTED #30 tab 06/24/19 [Rx] Follow up Appointment(s)/Referral(s): Crissy Bland NPC [Nurse Practitioner] - 11/21/19 2:45 pm [facility], [NON-STAFF] - Urszula Carrasco MD [Primary Care Provider] - 1-2 days (unable to make appointment at time of discharge. Please call to make appointment) Ambulatory/Diagnostic Orders: Prothrombin Time INR [LAB.AMB] Time Frame: 1 Day, Location: None Selected Patient Instructions/Handouts: COPD (Chronic Obstructive Pulmonary Disease) (DC), Sepsis (GEN) Activity/Diet/Wound Care/Special Instructions: Maintain sling for comfort left upper extremity. Follow-up with pain clinic as scheduled. Follow-up with orthopedics as needed. Follow-up with pulmonary upon discharge Follow-up with primary care provider upon discharge Repeat labs in one day to monitor PT/INR Continue with antibiotics until finished Continue current diet Discharge Disposition: HOME WITH HOME HEALTH SERVICES
--- NOTE | 2019-06-24 16:02 | PN ---
PROGRESS NOTE DATE OF SERVICE: 06/24/2019 REASON FOR FOLLOWUP: Fever and possible pneumonia. INTERVAL HISTORY: The patient is currently afebrile. The patient denies having any chest pain or shortness of breath. He did have some cough which was dry in nature. No nausea. No vomiting. No abdominal pain. He denies any worsening pain to the left shoulder area. PHYSICAL EXAMINATION: Blood pressure 123/64 with a pulse of 85, temperature 97.7. He is 96% on 2 L nasal cannula. General description is a middle-aged male up in the bed in no distress. RESPIRATORY SYSTEM: Unlabored breathing with decreased intensity of breath sounds. No wheeze. HEART: S1, S2. Regular rate and rhythm. ABDOMEN: Soft. No tenderness. LABS: His INR is 1.9 with a creatinine 0.54. White count was down to 15,000 yesterday. The patient's CRP was normal and procalcitonin was normal as well. DIAGNOSTIC IMPRESSION AND PLAN: Patient admitted to hospital with fever with concern for possible pneumonia. The patient responded to Zosyn. Will give a short course of oral Augmentin. His INR needs to be monitored closely while on oral antibiotics. Left shoulder pain: Orthopedics has seen the patient and is recommending a steroid injection. Clinical suspicion is low for septic arthritis, especially with a normal CRP and sed rate. MMODL / IJN: [id number] /
[2019-06-24] MEDS ORDERED: WARFARIN 1 MG TAB PO ONE (18:00)
== END 2019-06-24 16:05 | disposition home health service (06) | DRG 871 ==
LOC: EC 11:48 → 3SCARD 13:41 → 4SSUR 06-19 12:09
PROVIDERS: ADMIT Hospitalist; ATTEND Hospitalist
DX: A41.9 Sepsis, unspecified organism (principal); I21.9 Acute myocardial infarction, unspecified; J18.0 Bronchopneumonia, unspecified organism; B44.9 Aspergillosis, unspecified; E87.1 Hypo-osmolality and hyponatremia; S05.71XA Avulsion of right eye, initial encounter; J96.11 Chronic respiratory failure with hypoxia; J44.0 Chronic obstructive pulmonary disease with (acute) lower respiratory infection; J44.1 Chronic obstructive pulmonary disease with (acute) exacerbation; M87.9 Osteonecrosis, unspecified; E11.9 Type 2 diabetes mellitus without complications; E66.9 Obesity, unspecified; F17.210 Nicotine dependence, cigarettes, uncomplicated; F32.9 Major depressive disorder, single episode, unspecified; F41.0 Panic disorder [episodic paroxysmal anxiety]; G89.4 Chronic pain syndrome; B94.8 Sequelae of other specified infectious and parasitic diseases; I10 Essential (primary) hypertension; I25.10 Atherosclerotic heart disease of native coronary artery without angina pectoris; I25.2 Old myocardial infarction; Z86.711 Personal history of pulmonary embolism; Z86.718 Personal history of other venous thrombosis and embolism; Z79.01 Long term (current) use of anticoagulants; K21.9 Gastro-esophageal reflux disease without esophagitis; R29.6 Repeated falls; R79.1 Abnormal coagulation profile; T45.515A Adverse effect of anticoagulants, initial encounter; Z79.52 Long term (current) use of systemic steroids; Z79.899 Other long term (current) drug therapy; Z80.51 Family history of malignant neoplasm of kidney; Z80.8 Family history of malignant neoplasm of other organs or systems; Z82.5 Family history of asthma and other chronic lower respiratory diseases; Z87.01 Personal history of pneumonia (recurrent); Z99.81 Dependence on supplemental oxygen; I69.331 Monoplegia of upper limb following cerebral infarction affecting right dominant side; M25.512 Pain in left shoulder; Y95 Nosocomial condition
CPT/HCPCS: 36415; 71046; 73502; 80048; 80053; 80202; 81003; 83036; 83605; 84145; 84484; 85025; 85610; 85730; 86140; 87040; 87502; 93005; 94640; 94760; 96365; 96375; 99291; 99406

== ENCOUNTER 2019-06-28 18:51 | Observation (INO) | payer OTHER ==
[2019-06-28] MEDS ORDERED: IPRATROPIUM-ALBUTEROL 3 ML NEB INHALATION STA (19:18)
[2019-06-28 20:13] LABS: Basophils # (A) 0.1 k/uL (0-0.2); Basophils % (A) 1 %; Eosinophils # (A) 0.1 k/uL (0-0.7); Eosinophils % (A) 1 %; HCT 38.2 % (39.0-53.0); HGB 13.1 gm/dL (13.0-17.5); Lymphocytes # (A) 1.2 k/uL (1.0-4.8); Lymphocytes % (A) 9 %; MCH 33.8 pg (25.0-35.0); MCHC 34.2 g/dL (31.0-37.0); Macrocytosis Slight; Mean Platelet Volume 5.4; Monocytes # (A) 0.5 k/uL (0-1.0); Monocytes % (A) 3 %; Neutrophils # (A) 11.6 k/uL (1.3-7.7); Neutrophils % (A) 85 %; Platelet Count 282 k/uL (150-450); RBC 3.86 m/uL (4.30-5.90); RDW 15.9 % (11.5-15.5); WBC 13.7 k/uL (3.8-10.6)
[2019-06-28 20:20] LABS: ALT 56 U/L (21-72); AST 23 U/L (17-59); African American GFR (CKD) >90 (>60 ml/min/1.73 sqM); Albumin 3.7 g/dL (3.5-5.0); Alkaline Phosphatase 60 U/L (38-126); Anion Gap 5 mmol/L; Blood Urea Nitrogen 18 mg/dL (9-20); Calcium 9.4 mg/dL (8.4-10.2); Carbon Dioxide 30 mmol/L (22-30); Chloride 99 mmol/L (98-107); Glucose 101 mg/dL (74-99); Magnesium 1.8 mg/dL (1.6-2.3); Non-African American GFR(CKD) >90 (>60 ml/min/1.73 sqM); Potassium 4.3 mmol/L (3.5-5.1); Sodium 134 mmol/L (137-145); Total Bilirubin 0.7 mg/dL (0.2-1.3)
[2019-06-28 20:28] LABS: Partial Thromboplastin Time 22.6 sec (22.0-30.0); Prothrombin Time 10.5 sec (9.0-12.0)
--- NOTE | 2019-06-28 20:55 | XR ---
EXAMINATION TYPE: XR chest 1V DATE OF EXAM: 06/28/2019 COMPARISON: 06/20/2019 INDICATION: Difficulty breathing recent pneumonia TECHNIQUE: Single frontal view of the chest is obtained. FINDINGS: The heart size is normal. The pulmonary vasculature is normal. There is a worsening consolidation in the right upper lobe. Some atelectatic type changes appear to b e at the right base. Some subsegmental atelectasis may be at the left base. IMPRESSION: 1. There appears to be a worsening consolidation in the right upper lobe. Correlate for worsening pne umonia.
--- NOTE | 2019-06-28 21:22 | ED ---
General Adult HPI - General Chief complaint: Shortness of Breath Stated complaint: CLEMENCIA Time Seen by Provider: 06/28/19 19:05 Source: patient Mode of arrival: EMS Limitations: no limitations - History of Present Illness Initial comments: Patient is a is a 59-year-old male with past medical history of COPD on 2 L home O2, fungal pneumonia who presents to the emergency department with worsening shortness of breath. The patient was just recently discharged from the hospital on the sixth. States he is on antibiotics and a steroid. He is been taking his medications as directed however had worsening of his shortness of breath today. States that he was attempting to clean up his apartment. He does believe that he overexerted himself. Has been using his nebulizer and inhalers at home without improvement. He denies any chest pain. Also reports that he had an outbreak of shingles over his left flank. This has been causing him significant pain. Denies any fevers or chills. No nausea or vomiting. The patient does have a history of DVT. Does admit to worsening lower extremity edema. There are no other alleviating, precipitating or modifying factors - Related Data Home Medications Medication Instructions Recorded Confirmed Melatonin 5 mg PO HS 11/14/18 06/29/19 Fluticasone/Salmeterol 1 puff INHALATION RT-BID 04/29/19 06/29/19 [Fluticasone-Salmeterol 232-14] Gabapentin 800 mg PO Q6H PRN 04/29/19 06/29/19 amLODIPine [Norvasc] 10 mg PO DAILY 04/29/19 06/29/19 Albuterol Inhaler [Ventolin Hfa 1 - 2 puff INHALATION RT-Q6H PRN 05/11/19 06/29/19 Inhaler] Nicotine 14Mg/24Hr Patch [Habitrol] 1 patch TRANSDERM DAILY 06/04/19 06/29/19 Ipratropium-Albuterol Nebulize 3 ml INHALATION RT-QID 06/13/19 06/29/19 [Duoneb 0.5 mg-3 mg/3 ml Soln] Ergocalciferol [Vitamin D2 50,000 unit PO Q14D 06/29/19 06/29/19 (DRISDOL)] Famotidine [Pepcid] 20 mg PO BID 06/29/19 06/29/19 Folic Acid 1 mg PO DAILY 06/29/19 06/29/19 HYDROcodone/APAP 7.5-325MG [Mulga 1 tab PO Q6H PRN 06/29/19 06/29/19 7.5-325] predniSONE See Taper PO DAILY 06/29/19 06/29/19 Previous Rx's Medication Instructions Recorded Montelukast [Singulair] 10 mg PO HS #30 tab 11/17/18 Escitalopram [Lexapro] 10 mg PO DAILY #15 tab 05/15/19 ALPRAZolam [Xanax] 0.25 mg PO TID PRN #30 tab 06/15/19 Amoxic-Pot Clav 875-125Mg 1 tab PO Q12HR 5 Days #10 tab 06/24/19 [Augmentin 875-125] Enoxaparin [Lovenox] 80 mg SQ Q12HR #6 syringe 06/30/19 Warfarin [Coumadin] 5 mg PO DAILY #30 tab 06/30/19 traMADol HCl [Ultram] 50 mg PO BID PRN 2 Days #4 tab 06/30/19 Allergies Allergy/AdvReac Type Severity Reaction Status Date / Time peanut [Peanut Butter] AdvReac Nausea & Verified 06/18/19 12:54 Vomiting & Diarrhea Review of Systems ROS Statement: Those systems with pertinent positive or pertinent negative responses have been documented in the HPI. ROS Other: All systems not noted in ROS Statement are negative. 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 Last Myocardial Infarction Date:: unknown History of Any Multi-Drug Resistant Organisms: None Reported Past Surgical History: Orthopedic Surgery Additional Past Surgical History / Comment(s): metal plate left hand middle finger, right eye enucleation. Past Anesthesia/Blood Transfusion Reactions: No Reported Reaction Past Psychological History: Anxiety, Depression, Panic Disorder Smoking Status: Smoker, current status unknown Past Alcohol Use History: Occasional Past Drug Use History: Marijuana - Past Family History Mother Family Medical History: Cancer Additional Family Medical History / Comment(s): Pt believes his Mom of Kidney Cancer Father Family Medical History: Cancer, COPD, Respiratory Disorder Additional Family Medical History / Comment(s): Melanoma General Exam Limitations: no limitations General appearance: alert, in no apparent distress Head exam: Present: atraumatic, normocephalic Eye exam: Present: other (right eye enucleation). Absent: periorbital swelling, periorbital tenderness Pupils: Present: normal accommodation ENT exam: Present: normal exam, normal oropharynx, mucous membranes moist Neck exam: Absent: tenderness, meningismus Respiratory exam: Present: wheezes, decreased breath sounds. Absent: respiratory distress, accessory muscle use Cardiovascular Exam: Present: regular rate, normal rhythm GI/Abdominal exam: Present: soft. Absent: distended, tenderness, guarding Extremities exam: Present: other (sling LUE) Back exam: Present: rash noted (T10 dermatome rash consistent with shingles, left sided ) Neurological exam: Present: alert, oriented X3 Psychiatric exam: Present: flat affect Skin exam: Present: warm, dry, intact Course Vital Signs 06/28/19 06/28/19 06/28/19 19:01 20:21 20:30 Temperature 98.7 F Pulse Rate 90 90 94 Respiratory 18 18 18 Rate Blood Pressure 113/69 O2 Sat by Pulse 93 L Oximetry 06/28/19 21:53 Temperature 98 F Pulse Rate 97 Respiratory 20 Rate Blood Pressure 119/83 O2 Sat by Pulse 98 Oximetry EKG Findings - EKG Comments: EKG Findings:: EKG demonstrates normal sinus rhythm with a ventricular rate of 92. NC interval 132. QRS 80. QTC 457. There are no acute ST segment e levations or depressions concerning for ischemic changes Medical Decision Making - Medical Decision Making Upon arrival the patient is placed into room 2. He had been given 2 DuoNeb breathing treatments by EMS. He is hooked continuous pulse ox and cardiac monitoring. Peripheral IV had been established. I did recommend repeating laboratory studies and a chest x-ray. The patient does have a known PE and is supposed to be on Coumadin. Laboratory studies demonstrated a WBC of 13.7. This is improved compared to previous. INR is 1. Patient does state that he is taking the medication. CMP is unremarkable. BNP is 58. Magnesium 1.8. Chest x-rays performed and demonstrates a worsening right upper lobe opacity. I discussed diagnosis, differential and treatment options the patient. Patient states he feels uncomfortable going home as he does feels breathing is too bad. I will admit the patient for observation. He will receive a DuoNeb breathing treatments and his home medications. I'll continue him on the Augmentin and antifungals. I also added antivirals because of his shingles outbreak. Patient remained in stable condition and was transported to the floor - Lab Data Result diagrams: 06/28/19 19:25 06/28/19 19:25 Lab Results 06/28/19 06/28/19 06/28/19 Range/Units 19:25 19:25 19:25 WBC 13.7 H (3.8-10.6) k/uL RBC 3.86 L (4.30-5.90) m/uL Hgb 13.1 (13.0-17.5) gm/dL Hct 38.2 L (39.0-53.0) % MCV 99.0 (80.0-100.0) fL MCH 33.8 (25.0-35.0) pg MCHC 34.2 (31.0-37.0) g/dL RDW 15.9 H (11.5-15.5) % Plt Count 282 (150-450) k/uL Neutrophils % 85 % Lymphocytes % 9 % Monocytes % 3 % Eosinophils % 1 % Basophils % 1 % Neutrophils # 11.6 H (1.3-7.7) k/uL Lymphocytes # 1.2 (1.0-4.8) k/uL Monocytes # 0.5 (0-1.0) k/uL Eosinophils # 0.1 (0-0.7) k/uL Basophils # 0.1 (0-0.2) k/uL Macrocytosis Slight PT (9.0-12.0) sec INR (<1.2) APTT (22.0-30.0) sec Sodium 134 L (137-145) mmol/L Potassium 4.3 (3.5-5.1) mmol/L Chloride 99 (98-107) mmol/L Carbon Dioxide 30 (22-30) mmol/L Anion Gap 5 mmol/L BUN 18 (9-20) mg/dL Creatinine 0.44 L (0.66-1.25) mg/dL Est GFR (CKD-EPI)AfAm >90 (>60 ml/min/1.73 sqM) Est GFR (CKD-EPI)NonAf >90 (>60 ml/min/1.73 sqM) Glucose 101 H (74-99) mg/dL Calcium 9.4 (8.4-10.2) mg/dL Magnesium 1.8 (1.6-2.3) mg/dL Total Bilirubin 0.7 (0.2-1.3) mg/dL AST 23 (17-59) U/L ALT 56 (21-72) U/L Alkaline Phosphatase 60 (38-126) U/L NT-Pro-B Natriuret Pep 58 pg/mL Total Protein 6.0 L (6.3-8.2) g/dL Albumin 3.7 (3.5-5.0) g/dL 06/28/19 Range/Units 19:25 WBC (3.8-10.6) k/uL RBC (4.30-5.90) m/uL Hgb (13.0-17.5) gm/dL Hct (39.0-53.0) % MCV (80.0-100.0) fL MCH (25.0-35.0) pg MCHC (31.0-37.0) g/dL RDW (11.5-15.5) % Plt Count (150-450) k/uL Neutrophils % % Lymphocytes % % Monocytes % % Eosinophils % % Basophils % % Neutrophils # (1.3-7.7) k/uL Lymphocytes # (1.0-4.8) k/uL Monocytes # (0-1.0) k/uL Eosinophils # (0-0.7) k/uL Basophils # (0-0.2) k/uL Macrocytosis PT 10.5 (9.0-12.0) sec INR 1.0 (<1.2) APTT 22.6 (22.0-30.0) sec Sodium (137-145) mmol/L Potassium (3.5-5.1) mmol/L Chloride (98-107) mmol/L Carbon Dioxide (22-30) mmol/L Anion Gap mmol/L BUN (9-20) mg/dL Creatinine (0.66-1.25) mg/dL Est GFR (CKD-EPI)AfAm (>60 ml/min/1.73 sqM) Est GFR (CKD-EPI)NonAf (>60 ml/min/1.73 sqM) Glucose (74-99) mg/dL Calcium (8.4-10.2) mg/dL Magnesium (1.6-2.3) mg/dL Total Bilirubin (0.2-1.3) mg/dL AST (17-59) U/L ALT (21-72) U/L Alkaline Phosphatase (38-126) U/L NT-Pro-B Natriuret Pep pg/mL Total Protein (6.3-8.2) g/dL Albumin (3.5-5.0) g/dL Disposition Clinical Impression: COPD exacerbation, Fungal infection of lung Disposition: ADMITTED IP TO THIS HOSP Condition: Stable Is patient prescribed a controlled substance at d/c from ED?: No Decision to Admit Reason: Admit from EC Decision Date: 06/28/19 Decision Time: 21:26
[2019-06-28] MEDS ORDERED: NALOXONE 0.4 MG/ML 1 ML VIAL IV PRN (21:26)
[2019-06-28] MEDS: MONTELUKAST 10 MG TAB PO SCH (21:51)
[2019-06-28] MEDS: AMOXIC-POT CLAV 875-125MG 1 EACH TAB PO SCH (21:51)
[2019-06-28] MEDS: HYDROcodone/APAP 7.5-325MG 1 EACH TAB PO PRN (22:58)
[2019-06-28] MEDS: IPRATROPIUM-ALBUTEROL 3 ML NEB INHALATION SCH (23:08)
[2019-06-29] MEDS: IPRATROPIUM-ALBUTEROL 3 ML NEB INHALATION SCH ×6 (03:08→23:03)
[2019-06-29 07:37] LABS: INR 0.9 (<1.2); Prothrombin Time 9.9 sec (9.0-12.0)
[2019-06-29] MEDS: HYDROcodone/APAP 7.5-325MG 1 EACH TAB PO PRN (08:17)
[2019-06-29] MEDS ORDERED: ITRACONAZOLE 100 MG CAP PO SCH (09:00)
[2019-06-29] MEDS: AMOXIC-POT CLAV 875-125MG 1 EACH TAB PO SCH ×2 (10:37→21:10)
[2019-06-29] MEDS: FAMOTIDINE 20 MG TAB PO SCH ×2 (10:37→20:50)
[2019-06-29] MEDS: amLODIPine 10 MG TAB PO SCH (10:37)
[2019-06-29] MEDS: NICOTINE 14MG/24HR PATCH TRANSDERM SCH (10:38)
[2019-06-29] MEDS ORDERED: ERGOCALCIFEROL 50,000 UNIT CAP PO SCH (11:00)
[2019-06-29] MEDS: valACYclovir HCL 1,000 MG TABLET PO SCH ×3 (11:24→20:49)
[2019-06-29] MEDS: ESCITALOPRAM 10 MG TAB PO SCH (11:24)
[2019-06-29] MEDS: ENOXAPARIN 80 MG/0.8 ML SYRINGE SQ SCH ×2 (11:24→21:10)
--- NOTE | 2019-06-29 12:03 | P.HPIM ---
History of Present Illness Patient is a 59-year-old male with a known history of COPD and chronic hypoxic respiratory failure on home oxygen 2 L where nausea cannula, history of CVA, nicotine addiction and chronic pain, hypertension and acid reflux and history of coronary artery disease and has history of NV, DVT/PE on Coumadin. recently treated for right upper lobe cavitary pneumonia with questionable possible fungal infection that responded previously on Sporanox Also he was treated for Shingles and left T10 dermatome Recently . Also he has left shoulder pain and is supposed to follow up with orthopedic as an outpatient. Patient has multiple admission last month between 5-6 time for his respiratory problems and others. Also patient recently was diagnosed with acute pulmonary embolism with CT of the thorax showing saddle embolus extending into the left upper lobe and right sided lobar branches and also possible right lower lobe he was supposed to take Coumadin, oral anticoagulant could not be used because he was on Sporanox for his fungal infection in the lung. So patient was discharge on Coumadin. presents with dyspnea. And his shingles is back so he got worried and decided to come to the emergency room. He states that his dyspnea is slightly worse, he says that patient was taken his Coumadin however his visiting nurse asked him to hold it for any clear reason as per patient. I explained to the patient in details and the drawing the mechanism and pathology with pulmonary embolism and how it can cause complete obstruction to blood flow resulting in and I was the INR should be 2-3 as a goal to prevent this. Patient verbalized understanding to me and he confirmed to me he will take his medication and follow up his INR. Patient also complaining of from dry cough and chest pain only with coughing. He has no headache, no dizziness, no change in urine or bowel habits. No dizziness Vitas looks stable on admission. Labs showing leukocytosis of 13.7, so the last month his double BC were ranging between 15.9-26.2k, . Hemoglobin is 13.1, INR is 0.9 while patient is on Coumadin. Sodium 134, creatinine 0.4, glucose 101. EKG showing normal sinus rhythm at [address]-T changes and QTC of 457, chest x-ray showing worsening right upper lobe consolidation suspicious for worsening pneumonia. On admission patient was continued on Augmentin which he was taking at home. Review of Systems CONSTITUTIONAL: No fever, no malaise, no fatigue. HEENT: No recent visual problems or hearing problems. Denied any sore throat. CARDIOVASCULAR: no palpitations, no syncope. PULMONARY: no hemoptysis. GASTROINTESTINAL: No diarrhea, no nausea, no vomiting, no abdominal pain. Normoactive bowel sounds. NEUROLOGICAL: No headaches, no weakness, no numbness. HEMATOLOGICAL: Denies any bleeding or petechiae. GENITOURINARY: Denies any burning micturition, frequency, or urgency. MUSCULOSKELETAL/RHEUMATOLOGICAL: Denies any joint pain, swelling, or any muscle pain. ENDOCRINE: Denies any polyuria or polydipsia. 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 Last Myocardial Infarction Date:: unknown History of Any Multi-Drug Resistant Organisms: None Reported Past Surgical History: Orthopedic Surgery Additional Past Surgical History / Comment(s): metal plate left hand middle finger, right eye enucleation. Past Anesthesia/Blood Transfusion Reactions: No Reported Reaction Past Psychological History: Anxiety, Depression, Panic Disorder Smoking Status: Smoker, current status unknown Past Alcohol Use History: Occasional Past Drug Use History: Marijuana - Past Family History Mother Family Medical History: Cancer Additional Family Medical History / Comment(s): Pt believes his Mom of Kidney Cancer Father Family Medical History: Cancer, COPD, Respiratory Disorder Additional Family Medical History / Comment(s): Melanoma Medications and Allergies Home Medications Medication Instructions Recorded Confirmed Type Melatonin 5 mg PO HS 11/14/18 06/29/19 History Montelukast [Singulair] 10 mg PO HS #30 tab 11/17/18 06/29/19 Rx Fluticasone/Salmeterol 1 puff INHALATION RT-BID 04/29/19 06/29/19 History [Fluticasone-Salmeterol 232-14] Gabapentin 800 mg PO Q6H PRN 04/29/19 06/29/19 History amLODIPine [Norvasc] 10 mg PO DAILY 04/29/19 06/29/19 History Albuterol Inhaler [Ventolin Hfa 1 - 2 puff INHALATION RT-Q6H PRN 05/11/19 06/29/19 History Inhaler] Escitalopram [Lexapro] 10 mg PO DAILY #15 tab 05/15/19 06/29/19 Rx Nicotine 14Mg/24Hr Patch [Habitrol] 1 patch TRANSDERM DAILY 06/04/19 06/29/19 History Warfarin [Coumadin] 5 mg PO DAILY #20 tab 06/11/19 06/29/19 Rx Ipratropium-Albuterol Nebulize 3 ml INHALATION RT-QID 06/13/19 06/29/19 History [Duoneb 0.5 mg-3 mg/3 ml Soln] ALPRAZolam [Xanax] 0.25 mg PO TID PRN #30 tab 06/15/19 06/29/19 Rx Amoxic-Pot Clav 875-125Mg 1 tab PO Q12HR 5 Days #10 tab 06/24/19 06/29/19 Rx [Augmentin 875-125] Ergocalciferol [Vitamin D2] 50,000 unit PO Q14D 06/29/19 06/29/19 History Famotidine [Pepcid] 20 mg PO BID 06/29/19 06/29/19 History Folic Acid 1 mg PO DAILY 06/29/19 06/29/19 History HYDROcodone/APAP 7.5-325MG [[place] 1 tab PO Q6H PRN 06/29/19 06/29/19 History 7.5-325] predniSONE See Taper PO DAILY 06/29/19 06/29/19 History Allergies Allergy/AdvReac Type Severity Reaction Status Date / Time peanut [Peanut Butter] AdvReac Nausea & Verified 06/18/19 12:54 Vomiting & Diarrhea Physical Exam Vitals: Vital Signs Temp Pulse Pulse Resp BP BP Pulse Ox 06/29/19 11:26 97.9 F 52 L 17 148/84 06/29/19 08:00 98 F 91 18 138/69 95 06/29/19 07:42 96 06/29/19 07:35 95 06/29/19 04:45 97.8 F 95 15 115/58 06/29/19 03:40 95 18 06/29/19 03:19 92 06/29/19 03:08 88 06/28/19 23:18 92 18 06/28/19 23:08 92 18 06/28/19 22:25 93 18 06/28/19 22:20 93 19 119/57 96 06/28/19 21:53 98 F 97 20 119/83 98 06/28/19 20:30 94 18 06/28/19 20:21 90 18 06/28/19 19:01 98.7 F 90 18 113/69 93 L Intake and Output 06/28/19 06/29/19 06/29/19 22:59 06:59 14:59 Other: Voiding Method Toilet Diaper # Voids 1 Weight 76.204 kg GENERAL: The patient is alert and oriented x3, not in any acute distress. Well developed, well nourished. HEENT: Pupils are round and equally reacting to light. EOMI. No scleral icterus. No conjunctival pallor. Normocephalic, atraumatic. No pharyngeal erythema. No thyromegaly. CARDIOVASCULAR: S1 and S2 present. No murmurs, rubs, or gallops. -PULMONARY: Chest is clear to auscultation, no wheezing. Scattered crepitation. ABDOMEN: Soft, nontender, nondistended, normoactive bowel sounds. No palpable organomegaly. MUSCULOSKELETAL: No joint swelling or deformity. EXTREMITIES: No cyanosis, clubbing, or pedal edema. NEUROLOGICAL: Gross neurological examination did not reveal any focal deficits. -SKIN: Pale and shingles rashe on the backs with no physical. No petechiae Results CBC & Chem 7: 06/28/19 19:25 06/28/19 19:25 Labs: Abnormal Lab Results - Last 24 Hours (Table) 06/28/19 06/28/19 Range/Units 19:25 19:25 WBC 13.7 H (3.8-10.6) k/uL RBC 3.86 L (4.30-5.90) m/uL Hct 38.2 L (39.0-53.0) % RDW 15.9 H (11.5-15.5) % Neutrophils # 11.6 H (1.3-7.7) k/uL Sodium 134 L (137-145) mmol/L Creatinine 0.44 L (0.66-1.25) mg/dL Glucose 101 H (74-99) mg/dL Total Protein 6.0 L (6.3-8.2) g/dL Thrombosis Risk Factor Assmnt - Choose All That Apply Any of the Below Risk Factors Present?: Yes Each Factor Represents 1 point: Abnormal pulmonary function (COPD), Serious lung disease incl. pneumonia (< 1month) Each Risk Factor Represents 3 Points: Family history of DVT/PE, History of DVT/PE Thrombosis Risk Factor Assessment Total Risk Factor Score: 8 Thrombosis Risk Factor Assessment Level: High Risk Assessment and Plan Assessment: Mild dyspnea with worsening consolidation in the right upper lung suspicious for worsening pneumonia Recent history of Acute pulmonary embolism. CT of the thorax showing saddle embolus extending into the left upper lobe and all right-sided lobar branches and also possible right lower lobe. with Recent history of Acute right leg DVT Subtherapeutic INR, suspected due to Nonadherence to therapy. Recent history of Pneumonia with combined fungal and bacterial infection. Treated and is improving Stable and improving cavitating right upper lobe abscess. Thought to be fungal infection/fungal ball. Was on itraconazole (Sporanox) 7 mm Pulmonary nodules in the right basal lung COPD and mild acute exacerbation Leukocytosis, multifactorial due to infection and steroid effect. Improving Recent history herpez zoster , shingles of the left flank Left shoulder pain, left shoulder injury status post fall. recent orthopedic input Recommended outpatient follow-up in 1 week. 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 History of Coronary artery disease with history of NV. Ongoing nicotine addiction Plan: This is a pleasant [age] years old male who presents with slight dyspnea and not taking his Coumadin as he supposed to be. Resume Coumadin, start Lovenox for bridging. Consult pulmonary for his worsening pneumonia and history of PE Consult infectious disease to see if he still does Sporanox and antibiotic therapy. Labs and medication were reviewed.. Continue same treatment. Continue with symptomatic treatment. Resume home medication. Monitor lytes and vitals. DVT and GI prophylaxis. Further recommendations of the clinical course of the patient DVT prophylaxis: Subcutaneous Lovenox and Coumadin GI Prophylaxis: Pepcid PT/OT: Pending Prognosis is guarded
[2019-06-29] MEDS: SYMBICORT 160-4.5 MCG INHALER INHALATION SCH ×2 (12:05→18:54)
[2019-06-29] MEDS: traMADol 50 MG TAB PO PRN ×2 (13:51→20:49)
--- NOTE | 2019-06-29 13:53 | P.CNPUL ---
History of Present Illness Consult date: 06/29/19 Reason for consult: dyspnea Chief complaint: Shortness of breath History of present illness: This is 59-year-old white male patient of Dr. Carrasco, who is well known to our service from his previous admissions for complications related to his COPD, and a history of a right upper lobe fungal pneumonia maintained on Sporanox. Patient had been on several week course of Sporanox, and Augmentin, and his latest chest x-rays and CT scans of the chest have actually shown improvement in the appearance of the right upper lobe cavitating pneumonia. During his previous hospitalization at the end of May patient was incidentally found to have a nonocclusive saddle embolism, and a DVT, and patient was started on anti coagulation with Coumadin. Patient is also following with orthopedic service for his history of left shoulder pain, and was following with the pain clinic. On 06/28/2019 patient presents to the emergency department with complaints of pain related to his recent history of shingles and some mild dyspnea. His dyspnea is exacerbated by exertion, and apparently patient was attempting to clean his apartment and believes he had overexerted himself. Denied any fever or chills, no cough or congestion, no wheezing, no sputum production, no nausea vomiting or diarrhea, he does report some mild lower extremity edema. He has been taking his medications as prescribed, although his INR was subtherapeutic despite him taking Coumadin and utilizing his nebulized bronchodilators. Denied any complaints of chest pain. Chest x-ray has been reviewed and showed stable right upper lobe consolidation, and some atelectasis at the right and left base. Lab work showed white blood cell count of 13.7, hemoglobin of 13.1, his INR level is 1.0, sodium is 134, the rest of the electrolytes were within normal limits, BUN is 18, creatinine is 0.44, proBNP is normal at 58. Patient was started on Lovenox injections in view of his subtherapeutic INR, placed on empiric antibiotics, and breathing treatments Review of Systems All systems: negative Constitutional: Denies chills, Denies fever Eyes: denies blurred vision, denies pain Ears, nose, mouth and throat: Denies headache, Denies sore throat Cardiovascular: Denies chest pain, Denies shortness of breath Respiratory: Reports dyspnea, Reports home oxygen, Reports respiratory infections Gastrointestinal: Denies abdominal pain, Denies diarrhea, Denies nausea, Denies vomiting Musculoskeletal: Denies myalgias Integumentary: Denies pruritus, Denies rash Neurological: Denies numbness, Denies weakness Psychiatric: Denies anxiety, Denies depression Endocrine: Denies fatigue, Denies weight change Past Medical History Past Medical History: Chest Pain / Angina, COPD, CVA/TIA, Deep Vein Thrombosis (DVT), Hypertension, Myocardial Infarction (CA), Pneumonia, Pulmonary Embolus (PE), Respiratory Disorder, Skin Disorder Additional Past Medical History / Comment(s): 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 Last Myocardial Infarction Date:: unknown History of Any Multi-Drug Resistant Organisms: None Reported Past Surgical History: Orthopedic Surgery Additional Past Surgical History / Comment(s): metal plate left hand middle finger, right eye enucleation. Past Anesthesia/Blood Transfusion Reactions: No Reported Reaction Past Psychological History: Anxiety, Depression, Panic Disorder Smoking Status: Smoker, current status unknown Past Alcohol Use History: Occasional Past Drug Use History: Marijuana - Past Family History Mother Family Medical History: Cancer Additional Family Medical History / Comment(s): Pt believes his Mom of Kidney Cancer Father Family Medical History: Cancer, COPD, Respiratory Disorder Additional Family Medical History / Comment(s): Melanoma Medications and Allergies Home Medications Medication Instructions Recorded Confirmed Type Melatonin 5 mg PO HS 11/14/18 06/29/19 History Montelukast [Singulair] 10 mg PO HS #30 tab 11/17/18 06/29/19 Rx Fluticasone/Salmeterol 1 puff INHALATION RT-BID 04/29/19 06/29/19 History [Fluticasone-Salmeterol 232-14] Gabapentin 800 mg PO Q6H PRN 04/29/19 06/29/19 History amLODIPine [Norvasc] 10 mg PO DAILY 04/29/19 06/29/19 History Albuterol Inhaler [Ventolin Hfa 1 - 2 puff INHALATION RT-Q6H PRN 05/11/19 06/29/19 History Inhaler] Escitalopram [Lexapro] 10 mg PO DAILY #15 tab 05/15/19 06/29/19 Rx Nicotine 14Mg/24Hr Patch [Habitrol] 1 patch TRANSDERM DAILY 06/04/19 06/29/19 History Warfarin [Coumadin] 5 mg PO DAILY #20 tab 06/11/19 06/29/19 Rx Ipratropium-Albuterol Nebulize 3 ml INHALATION RT-QID 06/13/19 06/29/19 History [Duoneb 0.5 mg-3 mg/3 ml Soln] ALPRAZolam [Xanax] 0.25 mg PO TID PRN #30 tab 06/15/19 06/29/19 Rx Amoxic-Pot Clav 875-125Mg 1 tab PO Q12HR 5 Days #10 tab 06/24/19 06/29/19 Rx [Augmentin 875-125] Ergocalciferol [Vitamin D2] 50,000 unit PO Q14D 06/29/19 06/29/19 History Famotidine [Pepcid] 20 mg PO BID 06/29/19 06/29/19 History Folic Acid 1 mg PO DAILY 06/29/19 06/29/19 History HYDROcodone/APAP 7.5-325MG [[place] 1 tab PO Q6H PRN 06/29/19 06/29/19 History 7.5-325] predniSONE See Taper PO DAILY 06/29/19 06/29/19 History Allergies Allergy/AdvReac Type Severity Reaction Status Date / Time peanut [Peanut Butter] AdvReac Nausea & Verified 06/18/19 12:54 Vomiting & Diarrhea Physical Exam Vitals: Vital Signs Temp Pulse Pulse Resp BP BP Pulse Ox 06/29/19 12:13 96 06/29/19 12:03 92 06/29/19 12:00 52 L 17 06/29/19 11:26 97.9 F 52 L 17 148/84 06/29/19 08:00 98 F 91 18 138/69 95 06/29/19 07:42 96 06/29/19 07:35 95 06/29/19 04:45 97.8 F 95 15 115/58 06/29/19 03:40 95 18 06/29/19 03:19 92 06/29/19 03:08 88 06/28/19 23:18 92 18 06/28/19 23:08 92 18 06/28/19 22:25 93 18 06/28/19 22:20 93 19 119/57 96 06/28/19 21:53 98 F 97 20 119/83 98 06/28/19 20:30 94 18 06/28/19 20:21 90 18 06/28/19 19:01 98.7 F 90 18 113/69 93 L Intake and Output 06/28/19 06/29/19 06/29/19 22:59 06:59 14:59 Other: Voiding Method Toilet Diaper # Voids 1 Weight 76.204 kg GENERAL EXAM: Alert, pleasant, 58-year-old white male, on 2 L of oxygen with a pulse ox of 95% comfortable in no apparent distress. HEAD: Normocephalic/atraumatic. EYES: Normal reaction of pupils, equal size in the left eye, patient has a prosthetic right eye. Conjunctiva pink, sclera white. NOSE: Clear with pink turbinates. THROAT: No erythema or exudates. NECK: No masses, no JVD, no thyroid enlargement, no adenopathy. CHEST: No chest wall deformity. Symmetrical expansion. LUNGS: Equal air entry with no crackles, wheeze, rhonchi or dullness. Congestive cough CVS: Regular rate and rhythm, normal S1 and S2, no gallops, no murmurs, no rubs ABDOMEN: Soft, nontender. No hepatosplenomegaly, normal bowel sounds, no guarding or rigidity. EXTREMITIES: No clubbing, no edema, no cyanosis, 2+ pulses and upper and lower extremities. Left arm is in a sling MUSCULOSKELETAL: Muscle strength and tone normal. SPINE: No scoliosis or deformity. SKIN: Scabbed shingles rash over left back in the lumbar region, no drainage CENTRAL NERVOUS SYSTEM: Alert and oriented -3. No focal deficits, tone is normal in all 4 extremities. PSYCHIATRIC: Alert and oriented -3. Appropriate affect. Intact judgment and insight. Results - Laboratory Findings CBC and BMP: 06/28/19 19:25 11/10/19 19:25 PT/INR, D-dimer PT 9.9 sec (9.0-12.0) 06/29/19 07:14 INR 0.9 (<1.2) 06/29/19 07:14 Abnormal lab findings: Abnormal Labs 06/28/19 06/28/19 19:25 19:25 WBC 13.7 H RBC 3.86 L Hct 38.2 L RDW 15.9 H Neutrophils # 11.6 H Sodium 134 L Creatinine 0.44 L Glucose 101 H Total Protein 6.0 L - Diagnostic Findings Chest x-ray: report reviewed, image reviewed Additional studies: EKG reviewed Assessment and Plan Plan: Assessment: #1. Pain related to the shingles rash on his left posterior back, related to recent history of herpes zoster, being treated with Valtrex #2. 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 Recent admission for acute exacerbation of COPD and tracheobronchitis and left shoulder pain, patient was treated with antibiotics, steroids and discharged home in stable condition on 06/24/2019 #4. Recent diagnosis of DVT and pulmonary embolism in May 2019, was started on Coumadin, however patient's INR is subtherapeutic on this admission at 1.0 #5. Fungal pneumonia in the right upper lobe, which has been under treatment since March 2019 and is improving radiologically, patient has been on a combination of Sporanox. Patient's latest chest x-ray and CT scans of the chest have been showing improvement in the appearance of the right upper lobe fungal pneumonia #6. History of severe oxygen-dependent chronic obstructive pulmonary disease with the baseline FEV1 of 36% of predicted #7. Former smoker, currently in remission #8. History of present CVA involving the basal ganglia in October 2014 #9. 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 Diabetes with this type II #11. GERD/reflux #12. History of coronary artery disease with previous CA #13. Left shoulder pain, chronic, related to history of avascular necrosis of the left humeral head, follows with orthopedic services and pain clinic Plan: Continue current treatment, antibiotics, breathing treatments. INR is subtherapeutic on admission, patient has been started on Lovenox at therapeutic dose. Chest x-ray has been reviewed and the known right upper lobe fungal pneumonia is stable. No plans for bronchoscopy, patient has a few more days worth of Sporanox he supposed to finish, and he can finish oral course of Augmentin. No fever, chills, no significant leukocytosis. No cough, no wheezing, no congestion. No significant dyspnea, appears to be at his baseline. If patient remains stable will consider discharge home today or tomorrow on Lo venox bridge and Coumadin, and patient can resume his maintenance inhalers and breathing treatments and complete oral course of Augmentin. I performed a history & physical examination of the patient and discussed their management with my nurse practitioner, Jeane Hwang. I reviewed the nurse pr actitioner's note and agree with the documented findings and plan of care. Lung sounds are positive for diminished breath sounds. The findings and the impression was discussed with the patient. I attest to the documentation by the nurse practitioner. Time with Patient: Greater than 30
[2019-06-29] MEDS ORDERED: WARFARIN 2.5 MG TAB PO ONE (18:00)
[2019-06-29] MEDS ORDERED: WARFARIN 5 MG TAB PO SCH (18:00)
[2019-06-29 19:38] VITALS: RESP 18
[2019-06-29] MEDS: ALPRAZolam 0.25 MG TAB PO PRN (20:49)
[2019-06-29] MEDS: GABAPENTIN 400 MG CAP PO PRN (20:49)
[2019-06-29] MEDS: MONTELUKAST 10 MG TAB PO SCH (20:50)
[2019-06-29] MEDS ORDERED: MELATONIN 5 MG TABLET PO SCH (21:00)
[2019-06-29] MEDS: guaiFENesin-DM 100-10MG/5ML 10 ML CUP PO PRN (21:10)
--- NOTE | 2019-06-29 21:53 | P.CONS ---
History of Present Illness - Reason for Consult Consult date: 06/29/19 pneumonia Requesting physician: David E Sheet - Chief Complaint shortness of breath x 1 day - History of Present Illness Patient is a 59-year-old male with a past medical history significant for COPD home O2 dependent the patient did have right upper lobe aspergillus pneumonia for the patient is currently on Sporanox per pulmonary he was recently admitted to the hospital did have a fever and more cough and sputum production with concern for possible was secondary bacterial pneumonia blood culture were negative he was unable to afford any sputum and was subsequently discharged home on a 10 day course of oral Augmentin with the patient is currently taking patient is presenting now to the hospital with increasing shortness of breath on Saturday duration apparently the patient has been cleaning his apartment and may have overexerted himself the patient said he uses his nebulizer treatment without any improvement hence he presented to the hospital mostly with increasing shortness of breath or cough has been [id number] intensity, has been mostly dry in nature now pleuritic chest pain or sputum production patient also have a history of for lumbar dermatomes shingles and have patient complaining of more pain in that area describing it to be flare up his shingles with the symptom has the patient was evaluated by the ER physician chest x-ray reported slight increase in the right upper lobe infiltrate patient has been afebrile his white count was slightly elevated at 13,000 the patient has been continued Sporanox and Augmentin infectious disease was consulted for further recommendation regarding antibiotic therapy Review of Systems Positive point has been mentioned in the HPI rest of the systems are negative Past Medical History Past Medical History: Chest Pain / Angina, COPD, CVA/TIA, Deep Vein Thrombosis (DVT), Hypertension, Myocardial Infarction (AR), Pneumonia, Pulmonary Embolus (PE), Respiratory Disorder, Skin Disorder Additional Past Medical History / Comment(s): 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 Last Myocardial Infarction Date:: unknown History of Any Multi-Drug Resistant Organisms: None Reported Past Surgical History: Orthopedic Surgery Additional Past Surgical History / Comment(s): metal plate left hand middle finger, right eye enucleation. Past Anesthesia/Blood Transfusion Reactions: No Reported Reaction Past Psychological History: Anxiety, Depression, Panic Disorder Smoking Status: Smoker, current status unknown Past Alcohol Use History: Occasional Past Drug Use History: Marijuana - Past Family History Mother Family Medical History: Cancer Additional Family Medical History / Comment(s): Pt believes his Mom of Kidney Cancer Father Family Medical History: Cancer, COPD, Respiratory Disorder Additional Family Medical History / Comment(s): Melanoma Medications and Allergies Home Medications Medication Instructions Recorded Confirmed Type Melatonin 5 mg PO HS 11/14/18 06/29/19 History Montelukast [Singulair] 10 mg PO HS #30 tab 11/17/18 06/29/19 Rx Fluticasone/Salmeterol 1 puff INHALATION RT-BID 04/29/19 06/29/19 History [Fluticasone-Salmeterol 232-14] Gabapentin 800 mg PO Q6H PRN 04/29/19 06/29/19 History amLODIPine [Norvasc] 10 mg PO DAILY 04/29/19 06/29/19 History Albuterol Inhaler [Ventolin Hfa 1 - 2 puff INHALATION RT-Q6H PRN 05/11/19 06/29/19 History Inhaler] Escitalopram [Lexapro] 10 mg PO DAILY #15 tab 05/15/19 06/29/19 Rx Nicotine 14Mg/24Hr Patch [Habitrol] 1 patch TRANSDERM DAILY 06/04/19 06/29/19 History Warfarin [Coumadin] 5 mg PO DAILY #20 tab 06/11/19 06/29/19 Rx Ipratropium-Albuterol Nebulize 3 ml INHALATION RT-QID 06/13/19 06/29/19 History [Duoneb 0.5 mg-3 mg/3 ml Soln] ALPRAZolam [Xanax] 0.25 mg PO TID PRN #30 tab 06/15/19 06/29/19 Rx Amoxic-Pot Clav 875-125Mg 1 tab PO Q12HR 5 Days #10 tab 06/24/19 06/29/19 Rx [Augmentin 875-125] Ergocalciferol [Vitamin D2] 50,000 unit PO Q14D 06/29/19 06/29/19 History Famotidine [Pepcid] 20 mg PO BID 06/29/19 06/29/19 History Folic Acid 1 mg PO DAILY 06/29/19 06/29/19 History HYDROcodone/APAP 7.5-325MG [[place] 1 tab PO Q6H PRN 06/29/19 06/29/19 History 7.5-325] predniSONE See Taper PO DAILY 06/29/19 06/29/19 History Allergies Allergy/AdvReac Type Severity Reaction Status Date / Time peanut [Peanut Butter] AdvReac Nausea & Verified 06/18/19 12:54 Vomiting & Diarrhea Physical Exam Vitals: Vital Signs Temp Pulse Pulse Resp BP BP Pulse Ox 06/29/19 11:26 97.9 F 52 L 17 148/84 06/29/19 08:00 98 F 91 18 138/69 95 06/29/19 07:42 96 06/29/19 07:35 95 06/29/19 04:45 97.8 F 95 15 115/58 06/29/19 03:40 95 18 06/29/19 03:19 92 06/29/19 03:08 88 06/28/19 23:18 92 18 06/28/19 23:08 92 18 06/28/19 22:25 93 18 06/28/19 22:20 93 19 119/57 96 06/28/19 21:53 98 F 97 20 119/83 98 06/28/19 20:30 94 18 06/28/19 20:21 90 18 06/28/19 19:01 98.7 F 90 18 113/69 93 L Intake and Output 06/28/19 06/29/19 06/29/19 22:59 06:59 14:59 Other: Voiding Method Toilet Diaper # Voids 1 Weight 76.204 kg GENERAL DESCRIPTION: Middle-aged male lying in bed, no distress. No tachypnea or accessory muscle of respiration use. HEENT: Shows Pallor , no scleral icterus. Oral mucous membrane is dry. No pharyngeal erythema or thrush NECK: Trachea central, no thyromegaly. LUNGS: Unlabored breathing. Decreased breath sound at the base. No wheeze or crackle. HEART: S1, S2, regular rate and rhythm. No loud murmur ABDOMEN: Soft, no tenderness , guarding or rigidity, no organomegaly EXTREMITIES: No edema of feet. SKIN: No rash, no masses palpable. NEUROLOGICAL: The patient is awake, alert, oriented x3, mood and affect normal. Results CBC & Chem 7: 06/28/19 19:25 06/28/19 19:25 Labs: Abnormal Lab Results - Last 24 Hours (Table) 06/28/19 06/28/19 Range/Units 19:25 19:25 WBC 13.7 H (3.8-10.6) k/uL RBC 3.86 L (4.30-5.90) m/uL Hct 38.2 L (39.0-53.0) % RDW 15.9 H (11.5-15.5) % Neutrophils # 11.6 H (1.3-7.7) k/uL Sodium 134 L (137-145) mmol/L Creatinine 0.44 L (0.66-1.25) mg/dL Glucose 101 H (74-99) mg/dL Total Protein 6.0 L (6.3-8.2) g/dL Assessment and Plan Assessment: 1-patient presented to the hospital with increasing shortness of breath in this patient did have underlying COPD home O2 dependent and Aspergillus right upper lobe pneumonia patient currently is not running any fever white count is mildly elevated with concern for possible underlying COPD exacerbation as the patient underlying worsening this patient with no significant sputum production or any fever 2-patient complaining of more pain in his previous dermatome of shingles likely postherpetic neuralgia clinically doubt recurrent shingles Plan: 1-patient to continue with oral Sporanox and Augmentin as prescribed 2-may benefit from medical for his postherpetic neuralgia 3-we'll check a CRP and Procalcitonin level We will follow on clinical condition and cultures to further adjust medication if needed Thank you for this consultation will follow this patient with you Time with Patient: Greater than 30
[2019-06-30] MEDS: traMADol 50 MG TAB PO PRN ×3 (02:42→13:38)
[2019-06-30] MEDS: IPRATROPIUM-ALBUTEROL 3 ML NEB INHALATION SCH ×4 (04:11→14:45)
[2019-06-30 05:49] LABS: Prothrombin Time 10.7 sec (9.0-12.0)
[2019-06-30 07:47] VITALS: BP 137/76; TEMP 97.6
[2019-06-30] MEDS: amLODIPine 10 MG TAB PO SCH (08:47)
[2019-06-30] MEDS: ESCITALOPRAM 10 MG TAB PO SCH (08:47)
[2019-06-30] MEDS: ENOXAPARIN 80 MG/0.8 ML SYRINGE SQ SCH (08:47)
[2019-06-30] MEDS: valACYclovir HCL 1,000 MG TABLET PO SCH (08:47)
[2019-06-30] MEDS: FAMOTIDINE 20 MG TAB PO SCH (08:48)
[2019-06-30] MEDS: AMOXIC-POT CLAV 875-125MG 1 EACH TAB PO SCH (08:48)
[2019-06-30] MEDS: GABAPENTIN 400 MG CAP PO PRN (08:54)
[2019-06-30] MEDS: ALPRAZolam 0.25 MG TAB PO PRN (08:54)
[2019-06-30] MEDS: guaiFENesin-DM 100-10MG/5ML 10 ML CUP PO PRN (08:58)
[2019-06-30] MEDS ORDERED: FOLIC ACID 1 MG TAB PO SCH (09:00)
[2019-06-30] MEDS: NICOTINE 14MG/24HR PATCH TRANSDERM SCH (10:16)
[2019-06-30] MEDS: SYMBICORT 160-4.5 MCG INHALER INHALATION SCH (10:38)
--- NOTE | 2019-06-30 13:25 | P.DS ---
Providers Date of admission: 06/28/19 21:26 Attending physician: Ravinder Nunez MD Consults: 06/29/19 09:13 Consult Physician Urgent Consulting Provider: Isis Vogt Consult Reason/Comments: worsening pna Do you want consulting provider notified?: Yes 06/29/19 10:46 Consult Physician Urgent Consulting Provider: Gurpreet Owen Consult Reason/Comments: worsening pneumonia , and does he still need sporanox ? Do you want consulting provider notified?: Yes Primary care physician: [facility] Course: Diagnoses: -Mild dyspnea,could be related to his mild COPD versus chronic pneumonia versus subtherapeutic INR in the view of his PE. Improved -Subtherapeutic INR, suspected due to Non-adherence to therapy. Patient will be discharged on Coumadin and Lovenox -Suspected worsening consolidation in the right upper titus. Patient has been evaluated by sink cutter and infectious disease, -Recent history of Acute pulmonary embolism. CT of the thorax showing saddle embolus extending into the left upper lobe and all right-sided lobar branches and also possible right lower lobe. with Recent history of Acute right leg DVT -Recent history of Pneumonia with combined fungal and bacterial infection. Treated and is improving -Stable and improving cavitating right upper lobe abscess. Thought to be fungal infection/fungal ball. Was on itraconazole (Sporanox) -7 mm Pulmonary nodules in the right basal lung -COPD and mild acute exacerbation -Leukocytosis, multifactorial due to infection and steroid effect. Improving -Recent history herpez zoster , shingles of the left flank -Left shoulder pain, left shoulder injury status post fall. recent orthopedic input Recommended outpatient follow-up in 1 week. -History of CVA/TIA -Chronic pain syndrome -Hypertension -GERD -History of basilar ganglia hemorrhage in October 2014 -chronic Right Frozen shoulder -Anxiety/depression and panic disorder, no connective tissue -Right eye enucleation due to shingles previously. -History of Coronary artery disease with history of AL. -Ongoing nicotine addiction Hospital course: Patient is a 59-year-old male with a known history of COPD and chronic hypoxic respiratory failure on home oxygen 2 L where nausea cannula, history of CVA, nicotine addiction and chronic pain, hypertension and acid reflux and history of coronary artery disease and has history of AL, DVT/PE on Coumadin. recently rusty ated for right upper lobe cavitary pneumonia with questionable possible fungal infection that responded previously on Sporanox Also he was treated for Shingles and left T10 dermatome Recently . Also he has left shoulder pain and is supposed to follow up with orthopedic as an outpatient. Patient has multiple admission last month between 5-6 time for his respiratory problems and others. Also patient recently was diagnosed with acute pulmonary embolism with CT of the thorax showing saddle embolus extending into the left upper lobe and right sided lobar branches and also possible right lower lobe he was supposed to take Coumadin, oral anticoagulant could not be used because he was on Sporanox for his fungal infection in the lung. So patient was discharge on Coumadin. presents with mild dyspnea dyspnea. and chest x-ray showing worsening right upper lobe consolidation suspicious for worsening pneumonia. So pulmonary and infectious disease evaluated the patient and it looks his lesions are stable, both the recommended to continue with same therapy for example to continue with Augmentin and Sporanox. Because patient INR was subtherapeutic he was restarted on Coumadin and with Lovenox 80 mg twice daily for bridging. Patient knows how to inject himself with Lovenox and he has done that on a previous admission, he confirms to me this time also patient was counseled extensively about the importance of adherence to therapy including the Lovenox and Coumadin until his INR is therapeutic at a goal of 2-3, risks including but not limited to recurrent DVT/recurrent pulmonary embolism, organ dysfunction, and/or and he verbalized understanding and acceptance to keep taking his medication and follow-up with his PCP, also patient will be discharged on home health care for the going to monitor his INR in collaboration with his PCP patient was cleared for discharge by both pulmonary and infectious disease Problems and management plan were discussed with the patient and he verbalized understanding and acceptance Patient was found stable and can be discharged home however he needs follow-up as an outpatient. Patient was instructed to follow up with PCP within one week and patient agrees. Patient agrees with the appointments made for him with his PCP Dr. magaña on 07/03 and states he will follow-up, also patient was instructed to follow up with his sink cutter as an outpatient in 1-2 weeks and he agrees Gen: patient is a AAOx3, no distress CVS: S1-S2, RRR, no murmur Lungs: B/L CTA, no wheezing Abdomen: soft, no distention, no tenderness, positive bowel sounds Extremity: no leg edema or induration Time spent more than 35 minutes e. Patient Condition at Discharge: Stable Plan - Discharge Summary Discharge Rx Participant: No New Discharge Prescriptions: No Action Melatonin 5 mg PO HS Montelukast [Singulair] 10 mg PO HS #30 tab Gabapentin 800 mg PO Q6H PRN PRN Reason: Pain Fluticasone/Salmeterol [Fluticasone-Salmeterol 232-14] 1 puff INHALATION RT- BID amLODIPine [Norvasc] 10 mg PO DAILY Albuterol Inhaler [Ventolin Hfa Inhaler] 1 - 2 puff INHALATION RT-Q6H PRN PRN Reason: Shortness Of Breath Escitalopram [Lexapro] 10 mg PO DAILY #15 tab Nicotine 14Mg/24Hr Patch [Habitrol] 1 patch TRANSDERM DAILY Warfarin [Coumadin] 5 mg PO DAILY #20 tab Ipratropium-Albuterol Nebulize [Duoneb 0.5 mg-3 mg/3 ml Soln] 3 ml INHALATION RT-QID ALPRAZolam [Xanax] 0.25 mg PO TID PRN #30 tab PRN Reason: Anxiety Amoxic-Pot Clav 875-125Mg [Augmentin 875-125] 1 tab PO Q12HR 5 Days #10 tab predniSONE See Taper PO DAILY HYDROcodone/APAP 7.5-325MG [[place] 7.5-325] 1 tab PO Q6H PRN PRN Reason: Pain Folic Acid 1 mg PO DAILY Ergocalciferol [Vitamin D2] 50,000 unit PO Q14D Famotidine [Pepcid] 20 mg PO BID Discharge Medication List Melatonin 5 mg PO HS 11/14/18 [History] Montelukast [Singulair] 10 mg PO HS #30 tab 11/17/18 [Rx] Fluticasone/Salmeterol [Fluticasone-Salmeterol 232-14] 1 puff INHALATION RT-BID 04/29/19 [History] Gabapentin 800 mg PO Q6H PRN 04/29/19 [History] amLODIPine [Norvasc] 10 mg PO DAILY 04/29/19 [History] Albuterol Inhaler [Ventolin Hfa Inhaler] 1 - 2 puff INHALATION RT-Q6H PRN 05/11/19 [History] Escitalopram [Lexapro] 10 mg PO DAILY #15 tab 05/15/19 [Rx] Nicotine 14Mg/24Hr Patch [Habitrol] 1 patch TRANSDERM DAILY 06/04/19 [History] Warfarin [Coumadin] 5 mg PO DAILY #20 tab 06/11/19 [Rx] Ipratropium-Albuterol Nebulize [Duoneb 0.5 mg-3 mg/3 ml Soln] 3 ml INHALATION RT-QID 06/13/19 [History] ALPRAZolam [Xanax] 0.25 mg PO TID PRN #30 tab 06/15/19 [Rx] Amoxic-Pot Clav 875-125Mg [Augmentin 875-125] 1 tab PO Q12HR 5 Days #10 tab 06/24/19 [Rx] Ergocalciferol [Vitamin D2] 50,000 unit PO Q14D 06/29/19 [History] Famotidine [Pepcid] 20 mg PO BID 06/29/19 [History] Folic Acid 1 mg PO DAILY 06/29/19 [History] HYDROcodone/APAP 7.5-325MG [[place] 7.5-325] 1 tab PO Q6H PRN 06/29/19 [History] predniSONE See Taper PO DAILY 06/29/19 [History] Follow up Appointment(s)/Referral(s): [facility], [NON-STAFF] - 1-2 Days Urszula Carrasco MD [Primary Care Provider] - 07/03/19 2:00 pm (Follow up in the office for a PT/INR recheck as scheduled for you) Patient Instructions/Handouts: COPD (Chronic Obstructive Pulmonary Disease) (GEN)
[2019-06-30 14:59] VITALS: PULSE 94
--- NOTE | 2019-06-30 15:59 | PN ---
PROGRESS NOTE DATE OF SERVICE: 06/30/2019 REASON FOR FOLLOWUP: 1. Pneumonia. 2. Postherpetic neuralgia. INTERVAL HISTORY: The patient is currently afebrile. The patient has been breathing comfortably. He did have some occasional cough but was not bringing up any sputum. No nausea, no vomiting. Denies any worsening pain to his low back, site of his rash. PHYSICAL EXAMINATION: Blood pressure 137/76, pulse of 95, temperature 97.6. He is 98% on room air. General description is a middle-aged male up in the bed in no distress. RESPIRATORY SYSTEM: Unlabored breathing with decreased intensity of breath sounds. No wheeze. HEART: S1, S2. Regular rate and rhythm. ABDOMEN: Soft. No tenderness. LABS: His CRP is less than 5 with a procalcitonin of 0.05. DIAGNOSTIC IMPRESSION AND PLAN: 1. Patient with right upper lobe pneumonia has been followed in the outpatient setting by Pulmonary with concern for aspergillus pneumonia. He has been on Sporanox with a normal CRP and procalcitonin. Underlying suppurative bacterial pneumonia to be less likely current course to complete and no further antibiotic on discharge. 2. Patient with postherpetic neuralgia. No active shingles and no need for any antibiotic treatment on discharge. Patient to follow up with Pulmonary for further management of his underlying pneumonia, whom the patient had been following with. MMODL / IJN: [id number] /
== END 2019-06-30 15:50 | disposition home health service (06) ==
LOC: EC 18:51 → 1SOBS 21:26
PROVIDERS: ADMIT Internal Medicine; ATTEND Internal Medicine
DX: R06.00 Dyspnea, unspecified (principal); J44.1 Chronic obstructive pulmonary disease with (acute) exacerbation; Z99.81 Dependence on supplemental oxygen; Z86.718 Personal history of other venous thrombosis and embolism; R60.0 Localized edema; Z79.899 Other long term (current) drug therapy; Z79.891 Long term (current) use of opiate analgesic; Z79.51 Long term (current) use of inhaled steroids; Z79.52 Long term (current) use of systemic steroids; Z79.01 Long term (current) use of anticoagulants; Z91.010 Allergy to peanuts; Z86.73 Personal history of transient ischemic attack (TIA), and cerebral infarction without residual deficits; Z86.711 Personal history of pulmonary embolism; I25.2 Old myocardial infarction; I10 Essential (primary) hypertension; H54.61 Unqualified visual loss, right eye, normal vision left eye; F41.0 Panic disorder [episodic paroxysmal anxiety]; F32.9 Major depressive disorder, single episode, unspecified; Z80.51 Family history of malignant neoplasm of kidney; Z82.5 Family history of asthma and other chronic lower respiratory diseases; Z80.8 Family history of malignant neoplasm of other organs or systems; B02.29 Other postherpetic nervous system involvement; I69.251 Hemiplegia and hemiparesis following other nontraumatic intracranial hemorrhage affecting right dominant side; J44.0 Chronic obstructive pulmonary disease with (acute) lower respiratory infection; K21.9 Gastro-esophageal reflux disease without esophagitis; J96.11 Chronic respiratory failure with hypoxia; I25.10 Atherosclerotic heart disease of native coronary artery without angina pectoris; G89.29 Other chronic pain; M25.512 Pain in left shoulder; J16.8 Pneumonia due to other specified infectious organisms; Z87.81 Personal history of (healed) traumatic fracture; Z82.49 Family history of ischemic heart disease and other diseases of the circulatory system; I82.401 Acute embolism and thrombosis of unspecified deep veins of right lower extremity; Z91.81 History of falling; M75.01 Adhesive capsulitis of right shoulder; B44.9 Aspergillosis, unspecified; R79.1 Abnormal coagulation profile; J40 Bronchitis, not specified as acute or chronic; Z87.891 Personal history of nicotine dependence; E11.9 Type 2 diabetes mellitus without complications; M87.9 Osteonecrosis, unspecified; J85.1 Abscess of lung with pneumonia
CPT/HCPCS: 96372 ×2; 99285; 36415; 94640 ×6; 94760; 93005; 83880; 80053; 83735; 85025; 85610 ×3; 85730; 86140; 84145; 71045; G0378 ×3; J1650 ×2

== ENCOUNTER 2019-07-03 18:13 | Inpatient (IN) | payer OTHER ==
[2019-07-03] MEDS ORDERED: methylPREDNISolone SOD SUCCI 125 MG/2 ML VIAL IV STA (18:23)
[2019-07-03] MEDS ORDERED: IPRATROPIUM 0.5 MG/2.5 ML NEBU INHALATION STA (18:23)
[2019-07-03] MEDS ORDERED: ALBUTEROL NEBULIZED 2.5 MG/3 ML INHALATION STA (18:23)
--- NOTE | 2019-07-03 18:57 | XR ---
EXAMINATION TYPE: XR chest 2V DATE OF EXAM: 07/03/2019 COMPARISON: 06/28/2019 HISTORY: Hypertension TECHNIQUE: Frontal and lateral views of the chest are obtained. FINDINGS: There is some linear density at the left lung base. There is coarsening of the lung markin gs. Heart size is normal. There are no hilar masses. There is no pleural effusion. There is poorly marginated 1.5 cm area of increased density over the right upper lobe. This relates t o a chronic cavitating lesion in the posterior right upper lobe evident on the CT scan of 06/13/2019. IMPRESSION: There is some patchy bilateral scarring and atelectasis not significantly different comp ared to last exam. Cavitating infiltrate right upper lobe unchanged.
[2019-07-03 19:03] LABS: Anisocytosis Slight; Basophils # (A) 0.1 k/uL (0-0.2); Basophils % (A) 1 %; Eosinophils % (A) 0 %; HCT 36.7 % (39.0-53.0); HGB 12.4 gm/dL (13.0-17.5); Lymphocytes # (A) 0.7 k/uL (1.0-4.8); Lymphocytes % (A) 7 %; MCH 34.1 pg (25.0-35.0); MCHC 33.7 g/dL (31.0-37.0); MCV 101.3 fL (80.0-100.0); Macrocytosis Slight; Mean Platelet Volume 5.6; Monocytes # (A) 0.5 k/uL (0-1.0); Monocytes % (A) 4 %; Neutrophils # (A) 9.2 k/uL (1.3-7.7); Neutrophils % (A) 88 %; Platelet Count 281 k/uL (150-450); RBC 3.63 m/uL (4.30-5.90); RDW 16.1 % (11.5-15.5); WBC 10.5 k/uL (3.8-10.6)
[2019-07-03 19:07] LABS: ALT 48 U/L (21-72); AST 19 U/L (17-59); African American GFR (CKD) >90 (>60 ml/min/1.73 sqM); Alkaline Phosphatase 61 U/L (38-126); Anion Gap 9 mmol/L; Blood Urea Nitrogen 7 mg/dL (9-20); Calcium 9.8 mg/dL (8.4-10.2); Carbon Dioxide 26 mmol/L (22-30); Chloride 101 mmol/L (98-107); Glucose 115 mg/dL (74-99); Magnesium 1.7 mg/dL (1.6-2.3); Non-African American GFR(CKD) >90 (>60 ml/min/1.73 sqM); Potassium 4.5 mmol/L (3.5-5.1); Sodium 136 mmol/L (137-145); Total Bilirubin 0.3 mg/dL (0.2-1.3); Total Protein 6.4 g/dL (6.3-8.2)
[2019-07-03 19:11] LABS: INR 3.2 (<1.2); Prothrombin Time 30.8 sec (9.0-12.0)
[2019-07-03 19:12] LABS: Partial Thromboplastin Time 34.4 sec (22.0-30.0)
--- NOTE | 2019-07-03 19:21 | ED ---
General Adult HPI - General Chief complaint: Shortness of Breath Stated complaint: CLEMENCIA Time Seen by Provider: 07/03/19 18:22 Source: patient, RN notes reviewed, old records reviewed Mode of arrival: ambulatory Limitations: no limitations - History of Present Illness Initial comments: This is a 59-year-old male who presents emergency Department complaining of difficulty breathing. Patient states it started last night. Patient states she's been using his nebulizer patient states it only helps for a short period of time patient denies any fever chills. Patient states he is coughing quite a bit but he is not coughing up a lot of sputum. Patient denies any chest pain or palpitations. Patient denies any headache patient denies numbness weakness. Patient denies any lightheadedness or dizziness. Patient denies abdominal pain patient denies nausea vomiting diarrhea. He is getting some more swelling to his legs lately. Patient denies any calf tenderness. - Related Data Home Medications Medication Instructions Recorded Confirmed Melatonin 5 mg PO HS 11/14/18 06/29/19 Fluticasone/Salmeterol 1 puff INHALATION RT-BID 04/29/19 06/29/19 [Fluticasone-Salmeterol 232-14] Gabapentin 800 mg PO Q6H PRN 04/29/19 06/29/19 amLODIPine [Norvasc] 10 mg PO DAILY 04/29/19 06/29/19 Albuterol Inhaler [Ventolin Hfa 1 - 2 puff INHALATION RT-Q6H PRN 05/11/19 06/29/19 Inhaler] Nicotine 14Mg/24Hr Patch [Habitrol] 1 patch TRANSDERM DAILY 06/04/19 06/29/19 Ipratropium-Albuterol Nebulize 3 ml INHALATION RT-QID 06/13/19 06/29/19 [Duoneb 0.5 mg-3 mg/3 ml Soln] Ergocalciferol [Vitamin D2 50,000 unit PO Q14D 06/29/19 06/29/19 (DRISDOL)] Famotidine [Pepcid] 20 mg PO BID 06/29/19 06/29/19 Folic Acid 1 mg PO DAILY 06/29/19 06/29/19 HYDROcodone/APAP 7.5-325MG [[place] 1 tab PO Q6H PRN 06/29/19 06/29/19 7.5-325] predniSONE See Taper PO DAILY 06/29/19 06/29/19 Previous Rx's Medication Instructions Recorded Montelukast [Singulair] 10 mg PO HS #30 tab 11/17/18 Escitalopram [Lexapro] 10 mg PO DAILY #15 tab 05/15/19 ALPRAZolam [Xanax] 0.25 mg PO TID PRN #30 tab 06/15/19 Amoxic-Pot Clav 875-125Mg 1 tab PO Q12HR 5 Days #10 tab 06/24/19 [Augmentin 875-125] Enoxaparin [Lovenox] 80 mg SQ Q12HR #6 syringe 06/30/19 Warfarin [Coumadin] 5 mg PO DAILY #30 tab 06/30/19 traMADol HCl [Ultram] 50 mg PO BID PRN 2 Days #4 tab 06/30/19 Allergies Allergy/AdvReac Type Severity Reaction Status Date / Time peanut [Peanut Butter] AdvReac Nausea & Verified 07/03/19 18:25 Vomiting & Diarrhea Review of Systems ROS Statement: Those systems with pertinent positive or pertinent negative responses have been documented in the HPI. ROS Other: All systems not noted in ROS Statement are negative. 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 Last Myocardial Infarction Date:: unknown History of Any Multi-Drug Resistant Organisms: None Reported Past Surgical History: Orthopedic Surgery Additional Past Surgical History / Comment(s): metal plate left hand middle finger, right eye enucleation. Past Anesthesia/Blood Transfusion Reactions: No Reported Reaction Past Psychological History: Anxiety, Depression, Panic Disorder Smoking Status: Smoker, current status unknown Past Alcohol Use History: Occasional Past Drug Use History: Marijuana - Past Family History Mother Family Medical History: Cancer Additional Family Medical History / Comment(s): Pt believes his Mom of Kidney Cancer Father Family Medical History: Cancer, COPD, Respiratory Disorder Additional Family Medical History / Comment(s): Melanoma General Exam - General Exam Comments Initial Comments: GENERAL: Patient is well-developed and well-nourished. Patient is nontoxic and well- hydrated and is in mild distress. ENT: Neck is soft and supple. No significant lymphadenopathy is noted. Oropharynx is clear. Moist mucous membranes. Neck has full range of motion without eliciting any pain. EYES: The sclera were anicteric and conjunctiva were pink and moist. Extraocular movements were intact and pupils were equal round and reactive to light. Eyelids were unremarkable. PULMONARY: Unlabored respirations. Good breath sounds bilaterally. No audible rales rhonchi or wheezing was noted. CARDIOVASCULAR: There is a regular rate and rhythm without any murmurs gallops or rubs. ABDOMEN: Soft and nontender with normal bowel sounds. No palpable organomegaly was noted. There is no palpable pulsatile mass. SKIN: Skin is clear with no lesions or rashes and otherwise unremarkable. NEUROLOGIC: Patient is alert and oriented x3. Cranial nerves II through XII are grossly intact. Motor and sensory are also intact. Normal speech, volume and content. Symmetrical smile. MUSCULOSKELETAL: Normal extremities with adequate strength and full range of motion. No lower extremity swelling or edema. No calf tenderness. LYMPHATICS: No significant lymphadenopathy is noted PSYCHIATRIC: Normal psychiatric evaluation. Limitations: no limitations Course Vital Signs 07/03/19 07/03/19 07/03/19 18:22 18:26 19:06 Temperature 98.9 F Pulse Rate 102 H 98 Respiratory 20 20 20 Rate Blood Pressure 97/65 O2 Sat by Pulse 93 L Oximetry 07/03/19 19:22 Temperature Pulse Rate 100 Respiratory 20 Rate Blood Pressure O2 Sat by Pulse Oximetry Medical Decision Making - Medical Decision Making EKG shows sinus tachycardia at 105 bpm [place] interval 226 dresses 88 QT interval 342 QTC is 452. Patient's EKG shows no ST segment elevation or depression. Chest x-ray shows no acute lesion compared to old x-rays. Patient received multiple breathing treatments in the emergency department as well as steroids and continues to be wheezing and short of breath. I spoke with Dr. Gerardo he agreed to admit the patient admitted the patient wrote admitting orders - Lab Data Result diagrams: 07/03/19 18:20 07/03/19 18:20 Lab Results 07/03/19 07/03/19 07/03/19 Range/Units 18:20 18:20 18:20 WBC 10.5 (3.8-10.6) k/uL RBC 3.63 L (4.30-5.90) m/uL Hgb 12.4 L (13.0-17.5) gm/dL Hct 36.7 L (39.0-53.0) % MCV 101.3 H (80.0-100.0) fL MCH 34.1 (25.0-35.0) pg MCHC 33.7 (31.0-37.0) g/dL RDW 16.1 H (11.5-15.5) % Plt Count 281 (150-450) k/uL Neutrophils % 88 % Lymphocytes % 7 % Monocytes % 4 % Eosinophils % 0 % Basophils % 1 % Neutrophils # 9.2 H (1.3-7.7) k/uL Lymphocytes # 0.7 L (1.0-4.8) k/uL Monocytes # 0.5 (0-1.0) k/uL Eosinophils # 0.0 (0-0.7) k/uL Basophils # 0.1 (0-0.2) k/uL Anisocytosis Slight Macrocytosis Slight PT (9.0-12.0) sec INR (<1.2) APTT (22.0-30.0) sec Sodium 136 L (137-145) mmol/L Potassium 4.5 (3.5-5.1) mmol/L Chloride 101 (98-107) mmol/L Carbon Dioxide 26 (22-30) mmol/L Anion Gap 9 mmol/L BUN 7 L (9-20) mg/dL Creatinine 0.47 L (0.66-1.25) mg/dL Est GFR (CKD-EPI)AfAm >90 (>60 ml/min/1.73 sqM) Est GFR (CKD-EPI)NonAf >90 (>60 ml/min/1.73 sqM) Glucose 115 H (74-99) mg/dL Calcium 9.8 (8.4-10.2) mg/dL Magnesium 1.7 (1.6-2.3) mg/dL Total Bilirubin 0.3 (0.2-1.3) mg/dL AST 19 (17-59) U/L ALT 48 (21-72) U/L Alkaline Phosphatase 61 (38-126) U/L Troponin I (0.000-0.034) ng/mL NT-Pro-B Natriuret Pep 85 pg/mL Total Protein 6.4 (6.3-8.2) g/dL Albumin 4.0 (3.5-5.0) g/dL 07/03/19 07/03/19 Range/Units 18:20 18:20 WBC (3.8-10.6) k/uL RBC (4.30-5.90) m/uL Hgb (13.0-17.5) gm/dL Hct (39.0-53.0) % MCV (80.0-100.0) fL MCH (25.0-35.0) pg MCHC (31.0-37.0) g/dL RDW (11.5-15.5) % Plt Count (150-450) k/uL Neutrophils % % Lymphocytes % % Monocytes % % Eosinophils % % Basophils % % Neutrophils # (1.3-7.7) k/uL Lymphocytes # (1.0-4.8) k/uL Monocytes # (0-1.0) k/uL Eosinophils # (0-0.7) k/uL Basophils # (0-0.2) k/uL Anisocytosis Macrocytosis PT 30.8 H (9.0-12.0) sec INR 3.2 H (<1.2) APTT 34.4 H (22.0-30.0) sec Sodium (137-145) mmol/L Potassium (3.5-5.1) mmol/L Chloride (98-107) mmol/L Carbon Dioxide (22-30) mmol/L Anion Gap mmol/L BUN (9-20) mg/dL Creatinine (0.66-1.25) mg/dL Est GFR (CKD-EPI)AfAm (>60 ml/min/1.73 sqM) Est GFR (CKD-EPI)NonAf (>60 ml/min/1.73 sqM) Glucose (74-99) mg/dL Calcium (8.4-10.2) mg/dL Magnesium (1.6-2.3) mg/dL Total Bilirubin (0.2-1.3) mg/dL AST (17-59) U/L ALT (21-72) U/L Alkaline Phosphatase (38-126) U/L Troponin I <0.012 (0.000-0.034) ng/mL NT-Pro-B Natriuret Pep pg/mL Total Protein (6.3-8.2) g/dL Albumin (3.5-5.0) g/dL Critical Care Time Critical Care Time: Yes Total Critical Care Time: 35 Disposition Clinical Impression: COPD exacerbation Disposition: ADMITTED IP TO THIS HOSP Referrals: Urszula Carrasco MD [Primary Care Provider] - 1-2 days Time of Disposition: 19:52
[2019-07-03] MEDS: IPRATROPIUM-ALBUTEROL 3 ML NEB INHALATION PRN (23:22)
[2019-07-04 00:21] VITALS: BMI 25.8
[2019-07-04] MEDS: GABAPENTIN 400 MG CAP PO SCH ×4 (00:26→21:12)
[2019-07-04] MEDS: MONTELUKAST 10 MG TAB PO SCH ×2 (00:26→21:12)
[2019-07-04] MEDS: methylPREDNISolone SOD SUCCI 125 MG/2 ML VIAL IV SCH ×4 (00:26→17:19)
[2019-07-04] MEDS: IPRATROPIUM-ALBUTEROL 3 ML NEB INHALATION PRN ×5 (03:30→19:06)
[2019-07-04] MEDS: NICOTINE 14MG/24HR PATCH TRANSDERM SCH (08:26)
[2019-07-04] MEDS: HYDROcodone/APAP 7.5-325MG 1 EACH TAB PO PRN ×3 (08:29→21:12)
[2019-07-04] MEDS ORDERED: LIDOCAINE 5% PATCH TOPICAL PRN (10:58)
[2019-07-04] MEDS ORDERED: WARFARIN 5 MG TAB PO SCH (11:00)
[2019-07-04] MEDS: ESCITALOPRAM 10 MG TAB PO SCH (11:34)
[2019-07-04] MEDS: FAMOTIDINE 20 MG TAB PO SCH ×2 (11:34→21:15)
[2019-07-04] MEDS: AMOXIC-POT CLAV 875-125MG 1 EACH TAB PO SCH ×2 (11:34→21:12)
[2019-07-04] MEDS: amLODIPine 10 MG TAB PO SCH (11:34)
[2019-07-04] MEDS: FOLIC ACID 1 MG TAB PO SCH (11:34)
[2019-07-04] MEDS: ALPRAZolam 0.25 MG TAB PO PRN ×2 (12:00→21:15)
[2019-07-04 12:09] LABS: INR 3.5 (<1.2); Prothrombin Time 33.6 sec (9.0-12.0)
--- NOTE | 2019-07-04 13:22 | P.CNPUL ---
History of Present Illness Consult date: 07/04/19 Requesting physician: Vu Gerardo Reason for consult: dyspnea, abnormal CXR/CT Chief complaint: Extremities edema, shortness of breath History of present illness: This is a pleasant 59-year-old white male patient of Dr. Torres who is well known to our service from his previous admissions for complications related to his COPD, chronic and ongoing tobacco dependence, and a history of a right upper lobe fungal pneumonia maintained on Sporanox. Patient had been on several week course of Sporanox, and Augmentin, and his latest chest x-rays and CT scans of the chest have actually shown improvement in the appearance of the right upper lobe cavitating pneumonia. During his previous hospitalization at the end of May patient was incidentally found to have a nonocclusive saddle embolism, and a DVT, and patient was started on anticoagulation with Coumadin. Patient is also following with orthopedic service for his history of left shoulder pain, and was following with the pain clinic. The patient presented again to the emergency room yesterday with complaints of increasing shortness of breath, chest discomfort, increased lower extremity edema, cough and congestion area renee st x-ray continues to show resolution of a cavitating infiltrate in the right upper lobe. There is some patchy bilateral scarring and atelectasis. No change from previous admission. White count 10.5. Hemoglobin 12.4. INR 3.5. Creatinine 0.47. Troponin 0.012. ProBNP 85. He had been initiated on DuoNeb inhalations, Symbicort, IV Solu-Medrol, Augmentin. NicoDerm patch is in place. He is seen today in consultation on the regular medical floor. He is currently sitting up at the bedside. Awake and alert in no acute distress. He has a loose nonproductive cough. No fever, chills or night sweats. Maintaining good O2 saturations in the 90s on 2 L/m per nasal cannula. Review of Systems REVIEW OF SYSTEMS: CONSTITUTIONAL: Denies any recent significant weight loss or weight gain. EYES: Denies change in vision. EARS, NOSE, MOUTH, THROAT: Denies headaches, denies sore throat. CARDIOVASCULAR: Denies chest pain, palpitations or syncopal episodes. RESPIRATORY: Positive for shortness of breath, cough, congestion no hemoptysis. GASTROINTESTINAL: Denies change in appetite, denies abdominal pain GENITOURINARY: Denies hematuria, denies infections. MUSKULOSKELETAL: Denies pain, positive for swelling in the lower extremities. INTEGUMENTARY: Denies rash, denies eczema. NEUROLOGICAL: Denies recent memory loss, no recent seizure activity. PSYCHIATRIC: Denies anxiety, denies depression. HEMATOLOGIC/LYMPHATIC: Denies anemia, denies enlarged lymph nodes. 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 Last Myocardial Infarction Date:: unknown History of Any Multi-Drug Resistant Organisms: None Reported Past Surgical History: Orthopedic Surgery Additional Past Surgical History / Comment(s): metal plate left hand middle finger, right eye enucleation. Past Anesthesia/Blood Transfusion Reactions: No Reported Reaction Past Psychological History: Anxiety, Depression, Panic Disorder Additional Psychological History / Comment(s): Lives in apartment, 17 steps to climb.Has a nebulizer/oxygen. 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 - Past Family History Mother Family Medical History: Cancer Additional Family Medical History / Comment(s): Pt believes his Mom of Kidney Cancer Father Family Medical History: Cancer, COPD, Respiratory Disorder Additional Family Medical History / Comment(s): Melanoma Medications and Allergies Home Medications Medication Instructions Recorded Confirmed Type Melatonin 5 mg PO HS 03/29/19 11/15/19 History Montelukast [Singulair] 10 mg PO HS #30 tab 11/17/18 07/03/19 Rx Fluticasone/Salmeterol 1 puff INHALATION RT-BID 04/29/19 07/03/19 History [Fluticasone-Salmeterol 232-14] Gabapentin 800 mg PO Q6H PRN 04/29/19 07/03/19 History amLODIPine [Norvasc] 10 mg PO DAILY 04/29/19 07/03/19 History Albuterol Inhaler [Ventolin Hfa 1 - 2 puff INHALATION RT-Q6H PRN 05/11/19 History Inhaler] Escitalopram [Lexapro] 10 mg PO DAILY #15 tab 05/15/19 07/03/19 Rx Nicotine 14Mg/24Hr Patch [Habitrol] 1 patch TRANSDERM DAILY 06/04/19 07/03/19 History Ipratropium-Albuterol Nebulize 3 ml INHALATION RT-QID 06/13/19 07/03/19 History [Duoneb 0.5 mg-3 mg/3 ml Soln] ALPRAZolam [Xanax] 0.25 mg PO TID PRN #30 tab 06/15/19 07/03/19 Rx Amoxic-Pot Clav 875-125Mg 1 tab PO Q12HR 5 Days #10 tab 06/24/19 07/03/19 Rx [Augmentin 875-125] Famotidine [Pepcid] 20 mg PO BID 06/29/19 07/03/19 History Folic Acid 1 mg PO DAILY 06/29/19 07/03/19 History HYDROcodone/APAP 7.5-325MG [[place] 1 tab PO Q6H PRN 06/29/19 07/03/19 History 7.5-325] predniSONE See Taper PO DAILY 06/29/19 07/03/19 History Enoxaparin [Lovenox] 80 mg SQ DIRECTED 07/03/19 07/03/19 History Lidocaine [Aspercreme Patch] 1 patch TRANSDERM DAILY PRN 07/03/19 07/03/19 History Warfarin [Coumadin] 5 mg PO DIRECTED 07/03/19 07/03/19 History Allergies Allergy/AdvReac Type Severity Reaction Status Date / Time peanut [Peanut Butter] AdvReac Nausea & Verified 07/03/19 19:53 Vomiting & Diarrhea Physical Exam Vitals: Vital Signs Temp Pulse Pulse Resp BP BP Pulse Ox 07/04/19 10:59 108 H 07/04/19 10:47 112 H 07/04/19 07:27 100 07/04/19 07:16 100 07/04/19 04:50 98.4 F 94 20 117/72 94 L 07/04/19 03:41 96 07/04/19 03:30 96 07/03/19 23:40 96 07/03/19 23:23 92 07/03/19 21:30 98.2 F 97 20 109/65 96 07/03/19 20:39 98.9 F 100 20 97/65 93 L 07/03/19 19:22 100 20 07/03/19 19:06 98 20 07/03/19 18:26 20 07/03/19 18:22 98.9 F 102 H 20 97/65 93 L Intake and Output 07/03/19 07/04/19 07/04/19 22:59 06:59 14:59 Intake Total 100 Balance 100 Intake: Oral 100 Other: # Voids 1 Weight 850.032 kg GENERAL EXAM: Alert, pleasant, 59-year-old white male, on 2 L of oxygen with a pulse ox of 94% comfortable in no apparent distress. HEAD: Normocephalic/atraumatic. EYES: Patient has a prosthetic right eye. Left eye with conjunctiva pink, sclera white. NOSE: Clear with pink turbinates. THROAT: No erythema or exudates. NECK: No masses, no JVD, no thyroid enlargement, no adenopathy. CHEST: No chest wall deformity. Symmetrical expansion. LUNGS: Equal air entry with few scattered rhonchi, end expiratory wheeze, diminished. CVS: Regular rate and rhythm, normal S1 and S2, no gallops, no murmurs, no rubs ABDOMEN: Soft, nontender. No hepatosplenomegaly, normal bowel sounds, no guarding or rigidity. EXTREMITIES: No clubbing, no edema, no cyanosis, 2+ pulses and upper and lower extremities. Left arm is in a sling MUSCULOSKELETAL: Muscle strength and tone normal. SPINE: No scoliosis or deformity. SKIN: Scabbed shingles rash over left back in the lumbar region, no drainage CENTRAL NERVOUS SYSTEM: No focal deficits, tone is normal in all 4 extremities. PSYCHIATRIC: Alert and oriented -3. Appropriate affect. Intact judgment and insight. Results - Laboratory Findings CBC and BMP: 07/03/19 18:20 07/03/19 18:20 PT/INR, D-dimer PT 33.6 sec (9.0-12.0) H 07/04/19 11:35 INR 3.5 (<1.2) H 07/04/19 11:35 Abnormal lab findings: Abnormal Labs 07/03/19 07/03/19 07/03/19 18:20 18:20 18:20 RBC 3.63 L Hgb 12.4 L Hct 36.7 L MCV 101.3 H RDW 16.1 H Neutrophils # 9.2 H Lymphocytes # 0.7 L PT 30.8 H INR 3.2 H APTT 34.4 H Sodium 136 L BUN 7 L Creatinine 0.47 L Glucose 115 H 07/04/19 11:35 RBC Hgb Hct MCV RDW Neutrophils # Lymphocytes # PT 33.6 H INR 3.5 H APTT Sodium BUN Creatinine Glucose - Diagnostic Findings Chest x-ray: image reviewed Assessment and Plan Assessment: #1 Atypical chest pain most likely secondary to chronic cough. 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 #5 Fungal pneumonia in the right upper lobe, which has been under treatment since March 2019 and is improving radiologically, patient has been on a combination of Sporanox and Augmentin. 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 Vogt. Chest x-ray and labs reviewed. Continued on DuoNeb inhalations, Symbicort, IV Cymetra. He is again educated regarding the importance of complete smoking cessation. NicoDerm patches in place. Anticoagulated with warfarin. Continuing improvement in the right upper lobe cavitary lesion on Sporanox and Augmentin, however not complete clearing. He may benefit from an outpatient PET scan to rule out any malignancy. We will continue to follow and make further recommendations based on his clinical status. I, the cosigning physician, performed a history & physical examination of the patient. Lungs sounds with few scattered rhonchi, end expiratory wheeze, diminis hed. Maintaining good O2 saturations in the 90s on 2 L/m per nasal cannula.. I discussed the assessment and plan of care with my nurse practitioner, Crissy Bland. I attest to the above note as dictated by her. Time with Patient: Greater than 30
[2019-07-04] MEDS: ITRACONAZOLE 100 MG CAP PO SCH (15:14)
[2019-07-04] MEDS: SYMBICORT 160-4.5 MCG INHALER (BULK) INHALATION SCH (19:06)
[2019-07-04] MEDS ORDERED: MELATONIN 5 MG TABLET PO SCH (21:00)
--- NOTE | 2019-07-04 21:38 | P.HPIM ---
History of Present Illness H&P Date: 07/04/19 Chief Complaint: Shortness of breath Mr. Mallory is a 59-year-old male with a past medical history of COPD, chronic hypoxic respiratory failure on 2 L of home oxygen, CVA, nicotine addiction, coronary artery disease, PE and DVT coming in the hospital with a chief complaint of difficulty in breathing and chest heaviness. Patient states that he has been doing his regular activities at home when he experienced some chest heaviness and difficulty in breathing so came into the hospital for further evaluation. Patient has multiple admissions in the past 2 months for respira tory issues. He was recently diagnosed with suicidal pulmonary embolism and also DVT and discharged home on Lovenox and Coumadin. Patient states that he has been compliant with his medications. His INR checked at the time of admission is 30. Patient denies having any cough. He denies having any headache or dizziness. He denies having any bloody bowel movements. In the emergency the patient had a chest x-ray showing patchy bilateral scarring and atelectasis and a cavitating infiltrate of the right upper lobe that is unchanged. His blood work showed normal hemoglobin 12.4 and basic metabolic panel within normal limits. Patient denied having any fevers chills or rigors. No palpitations or syncopal episodes. No hemoptysis or hematemesis. No abdominal pain nausea vomiting or diarrhea. No headaches or weakness of his extremities. No dysuria or hematuria. Patient denies having any joint swelling or pain. Review of Systems REVIEW OF SYSTEMS: PSYCH: Patient states that he has been anxious since being diagnosed with PE NEURO:No c/o weakness of the extremties, No facial droop, No speech abnormalities. VASCULAR: Mild lower extremity swelling HEMATOLOGIC: No history of easy bleeding and bruising . RESPIRATORY: As per HPI. IMMUNE: Recent history of Fungal infection, pneumonia INTEGUMENT: no rashes OPHTHALMOLOGIC: No blurry vision and no eye discharge : No dysuria or hematuria CARDIAC: No chest pain or paroxysmal nocturnal dyspnea MUSCULOSKELETAL : No Aches or pains in the joints or muscles. GI: No abdominal pain, Nausea or vomiting. No constipation or diarrhea. 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 Last Myocardial Infarction Date:: unknown History of Any Multi-Drug Resistant Organisms: None Reported Past Surgical History: Orthopedic Surgery Additional Past Surgical History / Comment(s): metal plate left hand middle finger, right eye enucleation. Past Anesthesia/Blood Transfusion Reactions: No Reported Reaction Past Psychological History: Anxiety, Depression, Panic Disorder Additional Psychological History / Comment(s): Lives in apartment, 17 steps to climb.Has a nebulizer/oxygen. 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 - Past Family History Mother Family Medical History: Cancer Additional Family Medical History / Comment(s): Pt believes his Mom of Kidney Cancer Father Family Medical History: Cancer, COPD, Respiratory Disorder Additional Family Medical History / Comment(s): Melanoma Medications and Allergies Home Medications Medication Instructions Recorded Confirmed Type Melatonin 5 mg PO HS 11/14/18 07/03/19 History Montelukast [Singulair] 10 mg PO HS #30 tab 11/17/18 07/03/19 Rx Fluticasone/Salmeterol 1 puff INHALATION RT-BID 04/29/19 07/03/19 History [Fluticasone-Salmeterol 232-14] Gabapentin 800 mg PO Q6H PRN 04/29/19 07/03/19 History amLODIPine [Norvasc] 10 mg PO DAILY 04/29/19 07/03/19 History Albuterol Inhaler [Ventolin Hfa 1 - 2 puff INHALATION RT-Q6H PRN 05/11/1906/19 History Inhaler] Escitalopram [Lexapro] 10 mg PO DAILY #15 tab 05/15/19 07/03/19 Rx Nicotine 14Mg/24Hr Patch [Habitrol] 1 patch TRANSDERM DAILY 06/04/19 07/03/19 History Ipratropium-Albuterol Nebulize 3 ml INHALATION RT-QID 06/13/19 07/03/19 History [Duoneb 0.5 mg-3 mg/3 ml Soln] ALPRAZolam [Xanax] 0.25 mg PO TID PRN #30 tab 06/15/19 07/03/19 Rx Amoxic-Pot Clav 875-125Mg 1 tab PO Q12HR 5 Days #10 tab 06/24/19 07/03/19 Rx [Augmentin 875-125] Famotidine [Pepcid] 20 mg PO BID 06/29/19 07/03/19 History Folic Acid 1 mg PO DAILY 06/29/19 07/03/19 History HYDROcodone/APAP 7.5-325MG [[place] 1 tab PO Q6H PRN 06/29/19 07/03/19 History 7.5-325] predniSONE See Taper PO DAILY 06/29/19 07/03/19 History Enoxaparin [Lovenox] 80 mg SQ DIRECTED 07/03/19 07/03/19 History Lidocaine [Aspercreme Patch] 1 patch TRANSDERM DAILY PRN 07/03/19 07/03/19 History Warfarin [Coumadin] 5 mg PO DIRECTED 07/03/19 07/03/19 History Allergies Allergy/AdvReac Type Severity Reaction Status Date / Time peanut [Peanut Butter] AdvReac Nausea & Verified 07/03/19 19:53 Vomiting & Diarrhea Physical Exam Vitals: Vital Signs Temp Pulse Pulse Resp BP BP Pulse Ox 07/04/19 10:59 108 H 07/04/19 10:47 112 H 07/04/19 07:27 100 07/04/19 07:16 100 07/04/19 04:50 98.4 F 94 20 117/72 94 L 07/04/19 03:41 96 07/04/19 03:30 96 07/03/19 23:40 96 07/03/19 23:23 92 07/03/19 21:30 98.2 F 97 20 109/65 96 07/03/19 20:39 98.9 F 100 20 97/65 93 L 07/03/19 19:22 100 20 07/03/19 19:06 98 20 07/03/19 18:26 20 07/03/19 18:22 98.9 F 102 H 20 97/65 93 L Intake and Output 07/03/19 07/04/19 07/04/19 22:59 06:59 14:59 Intake Total 100 Balance 100 Intake: Oral 100 Other: # Voids 1 Weight 850.032 kg Patient has been walking in the hallways to get some fresh air. GENERAL: The patient is alert and oriented x3, not in any acute distress. Chronically ill appearing HEENT: Pupils are round and equally reacting to light. EOMI. No scleral icterus. No conjunctival pallor. Normocephalic, atraumatic. No pharyngeal erythema. No thyromegaly. CARDIOVASCULAR: S1 and S2 present. No murmurs, rubs, or gallops. -PULMONARY: Decreased breath sounds in all lung brown. Mild wheezing bi laterally. Scattered crepitation. ABDOMEN: Soft, nontender, nondistended, normoactive bowel sounds. No palpable organomegaly. MUSCULOSKELETAL: No joint swelling or deformity. EXTREMITIES: Mild pitting lower extremity edemal laterallyaterally NEUROLOGICAL: Gross neurological examination did not reveal any focal deficits. -SKIN: A small abrasion on the lateral side of the left leg. No active bl eeding. Results CBC & Chem 7: 07/03/19 18:20 07/03/19 18:20 Labs: Abnormal Lab Results - Last 24 Hours (Table) 07/03/19 07/03/19 07/03/19 Range/Units 18:20 18:20 18:20 RBC 3.63 L (4.30-5.90) m/uL Hgb 12.4 L (13.0-17.5) gm/dL Hct 36.7 L (39.0-53.0) % MCV 101.3 H (80.0-100.0) fL RDW 16.1 H (11.5-15.5) % Neutrophils # 9.2 H (1.3-7.7) k/uL Lymphocytes # 0.7 L (1.0-4.8) k/uL PT 30.8 H (9.0-12.0) sec INR 3.2 H (<1.2) APTT 34.4 H (22.0-30.0) sec Sodium 136 L (137-145) mmol/L BUN 7 L (9-20) mg/dL Creatinine 0.47 L (0.66-1.25) mg/dL Glucose 115 H (74-99) mg/dL 07/04/19 Range/Units 11:35 RBC (4.30-5.90) m/uL Hgb (13.0-17.5) gm/dL Hct (39.0-53.0) % MCV (80.0-100.0) fL RDW (11.5-15.5) % Neutrophils # (1.3-7.7) k/uL Lymphocytes # (1.0-4.8) k/uL PT 33.6 H (9.0-12.0) sec INR 3.5 H (<1.2) APTT (22.0-30.0) sec Sodium (137-145) mmol/L BUN (9-20) mg/dL Creatinine (0.66-1.25) mg/dL Glucose (74-99) mg/dL Thrombosis Risk Factor Assmnt - Choose All That Apply Any of the Below Risk Factors Present?: Yes Each Factor Represents 1 point: Abnormal pulmonary function (COPD), Age 41-60 years, Obesity (BMI >25) Other Risk Factors: Yes Each Risk Factor Represents 3 Points: History of DVT/PE Other congenital or acquired thrombophilia - If yes, enter type in comment: No Thrombosis Risk Factor Assessment Total Risk Factor Score: 6 Thrombosis Risk Factor Assessment Level: High Risk Assessment and Plan Assessment: ASSESSMENT Acute on chronic hypoxic/hypercapnic respiratory failure Acute COPD exacerbation Recent history of Acute pulmonary embolism. Recent history of Acute right leg DVT Recent history of Pneumonia with combined fungal and bacterial infection. Stable and improving cavitating right upper lobe abscess. 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 History of Coronary artery disease with history of [place]. Ongoing nicotine addiction PLAN: Patient is being treated for acute COPD exacerbation with IV steroids, breathing treatments and his antibiotic therapy has been continued. Pulmonary consult has been placed as the patient is well known to their service and coming in with exacerbation. Patient's INR is slightly supratherapeutic, pharmacy to d ose Coumadin for a INR to be 2-3. Patient has been resumed on all home medications. Overall prognosis is guarded due to multiple medical comorbidities. Further recommendations to follow depending on the progress of the patient.
[2019-07-04 23:42] VITALS: RESP 18
[2019-07-05] MEDS: methylPREDNISolone SOD SUCCI 125 MG/2 ML VIAL IV SCH ×3 (00:21→11:51)
[2019-07-05] MEDS: IPRATROPIUM-ALBUTEROL 3 ML NEB INHALATION PRN ×4 (00:42→11:16)
[2019-07-05] MEDS: HYDROcodone/APAP 7.5-325MG 1 EACH TAB PO PRN ×2 (03:54→10:16)
[2019-07-05] MEDS: amLODIPine 10 MG TAB PO SCH (06:57)
[2019-07-05] MEDS: ITRACONAZOLE 100 MG CAP PO SCH (06:57)
[2019-07-05] MEDS: ESCITALOPRAM 10 MG TAB PO SCH (06:57)
[2019-07-05] MEDS: FOLIC ACID 1 MG TAB PO SCH (06:57)
[2019-07-05] MEDS: AMOXIC-POT CLAV 875-125MG 1 EACH TAB PO SCH (06:57)
[2019-07-05] MEDS: NICOTINE 14MG/24HR PATCH TRANSDERM SCH (06:57)
[2019-07-05] MEDS: GABAPENTIN 400 MG CAP PO SCH (06:57)
[2019-07-05] MEDS: FAMOTIDINE 20 MG TAB PO SCH (06:57)
[2019-07-05] MEDS: ALPRAZolam 0.25 MG TAB PO PRN (06:57)
[2019-07-05 07:03] VITALS: BP 119/75; TEMP 97.5
[2019-07-05 07:03] LABS: Anisocytosis Slight; Basophils # (A) 0.1 k/uL (0-0.2); Basophils % (A) 1 %; Eosinophils % (A) 0 %; HCT 33.3 % (39.0-53.0); HGB 11.4 gm/dL (13.0-17.5); Lymphocytes # (A) 0.2 k/uL (1.0-4.8); Lymphocytes % (A) 2 %; MCH 34.9 pg (25.0-35.0); MCHC 34.3 g/dL (31.0-37.0); MCV 101.8 fL (80.0-100.0); Macrocytosis Slight; Mean Platelet Volume 6.2; Monocytes # (A) 0.4 k/uL (0-1.0); Monocytes % (A) 3 %; Neutrophils # (A) 12.2 k/uL (1.3-7.7); Neutrophils % (A) 94 %; Platelet Count 300 k/uL (150-450); RBC 3.27 m/uL (4.30-5.90); RDW 16.1 % (11.5-15.5)
[2019-07-05 07:09] LABS: Prothrombin Time 28.8 sec (9.0-12.0)
[2019-07-05 07:14] LABS: African American GFR (CKD) >90 (>60 ml/min/1.73 sqM); Anion Gap 8 mmol/L; Blood Urea Nitrogen 18 mg/dL (9-20); Calcium 9.3 mg/dL (8.4-10.2); Carbon Dioxide 28 mmol/L (22-30); Chloride 101 mmol/L (98-107); Glucose 186 mg/dL (74-99); Non-African American GFR(CKD) >90 (>60 ml/min/1.73 sqM); Sodium 137 mmol/L (137-145)
[2019-07-05] MEDS: SYMBICORT 160-4.5 MCG INHALER (BULK) INHALATION SCH (07:32)
[2019-07-05 11:28] VITALS: PULSE 96
--- NOTE | 2019-07-05 11:46 | P.PN ---
Subjective Progress Note Date: 07/05/19 Principal diagnosis: atypical chest pain/musculoskeletal This is a pleasant 59-year-old white male patient of Dr. Torres who is well known to our service from his previous admissions for complications related to his COPD, chronic and ongoing tobacco dependence, and a history of a right upper lobe fungal pneumonia maintained on Sporanox. Patient had been on several week course of Sporanox, and Augmentin, and his latest chest x-rays and CT scans of the chest have actually shown improvement in the appearance of the right upper lobe cavitating pneumonia. During his previous hospitalization at the end of May patient was incidentally found to have a nonocclusive saddle embolism, and a DVT, and patient was started on anticoagulation with Coumadin. Patient is also following with orthopedic service for his history of left shoulder pain, and was following with the pain clinic. The patient presented again to the emergency room yesterday with complaints of increasing shortness of breath, chest discomfort, increased lower extremity edema, cough and congestion area chest x-ray continues to show resolution of a cavitating infiltrate in the right upper lobe. There is some patchy bilateral scarring and atelectasis. No change from previous admission. White count 10.5. Hemoglobin 12.4. INR 3.5. Creatinine 0.47. Troponin 0.012. ProBNP 85. He had been initiated on DuoNeb inhalations, Symbicort, IV Solu-Medrol, Augmentin. NicoDerm patch is in place. He is seen today in consultation on the regular medical floor. He is currently sitting up at the bedside. Awake and alert in no acute distress. He has a loose nonproductive cough. No fever, chills or night sweats. Maintaining good O2 saturations in the 90s on 2 L/m per nasal cannula. Reevaluated today on 07/05/2019, patient is feeling great, no cough no wheezing no shortness of breath and no chest pain. Patient is being considered for discharge planning today.CBC is basically normal WBC count is 13 hemoglobin 11.4 lites are normal renal profile is normal. INR is 3.0, remains on Coumadin for his history of pulmonary embolism. Objective - Vital Signs Vital signs: Vital Signs Temp 97.5 F L 07/05/19 07:00 Pulse 96 07/05/19 11:28 Resp 18 07/05/19 08:00 BP 119/75 07/05/19 07:00 Pulse Ox 95 07/05/19 07:00 Intake & Output 07/04/19 07/05/19 07/05/19 18:59 06:59 18:59 Intake Total 300 Balance 300 Intake: Oral 300 Other: Voiding Method Toilet Toilet Urinal Urinal # Voids 5 2 - Exam GENERAL EXAM: revealed a 59-year-old white male in no distress. HEAD: Normocephalic/atraumatic. EYES: Patient has a prosthetic right eye. Left eye with conjunctiva pink, sclera white. neck: Supple, no neck masses, no JVD. CHEST: symmetrical chest expansion, no chest wall tenderness. LUNGS: diminished breath sounds at the bases no crackles or rhonchi or wheezes. CVS: Regular rate and rhythm, normal S1 and S2, no gallops, no murmurs, no rubs ABDOMEN: soft nontender no megaly no rebound no guarding. EXTREMITIES: No clubbing, no edema, left arm is in a sling. MUSCULOSKELETAL: good muscle tone, strength is equal. Left arm is in a sling.. SKIN: Scabbed shingles rash over left back in the lumbar region, no drainage CENTRAL NERVOUS SYSTEM: alert oriented and is to be no focal deficit. PSYCHIATRIC: normal mood affect and normal mental status examination - Labs CBC & Chem 7: 07/05/19 06:25 07/05/19 06:25 Labs: Abnormal Lab Results - Last 24 Hours (Table) 07/04/19 07/05/19 07/05/19 Range/Units 11:35 06:25 06:25 WBC 13.0 H (3.8-10.6) k/uL RBC 3.27 L (4.30-5.90) m/uL Hgb 11.4 L (13.0-17.5) gm/dL Hct 33.3 L (39.0-53.0) % MCV 101.8 H (80.0-100.0) fL RDW 16.1 H (11.5-15.5) % Neutrophils # 12.2 H (1.3-7.7) k/uL Lymphocytes # 0.2 L (1.0-4.8) k/uL PT 33.6 H 28.8 H (9.0-12.0) sec INR 3.5 H 3.0 H (<1.2) Creatinine (0.66-1.25) mg/dL Glucose (74-99) mg/dL 07/05/19 Range/Units 06:25 WBC (3.8-10.6) k/uL RBC (4.30-5.90) m/uL Hgb (13.0-17.5) gm/dL Hct (39.0-53.0) % MCV (80.0-100.0) fL RDW (11.5-15.5) % Neutrophils # (1.3-7.7) k/uL Lymphocytes # (1.0-4.8) k/uL PT (9.0-12.0) sec INR (<1.2) Creatinine 0.45 L (0.66-1.25) mg/dL Glucose 186 H (74-99) mg/dL Assessment and Plan Assessment: #1 Atypical chest pain most likely secondary to chronic cough. 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 #5 Fungal pneumonia in the right upper lobe, which has been under treatment since March 2019 and is improving radiologically, patient has been on a combination of Sporanox and Augmentin. 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 Again malignancy is felt to be low in the differential diagnoses, but not entirely ruled out, patient was made very well aware of this. He is not a great surgical candidate even if there is evidence of malignancy down the line agree with discharge planning today. Time with Patient: Less than 30
--- NOTE | 2019-07-05 14:21 | P.DS ---
Providers Date of admission: 07/05/19 08:51 Expected date of discharge: 07/05/19 Attending physician: Vu Gerardo Consults: 07/03/19 19:52 Consult Physician Routine Consulting Provider: Ant Green Reason/Comments: Acute exacerbation of COPD Do you want consulting provider notified?: Yes Primary care physician: [facility] Course: HPI - Mr. Mallory is a 59-year-old male with a past medical history of COPD, chronic hypoxic respiratory failure on 2 L of home oxygen, CVA, nicotine addiction, coronary artery disease, PE and DVT coming in the hospital with a chief complaint of difficulty in breathing and chest heaviness. Patient states that he has been doing his regular activities at home when he experienced some chest heaviness and difficulty in breathing so came into the hospital for further evaluation. Patient has multiple admissions in the past 2 months for respiratory issues. He was recently diagnosed with suicidal pulmonary embolism and also DVT and discharged home on Lovenox and Coumadin. Patient states that he has been compliant with his medications. His INR checked at the time of admission is 30. Patient denies having any cough. He denies having any headache or dizziness. He denies having any bloody bowel movements. In the emergency the patient had a chest x-ray showing patchy bilateral scarring and atelectasis and a cavitating infiltrate of the right upper lobe that is unchanged. His blood work showed normal hemoglobin 12.4 and basic metabolic panel within normal limits. During the hospital course patient was admitted for acute COPD exacerbation. He was treated with Solu-Medrol and breathing treatments after which his symptoms improved. This morning patient has been walking in the hallways without any d ifficulty in breathing. He states he is back to his baseline and wants to be discharged home. He has been cleared by pulmonary to be discharged home in a stable condition and to continue with the same medication regimen. Vital Signs 07/05/19 07/05/19 07/05/19 07:00 07:32 07:43 Temperature 97.5 F L Pulse Rate 92 92 Pulse Rate [ 94 Pulse Oximetery ] Respiratory 18 Rate Blood Pressure 119/75 [Right Arm] O2 Sat by Pulse 95 Oximetry 07/05/19 07/05/19 07/05/19 08:00 11:17 11:28 Temperature Pulse Rate 100 96 Pulse Rate [ Pulse Oximetery ] Respiratory 18 Rate Blood Pressure [Right Arm] O2 Sat by Pulse Oximetry GENERAL: The patient is alert and oriented x3, not in any acute distress. Chronically ill appearing HEENT: Pupils are round and equally reacting to light. EOMI. No scleral icterus. No conjunctival pallor. Normocephalic, atraumatic. No pharyngeal erythema. No thyromegaly. CARDIOVASCULAR: S1 and S2 present. No murmurs, rubs, or gallops. -PULMONARY: Decreased breath sounds in all lung brown. Mild wheezing bilaterally. Scattered crepitation. ABDOMEN: Soft, nontender, nondistended, normoactive bowel sounds. No palpable organomegaly. MUSCULOSKELETAL: No joint swelling or deformity. EXTREMITIES: Mild pitting lower extremity edemal laterallyaterally NEUROLOGICAL: Gross neurological examination did not reveal any focal deficits. -SKIN: A small abrasion on the lateral side of the left leg. No active bleeding. DISCHARGE DIAGNOSIS Acute on chronic hypoxic/hypercapnic respiratory failure Acute COPD exacerbation Recent history of Acute pulmonary embolism. Recent history of Acute right leg DVT Recent history of Pneumonia with combined fungal and bacterial infection. Stable and improving cavitating right upper lobe abscess. 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 History of Coronary artery disease with history of [place]. Ongoing nicotine addiction FOLLOW-up: Patient is advised to follow-up with his primary care physician and pulmonary within the next 2-5 days. He is being discharged home. Spent more than 35 minutes with the discharge of the patient. Patient Condition at Discharge: Fair Plan - Discharge Summary Discharge Rx Participant: No New Discharge Prescriptions: New Itraconazole [Sporanox] 200 mg PO DAILY cap traMADol HCL [Ultram] 50 mg PO Q8HR PRN 3 Days #9 tab PRN Reason: Pain Continue Melatonin 5 mg PO HS Montelukast [Singulair] 10 mg PO HS #30 tab Gabapentin 800 mg PO Q6H PRN PRN Reason: Pain Fluticasone/Salmeterol [Fluticasone-Salmeterol 232-14] 1 puff INHALATION RT- BID amLODIPine [Norvasc] 10 mg PO DAILY Albuterol Inhaler [Ventolin Hfa Inhaler] 1 - 2 puff INHALATION RT-Q6H PRN PRN Reason: Shortness Of Breath Escitalopram [Lexapro] 10 mg PO DAILY #15 tab Nicotine 14Mg/24Hr Patch [Habitrol] 1 patch TRANSDERM DAILY Ipratropium-Albuterol Nebulize [Duoneb 0.5 mg-3 mg/3 ml Soln] 3 ml INHALATION RT-QID ALPRAZolam [Xanax] 0.25 mg PO TID PRN #30 tab PRN Reason: Anxiety Amoxic-Pot Clav 875-125Mg [Augmentin 875-125] 1 tab PO Q12HR 5 Days #10 tab predniSONE See Taper PO DAILY HYDROcodone/APAP 7.5-325MG [[place] 7.5-325] 1 tab PO Q6H PRN PRN Reason: Pain Folic Acid 1 mg PO DAILY Famotidine [Pepcid] 20 mg PO BID Lidocaine [Aspercreme Patch] 1 patch TRANSDERM DAILY PRN PRN Reason: Pain Warfarin [Coumadin] 5 mg PO DIRECTED Discontinued Enoxaparin [Lovenox] 80 mg SQ DIRECTED Discharge Medication List Melatonin 5 mg PO HS 11/14/18 [History] Montelukast [Singulair] 10 mg PO HS #30 tab 11/17/18 [Rx] Fluticasone/Salmeterol [Fluticasone-Salmeterol 232-14] 1 puff INHALATION RT-BID 04/29/19 [History] Gabapentin 800 mg PO Q6H PRN 04/29/19 [History] amLODIPine [Norvasc] 10 mg PO DAILY 04/29/19 [History] Albuterol Inhaler [Ventolin Hfa Inhaler] 1 - 2 puff INHALATION RT-Q6H PRN 05/11/19 [History] Escitalopram [Lexapro] 10 mg PO DAILY #15 tab 05/15/19 [Rx] Nicotine 14Mg/24Hr Patch [Habitrol] 1 patch TRANSDERM DAILY 06/04/19 [History] Ipratropium-Albuterol Nebulize [Duoneb 0.5 mg-3 mg/3 ml Soln] 3 ml INHALATION RT-QID 06/13/19 [History] ALPRAZolam [Xanax] 0.25 mg PO TID PRN #30 tab 06/15/19 [Rx] Amoxic-Pot Clav 875-125Mg [Augmentin 875-125] 1 tab PO Q12HR 5 Days #10 tab 06/24/19 [Rx] Famotidine [Pepcid] 20 mg PO BID 06/29/19 [History] Folic Acid 1 mg PO DAILY 06/29/19 [History] HYDROcodone/APAP 7.5-325MG [[place] 7.5-325] 1 tab PO Q6H PRN 06/29/19 [History] predniSONE See Taper PO DAILY 06/29/19 [History] Lidocaine [Aspercreme Patch] 1 patch TRANSDERM DAILY PRN 07/03/19 [History] Warfarin [Coumadin] 5 mg PO DIRECTED 07/03/19 [History] Itraconazole [Sporanox] 200 mg PO DAILY cap 07/05/19 [Rx] traMADol HCL [Ultram] 50 mg PO Q8HR PRN 3 Days #9 tab 07/05/19 [Rx] Follow up Appointment(s)/Referral(s): Urszula Carrasco MD [Primary Care Provider] - 1-2 days Discharge Disposition: HOME SELF-CARE
[2019-07-05] MEDS ORDERED: WARFARIN 2 MG TAB PO ONE (18:00)
== END 2019-07-05 14:45 | disposition home or self-care (01) | DRG 190 ==
LOC: EC 18:13 → 4MS4W 19:54 → OBSVTOIN 07-05 08:51
PROVIDERS: ADMIT Internal Medicine; ATTEND Internal Medicine
DX: J44.1 Chronic obstructive pulmonary disease with (acute) exacerbation (principal); J96.21 Acute and chronic respiratory failure with hypoxia; J96.22 Acute and chronic respiratory failure with hypercapnia; J16.8 Pneumonia due to other specified infectious organisms; J85.1 Abscess of lung with pneumonia; J98.11 Atelectasis; M87.812 Other osteonecrosis, left shoulder; J44.0 Chronic obstructive pulmonary disease with (acute) lower respiratory infection; E11.9 Type 2 diabetes mellitus without complications; F17.200 Nicotine dependence, unspecified, uncomplicated; F32.9 Major depressive disorder, single episode, unspecified; F41.0 Panic disorder [episodic paroxysmal anxiety]; I69.931 Monoplegia of upper limb following unspecified cerebrovascular disease affecting right dominant side; G89.4 Chronic pain syndrome; H54.61 Unqualified visual loss, right eye, normal vision left eye; I10 Essential (primary) hypertension; I25.10 Atherosclerotic heart disease of native coronary artery without angina pectoris; I25.2 Old myocardial infarction; K21.9 Gastro-esophageal reflux disease without esophagitis; R79.1 Abnormal coagulation profile; R07.89 Other chest pain; R91.8 Other nonspecific abnormal finding of lung field; M75.01 Adhesive capsulitis of right shoulder; E66.9 Obesity, unspecified; Z68.30 Body mass index [BMI] 30.0-30.9, adult; Z99.81 Dependence on supplemental oxygen; Z87.01 Personal history of pneumonia (recurrent); Z86.718 Personal history of other venous thrombosis and embolism; Z86.711 Personal history of pulmonary embolism; Z79.01 Long term (current) use of anticoagulants; Z79.899 Other long term (current) drug therapy; Z91.010 Allergy to peanuts; Z80.51 Family history of malignant neoplasm of kidney; Z80.8 Family history of malignant neoplasm of other organs or systems; Z82.5 Family history of asthma and other chronic lower respiratory diseases
CPT/HCPCS: 36415; 71046; 80048; 80053; 83735; 83880; 84484; 85025; 85610; 85730; 94640; 94760; 96374; 99291

== ENCOUNTER 2019-07-07 15:51 | Emergency (ER) | payer OTHER ==
--- NOTE | 2019-07-07 16:04 | ED ---
General Adult HPI - General Stated complaint: Abn labs Time Seen by Provider: 07/07/19 15:54 Source: patient, RN notes reviewed Mode of arrival: ambulatory Limitations: no limitations - History of Present Illness Initial comments: 59-year-old male with a complicated past medical history presents to the emergency department for multiple complaints. Patient had a fall yesterday. Patient slipped on the ice outside and fell onto his left shoulder. Patient did not hit his head. He denies any headache or neck pain. Patient's only complaint is left shoulder pain. States he has chronic left shoulder pain and needs replacement but it is a little but worse than normal. However patient's visiting nurse thought he should be sent in because his Coumadin level was 4.1.patient denies any lightheadedness or dizziness preceding this fall. States it was purely mechanical. Patient has no other complaints at this time including shortness of breath, chest pain, abdominal pain, nausea or vomiting, headache, or visual changes. - Related Data Home Medications Medication Instructions Recorded Confirmed Melatonin 5 mg PO HS 11/14/18 07/03/19 Fluticasone/Salmeterol 1 puff INHALATION RT-BID 04/29/19 07/03/19 [Fluticasone-Salmeterol 232-14] Gabapentin 800 mg PO Q6H PRN 04/29/19 07/03/19 amLODIPine [Norvasc] 10 mg PO DAILY 04/29/19 07/03/19 Albuterol Inhaler [Ventolin Hfa 1 - 2 puff INHALATION RT-Q6H PRN 05/11/19 07/03/19 Inhaler] Nicotine 14Mg/24Hr Patch [Habitrol] 1 patch TRANSDERM DAILY 06/04/19 07/03/19 Ipratropium-Albuterol Nebulize 3 ml INHALATION RT-QID 06/13/19 07/03/19 [Duoneb 0.5 mg-3 mg/3 ml Soln] Famotidine [Pepcid] 20 mg PO BID 06/29/19 07/03/19 Folic Acid 1 mg PO DAILY 06/29/19 07/03/19 HYDROcodone/APAP 7.5-325MG [Warren 1 tab PO Q6H PRN 06/29/19 07/03/19 7.5-325] predniSONE See Taper PO DAILY 06/29/19 07/03/19 Lidocaine [Aspercreme Patch] 1 patch TRANSDERM DAILY PRN 07/03/19 07/03/19 Warfarin [Coumadin] 5 mg PO DIRECTED 07/03/19 07/03/19 Previous Rx's Medication Instructions Recorded Montelukast [Singulair] 10 mg PO HS #30 tab 11/17/18 Escitalopram [Lexapro] 10 mg PO DAILY #15 tab 05/15/19 ALPRAZolam [Xanax] 0.25 mg PO TID PRN #30 tab 06/15/19 Amoxic-Pot Clav 875-125Mg 1 tab PO Q12HR 5 Days #10 tab 06/24/19 [Augmentin 875-125] Itraconazole [Sporanox] 200 mg PO DAILY cap 07/05/19 traMADol HCL [Ultram] 50 mg PO Q8HR PRN 3 Days #9 tab 07/05/19 Allergies Allergy/AdvReac Type Severity Reaction Status Date / Time peanut [Peanut Butter] AdvReac Nausea & Verified 07/03/19 19:53 Vomiting & Diarrhea Review of Systems ROS Statement: Those systems with pertinent positive or pertinent negative responses have been documented in the HPI. ROS Other: All systems not noted in ROS Statement are negative. 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 Last Myocardial Infarction Date:: unknown History of Any Multi-Drug Resistant Organisms: None Reported Past Surgical History: Orthopedic Surgery Additional Past Surgical History / Comment(s): metal plate left hand middle finger, right eye enucleation. Past Anesthesia/Blood Transfusion Reactions: No Reported Reaction Past Psychological History: Anxiety, Depression, Panic Disorder Additional Psychological History / Comment(s): Lives in apartment, 17 steps to climb.Has a nebulizer/oxygen. 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 - Past Family History Mother Family Medical History: Cancer Additional Family Medical History / Comment(s): Pt believes his Mom of Kidney Cancer Father Family Medical History: Cancer, COPD, Respiratory Disorder Additional Family Medical History / Comment(s): Melanoma General Exam General appearance: alert, in no apparent distress Head exam: Present: atraumatic (No evidence of trauma whatsoever noted to the head), normocephalic, normal inspection Eye exam: Present: normal appearance (pt does have a right prosthetic noted), PERRL, EOMI. Absent: scleral icterus, conjunctival injection, periorbital swelling ENT exam: Present: normal exam, normal oropharynx, mucous membranes moist, TM's normal bilaterally, normal external ear exam Neck exam: Present: normal inspection, full ROM. Absent: tenderness, meningismus, lymphadenopathy Respiratory exam: Present: normal lung sounds bilaterally. Absent: respiratory distress, wheezes, rales, rhonchi, stridor Cardiovascular Exam: Present: regular rate, normal rhythm, normal heart sounds. Absent: systolic murmur, diastolic murmur, rubs, gallop, clicks GI/Abdominal exam: Present: soft, normal bowel sounds, other (No contusions noted). Absent: distended, tenderness, guarding, rebound, rigid Back exam: Absent: CVA tenderness (R), CVA tenderness (L), vertebral tenderness, other (No contusions noted) Neurological exam: Present: alert, oriented X3, CN II-XII intact, other (GCS 15) Course Vital Signs 07/07/19 16:10 Temperature 97.4 F L Pulse Rate 104 H Respiratory 20 Rate Blood Pressure 121/80 O2 Sat by Pulse 98 Oximetry Medical Decision Making - Medical Decision Making Patient presents for mechanical fall. Patient was sent in by his home health nurse because of his high INR of 4.0. She did not hit his head. His only complaint is worsening chronic left shoulder pain. Lab work was obtained. CBC is unremarkable. Hemoglobin is 11.9 which is stable with patient's past hemoglobin readings. INR is 4.0. Patient is currently on Coumadin for a PE/DVT. Patient started on this several weeks ago. He is denying any symptoms related to PE or DVT. CMP is unremarkable. CO2 is 32 which is likely related to COPD. 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 There is no change compared to recent exam. Patient is well aware of this stating he has had avascular necrosis and needs to get a shoulder replacement. States his doctor is referring him to [place] for this. Patient will hold Coumadin for the next 2 days. He will need to get this rechecked in 2 days' time and he will need to follow up closely with primary care. - Lab Data Result diagrams: 07/07/19 17:10 07/07/19 16:00 Lab Results 07/07/19 07/07/19 07/07/19 Range/Units 16:00 17:10 17:10 WBC 8.9 (3.8-10.6) k/uL RBC 3.45 L (4.30-5.90) m/uL Hgb 11.9 L (13.0-17.5) gm/dL Hct 34.7 L (39.0-53.0) % MCV 100.6 H (80.0-100.0) fL MCH 34.5 (25.0-35.0) pg MCHC 34.3 (31.0-37.0) g/dL RDW 16.0 H (11.5-15.5) % Plt Count 297 (150-450) k/uL Neutrophils % 90 % Lymphocytes % 4 % Monocytes % 5 % Eosinophils % 0 % Basophils % 1 % Neutrophils # 8.0 H (1.3-7.7) k/uL Lymphocytes # 0.4 L (1.0-4.8) k/uL Monocytes # 0.4 (0-1.0) k/uL Eosinophils # 0.0 (0-0.7) k/uL Basophils # 0.0 (0-0.2) k/uL Anisocytosis Slight Macrocytosis Slight PT 38.5 H (9.0-12.0) sec INR 4.0 H (<1.2) APTT 33.4 H (22.0-30.0) sec Sodium 136 L (137-145) mmol/L Potassium 4.6 (3.5-5.1) mmol/L Chloride 99 (98-107) mmol/L Carbon Dioxide 32 H (22-30) mmol/L Anion Gap 5 mmol/L BUN 15 (9-20) mg/dL Creatinine 0.46 L (0.66-1.25) mg/dL Est GFR (CKD-EPI)AfAm >90 (>60 ml/min/1.73 sqM) Est GFR (CKD-EPI)NonAf >90 (>60 ml/min/1.73 sqM) Glucose 179 H (74-99) mg/dL Calcium 9.1 (8.4-10.2) mg/dL Total Bilirubin 0.6 (0.2-1.3) mg/dL AST 34 (17-59) U/L ALT 49 (21-72) U/L Alkaline Phosphatase 40 (38-126) U/L Total Protein 6.3 (6.3-8.2) g/dL Albumin 3.8 (3.5-5.0) g/dL Disposition Clinical Impression: Chronic left shoulder pain, Elevated INR, Fall Disposition: HOME SELF-CARE Condition: Good Instructions (If sedation given, give patient instructions): Fall Prevention (ED) Additional Instructions: Please hold Coumadin for 2 days and have Coumadin levels rechecked in 2 days. Follow-up with your primary care provider closely. Return to the emergency department if you have any worsening symptoms. Is patient prescribed a controlled substance at d/c from ED?: No Referrals: Urszula Carrasco MD [Primary Care Provider] - 1-2 days Time of Disposition: 18:28
[2019-07-07 16:18] VITALS: TEMP 97.4
[2019-07-07 16:32] LABS: ALT 49 U/L (21-72); AST 34 U/L (17-59); African American GFR (CKD) >90 (>60 ml/min/1.73 sqM); Albumin 3.8 g/dL (3.5-5.0); Alkaline Phosphatase 40 U/L (38-126); Anion Gap 5 mmol/L; Blood Urea Nitrogen 15 mg/dL (9-20); Calcium 9.1 mg/dL (8.4-10.2); Carbon Dioxide 32 mmol/L (22-30); Chloride 99 mmol/L (98-107); Glucose 179 mg/dL (74-99); Non-African American GFR(CKD) >90 (>60 ml/min/1.73 sqM); Potassium 4.6 mmol/L (3.5-5.1); Sodium 136 mmol/L (137-145); Total Bilirubin 0.6 mg/dL (0.2-1.3); Total Protein 6.3 g/dL (6.3-8.2)
--- NOTE | 2019-07-07 16:55 | XR ---
EXAMINATION TYPE: XR shoulder complete LT DATE OF EXAM: 07/07/2019 COMPARISON: 06/18/2019 HISTORY: Chronic pain TECHNIQUE: 06/18/2019 FINDINGS: There is narrowing of the glenohumeral joint space. There is sclerosis and deformity of the articular surface of the humeral head. I see no acute fracture. IMPRESSION: There is evidence of chronic avascular necrosis of the humeral head with some collapse of the articular surface. No change compared to recent exam.
[2019-07-07 17:39] LABS: Anisocytosis Slight; Basophils % (A) 1 %; Eosinophils % (A) 0 %; HCT 34.7 % (39.0-53.0); HGB 11.9 gm/dL (13.0-17.5); Lymphocytes # (A) 0.4 k/uL (1.0-4.8); Lymphocytes % (A) 4 %; MCH 34.5 pg (25.0-35.0); MCHC 34.3 g/dL (31.0-37.0); MCV 100.6 fL (80.0-100.0); Macrocytosis Slight; Mean Platelet Volume 5.2; Monocytes # (A) 0.4 k/uL (0-1.0); Monocytes % (A) 5 %; Neutrophils % (A) 90 %; Platelet Count 297 k/uL (150-450); RBC 3.45 m/uL (4.30-5.90); WBC 8.9 k/uL (3.8-10.6)
[2019-07-07 17:41] LABS: Partial Thromboplastin Time 33.4 sec (22.0-30.0); Prothrombin Time 38.5 sec (9.0-12.0)
[2019-07-07 19:10] VITALS: BP 133/82; PULSE 68; RESP 16
== END 2019-07-07 19:12 | disposition home or self-care (01) ==
LOC: EC 15:51
DX: M25.512 Pain in left shoulder (principal); G89.29 Other chronic pain; R79.1 Abnormal coagulation profile; I96 Gangrene, not elsewhere classified; J44.9 Chronic obstructive pulmonary disease, unspecified; I10 Essential (primary) hypertension; I25.2 Old myocardial infarction; J96.11 Chronic respiratory failure with hypoxia; H54.61 Unqualified visual loss, right eye, normal vision left eye; F41.9 Anxiety disorder, unspecified; Z87.891 Personal history of nicotine dependence; Z91.010 Allergy to peanuts; Z79.51 Long term (current) use of inhaled steroids; Z79.01 Long term (current) use of anticoagulants; Z79.52 Long term (current) use of systemic steroids; Z79.899 Other long term (current) drug therapy; Z86.711 Personal history of pulmonary embolism; Z86.718 Personal history of other venous thrombosis and embolism; Z86.73 Personal history of transient ischemic attack (TIA), and cerebral infarction without residual deficits; Z99.81 Dependence on supplemental oxygen; Z87.828 Personal history of other (healed) physical injury and trauma; Z97.0 Presence of artificial eye; Z82.5 Family history of asthma and other chronic lower respiratory diseases; W00.0XXA Fall on same level due to ice and snow, initial encounter; Y92.89 Other specified places as the place of occurrence of the external cause
CPT/HCPCS: 36415; 80053; 85025; 85610; 85730; 99284

== ENCOUNTER 2019-07-19 10:41 | Observation (INO) | payer OTHER ==
[2019-07-19] MEDS ORDERED: methylPREDNISolone SOD SUCCI 125 MG/2 ML VIAL IV STA (10:55)
[2019-07-19] MEDS ORDERED: IPRATROPIUM 0.5 MG/2.5 ML NEBU INHALATION STA (10:55)
[2019-07-19] MEDS ORDERED: ALBUTEROL NEBULIZED 2.5 MG/3 ML INHALATION STA (10:55)
--- NOTE | 2019-07-19 10:58 | ED ---
General Adult HPI - General Chief complaint: Shortness of Breath Stated complaint: CLEMENCIA Time Seen by Provider: 07/19/19 10:50 Source: patient, EMS, RN notes reviewed, old records reviewed Mode of arrival: EMS Limitations: no limitations - History of Present Illness Initial comments: This is a 59-year-old male with past medical history significant for a fungal lung infection as well as severe COPD. Patient is on oxygen at home. Patient states he has been having a harder time breathing last couple days but this morning it was very bad for him so he decided to call EMS. Patient states he continues to cough but has been chronic and there is been no change per patient states he has had no fever chills per patient denies any chest pain or palpitations. Patient denies any abdominal pain. Patient states he has swelling in his legs but he always has swelling in his legs. Patient states he has a history of blood clots 1 his leg and wonders lung but he is on Coumadin at this time. - Related Data Home Medications Medication Instructions Recorded Confirmed Melatonin 5 mg PO HS 11/14/18 07/03/19 Fluticasone/Salmeterol 1 puff INHALATION RT-BID 04/29/19 07/03/19 [Fluticasone-Salmeterol 232-14] Gabapentin 800 mg PO Q6H PRN 04/29/19 07/03/19 amLODIPine [Norvasc] 10 mg PO DAILY 04/29/19 07/03/19 Albuterol Inhaler [Ventolin Hfa 1 - 2 puff INHALATION RT-Q6H PRN 05/11/19 07/03/19 Inhaler] Nicotine 14Mg/24Hr Patch [Habitrol] 1 patch TRANSDERM DAILY 06/04/19 07/03/19 Ipratropium-Albuterol Nebulize 3 ml INHALATION RT-QID 06/13/19 07/03/19 [Duoneb 0.5 mg-3 mg/3 ml Soln] Famotidine [Pepcid] 20 mg PO BID 06/29/19 07/03/19 Folic Acid 1 mg PO DAILY 06/29/19 07/03/19 HYDROcodone/APAP 7.5-325MG [Belk 1 tab PO Q6H PRN 06/29/19 07/03/19 7.5-325] predniSONE See Taper PO DAILY 06/29/19 07/03/19 Lidocaine [Aspercreme Patch] 1 patch TRANSDERM DAILY PRN 07/03/19 07/03/19 Warfarin [Coumadin] 5 mg PO DIRECTED 07/03/19 07/03/19 Previous Rx's Medication Instructions Recorded Montelukast [Singulair] 10 mg PO HS #30 tab 11/17/18 Escitalopram [Lexapro] 10 mg PO DAILY #15 tab 05/15/19 ALPRAZolam [Xanax] 0.25 mg PO TID PRN #30 tab 06/15/19 Amoxic-Pot Clav 875-125Mg 1 tab PO Q12HR 5 Days #10 tab 06/24/19 [Augmentin 875-125] Itraconazole [Sporanox] 200 mg PO DAILY cap 07/05/19 traMADol HCL [Ultram] 50 mg PO Q8HR PRN 3 Days #9 tab 07/05/19 Allergies Allergy/AdvReac Type Severity Reaction Status Date / Time peanut [Peanut Butter] AdvReac Nausea & Verified 07/03/19 19:53 Vomiting & Diarrhea Review of Systems ROS Statement: Those systems with pertinent positive or pertinent negative responses have been documented in the HPI. ROS Other: All systems not noted in ROS Statement are negative. 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 Last Myocardial Infarction Date:: unknown History of Any Multi-Drug Resistant Organisms: None Reported Past Surgical History: Orthopedic Surgery Additional Past Surgical History / Comment(s): metal plate left hand middle finger, right eye enucleation. Past Anesthesia/Blood Transfusion Reactions: No Reported Reaction Past Psychological History: Anxiety, Depression, Panic Disorder Smoking Status: Former smoker Past Alcohol Use History: Occasional Past Drug Use History: Marijuana - Past Family History Mother Family Medical History: Cancer Additional Family Medical History / Comment(s): Pt believes his Mom of Kidney Cancer Father Family Medical History: Cancer, COPD, Respiratory Disorder Additional Family Medical History / Comment(s): Melanoma General Exam - General Exam Comments Initial Comments: GENERAL: Patient is well-developed and well-nourished. Patient is nontoxic and well- hydrated and is in mild distress. ENT: Neck is soft and supple. No significant lymphadenopathy is noted. Oropharynx i s clear. Moist mucous membranes. Neck has full range of motion without eliciting any pain. EYES: The sclera were anicteric and conjunctiva were pink and moist. Extraocular movements were intact and pupils were equal round and reactive to light. Eyelids were unremarkable. PULMONARY: She has expiratory wheezing bilaterally CARDIOVASCULAR: There is a regular rate and rhythm without any murmurs gallops or rubs. ABDOMEN: Soft and nontender with normal bowel sounds. SKIN: Skin is clear with no lesions or rashes and otherwise unremarkable. NEUROLOGIC: Patient is alert and oriented x3. Cranial nerves II through XII are grossly intact. Motor and sensory are also intact. Normal speech, volume and content. Symmetrical smile. MUSCULOSKELETAL: Normal extremities with adequate strength and full range of motion. 1+ edema LYMPHATICS: No significant lymphadenopathy is noted PSYCHIATRIC: Normal psychiatric evaluation. Limitations: no limitations Course Vital Signs 07/19/19 07/19/19 07/19/19 10:50 10:53 11:06 Temperature 98.2 F Pulse Rate 98 100 Respiratory 18 20 Rate Blood Pressure 140/86 O2 Sat by Pulse 97 Oximetry 07/19/19 07/19/19 07/19/19 11:22 11:31 11:51 Temperature Pulse Rate 101 H 106 H Respiratory 20 Rate Blood Pressure 137/79 O2 Sat by Pulse 99 96 Oximetry Medical Decision Making - Medical Decision Making EKG shows sinus tachycardia at 107 bpm WI interval 124 tresses 82 QT interval 334 QTC is 445. Patient's EKG shows no ST segment elevation or depression. Chest x-ray shows no acute changes there still is an opacification in the right upper lobe. I gave the patient multiple breathing treatments in the emergency department as well as steroids. After breathing treatment patient did some better but still was having shortness of breath. I spoke with Dr. Martinez and she agreed to admit the patient admitted the patient wrote admitting orders. - Lab Data Result diagrams: 07/19/19 11:11 07/19/19 11:11 Lab Results 07/19/19 07/19/19 07/19/19 Range/Units 11:11 11:11 11:11 WBC 12.0 H (3.8-10.6) k/uL RBC 3.75 L (4.30-5.90) m/uL Hgb 13.0 (13.0-17.5) gm/dL Hct 37.3 L (39.0-53.0) % MCV 99.2 (80.0-100.0) fL MCH 34.6 (25.0-35.0) pg MCHC 34.9 (31.0-37.0) g/dL RDW 15.3 (11.5-15.5) % Plt Count 323 (150-450) k/uL Neutrophils % 81 % Lymphocytes % 12 % Monocytes % 5 % Eosinophils % 1 % Basophils % 0 % Neutrophils # 9.7 H (1.3-7.7) k/uL Lymphocytes # 1.5 (1.0-4.8) k/uL Monocytes # 0.6 (0-1.0) k/uL Eosinophils # 0.1 (0-0.7) k/uL Basophils # 0.0 (0-0.2) k/uL Macrocytosis Slight PT 26.4 H (9.0-12.0) sec INR 2.7 H (<1.2) APTT 39.8 H (22.0-30.0) sec Sodium 136 L (137-145) mmol/L Potassium 3.9 (3.5-5.1) mmol/L Chloride 100 (98-107) mmol/L Carbon Dioxide 31 H (22-30) mmol/L Anion Gap 5 mmol/L BUN 4 L (9-20) mg/dL Creatinine 0.41 L (0.66-1.25) mg/dL Est GFR (CKD-EPI)AfAm >90 (>60 ml/min/1.73 sqM) Est GFR (CKD-EPI)NonAf >90 (>60 ml/min/1.73 sqM) Glucose 91 (74-99) mg/dL Calcium 9.3 (8.4-10.2) mg/dL Total Bilirubin 0.7 (0.2-1.3) mg/dL AST 33 (17-59) U/L ALT 43 (21-72) U/L Alkaline Phosphatase 54 (38-126) U/L Troponin I (0.000-0.034) ng/mL Total Protein 5.8 L (6.3-8.2) g/dL Albumin 3.7 (3.5-5.0) g/dL 07/19/19 Range/Units 11:11 WBC (3.8-10.6) k/uL RBC (4.30-5.90) m/uL Hgb (13.0-17.5) gm/dL Hct (39.0-53.0) % MCV (80.0-100.0) fL MCH (25.0-35.0) pg MCHC (31.0-37.0) g/dL RDW (11.5-15.5) % Plt Count (150-450) k/uL Neutrophils % % Lymphocytes % % Monocytes % % Eosinophils % % Basophils % % Neutrophils # (1.3-7.7) k/uL Lymphocytes # (1.0-4.8) k/uL Monocytes # (0-1.0) k/uL Eosinophils # (0-0.7) k/uL Basophils # (0-0.2) k/uL Macrocytosis PT (9.0-12.0) sec INR (<1.2) APTT (22.0-30.0) sec Sodium (137-145) mmol/L Potassium (3.5-5.1) mmol/L Chloride (98-107) mmol/L Carbon Dioxide (22-30) mmol/L Anion Gap mmol/L BUN (9-20) mg/dL Creatinine (0.66-1.25) mg/dL Est GFR (CKD-EPI)AfAm (>60 ml/min/1.73 sqM) Est GFR (CKD-EPI)NonAf (>60 ml/min/1.73 sqM) Glucose (74-99) mg/dL Calcium (8.4-10.2) mg/dL Total Bilirubin (0.2-1.3) mg/dL AST (17-59) U/L ALT (21-72) U/L Alkaline Phosphatase (38-126) U/L Troponin I <0.012 (0.000-0.034) ng/mL Total Protein (6.3-8.2) g/dL Albumin (3.5-5.0) g/dL Disposition Clinical Impression: COPD exacerbation Disposition: HOME SELF-CARE Is patient prescribed a controlled substance at d/c from ED?: No Referrals: Urszula Carrasco MD [Primary Care Provider] - 1-2 days Time of Disposition: 12:18
[2019-07-19 11:26] LABS: Basophils % (A) 0 %; Eosinophils # (A) 0.1 k/uL (0-0.7); Eosinophils % (A) 1 %; HCT 37.3 % (39.0-53.0); Lymphocytes # (A) 1.5 k/uL (1.0-4.8); Lymphocytes % (A) 12 %; MCH 34.6 pg (25.0-35.0); MCHC 34.9 g/dL (31.0-37.0); MCV 99.2 fL (80.0-100.0); Macrocytosis Slight; Mean Platelet Volume 5.3; Monocytes # (A) 0.6 k/uL (0-1.0); Monocytes % (A) 5 %; Neutrophils # (A) 9.7 k/uL (1.3-7.7); Neutrophils % (A) 81 %; Platelet Count 323 k/uL (150-450); RBC 3.75 m/uL (4.30-5.90); RDW 15.3 % (11.5-15.5)
[2019-07-19 11:35] LABS: ALT 43 U/L (21-72); AST 33 U/L (17-59); African American GFR (CKD) >90 (>60 ml/min/1.73 sqM); Albumin 3.7 g/dL (3.5-5.0); Alkaline Phosphatase 54 U/L (38-126); Anion Gap 5 mmol/L; Blood Urea Nitrogen 4 mg/dL (9-20); Calcium 9.3 mg/dL (8.4-10.2); Carbon Dioxide 31 mmol/L (22-30); Chloride 100 mmol/L (98-107); Glucose 91 mg/dL (74-99); INR 2.7 (<1.2); Non-African American GFR(CKD) >90 (>60 ml/min/1.73 sqM); Partial Thromboplastin Time 39.8 sec (22.0-30.0); Potassium 3.9 mmol/L (3.5-5.1); Prothrombin Time 26.4 sec (9.0-12.0); Sodium 136 mmol/L (137-145); Total Bilirubin 0.7 mg/dL (0.2-1.3); Total Protein 5.8 g/dL (6.3-8.2)
--- NOTE | 2019-07-19 11:52 | XR ---
EXAMINATION TYPE: XR chest 2V DATE OF EXAM: 07/19/2019 COMPARISON: NONE HISTORY: Shortness of breath TECHNIQUE: Frontal and lateral views of the chest are obtained. FINDINGS: Scattered senescent parenchymal changes noted. Hyperinflation compatible with COPD. No evidence for infiltrate. No evidence for atelectasis. Stable nodular density right upper lobe. Heart size is stable. Mediastinal structures are stable and grossly unremarkable. No evidence for hilar prominence. Degenerative changes dorsal spine. IMPRESSION: 1. No evidence for acute pulmonary disease.Stable nodular density right upper lobe.
[2019-07-19] MEDS: IPRATROPIUM-ALBUTEROL 3 ML NEB INHALATION PRN (15:11)
[2019-07-19] MEDS ORDERED: ASPERCREME TOPICAL PRN (15:40)
[2019-07-19] MEDS ORDERED: WARFARIN 5 MG TAB PO SCH (15:45)
--- NOTE | 2019-07-19 15:54 | P.HPIM ---
History of Present Illness H&P Date: 07/19/19 Chief Complaint: Shortness of breath Mr. Mallory is a 59-year-old male with a past medical history of COPD, chronic hypoxic respiratory failure on 2 L of home oxygen, CVA, nicotine addiction, coronary artery disease, PE and DVT coming in the hospital with a chief complaint of difficulty in breathing and chest heaviness. Patient states that he has been doing his regular activities at home when he experienced some chest heaviness and difficulty in breathing so came into the hospital for further evaluation. Patient has multiple admissions in the past 2 months for respirat ory issues. He was recently diagnosed with pulmonary embolism and also DVT . Patient states that he has been compliant with his medications. Patient is very anxious and he states that he took breathing treatments at home but did not help him and so he came into the hospital for further evaluation. Patient also complains of left shoulder pain that is ongoing. In the emergency patient had Review of Systems REVIEW OF SYSTEMS: PSYCH: Patient states that he has been anxious since being diagnosed with PE NEURO: No c/o weakness of the extremties, No facial droop, No speech abnormalities. VASCULAR: Mild lower extremity swelling HEMATOLOGIC: No history of easy bleeding and bruising . RESPIRATORY: As per HPI. IMMUNE: Recent history of Fungal infection, pneumonia INTEGUMENT: no rashes OPHTHALMOLOGIC: No blurry vision and no eye discharge : No dysuria or hematuria CARDIAC: No chest pain or paroxysmal nocturnal dyspnea MUSCULOSKELETAL : No Aches or pains in the joints or muscles. GI: No abdominal pain, Nausea or vomiting. No constipation or diarrhea. 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 Last Myocardial Infarction Date:: unknown History of Any Multi-Drug Resistant Organisms: None Reported Past Surgical History: Orthopedic Surgery Additional Past Surgical History / Comment(s): metal plate left hand middle finger, right eye enucleation. Past Anesthesia/Blood Transfusion Reactions: No Reported Reaction Past Psychological History: Anxiety, Depression, Panic Disorder Smoking Status: Former smoker Past Alcohol Use History: Occasional Past Drug Use History: Marijuana - Past Family History Mother Family Medical History: Cancer Additional Family Medical History / Comment(s): Pt believes his Mom of Kidney Cancer Father Family Medical History: Cancer, COPD, Respiratory Disorder Additional Family Medical History / Comment(s): Melanoma Medications and Allergies Home Medications Medication Instructions Recorded Confirmed Type Melatonin 5 mg PO HS 11/14/18 07/19/19 History Montelukast [Singulair] 10 mg PO HS #30 tab 11/17/18 07/19/19 Rx Fluticasone/Salmeterol 1 puff INHALATION RT-BID 04/29/19 07/19/19 History [Fluticasone-Salmeterol 232-14] amLODIPine [Norvasc] 10 mg PO DAILY 04/29/19 07/19/19 History Albuterol Inhaler [Ventolin Hfa 1 - 2 puff INHALATION RT-Q6H PRN 05/11/19 07/19/19 History Inhaler] Escitalopram [Lexapro] 10 mg PO DAILY #15 tab 05/15/19 07/19/19 Rx Nicotine 14Mg/24Hr Patch [Habitrol] 1 patch TRANSDERM DAILY 06/04/19 07/19/19 History Ipratropium-Albuterol Nebulize 3 ml INHALATION RT-QID 06/13/19 07/19/19 History [Duoneb 0.5 mg-3 mg/3 ml Soln] Folic Acid 1 mg PO DAILY 06/29/19 07/19/19 History Lidocaine [Aspercreme Patch] 1 patch TRANSDERM DAILY PRN 07/03/19 07/19/19 History Warfarin [Coumadin] 2.5 - 5 mg PO DIRECTED 07/03/19 07/19/19 History Allergies Allergy/AdvReac Type Severity Reaction Status Date / Time peanut [Peanut Butter] AdvReac Nausea & Verified 07/19/19 12:27 Vomiting & Diarrhea Physical Exam Vitals: Vital Signs Temp Pulse Pulse Resp BP BP Pulse Ox 07/19/19 15:28 96 07/19/19 15:12 92 07/19/19 14:54 98.1 F 97 15 138/78 96 07/19/19 12:54 102 H 20 146/81 2 L 07/19/19 11:51 106 H 20 137/79 96 07/19/19 11:31 101 H 07/19/19 11:22 99 07/19/19 11:06 100 07/19/19 10:53 20 07/19/19 10:50 98.2 F 98 18 140/86 97 Intake and Output 07/19/19 07/19/19 07/19/19 06:59 14:59 22:59 Other: # Voids 1 Weight 76.204 kg GENERAL: The patient is alert and oriented x3, not in any acute distress. Chronically ill appearing HEENT: Pupils are round and equally reacting to light. EOMI. No scleral icterus. No conjunctival pallor. Normocephalic, atraumatic. CARDIOVASCULAR: S1 and S2 present. No murmurs, rubs, or gallops. PULMONARY: Decreased breath sounds in all lung brown. Mild wheezing bilaterally. Scattered crepitation in lower lobes. ABDOMEN: Soft, nontender, nondistended, normoactive bowel sounds. No palpable organomegaly. MUSCULOSKELETAL: No joint swelling or deformity. EXTREMITIES: Mild pitting lower extremity edema NEUROLOGICAL: Gross neurological examination did not reveal any focal deficits. -SKIN: A small abrasion on the lateral side of the left leg. No active bleeding. Results CBC & Chem 7: 07/19/19 11:11 07/19/19 11:11 Labs: Abnormal Lab Results - Last 24 Hours (Table) 07/19/19 07/19/19 07/19/19 Range/Units 11:11 11:11 11:11 WBC 12.0 H (3.8-10.6) k/uL RBC 3.75 L (4.30-5.90) m/uL Hct 37.3 L (39.0-53.0) % Neutrophils # 9.7 H (1.3-7.7) k/uL PT 26.4 H (9.0-12.0) sec INR 2.7 H (<1.2) APTT 39.8 H (22.0-30.0) sec Sodium 136 L (137-145) mmol/L Carbon Dioxide 31 H (22-30) mmol/L BUN 4 L (9-20) mg/dL Creatinine 0.41 L (0.66-1.25) mg/dL Total Protein 5.8 L (6.3-8.2) g/dL Assessment and Plan Assessment: ASSESSMENT Acute on chronic hypoxic/hypercapnic respiratory failure Acute COPD exacerbation Recent history of Acute pulmonary embolism. Recent history of Acute right leg DVT Recent history of Pneumonia with combined fungal and bacterial infection. Stable and improving cavitating right upper lobe abscess. 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 History of Coronary artery disease with history of KS. Ongoing nicotine addiction PLAN: Patient is being treated for acute COPD exacerbation with IV steroids, breathing treatments. He is currently not on any antibiotics. Pulmonary consult has been placed as the patient is well known to their service and coming in with exacerbation. Patient is on anticoagulation with Coumadin and, pharmacy to dose Coumadin for a INR to be 2-3. Patient has been resumed on all home medications. Overall prognosis is guarded due to multiple medical comorbidities. Further recommendations to follow depending on the progress of the patient.
[2019-07-19 17:01] LABS: Glucose,Whole Blood 313 mg/dL (75-99)
[2019-07-19] MEDS: IPRATROPIUM-ALBUTEROL 3 ML NEB INHALATION SCH ×2 (17:16→20:08)
[2019-07-19] MEDS: methylPREDNISolone SOD SUCCI 125 MG/2 ML VIAL IV SCH ×2 (17:24→23:11)
[2019-07-19] MEDS: ESCITALOPRAM 10 MG TAB PO SCH (17:25)
[2019-07-19] MEDS: NICOTINE 14MG/24HR PATCH TRANSDERM SCH (17:25)
[2019-07-19] MEDS: amLODIPine 10 MG TAB PO SCH (17:25)
[2019-07-19] MEDS ORDERED: WARFARIN 2 MG TAB PO ONE (18:00)
[2019-07-19] MEDS ORDERED: FLUTICASONE INHALATION SCH (20:00)
[2019-07-19] MEDS ORDERED: SALMETEROL INHALATION SCH (20:00)
[2019-07-19 20:10] LABS: Glucose,Whole Blood 222 mg/dL (75-99)
[2019-07-19] MEDS: SYMBICORT 80-4.5 MCG INHALER INHALATION SCH (20:10)
[2019-07-19] MEDS: INSULIN ASPART (NovoLOG) 100 UNIT/ML VIAL SQ SCH (20:14)
[2019-07-19] MEDS: MONTELUKAST 10 MG TAB PO SCH (20:15)
[2019-07-19] MEDS: MELATONIN 5 MG TABLET PO SCH (20:15)
[2019-07-20] MEDS: IPRATROPIUM-ALBUTEROL 3 ML NEB INHALATION PRN ×2 (00:05→03:56)
[2019-07-20] MEDS: methylPREDNISolone SOD SUCCI 125 MG/2 ML VIAL IV SCH ×3 (05:26→17:51)
[2019-07-20 06:56] LABS: Basophils % (A) 0 %; Eosinophils % (A) 0 %; HCT 38.3 % (39.0-53.0); HGB 12.6 gm/dL (13.0-17.5); Lymphocytes # (A) 0.3 k/uL (1.0-4.8); Lymphocytes % (A) 3 %; MCHC 32.8 g/dL (31.0-37.0); MCV 100.7 fL (80.0-100.0); Macrocytosis Slight; Monocytes # (A) 0.2 k/uL (0-1.0); Monocytes % (A) 2 %; Neutrophils # (A) 9.9 k/uL (1.3-7.7); Neutrophils % (A) 94 %; Platelet Count 320 k/uL (150-450); RBC 3.81 m/uL (4.30-5.90); WBC 10.5 k/uL (3.8-10.6)
[2019-07-20 07:11] LABS: INR 2.1 (<1.2); Prothrombin Time 20.1 sec (9.0-12.0)
[2019-07-20 07:13] LABS: Glucose,Whole Blood 318 mg/dL (75-99)
[2019-07-20 07:30] LABS: African American GFR (CKD) >90 (>60 ml/min/1.73 sqM); Anion Gap 6 mmol/L; Blood Urea Nitrogen 11 mg/dL (9-20); Calcium 9.2 mg/dL (8.4-10.2); Carbon Dioxide 29 mmol/L (22-30); Chloride 101 mmol/L (98-107); Glucose 195 mg/dL (74-99); Non-African American GFR(CKD) >90 (>60 ml/min/1.73 sqM); Potassium 3.7 mmol/L (3.5-5.1); Sodium 136 mmol/L (137-145)
[2019-07-20] MEDS: amLODIPine 10 MG TAB PO SCH (07:41)
[2019-07-20] MEDS: NICOTINE 14MG/24HR PATCH TRANSDERM SCH (07:41)
[2019-07-20] MEDS: FOLIC ACID 1 MG TAB PO SCH (07:41)
[2019-07-20] MEDS: ESCITALOPRAM 10 MG TAB PO SCH (07:41)
[2019-07-20] MEDS: INSULIN ASPART (NovoLOG) 100 UNIT/ML VIAL SQ SCH ×4 (07:41→20:28)
[2019-07-20] MEDS: IPRATROPIUM-ALBUTEROL 3 ML NEB INHALATION SCH ×4 (09:27→20:21)
[2019-07-20] MEDS: BUDESONIDE 1 MG/2 ML NEBU INHALATION SCH ×2 (09:27→20:21)
[2019-07-20] MEDS: FORMOTEROL FUMARATE 20 MCG/2 ML NEBU INHALATION SCH ×2 (09:27→20:21)
--- NOTE | 2019-07-20 10:15 | P.CNPUL ---
History of Present Illness Consult date: 07/20/19 Reason for consult: dyspnea, cough, COPD Chief complaint: Shortness of breath, cough History of present illness: This is a 59-year-old male patient of Dr. Torres, known to our service from his previous admissions for complications related to his COPD, and recent history of right upper lobe fungal pneumonia treated with Sporanox. Patient has an extensive history of tobacco dependence, he states he has not smoked for over 1 week. He was recently hospitalized earlier in the month and discharged home on 07/05/2019 after being treated for exacerbation of COPD, left shoulder pain, and atypical chest pain that was thought to be related to his chronic cough. His baseline FEV1 is 36% of predicted and patient is on home oxygen, nebulized treatments. Patient had completed his Sporanox. He states he is compliant with his breathing treatments and medications. His most recent chest x-ray during his previous admission showed continued improvement in the appearance of the right upper lobe fungal pneumonia. Patient was also recently diagnosed with pulmonary embolism and DVT in May 2019 for which he was started on Coumadin. On 07/19/2019 patient presented to the emergency department with complaints of worsening shortness of breath for the last couple days, patient has a chronic cough, which has increased, and patient is producing large amounts of sputum, he denies any hemoptysis, he cannot describe the color of the sputum. He states he feels like he is burning up. He does admit to sternal chest discomfort with coughing. No headaches, no nausea, vomiting or diarrhea, no increased swelling in his lower extremities. Chest x-ray showed no evidence for acute pulmonary disease and stable nodular density in the right upper lobe. EKG showed sinus tachycardia with no acute ischemic changes. Lab work showed a lot of blood cell count of 12.0, hemoglobin of 13.0, platelet count of 323, INR is therapeutic at 2.7, sodium is 136, potassium is 3.9, CO2 is 31, BUN is 40 and creatinine is 0.41, troponin was negative, LFTs were within normal limits. Patient has been afebrile while in the hospital, pulse ox is 96% on 3 L. He was started on IV steroids, breathing treatments and admitted for further inpatient management. Review of Systems All systems: negative Constitutional: Denies chills, Denies fever Eyes: denies blurred vision, denies pain Ears, nose, mouth and throat: Denies headache, Denies sore throat Cardiovascular: Reports chest pain, Denies shortness of breath Respiratory: Reports congestion, Reports dyspnea, Reports home oxygen, Reports respiratory infections, Reports wheezing, Denies cough Gastrointestinal: Denies abdominal pain, Denies diarrhea, Denies nausea, Denies vomiting Musculoskeletal: Denies myalgias Integumentary: Denies pruritus, Denies rash Neurological: Denies numbness, Denies weakness Psychiatric: Denies anxiety, Denies depression Endocrine: Denies fatigue, Denies weight change Past Medical History Past Medical History: Chest Pain / Angina, COPD, CVA/TIA, Deep Vein Thrombosis (DVT), Hypertension, Myocardial Infarction (SC), Pneumonia, Pulmonary Embolus (PE), Respiratory Disorder, Skin Disorder Additional Past Medical History / Comment(s): 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 Last Myocardial Infarction Date:: unknown History of Any Multi-Drug Resistant Organisms: None Reported Past Surgical History: Orthopedic Surgery Additional Past Surgical History / Comment(s): metal plate left hand middle finger, right eye enucleation. Past Anesthesia/Blood Transfusion Reactions: No Reported Reaction Past Psychological History: Anxiety, Depression, Panic Disorder Additional Psychological History / Comment(s): Lives in apartment, 17 steps to climb.Has a nebulizer/oxygen. 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 - Past Family History Mother Family Medical History: Cancer Additional Family Medical History / Comment(s): Pt believes his Mom of Kidney Cancer Father Family Medical History: Cancer, COPD, Respiratory Disorder Additional Family Medical History / Comment(s): Melanoma Medications and Allergies Home Medications Medication Instructions Recorded Confirmed Type Melatonin 5 mg PO HS 11/14/18 07/19/19 History Montelukast [Singulair] 10 mg PO HS #30 tab 11/17/18 07/19/19 Rx Fluticasone/Salmeterol 1 puff INHALATION RT-BID 04/29/19 07/19/19 History [Fluticasone-Salmeterol 232-14] amLODIPine [Norvasc] 10 mg PO DAILY 04/29/19 07/19/19 History Albuterol Inhaler [Ventolin Hfa 1 - 2 puff INHALATION RT-Q6H PRN 05/11/19 07/19/19 History Inhaler] Escitalopram [Lexapro] 10 mg PO DAILY #15 tab 05/15/19 07/19/19 Rx Nicotine 14Mg/24Hr Patch [Habitrol] 1 patch TRANSDERM DAILY 06/04/19 07/19/19 History Ipratropium-Albuterol Nebulize 3 ml INHALATION RT-QID 06/13/19 07/19/19 History [Duoneb 0.5 mg-3 mg/3 ml Soln] Folic Acid 1 mg PO DAILY 06/29/19 07/19/19 History Lidocaine [Aspercreme Patch] 1 patch TRANSDERM DAILY PRN 07/03/19 07/19/19 History Warfarin [Coumadin] 2.5 - 5 mg PO DIRECTED 07/03/19 07/19/19 History Allergies Allergy/AdvReac Type Severity Reaction Status Date / Time peanut [Peanut Butter] AdvReac Nausea & Verified 07/19/19 12:27 Vomiting & Diarrhea Physical Exam Vitals: Vital Signs Temp Pulse Pulse Resp BP BP Pulse Ox 07/20/19 09:49 96 07/20/19 09:41 92 07/20/19 09:40 92 07/20/19 09:29 92 96 07/20/19 07:00 98.2 F 94 14 126/67 96 07/20/19 04:08 96 07/20/19 03:56 96 07/20/19 02:23 98.2 F 82 18 112/68 97 07/20/19 00:16 92 07/20/19 00:06 92 07/19/19 20:20 98 07/19/19 20:09 100 07/19/19 19:57 97.8 F 102 H 17 129/73 96 07/19/19 19:38 18 07/19/19 15:28 96 07/19/19 15:12 92 07/19/19 14:55 15 07/19/19 14:54 98.1 F 97 15 138/78 96 07/19/19 12:54 102 H 20 146/81 2 L 07/19/19 11:51 106 H 20 137/79 96 07/19/19 11:31 101 H 07/19/19 11:22 99 07/19/19 11:06 100 07/19/19 10:53 20 07/19/19 10:50 98.2 F 98 18 140/86 97 Intake and Output 07/19/19 07/20/19 07/20/19 22:59 06:59 14:59 Intake Total 120 Balance 120 Intake: Oral 120 Other: Voiding Method Toilet Urinal # Voids 1 1 Weight 76.204 kg GENERAL EXAM: Alert, pleasant, 58-year-old white male, on 2 L of oxygen with a pulse ox of 95% comfortable in no apparent distress. HEAD: Normocephalic/atraumatic. EYES: Normal reaction of pupils, equal size in the left eye, patient has a prosthetic right eye. Conjunctiva pink, sclera white. NOSE: Clear with pink turbinates. THROAT: No erythema or exudates. NECK: No masses, no JVD, no thyroid enlargement, no adenopathy. CHEST: No chest wall deformity. Symmetrical expansion. LUNGS: Equal air entry with left lower base inspiratory crackles. No wheezing. Congestive cough CVS: Regular rate and rhythm, normal S1 and S2, no gallops, no murmurs, no rubs ABDOMEN: Soft, nontender. No hepatosplenomegaly, normal bowel sounds, no guarding or rigidity. EXTREMITIES: No clubbing, no edema, no cyanosis, 2+ pulses and upper and lower extremities. Left arm is in a sling MUSCULOSKELETAL: Muscle strength and tone normal. SPINE: No scoliosis or deformity. SKIN: No rashes no wounds CENTRAL NERVOUS SYSTEM: Alert and oriented -3. No focal deficits, tone is normal in all 4 extremities. PSYCHIATRIC: Alert and oriented -3. Appropriate affect. Intact judgment and insight. Results - Laboratory Findings CBC and BMP: 07/20/19 06:20 07/20/19 06:20 PT/INR, D-dimer PT 20.1 sec (9.0-12.0) H 07/20/19 06:20 INR 2.1 (<1.2) H 07/20/19 06:20 Abnormal lab findings: Abnormal Labs 07/19/19 07/19/19 07/19/19 11:11 11:11 11:11 WBC 12.0 H RBC 3.75 L Hgb Hct 37.3 L MCV Neutrophils # 9.7 H Lymphocytes # PT 26.4 H INR 2.7 H APTT 39.8 H Sodium 136 L Carbon Dioxide 31 H BUN 4 L Creatinine 0.41 L Glucose POC Glucose (mg/dL) Total Protein 5.8 L 07/19/19 07/19/19 07/20/19 17:00 20:08 06:20 WBC RBC Hgb Hct MCV Neutrophils # Lymphocytes # PT 20.1 H INR 2.1 H APTT Sodium Carbon Dioxide BUN Creatinine Glucose POC Glucose (mg/dL) 313 H 222 H Total Protein 07/20/19 07/20/19 07/20/19 06:20 06:20 07:11 WBC RBC 3.81 L Hgb 12.6 L Hct 38.3 L MCV 100.7 H Neutrophils # 9.9 H Lymphocytes # 0.3 L PT INR APTT Sodium 136 L Carbon Dioxide BUN Creatinine 0.45 L Glucose 195 H POC Glucose (mg/dL) 318 H Total Protein - Diagnostic Findings Chest x-ray: report reviewed Assessment and Plan Plan: Assessment: #1. Acute exacerbation of chronic obstructive pulmonary disease, chest x-ray showed stable known fungal right upper lobe cavitary pneumonia and patient had completed the course of Sporanox #2. Recent admission for acute exacerbation of COPD, is charged home on 07/05/2019 #3. Recent diagnosis of DVT and pulmonary embolism in May 2019, on the Coumadin, and INR was therapeutic at 2.7 #4. History of fungal pneumonia in the right upper lobe which has been under treatment since March 2019 and is improving radiologically #5. History of severe oxygen-dependent chronic obstructive pulmonary disease with a baseline FEV1 of 36% of predicted #6. Former smoker, currently in remission #7. History of CVA involving the basal ganglia in October 2014 #8. 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 Diabetes mellitus type 2 #10. GERD/reflux #11. History of coronary artery disease with previous myocardial infarction #12. Avascular necrosis of the left humeral head, follows with orthopedic services and pain clinic Plan: Continue with IV steroids, continue with nebulized bronchodilators, we'll switch Symbicort to Pulmicort and Perforomist, will add empiric MX in the form of Augmentin, collect a sputum culture. Chest x-ray has been reviewed, showing improving known fungal right upper lobe pneumonia. We'll treat the patient for acute exacerbation of COPD. We'll continue to follow I performed a history & physical examination of the patient and discussed their management with my nurse practitioner, Jeane Hwang. I reviewed the nurse practitioner's note and agree with the documented findings and plan of care. Lung sounds are positive for left lower lobe inspiratory crackles. The findings and the impression was discussed with the patient. I attest to the documentation by the nurse practitioner. Time with Patient: Greater than 30
[2019-07-20] MEDS: AMOXIC-POT CLAV 875-125MG 1 EACH TAB PO SCH ×2 (10:56→20:29)
[2019-07-20 11:52] LABS: Glucose,Whole Blood 108 mg/dL (75-99)
[2019-07-20] MEDS: SYMBICORT 80-4.5 MCG INHALER INHALATION SCH (16:27)
[2019-07-20 16:58] LABS: Glucose,Whole Blood 215 mg/dL (75-99)
[2019-07-20] MEDS ORDERED: WARFARIN 2.5 MG TAB PO ONE (18:00)
[2019-07-20 20:17] LABS: Glucose,Whole Blood 238 mg/dL (75-99)
[2019-07-20] MEDS: MELATONIN 5 MG TABLET PO SCH (20:28)
[2019-07-20] MEDS: MONTELUKAST 10 MG TAB PO SCH (20:28)
--- NOTE | 2019-07-20 22:45 | P.PN ---
Subjective Progress Note Date: 07/20/19 Principal diagnosis: COPD exacerbation Mr. Mallory is a 59-year-old male with a past medical history of COPD, chronic hypoxic respiratory failure on 2 L of home oxygen, CVA, nicotine addiction, coronary artery disease, PE and DVT coming in the hospital with a chief complaint of difficulty in breathing and chest heaviness. Patient states that he has been doing his regular activities at home when he experienced some chest heaviness and difficulty in breathing so came into the hospital for further evaluation. Patient has multiple admissions in the past 2 months for respirat ory issues. He was recently diagnosed with pulmonary embolism and also DVT . Patient states that he has been compliant with his medications. Patient is very anxious and he states that he took breathing treatments at home but did not help him and so he came into the hospital for further evaluation. Patient also complains of left shoulder pain that is ongoing. On 07/20/2019 -patient is lying in the bed appears to be in no acute distress. He still complains of mild difficulty in breathing. He has been receiving steroids and breathing treatments seems to be responding slowly. Patient denies having any chest pain or palpitations. No fevers chills or riders. No abdominal pain nausea vomiting or diarrhea. No dysuria or hematuria. Patient's medications and labs been reviewed. Active Medications Albuterol/Ipratropium (Duoneb 0.5 Mg-3 Mg/3 Ml Soln) 3 ml INHALATION RT-Q4H PRN PRN Reason: Shortness Of Breath Or Wheezing Last Admin: 07/20/19 03:56 Dose: 3 ml Documented by: Albuterol/Ipratropium (Duoneb 0.5 Mg-3 Mg/3 Ml Soln) 3 ml INHALATION RT-QID [facility] Last Admin: 07/20/19 20:21 Dose: 3 ml Documented by: Amlodipine Besylate (Norvasc) 10 mg PO DAILY [facility] Last Admin: 07/20/19 07:41 Dose: 10 mg Documented by: Amoxicillin/Clavulanate Potassium (Augmentin 875-125) 1 each PO Q12HR [facility] Last Admin: 07/20/19 20:29 Dose: 1 each Documented by: Budesonide (Pulmicort) 1 mg INHALATION RT-BID [facility] Last Admin: 07/20/19 20:21 Dose: 1 mg Documented by: Escitalopram Oxalate (Lexapro) 10 mg PO DAILY [facility] Last Admin: 07/20/19 07:41 Dose: 10 mg Documented by: Folic Acid (Folic Acid) 1 mg PO DAILY [facility] Last Admin: 07/20/19 07:41 Dose: 1 mg Documented by: Formoterol Fumarate (Perforomist) 20 mcg INHALATION RT-BID [facility] Last Admin: 07/20/19 20:21 Dose: 20 mcg Documented by: Insulin Aspart (Novolog) 0 unit SQ [facility]; Protocol Last Admin: 07/20/19 20:28 Dose: 8 unit Documented by: Melatonin (Melatonin) [address] [facility] Last Admin: 07/20/19 20:28 Dose: 5 mg Documented by: Methylprednisolone Sodium Succinate (Solu-Medrol) 60 mg IV Q6HR [facility] Last Admin: 07/20/19 17:51 Dose: 60 mg Documented by: Miscellaneous Information (Coumadin Per Pharmacy) 0 each MISCELLANE DIRECTED PRN PRN Reason: ANTICOAG Montelukast Sodium (Singulair) [address] [facility] Last Admin: 07/20/19 20:28 Dose: 10 mg Documented by: Nicotine (Habitrol 14mg/24hr Patch) 1 patch TRANSDERM DAILY [facility] Last Admin: 07/20/19 07:41 Dose: 1 patch Documented by: Aspercreme ( (Lidocaine) Patch) 1 patch TOPICAL DAILY PRN PRN Reason: Pain Objective - Vital Signs Vital signs: Vital Signs Temp 98.2 F 07/20/19 07:00 Pulse 96 07/20/19 12:47 Resp 14 07/20/19 07:41 BP 126/67 07/20/19 07:00 Pulse Ox 96 07/20/19 09:29 Intake & Output 07/19/19 07/20/19 07/20/19 18:59 06:59 18:59 Intake Total 120 Balance 120 Weight 76.204 kg Intake: Oral 120 Other: Voiding Method Toilet Toilet Urinal Urinal # Voids 1 1 - Exam GENERAL: The patient is alert and oriented x3, not in any acute distress. Chronically ill appearing HEENT: Right eye blind CARDIOVASCULAR: S1 and S2 present. No murmurs, rubs, or gallops. PULMONARY: Decreased breath sounds in all lung brown. Mild wheezing bilaterally. Scattered crepitation in lower lobes. ABDOMEN: Soft, nontender, nondistended, normoactive bowel sounds. No palpable organomegaly. MUSCULOSKELETAL: No joint swelling or deformity. EXTREMITIES: Mild pitting lower extremity edema NEUROLOGICAL: Gross neurological examination did not reveal any focal deficits. -SKIN: A small abrasion on the lateral side of the left leg. No active bleeding. - Labs CBC & Chem 7: 07/20/19 06:20 07/20/19 06:20 Labs: Abnormal Lab Results - Last 24 Hours (Table) 07/19/19 07/19/19 07/20/19 Range/Units 17:00 20:08 06:20 RBC (4.30-5.90) m/uL Hgb (13.0-17.5) gm/dL Hct (39.0-53.0) % MCV (80.0-100.0) fL Neutrophils # (1.3-7.7) k/uL Lymphocytes # (1.0-4.8) k/uL PT 20.1 H (9.0-12.0) sec INR 2.1 H (<1.2) Sodium (137-145) mmol/L Creatinine (0.66-1.25) mg/dL Glucose (74-99) mg/dL POC Glucose (mg/dL) 313 H 222 H (75-99) mg/dL 07/20/19 07/20/19 07/20/19 Range/Units 06:20 06:20 07:11 RBC 3.81 L (4.30-5.90) m/uL Hgb 12.6 L (13.0-17.5) gm/dL Hct 38.3 L (39.0-53.0) % MCV 100.7 H (80.0-100.0) fL Neutrophils # 9.9 H (1.3-7.7) k/uL Lymphocytes # 0.3 L (1.0-4.8) k/uL PT (9.0-12.0) sec INR (<1.2) Sodium 136 L (137-145) mmol/L Creatinine 0.45 L (0.66-1.25) mg/dL Glucose 195 H (74-99) mg/dL POC Glucose (mg/dL) 318 H (75-99) mg/dL 07/20/19 Range/Units 11:49 RBC (4.30-5.90) m/uL Hgb (13.0-17.5) gm/dL Hct (39.0-53.0) % MCV (80.0-100.0) fL Neutrophils # (1.3-7.7) k/uL Lymphocytes # (1.0-4.8) k/uL PT (9.0-12.0) sec INR (<1.2) Sodium (137-145) mmol/L Creatinine (0.66-1.25) mg/dL Glucose (74-99) mg/dL POC Glucose (mg/dL) 108 H (75-99) mg/dL Assessment and Plan Assessment: ASSESSMENT Acute on chronic hypoxic/hypercapnic respiratory failure Acute COPD exacerbation Recent history of Acute pulmonary embolism. Recent history of Acute right leg DVT Recent history of Pneumonia with combined fungal and bacterial infection. Stable and improving cavitating right upper lobe abscess. 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 History of Coronary artery disease with history of [place]. Ongoing nicotine addiction PLAN: Patient is being treated for acute COPD exacerbation with IV steroids, breathing treatments. Pulmonary consult has been placed and he is started on Augmentin. Patient is on anticoagulation with Coumadin and, pharmacy to dose Coumadin for a INR to be 2-3. Patient has been resumed on all home medications. Overall prognosis is guarded due to multiple medical comorbidities. Further recommendations to follow depending on the progress of the patient.
[2019-07-21] MEDS: methylPREDNISolone SOD SUCCI 125 MG/2 ML VIAL IV SCH ×3 (00:20→12:14)
[2019-07-21] MEDS: IPRATROPIUM-ALBUTEROL 3 ML NEB INHALATION PRN (03:48)
[2019-07-21 07:09] LABS: Glucose,Whole Blood 173 mg/dL (75-99)
[2019-07-21] MEDS: FORMOTEROL FUMARATE 20 MCG/2 ML NEBU INHALATION SCH (07:33)
[2019-07-21] MEDS: IPRATROPIUM-ALBUTEROL 3 ML NEB INHALATION SCH ×3 (07:33→15:17)
[2019-07-21] MEDS: BUDESONIDE 1 MG/2 ML NEBU INHALATION SCH (07:33)
[2019-07-21 08:04] LABS: INR 1.9 (<1.2); Prothrombin Time 18.9 sec (9.0-12.0)
[2019-07-21] MEDS: ESCITALOPRAM 10 MG TAB PO SCH (08:27)
[2019-07-21] MEDS: amLODIPine 10 MG TAB PO SCH (08:27)
[2019-07-21] MEDS: FOLIC ACID 1 MG TAB PO SCH (08:27)
[2019-07-21] MEDS: AMOXIC-POT CLAV 875-125MG 1 EACH TAB PO SCH (08:27)
[2019-07-21] MEDS: NICOTINE 14MG/24HR PATCH TRANSDERM SCH (08:28)
[2019-07-21] MEDS: INSULIN ASPART (NovoLOG) 100 UNIT/ML VIAL SQ SCH ×2 (08:28→12:13)
[2019-07-21 08:41] VITALS: RESP 12
[2019-07-21 11:54] LABS: Glucose,Whole Blood 206 mg/dL (75-99)
--- NOTE | 2019-07-21 14:24 | P.DS ---
Providers Date of admission: 07/19/19 12:19 Expected date of discharge: 07/21/19 Attending physician: Rosario Martinez Consults: 07/19/19 16:39 Consult Physician Routine Consulting Provider: Willie Garcia Consult Reason/Comments: SOB Do you want consulting provider notified?: Yes Primary care physician: [facility] Course: Final diagnosis Acute on chronic hypoxic/hypercapnic respiratory failure Acute COPD exacerbation Recent history of Acute pulmonary embolism. Recent history of Acute right leg DVT Recent history of Pneumonia with combined fungal and bacterial infection. Stable and improving cavitating right upper lobe abscess. 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 History of Coronary artery disease with history of [place]. Ongoing nicotine addiction Discharge disposition Patient is being discharged in a stable condition with guarded prognosis to home and will follow-up with pulmonary Crissy Bland in the outpatient setting in 1 week. Patient will continue on a prednisone taper along with Augmentin twice daily for the next 5 days. Patient will also follow-up with primary care provider Dr. Linda Smith upon discharge. Total time taken is 35 minutes. History of present illness This is a 59-year-old male who was recently admitted for acute COPD exacerbation and was being closely monitored. Pulmonary was following closely. During hospitalization patient was continued on IV steroids, bronchodilation, and oral antibiotics in the form of Augmentin. Currently patient denies any chest pain or palpitations. Patient has been afebrile. Patient denies any nausea or vomiting and is eating. Patient continues to have some shortness of breath with exertion and normally uses 2 L of oxygen via nasal cannula continuously at home. Discussed with the patient at length about smoking cessation and education was provided. Patient does have a history of anxiety and states that he has been out of his Xanax and is requesting a refill. Patient has not been to his primary care provider for follow-up and has run out of medications. Patient is on Coumadin for DVT and PE and current INR is 1.9. Patient will continue on 2.5 mg of Coumadin daily and will need a recheck in 1-2 days to monitor for a therapeutic INR of 2-3. Patient does follow-up with Dr. Linda Smith in the outpatient setting and will need to follow-up upon discharge. Currently patient's condition is stable and is ready for discharge today. Discussed with the patient at length about being compliant with medications and follow-up appointments. Patient verbalized understanding. Guarded prognosis. On exam vital signs are stable. Temp is 99.4 F, pulse is 92, respirations are 12, blood pressure is 138/72, oxygen saturation is 96% on 2 L via nasal cannula. Patient states that he normally uses 2 L via nasal cannula at home continuously. Cardio S1, S2 are muffled. Respiratory system shows diminished breath sounds at the bases with a few scattered rhonchi noted. Minimal wheezing noted on expiration. Abdomen is soft and non-tender. Nervous system shows no focal deficits. Please refer to medication reconciliation sheet for a list of medications. Patient Condition at Discharge: Stable Plan - Discharge Summary Discharge Rx Participant: Yes New Discharge Prescriptions: New Amoxic-Pot Clav 875-125Mg [Augmentin 875-125] 1 each PO Q12HR 7 Days #14 tab predniSONE 10 mg PO DIRECTED #30 tab Continue Melatonin 5 mg PO HS Montelukast [Singulair] 10 mg PO HS #30 tab Fluticasone/Salmeterol [Fluticasone-Salmeterol 232-14] 1 puff INHALATION RT- BID amLODIPine [Norvasc] 10 mg PO DAILY Albuterol Inhaler [Ventolin Hfa Inhaler] 1 - 2 puff INHALATION RT-Q6H PRN PRN Reason: Shortness Of Breath Escitalopram [Lexapro] 10 mg PO DAILY #15 tab Nicotine 14Mg/24Hr Patch [Habitrol] 1 patch TRANSDERM DAILY Ipratropium-Albuterol Nebulize [Duoneb 0.5 mg-3 mg/3 ml Soln] 3 ml INHALATION RT-QID Folic Acid 1 mg PO DAILY Lidocaine [Aspercreme Patch] 1 patch TRANSDERM DAILY PRN PRN Reason: Pain Warfarin [Coumadin] 2.5 - 5 mg PO DIRECTED #0 Gabapentin [Neurontin] 800 mg PO TID #12 tab Discharge Medication List Melatonin 5 mg PO HS 0329/19 [History] Montelukast [Singulair] 10 mg PO HS #30 tab 11/17/18 [Rx] Fluticasone/Salmeterol [Fluticasone-Salmeterol 232-14] 1 puff INHALATION RT-BID 04/29/19 [History] amLODIPine [Norvasc] 10 mg PO DAILY 04/29/19 [History] Albuterol Inhaler [Ventolin Hfa Inhaler] 1 - 2 puff INHALATION RT-Q6H PRN 05/11/19 [History] Escitalopram [Lexapro] 10 mg PO DAILY #15 tab 05/15/19 [Rx] Nicotine 14Mg/24Hr Patch [Habitrol] 1 patch TRANSDERM DAILY 06/04/19 [History] Ipratropium-Albuterol Nebulize [Duoneb 0.5 mg-3 mg/3 ml Soln] 3 ml INHALATION RT-QID 06/13/19 [History] Folic Acid 1 mg PO DAILY 06/29/19 [History] Lidocaine [Aspercreme Patch] 1 patch TRANSDERM DAILY PRN 07/03/19 [History] Amoxic-Pot Clav 875-125Mg [Augmentin 875-125] 1 each PO Q12HR 7 Days #14 tab 07/21/19 [Rx] Gabapentin [Neurontin] 800 mg PO TID #12 tab 07/21/19 [Rx] Warfarin [Coumadin] 2.5 - 5 mg PO DIRECTED #0 07/21/19 [Rx] predniSONE 10 mg PO DIRECTED #30 tab 07/21/19 [Rx] Follow up Appointment(s)/Referral(s): Crissy Bland NPC [Nurse Practitioner] - 07/28/19 4:00 pm Urszula Carrasco MD [Primary Care Provider] - 1-2 days (office closed at time of discharge, Please call to make appointment.) Ambulatory/Diagnostic Orders: Prothrombin Time INR [LAB.AMB] Time Frame: 2 Days, Location: None Selected Activity/Diet/Wound Care/Special Instructions: Activity Limited until follow-up follow-up with primary care provider upon discharge Follow-up with pulmonary in 1-2 weeks Continue antibiotics and prednisone taper Repeat labs in 1-2 days to monitor PT/INR her Coumadin therapy Continue current diet Discharge Disposition: HOME SELF-CARE
[2019-07-21 15:29] VITALS: BP 131/70; TEMP 98
[2019-07-21 15:32] VITALS: PULSE 99
[2019-07-21] MEDS ORDERED: WARFARIN 3 MG TAB PO ONE (18:00)
== END 2019-07-21 16:42 | disposition home or self-care (01) ==
LOC: EC 10:41 → 4SSUR 12:19
PROVIDERS: ADMIT Internal Medicine; ATTEND Internal Medicine
DX: J44.1 Chronic obstructive pulmonary disease with (acute) exacerbation (principal); J96.91 Respiratory failure, unspecified with hypoxia; J96.02 Acute respiratory failure with hypercapnia; R00.0 Tachycardia, unspecified; I69.351 Hemiplegia and hemiparesis following cerebral infarction affecting right dominant side; Z86.718 Personal history of other venous thrombosis and embolism; J85.2 Abscess of lung without pneumonia; H54.40 Blindness, one eye, unspecified eye; I10 Essential (primary) hypertension; Z87.01 Personal history of pneumonia (recurrent); F41.0 Panic disorder [episodic paroxysmal anxiety]; F41.9 Anxiety disorder, unspecified; F32.9 Major depressive disorder, single episode, unspecified; Z86.19 Personal history of other infectious and parasitic diseases; G89.4 Chronic pain syndrome; I25.2 Old myocardial infarction; M75.01 Adhesive capsulitis of right shoulder; Z83.6 Family history of other diseases of the respiratory system; Z80.8 Family history of malignant neoplasm of other organs or systems; Z79.01 Long term (current) use of anticoagulants; Z99.81 Dependence on supplemental oxygen; Z79.899 Other long term (current) drug therapy; Z91.010 Allergy to peanuts
CPT/HCPCS: 96376 ×3; 96374; 99285; 36415; 94640 ×6; 94760; 93005; 80053; 80048; 84484 ×2; 85025 ×2; 85610 ×3; 85730; 71046; G0378 ×3; S4990 ×3; J2930 ×3

== ENCOUNTER 2019-08-12 17:43 | Inpatient (IN) | payer OTHER ==
[2019-08-12] MEDS ORDERED: IPRATROPIUM-ALBUTEROL 3 ML NEB INHALATION STA (18:00)
[2019-08-12] MEDS ORDERED: predniSONE 20 MG TAB PO STA (18:00)
--- NOTE | 2019-08-12 18:07 | ED ---
General Adult HPI - General Chief complaint: Shortness of Breath Stated complaint: CLEMENCIA Time Seen by Provider: 08/12/19 17:49 Source: patient, EMS Mode of arrival: EMS Limitations: no limitations - History of Present Illness Initial comments: Patient presents the ED by ambulance for evaluation. Patient states that he has a history of COPD, and he states that he has had increased dyspnea since yesterday. Patient also admits to having a productive cough for the past few days, and he admits to having diffuse chest tightness since yesterday. Patient states that he has been giving himself nebulizer treatments at home without much relief. Patient states that he is on 2 L of home O2. Patient denies trauma or injury, fever or chills, headache, focal neuro deficit, neck/arm/back pain, pleuritic pain, hemoptysis, palpitations, dizziness, nausea/vomi ting/diaphoresis, abdominal pain, dysuria or urinary symptoms, decreased urine output, leg or calf swelling or pain, or any other symptoms or complaints. - Related Data Home Medications Medication Instructions Recorded Confirmed Melatonin 5 mg PO HS 11/14/18 07/19/19 Fluticasone/Salmeterol 1 puff INHALATION RT-BID 04/29/19 07/19/19 [Fluticasone-Salmeterol 232-14] amLODIPine [Norvasc] 10 mg PO DAILY 04/29/19 07/19/19 Albuterol Inhaler [Ventolin Hfa 1 - 2 puff INHALATION RT-Q6H PRN 05/11/19 07/19/19 Inhaler] Nicotine 14Mg/24Hr Patch [Habitrol] 1 patch TRANSDERM DAILY 06/04/19 07/19/19 Ipratropium-Albuterol Nebulize 3 ml INHALATION RT-QID 06/13/19 07/19/19 [Duoneb 0.5 mg-3 mg/3 ml Soln] Folic Acid 1 mg PO DAILY 06/29/19 07/19/19 Lidocaine [Aspercreme Patch] 1 patch TRANSDERM DAILY PRN 07/03/19 07/19/19 Previous Rx's Medication Instructions Recorded Montelukast [Singulair] 10 mg PO HS #30 tab 11/17/18 Escitalopram [Lexapro] 10 mg PO DAILY #15 tab 09/27/19 Amoxic-Pot Clav 875-125Mg 1 each PO Q12HR 7 Days #14 tab 07/21/19 [Augmentin 875-125] Gabapentin [Neurontin] 800 mg PO TID #12 tab 07/21/19 Warfarin [Coumadin] 2.5 - 5 mg PO DIRECTED #0 07/21/19 predniSONE 10 mg PO DIRECTED #30 tab 07/21/19 Allergies Allergy/AdvReac Type Severity Reaction Status Date / Time tree nut [Nut] Allergy Unknown Dyspnea, Verified 08/12/19 17:45 Rash/Hives peanut [Peanut Butter] AdvReac Dyspnea, Verified 08/12/19 17:45 Rash/Hives Review of Systems ROS Statement: Those systems with pertinent positive or pertinent negative responses have been documented in the HPI. ROS Other: All systems not noted in ROS Statement are negative. 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 Last Myocardial Infarction Date:: unknown History of Any Multi-Drug Resistant Organisms: None Reported Past Surgical History: Orthopedic Surgery Additional Past Surgical History / Comment(s): metal plate left hand middle finger, right eye enucleation. Past Anesthesia/Blood Transfusion Reactions: No Reported Reaction Past Psychological History: Anxiety, Depression, Panic Disorder Smoking Status: Current every day smoker Past Alcohol Use History: Occasional Past Drug Use History: None Reported - Past Family History Mother Family Medical History: Cancer Additional Family Medical History / Comment(s): Pt believes his Mom of Kidney Cancer Father Family Medical History: Cancer, COPD, Respiratory Disorder Additional Family Medical History / Comment(s): Melanoma General Exam Limitations: no limitations General appearance: alert, in no apparent distress Head exam: Present: atraumatic, normocephalic Eye exam: Present: EOMI ENT exam: Present: mucous membranes moist Neck exam: Present: other (Trachea is in midline) Respiratory exam: Present: wheezes, decreased breath sounds, prolonged expiratory. Absent: respiratory distress, rales, rhonchi, stridor Cardiovascular Exam: Present: regular rate, normal rhythm, normal heart sounds, other (Normal radial pulses bilaterally) GI/Abdominal exam: Present: soft. Absent: distended, tenderness, guarding Extremities exam: Present: other (Negative Klaudia's sign bilaterally). Absent: tenderness, pedal edema, calf tenderness Neurological exam: Present: alert, oriented X3. Absent: motor sensory deficit Psychiatric exam: Present: normal affect, normal mood Skin exam: Present: warm, dry, intact, normal color Course Vital Signs 08/12/19 08/12/19 08/12/19 17:45 18:20 18:31 Temperature 97.6 F Pulse Rate 107 H 108 H 112 H Respiratory 20 20 20 Rate Blood Pressure 141/82 O2 Sat by Pulse 98 Oximetry - Reevaluation(s) Reevaluation #1: 08/12/19 19:54 Case, H&P, test results and ED management were discussed with Dr. Nunez. He accepts hospital admission. He has no further recommendations at this time. 08/12/19 20:08 Patient states that his dyspnea has improved with the DuoNeb treatment that he was given in the ED. Patient states that he still does not feel well enough to go home. Patient is aware of his test results, and he agrees with hospital admission at this time. EKG Findings - EKG Comments: EKG Findings:: Sinus tachycardia, ventricular rate of 100 bpm, normal MI and QRS intervals, normal QT interval, no ectopy, normal axis, no ST or T-wave abnorma lity Medical Decision Making - Medical Decision Making I suspect the patient's symptoms are likely secondary to COPD exacerbation. Patient's chest x-ray is negative for findings of pneumonia, and he is not febrile. Patient's troponin and BNP are negative. Patient states that he is supposed to be taking warfarin for treatment of a recently diagnosed pulmonary embolus, and he states that he has been doing so, but his INR is within normal limits. Will order for warfarin to be given upon hospital admission. Patient agrees with hospital admission. Dr. Nunez has accepted hospital admission. - Lab Data Result diagrams: 08/12/19 18:44 08/12/19 18:44 Lab Results 08/12/19 08/12/19 08/12/19 Range/Units 18:44 18:44 18:44 WBC 10.7 H (3.8-10.6) k/uL RBC 4.23 L (4.30-5.90) m/uL Hgb 13.8 (13.0-17.5) gm/dL Hct 42.5 (39.0-53.0) % MCV 100.3 H (80.0-100.0) fL MCH 32.5 (25.0-35.0) pg MCHC 32.4 (31.0-37.0) g/dL RDW 14.1 (11.5-15.5) % Plt Count 346 (150-450) k/uL Neutrophils % 73 % Lymphocytes % 14 % Monocytes % 8 % Eosinophils % 2 % Basophils % 1 % Neutrophils # 7.8 H (1.3-7.7) k/uL Lymphocytes # 1.5 (1.0-4.8) k/uL Monocytes # 0.8 (0-1.0) k/uL Eosinophils # 0.3 (0-0.7) k/uL Basophils # 0.1 (0-0.2) k/uL Macrocytosis Slight PT (9.0-12.0) sec INR (<1.2) APTT (22.0-30.0) sec Sodium 136 L (137-145) mmol/L Potassium 4.0 (3.5-5.1) mmol/L Chloride 104 (98-107) mmol/L Carbon Dioxide 24 (22-30) mmol/L Anion Gap 8 mmol/L BUN <2 L (9-20) mg/dL Creatinine 0.45 L (0.66-1.25) mg/dL Est GFR (CKD-EPI)AfAm >90 (>60 ml/min/1.73 sqM) Est GFR (CKD-EPI)NonAf >90 (>60 ml/min/1.73 sqM) Glucose 70 L (74-99) mg/dL Plasma Lactic Acid Gray 1.7 (0.7-2.0) mmol/L Calcium 9.5 (8.4-10.2) mg/dL Total Bilirubin 0.5 (0.2-1.3) mg/dL AST 30 (17-59) U/L ALT 33 (4-49) U/L Alkaline Phosphatase 60 (38-126) U/L Troponin I (0.000-0.034) ng/mL NT-Pro-B Natriuret Pep pg/mL Total Protein 6.1 L (6.3-8.2) g/dL Albumin 3.8 (3.5-5.0) g/dL 08/12/19 08/12/19 08/12/19 Range/Units 18:44 18:44 18:44 WBC (3.8-10.6) k/uL RBC (4.30-5.90) m/uL Hgb (13.0-17.5) gm/dL Hct (39.0-53.0) % MCV (80.0-100.0) fL MCH (25.0-35.0) pg MCHC (31.0-37.0) g/dL RDW (11.5-15.5) % Plt Count (150-450) k/uL Neutrophils % % Lymphocytes % % Monocytes % % Eosinophils % % Basophils % % Neutrophils # (1.3-7.7) k/uL Lymphocytes # (1.0-4.8) k/uL Monocytes # (0-1.0) k/uL Eosinophils # (0-0.7) k/uL Basophils # (0-0.2) k/uL Macrocytosis PT 11.3 (9.0-12.0) sec INR 1.1 (<1.2) APTT 26.2 (22.0-30.0) sec Sodium (137-145) mmol/L Potassium (3.5-5.1) mmol/L Chloride (98-107) mmol/L Carbon Dioxide (22-30) mmol/L Anion Gap mmol/L BUN (9-20) mg/dL Creatinine (0.66-1.25) mg/dL Est GFR (CKD-EPI)AfAm (>60 ml/min/1.73 sqM) Est GFR (CKD-EPI)NonAf (>60 ml/min/1.73 sqM) Glucose (74-99) mg/dL Plasma Lactic Acid Gray (0.7-2.0) mmol/L Calcium (8.4-10.2) mg/dL Total Bilirubin (0.2-1.3) mg/dL AST (17-59) U/L ALT (4-49) U/L Alkaline Phosphatase (38-126) U/L Troponin I <0.012 (0.000-0.034) ng/mL NT-Pro-B Natriuret Pep 146 pg/mL Total Protein (6.3-8.2) g/dL Albumin (3.5-5.0) g/dL - Radiology Data Radiology results: report reviewed (Chest x-ray shows mild scarring and subsegmental atelectasis) Disposition Clinical Impression: COPD exacerbation Disposition: ADMITTED IP TO THIS HOSP Condition: Stable Is patient prescribed a controlled substance at d/c from ED?: No Referrals: Urszula Carrasco MD [Primary Care Provider] - 1-2 days Time of Disposition: 19:54
[2019-08-12 19:10] LABS: Basophils # (A) 0.1 k/uL (0-0.2); Basophils % (A) 1 %; Eosinophils # (A) 0.3 k/uL (0-0.7); Eosinophils % (A) 2 %; HCT 42.5 % (39.0-53.0); HGB 13.8 gm/dL (13.0-17.5); Lymphocytes # (A) 1.5 k/uL (1.0-4.8); Lymphocytes % (A) 14 %; MCH 32.5 pg (25.0-35.0); MCHC 32.4 g/dL (31.0-37.0); MCV 100.3 fL (80.0-100.0); Macrocytosis Slight; Mean Platelet Volume 6.4; Monocytes # (A) 0.8 k/uL (0-1.0); Monocytes % (A) 8 %; Neutrophils # (A) 7.8 k/uL (1.3-7.7); Neutrophils % (A) 73 %; Platelet Count 346 k/uL (150-450); RBC 4.23 m/uL (4.30-5.90); RDW 14.1 % (11.5-15.5); WBC 10.7 k/uL (3.8-10.6)
[2019-08-12 19:31] LABS: ALT 33 U/L (4-49); AST 30 U/L (17-59); African American GFR (CKD) >90 (>60 ml/min/1.73 sqM); Albumin 3.8 g/dL (3.5-5.0); Alkaline Phosphatase 60 U/L (38-126); Anion Gap 8 mmol/L; Blood Urea Nitrogen <2 mg/dL (9-20); Calcium 9.5 mg/dL (8.4-10.2); Carbon Dioxide 24 mmol/L (22-30); Chloride 104 mmol/L (98-107); Glucose 70 mg/dL (74-99); Non-African American GFR(CKD) >90 (>60 ml/min/1.73 sqM); Sodium 136 mmol/L (137-145); Total Bilirubin 0.5 mg/dL (0.2-1.3); Total Protein 6.1 g/dL (6.3-8.2)
[2019-08-12 19:36] LABS: INR 1.1 (<1.2); Partial Thromboplastin Time 26.2 sec (22.0-30.0); Prothrombin Time 11.3 sec (9.0-12.0)
--- NOTE | 2019-08-12 19:38 | XR ---
EXAMINATION TYPE: XR chest 2V DATE OF EXAM: 08/12/2019 COMPARISON: July 19, 2019 HISTORY: Difficulty breathing TECHNIQUE: 2 views. FINDINGS: There is some mild linear density at the lung bases. Heart size is normal. There is no heart failure. There is some right upper lobe linear density. There are chest leads. IMPRESSION: There is some mild scarring and subsegmental atelectasis unchanged. Normal heart.
[2019-08-12] MEDS ORDERED: WARFARIN 5 MG TAB PO SCH (20:00)
[2019-08-12] MEDS ORDERED: WARFARIN 5 MG TAB PO ONE (21:15)
[2019-08-12] MEDS: GABAPENTIN 400 MG CAP PO SCH (21:25)
[2019-08-12] MEDS: MELATONIN 5 MG TABLET PO SCH (22:46)
[2019-08-13] MEDS: IPRATROPIUM-ALBUTEROL 3 ML NEB INHALATION PRN ×5 (04:13→19:08)
[2019-08-13] MEDS: ESCITALOPRAM 10 MG TAB PO SCH (07:05)
[2019-08-13] MEDS: NICOTINE 14MG/24HR PATCH TRANSDERM SCH (07:05)
[2019-08-13] MEDS: amLODIPine 10 MG TAB PO SCH (07:05)
[2019-08-13] MEDS: GABAPENTIN 400 MG CAP PO SCH ×3 (07:05→21:36)
[2019-08-13 08:57] LABS: Basophils % (A) 0 %; Eosinophils # (A) 0.1 k/uL (0-0.7); Eosinophils % (A) 1 %; HCT 42.6 % (39.0-53.0); HGB 14.4 gm/dL (13.0-17.5); Lymphocytes # (A) 0.4 k/uL (1.0-4.8); Lymphocytes % (A) 4 %; MCH 34.2 pg (25.0-35.0); MCHC 33.8 g/dL (31.0-37.0); MCV 101.1 fL (80.0-100.0); Macrocytosis Slight; Mean Platelet Volume 6.8; Monocytes # (A) 0.3 k/uL (0-1.0); Monocytes % (A) 3 %; Neutrophils # (A) 8.2 k/uL (1.3-7.7); Neutrophils % (A) 91 %; Platelet Count 393 k/uL (150-450); RBC 4.21 m/uL (4.30-5.90); RDW 13.8 % (11.5-15.5)
[2019-08-13 09:03] LABS: INR 1.2 (<1.2); Prothrombin Time 12.4 sec (9.0-12.0)
[2019-08-13 09:07] LABS: ALT 26 U/L (4-49); AST 25 U/L (17-59); African American GFR (CKD) >90 (>60 ml/min/1.73 sqM); Albumin 3.7 g/dL (3.5-5.0); Alkaline Phosphatase 50 U/L (38-126); Anion Gap 6 mmol/L; Blood Urea Nitrogen 11 mg/dL (9-20); Calcium 9.8 mg/dL (8.4-10.2); Carbon Dioxide 28 mmol/L (22-30); Chloride 103 mmol/L (98-107); Glucose 221 mg/dL (74-99); Non-African American GFR(CKD) >90 (>60 ml/min/1.73 sqM); Potassium 4.5 mmol/L (3.5-5.1); Sodium 137 mmol/L (137-145); Total Bilirubin 0.5 mg/dL (0.2-1.3)
[2019-08-13] MEDS: ACETAMINOPHEN TAB 325 MG TAB PO PRN (12:23)
[2019-08-13] MEDS ORDERED: KETOROLAC 30 MG/ML 1 ML VIAL IVP ONE (17:09)
[2019-08-13 17:20] LABS: Glucose,Whole Blood 124 mg/dL (75-99)
[2019-08-13] MEDS: methylPREDNISolone SOD SUCCI 40 MG/ML 1 ML VIAL IV SCH (17:44)
[2019-08-13] MEDS: INSULIN ASPART (NovoLOG) 100 UNIT/ML VIAL SQ SCH ×2 (17:51→21:37)
[2019-08-13] MEDS ORDERED: WARFARIN 5 MG TAB PO ONE (18:00)
[2019-08-13 21:32] LABS: Glucose,Whole Blood 161 mg/dL (75-99)
[2019-08-13] MEDS: MELATONIN 5 MG TABLET PO SCH (21:34)
[2019-08-13] MEDS: MONTELUKAST 10 MG TAB PO SCH (21:34)
[2019-08-13] MEDS: DOXYCYCLINE 100 MG in SODIUM CHLORIDE 0.9% 100 ML IVPB SCH (21:34)
[2019-08-13] MEDS ORDERED: traMADol 50 MG TAB PO STA (21:51)
[2019-08-14] MEDS: IPRATROPIUM-ALBUTEROL 3 ML NEB INHALATION PRN ×7 (00:12→23:57)
[2019-08-14] MEDS: methylPREDNISolone SOD SUCCI 40 MG/ML 1 ML VIAL IV SCH ×3 (00:48→16:12)
[2019-08-14] MEDS ORDERED: traMADol 50 MG TAB PO STA (07:05)
[2019-08-14 07:29] LABS: Glucose,Whole Blood 238 mg/dL (75-99)
[2019-08-14] MEDS: FOLIC ACID 1 MG TAB PO SCH (07:54)
[2019-08-14] MEDS: amLODIPine 10 MG TAB PO SCH (07:54)
[2019-08-14] MEDS: GABAPENTIN 400 MG CAP PO SCH ×3 (07:54→22:10)
[2019-08-14] MEDS: ESCITALOPRAM 10 MG TAB PO SCH (07:54)
[2019-08-14] MEDS: NICOTINE 14MG/24HR PATCH TRANSDERM SCH (07:54)
[2019-08-14] MEDS: DOXYCYCLINE 100 MG in SODIUM CHLORIDE 0.9% 100 ML IVPB SCH ×2 (07:55→22:10)
[2019-08-14] MEDS: INSULIN ASPART (NovoLOG) 100 UNIT/ML VIAL SQ SCH ×4 (08:10→22:11)
[2019-08-14 08:47] LABS: Basophils % (A) 0 %; Eosinophils % (A) 0 %; HCT 37.7 % (39.0-53.0); HGB 12.8 gm/dL (13.0-17.5); Lymphocytes # (A) 0.2 k/uL (1.0-4.8); Lymphocytes % (A) 2 %; MCH 34.5 pg (25.0-35.0); MCHC 33.9 g/dL (31.0-37.0); MCV 101.8 fL (80.0-100.0); Macrocytosis Slight; Mean Platelet Volume 6.8; Monocytes # (A) 0.2 k/uL (0-1.0); Monocytes % (A) 1 %; Neutrophils # (A) 11.4 k/uL (1.3-7.7); Neutrophils % (A) 96 %; Platelet Count 349 k/uL (150-450); RDW 13.7 % (11.5-15.5); WBC 11.8 k/uL (3.8-10.6)
[2019-08-14 08:57] LABS: African American GFR (CKD) >90 (>60 ml/min/1.73 sqM); Anion Gap 6 mmol/L; Blood Urea Nitrogen 19 mg/dL (9-20); Calcium 9.2 mg/dL (8.4-10.2); Carbon Dioxide 27 mmol/L (22-30); Chloride 104 mmol/L (98-107); Glucose 201 mg/dL (74-99); Non-African American GFR(CKD) >90 (>60 ml/min/1.73 sqM); Potassium 4.4 mmol/L (3.5-5.1); Sodium 137 mmol/L (137-145)
[2019-08-14 09:01] LABS: INR 1.7 (<1.2)
[2019-08-14 12:34] LABS: Glucose,Whole Blood 143 mg/dL (75-99)
--- NOTE | 2019-08-14 15:16 | P.HPIM ---
History of Present Illness H&P Date: 08/13/19 Chief Complaint: Shortness of breath Patient presents the ED by ambulance for evaluation. Patient states that he has a history of COPD, and he states that he has had increased dyspnea since yesterday. Patient also admits to having a productive cough for the past few days, and he admits to having diffuse chest tightness since yesterday. Patient states that he has been giving himself nebulizer treatments at home without much relief. Patient states that he is on 2 L of home O2. Patient denies trauma or injury, fever or chills, headache, focal neuro deficit, neck/arm/back pain, pleuritic pain, hemoptysis, palpitations, dizziness, nausea/vomiting/diaphoresis, abdominal pain, dysuria or urinary symptoms, decreased urine output, leg or calf swelling or pain, or any other symptoms or complaints. Workup in ED with EKG showing sinus tachycardia with no acute changes; chest x- ray was found to be negative for any acute findings or pneumonia; troponin and BNP are within normal limits; blood work shows slight elevation in her white blood count of 10.7; sodium of 136 and glucose of 70; INR at 1.1; patient takes Coumadin for recent PE Patient is being admitted for further treatment of acute exacerbation COPD Patient's chest x-ray is negative for findings of pneumonia, and he is not febrile. Patient's troponin and BNP are negative. Patient states that he is supposed to be taking warfarin for treatment of a recently diagnosed pulmonary embolus, and he states that he has been doing so, but his INR is within normal limits. Review of Systems REVIEW OF SYSTEMS: CONSTITUTIONAL: No fever, no malaise, no fatigue. HEENT: No recent visual problems or hearing problems. Denied any sore throat. CARDIOVASCULAR: No chest pain, orthopnea, PND, no palpitations, no syncope. PULMONARY: No shortness of breath, no cough, no hemoptysis. GASTROINTESTINAL: No diarrhea, no nausea, no vomiting, no abdominal pain. NEUROLOGICAL: No headaches, no weakness, no numbness. HEMATOLOGICAL: Denies any bleeding or petechiae. GENITOURINARY: Denies any burning micturition, frequency, or urgency. MUSCULOSKELETAL/RHEUMATOLOGICAL: Denies any joint pain, swelling, or any muscle pain. ENDOCRINE: Denies any polyuria or polydipsia. The rest of the 14-point review of systems is negative. 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 Last Myocardial Infarction Date:: unknown History of Any Multi-Drug Resistant Organisms: None Reported Past Surgical History: Orthopedic Surgery Additional Past Surgical History / Comment(s): metal plate left hand middle finger, right eye enucleation. Past Anesthesia/Blood Transfusion Reactions: No Reported Reaction Past Psychological History: Anxiety, Depression, Panic Disorder Additional Psychological History / Comment(s): Lives in apartment, 17 steps to climb.Has a nebulizer/oxygen. 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 Smoking Status: Current every day smoker Past Alcohol Use History: Occasional Additional Past Alcohol Use History / Comment(s): STARTED SMOKING 1975 1 PPD- PT STATED HE DRINKS 1 BEER a day Past Drug Use History: None Reported Additional Drug Use History / Comment(s): Pt states he uses marajuana at times. - Past Family History Mother Family Medical History: Cancer Additional Family Medical History / Comment(s): Pt believes his Mom of Kidney Cancer Father Family Medical History: Cancer, COPD, Respiratory Disorder Additional Family Medical History / Comment(s): Melanoma Medications and Allergies Home Medications Medication Instructions Recorded Confirmed Type Montelukast [Singulair] 10 mg PO HS #30 tab 11/17/18 08/12/19 Rx Fluticasone/Salmeterol 1 puff INHALATION RT-BID 04/29/19 08/12/19 History [Fluticasone-Salmeterol 232-14] amLODIPine [Norvasc] 10 mg PO DAILY 04/29/19 08/12/19 History Albuterol Inhaler [Ventolin Hfa 1 - 2 puff INHALATION RT-Q6H PRN 05/11/19 08/12/19 History Inhaler] Escitalopram [Lexapro] 10 mg PO DAILY #15 tab 05/15/19 08/12/19 Rx Nicotine 14Mg/24Hr Patch [Habitrol] 1 patch TRANSDERM DAILY 06/04/19 08/12/19 History Ipratropium-Albuterol Nebulize 3 ml INHALATION RT-QID 06/13/19 08/12/19 History [Duoneb 0.5 mg-3 mg/3 ml Soln] Folic Acid 1 mg PO DAILY 06/29/19 08/12/19 History Lidocaine [Aspercreme Patch] 1 patch TRANSDERM DAILY PRN 07/03/19 08/12/19 History Gabapentin [Neurontin] 800 mg PO TID #12 tab 07/21/19 08/12/19 Rx Melatonin 10 mg PO HS 08/12/19 08/12/19 History Warfarin [Coumadin] 2.5 mg PO HS 08/12/19 08/12/19 History Allergies Allergy/AdvReac Type Severity Reaction Status Date / Time tree nut [Nut] Allergy Unknown Dyspnea, Verified 08/12/19 20:48 Rash/Hives peanut [Peanut Butter] AdvReac Dyspnea, Verified 08/12/19 20:48 Rash/Hives Physical Exam Vitals: Vital Signs Temp Pulse Pulse Pulse Resp BP BP 08/13/19 15:37 85 18 08/13/19 15:27 83 18 08/13/19 15:00 98.0 F 88 20 109/66 08/13/19 12:46 92 08/13/19 12:33 88 08/13/19 09:14 96 08/13/19 09:04 94 08/13/19 04:30 97.8 F 81 20 117/60 08/13/19 04:26 88 08/13/19 04:13 84 08/12/19 21:45 98 20 128/76 08/12/19 20:17 104 H 18 122/80 08/12/19 18:31 112 H 20 08/12/19 18:20 108 H 20 08/12/19 17:45 97.6 F 107 H 20 141/82 Pulse Ox 08/13/19 15:37 08/13/19 15:27 99 08/13/19 15:00 97 08/13/19 12:46 08/13/19 12:33 08/13/19 09:14 08/13/19 09:04 97 08/13/19 04:30 96 08/13/19 04:26 08/13/19 04:13 08/12/19 21:45 96 08/12/19 20:17 97 08/12/19 18:31 08/12/19 18:20 08/12/19 17:45 98 Intake and Output 08/13/19 08/13/19 08/13/19 06:59 14:59 22:59 Intake Total 200 400 Balance 200 400 Intake: Oral 200 400 Other: Voiding Method Toilet Toilet Toilet # Voids 2 3 PHYSICAL EXAMINATION: GENERAL: The patient is alert and oriented x3, not in any acute distress. Well developed, well nourished. HEENT: Pupils are round and equally reacting to light. EOMI. No scleral icterus. No conjunctival pallor. Normocephalic, atraumatic. No pharyngeal erythema. No thyromegaly. CARDIOVASCULAR: S1 and S2 present. No murmurs, rubs, or gallops. PULMONARY: Chest is clear to auscultation, no wheezing or crackles. ABDOMEN: Soft, nontender, nondistended, normoactive bowel sounds. No palpable organomegaly. MUSCULOSKELETAL: No joint swelling or deformity. EXTREMITIES: No cyanosis, clubbing, or pedal edema. NEUROLOGICAL: Gross neurological examination did not reveal any focal deficits. SKIN: No rashes. Results CBC & Chem 7: 08/14/19 08:27 08/14/19 08:27 Labs: Abnormal Lab Results - Last 24 Hours (Table) 08/12/19 08/12/19 08/13/19 Range/Units 18:44 18:44 08:27 WBC 10.7 H (3.8-10.6) k/uL RBC 4.23 L 4.21 L (4.30-5.90) m/uL MCV 100.3 H 101.1 H (80.0-100.0) fL Neutrophils # 7.8 H 8.2 H (1.3-7.7) k/uL Lymphocytes # 0.4 L (1.0-4.8) k/uL PT (9.0-12.0) sec INR (<1.2) Sodium 136 L (137-145) mmol/L BUN <2 L (9-20) mg/dL Creatinine 0.45 L (0.66-1.25) mg/dL Glucose 70 L (74-99) mg/dL Total Protein 6.1 L (6.3-8.2) g/dL 08/13/19 08/13/19 Range/Units 08:27 08:27 WBC (3.8-10.6) k/uL RBC (4.30-5.90) m/uL MCV (80.0-100.0) fL Neutrophils # (1.3-7.7) k/uL Lymphocytes # (1.0-4.8) k/uL PT 12.4 H (9.0-12.0) sec INR 1.2 H (<1.2) Sodium (137-145) mmol/L BUN (9-20) mg/dL Creatinine 0.54 L (0.66-1.25) mg/dL Glucose 221 H (74-99) mg/dL Total Protein 6.0 L (6.3-8.2) g/dL Thrombosis Risk Factor Assmnt - Choose All That Apply Any of the Below Risk Factors Present?: Yes Each Factor Represents 1 point: Abnormal pulmonary function (COPD), Age 41-60 years Thrombosis Risk Factor Assessment Total Risk Factor Score: 2 Thrombosis Risk Factor Assessment Level: Low Risk Assessment and Plan Assessment: 1. Acute exacerbation COPD; start patient on DuoNeb nebulizer treatments, Solu- Medrol 40 mg IV every 8 hours and doxycycline 100 mg every 12 hours; continue with home dose of Singulair; O2 per respiratory protocol 2. Leukocytosis/severe purulent tracheobronchitis; doxycycline 100 mg IV every 12 hours; continue with DuoNeb nebulizer treatments 3. Thrombocytopenia; etiology unclear; we will monitor CBC 4. Recent diagnosis of pulmonary embolism/ anticoagulation therapy; subtherapeutic; restart patient on home dose of Coumadin with pharmacy dosing service and monitor PT/INR daily 5. Uncontrolled hypertension; amlodipine 10 mg daily; monitor blood pressure closely 6. DVT prophylaxis; SCDs CODE STATUS; full code Time with Patient: Greater than 30
[2019-08-14] MEDS: ACETAMINOPHEN TAB 325 MG TAB PO PRN ×2 (16:55→22:11)
[2019-08-14 17:11] LABS: Glucose,Whole Blood 143 mg/dL (75-99)
[2019-08-14] MEDS ORDERED: WARFARIN 3 MG TAB PO ONE (18:00)
[2019-08-14 20:39] LABS: Glucose,Whole Blood 181 mg/dL (75-99)
[2019-08-14] MEDS: MELATONIN 5 MG TABLET PO SCH (22:10)
[2019-08-14] MEDS: MONTELUKAST 10 MG TAB PO SCH (22:10)
[2019-08-15] MEDS: methylPREDNISolone SOD SUCCI 40 MG/ML 1 ML VIAL IV SCH ×3 (00:14→16:45)
[2019-08-15] MEDS: IPRATROPIUM-ALBUTEROL 3 ML NEB INHALATION PRN ×5 (03:42→20:13)
[2019-08-15] MEDS: ACETAMINOPHEN TAB 325 MG TAB PO PRN ×4 (06:29→22:27)
[2019-08-15 06:59] LABS: Glucose,Whole Blood 123 mg/dL (75-99)
[2019-08-15] MEDS: INSULIN ASPART (NovoLOG) 100 UNIT/ML VIAL SQ SCH ×4 (07:02→20:38)
[2019-08-15] MEDS: ESCITALOPRAM 10 MG TAB PO SCH (07:19)
[2019-08-15] MEDS: GABAPENTIN 400 MG CAP PO SCH ×3 (07:19→20:37)
[2019-08-15] MEDS: NICOTINE 14MG/24HR PATCH TRANSDERM SCH (07:20)
[2019-08-15] MEDS: amLODIPine 10 MG TAB PO SCH (07:20)
[2019-08-15] MEDS: FOLIC ACID 1 MG TAB PO SCH (07:20)
[2019-08-15] MEDS: DOXYCYCLINE 100 MG in SODIUM CHLORIDE 0.9% 100 ML IVPB SCH ×2 (08:25→20:38)
[2019-08-15 08:58] LABS: Basophils % (A) 0 %; Eosinophils % (A) 0 %; HCT 43.6 % (39.0-53.0); HGB 13.9 gm/dL (13.0-17.5); Lymphocytes # (A) 0.2 k/uL (1.0-4.8); Lymphocytes % (A) 2 %; MCH 32.9 pg (25.0-35.0); MCHC 31.9 g/dL (31.0-37.0); MCV 103.3 fL (80.0-100.0); Macrocytosis Slight; Mean Platelet Volume 6.8; Monocytes # (A) 0.3 k/uL (0-1.0); Monocytes % (A) 2 %; Neutrophils # (A) 13.9 k/uL (1.3-7.7); Neutrophils % (A) 96 %; Platelet Count 401 k/uL (150-450); RBC 4.23 m/uL (4.30-5.90); RDW 13.7 % (11.5-15.5); WBC 14.5 k/uL (3.8-10.6)
[2019-08-15 09:02] LABS: INR 2.3 (<1.2); Prothrombin Time 22.2 sec (9.0-12.0)
[2019-08-15 09:18] LABS: African American GFR (CKD) >90 (>60 ml/min/1.73 sqM); Anion Gap 9 mmol/L; Blood Urea Nitrogen 15 mg/dL (9-20); Calcium 9.9 mg/dL (8.4-10.2); Carbon Dioxide 28 mmol/L (22-30); Chloride 103 mmol/L (98-107); Glucose 191 mg/dL (74-99); Non-African American GFR(CKD) >90 (>60 ml/min/1.73 sqM); Potassium 4.2 mmol/L (3.5-5.1); Sodium 140 mmol/L (137-145)
[2019-08-15 11:27] LABS: Glucose,Whole Blood 224 mg/dL (75-99)
[2019-08-15 17:21] LABS: Glucose,Whole Blood 131 mg/dL (75-99)
--- NOTE | 2019-08-15 17:53 | P.PN ---
Subjective Progress Note Date: 08/14/19 Principal diagnosis: acute exacerbation COPD Severe tracheobronchitis thrombocytopenia 59-year-old male patient with advanced COPD presented to the hospital with complaint of productive cough and gradually worsening shortness of breath; patient is admitted to the hospital for treatment of acute exacerbation of COPD and severe purulent tracheobronchitis 08/14/2019 Patient is seen and evaluated in room at bedside; assessment specific complaints Vital signs are reviewed showing temperature of 98.1, pulse 81, respirations 16 and blood pressure of 123/69; SpO2 of 98% on 2 L Lab review shows a white blood count of 11.8, hemoglobin of 12.8 and platelet count of 349; INR remains subtherapeutic at 1.7; sodium of 137 potassium 4.4; blood glucose ranges in 181-201 We will continue with nebulizer treatments and steroid therapy; doxycycline 100 mg IV every 12 hours Objective - Vital Signs Vital signs: Vital Signs Temp 98.0 F 08/15/19 11:20 Pulse 92 08/15/19 16:00 Resp 16 08/15/19 11:20 BP 159/69 08/15/19 11:20 Pulse Ox 94 L 08/15/19 11:20 Intake & Output 08/14/19 08/15/19 08/15/19 18:59 06:59 18:59 Intake Total 950 Balance 950 Intake: Oral 950 Other: Voiding Method Toilet Toilet Toilet # Voids 2 2 3 - Exam GENERAL: The patient is alert and oriented x3, not in any acute distress. Well developed, well nourished. HEENT: Pupils are round and equally reacting to light. EOMI. No scleral icterus. No conjunctival pallor. Normocephalic, atraumatic. No pharyngeal erythema. No th yromegaly. CARDIOVASCULAR: S1 and S2 present. No murmurs, rubs, or gallops. PULMONARY: Chest is clear to auscultation, no wheezing or crackles. ABDOMEN: Soft, nontender, nondistended, normoactive bowel sounds. No palpable organomegaly. MUSCULOSKELETAL: No joint swelling or deformity. EXTREMITIES: No cyanosis, clubbing, or pedal edema. NEUROLOGICAL: Gross neurological examination did not reveal any focal deficits. SKIN: No rashes. - Labs CBC & Chem 7: 08/15/19 07:41 08/15/19 07:41 Labs: Abnormal Lab Results - Last 24 Hours (Table) 08/14/19 08/15/19 08/15/19 Range/Units 20:18 06:56 07:41 WBC (3.8-10.6) k/uL RBC (4.30-5.90) m/uL MCV (80.0-100.0) fL Neutrophils # (1.3-7.7) k/uL Lymphocytes # (1.0-4.8) k/uL PT 22.2 H (9.0-12.0) sec INR 2.3 H (<1.2) Creatinine (0.66-1.25) mg/dL Glucose (74-99) mg/dL POC Glucose (mg/dL) 181 H 123 H (75-99) mg/dL 08/15/19 08/15/19 08/15/19 Range/Units 07:41 07:41 11:19 WBC 14.5 H (3.8-10.6) k/uL RBC 4.23 L (4.30-5.90) m/uL MCV 103.3 H (80.0-100.0) fL Neutrophils # 13.9 H (1.3-7.7) k/uL Lymphocytes # 0.2 L (1.0-4.8) k/uL PT (9.0-12.0) sec INR (<1.2) Creatinine 0.51 L (0.66-1.25) mg/dL Glucose 191 H (74-99) mg/dL POC Glucose (mg/dL) 224 H (75-99) mg/dL 08/15/19 Range/Units 17:11 WBC (3.8-10.6) k/uL RBC (4.30-5.90) m/uL MCV (80.0-100.0) fL Neutrophils # (1.3-7.7) k/uL Lymphocytes # (1.0-4.8) k/uL PT (9.0-12.0) sec INR (<1.2) Creatinine (0.66-1.25) mg/dL Glucose (74-99) mg/dL POC Glucose (mg/dL) 131 H (75-99) mg/dL Microbiology - Last 24 Hours (Table) 08/12/19 18:44 Blood Culture - Preliminary Blood No Growth after 48 hours Assessment and Plan Assessment: 1. Acute exacerbation COPD; start patient on DuoNeb nebulizer treatments, Solu- Medrol 40 mg IV every 8 hours and doxycycline 100 mg every 12 hours; continue with home dose of Singulair; O2 per respiratory protocol 2. Leukocytosis/severe purulent tracheobronchitis; doxycycline 100 mg IV every 12 hours; continue with DuoNeb nebulizer treatments 3. Thrombocytopenia; etiology unclear; we will monitor CBC 4. Recent diagnosis of pulmonary embolism/ anticoagulation therapy; subtherapeutic; restart patient on home dose of Coumadin with pharmacy dosing service and monitor PT/INR daily 5. Uncontrolled hypertension; amlodipine 10 mg daily; monitor blood pressure closely 6. DVT prophylaxis; SCDs CODE STATUS; full code Time with Patient: Greater than 30
[2019-08-15] MEDS ORDERED: WARFARIN 2.5 MG TAB PO ONE (18:00)
[2019-08-15 20:26] LABS: Glucose,Whole Blood 150 mg/dL (75-99)
[2019-08-15] MEDS: MELATONIN 5 MG TABLET PO SCH (20:37)
[2019-08-15] MEDS: MONTELUKAST 10 MG TAB PO SCH (20:37)
[2019-08-15] MEDS: HYDROcodone/APAP 5-325MG 1 EACH TAB PO PRN (23:52)
[2019-08-16] MEDS: IPRATROPIUM-ALBUTEROL 3 ML NEB INHALATION PRN ×2 (00:38→05:48)
[2019-08-16 05:25] VITALS: BP 152/78; TEMP 97.6
[2019-08-16 07:06] LABS: Glucose,Whole Blood 166 mg/dL (75-99)
[2019-08-16] MEDS: INSULIN ASPART (NovoLOG) 100 UNIT/ML VIAL SQ SCH ×3 (07:30→13:02)
[2019-08-16] MEDS: FOLIC ACID 1 MG TAB PO SCH (08:04)
[2019-08-16] MEDS: ESCITALOPRAM 10 MG TAB PO SCH (08:04)
[2019-08-16] MEDS: GABAPENTIN 400 MG CAP PO SCH (08:04)
[2019-08-16] MEDS: amLODIPine 10 MG TAB PO SCH (08:04)
[2019-08-16] MEDS: DOXYCYCLINE 100 MG in SODIUM CHLORIDE 0.9% 100 ML IVPB SCH (08:04)
[2019-08-16] MEDS: NICOTINE 14MG/24HR PATCH TRANSDERM SCH (08:09)
[2019-08-16] MEDS: HYDROcodone/APAP 5-325MG 1 EACH TAB PO PRN (08:14)
[2019-08-16 08:38] VITALS: RESP 18
[2019-08-16] MEDS ORDERED: predniSONE 20 MG TAB PO SCH (09:00)
[2019-08-16 09:11] LABS: Basophils % (A) 0 %; Eosinophils % (A) 0 %; HCT 39.8 % (39.0-53.0); HGB 13.2 gm/dL (13.0-17.5); Lymphocytes # (A) 0.4 k/uL (1.0-4.8); Lymphocytes % (A) 3 %; MCH 33.6 pg (25.0-35.0); MCHC 33.2 g/dL (31.0-37.0); MCV 101.2 fL (80.0-100.0); Macrocytosis Slight; Mean Platelet Volume 6.9; Monocytes % (A) 7 %; Neutrophils # (A) 13.4 k/uL (1.3-7.7); Neutrophils % (A) 90 %; Platelet Count 379 k/uL (150-450); RBC 3.94 m/uL (4.30-5.90); RDW 13.7 % (11.5-15.5); WBC 14.9 k/uL (3.8-10.6)
[2019-08-16 09:20] LABS: INR 3.4 (<1.2); Prothrombin Time 32.5 sec (9.0-12.0)
[2019-08-16 09:22] LABS: African American GFR (CKD) >90 (>60 ml/min/1.73 sqM); Anion Gap 6 mmol/L; Blood Urea Nitrogen 16 mg/dL (9-20); Calcium 9.4 mg/dL (8.4-10.2); Carbon Dioxide 29 mmol/L (22-30); Chloride 103 mmol/L (98-107); Glucose 89 mg/dL (74-99); Non-African American GFR(CKD) >90 (>60 ml/min/1.73 sqM); Potassium 3.9 mmol/L (3.5-5.1); Sodium 138 mmol/L (137-145)
[2019-08-16 10:29] VITALS: PULSE 92
[2019-08-16 12:06] LABS: Glucose,Whole Blood 155 mg/dL (75-99)
--- NOTE | 2019-08-16 12:11 | P.PN ---
Subjective Progress Note Date: 08/15/19 Principal diagnosis: acute exacerbation COPD Severe tracheobronchitis thrombocytopenia 59-year-old male patient with advanced COPD presented to the hospital with complaint of productive cough and gradually worsening shortness of breath; patient is admitted to the hospital for treatment of acute exacerbation of COPD and severe purulent tracheobronchitis 08/14/2019 Patient is seen and evaluated in room at bedside; assessment specific complaints Vital signs are reviewed showing temperature of 98.1, pulse 81, respirations 16 and blood pressure of 123/69; SpO2 of 98% on 2 L Lab review shows a white blood count of 11.8, hemoglobin of 12.8 and platelet count of 349; INR remains subtherapeutic at 1.7; sodium of 137 potassium 4.4; blood glucose ranges in 181-201 We will continue with nebulizer treatments and steroid therapy; doxycycline 100 mg IV every 12 hours 08/15/2019 patient is seen and evaluated in room at bedside; c/o shoulder pain and wants IV pain medication VS and labs are stable ; we will plan to switch to PO steroids and poss dc tomorrow Objective - Vital Signs Vital signs: Vital Signs Temp 98.0 F 08/15/19 11:20 Pulse 92 08/15/19 16:00 Resp 16 08/15/19 11:20 BP 159/69 08/15/19 11:20 Pulse Ox 94 L 08/15/19 11:20 Intake & Output 08/14/19 08/15/19 08/15/19 18:59 06:59 18:59 Intake Total 950 Balance 950 Intake: Oral 950 Other: Voiding Method Toilet Toilet Toilet # Voids 2 2 3 - Exam GENERAL: The patient is alert and oriented x3, not in any acute distress. Well developed, well nourished. HEENT: Pupils are round and equally reacting to light. EOMI. No scleral icterus. No conjunctival pallor. Normocephalic, atraumatic. No pharyngeal erythema. No thyromegaly. CARDIOVASCULAR: S1 and S2 present. No murmurs, rubs, or gallops. PULMONARY: Chest is clear to auscultation, no wheezing or crackles. ABDOMEN: Soft, nontender, nondistended, normoactive bowel sounds. No palpable organomegaly. MUSCULOSKELETAL: No joint swelling or deformity. EXTREMITIES: No cyanosis, clubbing, or pedal edema. NEUROLOGICAL: Gross neurological examination did not reveal any focal deficits. SKIN: No rashes. - Labs CBC & Chem 7: 08/16/19 07:50 08/16/19 07:50 Labs: Abnormal Lab Results - Last 24 Hours (Table) 08/14/19 08/15/19 08/15/19 Range/Units 20:18 06:56 07:41 WBC (3.8-10.6) k/uL RBC (4.30-5.90) m/uL MCV (80.0-100.0) fL Neutrophils # (1.3-7.7) k/uL Lymphocytes # (1.0-4.8) k/uL PT 22.2 H (9.0-12.0) sec INR 2.3 H (<1.2) Creatinine (0.66-1.25) mg/dL Glucose (74-99) mg/dL POC Glucose (mg/dL) 181 H 123 H (75-99) mg/dL 08/15/19 08/15/19 08/15/19 Range/Units 07:41 07:41 11:19 WBC 14.5 H (3.8-10.6) k/uL RBC 4.23 L (4.30-5.90) m/uL MCV 103.3 H (80.0-100.0) fL Neutrophils # 13.9 H (1.3-7.7) k/uL Lymphocytes # 0.2 L (1.0-4.8) k/uL PT (9.0-12.0) sec INR (<1.2) Creatinine 0.51 L (0.66-1.25) mg/dL Glucose 191 H (74-99) mg/dL POC Glucose (mg/dL) 224 H (75-99) mg/dL 08/15/19 Range/Units 17:11 WBC (3.8-10.6) k/uL RBC (4.30-5.90) m/uL MCV (80.0-100.0) fL Neutrophils # (1.3-7.7) k/uL Lymphocytes # (1.0-4.8) k/uL PT (9.0-12.0) sec INR (<1.2) Creatinine (0.66-1.25) mg/dL Glucose (74-99) mg/dL POC Glucose (mg/dL) 131 H (75-99) mg/dL Microbiology - Last 24 Hours (Table) 08/12/19 18:44 Blood Culture - Preliminary Blood No Growth after 48 hours Assessment and Plan Assessment: 1. Acute exacerbation COPD; start patient on DuoNeb nebulizer treatments, Solu-Medrol 40 mg IV every 8 hours and doxycycline 100 mg every 12 hours; continue with home dose of Singulair; O2 per respiratory protocol 2. Leukocytosis/severe purulent tracheobronchitis; doxycycline 100 mg IV every 12 hours; continue with DuoNeb nebulizer treatments 3. Thrombocytopenia; etiology unclear; we will monitor CBC 4. Recent diagnosis of pulmonary embolism/ anticoagulation therapy; subthe rapeutic; restart patient on home dose of Coumadin with pharmacy dosing service and monitor PT/INR daily 5. Uncontrolled hypertension; amlodipine 10 mg daily; monitor blood pressure closely 6. DVT prophylaxis; SCDs CODE STATUS; full code
[2019-08-16] MEDS ORDERED: WARFARIN 0.5 MG TAB PO ONE (18:00)
== END 2019-08-16 14:44 | disposition home or self-care (01) | DRG 190 ==
LOC: EC 17:43 → 6NMEDSUR 19:56 → OBSVTOIN 08-14 15:31
PROVIDERS: ADMIT Internal Medicine; ATTEND Internal Medicine
DX: J44.1 Chronic obstructive pulmonary disease with (acute) exacerbation (principal); I26.99 Other pulmonary embolism without acute cor pulmonale; J96.11 Chronic respiratory failure with hypoxia; I69.951 Hemiplegia and hemiparesis following unspecified cerebrovascular disease affecting right dominant side; D69.6 Thrombocytopenia, unspecified; F17.210 Nicotine dependence, cigarettes, uncomplicated; F32.9 Major depressive disorder, single episode, unspecified; F41.0 Panic disorder [episodic paroxysmal anxiety]; I10 Essential (primary) hypertension; I25.2 Old myocardial infarction; M25.519 Pain in unspecified shoulder; H54.61 Unqualified visual loss, right eye, normal vision left eye; B02.9 Zoster without complications; Z79.01 Long term (current) use of anticoagulants; Z79.899 Other long term (current) drug therapy; Z79.52 Long term (current) use of systemic steroids; Z91.018 Allergy to other foods; Z91.010 Allergy to peanuts; Z99.81 Dependence on supplemental oxygen; Z80.51 Family history of malignant neoplasm of kidney; Z80.8 Family history of malignant neoplasm of other organs or systems; Z82.5 Family history of asthma and other chronic lower respiratory diseases
CPT/HCPCS: 36415; 71046; 80048; 80053; 83036; 83605; 83880; 84484; 85025; 85610; 85730; 87040; 93005; 94640; 94760; 99285

== ENCOUNTER 2019-08-22 19:32 | Emergency (ER) | payer OTHER ==
[2019-08-22 19:51] VITALS: TEMP 98
[2019-08-22] MEDS ORDERED: IPRATROPIUM-ALBUTEROL 3 ML NEB INHALATION STA ×2 (20:24→22:10)
--- NOTE | 2019-08-22 20:55 | ED ---
General Adult HPI - General Chief complaint: Shortness of Breath Stated complaint: Difficulty Breathing Time Seen by Provider: 08/22/19 19:53 Source: patient, EMS, RN notes reviewed Mode of arrival: EMS - History of Present Illness Initial comments: 59-year-old male with a significant past medical history presents for shortness of breath. Patient has COPD and is currently on home oxygen. Patient was recently admitted from the hospital for COPD exacerbation and released a few days ago. He is still taking steroids and doxycycline. However his shortness of breath worsened again yesterday. He is not having any chest pain. Patient does have a history of PE and is on Coumadin. He is not having any fevers at home. Patient has no other complaints at this time including chest pain, abdominal pain, nausea or vomiting, headache, or visual changes. - Related Data Home Medications Medication Instructions Recorded Confirmed Fluticasone/Salmeterol 1 puff INHALATION RT-BID 04/29/19 08/12/19 [Fluticasone-Salmeterol 232-14] amLODIPine [Norvasc] 10 mg PO DAILY 04/29/19 08/12/19 Albuterol Inhaler [Ventolin Hfa 1 - 2 puff INHALATION RT-Q6H PRN 05/11/19 08/12/19 Inhaler] Nicotine 14Mg/24Hr Patch [Habitrol] 1 patch TRANSDERM DAILY 06/04/19 08/12/19 Ipratropium-Albuterol Nebulize 3 ml INHALATION RT-QID 06/13/19 08/12/19 [Duoneb 0.5 mg-3 mg/3 ml Soln] Folic Acid 1 mg PO DAILY 06/29/19 08/12/19 Lidocaine [Aspercreme Patch] 1 patch TRANSDERM DAILY PRN 07/03/19 08/12/19 Melatonin 10 mg PO HS 08/12/19 08/12/19 Warfarin [Coumadin] 2.5 mg PO HS 08/12/19 08/12/19 Previous Rx's Medication Instructions Recorded Montelukast [Singulair] 10 mg PO HS #30 tab 11/17/18 Escitalopram [Lexapro] 10 mg PO DAILY #15 tab 05/15/19 Gabapentin [Neurontin] 800 mg PO TID #12 tab 07/21/19 Doxycycline [Vibramycin] 100 mg PO BID 3 Days #6 capsule 08/16/19 predniSONE See Taper PO DIRECTED 9 Days 08/16/19 #21 tab Allergies Allergy/AdvReac Type Severity Reaction Status Date / Time tree nut [Nut] Allergy Unknown Dyspnea, Verified 08/22/19 19:51 Rash/Hives peanut [Peanut Butter] AdvReac Dyspnea, Verified 08/22/19 19:51 Rash/Hives Review of Systems ROS Statement: Those systems with pertinent positive or pertinent negative responses have been documented in the HPI. ROS Other: All systems not noted in ROS Statement are negative. 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 Last Myocardial Infarction Date:: unknown History of Any Multi-Drug Resistant Organisms: None Reported Past Surgical History: Orthopedic Surgery Additional Past Surgical History / Comment(s): metal plate left hand middle finger, right eye enucleation. Past Anesthesia/Blood Transfusion Reactions: No Reported Reaction Past Psychological History: Anxiety, Depression, Panic Disorder Smoking Status: Current some day smoker Past Drug Use History: Marijuana - Past Family History Mother Family Medical History: Cancer Additional Family Medical History / Comment(s): Pt believes his Mom of Kidney Cancer Father Family Medical History: Cancer, COPD, Respiratory Disorder Additional Family Medical History / Comment(s): Melanoma General Exam General appearance: alert, in no apparent distress Head exam: Present: atraumatic, normocephalic, normal inspection Eye exam: Present: normal appearance, PERRL, EOMI. Absent: scleral icterus, conjunctival injection, periorbital swelling ENT exam: Present: normal exam, mucous membranes moist Neck exam: Present: normal inspection. Absent: tenderness, meningismus, lymphadenopathy Respiratory exam: Present: decreased breath sounds (Diminished breath sounds bilaterally). Absent: respiratory distress, wheezes, rales, rhonchi, stridor Cardiovascular Exam: Present: regular rate, normal rhythm, normal heart sounds. Absent: systolic murmur, diastolic murmur, rubs, gallop, clicks Neurological exam: Present: alert Course Vital Signs 08/22/19 08/22/19 08/22/19 19:47 20:42 20:55 Temperature 98 F Pulse Rate 94 86 84 Respiratory 20 Rate Blood Pressure 140/85 O2 Sat by Pulse 96 Oximetry EKG Findings - EKG Comments: EKG Findings:: Normal sinus rhythm, ventricular rate 92, NE interval 134, QTc 462 Medical Decision Making - Medical Decision Making Vitals are stable. Patient is 96% on oxygen 2 L which she uses at home. CBC shows a white blood cell count of 12. INR is therapeutic at 2.9. Patient taking Coumadin. CMP is unremarkable. Chest x-ray shows some atelectasis in the left lung base the same or slightly worse than last exam. Normal heart. Patient was just released from this hospital for COPD exacerbation earlier in the week. He is still taking his antibiotic and steroid. At this point patient was given 2 breathing treatments. He is not in any respiratory distress. He is lying back in bed requesting pop and sandwiches At this point patient will be given a dose of IV steroids and he will continue breathing treatments at home. Recommend he follows up with his doctor in one to 2 days. He will return here if he has any worsening symptoms. - Lab Data Result diagrams: 08/22/19 21:20 08/22/19 21:20 Lab Results 08/22/19 08/22/19 08/22/19 Range/Units 21:20 21:20 21:20 WBC 12.0 H (3.8-10.6) k/uL RBC 4.37 (4.30-5.90) m/uL Hgb 14.3 (13.0-17.5) gm/dL Hct 43.4 (39.0-53.0) % MCV 99.3 (80.0-100.0) fL MCH 32.7 (25.0-35.0) pg MCHC 32.9 (31.0-37.0) g/dL RDW 13.5 (11.5-15.5) % Plt Count 301 (150-450) k/uL Neutrophils % 73 % Lymphocytes % 18 % Monocytes % 6 % Eosinophils % 2 % Basophils % 0 % Neutrophils # 8.7 H (1.3-7.7) k/uL Lymphocytes # 2.1 (1.0-4.8) k/uL Monocytes # 0.7 (0-1.0) k/uL Eosinophils # 0.3 (0-0.7) k/uL Basophils # 0.0 (0-0.2) k/uL PT 27.8 H (9.0-12.0) sec INR 2.9 H (<1.2) APTT 41.6 H (22.0-30.0) sec Sodium 134 L (137-145) mmol/L Potassium 3.9 (3.5-5.1) mmol/L Chloride 102 (98-107) mmol/L Carbon Dioxide 26 (22-30) mmol/L Anion Gap 6 mmol/L BUN 3 L (9-20) mg/dL Creatinine 0.47 L (0.66-1.25) mg/dL Est GFR (CKD-EPI)AfAm >90 (>60 ml/min/1.73 sqM) Est GFR (CKD-EPI)NonAf >90 (>60 ml/min/1.73 sqM) Glucose 74 (74-99) mg/dL Calcium 9.3 (8.4-10.2) mg/dL Total Bilirubin 0.5 (0.2-1.3) mg/dL AST 28 (17-59) U/L ALT 44 (4-49) U/L Alkaline Phosphatase 57 (38-126) U/L Troponin I (0.000-0.034) ng/mL Total Protein 6.0 L (6.3-8.2) g/dL Albumin 3.7 (3.5-5.0) g/dL 08/22/19 Range/Units 21:20 WBC (3.8-10.6) k/uL RBC (4.30-5.90) m/uL Hgb (13.0-17.5) gm/dL Hct (39.0-53.0) % MCV (80.0-100.0) fL MCH (25.0-35.0) pg MCHC (31.0-37.0) g/dL RDW (11.5-15.5) % Plt Count (150-450) k/uL Neutrophils % % Lymphocytes % % Monocytes % % Eosinophils % % Basophils % % Neutrophils # (1.3-7.7) k/uL Lymphocytes # (1.0-4.8) k/uL Monocytes # (0-1.0) k/uL Eosinophils # (0-0.7) k/uL Basophils # (0-0.2) k/uL PT (9.0-12.0) sec INR (<1.2) APTT (22.0-30.0) sec Sodium (137-145) mmol/L Potassium (3.5-5.1) mmol/L Chloride (98-107) mmol/L Carbon Dioxide (22-30) mmol/L Anion Gap mmol/L BUN (9-20) mg/dL Creatinine (0.66-1.25) mg/dL Est GFR (CKD-EPI)AfAm (>60 ml/min/1.73 sqM) Est GFR (CKD-EPI)NonAf (>60 ml/min/1.73 sqM) Glucose (74-99) mg/dL Calcium (8.4-10.2) mg/dL Total Bilirubin (0.2-1.3) mg/dL AST (17-59) U/L ALT (4-49) U/L Alkaline Phosphatase (38-126) U/L Troponin I <0.012 (0.000-0.034) ng/mL Total Protein (6.3-8.2) g/dL Albumin (3.5-5.0) g/dL Disposition Clinical Impression: COPD exacerbation Disposition: HOME SELF-CARE Condition: Good Instructions (If sedation given, give patient instructions): COPD (Chronic Obstructive Pulmonary Disease) (ED) Additional Instructions: Please continue your breathing treatments and medications including the steroid and antibiotic at home. Please follow-up with primary care on Saturday. If you have any worsening symptoms before then return to the emergency department. Is patient prescribed a controlled substance at d/c from ED?: No Referrals: Urszula Carrasco MD [Primary Care Provider] - 1-2 days Time of Disposition: 22:31
[2019-08-22 21:31] LABS: Basophils % (A) 0 %; Eosinophils # (A) 0.3 k/uL (0-0.7); Eosinophils % (A) 2 %; HCT 43.4 % (39.0-53.0); HGB 14.3 gm/dL (13.0-17.5); Lymphocytes # (A) 2.1 k/uL (1.0-4.8); Lymphocytes % (A) 18 %; MCH 32.7 pg (25.0-35.0); MCHC 32.9 g/dL (31.0-37.0); MCV 99.3 fL (80.0-100.0); Mean Platelet Volume 6.4; Monocytes # (A) 0.7 k/uL (0-1.0); Monocytes % (A) 6 %; Neutrophils # (A) 8.7 k/uL (1.3-7.7); Neutrophils % (A) 73 %; Platelet Count 301 k/uL (150-450); RBC 4.37 m/uL (4.30-5.90); RDW 13.5 % (11.5-15.5)
[2019-08-22 21:40] LABS: ALT 44 U/L (4-49); AST 28 U/L (17-59); African American GFR (CKD) >90 (>60 ml/min/1.73 sqM); Albumin 3.7 g/dL (3.5-5.0); Alkaline Phosphatase 57 U/L (38-126); Anion Gap 6 mmol/L; Blood Urea Nitrogen 3 mg/dL (9-20); Calcium 9.3 mg/dL (8.4-10.2); Carbon Dioxide 26 mmol/L (22-30); Chloride 102 mmol/L (98-107); Glucose 74 mg/dL (74-99); Non-African American GFR(CKD) >90 (>60 ml/min/1.73 sqM); Potassium 3.9 mmol/L (3.5-5.1); Sodium 134 mmol/L (137-145); Total Bilirubin 0.5 mg/dL (0.2-1.3)
[2019-08-22 21:48] LABS: INR 2.9 (<1.2); Partial Thromboplastin Time 41.6 sec (22.0-30.0); Prothrombin Time 27.8 sec (9.0-12.0)
--- NOTE | 2019-08-22 21:54 | XR ---
EXAMINATION TYPE: XR chest 2V DATE OF EXAM: 08/22/2019 COMPARISON: 08/12/2019 HISTORY: Difficulty breathing TECHNIQUE: 2 views FINDINGS: There is no heart failure nor confluent pneumonic infiltrate. Costophrenic angles are clear . There is some linear density at the left lung base. IMPRESSION: There is some atelectasis left lung base the same or slightly worse than last exam. Linda l heart.
[2019-08-22] MEDS ORDERED: methylPREDNISolone SOD SUCCI 125 MG/2 ML VIAL IV STA (22:29)
[2019-08-22 23:39] VITALS: BP 123/99; PULSE 80; RESP 18
== END 2019-08-22 23:35 | disposition home or self-care (01) ==
LOC: EC 19:32
DX: J44.1 Chronic obstructive pulmonary disease with (acute) exacerbation (principal); J98.11 Atelectasis; I10 Essential (primary) hypertension; I25.2 Old myocardial infarction; F17.200 Nicotine dependence, unspecified, uncomplicated; Z79.01 Long term (current) use of anticoagulants; Z79.51 Long term (current) use of inhaled steroids; Z79.899 Other long term (current) drug therapy; Z91.010 Allergy to peanuts; Z91.018 Allergy to other foods; Z99.81 Dependence on supplemental oxygen; Z86.73 Personal history of transient ischemic attack (TIA), and cerebral infarction without residual deficits; Z86.718 Personal history of other venous thrombosis and embolism; Z86.711 Personal history of pulmonary embolism
CPT/HCPCS: 36415; 94640 ×2; 93005; 80053; 84484; 85025; 85610; 85730; 71046; 99285; 96374; J2930

== ENCOUNTER 2019-09-12 16:26 | Inpatient (IN) | payer OTHER ==
[2019-09-12] MEDS ORDERED: DEXAMETHASONE SOD PHOSPHATE 10 MG/ML 1 ML VIAL IV STA (16:50)
[2019-09-12] MEDS ORDERED: ASPIRIN 81 MG PO STA (17:04)
[2019-09-12 17:05] LABS: Basophils # (A) 0.2 k/uL (0-0.2); Basophils % (A) 1 %; Eosinophils # (A) 0.3 k/uL (0-0.7); Eosinophils % (A) 2 %; HGB 14.9 gm/dL (13.0-17.5); Lymphocytes # (A) 1.3 k/uL (1.0-4.8); Lymphocytes % (A) 9 %; MCH 32.5 pg (25.0-35.0); MCHC 32.5 g/dL (31.0-37.0); Mean Platelet Volume 6.5; Monocytes # (A) 0.7 k/uL (0-1.0); Monocytes % (A) 5 %; Neutrophils # (A) 11.7 k/uL (1.3-7.7); Neutrophils % (A) 82 %; Platelet Count 383 k/uL (150-450); RBC 4.59 m/uL (4.30-5.90); RDW 13.3 % (11.5-15.5); WBC 14.2 k/uL (3.8-10.6)
--- NOTE | 2019-09-12 17:09 | ED ---
General Adult HPI - General Chief complaint: Shortness of Breath Stated complaint: CLEMENCIA Time Seen by Provider: 09/12/19 16:41 Source: EMS Mode of arrival: EMS Limitations: no limitations - History of Present Illness Initial comments: Dictation was produced using [employer] dictation software. please excuse any grammatical, word or spelling errors. Chief Complaint: 59-year-old male with past medical history of angina, COPD myocardia infarction presents with chest pain shortness of breath. History of Present Illness: This is a 51-year-old male who presents with shortness breath and difficulty breathing. Patient has history of COPD. He also has history of coronary artery disease. He reports that he's been having wheezing and shortness of breath over the last 3 days. He is trying to manage his symptoms at home however he feels like he is not getting anywhere. His complains of chest pressure and heaviness substernal chest. He states he has a history of coronary artery disease. No associated diaphoresis. States that the pain as a tightness not a sharp pain. The ROS documented in this emergency department record has been reviewed and confirmed by me. Those systems with pertinent positive or negative responses have been documented in the HPI. All other systems are other negative and/or noncontributory. PHYSICAL EXAM: General Impression: Alert and oriented x3, not in acute distress HEENT: Normocephalic atraumatic, extra-ocular movements intact, pupils equal and reactive to light bilaterally, mucous membranes moist. Cardiovascular: Heart regular rate and rhythm, S1&S2 audible, no murmurs, rubs or gallops Chest: Slight wheezing bilaterally Abdomen: Bowel sounds present, abdomen soft, non-tender, non-distended, no organomegaly Musculoskeletal: Pulses present and equal in all extremities, no peripheral edema Motor: no focal deficits noted Neurological: CN II-XII grossly intact, no focal motor or sensory deficits noted Skin: Intact with no visualized rashes Psych: Normal affect and mood ED course: 59 Year-old male past medical history of COPD and coronary artery disease presents with chest pain and shortness of breath. As upon arrival are within acceptable limits. Patient is well-appearing at bedside. Presents with atypical chest pain typical features. Laboratory evaluation obtained. Mild leukocytosis of 14.2 unclear etiology. About panel is unremarkable. Bone is negative. Brain natruretic peptide negative. Chest x-ray shows right upper lobe infiltrate similar to last exam no evidence of any new infiltrate. Patient still wheezing at bedside slightly. He does not feel comfortable being discharged. We'll have patient admitted for COPD exacerbation. Did complain of some chest pain however his cardiac workup is negative is given aspirin for possible acute coronary syndrome. Patient be admitted for serial troponins and COPD exacerbation. EKG interpretation: Ventricular rate 93, normal sinus rhythm,. 134, care is 84, QTc 457. No WA prolongation, no QTC prolongation, no ST or T-wave changes noted. Overall, this EKG is unremarkable - Related Data Home Medications Medication Instructions Recorded Confirmed Fluticasone/Salmeterol 1 puff INHALATION RT-BID 04/29/19 08/12/19 [Fluticasone-Salmeterol 232-14] amLODIPine [Norvasc] 10 mg PO DAILY 04/29/19 08/12/19 Albuterol Inhaler [Ventolin Hfa 1 - 2 puff INHALATION RT-Q6H PRN 05/11/19 08/12/19 Inhaler] Nicotine 14Mg/24Hr Patch [Habitrol] 1 patch TRANSDERM DAILY 06/04/19 08/12/19 Ipratropium-Albuterol Nebulize 3 ml INHALATION RT-QID 06/13/19 08/12/19 [Duoneb 0.5 mg-3 mg/3 ml Soln] Folic Acid 1 mg PO DAILY 06/29/19 08/12/19 Lidocaine [Aspercreme Patch] 1 patch TRANSDERM DAILY PRN 07/03/19 08/12/19 Melatonin 10 mg PO HS 08/12/19 08/12/19 Warfarin [Coumadin] 2.5 mg PO HS 08/12/19 08/12/19 Previous Rx's Medication Instructions Recorded Montelukast [Singulair] 10 mg PO HS #30 tab 11/17/18 Escitalopram [Lexapro] 10 mg PO DAILY #15 tab 05/15/19 Gabapentin [Neurontin] 800 mg PO TID #12 tab 07/21/19 Doxycycline [Vibramycin] 100 mg PO BID 3 Days #6 capsule 08/16/19 predniSONE See Taper PO DIRECTED 9 Days 08/16/19 #21 tab Allergies Allergy/AdvReac Type Severity Reaction Status Date / Time tree nut [Nut] Allergy Unknown Dyspnea, Verified 08/22/19 19:51 Rash/Hives peanut [Peanut Butter] AdvReac Dyspnea, Verified 08/22/19 19:51 Rash/Hives Review of Systems ROS Statement: Those systems with pertinent positive or pertinent negative responses have been documented in the HPI. ROS Other: All systems not noted in ROS Statement are negative. 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 Last Myocardial Infarction Date:: unknown History of Any Multi-Drug Resistant Organisms: None Reported Past Surgical History: Orthopedic Surgery Additional Past Surgical History / Comment(s): metal plate left hand middle finger, right eye enucleation. Past Anesthesia/Blood Transfusion Reactions: No Reported Reaction Past Psychological History: Anxiety, Depression, Panic Disorder Smoking Status: Current some day smoker Past Alcohol Use History: Occasional Past Drug Use History: Marijuana - Past Family History Mother Family Medical History: Cancer Additional Family Medical History / Comment(s): Pt believes his Mom of Kidney Cancer Father Family Medical History: Cancer, COPD, Respiratory Disorder Additional Family Medical History / Comment(s): Melanoma General Exam Limitations: no limitations Course Vital Signs 09/12/19 09/12/19 09/12/19 16:35 16:39 17:59 Temperature 98.0 F Pulse Rate 96 85 Respiratory 18 23 18 Rate Blood Pressure 155/99 150/88 O2 Sat by Pulse 96 98 Oximetry Medical Decision Making - Lab Data Result diagrams: 09/12/19 16:47 09/12/19 16:47 Lab Results 09/12/19 09/12/19 09/12/19 Range/Units 16:47 16:47 16:47 WBC 14.2 H (3.8-10.6) k/uL RBC 4.59 (4.30-5.90) m/uL Hgb 14.9 (13.0-17.5) gm/dL Hct 46.0 (39.0-53.0) % MCV 100.2 H D (80.0-100.0) fL MCH 32.5 (25.0-35.0) pg MCHC 32.5 (31.0-37.0) g/dL RDW 13.3 (11.5-15.5) % Plt Count 383 (150-450) k/uL Neutrophils % 82 % Lymphocytes % 9 % Monocytes % 5 % Eosinophils % 2 % Basophils % 1 % Neutrophils # 11.7 H (1.3-7.7) k/uL Lymphocytes # 1.3 (1.0-4.8) k/uL Monocytes # 0.7 (0-1.0) k/uL Eosinophils # 0.3 (0-0.7) k/uL Basophils # 0.2 (0-0.2) k/uL Sodium 136 L (137-145) mmol/L Potassium 4.2 (3.5-5.1) mmol/L Chloride 100 (98-107) mmol/L Carbon Dioxide 27 (22-30) mmol/L Anion Gap 9 mmol/L BUN 6 L (9-20) mg/dL Creatinine 0.43 L (0.66-1.25) mg/dL Est GFR (CKD-EPI)AfAm >90 (>60 ml/min/1.73 sqM) Est GFR (CKD-EPI)NonAf >90 (>60 ml/min/1.73 sqM) Glucose 83 (74-99) mg/dL Calcium 9.4 (8.4-10.2) mg/dL Troponin I (0.000-0.034) ng/mL NT-Pro-B Natriuret Pep 226 pg/mL 09/12/19 Range/Units 16:47 WBC (3.8-10.6) k/uL RBC (4.30-5.90) m/uL Hgb (13.0-17.5) gm/dL Hct (39.0-53.0) % MCV (80.0-100.0) fL MCH (25.0-35.0) pg MCHC (31.0-37.0) g/dL RDW (11.5-15.5) % Plt Count (150-450) k/uL Neutrophils % % Lymphocytes % % Monocytes % % Eosinophils % % Basophils % % Neutrophils # (1.3-7.7) k/uL Lymphocytes # (1.0-4.8) k/uL Monocytes # (0-1.0) k/uL Eosinophils # (0-0.7) k/uL Basophils # (0-0.2) k/uL Sodium (137-145) mmol/L Potassium (3.5-5.1) mmol/L Chloride (98-107) mmol/L Carbon Dioxide (22-30) mmol/L Anion Gap mmol/L BUN (9-20) mg/dL Creatinine (0.66-1.25) mg/dL Est GFR (CKD-EPI)AfAm (>60 ml/min/1.73 sqM) Est GFR (CKD-EPI)NonAf (>60 ml/min/1.73 sqM) Glucose (74-99) mg/dL Calcium (8.4-10.2) mg/dL Troponin I <0.012 (0.000-0.034) ng/mL NT-Pro-B Natriuret Pep pg/mL Disposition Clinical Impression: Chest pain Disposition: ADMITTED IP TO THIS HOSP Condition: Fair Referrals: Urszula Carrasco MD [Primary Care Provider] - 1-2 days Decision Time: 18:03
[2019-09-12 17:15] LABS: MCV 100.2 fL (80.0-100.0)
[2019-09-12 17:17] LABS: African American GFR (CKD) >90 (>60 ml/min/1.73 sqM); Anion Gap 9 mmol/L; Blood Urea Nitrogen 6 mg/dL (9-20); Calcium 9.4 mg/dL (8.4-10.2); Carbon Dioxide 27 mmol/L (22-30); Chloride 100 mmol/L (98-107); Glucose 83 mg/dL (74-99); Non-African American GFR(CKD) >90 (>60 ml/min/1.73 sqM); Potassium 4.2 mmol/L (3.5-5.1); Sodium 136 mmol/L (137-145)
--- NOTE | 2019-09-12 17:47 | XR ---
EXAMINATION TYPE: XR chest 2V DATE OF EXAM: 09/12/2019 COMPARISON: 08/22/2019 HISTORY: Difficulty breathing TECHNIQUE: 3 views FINDINGS: There is no heart failure nor pulmonary consolidation.. There is 1 cm nodular density in th e posterior right upper lobe. There is no pleural effusion. Heart size is normal. There are chest joselin ds. Bony thorax is intact IMPRESSION: Right upper lobe nodular infiltrate similar to last exam. There is probably also no box e compared to 07/19/2019. This is same location as the cavity and fluid level on the older chest x-ray of 05/12/2019. No evidence of any new pulmonary infiltrate.
[2019-09-12] MEDS ORDERED: AZITHROMYCIN 500 MG TAB PO STA (17:59)
[2019-09-12] MEDS: IPRATROPIUM-ALBUTEROL 3 ML NEB INHALATION PRN ×2 (18:35→23:48)
[2019-09-12] MEDS ORDERED: HYDROcodone/APAP 5-325MG 1 EACH TAB PO STA (19:34)
[2019-09-13] MEDS ORDERED: HYDROcodone/APAP 5-325MG 1 EACH TAB PO STA (02:17)
[2019-09-13 05:34] LABS: Cholesterol 188 mg/dL (<200); HDL Cholesterol 91 mg/dL (40-60); LDL Cholesterol,Calculated 82 mg/dL (0-99); Triglycerides 73 mg/dL (<150)
[2019-09-13] MEDS: IPRATROPIUM-ALBUTEROL 3 ML NEB INHALATION PRN ×4 (07:06→19:11)
[2019-09-13] MEDS ORDERED: ASPIRIN 325 MG TAB PO SCH (09:00)
[2019-09-13] MEDS ORDERED: methylPREDNISolone SOD SUCCI 40 MG/ML 1 ML VIAL IV SCH (09:30)
[2019-09-13 09:41] LABS: INR 3.1 (<1.2); Prothrombin Time 30.3 sec (9.0-12.0)
--- NOTE | 2019-09-13 10:40 | P.CRDCN ---
History of Present Illness Consult date: 09/13/19 Consult reason: shortness of breath History of present illness: The patient is a 59-year-old male with past medical history of multiple comorbid conditions including end-stage COPD, CAD, CVA, and pulmonary emboli, who presents to the hospital with worsening shortness of breath and chest discomfort. He states he does not follow-up with a sole skiver outpatient. Cardiology was consulted for chest pain. His EKG showed sinus rhythm without ST or T-wave changes. Troponins were negative 3. Chest x-ray showed right upper lobe infiltrate, which was similar to previous readings. Echocardiogram from May 2019 showed normal LV function with mild mitral regurgitation. CT of the chest also done at this time showed extensive coronary calcifications. The patient is currently lying comfortably in bed on 2 L nasal cannula. He states he is having shortness of breath and chest discomfort with deep breaths. He states he has never felt this bad. He denies any palpitations, dizziness, or lightheadedness. He also states he has a congested cough. He states he has been compliant with his Coumadin regimen, which his primary care provider manages. PAST MEDICAL HISTORY: COPD, coronary artery disease, saddle pulmonary emboli, former smoker, CVA/TIA, hypertension, dyslipidemia REVIEW OF SYSTEMS: No fever or chills. Positive for cough or expectoration. No diaphoresis. Patient denies headache, dizziness, blurred vision, double vision. Patient denies any stomach discomfort. No nausea, vomiting. No hematochezia. No hematemesis. Denies any black stools or blood in his stools. Denies dysuria or hematuria. No muscle weakness or numbness. Positive for chest discomfort. Positive for shortness of breath. He states he does occasionally have palpitations with anxiety. PHYSICAL EXAMINATION: This is a 59-year-old male in no apparent distress at the time of my examination. HEENT: Head is atraumatic, normocephalic. Pupils are equal, round. Sclerae anicteric. Conjunctivae are clear. Mucous membranes of the mouth are moist. Neck is supple. There is no jugular venous distention. No carotid bruit is heard. CHEST EXAMINATION: Lungs are diminished bilaterally on auscultation. No chest wall tenderness is noted on palpation. Positive chest discomfort with deep breathing. HEART EXAMINATION: Heart regular rate and rhythm. S1, S2 heard. No murmurs, gallops or rub. ABDOMEN: Soft, nontender. Bowel sounds are heard. No organomegaly noted. EXTREMITIES: 2+ peripheral pulses with no evidence of peripheral edema and no calf tenderness noted. NEUROLOGIC EXAMINATION: Patient is awake, alert and oriented x3. LABORATORY DATA: WBC 14.2, hemoglobin 14.9, hematocrit 46.0, platelet 383, INR 3.1, sodium 136, potassium 4.2, BUN 6, creatinine 0.43, troponin negative 3, BNP 226, triglycerides 73, LDL 82, HDL 91. Vital signs: Blood pressure 124/71, heart rate 84, temperature 97.5 Fahrenheit, SpO2 99 on 3 L nasal cannula FINAL ASSESSMENT AND PLAN: #1 chest discomfort, likely pleuritic #2 history of coronary artery disease, CTA of the chest from May 2019 showed extensive coronary calcifications #3 shortness of breath, COPD exacerbation #4 hypertension, currently well controlled #5 dyslipidemia #6 history of saddle PE, currently on Coumadin, therapeutic PLAN: We will reduce the patient's aspirin 81 mg daily and start atorvastatin 10 mg for secondary prevention. Patient will undergo dobutamine stress echocardiogram in 2-D echocardiogram tomorrow. Further recommendations to follow testing. 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 Last Myocardial Infarction Date:: unknown History of Any Multi-Drug Resistant Organisms: None Reported Past Surgical History: Orthopedic Surgery Additional Past Surgical History / Comment(s): metal plate left hand middle finger, right eye enucleation. Past Anesthesia/Blood Transfusion Reactions: No Reported Reaction Past Psychological History: Anxiety, Depression, Panic Disorder Additional Psychological History / Comment(s): Lives in apartment, 17 steps to climb.Has a nebulizer/oxygen. 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 - Past Family History Mother Family Medical History: Cancer Additional Family Medical History / Comment(s): Pt believes his Mom of Kidney Cancer Father Family Medical History: Cancer, COPD, Respiratory Disorder Additional Family Medical History / Comment(s): Melanoma Medications and Allergies Home Medications Medication Instructions Recorded Confirmed Type Montelukast [Singulair] 10 mg PO HS #30 tab 11/17/18 09/12/19 Rx Fluticasone/Salmeterol 1 puff INHALATION RT-BID 04/29/19 09/12/19 History [Fluticasone-Salmeterol 232-14] amLODIPine [Norvasc] 10 mg PO DAILY 04/29/19 09/12/19 History Albuterol Inhaler [Ventolin Hfa 1 - 2 puff INHALATION RT-Q6H PRN 05/11/19 0 09/12/19 History Inhaler] Escitalopram [Lexapro] 10 mg PO DAILY #15 tab 05/15/19 09/12/19 Rx Nicotine 14Mg/24Hr Patch [Habitrol] 1 patch TRANSDERM DAILY 06/04/19 09/12/19 History Ipratropium-Albuterol Nebulize 3 ml INHALATION RT-QID 06/13/19 09/12/19 History [Duoneb 0.5 mg-3 mg/3 ml Soln] Gabapentin [Neurontin] 800 mg PO TID #12 tab 07/21/19 09/12/19 Rx Melatonin 10 mg PO HS 08/12/19 09/12/19 History Warfarin [Coumadin] 2.5 mg PO Q48H 08/12/19 09/12/19 History Warfarin Sodium [Coumadin] 5 mg PO Q48H 09/12/19 09/12/19 History Allergies Allergy/AdvReac Type Severity Reaction Status Date / Time tree nut [Nut] Allergy Unknown Dyspnea, Verified 09/12/19 19:31 Rash/Hives peanut [Peanut Butter] AdvReac Dyspnea, Verified 09/12/19 19:31 Rash/Hives Physical Exam Vitals: Vital Signs Temp Pulse Pulse Pulse Resp BP BP 09/13/19 07:19 89 09/13/19 07:09 97.5 F L 84 18 124/71 09/13/19 07:06 85 18 09/13/19 04:00 97.9 F 78 17 147/62 09/12/19 23:48 79 09/12/19 22:35 82 20 09/12/19 21:00 97.9 F 88 20 128/85 09/12/19 20:32 88 21 136/88 09/12/19 20:00 97.9 F 86 18 149/89 09/12/19 19:39 93 19 158/81 09/12/19 18:44 88 09/12/19 18:35 88 09/12/19 17:59 85 18 150/88 09/12/19 16:39 23 09/12/19 16:35 98.0 F 96 18 155/99 Pulse Ox 09/13/19 07:19 09/13/19 07:09 99 09/13/19 07:06 98 09/13/19 04:00 97 09/12/19 23:48 09/12/19 22:35 09/12/19 21:00 98 09/12/19 20:32 96 09/12/19 20:00 97 09/12/19 19:39 96 09/12/19 18:44 09/12/19 18:35 09/12/19 17:59 98 09/12/19 16:39 09/12/19 16:35 96 Intake and Output 09/12/19 09/13/19 09/13/19 22:59 06:59 14:59 Intake Total 100 Balance 100 Intake: Other 100 Other: Weight 70.76 kg Results 09/12/19 16:47 09/12/19 16:47 Cardiac Enzymes 09/12/19 09/12/19 09/13/19 Range/Units 16:47 23:05 04:51 Troponin I <0.012 <0.012 <0.012 (0.000-0.034) ng/mL Coagulation 09/13/19 Range/Units 09:27 PT 30.3 H (9.0-12.0) sec Lipids 09/13/19 Range/Units 04:51 Triglycerides 73 (<150) mg/dL Cholesterol 188 (<200) mg/dL HDL Cholesterol 91 H (40-60) mg/dL CBC 09/12/19 Range/Units 16:47 WBC 14.2 H (3.8-10.6) k/uL RBC 4.59 (4.30-5.90) m/uL Hgb 14.9 (13.0-17.5) gm/dL Hct 46.0 (39.0-53.0) % Plt Count 383 (150-450) k/uL Comprehensive Metabolic Panel 09/12/19 Range/Units 16:47 Sodium 136 L (137-145) mmol/L Potassium 4.2 (3.5-5.1) mmol/L Chloride 100 (98-107) mmol/L Carbon Dioxide 27 (22-30) mmol/L BUN 6 L (9-20) mg/dL Creatinine 0.43 L (0.66-1.25) mg/dL Glucose 83 (74-99) mg/dL Calcium 9.4 (8.4-10.2) mg/dL Current Medications Generic Name Dose Route Start Last Admin Trade Name Freq PRN Reason Stop Dose Admin Albuterol/Ipratropium 3 ml 09/12/19 18:04 09/13/19 07:06 Duoneb 0.5 Mg-3 Mg/3 Ml Soln INHALATION 3 ml RT-Q6H PRN Administration Wheezing Amlodipine Besylate 10 mg 09/13/19 10:00 Norvasc PO DAILY [facility] Aspirin 325 mg 09/13/19 09:00 09/13/19 09:31 Aspirin PO 325 mg DAILY [facility] Administration Budesonide/Formoterol Fumarate 2 puff 09/13/19 20:00 Symbicort 160-4.5 Mcg Inhaler INHALATION RT-BID [facility] Escitalopram Oxalate 10 mg 09/14/19 09:00 Lexapro PO DAILY [facility] Gabapentin 800 mg 09/13/19 16:00 Neurontin PO TID [facility] Doxycycline Hyclate 100 mg/ 100 mls @ 100 mls/hr 09/13/19 10:00 Sodium Chloride IVPB Q12HR [facility] Melatonin 10 mg 09/13/19 21:00 Melatonin PO HS [facility] Methylprednisolone Sodium Succinate 40 mg 09/13/19 09:30 09/13/19 09:31 Solu-Medrol IV 40 mg Q8HR [facility] Administration Montelukast Sodium 10 mg 09/13/19 21:00 Singulair PO HS L[facility] Intake and Output 09/12/19 09/13/19 09/13/19 22:59 06:59 14:59 Intake Total 100 Balance 100 Intake: Other 100 Other: Weight 70.76 kg 09/12/19 16:47 09/12/19 16:47
[2019-09-13] MEDS: amLODIPine 10 MG TAB PO SCH (10:46)
[2019-09-13] MEDS: DOXYCYCLINE 100 MG in SODIUM CHLORIDE 0.9% 100 ML IVPB SCH ×2 (10:46→20:38)
[2019-09-13] MEDS: HYDROcodone/APAP 5-325MG 1 EACH TAB PO PRN ×2 (12:38→20:41)
[2019-09-13 13:59] VITALS: BMI 25.2
--- NOTE | 2019-09-13 14:10 | P.HPIM ---
History of Present Illness H&P Date: 09/13/19 Chief Complaint: Chest pain/shortness of breath 59-year-old male with past medical history of multiple comorbid conditions including end-stage COPD, CAD, CVA, and pulmonary emboli, who presents to the hospital with worsening shortness of breath and chest discomfort. He states he does not follow-up with a social service assistant outpatient. Cardiology was consulted for chest pain. His EKG showed sinus rhythm without ST or T-wave changes. Troponins were negative 3. Chest x-ray showed right upper lobe infiltrate, which was similar to previous readings. Echocardiogram from May 2019 showed normal LV function with mild mitral regurgitation. CT of the chest also done at this time showed extensive coronary calcifications. Labwork reveals a white blood count of 14.2, hemoglobin 14.9, hematocrit 46.0 and platelet count of 383; INR is supratherapeutic at 3.1, sodium 136, potassium 4.2, BUN/creatinine ratio of 6/0.43; BNP of 226 Patient is admitted to the hospital for acute exacerbation of COPD and further evaluation of chest pain Review of Systems CONSTITUTIONAL: No fever, no malaise, no fatigue. HEENT: No recent visual problems or hearing problems. Denied any sore throat. CARDIOVASCULAR: No chest pain, orthopnea, PND, no palpitations, no syncope. PULMONARY: No shortness of breath, no cough, no hemoptysis. GASTROINTESTINAL: No diarrhea, no nausea, no vomiting, no abdominal pain. NEUROLOGICAL: No headaches, no weakness, no numbness. HEMATOLOGICAL: Denies any bleeding or petechiae. GENITOURINARY: Denies any burning micturition, frequency, or urgency. MUSCULOSKELETAL/RHEUMATOLOGICAL: Denies any joint pain, swelling, or any muscle pain. ENDOCRINE: Denies any polyuria or polydipsia. The rest of the 14-point review of systems is negative. 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 Last Myocardial Infarction Date:: unknown History of Any Multi-Drug Resistant Organisms: None Reported Past Surgical History: Orthopedic Surgery Additional Past Surgical History / Comment(s): metal plate left hand middle finger, right eye enucleation. Past Anesthesia/Blood Transfusion Reactions: No Reported Reaction Past Psychological History: Anxiety, Depression, Panic Disorder Additional Psychological History / Comment(s): Lives in apartment, 17 steps to climb.Has a nebulizer/oxygen. 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 - Past Family History Mother Family Medical History: Cancer Additional Family Medical History / Comment(s): Pt believes his Mom of Kidney Cancer Father Family Medical History: Cancer, COPD, Respiratory Disorder Additional Family Medical History / Comment(s): Melanoma Medications and Allergies Home Medications Medication Instructions Recorded Confirmed Type Montelukast [Singulair] 10 mg PO HS #30 tab 11/17/18 09/12/19 Rx Fluticasone/Salmeterol 1 puff INHALATION RT-BID 04/29/19 09/12/19 History [Fluticasone-Salmeterol 232-14] amLODIPine [Norvasc] 10 mg PO DAILY 04/29/19 09/12/19 History Albuterol Inhaler [Ventolin Hfa 1 - 2 puff INHALATION RT-Q6H PRN 05/11/19 09/12/19 History Inhaler] Escitalopram [Lexapro] 10 mg PO DAILY #15 tab 05/15/19 09/12/19 Rx Nicotine 14Mg/24Hr Patch [Habitrol] 1 patch TRANSDERM DAILY 06/04/19 09/12/19 History Ipratropium-Albuterol Nebulize 3 ml INHALATION RT-QID 06/13/19 09/12/19 History [Duoneb 0.5 mg-3 mg/3 ml Soln] Gabapentin [Neurontin] 800 mg PO TID #12 tab 07/21/19 09/12/19 Rx Melatonin 10 mg PO HS 08/12/19 09/12/19 History Warfarin [Coumadin] 2.5 mg PO Q48H 08/12/19 09/12/19 History Warfarin Sodium [Coumadin] 5 mg PO Q48H 09/12/19 09/12/19 History Allergies Allergy/AdvReac Type Severity Reaction Status Date / Time tree nut [Nut] Allergy Unknown Dyspnea, Verified 09/12/19 19:31 Rash/Hives peanut [Peanut Butter] AdvReac Dyspnea, Verified 09/12/19 19:31 Rash/Hives Physical Exam Vitals: Vital Signs Temp Pulse Pulse Pulse Resp BP BP 09/13/19 07:19 89 09/13/19 07:09 97.5 F L 84 18 124/71 09/13/19 07:06 85 18 09/13/19 04:00 97.9 F 78 17 147/62 09/12/19 23:48 79 09/12/19 22:35 82 20 09/12/19 21:00 97.9 F 88 20 128/85 09/12/19 20:32 88 21 136/88 09/12/19 20:00 97.9 F 86 18 149/89 09/12/19 19:39 93 19 158/81 09/12/19 18:44 88 09/12/19 18:35 88 09/12/19 17:59 85 18 150/88 09/12/19 16:39 23 09/12/19 16:35 98.0 F 96 18 155/99 Pulse Ox 09/13/19 07:19 09/13/19 07:09 99 09/13/19 07:06 98 09/13/19 04:00 97 09/12/19 23:48 09/12/19 22:35 09/12/19 21:00 98 09/12/19 20:32 96 09/12/19 20:00 97 09/12/19 19:39 96 09/12/19 18:44 09/12/19 18:35 09/12/19 17:59 98 09/12/19 16:39 09/12/19 16:35 96 Intake and Output 09/12/19 09/13/19 09/13/19 22:59 06:59 14:59 Other: Weight 70.76 kg PHYSICAL EXAMINATION: This is a 59-year-old male in no apparent distress at the time of my examination. HEENT: Head is atraumatic, normocephalic. Pupils are equal, round. Sclerae anicteric. Conjunctivae are clear. Mucous membranes of the mouth are moist. Neck is supple. There is no jugular venous distention. No carotid bruit is heard. CHEST EXAMINATION: Lungs are diminished bilaterally on auscultation. No chest wall tenderness is noted on palpation. Positive chest discomfort with deep b reathing. HEART EXAMINATION: Heart regular rate and rhythm. S1, S2 heard. No murmurs, gallops or rub. ABDOMEN: Soft, nontender. Bowel sounds are heard. No organomegaly noted. EXTREMITIES: 2+ peripheral pulses with no evidence of peripheral edema and no calf tenderness noted. NEUROLOGIC EXAMINATION: Patient is awake, alert and oriented x3. Results CBC & Chem 7: 09/12/19 16:47 09/12/19 16:47 Labs: Abnormal Lab Results - Last 24 Hours (Table) 09/12/19 09/12/19 09/13/19 Range/Units 16:47 16:47 04:51 WBC 14.2 H (3.8-10.6) k/uL MCV 100.2 H D (80.0-100.0) fL Neutrophils # 11.7 H (1.3-7.7) k/uL PT (9.0-12.0) sec INR (<1.2) Sodium 136 L (137-145) mmol/L BUN 6 L (9-20) mg/dL Creatinine 0.43 L (0.66-1.25) mg/dL HDL Cholesterol 91 H (40-60) mg/dL 09/13/19 Range/Units 09:27 WBC (3.8-10.6) k/uL MCV (80.0-100.0) fL Neutrophils # (1.3-7.7) k/uL PT 30.3 H (9.0-12.0) sec INR 3.1 H (<1.2) Sodium (137-145) mmol/L BUN (9-20) mg/dL Creatinine (0.66-1.25) mg/dL HDL Cholesterol (40-60) mg/dL Thrombosis Risk Factor Assmnt - Choose All That Apply Any of the Below Risk Factors Present?: Yes Each Factor Represents 1 point: Abnormal pulmonary function (COPD) Each Risk Factor Represents 3 Points: History of DVT/PE Thrombosis Risk Factor Assessment Total Risk Factor Score: 4 Thrombosis Risk Factor Assessment Level: Moderate Risk Assessment and Plan Assessment: 1. Chest pain rule out acute coronary syndrome - Patient will be admitted to telemetry; he has been started on aspirin and atorvastatin for secondary prevention; cardiology recommending dobutamine stress echo; further recommendations after echocardiogram is done 2. Dyspnea/acute exacerbation COPD - Patient is started on Solu-Medrol 60 mg IV every 6 hours; DuoNeb nebulizer treatments every 4 hours and when necessary; we will add Pulmicort nebulizer twice a day; continue with Symbicort inhaler and Singulair 10 mg by mouth daily at bedtime; pulmonary is consulted and recommendations are pending 3. History of saddle PE; continue with home dose of Coumadin; we will consult pharmacy for dosing; monitor daily PT/INR 4. Hypertension; continue with home dose of Norvasc 10 mg daily DVT prophylaxis; systemic anticoagulation with Coumadin CODE STATUS; full code Time with Patient: Greater than 30
[2019-09-13] MEDS ORDERED: ALPRAZolam 0.25 MG TAB PO STA (14:14)
[2019-09-13] MEDS: GABAPENTIN 400 MG CAP PO SCH ×2 (16:04→20:41)
[2019-09-13] MEDS: methylPREDNISolone SOD SUCCI 125 MG/2 ML VIAL IV SCH ×2 (17:39→23:31)
[2019-09-13] MEDS ORDERED: WARFARIN 2.5 MG TAB PO SCH (18:00)
[2019-09-13] MEDS: SYMBICORT 160-4.5 MCG INHALER INHALATION SCH (19:11)
[2019-09-13] MEDS: MELATONIN 5 MG TABLET PO SCH (20:41)
[2019-09-13] MEDS: MONTELUKAST 10 MG TAB PO SCH (20:41)
[2019-09-13] MEDS ORDERED: BENZOCAINE/MENTHOL LOZENG 1 EACH LOZENGE MUCOUS MEM PRN (22:16)
[2019-09-14] MEDS: IPRATROPIUM-ALBUTEROL 3 ML NEB INHALATION PRN ×4 (02:18→19:59)
[2019-09-14] MEDS: methylPREDNISolone SOD SUCCI 125 MG/2 ML VIAL IV SCH ×4 (05:43→23:02)
[2019-09-14] MEDS: HYDROcodone/APAP 5-325MG 1 EACH TAB PO PRN ×3 (05:43→22:15)
[2019-09-14 06:55] LABS: Glucose,Whole Blood 136 mg/dL (75-99)
[2019-09-14 07:04] LABS: Basophils # (A) 0.1 k/uL (0-0.2); Basophils % (A) 0 %; Eosinophils % (A) 0 %; HCT 41.5 % (39.0-53.0); HGB 13.7 gm/dL (13.0-17.5); Lymphocytes # (A) 0.2 k/uL (1.0-4.8); Lymphocytes % (A) 1 %; MCH 33.6 pg (25.0-35.0); MCHC 32.9 g/dL (31.0-37.0); Macrocytosis Slight; Mean Platelet Volume 6.9; Monocytes # (A) 0.5 k/uL (0-1.0); Monocytes % (A) 3 %; Neutrophils # (A) 16.1 k/uL (1.3-7.7); Neutrophils % (A) 95 %; Platelet Count 321 k/uL (150-450); RBC 4.07 m/uL (4.30-5.90); RDW 13.1 % (11.5-15.5)
[2019-09-14 07:11] LABS: Prothrombin Time 28.8 sec (9.0-12.0)
[2019-09-14 07:20] LABS: African American GFR (CKD) >90 (>60 ml/min/1.73 sqM); Anion Gap 4 mmol/L; Blood Urea Nitrogen 20 mg/dL (9-20); Calcium 9.1 mg/dL (8.4-10.2); Carbon Dioxide 30 mmol/L (22-30); Chloride 102 mmol/L (98-107); Glucose 120 mg/dL (74-99); Non-African American GFR(CKD) >90 (>60 ml/min/1.73 sqM); Potassium 4.4 mmol/L (3.5-5.1); Sodium 136 mmol/L (137-145)
[2019-09-14] MEDS: SYMBICORT 160-4.5 MCG INHALER INHALATION SCH ×2 (08:05→19:59)
[2019-09-14] MEDS: INSULIN ASPART (NovoLOG) 100 UNIT/ML VIAL SQ SCH ×4 (08:48→21:12)
[2019-09-14] MEDS: ESCITALOPRAM 10 MG TAB PO SCH (10:11)
[2019-09-14] MEDS: ATORVASTATIN 10 MG TAB PO SCH (10:11)
[2019-09-14] MEDS: amLODIPine 10 MG TAB PO SCH (10:11)
[2019-09-14] MEDS: GABAPENTIN 400 MG CAP PO SCH ×3 (10:11→21:12)
[2019-09-14] MEDS: DOXYCYCLINE 100 MG in SODIUM CHLORIDE 0.9% 100 ML IVPB SCH ×2 (10:11→21:11)
[2019-09-14] MEDS: ASPIRIN 81 MG PO SCH (10:12)
[2019-09-14] MEDS ORDERED: DOBUTamine DRIP for NUC MED 500 MG in DEXTROSE/WATER 1 250ML.BAG IV ONE (10:46)
[2019-09-14 11:30] LABS: Glucose,Whole Blood 129 mg/dL (75-99)
--- NOTE | 2019-09-14 13:14 | P.STRESS ---
- Stress Test Note Stress Test Results/Findings: Exam Performed: dobutamine stress echo with con Exam Date: 09/14/19 Reason for Exam: CHEST PAIN Height: 5 ft 6 in Weight: 70.76 kg Protocol: DSE Stage: 3 Duration of Exercise: 8:30 Resting Heart Rate: 79 Resting Blood Pressure: 126/77 Maximum Achieved Heart Rate: 156 Maximum Achieved Blood Pressure: 193/73 85% PMHR: 138 100% PMHR: 162 METS: NA Technologist Comment: Stress Test Results/Findings: This is a 59-year-old gentleman with history of hypertension, CVA, hypercholesterolemia, being evaluated for symptoms of chest pain and shortness of breath. Stress data: Baseline EKG showed sinus rhythm with normal DC interval and QRS duration. Blood pressure at rest is 126/77 with pulse rate of 79. A standard dose of dobutamine was initiated and titrated to 30 mics, achieving a maximum heart rate of 156 with a blood pressure 1 7465. EKGs taken during and after the exercise with a dobutamine did not reveal any change of ischemia. Patient had 50 episodes of SVT self terminating. Echo data Jareth Baseline echo images showed normal wall motion and thickening. Exercise stress echo images at low dose and high dose of dobutamine showed progressive augmentation of wall motion and thickening. Final impression #1. Negative dobutamine stress test #2. Negative dobutamine stress echo.
--- NOTE | 2019-09-14 13:49 | P.PN ---
Subjective This is a pleasant 53 years old male with past medical history of COPD, right upper lobe pulmonary infiltrates with cavitary lesion, deep venous thrombosis and saddle pulmonary embolism on Coumadin alternating 2.5 and 5 mg, chronic hypoxic respiratory failure on 2 L oxygen, chronic left shoulder pain , right eye blindness, shingles, CVA with residual right hemiparesis. Presents because of chest pain of 2 days duration, central, nonradiating moderate to severe, with little improvement since yesterday associated with a dry cough, mild tachypnea. Also patient sees Dr. Rodriguez in the office about one week ago and he referred him to repeat CAT scan of the chest and ultrasound of the lower extremity for follow-up. She supposed to get it today on 09/14/2019. Patient has been evaluated by harness builder and his he underwent stress test which is pending the results. Vitas looks stable. Labs mild leukocytosis. INR is 3.0, creatinine is normal. Sugar is controlled Objective - Vital Signs Vital signs: Vital Signs Temp 97.7 F 09/14/19 11:39 Pulse 68 09/14/19 11:56 Resp 19 09/14/19 11:56 BP 121/68 09/14/19 11:39 Pulse Ox 95 09/14/19 11:39 Intake & Output 09/13/19 09/14/19 09/14/19 18:59 06:59 18:59 Intake Total 680 Balance 680 Weight 70.76 kg 70.76 kg Intake: Oral 480 Other 200 Other: Voiding Method Toilet Toilet Diaper Diaper Incontinent Incontinent # Voids 2 1 - Exam GENERAL: The patient is alert and oriented x3, not in any acute distress. Well developed, well nourished. HEENT: Pupils are round and equally reacting to light. EOMI. No scleral icterus. No conjunctival pallor. Normocephalic, atraumatic. No pharyngeal erythema. No thyromegaly. Right eye blindness CARDIOVASCULAR: S1 and S2 present. No murmurs, rubs, or gallops. -PULMONARY: Chest is clear to auscultation, mild exp wheezing. no crackles. ABDOMEN: Soft, nontender, nondistended, normoactive bowel sounds. No palpable organomegaly. MUSCULOSKELETAL: No joint swelling or deformity. EXTREMITIES: No cyanosis, clubbing, or pedal edema. NEUROLOGICAL: Gross neurological examination did not reveal any focal deficits. SKIN: No rashes. no petechiae. - Labs CBC & Chem 7: 09/14/19 05:31 09/14/19 05:31 Labs: Abnormal Lab Results - Last 24 Hours (Table) 09/14/19 09/14/19 09/14/19 Range/Units 05:31 05:31 05:31 WBC 17.0 H (3.8-10.6) k/uL RBC 4.07 L (4.30-5.90) m/uL MCV 102.0 H (80.0-100.0) fL Neutrophils # 16.1 H (1.3-7.7) k/uL Lymphocytes # 0.2 L (1.0-4.8) k/uL PT 28.8 H (9.0-12.0) sec INR 3.0 H (<1.2) Sodium 136 L (137-145) mmol/L Creatinine 0.53 L (0.66-1.25) mg/dL Glucose 120 H (74-99) mg/dL POC Glucose (mg/dL) (75-99) mg/dL 09/14/19 09/14/19 Range/Units 06:54 11:29 WBC (3.8-10.6) k/uL RBC (4.30-5.90) m/uL MCV (80.0-100.0) fL Neutrophils # (1.3-7.7) k/uL Lymphocytes # (1.0-4.8) k/uL PT (9.0-12.0) sec INR (<1.2) Sodium (137-145) mmol/L Creatinine (0.66-1.25) mg/dL Glucose (74-99) mg/dL POC Glucose (mg/dL) 136 H 129 H (75-99) mg/dL Assessment and Plan Assessment: Chest pain, rule out cardiac causes History of saddle pulmonary embolism and DVT, going for CT of the chest and ultrasound of the lower extremity per hematology service COPD Right eye blindness Left shoulder pain and tenderness needing a sling History of Right upper lobe pulmonary infiltrates with cavitary lesion, stable lesion on the chest x-ray History of Shingles Chronic hypoxic respiratory failure Plan: This is a pleasant 59 years old male who presents with COPD, and chest pain. He also has history of PE on Coumadin. His INR is therapeutic. Follow-up results of stress test. Patient states that he follows with [facility] as an outpatient and he like to see pulmonary service which were consulted. Also he follows up with Dr. Burns from hematology team and as per patient is supposed to get a CAT scan of the chest and ultrasound of the lower extremity for follow-up. Labs and medication were reviewed.. Continue same treatment. Continue with symptomatic treatment. Resume home medication. Monitor lytes and vitals. DVT and GI prophylaxis. Further recommendations of the clinical course of the patient DVT prophylaxis: On Coumadin GI Prophylaxis: Pepcid Prognosis is guarded
[2019-09-14 16:49] LABS: Glucose,Whole Blood 181 mg/dL (75-99)
[2019-09-14] MEDS ORDERED: WARFARIN 5 MG TAB PO SCH (18:00)
[2019-09-14] MEDS ORDERED: WARFARIN 2.5 MG TAB PO ONE (18:00)
[2019-09-14] MEDS: guaiFENesin-DM 100-10MG/5ML 10 ML CUP PO PRN (18:13)
--- NOTE | 2019-09-14 18:42 | P.CNPUL ---
History of Present Illness Consult date: 09/14/19 Requesting physician: David Chavez Reason for consult: dyspnea Chief complaint: Chest pain, shortness of breath History of present illness: This is a very pleasant 59-year-old gentleman follows in our office for chronic obstructive pulmonary disease. He has chronic and ongoing tobacco dependence, marijuana use. He also has a history of a right upper lobe fungal pneumonia treated with Sporanox and Augmentin. Most recent chest x-ray shows near complete resolution. 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 He presented here to the emergency room with complaints of chest discomfort, shortness of breath. He had undergone dobutamine stress echocardiogram that was negative for ischemia. He continued having issues with shortness of breath and we're consulted for the same. He is seen today and consult in the observation unit. He is awake and alert in no acute distress. Rectal maintaining O2 saturations in the 90s on 3 L/m per nasal cannula. He is afebrile. Chest x-ray continues to show infiltrate in the right upper lobe. No change compared to previous on 07/19/2019. No new evidence of any pulmonary infiltrate. White count 17.0. Hemoglobin 13.7. INR 3.0. Sodium 136. Potas sium 4.4. Creatinine 0.5. He is currently on DuoNeb inhalations, Symbicort, Singulair, IV Solu-Medrol. Review of Systems REVIEW OF SYSTEMS: CONSTITUTIONAL: Denies any recent significant weight loss or weight gain. EYES: Denies change in vision. EARS, NOSE, MOUTH, THROAT: Denies headaches, denies sore throat. CARDIOVASCULAR: Positive for chest pain, palpitations no syncopal episodes. RESPIRATORY: Positive for shortness of breath, cough, congestion no hemoptysis. GASTROINTESTINAL: Denies change in appetite, denies abdominal pain GENITOURINARY: Denies hematuria, denies infections. MUSKULOSKELETAL: Denies pain, denies swelling. INTEGUMENTARY: Denies rash, denies eczema. NEUROLOGICAL: Denies recent memory loss, no recent seizure activity. PSYCHIATRIC: Denies anxiety, denies depression. HEMATOLOGIC/LYMPHATIC: Denies anemia, denies enlarged lymph nodes. 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 Last Myocardial Infarction Date:: unknown History of Any Multi-Drug Resistant Organisms: None Reported Past Surgical History: Orthopedic Surgery Additional Past Surgical History / Comment(s): metal plate left hand middle finger, right eye enucleation. Past Anesthesia/Blood Transfusion Reactions: No Reported Reaction Past Psychological History: Anxiety, Depression, Panic Disorder Additional Psychological History / Comment(s): Lives in apartment, 17 steps to climb.Has a nebulizer/oxygen. 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 - Past Family History Mother Family Medical History: Cancer Additional Family Medical History / Comment(s): Pt believes his Mom of Kidney Cancer Father Family Medical History: Cancer, COPD, Respiratory Disorder Additional Family Medical History / Comment(s): Melanoma Medications and Allergies Home Medications Medication Instructions Recorded Confirmed Type Montelukast [Singulair] 10 mg PO HS #30 tab 11/17/18 09/12/19 Rx Fluticasone/Salmeterol 1 puff INHALATION RT-BID 04/29/19 09/12/19 History [Fluticasone-Salmeterol 232-14] amLODIPine [Norvasc] 10 mg PO DAILY 04/29/19 09/12/19 History Albuterol Inhaler [Ventolin Hfa 1 - 2 puff INHALATION RT-Q6H PRN 05/11/19 09/12/19 History Inhaler] Escitalopram [Lexapro] 10 mg PO DAILY #15 tab 05/15/19 09/12/19 Rx Nicotine 14Mg/24Hr Patch [Habitrol] 1 patch TRANSDERM DAILY 06/04/19 09/12/19 History Ipratropium-Albuterol Nebulize 3 ml INHALATION RT-QID 06/13/19 09/12/19 History [Duoneb 0.5 mg-3 mg/3 ml Soln] Gabapentin [Neurontin] 800 mg PO TID #12 tab 07/21/19 09/12/19 Rx Melatonin 10 mg PO HS 08/12/19 09/12/19 History Warfarin [Coumadin] 2.5 mg PO Q48H 08/12/19 09/12/19 History Warfarin Sodium [Coumadin] 5 mg PO Q48H 09/12/19 09/12/19 History Allergies Allergy/AdvReac Type Severity Reaction Status Date / Time tree nut [Nut] Allergy Unknown Dyspnea, Verified 09/12/19 19:31 Rash/Hives peanut [Peanut Butter] AdvReac Dyspnea, Verified 09/12/19 19:31 Rash/Hives Physical Exam Vitals: Vital Signs Temp Pulse Pulse Resp BP Pulse Ox 09/14/19 16:00 98.1 F 65 19 99/55 96 09/14/19 15:34 88 09/14/19 15:27 97 09/14/19 15:22 90 09/14/19 11:56 68 19 09/14/19 11:39 97.7 F 68 19 121/68 95 09/14/19 08:22 88 09/14/19 08:09 88 09/14/19 08:00 98 F 74 19 144/81 97 09/14/19 04:00 97.9 F 86 18 115/63 95 09/14/19 02:29 89 09/14/19 02:18 87 09/14/19 00:00 97.6 F 84 18 129/76 96 09/13/19 20:00 97.4 F L 94 18 120/68 97 09/13/19 19:31 88 09/13/19 19:11 88 Intake and Output 09/14/19 09/14/1920 06:59 14:59 22:59 Other: Voiding Method Toilet Toilet Toilet Diaper Diaper Diaper Incontinent Incontinent Incontinent # Voids 2 1 Weight 70.76 kg GENERAL EXAM: Alert, pleasant, 59-year-old male patient, on 3 L of oxygen with a pulse ox of 97% comfortable in no apparent distress. HEAD: Normocephalic/atraumatic. EYES: Normal reaction of pupils, equal size in the left eye, patient has a prosthetic right eye. Conjunctiva pink, sclera white. NOSE: Clear with pink turbinates. THROAT: No erythema or exudates. NECK: No masses, no JVD, no thyroid enlargement, no adenopathy. CHEST: No chest wall deformity. Symmetrical expansion. LUNGS: Equal air entry with end expiratory wheeze, diminished CVS: Regular rate and rhythm, normal S1 and S2, no gallops, no murmurs, no rubs ABDOMEN: Soft, nontender. No hepatosplenomegaly, normal bowel sounds, no guarding or rigidity. EXTREMITIES: No clubbing, no edema, no cyanosis, 2+ pulses and upper and lower extremities. Left arm is in a sling MUSCULOSKELETAL: Muscle strength and tone normal. SPINE: No scoliosis or deformity. SKIN: No rashes no wounds CENTRAL NERVOUS SYSTEM: No focal deficits, tone is normal in all 4 extremities. PSYCHIATRIC: Alert and oriented -3. Appropriate affect. Intact judgment and insight. Results - Laboratory Findings CBC and BMP: 09/14/19 05:31 09/14/19 05:31 PT/INR, D-dimer PT 28.8 sec (9.0-12.0) H 09/14/19 05:31 INR 3.0 (<1.2) H 09/14/19 05:31 Abnormal lab findings: Abnormal Labs 09/12/19 09/12/19 09/13/19 16:47 16:47 04:51 WBC 14.2 H RBC MCV 100.2 H D Neutrophils # 11.7 H Lymphocytes # PT INR Sodium 136 L BUN 6 L Creatinine 0.43 L Glucose POC Glucose (mg/dL) HDL Cholesterol 91 H 09/13/19 09/14/19 09/14/19 09:27 05:31 05:31 WBC 17.0 H RBC 4.07 L MCV 102.0 H Neutrophils # 16.1 H Lymphocytes # 0.2 L PT 30.3 H INR 3.1 H Sodium 136 L BUN Creatinine 0.53 L Glucose 120 H POC Glucose (mg/dL) HDL Cholesterol 09/14/19 09/14/19 09/14/19 05:31 06:54 11:29 WBC RBC MCV Neutrophils # Lymphocytes # PT 28.8 H INR 3.0 H Sodium BUN Creatinine Glucose POC Glucose (mg/dL) 136 H 129 H HDL Cholesterol 09/14/19 16:47 WBC RBC MCV Neutrophils # Lymphocytes # PT INR Sodium BUN Creatinine Glucose POC Glucose (mg/dL) 181 H HDL Cholesterol - Diagnostic Findings Chest x-ray: image reviewed Assessment and Plan Assessment: 1 Atypical chest pain in a patient found to have a negative dobutamine stress echocardiogram. No evidence of ischemia. 2 Acute exacerbation of severe oxygen dependent chronic obstructive pulmonary disease, FEV1 value 36% of predicted 3 Chronic tobacco dependence 4 Recent right upper lobe fungal infection treated with Sporanox and Augmentin, and near complete resolution on chest x-ray. No worse since 07/19/2019. 5 History of PE/DVT, anticoagulated with warfarin, INR 3.0. 6 History of CVA involving the basal ganglia October 7 Shingles affecting the right eye status post enucleation 8 Diabetes mellitus, type II 9 GERD 10 History of coronary disease with previous myocardial infarction 11 Avascular necrosis left humeral head followed by orthopedic services in pain clinic Plan: The patient was seen and evaluated by Dr. Garcia. Chest x-ray and labs reviewed. We'll continue with his current treatment plan for his COPD exacerbation. No clear evidence of pneumonia. Empiric antibiotic in the form of doxycycline. Right upper lobe fungal infection cleared. He is again educated regarding the importance of complete smoking cessation. Probable home in the morning. We'll continue to follow and make further recommendations based on his clinical status. I, the cosigning physician, performed a history & physical examination of the patient. Lungs sounds end expiratory wheeze, diminished. Maintaining good O2 saturations in the 90s on 3 L/m per nasal cannula. I discussed the assessment and plan of care with my nurse practitioner, Crissy Bland. I attest to the above note as dictated by her. Time with Patient: Greater than 30
[2019-09-14 19:57] LABS: Glucose,Whole Blood 172 mg/dL (75-99)
[2019-09-14] MEDS: FAMOTIDINE 20 MG/2 ML VIAL IV SCH (21:11)
[2019-09-14] MEDS: MONTELUKAST 10 MG TAB PO SCH (21:12)
[2019-09-14] MEDS: MELATONIN 5 MG TABLET PO SCH (21:12)
[2019-09-15] MEDS: IPRATROPIUM-ALBUTEROL 3 ML NEB INHALATION PRN ×6 (01:11→21:27)
[2019-09-15] MEDS: HYDROcodone/APAP 5-325MG 1 EACH TAB PO PRN ×2 (05:01→16:45)
[2019-09-15] MEDS: methylPREDNISolone SOD SUCCI 125 MG/2 ML VIAL IV SCH ×2 (05:02→12:14)
[2019-09-15 06:36] LABS: Glucose,Whole Blood 139 mg/dL (75-99)
[2019-09-15] MEDS: SYMBICORT 160-4.5 MCG INHALER INHALATION SCH ×2 (07:16→21:28)
[2019-09-15 07:26] LABS: INR 4.3 (<1.2); Prothrombin Time 42.1 sec (9.0-12.0)
[2019-09-15] MEDS: ESCITALOPRAM 10 MG TAB PO SCH (07:37)
[2019-09-15] MEDS: FAMOTIDINE 20 MG/2 ML VIAL IV SCH (07:37)
[2019-09-15] MEDS: GABAPENTIN 400 MG CAP PO SCH ×3 (07:37→20:35)
[2019-09-15] MEDS: amLODIPine 10 MG TAB PO SCH (07:38)
[2019-09-15] MEDS: ASPIRIN 81 MG PO SCH (07:38)
[2019-09-15] MEDS: INSULIN ASPART (NovoLOG) 100 UNIT/ML VIAL SQ SCH ×4 (07:38→20:34)
[2019-09-15] MEDS: ATORVASTATIN 10 MG TAB PO SCH (07:38)
[2019-09-15] MEDS: DOXYCYCLINE 100 MG in SODIUM CHLORIDE 0.9% 100 ML IVPB SCH ×2 (08:00→20:34)
--- NOTE | 2019-09-15 09:52 | P.PN ---
Subjective Progress Note Date: 09/15/19 Principal diagnosis: Acute COPD exacerbation, chest pain On 09/15/2019 patient seen in follow-up in the observation unit, he is resting in bed, he states his breathing is about the same, still coughing, but not bringing up much sputum, remains on doxycycline, IV steroids and nebulized bronchodilators, lung sounds are diminished and scattered expiratory wheezes. Patient had a dobutamine stress echo which was negative. 3 sets of cardiac troponins were negative. Objective - Vital Signs Vital signs: Vital Signs Temp 97.5 F L 09/15/19 07:12 Pulse 85 09/15/19 08:00 Resp 18 09/15/19 08:00 BP 138/80 09/15/19 07:12 Pulse Ox 98 09/15/19 07:12 Intake & Output 09/14/19 09/15/19 09/15/19 18:59 06:59 18:59 Intake Total 888 240 Balance 888 240 Weight 70.76 kg Intake: Oral 888 240 Other: Voiding Method Toilet Toilet Toilet Diaper Diaper Diaper Incontinent Incontinent Incontinent # Voids 1 1 - Exam GENERAL EXAM: Alert, 59-year-old white male in 2 L of oxygen and the pulse ox of 98%, comfortable in no apparent distress. HEAD: Normocephalic/atraumatic. EYES: Normal reaction of pupils, equal size. Patient has a prosthetic right eye Conjunctiva pink, sclera white. NOSE: Clear with pink turbinates. THROAT: No erythema or exudates. NECK: No masses, no JVD, no thyroid enlargement, no adenopathy. CHEST: No chest wall deformity. Symmetrical expansion. LUNGS: Equal air entry with scattered wheezes, and a few rhonchi, but good air entry noted bilaterally CVS: Regular rate and rhythm, normal S1 and S2, no gallops, no murmurs, no rubs ABDOMEN: Soft, nontender. No hepatosplenomegaly, normal bowel sounds, no guarding or rigidity. EXTREMITIES: No clubbing, no edema, no cyanosis, 2+ pulses and upper and lower extremities. MUSCULOSKELETAL: Muscle strength and tone normal. SPINE: No scoliosis or deformity SKIN: No rashes CENTRAL NERVOUS SYSTEM: Alert and oriented -3. No focal deficits, tone is normal in all 4 extremities. PSYCHIATRIC: Alert and oriented -3. Appropriate affect. Intact judgment and insight. - Labs CBC & Chem 7: 09/14/19 05:31 09/14/19 05:31 Labs: Abnormal Lab Results - Last 24 Hours (Table) 09/14/19 09/14/19 09/14/19 Range/Units 11:29 16:47 19:54 PT (9.0-12.0) sec INR (<1.2) POC Glucose (mg/dL) 129 H 181 H 172 H (75-99) mg/dL 09/15/19 09/15/19 Range/Units 06:33 07:04 PT 42.1 H (9.0-12.0) sec INR 4.3 H (<1.2) POC Glucose (mg/dL) 139 H (75-99) mg/dL Assessment and Plan Plan: Assessment: 1 Atypical chest pain in a patient found to have a negative dobutamine stress echocardiogram. No evidence of ischemia. 2 Acute exacerbation of severe oxygen dependent chronic obstructive pulmonary disease, FEV1 value 36% of predicted 3 Chronic tobacco dependence 4 Recent right upper lobe fungal infection treated with Sporanox and Augmentin, and near complete resolution on chest x-ray. No worse since 07/19/2019. 5 History of PE/DVT, anticoagulated with warfarin, INR 3.0. 6 History of CVA involving the basal ganglia October 7 Shingles affecting the right eye status post enucleation 8 Diabetes mellitus, type II 9 GERD 10 History of coronary disease with previous myocardial infarction 11 Avascular necrosis left humeral head followed by orthopedic services in pain clinic Plan: Continue current medical treatment, IV steroids, nebulized bronchodilators empiric antibiotics, send a sputum for culture, increase activity as tolerated, vital signs are stable, patient is maintaining stable oxygenation on 2 L, encourage deep breathing and coughing, from pulmonary perspective patient could be considered for discharge home today or tomorrow I performed a history & physical examination of the patient and discussed their management with my nurse practitioner, Jeane Hwang. I reviewed the nurse practitioner's note and agree with the documented findings and plan of care. Lung sounds are positive for diffuse wheezes throughout the lung brown. The findings and the impression was discussed with the patient. I attest to the documentation by the nurse practitioner. Time with Patient: Less than 30
--- NOTE | 2019-09-15 10:51 | CDI ---
Documentation Clarification Form Date: 09/15/2019 10:24:52 AM From: Kaye Branch RN, CCDS Phone: [phone] Admit Date: 09/15/2019 08:32:00 AM Patient Name: Junior Mallory Visit Number: [id number] Discharge Date: ATTENTION: The Clinical Documentation Specialists (CDI) and [facility] Coding Staff appreciate your assistance in clarifying documentation. Please respond to the clarification below the line at the bottom and electronically sign. The CDI & [facility] Coding staff will review the response and follow-up if needed. Please note: Queries are made part of the Legal Health Record. If you have any questions, please contact the author of this message via ITS. Dr. Hernandez E Sheet Documentation of COPD is located in your progress note on 09/14/19 and further specificity of the diagnosis is indicated. History/Risk Factors: COPD, Chronic hypoxic respiratory failure, Right upper lobe consolidation thought to be fungal/+ asperigillus fumigatus Current same day smoker, Marijuana use Home O2 2/L /NC ATC, Clinical Indicators: 59-year-old male presented on 09/12/19 for complaints of chest pain and shortness of breath. 09/13/19 H/P by Dr. Campbell admitted the patient for acute exacerbation of COPD and further evaluation of his chest pain. He was placed in an observation status. 09/15/19 at 08:11 change to impatient with continued treatment for COPD. Lung and Respiratory Assessment: (09/14/19 In your assessment) In your assessment chest is clear to auscultation, mild expiratory wheezing no crackles Treatment: Nebulizers; Albuterol/Iprotropium 3ml Inhalation Q4H PRN Solu-Medrol 60 mg IV Q 6HR Singular 10 mg PO HS O2 @ 2_liters/NC Doxycycline Hyclate 100mg IVPB Q 12HR In your professional opinion, can you please further clarify if the COPD that you have documented and are treating is any of the following? Acute Exacerbation of Chronic Obstructive Pulmonary Disease Other condition, please specify Unable to determine (Last Revision: May 2017) Unable to determine MTDD
[2019-09-15 11:38] LABS: Glucose,Whole Blood 165 mg/dL (75-99)
--- NOTE | 2019-09-15 13:20 | ECHOS ---
Stress Test Results/Findings: Exam Performed: dobutamine stress echo with con Exam Date: 09/14/19 Reason for Exam: CHEST PAIN Height: 5 ft 6 in Weight: 70.76 kg Protocol: DSE Stage: 3 Duration of Exercise: 8:30 Resting Heart Rate: 79 Resting Blood Pressure: 126/77 Maximum Achieved Heart Rate: 156 Maximum Achieved Blood Pressure: 193/73 85% PMHR: 138 100% PMHR: 162 METS: NA Technologist Comment: Stress Test Results/Findings: This is a 59-year-old gentleman with history of hypertension, CVA, hypercholesterolemia, being evaluated for symptoms of chest pain and shortness of breath. Stress data: Baseline EKG showed sinus rhythm with normal RI interval and QRS duration. Blood pressure at rest is 126/77 with pulse rate of 79. A standard dose of dobutamine was initiated and titrated to 30 mics, achieving a maximum heart rate of 156 with a blood pressure 1 7465. EKGs taken during and after the exercise with a dobutamine did not reveal any change of ischemia. Patient had 50 episodes of SVT self terminating. Echo data Jareth Baseline echo images showed normal wall motion and thickening. Exercise stress echo images at low dose and high dose of dobutamine showed progressive augmentation of wall motion and thickening. Final impression #1. Negative dobutamine stress test #2. Negative dobutamine stress echo. [facility]
--- NOTE | 2019-09-15 16:25 | PN ---
PROGRESS NOTE DATE OF SERVICE: 09/15/2019 This 59-year-old gentleman who was admitted with COPD, acute exacerbation, is complaining of significant chest congestion. The patient also had chest pain; myocardial infarction ruled out. Cardiology and Pulmonology are following the patient closely. A stress EKG was also noted. A stress test was done yesterday which showed no evidence of any ischemia; dobutamine stress echo, which was negative. PHYSICAL EXAMINATION: Alert and oriented x3. Pulse 93, blood pressure 138/80, respiration 18, temperature 97.4, pulse ox 98% on 3 L. HEENT: Conjunctivae normal. NECK: No jugular venous distention. CARDIOVASCULAR SYSTEM: S1, S2 muffled. RESPIRATORY SYSTEM: Breath sounds diminished at the bases. A few scattered rhonchi and crackles. ABDOMEN: Soft, non-tender. LEGS: No edema. No swelling. NERVOUS SYSTEM: No focal deficit. LABS: WBC 17 and INR is 4.3. ASSESSMENT: 1. Chest pain; myocardial infarction ruled out; possibly musculoskeletal. 2. Chronic obstructive pulmonary disease, acute exacerbation. 3. History of saddle pulmonary embolism and deep venous thrombosis. 4. Right eye blindness. 5. Left shoulder pain and degenerative joint disease. 6. History of right upper lobe pulmonary infiltrates with cavitary lesion. 7. History of shingles. 8. Chronic hypoxic respiratory failure. 9. Coumadin coagulopathy. RECOMMENDATIONS AND DISCUSSION: I recommend to continue current medications, continue with the monitoring, symptomatic treatment. Closely follow. Will continue to monitor. Will hold the Coumadin today. Otherwise, will cut down the steroids to 40 mg IV q.8. I would also recommend repeat labs in the morning. Monitor PT, INR closely. Otherwise, overall prognosis is guarded because of multiple complex medical issues. Further recommendations to follow. The patient might be able to be discharged home possibly within the next 24 hours if stable. MMODL / IJN: [id number] /
[2019-09-15 16:38] LABS: Glucose,Whole Blood 125 mg/dL (75-99)
[2019-09-15] MEDS: methylPREDNISolone SOD SUCCI 40 MG/ML 1 ML VIAL IV SCH ×2 (16:45→23:27)
[2019-09-15] MEDS ORDERED: WARFARIN 0.5 MG TAB PO ONE (18:00)
[2019-09-15 20:15] LABS: Glucose,Whole Blood 151 mg/dL (75-99)
[2019-09-15] MEDS: MELATONIN 5 MG TABLET PO SCH (20:35)
[2019-09-15] MEDS: FAMOTIDINE 20 MG TAB PO SCH (20:35)
[2019-09-15] MEDS: ALPRAZolam 0.25 MG TAB PO PRN (20:44)
[2019-09-15] MEDS: MONTELUKAST 10 MG TAB PO SCH (20:44)
[2019-09-15] MEDS: guaiFENesin-DM 100-10MG/5ML 10 ML CUP PO PRN (20:44)
[2019-09-16] MEDS: IPRATROPIUM-ALBUTEROL 3 ML NEB INHALATION PRN ×5 (03:11→20:29)
[2019-09-16] MEDS: HYDROcodone/APAP 5-325MG 1 EACH TAB PO PRN ×3 (03:47→20:21)
[2019-09-16 06:11] LABS: Basophils # (A) 0.2 k/uL (0-0.2); Basophils % (A) 1 %; Eosinophils # (A) 0.1 k/uL (0-0.7); Eosinophils % (A) 1 %; HCT 41.7 % (39.0-53.0); HGB 13.4 gm/dL (13.0-17.5); Lymphocytes # (A) 0.1 k/uL (1.0-4.8); Lymphocytes % (A) 1 %; MCH 32.5 pg (25.0-35.0); MCHC 32.1 g/dL (31.0-37.0); MCV 101.1 fL (80.0-100.0); Mean Platelet Volume 6.6; Monocytes # (A) 0.5 k/uL (0-1.0); Monocytes % (A) 3 %; Neutrophils # (A) 13.3 k/uL (1.3-7.7); Neutrophils % (A) 94 %; Platelet Count 301 k/uL (150-450); RBC 4.12 m/uL (4.30-5.90); WBC 14.1 k/uL (3.8-10.6)
[2019-09-16 06:19] LABS: African American GFR (CKD) >90 (>60 ml/min/1.73 sqM); Anion Gap 1 mmol/L; Blood Urea Nitrogen 25 mg/dL (9-20); Calcium 8.7 mg/dL (8.4-10.2); Carbon Dioxide 35 mmol/L (22-30); Chloride 100 mmol/L (98-107); Glucose 121 mg/dL (74-99); Non-African American GFR(CKD) >90 (>60 ml/min/1.73 sqM); Sodium 136 mmol/L (137-145)
[2019-09-16 06:21] LABS: INR 4.1 (<1.2); Prothrombin Time 40.7 sec (9.0-12.0)
[2019-09-16 06:42] LABS: Glucose,Whole Blood 125 mg/dL (75-99)
[2019-09-16 06:44] LABS: Potassium 4.1 mmol/L (3.5-5.1)
[2019-09-16] MEDS: SYMBICORT 160-4.5 MCG INHALER INHALATION SCH ×2 (08:03→20:29)
[2019-09-16] MEDS: INSULIN ASPART (NovoLOG) 100 UNIT/ML VIAL SQ SCH ×4 (09:08→20:58)
[2019-09-16] MEDS: GABAPENTIN 400 MG CAP PO SCH ×3 (09:26→20:21)
[2019-09-16] MEDS: DOXYCYCLINE 100 MG in SODIUM CHLORIDE 0.9% 100 ML IVPB SCH ×2 (09:26→20:22)
[2019-09-16] MEDS: ESCITALOPRAM 10 MG TAB PO SCH (09:26)
[2019-09-16] MEDS: methylPREDNISolone SOD SUCCI 40 MG/ML 1 ML VIAL IV SCH ×3 (09:26→23:44)
[2019-09-16] MEDS: ATORVASTATIN 10 MG TAB PO SCH (09:26)
[2019-09-16] MEDS: FAMOTIDINE 20 MG TAB PO SCH ×2 (09:26→20:21)
[2019-09-16] MEDS: amLODIPine 10 MG TAB PO SCH (09:26)
[2019-09-16] MEDS: ASPIRIN 81 MG PO SCH (09:26)
[2019-09-16 11:41] LABS: Glucose,Whole Blood 127 mg/dL (75-99)
--- NOTE | 2019-09-16 12:08 | P.PN ---
Subjective Progress Note Date: 09/16/19 Days evaluation of 09/16/2019, the patient is still struggling with his breathing. He gets short of breath with minimal amount of activity. He is oxygen dependent at 3 L per minute nasal cannula. He has a congested cough. Unable to bring up any sputum. He is on doxycycline. He is on IV Solu-Medrol. Is on DuoNeb nebulized treatments around the clock. PT/INR is elevated and based on that the Coumadin was placed on hold. He is essentially in bed most of the time due to his significant limitation in exercise capacity. No hemoptysis. No pleurisy. The cardiac workup came back negative including a dobutamine stress echo. He is free of any chest pain for now. Objective - Vital Signs Vital signs: Vital Signs Temp 97.8 F 09/16/19 07:15 Pulse 74 09/16/19 11:43 Resp 18 09/16/19 07:15 BP 157/90 09/16/19 07:15 Pulse Ox 97 09/16/19 07:15 Intake & Output 09/15/19 09/16/19 09/16/19 18:59 06:59 18:59 Intake Total 240 888 480 Balance 240 888 480 Intake: Oral 240 888 480 Other: Voiding Method Toilet Toilet Diaper Diaper Incontinent Incontinent # Voids 3 1 - Exam GENERAL EXAM: Alert, 59-year-old white male in 3 L of oxygen and the pulse ox of 98%, comfortable in no apparent distress. HEAD: Normocephalic/atraumatic. EYES: Normal reaction of pupils, equal size. Patient has a prosthetic right eye Conjunctiva pink, sclera white. NOSE: Clear with pink turbinates. THROAT: No erythema or exudates. NECK: No masses, no JVD, no thyroid enlargement, no adenopathy. CHEST: No chest wall deformity. Symmetrical expansion. LUNGS: Equal air entry with scattered wheezes, and a few rhonchi, but good air entry noted bilaterally CVS: Regular rate and rhythm, normal S1 and S2, no gallops, no murmurs, no rubs ABDOMEN: Soft, nontender. No hepatosplenomegaly, normal bowel sounds, no guarding or rigidity. EXTREMITIES: No clubbing, no edema, no cyanosis, 2+ pulses and upper and lower extremities. MUSCULOSKELETAL: Muscle strength and tone normal. SPINE: No scoliosis or deformity SKIN: No rashes CENTRAL NERVOUS SYSTEM: Alert and oriented -3. No focal deficits, tone is normal in all 4 extremities. PSYCHIATRIC: Alert and oriented -3. Appropriate affect. Intact judgment and insight. - Labs CBC & Chem 7: 09/16/19 05:55 09/16/19 05:55 Labs: Abnormal Lab Results - Last 24 Hours (Table) 09/15/19 09/15/19 09/16/19 Range/Units 16:36 20:09 05:55 WBC (3.8-10.6) k/uL RBC (4.30-5.90) m/uL MCV (80.0-100.0) fL Neutrophils # (1.3-7.7) k/uL Lymphocytes # (1.0-4.8) k/uL PT 40.7 H (9.0-12.0) sec INR 4.1 H (<1.2) Sodium (137-145) mmol/L Carbon Dioxide (22-30) mmol/L BUN (9-20) mg/dL Creatinine (0.66-1.25) mg/dL Glucose (74-99) mg/dL POC Glucose (mg/dL) 125 H 151 H (75-99) mg/dL 09/16/19 09/16/19 09/16/19 Range/Units 05:55 05:55 06:40 WBC 14.1 H (3.8-10.6) k/uL RBC 4.12 L (4.30-5.90) m/uL MCV 101.1 H (80.0-100.0) fL Neutrophils # 13.3 H (1.3-7.7) k/uL Lymphocytes # 0.1 L (1.0-4.8) k/uL PT (9.0-12.0) sec INR (<1.2) Sodium 136 L (137-145) mmol/L Carbon Dioxide 35 H (22-30) mmol/L BUN 25 H (9-20) mg/dL Creatinine 0.53 L (0.66-1.25) mg/dL Glucose 121 H (74-99) mg/dL POC Glucose (mg/dL) 125 H (75-99) mg/dL 09/16/19 Range/Units 11:37 WBC (3.8-10.6) k/uL RBC (4.30-5.90) m/uL MCV (80.0-100.0) fL Neutrophils # (1.3-7.7) k/uL Lymphocytes # (1.0-4.8) k/uL PT (9.0-12.0) sec INR (<1.2) Sodium (137-145) mmol/L Carbon Dioxide (22-30) mmol/L BUN (9-20) mg/dL Creatinine (0.66-1.25) mg/dL Glucose (74-99) mg/dL POC Glucose (mg/dL) 127 H (75-99) mg/dL Assessment and Plan Plan: 1 Atypical chest pain in a patient found to have a negative dobutamine stress echocardiogram. No evidence of ischemia. 2 Acute exacerbation of severe oxygen dependent chronic obstructive pulmonary disease, FEV1 value 36% of predicted 3 Chronic tobacco dependence 4 Recent right upper lobe fungal infection treated with Sporanox and Augmentin, and near complete resolution on chest x-ray. No worse since 07/19/2019. 5 History of PE/DVT, anticoagulated with warfarin, INR 3.0. 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 He is having significant congestion and mucus which is trapped in his lungs which is unable to cough out. His response to the treatment has been slow and limited. His chest but hasn't worked up and it's negative for cardiac pain and is due to stress echo has been negative. Note that he had a air-fluid levels with a cavity in the right upper lobe that improved after the patient got treated with a combination of Sporanox and Augmentin. His chest x-ray is more clear in terms of his right upper lobe cavitating lesion. If willing to undertake the treatment, I may offer this patient bronchoscopy with was therapeutic airway suctioning to improve his airway patency and his symptoms of shortness of breath and this will be also a good opportunity to get a microbial analysis and make sure there is no underlying infection. We'll discuss this with the primary team. Keep the Coumadin on hold for now
[2019-09-16 16:33] LABS: Glucose,Whole Blood 170 mg/dL (75-99)
[2019-09-16] MEDS ORDERED: WARFARIN 0.5 MG TAB PO ONE (18:00)
[2019-09-16] MEDS: MONTELUKAST 10 MG TAB PO SCH (20:21)
[2019-09-16] MEDS: MELATONIN 5 MG TABLET PO SCH (20:22)
[2019-09-16 20:44] LABS: Glucose,Whole Blood 116 mg/dL (75-99)
[2019-09-16] MEDS: ALPRAZolam 0.25 MG TAB PO PRN (21:11)
--- NOTE | 2019-09-16 21:35 | P.PN ---
Subjective Progress Note Date: 09/16/19 Principal diagnosis: Acute COPD exacerbation, purulent tracheobronchitis This is a pleasant 53 years old male with past medical history of COPD, right upper lobe pulmonary infiltrates with cavitary lesion, deep venous thrombosis and saddle pulmonary embolism on Coumadin alternating 2.5 and 5 mg, chronic hypoxic respiratory failure on 2 L oxygen, chronic left shoulder pain , right eye blindness, shingles, CVA with residual right hemiparesis. Presents because of chest pain of 2 days duration, central, nonradiating moderate to severe, with little improvement since yesterday associated with a dry cough, mild tachypnea. Also patient sees Dr. Rodriguez in the office about one week ago and he referred him to repeat CAT scan of the chest and ultrasound of the lower extremity for f ollow-up. She supposed to get it today on 09/14/2019. Patient has been evaluated by foundry manager and his he underwent stress test which is pending the results. Vitas looks stable. Labs mild leukocytosis. INR is 3.0, creatinine is normal. 09/16/2019 Patient is currently lying in the bed without any acute distress. Complaints of shortness of breath and cough. Patient is being continued on IV steroids, DuoNeb's and antibiotics. Pulmonary is planning for bronchoscopy tomorrow. INR is 4.1 today. Active Medications Hydrocodone Bitart/Acetaminophen ([place] 5-325) 1 each PO Q6HR PRN PRN Reason: Pain Last Admin: 09/16/19 20:21 Dose: 1 each Documented by: Albuterol/Ipratropium (Duoneb 0.5 Mg-3 Mg/3 Ml Soln) 3 ml INHALATION RT-Q4H PRN PRN Reason: Wheezing Last Admin: 09/16/19 20:29 Dose: 3 ml Documented by: Alprazolam (Xanax) 0.25 mg PO BID PRN PRN Reason: Anxiety Last Admin: 09/16/19 21:11 Dose: 0.25 mg Documented by: Amlodipine Besylate (Norvasc) 10 mg PO DAILY [facility] Last Admin: 09/16/19 09:26 Dose: 10 mg Documented by: Aspirin (Aspirin) 81 mg PO DAILY [facility] Last Admin: 09/16/19 09:26 Dose: 81 mg Documented by: Atorvastatin Calcium (Lipitor) 10 mg PO DAILY [facility] Last Admin: 09/16/19 09:26 Dose: 10 mg Documented by: Benzocaine/Menthol (Cepacol Lozenge) 1 each MUCOUS MEM Q4HR PRN PRN Reason: Cough Last Admin: 09/13/19 23:30 Dose: 1 each Documented by: Budesonide/Formoterol Fumarate (Symbicort 160-4.5 Mcg Inhaler) 2 puff INHALATION RT-BID [facility] Last Admin: 09/16/19 20:29 Dose: 2 puff Documented by: Escitalopram Oxalate (Lexapro) 10 mg PO DAILY [facility] Last Admin: 09/16/19 09:26 Dose: 10 mg Documented by: Famotidine (Pepcid) 20 mg PO Q12HR [facility] Last Admin: 09/16/19 20:21 Dose: 20 mg Documented by: Gabapentin (Neurontin) 800 mg PO TID [facility] Last Admin: 09/16/19 20:21 Dose: 800 mg Documented by: Guaifenesin/Dextromethorphan (Robitussin Dm) 10 ml PO Q6H PRN PRN Reason: Cough Last Admin: 09/15/19 20:44 Dose: 10 ml Documented by: Doxycycline Hyclate 100 mg/ (Sodium Chloride) 100 mls @ 100 mls/hr IVPB Q12HR [facility] Last Admin: 09/16/19 20:22 Dose: 100 mls/hr Documented by: Insulin Aspart (Novolog) 0 unit SQ ACHS [facility]; Protocol Last Admin: 09/16/19 20:58 Dose: Not Given Documented by: Melatonin (Melatonin) 10 mg PO [facility] Last Admin: 09/16/19 20:22 Dose: 10 mg Documented by: Methylprednisolone Sodium Succinate (Solu-Medrol) 40 mg IV Q8HR [facility] Last Admin: 09/16/19 17:10 Dose: 40 mg Documented by: Miscellaneous Information (Coumadin Per Pharmacy) 1 each MISCELLANE DIRECTED PRN; Protocol PRN Reason: Per Protocol Montelukast Sodium (Singulair) 10 mg PO [facility] Last Admin: 09/16/19 20:21 Dose: 10 mg Documented by: Objective - Vital Signs Vital signs: Vital Signs Temp 97.8 F 09/16/19 07:15 Pulse 74 09/16/19 11:43 Resp 18 09/16/19 07:15 BP 157/90 09/16/19 07:15 Pulse Ox 97 09/16/19 07:15 Intake & Output 09/15/19 09/16/19 09/16/19 18:59 06:59 18:59 Intake Total 240 888 960 Balance 240 888 960 Intake: Oral 240 888 960 Other: Voiding Method Toilet Toilet Toilet Diaper Diaper Diaper Incontinent Incontinent Incontinent # Voids 3 1 - Exam PHYSICAL EXAMINATION: Patient is lying in the bed comfortably, no acute distress, awake alert and oriented.. HEENT: Normocephalic. Neck is supple. Pupils reactive. Legally blind. Nostrils clear. Oral cavity is moist. Ears reveal no drainage. Neck reveals no JVD, carotid bruits, or thyromegaly. CHEST EXAMINATION: Trachea is central. Symmetrical expansion. Bibasilar diminished air entry. Minimal expiratory wheeze.. CARDIAC: Normal S1, S2 with no gallops. No murmurs ABDOMEN: Soft. Bowel sounds normal. No organomegaly. No abdominal bruits. Extremities: reveal no edema. No clubbing or cyanosis Neurologically awake, alert, oriented x3 with well-coordinated movements. No focal deficits noted Skin: No rash or skin lesions. Psychiatric: Coperative. Nonsuicidal Musculoskeletal: No joint swelling or deformity. Normal range of motion. - Labs CBC & Chem 7: 09/16/19 05:55 09/16/19 05:55 Labs: Abnormal Lab Results - Last 24 Hours (Table) 09/15/19 09/15/19 09/16/19 Range/Units 16:36 20:09 05:55 WBC (3.8-10.6) k/uL RBC (4.30-5.90) m/uL MCV (80.0-100.0) fL Neutrophils # (1.3-7.7) k/uL Lymphocytes # (1.0-4.8) k/uL PT 40.7 H (9.0-12.0) sec INR 4.1 H (<1.2) Sodium (137-145) mmol/L Carbon Dioxide (22-30) mmol/L BUN (9-20) mg/dL Creatinine (0.66-1.25) mg/dL Glucose (74-99) mg/dL POC Glucose (mg/dL) 125 H 151 H (75-99) mg/dL 09/16/19 09/16/19 09/16/19 Range/Units 05:55 05:55 06:40 WBC 14.1 H (3.8-10.6) k/uL RBC 4.12 L (4.30-5.90) m/uL MCV 101.1 H (80.0-100.0) fL Neutrophils # 13.3 H (1.3-7.7) k/uL Lymphocytes # 0.1 L (1.0-4.8) k/uL PT (9.0-12.0) sec INR (<1.2) Sodium 136 L (137-145) mmol/L Carbon Dioxide 35 H (22-30) mmol/L BUN 25 H (9-20) mg/dL Creatinine 0.53 L (0.66-1.25) mg/dL Glucose 121 H (74-99) mg/dL POC Glucose (mg/dL) 125 H (75-99) mg/dL 09/16/19 Range/Units 11:37 WBC (3.8-10.6) k/uL RBC (4.30-5.90) m/uL MCV (80.0-100.0) fL Neutrophils # (1.3-7.7) k/uL Lymphocytes # (1.0-4.8) k/uL PT (9.0-12.0) sec INR (<1.2) Sodium (137-145) mmol/L Carbon Dioxide (22-30) mmol/L BUN (9-20) mg/dL Creatinine (0.66-1.25) mg/dL Glucose (74-99) mg/dL POC Glucose (mg/dL) 127 H (75-99) mg/dL Assessment and Plan Assessment: Chest pain. ACS rule out. Due to his stress echocardiogram negative. Likely musculoskeletal Acute COPD exacerbation history of PE/DVT currently on anticoagulation with Coumadin supratherapeutic INR level Right eye blindness Chronic pain Left shoulder degenerative joint disease Right upper lobe pulmonary infiltrates, cavitary lesion. Was recently treated. Chronic hypoxic respiratory failure secondary to COPD History of shingles DVT prophylaxis. Patient is already on full anticoagulation Plan: Patient will be continued on DuoNeb's, IV steroids and antibiotics. Patient still complaints of shortness of breath and not feeling very well. Continue with pain management with [place] 5. Pulmonary is planning for bronchoscopy tomorrow. Continue with the Coumadin dosing and follow closely. Further recommendations based on the clinical course. Prognosis is guarded. Time with Patient: Greater than 30
[2019-09-17] MEDS: IPRATROPIUM-ALBUTEROL 3 ML NEB INHALATION PRN ×5 (00:12→19:13)
[2019-09-17 06:53] LABS: Glucose,Whole Blood 109 mg/dL (75-99)
[2019-09-17] MEDS: INSULIN ASPART (NovoLOG) 100 UNIT/ML VIAL SQ SCH ×4 (07:41→20:20)
[2019-09-17 07:44] LABS: Basophils # (A) 0.2 k/uL (0-0.2); Basophils % (A) 2 %; Eosinophils % (A) 0 %; HCT 42.7 % (39.0-53.0); HGB 13.6 gm/dL (13.0-17.5); Lymphocytes # (A) 0.1 k/uL (1.0-4.8); Lymphocytes % (A) 1 %; MCH 31.9 pg (25.0-35.0); MCHC 31.8 g/dL (31.0-37.0); MCV 100.4 fL (80.0-100.0); Mean Platelet Volume 6.6; Monocytes # (A) 0.4 k/uL (0-1.0); Monocytes % (A) 3 %; Neutrophils # (A) 12.5 k/uL (1.3-7.7); Neutrophils % (A) 94 %; Platelet Count 353 k/uL (150-450); RBC 4.25 m/uL (4.30-5.90); WBC 13.3 k/uL (3.8-10.6)
[2019-09-17 07:49] LABS: INR 3.5 (<1.2); Prothrombin Time 34.6 sec (9.0-12.0)
[2019-09-17] MEDS: SYMBICORT 160-4.5 MCG INHALER INHALATION SCH ×2 (08:02→19:13)
[2019-09-17 08:06] LABS: African American GFR (CKD) >90 (>60 ml/min/1.73 sqM); Anion Gap 3 mmol/L; Blood Urea Nitrogen 23 mg/dL (9-20); Calcium 8.6 mg/dL (8.4-10.2); Carbon Dioxide 34 mmol/L (22-30); Chloride 100 mmol/L (98-107); Glucose 96 mg/dL (74-99); Non-African American GFR(CKD) >90 (>60 ml/min/1.73 sqM); Potassium 4.3 mmol/L (3.5-5.1); Sodium 137 mmol/L (137-145)
[2019-09-17] MEDS: ATORVASTATIN 10 MG TAB PO SCH (08:25)
[2019-09-17] MEDS: GABAPENTIN 400 MG CAP PO SCH ×3 (08:25→20:23)
[2019-09-17] MEDS: amLODIPine 10 MG TAB PO SCH (08:25)
[2019-09-17] MEDS: ESCITALOPRAM 10 MG TAB PO SCH (08:25)
[2019-09-17] MEDS: methylPREDNISolone SOD SUCCI 40 MG/ML 1 ML VIAL IV SCH ×3 (08:25→23:17)
[2019-09-17] MEDS: FAMOTIDINE 20 MG TAB PO SCH ×2 (08:25→20:22)
[2019-09-17] MEDS: DOXYCYCLINE 100 MG in SODIUM CHLORIDE 0.9% 100 ML IVPB SCH ×2 (08:25→20:22)
[2019-09-17] MEDS: ALPRAZolam 0.25 MG TAB PO PRN (08:37)
[2019-09-17] MEDS: HYDROcodone/APAP 5-325MG 1 EACH TAB PO PRN (08:37)
[2019-09-17 11:45] LABS: Glucose,Whole Blood 102 mg/dL (75-99)
[2019-09-17] MEDS ORDERED: MIDAZOLAM 2 MG/2 ML VIAL ONE (12:38)
[2019-09-17] MEDS ORDERED: KETAMINE 10 MG/ML 20 ML VIAL ONE (12:38)
[2019-09-17] MEDS ORDERED: LIDOCAINE 1% INJ 10MG/ML (20 ML MDV) ONE (12:38)
[2019-09-17] MEDS ORDERED: ESMOLOL 100 MG/10 ML VIAL ONE (12:38)
[2019-09-17] MEDS ORDERED: PROPOFOL 10 MG/ML 20 ML VIAL IV ONE (12:38)
[2019-09-17] MEDS ORDERED: SODIUM CHLORIDE 0.9% 500 ML 500 ML IV ONE (12:55)
--- NOTE | 2019-09-17 13:40 | P.PN ---
Subjective Progress Note Date: 09/17/19 Principal diagnosis: Acute COPD exacerbation, chest pain On 09/15/2019 patient seen in follow-up in the observation unit, he is resting in bed, he states his breathing is about the same, still coughing, but not bringing up much sputum, remains on doxycycline, IV steroids and nebulized bronchodilators, lung sounds are diminished and scattered expiratory wheezes. Patient had a dobutamine stress echo which was negative. 3 sets of cardiac troponins were negative. On 09/17/2019 patient seen in follow-up. Patient is still dyspneic, and congested. Remains on combination of doxycycline, IV steroids and nebulized bronchodilators, vital signs have been stable. He is on 3 L of oxygen, with a pulse ox of 94%. Lung sounds are positive for scattered rhonchi and wheezes. Patient is scheduled for bronchoscopy with BAL today. Objective - Vital Signs Vital signs: Vital Signs Temp 98.1 F 09/17/19 07:45 Pulse 77 09/17/19 11:53 Resp 18 09/17/19 11:53 BP 142/78 09/17/19 07:45 Pulse Ox 97 09/17/19 08:03 Intake & Output 09/16/19 09/17/19 09/17/19 18:59 06:59 18:59 Intake Total 1320 250 Balance 1320 250 Intake: IV 250 Oral 1320 Other: Voiding Method Toilet Toilet Toilet Diaper Diaper Diaper Incontinent Incontinent Incontinent # Voids 1 1 - Exam GENERAL EXAM: Alert, 59-year-old white male in 2 L of oxygen and the pulse ox of 98%, comfortable in no apparent distress. HEAD: Normocephalic/atraumatic. EYES: Normal reaction of pupils, equal size. Patient has a prosthetic right eye Conjunctiva pink, sclera white. NOSE: Clear with pink turbinates. THROAT: No erythema or exudates. NECK: No masses, no JVD, no thyroid enlargement, no adenopathy. CHEST: No chest wall deformity. Symmetrical expansion. LUNGS: Equal air entry with scattered wheezes, and a few rhonchi, but good air entry noted bilaterally CVS: Regular rate and rhythm, normal S1 and S2, no gallops, no murmurs, no rubs ABDOMEN: Soft, nontender. No hepatosplenomegaly, normal bowel sounds, no guarding or rigidity. EXTREMITIES: No clubbing, no edema, no cyanosis, 2+ pulses and upper and lower extremities. MUSCULOSKELETAL: Muscle strength and tone normal. SPINE: No scoliosis or deformity SKIN: No rashes CENTRAL NERVOUS SYSTEM: Alert and oriented -3. No focal deficits, tone is normal in all 4 extremities. PSYCHIATRIC: Alert and oriented -3. Appropriate affect. Intact judgment and insight. - Labs CBC & Chem 7: 09/17/19 06:53 09/17/19 06:53 Labs: Abnormal Lab Results - Last 24 Hours (Table) 09/16/19 09/16/19 09/17/19 Range/Units 16:31 20:42 06:52 WBC (3.8-10.6) k/uL RBC (4.30-5.90) m/uL MCV (80.0-100.0) fL Neutrophils # (1.3-7.7) k/uL Lymphocytes # (1.0-4.8) k/uL PT (9.0-12.0) sec INR (<1.2) Carbon Dioxide (22-30) mmol/L BUN (9-20) mg/dL Creatinine (0.66-1.25) mg/dL POC Glucose (mg/dL) 170 H 116 H 109 H (75-99) mg/dL 09/17/19 09/17/19 09/17/19 Range/Units 06:53 06:53 06:53 WBC 13.3 H (3.8-10.6) k/uL RBC 4.25 L (4.30-5.90) m/uL MCV 100.4 H (80.0-100.0) fL Neutrophils # 12.5 H (1.3-7.7) k/uL Lymphocytes # 0.1 L (1.0-4.8) k/uL PT 34.6 H (9.0-12.0) sec INR 3.5 H (<1.2) Carbon Dioxide 34 H (22-30) mmol/L BUN 23 H (9-20) mg/dL Creatinine 0.49 L (0.66-1.25) mg/dL POC Glucose (mg/dL) (75-99) mg/dL 09/17/19 Range/Units 11:42 WBC (3.8-10.6) k/uL RBC (4.30-5.90) m/uL MCV (80.0-100.0) fL Neutrophils # (1.3-7.7) k/uL Lymphocytes # (1.0-4.8) k/uL PT (9.0-12.0) sec INR (<1.2) Carbon Dioxide (22-30) mmol/L BUN (9-20) mg/dL Creatinine (0.66-1.25) mg/dL POC Glucose (mg/dL) 102 H (75-99) mg/dL Assessment and Plan Plan: Assessment: 1 Atypical chest pain in a patient found to have a negative dobutamine stress echocardiogram. No evidence of ischemia. 2 Acute exacerbation of severe oxygen dependent chronic obstructive pulmonary disease, FEV1 value 36% of predicted 3 Chronic tobacco dependence 4 Recent right upper lobe fungal infection treated with Sporanox and Augmentin, and near complete resolution on chest x-ray. No worse since 07/19/2019. 5 History of PE/DVT, anticoagulated with warfarin, INR 3.0. 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 Continue to follow. I performed a history & physical examination of the patient and discussed their management with my nurse practitioner, Jeane Hwang. I reviewed the nurse practitioner's note and agree with the documented findings and plan of care. Lung sounds are positive for diffuse wheezes throughout the lung brown. The findings and the impression was discussed with the patient. I attest to the documentation by the nurse practitioner. Time with Patient: Less than 30
--- NOTE | 2019-09-17 14:17 | PN ---
PROGRESS NOTE DATE OF SERVICE: 09/17/2019 This is a 59-year-old gentleman who was admitted with chest pain had COPD also. The patient was planned to have bronchoscopy with Dr. Garcia today. No fever. Cough is reported. PHYSICAL EXAMINATION: Alert and oriented x3. Pulse is 81, blood pressure 140/78, respiration 20, temperature 98.1, pulse ox 98% on 3 L. HEENT: Conjunctivae normal. CARDIOVASCULAR: S1, S2. RESPIRATION: Breath sounds diminished at the bases, bilateral scattered rhonchi, no crackles. ABDOMEN: Soft, nontender. NERVOUS SYSTEM: No focal deficits. LABS: WBC is 13.3 and INR is 3.5. ASSESSMENT: 1. Chest pain, myocardial infarction ruled out, possibly musculoskeletal. 2. Chronic obstructive pulmonary disease acute exacerbation with acute purulent tracheobronchitis with slow improvement, slated for bronchoscopy. 3. Mild Coumadin coagulopathy. 4. History of saddle pulmonary embolism and deep venous thrombosis. 5. Right eye blindness history. 6. Left shoulder pain and degenerative joint disease. 7. History of right upper lobe pulmonary infiltrates and cavitary lesion. 8. History of shingles. 9. Chronic hypoxic respiratory failure. RECOMMENDATION: To continue with the current management, symptomatic treatment and continue with antibiotics. Continue with steroids and other medications. Closely follow with Dr. Garcia. Possible bronchoscopy today. Guarded prognosis, further recommendations to follow. MMODL / IJN: [id number] /
[2019-09-17] MEDS: ASPIRIN 81 MG PO SCH (14:43)
--- NOTE | 2019-09-17 14:59 | P.PCN ---
Date of Procedure: 09/17/19 Preoperative Diagnosis: COPD exacerbation, pneumonia Postoperative Diagnosis: COPD exacerbation, pneumonia Procedure(s) Performed: Bronchoscopy, therapeutic airway suctioning Anesthesia: MAC Surgeon: Willie Garcia Estimated Blood Loss (ml): 0 IV fluids (ml): 0 Pathology: other Condition: stable Disposition: floor Operative Findings: This procedure was done under conscious sedation with anesthetic agents administered by anesthesia the bedside. After achieving adequate sedation, the flexible bronchoscope was inserted to the right nostril was advanced into the posterior pharynx. Examination of the upper airway was done and this included the pharynx, larynx, epiglottis, arytenoids and the vocal cords and following these upper airway structures were within normal limits. A total of 2 mL of 1% lidocaine was applied to the vocal cords and following that the bronchoscope was advanced into the upper trachea. Examination of the second bronchial tree was done. There was diffuse and symmetric changes throughout the airway. There was copious amount of purulent respiratory secretions that were suctioned out. Secretions were loose and there was easy to suction of the bronchoscope. Quick airway inspection was done. There was a pressure control. There was also no other endobronchial lesions or abnormalities. The visualized airways into the bilateral mainstem bronchi, right upper lobe bronchus regular lobe bronchus left upper and left lower lobe bronchus lungs various segments. Therapeutic airway suctioning was done. The samples were sent for culture and analysis. The procedure was completed without any complications.
[2019-09-17 16:47] LABS: Glucose,Whole Blood 159 mg/dL (75-99)
[2019-09-17] MEDS ORDERED: WARFARIN 1 MG TAB PO ONE (18:00)
[2019-09-17 19:57] LABS: Glucose,Whole Blood 152 mg/dL (75-99)
[2019-09-17] MEDS: MELATONIN 5 MG TABLET PO SCH (20:22)
[2019-09-17] MEDS: MONTELUKAST 10 MG TAB PO SCH (20:23)
[2019-09-18] MEDS: HYDROcodone/APAP 5-325MG 1 EACH TAB PO PRN (01:06)
[2019-09-18 06:39] LABS: Basophils # (A) 0.1 k/uL (0-0.2); Basophils % (A) 1 %; Eosinophils % (A) 0 %; HCT 42.9 % (39.0-53.0); HGB 13.4 gm/dL (13.0-17.5); Lymphocytes # (A) 0.2 k/uL (1.0-4.8); Lymphocytes % (A) 1 %; MCH 31.9 pg (25.0-35.0); MCHC 31.3 g/dL (31.0-37.0); MCV 102.1 fL (80.0-100.0); Macrocytosis Slight; Mean Platelet Volume 6.7; Monocytes # (A) 0.4 k/uL (0-1.0); Monocytes % (A) 3 %; Neutrophils # (A) 12.7 k/uL (1.3-7.7); Neutrophils % (A) 95 %; Platelet Count 320 k/uL (150-450); RDW 12.9 % (11.5-15.5); WBC 13.4 k/uL (3.8-10.6)
[2019-09-18 06:56] LABS: African American GFR (CKD) >90 (>60 ml/min/1.73 sqM); Anion Gap 3 mmol/L; Blood Urea Nitrogen 30 mg/dL (9-20); Calcium 8.5 mg/dL (8.4-10.2); Carbon Dioxide 34 mmol/L (22-30); Chloride 99 mmol/L (98-107); Glucose 144 mg/dL (74-99); Non-African American GFR(CKD) >90 (>60 ml/min/1.73 sqM); Potassium 4.3 mmol/L (3.5-5.1); Sodium 136 mmol/L (137-145)
[2019-09-18 07:09] LABS: Glucose,Whole Blood 116 mg/dL (75-99)
[2019-09-18] MEDS: IPRATROPIUM-ALBUTEROL 3 ML NEB INHALATION PRN ×3 (07:31→15:05)
[2019-09-18] MEDS: SYMBICORT 160-4.5 MCG INHALER INHALATION SCH (07:31)
[2019-09-18 07:49] VITALS: BP 136/75; RESP 19; TEMP 97.9
[2019-09-18] MEDS: INSULIN ASPART (NovoLOG) 100 UNIT/ML VIAL SQ SCH ×2 (08:03→12:15)
[2019-09-18 08:40] LABS: INR 3.1 (<1.2); Prothrombin Time 30.4 sec (9.0-12.0)
[2019-09-18] MEDS: ASPIRIN 81 MG PO SCH (09:21)
[2019-09-18] MEDS: FAMOTIDINE 20 MG TAB PO SCH (09:21)
[2019-09-18] MEDS: methylPREDNISolone SOD SUCCI 40 MG/ML 1 ML VIAL IV SCH (09:21)
[2019-09-18] MEDS: GABAPENTIN 400 MG CAP PO SCH (09:21)
[2019-09-18] MEDS: DOXYCYCLINE 100 MG in SODIUM CHLORIDE 0.9% 100 ML IVPB SCH (09:21)
[2019-09-18] MEDS: ESCITALOPRAM 10 MG TAB PO SCH (09:22)
[2019-09-18] MEDS: amLODIPine 10 MG TAB PO SCH (09:22)
[2019-09-18] MEDS: ATORVASTATIN 10 MG TAB PO SCH (09:22)
[2019-09-18 11:50] LABS: Glucose,Whole Blood 106 mg/dL (75-99)
--- NOTE | 2019-09-18 12:22 | P.PN ---
Subjective Progress Note Date: 09/18/19 On today's evaluation of 09/18/2019, the patient is comfortable. He still short of breath however he has advanced COPD and probably is as close as he can be to his baseline pulmonary status. He had a bronchoscopy yesterday and therapeutic it was suctioning was done. The bronchial aspirate that was like yesterday was sent for culture and the results are still pending for now. The patient has some ongoing chest discomfort and pain because of cough and. He has undergone a cardiac workup including a stress and that came back negative. His pain skeletal in nature. No fever. No chills. No hemoptysis. Offered noninvasive positive pressure ventilation which she declined as the patient is unable to use it because of increased discomfort and anxiety. He is oxygen dependent at 3 L. He has a cough unable to bring up any sputum at this point in time. Objective - Vital Signs Vital signs: Vital Signs Temp 97.9 F 09/18/19 07:47 Pulse 90 09/18/19 11:26 Resp 19 09/18/19 07:47 BP 136/75 09/18/19 07:47 Pulse Ox 96 09/18/19 07:47 Intake & Output 09/17/19 09/18/19 09/18/19 18:59 06:59 18:59 Intake Total 250 240 Balance 250 240 Intake: IV 250 Oral 240 Other: Voiding Method Toilet Toilet Toilet Diaper Diaper Diaper Incontinent Incontinent Incontinent # Voids 3 1 2 - Exam GENERAL EXAM: Alert, 59-year-old white male in 3 L of oxygen and the pulse ox of 98%, comfortable in no apparent distress. HEAD: Normocephalic/atraumatic. EYES: Normal reaction of pupils, equal size. Patient has a prosthetic right eye Conjunctiva pink, sclera white. NOSE: Clear with pink turbinates. THROAT: No erythema or exudates. NECK: No masses, no JVD, no thyroid enlargement, no adenopathy. CHEST: No chest wall deformity. Symmetrical expansion. LUNGS: Equal air entry with scattered wheezes, and a few rhonchi, but good air entry noted bilaterally CVS: Regular rate and rhythm, normal S1 and S2, no gallops, no murmurs, no rubs ABDOMEN: Soft, nontender. No hepatosplenomegaly, normal bowel sounds, no guarding or rigidity. EXTREMITIES: No clubbing, no edema, no cyanosis, 2+ pulses and upper and lower extremities. MUSCULOSKELETAL: Muscle strength and tone normal. SPINE: No scoliosis or deformity SKIN: No rashes CENTRAL NERVOUS SYSTEM: Alert and oriented -3. No focal deficits, tone is normal in all 4 extremities. PSYCHIATRIC: Alert and oriented -3. Appropriate affect. Intact judgment and insight. - Labs CBC & Chem 7: 09/18/19 05:28 09/18/19 05:28 Labs: Abnormal Lab Results - Last 24 Hours (Table) 09/17/19 09/17/19 09/18/19 Range/Units 16:45 19:55 05:28 WBC 13.4 H (3.8-10.6) k/uL RBC 4.20 L (4.30-5.90) m/uL MCV 102.1 H (80.0-100.0) fL Neutrophils # 12.7 H (1.3-7.7) k/uL Lymphocytes # 0.2 L (1.0-4.8) k/uL PT (9.0-12.0) sec INR (<1.2) Sodium (137-145) mmol/L Carbon Dioxide (22-30) mmol/L BUN (9-20) mg/dL Creatinine (0.66-1.25) mg/dL Glucose (74-99) mg/dL POC Glucose (mg/dL) 159 H 152 H (75-99) mg/dL 09/18/19 09/18/19 09/18/19 Range/Units 05:28 05:28 07:07 WBC (3.8-10.6) k/uL RBC (4.30-5.90) m/uL MCV (80.0-100.0) fL Neutrophils # (1.3-7.7) k/uL Lymphocytes # (1.0-4.8) k/uL PT 30.4 H (9.0-12.0) sec INR 3.1 H (<1.2) Sodium 136 L (137-145) mmol/L Carbon Dioxide 34 H (22-30) mmol/L BUN 30 H (9-20) mg/dL Creatinine 0.63 L (0.66-1.25) mg/dL Glucose 144 H (74-99) mg/dL POC Glucose (mg/dL) 116 H (75-99) mg/dL 09/18/19 Range/Units 11:49 WBC (3.8-10.6) k/uL RBC (4.30-5.90) m/uL MCV (80.0-100.0) fL Neutrophils # (1.3-7.7) k/uL Lymphocytes # (1.0-4.8) k/uL PT (9.0-12.0) sec INR (<1.2) Sodium (137-145) mmol/L Carbon Dioxide (22-30) mmol/L BUN (9-20) mg/dL Creatinine (0.66-1.25) mg/dL Glucose (74-99) mg/dL POC Glucose (mg/dL) 106 H (75-99) mg/dL Microbiology - Last 24 Hours (Table) 09/17/19 13:23 Gram Stain - Preliminary Bronchoalviolar Lavage - Left Bronchial Washings Culture - Preliminary 09/17/19 13:23 Acid Fast Bacilli Culture - Preliminary Bronchoalviolar Lavage - Left 09/17/19 13:23 Fungal Culture - Preliminary Bronchoalviolar Lavage - Left Assessment and Plan Plan: 1 Atypical chest pain in a patient found to have a negative dobutamine stress echocardiogram. No evidence of ischemia. 2 Acute exacerbation of severe oxygen dependent chronic obstructive pulmonary disease, FEV1 value 36% of predicted, the patient is post bronchoscopy and therapeutic airway suctioning was done and the results are still pending for now. Meanwhile, the patient is feeling okay and this is the best is a look at for the condition that reason as the patient advanced COPD. 3 Chronic tobacco dependence 4 Recent right upper lobe fungal infection treated with Sporanox and Augmentin, and near complete resolution on chest x-ray. No worse since 07/19/2019. 5 History of PE/DVT, anticoagulated with warfarin, INR 3.0. 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 I think is reasonable to discharge him home today on DuoNeb nebulized treatments around the clock, prednisone burst taper, he is on Breo one inhalation a day. Use Ventolin the skin in the necessary basis. Nicotine patch. Follow-up with Crissy Burk our nurse practitioner in the office. Prognosis poor and he is at high risk of readmission and rehospitalization because of his advanced lung disease. We will be watching his bronchioloalveolar lavage cultures and will make adjustments on his antibiotics if needed on an outpatient basis.
[2019-09-18 15:16] VITALS: PULSE 88
[2019-09-18 16:29] LABS: Glucose,Whole Blood 114 mg/dL (75-99)
[2019-09-18] MEDS ORDERED: WARFARIN 1 MG TAB PO ONE (18:00)
--- NOTE | 2019-09-18 20:25 | DS ---
DISCHARGE SUMMARY FINAL DIAGNOSES: 1. Chest pain, possibly musculoskeletal. Myocardial infarction ruled out. Negative stress test. 2. Chronic obstructive pulmonary disease, acute exacerbation, with acute purulent tracheobronchitis with slow improvement, status post bronchoscopy. 3. Mild Coumadin coagulopathy, improved. 4. 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 5. Right eye blindness history. 6. Left shoulder pain and degenerative joint disease. 7. History of right upper lobe pulmonary infiltrates and cavitary lesion. 8. History of shingles. 9. Chronic hypoxic respiratory failure on home O2. DISCHARGE DISPOSITION: Patient will be discharged in stable condition with guarded prognosis. Discharge cleared by cardiology and Pulmonary. HISTORY OF PRESENT ILLNESS: This 59-year-old gentleman with a past medical history of multiple medical problems was admitted with COPD and chest pain. Myocardial infarction ruled out. Cardiology ordered stress test which was negative and pulmonology performed a bronchoscopy. Patient improved significantly. On exam, vitals are stable. Cardiovascular: S1, S2. Abdomen soft. Nervous system: No numbness or weakness. DISCHARGE ADVICE AND MEDICATIONS: 1. Diet is cardiac diet. 2. Activity limited until followup. 3. Follow up with Dr. Urszula Carrasco in 2-3 days. 4. Follow up with Dr. Garcia as recommended. 5. Follow up with Cardiology as recommended. DISCHARGE MEDICATIONS: 1. Coumadin 2.5 mg q.48 hours and 5 mg q.48 hours. 2. DuoNeb q.i.d. and p.r.n. 3. Fluticasone, salmeterol 1 puff b.i.d. 4. Habitrol 14 daily. 5. No smoking. 6. Melatonin 10 mg q.h.s. 7. Norvasc 10 mg daily. 8. Albuterol p.r.n. 9. Lexapro 10 mg daily. 10.Lipitor 10 mg p.o. daily. 11.Neurontin 800 mg t.i.d. 12.Prednisone taper 40 mg daily for 3 days, 30 for 3 days, 20 for 3 days and 10 for 3 days, then stop. 13.Singulair 10 mg p.o. q.h.s. 14.Ultram 50 mg q.6h p.r.n. 15.Doxycycline 100 mg p.o. b.i.d. for 3 days. Once again, the patient being discharged in stable condition with guarded prognosis. MMROROL / HANSAN: [id number] /
== END 2019-09-18 17:00 | disposition home health service (06) | DRG 191 ==
LOC: EC 16:26 → 1SOBS 18:03 → OBSVTOIN 09-15 08:32
PROVIDERS: ADMIT Hospitalist; ATTEND Hospitalist
PROC: 0B978ZZ Drainage of Left Main Bronchus, Via Natural or Artificial Opening Endoscopic (ICD-10-PCS; principal; 2019-09-17 12:35)
PROC: 0B988ZZ Drainage of Left Upper Lobe Bronchus, Via Natural or Artificial Opening Endoscopic (ICD-10-PCS; principal; 2019-09-17 12:35)
PROC: 0B9B8ZZ Drainage of Left Lower Lobe Bronchus, Via Natural or Artificial Opening Endoscopic (ICD-10-PCS; principal; 2019-09-17 12:35)
PROC: 0B948ZZ Drainage of Right Upper Lobe Bronchus, Via Natural or Artificial Opening Endoscopic (ICD-10-PCS; principal; 2019-09-17 12:35)
PROC: 0B938ZZ Drainage of Right Main Bronchus, Via Natural or Artificial Opening Endoscopic (ICD-10-PCS; principal; 2019-09-17 12:35)
DX: J44.0 Chronic obstructive pulmonary disease with (acute) lower respiratory infection (principal); J96.11 Chronic respiratory failure with hypoxia; I69.351 Hemiplegia and hemiparesis following cerebral infarction affecting right dominant side; M87.9 Osteonecrosis, unspecified; Z99.81 Dependence on supplemental oxygen; J44.1 Chronic obstructive pulmonary disease with (acute) exacerbation; J20.9 Acute bronchitis, unspecified; E11.9 Type 2 diabetes mellitus without complications; G89.29 Other chronic pain; R07.89 Other chest pain; R40.2142 Coma scale, eyes open, spontaneous, at arrival to emergency department; R40.2362 Coma scale, best motor response, obeys commands, at arrival to emergency department; R40.2252 Coma scale, best verbal response, oriented, at arrival to emergency department; I10 Essential (primary) hypertension; M89.712 Major osseous defect, left shoulder region; M19.012 Primary osteoarthritis, left shoulder; E78.5 Hyperlipidemia, unspecified; R32 Unspecified urinary incontinence; R79.1 Abnormal coagulation profile; T45.515A Adverse effect of anticoagulants, initial encounter; I25.10 Atherosclerotic heart disease of native coronary artery without angina pectoris; K21.9 Gastro-esophageal reflux disease without esophagitis; I25.2 Old myocardial infarction; F32.9 Major depressive disorder, single episode, unspecified; F41.0 Panic disorder [episodic paroxysmal anxiety]; H54.61 Unqualified visual loss, right eye, normal vision left eye; Z79.01 Long term (current) use of anticoagulants; Z79.51 Long term (current) use of inhaled steroids; Z79.899 Other long term (current) drug therapy; Z86.718 Personal history of other venous thrombosis and embolism; Z86.711 Personal history of pulmonary embolism; Z87.891 Personal history of nicotine dependence; Z87.01 Personal history of pneumonia (recurrent); Z87.81 Personal history of (healed) traumatic fracture; Z86.19 Personal history of other infectious and parasitic diseases; Z87.2 Personal history of diseases of the skin and subcutaneous tissue; Z90.01 Acquired absence of eye; Z91.018 Allergy to other foods; Z91.010 Allergy to peanuts; Z80.51 Family history of malignant neoplasm of kidney; Z80.8 Family history of malignant neoplasm of other organs or systems; Z82.5 Family history of asthma and other chronic lower respiratory diseases
CPT/HCPCS: 31624; 36415; 71046; 80048; 80061; 83880; 84484; 85025; 85610; 87070; 87102; 87116; 87205; 87206; 87252; 87496; 87498; 87502; 87529; 87634; 87798; 88108; 88305; 93005; 93351; 94640; 94760; 96374; 99285

== ENCOUNTER 2019-09-22 17:58 | Inpatient (IN) | payer OTHER ==
[2019-09-22] MEDS ORDERED: IPRATROPIUM-ALBUTEROL 3 ML NEB INHALATION STA (18:26)
[2019-09-22 18:42] LABS: Basophils # (A) 0.1 k/uL (0-0.2); Basophils % (A) 0 %; Eosinophils # (A) 0.1 k/uL (0-0.7); Eosinophils % (A) 0 %; HCT 45.1 % (39.0-53.0); HGB 14.7 gm/dL (13.0-17.5); Lymphocytes # (A) 0.5 k/uL (1.0-4.8); Lymphocytes % (A) 3 %; MCH 31.7 pg (25.0-35.0); MCHC 32.6 g/dL (31.0-37.0); MCV 97.5 fL (80.0-100.0); Monocytes # (A) 0.4 k/uL (0-1.0); Monocytes % (A) 3 %; Neutrophils # (A) 13.3 k/uL (1.3-7.7); Neutrophils % (A) 93 %; Platelet Count 241 k/uL (150-450); RBC 4.62 m/uL (4.30-5.90); RDW 13.1 % (11.5-15.5); WBC 14.3 k/uL (3.8-10.6)
[2019-09-22] MEDS ORDERED: methylPREDNISolone SOD SUCCI 125 MG/2 ML VIAL IV STA (18:44)
[2019-09-22 18:47] LABS: ALT 47 U/L (4-49); AST 29 U/L (17-59); African American GFR (CKD) >90 (>60 ml/min/1.73 sqM); Albumin 3.7 g/dL (3.5-5.0); Alkaline Phosphatase 56 U/L (38-126); Anion Gap 12 mmol/L; Blood Urea Nitrogen 12 mg/dL (9-20); Calcium 8.4 mg/dL (8.4-10.2); Carbon Dioxide 24 mmol/L (22-30); Chloride 92 mmol/L (98-107); Glucose 91 mg/dL (74-99); Non-African American GFR(CKD) >90 (>60 ml/min/1.73 sqM); Potassium 4.4 mmol/L (3.5-5.1); Sodium 128 mmol/L (137-145); Total Bilirubin 0.4 mg/dL (0.2-1.3); Total Protein 5.9 g/dL (6.3-8.2)
--- NOTE | 2019-09-22 18:47 | ED ---
General Adult HPI - General Chief complaint: Shortness of Breath Stated complaint: CLEMENCIA Time Seen by Provider: 09/22/19 18:00 Source: patient, EMS, RN notes reviewed Mode of arrival: EMS Limitations: no limitations - History of Present Illness Initial comments: Patient is a pleasant 59 male lying to the emergency department with difficulty breathing. Symptoms have progressively worsened since discharge from the hospital several days ago. Patient does have cough with occasional yellow sputum. Patient is unclear whether or not he may have some fevers. No chest pain. No leg pain or leg swelling. Patient states she just had recent bronchoscopy. - Related Data Home Medications Medication Instructions Recorded Confirmed Fluticasone/Salmeterol 1 puff INHALATION RT-BID 04/29/19 09/12/19 [Fluticasone-Salmeterol 232-14] amLODIPine [Norvasc] 10 mg PO DAILY 04/29/19 09/12/19 Albuterol Inhaler [Ventolin Hfa 1 - 2 puff INHALATION RT-Q6H PRN 05/11/19 09/12/19 Inhaler] Nicotine 14Mg/24Hr Patch [Habitrol] 1 patch TRANSDERM DAILY 06/04/19 09/12/19 Ipratropium-Albuterol Nebulize 3 ml INHALATION RT-QID 06/13/19 09/12/19 [Duoneb 0.5 mg-3 mg/3 ml Soln] Melatonin 10 mg PO HS 08/12/19 09/12/19 Warfarin [Coumadin] 2.5 mg PO Q48H 08/12/19 09/12/19 Warfarin Sodium [Coumadin] 5 mg PO Q48H 09/12/19 09/12/19 Previous Rx's Medication Instructions Recorded Escitalopram [Lexapro] 10 mg PO DAILY #15 tab 05/15/19 Gabapentin [Neurontin] 800 mg PO TID #12 tab 07/21/19 Atorvastatin [Lipitor] 10 mg PO DAILY #30 tab 09/15/19 Doxycycline [Vibramycin] 100 mg PO BID 3 Days #6 capsule 09/15/19 predniSONE 10 mg PO DIRECTED #30 tab 09/15/19 Montelukast [Singulair] 10 mg PO HS #30 tab 09/16/19 traMADol HCL [Ultram] 50 mg PO Q6HR PRN 3 Days #12 tab 09/16/19 Allergies Allergy/AdvReac Type Severity Reaction Status Date / Time tree nut [Nut] Allergy Unknown Dyspnea, Verified 09/22/19 18:14 Rash/Hives peanut [Peanut Butter] AdvReac Dyspnea, Verified 09/22/19 18:14 Rash/Hives Review of Systems ROS Statement: Those systems with pertinent positive or pertinent negative responses have been documented in the HPI. ROS Other: All systems not noted in ROS Statement are negative. Constitutional: Reports: as per HPI Eyes: Denies: eye pain ENT: Denies: ear pain Respiratory: Reports: cough, dyspnea Cardiovascular: Denies: chest pain Endocrine: Reports: fatigue Gastrointestinal: Denies: abdominal pain Genitourinary: Denies: dysuria Musculoskeletal: Denies: back pain Skin: Denies: rash Neurological: Denies: weakness Past Medical History Past Medical History: Chest Pain / Angina, COPD, CVA/TIA, Deep Vein Thrombosis (DVT), Hypertension, Myocardial Infarction (AK), Pneumonia, Pulmonary Embolus (PE), Respiratory Disorder, Skin Disorder Additional Past Medical History / Comment(s): 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 Last Myocardial Infarction Date:: unknown History of Any Multi-Drug Resistant Organisms: None Reported Past Surgical History: Orthopedic Surgery Additional Past Surgical History / Comment(s): metal plate left hand middle finger, right eye enucleation. Past Anesthesia/Blood Transfusion Reactions: No Reported Reaction Past Psychological History: Anxiety, Depression, Panic Disorder Smoking Status: Former smoker Past Alcohol Use History: Occasional Past Drug Use History: Marijuana - Past Family History Mother Family Medical History: Cancer Additional Family Medical History / Comment(s): Pt believes his Mom of Kidney Cancer Father Family Medical History: Cancer, COPD, Respiratory Disorder Additional Family Medical History / Comment(s): Melanoma General Exam Limitations: no limitations General appearance: alert, in no apparent distress Head exam: Present: normocephalic Eye exam: Present: other (Right eye atrophy which patient states is chronic) ENT exam: Present: normal oropharynx Neck exam: Present: normal inspection Respiratory exam: Present: wheezes, decreased breath sounds (Very diminished) Cardiovascular Exam: Present: regular rate, normal rhythm GI/Abdominal exam: Present: soft. Absent: tenderness Extremities exam: Present: normal inspection. Absent: pedal edema, calf tenderness Neurological exam: Present: alert Psychiatric exam: Present: normal affect, normal mood Skin exam: Present: normal color Course Vital Signs 09/22/19 09/22/19 09/22/19 18:09 18:43 18:51 Temperature 97.9 F Pulse Rate 101 H 103 H 103 H Respiratory 18 Rate Blood Pressure 140/84 O2 Sat by Pulse 97 Oximetry 09/22/19 19:03 Temperature Pulse Rate 103 H Respiratory 20 Rate Blood Pressure 123/92 O2 Sat by Pulse 97 Oximetry EKG Findings - EKG Comments: EKG Findings:: Sinus tachycardia 102. AR 1:30. QRS 84. QT 3:30. QTC 4:30. Normal axis. No QRS. No acute ST change. Medical Decision Making - Medical Decision Making Patient reevaluated with only mild improvement. Patient updated on results. Patient does not feel comfortable going home. Case was discussed with practitioner Susan correa with Dr. tuttle, who will admit for Dr. Barbour. - Lab Data Result diagrams: 09/22/19 18:28 09/22/19 18:28 Lab Results 09/22/19 09/22/19 09/22/19 Range/Units 18:28 18:28 18:28 WBC 14.3 H (3.8-10.6) k/uL RBC 4.62 (4.30-5.90) m/uL Hgb 14.7 (13.0-17.5) gm/dL Hct 45.1 (39.0-53.0) % MCV 97.5 (80.0-100.0) fL MCH 31.7 (25.0-35.0) pg MCHC 32.6 (31.0-37.0) g/dL RDW 13.1 (11.5-15.5) % Plt Count 241 (150-450) k/uL Neutrophils % 93 % Lymphocytes % 3 % Monocytes % 3 % Eosinophils % 0 % Basophils % 0 % Neutrophils # 13.3 H (1.3-7.7) k/uL Lymphocytes # 0.5 L (1.0-4.8) k/uL Monocytes # 0.4 (0-1.0) k/uL Eosinophils # 0.1 (0-0.7) k/uL Basophils # 0.1 (0-0.2) k/uL PT 16.6 H (9.0-12.0) sec INR 1.7 H (<1.2) APTT 21.8 L (22.0-30.0) sec Sodium 128 L (137-145) mmol/L Potassium 4.4 (3.5-5.1) mmol/L Chloride 92 L (98-107) mmol/L Carbon Dioxide 24 (22-30) mmol/L Anion Gap 12 mmol/L BUN 12 (9-20) mg/dL Creatinine 0.43 L (0.66-1.25) mg/dL Est GFR (CKD-EPI)AfAm >90 (>60 ml/min/1.73 sqM) Est GFR (CKD-EPI)NonAf >90 (>60 ml/min/1.73 sqM) Glucose 91 (74-99) mg/dL Calcium 8.4 (8.4-10.2) mg/dL Total Bilirubin 0.4 (0.2-1.3) mg/dL AST 29 (17-59) U/L ALT 47 (4-49) U/L Alkaline Phosphatase 56 (38-126) U/L Total Protein 5.9 L (6.3-8.2) g/dL Albumin 3.7 (3.5-5.0) g/dL - Radiology Data Radiology results: image reviewed (Chest x-ray shows scarring and atelectasis. Clearing of infiltrate on previous exam.) Disposition Clinical Impression: COPD exacerbation Disposition: ADMITTED IP TO THIS HOSP Is patient prescribed a controlled substance at d/c from ED?: No Referrals: Urszula Carrasco MD [Primary Care Provider] - 1-2 days Decision Time: 19:41
[2019-09-22 18:53] LABS: INR 1.7 (<1.2); Prothrombin Time 16.6 sec (9.0-12.0)
[2019-09-22 19:02] LABS: Partial Thromboplastin Time 21.8 sec (22.0-30.0)
--- NOTE | 2019-09-22 19:22 | XR ---
EXAMINATION TYPE: XR chest 2V DATE OF EXAM: 09/22/2019 COMPARISON: 09/12/2019 HISTORY: Difficulty breathing TECHNIQUE: FINDINGS: Heart size is normal. There is small linear density right lung base. There is some linear i nfiltrate lateral aspect right upper lobe. There are no hilar masses. Mediastinum is normal. IMPRESSION: Scarring and subsegmental atelectasis in the right lung unchanged. There is some clearing of a cavitating infiltrate right upper lobe compared to 06/08/2019.
[2019-09-22] MEDS ORDERED: SODIUM CHLORIDE 0.9% 1,000 ML IV STA ×2 (19:42→21:02)
[2019-09-22] MEDS ORDERED: PIPERACILLIN-TAZOBACTAM 3.375 GM in SODIUM CHLORIDE 0.9% 100 ML IVPB STA (19:43)
[2019-09-22] MEDS ORDERED: PNEUMONIA PROTOCOL UTILIZED 1 EACH MISC PO PRN (19:43)
[2019-09-22] MEDS ORDERED: LEVOFLOXACIN 750MG-D5W PMX 750 MG in DEXTROSE/WATER 1 150ML.BAG IVPB STA (19:43)
[2019-09-22] MEDS: IPRATROPIUM-ALBUTEROL 3 ML NEB INHALATION PRN (21:51)
[2019-09-23] MEDS: methylPREDNISolone SOD SUCCI 125 MG/2 ML VIAL IV SCH ×2 (00:24→06:36)
[2019-09-23] MEDS: IPRATROPIUM-ALBUTEROL 3 ML NEB INHALATION PRN (01:05)
[2019-09-23] MEDS ORDERED: traMADol 50 MG TAB PO STA (02:15)
[2019-09-23] MEDS ORDERED: PIPERACILLIN-TAZOBACTAM 3.375 GM in SODIUM CHLORIDE 0.9% 100 ML IVPB SCH (04:00)
[2019-09-23] MEDS: IPRATROPIUM-ALBUTEROL 3 ML NEB INHALATION SCH ×5 (07:10→21:13)
[2019-09-23 07:56] LABS: Glucose,Whole Blood 172 mg/dL (75-99)
[2019-09-23] MEDS ORDERED: HYDROmorphone 0.5 MG/0.5 ML SYRINGE IVP PRN (11:43)
[2019-09-23] MEDS: methylPREDNISolone SOD SUCCI 40 MG/ML 1 ML VIAL IV SCH ×2 (12:14→17:42)
[2019-09-23] MEDS: GABAPENTIN 400 MG CAP PO SCH ×3 (12:15→21:13)
[2019-09-23] MEDS: traMADol 50 MG TAB PO PRN ×2 (12:15→17:46)
[2019-09-23 12:20] LABS: Glucose,Whole Blood 187 mg/dL (75-99)
[2019-09-23] MEDS: INSULIN ASPART (NovoLOG) 100 UNIT/ML VIAL SQ SCH ×3 (12:20→21:47)
--- NOTE | 2019-09-23 13:44 | P.CNPUL ---
History of Present Illness Consult date: 09/23/19 Reason for consult: COPD Chief complaint: Shortness of breath History of present illness: This is a 59-year-old white male very familiar to our service, patient is always in the ER and quite often gets admitted every time he presented with shortness of breath related to his underlying COPD which is relatively severe. Patient was recently in the hospital and he was discharged several days ago. His last evaluation in the hospital was on 09/[address] Garcia. He underwent a bronchoscopy and bronchoalveolar lavage/therapeutic airway suctioning. Cultures were basically nondiagnostic. Patient is known to have severe COPD, oxygen dependent, FEV1 is 36%. He has history of chronic tobacco dependence syndrome. History of right upper lobe fungal infection responded to Sporanox. History of DVT and pulmonary embolism, anticoagulated. And previous history of CVA involving basal ganglia. History of coronary artery disease and previous IA. History of avascular necrosis of the left humeral head. On presentation this time, patient has been complaining of cough, shortness of breath, cough is productive with yellow phlegm, had no fever, no chills, no hemoptysis, no chest pain. Chest x-ray was basically unremarkable. Chronic changes in the right upper lobe, no acute process was noted. CBC showed leukocytosis with WBC count of 14.3 INR was subtherapeutic at 1.7. Sodium 128 basic metabolic profile is normal. Lactic acid on admission was 2.4. Follow-up lactic acid was 1.5. Review of Systems Constitutional: Complains of weakness fatigue malaise no energy. Eyes: Denies blurred vision, no diplopia. ENT: Denies sore throat or earache. Respiratory: As noted in HPI, mostly cough and shortness of breath. Cardiovascular: Denies chest pain. Endocrine: No heat or cold intolerance. Has mostly generalized fatigue. Gastrointestinal: No nausea vomiting abdominal pain melena or hematemesis. Genitourinary: No dysuria frequency urgency hematuria. Musculoskeletal: Denies any musculoskeletal pain and no limitation in range of motion. Skin: Denies: rash Neurological: Denies headache blurred vision dizziness. 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 Last Myocardial Infarction Date:: unknown History of Any Multi-Drug Resistant Organisms: None Reported Past Surgical History: Orthopedic Surgery Additional Past Surgical History / Comment(s): metal plate left hand middle finger, right eye enucleation. Past Anesthesia/Blood Transfusion Reactions: No Reported Reaction Past Psychological History: Anxiety, Depression, Panic Disorder Smoking Status: Former smoker Past Alcohol Use History: Occasional Past Drug Use History: Marijuana - Past Family History Mother Family Medical History: Cancer Additional Family Medical History / Comment(s): Pt believes his Mom of Kidney Cancer Father Family Medical History: Cancer, COPD, Respiratory Disorder Additional Family Medical History / Comment(s): Melanoma Medications and Allergies Home Medications Medication Instructions Recorded Confirmed Type Fluticasone/Salmeterol 1 puff INHALATION RT-BID 04/29/19 09/22/19 History [Fluticasone-Salmeterol 232-14] amLODIPine [Norvasc] 10 mg PO DAILY 04/29/19 09/22/19 History Albuterol Inhaler [Ventolin Hfa 1 - 2 puff INHALATION RT-Q6H PRN 05/11/19 09/22/19 History Inhaler] Escitalopram [Lexapro] 10 mg PO DAILY #15 tab 05/15/19 09/22/19 Rx Nicotine 14Mg/24Hr Patch [Habitrol] 1 patch TRANSDERM DAILY 06/04/19 09/22/19 History Ipratropium-Albuterol Nebulize 3 ml INHALATION RT-QID 06/13/19 09/22/19 History [Duoneb 0.5 mg-3 mg/3 ml Soln] Gabapentin [Neurontin] 800 mg PO TID #12 tab 07/21/19 09/22/19 Rx Melatonin 10 mg PO HS 08/12/19 09/22/19 History Warfarin Sodium [Coumadin] 5 mg PO Q48H 09/12/19 09/22/19 History Atorvastatin [Lipitor] 10 mg PO DAILY #30 tab 09/15/19 09/22/19 Rx Doxycycline [Vibramycin] 100 mg PO BID 3 Days #6 capsule 09/15/19 09/22/19 Rx Montelukast [Singulair] 10 mg PO HS #30 tab 09/16/19 09/22/19 Rx traMADol HCL [Ultram] 50 mg PO Q6HR PRN 3 Days #12 tab 09/16/19 09/22/19 Rx Warfarin [Coumadin] 2.5 mg PO Q48H 09/22/19 09/22/19 History predniSONE See Taper PO DIRECTED 09/22/19 09/22/19 History Allergies Allergy/AdvReac Type Severity Reaction Status Date / Time tree nut [Nut] Allergy Unknown Dyspnea, Verified 09/22/19 18:14 Rash/Hives peanut [Peanut Butter] AdvReac Dyspnea, Verified 09/22/19 18:14 Rash/Hives Physical Exam Vitals: Vital Signs Temp Pulse Pulse Resp BP BP Pulse Ox 09/23/19 13:00 98.1 F 100 18 162/83 98 09/23/19 11:23 88 09/23/19 11:08 88 09/23/19 07:55 98.0 F 94 22 156/86 98 09/23/19 07:20 79 09/23/19 07:10 80 09/23/19 05:03 88 18 140/81 99 09/23/19 01:19 101 H 09/23/19 01:08 99 09/22/19 23:48 98.2 F 99 18 119/68 96 09/22/19 22:40 102 H 20 123/92 97 09/22/19 22:07 112 H 09/22/19 21:51 112 H 09/22/19 21:13 101 H 18 123/92 92 L 09/22/19 19:03 103 H 20 123/92 97 09/22/19 18:51 103 H 09/22/19 18:43 103 H 09/22/19 18:09 97.9 F 101 H 18 140/84 97 Intake and Output 09/22/19 09/23/1920 22:59 06:59 14:59 Other: # Voids 2 Weight 67.449 kg GENERAL EXAM: Revealed a 59-year-old white male in no distress. HEENT: PERRLA, EOMI, no icterus, no neck masses, no JVD, no stridor. CHEST: No chest wall deformity. Symmetrical expansion. LUNGS: Diminished breath sound bilaterally some wheezing on forced expiratory maneuver. CVS: Regular rate and rhythm, normal S1 and S2, no gallops, no murmurs, no rubs ABDOMEN: Soft, nontender. No hepatosplenomegaly, normal bowel sounds, no guarding or rigidity. EXTREMITIES: No clubbing, no edema, no cyanosis, 2+ pulses and upper and lower extremities. MUSCULOSKELETAL: Muscle strength and tone normal. SKIN: No rashes CENTRAL NERVOUS SYSTEM: Alert oriented 3 focal neurologic deficits. PSYCHIATRIC: Normal mood affect and normal mental status examination. Results - Laboratory Findings CBC and BMP: 09/22/19 18:28 09/22/19 18:28 PT/INR, D-dimer PT 16.6 sec (9.0-12.0) H 09/22/19 18:28 INR 1.7 (<1.2) H 09/22/19 18:28 Abnormal lab findings: Abnormal Labs 09/22/19 09/22/19 09/22/19 18:28 18:28 18:28 WBC 14.3 H Neutrophils # 13.3 H Lymphocytes # 0.5 L PT 16.6 H INR 1.7 H APTT 21.8 L Sodium 128 L Chloride 92 L Creatinine 0.43 L POC Glucose (mg/dL) Plasma Lactic Acid Gray Total Protein 5.9 L 09/22/19 09/23/19 09/23/19 18:28 07:55 12:19 WBC Neutrophils # Lymphocytes # PT INR APTT Sodium Chloride Creatinine POC Glucose (mg/dL) 172 H 187 H Plasma Lactic Acid Gray 2.4 H* Total Protein - Diagnostic Findings Chest x-ray: image reviewed (As noted in HPI) Assessment and Plan Assessment: Impression: Acute exacerbation of severe oxygen-dependent COPD, FEV1 of 36%. acute.Tracheobronchitis. History of fungal pneumonia requiring treatment with Sporanox for over 3 months. Type 2 diabetes History of DVT and pulmonary embolism History of CVA involving the basal ganglia in 2014. GERD without esophagitis. Coronary artery disease and previous IA. Avascular necrosis of left humeral head. Tobacco dependence syndrome. Recommendation: Agree with the present treatment plan including bronchodilators, steroids, antibiotics, Not much to be added from my perspective. Resume home meds. Including Coumadin. We'll continue to follow. Time with Patient: Greater than 30
[2019-09-23] MEDS: PANTOPRAZOLE 40 MG/10 ML VIAL IVP SCH (16:38)
[2019-09-23 17:11] LABS: Glucose,Whole Blood 135 mg/dL (75-99)
--- NOTE | 2019-09-23 17:41 | HP ---
HISTORY AND PHYSICAL DATE OF SERVICE: 09/23/2019 CHIEF COMPLAINTS: Shortness of breath and chest pain. HISTORY OF PRESENT ILLNESS: This 59-year-old gentleman with a past medical history of multiple medical problems, including COPD, history of lingular pneumonia, history of diabetes mellitus, type 2, history of CVA, TIA, history hypertension, history of DJD, history of pulmonary embolism, being followed by Dr. Urszula Carrasco in the outpatient setting, was recently admitted with shortness of breath and chest pain to [facility]. Cardiology saw the patient during that admission. Stress test was negative. Patient was discharged. Currently the patient is complaining of increasing shortness of breath and cough and sputum, and the patient came to [facility] and was admitted for further evaluation and treatment. The patient also had occasional yellow sputum. The patient also had chest pain which was felt in the anterior part of the chest. Pulmonary has evaluated the patient. Patient has been started on bronchodilators and steroids at this time. There is no history of any fever, rigor or chills. No history of headache, loss of consciousness, seizures. PAST MEDICAL HISTORY: 1. History of chest pain. 2. History of COPD. 3. CVA, TIA. 4. DVT. 5. Hypertension. 6. History of myocardial infarction. 7. Pneumonia. 8. Pulmonary embolism. 9. History of anxiety, depression, panic disorder. HOME MEDICATIONS: 1. Ultram 50 mg q.6 p.r.n. 2. Prednisone taper. 3. Coumadin 2.5 mg q.48 hours and 5 mg q.48 hours. 4. Norvasc 10 mg p.o. daily. 5. Habitrol daily. 6. Singulair 10 mg at bedtime. 7. Melatonin 10 mg at bedtime. 8. DuoNeb q.i.d. 9. Neurontin 800 mg q.i.d. 10.Fluticasone/salmeterol 1 puff b.i.d. 11.Lexapro 10 mg p.o. daily. 12.Vibramycin 100 mg p.o. b.i.d. 13.Lipitor 10 mg p.o. daily. 14.Ventolin HFA 1-2 puffs q.6 p.r.n. ALLERGIES: TREE NUTS, PEANUTS. FAMILY HISTORY: History of cancer, kidney cancer in the family. SOCIAL HISTORY: Previous history of smoking. No current smoking. Alcohol intake present. REVIEW OF SYSTEMS: ENT: No diminished hearing. No diminished vision. CARDIOVASCULAR SYSTEM: No angina, palpitations. RESPIRATORY SYSTEM: As mentioned earlier. GI: As mentioned earlier. : No dysuria or retention. NERVOUS SYSTEM: No numbness, weakness. ALLERGY/IMMUNOLOGY: No asthma, hayfever. MUSCULOSKELETAL: As mentioned earlier. HEMATOLOGY/ONCOLOGY: As mentioned earlier. ENDOCRINE: As mentioned earlier. CONSTITUTIONAL: As mentioned earlier. DERMATOLOGY: Negative. RHEUMATOLOGY: Negative. PSYCHIATRY: As mentioned earlier. PHYSICAL EXAMINATION: Patient alert and oriented x3. Pulse is 100, blood pressure 162/83, respiration 18, temperature 98.1, pulse ox 98% on 4 L. HEENT: Conjunctivae normal. NECK: No jugular venous distention. CARDIOVASCULAR SYSTEM: S1, S2 muffled. RESPIRATORY SYSTEM: Breath sounds diminished at the bases. Bilateral scattered rhonchi and crackles. Expiratory wheezing also present. ABDOMEN: Soft, non-tender. No mass palpable. LEGS: No edema. No swelling. NERVOUS SYSTEM: Higher functions as mentioned earlier. Moves all 4 limbs. No focal motor or sensory deficit. Active shingles in the left L1 segment. LYMPHATICS: No lymph node palpable in neck, axillae or groin. SKIN: No ulcer, rash, bleeding. JOINTS: No active deforming arthropathy. LABS: WBC 14.3, INR 1.7, sodium 128. Lactic acid 2.4. ASSESSMENT: 1. Chronic obstructive pulmonary disease, acute exacerbation, with acute purulent tracheobronchitis. 2. Chest pain, possibly musculoskeletal. 3. Recent negative stress test. 4. Increased white count. 5. Hyponatremia. 6. Elevated plasma lactic acid, possibly secondary to dehydration. 7. History of chronic obstructive pulmonary disease. 8. History of cerebrovascular accident, transient ischemic attack. 9. History of deep venous thrombosis. 10.History of pulmonary embolism. 11.Hypertension. 12.History of myocardial infarction. 13.History of pneumonia. 14.History of chronic hypoxic respiratory failure with oxygen 2 L nasal cannula. 15.History of shingles. 16.Active shingles in the left L1 segment. 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 18.Degenerative joint disease. 19.History of anxiety, depression, panic disorder. 20.History of nicotine dependence. 21.History of tetrahydrocannabinol. RECOMMENDATIONS AND DISCUSSION: In this 59-year-old gentleman who presented with multiple complex medical issues, we will monitor the patient closely, continue the current medications, continue with symptomatic treatment. Will optimize the bronchodilator treatment, antibiotics, steroids. Monitor blood sugars closely. Resume the home medications. Monitor PT, INR closely. I also recommend a course of Valtrex for the herpes zoster. Further recommendations to follow. A copy of this dictation is being forwarded to Dr. Urszula Carrasco, who is the primary physician. MMODL / IJN: [id number] /
[2019-09-23] MEDS ORDERED: WARFARIN 5 MG TAB PO SCH (18:00)
[2019-09-23 20:42] LABS: Glucose,Whole Blood 167 mg/dL (75-99)
[2019-09-23] MEDS: LEVOFLOXACIN 750MG-D5W PMX 750 MG in DEXTROSE/WATER 1 150ML.BAG IVPB SCH (21:13)
[2019-09-23] MEDS: MELATONIN 5 MG TABLET PO SCH (21:13)
[2019-09-23] MEDS: valACYclovir HCL 1,000 MG TABLET PO SCH (21:13)
[2019-09-23] MEDS: SYMBICORT 80-4.5 MCG INHALER INHALATION SCH (21:13)
[2019-09-23] MEDS: MONTELUKAST 10 MG TAB PO SCH (21:13)
[2019-09-24] MEDS: methylPREDNISolone SOD SUCCI 40 MG/ML 1 ML VIAL IV SCH ×4 (00:19→17:28)
[2019-09-24] MEDS: IPRATROPIUM-ALBUTEROL 3 ML NEB INHALATION PRN ×2 (00:46→23:09)
[2019-09-24] MEDS: traMADol 50 MG TAB PO PRN ×2 (03:20→11:04)
[2019-09-24 07:02] LABS: Glucose,Whole Blood 133 mg/dL (75-99)
[2019-09-24] MEDS: valACYclovir HCL 1,000 MG TABLET PO SCH ×2 (07:28→21:22)
[2019-09-24] MEDS: ESCITALOPRAM 10 MG TAB PO SCH (07:28)
[2019-09-24] MEDS: GABAPENTIN 400 MG CAP PO SCH ×3 (07:28→21:25)
[2019-09-24] MEDS: PANTOPRAZOLE 40 MG/10 ML VIAL IVP SCH (07:28)
[2019-09-24] MEDS: amLODIPine 10 MG TAB PO SCH (07:28)
[2019-09-24] MEDS: INSULIN ASPART (NovoLOG) 100 UNIT/ML VIAL SQ SCH ×4 (07:28→21:22)
[2019-09-24] MEDS: ATORVASTATIN 10 MG TAB PO SCH (07:28)
[2019-09-24] MEDS: NICOTINE 14MG/24HR PATCH TRANSDERM SCH (07:28)
[2019-09-24] MEDS: SYMBICORT 80-4.5 MCG INHALER INHALATION SCH ×2 (07:33→19:04)
[2019-09-24] MEDS: IPRATROPIUM-ALBUTEROL 3 ML NEB INHALATION SCH ×4 (07:33→19:03)
[2019-09-24 10:03] LABS: Basophils # (A) 0.1 k/uL (0-0.2); Basophils % (A) 0 %; Eosinophils % (A) 0 %; HGB 13.2 gm/dL (13.0-17.5); Lymphocytes # (A) 0.2 k/uL (1.0-4.8); Lymphocytes % (A) 1 %; MCH 33.6 pg (25.0-35.0); MCHC 32.9 g/dL (31.0-37.0); Macrocytosis Slight; Mean Platelet Volume 7.3; Monocytes # (A) 0.4 k/uL (0-1.0); Monocytes % (A) 2 %; Neutrophils # (A) 18.8 k/uL (1.3-7.7); Neutrophils % (A) 97 %; Platelet Count 215 k/uL (150-450); RBC 3.92 m/uL (4.30-5.90); RDW 13.1 % (11.5-15.5); WBC 19.5 k/uL (3.8-10.6)
[2019-09-24 10:14] LABS: INR 2.7 (<1.2); Prothrombin Time 26.8 sec (9.0-12.0)
[2019-09-24 10:18] LABS: African American GFR (CKD) >90 (>60 ml/min/1.73 sqM); Anion Gap 7 mmol/L; Blood Urea Nitrogen 21 mg/dL (9-20); Calcium 8.6 mg/dL (8.4-10.2); Carbon Dioxide 26 mmol/L (22-30); Chloride 101 mmol/L (98-107); Glucose 132 mg/dL (74-99); Non-African American GFR(CKD) >90 (>60 ml/min/1.73 sqM); Potassium 3.7 mmol/L (3.5-5.1); Sodium 134 mmol/L (137-145)
[2019-09-24 12:26] LABS: Glucose,Whole Blood 223 mg/dL (75-99)
--- NOTE | 2019-09-24 15:08 | P.PN ---
Subjective Progress Note Date: 09/24/19 Principal diagnosis: Acute exacerbation of COPD This is a 59-year-old white male very familiar to our service, patient is always in the ER and quite often gets admitted every time he presented with shortness of breath related to his underlying COPD which is relatively severe. Patient was recently in the hospital and he was discharged several days ago. His last evaluation in the hospital was on 09/[address] Garcia. He underwent a bronchoscopy and bronchoalveolar lavage/therapeutic airway suctioning. Cultures were basically nondiagnostic. Patient is known to have severe COPD, oxygen dependent, FEV1 is 36%. He has history of chronic tobacco dependence syndrome. History of right upper lobe fungal infection responded to Sporanox. History of DVT and pulmonary embolism, anticoagulated. And previous history of CVA involving basal ganglia. History of coronary artery disease and previous MO. History of avascular necrosis of the left humeral head. On presentation this time, patient has been complaining of cough, shortness of breath, cough is productive with yellow phlegm, had no fever, no chills, no hemoptysis, no chest pain. Chest x-ray was basically unremarkable. Chronic changes in the right upper lobe, no acute process was noted. CBC showed leukocytosis with WBC count of 14.3 INR was subtherapeutic at 1.7. Sodium 128 basic metabolic profile is normal. Lactic acid on admission was 2.4. Follow-up lactic acid was 1.5. Reevaluated today on 09/24/2019, patient is feeling a bit better, but continues to have intermittent cough and wheezing. No fever no chills no hemoptysis. Patient is definitely improved compared to last 24 hours according to him. Continues to have leukocytosis with WBC of 19.5 hemoglobin is 13.2 INR is 2.7 and electrolytes are basically normal. Objective - Vital Signs Vital signs: Vital Signs Temp 97.8 F 09/24/19 14:39 Pulse 101 H 09/24/19 14:39 Resp 16 09/24/19 14:39 BP 134/67 09/24/19 14:39 Pulse Ox 97 09/24/19 14:39 Intake & Output 09/23/19 09/24/19 09/24/19 18:59 06:59 18:59 Other: Voiding Method Toilet # Voids 2 3 3 # Bowel Movements 1 - Exam GENERAL EXAM: Revealed a 59-year-old white male in no distress. HEENT: PERRLA, EOMI, no icterus, no neck masses, no JVD, no stridor. CHEST: No chest wall deformity. Symmetrical expansion. LUNGS: Diminished breath sound bilaterally some wheezing on forced expiratory maneuver. CVS: Regular rate and rhythm, normal S1 and S2, no gallops, no murmurs, no rubs ABDOMEN: Soft, nontender. No hepatosplenomegaly, normal bowel sounds, no guarding or rigidity. EXTREMITIES: No clubbing, no edema, no cyanosis, 2+ pulses and upper and lower extremities. MUSCULOSKELETAL: Muscle strength and tone normal. SKIN: No rashes CENTRAL NERVOUS SYSTEM: Alert oriented 3 focal neurologic deficits. PSYCHIATRIC: Normal mood affect and normal mental status examination. - Labs CBC & Chem 7: 09/24/19 08:29 09/24/19 08:29 Labs: Abnormal Lab Results - Last 24 Hours (Table) 09/23/19 09/23/19 09/24/19 Range/Units 17:09 20:35 06:59 WBC (3.8-10.6) k/uL RBC (4.30-5.90) m/uL MCV (80.0-100.0) fL Neutrophils # (1.3-7.7) k/uL Lymphocytes # (1.0-4.8) k/uL PT (9.0-12.0) sec INR (<1.2) Sodium (137-145) mmol/L BUN (9-20) mg/dL Creatinine (0.66-1.25) mg/dL Glucose (74-99) mg/dL POC Glucose (mg/dL) 135 H 167 H 133 H (75-99) mg/dL 09/24/19 09/24/19 09/24/19 Range/Units 08:29 08:29 08:29 WBC 19.5 H (3.8-10.6) k/uL RBC 3.92 L (4.30-5.90) m/uL MCV 102.0 H (80.0-100.0) fL Neutrophils # 18.8 H (1.3-7.7) k/uL Lymphocytes # 0.2 L (1.0-4.8) k/uL PT 26.8 H (9.0-12.0) sec INR 2.7 H (<1.2) Sodium 134 L (137-145) mmol/L BUN 21 H (9-20) mg/dL Creatinine 0.52 L (0.66-1.25) mg/dL Glucose 132 H (74-99) mg/dL POC Glucose (mg/dL) (75-99) mg/dL 09/24/19 Range/Units 12:21 WBC (3.8-10.6) k/uL RBC (4.30-5.90) m/uL MCV (80.0-100.0) fL Neutrophils # (1.3-7.7) k/uL Lymphocytes # (1.0-4.8) k/uL PT (9.0-12.0) sec INR (<1.2) Sodium (137-145) mmol/L BUN (9-20) mg/dL Creatinine (0.66-1.25) mg/dL Glucose (74-99) mg/dL POC Glucose (mg/dL) 223 H (75-99) mg/dL Microbiology - Last 24 Hours (Table) 09/22/19 20:55 Blood Culture - Preliminary Blood No Growth after 24 hours Assessment and Plan Assessment: Impression: Acute exacerbation of severe oxygen-dependent COPD, FEV1 of 36%. acute.Tracheobronchitis. History of fungal pneumonia requiring treatment with Sporanox for over 3 months. Type 2 diabetes History of DVT and pulmonary embolism History of CVA involving the basal ganglia in 2014. GERD without esophagitis. Coronary artery disease and previous MO. Avascular necrosis of left humeral head. Tobacco dependence syndrome. Recommendation: Continue bronchodilators, steroids, antibiotics, Consider discharge planning in the next 24 hours Continue Coumadin. We'll continue to follow. Time with Patient: Less than 30
--- NOTE | 2019-09-24 17:05 | PN ---
PROGRESS NOTE DATE OF SERVICE: 09/24/2019 This 59-year-old gentleman who was admitted with COPD, acute exacerbation, and acute purulent tracheobronchitis is being closely monitored. No chest pain. No palpitations. No fever. PHYSICAL EXAMINATION: Alert and oriented x3. Pulse is 101, blood pressure 134/60, respirations 16, temperature 97.8, pulse ox 97% on room air. HEENT: Conjunctivae normal. NECK: No jugular venous distention. CARDIOVASCULAR SYSTEM: S1, S2 muffled. RESPIRATORY SYSTEM: Breath sounds diminished at the bases. Bilateral scattered rhonchi and crackles. ABDOMEN: Soft, non-tender. LEGS: No edema. No swelling. NERVOUS SYSTEM: No focal deficit. LABS: WBC 19.4, hemoglobin 13.2. INR is 2.7. ASSESSMENT: 1. Chronic obstructive pulmonary disease, acute exacerbation, with acute purulent tracheobronchitis. 2. Chest pain, possibly musculoskeletal. 3. Recent negative cardiac stress test. 4. Increased white count. 5. Hyponatremia. 6. Elevated plasma lactic acid, possibly secondary dehydration. 7. History of chronic obstructive pulmonary disease. 8. History of cerebrovascular accident, transient ischemic attack. 9. History of deep vein thrombosis. 10.History of pulmonary embolism. 11.Hypertension. 12.History of myocardial infarction. 13.Coumadin monitoring. 14.History of pneumonia. 15.History of chronic hypoxic respiratory failure, on home oxygen at 2 L nasal cannula. 16.History of shingles. 17.Active shingles, possibly in the left L1 segment posteriorly. 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 19.Degenerative joint disease. 20.History of anxiety, depression, panic disorder. 21.History of nicotine dependence. 22.History of tetrahydrocannabinol. RECOMMENDATIONS AND DISCUSSION: I recommend to continue current medications, continue with the monitoring, symptomatic treatment. Otherwise, continue with the bronchodilators. Continue with the antibiotics. Continue with symptomatic treatment. school social worker to evaluate the home situation. Otherwise, prognosis guarded. Resume the rest of the medications. Guarded prognosis. Further recommendations to follow. MMODL / IJN: [id number] /
[2019-09-24 17:18] LABS: Glucose,Whole Blood 124 mg/dL (75-99)
[2019-09-24] MEDS ORDERED: WARFARIN 2.5 MG TAB PO SCH (18:00)
[2019-09-24 20:41] LABS: Glucose,Whole Blood 156 mg/dL (75-99)
[2019-09-24] MEDS: HYDROcodone/APAP 5-325MG 1 EACH TAB PO PRN (20:46)
[2019-09-24] MEDS: LEVOFLOXACIN 750MG-D5W PMX 750 MG in DEXTROSE/WATER 1 150ML.BAG IVPB SCH (21:21)
[2019-09-24] MEDS: MELATONIN 5 MG TABLET PO SCH (21:22)
[2019-09-24] MEDS: MONTELUKAST 10 MG TAB PO SCH (21:22)
[2019-09-25] MEDS: methylPREDNISolone SOD SUCCI 40 MG/ML 1 ML VIAL IV SCH ×5 (00:24→23:34)
[2019-09-25] MEDS: IPRATROPIUM-ALBUTEROL 3 ML NEB INHALATION PRN ×2 (03:15→23:46)
[2019-09-25 06:54] LABS: Glucose,Whole Blood 160 mg/dL (75-99)
[2019-09-25] MEDS: PANTOPRAZOLE 40 MG TABLET PO SCH (07:43)
[2019-09-25] MEDS: NICOTINE 14MG/24HR PATCH TRANSDERM SCH (07:43)
[2019-09-25] MEDS: GABAPENTIN 400 MG CAP PO SCH ×3 (07:43→20:42)
[2019-09-25] MEDS: valACYclovir HCL 1,000 MG TABLET PO SCH ×2 (07:43→20:41)
[2019-09-25] MEDS: ATORVASTATIN 10 MG TAB PO SCH (07:43)
[2019-09-25] MEDS: HYDROcodone/APAP 5-325MG 1 EACH TAB PO PRN ×3 (07:44→20:43)
[2019-09-25] MEDS: ESCITALOPRAM 10 MG TAB PO SCH (07:44)
[2019-09-25] MEDS: amLODIPine 10 MG TAB PO SCH (07:44)
[2019-09-25] MEDS: INSULIN ASPART (NovoLOG) 100 UNIT/ML VIAL SQ SCH ×4 (07:45→20:40)
[2019-09-25] MEDS: SYMBICORT 80-4.5 MCG INHALER INHALATION SCH ×2 (08:46→20:03)
[2019-09-25] MEDS: IPRATROPIUM-ALBUTEROL 3 ML NEB INHALATION SCH ×4 (08:46→20:03)
[2019-09-25 09:16] LABS: INR 4.6 (<1.2); Prothrombin Time 46.2 sec (9.0-12.0)
[2019-09-25 09:30] LABS: Chloride 95 mmol/L (98-107)
[2019-09-25 09:32] LABS: African American GFR (CKD) >90 (>60 ml/min/1.73 sqM); Anion Gap 4 mmol/L; Blood Urea Nitrogen 18 mg/dL (9-20); Calcium 8.5 mg/dL (8.4-10.2); Carbon Dioxide 33 mmol/L (22-30); Glucose 171 mg/dL (74-99); Non-African American GFR(CKD) >90 (>60 ml/min/1.73 sqM); Potassium 3.9 mmol/L (3.5-5.1); Sodium 132 mmol/L (137-145)
[2019-09-25 09:40] LABS: HCT 39.7 % (39.0-53.0); HGB 12.7 gm/dL (13.0-17.5); MCH 32.3 pg (25.0-35.0); MCHC 32.1 g/dL (31.0-37.0); MCV 100.6 fL (80.0-100.0); Mean Platelet Volume 6.9; Platelet Count 226 k/uL (150-450); RBC 3.95 m/uL (4.30-5.90); RDW 13.1 % (11.5-15.5); WBC 15.4 k/uL (3.8-10.6)
[2019-09-25 11:06] LABS: Lymphocytes # (M) 0.15 k/uL (1.0-4.8); Metamyelocytes # (M) 0.15 k/uL (0); Metamyelocytes % 1 %; Monocytes # (M) 0.46 k/uL (0-1.0); Neutrophils # (M) 14.94 k/uL (1.3-7.7); Neutrophils % (M) 97 %; Nucleated Red Blood Cells 0 /100 WBC (0-0); Total Cells Counted 200
[2019-09-25 11:25] LABS: Glucose,Whole Blood 172 mg/dL (75-99)
--- NOTE | 2019-09-25 13:40 | P.PN ---
Subjective Progress Note Date: 09/25/19 Principal diagnosis: Acute exacerbation of chronic obstructive pulmonary disease This is a 59-year-old white male very familiar to our service, patient is always in the ER and quite often gets admitted every time he presented with shortness of breath related to his underlying COPD which is relatively severe. Patient was recently in the hospital and he was discharged several days ago. His last evaluation in the hospital was on 09/[address] Garcia. He underwent a bronchoscopy and bronchoalveolar lavage/therapeutic airway suctioning. Cultures were basically nondiagnostic. Patient is known to have severe COPD, oxygen dependent, FEV1 is 36%. He has history of chronic tobacco dependence syndrome. History of right upper lobe fungal infection responded to Sporanox. History of DVT and pulmonary embolism, anticoagulated. And previous history of CVA involving basal ganglia. History of coronary artery disease and previous NE. History of avascular necrosis of the left humeral head. On presentation this time, patient has been complaining of cough, shortness of breath, cough is productive with yellow phlegm, had no fever, no chills, no hemoptysis, no chest pain. Chest x-ray was basically unremarkable. Chronic changes in the right upper lobe, no acute process was noted. CBC showed leukocytosis with WBC count of 14.3 INR was subtherapeutic at 1.7. Sodium 128 basic metabolic profile is normal. Lactic acid on admission was 2.4. Follow-up lactic acid was 1.5. Reevaluated today on 09/24/2019, patient is feeling a bit better, but continues to have intermittent cough and wheezing. No fever no chills no hemoptysis. Patient is definitely improved compared to last 24 hours according to him. Continues to have leukocytosis with WBC of 19.5 hemoglobin is 13.2 INR is 2.7 and electrolytes are basically normal. The patient is seen today for very 2019 in follow-up on the regular medical floor awake and alert in no acute distress. Breathing is back to his baseline. Maintaining O2 saturations in the mid 90s on 4 L/m per nasal cannula. He is afebrile. Blood culture reveals no growth. White count 15.4. Hemoglobin 12.7. INR was 4.6. Creatinine 0.41. He is continued on DuoNeb inhalations, Symbicort, Levaquin, IV Solu-Medrol. NicoDerm patch is in place. Objective - Vital Signs Vital signs: Vital Signs Temp 98.2 F 09/25/19 12:51 Pulse 106 H 09/25/19 12:51 Resp 16 09/25/19 12:51 BP 152/81 09/25/19 12:51 Pulse Ox 95 09/25/19 12:51 Intake & Output 09/24/19 09/25/19 09/25/19 18:59 06:59 18:59 Other: Voiding Method Toilet Toilet # Voids 3 1 - Exam GENERAL EXAM: Alert, oriented 59-year-old male patient, on 4 L nasal cannula, in no distress. HEENT: Prosthetic eye no icterus, no neck masses, no JVD, no stridor. CHEST: No chest wall deformity. Symmetrical expansion. LUNGS: Diminished breath sound bilaterally some wheezing on forced expiratory maneuver. CVS: Regular rate and rhythm, normal S1 and S2, no gallops, no murmurs, no rubs ABDOMEN: Soft, nontender. No hepatosplenomegaly, normal bowel sounds, no guarding or rigidity. EXTREMITIES: No clubbing, no edema, no cyanosis, 2+ pulses and upper and lower extremities. MUSCULOSKELETAL: Muscle strength and tone normal. SKIN: No rashes CENTRAL NERVOUS SYSTEM: Alert oriented 3 focal neurologic deficits. PSYCHIATRIC: Normal mood affect and normal mental status examination. - Labs CBC & Chem 7: 09/25/19 08:51 09/25/19 08:51 Labs: Abnormal Lab Results - Last 24 Hours (Table) 09/24/19 09/24/19 09/25/19 Range/Units 17:11 20:38 06:53 WBC (3.8-10.6) k/uL RBC (4.30-5.90) m/uL Hgb (13.0-17.5) gm/dL MCV (80.0-100.0) fL Neutrophils # (Manual) (1.3-7.7) k/uL Lymphocytes # (Manual) (1.0-4.8) k/uL Metamyelocytes # (Man) (0) k/uL PT (9.0-12.0) sec INR (<1.2) Sodium (137-145) mmol/L Chloride (98-107) mmol/L Carbon Dioxide (22-30) mmol/L Creatinine (0.66-1.25) mg/dL Glucose (74-99) mg/dL POC Glucose (mg/dL) 124 H 156 H 160 H (75-99) mg/dL 09/25/19 09/25/19 09/25/19 Range/Units 08:51 08:51 08:51 WBC 15.4 H (3.8-10.6) k/uL RBC 3.95 L (4.30-5.90) m/uL Hgb 12.7 L (13.0-17.5) gm/dL MCV 100.6 H (80.0-100.0) fL Neutrophils # (Manual) 14.94 H (1.3-7.7) k/uL Lymphocytes # (Manual) 0.15 L (1.0-4.8) k/uL Metamyelocytes # (Man) 0.15 H (0) k/uL PT 46.2 H (9.0-12.0) sec INR 4.6 H (<1.2) Sodium 132 L (137-145) mmol/L Chloride 95 L (98-107) mmol/L Carbon Dioxide 33 H (22-30) mmol/L Creatinine 0.41 L (0.66-1.25) mg/dL Glucose 171 H (74-99) mg/dL POC Glucose (mg/dL) (75-99) mg/dL 09/25/19 Range/Units 11:23 WBC (3.8-10.6) k/uL RBC (4.30-5.90) m/uL Hgb (13.0-17.5) gm/dL MCV (80.0-100.0) fL Neutrophils # (Manual) (1.3-7.7) k/uL Lymphocytes # (Manual) (1.0-4.8) k/uL Metamyelocytes # (Man) (0) k/uL PT (9.0-12.0) sec INR (<1.2) Sodium (137-145) mmol/L Chloride (98-107) mmol/L Carbon Dioxide (22-30) mmol/L Creatinine (0.66-1.25) mg/dL Glucose (74-99) mg/dL POC Glucose (mg/dL) 172 H (75-99) mg/dL Microbiology - Last 24 Hours (Table) 09/22/19 20:55 Blood Culture - Preliminary Blood No Growth after 48 hours Assessment and Plan Assessment: Impression: Acute exacerbation of severe oxygen-dependent COPD, FEV1 of 36%. acute.Tracheobronchitis. History of fungal pneumonia requiring treatment with Sporanox for over 3 months. Type 2 diabetes History of DVT and pulmonary embolism History of CVA involving the basal ganglia in 2014. GERD without esophagitis. Coronary artery disease and previous NE. Avascular necrosis of left humeral head. Tobacco dependence syndrome. Recommendation: The patient was seen and evaluated by Dr. Vogt. He is cleared for discharge from the pulmonary standpoint. He is again educated regarding the importance of complete smoking cessation. The importance of medication compliance and follow- ups as scheduled. Social work and case management are involved SANDHYA on his multiple readmissions. He should follow-up in our office in 1-2 weeks' time. He is encouraged to call sooner with any recurrence of symptoms or other questions or concerns. I, the cosigning physician, performed a history & physical examination of the patient. Lungs sounds are clear, diminished. Maintaining good O2 saturations in the 90s on 4 L/m per nasal cannula. I discussed the assessment and plan of care with my nurse practitioner, Crissy Bland. I attest to the above note as dictated by her.
[2019-09-25 16:47] LABS: Glucose,Whole Blood 136 mg/dL (75-99)
[2019-09-25] MEDS ORDERED: WARFARIN 0.5 MG TAB PO ONE (18:00)
--- NOTE | 2019-09-25 18:19 | PN ---
PROGRESS NOTE DATE OF SERVICE: 09/25/2019 This 59-year-old gentleman admitted with COPD, acute exacerbation, also had chest pain. The patient is being closely monitored. The patient is on IV steroids as well as broad- spectrum antibiotics and bronchodilators. Dr. Vogt is following the patient closely. No chest pain. No palpitations. No fever. PHYSICAL EXAMINATION: VITAL SIGNS: Pulse is 106, blood pressure 130/81, respiration 16, temperature 98.2, pulse ox 94% on 4 L. HEENT: Conjunctivae normal. NECK: No jugular venous distention. CARDIOVASCULAR SYSTEM: S1, S2 muffled. RESPIRATORY SYSTEM: Breath sounds diminished at the bases. A few scattered rhonchi and crackles. Expiratory wheezing also present. ABDOMEN: Soft, non-tender. LEGS: No edema. No swelling. NERVOUS SYSTEM: No focal deficit. LABS: WBC 15.5, hemoglobin 12.7. INR is 4.6. Sodium 132. Other labs are noted. ASSESSMENT: 1. Chronic obstructive pulmonary disease, acute exacerbation, with acute purulent tracheobronchitis. 2. Chest pain, possibly musculoskeletal. 3. Coumadin coagulopathy. 4. History of recent negative stress test. 5. Increased white count. 6. Hyponatremia. 7. Elevated plasma lactic acid, possibly secondary to dehydration. 8. History of chronic obstructive pulmonary disease. 9. History of cerebrovascular accident, transient ischemic attack. 10.History of deep vein thrombosis. 11.History of pulmonary embolism. 12.Hypertension. 13.History of myocardial infarction. 14.Coumadin monitoring. 15.History of pneumonia. 16.History of chronic hypoxic respiratory failure, on home oxygen at 3 L nasal cannula. 17.History of shingles. 18.History of active shingles on the left L1 segment posteriorly. 19.History of basal ganglia hemorrhage and right arm weakness. 20.History of degenerative joint disease. 21.History of anxiety, depression, panic disorder. 22.History of nicotine dependence. 23.History of tetrahydrocannabinol. RECOMMENDATIONS AND DISCUSSION: I recommend to continue current medications, continue with the monitoring, symptomatic treatment. Otherwise, taper the steroids. Closely follow with Pulmonary. Increase ambulation. Guarded prognosis. Symptomatic treatment will be provided. Repeat labs. Hold the Coumadin at this time. Further recommendations to follow. MMODL / IJN: [id number] /
[2019-09-25 20:30] LABS: Glucose,Whole Blood 134 mg/dL (75-99)
[2019-09-25] MEDS: LEVOFLOXACIN 750MG-D5W PMX 750 MG in DEXTROSE/WATER 1 150ML.BAG IVPB SCH (20:38)
[2019-09-25] MEDS: MELATONIN 5 MG TABLET PO SCH (20:41)
[2019-09-25] MEDS: MONTELUKAST 10 MG TAB PO SCH (20:41)
[2019-09-25] MEDS: TEMAZEPAM 15 MG CAP PO PRN (20:43)
[2019-09-26 02:28] LABS: Glucose,Whole Blood 165 mg/dL (75-99)
[2019-09-26] MEDS: IPRATROPIUM-ALBUTEROL 3 ML NEB INHALATION PRN (04:23)
[2019-09-26] MEDS: HYDROcodone/APAP 5-325MG 1 EACH TAB PO PRN ×3 (04:26→21:33)
[2019-09-26] MEDS: methylPREDNISolone SOD SUCCI 40 MG/ML 1 ML VIAL IV SCH ×4 (05:06→23:38)
[2019-09-26 06:52] LABS: Glucose,Whole Blood 137 mg/dL (75-99)
[2019-09-26] MEDS: PANTOPRAZOLE 40 MG TABLET PO SCH (07:40)
[2019-09-26] MEDS: ATORVASTATIN 10 MG TAB PO SCH (07:40)
[2019-09-26] MEDS: amLODIPine 10 MG TAB PO SCH (07:40)
[2019-09-26] MEDS: ESCITALOPRAM 10 MG TAB PO SCH (07:40)
[2019-09-26] MEDS: GABAPENTIN 400 MG CAP PO SCH ×3 (07:40→21:32)
[2019-09-26] MEDS: NICOTINE 14MG/24HR PATCH TRANSDERM SCH (07:40)
[2019-09-26] MEDS: valACYclovir HCL 1,000 MG TABLET PO SCH ×2 (07:41→21:31)
[2019-09-26] MEDS: INSULIN ASPART (NovoLOG) 100 UNIT/ML VIAL SQ SCH ×4 (07:44→21:33)
[2019-09-26 08:21] LABS: INR 3.9 (<1.2); Prothrombin Time 38.5 sec (9.0-12.0)
[2019-09-26 08:24] LABS: Basophils # (A) 0.1 k/uL (0-0.2); Basophils % (A) 1 %; Eosinophils % (A) 0 %; HCT 39.5 % (39.0-53.0); HGB 12.8 gm/dL (13.0-17.5); Lymphocytes # (A) 0.1 k/uL (1.0-4.8); Lymphocytes % (A) 1 %; MCH 32.3 pg (25.0-35.0); MCHC 32.3 g/dL (31.0-37.0); MCV 99.9 fL (80.0-100.0); Mean Platelet Volume 6.9; Monocytes # (A) 0.4 k/uL (0-1.0); Monocytes % (A) 3 %; Neutrophils # (A) 14.8 k/uL (1.3-7.7); Neutrophils % (A) 96 %; Platelet Count 281 k/uL (150-450); RBC 3.96 m/uL (4.30-5.90); RDW 12.9 % (11.5-15.5); WBC 15.5 k/uL (3.8-10.6)
[2019-09-26 08:31] LABS: African American GFR (CKD) >90 (>60 ml/min/1.73 sqM); Anion Gap 3 mmol/L; Blood Urea Nitrogen 21 mg/dL (9-20); Calcium 8.6 mg/dL (8.4-10.2); Carbon Dioxide 35 mmol/L (22-30); Chloride 94 mmol/L (98-107); Glucose 125 mg/dL (74-99); Non-African American GFR(CKD) >90 (>60 ml/min/1.73 sqM); Potassium 4.1 mmol/L (3.5-5.1); Sodium 132 mmol/L (137-145)
[2019-09-26] MEDS: IPRATROPIUM-ALBUTEROL 3 ML NEB INHALATION SCH ×4 (08:57→21:00)
[2019-09-26] MEDS: SYMBICORT 80-4.5 MCG INHALER INHALATION SCH ×2 (08:57→20:59)
[2019-09-26 11:51] LABS: Glucose,Whole Blood 136 mg/dL (75-99)
[2019-09-26 16:55] LABS: Glucose,Whole Blood 126 mg/dL (75-99)
--- NOTE | 2019-09-26 17:59 | PN ---
PROGRESS NOTE . DATE OF SERVICE: 09/26/2019 This 59-year-old gentleman, was admitted with COPD acute exacerbation, bronchodilators and IV steroids. No chest pain. No palpitations. No fever. The patient still complaining of shortness of breath. PHYSICAL EXAMINATION: Alert and oriented x3. Pulse is 109, blood pressure 130/70, respirations 18, temp 98.1, pulse ox 98% on 3 L. HEENT: Conjunctivae normal. NECK: No JVD. CARDIOVASCULAR: S1, S2 muffled. RESPIRATION: Breath sounds diminished in the bases. A few scattered rhonchi and crackles. ABDOMEN is soft, nontender. NERVOUS SYSTEM: No focal deficits. LAB STUDIES: WBC 15.2, hemoglobin 12.8. ASSESSMENT: 1. Chronic obstructive pulmonary disease acute exacerbation with acute purulent tracheobronchitis. 2. Chest pain possibly musculoskeletal. 3. Coumadin coagulopathy. 4. History of recent negative stress test. 5. Increased WBC. 6. Hyponatremia. 7. Elevated plasma lactic acid, possibly secondary to dehydration. 8. Chronic obstructive pulmonary disease. 9. History of cerebrovascular accident, transient ischemic attack. 10.History of deep vein thrombosis. 11.History of pulmonary embolus. 12.Hypertension. 13.History of myocardial infarction. 14.Coumadin monitoring. 15.History of pneumonia. 16.History of chronic hypoxic respiratory failure on home oxygen 3 L nasal cannula. 17.History of shingles. 18.Active shingles in L1, left L1 posteriorly. 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 20.History of degenerative joint disease. 21.History of anxiety, depression, panic disorder. 22.History of nicotine dependence. 23.History of THC. RECOMMENDATIONS AND DISCUSSION: Recommend to continue current medications, monitoring and symptomatic treatment. Continue bronchodilators. Continue with IV steroids. Otherwise, we will increase ambulation. Closely monitor. Further recommendations to follow. MMODL / IJN: [id number] /
[2019-09-26] MEDS ORDERED: WARFARIN 0.5 MG TAB PO ONE (18:00)
[2019-09-26 20:23] LABS: Glucose,Whole Blood 125 mg/dL (75-99)
[2019-09-26] MEDS: LEVOFLOXACIN 750MG-D5W PMX 750 MG in DEXTROSE/WATER 1 150ML.BAG IVPB SCH (21:32)
[2019-09-26] MEDS: MELATONIN 5 MG TABLET PO SCH (21:32)
[2019-09-26] MEDS: MONTELUKAST 10 MG TAB PO SCH (21:32)
[2019-09-26] MEDS: TEMAZEPAM 15 MG CAP PO PRN (21:49)
[2019-09-27] MEDS: IPRATROPIUM-ALBUTEROL 3 ML NEB INHALATION PRN ×2 (00:20→05:00)
[2019-09-27 05:03] VITALS: BP 149/85; RESP 22; TEMP 97.1
[2019-09-27] MEDS: methylPREDNISolone SOD SUCCI 40 MG/ML 1 ML VIAL IV SCH ×2 (05:03→11:00)
[2019-09-27] MEDS: HYDROcodone/APAP 5-325MG 1 EACH TAB PO PRN (05:28)
[2019-09-27 07:26] LABS: Glucose,Whole Blood 144 mg/dL (75-99)
[2019-09-27] MEDS: NICOTINE 14MG/24HR PATCH TRANSDERM SCH (07:55)
[2019-09-27] MEDS: valACYclovir HCL 1,000 MG TABLET PO SCH (07:55)
[2019-09-27] MEDS: PANTOPRAZOLE 40 MG TABLET PO SCH (07:55)
[2019-09-27] MEDS: ATORVASTATIN 10 MG TAB PO SCH (07:55)
[2019-09-27] MEDS: INSULIN ASPART (NovoLOG) 100 UNIT/ML VIAL SQ SCH ×2 (07:56→11:51)
[2019-09-27] MEDS: ESCITALOPRAM 10 MG TAB PO SCH (07:56)
[2019-09-27] MEDS: amLODIPine 10 MG TAB PO SCH (07:56)
[2019-09-27] MEDS: traMADol 50 MG TAB PO PRN ×2 (07:58→13:50)
[2019-09-27] MEDS: GABAPENTIN 400 MG CAP PO SCH (07:59)
[2019-09-27] MEDS: IPRATROPIUM-ALBUTEROL 3 ML NEB INHALATION SCH ×2 (08:59→12:06)
[2019-09-27] MEDS: SYMBICORT 80-4.5 MCG INHALER INHALATION SCH (08:59)
[2019-09-27 09:09] LABS: INR 2.9 (<1.2); Prothrombin Time 28.1 sec (9.0-12.0)
[2019-09-27 09:16] VITALS: PULSE 96
[2019-09-27 11:52] LABS: Glucose,Whole Blood 125 mg/dL (75-99)
[2019-09-27 12:17] LABS: Glucose,Whole Blood 121 mg/dL (75-99)
[2019-09-27] MEDS ORDERED: WARFARIN 2 MG TAB PO ONE (18:00)
--- NOTE | 2019-09-28 08:24 | DS ---
DISCHARGE SUMMARY DATE OF SERVICE: 09/27/2019 FINAL DIAGNOSES: 1. Chronic obstructive pulmonary disease acute exacerbation with acute purulent tracheobronchitis. 2. Chest pain, possibly musculoskeletal, improved. 3. Coumadin coagulopathy. 4. History of recent negative cardiac stress test. 5. Increased WBC. 6. Hyponatremia. 7. Elevated plasma lactic acid, present on admission possibly secondary to dehydration. 8. Chronic obstructive pulmonary disease. 9. History of cerebrovascular accident, transient ischemic attack. 10.History of deep venous thrombosis. 11.History of pulmonary embolus. 12.Hypertension. 13.History of myocardial infarction. 14.Coumadin monitoring. 15.History of pneumonia. 16.History of chronic hypoxic respiratory failure on home oxygen 3 L nasal cannula. 17.History of shingles. 18.Active shingles at L1 posteriorly possibly. 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 20.History of degenerative joint disease. 21.History of anxiety, depression, panic disorder. 22.History of nicotine dependence. 23.History of THC. DISCHARGE DISPOSITION: The patient will be discharged in stable condition with guarded prognosis. HISTORY OF PRESENT ILLNESS: This 59-year-old gentleman with a past medical history of multiple medical problems being followed by Dr. Urszula Carrasco in the outpatient setting was admitted with COPD acute exacerbation as well as multiple other medical problems. Treated with bronchodilators, antibiotics and IV steroids and also Pulmonary was also consulted. The patient improved significantly. On exam, vitals are stable. CARDIOVASCULAR: S1, S2 muffled. RESPIRATORY: A few scattered rhonchi and crackles. ABDOMEN: Soft. NERVOUS SYSTEM: No focal deficits. DISCHARGE ADVICE: 1. Diet is cardiac. 2. Activity limited until followup. 3. Follow up with Dr. Urszula Carrasco in 2 to 3 days. 4. Follow up with Dr. Guardado for pain management. 5. Follow up with Pulmonary as recommended. Medications are: 1. Coumadin 5 mg p.o. q.48 hours and 2.5 mg q.48 hours. Monitor PT, INR closely with Dr. Urszula Carrasco. 2. DuoNeb q.i.d. and p.r.n. 3. Fluticasone salmeterol 1 puff b.i.d. 4. Habitrol 14. No smoking. 5. Melatonin 10 mg at bedtime. 6. Norvasc 10 mg p.o. daily. 7. Prednisone taper 40 mg daily for 3 days, 30 for 3 days, 20 for 3 days and 10 for 3 days. 8. Albuterol p.r.n. 9. Levaquin 750 mg p.o. b.i.d. for 4 days. 10.Lexapro 10 mg p.o. daily. 11.Lipitor 10 mg p.o. daily. 12.Neurontin 800 mg p.o. t.i.d. 13.Singulair 10 mg at bedtime. 14.Ultram 50 mg q.6 p.r.n. 15.Valtrex 1000 mg p.o. b.i.d. for 5 days. Once again, the patient will be discharged in stable condition with guarded prognosis. MMODL / HANSAN: [id number] /
== END 2019-09-27 14:27 | disposition home health service (06) | DRG 191 ==
LOC: EC 17:58 → 6NMEDSUR 19:41 → OBSVTOIN 09-24 15:05
PROVIDERS: ADMIT Internal Medicine; ATTEND Internal Medicine
DX: J44.1 Chronic obstructive pulmonary disease with (acute) exacerbation (principal); J96.11 Chronic respiratory failure with hypoxia; E87.1 Hypo-osmolality and hyponatremia; M87.9 Osteonecrosis, unspecified; J44.0 Chronic obstructive pulmonary disease with (acute) lower respiratory infection; E11.9 Type 2 diabetes mellitus without complications; M19.90 Unspecified osteoarthritis, unspecified site; I10 Essential (primary) hypertension; F41.0 Panic disorder [episodic paroxysmal anxiety]; F41.9 Anxiety disorder, unspecified; F32.9 Major depressive disorder, single episode, unspecified; F17.210 Nicotine dependence, cigarettes, uncomplicated; B02.9 Zoster without complications; J20.9 Acute bronchitis, unspecified; I69.2 Sequelae of other nontraumatic intracranial hemorrhage; I25.10 Atherosclerotic heart disease of native coronary artery without angina pectoris; K21.9 Gastro-esophageal reflux disease without esophagitis; E86.0 Dehydration; M75.01 Adhesive capsulitis of right shoulder; R79.1 Abnormal coagulation profile; D72.829 Elevated white blood cell count, unspecified; T45.515A Adverse effect of anticoagulants, initial encounter; I25.2 Old myocardial infarction; Z71.6 Tobacco abuse counseling; Z79.01 Long term (current) use of anticoagulants; Z79.899 Other long term (current) drug therapy; Z99.81 Dependence on supplemental oxygen; Z87.01 Personal history of pneumonia (recurrent); Z86.711 Personal history of pulmonary embolism; Z86.718 Personal history of other venous thrombosis and embolism; Z87.81 Personal history of (healed) traumatic fracture; Z87.2 Personal history of diseases of the skin and subcutaneous tissue; Z98.890 Other specified postprocedural states; Z90.01 Acquired absence of eye; Z91.018 Allergy to other foods; Z91.010 Allergy to peanuts; Z80.51 Family history of malignant neoplasm of kidney; Z82.5 Family history of asthma and other chronic lower respiratory diseases; Z80.8 Family history of malignant neoplasm of other organs or systems
CPT/HCPCS: 36415; 71046; 80048; 80053; 83605; 85025; 85610; 85730; 87040; 87070; 87205; 93005; 94640; 94760; 96361; 96365; 96366; 96367; 96375; 96376; 99285

== ENCOUNTER 2019-09-29 12:50 | Observation (INO) | payer OTHER ==
[2019-09-29] MEDS ORDERED: ASPIRIN 81 MG PO STA (12:58)
--- NOTE | 2019-09-29 13:11 | ED ---
General Adult HPI - General Chief complaint: Chest Pain Stated complaint: Chest pain Time Seen by Provider: 09/29/19 12:52 Source: patient Mode of arrival: EMS Limitations: no limitations - History of Present Illness Initial comments: Dictation was produced using [employer] dictation software. please excuse any grammatical, word or spelling errors. Chief Complaint: 59-year-old male with multiple comorbidities presents with chest pain shortness of breath. History of Present Illness: An is a 59-year-old male he has multiple comorbidities who presents today with chest pain and shortness of breath. Patient was brought in by EMS. Patient has multiple comorbidities including coronary artery disease, devious thrombosis, pulmonary embolus. He is on Coumadin therapy. Patient states he's been having chest pain for the last several months. States that he lives with chest pain that's rated as a 5 on a 10 scale. Patient states that upon waking up this morning his pain was a 7. He also complains of shortness of breath. Patient lives at home by himself. He was concerned about his symptoms and called EMS. EMS provided aspirin and brought to the emergency department. Patient does not recall when his last cardiac catheterization was. The ROS documented in this emergency department record has been reviewed and confirmed by me. Those systems with pertinent positive or negative responses have been documented in the HPI. All other systems are other negative and/or noncontributory. PHYSICAL EXAM: General Impression: Alert and oriented x3, not in acute distress HEENT: Normocephalic atraumatic, extra-ocular movements intact, pupils equal and reactive to light bilaterally, mucous membranes moist. Cardiovascular: Tachycardic, no murmurs Chest: Mild slung wheezing more apparent to the right posterior lung brown Abdomen: Bowel sounds present, abdomen soft, non-tender, non-distended, no organomegaly Musculoskeletal: Pulses present and equal in all extremities, no peripheral edema Motor: no focal deficits noted Neurological: CN II-XII grossly intact, no focal motor or sensory deficits noted Skin: Intact with no visualized rashes Psych: Normal affect and mood ED course: 59-year-old male presents with chest pain and shortness of breath. Vital signs upon arrival shows heart rate of 112, 94% on room air, rest vital signs within acceptable limits. Patient's well-known to emergency department. Patient currently on Coumadin therapy. Last year he was diagnosed with pulmonary embolus. Review shows that patient last had a cardiac stress test in 09/14/2019. Chart review was performed and findings are negative. He does report compliance with his medications. Chart review shows that patient is well-known to emergency department. He has had multiple visitations already this year for the same complaint. Evaluated by cardiology, pulmonology. He has had negative stress test. Patient most recently had a CT angios in May last year be demonstrating subtle emboli. He has been on appropriate therapy since then. EKG interpretation: Ventricular rate 111, sinus tachycardia,. Interval 126, QS 76, QTC 448. No IA prolongation, no QTC prolongation, no ST or T-wave changes noted. EKG compared to 09/22/2019 showing no changes. Overall, this EKG is unremarkable Return evaluation obtained. Leukocytosis of 19.0. Slightly secondary to stress leukocytosis. Patient has history of elevated white blood cell count chronically. INR is 2.2. Patient is on Coumadin therapy. Sodium is 128. Rest of labs are grossly unremarkable. First set cardiac enzymes negative. Chest x- ray is nonacute. Patient will be admitted for serial troponins and cardiology consultation. Patient given intravenous fluids for hyponatremia. Patient's chest pain is atypical with typical features. Given his comorbidities I believe he would benefit from observation admission for serial troponins and further medical and cardiac monitoring. Patient had received aspirin by EMS. - Related Data Home Medications Medication Instructions Recorded Confirmed Fluticasone/Salmeterol 1 puff INHALATION RT-BID 04/29/19 09/22/19 [Fluticasone-Salmeterol 232-14] amLODIPine [Norvasc] 10 mg PO DAILY 04/29/19 09/22/19 Albuterol Inhaler [Ventolin Hfa 1 - 2 puff INHALATION RT-Q6H PRN 05/11/19 09/22/19 Inhaler] Nicotine 14Mg/24Hr Patch [Habitrol] 1 patch TRANSDERM DAILY 06/04/19 09/22/19 Ipratropium-Albuterol Nebulize 3 ml INHALATION RT-QID 06/13/19 09/22/19 [Duoneb 0.5 mg-3 mg/3 ml Soln] Melatonin 10 mg PO HS 08/12/19 09/22/19 Warfarin Sodium [Coumadin] 5 mg PO Q48H 09/12/19 09/22/19 Warfarin [Coumadin] 2.5 mg PO Q48H 09/22/19 09/22/19 predniSONE See Taper PO DIRECTED 09/22/19 09/22/19 Previous Rx's Medication Instructions Recorded Escitalopram [Lexapro] 10 mg PO DAILY #15 tab 05/15/19 Gabapentin [Neurontin] 800 mg PO TID #12 tab 07/21/19 Atorvastatin [Lipitor] 10 mg PO DAILY #30 tab 09/15/19 Montelukast [Singulair] 10 mg PO HS #30 tab 09/16/19 traMADol HCL [Ultram] 50 mg PO Q6HR PRN 3 Days #12 tab 09/16/19 Levofloxacin 750Mg-D5w Pmx 750 mg IVPB HS #5 bag 09/27/19 [Levaquin 750Mg-D5w Pmx] valACYclovir HCL [Valtrex] 1,000 mg PO BID #10 tablet 09/27/19 Allergies Allergy/AdvReac Type Severity Reaction Status Date / Time tree nut [Nut] Allergy Unknown Dyspnea, Verified 09/22/19 18:14 Rash/Hives peanut [Peanut Butter] AdvReac Dyspnea, Verified 09/22/19 18:14 Rash/Hives Review of Systems ROS Statement: Those systems with pertinent positive or pertinent negative responses have been documented in the HPI. ROS Other: All systems not noted in ROS Statement are negative. 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 Last Myocardial Infarction Date:: unknown History of Any Multi-Drug Resistant Organisms: None Reported Past Surgical History: Orthopedic Surgery Additional Past Surgical History / Comment(s): metal plate left hand middle fing er, right eye enucleation. Past Anesthesia/Blood Transfusion Reactions: No Reported Reaction Past Psychological History: Anxiety, Depression, Panic Disorder Smoking Status: Current every day smoker Past Alcohol Use History: Occasional Past Drug Use History: Marijuana - Past Family History Mother Family Medical History: Cancer Additional Family Medical History / Comment(s): Pt believes his Mom of Kidney Cancer Father Family Medical History: Cancer, COPD, Respiratory Disorder Additional Family Medical History / Comment(s): Melanoma General Exam Limitations: no limitations Course Vital Signs 09/29/19 09/29/19 09/29/19 12:50 12:58 13:03 Temperature 98.9 F Pulse Rate 112 H 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 [ 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 ] Respiratory 16 16 Rate Blood Pressure 131/90 O2 Sat by Pulse 94 L Oximetry Medical Decision Making - Lab Data Result diagrams: 09/29/19 12:59 09/29/19 12:59 Lab Results 09/29/19 09/29/19 09/29/19 Range/Units 12:59 12:59 12:59 WBC 19.0 H (3.8-10.6) k/uL RBC 4.90 (4.30-5.90) m/uL Hgb 16.0 D (13.0-17.5) gm/dL Hct 48.2 (39.0-53.0) % MCV 98.3 (80.0-100.0) fL MCH 32.7 (25.0-35.0) pg MCHC 33.3 (31.0-37.0) g/dL RDW 13.4 (11.5-15.5) % Plt Count 237 (150-450) k/uL Neutrophils % 97 % Lymphocytes % 0 % Monocytes % 2 % Eosinophils % 1 % Basophils % 1 % Neutrophils # 18.3 H (1.3-7.7) k/uL Lymphocytes # 0.0 L (1.0-4.8) k/uL Monocytes # 0.4 (0-1.0) k/uL Eosinophils # 0.1 (0-0.7) k/uL Basophils # 0.2 (0-0.2) k/uL PT (9.0-12.0) sec INR (<1.2) APTT (22.0-30.0) sec Sodium 128 L (137-145) mmol/L Potassium 4.6 (3.5-5.1) mmol/L Chloride 92 L (98-107) mmol/L Carbon Dioxide 30 (22-30) mmol/L Anion Gap 6 mmol/L BUN 21 H (9-20) mg/dL Creatinine 0.56 L (0.66-1.25) mg/dL Est GFR (CKD-EPI)AfAm >90 (>60 ml/min/1.73 sqM) Est GFR (CKD-EPI)NonAf >90 (>60 ml/min/1.73 sqM) Glucose 100 H (74-99) mg/dL Calcium 9.3 (8.4-10.2) mg/dL Magnesium 2.1 (1.6-2.3) mg/dL Total Bilirubin 0.8 (0.2-1.3) mg/dL AST 39 (17-59) U/L ALT 62 H (4-49) U/L Alkaline Phosphatase 65 (38-126) U/L Troponin I (0.000-0.034) ng/mL NT-Pro-B Natriuret Pep 121 pg/mL Total Protein 6.3 (6.3-8.2) g/dL Albumin 4.0 (3.5-5.0) g/dL 09/29/19 09/29/19 Range/Units 12:59 12:59 WBC (3.8-10.6) k/uL RBC (4.30-5.90) m/uL Hgb (13.0-17.5) gm/dL Hct (39.0-53.0) % MCV (80.0-100.0) fL MCH (25.0-35.0) pg MCHC (31.0-37.0) g/dL RDW (11.5-15.5) % Plt Count (150-450) k/uL Neutrophils % % Lymphocytes % % Monocytes % % Eosinophils % % Basophils % % Neutrophils # (1.3-7.7) k/uL Lymphocytes # (1.0-4.8) k/uL Monocytes # (0-1.0) k/uL Eosinophils # (0-0.7) k/uL Basophils # (0-0.2) k/uL PT 21.1 H (9.0-12.0) sec INR 2.2 H (<1.2) APTT 27.0 (22.0-30.0) sec Sodium (137-145) mmol/L Potassium (3.5-5.1) mmol/L Chloride (98-107) mmol/L Carbon Dioxide (22-30) mmol/L Anion Gap mmol/L BUN (9-20) mg/dL Creatinine (0.66-1.25) mg/dL Est GFR (CKD-EPI)AfAm (>60 ml/min/1.73 sqM) Est GFR (CKD-EPI)NonAf (>60 ml/min/1.73 sqM) Glucose (74-99) mg/dL Calcium (8.4-10.2) mg/dL Magnesium (1.6-2.3) mg/dL Total Bilirubin (0.2-1.3) mg/dL AST (17-59) U/L ALT (4-49) U/L Alkaline Phosphatase (38-126) U/L Troponin I <0.012 (0.000-0.034) ng/mL NT-Pro-B Natriuret Pep pg/mL Total Protein (6.3-8.2) g/dL Albumin (3.5-5.0) g/dL Disposition Clinical Impression: Chest pain Disposition: ADMITTED IP TO THIS [facility] Condition: Fair Referrals: Urszula Carrasco MD [Primary Care Provider] - 1-2 days Decision Time: 13:55
[2019-09-29 13:15] LABS: Basophils # (A) 0.2 k/uL (0-0.2); Basophils % (A) 1 %; Eosinophils # (A) 0.1 k/uL (0-0.7); Eosinophils % (A) 1 %; HCT 48.2 % (39.0-53.0); Lymphocytes % (A) 0 %; MCH 32.7 pg (25.0-35.0); MCHC 33.3 g/dL (31.0-37.0); MCV 98.3 fL (80.0-100.0); Mean Platelet Volume 6.7; Monocytes # (A) 0.4 k/uL (0-1.0); Monocytes % (A) 2 %; Neutrophils # (A) 18.3 k/uL (1.3-7.7); Neutrophils % (A) 97 %; Platelet Count 237 k/uL (150-450); RDW 13.4 % (11.5-15.5)
[2019-09-29 13:18] LABS: ALT 62 U/L (4-49); AST 39 U/L (17-59); African American GFR (CKD) >90 (>60 ml/min/1.73 sqM); Alkaline Phosphatase 65 U/L (38-126); Anion Gap 6 mmol/L; Blood Urea Nitrogen 21 mg/dL (9-20); Calcium 9.3 mg/dL (8.4-10.2); Carbon Dioxide 30 mmol/L (22-30); Chloride 92 mmol/L (98-107); Glucose 100 mg/dL (74-99); Magnesium 2.1 mg/dL (1.6-2.3); Non-African American GFR(CKD) >90 (>60 ml/min/1.73 sqM); Potassium 4.6 mmol/L (3.5-5.1); Sodium 128 mmol/L (137-145); Total Bilirubin 0.8 mg/dL (0.2-1.3); Total Protein 6.3 g/dL (6.3-8.2)
[2019-09-29 13:19] LABS: INR 2.2 (<1.2); Prothrombin Time 21.1 sec (9.0-12.0)
--- NOTE | 2019-09-29 13:20 | XR ---
EXAMINATION TYPE: XR chest 2V DATE OF EXAM: 09/29/2019 COMPARISON: NONE HISTORY: Shortness of breath TECHNIQUE: Frontal and lateral views of the chest are obtained. FINDINGS: Scattered senescent parenchymal changes noted. Hyperinflation compatible with COPD. Nodular density right upper lobe is unchanged. No new nodules seen or infiltrate noted. Heart size is stable. Mediastinal structures are stable and grossly unremarkable. No evidence for hilar prominence. Degenerative changes dorsal spine. IMPRESSION: 1. Nodular density right upper lobe is unchanged. No new nodules seen or infiltrate noted.
[2019-09-29] MEDS ORDERED: NITROGLYCERIN SL TABS 0.4 MG TAB SUBLINGUAL PRN (13:52)
[2019-09-29] MEDS ORDERED: SODIUM CHLORIDE 0.9% 1,000 ML IV STA (13:54)
[2019-09-29] MEDS ORDERED: WARFARIN 5 MG TAB PO SCH ×3 (14:00→18:00)
[2019-09-29] MEDS ORDERED: TEMAZEPAM 15 MG CAP PO PRN (15:38)
[2019-09-29] MEDS ORDERED: predniSONE 10 MG TAB PO SCH (15:45)
[2019-09-29] MEDS: NICOTINE 14MG/24HR PATCH TRANSDERM SCH (17:11)
[2019-09-29] MEDS: GABAPENTIN 400 MG CAP PO SCH ×2 (17:11→22:07)
[2019-09-29] MEDS: ATORVASTATIN 10 MG TAB PO SCH (17:11)
--- NOTE | 2019-09-29 18:09 | HP ---
HISTORY AND PHYSICAL DATE OF SERVICE: 09/29/2019 CHIEF COMPLAINTS: Chest pain, shortness of breath and tachycardia. HISTORY OF PRESENT ILLNESS: This 59-year-old gentleman with a past medical history of multiple medical problems, including COPD, history of DVT, history of hypertension, myocardial infarction, pulmonary embolism, being followed by Dr. Urszula Carrasco in the outpatient setting, was recently admitted to [facility]. The patient was having COPD, acute exacerbation, treated empirically with antibiotics. Patient improved significantly. Patient went home. Currently the patient is again complaining of shortness of breath and sputum as well as chest pain, and the patient came to [facility] ER and was admitted for evaluation and treatment. The chest x-ray, which was reviewed personally by me and done in the ER, showed nodular density in the right upper lobe which is unchanged at this time. Otherwise, the EKG showed sinus tachycardia with PACs. The patient was admitted for further evaluation and treatment. There is no history of any fever, rigor or chills. No history of headache, loss of consciousness, seizures at this time. PAST MEDICAL HISTORY: History of COPD, history of CVA, TIA, history of DVT, history of hypertension, myocardial infarction, pulmonary embolism, history of anxiety, depression, panic disorder. MEDICATIONS: 1. Singulair 10 mg at bedtime. 2. Coumadin 2.5 mg q.48 hours and 5 mg q.48 hours. 3. Melatonin 10 mg at bedtime. 4. Ventolin 1-2 puffs q.6 p.r.n. 5. Valtrex 1000 mg p.o. b.i.d. 6. Prednisone taper. 7. Norvasc 10 mg p.o. daily. 8. Habitrol 14 daily. 9. DuoNeb q.i.d. and p.r.n. 10.Neurontin 800 mg t.i.d. 11.Fluticasone salmeterol 1 puff b.i.d. 12.Lexapro 10 mg p.o. daily. 13.Lipitor 10 mg p.o. daily. ALLERGIES: TREE NUTS and PEANUTS. FAMILY HISTORY: History of kidney cancer in the mother. SOCIAL HISTORY: History of smoking, continued ongoing. Occasional alcohol intake. REVIEW OF SYSTEMS: ENT: Diminished hearing. Diminished vision. CARDIOVASCULAR SYSTEM: As mentioned earlier. RESPIRATORY SYSTEM: As mentioned earlier. GI: No nausea, vomiting. : No dysuria or retention. NERVOUS SYSTEM: No numbness, weakness. ALLERGY/IMMUNOLOGY: As mentioned earlier. MUSCULOSKELETAL: As mentioned earlier. HEMATOLOGY/ONCOLOGY: No history of anemia. RHEUMATOLOGY: Negative. PSYCHIATRY: As mentioned earlier. CONSTITUTIONAL: As mentioned earlier. PHYSICAL EXAMINATION: The patient is alert and oriented x3. Pulse is 98, blood pressure 132/74, respiration 16, temperature 98.9, pulse ox 94% on room air. Heart rate was 112. HEENT: Conjunctivae normal. Oral mucosa moist. NECK: No jugular venous distention. No carotid bruit. No lymph node enlargement. Breathing efforts increased. CARDIOVASCULAR SYSTEM: S1, S2 muffled. Tachycardic. No S3. No S4. RESPIRATORY SYSTEM: Breath sounds diminished at the bases. Bilateral scattered rhonchi and crackles. Expiratory wheezing also present. ABDOMEN: Soft, non-tender. LEGS: No edema. No swelling. NERVOUS SYSTEM: No focal deficit. LABS: Labs at this time show WBC 19, hemoglobin 16, and INR is 2.2. Sodium 128, potassium 4.6. ASSESSMENT: 1. Chronic obstructive pulmonary disease, acute exacerbation, with acute purulent tracheobronchitis. 2. Chest pain with tachycardia. 3. Hyponatremia. 4. Increased white count. 5. History of cerebrovascular accident, transient ischemic attack. 6. History of recent negative stress test. 7. History of deep venous thrombosis. 8. Hypertension. 9. History of myocardial infarction. 10.History of pulmonary embolism. 11.History of respiratory disorders. 12.History of chronic hypoxic respiratory failure, on home oxygen at 2 L nasal cannula. 13.History of cerebrovascular accident, basal ganglia hemorrhage. 14.History of right frozen shoulder. 15.Chronic chest pains. 16.Anxiety, depression, panic disorder. RECOMMENDATIONS AND DISCUSSION: In this 59-year-old gentleman who presented with multiple complex medical issues, we will monitor the patient closely, continue the current medications, continue with symptomatic treatment. Otherwise at this time I recommend continuing the rest of the home medications. Currently the patient also has chest pain as well as tachycardia. EKG showed PACs also. We recommend cardiology evaluation. Resume the rest of the medications. Prognosis guarded. Further recommendations to follow. Please note that patient recently had a negative stress test. However, overall prognosis is extremely guarded because of multiple complex medical issues. Discussed with the patient, who understands and agrees. Further recommendations to follow. A copy of this dictation is being forwarded to Dr. Urszula Carrasco, who is the primary physician. MMODL / IJN: [id number] /
[2019-09-29] MEDS: IPRATROPIUM-ALBUTEROL 3 ML NEB INHALATION SCH ×2 (18:18→19:47)
[2019-09-29] MEDS: SYMBICORT 160-4.5 MCG INHALER INHALATION SCH (19:48)
[2019-09-29] MEDS ORDERED: MELATONIN 5 MG TABLET PO SCH (21:00)
[2019-09-29] MEDS ORDERED: MONTELUKAST 10 MG TAB PO SCH (21:00)
[2019-09-29] MEDS: valACYclovir HCL 1,000 MG TABLET PO SCH (22:07)
[2019-09-29] MEDS: ALPRAZolam 0.25 MG TAB PO PRN (22:08)
[2019-09-29] MEDS: ACETAMINOPHEN TAB 500 MG TAB PO PRN (22:08)
[2019-09-29] MEDS: ALBUTEROL NEBULIZED 2.5 MG/3 ML INHALATION PRN (23:41)
[2019-09-30] MEDS: ALBUTEROL NEBULIZED 2.5 MG/3 ML INHALATION PRN (03:09)
[2019-09-30] MEDS: ACETAMINOPHEN TAB 500 MG TAB PO PRN (06:14)
[2019-09-30] MEDS: ALPRAZolam 0.25 MG TAB PO PRN (06:14)
[2019-09-30 07:05] LABS: Basophils # (A) 0.1 k/uL (0-0.2); Basophils % (A) 0 %; Eosinophils # (A) 0.1 k/uL (0-0.7); Eosinophils % (A) 1 %; HCT 44.5 % (39.0-53.0); Lymphocytes # (A) 0.5 k/uL (1.0-4.8); Lymphocytes % (A) 3 %; MCH 33.6 pg (25.0-35.0); MCHC 33.7 g/dL (31.0-37.0); MCV 99.6 fL (80.0-100.0); Mean Platelet Volume 6.7; Monocytes # (A) 0.2 k/uL (0-1.0); Monocytes % (A) 1 %; Neutrophils # (A) 14.6 k/uL (1.3-7.7); Neutrophils % (A) 94 %; Platelet Count 186 k/uL (150-450); RBC 4.47 m/uL (4.30-5.90); RDW 13.7 % (11.5-15.5); WBC 15.5 k/uL (3.8-10.6)
[2019-09-30 07:13] LABS: INR 2.1 (<1.2); Prothrombin Time 20.2 sec (9.0-12.0)
[2019-09-30 07:17] LABS: African American GFR (CKD) >90 (>60 ml/min/1.73 sqM); Anion Gap 3 mmol/L; Blood Urea Nitrogen 25 mg/dL (9-20); Calcium 8.8 mg/dL (8.4-10.2); Carbon Dioxide 33 mmol/L (22-30); Chloride 97 mmol/L (98-107); Cholesterol 150 mg/dL (<200); Glucose 79 mg/dL (74-99); HDL Cholesterol 82 mg/dL (40-60); LDL Cholesterol,Calculated 48 mg/dL (0-99); Non-African American GFR(CKD) >90 (>60 ml/min/1.73 sqM); Potassium 4.2 mmol/L (3.5-5.1); Sodium 133 mmol/L (137-145); Triglycerides 101 mg/dL (<150)
[2019-09-30] MEDS: IPRATROPIUM-ALBUTEROL 3 ML NEB INHALATION SCH ×2 (07:40→12:00)
[2019-09-30] MEDS: SYMBICORT 160-4.5 MCG INHALER INHALATION SCH (07:40)
[2019-09-30 08:12] VITALS: BP 128/76; TEMP 98.1
[2019-09-30] MEDS: ATORVASTATIN 10 MG TAB PO SCH (09:00)
[2019-09-30] MEDS ORDERED: METOPROLOL TARTRATE 25 MG TAB PO SCH (09:00)
[2019-09-30] MEDS ORDERED: amLODIPine 10 MG TAB PO SCH (09:00)
[2019-09-30] MEDS ORDERED: ESCITALOPRAM 10 MG TAB PO SCH (09:00)
[2019-09-30] MEDS ORDERED: amLODIPine 5 MG TAB PO SCH (09:00)
[2019-09-30] MEDS ORDERED: predniSONE 10 MG TAB PO SCH (09:00)
[2019-09-30] MEDS ORDERED: ASPIRIN 81 MG PO SCH (09:00)
[2019-09-30] MEDS ORDERED: ASPIRIN 325 MG TAB PO SCH (09:00)
[2019-09-30] MEDS: NICOTINE 14MG/24HR PATCH TRANSDERM SCH (09:01)
[2019-09-30] MEDS: valACYclovir HCL 1,000 MG TABLET PO SCH (09:01)
[2019-09-30] MEDS: GABAPENTIN 400 MG CAP PO SCH (09:01)
--- NOTE | 2019-09-30 10:16 | CONS ---
CONSULTATION Junior Mallory is a 59-year-old gentleman a patient who was recently in [facility] in August of this year about 2 to 3 weeks ago and had a dobutamine stress test. Dobutamine stress test did not reveal any ischemia. This was a good test with a heart rate of 156 beats per minute. The patient was discharged home and after that he has not been very compliant with medications. He has some multiple comorbid conditions. He is not very compliant with medications. He smokes heavily. He uses marijuana. Drinks alcohol. He has a diagnosis of a DVT, hypertension, and hyperlipidemia. He is here with these symptoms and then complained of chest discomfort. The quality of pain is atypical. The laboratory data revealed the troponins are unremarkable. He is resting comfortably without symptoms. PAST MEDICAL HISTORY: Past medical history is remarkable for COPD, smoking, a questionable history of CVA in the past, history of DVT and pulmonary embolism. He has no history of any documented CAD. A recent dobutamine stress test that was negative. He has anxiety and some depression. MEDICATIONS: Medications at home include Singulair, Coumadin, Ventolin, prednisone tapering, Norvasc and Lexapro, Lipitor 10 mg daily. PHYSICAL EXAMINATION: On examination, blood pressure is 130/70, pulse rate is about 100 per minute regular. HEENT: Unremarkable. Fundus was not examined by me. Neck is supple. There is no JVD. I do not hear a carotid bruit. Heart exam reveals S1, S2 heard normally. No significant murmurs. Lungs reveal scattered rhonchi. Diminished air entry. Abdomen is soft, nontender. Lower extremities reveal diminished pulses. No edema. Central nervous system is normal. IMPRESSION: 1. Atypical chest pain. 2. History of smoking and chronic obstructive pulmonary disease. 3. History of deep venous thrombosis and pulmonary embolism in the past on Coumadin. 4. Recent negative dobutamine stress test. RECOMMENDATIONS: I am recommending that the patient from a cardiac standpoint can be discharged and no further intervention is necessary. EKG does not reveal any acute changes. I am recommending that we will place him on a small dose of metoprolol tartrate 25 mg daily, decrease aspirin to 81 mg daily, decrease amlodipine to 5 mg daily, and he can be discharged on these medications and follow up with his primary care physician. MMODL / IJN: [id number] /
[2019-09-30 12:03] VITALS: RESP 20
[2019-09-30 12:18] VITALS: PULSE 104
[2019-09-30] MEDS ORDERED: WARFARIN 2.5 MG TAB PO SCH (18:00)
--- NOTE | 2019-09-30 22:10 | DS ---
DISCHARGE SUMMARY DATE OF SERVICE: 09/30/2019. FINAL DIAGNOSES: 1. Chronic obstructive pulmonary disease acute exacerbation with acute purulent tracheobronchitis. 2. Chest pain with tachycardia. 3. Hyponatremia. 4. Increased WBC. 5. History of cerebrovascular accident/transient ischemic attack. 6. History of recent negative stress test. 7. History of deep vein thrombosis. 8. Hypertension. 9. History of myocardial infarction. 10.History of pulmonary embolus. 11.History of respiratory disorder. 12.History of chronic hypoxic respiratory failure on home oxygen at 2 L nasal cannula. 13.History of cerebrovascular accident , basal ganglia hemorrhage. 14.History of right frozen shoulder. 15.History of chronic chest pain. 16.Anxiety, depression, panic disorder. DISCHARGE DISPOSITION: The patient will be discharged in stable condition with guarded prognosis. HISTORY OF PRESENT ILLNESS: This 59-year-old gentleman with a past medical history of multiple medical problems being followed by Dr. Urszula Carrasco in the outpatient setting, was admitted with COPD acute exacerbation as well as acute purulent tracheobronchitis. Patient treated with bronchodilators, steroids and antibiotics. Patient improved significantly. Cardiology saw the patient. On exam, vitals are stable. Cardiovascular: S1, S2. Abdomen soft. Nervous system: No focal deficits. DISCHARGE ADVICE AND MEDICATIONS: 1. Diet is cardiac diet. 2. Activity limited until followup. 3. Follow up with Dr. Urszula Carrasco in 2-3 days. 4. Follow up with Pulmonary as recommended. DISCHARGE MEDICATIONS: As follows: 1. Coumadin 5 mg q.48 hours and 2.5 mg q.48 hours. 2. DuoNeb q.i.d. and p.r.n. 3. Fluticasone salmeterol 1 puff b.i.d. 4. Habitrol 14 days. 5. No smoking. 6. Melatonin 10 mg q.h.s. 7. Norvasc 10 mg p.o. daily. 8. Prednisone taper, that is 40 mg daily for 3 days, 30 for 3 days, 20 for 3 days, 10 for 3 days. Follow the previous protocol. 9. Albuterol p.r.n. 10.Aspirin 81 mg p.o. daily. 11.Lexapro 10 mg p.o. daily. 12.Lipitor 10 mg p.o. daily. 13.Lopressor 25 mg p.o. b.i.d. 14.Neurontin 800 mg p.o. t.i.d. 15.Singulair 10 mg q.h.s. 16.Tylenol p.r.n. 17.Valtrex 1000 mg p.o. b.i.d. Finish the previous course. Once again, the patient is being discharged in stable condition with guarded prognosis. MMODL / IJN: [id number] /
== END 2019-09-30 15:36 | disposition home or self-care (01) ==
LOC: EC 12:50 → 1SOBS 13:52
PROVIDERS: ADMIT Hospitalist; ATTEND Hospitalist
DX: J44.1 Chronic obstructive pulmonary disease with (acute) exacerbation (principal); R00.0 Tachycardia, unspecified; E87.1 Hypo-osmolality and hyponatremia; Z86.73 Personal history of transient ischemic attack (TIA), and cerebral infarction without residual deficits; F17.200 Nicotine dependence, unspecified, uncomplicated; Z86.711 Personal history of pulmonary embolism; F12.90 Cannabis use, unspecified, uncomplicated; I10 Essential (primary) hypertension; E78.5 Hyperlipidemia, unspecified; R21 Rash and other nonspecific skin eruption; F41.0 Panic disorder [episodic paroxysmal anxiety]; F32.9 Major depressive disorder, single episode, unspecified; I25.2 Old myocardial infarction; M75.01 Adhesive capsulitis of right shoulder; I25.10 Atherosclerotic heart disease of native coronary artery without angina pectoris; D72.829 Elevated white blood cell count, unspecified; Z86.718 Personal history of other venous thrombosis and embolism; Z99.81 Dependence on supplemental oxygen; J96.11 Chronic respiratory failure with hypoxia; Z79.899 Other long term (current) drug therapy; Z79.891 Long term (current) use of opiate analgesic; Z79.2 Long term (current) use of antibiotics; Z79.01 Long term (current) use of anticoagulants; Z79.52 Long term (current) use of systemic steroids; Z91.018 Allergy to other foods; Z91.010 Allergy to peanuts; Z80.51 Family history of malignant neoplasm of kidney; Z82.5 Family history of asthma and other chronic lower respiratory diseases; Z80.8 Family history of malignant neoplasm of other organs or systems
CPT/HCPCS: 93005 ×2; 96360; 99285; 36415; 94640 ×4; 83880; 80061; 80053; 80048; 83735; 84484 ×2; 85025 ×2; 85610 ×2; 85730; 71046; G0378 ×2; S4990 ×2; J7512

== ENCOUNTER 2019-10-20 13:43 | Inpatient (IN) | payer OTHER ==
[2019-10-20] MEDS ORDERED: MAGNESIUM SULFATE-D5W PMX 1 GM in DEXTROSE/WATER 1 100ML.BAG IVPB STA (13:53)
[2019-10-20] MEDS ORDERED: SODIUM CHLORIDE 0.9% 1,000 ML IV STA (13:53)
[2019-10-20] MEDS ORDERED: IPRATROPIUM-ALBUTEROL 3 ML NEB INHALATION STA ×2 (13:53→17:09)
--- NOTE | 2019-10-20 14:05 | ED ---
SOB HPI - General Chief Complaint: Shortness of Breath Stated Complaint: Difficulty breathing Time Seen by Provider: 10/20/19 13:43 Source: patient, EMS, RN notes reviewed, old records reviewed Mode of arrival: EMS Limitations: no limitations - History of Present Illness Initial Comments: This is a 59-year-old male history of COPD who states he was cleaning his apartment today using Lanoxin, stridor was started developing dyspnea. Got very severe EMS was called he was given 2 updrafts in route with some improvement. He denies any fevers chills nausea vomiting sweats just profound shortness of breath. MD Complaint: shortness of breath - Related Data Home Medications Medication Instructions Recorded Confirmed Fluticasone/Salmeterol 1 puff INHALATION RT-BID 04/29/19 09/29/19 [Fluticasone-Salmeterol 232-14] amLODIPine [Norvasc] 10 mg PO DAILY 04/29/19 09/29/19 Albuterol Inhaler [Ventolin Hfa 1 - 2 puff INHALATION RT-Q6H PRN 05/11/19 09/29/19 Inhaler] Nicotine 14Mg/24Hr Patch [Habitrol] 1 patch TRANSDERM DAILY 06/04/19 09/29/19 Ipratropium-Albuterol Nebulize 3 ml INHALATION RT-QID 06/13/19 09/29/19 [Duoneb 0.5 mg-3 mg/3 ml Soln] Melatonin 10 mg PO HS 08/12/19 09/29/19 Warfarin Sodium [Coumadin] 5 mg PO Q48H 09/12/19 09/29/19 Warfarin [Coumadin] 2.5 mg PO Q48H 09/22/19 09/29/19 predniSONE See Taper PO DIRECTED 09/22/19 09/29/19 Previous Rx's Medication Instructions Recorded Escitalopram [Lexapro] 10 mg PO DAILY #15 tab 05/15/19 Gabapentin [Neurontin] 800 mg PO TID #12 tab 07/21/19 Atorvastatin [Lipitor] 10 mg PO DAILY #30 tab 09/15/19 Montelukast [Singulair] 10 mg PO HS #30 tab 09/16/19 valACYclovir HCL [Valtrex] 1,000 mg PO BID #10 tablet 09/27/19 Acetaminophen Tab [Tylenol] 500 mg PO Q6HR PRN tab 09/30/19 Aspirin 81 mg PO DAILY #30 chew 09/30/19 Metoprolol Tartrate [Lopressor] 25 mg PO BID #60 tab 09/30/19 Allergies Allergy/AdvReac Type Severity Reaction Status Date / Time tree nut [Nut] Allergy Unknown Dyspnea, Verified 09/29/19 14:56 Rash/Hives peanut [Peanut Butter] AdvReac Dyspnea, Verified 09/29/19 14:56 Rash/Hives Review of Systems ROS Statement: Those systems with pertinent positive or pertinent negative responses have been documented in the HPI. ROS Other: All systems not noted in ROS Statement are negative. 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 Last Myocardial Infarction Date:: unknown History of Any Multi-Drug Resistant Organisms: None Reported Past Surgical History: Orthopedic Surgery Additional Past Surgical History / Comment(s): metal plate left hand middle finger, right eye enucleation. Past Anesthesia/Blood Transfusion Reactions: No Reported Reaction Past Psychological History: Anxiety, Depression, Panic Disorder Smoking Status: Current every day smoker Past Alcohol Use History: Occasional Past Drug Use History: Marijuana - Past Family History Mother Family Medical History: Cancer Additional Family Medical History / Comment(s): Pt believes his Mom of Kidney Cancer Father Family Medical History: Cancer, COPD, Respiratory Disorder Additional Family Medical History / Comment(s): Melanoma General Exam - General Exam Comments Initial Comments: This is a well-developed well-nourished awake alert oriented times female Limitations: no limitations General appearance: alert, anxious, in distress Head exam: Present: atraumatic, normocephalic, normal inspection Eye exam: Present: normal appearance, PERRL, EOMI. Absent: scleral icterus, conjunctival injection, periorbital swelling ENT exam: Present: normal exam, mucous membranes moist Neck exam: Present: normal inspection, full ROM, other (No stridor Josie or bruits). Absent: tenderness, meningismus, lymphadenopathy Respiratory exam: Present: respiratory distress, wheezes, accessory muscle use, decreased breath sounds. Absent: rales, rhonchi, stridor Cardiovascular Exam: Present: normal rhythm, tachycardia, normal heart sounds. Absent: systolic murmur, diastolic murmur, rubs, gallop, clicks GI/Abdominal exam: Present: soft, normal bowel sounds. Absent: distended, tenderness, guarding, rebound, rigid Extremities exam: Present: normal inspection, full ROM, normal capillary refill. Absent: tenderness, pedal edema, joint swelling, calf tenderness Back exam: Present: normal inspection Neurological exam: Present: alert, oriented X3, CN II-XII intact Psychiatric exam: Present: normal affect, normal mood Skin exam: Present: warm, dry, intact, normal color. Absent: rash Course Vital Signs 10/20/19 10/20/19 10/20/19 13:46 13:52 14:05 Temperature 98.4 F Pulse Rate 110 H 120 H Respiratory 20 20 Rate Blood Pressure 138/77 O2 Sat by Pulse 95 Oximetry 10/20/19 10/20/19 14:13 15:11 Temperature Pulse Rate 117 H 106 H Respiratory 20 Rate Blood Pressure 125/66 O2 Sat by Pulse 94 L Oximetry - Reevaluation(s) Reevaluation #1: 10/20/19 17:12 Reevaluation patient reveals still very dyspneic. Still tachycardic. Medical Decision Making - Medical Decision Making I did discuss the findings the patient he still dyspneic. He will be admitted case discussed with Dr. Cano. The presentation consistent with COPD exacerbation and pneumonia. - Lab Data Result diagrams: 10/20/19 14:05 10/20/19 14:05 Lab Results 10/20/19 10/20/19 10/20/19 Range/Units 14:05 14:05 14:05 WBC 12.2 H (3.8-10.6) k/uL RBC 3.85 L (4.30-5.90) m/uL Hgb 12.2 L (13.0-17.5) gm/dL Hct 37.9 L (39.0-53.0) % MCV 98.2 (80.0-100.0) fL MCH 31.7 (25.0-35.0) pg MCHC 32.3 (31.0-37.0) g/dL RDW 14.5 (11.5-15.5) % Plt Count 332 (150-450) k/uL Neutrophils % 74 % Lymphocytes % 13 % Monocytes % 9 % Eosinophils % 1 % Basophils % 1 % Neutrophils # 9.0 H (1.3-7.7) k/uL Lymphocytes # 1.6 (1.0-4.8) k/uL Monocytes # 1.1 H (0-1.0) k/uL Eosinophils # 0.1 (0-0.7) k/uL Basophils # 0.1 (0-0.2) k/uL PT 9.5 (9.0-12.0) sec INR 0.9 (<1.2) APTT 22.3 (22.0-30.0) sec Sodium 132 L (137-145) mmol/L Potassium 5.6 H (3.5-5.1) mmol/L Chloride 92 L (98-107) mmol/L Carbon Dioxide 35 H (22-30) mmol/L Anion Gap 5 mmol/L BUN 9 (9-20) mg/dL Creatinine 0.39 L (0.66-1.25) mg/dL Est GFR (CKD-EPI)AfAm >90 (>60 ml/min/1.73 sqM) Est GFR (CKD-EPI)NonAf >90 (>60 ml/min/1.73 sqM) Glucose 101 H (74-99) mg/dL Plasma Lactic Acid Gray (0.7-2.0) mmol/L Calcium 9.2 (8.4-10.2) mg/dL Magnesium 1.7 (1.6-2.3) mg/dL Total Bilirubin 1.1 (0.2-1.3) mg/dL AST 47 (17-59) U/L ALT 38 (4-49) U/L Alkaline Phosphatase 49 (38-126) U/L Creatine Kinase 64 (55-170) U/L Troponin I (0.000-0.034) ng/mL NT-Pro-B Natriuret Pep pg/mL Total Protein 6.6 (6.3-8.2) g/dL Albumin 3.8 (3.5-5.0) g/dL 10/20/19 10/20/19 10/20/19 Range/Units 14:05 14:05 14:05 WBC (3.8-10.6) k/uL RBC (4.30-5.90) m/uL Hgb (13.0-17.5) gm/dL Hct (39.0-53.0) % MCV (80.0-100.0) fL MCH (25.0-35.0) pg MCHC (31.0-37.0) g/dL RDW (11.5-15.5) % Plt Count (150-450) k/uL Neutrophils % % Lymphocytes % % Monocytes % % Eosinophils % % Basophils % % Neutrophils # (1.3-7.7) k/uL Lymphocytes # (1.0-4.8) k/uL Monocytes # (0-1.0) k/uL Eosinophils # (0-0.7) k/uL Basophils # (0-0.2) k/uL PT (9.0-12.0) sec INR (<1.2) APTT (22.0-30.0) sec Sodium (137-145) mmol/L Potassium (3.5-5.1) mmol/L Chloride (98-107) mmol/L Carbon Dioxide (22-30) mmol/L Anion Gap mmol/L BUN (9-20) mg/dL Creatinine (0.66-1.25) mg/dL Est GFR (CKD-EPI)AfAm (>60 ml/min/1.73 sqM) Est GFR (CKD-EPI)NonAf (>60 ml/min/1.73 sqM) Glucose (74-99) mg/dL Plasma Lactic Acid Gray 2.0 (0.7-2.0) mmol/L Calcium (8.4-10.2) mg/dL Magnesium (1.6-2.3) mg/dL Total Bilirubin (0.2-1.3) mg/dL AST (17-59) U/L ALT (4-49) U/L Alkaline Phosphatase (38-126) U/L Creatine Kinase (55-170) U/L Troponin I <0.012 (0.000-0.034) ng/mL NT-Pro-B Natriuret Pep 247 pg/mL Total Protein (6.3-8.2) g/dL Albumin (3.5-5.0) g/dL - EKG Data -: EKG Interpreted by Me EKG shows normal: sinus rhythm (Sinus tachycardia rate of 1:15 OR interval 122 QRS duration 80 QT since QTC 324/448 nonspecific T-wave configuration) - Radiology Data Radiology results: report reviewed (I did review the imaging and report evidence of interstitial pneumonitis.), image reviewed Critical Care Time Critical Care Time: Yes Critical Care Time: 31 minutes of critical care time which includes initial presentation with history physical labs x-rays reevaluation patient multiple occasions review of old charting scheduled with the main physician admission orders and documentation of the above Disposition Clinical Impression: Interstitial pneumonia, Acute exacerbation of chronic obstructive pulmonary disease (COPD), Acute respiratory distress syndrome in adult, Tachycardia, Hypoxemia Disposition: ADMITTED IP TO THIS HOSP Condition: Fair Referrals: Urszula Carrasco MD [Primary Care Provider] - 1-2 days
[2019-10-20 14:30] LABS: Basophils # (A) 0.1 k/uL (0-0.2); Basophils % (A) 1 %; Eosinophils # (A) 0.1 k/uL (0-0.7); Eosinophils % (A) 1 %; HCT 37.9 % (39.0-53.0); HGB 12.2 gm/dL (13.0-17.5); Lymphocytes # (A) 1.6 k/uL (1.0-4.8); Lymphocytes % (A) 13 %; MCH 31.7 pg (25.0-35.0); MCHC 32.3 g/dL (31.0-37.0); MCV 98.2 fL (80.0-100.0); Mean Platelet Volume 6.9; Monocytes # (A) 1.1 k/uL (0-1.0); Monocytes % (A) 9 %; Neutrophils % (A) 74 %; Platelet Count 332 k/uL (150-450); RBC 3.85 m/uL (4.30-5.90); RDW 14.5 % (11.5-15.5); WBC 12.2 k/uL (3.8-10.6)
[2019-10-20 14:42] LABS: INR 0.9 (<1.2); Partial Thromboplastin Time 22.3 sec (22.0-30.0); Prothrombin Time 9.5 sec (9.0-12.0)
[2019-10-20 14:46] LABS: ALT 38 U/L (4-49); AST 47 U/L (17-59); African American GFR (CKD) >90 (>60 ml/min/1.73 sqM); Albumin 3.8 g/dL (3.5-5.0); Alkaline Phosphatase 49 U/L (38-126); Anion Gap 5 mmol/L; Blood Urea Nitrogen 9 mg/dL (9-20); Calcium 9.2 mg/dL (8.4-10.2); Carbon Dioxide 35 mmol/L (22-30); Chloride 92 mmol/L (98-107); Creatine Kinase 64 U/L (55-170); Glucose 101 mg/dL (74-99); Magnesium 1.7 mg/dL (1.6-2.3); Non-African American GFR(CKD) >90 (>60 ml/min/1.73 sqM); Sodium 132 mmol/L (137-145); Total Bilirubin 1.1 mg/dL (0.2-1.3); Total Protein 6.6 g/dL (6.3-8.2)
[2019-10-20 14:49] LABS: Potassium 5.6 mmol/L (3.5-5.1)
--- NOTE | 2019-10-20 15:51 | XR ---
EXAMINATION TYPE: XR chest 2V DATE OF EXAM: 10/20/2019 COMPARISON: 09/29/2019 TECHNIQUE: PA and lateral views submitted. HISTORY: Difficulty breathing FINDINGS: Hyperinflation compatible COPD. Interstitium is increased. Elevated left hemidiaphragm with cardiomeg vinny. Right perihilar subsegmental consolidation. There is a nodule in the right upper lobe measuring 1.7 cm. Hypertrophic and degenerative change of the spine. IMPRESSION: 1. 1.7 cm right upper lobe lung mass. 2. Interval increase in interstitium correlate for developing interstitial pneumonitis, pneumonia, or venous congestion in the differential diagnosis. 3. COPD
[2019-10-20] MEDS ORDERED: PNEUMONIA PROTOCOL UTILIZED 1 EACH MISC PO PRN (17:14)
[2019-10-20] MEDS ORDERED: AZITHROMYCIN 500 MG in SODIUM CHLORIDE 0.9% 250 ML IVPB STA (17:14)
[2019-10-20] MEDS ORDERED: ACETAMINOPHEN TAB 500 MG TAB PO PRN (17:16)
[2019-10-20] MEDS ORDERED: WARFARIN 5 MG TAB PO SCH ×2 (17:30)
[2019-10-20] MEDS ORDERED: WARFARIN 3 MG TAB PO ONE (18:00)
[2019-10-20] MEDS ORDERED: RX INFO: IV CONTRAST WAS GIVEN 1 EACH MISC MISCELLANE PRN (18:28)
[2019-10-20] MEDS ORDERED: HYDROmorphone 0.5 MG/0.5 ML SYRINGE IVP PRN (18:39)
[2019-10-20] MEDS: BUDESONIDE 1 MG/2 ML NEBU INHALATION SCH (19:49)
[2019-10-20] MEDS: FORMOTEROL FUMARATE 20 MCG/2 ML NEBU INHALATION SCH (19:49)
[2019-10-20] MEDS: IPRATROPIUM-ALBUTEROL 3 ML NEB INHALATION SCH (19:50)
[2019-10-20] MEDS ORDERED: SYMBICORT 160-4.5 MCG INHALER INHALATION SCH (20:00)
[2019-10-20] MEDS: SODIUM CHLORIDE 0.9% 1,000 ML IV SCH (22:40)
[2019-10-20] MEDS: methylPREDNISolone SOD SUCCI 125 MG/2 ML VIAL IV SCH (22:41)
--- NOTE | 2019-10-20 22:41 | HP ---
HISTORY AND PHYSICAL CHIEF COMPLAINT: Shortness of breath and difficulty breathing. HISTORY OF PRESENT ILLNESS: This 59-year-old gentleman with a past medical history of multiple medical problems, COPD, CVA, TIA, DVT, history of hypertension, history of myocardial infarction, history of pneumonia, history of pulmonary embolism, history of anxiety, depression, panic disorder, being followed by Dr. Urszula Carrasco in the outpatient setting, also has history of noncompliance also. The patient had multiple admissions previously. The most recent was COPD acute exacerbation as well as tachycardia and chest pains. Cardiology evaluated the patient before 2D echo was showing normal ejection fraction last year. Last year, the patient also had pulmonary embolism and also cavitary lesion was also suspected in the right upper lobe. Because of non improvement, apparently outpatient evaluation admission to the [facility] was planned and on the way to [facility] the patient became more sick and the patient came to [facility] and was admitted for further evaluation and treatment. A chest x-ray showed possible mass lesion or cavitary lesion right upper lobe as well as bilateral infiltrates or atelectasis. The patient admitted to the hospital for further evaluation and treatment. The patient previously had right upper lobe consolidation, thought to be fungal and Aspergillus fumigatus also. Patient also had chronic hypoxic respiratory failure also. There is no history of any fever, rigors. No history of headache, loss of consciousness, seizures at this time. Patient has some facial puffiness at this time. PAST MEDICAL HISTORY: COPD, CVA, TIA, DVT, hypertension, history of myocardial infarction, pneumonia, pulmonary embolism, right upper lobe lesion, anxiety, depression, panic disorder. MEDICATIONS: Home medications are: 1. Tylenol 500 mg q.6h p.r.n. 2. DuoNeb q.i.d. and p.r.n. 3. Norvasc 10 mg p.o. daily. 4. Aspirin 81 mg daily. 5. Lipitor 10 mg daily. 6. Zithromax 500 mg daily. 7. Symbicort 160/4.5 two puffs b.i.d. 8. Rocephin 1 g daily. 9. Lexapro 10 mg p.o. daily. 10.Neurontin 800 mg t.i.d. 11.Solu-Medrol 60 IV q.6h. 12.Lopressor 25 mg b.i.d. 13.Singulair 10 mg q.h.s. 14.Habitrol 14 daily. PHYSICAL EXAM: Patient is alert, oriented x3. Pulse is 112. Blood pressure is 124/60. Respirations 20. Temperature is 98.4, pulse ox 94% on 2 L. HEENT is conjunctivae normal. Oral mucosa moist. Facial puffiness. Neck is no jugular venous distention. No carotid bruit. No lymph node enlargement. Cardiovascular system: S1, S2. No S3, no S4. Respiratory: Breath sounds diminished in the bases. Bilateral scattered rhonchi, expiratory wheezing also present. ABDOMEN: Soft, obese, nontender. No mass palpable. LEGS: Minimal leg edema. NERVOUS SYSTEM: Higher functions as mentioned earlier. Moves all four limbs. Mild diffuse weakness. LYMPHATICS: No lymph nodes palpable in the neck, axillae or groin. SKIN: No ulcers, rashes or bleeding. JOINTS: No active deforming arthropathy. LABS: WBC 12.2, hemoglobin 12.2, sodium 132, potassium 5.6, troponin less than 0.012. NT proBNP is 247. ASSESSMENT: 1. Chronic obstructive pulmonary disease acute exacerbation with acute bibasilar pneumonia possibly gram-negative with possible sepsis. 2. Rule out right upper lobe mass lesion or cavitary lesion. 3. Change in mental status and metabolic encephalopathy, multifactorial. 4. History of right upper lobe consolidation, thought to be fungal or Aspergillus fumigatus. 5. History of chest pain/angina. 6. History of chronic obstructive pulmonary disease. 7. Cerebrovascular accident, transient ischemic attack. 8. History of deep vein thrombosis. 9. History of pulmonary embolism. 10.Coumadin monitoring and noncompliance, possibly. 11.Hypertension. 12.History of myocardial infarction. 13.History of pneumonia. 14.History of pulmonary embolism. 15.History of cerebrovascular accident with basal ganglia hemorrhage. 16.History of right eye blindness. 17.History of right frozen shoulder. 18.History of anxiety, depression, panic disorder. 19.Chronic hypoxic respiratory failure. 20.Continued ongoing nicotine dependence. 21.History of THC. RECOMMENDATIONS AND DISCUSSION: In this 59-year-old gentleman who presented with multiple complex medical issues, at this time, I recommend to continue current medications, symptomatic treatment. Empiric antibiotics. Intensive bronchodilator treatment. Otherwise, resume the home medications. I would also recommend continue with Coumadin monitoring per pharmacy. PT, INR closely to be monitored. Pulmonary consultation. Infectious Disease consultation. I would also recommend a CT scan of the chest to rule out the possibility of any mass lesion at this time. Prognosis guarded because of multiple complex medical issues. further recommendations to follow. A copy of this dictation being forwarded to Dr. Urszula Carrasco who is the primary care physician. MMROROL / HANSAN: [id number] / MTDD
[2019-10-21] MEDS: GABAPENTIN 400 MG CAP PO SCH ×4 (00:03→21:01)
[2019-10-21] MEDS: METOPROLOL TARTRATE 25 MG TAB PO SCH ×3 (00:03→21:01)
[2019-10-21] MEDS: MONTELUKAST 10 MG TAB PO SCH ×2 (00:03→21:01)
[2019-10-21] MEDS: IPRATROPIUM-ALBUTEROL 3 ML NEB INHALATION SCH ×6 (00:06→21:39)
[2019-10-21] MEDS: methylPREDNISolone SOD SUCCI 125 MG/2 ML VIAL IV SCH ×5 (00:07→22:59)
[2019-10-21] MEDS: SODIUM CHLORIDE 0.9% 1,000 ML IV SCH ×2 (00:07→17:11)
[2019-10-21] MEDS: amLODIPine 10 MG TAB PO SCH (07:36)
[2019-10-21] MEDS: ATORVASTATIN 10 MG TAB PO SCH (07:36)
[2019-10-21] MEDS: NICOTINE 14MG/24HR PATCH TRANSDERM SCH (07:36)
[2019-10-21] MEDS: PANTOPRAZOLE 40 MG TABLET PO SCH (07:36)
[2019-10-21] MEDS: ASPIRIN 81 MG PO SCH (07:36)
[2019-10-21 07:42] LABS: Basophils % (A) 0 %; Eosinophils % (A) 0 %; HCT 37.4 % (39.0-53.0); Lymphocytes # (A) 0.5 k/uL (1.0-4.8); Lymphocytes % (A) 5 %; MCH 31.7 pg (25.0-35.0); MCV 98.9 fL (80.0-100.0); Mean Platelet Volume 6.8; Monocytes # (A) 0.5 k/uL (0-1.0); Monocytes % (A) 5 %; Neutrophils # (A) 8.7 k/uL (1.3-7.7); Neutrophils % (A) 89 %; Platelet Count 297 k/uL (150-450); RBC 3.78 m/uL (4.30-5.90); RDW 14.5 % (11.5-15.5); WBC 9.8 k/uL (3.8-10.6)
[2019-10-21 07:55] LABS: African American GFR (CKD) >90 (>60 ml/min/1.73 sqM); Anion Gap 4 mmol/L; Blood Urea Nitrogen 13 mg/dL (9-20); Calcium 9.4 mg/dL (8.4-10.2); Carbon Dioxide 33 mmol/L (22-30); Chloride 99 mmol/L (98-107); Glucose 124 mg/dL (74-99); Non-African American GFR(CKD) >90 (>60 ml/min/1.73 sqM); Potassium 4.4 mmol/L (3.5-5.1); Sodium 136 mmol/L (137-145)
[2019-10-21] MEDS: FORMOTEROL FUMARATE 20 MCG/2 ML NEBU INHALATION SCH ×2 (08:45→21:39)
[2019-10-21] MEDS: BUDESONIDE 1 MG/2 ML NEBU INHALATION SCH ×2 (08:45→21:39)
--- NOTE | 2019-10-21 10:14 | XR ---
EXAMINATION TYPE: XR chest 2V DATE OF EXAM: 10/21/2019 COMPARISON: 10/20/2019 TECHNIQUE: PA and lateral views submitted. HISTORY: Shortness of breath FINDINGS: Hyperinflation compatible COPD. Interstitium is increased. Elevated left hemidiaphragm with cardiomeg vinny. Right perihilar subsegmental consolidation. There is a nodule in the right upper lobe measuring 1.7 cm. Hypertrophic and degenerative change of the spine. A basilar subsegmental consolidation noted likely in the basis of atelectasis.. IMPRESSION: 1. 1.7 cm right upper lobe lung mass or consolidation is slightly improved from the prior exam. Diffe rential diagnosis would include improving localized area of pneumonia. Neoplasm not excluded. 2. COPD
--- NOTE | 2019-10-21 10:31 | CT ---
EXAMINATION TYPE: CT chest w con DATE OF EXAM: 10/21/2019 COMPARISON: Prior CTs May 2019 and older studies. Chest x-ray earlier today and older x-rays. HISTORY: right upper lobe mass CT DLP: 385.4 mGycm. Automated Exposure Control for Dose Reduction was Utilized. TECHNIQUE: CT scan of the thorax is performed following with IV Contrast, patient injected with 100 mL of Isovue 300. FINDINGS: LUNGS: Back while moderate to advanced underlying emphysematous change with peripheral upper lung jenni gemia bilaterally is redemonstrated. At site of prior cavitary lesion right upper lobe there is some residual linear scarring with slightly more nodular component near the cavitation seen coronal image 64. Thin-walled cavity identified on current study. Redemonstration of elevated left hemidiaphragm. M ild to moderate linear atelectasis and/or scarring in the left lower lobe with slight nodularity or n odular consolidation is present. There is 5 mm nodular consolidation or nodule coronal image 85 ga esponding to axial image 34 . No pleural effusion or pneumothorax. MEDIASTINUM: There are no greater than 1 cm hilar or mediastinal lymph nodes. No cardiomegaly or p ericardial effusion is seen. Moderate three-vessel coronary artery calcification is present which is noted from coronary artery disease. OTHER: Small asymmetric left greater than right subareolar gynecomastia. Dependent density in gallbla dder suspicious for small gallstones. Visualized portion of colon shows moderate wall thickening with occasional diverticula, this could be product of poor distention but a diffuse colitis cannot be exc luded. Partial visualization of a retroaortic left renal vein which is normal variant. IMPRESSION: Moderate to advanced emphysematous changes greatest in the upper lungs redemonstrated wit h improving cavitary lesion posterior aspect right upper lobe from most recent CT. Thin-walled cavity with nodularity remains present but likely reflects resolving abscess or cavitary pneumonia. Neoplas m felt much less likely but cannot be entirely excluded. More concerning is new mild infiltrate in th e left lower lobe just above the diaphragm with slight nodularity favoring new acute infectious proce ss. Other findings as noted above.
[2019-10-21] MEDS: APIXABAN 5 MG TAB PO SCH ×2 (10:36→21:02)
[2019-10-21] MEDS: ESCITALOPRAM 10 MG TAB PO SCH (10:37)
[2019-10-21] MEDS: HYDROcodone/APAP 5-325MG 1 EACH TAB PO PRN ×3 (10:42→22:59)
--- NOTE | 2019-10-21 12:48 | CONS ---
CONSULTATION PULMONARY/CRITICAL CARE CONSULTATION: DATE OF CONSULTATION: October 21, 2019. REASON FOR CONSULTATION: Shortness of breath, difficulty breathing, and COPD exacerbation. This is a 59-year-old gentleman, well known to our service. The patient has had multiple admissions to the hospital including more recently in early September. The patient comes into the emergency room on October 19 at 1343 complaining of increasing shortness of breath. The patient apparently was cleaning his apartment and developed shortness of breath. EMS was called. The patient was given 2 updrafts in route with some improvement. He was also complaining of tightness and wheezing. He was coughing a bit, not producing any phlegm. There was no fever or chills. There was no chest pain or chest discomfort. There was no nausea, vomiting, diarrhea, or abdominal pain. No genitourinary complaints. Apparently the symptoms came on rather suddenly. The patient was seen in the emergency room and admitted with a diagnosis of COPD exacerbation and interstitial pneumonia. The patient does have a history of a prior fungal infection involving the right upper lobe. He was on itraconazole for a long period of time. That lesion has improved. His current chest x-ray is consistent with COPD. He had a CAT scan which showed improving nodularity and cavitary lesion in the right upper lobe and possible new infiltrate in the left lower lobe just above the diaphragm. Currently, the patient is resting comfortably. He is on oxygen. HOME MEDICATIONS: Home medications include Advair HFA, amlodipine, albuterol inhaler, nicotine patch, DuoNeb, melatonin, warfarin, and prednisone. Other medications include Lexapro, Neurontin, Lipitor, Singulair, Valtrex, Tylenol, aspirin and Lopressor. ALLERGIES: TREE NUTS and PEANUT BUTTER. MEDICAL HISTORY: Positive for angina pectoris, COPD, CVA, DVT, pulmonary embolism, pneumonia, myocardial infarction, hypertension, and gastroesophageal reflux disease. Other medical history includes fungal pneumonia right upper lobe treated with itraconazole for quite a long period of time. That area has seemed to improve. I believe the cavitary lesion was contaminated with Aspergillus fumigatus. Other medical problems include shingles causing right eye blindness, a prosthetic right eye, and multitude of other medical problems. SURGICAL HISTORY: Surgical history includes metal plate left hand middle finger, right eye enucleation with prosthesis. He has also had multiple bronchoscopies in the past. SOCIAL HISTORY: Positive for ongoing tobacco use. Denies any alcohol use. Does smoke marijuana. FAMILY HISTORY: Positive for mother with kidney cancer and a father with melanoma and COPD. REVIEW OF SYSTEMS: CONSTITUTIONAL: Negative. NEUROLOGIC: Negative. HEENT: Negative. CARDIOVASCULAR: Negative. PULMONARY: Shortness of breath, chest tightness, wheezing, cough, chest congestion with minimal to no phlegm production. GI: Negative. : Negative. RHEUMATOLOGIC: Negative. IMMUNOLOGIC: Negative. ENDOCRINOLOGIC: Negative. DERMATOLOGIC: Negative. PHYSICAL EXAMINATION: VITAL SIGNS: Current vital signs are reviewed. Temperature is 98.2 heart rate 92, respiratory rate 18, blood pressure 146/74, mean 98 and 3 L saturations 98%. GENERAL: He appears in no acute distress. There is no audible wheezing or use of accessory muscles. HEENT: Examination is grossly unremarkable. Nasal O2 noted. NECK: Supple. Full range of motion. CARDIOVASCULAR: Examination reveals regular rhythm rate. Heart rate about 92 beats per minute. Heart sounds are distant. S1, S2 normal. LUNGS: Reveal some coarse expiratory rhonchi and mild expiratory wheezes. Breath sounds equal bilaterally. Breath sounds are diminished throughout. ABDOMEN: Soft. Bowel sounds are heard. EXTREMITIES: Are intact. No cyanosis, clubbing, or edema. SKIN: Without rash. NEUROLOGIC: Examination is brief but nonfocal. LABS: Labs are reviewed. White count 9.8, hemoglobin 12, hematocrit 37.4, platelet count 297,000. PT/INR normal. Sodium 136, potassium 4.4, chloride 99, CO2 of 33. Anion gap is 4. BUN and creatinine were 13 and 0.43. The rest of the CMP is normal. Microbiologic studies are thus far negative. Chest x-ray shows primarily changes of COPD and a nodular density in the right upper lobe, which is chronic. Chest CT shows an improving cavitary lesion in the right upper lung. In addition, there is changes of advanced emphysema as well as an evolving left lower lobe infiltrate. MEDICATIONS: Current medications are reviewed. He is on Tylenol, Xanax, amlodipine, Eliquis, aspirin, Lipitor, Zithromax, Pulmicort, Rocephin, Lexapro, formoterol, gabapentin, hydrocodone, DuoNeb, Solu-Medrol, metoprolol, Singulair, nicotine patch, Protonix, and a basic IV. ASSESSMENT: 1. Chronic obstructive pulmonary disease exacerbation complicated by purulent tracheobronchitis and possible bronchopneumonia left lower lobe. 2. Severe chronic obstructive pulmonary disease, with an FEV1 that is 36% of predicted. 3. Ongoing tobacco use with nicotine addiction. 4. Multiple admissions to the hospital for chronic obstructive pulmonary disease exacerbations. 5. History of fungal pneumonia involving the right upper lobe, status post itraconazole x3 months with improving lesion on CT scan. 6. Type 2 diabetes. 7. History of deep venous thrombosis and pulmonary embolism. 8. History of cerebrovascular accident involving the basal ganglia in 2015. 9. Gastroesophageal reflux disease without esophagitis. 10.Coronary artery disease with previous myocardial infarction. 11.Avascular necrosis of the left humeral head. 12.Ongoing tobacco use with nicotine addiction. 13.Shingles involving the right eye, status post blindness with enucleation. PLAN: The patient's medications are appropriate. He is on updraft, antibiotics, Pulmicort, formoterol, and systemic corticosteroids. Will continue to follow. Hopefully the patient will turn around quickly and we get him out of the hospital quickly. He does not really appear all that bad today. His lung sounds are slightly diminished and there are some mild wheezes, but we certainly have seen him much worse. Overall prognosis is poor though. He is counseled about the importance of smoking cessation. MMODL / IJN: [id number] /
--- NOTE | 2019-10-21 16:00 | PN ---
PROGRESS NOTE DATE OF SERVICE: 10/21/2019 This 59-year-old gentleman apparently was admitted [facility] recently and the patient was at home picking up things in the apartment when the patient had an apparent attack of shortness of breath. The patient was taken to [facility] and was admitted for further evaluation and treatment. Pulmonary evaluation is in progress at this time. A chest x-ray was done which was personally reviewed by me today. It showed evidence of bilateral congestion. A CT scan of the chest was also done which showed emphysematous changes. Cavitary lesion in the posterior aspect of the right lobe showed some improvement. Resolving abscess or cavitary pneumonia. Neoplasm was felt less likely. Possible new infiltrate in the left lower lobe was also suspected. Dr. Green has seen the patient and recommended continued antibiotics at this time. Past medical history reviewed. REVIEW OF SYSTEMS: CARDIOVASCULAR SYSTEM: No angina, palpitations. RESPIRATORY SYSTEM: As mentioned earlier. GI: As mentioned earlier. : No dysuria or retention. NERVOUS SYSTEM: No numbness, weakness. CURRENT MEDICATIONS: Reviewed. They include: 1. Tylenol 500 mg q.6 p.r.n. 2. [place] 5 mg q.6 p.r.n. 3. DuoNeb q.i.d. and p.r.n. 4. Xanax 0.25 t.i.d. 5. Norvasc 10 mg p.o. daily. 6. Eliquis 5 mg b.i.d. 7. Aspirin 81 mg daily. 8. Lipitor 10 mg p.o. daily. 9. Zithromax 500 mg p.o. daily. 10.Pulmicort 1 mg b.i.d. 11.Rocephin 1 gram daily. 12.Lexapro 10 mg daily. 13.Perforomist 20 mcg b.i.d. 14.Neurontin 800 mg t.i.d. 15.Dilaudid. 16.NovoLog. 17.Solu-Medrol 60 IV b.i.d. 18.Lopressor 25 mg p.o. b.i.d. 19.Singulair 10 mg at bedtime. 20.Habitrol 14 daily. 21.Protonix 40 mg daily. PHYSICAL EXAMINATION: Patient is alert, oriented x3. Pulse is 89, blood pressure 114/71, respiration 19, temperature 97.4, pulse ox 97% on room air. HEENT: Conjunctivae normal. NECK: No jugular venous distention. CARDIOVASCULAR SYSTEM: S1, S2 muffled. RESPIRATORY SYSTEM: Breath sounds diminished at the bases. A few bilateral scattered rhonchi and crackles. Expiratory wheezing also present. ABDOMEN: Soft, non-tender. LEGS: No edema. No swelling. NERVOUS SYSTEM: No focal deficit. LABS: WBC 9.8, hemoglobin is 12, sodium is 136, potassium 4.4 and glucose is 124. ASSESSMENT: 1. Chronic obstructive pulmonary disease, acute exacerbation, with acute bibasilar pneumonia, left more than the right, possibly Gram-negative with possible sepsis, present on admission. 2. Right upper lobe cavitary lesion which is improving. Mass lesion considered to be less likely; possibly cavitating pneumonia. 3. Change in mental status, metabolic encephalopathy, multifactorial. 4. 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 5. History of chest pain, angina. 6. History of chronic obstructive pulmonary disease. 7. History of cerebrovascular accident, transient ischemic attack. 8. History of deep vein thrombosis. 9. Gait dysfunction. 10.History of pulmonary embolism. 11.Coumadin monitoring and noncompliance possibly. 12.Hypertension. 13.History of myocardial infarction. 14.History of pneumonia. 15.History of pulmonary embolism. 16.History of cerebrovascular accident with basal ganglia hemorrhage. 17.History of right eye blindness. 18.History of right frozen shoulder. 19.Anxiety, depression, panic disorder. 20.Chronic hypoxic respiratory failure. 21.Continued ongoing nicotine dependence. 22.History of tetrahydrocannabinol. 23.Back pain. RECOMMENDATIONS AND DISCUSSION: In this 59-year-old gentleman who presented with multiple medical issues, at this time I would recommend continuing with bronchodilators. Continue with empiric antibiotics. Follow the cultures. Closely follow with Infectious Disease and Pulmonary. The cavitary lesion seen in the right upper lobe is apparently diminishing in size, according to the CT scan, but need continued followup. Overall prognosis is extremely guarded because of multiple complex medical issues. Home medications will be continued and empiric antibiotics. Further recommendations to follow. MMODL / IJN: [id number] /
[2019-10-21 16:53] LABS: Glucose,Whole Blood 186 mg/dL (75-99)
[2019-10-21] MEDS: AZITHROMYCIN 500 MG TAB PO SCH (17:11)
[2019-10-21] MEDS: MECLIZINE 12.5 MG TAB PO SCH (17:11)
[2019-10-21] MEDS: INSULIN ASPART (NovoLOG) 100 UNIT/ML VIAL SQ SCH ×2 (17:12→21:07)
[2019-10-21 21:02] LABS: Glucose,Whole Blood 219 mg/dL (75-99)
[2019-10-21] MEDS: MELATONIN 5 MG TABLET PO SCH (21:02)
[2019-10-21] MEDS: ALPRAZolam 0.25 MG TAB PO PRN (21:07)
--- NOTE | 2019-10-21 23:46 | P.CONS ---
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 that has been treated with a prolonged course of itraconazole patient is now presenting to [facility] yesterday with chief complaints of increasing shortness of breath patient breathing has been getting worse for about 2 days before he presented to hospital patient also have a cough which has been moderate in intensity however has been mostly dry in nature but denies any pleuritic chest pain he denies any nausea no vomiting no shortness before abdominal pain or any diarrhea with the symptom the patient was evaluated by the ER physician on arrival to the ER the patient was afebrile patient did have elevated 125 point 2 repeat is normal liver enzymes are normal blood culture obtained which are currently pending and the patient did have a chest x- ray which shows 1 persistent right upper lobe lung mass interval increase in sensation correlate for developing interstitial pneumonitis subsequently did have CT of the chest which did shows moderate to advanced emphysematous changes in the upper lungs with improving cavitary lesion posterior aspect right upper lobe and some resolving abscess or cavitary pneumonia patient has been started on Rocephin and Zithromax has been admitted to hospital infectious was consulted for further recommendation regarding antibiotic therapy. Review of Systems Positive point has been mentioned in HPI rest of the systems are negative Past Medical History Past Medical History: Chest Pain / Angina, COPD, CVA/TIA, Deep Vein Thrombosis (DVT), Hypertension, Myocardial Infarction (PR), Pneumonia, Pulmonary Embolus (PE), Respiratory Disorder, Skin Disorder Additional Past Medical History / Comment(s): R upper lobe consolidation thought to be fungal/+asperigillus fumigatus, chronic hypoxic respiratory failure/ home O2 at 2L/NC ATC, past shingles 2016 which caused R eye blindness/pt states he presently has a rash/ reoccurrence of shingles at this time, 2014 CVA-basal ganglia hemorrhage with R arm weakness, R frozen shoulder, recent L shoulder injury and needs a sling (present sling fell apart) and will need surgical intervention, chronic chest pain since CVA when he also had rib fractures, pt unsure if he had a PR in the past or not. Last Myocardial Infarction Date:: unknown History of Any Multi-Drug Resistant Organisms: None Reported Past Surgical History: Orthopedic Surgery Additional Past Surgical History / Comment(s): metal plate left hand middle finger, right eye enucleation. Past Anesthesia/Blood Transfusion Reactions: No Reported Reaction Past Psychological History: Anxiety, Depression, Panic Disorder Additional Psychological History / Comment(s): Lives in apartment. Has a nebulizer/oxygen. 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 Smoking Status: Current every day smoker Past Alcohol Use History: Occasional Additional Past Alcohol Use History / Comment(s): STARTED SMOKING 1975 1 PPD- PT STATED HE DRINKS 1 BEER a day Past Drug Use History: Marijuana Additional Drug Use History / Comment(s): Pt states he uses marajuana at times. - Past Family History Mother Family Medical History: Cancer Additional Family Medical History / Comment(s): Pt believes his Mom of Kidney Cancer Father Family Medical History: Cancer, COPD, Respiratory Disorder Additional Family Medical History / Comment(s): Melanoma Medications and Allergies Home Medications Medication Instructions Recorded Confirmed Type amLODIPine [Norvasc] 10 mg PO DAILY 04/29/19 10/20/19 History Escitalopram [Lexapro] 10 mg PO DAILY #15 tab 05/15/19 10/20/19 Rx Ipratropium-Albuterol Nebulize 3 ml INHALATION RT-QID PRN 06/13/19 10/20/19 History [Duoneb 0.5 mg-3 mg/3 ml Soln] Melatonin 10 mg PO HS 08/12/19 10/20/19 History predniSONE 10 mg PO DAILY 09/22/19 10/20/19 History Metoprolol Tartrate [Lopressor] 25 mg PO BID #60 tab 09/30/19 10/20/19 Rx ALPRAZolam [Xanax] 0.25 mg PO BID PRN 10/20/19 10/20/19 History Acetaminophen Tab [Tylenol Tab] 1,000 mg PO Q4H PRN 10/20/19 10/20/19 History Albuterol Nebulized [Ventolin 2.5 mg INHALATION RT-QID PRN 10/20/19 10/20/19 History Nebulized] Amoxicillin 500 mg PO TID@0900,1300,2100 10/20/19 10/20/19 History Apixaban [Eliquis] 5 mg PO Q12H 10/20/19 10/20/19 History Aspirin EC [Ecotrin Low Dose] 81 mg PO DAILY 10/20/19 10/20/19 History Famotidine 10 mg PO Q12H 10/20/19 10/20/19 History Folic Acid 1 mg PO DAILY 10/20/19 10/20/19 History Gabapentin [Neurontin] 600 mg PO Q8H 10/20/19 10/20/19 History Meclizine [Antivert] 12.5 mg PO Q12H 10/20/19 10/20/19 History Pantoprazole Sodium [Protonix] 40 mg PO DAILY@0600 10/20/19 10/20/19 History traMADol HCL 50 mg PO Q8H PRN 10/20/19 10/20/19 History Allergies Allergy/AdvReac Type Severity Reaction Status Date / Time tree nut [Nut] Allergy Unknown Dyspnea, Verified 10/20/19 20:59 Rash/Hives peanut [Peanut Butter] AdvReac Dyspnea, Verified 10/20/19 20:59 Rash/Hives Physical Exam Vitals: Vital Signs Temp Pulse Pulse Pulse Resp BP BP 10/21/19 12:59 100 10/21/19 12:46 100 10/21/19 09:11 92 10/21/19 09:00 92 10/21/19 08:46 92 10/21/19 07:00 98.2 F 92 18 146/74 10/21/19 03:57 104 H 10/21/19 03:46 100 10/21/19 01:20 98.1 F 85 16 121/72 10/21/19 00:18 106 H 10/21/19 00:06 106 H 10/21/19 00:00 110 H 16 10/20/19 20:15 110 H 20 10/20/19 20:05 111 H 20 10/20/19 19:51 110 H 18 10/20/19 18:56 111 H 10/20/19 18:49 111 H 10/20/19 18:39 110 H 10/20/19 18:31 109 H 22 132/67 10/20/19 18:15 114 H 22 128/89 10/20/19 17:00 112 H 20 10/20/19 15:11 106 H 20 125/66 Pulse Ox 10/21/19 12:59 10/21/19 12:46 10/21/19 09:11 10/21/19 09:00 10/21/19 08:46 10/21/19 07:00 98 10/21/19 03:57 10/21/19 03:46 10/21/19 01:20 96 10/21/19 00:18 10/21/19 00:06 10/21/19 00:00 10/20/19 20:15 10/20/19 20:05 10/20/19 19:51 10/20/19 18:56 10/20/19 18:49 10/20/19 18:39 10/20/19 18:31 96 10/20/19 18:15 92 L 10/20/19 17:00 96 10/20/19 15:11 94 L Intake and Output 10/20/19 10/21/19 10/21/19 22:59 06:59 14:59 Other: Voiding Method Diaper # Voids 1 1 3 Weight 71.668 kg GENERAL DESCRIPTION: Middle-aged male lying in bed, no distress. No tachypnea or accessory muscle of respiration use. HEENT: Shows Pallor , no scleral icterus. Oral mucous membrane is dry. NECK: Trachea central, no thyromegaly. LUNGS: Unlabored breathing. Decreased intensity of breath sounds. No wheeze or crackle. HEART: S1, S2, regular rate and rhythm. ABDOMEN: Soft, no tenderness , guarding or rigidity EXTREMITIES: No edema of feet. SKIN: No rash, no masses palpable. NEUROLOGICAL: The patient is awake, alert, oriented x3, mood and affect normal. Results CBC & Chem 7: 10/21/19 07:04 10/21/19 07:04 Labs: Abnormal Lab Results - Last 24 Hours (Table) 10/20/19 10/21/19 10/21/19 Range/Units 14:05 07:04 07:04 RBC 3.78 L (4.30-5.90) m/uL Hgb 12.0 L (13.0-17.5) gm/dL Hct 37.4 L (39.0-53.0) % Neutrophils # 8.7 H (1.3-7.7) k/uL Lymphocytes # 0.5 L (1.0-4.8) k/uL Sodium 132 L 136 L (137-145) mmol/L Potassium 5.6 H (3.5-5.1) mmol/L Chloride 92 L (98-107) mmol/L Carbon Dioxide 35 H 33 H (22-30) mmol/L Creatinine 0.39 L 0.43 L (0.66-1.25) mg/dL Glucose 101 H 124 H (74-99) mg/dL Assessment and Plan Assessment: patient with abnormal chest x-ray and CT in this patient who did have a history of fungal pneumonia that has been treated with a prolonged course of itraconazole by pulmonary now presented to the hospital with increasing shortness of breath more likely severe underlying COPD exacerbation with concern for possible bronchopneumonia more likely community-acquired in this patient currently with no fever mildly elevated white count clinic suspicion low for underlying resistant gram-positive or gram-negative infection (1) Pneumonia Current Visit: No Status: Acute Code(s): J18.9 - PNEUMONIA, UNSPECIFIED ORGANISM SNOMED Code(s): 481751702 Plan: 1-we will obtain a sputum for Gram stain and culture 2-Rocephin 1 g daily Zithromax to continue we will follow on clinical condition and cultures to further adjust medication if needed Thank you for this consultation we will follow the patient along with you
[2019-10-22] MEDS: IPRATROPIUM-ALBUTEROL 3 ML NEB INHALATION SCH ×6 (00:42→19:00)
[2019-10-22] MEDS: methylPREDNISolone SOD SUCCI 125 MG/2 ML VIAL IV SCH ×2 (05:19→13:05)
[2019-10-22] MEDS: NICOTINE 14MG/24HR PATCH TRANSDERM SCH (05:19)
[2019-10-22] MEDS: MECLIZINE 12.5 MG TAB PO SCH ×2 (05:19→17:18)
[2019-10-22] MEDS: SODIUM CHLORIDE 0.9% 1,000 ML IV SCH ×2 (05:23→21:09)
[2019-10-22] MEDS: HYDROcodone/APAP 5-325MG 1 EACH TAB PO PRN ×2 (05:27→11:43)
[2019-10-22 06:54] LABS: Glucose,Whole Blood 161 mg/dL (75-99)
[2019-10-22] MEDS: BUDESONIDE 1 MG/2 ML NEBU INHALATION SCH ×2 (07:20→19:00)
[2019-10-22] MEDS: FORMOTEROL FUMARATE 20 MCG/2 ML NEBU INHALATION SCH ×2 (07:21→19:00)
[2019-10-22] MEDS: ATORVASTATIN 10 MG TAB PO SCH (07:28)
[2019-10-22] MEDS: ESCITALOPRAM 10 MG TAB PO SCH (07:28)
[2019-10-22] MEDS: FOLIC ACID 1 MG TAB PO SCH (07:28)
[2019-10-22] MEDS: METOPROLOL TARTRATE 25 MG TAB PO SCH ×2 (07:28→21:05)
[2019-10-22] MEDS: GABAPENTIN 400 MG CAP PO SCH ×3 (07:28→21:04)
[2019-10-22] MEDS: ASPIRIN 81 MG PO SCH (07:29)
[2019-10-22] MEDS: PANTOPRAZOLE 40 MG TABLET PO SCH (07:29)
[2019-10-22] MEDS: amLODIPine 10 MG TAB PO SCH (07:29)
[2019-10-22] MEDS: APIXABAN 5 MG TAB PO SCH ×2 (07:29→21:04)
[2019-10-22] MEDS: INSULIN ASPART (NovoLOG) 100 UNIT/ML VIAL SQ SCH ×4 (07:30→21:05)
[2019-10-22 08:00] LABS: Basophils % (A) 0 %; Eosinophils % (A) 0 %; HCT 37.4 % (39.0-53.0); HGB 12.3 gm/dL (13.0-17.5); Lymphocytes # (A) 0.8 k/uL (1.0-4.8); Lymphocytes % (A) 5 %; MCH 33.1 pg (25.0-35.0); MCHC 32.9 g/dL (31.0-37.0); MCV 100.4 fL (80.0-100.0); Macrocytosis Slight; Mean Platelet Volume 6.6; Monocytes # (A) 0.5 k/uL (0-1.0); Monocytes % (A) 3 %; Neutrophils # (A) 13.8 k/uL (1.3-7.7); Neutrophils % (A) 91 %; Platelet Count 336 k/uL (150-450); RBC 3.73 m/uL (4.30-5.90); RDW 14.4 % (11.5-15.5); WBC 15.2 k/uL (3.8-10.6)
[2019-10-22 08:18] LABS: African American GFR (CKD) >90 (>60 ml/min/1.73 sqM); Anion Gap 12 mmol/L; Blood Urea Nitrogen 17 mg/dL (9-20); Calcium 8.6 mg/dL (8.4-10.2); Carbon Dioxide 24 mmol/L (22-30); Chloride 103 mmol/L (98-107); Glucose 135 mg/dL (74-99); Non-African American GFR(CKD) >90 (>60 ml/min/1.73 sqM); Sodium 139 mmol/L (137-145)
[2019-10-22] MEDS ORDERED: ASPIRIN 81 MG PO SCH (09:00)
[2019-10-22 12:04] LABS: Glucose,Whole Blood 158 mg/dL (75-99)
--- NOTE | 2019-10-22 12:19 | P.PN ---
Subjective Progress Note Date: 10/22/19 59-year-old male patient coming in for worsening shortness of breath and difficulty breathing and COPD exacerbation. Has had multiple admissions to the hospital for the same most recent of which was in early September. He was having increased cough with limited sputum production. No fever. No chills. No chest pain. He is known to have a previous fungal infection in the right upper lobe that was treated with itraconazole with good results. A repeat CAT scan of the chest was done and showed improving cavitary lesion in the the right upper lobe and possibly a new infiltrate in the left lung base above the diaphragm. IV he is currently on bronchodilators around the clock and IV Solu-Medrol.. Note that his most recent bronchioloalveolar lavage that was done on 09/17/2019 showed mckinley bacterium species and [place]. 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 On today's evaluation he reports some modest improvement compared to yesterday regarding his COPD exacerbation. Objective - Vital Signs Vital signs: Vital Signs Temp 97.5 F L 10/22/19 07:27 Pulse 88 10/22/19 11:15 Resp 18 10/22/19 07:27 BP 160/84 10/22/19 07:27 Pulse Ox 99 10/22/19 07:27 Intake & Output 10/21/19 10/22/19 10/22/19 18:59 06:59 18:59 Intake Total 400 200 200 Balance 400 200 200 Intake: Oral 400 200 200 Other: # Voids 3 - Exam GENERAL EXAM: Alert, pleasant, 59-year-old male patient, on 3 L of oxygen with a pulse ox of 97% comfortable in no apparent distress. HEAD: Normocephalic/atraumatic. EYES: Normal reaction of pupils, equal size in the left eye, patient has a prosthetic right eye. Conjunctiva pink, sclera white. NOSE: Clear with pink turbinates. THROAT: No erythema or exudates. NECK: No masses, no JVD, no thyroid enlargement, no adenopathy. CHEST: No chest wall deformity. Symmetrical expansion. LUNGS: Equal air entry with end expiratory wheeze, diminished CVS: Regular rate and rhythm, normal S1 and S2, no gallops, no murmurs, no rubs ABDOMEN: Soft, nontender. No hepatosplenomegaly, normal bowel sounds, no guarding or rigidity. EXTREMITIES: No clubbing, no edema, no cyanosis, 2+ pulses and upper and lower extremities. Left arm is in a sling MUSCULOSKELETAL: Muscle strength and tone normal. SPINE: No scoliosis or deformity. SKIN: No rashes no wounds CENTRAL NERVOUS SYSTEM: No focal deficits, tone is normal in all 4 extremities. PSYCHIATRIC: Alert and oriented -3. Appropriate affect. Intact judgment and insight. - Labs CBC & Chem 7: 10/22/19 07:38 10/22/19 07:38 Labs: Abnormal Lab Results - Last 24 Hours (Table) 10/21/19 10/21/19 10/22/19 Range/Units 16:52 21:02 06:53 WBC (3.8-10.6) k/uL RBC (4.30-5.90) m/uL Hgb (13.0-17.5) gm/dL Hct (39.0-53.0) % MCV (80.0-100.0) fL Neutrophils # (1.3-7.7) k/uL Lymphocytes # (1.0-4.8) k/uL Creatinine (0.66-1.25) mg/dL Glucose (74-99) mg/dL POC Glucose (mg/dL) 186 H 219 H 161 H (75-99) mg/dL 10/22/19 10/22/19 10/22/19 Range/Units 07:38 07:38 12:02 WBC 15.2 H (3.8-10.6) k/uL RBC 3.73 L (4.30-5.90) m/uL Hgb 12.3 L (13.0-17.5) gm/dL Hct 37.4 L (39.0-53.0) % MCV 100.4 H (80.0-100.0) fL Neutrophils # 13.8 H (1.3-7.7) k/uL Lymphocytes # 0.8 L (1.0-4.8) k/uL Creatinine 0.52 L (0.66-1.25) mg/dL Glucose 135 H (74-99) mg/dL POC Glucose (mg/dL) 158 H (75-99) mg/dL Microbiology - Last 24 Hours (Table) 10/20/19 18:57 Blood Culture - Preliminary Blood No Growth after 24 hours Assessment and Plan Plan: 1 acute COPD exacerbation with secondary shortness of breath. The patient is a chronic smoker. CAT scan of the chest shows marked improvement in the right upper lobe cavitary lesion/fungus ball and the patient was treated with itraconazole in the past. Currently is on routine antibiotics for chlamydia acquired pathogens. He is also on a combination of bronchodilators and steroids. 2 severe oxygen dependent chronic obstructive pulmonary disease, FEV1 value 36% of predicted, the patient is on long-term prednisone at a dose of 10 mg by mouth daily. Dependent at 2 L per minute nasal cannula. He is on Airduo as maintenance 3 Chronic tobacco dependence 4 Recent right upper lobe fungal infection treated with Sporanox and Augmentin, and near complete resolution on chest x-ray. No worse since 07/19/2019. 5 History of PE/DVT, anticoagulated with Eliquis and the patient has been taken off warfarin 6 History of CVA involving the basal ganglia October 7 Shingles affecting the right eye status post enucleation 8 Diabetes mellitus, type II 9 GERD 10 History of coronary disease with previous myocardial infarction 11 Avascular necrosis left humeral head followed by orthopedic services in pain clinic Plan Continue same treatment. Review the CAT scan of the chest. Continue bronchodilators. Continue steroids. Smoking cessation counseling.
[2019-10-22 12:23] LABS: Appearance,Urine Clear (Clear); Bilirubin,Urine Negative (Negative); Blood,Urine Negative (Negative); Color,Urine Light Yellow; Glucose,Urine (UA) Negative (Negative); Ketones,Urine Negative (Negative); Leukocyte Esterase,Urine Negative (Negative); Nitrite,Urine Negative (Negative); Protein,Urine Negative (Negative); Specific Gravity,Urine 1.015 (1.001-1.035); Urobilinogen,Urine <2.0 mg/dL (<2.0)
[2019-10-22] MEDS: ALPRAZolam 0.25 MG TAB PO PRN (15:21)
[2019-10-22] MEDS: methylPREDNISolone SOD SUCCI 40 MG/ML 1 ML VIAL IV SCH ×2 (15:22→23:19)
[2019-10-22 16:32] LABS: Glucose,Whole Blood 179 mg/dL (75-99)
[2019-10-22] MEDS: AZITHROMYCIN 500 MG TAB PO SCH (17:18)
[2019-10-22 17:47] LABS: Urine Alcohol Negative (Negative); Urine Barbiturate Negative (Negative); Urine Cocaine Negative (Negative); Urine Methadone Negative (Negative); Urine Opiates Positive (Negative); Urine Phencyclidine Negative (Negative)
--- NOTE | 2019-10-22 18:11 | PN ---
PROGRESS NOTE DATE OF SERVICE: 10/22/2019 This 59-year-old gentleman who was admitted with shortness of breath was thought to have COPD, acute exacerbation, as opposed to pneumonia. The patient also has a right upper lobe cavitary lesion which appears to be improving at this time. The most recent chest films from yesterday are negative. Previously multiple organisms, including corynebacterium, Larissa albicans, and other organisms were grown, including Aspergillus fumigatus also in the sputum culture. No chest pain or palpitations. No fever. PHYSICAL EXAMINATION: Patient is alert, oriented x3. Pulse is 92, blood pressure 160/84, respiration 18, temperature 97.4, pulse ox 99% on room air. HEENT: Conjunctivae normal. NECK: No jugular venous distention. CARDIOVASCULAR SYSTEM: S1, S2 muffled. RESPIRATORY SYSTEM: Breath sounds diminished at the bases. No rhonchi. No crackles. ABDOMEN: Soft, non-tender. No mass palpable. LEGS: No edema. NERVOUS SYSTEM: No focal deficit. LABS: WBC 15.2, hemoglobin 12.3, glucose 135. ASSESSMENT: 1. Chronic obstructive pulmonary disease, acute exacerbation, with acute bibasilar pneumonia, left more than the right, possibly Gram-negative with possible sepsis, present on admission. 2. Right upper lobe cavitary lesion which is improving. Mass lesion is considered to be less likely; possibly cavitating pneumonia. 3. Change in mental status, metabolic encephalopathy, multifactorial. 4. 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 5. History of chest pain, angina. 6. History of chronic obstructive pulmonary disease. 7. History of cerebrovascular accident/transient ischemic attack. 8. History of deep vein thrombosis. 9. Gait dysfunction. 10.Coumadin monitoring and noncompliance possibly. 11.Hypertension. 12.History of myocardial infarction. 13.History of pneumonia. 14.History of pulmonary embolism. 15.History of cerebrovascular accident with basal ganglia hemorrhage. 16.History of right eye blindness. 17.History of right frozen shoulder. 18.Anxiety, depression, panic disorder. 19.History of chronic hypoxic respiratory failure. 20.Continued ongoing nicotine dependence. 21.History of tetrahydrocannabinol. 22.Back pain. RECOMMENDATIONS AND DISCUSSION: I recommend to continue current medications, continue symptomatic treatment. Continue with the steroids. Continue the rest of the medications. Pulmonary consultation. Otherwise, continue to monitor. Guarded prognosis. Further recommendations to follow. MMODL / IJN: [id number] /
[2019-10-22 20:30] LABS: Glucose,Whole Blood 177 mg/dL (75-99)
[2019-10-22] MEDS: MELATONIN 5 MG TABLET PO SCH (21:04)
[2019-10-22] MEDS: MONTELUKAST 10 MG TAB PO SCH (21:05)
--- NOTE | 2019-10-22 23:40 | PN ---
PROGRESS NOTE DATE OF SERVICE: 10/22/2019 REASON FOR FOLLOWUP: Pneumonia. INTERVAL HISTORY: The patient is currently afebrile. He has been breathing comfortably. Denies having any chest pain. Cough but no sputum. No nausea, no vomiting. No abdominal pain or diarrhea. PHYSICAL EXAMINATION: Blood pressure is 130/73 with a pulse of 102, temperature 98. He is 95% on 2 L nasal cannula. General description is a middle-aged male lying in bed in no distress. RESPIRATORY SYSTEM: Unlabored breathing. Decreased intensity of breath sounds. No wheeze. HEART: S1, S2. Regular rate and rhythm. ABDOMEN: Soft. No tenderness. LABS: Hemoglobin is 12.3, white count 15.2, BUN of 17, creatinine 0.52. Blood culture negative. Sputum has not been collected. DIAGNOSTIC IMPRESSION AND PLAN: Patient admitted to hospital with difficulty breathing, likely chronic obstructive pulmonary disease exacerbation with a concern for possible tracheobronchitis/pneumonia, more likely community-acquired. Clinically not behaving as a resistant Gram-positive or Gram-negative pathogen. The patient is covered with continue. Monitor clinical course closely. MMODL / IJN: [id number] /
[2019-10-23] MEDS: IPRATROPIUM-ALBUTEROL 3 ML NEB INHALATION SCH ×4 (00:40→11:43)
[2019-10-23] MEDS: HYDROcodone/APAP 5-325MG 1 EACH TAB PO PRN ×2 (01:14→11:27)
[2019-10-23] MEDS: ALPRAZolam 0.25 MG TAB PO PRN (01:15)
[2019-10-23] MEDS: NICOTINE 14MG/24HR PATCH TRANSDERM SCH (05:04)
[2019-10-23 07:26] LABS: Glucose,Whole Blood 137 mg/dL (75-99)
[2019-10-23 07:57] LABS: Basophils % (A) 0 %; Eosinophils % (A) 0 %; HCT 32.2 % (39.0-53.0); HGB 10.8 gm/dL (13.0-17.5); Lymphocytes # (A) 0.4 k/uL (1.0-4.8); Lymphocytes % (A) 3 %; MCH 33.5 pg (25.0-35.0); MCHC 33.7 g/dL (31.0-37.0); MCV 99.4 fL (80.0-100.0); Macrocytosis Slight; Monocytes # (A) 0.8 k/uL (0-1.0); Monocytes % (A) 6 %; Neutrophils # (A) 12.3 k/uL (1.3-7.7); Neutrophils % (A) 90 %; Platelet Count 271 k/uL (150-450); RBC 3.24 m/uL (4.30-5.90); RDW 14.5 % (11.5-15.5); WBC 13.6 k/uL (3.8-10.6)
[2019-10-23 08:15] LABS: African American GFR (CKD) >90 (>60 ml/min/1.73 sqM); Anion Gap 4 mmol/L; Blood Urea Nitrogen 19 mg/dL (9-20); Calcium 8.6 mg/dL (8.4-10.2); Carbon Dioxide 33 mmol/L (22-30); Chloride 98 mmol/L (98-107); Glucose 123 mg/dL (74-99); Non-African American GFR(CKD) >90 (>60 ml/min/1.73 sqM); Sodium 135 mmol/L (137-145)
[2019-10-23] MEDS: FORMOTEROL FUMARATE 20 MCG/2 ML NEBU INHALATION SCH (08:41)
[2019-10-23] MEDS: BUDESONIDE 1 MG/2 ML NEBU INHALATION SCH (08:41)
[2019-10-23] MEDS: METOPROLOL TARTRATE 25 MG TAB PO SCH (08:45)
[2019-10-23] MEDS: ASPIRIN 81 MG PO SCH (08:45)
[2019-10-23] MEDS: GABAPENTIN 400 MG CAP PO SCH (08:45)
[2019-10-23] MEDS: ATORVASTATIN 10 MG TAB PO SCH (08:45)
[2019-10-23] MEDS: FOLIC ACID 1 MG TAB PO SCH (08:45)
[2019-10-23] MEDS: APIXABAN 5 MG TAB PO SCH (08:45)
[2019-10-23] MEDS: INSULIN ASPART (NovoLOG) 100 UNIT/ML VIAL SQ SCH ×2 (08:45→12:20)
[2019-10-23] MEDS: amLODIPine 10 MG TAB PO SCH (08:45)
[2019-10-23] MEDS: PANTOPRAZOLE 40 MG TABLET PO SCH (08:45)
[2019-10-23] MEDS: methylPREDNISolone SOD SUCCI 40 MG/ML 1 ML VIAL IV SCH (08:45)
[2019-10-23] MEDS: ESCITALOPRAM 10 MG TAB PO SCH (08:55)
[2019-10-23] MEDS: SODIUM CHLORIDE 0.9% 1,000 ML IV SCH (08:55)
[2019-10-23 09:08] VITALS: BP 137/65; RESP 19; TEMP 98.3
[2019-10-23 11:58] VITALS: PULSE 96
[2019-10-23 12:22] LABS: Glucose,Whole Blood 183 mg/dL (75-99)
--- NOTE | 2019-10-23 12:36 | P.DS ---
Providers Date of admission: 10/20/19 17:14 Expected date of discharge: 10/23/19 Attending physician: Tricia Cano Consults: 10/20/19 18:29 Consult Physician Routine Consulting Provider: Ant Green Consult Reason/Comments: copd Do you want consulting provider notified?: Yes 10/20/19 18:30 Consult Physician Routine Consulting Provider: Gurpreet Owen Consult Reason/Comments: rt upper lobe cavity? Do you want consulting provider notified?: Yes [facility] Course: Final diagnosis Chronic obstructive pulmonary disease, acute exacerbation, with acute bibasilar pneumonia, left more than right, possibly gram-negative with possible sepsis, present on admission Right upper lobe cavitary lesion which is improving. Mass lesion is considered to be less likely; possibly cavitating pneumonia Change in mental status, metabolic encephalopathy, multifactorial History of right upper lobe consolidation, cavitary lesion, thought to be joey al; Aspergillus fumigatus previously History of chest pain, angina History of chronic obstructive pulmonary disease History of cerebrovascular accident, TIA history of deep vein thrombosis Hypertension Gait dysfunction history of myocardial infarction History of pneumonia History of pulmonary embolism history of cerebrovascular accident with basal ganglia hemorrhage History of right eye blindness History of right frozen shoulder Anxiety, depression, panic disorder History of chronic hypoxic respiratory failure Continued ongoing nicotine dependence history of THC use Back pain Discharge disposition Patient is being discharged in a stable condition with guarded prognosis to [facility] for continued PT/OT therapy. Patient will follow-up with Dr. Carrasco in the outpatient setting once discharged. Patient will continue on oral antibiotics in the form of Zithromax for the next 4 days along with oral Ceftin twice daily for the next 10 days and then may discontinue. Patient will also continue on a prednisone taper. Total time taken is 35 minutes. History of present illness This is a 59-year-old male who was recently admitted with shortness of breath was thought to have COPD, acute exacerbation with acute bibasilar pneumonia and was being closely monitored. Pulmonary and infectious disease were following. Patient was started on oral Zithromax along with ceftriaxone and will continue with oral Zithromax to finish the course along with Ceftin for the next 10 days. Patient was also treated with bronchodilators along with IV steroids and will be transitioned to prednisone taper. Patient continues to have weakness and gait dysfunction and needs continued PT/OT therapy. Authorization has been obtained for [facility] on the [address] and patient will be going out today. Patient is to continue on bronchodilators as well. Currently reports of chest pain, shortness of breath, or palpitations. Patient is maintained on 2-3 L of oxygen via nasal cannula and this is chronic. Patient is afebrile. No reports of nausea or vomiting and patient is tolerating diet. Guarded prognosis. On exam vital signs are stable. Temp is 98.3F, pulse is 86, or 19, blood pressure is 137/65, oxygen saturation is 97% on 3 L via nasal cannula. Cardio S1, S2 are muffled. Respiratory system shows diminished breath sounds at the bases with a few scattered rhonchi along with x-ray wheezing noted. Abdomen is soft, obese, nontender. Nervous system shows mild diffuse weakness. Please refer to medication reconciliation sheet for a list of medications. Patient Condition at Discharge: Fair Plan - Discharge Summary Discharge Rx Participant: No New Discharge Prescriptions: New Cefuroxime Axetil [Ceftin] 500 mg PO BID 10 Days #20 tab Nicotine 14Mg/24Hr Patch [Habitrol] 1 patch TRANSDERM DAILY patch Atorvastatin [Lipitor] 10 mg PO DAILY tab Gabapentin [Neurontin] 800 mg PO TID #3 cap HYDROcodone/APAP 5-325MG [[place] 5-325] 1 each PO Q6HR PRN #4 tab PRN Reason: Pain INSULIN ASPART (NovoLOG) [NovoLOG (formulary)] 0 unit SQ ACHS vial Formoterol Fumarate [Perforomist] 20 mcg INHALATION RT-BID nebu predniSONE 10 mg PO DIRECTED #30 tab Budesonide [Pulmicort] 1 mg INHALATION RT-BID ml Montelukast [Singulair] 10 mg PO HS tab Azithromycin [Zithromax] 500 mg PO Q24H 4 Days #4 tab Continue amLODIPine [Norvasc] 10 mg PO DAILY Escitalopram [Lexapro] 10 mg PO DAILY #15 tab Ipratropium-Albuterol Nebulize [Duoneb 0.5 mg-3 mg/3 ml Soln] 3 ml INHALATION RT-QID PRN PRN Reason: Shortness Of Breath Melatonin 10 mg PO HS Metoprolol Tartrate [Lopressor] 25 mg PO BID #60 tab Acetaminophen Tab [Tylenol] 1,000 mg PO Q4H PRN PRN Reason: Pain Albuterol Nebulized [Ventolin Nebulized] 2.5 mg INHALATION RT-QID PRN PRN Reason: Shortness Of Breath Gabapentin [Neurontin] 600 mg PO Q8H Meclizine [Antivert] 12.5 mg PO Q12H Famotidine 10 mg PO Q12H Apixaban [Eliquis] 5 mg PO Q12H Pantoprazole Sodium [Protonix] 40 mg PO DAILY@0600 Folic Acid 1 mg PO DAILY Aspirin EC [Ecotrin Low Dose] 81 mg PO DAILY ALPRAZolam [Xanax] 0.25 mg PO BID PRN #3 tab PRN Reason: Anxiety Discontinued predniSONE 10 mg PO DAILY traMADol HCL 50 mg PO Q8H PRN PRN Reason: Pain Amoxicillin 500 mg PO TID@0900,1300,2100 Discharge Medication List amLODIPine [Norvasc] 10 mg PO DAILY 04/29/19 [History] Escitalopram [Lexapro] 10 mg PO DAILY #15 tab 05/15/19 [Rx] Ipratropium-Albuterol Nebulize [Duoneb 0.5 mg-3 mg/3 ml Soln] 3 ml INHALATION RT-QID PRN 06/13/19 [History] Melatonin 10 mg PO HS 08/12/19 [History] Metoprolol Tartrate [Lopressor] 25 mg PO BID #60 tab 09/30/19 [Rx] Acetaminophen Tab [Tylenol] 1,000 mg PO Q4H PRN 10/20/19 [History] Albuterol Nebulized [Ventolin Nebulized] 2.5 mg INHALATION RT-QID PRN 10/20/19 [History] Apixaban [Eliquis] 5 mg PO Q12H 10/20/19 [History] Aspirin EC [Ecotrin Low Dose] 81 mg PO DAILY 10/20/19 [History] Famotidine 10 mg PO Q12H 10/20/19 [History] Folic Acid 1 mg PO DAILY 10/20/19 [History] Gabapentin [Neurontin] 600 mg PO Q8H 10/20/19 [History] Meclizine [Antivert] 12.5 mg PO Q12H 10/20/19 [History] Pantoprazole Sodium [Protonix] 40 mg PO DAILY@0600 10/20/19 [History] ALPRAZolam [Xanax] 0.25 mg PO BID PRN #3 tab 10/23/19 [Rx] Atorvastatin [Lipitor] 10 mg PO DAILY tab 10/23/19 [Rx] Azithromycin [Zithromax] 500 mg PO Q24H 4 Days #4 tab 10/23/19 [Rx] Budesonide [Pulmicort] 1 mg INHALATION RT-BID ml 10/23/19 [Rx] Cefuroxime Axetil [Ceftin] 500 mg PO BID 10 Days #20 tab 10/23/19 [Rx] Formoterol Fumarate [Perforomist] 20 mcg INHALATION RT-BID nebu 10/23/19 [Rx] Gabapentin [Neurontin] 800 mg PO TID #3 cap 10/23/19 [Rx] HYDROcodone/APAP 5-325MG [[place] 5-325] 1 each PO Q6HR PRN #4 tab 10/23/19 [Rx] INSULIN ASPART (NovoLOG) [NovoLOG (formulary)] 0 unit SQ ACHS vial 10/23/19 [Rx] Montelukast [Singulair] 10 mg PO HS tab 10/23/19 [Rx] Nicotine 14Mg/24Hr Patch [Habitrol] 1 patch TRANSDERM DAILY patch 10/23/19 [Rx] predniSONE 10 mg PO DIRECTED #30 tab 10/23/19 [Rx] Follow up Appointment(s)/Referral(s): [facility], [NON-STAFF] - As Needed (palliative care) Urszula Carrasco MD [Primary Care Provider] - 1-2 days [facility] on the [facility], [NON-STAFF] - As Needed Activity/Diet/Wound Care/Special Instructions: Patient is going to [facility] on the [address] Continue with antibiotics until finished Continue with prednisone taper Follow-up with primary care provider upon discharge Continue to avoid all tobacco use Continue current diet Continue monitoring blood sugars before meals at bedtime and treat accordingly with sliding scale Activity as tolerated Discharge Disposition: TRANSFER TO SNF/ECF
== END 2019-10-23 14:33 | DRG 871 ==
LOC: EC 13:43 → 4SSUR 17:14
PROVIDERS: ADMIT Hospitalist; ATTEND Hospitalist
DX: A41.50 Gram-negative sepsis, unspecified (principal); G93.41 Metabolic encephalopathy; J44.1 Chronic obstructive pulmonary disease with (acute) exacerbation; J44.0 Chronic obstructive pulmonary disease with (acute) lower respiratory infection; J96.11 Chronic respiratory failure with hypoxia; M87.9 Osteonecrosis, unspecified; J84.9 Interstitial pulmonary disease, unspecified; F32.9 Major depressive disorder, single episode, unspecified; F41.0 Panic disorder [episodic paroxysmal anxiety]; K21.9 Gastro-esophageal reflux disease without esophagitis; I25.10 Atherosclerotic heart disease of native coronary artery without angina pectoris; I10 Essential (primary) hypertension; F17.200 Nicotine dependence, unspecified, uncomplicated; E66.9 Obesity, unspecified; R26.9 Unspecified abnormalities of gait and mobility; M54.9 Dorsalgia, unspecified; E11.9 Type 2 diabetes mellitus without complications; H54.61 Unqualified visual loss, right eye, normal vision left eye; I25.2 Old myocardial infarction; Z91.018 Allergy to other foods; Z91.010 Allergy to peanuts; Z91.19 Patient's noncompliance with other medical treatment and regimen; Z87.01 Personal history of pneumonia (recurrent); Z86.73 Personal history of transient ischemic attack (TIA), and cerebral infarction without residual deficits; Z86.718 Personal history of other venous thrombosis and embolism; Z86.711 Personal history of pulmonary embolism; Z82.5 Family history of asthma and other chronic lower respiratory diseases; Z80.8 Family history of malignant neoplasm of other organs or systems; Z80.51 Family history of malignant neoplasm of kidney; Z79.899 Other long term (current) drug therapy; Z79.82 Long term (current) use of aspirin; Z79.01 Long term (current) use of anticoagulants; Z97.0 Presence of artificial eye
CPT/HCPCS: 36415; 71046; 71260; 80048; 80053; 80306; 81003; 82550; 83605; 83735; 83880; 84484; 85025; 85610; 85730; 87040; 93005; 94640; 94760; 96365; 96366; 99291

== ENCOUNTER 2019-11-06 14:24 | Inpatient (IN) | payer OTHER ==
[2019-11-06] MEDS ORDERED: IPRATROPIUM-ALBUTEROL 3 ML NEB INHALATION STA ×3 (14:35→17:50)
[2019-11-06] MEDS ORDERED: methylPREDNISolone SOD SUCCI 125 MG/2 ML VIAL IV STA (14:35)
[2019-11-06 14:51] LABS: Basophils % (A) 0 %; Eosinophils # (A) 0.1 k/uL (0-0.7); Eosinophils % (A) 1 %; HCT 37.2 % (39.0-53.0); Lymphocytes # (A) 1.5 k/uL (1.0-4.8); Lymphocytes % (A) 13 %; MCH 31.9 pg (25.0-35.0); MCHC 32.3 g/dL (31.0-37.0); MCV 98.8 fL (80.0-100.0); Macrocytosis Slight; Mean Platelet Volume 6.6; Monocytes # (A) 0.9 k/uL (0-1.0); Monocytes % (A) 7 %; Neutrophils # (A) 9.5 k/uL (1.3-7.7); Neutrophils % (A) 77 %; Platelet Count 345 k/uL (150-450); RBC 3.76 m/uL (4.30-5.90); RDW 14.9 % (11.5-15.5); WBC 12.3 k/uL (3.8-10.6)
--- NOTE | 2019-11-06 14:56 | ED ---
SOB HPI - General Chief Complaint: Shortness of Breath Stated Complaint: SOB Time Seen by Provider: 11/06/19 14:35 Source: patient, RN notes reviewed Mode of arrival: ambulatory Limitations: no limitations - History of Present Illness Initial Comments: This is a 59-year-old male history of COPD who recently was admitted for COPD and was also recently admitted and discharged from a rehab facility for lower extremity rehab who states he started developing shortness of breath last evening. He denies any fevers chills sweats or chest pain shortness of breath refractory to his home medication. Patient was brought in by EMS. MD Complaint: shortness of breath - Related Data Home Medications Medication Instructions Recorded Confirmed amLODIPine [Norvasc] 10 mg PO DAILY 04/29/19 10/20/19 Ipratropium-Albuterol Nebulize 3 ml INHALATION RT-QID PRN 06/13/19 10/20/19 [Duoneb 0.5 mg-3 mg/3 ml Soln] Melatonin 10 mg PO HS 08/12/19 10/20/19 Acetaminophen Tab [Tylenol] 1,000 mg PO Q4H PRN 10/20/19 10/20/19 Albuterol Nebulized [Ventolin 2.5 mg INHALATION RT-QID PRN 10/20/19 10/20/19 Nebulized] Apixaban [Eliquis] 5 mg PO Q12H 10/20/19 10/20/19 Aspirin EC [Ecotrin Low Dose] 81 mg PO DAILY 10/20/19 10/20/19 Famotidine 10 mg PO Q12H 10/20/19 10/20/19 Folic Acid 1 mg PO DAILY 10/20/19 10/20/19 Gabapentin [Neurontin] 600 mg PO Q8H 10/20/19 10/20/19 Meclizine [Antivert] 12.5 mg PO Q12H 10/20/19 10/20/19 Pantoprazole Sodium [Protonix] 40 mg PO DAILY@0600 10/20/19 10/20/19 Previous Rx's Medication Instructions Recorded Escitalopram [Lexapro] 10 mg PO DAILY #15 tab 05/15/19 Metoprolol Tartrate [Lopressor] 25 mg PO BID #60 tab 09/30/19 ALPRAZolam [Xanax] 0.25 mg PO BID PRN #3 tab 10/23/19 Atorvastatin [Lipitor] 10 mg PO DAILY tab 10/23/19 Azithromycin [Zithromax] 500 mg PO Q24H 4 Days #4 tab 10/23/19 Budesonide [Pulmicort] 1 mg INHALATION RT-BID ml 10/23/19 Budesonide-Formot 160-4.5 Mcg 2 puff INHALATION BID #1 inhaler 10/23/19 [Symbicort 160-4.5 Mcg Inhaler] Cefuroxime Axetil [Ceftin] 500 mg PO BID 10 Days #20 tab 10/23/19 Gabapentin [Neurontin] 800 mg PO TID #3 cap 10/23/19 HYDROcodone/APAP 5-325MG [[place] 1 each PO Q6HR PRN #4 tab 10/23/19 5-325] INSULIN ASPART (NovoLOG) [NovoLOG 0 unit SQ ACHS vial 10/23/19 (formulary)] Montelukast [Singulair] 10 mg PO HS tab 10/23/19 Nicotine 14Mg/24Hr Patch [Habitrol] 1 patch TRANSDERM DAILY patch 10/23/19 predniSONE 10 mg PO DIRECTED #30 tab 10/23/19 Allergies Allergy/AdvReac Type Severity Reaction Status Date / Time tree nut [Nut] Allergy Unknown Dyspnea, Verified 11/06/19 14:29 Rash/Hives peanut [Peanut Butter] AdvReac Dyspnea, Verified 11/06/19 14:29 Rash/Hives Review of Systems ROS Statement: Those systems with pertinent positive or pertinent negative responses have been documented in the HPI. ROS Other: All systems not noted in ROS Statement are negative. Past Medical History Past Medical History: Chest Pain / Angina, COPD, CVA/TIA, Deep Vein Thrombosis (DVT), Hypertension, Myocardial Infarction (GA), Pneumonia, Pulmonary Embolus (PE), Respiratory Disorder, Skin Disorder Additional Past Medical History / Comment(s): R upper lobe consolidation thought to be fungal/+asperigillus fumigatus, chronic hypoxic respiratory failure/ home O2 at 2L/NC ATC, past shingles 2016 which caused R eye blindness/pt states he presently has a rash/ reoccurrence of shingles at this time, 2014 CVA-basal ganglia hemorrhage with R arm weakness, R frozen shoulder, recent L shoulder injury and needs a sling (present sling fell apart) and will need surgical intervention, chronic chest pain since CVA when he also had rib fractures, pt unsure if he had a GA in the past or not. Last Myocardial Infarction Date:: unknown History of Any Multi-Drug Resistant Organisms: None Reported Past Surgical History: Orthopedic Surgery Additional Past Surgical History / Comment(s): metal plate left hand middle finger, right eye enucleation. Past Anesthesia/Blood Transfusion Reactions: No Reported Reaction Past Psychological History: Anxiety, Depression, Panic Disorder Smoking Status: Current every day smoker Past Alcohol Use History: Occasional Past Drug Use History: Marijuana - Past Family History Mother Family Medical History: Cancer Additional Family Medical History / Comment(s): Pt believes his Mom of Kidney Cancer Father Family Medical History: Cancer, COPD, Respiratory Disorder Additional Family Medical History / Comment(s): Melanoma General Exam - General Exam Comments Initial Comments: This is a well-developed well-nourished awake alert oriented times 3 male Limitations: no limitations General appearance: alert, anxious, in distress Head exam: Present: atraumatic, normocephalic, normal inspection Eye exam: Present: normal appearance, PERRL, EOMI. Absent: scleral icterus, conjunctival injection, periorbital swelling ENT exam: Present: normal exam, mucous membranes moist Neck exam: Present: normal inspection. Absent: tenderness, meningismus, lymph adenopathy Respiratory exam: Present: accessory muscle use, decreased breath sounds. Absent: respiratory distress, wheezes, rales, rhonchi, stridor Cardiovascular Exam: Present: normal rhythm, tachycardia, normal heart sounds. Absent: systolic murmur, diastolic murmur, rubs, gallop, clicks GI/Abdominal exam: Present: soft, normal bowel sounds. Absent: distended, tenderness, guarding, rebound, rigid Extremities exam: Present: normal inspection, full ROM, normal capillary refill. Absent: tenderness, pedal edema, joint swelling, calf tenderness Back exam: Present: normal inspection Neurological exam: Present: alert, oriented X3, CN II-XII intact Psychiatric exam: Present: normal affect, normal mood Skin exam: Present: warm, dry, intact, normal color. Absent: rash Course Vital Signs 11/06/19 11/06/19 11/06/19 14:25 15:07 15:21 Temperature 98.9 F Pulse Rate 114 H 106 H 106 H Respiratory 20 Rate Blood Pressure 119/81 O2 Sat by Pulse 95 Oximetry 11/06/19 11/06/19 11/06/19 15:25 15:26 16:00 Temperature Pulse Rate 109 H 107 H 109 H Respiratory 20 20 22 Rate Blood Pressure 120/72 129/65 129/65 O2 Sat by Pulse 94 L 94 L 95 Oximetry 11/06/19 11/06/19 11/06/19 16:33 16:44 17:00 Temperature Pulse Rate 104 H 104 H 105 H Respiratory 18 Rate Blood Pressure 138/86 O2 Sat by Pulse 94 L Oximetry - Reevaluation(s) Reevaluation #1: 11/06/19 18:12 Reevaluation patient several occasions revealed minimal improvement thus far he did have increased aeration however and basilar rhonchi are noted on the right. Medical Decision Making - Medical Decision Making Patient had minimal improvement with multiple updraft treatments he was given IV magnesium as well as IV steroids patient will be admitted for inpatient treatment of pneumonia and COPD I did discuss case with Ar Byers who is covering for Dr. Cano - Lab Data Result diagrams: 11/06/19 14:42 11/06/19 14:42 Lab Results 11/06/19 11/06/19 11/06/19 Range/Units 14:42 14:42 14:42 WBC 12.3 H (3.8-10.6) k/uL RBC 3.76 L (4.30-5.90) m/uL Hgb 12.0 L (13.0-17.5) gm/dL Hct 37.2 L (39.0-53.0) % MCV 98.8 (80.0-100.0) fL MCH 31.9 (25.0-35.0) pg MCHC 32.3 (31.0-37.0) g/dL RDW 14.9 (11.5-15.5) % Plt Count 345 (150-450) k/uL Neutrophils % 77 % Lymphocytes % 13 % Monocytes % 7 % Eosinophils % 1 % Basophils % 0 % Neutrophils # 9.5 H (1.3-7.7) k/uL Lymphocytes # 1.5 (1.0-4.8) k/uL Monocytes # 0.9 (0-1.0) k/uL Eosinophils # 0.1 (0-0.7) k/uL Basophils # 0.0 (0-0.2) k/uL Macrocytosis Slight PT 9.5 (9.0-12.0) sec INR 0.9 (<1.2) APTT 23.5 (22.0-30.0) sec Sodium 135 L (137-145) mmol/L Potassium 4.1 (3.5-5.1) mmol/L Chloride 97 L (98-107) mmol/L Carbon Dioxide 33 H (22-30) mmol/L Anion Gap 5 mmol/L BUN 16 (9-20) mg/dL Creatinine 0.51 L (0.66-1.25) mg/dL Est GFR (CKD-EPI)AfAm >90 (>60 ml/min/1.73 sqM) Est GFR (CKD-EPI)NonAf >90 (>60 ml/min/1.73 sqM) Glucose 91 (74-99) mg/dL Plasma Lactic Acid Gray (0.7-2.0) mmol/L Calcium 9.5 (8.4-10.2) mg/dL Magnesium 1.8 (1.6-2.3) mg/dL Total Bilirubin 0.8 (0.2-1.3) mg/dL AST 23 (17-59) U/L ALT 29 (4-49) U/L Alkaline Phosphatase 66 (38-126) U/L Creatine Kinase 37 L (55-170) U/L Troponin I (0.000-0.034) ng/mL NT-Pro-B Natriuret Pep pg/mL Total Protein 6.3 (6.3-8.2) g/dL Albumin 3.9 (3.5-5.0) g/dL 11/06/19 11/06/19 11/06/19 Range/Units 14:42 14:42 14:42 WBC (3.8-10.6) k/uL RBC (4.30-5.90) m/uL Hgb (13.0-17.5) gm/dL Hct (39.0-53.0) % MCV (80.0-100.0) fL MCH (25.0-35.0) pg MCHC (31.0-37.0) g/dL RDW (11.5-15.5) % Plt Count (150-450) k/uL Neutrophils % % Lymphocytes % % Monocytes % % Eosinophils % % Basophils % % Neutrophils # (1.3-7.7) k/uL Lymphocytes # (1.0-4.8) k/uL Monocytes # (0-1.0) k/uL Eosinophils # (0-0.7) k/uL Basophils # (0-0.2) k/uL Macrocytosis PT (9.0-12.0) sec INR (<1.2) APTT (22.0-30.0) sec Sodium (137-145) mmol/L Potassium (3.5-5.1) mmol/L Chloride (98-107) mmol/L Carbon Dioxide (22-30) mmol/L Anion Gap mmol/L BUN (9-20) mg/dL Creatinine (0.66-1.25) mg/dL Est GFR (CKD-EPI)AfAm (>60 ml/min/1.73 sqM) Est GFR (CKD-EPI)NonAf (>60 ml/min/1.73 sqM) Glucose (74-99) mg/dL Plasma Lactic Acid Gray 1.4 (0.7-2.0) mmol/L Calcium (8.4-10.2) mg/dL Magnesium (1.6-2.3) mg/dL Total Bilirubin (0.2-1.3) mg/dL AST (17-59) U/L ALT (4-49) U/L Alkaline Phosphatase (38-126) U/L Creatine Kinase (55-170) U/L Troponin I <0.012 (0.000-0.034) ng/mL NT-Pro-B Natriuret Pep 64 pg/mL Total Protein (6.3-8.2) g/dL Albumin (3.5-5.0) g/dL - EKG Data -: EKG Interpreted by Ut EKG shows normal: sinus rhythm (Sinus tachycardia of [id number] QRS duration 76 QT since QTC 360/437 nonspecific T-wave configuration.) - Radiology Data Radiology results: report reviewed (Imaging shows evidence of right lower lobe and right upper lobe infiltrate), image reviewed Critical Care Time Critical Care Time: Yes Critical Care Time: 31 minutes of critical care time which includes initial presentation was history physical labs x-rays multiple reevaluation the patient to responsive therapy. Review of old charting discussed with the admitting physician Disposition Clinical Impression: Acute exacerbation of chronic obstructive pulmonary disease (COPD), Pneumonia, Leukocytosis Disposition: ADMITTED IP TO THIS HOSP Condition: Fair Referrals: Urszula Carrasco MD [Primary Care Provider] - 1-2 days
[2019-11-06 15:00] LABS: INR 0.9 (<1.2); Partial Thromboplastin Time 23.5 sec (22.0-30.0); Prothrombin Time 9.5 sec (9.0-12.0)
[2019-11-06 15:03] LABS: ALT 29 U/L (4-49); AST 23 U/L (17-59); African American GFR (CKD) >90 (>60 ml/min/1.73 sqM); Albumin 3.9 g/dL (3.5-5.0); Alkaline Phosphatase 66 U/L (38-126); Anion Gap 5 mmol/L; Blood Urea Nitrogen 16 mg/dL (9-20); Calcium 9.5 mg/dL (8.4-10.2); Carbon Dioxide 33 mmol/L (22-30); Chloride 97 mmol/L (98-107); Creatine Kinase 37 U/L (55-170); Glucose 91 mg/dL (74-99); Magnesium 1.8 mg/dL (1.6-2.3); Non-African American GFR(CKD) >90 (>60 ml/min/1.73 sqM); Potassium 4.1 mmol/L (3.5-5.1); Sodium 135 mmol/L (137-145); Total Bilirubin 0.8 mg/dL (0.2-1.3); Total Protein 6.3 g/dL (6.3-8.2)
--- NOTE | 2019-11-06 15:45 | XR ---
EXAMINATION TYPE: XR chest 2V DATE OF EXAM: 11/06/2019 COMPARISON: Chest x-ray and CT chest October 21, 2019. HISTORY: History of COPD with shortness of breath TECHNIQUE: Frontal and lateral views of the chest are obtained. FINDINGS: Overlying EKG leads are present. There is chronic emphysematous and parenchymal changes bi laterally with slightly more prominent focal right basilar and upper lung opacity. No pleural effusio n or pneumothorax seen bilaterally. The cardiac silhouette size is stable and mildly enlarged. The osseous structures are demineralized. IMPRESSION: Mild cardiomegaly and chronic parenchymal changes with developing right basilar and upper lung acute infiltrates and/or atelectasis.
[2019-11-06] MEDS ORDERED: MAGNESIUM SULFATE-D5W PMX 1 GM in DEXTROSE/WATER 1 100ML.BAG IVPB ONE (16:04)
[2019-11-06] MEDS ORDERED: cefTRIAXone IN SWFI 1,000 MG/10 ML SYRINGE IVP STA (16:04)
[2019-11-06] MEDS ORDERED: PNEUMONIA PROTOCOL UTILIZED 1 EACH MISC PO PRN (18:18)
[2019-11-06] MEDS ORDERED: AZITHROMYCIN 500 MG in SODIUM CHLORIDE 0.9% 250 ML IVPB STA (18:18)
[2019-11-06] MEDS: SODIUM CHLORIDE 0.9% 1,000 ML IV SCH (18:45)
[2019-11-06] MEDS: HYDROcodone/APAP 5-325MG 1 EACH TAB PO PRN (20:20)
[2019-11-06] MEDS: IPRATROPIUM-ALBUTEROL 3 ML NEB INHALATION SCH ×2 (20:21→23:11)
[2019-11-06] MEDS: APIXABAN 5 MG TAB PO SCH (20:21)
[2019-11-06] MEDS: GABAPENTIN 400 MG CAP PO SCH (20:22)
[2019-11-06] MEDS: MONTELUKAST 10 MG TAB PO SCH (20:22)
[2019-11-06] MEDS: METOPROLOL TARTRATE 25 MG TAB PO SCH (20:22)
[2019-11-06] MEDS: MELATONIN 5 MG TABLET PO SCH (20:22)
[2019-11-06] MEDS: MECLIZINE 12.5 MG TAB PO SCH (21:11)
[2019-11-07] MEDS: SODIUM CHLORIDE 0.9% 1,000 ML IV SCH ×2 (03:26→13:33)
[2019-11-07] MEDS: IPRATROPIUM-ALBUTEROL 3 ML NEB INHALATION SCH ×5 (04:13→19:17)
[2019-11-07] MEDS: PANTOPRAZOLE 40 MG TABLET PO SCH (05:09)
[2019-11-07] MEDS: MECLIZINE 12.5 MG TAB PO SCH ×2 (07:40→21:22)
[2019-11-07] MEDS: ASPIRIN 81 MG PO SCH (07:41)
[2019-11-07] MEDS: FAMOTIDINE 20 MG TAB PO SCH (07:41)
[2019-11-07] MEDS: GABAPENTIN 400 MG CAP PO SCH ×3 (07:41→21:21)
[2019-11-07] MEDS: ESCITALOPRAM 10 MG TAB PO SCH (07:41)
[2019-11-07] MEDS: APIXABAN 5 MG TAB PO SCH ×2 (07:41→21:22)
[2019-11-07] MEDS: METOPROLOL TARTRATE 25 MG TAB PO SCH ×2 (07:41→21:22)
[2019-11-07] MEDS: FOLIC ACID 1 MG TAB PO SCH (07:41)
[2019-11-07] MEDS: amLODIPine 10 MG TAB PO SCH (07:42)
[2019-11-07] MEDS: ATORVASTATIN 10 MG TAB PO SCH (07:42)
[2019-11-07] MEDS: HYDROcodone/APAP 5-325MG 1 EACH TAB PO PRN ×2 (07:42→15:45)
[2019-11-07] MEDS: NICOTINE 14MG/24HR PATCH TRANSDERM SCH (07:43)
--- NOTE | 2019-11-07 08:56 | XR ---
EXAMINATION TYPE: XR chest 2V DATE OF EXAM: 11/07/2019 HISTORY: pneumonia. REFERENCE: Previous study dated 11/06/2019. FINDINGS: Lung volumes are prominent. Right upper lobe airspace disease has decreased. There is incre asing atelectasis at the left lung base. There is also atelectasis at the right lung base. I could no t exclude tiny, bilateral effusions. Heart size upper limits of normal. IMPRESSION: IMPROVED AERATION, BOTH LUNGS.
[2019-11-07 12:35] LABS: Basophils % (A) 0 %; Eosinophils % (A) 0 %; HCT 34.2 % (39.0-53.0); HGB 11.2 gm/dL (13.0-17.5); Lymphocytes # (A) 0.5 k/uL (1.0-4.8); Lymphocytes % (A) 4 %; MCH 32.5 pg (25.0-35.0); MCHC 32.6 g/dL (31.0-37.0); MCV 99.7 fL (80.0-100.0); Macrocytosis Slight; Mean Platelet Volume 7.2; Monocytes % (A) 8 %; Neutrophils # (A) 11.3 k/uL (1.3-7.7); Neutrophils % (A) 87 %; Platelet Count 347 k/uL (150-450); RBC 3.44 m/uL (4.30-5.90); RDW 14.7 % (11.5-15.5)
--- NOTE | 2019-11-07 12:36 | P.HPIM ---
History of Present Illness Patient is a 59-year-old male with a known history of COPD and chronic hypoxic respiratory failure on home oxygen 2 L where nausea cannula, history of CVA, nicotine addiction and chronic left shoulder pain, hypertension and acid reflux and history of coronary artery disease and has history of MN, DVT/PE on Eliquis. recently treated a few months ago for right upper lobe cavitary pneumonia with questionable possible fungal infection that responded to therapy , Several hospitalization for above problem. Presents because of shortness of breath and intermittent coughing which is clear-green in color, with the same chronic pain and no acute exacerbation pain, associated with weakness, with no change in mental status, no change in urine or bowel habits. Vitas looks stable on admission. Labs showing leukocytosis of 12.3k,Hemoglobin is 12.0, INR is 0.9 Sodium 135, creatinine 0.4, glucose 91. Troponin is negative, EKG showing sinus tachycardia at [address]-T changes and QTC of 437, chest x-ray showing developing right basilar and upper lung acute infiltrate and/or atelectasis suspicious for worsening pneumonia. On admission patient was continued on Zithromax and Rocephin Review of Systems CONSTITUTIONAL: No fever, no malaise, no fatigue. HEENT: No recent visual problems or hearing problems. Denied any sore throat. CARDIOVASCULAR: No orthopnea, PND, no palpitations, no syncope. PULMONARY: No shortness of breath, no cough, no hemoptysis. GASTROINTESTINAL: No diarrhea, no nausea, no vomiting, no abdominal pain. Normoactive bowel sounds. NEUROLOGICAL: No headaches, no weakness, no numbness. HEMATOLOGICAL: Denies any bleeding or petechiae. GENITOURINARY: Denies any burning micturition, frequency, or urgency. MUSCULOSKELETAL/RHEUMATOLOGICAL: Denies any joint pain, swelling, or any muscle pain. ENDOCRINE: Denies any polyuria or polydipsia. 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 Last Myocardial Infarction Date:: unknown History of Any Multi-Drug Resistant Organisms: None Reported Past Surgical History: Orthopedic Surgery Additional Past Surgical History / Comment(s): metal plate left hand middle finger, right eye enucleation. Past Anesthesia/Blood Transfusion Reactions: No Reported Reaction Past Psychological History: Anxiety, Depression, Panic Disorder Additional Psychological History / Comment(s): Lives in apartment. Has a nebu lizer/oxygen. 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 Smoking Status: Former smoker Past Alcohol Use History: Occasional Additional Past Alcohol Use History / Comment(s): STARTED SMOKING 1975 08 PPD- PT STATED HE DRINKS 1 BEER a day Past Drug Use History: Marijuana Additional Drug Use History / Comment(s): Pt states he uses marajuana at times. - Past Family History Mother Family Medical History: Cancer Additional Family Medical History / Comment(s): Pt believes his Mom of Kidney Cancer Father Family Medical History: Cancer, COPD, Respiratory Disorder Additional Family Medical History / Comment(s): Melanoma Medications and Allergies Home Medications Medication Instructions Recorded Confirmed Type amLODIPine [Norvasc] 10 mg PO DAILY 04/29/19 11/06/19 History Escitalopram [Lexapro] 10 mg PO DAILY #15 tab 05/15/19 11/06/19 Rx Ipratropium-Albuterol Nebulize 3 ml INHALATION RT-QID PRN 06/13/19 11/06/19 History [Duoneb 0.5 mg-3 mg/3 ml Soln] Melatonin 10 mg PO HS 08/12/19 11/06/19 History Metoprolol Tartrate [Lopressor] 25 mg PO BID #60 tab 09/30/19 11/06/19 Rx Acetaminophen Tab [Tylenol] 1,000 mg PO Q4H PRN 10/20/19 11/06/19 History Apixaban [Eliquis] 5 mg PO Q12H 10/20/19 11/06/19 History Aspirin EC [Ecotrin Low Dose] 81 mg PO DAILY 10/20/19 11/06/19 History Famotidine 10 mg PO Q12H 10/20/19 11/06/19 History Folic Acid 1 mg PO DAILY 10/20/19 11/06/19 History Meclizine [Antivert] 12.5 mg PO Q12H 10/20/19 11/06/19 History Pantoprazole Sodium [Protonix] 40 mg PO DAILY@0600 10/20/19 11/06/19 History ALPRAZolam [Xanax] 0.25 mg PO BID PRN #3 tab 10/23/19 11/06/19 Rx Atorvastatin [Lipitor] 10 mg PO DAILY tab 10/23/19 11/06/19 Rx Budesonide [Pulmicort] 1 mg INHALATION RT-BID ml 10/23/19 11/06/19 Rx Budesonide-Formot 160-4.5 Mcg 2 puff INHALATION BID #1 inhaler 10/23/19 11/06/19 Rx [Symbicort 160-4.5 Mcg Inhaler] Gabapentin [Neurontin] 800 mg PO TID #3 cap 10/23/19 11/06/19 Rx HYDROcodone/APAP 5-325MG [[place] 1 each PO Q6HR PRN #4 tab 10/23/19 11/06/19 Rx 5-325] Montelukast [Singulair] 10 mg PO HS tab 10/23/19 11/06/19 Rx Nicotine 14Mg/24Hr Patch [Habitrol] 1 patch TRANSDERM DAILY patch 10/23/19 11/06/19 Rx Allergies Allergy/AdvReac Type Severity Reaction Status Date / Time tree nut [Nut] Allergy Unknown Dyspnea, Verified 11/06/19 18:44 Rash/Hives peanut [Peanut Butter] AdvReac Dyspnea, Verified 11/06/19 18:44 Rash/Hives Physical Exam Vitals: Vital Signs Temp Pulse Pulse Resp BP BP Pulse Ox 11/07/19 11:57 100 11/07/19 11:45 100 11/07/19 08:36 104 H 11/07/19 08:25 104 H 11/07/19 05:00 97.9 F 83 20 126/76 97 11/07/19 04:26 103 H 11/07/19 04:16 101 H 11/06/19 23:21 102 H 11/06/19 23:13 100 11/06/19 20:30 98.2 F 100 20 113/67 94 L 11/06/19 20:25 104 H 11/06/19 19:00 104 H 19 138/71 96 11/06/19 18:20 102 H 11/06/19 18:11 102 H 11/06/19 18:00 98 F 104 H 20 105/54 95 11/06/19 17:00 105 H 18 138/86 94 L 11/06/19 16:44 104 H 11/06/19 16:33 104 H 11/06/19 16:00 109 H 22 129/65 95 11/06/19 15:26 107 H 20 129/65 94 L 11/06/19 15:25 109 H 20 120/72 94 L 11/06/19 15:21 106 H 11/06/19 15:07 106 H 11/06/19 14:25 98.9 F 114 H 20 119/81 95 Intake and Output 11/06/19 11/07/19 11/07/19 22:59 06:59 14:59 Intake Total 540 100 50 Balance 540 100 50 Intake: IV 50 cefTRIAXone 1 gm In 50 Sodium Chloride 0.9% 50 ml @ 100 mls/hr IVPB Q24HR [facility] Rx#:[id number] Oral 540 100 Other: # Voids 1 Weight 80.286 kg GENERAL: The patient is alert and oriented x3, not in any acute distress. Well developed, well nourished. HEENT: Pupils are round and equally reacting to light. EOMI. No scleral icterus. No conjunctival pallor. Normocephalic, atraumatic. No pharyngeal erythema. No thyromegaly. CARDIOVASCULAR: S1 and S2 present. No murmurs, rubs, or gallops. PULMONARY: Chest is clear to auscultation, bilateral expiratory scattered wheezing with no crackles. ABDOMEN: Soft, nontender, nondistended, normoactive bowel sounds. No palpable organomegaly. MUSCULOSKELETAL: No joint swelling or deformity. EXTREMITIES: No cyanosis, clubbing, or pedal edema. NEUROLOGICAL: Gross neurological examination did not reveal any focal deficits. SKIN: No rashes. No petechiae Results CBC & Chem 7: 11/06/19 14:42 03/20/20 14:42 Labs: Abnormal Lab Results - Last 24 Hours (Table) 11/06/19 11/06/19 Range/Units 14:42 14:42 WBC 12.3 H (3.8-10.6) k/uL RBC 3.76 L (4.30-5.90) m/uL Hgb 12.0 L (13.0-17.5) gm/dL Hct 37.2 L (39.0-53.0) % Neutrophils # 9.5 H (1.3-7.7) k/uL Sodium 135 L (137-145) mmol/L Chloride 97 L (98-107) mmol/L Carbon Dioxide 33 H (22-30) mmol/L Creatinine 0.51 L (0.66-1.25) mg/dL Creatine Kinase 37 L (55-170) U/L Thrombosis Risk Factor Assmnt - Choose All That Apply Each Factor Represents 1 point: Abnormal pulmonary function (COPD), Age 41-60 years, Obesity (BMI >25) Other Risk Factors: Yes Each Risk Factor Represents 3 Points: History of DVT/PE Other congenital or acquired thrombophilia - If yes, enter type in comment: No Thrombosis Risk Factor Assessment Total Risk Factor Score: 6 Thrombosis Risk Factor Assessment Level: High Risk Assessment and Plan Assessment: dyspnea with worsening consolidation in the right upper and lower lung suspicious for worsening pneumonia Possible acute COPD exacerbation history of Acute pulmonary embolism. CT of the thorax showing saddle embolus extending into the left upper lobe and all right-sided lobar branches and also possible right lower lobe. with Recent history of Acute right leg DVT, on Eliquis Recent history of Pneumonia with combined fungal and bacterial infection. Treated and is improving Stable and improving cavitating right upper lobe abscess. Thought to be fungal infection/fungal ball. Was on itraconazole (Sporanox), resolved 7 mm Pulmonary nodules in the right basal lung Leukocytosis, multifactorial due to infection and steroid effect. Improving Recent history herpez zoster , shingles of the left flank Left shoulder pain, left shoulder injury status post fall. recent orthopedic i nput Recommended outpatient follow-up in 1 week. 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 History of Coronary artery disease with history of MN. Ongoing nicotine addiction Plan: This is a pleasant 59 years old male who presents with possible pneumonia and acute COPD exacerbation. Continue with antibiotics. Follow-up sputum culture. Continue with bronchodilator and oxygen. Pulmonary consult Labs and medication were reviewed.. Continue same treatment. Continue with symptomatic treatment. Resume home medication. Monitor lytes and vitals. DVT and GI prophylaxis. Further recommendations of the clinical course of the patient DVT prophylaxis: Eliquis GI Prophylaxis: Protonix Prognosis is guarded
[2019-11-07 12:44] LABS: African American GFR (CKD) >90 (>60 ml/min/1.73 sqM); Anion Gap 6 mmol/L; Blood Urea Nitrogen 22 mg/dL (9-20); Calcium 9.3 mg/dL (8.4-10.2); Carbon Dioxide 27 mmol/L (22-30); Chloride 103 mmol/L (98-107); Glucose 68 mg/dL (74-99); Non-African American GFR(CKD) >90 (>60 ml/min/1.73 sqM); Potassium 4.9 mmol/L (3.5-5.1); Sodium 136 mmol/L (137-145)
--- NOTE | 2019-11-07 13:41 | P.CNPUL ---
History of Present Illness Consult date: 11/07/19 Requesting physician: Tricia Cano Reason for consult: dyspnea, COPD Chief complaint: Shortness of breath History of present illness: This is a 59-year-old male patient with a known history of severe oxygen dependent chronic obstructive pulmonary disease with an FEV1 value 36% of predicted maintained on long-term prednisone at 10 mg daily coming in for worsening shortness of breath and difficulty breathing and COPD exacerbation. He has had multiple admissions to the hospital for the same most recent of which was earlier this a month. He is also had recent admissions to another local hospital. He continues to smoke. He was having increased cough with limited sputum production. No fever. No chills. He is known to have a previous fungal infection in the right upper lobe that was treated with itraconazole with good results. Today's chest x-ray reveals improved aeration in both lungs. The right upper lobe airspace disease has decreased. There is atelectasis of the lung bases. He is currently on bronchodilators around the clock. Antibiotics in the form of ceftriaxone and azithromycin. Note that his most recent bronchioloalveolar lavage that was done on 09/17/2019 showed mckinley bacterium species and [place]. 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 On today's evaluation he reports some modest improvement compared to yesterday regarding his COPD exacerbation. Review of Systems REVIEW OF SYSTEMS: CONSTITUTIONAL: Denies any recent significant weight loss or weight gain. EYES: Denies change in vision. EARS, NOSE, MOUTH, THROAT: Denies headaches, denies sore throat. CARDIOVASCULAR: Denies chest pain, palpitations or syncopal episodes. RESPIRATORY: Positive for shortness of breath, cough, congestion no hemoptysis. GASTROINTESTINAL: Denies change in appetite, denies abdominal pain GENITOURINARY: Denies hematuria, denies infections. MUSKULOSKELETAL: Denies pain, denies swelling. INTEGUMENTARY: Denies rash, denies eczema. NEUROLOGICAL: Denies recent memory loss, no recent seizure activity. PSYCHIATRIC: Denies anxiety, denies depression. HEMATOLOGIC/LYMPHATIC: Denies anemia, denies enlarged lymph nodes. 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 Last Myocardial Infarction Date:: unknown History of Any Multi-Drug Resistant Organisms: None Reported Past Surgical History: Orthopedic Surgery Additional Past Surgical History / Comment(s): metal plate left hand middle finger, right eye enucleation. Past Anesthesia/Blood Transfusion Reactions: No Reported Reaction Past Psychological History: Anxiety, Depression, Panic Disorder Additional Psychological History / Comment(s): Lives in apartment. Has a nebulizer/oxygen. 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 - Past Family History Mother Family Medical History: Cancer Additional Family Medical History / Comment(s): Pt believes his Mom of Kidney Cancer Father Family Medical History: Cancer, COPD, Respiratory Disorder Additional Family Medical History / Comment(s): Melanoma Medications and Allergies Home Medications Medication Instructions Recorded Confirmed Type amLODIPine [Norvasc] 10 mg PO DAILY 04/29/19 11/06/19 History Escitalopram [Lexapro] 10 mg PO DAILY #15 tab 05/15/19 11/06/19 Rx Ipratropium-Albuterol Nebulize 3 ml INHALATION RT-QID PRN 06/13/19 11/06/19 History [Duoneb 0.5 mg-3 mg/3 ml Soln] Melatonin 10 mg PO HS 08/12/19 11/06/19 History Metoprolol Tartrate [Lopressor] 25 mg PO BID #60 tab 09/30/19 11/06/19 Rx Acetaminophen Tab [Tylenol] 1,000 mg PO Q4H PRN 10/20/19 11/06/19 History Apixaban [Eliquis] 5 mg PO Q12H 10/20/19 11/06/19 History Aspirin EC [Ecotrin Low Dose] 81 mg PO DAILY 10/20/19 11/06/19 History Famotidine 10 mg PO Q12H 10/20/19 11/06/19 History Folic Acid 1 mg PO DAILY 10/20/19 11/06/19 History Meclizine [Antivert] 12.5 mg PO Q12H 10/20/19 11/06/19 History Pantoprazole Sodium [Protonix] 40 mg PO DAILY@0600 10/20/19 11/06/19 History ALPRAZolam [Xanax] 0.25 mg PO BID PRN #3 tab 10/23/19 11/06/19 Rx Atorvastatin [Lipitor] 10 mg PO DAILY tab 10/23/19 11/06/19 Rx Budesonide [Pulmicort] 1 mg INHALATION RT-BID ml 10/23/19 11/06/19 Rx Budesonide-Formot 160-4.5 Mcg 2 puff INHALATION BID #1 inhaler 10/23/19 11/06/19 Rx [Symbicort 160-4.5 Mcg Inhaler] Gabapentin [Neurontin] 800 mg PO TID #3 cap 10/23/19 11/06/19 Rx HYDROcodone/APAP 5-325MG [[place] 1 each PO Q6HR PRN #4 tab 10/23/19 11/06/19 Rx 5-325] Montelukast [Singulair] 10 mg PO HS tab 10/23/19 11/06/19 Rx Nicotine 14Mg/24Hr Patch [Habitrol] 1 patch TRANSDERM DAILY patch 10/23/19 11/06/19 Rx Allergies Allergy/AdvReac Type Severity Reaction Status Date / Time tree nut [Nut] Allergy Unknown Dyspnea, Verified 11/06/19 18:44 Rash/Hives peanut [Peanut Butter] AdvReac Dyspnea, Verified 11/06/19 18:44 Rash/Hives Physical Exam Vitals: Vital Signs Temp Pulse Pulse Resp BP BP Pulse Ox 11/07/19 11:57 100 11/07/19 11:45 100 11/07/19 08:36 104 H 03/21/20 08:25 104 H 11/07/19 05:00 97.9 F 83 20 126/76 97 11/07/19 04:26 103 H 11/07/19 04:16 101 H 11/06/19 23:21 102 H 11/06/19 23:13 100 11/06/19 20:30 98.2 F 100 20 113/67 94 L 11/06/19 20:25 104 H 11/06/19 19:00 104 H 19 138/71 96 11/06/19 18:20 102 H 11/06/19 18:11 102 H 11/06/19 18:00 98 F 104 H 20 105/54 95 11/06/19 17:00 105 H 18 138/86 94 L 11/06/19 16:44 104 H 11/06/19 16:33 104 H 11/06/19 16:00 109 H 22 129/65 95 11/06/19 15:26 107 H 20 129/65 94 L 11/06/19 15:25 109 H 20 120/72 94 L 11/06/19 15:21 106 H 11/06/19 15:07 106 H 11/06/19 14:25 98.9 F 114 H 20 119/81 95 Intake and Output 11/06/19 11/07/19 11/07/19 22:59 06:59 14:59 Intake Total 540 100 50 Balance 540 100 50 Intake: IV 50 cefTRIAXone 1 gm In 50 Sodium Chloride 0.9% 50 ml @ 100 mls/hr IVPB Q24HR [facility] Rx#:[id number] Oral 540 100 Other: # Voids 1 Weight 80.286 kg Results - Laboratory Findings CBC and BMP: 11/07/19 11:38 11/07/19 11:38 PT/INR, D-dimer PT 9.5 sec (9.0-12.0) 11/06/19 14:42 INR 0.9 (<1.2) 11/06/19 14:42 Abnormal lab findings: Abnormal Labs 11/06/19 11/06/19 11/07/19 14:42 14:42 11:38 WBC 12.3 H 13.0 H RBC 3.76 L 3.44 L Hgb 12.0 L 11.2 L Hct 37.2 L 34.2 L Neutrophils # 9.5 H 11.3 H Lymphocytes # 0.5 L Sodium 135 L Chloride 97 L Carbon Dioxide 33 H BUN Creatinine 0.51 L Glucose Creatine Kinase 37 L 11/07/19 11:38 WBC RBC Hgb Hct Neutrophils # Lymphocytes # Sodium 136 L Chloride Carbon Dioxide BUN 22 H Creatinine 0.44 L Glucose 68 L Creatine Kinase Assessment and Plan Assessment: 1 Acute COPD exacerbation with secondary shortness of breath. The patient is a chronic smoker. 2 Severe oxygen dependent chronic obstructive pulmonary disease, FEV1 value 36% of predicted, the patient is on long-term prednisone at a dose of 10 mg by mouth daily. Dependent at 2 L per minute nasal cannula. He is on Airduo as maintenance 3 Chronic tobacco dependence 4 History of right upper lobe fungal infection treated with Sporanox and Au gmentin, and near complete resolution on chest x-ray. . 5 History of PE/DVT, anticoagulated with Eliquis and the patient has been taken off warfarin 6 History of CVA involving the basal ganglia 7 Shingles affecting the right eye status post enucleation 8 Diabetes mellitus, type II 9 GERD 10 History of coronary disease with previous myocardial infarction 11 Avascular necrosis left humeral head followed by orthopedic services in pain clinic Plan The patient was seen and evaluated by Dr. Vogt. Chest x-ray and labs reviewed. We'll continue with the treatment plan for now. The patient is trying to avoid steroid use. We'll continue to follow. I, the cosigning physician, performed a history & physical examination of the patient. Lungs sounds are clear, diminished. Maintaining good O2 saturations in the 90s on 2 L/m per nasal cannula. I discussed the assessment and plan of care with my nurse practitioner, Crissy Bland. I attest to the above note as dictated b y .
[2019-11-07] MEDS ORDERED: AZITHROMYCIN 500 MG TAB PO SCH (18:00)
[2019-11-07 21:06] VITALS: RESP 20
[2019-11-07] MEDS: MONTELUKAST 10 MG TAB PO SCH (21:22)
[2019-11-07] MEDS: MELATONIN 5 MG TABLET PO SCH (21:22)
[2019-11-08] MEDS: IPRATROPIUM-ALBUTEROL 3 ML NEB INHALATION SCH ×4 (00:03→12:20)
[2019-11-08] MEDS: SODIUM CHLORIDE 0.9% 1,000 ML IV SCH ×2 (00:30→07:51)
[2019-11-08] MEDS: HYDROcodone/APAP 5-325MG 1 EACH TAB PO PRN ×2 (00:38→08:30)
[2019-11-08] MEDS: PANTOPRAZOLE 40 MG TABLET PO SCH (05:35)
[2019-11-08 06:17] VITALS: BP 127/79; TEMP 97.8
[2019-11-08] MEDS: FOLIC ACID 1 MG TAB PO SCH (07:48)
[2019-11-08] MEDS: APIXABAN 5 MG TAB PO SCH (07:48)
[2019-11-08] MEDS: FAMOTIDINE 20 MG TAB PO SCH (07:48)
[2019-11-08] MEDS: ESCITALOPRAM 10 MG TAB PO SCH (07:48)
[2019-11-08] MEDS: ASPIRIN 81 MG PO SCH (07:48)
[2019-11-08] MEDS: METOPROLOL TARTRATE 25 MG TAB PO SCH (07:48)
[2019-11-08] MEDS: amLODIPine 10 MG TAB PO SCH (07:48)
[2019-11-08] MEDS: ATORVASTATIN 10 MG TAB PO SCH (07:48)
[2019-11-08] MEDS: NICOTINE 14MG/24HR PATCH TRANSDERM SCH (07:49)
[2019-11-08] MEDS: GABAPENTIN 400 MG CAP PO SCH (08:30)
[2019-11-08] MEDS: MECLIZINE 12.5 MG TAB PO SCH (08:31)
[2019-11-08 09:09] LABS: Basophils % (A) 0 %; Eosinophils # (A) 0.1 k/uL (0-0.7); Eosinophils % (A) 1 %; HCT 37.9 % (39.0-53.0); HGB 12.1 gm/dL (13.0-17.5); Hypochromasia Slight; Lymphocytes # (A) 1.4 k/uL (1.0-4.8); Lymphocytes % (A) 11 %; MCH 32.2 pg (25.0-35.0); MCV 100.6 fL (80.0-100.0); Macrocytosis Slight; Mean Platelet Volume 6.7; Monocytes # (A) 0.7 k/uL (0-1.0); Monocytes % (A) 6 %; Neutrophils # (A) 9.8 k/uL (1.3-7.7); Neutrophils % (A) 81 %; Platelet Count 371 k/uL (150-450); RBC 3.77 m/uL (4.30-5.90); RDW 14.7 % (11.5-15.5); WBC 12.1 k/uL (3.8-10.6)
[2019-11-08 12:34] VITALS: PULSE 92
--- NOTE | 2019-11-08 23:53 | P.DS ---
Providers Date of admission: 11/06/19 18:18 Attending physician: Tricia Cano Consults: 11/07/19 08:55 Consult Physician Routine Consulting Provider: Isis Vogt Consult Reason/Comments: pna Do you want consulting provider notified?: Yes Primary care physician: Urszula [facility] Course: Diagnoses dyspnea with worsening consolidation in the right upper and lower lung suspicious for worsening pneumonia Possible acute COPD exacerbation history of Acute pulmonary embolism. CT of the thorax showing saddle embolus extending into the left upper lobe and all right-sided lobar branches and also possible right lower lobe. with Recent history of Acute right leg DVT, on Eliquis Recent history of Pneumonia with combined fungal and bacterial infection. Treated and is improving Stable and improving cavitating right upper lobe abscess. Thought to be fungal infection/fungal ball. Was on itraconazole (Sporanox), resolved 7 mm Pulmonary nodules in the right basal lung Leukocytosis, multifactorial due to infection and steroid effect. Improving Recent history herpez zoster , shingles of the left flank Left shoulder pain, left shoulder injury status post fall. recent orthopedic input Recommended outpatient follow-up in 1 week. 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 History of Coronary artery disease with history of UT. Ongoing nicotine addiction Hospital course: Patient is a 59-year-old male with a known history of COPD and chronic hypoxic respiratory failure on home oxygen 2 L where nausea cannula, history of CVA, nicotine addiction and chronic left shoulder pain, hypertension and acid reflux and history of coronary artery disease and has history of UT, DVT/PE on Eliquis. recently treated a few months ago for right upper lobe cavitary pneumonia with questionable possible fungal infection that responded to therapy , Several hospitalization for above problem. Presents because of shortness of breath and intermittent coughing which is clear-green in color, with the same chronic pain and no acute exacerbation pain chest x-ray showing developing right basilar and upper lung acute infiltrate and/or atelectasis suspicious for worsening pneumonia. On admission patient was continued on Zithromax and Rocephin. Patient has been evaluated by it program engagement director, he is been treated with steroids and antibiotics. Patient showed interval improvement and his back to baseline, pulmonary team cleared for discharge ( i talked to mikki today and she confirmed to me they cleared him for discharge on augmentin but no need for steroid ). Patient will be discharged short course of oral antibiotics and tapering steroids Patient agrees and he thinks he can be discharged home today Problems and management plan were discussed with the patient and he verbalized understanding and acceptance Patient was found stable and can be discharged home however he needs follow-up as an outpatient. Patient was instructed to follow up with PCP within one week and patient agrees. Also patient was instructed to follow up with his it program engagement director Dr. Jose broussard in 1-2 weeks and he agrees. pt agrees to make his own appointments as today is weekend Gen: patient is a AAOx3, no distress CVS: S1-S2, RRR, no murmur Lungs: B/L CTA, no wheezing Abdomen: soft, no distention, no tenderness, positive bowel sounds Extremity: no leg edema or induration Time spent more than 35 minutes Patient Condition at Discharge: Good Plan - Discharge Summary Discharge Rx Participant: No New Discharge Prescriptions: New Amoxicillin/Potassium Clav [Augmentin 875-125 Tablet] 1 tab PO Q12HR 7 Days #14 tab Continue amLODIPine [Norvasc] 10 mg PO DAILY Escitalopram [Lexapro] 10 mg PO DAILY #15 tab Ipratropium-Albuterol Nebulize [Duoneb 0.5 mg-3 mg/3 ml Soln] 3 ml INHALATION RT-QID PRN PRN Reason: Shortness Of Breath Melatonin 10 mg PO HS Metoprolol Tartrate [Lopressor] 25 mg PO BID #60 tab Acetaminophen Tab [Tylenol] 1,000 mg PO Q4H PRN PRN Reason: Pain Meclizine [Antivert] 12.5 mg PO Q12H Famotidine 10 mg PO Q12H Pantoprazole Sodium [Protonix] 40 mg PO DAILY@0600 Folic Acid 1 mg PO DAILY Aspirin EC [Ecotrin Low Dose] 81 mg PO DAILY Nicotine 14Mg/24Hr Patch [Habitrol] 1 patch TRANSDERM DAILY patch Atorvastatin [Lipitor] 10 mg PO DAILY tab Gabapentin [Neurontin] 800 mg PO TID #3 cap HYDROcodone/APAP 5-325MG [Cochrane 5-325] 1 each PO Q6HR PRN #4 tab PRN Reason: Pain Budesonide [Pulmicort] 1 mg INHALATION RT-BID ml Montelukast [Singulair] 10 mg PO HS tab ALPRAZolam [Xanax] 0.25 mg PO BID PRN #3 tab PRN Reason: Anxiety Budesonide-Formot 160-4.5 Mcg [Symbicort 160-4.5 Mcg Inhaler] 2 puff INHALATION BID #1 inhaler Apixaban [Eliquis] 5 mg PO Q12H #60 tab Discharge Medication List amLODIPine [Norvasc] 10 mg PO DAILY 04/29/19 [History] Escitalopram [Lexapro] 10 mg PO DAILY #15 tab 05/15/19 [Rx] Ipratropium-Albuterol Nebulize [Duoneb 0.5 mg-3 mg/3 ml Soln] 3 ml INHALATION RT-QID PRN 06/13/19 [History] Melatonin 10 mg PO HS 08/12/19 [History] Metoprolol Tartrate [Lopressor] 25 mg PO BID #60 tab 09/30/19 [Rx] Acetaminophen Tab [Tylenol] 1,000 mg PO Q4H PRN 10/20/19 [History] Aspirin EC [Ecotrin Low Dose] 81 mg PO DAILY 10/20/19 [History] Famotidine 10 mg PO Q12H 10/20/19 [History] Folic Acid 1 mg PO DAILY 10/20/19 [History] Meclizine [Antivert] 12.5 mg PO Q12H 10/20/19 [History] Pantoprazole Sodium [Protonix] 40 mg PO DAILY@0600 10/20/19 [History] ALPRAZolam [Xanax] 0.25 mg PO BID PRN #3 tab 10/23/19 [Rx] Atorvastatin [Lipitor] 10 mg PO DAILY tab 10/23/19 [Rx] Budesonide [Pulmicort] 1 mg INHALATION RT-BID ml 10/23/19 [Rx] Budesonide-Formot 160-4.5 Mcg [Symbicort 160-4.5 Mcg Inhaler] 2 puff INHALATION BID #1 inhaler 10/23/19 [Rx] Gabapentin [Neurontin] 800 mg PO TID #3 cap 10/23/19 [Rx] HYDROcodone/APAP 5-325MG [Cochrane 5-325] 1 each PO Q6HR PRN #4 tab 10/23/19 [Rx] Montelukast [Singulair] 10 mg PO HS tab 10/23/19 [Rx] Nicotine 14Mg/24Hr Patch [Habitrol] 1 patch TRANSDERM DAILY patch 10/23/19 [Rx] Amoxicillin/Potassium Clav [Augmentin 875-125 Tablet] 1 tab PO Q12HR 7 Days #14 tab 11/08/19 [Rx] Apixaban [Eliquis] 5 mg PO Q12H #60 tab 11/08/19 [Rx] Follow up Appointment(s)/Referral(s): Urszula Carrasco MD [Primary Care Provider] - 1-2 days Willie Garcia MD [STAFF PHYSICIAN] - 1 Week Patient Instructions/Handouts: COPD (Chronic Obstructive Pulmonary Disease) (DC) Activity/Diet/Wound Care/Special Instructions: Low carbohydrate and heart healthy diet Activity is limited till you see your doctor Discharge Disposition: HOME SELF-CARE
== END 2019-11-08 15:27 | disposition home or self-care (01) | DRG 194 ==
LOC: EC 14:24 → 6NMEDSUR 18:18
PROVIDERS: ADMIT Hospitalist; ATTEND Hospitalist
DX: J18.9 Pneumonia, unspecified organism (principal); J96.11 Chronic respiratory failure with hypoxia; J44.0 Chronic obstructive pulmonary disease with (acute) lower respiratory infection; J44.1 Chronic obstructive pulmonary disease with (acute) exacerbation; J98.11 Atelectasis; M87.9 Osteonecrosis, unspecified; F17.210 Nicotine dependence, cigarettes, uncomplicated; E11.9 Type 2 diabetes mellitus without complications; F32.9 Major depressive disorder, single episode, unspecified; F41.0 Panic disorder [episodic paroxysmal anxiety]; G89.4 Chronic pain syndrome; I10 Essential (primary) hypertension; I25.10 Atherosclerotic heart disease of native coronary artery without angina pectoris; I25.2 Old myocardial infarction; K21.9 Gastro-esophageal reflux disease without esophagitis; Z79.01 Long term (current) use of anticoagulants; Z79.4 Long term (current) use of insulin; Z79.51 Long term (current) use of inhaled steroids; Z79.52 Long term (current) use of systemic steroids; D72.829 Elevated white blood cell count, unspecified; T38.0X5A Adverse effect of glucocorticoids and synthetic analogues, initial encounter; Z79.82 Long term (current) use of aspirin; Z79.899 Other long term (current) drug therapy; Z80.51 Family history of malignant neoplasm of kidney; Z80.8 Family history of malignant neoplasm of other organs or systems; Z82.5 Family history of asthma and other chronic lower respiratory diseases; Z86.711 Personal history of pulmonary embolism; Z86.718 Personal history of other venous thrombosis and embolism; Z86.73 Personal history of transient ischemic attack (TIA), and cerebral infarction without residual deficits; Z87.01 Personal history of pneumonia (recurrent); Z99.81 Dependence on supplemental oxygen; M75.01 Adhesive capsulitis of right shoulder; M25.512 Pain in left shoulder; W18.30XA Fall on same level, unspecified, initial encounter; Z90.01 Acquired absence of eye; Z86.19 Personal history of other infectious and parasitic diseases; R91.8 Other nonspecific abnormal finding of lung field
CPT/HCPCS: 36415; 71046; 80048; 80053; 82550; 83605; 83735; 83880; 84484; 85025; 85610; 85730; 87040; 93005; 94640; 96365; 96367; 96375; 99291

== ENCOUNTER 2019-11-22 16:53 | Inpatient (IN) | payer OTHER ==
[2019-11-22] MEDS ORDERED: SODIUM CHLORIDE 0.9% 1,000 ML IV STA (16:59)
[2019-11-22 17:31] LABS: ALT 17 U/L (4-49); AST 24 U/L (17-59); African American GFR (CKD) >90 (>60 ml/min/1.73 sqM); Albumin 3.7 g/dL (3.5-5.0); Alkaline Phosphatase 75 U/L (38-126); Anion Gap 10 mmol/L; Blood Urea Nitrogen 7 mg/dL (9-20); Calcium 9.5 mg/dL (8.4-10.2); Carbon Dioxide 26 mmol/L (22-30); Chloride 96 mmol/L (98-107); Glucose 98 mg/dL (74-99); Magnesium 1.6 mg/dL (1.6-2.3); Non-African American GFR(CKD) >90 (>60 ml/min/1.73 sqM); Potassium 4.3 mmol/L (3.5-5.1); Sodium 132 mmol/L (137-145); Total Bilirubin 0.4 mg/dL (0.2-1.3); Total Protein 6.2 g/dL (6.3-8.2)
[2019-11-22 17:40] LABS: Basophils % (A) 0 %; Eosinophils # (A) 0.2 k/uL (0-0.7); Eosinophils % (A) 2 %; HCT 36.7 % (39.0-53.0); HGB 12.3 gm/dL (13.0-17.5); Lymphocytes # (A) 1.1 k/uL (1.0-4.8); Lymphocytes % (A) 10 %; MCH 31.9 pg (25.0-35.0); MCHC 33.6 g/dL (31.0-37.0); Mean Platelet Volume 6.6; Monocytes # (A) 0.8 k/uL (0-1.0); Monocytes % (A) 7 %; Neutrophils # (A) 8.8 k/uL (1.3-7.7); Neutrophils % (A) 78 %; Platelet Count 452 k/uL (150-450); RBC 3.86 m/uL (4.30-5.90); RDW 14.3 % (11.5-15.5); WBC 11.2 k/uL (3.8-10.6)
--- NOTE | 2019-11-22 17:42 | XR ---
EXAMINATION TYPE: XR chest 1V portable DATE OF EXAM: 11/22/2019 COMPARISON: 11/07/2019 HISTORY: Cough. Short of breath TECHNIQUE: Single view FINDINGS: There is coarse interstitial density in the lower lung brown. There is no heart failure. H eart size is normal. There is mild linear density at the lung bases. There are no hilar masses. There are chest leads. IMPRESSION: Increased interstitial density and subsegmental atelectasis compared to old exam could re late to interstitial pneumonia. No heart failure seen.
[2019-11-22 17:43] LABS: MCV 94.9 fL (80.0-100.0)
--- NOTE | 2019-11-22 17:47 | ED ---
General Adult HPI - General Chief complaint: Shortness of Breath Stated complaint: CLEMENCIA Time Seen by Provider: 11/22/19 16:56 Source: EMS Mode of arrival: EMS Limitations: no limitations - History of Present Illness Initial comments: Dictation was produced using Mia[employer] dictation software. please excuse any grammatical, word or spelling errors. This patient was cared for during a federal and state declared state of emergency secondary to Covid 19 Chief Complaint: 59-year-old male with past medical history of COPD, myocardial infarction, pulmonary emboli presents with dyspnea 4 days. History of Present Illness: Patient is a 59-year-old male he is well-known to emergency department for multiple visitations for similar complaints. Patient was brought in by EMS. He reports that he's been short of breath for the last 4 days. Patient has established care with mother tester Dr. Garcia. Said over the last 4 days he's been having increasing shortness of breath. Patient was brought to the emergency department by EMS. Patient states he does have some chest pain however he has this chest pain chronically. He is unable course for DVT prophylaxis. Patient reports that he is compliant with his medications. Denies any constitutional symptoms. Denies any coughing. EMS was called and patient was placed on 4 L nasal cannula. Patient typically wears 2 L nasal cannula at home. Reports trying to manage his dyspnea at home with his nebulizer treatments however has felt like he has not had any significant improvement. The ROS documented in this emergency department record has been reviewed and confirmed by me. Those systems with pertinent positive or negative responses have been documented in the HPI. All other systems are other negative and/or noncontributory. PHYSICAL EXAM: General Impression: Alert and oriented x3, not in acute distress HEENT: Normocephalic atraumatic, extra-ocular movements intact, pupils equal and reactive to light bilaterally, mucous membranes moist. Cardiovascular: Heart regular rate and rhythm, S1&S2 audible, no murmurs, rubs or gallops Chest: Mild rales focused to the left lower lung base Abdomen: Bowel sounds present, abdomen soft, non-tender, non-distended, no organomegaly Musculoskeletal: Pulses present and equal in all extremities, no peripheral edema Motor: no focal deficits noted Neurological: CN II-XII grossly intact, no focal motor or sensory deficits noted Skin: Intact with no visualized rashes Psych: Normal affect and mood ED course: 59-year-old male with chief complaint of dyspnea. Signs upon arrival shows heart rate of 107, 93% on 2 L nasal cannula. Patient does not appear to be showing any signs of labored breathing. Laboratory evaluation obtained. Mild leukocytosis 11.2, hemoglobin 12.3, platelet of 452. Coag panel unremarkable. Metabolic panel is within acceptable limits. No elevation in cardiac enzymes. BNP peptide is negative. Chest x-ray shows interstitial density in subsegmental atelectasis which may be concerning for interstitial pneumonia. Patient not having any constitutional symptoms. Patient's coca presentation likely secondary to COPD exacerbation. Consider patient's social situation we'll have him admitted to observation with consultation to his mother tester. Discussed patient case with Dr. Campbell who is willing to accept patients care EKG interpretation: Ventricular rate 105, sinus tachycardia, NH interval 1:30, QRS 86, QTC 470. No NH prolongation, no QTC prolongation, no ST or T-wave changes noted. EKG compared to 11/06/2019 showing no changes. Overall, this EKG is unremarkable - Related Data Home Medications Medication Instructions Recorded Confirmed amLODIPine [Norvasc] 10 mg PO DAILY 04/29/19 11/22/19 Ipratropium-Albuterol Nebulize 3 ml INHALATION RT-QID PRN 06/13/19 11/22/19 [Duoneb 0.5 mg-3 mg/3 ml Soln] Melatonin 10 mg PO HS 08/12/19 11/22/19 Acetaminophen Tab [Tylenol] 500 - 1,000 mg PO Q8H PRN 10/20/19 11/22/19 Aspirin EC [Ecotrin Low Dose] 81 mg PO DAILY 10/20/19 11/22/19 Famotidine 10 mg PO Q12H 10/20/19 11/22/19 Folic Acid 1 mg PO DAILY 10/20/19 11/22/19 Meclizine [Antivert] 12.5 mg PO Q12H 10/20/19 11/22/19 Pantoprazole Sodium [Protonix] 40 mg PO DAILY 10/20/19 11/22/19 Methocarbamol [Robaxin-750] 750 mg PO HS 11/22/19 11/22/19 Previous Rx's Medication Instructions Recorded Escitalopram [Lexapro] 10 mg PO DAILY #15 tab 05/15/19 Metoprolol Tartrate [Lopressor] 25 mg PO BID #60 tab 09/30/19 ALPRAZolam [Xanax] 0.25 mg PO BID PRN #3 tab 10/23/19 Atorvastatin [Lipitor] 10 mg PO DAILY tab 10/23/19 Budesonide [Pulmicort] 1 mg INHALATION RT-BID ml 10/23/19 Budesonide-Formot 160-4.5 Mcg 2 puff INHALATION BID #1 inhaler 10/23/19 [Symbicort 160-4.5 Mcg Inhaler] Gabapentin [Neurontin] 800 mg PO TID #3 cap 10/23/19 Montelukast [Singulair] 10 mg PO HS tab 10/23/19 Nicotine 14Mg/24Hr Patch [Habitrol] 1 patch TRANSDERM DAILY patch 10/23/19 Apixaban [Eliquis] 5 mg PO Q12H #60 tab 11/08/19 Allergies Allergy/AdvReac Type Severity Reaction Status Date / Time tree nut [Nut] Allergy Unknown Dyspnea, Verified 11/06/19 18:44 Rash/Hives peanut [Peanut Butter] AdvReac Dyspnea, Verified 11/06/19 18:44 Rash/Hives Review of Systems ROS Statement: Those systems with pertinent positive or pertinent negative responses have been documented in the HPI. ROS Other: All systems not noted in ROS Statement are negative. 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 Last Myocardial Infarction Date:: unknown History of Any Multi-Drug Resistant Organisms: None Reported Past Surgical History: Orthopedic Surgery Additional Past Surgical History / Comment(s): metal plate left hand middle finger, right eye enucleation. Past Anesthesia/Blood Transfusion Reactions: No Reported Reaction Past Psychological History: Anxiety, Depression, Panic Disorder Smoking Status: Former smoker Past Alcohol Use History: Occasional Past Drug Use History: Marijuana - Past Family History Mother Family Medical History: Cancer Additional Family Medical History / Comment(s): Pt believes his Mom of Kidney Cancer Father Family Medical History: Cancer, COPD, Respiratory Disorder Additional Family Medical History / Comment(s): Melanoma General Exam Limitations: no limitations Course Vital Signs 11/22/19 11/22/19 16:54 17:14 Temperature 98.0 F Pulse Rate 107 H Respiratory 16 24 Rate Blood Pressure 129/67 O2 Sat by Pulse 93 L Oximetry Medical Decision Making - Lab Data Result diagrams: 11/22/19 17:09 11/22/19 17:09 Lab Results 11/22/19 11/22/19 11/22/19 Range/Units 17:09 17:09 17:09 WBC 11.2 H (3.8-10.6) k/uL RBC 3.86 L (4.30-5.90) m/uL Hgb 12.3 L (13.0-17.5) gm/dL Hct 36.7 L (39.0-53.0) % MCV 94.9 D (80.0-100.0) fL MCH 31.9 (25.0-35.0) pg MCHC 33.6 (31.0-37.0) g/dL RDW 14.3 (11.5-15.5) % Plt Count 452 H (150-450) k/uL Neutrophils % 78 % Lymphocytes % 10 % Monocytes % 7 % Eosinophils % 2 % Basophils % 0 % Neutrophils # 8.8 H (1.3-7.7) k/uL Lymphocytes # 1.1 (1.0-4.8) k/uL Monocytes # 0.8 (0-1.0) k/uL Eosinophils # 0.2 (0-0.7) k/uL Basophils # 0.0 (0-0.2) k/uL PT 10.1 (9.0-12.0) sec INR 1.0 (<1.2) APTT 27.0 (22.0-30.0) sec Sodium 132 L (137-145) mmol/L Potassium 4.3 (3.5-5.1) mmol/L Chloride 96 L (98-107) mmol/L Carbon Dioxide 26 (22-30) mmol/L Anion Gap 10 mmol/L BUN 7 L (9-20) mg/dL Creatinine 0.52 L (0.66-1.25) mg/dL Est GFR (CKD-EPI)AfAm >90 (>60 ml/min/1.73 sqM) Est GFR (CKD-EPI)NonAf >90 (>60 ml/min/1.73 sqM) Glucose 98 (74-99) mg/dL Calcium 9.5 (8.4-10.2) mg/dL Magnesium 1.6 (1.6-2.3) mg/dL Total Bilirubin 0.4 (0.2-1.3) mg/dL AST 24 (17-59) U/L ALT 17 (4-49) U/L Alkaline Phosphatase 75 (38-126) U/L Troponin I (0.000-0.034) ng/mL NT-Pro-B Natriuret Pep pg/mL Total Protein 6.2 L (6.3-8.2) g/dL Albumin 3.7 (3.5-5.0) g/dL 11/22/19 11/22/19 Range/Units 17:09 17:09 WBC (3.8-10.6) k/uL RBC (4.30-5.90) m/uL Hgb (13.0-17.5) gm/dL Hct (39.0-53.0) % MCV (80.0-100.0) fL MCH (25.0-35.0) pg MCHC (31.0-37.0) g/dL RDW (11.5-15.5) % Plt Count (150-450) k/uL Neutrophils % % Lymphocytes % % Monocytes % % Eosinophils % % Basophils % % Neutrophils # (1.3-7.7) k/uL Lymphocytes # (1.0-4.8) k/uL Monocytes # (0-1.0) k/uL Eosinophils # (0-0.7) k/uL Basophils # (0-0.2) k/uL PT (9.0-12.0) sec INR (<1.2) APTT (22.0-30.0) sec Sodium (137-145) mmol/L Potassium (3.5-5.1) mmol/L Chloride (98-107) mmol/L Carbon Dioxide (22-30) mmol/L Anion Gap mmol/L BUN (9-20) mg/dL Creatinine (0.66-1.25) mg/dL Est GFR (CKD-EPI)AfAm (>60 ml/min/1.73 sqM) Est GFR (CKD-EPI)NonAf (>60 ml/min/1.73 sqM) Glucose (74-99) mg/dL Calcium (8.4-10.2) mg/dL Magnesium (1.6-2.3) mg/dL Total Bilirubin (0.2-1.3) mg/dL AST (17-59) U/L ALT (4-49) U/L Alkaline Phosphatase (38-126) U/L Troponin I <0.012 (0.000-0.034) ng/mL NT-Pro-B Natriuret Pep 54 pg/mL Total Protein (6.3-8.2) g/dL Albumin (3.5-5.0) g/dL Disposition Clinical Impression: COPD exacerbation Disposition: ADMITTED IP TO THIS HOSP Condition: Fair Referrals: Urszula Carrasco MD [Primary Care Provider] - 1-2 days Decision Time: 18:17
[2019-11-22 17:50] LABS: Prothrombin Time 10.1 sec (9.0-12.0)
[2019-11-22] MEDS ORDERED: DEXAMETHASONE 4 MG TAB PO STA (17:57)
[2019-11-22] MEDS ORDERED: IPRATROPIUM-ALBUTEROL 3 ML NEB INHALATION STA (17:58)
[2019-11-22] MEDS ORDERED: LEVOFLOXACIN 750 MG TAB PO STA (18:02)
[2019-11-22] MEDS ORDERED: ACETAMINOPHEN TAB 500 MG TAB PO PRN (20:34)
[2019-11-22] MEDS ORDERED: ALPRAZolam 0.25 MG TAB PO PRN (21:00)
[2019-11-22] MEDS: MECLIZINE 12.5 MG TAB PO SCH (21:51)
[2019-11-22] MEDS: MELATONIN 5 MG TABLET PO SCH (21:52)
[2019-11-22] MEDS: GABAPENTIN 400 MG CAP PO SCH (21:52)
[2019-11-22] MEDS: METHOCARBAMOL 750 MG TAB PO SCH (21:52)
[2019-11-22] MEDS: FAMOTIDINE 20 MG TAB PO SCH (21:52)
[2019-11-22] MEDS: APIXABAN 5 MG TAB PO SCH (21:52)
[2019-11-22] MEDS: HYDROcodone/APAP 5-325MG 1 EACH TAB PO PRN (21:52)
[2019-11-22] MEDS: METOPROLOL TARTRATE 25 MG TAB PO SCH (21:53)
[2019-11-22] MEDS: MONTELUKAST 10 MG TAB PO SCH (21:53)
[2019-11-22] MEDS: IPRATROPIUM-ALBUTEROL 3 ML NEB INHALATION PRN (23:40)
[2019-11-22] MEDS: SYMBICORT 160-4.5 MCG INHALER INHALATION SCH (23:51)
[2019-11-23] MEDS: IPRATROPIUM-ALBUTEROL 3 ML NEB INHALATION PRN ×5 (04:29→19:52)
[2019-11-23] MEDS: SYMBICORT 160-4.5 MCG INHALER INHALATION SCH ×2 (07:31→19:52)
[2019-11-23] MEDS: FOLIC ACID 1 MG TAB PO SCH (08:25)
[2019-11-23] MEDS: ATORVASTATIN 10 MG TAB PO SCH (08:25)
[2019-11-23] MEDS: predniSONE 20 MG TAB PO SCH (08:25)
[2019-11-23] MEDS: PANTOPRAZOLE 40 MG TABLET PO SCH (08:25)
[2019-11-23] MEDS: GABAPENTIN 400 MG CAP PO SCH ×3 (08:25→21:51)
[2019-11-23] MEDS: ASPIRIN 81 MG PO SCH (08:25)
[2019-11-23] MEDS: APIXABAN 5 MG TAB PO SCH ×2 (08:25→21:02)
[2019-11-23] MEDS: FAMOTIDINE 20 MG TAB PO SCH ×2 (08:25→21:01)
[2019-11-23] MEDS: amLODIPine 10 MG TAB PO SCH (08:26)
[2019-11-23] MEDS: ESCITALOPRAM 10 MG TAB PO SCH (08:26)
[2019-11-23] MEDS: MECLIZINE 12.5 MG TAB PO SCH ×2 (08:26→21:02)
[2019-11-23] MEDS: METOPROLOL TARTRATE 25 MG TAB PO SCH ×3 (08:26→21:07)
[2019-11-23] MEDS: HYDROcodone/APAP 5-325MG 1 EACH TAB PO PRN ×3 (09:24→21:01)
--- NOTE | 2019-11-23 12:59 | CONS ---
CONSULTATION PULMONARY/CRITICAL CARE CONSULTATION: DATE OF SERVICE: 11/23/2019 November 23, 2019 This is a 59-year-old male, well known to our service. He comes into the hospital complaining of being short of breath. He has had multiple admissions to the hospital for similar situations. In addition, the shortness of breath, the patient complains of chest pain. The pain was described as a stabbing sharp pain in the center of his chest. He was evaluated by Kendell in the emergency department. He was admitted with a diagnosis of COPD exacerbation. Currently, the patient is sitting at the side of the bed. He is really not demonstrating any difficulty in his breathing. There is no audible wheezing, use of accessory muscles or conversational dyspnea. The patient was actually brought to the emergency room by EMS. He denies any coughing. There is no fever or chills. He denies coughing up any phlegm. Anyway, the patient again is well known to our service. He has had multiple admissions for similar situation. MEDICATIONS: Reviewed. The patient is currently on amlodipine, DuoNeb, melatonin, Tylenol, aspirin, famotidine, folic acid, Antivert, Protonix, Robaxin, Lexapro, Lopressor, Xanax, Lipitor, Pulmicort, Symbicort, Neurontin, Singulair, nicotine patch, and Eliquis. ALLERGIES: TREE NUTS and PEANUT BUTTER. MEDICAL HISTORY: Positive for angina, severe COPD, CVA, deep venous thrombosis, hypertension, myocardial infarction, pneumonia, pulmonary embolism, previous fungal infection involving the right upper lobe with cavitary changes, these were secondary to Aspergillus fumigatus. The patient also has a history of chronic hypoxemic respiratory failure, shingles, previous right eye blindness, right-sided frozen shoulder, rib fractures, and some other minor medical issues. SURGICAL HISTORY: Reviewed. They include metal plate left middle finger and right eye enucleation as well as some orthopedic procedures. SOCIAL HISTORY: Positive for previous tobacco use. He drinks alcohol occasionally. He does smoke marijuana. FAMILY HISTORY: Positive for mother who from kidney cancer and father with a history of COPD and melanoma. REVIEW OF SYSTEMS: CONSTITUTIONAL: Negative. NEUROLOGIC: Negative. HEENT: Negative. CARDIOVASCULAR: Chest pain, sharp and pleuritic in nature. PULMONARY: Shortness of breath. GI: Negative. : Negative. RHEUMATOLOGIC: Negative. IMMUNOLOGIC: Negative. ENDOCRINOLOGIC: Negative. Current vital signs are reviewed. Temperature is 98 degrees, heart rate 76, respiratory rate 20, blood pressure 117/74 mean 88, 2 L saturation 98%. Appears in no acute distress. As mentioned earlier, there is no conversational dyspnea, use of accessory muscles, or audible wheezing. In fact, the patient looks quite stable. HEENT: Examination is grossly unremarkable. NECK: Supple. Full range of motion. No adenopathy. Neck veins are flat. CARDIOVASCULAR: Examination reveals regular rhythm and rate. Heart rate 80. S1, S2 normal. No murmur. LUNGS: Reveal clear but diminished breath sounds. There is no wheezes, rhonchi, or crackles. ABDOMEN: Soft, bowel sounds are heard. EXTREMITIES: Intact. No cyanosis, clubbing, or edema. SKIN: Without rash. NEUROLOGIC: Examination is brief but nonfocal. LABS: Reviewed. White count 11.2, hemoglobin 12.3, hematocrit 36.7, platelet count 452,000. PT, INR, PTT all normal. Sodium 132, potassium 4.3, chloride 96, CO2 is 26, anion gap is 10, BUN and creatinine were 7 and 0.52. Total protein 6.2. N terminal proBNP was normal at 54. Microbiology is all pending or negative. A chest x-ray from November 21 is reviewed. It shows some chronic changes particularly in the right lung. There may be some mild basilar atelectasis and very tiny effusions bilaterally. Overall, the chest x-ray is not too impressive. Current medications are reviewed. He is currently on Tylenol, Xanax, amlodipine, Eliquis, aspirin, Lipitor, Symbicort, Lexapro, Pepcid, folic acid, gabapentin, [place], updrafts with DuoNeb, Antivert, melatonin, Robaxin, Lopressor, Singulair, ProTime, and prednisone. ASSESSMENT: 1. Mild chronic obstructive pulmonary disease exacerbation, without clear-cut evidence of tracheobronchitis and/or pneumonia. 2. Chronic hypoxemic respiratory failure. 3. History of angina pectoris. 4. History of previous cerebrovascular accident. 5. History of deep venous thrombosis/pulmonary embolism. 6. History of benign essential hypertension. 7. Prior history of myocardial infarction. 8. 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 9. History of shingles involving the right eye, causing blindness and subsequent enucleation. PLAN: Currently, the patient seems to be doing relatively well. I believe the COPD exacerbation is relatively mild. The patient in my opinion does not need any antibiotics. Really, the patient could be discharged home in the next day or so. His medications are appropriate including Symbicort, DuoNeb, and prednisone. He does not really need IV Solu-Medrol. Additional recommendations and suggestions are forthcoming. I think it is actually dangerous for this patient to be in the hospital given the risk of him developing something in the way of a nosocomial infection or a carranza virus infection given the seriousness and severity of his COPD. MMODL / IJN: [id number] /
[2019-11-23] MEDS: MELATONIN 5 MG TABLET PO SCH (21:00)
[2019-11-23] MEDS: METHOCARBAMOL 750 MG TAB PO SCH (21:01)
[2019-11-23] MEDS: MONTELUKAST 10 MG TAB PO SCH (21:02)
[2019-11-24] MEDS: IPRATROPIUM-ALBUTEROL 3 ML NEB INHALATION PRN ×6 (01:29→20:09)
--- NOTE | 2019-11-24 02:04 | P.HPIM ---
History of Present Illness Patient is a 59-year-old male with a known history of COPD and chronic hypoxic respiratory failure on home oxygen 2 L where nausea cannula, history of CVA, nicotine addiction and chronic left shoulder pain, hypertension and acid reflux and history of coronary artery disease and has history of [place], DVT/PE on Eliquis. recently treated a few months ago for right upper lobe cavitary pneumonia with questionable possible fungal infection that responded to therapy, Several hospitalization for above problem. This time patient presents with Presents because of shortness of breath , associated with occasional coughing with white phlegm, mild chest pain with coughing. However patient was noticed to be breathing quietly during My e ncounter. Patient with no abdominal pain, nausea vomiting Patient is asymptomatic increase his pain medication Narco from every 8 hours to every 6 hours Vitas looks stable on admission. Labs showing leukocytosis of 11.2k (chronic),Hemoglobin is 12.3, INR is 1.0, Sodium 132, creatinine 0.52, glucose 98. Troponin is negative, EKG showing sinus tachycardia at [address]-T changes and QTC of 470, chest x-ray showing interstitial atelectasis vs pneumonia per radiologist.. On admission patient was continued on Zithromax and Rocephin Review of Systems Review of systems CONSTITUTIONAL: No fever, no malaise, no fatigue. HEENT: No recent visual problems or hearing problems. Denied any sore throat. CARDIOVASCULAR: No orthopnea, PND, no palpitations, no syncope. PULMONARY: no hemoptysis. GASTROINTESTINAL: No diarrhea, no nausea, no vomiting, no abdominal pain. Normoactive bowel sounds. NEUROLOGICAL: No headaches, no weakness, no numbness. HEMATOLOGICAL: Denies any bleeding or petechiae. GENITOURINARY: Denies any burning micturition, frequency, or urgency. MUSCULOSKELETAL/RHEUMATOLOGICAL: Denies any joint pain, swelling, or any muscle pain. ENDOCRINE: Denies any polyuria or polydipsia. 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 Last Myocardial Infarction Date:: unknown History of Any Multi-Drug Resistant Organisms: None Reported Past Surgical History: Orthopedic Surgery Additional Past Surgical History / Comment(s): metal plate left hand middle finger, right eye enucleation. Past Anesthesia/Blood Transfusion Reactions: No Reported Reaction Past Psychological History: Anxiety, Depression, Panic Disorder Additional Psychological History / Comment(s): Lives in apartment. Has a nebulizer/oxygen. 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 Smoking Status: Former smoker Past Alcohol Use History: Occasional Additional Past Alcohol Use History / Comment(s): STARTED SMOKING 1975 08 PPD- PT STATED HE DRINKS 1 BEER a day Past Drug Use History: Marijuana Additional Drug Use History / Comment(s): Pt states he uses marajuana at times. - Past Family History Mother Family Medical History: Cancer Additional Family Medical History / Comment(s): Pt believes his Mom of Kidney Cancer Father Family Medical History: Cancer, COPD, Respiratory Disorder Additional Family Medical History / Comment(s): Melanoma Medications and Allergies Home Medications Medication Instructions Recorded Confirmed Type amLODIPine [Norvasc] 10 mg PO DAILY 04/29/19 11/22/19 History Escitalopram [Lexapro] 10 mg PO DAILY #15 tab 05/15/19 11/22/19 Rx Ipratropium-Albuterol Nebulize 3 ml INHALATION RT-QID PRN 06/13/19 11/22/19 History [Duoneb 0.5 mg-3 mg/3 ml Soln] Melatonin 10 mg PO HS 08/12/19 11/22/19 History Metoprolol Tartrate [Lopressor] 25 mg PO BID #60 tab 09/30/19 11/22/19 Rx Acetaminophen Tab [Tylenol] 500 - 1,000 mg PO Q8H PRN 10/20/19 11/22/19 History Aspirin EC [Ecotrin Low Dose] 81 mg PO DAILY 10/20/19 11/22/19 History Famotidine 10 mg PO Q12H 10/20/19 11/22/19 History Folic Acid 1 mg PO DAILY 10/20/19 11/22/19 History Meclizine [Antivert] 12.5 mg PO Q12H 10/20/19 11/22/19 History Pantoprazole Sodium [Protonix] 40 mg PO DAILY 10/20/19 11/22/19 History ALPRAZolam [Xanax] 0.25 mg PO BID PRN #3 tab 10/23/19 11/22/19 Rx Atorvastatin [Lipitor] 10 mg PO DAILY tab 10/23/19 11/22/19 Rx Budesonide [Pulmicort] 1 mg INHALATION RT-BID ml 10/23/19 11/22/19 Rx Budesonide-Formot 160-4.5 Mcg 2 puff INHALATION BID #1 inhaler 10/23/19 11/22/19 Rx [Symbicort 160-4.5 Mcg Inhaler] Montelukast [Singulair] 10 mg PO HS tab 10/23/19 11/22/19 Rx Nicotine 14Mg/24Hr Patch [Habitrol] 1 patch TRANSDERM DAILY patch 10/23/19 11/22/19 Rx Apixaban [Eliquis] 5 mg PO Q12H #60 tab 11/08/19 11/22/19 Rx Gabapentin 800 mg PO TID 11/22/19 11/22/19 History Methocarbamol [Robaxin-750] 750 mg PO HS 11/22/19 11/22/19 History Allergies Allergy/AdvReac Type Severity Reaction Status Date / Time tree nut [Nut] Allergy Unknown Dyspnea, Verified 11/06/19 18:44 Rash/Hives peanut [Peanut Butter] AdvReac Dyspnea, Verified 11/06/19 18:44 Rash/Hives Physical Exam Vitals: Vital Signs Temp Pulse Pulse Resp BP BP Pulse Ox 11/23/19 11:24 80 11/23/19 11:04 80 11/23/19 07:40 78 11/23/19 07:31 76 11/23/19 04:39 80 11/23/19 04:32 98.0 F 77 20 117/74 98 11/23/19 04:30 76 11/23/19 00:00 20 11/22/19 23:49 84 11/22/19 23:43 84 11/22/19 19:34 98.1 F 99 20 135/79 99 11/22/19 18:47 981 H 6 L 109/64 97 11/22/19 18:33 96 11/22/19 18:22 96 11/22/19 17:14 24 11/22/19 16:54 98.0 F 107 H 16 129/67 93 L Intake and Output 11/22/19 11/23/19 11/23/19 22:59 06:59 14:59 Intake Total 580 Balance 580 Intake: Oral 580 Other: Voiding Method Toilet Urinal # Voids 1 1 Weight 74.389 kg GENERAL: The patient is alert and oriented x3, not in any acute distress. Well developed, well nourished. HEENT: Pupils are round and equally reacting to light. EOMI. No scleral icterus. No conjunctival pallor. Normocephalic, atraumatic. No pharyngeal erythema. No thyromegaly. CARDIOVASCULAR: S1 and S2 present. No murmurs, rubs, or gallops. PULMONARY: Chest is clear to auscultation, bilateral expiratory scattered wheezing with no crackles. ABDOMEN: Soft, nontender, nondistended, normoactive bowel sounds. No palpable organomegaly. MUSCULOSKELETAL: No joint swelling or deformity. EXTREMITIES: No cyanosis, clubbing, or pedal edema. NEUROLOGICAL: Gross neurological examination did not reveal any focal deficits. SKIN: No rashes. No petechiae Results CBC & Chem 7: 11/22/19 17:09 11/22/19 17:09 Labs: Abnormal Lab Results - Last 24 Hours (Table) 11/22/19 11/22/19 Range/Units 17:09 17:09 WBC 11.2 H (3.8-10.6) k/uL RBC 3.86 L (4.30-5.90) m/uL Hgb 12.3 L (13.0-17.5) gm/dL Hct 36.7 L (39.0-53.0) % Plt Count 452 H (150-450) k/uL Neutrophils # 8.8 H (1.3-7.7) k/uL Sodium 132 L (137-145) mmol/L Chloride 96 L (98-107) mmol/L BUN 7 L (9-20) mg/dL Creatinine 0.52 L (0.66-1.25) mg/dL Total Protein 6.2 L (6.3-8.2) g/dL Thrombosis Risk Factor Assmnt - Choose All That Apply Each Factor Represents 1 point: Abnormal pulmonary function (COPD), Age 41-60 years, Obesity (BMI >25), Serious lung disease incl. pneumonia (< 1month) Other Risk Factors: No Other congenital or acquired thrombophilia - If yes, enter type in comment: No Thrombosis Risk Factor Assessment Total Risk Factor Score: 4 Thrombosis Risk Factor Assessment Level: Moderate Risk Assessment and Plan Assessment: Possible acute COPD exacerbation, patient hurt less likely to have pneumonia as he has no worsening leukocytosis and no fever Possible drug-seeking behavior, patient with multiple admissions to the hospital with similar complaints at [facility] and At [facility], persistently asking for pain medication history of Acute pulmonary embolism. CT of the thorax showing saddle embolus extending into the left upper lobe and all right-sided lobar branches and also possible right lower lobe. with Recent history of Acute right leg DVT, on Eliquis Recent history of Pneumonia with combined fungal and bacterial infection. Treated and is improving Stable and improving cavitating right upper lobe abscess. Thought to be fungal infection/fungal ball. Was on itraconazole (Sporanox), resolved 7 mm Pulmonary nodules in the right basal lung Leukocytosis, multifactorial due to infection and steroid effect. Improving Recent history herpez zoster , shingles of the left flank Left shoulder pain, left shoulder injury status post fall. recent orthopedic input Recommended outpatient follow-up in 1 week. 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 History of Coronary artery disease with history of [place]. Ongoing nicotine addiction Plan: This is a pleasant 59 years old male who presents with acute COPD exacerbation. No need for antibiotics. Follow-up sputum culture. Continue with bronchodilato r and oxygen. Pulmonary consult Labs and medication were reviewed.. Continue same treatment. Continue with symptomatic treatment. Resume home medication. Monitor lytes and vitals. DVT and GI prophylaxis. Further recommendations of the clinical course of the patient DVT prophylaxis: Eliquis GI Prophylaxis: Protonix Prognosis is guarded
[2019-11-24] MEDS: SYMBICORT 160-4.5 MCG INHALER INHALATION SCH ×2 (07:48→20:10)
[2019-11-24] MEDS: APIXABAN 5 MG TAB PO SCH ×2 (09:20→21:51)
[2019-11-24] MEDS: ATORVASTATIN 10 MG TAB PO SCH (09:20)
[2019-11-24] MEDS: METOPROLOL TARTRATE 25 MG TAB PO SCH ×2 (09:20→21:50)
[2019-11-24] MEDS: FOLIC ACID 1 MG TAB PO SCH (09:20)
[2019-11-24] MEDS: amLODIPine 10 MG TAB PO SCH (09:20)
[2019-11-24] MEDS: ASPIRIN 81 MG PO SCH (09:20)
[2019-11-24] MEDS: PANTOPRAZOLE 40 MG TABLET PO SCH (09:20)
[2019-11-24] MEDS: FAMOTIDINE 20 MG TAB PO SCH ×2 (09:20→21:51)
[2019-11-24] MEDS: predniSONE 20 MG TAB PO SCH (09:20)
[2019-11-24] MEDS: ESCITALOPRAM 10 MG TAB PO SCH (09:20)
[2019-11-24] MEDS: MECLIZINE 12.5 MG TAB PO SCH ×2 (09:21→21:50)
[2019-11-24] MEDS: HYDROcodone/APAP 5-325MG 1 EACH TAB PO PRN ×3 (09:40→21:54)
[2019-11-24] MEDS: GABAPENTIN 400 MG CAP PO SCH ×3 (09:41→21:51)
--- NOTE | 2019-11-24 12:24 | PN ---
PROGRESS NOTE PULMONARY/CRITICAL CARE PROGRESS NOTE: DATE OF SERVICE: 11/24/2019 A 59-year-old male with a history of shortness of breath and chest pain. The patient is doing about the same or slightly better today than he was yesterday. I really did not think he was in bad shape yesterday. In fact, listening to his lungs, he sounded actually quite good. The patient does have a history of underlying COPD with multiple admissions to the hospital for COPD exacerbation. The patient denies any fever or chills. There is minimal cough. Not producing any phlegm. No nausea, vomiting, diarrhea. No abdominal pain. No other complaints to mention. Currently, his vital signs are stable. Temperature is 97.2, heart rate 84, respiratory rate 16, blood pressure 109/65 mean 79, and saturations on 2.5 L is 99%. Appears in no acute distress. HEENT: Examination is grossly unremarkable. He has an enucleated right eye with a prosthesis. NECK: Supple, full range of motion. No adenopathy. Neck veins are flat. CARDIOVASCULAR: Examination reveals regular rhythm and rate. Heart rate mid 80s. S1, S2 normal. No murmur. LUNGS: Reveal mostly clear but somewhat diminished breath sounds. No wheezes, rhonchi, or crackles. ABDOMEN: Soft, bowel sounds are heard. EXTREMITIES: Intact. No cyanosis, clubbing, or edema. SKIN: Without rash. NEUROLOGIC: Examination is brief but nonfocal. No new labs to report. Microbiology is pending or negative. No new chest x-ray to report. MEDICATIONS: Reviewed. He is currently on Tylenol, Xanax, amlodipine, Eliquis, aspirin, Lipitor, Symbicort, Lexapro, Pepcid, folic acid, gabapentin, [place], DuoNeb, Antivert, melatonin, Robaxin, Lopressor, Singulair, Protonix, and 40 mg of prednisone. ASSESSMENT: 1. Mild chronic obstructive pulmonary disease exacerbation without clear-cut evidence of either tracheobronchitis and/or pneumonia. 2. Chronic hypoxemic respiratory failure. 3. History of angina pectoris. 4. Previous history of cerebrovascular accident. 5. History of deep venous thrombosis/pulmonary embolism. 6. History of benign essential hypertension. 7. Prior history of myocardial infarction. 8. Prior history of right upper lobe cavitary fungal infection secondary to Aspergillus fumigatus, resolved. 9. History of shingles involving the right eye, causing blindness and subsequent enucleation. PLAN: The patient is doing well. From our perspective, he could be discharged. The patient should follow up with his primary doctor and his property adjuster who I believe is Dr. Garcia. No additional recommendations are made. Prognosis is guarded. Will continue to follow. MMODL / IJN: [id number] /
--- NOTE | 2019-11-24 14:19 | P.PN ---
Subjective Progress Note Date: 11/24/19 Principal diagnosis: This is a 59-year-old male who was recently admitted with increased shortness of breath, associated with coughing with white phlegm, mild chest pain with cough ing and was being closely monitored. Patient has a known history of COPD and chronic hypoxic respiratory failure and O2 dependent at 2-3 L via nasal cannula. Pulmonary is following. Patient remains on breathing inhalation treatments along with oral steroids and will continue at this time. Patient continues to have generalized pain and requesting pain medications often per nursing staff. Currently no reports of worsening shortness of breath or palpitations. Patient continues to have some mild chest discomfort with coughing. Patient is afebrile. No reports of nausea or vomiting and patient has been tolerating diet. Objective - Vital Signs Vital signs: Vital Signs Temp 97.2 F L 11/24/19 05:00 Pulse 85 11/24/19 11:21 Resp 18 11/24/19 11:21 BP 109/65 11/24/19 05:00 Pulse Ox 99 11/24/19 05:00 Intake & Output 11/23/19 11/24/19 11/24/19 18:59 06:59 18:59 Intake Total 580 Balance 580 Intake: Oral 580 Other: Voiding Method Toilet Toilet Toilet Urinal Urinal Urinal # Voids 1 3 # Bowel Movements 2 - Exam GENERAL: The patient is alert and oriented x3, not in any acute distress. Well developed, well nourished. HEENT: Pupils are round and equally reacting to light. EOMI. No scleral icterus. No conjunctival pallor. Normocephalic, atraumatic. No pharyngeal erythema. No thyromegaly. CARDIOVASCULAR: S1 and S2 present. No murmurs, rubs, or gallops. PULMONARY: Diminished breath sounds at the bases with expiratory wheezing noted on exam ABDOMEN: Soft, nontender, nondistended, normoactive bowel sounds. No palpable organomegaly. MUSCULOSKELETAL: No joint swelling or deformity. EXTREMITIES: No cyanosis, clubbing, or pedal edema. NEUROLOGICAL: Gross neurological examination did not reveal any focal deficits. SKIN: No rashes. No petechiae - Labs CBC & Chem 7: 11/22/19 17:09 11/22/19 17:09 Assessment and Plan Assessment: Possible acute COPD exacerbation, patient less likely to have pneumonia as he has no worsening leukocytosis and no fever Possible drug-seeking behavior, patient with multiple admissions to the hospital with similar complaints at [facility] and At [facility], persistently asking for pain medication history of Acute pulmonary embolism. CT of the thorax showing saddle embolus extending into the left upper lobe and all right-sided lobar branches and also possible right lower lobe. with Recent history of Acute right leg DVT, on Eliquis Recent history of Pneumonia with combined fungal and bacterial infection. Treated and is improving Stable and improving cavitating right upper lobe abscess. Thought to be fungal infection/fungal ball. Was on itraconazole (Sporanox), resolved 7 mm Pulmonary nodules in the right basal lung Leukocytosis, multifactorial due to infection and steroid effect. Improving Recent history herpes zoster , shingles of the left flank Left shoulder pain, left shoulder injury status post fall. recent orthopedic input Recommended outpatient follow-up in 1 week. 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 History of Coronary artery disease with history of [place]. Ongoing nicotine addiction Plan: Recommend to continue with current medications, management, and symptomatic treatment. Continue with Breathing inhalational treatments and oral steroids. Instructed the patient to increase activity as tolerated. Prognosis is guarded. Further recommendations to follow. Possible discharge in 24-48 hours.
[2019-11-24] MEDS: METHOCARBAMOL 750 MG TAB PO SCH (21:50)
[2019-11-24] MEDS: MONTELUKAST 10 MG TAB PO SCH (21:51)
[2019-11-24] MEDS: MELATONIN 5 MG TABLET PO SCH (21:51)
[2019-11-25] MEDS: IPRATROPIUM-ALBUTEROL 3 ML NEB INHALATION PRN ×3 (03:17→10:52)
[2019-11-25 07:12] VITALS: BP 124/66; RESP 20; TEMP 96.8
[2019-11-25] MEDS: SYMBICORT 160-4.5 MCG INHALER INHALATION SCH (07:43)
[2019-11-25 07:47] VITALS: PULSE 80
[2019-11-25] MEDS: ATORVASTATIN 10 MG TAB PO SCH (08:54)
[2019-11-25] MEDS: FAMOTIDINE 20 MG TAB PO SCH (08:54)
[2019-11-25] MEDS: METOPROLOL TARTRATE 25 MG TAB PO SCH (08:54)
[2019-11-25] MEDS: amLODIPine 10 MG TAB PO SCH (08:54)
[2019-11-25] MEDS: ASPIRIN 81 MG PO SCH (08:54)
[2019-11-25] MEDS: PANTOPRAZOLE 40 MG TABLET PO SCH (08:55)
[2019-11-25] MEDS: APIXABAN 5 MG TAB PO SCH (08:55)
[2019-11-25] MEDS: predniSONE 20 MG TAB PO SCH (08:55)
[2019-11-25] MEDS: ESCITALOPRAM 10 MG TAB PO SCH (08:55)
[2019-11-25] MEDS: FOLIC ACID 1 MG TAB PO SCH (08:55)
[2019-11-25] MEDS: GABAPENTIN 400 MG CAP PO SCH (08:55)
[2019-11-25] MEDS: HYDROcodone/APAP 5-325MG 1 EACH TAB PO PRN (09:04)
[2019-11-25] MEDS: MECLIZINE 12.5 MG TAB PO SCH (09:18)
--- NOTE | 2019-11-25 13:15 | P.DS ---
Providers Date of admission: 11/24/19 08:34 Expected date of discharge: 11/25/19 Attending physician: Vu Gerardo Consults: 11/22/19 18:00 Consult Physician Routine Consulting Provider: Willie Garcia Consult Reason/Comments: dyspnea Do you want consulting provider notified?: Yes Primary care physician: [facility] Course: Final diagnosis acute COPD exacerbation Possible drug-seeking behavior history of Acute pulmonary embolism Recent history of Pneumonia with combined fungal and bacterial infection Stable and improving cavitating right upper lobe abscess 7 mm Pulmonary nodules in the right basal lung Leukocytosis, multifactorial due to infection and steroid effect Recent history herpes zoster Left shoulder pain, left shoulder injury status post fall History of CVA/TIA Chronic pain syndrome Hypertension GERD 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 History of Coronary artery disease with history of [place]. Ongoing nicotine addiction Discharge disposition Patient is being discharged in a stable condition with guarded prognosis to home. Patient will follow-up with Dr. Carrasco in the outpatient setting along with Dr. Garcia upon discharge. Patient will continue on a prednisone taper in the outpatient setting. Total time taken 35 minutes. History of present illness This is a 59-year-old male who was recently admitted with increased shortness of breath associated with coughing and phlegm and was being closely monitored. Patient is a known history of COPD and chronic hypoxic respiratory failure and is O2 dependent with 2 L via nasal cannula. Patient was seen and evaluated by pulmonary recommending outpatient follow-up with Dr. Garcia in 1-2 weeks. Patient was continued on DuoNeb's along with prednisone and will continue on a prednisone taper in the outpatient setting. Patient instructed at length to continue avoiding nicotine and smoking. Currently no reports of chest pain, palpitations, or shortness of breath. Patient is afebrile. No reports of nausea or vomiting and patient is tolerating diet. Patient will be discharged home this afternoon. On exam vital signs are stable. Temp is 96.8 F, pulse is 76, respirations are 20, blood pressure is 124/66, oxygen saturation is 99% on 2 L via nasal cannula. Cardio S1, S2 are muffled. Respiratory system shows diminished breath sounds at the bases. Abdomen is soft, obese, and nontender. Nervous system shows no focal deficits. Please refer to medication reconciliation sheet for a list of medications. Patient Condition at Discharge: Fair Plan - Discharge Summary Discharge Rx Participant: No New Discharge Prescriptions: New predniSONE 10 mg PO DIRECTED #30 tab Continue amLODIPine [Norvasc] 10 mg PO DAILY Escitalopram [Lexapro] 10 mg PO DAILY #15 tab Ipratropium-Albuterol Nebulize [Duoneb 0.5 mg-3 mg/3 ml Soln] 3 ml INHALATION RT-QID PRN PRN Reason: Shortness Of Breath Melatonin 10 mg PO HS Metoprolol Tartrate [Lopressor] 25 mg PO BID #60 tab Acetaminophen Tab [Tylenol] 500 - 1,000 mg PO Q8H PRN PRN Reason: Pain Meclizine [Antivert] 12.5 mg PO Q12H Famotidine 10 mg PO Q12H Pantoprazole Sodium [Protonix] 40 mg PO DAILY Folic Acid 1 mg PO DAILY Aspirin EC [Ecotrin Low Dose] 81 mg PO DAILY Nicotine 14Mg/24Hr Patch [Habitrol] 1 patch TRANSDERM DAILY patch Atorvastatin [Lipitor] 10 mg PO DAILY tab Budesonide [Pulmicort] 1 mg INHALATION RT-BID ml Montelukast [Singulair] 10 mg PO HS tab ALPRAZolam [Xanax] 0.25 mg PO BID PRN #3 tab PRN Reason: Anxiety Budesonide-Formot 160-4.5 Mcg [Symbicort 160-4.5 Mcg Inhaler] 2 puff INHALATION BID #1 inhaler Apixaban [Eliquis] 5 mg PO Q12H #60 tab Methocarbamol [Robaxin-750] 750 mg PO HS Gabapentin 800 mg PO TID Discharge Medication List amLODIPine [Norvasc] 10 mg PO DAILY 04/29/19 [History] Escitalopram [Lexapro] 10 mg PO DAILY #15 tab 05/15/19 [Rx] Ipratropium-Albuterol Nebulize [Duoneb 0.5 mg-3 mg/3 ml Soln] 3 ml INHALATION RT-QID PRN 06/13/19 [History] Melatonin 10 mg PO HS 08/12/19 [History] Metoprolol Tartrate [Lopressor] 25 mg PO BID #60 tab 09/30/19 [Rx] Acetaminophen Tab [Tylenol] 500 - 1,000 mg PO Q8H PRN 10/20/19 [History] Aspirin EC [Ecotrin Low Dose] 81 mg PO DAILY 10/20/19 [History] Famotidine 10 mg PO Q12H 10/20/19 [History] Folic Acid 1 mg PO DAILY 10/20/19 [History] Meclizine [Antivert] 12.5 mg PO Q12H 10/20/19 [History] Pantoprazole Sodium [Protonix] 40 mg PO DAILY 10/20/19 [History] ALPRAZolam [Xanax] 0.25 mg PO BID PRN #3 tab 10/23/19 [Rx] Atorvastatin [Lipitor] 10 mg PO DAILY tab 10/23/19 [Rx] Budesonide [Pulmicort] 1 mg INHALATION RT-BID ml 10/23/19 [Rx] Budesonide-Formot 160-4.5 Mcg [Symbicort 160-4.5 Mcg Inhaler] 2 puff INHALATION BID #1 inhaler 10/23/19 [Rx] Montelukast [Singulair] 10 mg PO HS tab 10/23/19 [Rx] Nicotine 14Mg/24Hr Patch [Habitrol] 1 patch TRANSDERM DAILY patch 10/23/19 [Rx] Apixaban [Eliquis] 5 mg PO Q12H #60 tab 11/08/19 [Rx] Gabapentin 800 mg PO TID 11/22/19 [History] Methocarbamol [Robaxin-750] 750 mg PO HS 11/22/19 [History] predniSONE 10 mg PO DIRECTED #30 tab 11/25/19 [Rx] Follow up Appointment(s)/Referral(s): Urszula Carrasco MD [Primary Care Provider] - 11/26/19 9:45 am ( to call you on the phone) Willie Garcia MD [STAFF PHYSICIAN] - 12/28/19 10:00 am Patient Instructions/Handouts: COPD (Chronic Obstructive Pulmonary Disease) (DC) Activity/Diet/Wound Care/Special Instructions: Activity limited until follow up follow up with primary care provider upon discharge continue current diet follow up with pulmonary in 2 weeks continue with prednisone taper avoid tobacco use Discharge Disposition: HOME SELF-CARE
== END 2019-11-25 11:25 | disposition home or self-care (01) | DRG 191 ==
LOC: EC 16:53 → 6NMEDSUR 18:14 → OBSVTOIN 11-24 08:34
PROVIDERS: ADMIT Internal Medicine; ATTEND Internal Medicine
DX: J44.1 Chronic obstructive pulmonary disease with (acute) exacerbation (principal); J96.11 Chronic respiratory failure with hypoxia; J44.0 Chronic obstructive pulmonary disease with (acute) lower respiratory infection; K21.9 Gastro-esophageal reflux disease without esophagitis; I25.2 Old myocardial infarction; I25.10 Atherosclerotic heart disease of native coronary artery without angina pectoris; E66.9 Obesity, unspecified; F32.9 Major depressive disorder, single episode, unspecified; F41.0 Panic disorder [episodic paroxysmal anxiety]; G89.4 Chronic pain syndrome; H54.61 Unqualified visual loss, right eye, normal vision left eye; I10 Essential (primary) hypertension; M75.01 Adhesive capsulitis of right shoulder; M25.512 Pain in left shoulder; R07.9 Chest pain, unspecified; F17.200 Nicotine dependence, unspecified, uncomplicated; T38.0X5A Adverse effect of glucocorticoids and synthetic analogues, initial encounter; D72.829 Elevated white blood cell count, unspecified; Z76.5 Malingerer [conscious simulation]; Z68.26 Body mass index [BMI] 26.0-26.9, adult; Z99.81 Dependence on supplemental oxygen; Z97.0 Presence of artificial eye; Z87.01 Personal history of pneumonia (recurrent); Z86.73 Personal history of transient ischemic attack (TIA), and cerebral infarction without residual deficits; Z86.718 Personal history of other venous thrombosis and embolism; Z86.711 Personal history of pulmonary embolism; Z79.01 Long term (current) use of anticoagulants; Z79.51 Long term (current) use of inhaled steroids; Z79.82 Long term (current) use of aspirin; Z79.899 Other long term (current) drug therapy; Z91.018 Allergy to other foods; Z91.010 Allergy to peanuts; Z80.51 Family history of malignant neoplasm of kidney; Z80.8 Family history of malignant neoplasm of other organs or systems; Z82.5 Family history of asthma and other chronic lower respiratory diseases
CPT/HCPCS: 36415; 71045; 80053; 83735; 83880; 84484; 85025; 85610; 85730; 93005; 94640; 99285

== ENCOUNTER 2019-11-27 15:37 | Inpatient (IN) | payer OTHER ==
[2019-11-27] MEDS ORDERED: ALBUTEROL NEBULIZED 2.5 MG/3 ML INHALATION STA (16:08)
--- NOTE | 2019-11-27 16:13 | ED ---
General Adult HPI - General Chief complaint: Shortness of Breath Stated complaint: Dyspnea Time Seen by Provider: 11/27/19 15:43 Source: patient, EMS, RN notes reviewed Mode of arrival: EMS Limitations: no limitations - History of Present Illness Initial comments: Patient is a pleasant 59-year-old male presenting to the emergency department with difficulty in breathing. Patient states symptoms are like previous COPD. Patient does have cough with chest congestion. Cough however is nonproductive. Patient states symptoms have worsened over the past couple of days. Patient also has chest discomfort however this is chronic associated with COPD. No leg pain or leg swelling. No fevers. - Related Data Home Medications Medication Instructions Recorded Confirmed amLODIPine [Norvasc] 10 mg PO DAILY 04/29/19 11/27/19 Ipratropium-Albuterol Nebulize 3 ml INHALATION RT-QID 06/13/19 11/27/19 [Duoneb 0.5 mg-3 mg/3 ml Soln] Melatonin 10 mg PO HS 08/12/19 11/27/19 Acetaminophen Tab [Tylenol] 500 - 1,000 mg PO Q8H PRN 10/20/19 11/27/19 Aspirin EC [Ecotrin Low Dose] 81 mg PO DAILY 10/20/19 11/27/19 Folic Acid 1 mg PO DAILY 10/20/19 11/27/19 Meclizine [Antivert] 12.5 mg PO Q12H 10/20/19 11/27/19 Pantoprazole Sodium [Protonix] 40 mg PO DAILY 10/20/19 11/27/19 Gabapentin 800 mg PO TID 11/22/19 11/27/19 Methocarbamol [Robaxin-750] 750 mg PO HS 11/22/19 11/27/19 predniSONE See Taper PO DIRECTED 11/27/19 11/27/19 Previous Rx's Medication Instructions Recorded Escitalopram [Lexapro] 10 mg PO DAILY #15 tab 05/15/19 Metoprolol Tartrate [Lopressor] 25 mg PO BID #60 tab 09/30/19 ALPRAZolam [Xanax] 0.25 mg PO BID PRN #3 tab 10/23/19 Atorvastatin [Lipitor] 10 mg PO DAILY tab 10/23/19 Budesonide-Formot 160-4.5 Mcg 2 puff INHALATION BID #1 inhaler 10/23/19 [Symbicort 160-4.5 Mcg Inhaler] Montelukast [Singulair] 10 mg PO HS tab 10/23/19 Nicotine 14Mg/24Hr Patch [Habitrol] 1 patch TRANSDERM DAILY patch 10/23/19 Apixaban [Eliquis] 5 mg PO Q12H #60 tab 11/08/19 Allergies Allergy/AdvReac Type Severity Reaction Status Date / Time tree nut [Nut] Allergy Unknown Dyspnea, Verified 11/27/19 17:28 Rash/Hives peanut [Peanut Butter] AdvReac Dyspnea, Verified 11/27/19 17:28 Rash/Hives Review of Systems ROS Statement: Those systems with pertinent positive or pertinent negative responses have been documented in the HPI. ROS Other: All systems not noted in ROS Statement are negative. 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 Last Myocardial Infarction Date:: unknown History of Any Multi-Drug Resistant Organisms: None Reported Past Surgical History: Orthopedic Surgery Additional Past Surgical History / Comment(s): metal plate left hand middle finger, right eye enucleation. Past Anesthesia/Blood Transfusion Reactions: No Reported Reaction Past Psychological History: Anxiety, Depression, Panic Disorder Smoking Status: Former smoker Past Alcohol Use History: Occasional Past Drug Use History: Marijuana - Past Family History Mother Family Medical History: Cancer Additional Family Medical History / Comment(s): Pt believes his Mom of Kidney Cancer Father Family Medical History: Cancer, COPD, Respiratory Disorder Additional Family Medical History / Comment(s): Melanoma General Exam Limitations: no limitations General appearance: alert, in no apparent distress Head exam: Present: normocephalic Eye exam: Present: normal appearance, PERRL ENT exam: Present: normal oropharynx Neck exam: Present: normal inspection Respiratory exam: Present: wheezes Cardiovascular Exam: Present: regular rate, normal rhythm Expanded Peripheral pulses: 2+: Dorsalis Pedis (R), Dorsalis Pedis (L) GI/Abdominal exam: Present: soft. Absent: tenderness Extremities exam: Present: normal inspection. Absent: pedal edema, calf tenderness Back exam: Present: normal inspection Neurological exam: Present: alert Psychiatric exam: Present: normal affect, normal mood Skin exam: Present: normal color Course Vital Signs 11/27/19 11/27/19 11/27/19 15:48 16:57 17:07 Temperature 98.5 F Pulse Rate 95 73 69 Respiratory 20 Rate Blood Pressure 100/67 O2 Sat by Pulse 95 Oximetry 11/27/19 17:52 Temperature Pulse Rate 82 Respiratory 18 Rate Blood Pressure 129/77 O2 Sat by Pulse 92 L Oximetry EKG Findings - EKG Comments: EKG Findings:: Normal sinus rhythm 81. FL 126. QRS 88. QT 390. QTC 453. Normal axis. Normal QRS. No acute ST change. Medical Decision Making - Medical Decision Making Patient reevaluated and resting comfortably in bed. Patient updated on results and plan. Case was discussed in detail with practitioner Kayley Pacheco, who will admit covering for Dr. Cano, who admits for Dr. Slaughter. - Lab Data Result diagrams: 11/27/19 15:16 11/27/19 15:16 Lab Results 11/27/19 11/27/19 11/27/19 Range/Units 15:16 15:16 15:16 WBC 14.2 H (3.8-10.6) k/uL RBC 4.06 L (4.30-5.90) m/uL Hgb 12.7 L (13.0-17.5) gm/dL Hct 38.6 L (39.0-53.0) % MCV 95.2 (80.0-100.0) fL MCH 31.4 (25.0-35.0) pg MCHC 33.0 (31.0-37.0) g/dL RDW 14.1 (11.5-15.5) % Plt Count 530 H (150-450) k/uL Neutrophils % 92 % Lymphocytes % 5 % Monocytes % 3 % Eosinophils % 0 % Basophils % 0 % Neutrophils # 13.1 H (1.3-7.7) k/uL Lymphocytes # 0.7 L (1.0-4.8) k/uL Monocytes # 0.4 (0-1.0) k/uL Eosinophils # 0.0 (0-0.7) k/uL Basophils # 0.0 (0-0.2) k/uL PT 10.1 (9.0-12.0) sec INR 1.0 (<1.2) APTT 23.5 (22.0-30.0) sec D-Dimer 1.58 H (<0.60) mg/L FEU Sodium 132 L (137-145) mmol/L Potassium 5.2 H (3.5-5.1) mmol/L Chloride 97 L (98-107) mmol/L Carbon Dioxide 30 (22-30) mmol/L Anion Gap 5 mmol/L BUN 15 (9-20) mg/dL Creatinine 0.51 L (0.66-1.25) mg/dL Est GFR (CKD-EPI)AfAm >90 (>60 ml/min/1.73 sqM) Est GFR (CKD-EPI)NonAf >90 (>60 ml/min/1.73 sqM) Glucose 119 H (74-99) mg/dL Plasma Lactic Acid Gray (0.7-2.0) mmol/L Calcium 9.8 (8.4-10.2) mg/dL Magnesium 2.1 (1.6-2.3) mg/dL Total Bilirubin 0.2 (0.2-1.3) mg/dL AST 47 (17-59) U/L ALT 44 (4-49) U/L Alkaline Phosphatase 65 (38-126) U/L Lactate Dehydrogenase 544 (313-618) U/L Troponin I (0.000-0.034) ng/mL C-Reactive Protein 7.6 (<10.0) mg/L NT-Pro-B Natriuret Pep pg/mL Total Protein 6.2 L (6.3-8.2) g/dL Albumin 3.8 (3.5-5.0) g/dL 11/27/19 11/27/19 11/27/19 Range/Units 15:16 15:16 15:16 WBC (3.8-10.6) k/uL RBC (4.30-5.90) m/uL Hgb (13.0-17.5) gm/dL Hct (39.0-53.0) % MCV (80.0-100.0) fL MCH (25.0-35.0) pg MCHC (31.0-37.0) g/dL RDW (11.5-15.5) % Plt Count (150-450) k/uL Neutrophils % % Lymphocytes % % Monocytes % % Eosinophils % % Basophils % % Neutrophils # (1.3-7.7) k/uL Lymphocytes # (1.0-4.8) k/uL Monocytes # (0-1.0) k/uL Eosinophils # (0-0.7) k/uL Basophils # (0-0.2) k/uL PT (9.0-12.0) sec INR (<1.2) APTT (22.0-30.0) sec D-Dimer (<0.60) mg/L FEU Sodium (137-145) mmol/L Potassium (3.5-5.1) mmol/L Chloride (98-107) mmol/L Carbon Dioxide (22-30) mmol/L Anion Gap mmol/L BUN (9-20) mg/dL Creatinine (0.66-1.25) mg/dL Est GFR (CKD-EPI)AfAm (>60 ml/min/1.73 sqM) Est GFR (CKD-EPI)NonAf (>60 ml/min/1.73 sqM) Glucose (74-99) mg/dL Plasma Lactic Acid Gray 1.9 (0.7-2.0) mmol/L Calcium (8.4-10.2) mg/dL Magnesium (1.6-2.3) mg/dL Total Bilirubin (0.2-1.3) mg/dL AST (17-59) U/L ALT (4-49) U/L Alkaline Phosphatase (38-126) U/L Lactate Dehydrogenase (313-618) U/L Troponin I <0.012 (0.000-0.034) ng/mL C-Reactive Protein (<10.0) mg/L NT-Pro-B Natriuret Pep 262 pg/mL Total Protein (6.3-8.2) g/dL Albumin (3.5-5.0) g/dL - Radiology Data Radiology results: report reviewed (CT angios chest as discussed with radiologist shows concern for right lower lobe pulmonary embolism as well as increasing lung nodules, possible recurrent primary), image reviewed (Chest x- ray shows right upper lobe infiltrate, subtle. COPD.) Critical Care Time Critical Care Time: Yes Total Critical Care Time: 31 Disposition Clinical Impression: COPD exacerbation, Pulmonary embolism Disposition: ADMITTED IP TO THIS [facility] Condition: Serious Is patient prescribed a controlled substance at d/c from ED?: No Referrals: Urszula Carrasco MD [Primary Care Provider] - 1-2 days Decision Time: 18:29
[2019-11-27 16:24] LABS: Basophils % (A) 0 %; Eosinophils % (A) 0 %; HCT 38.6 % (39.0-53.0); HGB 12.7 gm/dL (13.0-17.5); Lymphocytes # (A) 0.7 k/uL (1.0-4.8); Lymphocytes % (A) 5 %; MCH 31.4 pg (25.0-35.0); MCV 95.2 fL (80.0-100.0); Mean Platelet Volume 6.5; Monocytes # (A) 0.4 k/uL (0-1.0); Monocytes % (A) 3 %; Neutrophils # (A) 13.1 k/uL (1.3-7.7); Neutrophils % (A) 92 %; Platelet Count 530 k/uL (150-450); RBC 4.06 m/uL (4.30-5.90); RDW 14.1 % (11.5-15.5); WBC 14.2 k/uL (3.8-10.6)
[2019-11-27 16:38] LABS: Partial Thromboplastin Time 23.5 sec (22.0-30.0); Prothrombin Time 10.1 sec (9.0-12.0)
[2019-11-27 16:48] LABS: ALT 44 U/L (4-49); AST 47 U/L (17-59); African American GFR (CKD) >90 (>60 ml/min/1.73 sqM); Albumin 3.8 g/dL (3.5-5.0); Alkaline Phosphatase 65 U/L (38-126); Anion Gap 5 mmol/L; Blood Urea Nitrogen 15 mg/dL (9-20); C Reactive Protein 7.6 mg/L (<10.0); Calcium 9.8 mg/dL (8.4-10.2); Carbon Dioxide 30 mmol/L (22-30); Chloride 97 mmol/L (98-107); Glucose 119 mg/dL (74-99); LDH 544 U/L (313-618); Magnesium 2.1 mg/dL (1.6-2.3); Non-African American GFR(CKD) >90 (>60 ml/min/1.73 sqM); Potassium 5.2 mmol/L (3.5-5.1); Sodium 132 mmol/L (137-145); Total Bilirubin 0.2 mg/dL (0.2-1.3); Total Protein 6.2 g/dL (6.3-8.2)
[2019-11-27 16:49] LABS: D-Dimer 1.58 mg/L FEU (<0.60)
--- NOTE | 2019-11-27 16:58 | XR ---
EXAMINATION TYPE: XR chest 2V DATE OF EXAM: 11/27/2019 COMPARISON: 11/22/2019 INDICATION: Difficulty breathing TECHNIQUE: Frontal and lateral views of the chest are obtained. FINDINGS: The heart size is normal. The pulmonary vasculature is normal. Some minimal infiltrate may be within the lingula. This appears improved. There is hyperinflation fla ttening the diaphragms compatible COPD. Some focal increased uptake may be at the second anterior rig ht rib end, this could be summation density. IMPRESSION: 1. Minimal improving lingular infiltrate. 2. COPD. 3. Subtle infiltrate may be at the right upper lobe not clearly evident previously. Summation densiti es within the differential at this location
--- NOTE | 2019-11-27 18:21 | CT ---
CT CHEST FOR PULMONARY EMBOLISM. EXAMINATION TYPE: CT angio chest DATE OF EXAM: 11/27/2019 INDICATION: elevated d-dimer CT DLP: 377.7 mGycm, Automated exposure control for dose reduction was used. CONTRAST: Patient injected with 81cc mL of Isovue 370. COMPARISON: 10/21/2019 TECHNIQUE: CT of the chest is performed on a spiral scan at 2 mm thick sections. Study is performed with intravenous contrast timed for evaluation for pulmonary embolism. This will limit additional po rtions of the evaluation. 3-D MIP images reconstructed by the technologist are reviewed on the compu ter in the coronal and sagittal planes. FINDINGS: There is filling defect within the right lower lobe pulmonary artery. No mediastinal or hilar adenopathy enlarged by CT criteria is evident. The ascending aorta diameter at the level of the main pulmonary artery is 3.1 cm. The main pulmonary artery diameter at the bifur cation is 2.6 cm. There are lung nodules present bilaterally. In the posterior left lung bases measures 0.8 cm and 0.9 cm, series 401 image 115. These appear to have enlarged from the prior exam. There is a 1.1 cm nodule in the posterior right upper lung field. This is smaller than the 1.3 cm pre vious There is some minimal wispy infiltrate within the lingula. Some mild peribronchial thickening is note d. Emphysematous changes are present with large blebs along the margins of the lung brown bilaterally. Some intratracheal and intraoperative left bronchial fluid or mucus appears to be present. Limited CT section through the upper abdomen. Small gallstone may be present. IMPRESSIONS: 1. Acute pulmonary embolism right lower lobe pulmonary artery. Report was called to Dr. Harper by Dr. Gomez by telephone [id number] hours 11/27/2019 2. Increasing in size of nodules within the right upper and left posterior lung base. The should be s uspicious for metastatic disease. 3. Advanced emphysematous blebs evident present previously. 4. Cholelithiasis.
[2019-11-27] MEDS ORDERED: HEPARIN SODIUM,PORCINE 5,000 UNIT/ML 1 ML VIAL IV PRN (18:29)
[2019-11-27] MEDS: HEPARIN SOD,PORK IN 0.45% NACL 25,000 UNIT in 0.45% NACL 1 250ML.BAG IV SCH (18:57)
[2019-11-27] MEDS: IPRATROPIUM-ALBUTEROL 3 ML NEB INHALATION SCH (19:48)
[2019-11-27] MEDS ORDERED: ALPRAZolam 0.25 MG TAB PO PRN (22:11)
[2019-11-27 23:25] LABS: Ferritin 83.4 ng/mL (22.0-322.0)
[2019-11-27] MEDS: IPRATROPIUM-ALBUTEROL 3 ML NEB INHALATION PRN (23:27)
[2019-11-27] MEDS: MELATONIN 5 MG TABLET PO SCH (23:43)
[2019-11-27] MEDS: METHOCARBAMOL 750 MG TAB PO SCH (23:44)
[2019-11-27] MEDS: MONTELUKAST 10 MG TAB PO SCH (23:44)
[2019-11-27] MEDS: METOPROLOL TARTRATE 25 MG TAB PO SCH (23:44)
[2019-11-28] MEDS: IPRATROPIUM-ALBUTEROL 3 ML NEB INHALATION SCH ×4 (07:11→20:47)
[2019-11-28 08:31] LABS: Basophils % (A) 0 %; Eosinophils # (A) 0.2 k/uL (0-0.7); Eosinophils % (A) 1 %; HCT 39.1 % (39.0-53.0); HGB 12.8 gm/dL (13.0-17.5); Lymphocytes # (A) 2.4 k/uL (1.0-4.8); Lymphocytes % (A) 21 %; MCH 31.8 pg (25.0-35.0); MCHC 32.7 g/dL (31.0-37.0); MCV 97.3 fL (80.0-100.0); Mean Platelet Volume 6.6; Monocytes # (A) 0.6 k/uL (0-1.0); Monocytes % (A) 6 %; Neutrophils % (A) 70 %; Platelet Count 530 k/uL (150-450); RBC 4.02 m/uL (4.30-5.90); WBC 11.4 k/uL (3.8-10.6)
[2019-11-28] MEDS: METOPROLOL TARTRATE 25 MG TAB PO SCH ×2 (09:12→20:41)
[2019-11-28] MEDS: HEPARIN SOD,PORK IN 0.45% NACL 25,000 UNIT in 0.45% NACL 1 250ML.BAG IV SCH (11:58)
[2019-11-28] MEDS: HYDROmorphone 0.5 MG/0.5 ML SYRINGE IVP PRN ×3 (12:39→23:05)
[2019-11-28] MEDS ORDERED: ACETAMINOPHEN TAB 500 MG TAB PO PRN (12:52)
[2019-11-28] MEDS ORDERED: GABAPENTIN 400 MG CAP PO SCH (13:00)
--- NOTE | 2019-11-28 13:06 | P.CNPUL ---
History of Present Illness Consult date: 11/28/19 Requesting physician: Tricia Cano Reason for consult: dyspnea, chest pain Chief complaint: Shortness of breath, chest discomfort History of present illness: This is a pleasant 59-year-old gentleman follows in our office for chronic obstructive pulmonary disease. He has chronic and ongoing tobacco dependence, marijuana use. He also has a history of a right upper lobe fungal pneumonia Aspergillus fumigatus back in March 2019 treated with Sporanox and Augmentin. Most recent chest x-ray shows near complete resolution. 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 He is coming in for worsening shortness of breath and difficulty breathing and COPD exacerbation. Has had multiple admissions to the hospital for the same, this is the seventh time so far this year and he was just discharged on 11/25/2019. He is came back here 2 days later to the emergency room. He was having increased cough with limited sputum production. No fever. No chills. Mild chest wall pain. He is known to have a previous fungal infection in the right upper lobe that was treated with itraconazole with good results. A repeat CAT scan of the chest was done in October 2019 and showed improving cavitary lesion in the the right upper lobe and possibly a new infiltrate in the left lung base above the diaphragm. Note that his most recent bronchioloalveolar lavage that was done on 09/17/2019 showed mckinley bacterium species and Larissa. He is seen in consultation today 11/28/2019 on the regular medical floor. He is currently awake and alert in no acute distress. he is maintaining O2 saturations up to 100% on 2 L/m per nasal cannula. Afebrile. Hemodynamically stable. White count 11.4. Hemoglobin 12.8. Platelet count 530.creatinine 0.51. Troponin negative. D-dimer 1.58.chest x-ray showed minimal improvement in the lingular infiltrate. Evidence of COPD. Subtle infiltrate at the right upper lobe not seen previously on 11/22/2019.CT angiogram or read as acute pulmonary embolism in the right lower lobe. There is increasing nodules in the right upper and left posterior lung base. Advanced emphysematous blebs. EKG shows normal sinus rhythm with no ST or T wave abnormalities. He has been maintained on Eliquis in the outpatient setting. Review of Systems REVIEW OF SYSTEMS: CONSTITUTIONAL: Denies any recent significant weight loss or weight gain. EYES: Denies change in vision. EARS, NOSE, MOUTH, THROAT: Denies headaches, denies sore throat. CARDIOVASCULAR: Positive for chest pain, no palpitations no syncopal episodes. RESPIRATORY: Positive for shortness of breath, cough, congestion no hemoptysis. GASTROINTESTINAL: Denies change in appetite, denies abdominal pain GENITOURINARY: Denies hematuria, denies infections. MUSKULOSKELETAL: Denies pain, denies swelling. INTEGUMENTARY: Denies rash, denies eczema. NEUROLOGICAL: Denies recent memory loss, no recent seizure activity. PSYCHIATRIC: Denies anxiety, denies depression. HEMATOLOGIC/LYMPHATIC: Denies anemia, denies enlarged lymph nodes. 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 Last Myocardial Infarction Date:: unknown History of Any Multi-Drug Resistant Organisms: None Reported Past Surgical History: Orthopedic Surgery Additional Past Surgical History / Comment(s): metal plate left hand middle finger, right eye enucleation. Past Anesthesia/Blood Transfusion Reactions: No Reported Reaction Past Psychological History: Anxiety, Depression, Panic Disorder Additional Psychological History / Comment(s): Lives in apartment. Has a nebulizer/oxygen. 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 - Past Family History Mother Family Medical History: Cancer Additional Family Medical History / Comment(s): Pt believes his Mom of Kidney Cancer Father Family Medical History: Cancer, COPD, Respiratory Disorder Additional Family Medical History / Comment(s): Melanoma Medications and Allergies Home Medications Medication Instructions Recorded Confirmed Type amLODIPine [Norvasc] 10 mg PO DAILY 04/29/19 11/27/19 History Escitalopram [Lexapro] 10 mg PO DAILY #15 tab 05/15/19 11/27/19 Rx Ipratropium-Albuterol Nebulize 3 ml INHALATION RT-QID 06/13/19 11/27/19 History [Duoneb 0.5 mg-3 mg/3 ml Soln] Melatonin 10 mg PO HS 08/12/19 11/27/19 History Metoprolol Tartrate [Lopressor] 25 mg PO BID #60 tab 09/30/19 11/27/19 Rx Acetaminophen Tab [Tylenol] 500 - 1,000 mg PO Q8H PRN 10/20/19 11/27/19 History Aspirin EC [Ecotrin Low Dose] 81 mg PO DAILY 10/20/19 11/27/19 History Folic Acid 1 mg PO DAILY 10/20/19 11/27/19 History Meclizine [Antivert] 12.5 mg PO Q12H 10/20/19 11/27/19 History Pantoprazole Sodium [Protonix] 40 mg PO DAILY 10/20/19 11/27/19 History ALPRAZolam [Xanax] 0.25 mg PO BID PRN #3 tab 10/23/19 11/27/19 Rx Atorvastatin [Lipitor] 10 mg PO DAILY tab 10/23/19 11/27/19 Rx Budesonide-Formot 160-4.5 Mcg 2 puff INHALATION BID #1 inhaler 10/23/19 11/27/19 Rx [Symbicort 160-4.5 Mcg Inhaler] Montelukast [Singulair] 10 mg PO HS tab 10/23/19 11/27/19 Rx Nicotine 14Mg/24Hr Patch [Habitrol] 1 patch TRANSDERM DAILY patch 10/23/19 11/27/19 Rx Apixaban [Eliquis] 5 mg PO Q12H #60 tab 11/08/19 11/27/19 Rx Gabapentin 800 mg PO TID 11/22/19 11/27/19 History Methocarbamol [Robaxin-750] 750 mg PO HS 11/22/19 11/27/19 History predniSONE See Taper PO DIRECTED 11/27/19 11/27/19 History Allergies Allergy/AdvReac Type Severity Reaction Status Date / Time tree nut [Nut] Allergy Unknown Dyspnea, Verified 11/27/19 17:28 Rash/Hives peanut [Peanut Butter] AdvReac Dyspnea, Verified 11/27/19 17:28 Rash/Hives Physical Exam Vitals: Vital Signs Temp Pulse Pulse Resp BP BP Pulse Ox 11/28/19 11:56 84 16 115/59 100 11/28/19 10:59 92 11/28/19 10:52 84 11/28/19 08:40 98.2 F 91 16 104/57 98 11/28/19 07:30 88 11/28/19 07:15 80 11/28/19 05:15 97.7 F 75 16 126/68 100 11/28/19 02:33 93 18 11/27/19 23:45 87 16 115/56 99 11/27/19 23:39 90 18 11/27/19 23:27 91 11/27/19 21:51 97.8 F 79 18 129/80 99 11/27/19 20:45 98.1 F 81 20 138/86 97 11/27/19 20:04 72 11/27/19 19:52 98 11/27/19 19:48 72 11/27/19 19:30 98.2 F 75 20 135/65 98 11/27/19 18:30 97.9 F 80 18 121/76 98 11/27/19 17:52 82 18 129/77 92 L 11/27/19 17:07 69 11/27/19 16:57 73 11/27/19 15:48 98.5 F 95 20 100/67 95 Intake and Output 11/27/19 11/28/19 11/28/19 22:59 06:59 14:59 Intake Total 222 415.455 Output Total 200 Balance 222 -200 415.455 Intake: Intake, IV Titration 215.455 Amount Heparin Sod,Pork in 0.45% 215.455 NaCl 25,000 unit In 0.45 % NaCl 1 250ml.bag @ 18 UNITS/KG/HR 12.9 mls/hr IV .[id number] [facility] Rx#: [id number] Oral 222 200 Output: Urine 200 Other: Voiding Method Urinal Urinal # Bowel Movements 1 Weight 71.668 kg 73.5 kg GENERAL EXAM: Alert, 59-year-old male patient, on 2 L of oxygen with a pulse ox of 100% comfortable in no apparent distress. HEAD: Normocephalic/atraumatic. EYES: Normal reaction of pupils, in the left eye, patient has a prosthetic right eye. Conjunctiva pink, sclera white. NOSE: Clear with pink turbinates. THROAT: No erythema or exudates. NECK: No masses, no JVD, no thyroid enlargement, no adenopathy. CHEST: No chest wall deformity. Symmetrical expansion. LUNGS: Equal air entry with end expiratory wheeze, diminished CVS: Regular rate and rhythm, normal S1 and S2, no gallops, no murmurs, no rubs ABDOMEN: Soft, nontender. No hepatosplenomegaly, normal bowel sounds, no guarding or rigidity. EXTREMITIES: No clubbing, no edema, no cyanosis, 2+ pulses and upper and lower extremities. Left arm is in a sling MUSCULOSKELETAL: Muscle strength and tone normal. SPINE: No scoliosis or deformity. SKIN: No rashes no wounds CENTRAL NERVOUS SYSTEM: No focal deficits, tone is normal in all 4 extremities. PSYCHIATRIC: Alert and oriented -3. Appropriate affect. Intact judgment and insight. Results - Laboratory Findings CBC and BMP: 11/28/19 08:00 11/27/19 15:16 PT/INR, D-dimer PT 10.1 sec (9.0-12.0) 11/27/19 15:16 INR 1.0 (<1.2) 11/27/19 15:16 D-Dimer 1.58 mg/L FEU (<0.60) H 11/27/19 15:16 Abnormal lab findings: Abnormal Labs 11/27/19 11/27/19 11/27/19 15:16 15:16 15:16 WBC 14.2 H RBC 4.06 L Hgb 12.7 L Hct 38.6 L Plt Count 530 H Neutrophils # 13.1 H Lymphocytes # 0.7 L APTT D-Dimer 1.58 H Sodium 132 L Potassium 5.2 H Chloride 97 L Creatinine 0.51 L Glucose 119 H Total Protein 6.2 L 11/28/19 11/28/19 11/28/19 00:38 08:00 08:00 WBC 11.4 H RBC 4.02 L Hgb 12.8 L Hct Plt Count 530 H Neutrophils # 8.0 H Lymphocytes # APTT 52.0 H 72.4 H D-Dimer Sodium Potassium Chloride Creatinine Glucose Total Protein - Diagnostic Findings Chest x-ray: image reviewed CT scan - chest: image reviewed Assessment and Plan Assessment: 1 Atypical chest pain in a patient found to normal EKG, negative troponin. CT angiogram with questionable acute pulmonary embolism in the right lower lobe compared to previous in October 2019. on Eliquis in the outpatient setting. Increased size of nodules in the right upper and left lower lung. Cannot rule out metastatic disease. Advanced emphysematous blebs present. 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 No worse since 07/19/2019. 5 History of PE/DVT, anticoagulated with Eliquis. 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 Vogt CT angiogram reviewed. Suspect chronic pulmonary embolism. Continue Eliquis. Significant blebs/emphysema, nodularity Recommend follow-up computed tomography scan in 3 months Continue COPD treatment including Symbicort, DuoNeb, steroids Educated again regarding the importance of complete smoking cessation NicoDerm patch applied We'll continue to follow and make further recommendations based on his clinical status. I, the cosigning physician, performed a history & physical examination of the patient. Lungs sounds with bilateral end expiratory wheeze, diminished. Maintaining good O2 saturations in the 90s on 2 L/m per nasal cannula. I discussed the assessment and plan of care with my nurse practitioner, Crissy Bland. I attest to the above consultation as dictated by her. Time with Patient: Greater than 30
[2019-11-28] MEDS: PANTOPRAZOLE 40 MG TABLET PO SCH (14:11)
[2019-11-28] MEDS: GABAPENTIN 400 MG CAP PO SCH ×2 (14:11→20:40)
[2019-11-28] MEDS: MECLIZINE 12.5 MG TAB PO SCH ×2 (14:12→20:41)
[2019-11-28] MEDS: methylPREDNISolone SOD SUCCI 40 MG/ML 1 ML VIAL IV SCH ×3 (14:13→23:05)
[2019-11-28] MEDS: NICOTINE 14MG/24HR PATCH TRANSDERM SCH (14:15)
[2019-11-28] MEDS: SYMBICORT 160-4.5 MCG INHALER INHALATION SCH ×2 (15:00→20:47)
[2019-11-28] MEDS: LEVOFLOXACIN 500MG-D5W PMX 500 MG in DEXTROSE/WATER 1 100ML.BAG IVPB SCH (16:14)
--- NOTE | 2019-11-28 16:29 | HP ---
HISTORY AND PHYSICAL DATE OF SERVICE: 11/28/2019 CHIEF COMPLAINT: Shortness of breath and as well as chest pain, difficulty breathing and chest congestion. HISTORY OF PRESENT ILLNESS: This 59-year-old gentleman with a past medical history of multiple medical problems including COPD, CVA, TIA, history of DVT, hypertension, myocardial infarction, pulmonary embolism, history of right upper lobe consolidation, thought to be fungal, Aspergillus fumigatus, chronic hypoxic respiratory failure, history of DJD, anxiety, depression, being followed by Dr. Urszula Carrasco in the outpatient setting was recently admitted to [facility] with acute COPD exacerbation and the patient had pulmonary nodule and the patient was treated with bronchodilators and steroids. Patient improved significantly. Patient went home. Currently the patient complaining increased shortness of breath and as well as right-sided chest pain. Patient came to [facility] and admitted for further evaluation and treatment. WBC elevated 14.2. D-dimer is 1.58. The patient underwent a CT scan, CT of the chest, which showed evidence of acute pulmonary embolism in the right lower lobe and increased size of the nodule in the right upper lobe was also noted and advanced emphysematous bleb changes and cholelithiasis also noted. Patient admitted for further evaluation and treatment. There is no history of any fever, rigors. No history of headache, loss of consciousness or seizures at this time. PAST MEDICAL HISTORY: History of COPD, CVA, TIA, DVT, hypertension, myocardial infarction, pneumonia, pulmonary embolism, history of respiratory disorder. MEDICATIONS: Medications prior to home medications are: 1. Prednisone taper. 2. Norvasc 10 mg p.o. daily. 3. Protonix 40 mg p.o. daily. 4. Habitrol 14 patch. 5. Singulair 10 mg at bedtime. 6. Lopressor 25 mg p.o. b.i.d. 7. Robaxin 750 mg at bedtime. 8. Melatonin 10 mg at bedtime. 9. Antivert 12.5 mg b.i.d. 10.DuoNeb q.i.d. 11.Gabapentin 800 mg p.o. t.i.d. 12.Folic acid 1 mg p.o. daily. 13.Lexapro 10 mg p.o. daily. 14.Symbicort 160/4.5 two puffs b.i.d. 15.Lipitor 10 mg p.o. daily. 16.Ecotrin 81 mg p.o. daily. 17.Eliquis 5 mg p.o. b.i.d. 18.Tylenol 500 to 1000 mg q.8 p.r.n. 19.Xanax 0.25 b.i.d. p.r.n. ALLERGIES: TREE NUTS and PEANUTS. FAMILY HISTORY: History of kidney cancer in the family. SOCIAL HISTORY: Previous history of smoking. Occasional alcohol intake. REVIEW OF SYSTEMS: ENT: Diminished hearing and diminished vision. CARDIOVASCULAR SYSTEM: No angina. RESPIRATORY SYSTEM: As mentioned earlier. GI: As mentioned earlier. : No dysuria. NERVOUS SYSTEM: No numbness or weakness. ALLERGY/IMMUNOLOGY: As mentioned earlier. MUSCULOSKELETAL: As mentioned earlier. HEMATOLOGY/ONCOLOGY: No history of anemia. ENDOCRINE: No history of hypothyroidism, diabetes. CONSTITUTIONAL: As mentioned earlier. DERMATOLOGY: Negative. RHEUMATOLOGY: Negative. PSYCHIATRY: As mentioned earlier. PHYSICAL EXAMINATION: The patient is alert and oriented x3. Pulse 84, blood pressure 115/59, respirations 16, temperature normal, pulse ox 100% on 2 L. HEENT: Conjunctivae normal. Oral mucosa moist. NECK: No jugular venous distention. No carotid bruit. No lymph node enlargement. CARDIOVASCULAR: S1, S2 muffled. RESPIRATORY: Breath sounds diminished at the bases. Bilateral scattered rhonchi and expiratory wheezing also present. ABDOMEN: Soft, nontender. No mass palpable. LEGS: No edema, no swelling. NERVOUS SYSTEM: Higher function as mentioned earlier. Moves all 4 limbs. LYMPHATICS: No lymphadenopathy of the neck, axillae or groin. SKIN: No ulcer, rash or bleeding. JOINTS: No active deforming arthropathy. LABS: WBC ntd, hemoglobin 12.8, platelets 530. ASSESSMENT: 1. Acute right lower lobe pulmonary embolism. 2. Chronic obstructive pulmonary disease acute exacerbation acute purulent tracheobronchitis. 3. Hyponatremia. 4. Mild hyperkalemia. 5. Increased WBC. 6. Anemia of chronic disease, increased platelets. 7. History of chronic obstructive pulmonary disease. 8. History of cerebrovascular accident , transient ischemic attack. 9. History of deep venous thrombosis. 10.Hypertension. 11.History of myocardial infarction. 12.History of pneumonia. 13.History of pulmonary embolism. 14.Heparin monitoring. 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 16.Chronic hypoxic respiratory failure, oxygen 2 L nasal cannula. 17.History of shingles. 18.History of basal ganglia hemorrhage and right arm weakness in 2015. 19.History of right frozen shoulder. 20.History of chronic chest pains and pain syndrome. 21.Anxiety, depression, panic disorder. 22.History of nicotine dependence. 23.FULL CODE. RECOMMENDATIONS AND DISCUSSION: This 59-year-old gentleman presented with multiple complex medical issues, we will monitor the patient closely. Continue the current medications and continue symptomatic treatment. Will initiate IV heparin. Continue to monitor. Pulmonary consultation. Resume the rest of medications. I would also recommend a course of IV steroids. Monitor blood sugars closely. Empiric antibiotics also will be given. Prognosis guarded. Further recommendations to follow. A copy of dictation forwarded to Dr. Urszula Carrasco who is the primary physician. TANO / ABBEY: [id number] / MTDD
[2019-11-28 17:15] LABS: Glucose,Whole Blood 121 mg/dL (75-99)
[2019-11-28] MEDS: INSULIN ASPART (NovoLOG) 100 UNIT/ML VIAL SQ SCH ×2 (17:17→20:40)
[2019-11-28 20:20] LABS: Glucose,Whole Blood 174 mg/dL (75-99)
[2019-11-28] MEDS: METHOCARBAMOL 750 MG TAB PO SCH (20:41)
[2019-11-28] MEDS: MELATONIN 5 MG TABLET PO SCH (20:41)
[2019-11-28] MEDS: MONTELUKAST 10 MG TAB PO SCH (20:41)
[2019-11-28] MEDS: IPRATROPIUM-ALBUTEROL 3 ML NEB INHALATION PRN (23:49)
[2019-11-29] MEDS: IPRATROPIUM-ALBUTEROL 3 ML NEB INHALATION PRN (03:51)
[2019-11-29] MEDS: HYDROmorphone 0.5 MG/0.5 ML SYRINGE IVP PRN ×4 (04:36→18:08)
[2019-11-29 06:28] LABS: Glucose,Whole Blood 143 mg/dL (75-99)
[2019-11-29 06:47] LABS: Basophils % (A) 0 %; Eosinophils # (A) 0.1 k/uL (0-0.7); Eosinophils % (A) 1 %; HCT 36.2 % (39.0-53.0); HGB 11.4 gm/dL (13.0-17.5); Lymphocytes # (A) 0.5 k/uL (1.0-4.8); Lymphocytes % (A) 4 %; MCH 30.6 pg (25.0-35.0); MCHC 31.4 g/dL (31.0-37.0); MCV 97.3 fL (80.0-100.0); Mean Platelet Volume 6.7; Monocytes # (A) 0.3 k/uL (0-1.0); Monocytes % (A) 2 %; Neutrophils # (A) 13.4 k/uL (1.3-7.7); Neutrophils % (A) 94 %; Platelet Count 429 k/uL (150-450); RBC 3.72 m/uL (4.30-5.90); RDW 13.9 % (11.5-15.5); WBC 14.3 k/uL (3.8-10.6)
[2019-11-29] MEDS: methylPREDNISolone SOD SUCCI 40 MG/ML 1 ML VIAL IV SCH ×3 (06:49→17:10)
[2019-11-29] MEDS: PANTOPRAZOLE 40 MG TABLET PO SCH (06:49)
[2019-11-29] MEDS: INSULIN ASPART (NovoLOG) 100 UNIT/ML VIAL SQ SCH ×4 (06:50→21:12)
[2019-11-29 07:29] LABS: African American GFR (CKD) >90 (>60 ml/min/1.73 sqM); Anion Gap 2 mmol/L; Blood Urea Nitrogen 20 mg/dL (9-20); Calcium 8.9 mg/dL (8.4-10.2); Carbon Dioxide 30 mmol/L (22-30); Chloride 100 mmol/L (98-107); Glucose 128 mg/dL (74-99); Non-African American GFR(CKD) >90 (>60 ml/min/1.73 sqM); Potassium 4.6 mmol/L (3.5-5.1); Sodium 132 mmol/L (137-145)
[2019-11-29] MEDS: IPRATROPIUM-ALBUTEROL 3 ML NEB INHALATION SCH ×4 (08:20→19:34)
[2019-11-29] MEDS: SYMBICORT 160-4.5 MCG INHALER INHALATION SCH ×2 (08:20→19:35)
[2019-11-29] MEDS: ASPIRIN 81 MG PO SCH (09:06)
[2019-11-29] MEDS: GABAPENTIN 400 MG CAP PO SCH ×3 (09:06→21:13)
[2019-11-29] MEDS: ATORVASTATIN 10 MG TAB PO SCH (09:06)
[2019-11-29] MEDS: FOLIC ACID 1 MG TAB PO SCH (09:06)
[2019-11-29] MEDS: METOPROLOL TARTRATE 25 MG TAB PO SCH ×2 (09:06→21:14)
[2019-11-29] MEDS: amLODIPine 10 MG TAB PO SCH (09:12)
[2019-11-29] MEDS: MECLIZINE 12.5 MG TAB PO SCH ×2 (09:13→21:55)
[2019-11-29] MEDS: ESCITALOPRAM 10 MG TAB PO SCH (09:13)
[2019-11-29] MEDS: NICOTINE 14MG/24HR PATCH TRANSDERM SCH (09:13)
[2019-11-29] MEDS: HEPARIN SOD,PORK IN 0.45% NACL 25,000 UNIT in 0.45% NACL 1 250ML.BAG IV SCH (11:20)
[2019-11-29 12:07] LABS: Glucose,Whole Blood 98 mg/dL (75-99)
[2019-11-29] MEDS: LEVOFLOXACIN 500MG-D5W PMX 500 MG in DEXTROSE/WATER 1 100ML.BAG IVPB SCH (14:06)
[2019-11-29 16:33] LABS: Glucose,Whole Blood 171 mg/dL (75-99)
--- NOTE | 2019-11-29 19:32 | PN ---
PROGRESS NOTE DATE OF SERVICE: 11/29/2019 This 59-year-old gentleman who was admitted with multiple medical problems including chest pain, also had acute pulmonary embolism. Patient on IV heparin, reporting some relief. Patient on bronchodilators and steroids also. PAST MEDICAL HISTORY: Reviewed. REVIEW OF SYSTEMS: Cardiovascular system is as mentioned earlier. GI: No nausea or vomiting. no dysuria. Nervous systems: No numbness or weakness. CURRENT MEDICATIONS ARE: Reviewed and include: 1. Tylenol p.r.n. 2. DuoNeb q.i.d. and p.r.n. 3. Xanax 0.5 b.i.d. 4. Norvasc 10 mg. 5. Aspirin 81 mg. 6. Lipitor 10 mg daily. 7. Symbicort 160/4.5 two puffs b.i.d. 8. Lexapro 10 mg daily. 9. Folic acid 1 mg. 10.Neurontin 800 mg p.o. t.i.d. 11.Heparin drip. 12.Dilaudid p.r.n. 13.Levaquin 500 mg daily. 14.Melatonin. 15.Robaxin. 16.Solu-Medrol. 17.Habitrol 14 daily. 18.Protonix. PHYSICAL EXAMINATION: Patient is alert, oriented x3. Pulse is 91, blood pressure 131/73, respiration 18, temperature 98 degrees, pulse ox 97% on 3 L. HEENT: Conjunctivae normal. NECK: No JVD. CARDIOVASCULAR: S1, S2 muffled. RESPIRATIONS: Breath sounds diminished in the bases. Scattered rhonchi and crackles. ABDOMEN: Soft. Nontender. Nervous system: No focal deficits. LAB STUDIES: WBC 14.3, hemoglobin 11.4, sodium 132, potassium 4.6. ASSESSMENT: 1. Acute right lower lobe pulmonary embolism with severe chest pain. 2. Chronic obstructive pulmonary disease acute exacerbation with acute purulent tracheobronchitis. 3. Hyponatremia. 4. Mild hyperkalemia. 5. Increased WBC. 6. Anemia of chronic disease. Increased disease. 7. Increased platelets. 8. History of chronic obstructive pulmonary disease. 9. History of cerebrovascular accident, transient ischemic attack. 10.History of deep vein thrombosis. 11.Hypertension. 12.History of myocardial infarction. 13.History of pneumonia. 14.History of pulmonary embolism. 15.Heparin monitoring. 16.History of chronic right upper lobe consolidation, thought to be secondary to fungal Aspergillus fumigatus. 17.Chronic hypoxic respiratory failure, oxygen 2 L nasal cannula. 18.History of shingles. 19.History of basal ganglia hemorrhage and right arm weakness 2014. 20.History of right frozen shoulder. 21.History of chronic chest pain and chronic pain syndrome. 22.Anxiety/depression/panic disorder. 23.History of nicotine dependence. 24.FULL CODE. RECOMMENDATIONS AND DISCUSSION: Recommend to continue current medications, continue to monitor, symptomatic treatment. Otherwise, at this time, I recommend continue with bronchodilators. Continue with IV heparin. Closely follow with Dr. Vogt. Guarded prognosis because of multiple complex medical issues. Further recommendations to follow. MMODL / IJN: [id number] /
[2019-11-29 20:42] LABS: Glucose,Whole Blood 153 mg/dL (75-99)
[2019-11-29] MEDS: MELATONIN 5 MG TABLET PO SCH (21:13)
[2019-11-29] MEDS: MONTELUKAST 10 MG TAB PO SCH (21:14)
[2019-11-29] MEDS: METHOCARBAMOL 750 MG TAB PO SCH (21:55)
[2019-11-30] MEDS: methylPREDNISolone SOD SUCCI 40 MG/ML 1 ML VIAL IV SCH ×5 (00:07→23:50)
[2019-11-30] MEDS: HYDROmorphone 0.5 MG/0.5 ML SYRINGE IVP PRN ×7 (00:08→23:50)
[2019-11-30] MEDS: IPRATROPIUM-ALBUTEROL 3 ML NEB INHALATION PRN ×3 (00:13→23:05)
[2019-11-30] MEDS: IPRATROPIUM-ALBUTEROL 3 ML NEB INHALATION SCH ×4 (07:08→19:36)
[2019-11-30] MEDS: SYMBICORT 160-4.5 MCG INHALER INHALATION SCH ×2 (07:08→19:35)
[2019-11-30 07:19] LABS: Glucose,Whole Blood 142 mg/dL (75-99)
[2019-11-30 08:02] LABS: African American GFR (CKD) >90 (>60 ml/min/1.73 sqM); Anion Gap 3 mmol/L; Blood Urea Nitrogen 22 mg/dL (9-20); Calcium 8.8 mg/dL (8.4-10.2); Carbon Dioxide 30 mmol/L (22-30); Chloride 100 mmol/L (98-107); Glucose 132 mg/dL (74-99); Non-African American GFR(CKD) >90 (>60 ml/min/1.73 sqM); Potassium 4.2 mmol/L (3.5-5.1); Sodium 133 mmol/L (137-145)
[2019-11-30 08:06] LABS: Basophils % (A) 0 %; Eosinophils % (A) 0 %; HCT 34.3 % (39.0-53.0); HGB 10.9 gm/dL (13.0-17.5); Lymphocytes # (A) 0.6 k/uL (1.0-4.8); Lymphocytes % (A) 3 %; MCH 31.3 pg (25.0-35.0); MCHC 31.7 g/dL (31.0-37.0); MCV 98.9 fL (80.0-100.0); Mean Platelet Volume 7.5; Monocytes # (A) 0.7 k/uL (0-1.0); Monocytes % (A) 4 %; Neutrophils # (A) 18.3 k/uL (1.3-7.7); Neutrophils % (A) 92 %; Platelet Count 405 k/uL (150-450); RBC 3.46 m/uL (4.30-5.90); RDW 14.2 % (11.5-15.5); WBC 19.8 k/uL (3.8-10.6)
[2019-11-30] MEDS: INSULIN ASPART (NovoLOG) 100 UNIT/ML VIAL SQ SCH ×4 (08:39→20:45)
[2019-11-30] MEDS: HEPARIN SOD,PORK IN 0.45% NACL 25,000 UNIT in 0.45% NACL 1 250ML.BAG IV SCH ×2 (08:39→23:56)
[2019-11-30] MEDS: PANTOPRAZOLE 40 MG TABLET PO SCH (08:41)
[2019-11-30] MEDS: ASPIRIN 81 MG PO SCH (08:41)
[2019-11-30] MEDS: ESCITALOPRAM 10 MG TAB PO SCH (08:41)
[2019-11-30] MEDS: GABAPENTIN 400 MG CAP PO SCH ×3 (08:41→22:29)
[2019-11-30] MEDS: ATORVASTATIN 10 MG TAB PO SCH (08:42)
[2019-11-30] MEDS: NICOTINE 14MG/24HR PATCH TRANSDERM SCH (08:42)
[2019-11-30] MEDS: METOPROLOL TARTRATE 25 MG TAB PO SCH ×2 (08:42→20:47)
[2019-11-30] MEDS: MECLIZINE 12.5 MG TAB PO SCH ×2 (08:42→20:47)
[2019-11-30] MEDS: FOLIC ACID 1 MG TAB PO SCH (08:42)
[2019-11-30] MEDS: amLODIPine 10 MG TAB PO SCH (08:42)
[2019-11-30] MEDS: LEVOFLOXACIN 500MG-D5W PMX 500 MG in DEXTROSE/WATER 1 100ML.BAG IVPB SCH (11:32)
[2019-11-30 11:42] LABS: Glucose,Whole Blood 145 mg/dL (75-99)
--- NOTE | 2019-11-30 12:45 | P.PN ---
Subjective Progress Note Date: 11/30/19 This is a 59-year-old male patient is well-known to us. The patient is known to have advanced COPD. He is a chronic smoker. He also has a previous history of fungal pneumonia related to an Aspergillus infection of the right upper lobe from which she recovered. Has hypertension, previous history of DVT and pulmonary embolism with an onset atrial fibrillation with Eliquis. He has had previous CVA. The patient came into the hospital because of worsening shortness of breath. He has had multiple hospitalizations in the past. His most recent bronchoscopy that was done on 09/17/2019 showed Larissa and mckinley bacterium species. This patient was hospitalized for the same. The CAT scan of the chest that was done at a time of admission showed acute pulmonary embolism involving the right lower lobe pulmonary artery. There was also increasing in size and the nodules in the right upper lobe and the left posterior lung suspicious for malignancy. He was also known to have advanced emphysema. He has cholelithiasis. The patient was seen in consultation. CHF angiogram was reviewed. He is on Eliquis for now. He is on 3 L of oxygen by nasal cannula and is hemodynamically stable. Is on Symbicort as maintenance and one of the right treatment [id number]. He was placed back on IV heparin. He is on IV Solu Medrol 40 mg every 6 hours. He is also on empiric antibiotic coverage with Levaquin 5 mg by mouth daily. Renal function is stable with a creatinine of 0.55. Objective - Vital Signs Vital signs: Vital Signs Temp 97.7 F 11/30/19 04:30 Pulse 84 11/30/19 10:59 Resp 20 11/30/19 04:30 BP 147/81 11/30/19 04:30 Pulse Ox 96 11/30/19 04:30 Intake & Output 11/29/19 11/30/19 11/30/19 18:59 06:59 18:59 Intake Total 667.528 400 778.271 Output Total 800 Balance -132.472 400 778.271 Intake: Intake, IV Titration 307.528 178.271 Amount Heparin Sod,Pork in 0.45% 307.528 178.271 NaCl 25,000 unit In 0.45 % NaCl 1 250ml.bag @ 18 UNITS/KG/HR 12.9 mls/hr IV .[id number] LAMAR Rx#: [id number] Oral 360 400 600 Output: Urine 800 Other: Voiding Method Urinal Urinal # Voids 1 2 # Bowel Movements 1 - Exam GENERAL EXAM: Alert, 59-year-old male patient, on 2 L of oxygen with a pulse ox of 100% comfortable in no apparent distress. HEAD: Normocephalic/atraumatic. EYES: Normal reaction of pupils, in the left eye, patient has a prosthetic right eye. Conjunctiva pink, sclera white. NOSE: Clear with pink turbinates. THROAT: No erythema or exudates. NECK: No masses, no JVD, no thyroid enlargement, no adenopathy. CHEST: No chest wall deformity. Symmetrical expansion. LUNGS: Equal air entry with end expiratory wheeze, diminished CVS: Regular rate and rhythm, normal S1 and S2, no gallops, no murmurs, no rubs ABDOMEN: Soft, nontender. No hepatosplenomegaly, normal bowel sounds, no guarding or rigidity. EXTREMITIES: No clubbing, no edema, no cyanosis, 2+ pulses and upper and lower extremities. Left arm is in a sling MUSCULOSKELETAL: Muscle strength and tone normal. SPINE: No scoliosis or deformity. SKIN: No rashes no wounds CENTRAL NERVOUS SYSTEM: No focal deficits, tone is normal in all 4 extremities. PSYCHIATRIC: Alert and oriented -3. Appropriate affect. Intact judgment and insigh - Labs CBC & Chem 7: 11/30/19 06:19 11/30/19 06:19 Labs: Abnormal Lab Results - Last 24 Hours (Table) 11/29/19 11/29/19 11/29/19 Range/Units 16:23 16:31 20:40 WBC (3.8-10.6) k/uL RBC (4.30-5.90) m/uL Hgb (13.0-17.5) gm/dL Hct (39.0-53.0) % Neutrophils # (1.3-7.7) k/uL Lymphocytes # (1.0-4.8) k/uL APTT 60.6 H (22.0-30.0) sec Sodium (137-145) mmol/L BUN (9-20) mg/dL Creatinine (0.66-1.25) mg/dL Glucose (74-99) mg/dL POC Glucose (mg/dL) 171 H 153 H (75-99) mg/dL 11/30/19 11/30/19 11/30/19 Range/Units 06:19 06:19 06:19 WBC 19.8 H (3.8-10.6) k/uL RBC 3.46 L (4.30-5.90) m/uL Hgb 10.9 L (13.0-17.5) gm/dL Hct 34.3 L (39.0-53.0) % Neutrophils # 18.3 H (1.3-7.7) k/uL Lymphocytes # 0.6 L (1.0-4.8) k/uL APTT 51.3 H (22.0-30.0) sec Sodium 133 L (137-145) mmol/L BUN 22 H (9-20) mg/dL Creatinine 0.55 L (0.66-1.25) mg/dL Glucose 132 H (74-99) mg/dL POC Glucose (mg/dL) (75-99) mg/dL 11/30/19 11/30/19 Range/Units 07:17 11:40 WBC (3.8-10.6) k/uL RBC (4.30-5.90) m/uL Hgb (13.0-17.5) gm/dL Hct (39.0-53.0) % Neutrophils # (1.3-7.7) k/uL Lymphocytes # (1.0-4.8) k/uL APTT (22.0-30.0) sec Sodium (137-145) mmol/L BUN (9-20) mg/dL Creatinine (0.66-1.25) mg/dL Glucose (74-99) mg/dL POC Glucose (mg/dL) 142 H 145 H (75-99) mg/dL Assessment and Plan Plan: 1 Atypical chest pain in a patient found to normal EKG, negative troponin. CT angiogram with questionable acute pulmonary embolism in the right lower lobe compared to previous in October 2019. on Eliquis in the outpatient setting. I reviewed the CAT scan of the chest and also compared to the previous CAT scan from May 2019 and October 2019. Noted the CAT scan that was done in October [address] angiogram protocol. As for the comparison between May 2019 and the current CAT scan, I think the right lower lobe pulmonary artery embolism is a chronic finding new and I would not consider this to be a treatment failure as long as the patient continues to take his anticoagulation regular basis. As for the right upper lobe pulmonary nodule, this is a reminiscent scarring from a previous cavity for a fungus ball in the right upper lobe which is shrunken in size compared to May 2019 and there is no indication for malignancy. 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 No worse since 07/19/2019. 5 History of PE/DVT, anticoagulated with Eliquis. 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 We'll put the patient back on Eliquis after Doppler of the lower extremities negative and there is no objective evidence of any new clotting process. The clot in the right lower lobe area seems to be chronic. Keep the IV heparin and obtain a Doppler of the lower extremity No indication for malignancy. The lesion the right upper lobe is a residual scar from a previous cavity/fungus ball. It is obviously smaller compared to the CAT scan from May 2019. Continue bronchodilators. Continued IV Solu Medrol. We'll follow.
--- NOTE | 2019-11-30 13:32 | US ---
EXAMINATION TYPE: US venous doppler duplex LE DATE OF EXAM: 11/30/2019 1:25 PM COMPARISON: NONE CLINICAL HISTORY: PE. PE, history of DVT left leg, patient on blood thinner SIDE PERFORMED: bilateral TECHNIQUE: The lower extremity deep venous system is examined utilizing real time linear array sonog isrrael with graded compression, doppler sonography and color-flow sonography. VESSELS IMAGED: External Iliac Vein (EIV) Common Femoral Vein Deep Femoral Vein Greater Saphenous Vein * Femoral Vein Popliteal Vein Small Saphenous Vein * Proximal Calf Veins (* superficial vessels) Right Leg: No evidence of acute DVT Left Leg: No evidence of acute DVT IMPRESSION: 1. Bilateral lower extremity ultrasound negative for deep venous thrombosis.
[2019-11-30 16:51] LABS: Glucose,Whole Blood 166 mg/dL (75-99)
--- NOTE | 2019-11-30 18:55 | PN ---
PROGRESS NOTE DATE OF SERVICE: 11/30/2019 This 59-year-old gentleman admitted with multiple medical problems, including pulmonary embolism on the right side, also was complaining of severe chest pain. Patient is on IV heparin. No chest pain. No palpitations. No fever. The patient also has a history of noncompliance previously. PHYSICAL EXAMINATION: Alert and orient x3. Pulse 98, blood pressure 139/80, respirations 16, temperature 98.2, pulse ox 98% on 2 L. HEENT: Conjunctivae normal. NECK: No jugular venous distention. CARDIOVASCULAR SYSTEM: S1, S2 muffled. RESPIRATORY SYSTEM: Breath sounds diminished at the bases. Bilateral scattered rhonchi and crackles. ABDOMEN: Soft, non-tender. No mass palpable. LEGS: No edema. No swelling. NERVOUS SYSTEM: No focal deficit. LABS: WBC 19.8, hemoglobin 10.9. Sodium 133, potassium 4.2. ASSESSMENT: 1. Acute right lower pulmonary embolism with severe chest pain. 2. Chronic obstructive pulmonary disease, acute exacerbation, with acute purulent tracheobronchitis. 3. Hyponatremia. 4. Mild hyperkalemia. 5. Increased white count. 6. Anemia of chronic disease. 7. Increased platelets. 8. History of chronic obstructive pulmonary disease. 9. History of cerebrovascular accident, transient ischemic attack. 10.History of deep vein thrombosis. 11.Hypertension. 12.History of myocardial infarction. 13.History of pneumonia. 14.History of pulmonary embolism. 15.Heparin monitoring. 16.History of chronic right upper lobe scarring, possibly secondary to fungal Aspergillus fumigatus. 17.Chronic hypoxic respiratory failure, oxygen at 2 L nasal cannula. 18.History of shingles. 19.History of basal ganglia hemorrhage and right arm weakness in 2014. 20.History of right frozen shoulder. 21.History of chronic chest pain as well as chronic pain syndrome. 22.Anxiety, depression, panic disorder. 23.History of nicotine dependence. 24.FULL CODE. RECOMMENDATIONS AND DISCUSSION: I recommend to continue current medications, continue symptomatic treatment, continue with the IV heparin. Continue with the pain medication. Continue with the bronchodilators. Guarded prognosis because of multiple complex medical issues. Further recommendations to follow. MMODL / IJN: [id number] /
[2019-11-30 20:12] LABS: Glucose,Whole Blood 158 mg/dL (75-99)
--- NOTE | 2019-11-30 20:19 | PN ---
PROGRESS NOTE DATE OF SERVICE: 11/30/2019 This 59-year-old gentleman who was admitted with multiple medical problems, including chest pain, also had acute pulmonary embolism. The patient is on IV heparin. Dr. Garcia is following the patient closely. A venous Doppler was recommended also by Dr. Garcia. Venous Dopplers of the lower legs are negative for DVT. Patient is being closely monitored. Patient is on IV pain medication, IV heparin also. Past medical history reviewed. REVIEW OF SYSTEMS: CARDIOVASCULAR SYSTEM: No angina, palpitations. RESPIRATORY SYSTEM: As mentioned earlier. GI: No nausea, vomiting. : No dysuria or retention. NERVOUS SYSTEM: No numbness, weakness. CURRENT MEDICATIONS: Reviewed. They include: 1. Tylenol. 2. DuoNeb. 3. Xanax. 4. Norvasc. 5. Aspirin. 6. Lipitor. 7. Symbicort. 8. Lexapro. 9. Folic acid. 10.Neurontin. 11.Heparin. 12.Dilaudid. 13.NovoLog. 14.Levaquin. 15.Antivert. 16.Melatonin. 17.Robaxin. 18.Solu-Medrol. 19.Lopressor. 20.Singulair. 21.Habitrol. 22.Protonix. Doses are reviewed. PHYSICAL EXAMINATION: Patient is alert and oriented x3. Pulse 98, blood pressure 139/80, respiration 16, temperature 98.3, pulse ox 98% on 2 L. HEENT: Conjunctivae normal. NECK: No jugular venous distention. CARDIOVASCULAR SYSTEM: S1, S2 muffled. RESPIRATORY SYSTEM: Breath sounds diminished at the bases. Scattered rhonchi and crackles. ABDOMEN: Soft, non-tender. LEGS: No edema. No swelling. NERVOUS SYSTEM: No focal deficit. LAB STUDIES: WBC 19.8, hemoglobin 10.9. Sodium 133. ASSESSMENT: 1. Acute right lower lobe pulmonary embolism with severe chest pain. 2. Chronic obstructive pulmonary disease, acute exacerbation, with acute purulent tracheobronchitis. 3. Hyponatremia. 4. Mild hyperkalemia. 5. Increased white count. 6. Anemia of chronic disease. 7. Increased platelets. 9. History of cerebrovascular accident, transient ischemic attack. 10.History of deep vein thrombosis. 11.Hypertension. 12.History of myocardial infarction. 13.History of pneumonia. 14.History of pulmonary embolus. 15.Heparin monitoring. 16.History of chronic right upper lobe scarring secondary to fungal Aspergillus fumigatus. 17.Chronic hypoxic respiratory failure. Oxygen 2 L nasal cannula. 18.History of shingles. 19.History of basal ganglia hemorrhage and right arm weakness in 2015. 20.History of right frozen shoulder. 21.History of chronic chest pain and chronic pain syndrome. 22.Anxiety, depression, panic disorder. 23.History of nicotine dependence. 24.FULL CODE. RECOMMENDATIONS AND DISCUSSION: I recommend to continue current medications, continue with symptomatic treatment. Continue with the bronchodilators. Continue with IV steroids. Continue with pain medications. Continue with IV heparin. Dr. Garcia's input appreciated. Ultrasound is negative for the legs. Guarded prognosis. Further recommendations to follow. MMODL / HANSAN: [id number] / MTDD
[2019-11-30] MEDS: MELATONIN 5 MG TABLET PO SCH (20:47)
[2019-11-30] MEDS: MONTELUKAST 10 MG TAB PO SCH (20:47)
[2019-11-30] MEDS: METHOCARBAMOL 750 MG TAB PO SCH (20:48)
[2019-12-01] MEDS: IPRATROPIUM-ALBUTEROL 3 ML NEB INHALATION PRN (03:11)
[2019-12-01] MEDS: HYDROmorphone 0.5 MG/0.5 ML SYRINGE IVP PRN ×3 (04:08→12:32)
[2019-12-01] MEDS: methylPREDNISolone SOD SUCCI 40 MG/ML 1 ML VIAL IV SCH ×2 (05:21→12:33)
[2019-12-01 06:30] VITALS: BP 152/89; RESP 18; TEMP 98.2
[2019-12-01 07:24] LABS: Glucose,Whole Blood 134 mg/dL (75-99)
[2019-12-01 07:39] LABS: Basophils % (A) 0 %; Eosinophils % (A) 0 %; HCT 32.9 % (39.0-53.0); HGB 10.6 gm/dL (13.0-17.5); Lymphocytes # (A) 0.6 k/uL (1.0-4.8); Lymphocytes % (A) 3 %; MCH 31.5 pg (25.0-35.0); MCHC 32.1 g/dL (31.0-37.0); MCV 98.2 fL (80.0-100.0); Mean Platelet Volume 6.7; Monocytes # (A) 0.7 k/uL (0-1.0); Monocytes % (A) 4 %; Neutrophils # (A) 16.8 k/uL (1.3-7.7); Neutrophils % (A) 92 %; Platelet Count 433 k/uL (150-450); RBC 3.35 m/uL (4.30-5.90); RDW 14.1 % (11.5-15.5); WBC 18.3 k/uL (3.8-10.6)
[2019-12-01] MEDS: SYMBICORT 160-4.5 MCG INHALER INHALATION SCH (07:49)
[2019-12-01] MEDS: IPRATROPIUM-ALBUTEROL 3 ML NEB INHALATION SCH ×2 (07:49→11:12)
[2019-12-01] MEDS: NICOTINE 14MG/24HR PATCH TRANSDERM SCH (08:05)
[2019-12-01] MEDS: amLODIPine 10 MG TAB PO SCH (08:05)
[2019-12-01] MEDS: FOLIC ACID 1 MG TAB PO SCH (08:06)
[2019-12-01] MEDS: METOPROLOL TARTRATE 25 MG TAB PO SCH (08:06)
[2019-12-01] MEDS: PANTOPRAZOLE 40 MG TABLET PO SCH (08:06)
[2019-12-01] MEDS: INSULIN ASPART (NovoLOG) 100 UNIT/ML VIAL SQ SCH ×2 (08:06→12:32)
[2019-12-01] MEDS: ASPIRIN 81 MG PO SCH (08:06)
[2019-12-01] MEDS: ESCITALOPRAM 10 MG TAB PO SCH (08:06)
[2019-12-01] MEDS: ATORVASTATIN 10 MG TAB PO SCH (08:06)
[2019-12-01] MEDS: MECLIZINE 12.5 MG TAB PO SCH (08:07)
[2019-12-01] MEDS: GABAPENTIN 400 MG CAP PO SCH ×2 (08:11→14:44)
[2019-12-01 08:14] LABS: African American GFR (CKD) >90 (>60 ml/min/1.73 sqM); Anion Gap 3 mmol/L; Blood Urea Nitrogen 20 mg/dL (9-20); Calcium 8.7 mg/dL (8.4-10.2); Carbon Dioxide 33 mmol/L (22-30); Chloride 100 mmol/L (98-107); Glucose 120 mg/dL (74-99); Non-African American GFR(CKD) >90 (>60 ml/min/1.73 sqM); Sodium 136 mmol/L (137-145)
[2019-12-01] MEDS ORDERED: APIXABAN 5 MG TAB PO SCH (10:15)
[2019-12-01 11:24] VITALS: PULSE 80
[2019-12-01 11:57] LABS: Glucose,Whole Blood 146 mg/dL (75-99)
--- NOTE | 2019-12-01 12:03 | P.PN ---
Subjective Progress Note Date: 12/01/19 This is a 59-year-old male patient is well-known to us. The patient is known to have advanced COPD. He is a chronic smoker. He also has a previous history of fungal pneumonia related to an Aspergillus infection of the right upper lobe from which she recovered. Has hypertension, previous history of DVT and pulmonary embolism with an onset atrial fibrillation with Eliquis. He has had previous CVA. The patient came into the hospital because of worsening shortness of breath. He has had multiple hospitalizations in the past. His most recent bronchoscopy that was done on 09/17/2019 showed Larissa and mckinley bacterium species. This patient was hospitalized for the same. The CAT scan of the chest that was done at a time of admission showed acute pulmonary embolism involving the right lower lobe pulmonary artery. There was also increasing in size and the nodules in the right upper lobe and the left posterior lung suspicious for malignancy. He was also known to have advanced emphysema. He has cholelithiasis. The patient was seen in consultation. CHF angiogram was reviewed. He is on Eliquis for now. He is on 3 L of oxygen by nasal cannula and is hemodynamically stable. Is on Symbicort as maintenance and one of the right treatment [id number]. He was placed back on IV heparin. He is on IV Solu Medrol 40 mg every 6 hours. He is also on empiric antibiotic coverage with Levaquin 5 mg by mouth daily. Renal function is stable with a creatinine of 0.55. On 12/01/2019 patient seen in follow-up on general medical floor, his calm and comfortable, he is resting in bed, currently on 3 L of oxygen his pulse ox is 98%, hemodynamically stable, afebrile. Denies any chest pain, his CT angiogram showed questionable acute pulmonary embolism in the right lower lobe compared previous CTA from October 2019. Patient has been maintained on Eliquis seen in the outpatient setting. We think that right lower lobe pulmonary artery embolism is a chronic finding, patient denies noncompliance E with his Eliquis. He denies any hemoptysis, lower extremity Dopplers were negative for DVTs. Patient is currently on heparin drip per weight-based protocol for possibility of acute on chronic pulmonary embolism. Hemodynamically he has been stable, and we can switch him back to his home dose Eliquis today Objective - Vital Signs Vital signs: Vital Signs Temp 98.2 F 12/01/19 06:00 Pulse 80 12/01/19 11:24 Resp 18 12/01/19 06:00 BP 152/89 12/01/19 06:00 Pulse Ox 98 12/01/19 06:00 Intake & Output 11/30/19 12/01/19 12/01/19 18:59 06:59 18:59 Intake Total 2299.967 8551.445 490 Output Total 600 300 Balance 8293.989 5300.445 190 Intake: Intake, IV Titration 178.271 131.445 Amount Heparin Sod,Pork in 0.45% 178.271 131.445 NaCl 25,000 unit In 0.45 % NaCl 1 250ml.bag @ 18 UNITS/KG/HR 12.9 mls/hr IV .[id number] L[facility]AR Rx#: [id number] Oral 1200 1500 490 Output: Urine 600 300 Other: Voiding Method Urinal Urinal Urinal # Voids 3 2 - Exam GENERAL EXAM: Alert, 59-year-old male patient, on 3 L of oxygen with a pulse ox of 100% comfortable in no apparent distress. HEAD: Normocephalic/atraumatic. EYES: Normal reaction of pupils, in the left eye, patient has a prosthetic right eye. Conjunctiva pink, sclera white. NOSE: Clear with pink turbinates. THROAT: No erythema or exudates. NECK: No masses, no JVD, no thyroid enlargement, no adenopathy. CHEST: No chest wall deformity. Symmetrical expansion. LUNGS: Equal air entry with end expiratory wheeze, diminished CVS: Regular rate and rhythm, normal S1 and S2, no gallops, no murmurs, no rubs ABDOMEN: Soft, nontender. No hepatosplenomegaly, normal bowel sounds, no guarding or rigidity. EXTREMITIES: No clubbing, no edema, no cyanosis, 2+ pulses and upper and lower extremities. Left arm is in a sling MUSCULOSKELETAL: Muscle strength and tone normal. SPINE: No scoliosis or deformity. SKIN: No rashes no wounds CENTRAL NERVOUS SYSTEM: No focal deficits, tone is normal in all 4 extremities. PSYCHIATRIC: Alert and oriented -3. Appropriate affect. Intact judgment and insigh - Labs CBC & Chem 7: 12/01/19 06:53 12/01/19 06:53 Labs: Abnormal Lab Results - Last 24 Hours (Table) 11/30/19 11/30/19 12/01/19 Range/Units 16:50 20:06 06:53 WBC 18.3 H (3.8-10.6) k/uL RBC 3.35 L (4.30-5.90) m/uL Hgb 10.6 L (13.0-17.5) gm/dL Hct 32.9 L (39.0-53.0) % Neutrophils # 16.8 H (1.3-7.7) k/uL Lymphocytes # 0.6 L (1.0-4.8) k/uL APTT (22.0-30.0) sec Sodium (137-145) mmol/L Carbon Dioxide (22-30) mmol/L Creatinine (0.66-1.25) mg/dL Glucose (74-99) mg/dL POC Glucose (mg/dL) 166 H 158 H (75-99) mg/dL 12/01/19 12/01/19 12/01/19 Range/Units 06:53 06:53 07:23 WBC (3.8-10.6) k/uL RBC (4.30-5.90) m/uL Hgb (13.0-17.5) gm/dL Hct (39.0-53.0) % Neutrophils # (1.3-7.7) k/uL Lymphocytes # (1.0-4.8) k/uL APTT 45.7 H (22.0-30.0) sec Sodium 136 L (137-145) mmol/L Carbon Dioxide 33 H (22-30) mmol/L Creatinine 0.49 L (0.66-1.25) mg/dL Glucose 120 H (74-99) mg/dL POC Glucose (mg/dL) 134 H (75-99) mg/dL 12/01/19 Range/Units 11:55 WBC (3.8-10.6) k/uL RBC (4.30-5.90) m/uL Hgb (13.0-17.5) gm/dL Hct (39.0-53.0) % Neutrophils # (1.3-7.7) k/uL Lymphocytes # (1.0-4.8) k/uL APTT (22.0-30.0) sec Sodium (137-145) mmol/L Carbon Dioxide (22-30) mmol/L Creatinine (0.66-1.25) mg/dL Glucose (74-99) mg/dL POC Glucose (mg/dL) 146 H (75-99) mg/dL Assessment and Plan Plan: Assessment: 1 Atypical chest pain in a patient found to normal EKG, negative troponin. CT angiogram with questionable acute pulmonary embolism in the right lower lobe compared to previous in October 2019. on Eliquis in the outpatient setting. I reviewed the CAT scan of the chest and also compared to the previous CAT scan from May 2019 and October 2019. Noted the CAT scan that was done in October [address] angiogram protocol. As for the comparison between May 2019 and the current CAT scan, I think the right lower lobe pulmonary artery embolism is a chronic finding new and I would not consider this to be a treatment failure as long as the patient continues to take his anticoagulation regular basis. As for the right upper lobe pulmonary nodule, this is a reminiscent scarring from a previous cavity for a fungus ball in the right upper lobe which is shrunken in size compared to May 2019 and there is no indication for malignancy. 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 No worse since 07/19/2019. 5 History of PE/DVT, anticoagulated with Eliquis. 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 Lower extremity Dopplers were negative for DVT. Hemodynamically patient remains stable. Continue nebulized bronchodilators, continue steroids, will continue to follow I performed a history & physical examination of the patient and discussed their management with my nurse practitioner, Jeane Hwang. I reviewed the nurse practitioner's note and agree with the documented findings and plan of care. Lung sounds are positive for diminished breath sounds, The findings and the impression was discussed with the patient. I attest to the documentation by the nurse practitioner. Time with Patient: Less than 30
--- NOTE | 2019-12-01 12:43 | P.DS ---
Providers Date of admission: 11/27/19 18:29 Expected date of discharge: 12/01/19 Attending physician: Tricia Cano Consults: 11/27/19 18:33 Consult Physician Urgent Consulting Provider: Isis Vogt Consult Reason/Comments: dyspnea, PE, lung nodules Do you want consulting provider notified?: Yes Primary care physician: [facility] Course: Final diagnosis Acute right lower lobe pulmonary embolism with severe chest pain Chronic obstructive pulmonary disease, acute exacerbation, with acute purulent tracheobronchitis Hyponatremia Mild hyperkalemia Increased white blood count Anemia of chronic disease Increased platelets History of CVA, TIA History of deep vein thrombosis Hypertension history of myocardial infarction History of pneumonia History of pulmonary embolism Heparin monitoring 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 Patient will follow-up with Dr. Carrasco upon discharge along with Dr. Garcia in the outpatient setting in 2-3 weeks. Patient continue with a short course of oral antibiotics in the form of Levaquin once daily for the next 5 days and then may discontinue. Patient will also continue on a prednisone taper. Total time taken is greater than 35 minutes. History of present illness This is a 59-year-old male who was recently admitted with chest pain and also had acute pulmonary embolism and was being closely monitored. Patient was initiated on a heparin drip and reinitiated on his Eliquis. Patient was seen and followed by pulmonary recommending to continue with anticoagulation and will follow-up with Dr. Garcia in the outpatient setting in 3 weeks. Patient to continue with prednisone taper along with a short course of oral antibiotics in the form of Levaquin for the next 5 days and then may discontinue. Patient to continue with breathing inhalational treatments along with inhalers. During hospitalization patient also had venous Dopplers of the lower extremities done bilaterally showing negative for DVTs. Patient also had some mild hyponatremia and this morning's lab showing sodium level at 136 along with a potassium of 4.0 and current creatinine 0.49. Patient's hemoglobin this morning is 10.6. Patient continues to be weak and has a history of frequent falls and will be goi ng to COUNTS INCLUDE 234 BEDS AT THE [facility] for continued PT/OT therapy. Currently no reports of chest pain, worsening shortness of breath, or palpitations. Patient is afebrile. No reports of nausea or vomiting and patient is tolerating diet. Patient instructed to continue checking blood sugars before meals at bedtime and treat accordingly with sliding scale. Patient will be discharged today to [facility]. Guarded prognosis. On exam vital signs are stable. Temp is 98.2F, pulse is 80, respirations are 18, blood pressure is 152/79, oxygen saturation is 98% on 3 L via nasal cannula. Patient is O2 dependent at 2-3 L in the outpatient setting. Cardio S1, S2 are muffled. Respiratory system shows diminished breath sounds at the bases with a few scattered rhonchi and some mild expiratory wheezing noted. Abdomen is soft, obese, nontender. Nervous system shows mild diffuse weakness. Please refer to medication reconciliation sheet for a list of medications. Patient Condition at Discharge: Stable Plan - Discharge Summary New Discharge Prescriptions: New Ipratropium-Albuterol Nebulize [Duoneb 0.5 mg-3 mg/3 ml Soln] 3 ml INHALATION RT-Q4H PRN ml PRN Reason: Shortness Of Breath Or Wheezing Levofloxacin [Levaquin] 500 mg PO Q24H 5 Days #5 tab INSULIN ASPART (NovoLOG) [NovoLOG (formulary)] 0 unit SQ ACHS vial predniSONE 10 mg PO DIRECTED #30 tab Methocarbamol [Robaxin] 750 mg PO HS #2 tab Continue amLODIPine [Norvasc] 10 mg PO DAILY Escitalopram [Lexapro] 10 mg PO DAILY #15 tab Ipratropium-Albuterol Nebulize [Duoneb 0.5 mg-3 mg/3 ml Soln] 3 ml INHALATION RT-QID Melatonin 10 mg PO HS Metoprolol Tartrate [Lopressor] 25 mg PO BID #60 tab Acetaminophen Tab [Tylenol] 500 - 1,000 mg PO Q8H PRN PRN Reason: Pain Meclizine [Antivert] 12.5 mg PO Q12H Pantoprazole Sodium [Protonix] 40 mg PO DAILY Folic Acid 1 mg PO DAILY Aspirin EC [Ecotrin Low Dose] 81 mg PO DAILY Nicotine 14Mg/24Hr Patch [Habitrol] 1 patch TRANSDERM DAILY patch Atorvastatin [Lipitor] 10 mg PO DAILY tab Montelukast [Singulair] 10 mg PO HS tab Budesonide-Formot 160-4.5 Mcg [Symbicort 160-4.5 Mcg Inhaler] 2 puff INHALATION BID #1 inhaler Apixaban [Eliquis] 5 mg PO Q12H #60 tab Gabapentin 800 mg PO TID #3 tab ALPRAZolam [Xanax] 0.25 mg PO BID PRN #3 tab PRN Reason: Anxiety Discontinued Methocarbamol [Robaxin-750] 750 mg PO HS predniSONE See Taper PO DIRECTED Discharge Medication List amLODIPine [Norvasc] 10 mg PO DAILY 04/29/19 [History] Escitalopram [Lexapro] 10 mg PO DAILY #15 tab 05/15/19 [Rx] Ipratropium-Albuterol Nebulize [Duoneb 0.5 mg-3 mg/3 ml Soln] 3 ml INHALATION RT-QID 06/13/19 [History] Melatonin 10 mg PO HS 08/12/19 [History] Metoprolol Tartrate [Lopressor] 25 mg PO BID #60 tab 09/30/19 [Rx] Acetaminophen Tab [Tylenol] 500 - 1,000 mg PO Q8H PRN 10/20/19 [History] Aspirin EC [Ecotrin Low Dose] 81 mg PO DAILY 10/20/19 [History] Folic Acid 1 mg PO DAILY 10/20/19 [History] Meclizine [Antivert] 12.5 mg PO Q12H 10/20/19 [History] Pantoprazole Sodium [Protonix] 40 mg PO DAILY 10/20/19 [History] Atorvastatin [Lipitor] 10 mg PO DAILY tab 10/23/19 [Rx] Budesonide-Formot 160-4.5 Mcg [Symbicort 160-4.5 Mcg Inhaler] 2 puff INHALATION BID #1 inhaler 10/23/19 [Rx] Montelukast [Singulair] 10 mg PO HS tab 10/23/19 [Rx] Nicotine 14Mg/24Hr Patch [Habitrol] 1 patch TRANSDERM DAILY patch 10/23/19 [Rx] Apixaban [Eliquis] 5 mg PO Q12H #60 tab 11/08/19 [Rx] ALPRAZolam [Xanax] 0.25 mg PO BID PRN #3 tab 12/01/19 [Rx] Gabapentin 800 mg PO TID #3 tab 12/01/19 [Rx] INSULIN ASPART (NovoLOG) [NovoLOG (formulary)] 0 unit SQ ACHS vial 12/01/19 [Rx] Ipratropium-Albuterol Nebulize [Duoneb 0.5 mg-3 mg/3 ml Soln] 3 ml INHALATION RT-Q4H PRN ml 12/01/19 [Rx] Levofloxacin [Levaquin] 500 mg PO Q24H 5 Days #5 tab 12/01/19 [Rx] Methocarbamol [Robaxin] 750 mg PO HS #2 tab 12/01/19 [Rx] predniSONE 10 mg PO DIRECTED #30 tab 12/01/19 [Rx] Follow up Appointment(s)/Referral(s): Urszula Carrasco MD [Primary Care Provider] - 1-2 days Willie Garcia MD [STAFF PHYSICIAN] - 3 Weeks Activity/Diet/Wound Care/Special Instructions: Patient is going to [facility] Continue with antibiotics for 5 days and then discontinue Continue to monitor blood sugar before meals at bedtime and treat accordingly with sliding scale Follow-up with primary care provider upon discharge Follow-up with pulmonary in the outpatient setting in 3 weeks Continue current diet Discharge Disposition: TRANSFER TO SNF/ECF
[2019-12-01] MEDS ORDERED: LEVOFLOXACIN 500 MG TAB PO SCH (15:00)
== END 2019-12-01 15:28 | disposition home health service (06) | DRG 176 ==
LOC: EC 15:37 → 3SCARD 18:29 → 6NMEDSUR 11-29 15:26
PROVIDERS: ADMIT Hospitalist; ATTEND Hospitalist
DX: I26.99 Other pulmonary embolism without acute cor pulmonale (principal); J96.11 Chronic respiratory failure with hypoxia; E87.1 Hypo-osmolality and hyponatremia; M87.9 Osteonecrosis, unspecified; K21.9 Gastro-esophageal reflux disease without esophagitis; J43.9 Emphysema, unspecified; I10 Essential (primary) hypertension; G89.4 Chronic pain syndrome; F17.200 Nicotine dependence, unspecified, uncomplicated; F32.9 Major depressive disorder, single episode, unspecified; E66.9 Obesity, unspecified; D63.8 Anemia in other chronic diseases classified elsewhere; I48.91 Unspecified atrial fibrillation; K80.20 Calculus of gallbladder without cholecystitis without obstruction; J20.9 Acute bronchitis, unspecified; E11.9 Type 2 diabetes mellitus without complications; F41.0 Panic disorder [episodic paroxysmal anxiety]; E87.5 Hyperkalemia; B02.9 Zoster without complications; Z79.01 Long term (current) use of anticoagulants; Z79.51 Long term (current) use of inhaled steroids; Z79.82 Long term (current) use of aspirin; Z79.899 Other long term (current) drug therapy; Z91.018 Allergy to other foods; Z91.010 Allergy to peanuts; Z87.01 Personal history of pneumonia (recurrent); Z80.51 Family history of malignant neoplasm of kidney; Z80.8 Family history of malignant neoplasm of other organs or systems; Z82.5 Family history of asthma and other chronic lower respiratory diseases; Z86.19 Personal history of other infectious and parasitic diseases; Z86.711 Personal history of pulmonary embolism; Z86.718 Personal history of other venous thrombosis and embolism; Z86.73 Personal history of transient ischemic attack (TIA), and cerebral infarction without residual deficits; Z91.19 Patient's noncompliance with other medical treatment and regimen; Z91.81 History of falling; Z99.81 Dependence on supplemental oxygen; I25.2 Old myocardial infarction
CPT/HCPCS: 36415; 71046; 71275; 80048; 80053; 82728; 83605; 83615; 83735; 83880; 84145; 84484; 85025; 85379; 85610; 85730; 86140; 93005; 93970; 94640; 94760; 96365; 96366; 99291

== ENCOUNTER 2020-01-02 07:16 | Emergency (ER) | payer OTHER ==
[2020-01-02] MEDS ORDERED: LIDOCAINE 1%-EPI 1:100,000 20 ML VIAL SQ STA (07:26)
[2020-01-02 07:30] VITALS: BP 138/75; PULSE 99; RESP 20; TEMP 98.7
--- NOTE | 2020-01-02 07:41 | ED ---
General Adult HPI - General Stated complaint: Wound Time Seen by Provider: 01/02/20 07:25 Source: patient, EMS, RN notes reviewed Mode of arrival: EMS Limitations: no limitations - History of Present Illness Initial comments: 59-year-old male presents emergency Department chief complaint of wound recheck. Patient had sutures placed yesterday at [facility] fall on his left leg. He states he cut it on the edge of the vehicle. Patient's tetanus was updated at that time. Patient states he has some bleeding there remains a does admit that he is on Eliquis. Patient states area sore. Patient offers no new injuries. He felt that he possibly could've pulled a stitch out. - Related Data Home Medications Medication Instructions Recorded Confirmed amLODIPine [Norvasc] 10 mg PO DAILY 04/29/19 11/27/19 Ipratropium-Albuterol Nebulize 3 ml INHALATION RT-QID 06/13/19 11/27/19 [Duoneb 0.5 mg-3 mg/3 ml Soln] Melatonin 10 mg PO HS 08/12/19 11/27/19 Acetaminophen Tab [Tylenol] 500 - 1,000 mg PO Q8H PRN 10/20/19 11/27/19 Aspirin EC [Ecotrin Low Dose] 81 mg PO DAILY 10/20/19 11/27/19 Folic Acid 1 mg PO DAILY 10/20/19 11/27/19 Meclizine [Antivert] 12.5 mg PO Q12H 10/20/19 11/27/19 Pantoprazole Sodium [Protonix] 40 mg PO DAILY 10/20/19 11/27/19 Previous Rx's Medication Instructions Recorded Escitalopram [Lexapro] 10 mg PO DAILY #15 tab 05/15/19 Metoprolol Tartrate [Lopressor] 25 mg PO BID #60 tab 09/30/19 Atorvastatin [Lipitor] 10 mg PO DAILY tab 10/23/19 Budesonide-Formot 160-4.5 Mcg 2 puff INHALATION BID #1 inhaler 10/23/19 [Symbicort 160-4.5 Mcg Inhaler] Montelukast [Singulair] 10 mg PO HS tab 10/23/19 Nicotine 14Mg/24Hr Patch [Habitrol] 1 patch TRANSDERM DAILY patch 10/23/19 Apixaban [Eliquis] 5 mg PO Q12H #60 tab 11/08/19 ALPRAZolam [Xanax] 0.25 mg PO BID PRN #3 tab 12/01/19 Apixaban [Eliquis] 5 mg PO BID 30 Days #60 tab 12/01/19 Gabapentin 800 mg PO TID #3 tab 12/01/19 HYDROcodone/APAP 7.5-325MG [[place] 1 tab PO Q6HR PRN 3 Days #12 tab 12/01/19 7.5-325] INSULIN ASPART (NovoLOG) [NovoLOG 0 unit SQ ACHS vial 12/01/19 (formulary)] Ipratropium-Albuterol Nebulize 3 ml INHALATION RT-Q4H PRN ml 12/01/19 [Duoneb 0.5 mg-3 mg/3 ml Soln] Levofloxacin [Levaquin] 500 mg PO Q24H 5 Days #5 tab 12/01/19 Methocarbamol [Robaxin-750] 750 mg PO RT-HS #16 tablet 12/01/19 predniSONE 10 mg PO DIRECTED #30 tab 12/01/19 predniSONE 10 mg PO DIRECTED #30 tab 12/01/19 Allergies Allergy/AdvReac Type Severity Reaction Status Date / Time tree nut [Nut] Allergy Unknown Dyspnea, Verified 11/27/19 17:28 Rash/Hives peanut [Peanut Butter] AdvReac Dyspnea, Verified 11/27/19 17:28 Rash/Hives Review of Systems ROS Statement: Those systems with pertinent positive or pertinent negative responses have been documented in the HPI. ROS Other: All systems not noted in ROS Statement are negative. Past Medical History Past Medical History: Chest Pain / Angina, COPD, CVA/TIA, Deep Vein Thrombosis (DVT), Hypertension, Myocardial Infarction (GA), Pneumonia, Pulmonary Embolus (PE), Respiratory Disorder, Skin Disorder Additional Past Medical History / Comment(s): R upper lobe consolidation thought to be fungal/+asperigillus fumigatus, chronic hypoxic respiratory failure/ home O2 at 2L/NC ATC, past shingles 2016 which caused R eye blindness/pt states he presently has a rash/ reoccurrence of shingles at this time, 2014 CVA-basal ganglia hemorrhage with R arm weakness, R frozen shoulder, recent L shoulder injury and needs a sling (present sling fell apart) and will need surgical intervention, chronic chest pain since CVA when he also had rib fractures, pt unsure if he had a GA in the past or not. Last Myocardial Infarction Date:: unknown History of Any Multi-Drug Resistant Organisms: None Reported Past Surgical History: Orthopedic Surgery Additional Past Surgical History / Comment(s): metal plate left hand middle finger, right eye enucleation. Past Anesthesia/Blood Transfusion Reactions: No Reported Reaction Past Psychological History: Anxiety, Depression, Panic Disorder Smoking Status: Former smoker Past Alcohol Use History: Occasional Past Drug Use History: Marijuana - Past Family History Mother Family Medical History: Cancer Additional Family Medical History / Comment(s): Pt believes his Mom of Kidney Cancer Father Family Medical History: Cancer, COPD, Respiratory Disorder Additional Family Medical History / Comment(s): Melanoma General Exam Limitations: no limitations General appearance: alert, in no apparent distress Head exam: Present: atraumatic, normocephalic, normal inspection Respiratory exam: Present: wheezes, decreased breath sounds. Absent: normal lung sounds bilaterally, respiratory distress, rales, rhonchi, stridor Cardiovascular Exam: Present: regular rate, normal rhythm, normal heart sounds. Absent: systolic murmur, diastolic murmur, rubs, gallop, clicks Extremities exam: Present: other (Left lower extremity there is approximately 6 and wound with sutures there is a small area of venous ooze noted pulses of the lower extremity equal bilaterally there is no significant swelling patient has full sensation, full strength) Course Vital Signs 01/02/20 07:28 Temperature 98.7 F Pulse Rate 99 Respiratory 20 Rate Blood Pressure 138/75 O2 Sat by Pulse 98 Oximetry Procedures - Procedures Initial comment: There is a very small venous ooze noted to the left lower extremity, 1% lidocaine with epinephrine was used 2 injections in the local area bleeding has subsided, pressure dressing was applied. Medical Decision Making - Medical Decision Making 59-year-old male presented for wound recheck. He did have small amount of bleeding this was addressed, dressing was applied we discussed when to remove it and had to care for his leg. He is advised to have very close follow-up return Disposition Clinical Impression: Laceration of left lower extremity Disposition: HOME SELF-CARE Condition: Stable Instructions (If sedation given, give patient instructions): Laceration (ED) Additional Instructions: Please return to the Emergency Department if symptoms worsen or any other concerns. Is patient prescribed a controlled substance at d/c from ED?: No Referrals: Urszula Carrasco MD [Primary Care Provider] - 1-2 days Time of Disposition: 07:41
== END 2020-01-02 07:52 | disposition home or self-care (01) ==
LOC: EC 07:16
DX: S81.812A Laceration without foreign body, left lower leg, initial encounter (principal); I25.2 Old myocardial infarction; J44.9 Chronic obstructive pulmonary disease, unspecified; J96.10 Chronic respiratory failure, unspecified whether with hypoxia or hypercapnia; I10 Essential (primary) hypertension; Z79.82 Long term (current) use of aspirin; Z79.51 Long term (current) use of inhaled steroids; Z79.01 Long term (current) use of anticoagulants; Z87.891 Personal history of nicotine dependence; Z91.010 Allergy to peanuts; Z86.73 Personal history of transient ischemic attack (TIA), and cerebral infarction without residual deficits; Z86.718 Personal history of other venous thrombosis and embolism; Z86.711 Personal history of pulmonary embolism; Z99.81 Dependence on supplemental oxygen; Z98.890 Other specified postprocedural states; X58.XXXA Exposure to other specified factors, initial encounter
CPT/HCPCS: 99282

== ENCOUNTER 2020-01-02 17:32 | Inpatient (IN) | payer OTHER ==
[2020-01-02] MEDS ORDERED: methylPREDNISolone SOD SUCCI 125 MG/2 ML VIAL IV STA (17:45)
[2020-01-02] MEDS ORDERED: ALBUTEROL NEB (CONC) 2.5 MG/0.5 ML INHALATION STA (17:46)
[2020-01-02] MEDS ORDERED: IPRATROPIUM-ALBUTEROL 3 ML NEB INHALATION STA (17:46)
--- NOTE | 2020-01-02 18:27 | ED ---
SOB HPI <Ant Reyes - Last Filed: 01/02/20 20:05> - General Source: patient Mode of arrival: EMS Limitations: no limitations <Adriana Hernandez - Last Filed: 01/02/20 20:13> - General Chief Complaint: Shortness of Breath Stated Complaint: Diff Breathing Time Seen by Provider: 01/02/20 17:35 - History of Present Illness Initial Comments: 59-year-old male patient with past medical history significant for COPD and pulmonary embolism presents to the emergency department today for evaluation of shortness of breath. Patient states he started having increasing difficulty with breathing over the last few hours. States he did do 6 breathing treatments at home without relief. States that he does have a chronic cough denies sputum production. Denies any fever or chills. Denies any chest pain or pressure with this. Denies any increased leg swelling or pain. Does take Eliquis for history of PE. States he was diagnosed 2 months ago with the pulmonary embolism. Patient denies any recent rash, abdominal pain, nausea, vomiting, diarrhea, constipation, back pain, numbness, tingling, dizziness, weakness, hematuria, dysuria, urinary urgency, urinary frequency, headache, visual changes, or any other complaints. (Adriana Hernandez) - Related Data Home Medications Medication Instructions Recorded Confirmed amLODIPine [Norvasc] 10 mg PO DAILY 04/29/19 11/27/19 Ipratropium-Albuterol Nebulize 3 ml INHALATION RT-QID 06/13/19 11/27/19 [Duoneb 0.5 mg-3 mg/3 ml Soln] Melatonin 10 mg PO HS 08/12/19 11/27/19 Acetaminophen Tab [Tylenol] 500 - 1,000 mg PO Q8H PRN 10/20/19 11/27/19 Aspirin EC [Ecotrin Low Dose] 81 mg PO DAILY 10/20/19 11/27/19 Folic Acid 1 mg PO DAILY 10/20/19 11/27/19 Meclizine [Antivert] 12.5 mg PO Q12H 10/20/19 11/27/19 Pantoprazole Sodium [Protonix] 40 mg PO DAILY 10/20/19 11/27/19 Previous Rx's Medication Instructions Recorded Escitalopram [Lexapro] 10 mg PO DAILY #15 tab 09/27/19 Metoprolol Tartrate [Lopressor] 25 mg PO BID #60 tab 09/30/19 Atorvastatin [Lipitor] 10 mg PO DAILY tab 10/23/19 Budesonide-Formot 160-4.5 Mcg 2 puff INHALATION BID #1 inhaler 10/23/19 [Symbicort 160-4.5 Mcg Inhaler] Montelukast [Singulair] 10 mg PO HS tab 10/23/19 Nicotine 14Mg/24Hr Patch [Habitrol] 1 patch TRANSDERM DAILY patch 10/23/19 Apixaban [Eliquis] 5 mg PO Q12H #60 tab 11/08/19 ALPRAZolam [Xanax] 0.25 mg PO BID PRN #3 tab 12/01/19 Apixaban [Eliquis] 5 mg PO BID 30 Days #60 tab 12/01/19 Gabapentin 800 mg PO TID #3 tab 12/01/19 HYDROcodone/APAP 7.5-325MG [[place] 1 tab PO Q6HR PRN 3 Days #12 tab 12/01/19 7.5-325] INSULIN ASPART (NovoLOG) [NovoLOG 0 unit SQ ACHS vial 12/01/19 (formulary)] Ipratropium-Albuterol Nebulize 3 ml INHALATION RT-Q4H PRN ml 12/01/19 [Duoneb 0.5 mg-3 mg/3 ml Soln] Levofloxacin [Levaquin] 500 mg PO Q24H 5 Days #5 tab 12/01/19 Methocarbamol [Robaxin-750] 750 mg PO RT-HS #16 tablet 12/01/19 predniSONE 10 mg PO DIRECTED #30 tab 12/01/19 predniSONE 10 mg PO DIRECTED #30 tab 12/01/19 Allergies Allergy/AdvReac Type Severity Reaction Status Date / Time tree nut [Nut] Allergy Unknown Dyspnea, Verified 11/27/19 17:28 Rash/Hives peanut [Peanut Butter] AdvReac Dyspnea, Verified 11/27/19 17:28 Rash/Hives Review of Systems ROS Other: All systems not noted in ROS Statement are negative. <Ant Reyes - Last Filed: 01/02/20 20:05> ROS Other: All systems not noted in ROS Statement are negative. <Adriana Hernandez - Last Filed: 05/16/20 20:13> ROS Statement: Those systems with pertinent positive or pertinent negative responses have been documented in the HPI. 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 Last Myocardial Infarction Date:: unknown History of Any Multi-Drug Resistant Organisms: None Reported Past Surgical History: Orthopedic Surgery Additional Past Surgical History / Comment(s): metal plate left hand middle finger, right eye enucleation. Past Anesthesia/Blood Transfusion Reactions: No Reported Reaction Past Psychological History: Anxiety, Depression, Panic Disorder Smoking Status: Former smoker Past Alcohol Use History: Occasional Past Drug Use History: Marijuana - Past Family History Mother Family Medical History: Cancer Additional Family Medical History / Comment(s): Pt believes his Mom of Kidney Cancer Father Family Medical History: Cancer, COPD, Respiratory Disorder Additional Family Medical History / Comment(s): Melanoma <Adriana Hernandez M - Last Filed: 01/02/20 20:13> General Exam Limitations: no limitations General appearance: alert, in no apparent distress, other (This is a well-deve loped, well-nourished adult male patient in mild respiratory distress. Vital signs upon presentation are temperature 98.7F, pulse 1:15, respirations 24, blood pressure 155/97, pulse ox 97% on room air.) Eye exam: Present: normal appearance, PERRL, EOMI. Absent: scleral icterus, conjunctival injection, periorbital swelling ENT exam: Present: normal exam, normal oropharynx, mucous membranes moist Respiratory exam: Present: decreased breath sounds (Bilateral). Absent: normal lung sounds bilaterally, respiratory distress, wheezes, rales, rhonchi, stridor Cardiovascular Exam: Present: normal rhythm, tachycardia, normal heart sounds. Absent: systolic murmur, diastolic murmur, rubs, gallop, clicks GI/Abdominal exam: Present: soft, normal bowel sounds. Absent: distended, tenderness, guarding, rebound, rigid Neurological exam: Present: alert, oriented X3, CN II-XII intact Psychiatric exam: Present: normal affect, normal mood Skin exam: Present: warm, dry, intact, normal color. Absent: rash <Adriana Hernandez - Last Filed: 01/02/20 20:13> Course <Ant Reyes - Last Filed: 01/02/20 20:05> Vital Signs 01/02/20 01/02/20 01/02/20 17:50 18:30 18:36 Temperature 98.7 F Pulse Rate 115 H 105 H 106 H Respiratory 24 22 Rate Blood Pressure 155/97 136/71 O2 Sat by Pulse 97 96 Oximetry 01/02/20 01/02/20 18:47 19:22 Temperature Pulse Rate 108 H 105 H Respiratory 20 Rate Blood Pressure 119/81 O2 Sat by Pulse 96 Oximetry - Reevaluation(s) Reevaluation #1: 01/02/20 20:05 Patient does present with complaint shortness of breath the presentation is consistent with COPD exacerbation he relief thus far to be admitted case will be discussed with Dr. tuttle. (Ant Reyes) Medical Decision Making - Lab Data Result diagrams: 01/02/20 18:03 01/02/20 18:03 <Ant Reyes - Last Filed: 01/02/20 20:05> - Lab Data Result diagrams: 01/02/20 18:03 01/02/20 18:03 - EKG Data -: EKG Interpreted by Nd - Radiology Data Radiology results: report reviewed, image reviewed <Adriana Hernandez - Last Filed: 01/02/20 20:13> - Medical Decision Making 59-year-old male patient with past medical history significant for pulmonary embolism and COPD presents to the emergency department today for evaluation of shortness of breath. Physical examination reveals diminished lung sounds. Does have a wet sounding cough. Labs reviewed and did reveal some hyponatremia. CT angiography of the chest was obtained to rule out pulmonary embolism showed no evidence for pulmonary embolus and but did show some scarring and severe bullous emphysema. Patient was given IV steroids, breathing treatments. Upon reevaluation he remains tachycardic and reporting shortness of breath. He will be admitted to the hospital for continued steroids and breathing treatments. We'll consult pulmonology. Dr. tuttle is accepting. (Adriana Hernandez) - Lab Data Lab Results 01/02/20 01/02/20 01/02/20 Range/Units 18:03 18:03 18:03 WBC 8.2 (3.8-10.6) k/uL RBC 3.14 L (4.30-5.90) m/uL Hgb 9.9 L (13.0-17.5) gm/dL Hct 31.2 L (39.0-53.0) % MCV 99.4 (80.0-100.0) fL MCH 31.5 (25.0-35.0) pg MCHC 31.7 (31.0-37.0) g/dL RDW 14.8 (11.5-15.5) % Plt Count 426 (150-450) k/uL Neutrophils % 70 % Lymphocytes % 17 % Monocytes % 9 % Eosinophils % 1 % Basophils % 0 % Neutrophils # 5.7 (1.3-7.7) k/uL Lymphocytes # 1.4 (1.0-4.8) k/uL Monocytes # 0.8 (0-1.0) k/uL Eosinophils # 0.1 (0-0.7) k/uL Basophils # 0.0 (0-0.2) k/uL PT 9.7 (9.0-12.0) sec INR 0.9 (<1.2) APTT 24.1 (22.0-30.0) sec Sodium 130 L (137-145) mmol/L Potassium 4.2 (3.5-5.1) mmol/L Chloride 94 L (98-107) mmol/L Carbon Dioxide 29 (22-30) mmol/L Anion Gap 7 mmol/L BUN 6 L (9-20) mg/dL Creatinine 0.45 L (0.66-1.25) mg/dL Est GFR (CKD-EPI)AfAm >90 (>60 ml/min/1.73 sqM) Est GFR (CKD-EPI)NonAf >90 (>60 ml/min/1.73 sqM) Glucose 74 (74-99) mg/dL Plasma Lactic Acid Gray (0.7-2.0) mmol/L Calcium 9.1 (8.4-10.2) mg/dL Magnesium 1.7 (1.6-2.3) mg/dL Total Bilirubin 0.2 (0.2-1.3) mg/dL AST 18 (17-59) U/L ALT 17 (4-49) U/L Alkaline Phosphatase 58 (38-126) U/L Troponin I (0.000-0.034) ng/mL NT-Pro-B Natriuret Pep pg/mL Total Protein 5.8 L (6.3-8.2) g/dL Albumin 3.6 (3.5-5.0) g/dL 01/02/20 01/02/20 01/02/20 Range/Units 18:03 18:03 18:03 WBC (3.8-10.6) k/uL RBC (4.30-5.90) m/uL Hgb (13.0-17.5) gm/dL Hct (39.0-53.0) % MCV (80.0-100.0) fL MCH (25.0-35.0) pg MCHC (31.0-37.0) g/dL RDW (11.5-15.5) % Plt Count (150-450) k/uL Neutrophils % % Lymphocytes % % Monocytes % % Eosinophils % % Basophils % % Neutrophils # (1.3-7.7) k/uL Lymphocytes # (1.0-4.8) k/uL Monocytes # (0-1.0) k/uL Eosinophils # (0-0.7) k/uL Basophils # (0-0.2) k/uL PT (9.0-12.0) sec INR (<1.2) APTT (22.0-30.0) sec Sodium (137-145) mmol/L Potassium (3.5-5.1) mmol/L Chloride (98-107) mmol/L Carbon Dioxide (22-30) mmol/L Anion Gap mmol/L BUN (9-20) mg/dL Creatinine (0.66-1.25) mg/dL Est GFR (CKD-EPI)AfAm (>60 ml/min/1.73 sqM) Est GFR (CKD-EPI)NonAf (>60 ml/min/1.73 sqM) Glucose (74-99) mg/dL Plasma Lactic Acid Gray 2.1 H* (0.7-2.0) mmol/L Calcium (8.4-10.2) mg/dL Magnesium (1.6-2.3) mg/dL Total Bilirubin (0.2-1.3) mg/dL AST (17-59) U/L ALT (4-49) U/L Alkaline Phosphatase (38-126) U/L Troponin I <0.012 (0.000-0.034) ng/mL NT-Pro-B Natriuret Pep 69 pg/mL Total Protein (6.3-8.2) g/dL Albumin (3.5-5.0) g/dL - EKG Data EKG Comments: EKG obtained at 1750 shows sinus tachycardia with a ventricular rate of 115, WI interval 128, QR rastafarian 84, QT 324, QTC 448. No evidence of ST elevation or depression. (Adriana Hernandez) - Radiology Data CT chest angiography for pulmonary embolism was obtained. Report is reviewed in its entirety. Impression by Dr. Steven shows bullous emphysema. Right upper lobe pleural pulmonary scarring. Right upper lobe nodule. The nodules nonspecific. No evidence of pulmonary embolism. Bilateral basilar mild pulmonary fibrotic changes and subsegmental atelectasis. (Adriana Hernandez) Disposition <Ant Reyes - Last Filed: 01/02/20 20:05> Decision to Admit Reason: Admit from EC Decision Date: 01/02/20 Decision Time: 20:12 <Adriana Hernandez - Last Filed: 01/02/20 20:13> Clinical Impression: COPD exacerbation Disposition: ADMITTED IP TO THIS HOSP Condition: Serious Referrals: Urszula Carrasco MD [Primary Care Provider] - 1-2 days
[2020-01-02 18:33] LABS: Basophils % (A) 0 %; Eosinophils # (A) 0.1 k/uL (0-0.7); Eosinophils % (A) 1 %; HCT 31.2 % (39.0-53.0); HGB 9.9 gm/dL (13.0-17.5); Lymphocytes # (A) 1.4 k/uL (1.0-4.8); Lymphocytes % (A) 17 %; MCH 31.5 pg (25.0-35.0); MCHC 31.7 g/dL (31.0-37.0); MCV 99.4 fL (80.0-100.0); Mean Platelet Volume 6.6; Monocytes # (A) 0.8 k/uL (0-1.0); Monocytes % (A) 9 %; Neutrophils # (A) 5.7 k/uL (1.3-7.7); Neutrophils % (A) 70 %; Platelet Count 426 k/uL (150-450); RBC 3.14 m/uL (4.30-5.90); RDW 14.8 % (11.5-15.5); WBC 8.2 k/uL (3.8-10.6)
[2020-01-02 18:43] LABS: INR 0.9 (<1.2); Partial Thromboplastin Time 24.1 sec (22.0-30.0); Prothrombin Time 9.7 sec (9.0-12.0)
[2020-01-02 18:53] LABS: ALT 17 U/L (4-49); AST 18 U/L (17-59); African American GFR (CKD) >90 (>60 ml/min/1.73 sqM); Albumin 3.6 g/dL (3.5-5.0); Alkaline Phosphatase 58 U/L (38-126); Anion Gap 7 mmol/L; Blood Urea Nitrogen 6 mg/dL (9-20); Calcium 9.1 mg/dL (8.4-10.2); Carbon Dioxide 29 mmol/L (22-30); Chloride 94 mmol/L (98-107); Glucose 74 mg/dL (74-99); Magnesium 1.7 mg/dL (1.6-2.3); Non-African American GFR(CKD) >90 (>60 ml/min/1.73 sqM); Potassium 4.2 mmol/L (3.5-5.1); Sodium 130 mmol/L (137-145); Total Bilirubin 0.2 mg/dL (0.2-1.3); Total Protein 5.8 g/dL (6.3-8.2)
--- NOTE | 2020-01-02 19:39 | CT ---
EXAMINATION TYPE: CT chest angio for PE DATE OF EXAM: 01/02/2020 COMPARISON: 11/27/2019 HISTORY: SOB CT DLP: 635.5 mGycm Automated exposure control for dose reduction was used. CONTRAST: Performed with IV Contrast, patient injected with 78cc mL of Isovue 370. Multiple axial sections were obtained from the thoracic inlet to the diaphragm with intravenous contr ast Isovue 81 mL. There are 3-D post processed images. FINDINGS: There is severe diffuse bullous emphysema. Heart size is normal. There is no pericardial effusion. Th ere is no pleural effusion. There is some mild coarse interstitial infiltrate left lower lobe. There is linear density at the lung bases. This is consistent with scarring and subsegmental atelectasis. There are no hilar masses. There is no mediastinal adenopathy. Thoracic aorta is intact with no sign of aneurysm or dissection. There is normal contrast opacification of the pulmonary arteries. There are no filling defects. Upper abdominal soft tissues are intact. The bony thorax appears intact. There is some pleural thickening in the posterior right upper lobe. There is adjacent noncalcified 12 mm nodule. IMPRESSION: Bullous emphysema. Right upper lobe pleural and pulmonary scarring. Right upper lobe nodule. The nodu le is nonspecific. No evidence of pulmonary embolism. Bilateral basilar mild pulmonary fibrotic changes and subsegmental atelectasis.
[2020-01-02] MEDS ORDERED: SODIUM CHLORIDE 0.9% 1,000 ML IV STA (20:08)
[2020-01-02] MEDS: IPRATROPIUM-ALBUTEROL 3 ML NEB INHALATION PRN (23:17)
[2020-01-03] MEDS: APIXABAN 5 MG TAB PO SCH ×3 (01:03→20:36)
[2020-01-03] MEDS: methylPREDNISolone SOD SUCCI 125 MG/2 ML VIAL IV SCH ×4 (01:03→17:49)
[2020-01-03] MEDS: IPRATROPIUM-ALBUTEROL 3 ML NEB INHALATION PRN (04:33)
[2020-01-03] MEDS: IPRATROPIUM-ALBUTEROL 3 ML NEB INHALATION SCH ×4 (07:33→19:59)
[2020-01-03 08:15] LABS: Basophils % (A) 0 %; Eosinophils # (A) 0.1 k/uL (0-0.7); Eosinophils % (A) 1 %; HCT 32.2 % (39.0-53.0); HGB 10.1 gm/dL (13.0-17.5); Lymphocytes # (A) 0.4 k/uL (1.0-4.8); Lymphocytes % (A) 5 %; MCH 30.9 pg (25.0-35.0); MCHC 31.4 g/dL (31.0-37.0); MCV 98.4 fL (80.0-100.0); Mean Platelet Volume 6.7; Monocytes # (A) 0.1 k/uL (0-1.0); Monocytes % (A) 1 %; Neutrophils # (A) 7.3 k/uL (1.3-7.7); Neutrophils % (A) 92 %; Platelet Count 453 k/uL (150-450); RBC 3.27 m/uL (4.30-5.90); RDW 14.6 % (11.5-15.5)
[2020-01-03 08:32] LABS: African American GFR (CKD) >90 (>60 ml/min/1.73 sqM); Anion Gap 7 mmol/L; Blood Urea Nitrogen 13 mg/dL (9-20); Calcium 9.1 mg/dL (8.4-10.2); Carbon Dioxide 28 mmol/L (22-30); Chloride 99 mmol/L (98-107); Glucose 137 mg/dL (74-99); Non-African American GFR(CKD) >90 (>60 ml/min/1.73 sqM); Potassium 4.4 mmol/L (3.5-5.1); Sodium 134 mmol/L (137-145)
[2020-01-03] MEDS: ESCITALOPRAM 10 MG TAB PO SCH (08:41)
[2020-01-03] MEDS: ASPIRIN 81 MG PO SCH (08:41)
[2020-01-03] MEDS: amLODIPine 10 MG TAB PO SCH (08:41)
[2020-01-03] MEDS: ACETAMINOPHEN TAB 325 MG TAB PO PRN (08:45)
--- NOTE | 2020-01-03 12:45 | P.CNPUL ---
History of Present Illness Consult date: 01/03/20 Requesting physician: David Chavez Reason for consult: dyspnea, COPD Chief complaint: Shortness of breath History of present illness: This is a pleasant 59-year-old gentleman follows in our office for chronic obstructive pulmonary disease. He has chronic and ongoing tobacco dependence, marijuana use. He also has a history of a right upper lobe fungal pneumonia Aspergillus fumigatus back in March 2019 treated with Sporanox and Augmentin. Most recent chest x-ray shows near complete resolution. 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 He is known to have a previous fungal infection in the right upper lobe that was treated with itraconazole with good results. A repeat CAT scan of the chest was done in October 2019 and showed improving cavitary lesion in the the right upper lobe and possibly a new infiltrate in the left lung base above the diaphragm. Note that his most recent bronchioloalveolar lavage that was done on 09/17/2019 showed mckinley bacterium species and Larissa. He has had multiple admissions for COPD exacerbations was recently discharged 11/30/2021 [facility]. He was released from there 2 days ago. After leaving the facility in getting into a truck was to take him home he scraped his leg and ended up never [facility] ER and had 15 sutures put into the left lower extremity tibia area. Yesterday he presented to the emergency room with ongoing bleeding from that same site and was discharged home. A few hours later he returned to the emergency room now with complaints of increasing shortness of breath cough and congestion. CT angiogram ruled out pulmonary embolism. There is bullous emphysema. Right upper lobe pleural and pulmonary scarring from previous fungal infection. Again, the patient has been maintained on Eliquis in the outpatient setting. He is seen today 01/03/2020 in consultation on the regular medical floor. He is awake and alert in no acute distress. Maintaining O2 saturations in the 90s on 3 L/m per nasal cannula. White count 8.0. Hemoglobin 10.1. Sodium 134. Potassium 4.4. Creatinine 0.39. CoVID 19 test pending. He has been initiated on DuoNeb inhalations, IV Solu-Medrol. Left lower extremity wound reveals sutures in place incision clean dry well approximated. No current bleeding. Review of Systems REVIEW OF SYSTEMS: CONSTITUTIONAL: Denies any recent significant weight loss or weight gain. EYES: Denies change in vision. EARS, NOSE, MOUTH, THROAT: Denies headaches, denies sore throat. CARDIOVASCULAR: Denies chest pain, no palpitations no syncopal episodes. RESPIRATORY: Positive for shortness of breath, cough, congestion no hemoptysis. GASTROINTESTINAL: Denies change in appetite, denies abdominal pain GENITOURINARY: Denies hematuria, denies infections. MUSKULOSKELETAL: Denies pain, denies swelling. INTEGUMENTARY: Recent injury to the left lower extremity with sutures in place. Right lower extremity with skin tear.. NEUROLOGICAL: Denies recent memory loss, no recent seizure activity. PSYCHIATRIC: Denies anxiety, denies depression. HEMATOLOGIC/LYMPHATIC: Denies anemia, denies enlarged lymph nodes. 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 Last Myocardial Infarction Date:: unknown History of Any Multi-Drug Resistant Organisms: None Reported Past Surgical History: Orthopedic Surgery Additional Past Surgical History / Comment(s): metal plate left hand middle finger, right eye enucleation. Past Anesthesia/Blood Transfusion Reactions: No Reported Reaction Past Psychological History: Anxiety, Depression, Panic Disorder Additional Psychological History / Comment(s): Lives in apartment. Has a nebulizer/oxygen. 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 Smoking Status: Former smoker Past Alcohol Use History: None Reported, Occasional Additional Past Alcohol Use History / Comment(s): STARTED SMOKING 1975 1 PPD- PT STATED HE DRINKS 1 BEER a day Past Drug Use History: Marijuana Additional Drug Use History / Comment(s): Pt states he uses marajuana at times. - Past Family History Mother Family Medical History: Cancer Additional Family Medical History / Comment(s): Pt believes his Mom of Kidney Cancer Father Family Medical History: Cancer, COPD, Respiratory Disorder Additional Family Medical History / Comment(s): Melanoma Medications and Allergies Home Medications Medication Instructions Recorded Confirmed Type amLODIPine [Norvasc] 10 mg PO DAILY 04/29/19 01/03/20 History Escitalopram [Lexapro] 10 mg PO DAILY #15 tab 05/15/19 01/03/20 Rx Ipratropium-Albuterol Nebulize 3 ml INHALATION RT-QID 06/13/19 01/03/20 History [Duoneb 0.5 mg-3 mg/3 ml Soln] Melatonin 10 mg PO HS 08/12/19 01/03/20 History Metoprolol Tartrate [Lopressor] 25 mg PO BID #60 tab 09/30/19 01/03/20 Rx Aspirin EC [Ecotrin Low Dose] 81 mg PO DAILY 10/20/19 01/03/20 History Folic Acid 1 mg PO DAILY 10/20/19 01/03/20 History Meclizine [Antivert] 12.5 mg PO Q12H 10/20/19 01/03/20 History Pantoprazole Sodium [Protonix] 40 mg PO DAILY 10/20/19 01/03/20 History Atorvastatin [Lipitor] 10 mg PO DAILY tab 10/23/19 01/03/20 Rx Montelukast [Singulair] 10 mg PO HS tab 10/23/19 01/03/20 Rx Nicotine 14Mg/24Hr Patch [Habitrol] 1 patch TRANSDERM DAILY patch 10/23/19 01/03/20 Rx ALPRAZolam [Xanax] 0.25 mg PO BID PRN #3 tab 12/01/19 01/03/20 Rx Apixaban [Eliquis] 5 mg PO BID 30 Days #60 tab 12/01/19 01/03/20 Rx Gabapentin 800 mg PO TID #3 tab 12/01/19 01/03/20 Rx HYDROcodone/APAP 7.5-325MG [[place] 1 tab PO Q6HR PRN 3 Days #12 tab 12/01/19 01/03/20 Rx 7.5-325] Ipratropium-Albuterol Nebulize 3 ml INHALATION RT-Q4H PRN ml 12/01/19 01/03/20 Rx [Duoneb 0.5 mg-3 mg/3 ml Soln] Budesonide-Formot 160-4.5 Mcg 2 puff INHALATION RT-BID 01/03/20 01/03/20 History [Symbicort 160-4.5 Mcg Inhaler] INSULIN ASPART (NovoLOG) [NovoLOG See Protocol SQ ACHS 01/03/20 01/03/20 History (formulary)] Methocarbamol [Robaxin-750] 750 mg PO HS 01/03/20 01/03/20 History Allergies Allergy/AdvReac Type Severity Reaction Status Date / Time tree nut [Nut] Allergy Unknown Dyspnea, Verified 01/03/20 10:41 Rash/Hives peanut [Peanut Butter] AdvReac Dyspnea, Verified 01/03/20 10:41 Rash/Hives Physical Exam Vitals: Vital Signs Temp Pulse Pulse Resp BP BP Pulse Ox 01/03/20 11:29 100 01/03/20 11:16 100 01/03/20 07:45 100 01/03/20 07:34 104 H 01/03/20 07:00 98.4 F 122 H 20 132/76 97 01/03/20 04:43 100 01/03/20 04:33 96 01/03/20 02:10 98.5 F 101 H 146/78 98 01/02/20 23:51 100 01/02/20 23:17 104 H 01/02/20 21:00 98.3 F 84 20 143/78 98 01/02/20 20:30 98.2 F 105 H 20 150/80 97 01/02/20 19:22 105 H 20 119/81 96 01/02/20 18:47 108 H 01/02/20 18:36 106 H 01/02/20 18:30 105 H 22 136/71 96 01/02/20 17:50 98.7 F 115 H 24 155/97 97 Intake and Output 01/02/20 01/03/20 01/03/20 22:59 06:59 14:59 Intake Total 200 100 400 Output Total 600 800 Balance -400 -700 400 Intake: IV 400 Sodium Chloride 0.9% 1, 400 000 ml @ 50 mls/hr IV . Q20H STA Rx#:[id number] Oral 200 100 Output: Urine 600 800 Other: # Voids 2 2 Weight 76.204 kg GENERAL EXAM: Alert, 59-year-old male patient, on 2 L of oxygen with a pulse ox of 100% comfortable in no apparent distress. HEAD: Normocephalic/atraumatic. EYES: Normal reaction of pupils, in the left eye, Conjunctiva pink, sclera white. Patient has a prosthetic right eye. NOSE: Clear with pink turbinates. THROAT: No erythema or exudates. NECK: No masses, no JVD, no thyroid enlargement, no adenopathy. CHEST: No chest wall deformity. Symmetrical expansion. LUNGS: Equal air entry clear, diminished CVS: Regular rate and rhythm, normal S1 and S2, no gallops, no murmurs, no rubs ABDOMEN: Soft, nontender. No hepatosplenomegaly, normal bowel sounds, no guarding or rigidity. EXTREMITIES: No clubbing, no edema, no cyanosis, 2+ pulses and upper and lower extremities. Left arm is in a sling MUSCULOSKELETAL: Muscle strength and tone normal. SPINE: No scoliosis or deformity. SKIN: Laceration to the left lower extremity with sutures in place. No active bleeding. Skin tear to the right lower extremity. CENTRAL NERVOUS SYSTEM: No focal deficits, tone is normal in all 4 extremities. PSYCHIATRIC: Alert and oriented -3. Appropriate affect. Intact judgment and insight. Results - Laboratory Findings CBC and BMP: 01/03/20 08:00 01/03/20 08:00 PT/INR, D-dimer PT 9.7 sec (9.0-12.0) 01/02/20 18:03 INR 0.9 (<1.2) 01/02/20 18:03 Abnormal lab findings: Abnormal Labs 01/02/20 01/02/20 01/02/20 18:03 18:03 18:03 RBC 3.14 L Hgb 9.9 L Hct 31.2 L Plt Count Lymphocytes # Sodium 130 L Chloride 94 L BUN 6 L Creatinine 0.45 L Glucose Plasma Lactic Acid Gray 2.1 H* Total Protein 5.8 L 01/02/20 01/03/20 01/03/20 22:34 08:00 08:00 RBC 3.27 L Hgb 10.1 L Hct 32.2 L Plt Count 453 H Lymphocytes # 0.4 L Sodium 134 L Chloride BUN Creatinine 0.39 L Glucose 137 H Plasma Lactic Acid Gray 0.6 L Total Protein - Diagnostic Findings Chest x-ray: image reviewed CT scan - chest: image reviewed Assessment and Plan Assessment: 1 Acute exacerbation of severe oxygen dependent chronic obstructive pulmonary disease, FEV1 value 36% of predicted 2 Recent discharge from extended care facility, CoVID 19 test pending 3 Recent injury to the left lower extremity with laceration in the area of the tibia requiring suture placement at outside hospital ([facility]) 4 Chronic tobacco dependence 5 Right upper lobe fungal infection secondary to Aspergillus treated with Sporanox and Augmentin, complete resolution and residual scarring on computed tomography scan. 6 History of PE/DVT, anticoagulated with Eliquis. 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 Garcia CAT scan and labs reviewed Continue treatment for COPD exacerbation Continue isolation until Covid testing resulted We will continue to follow I, the cosigning physician, performed a history & physical examination of the patient. Lungs sounds are clear, diminished. Maintaining good O2 saturations in the 90s on 3 L/m per nasal cannula. I discussed the assessment and plan of care with my nurse practitioner, Crissy Bland. I attest to the above note as dictated by her. Time with Patient: Greater than 30
--- NOTE | 2020-01-03 15:35 | P.HPIM ---
History of Present Illness H&P Date: 01/03/20 Chief Complaint: Shortness of breath 59-year-old male patient with past medical history significant for COPD and pulmonary embolism presents to the emergency department today for evaluation of shortness of breath. Patient states he started having increasing difficulty with breathing over the last few hours. States he did do 6 breathing treatments at home without relief. States that he does have a chronic cough denies sputum production. Denies any fever or chills. Denies any chest pain or pressure with this. Denies any increased leg swelling or pain. Does take Eliquis for history of PE. States he was diagnosed 2 months ago with the pulmonary embolism. Patient denies any recent rash, abdominal pain, nausea, vomiting, diarrhea, constipation, back pain, numbness, tingling, dizziness, weakness, hematuria, dysuria, urinary urgency, urinary frequency, headache, visual changes, or any other complaints. Review of Systems REVIEW OF SYSTEMS: CONSTITUTIONAL: No fever, no malaise, no fatigue. HEENT: No recent visual problems or hearing problems. Denied any sore throat. CARDIOVASCULAR: No chest pain, orthopnea, PND, no palpitations, no syncope. PULMONARY: Positive for shortness of breath, no cough, no hemoptysis. GASTROINTESTINAL: No diarrhea, no nausea, no vomiting, no abdominal pain. NEUROLOGICAL: No headaches, no weakness, no numbness. HEMATOLOGICAL: Denies any bleeding or petechiae. GENITOURINARY: Denies any burning micturition, frequency, or urgency. MUSCULOSKELETAL/RHEUMATOLOGICAL: Denies any joint pain, swelling, or any muscle pain. ENDOCRINE: Denies any polyuria or polydipsia. The rest of the 14-point review of systems is negative. 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 Last Myocardial Infarction Date:: unknown History of Any Multi-Drug Resistant Organisms: None Reported Past Surgical History: Orthopedic Surgery Additional Past Surgical History / Comment(s): metal plate left hand middle finger, right eye enucleation. Past Anesthesia/Blood Transfusion Reactions: No Reported Reaction Past Psychological History: Anxiety, Depression, Panic Disorder Additional Psychological History / Comment(s): Lives in apartment. Has a nebulizer/oxygen. 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 Smoking Status: Former smoker Past Alcohol Use History: None Reported, Occasional Additional Past Alcohol Use History / Comment(s): STARTED SMOKING 1975 1 PPD- PT STATED HE DRINKS 1 BEER a day Past Drug Use History: Marijuana Additional Drug Use History / Comment(s): Pt states he uses marajuana at times. - Past Family History Mother Family Medical History: Cancer Additional Family Medical History / Comment(s): Pt believes his Mom of Kidney Cancer Father Family Medical History: Cancer, COPD, Respiratory Disorder Additional Family Medical History / Comment(s): Melanoma Medications and Allergies Home Medications Medication Instructions Recorded Confirmed Type amLODIPine [Norvasc] 10 mg PO DAILY 04/29/19 01/03/20 History Escitalopram [Lexapro] 10 mg PO DAILY #15 tab 05/15/19 01/03/20 Rx Ipratropium-Albuterol Nebulize 3 ml INHALATION RT-QID 06/13/19 01/03/20 History [Duoneb 0.5 mg-3 mg/3 ml Soln] Melatonin 10 mg PO HS 08/12/19 01/03/20 History Metoprolol Tartrate [Lopressor] 25 mg PO BID #60 tab 09/30/19 01/03/20 Rx Aspirin EC [Ecotrin Low Dose] 81 mg PO DAILY 10/20/19 01/03/20 History Folic Acid 1 mg PO DAILY 10/20/19 01/03/20 History Meclizine [Antivert] 12.5 mg PO Q12H 10/20/19 01/03/20 History Pantoprazole Sodium [Protonix] 40 mg PO DAILY 10/20/19 01/03/20 History Atorvastatin [Lipitor] 10 mg PO DAILY tab 10/23/19 01/03/20 Rx Montelukast [Singulair] 10 mg PO HS tab 10/23/19 01/03/20 Rx Nicotine 14Mg/24Hr Patch [Habitrol] 1 patch TRANSDERM DAILY patch 10/23/19 01/03/20 Rx ALPRAZolam [Xanax] 0.25 mg PO BID PRN #3 tab 12/01/19 01/03/20 Rx Apixaban [Eliquis] 5 mg PO BID 30 Days #60 tab 12/01/19 01/03/20 Rx Gabapentin 800 mg PO TID #3 tab 12/01/19 01/03/20 Rx HYDROcodone/APAP 7.5-325MG [[place] 1 tab PO Q6HR PRN 3 Days #12 tab 12/01/19 01/03/20 Rx 7.5-325] Ipratropium-Albuterol Nebulize 3 ml INHALATION RT-Q4H PRN ml 12/01/19 01/03/20 Rx [Duoneb 0.5 mg-3 mg/3 ml Soln] Budesonide-Formot 160-4.5 Mcg 2 puff INHALATION RT-BID 01/03/20 01/03/20 History [Symbicort 160-4.5 Mcg Inhaler] INSULIN ASPART (NovoLOG) [NovoLOG See Protocol SQ ACHS 01/03/20 01/03/20 History (formulary)] Methocarbamol [Robaxin-750] 750 mg PO HS 01/03/20 01/03/20 History Allergies Allergy/AdvReac Type Severity Reaction Status Date / Time tree nut [Nut] Allergy Unknown Dyspnea, Verified 01/03/20 10:41 Rash/Hives peanut [Peanut Butter] AdvReac Dyspnea, Verified 01/03/20 10:41 Rash/Hives Physical Exam Vitals: Vital Signs Temp Pulse Pulse Resp BP BP Pulse Ox 01/03/20 15:24 96 01/03/20 15:11 100 01/03/20 11:29 100 01/03/20 11:16 100 01/03/20 07:45 100 01/03/20 07:34 104 H 01/03/20 07:00 98.4 F 122 H 20 132/76 97 01/03/20 04:43 100 01/03/20 04:33 96 01/03/20 02:10 98.5 F 101 H 146/78 98 01/02/20 23:51 100 01/02/20 23:17 104 H 01/02/20 21:00 98.3 F 84 20 143/78 98 01/02/20 20:30 98.2 F 105 H 20 150/80 97 01/02/20 19:22 105 H 20 119/81 96 01/02/20 18:47 108 H 01/02/20 18:36 106 H 01/02/20 18:30 105 H 22 136/71 96 01/02/20 17:50 98.7 F 115 H 24 155/97 97 Intake and Output 01/03/20 01/03/20 01/03/20 06:59 14:59 22:59 Intake Total 100 400 Output Total 800 Balance -700 400 Intake: IV 400 Sodium Chloride 0.9% 1, 400 000 ml @ 50 mls/hr IV . Q20H STA Rx#:[id number] Oral 100 Output: Urine 800 Other: # Voids 2 - Constitutional General appearance: Present: average body habitus, cooperative, no acute distress - EENT Eyes: Present: anicteric sclerae, EOMI, PERRLA, normal appearance ENT: Present: hearing grossly normal, normal oropharynx Ears: bilateral: normal - Neck Neck: Present: normal ROM. Absent: lymphadenopathy, rigidity, thyromegaly Carotids: negative: bruit present Thyroid: bilateral: normal size, negative: enlarged, nodule - Respiratory Respiratory: bilateral: CTA, negative: rales, rhonchi, wheezing - Cardiovascular Rhythm: regular Heart sounds: normal: S1, S2 Abnormal Heart Sounds: Absent: systolic murmur, diastolic murmur - Gastrointestinal General gastrointestinal: Present: normal bowel sounds, soft. Absent: distended, organomegaly, tenderness - Genitourinary Genitourinary Comment(s): deferred - Integumentary Integumentary: Present: normal turgor. Absent: jaundiced, rash, ulcer - Neurologic Neurologic: Present: CNII-XII intact. Absent: focal deficits - Musculoskeletal Musculoskeletal: Present: gait normal, strength equal bilaterally - Psychiatric Psychiatric: Present: A&O x's 3, appropriate affect, intact judgment & insight Results CBC & Chem 7: 01/03/20 08:00 01/03/20 08:00 Labs: Abnormal Lab Results - Last 24 Hours (Table) 01/02/20 01/02/20 01/02/20 Range/Units 18:03 18:03 18:03 RBC 3.14 L (4.30-5.90) m/uL Hgb 9.9 L (13.0-17.5) gm/dL Hct 31.2 L (39.0-53.0) % Plt Count (150-450) k/uL Lymphocytes # (1.0-4.8) k/uL Sodium 130 L (137-145) mmol/L Chloride 94 L (98-107) mmol/L BUN 6 L (9-20) mg/dL Creatinine 0.45 L (0.66-1.25) mg/dL Glucose (74-99) mg/dL Plasma Lactic Acid Gray 2.1 H* (0.7-2.0) mmol/L Total Protein 5.8 L (6.3-8.2) g/dL 01/02/20 01/03/20 01/03/20 Range/Units 22:34 08:00 08:00 RBC 3.27 L (4.30-5.90) m/uL Hgb 10.1 L (13.0-17.5) gm/dL Hct 32.2 L (39.0-53.0) % Plt Count 453 H (150-450) k/uL Lymphocytes # 0.4 L (1.0-4.8) k/uL Sodium 134 L (137-145) mmol/L Chloride (98-107) mmol/L BUN (9-20) mg/dL Creatinine 0.39 L (0.66-1.25) mg/dL Glucose 137 H (74-99) mg/dL Plasma Lactic Acid Gray 0.6 L (0.7-2.0) mmol/L Total Protein (6.3-8.2) g/dL Thrombosis Risk Factor Assmnt - Choose All That Apply Any of the Below Risk Factors Present?: No Other Risk Factors: No Thrombosis Risk Factor Assessment Level: Very Low Risk Assessment and Plan Assessment: 1. Acute exacerbation COPD - Patient is started on Solu-Medrol 60 mg IV every 6 hours; continue with DuoNeb nebulizer treatments 4 times a day and when necessary 2. Suspicion for COVID 19 infection; test results are pending; continue with droplet and contact isolation 3. Recent injury left lower extremity/ laceration; stable 4. 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 History of PE/DVT; continue with anticoagulation with Eliquis 7. Hypertension; amlodipine 10 mg daily along with metoprolol 25 mg twice a day 8. History of CVA/TIA; continue with aspirin and statin therapy 9. Hyperlipidemia; atorvastatin 10 mg by mouth daily at bedtime DVT prophylaxis; systemic anticoagulation with Eliquis CODE STATUS; full code
[2020-01-03] MEDS: GABAPENTIN 400 MG CAP PO SCH ×2 (16:12→20:36)
[2020-01-03] MEDS: METOPROLOL TARTRATE 25 MG TAB PO SCH (20:36)
[2020-01-03] MEDS: ALPRAZolam 0.25 MG TAB PO PRN (20:44)
[2020-01-03] MEDS: METHOCARBAMOL 750 MG TAB PO SCH (20:44)
[2020-01-04] MEDS: IPRATROPIUM-ALBUTEROL 3 ML NEB INHALATION PRN ×2 (01:02→05:41)
[2020-01-04] MEDS: methylPREDNISolone SOD SUCCI 125 MG/2 ML VIAL IV SCH ×4 (01:36→18:01)
[2020-01-04] MEDS: IPRATROPIUM-ALBUTEROL 3 ML NEB INHALATION SCH ×4 (07:36→20:48)
[2020-01-04] MEDS: ESCITALOPRAM 10 MG TAB PO SCH (08:11)
[2020-01-04] MEDS: ATORVASTATIN 10 MG TAB PO SCH (08:11)
[2020-01-04] MEDS: ASPIRIN 81 MG PO SCH (08:11)
[2020-01-04] MEDS: amLODIPine 10 MG TAB PO SCH (08:11)
[2020-01-04] MEDS: FOLIC ACID 1 MG TAB PO SCH (08:11)
[2020-01-04] MEDS: APIXABAN 5 MG TAB PO SCH ×2 (08:11→21:32)
[2020-01-04] MEDS: METOPROLOL TARTRATE 25 MG TAB PO SCH ×2 (08:12→21:31)
[2020-01-04] MEDS: PANTOPRAZOLE 40 MG TABLET PO SCH (08:12)
[2020-01-04] MEDS: GABAPENTIN 400 MG CAP PO SCH ×3 (08:12→21:31)
[2020-01-04 08:32] LABS: Basophils % (A) 0 %; Eosinophils % (A) 0 %; HGB 9.2 gm/dL (13.0-17.5); Hypochromasia Slight; Lymphocytes # (A) 0.4 k/uL (1.0-4.8); Lymphocytes % (A) 3 %; MCH 31.9 pg (25.0-35.0); MCHC 31.7 g/dL (31.0-37.0); MCV 100.5 fL (80.0-100.0); Macrocytosis Slight; Mean Platelet Volume 6.5; Monocytes # (A) 0.6 k/uL (0-1.0); Monocytes % (A) 4 %; Neutrophils # (A) 12.7 k/uL (1.3-7.7); Neutrophils % (A) 92 %; Platelet Count 511 k/uL (150-450); RBC 2.88 m/uL (4.30-5.90); RDW 14.6 % (11.5-15.5); WBC 13.8 k/uL (3.8-10.6)
[2020-01-04 08:54] LABS: African American GFR (CKD) >90 (>60 ml/min/1.73 sqM); Anion Gap 8 mmol/L; Blood Urea Nitrogen 21 mg/dL (9-20); Calcium 8.8 mg/dL (8.4-10.2); Carbon Dioxide 29 mmol/L (22-30); Chloride 100 mmol/L (98-107); Glucose 157 mg/dL (74-99); Non-African American GFR(CKD) >90 (>60 ml/min/1.73 sqM); Potassium 4.3 mmol/L (3.5-5.1); Sodium 137 mmol/L (137-145)
[2020-01-04] MEDS ORDERED: amLODIPine 10 MG TAB PO SCH (09:00)
[2020-01-04] MEDS ORDERED: ESCITALOPRAM 10 MG TAB PO SCH (09:00)
[2020-01-04] MEDS ORDERED: NON FORMULARY DRUG (Aspirin Ec 81 MG) PO SCH (09:00)
[2020-01-04] MEDS: ACETAMINOPHEN TAB 325 MG TAB PO PRN (21:31)
[2020-01-04] MEDS: METHOCARBAMOL 750 MG TAB PO SCH (21:31)
[2020-01-04] MEDS: ALPRAZolam 0.25 MG TAB PO PRN (21:32)
[2020-01-05] MEDS: IPRATROPIUM-ALBUTEROL 3 ML NEB INHALATION PRN ×3 (00:15→23:16)
[2020-01-05] MEDS: methylPREDNISolone SOD SUCCI 125 MG/2 ML VIAL IV SCH ×4 (00:35→17:24)
[2020-01-05 07:45] LABS: Basophils % (A) 0 %; Eosinophils % (A) 0 %; HCT 29.4 % (39.0-53.0); HGB 9.2 gm/dL (13.0-17.5); Hypochromasia Slight; Lymphocytes # (A) 0.5 k/uL (1.0-4.8); Lymphocytes % (A) 3 %; MCH 30.9 pg (25.0-35.0); MCHC 31.3 g/dL (31.0-37.0); Mean Platelet Volume 6.4; Monocytes # (A) 0.5 k/uL (0-1.0); Monocytes % (A) 4 %; Neutrophils # (A) 13.6 k/uL (1.3-7.7); Neutrophils % (A) 92 %; Platelet Count 532 k/uL (150-450); RBC 2.97 m/uL (4.30-5.90); RDW 14.4 % (11.5-15.5); WBC 14.7 k/uL (3.8-10.6)
[2020-01-05 07:46] LABS: Potassium 4.1 mmol/L (3.5-5.1)
[2020-01-05 07:47] LABS: African American GFR (CKD) >90 (>60 ml/min/1.73 sqM); Anion Gap 5 mmol/L; Blood Urea Nitrogen 16 mg/dL (9-20); Calcium 8.8 mg/dL (8.4-10.2); Carbon Dioxide 30 mmol/L (22-30); Chloride 101 mmol/L (98-107); Glucose 131 mg/dL (74-99); Non-African American GFR(CKD) >90 (>60 ml/min/1.73 sqM); Sodium 136 mmol/L (137-145)
[2020-01-05] MEDS: IPRATROPIUM-ALBUTEROL 3 ML NEB INHALATION SCH ×4 (07:56→19:40)
[2020-01-05] MEDS: ATORVASTATIN 10 MG TAB PO SCH (08:34)
[2020-01-05] MEDS: FOLIC ACID 1 MG TAB PO SCH (08:34)
[2020-01-05] MEDS: ASPIRIN 81 MG PO SCH (08:34)
[2020-01-05] MEDS: METOPROLOL TARTRATE 25 MG TAB PO SCH ×2 (08:34→20:41)
[2020-01-05] MEDS: APIXABAN 5 MG TAB PO SCH ×2 (08:34→20:41)
[2020-01-05] MEDS: amLODIPine 10 MG TAB PO SCH (08:34)
[2020-01-05] MEDS: PANTOPRAZOLE 40 MG TABLET PO SCH (08:34)
[2020-01-05] MEDS: ESCITALOPRAM 10 MG TAB PO SCH (08:34)
[2020-01-05] MEDS: GABAPENTIN 400 MG CAP PO SCH ×3 (08:34→20:40)
[2020-01-05] MEDS: ACETAMINOPHEN TAB 325 MG TAB PO PRN (20:41)
[2020-01-05] MEDS: ALPRAZolam 0.25 MG TAB PO PRN (20:41)
[2020-01-05] MEDS: METHOCARBAMOL 750 MG TAB PO SCH (20:41)
--- NOTE | 2020-01-05 23:50 | P.PN ---
Subjective Progress Note Date: 01/04/20 Principal diagnosis: Acute COPD exacerbation 59-year-old male patient with past medical history significant for COPD and pulmonary embolism presents to the emergency department today for evaluation of shortness of breath. Patient states he started having increasing difficulty with breathing over the last few hours. States he did do 6 breathing treatments at home without relief. States that he does have a chronic cough denies sputum production. Denies any fever or chills. Denies any chest pain or pressure with this. Denies any increased leg swelling or pain. Does take Eliquis for history of PE. States he was diagnosed 2 months ago with the pulmonary embolism. Patient denies any recent rash, abdominal pain, nausea, vomiting, diarrhea, constipation, back pain, numbness, tingling, dizziness, weakness, hematuria, dysuria, urinary urgency, urinary frequency, headache, visual changes, or any other complaints. 01/04/2020 Patient states that he is still short of breath and exhausted. Complains of pain and requesting IV pain medications. Otherwise patient is afebrile. No complaints of chest pain. Cough without much sputum production. CT angiogram of the chest showed bullous emphysema. Right upper lobe pleural and pulmonary scarring. Right upper lobe nodule. Nodule is nonspecific. Pulmonary is following. Patient is being continued on IV steroids and breathing treatments and oxygen therapy. Current medications reviewed. Objective - Vital Signs Vital signs: Vital Signs Temp 98.5 F 01/04/20 14:08 Pulse 100 01/04/20 16:12 Resp 18 01/04/20 16:12 BP 121/72 01/04/20 14:08 Pulse Ox 100 01/04/20 14:08 Intake & Output 01/04/20 01/04/20 01/05/20 06:59 18:59 06:59 Intake Total 100 915 Output Total 1400 Balance -1300 915 Intake: Oral 100 915 Output: Urine 1400 Other: Voiding Method Toilet # Voids 4 2 # Bowel Movements 1 - Exam - Constitutional General appearance: Present: average body habitus, cooperative, no acute distre ss - EENT Eyes: Present: anicteric sclerae, EOMI, PERRLA on Rt eye , Patient has a prosthetic right eye. ENT: Present: hearing grossly normal, normal oropharynx Ears: bilateral: normal - Neck Neck: Present: normal ROM. Absent: lymphadenopathy, rigidity, thyromegaly Carotids: negative: bruit present Thyroid: bilateral: normal size, negative: enlarged, nodule - Respiratory Respiratory: bilateral: b/l: rales, rhonchi, wheezing. non labored - Cardiovascular Rhythm: regular Heart sounds: normal: S1, S2 Abnormal Heart Sounds: Absent: systolic murmur, diastolic murmur - Gastrointestinal General gastrointestinal: Present: normal bowel sounds, soft. Absent: distended, organomegaly, tenderness - Genitourinary Genitourinary Comment(s): deferred - Integumentary Integumentary: Present: normal turgor. Absent: jaundiced, rash, ulcer - Neurologic Neurologic: Present: CNII-XII intact. Absent: focal deficits - Musculoskeletal Musculoskeletal: Present: gait normal, strength equal bilaterally - Psychiatric Psychiatric: Present: A&O x's 3, appropriate affect, intact judgment & insight - Labs CBC & Chem 7: 01/05/20 07:13 01/05/20 07:13 Labs: Abnormal Lab Results - Last 24 Hours (Table) 01/04/20 01/04/20 Range/Units 07:32 07:32 WBC 13.8 H (3.8-10.6) k/uL RBC 2.88 L (4.30-5.90) m/uL Hgb 9.2 L (13.0-17.5) gm/dL Hct 29.0 L (39.0-53.0) % MCV 100.5 H (80.0-100.0) fL Plt Count 511 H (150-450) k/uL Neutrophils # 12.7 H (1.3-7.7) k/uL Lymphocytes # 0.4 L (1.0-4.8) k/uL BUN 21 H (9-20) mg/dL Creatinine 0.48 L (0.66-1.25) mg/dL Glucose 157 H (74-99) mg/dL Assessment and Plan Assessment: 1. Acute exacerbation COPD - Patient is started on Solu-Medrol 60 mg IV every 6 hours; continue with DuoNeb nebulizer treatments 4 times a day and when necessary 2. Suspicion for COVID 19 infection; negative PCR; 3. Recent injury left lower extremity/ laceration; stable 4. 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 History of PE/DVT; continue with anticoagulation with Eliquis 7. Hypertension; amlodipine 10 mg daily along with metoprolol 25 mg twice a day 8. History of CVA/TIA; continue with aspirin and statin therapy 9. Hyperlipidemia; atorvastatin 10 mg by mouth daily at bedtime DVT prophylaxis; systemic anticoagulation with Eliquis CODE STATUS; full code Time with Patient: Greater than 30
[2020-01-06] MEDS: methylPREDNISolone SOD SUCCI 125 MG/2 ML VIAL IV SCH ×5 (00:13→23:30)
[2020-01-06 06:21] LABS: Basophils % (A) 0 %; Eosinophils % (A) 0 %; HCT 30.2 % (39.0-53.0); HGB 9.4 gm/dL (13.0-17.5); Hypochromasia Slight; Lymphocytes # (A) 0.5 k/uL (1.0-4.8); Lymphocytes % (A) 3 %; MCH 30.5 pg (25.0-35.0); MCHC 31.1 g/dL (31.0-37.0); MCV 98.3 fL (80.0-100.0); Mean Platelet Volume 6.5; Monocytes # (A) 0.8 k/uL (0-1.0); Monocytes % (A) 5 %; Neutrophils # (A) 13.4 k/uL (1.3-7.7); Neutrophils % (A) 91 %; Platelet Count 573 k/uL (150-450); RBC 3.07 m/uL (4.30-5.90); RDW 14.2 % (11.5-15.5); WBC 14.9 k/uL (3.8-10.6)
[2020-01-06] MEDS: IPRATROPIUM-ALBUTEROL 3 ML NEB INHALATION SCH ×4 (07:55→19:54)
[2020-01-06] MEDS: amLODIPine 10 MG TAB PO SCH (08:02)
[2020-01-06] MEDS: APIXABAN 5 MG TAB PO SCH ×2 (08:02→21:38)
[2020-01-06] MEDS: PANTOPRAZOLE 40 MG TABLET PO SCH (08:03)
[2020-01-06] MEDS: GABAPENTIN 400 MG CAP PO SCH ×3 (08:03→21:38)
[2020-01-06] MEDS: METOPROLOL TARTRATE 25 MG TAB PO SCH ×2 (08:03→21:38)
[2020-01-06] MEDS: ASPIRIN 81 MG PO SCH (08:03)
[2020-01-06] MEDS: FOLIC ACID 1 MG TAB PO SCH (08:03)
[2020-01-06] MEDS: ATORVASTATIN 10 MG TAB PO SCH (08:03)
[2020-01-06] MEDS: ESCITALOPRAM 10 MG TAB PO SCH (08:03)
[2020-01-06] MEDS: ACETAMINOPHEN TAB 325 MG TAB PO PRN ×2 (08:06→21:42)
[2020-01-06] MEDS: METHOCARBAMOL 750 MG TAB PO SCH (21:38)
[2020-01-06] MEDS: ALPRAZolam 0.25 MG TAB PO PRN (21:42)
--- NOTE | 2020-01-07 00:41 | P.PN ---
Subjective Progress Note Date: 01/05/20 Principal diagnosis: Acute COPD exacerbation 59-year-old male patient with past medical history significant for COPD and pulmonary embolism presents to the emergency department today for evaluation of shortness of breath. Patient states he started having increasing difficulty with breathing over the last few hours. States he did do 6 breathing treatments at home without relief. States that he does have a chronic cough denies sputum production. Denies any fever or chills. Denies any chest pain or pressure with this. Denies any increased leg swelling or pain. Does take Eliquis for history of PE. States he was diagnosed 2 months ago with the pulmonary embolism. Patient denies any recent rash, abdominal pain, nausea, vomiting, diarrhea, constipation, back pain, numbness, tingling, dizziness, weakness, hematuria, dysuria, urinary urgency, urinary frequency, headache, visual changes, or any other complaints. 01/04/2020 Patient states that he is still short of breath and exhausted. Complains of pain and requesting IV pain medications. Otherwise patient is afebrile. No complaints of chest pain. Cough without much sputum production. CT angiogram of the chest showed bullous emphysema. Right upper lobe pleural and pulmonary scarring. Right upper lobe nodule. Nodule is nonspecific. Pulmonary is following. Patient is being continued on IV steroids and breathing treatments and oxygen therapy. 01/04/2020 Patient is currently lying in the bed comfortably. Still complains of exertional dyspnea tiredness and weakness. Requesting pain medications. Otherwise patient is being continued on steroids and breathing treatments. Oxygen therapy. Patient is afebrile. Cough without sputum production. WBC count 14.7 today. Hemoglobin is stable. Currently 96% on 3 L oxygen. Current medications reviewed. Objective - Vital Signs Vital signs: Vital Signs Temp 97.8 F 01/05/20 19:01 Pulse 88 01/05/20 19:53 Resp 15 01/05/20 19:01 BP 135/79 01/05/20 19:01 Pulse Ox 99 01/05/20 19:01 Intake & Output 01/05/20 01/05/20 01/06/20 06:59 18:59 06:59 Intake Total 1114 Output Total 700 Balance 414 Intake: Oral 1114 Output: Urine 700 Other: Voiding Method Toilet Urinal # Voids 3 - Exam - Constitutional General appearance: Present: average body habitus, cooperative, no acute distress - EENT Eyes: Present: anicteric sclerae, EOMI, PERRLA on Rt eye , Patient has a prosthetic right eye. ENT: Present: hearing grossly normal, normal oropharynx Ears: bilateral: normal - Neck Neck: Present: normal ROM. Absent: lymphadenopathy, rigidity, thyromegaly Carotids: negative: bruit present Thyroid: bilateral: normal size, negative: enlarged, nodule - Respiratory Respiratory: bilateral: b/l: rales, rhonchi, wheezing. non labored - Cardiovascular Rhythm: regular Heart sounds: normal: S1, S2 Abnormal Heart Sounds: Absent: systolic murmur, diastolic murmur - Gastrointestinal General gastrointestinal: Present: normal bowel sounds, soft. Absent: distended, organomegaly, tenderness - Genitourinary Genitourinary Comment(s): deferred - Integumentary Integumentary: Present: normal turgor. Absent: jaundiced, rash, ulcer - Neurologic Neurologic: Present: CNII-XII intact. Absent: focal deficits - Musculoskeletal Musculoskeletal: Present: gait normal, strength equal bilaterally - Psychiatric Psychiatric: Present: A&O x's 3, appropriate affect, intact judgment & insight - Labs CBC & Chem 7: 01/06/20 05:56 01/05/20 07:13 Labs: Abnormal Lab Results - Last 24 Hours (Table) 01/05/20 01/05/20 Range/Units 07:13 07:13 WBC 14.7 H (3.8-10.6) k/uL RBC 2.97 L (4.30-5.90) m/uL Hgb 9.2 L (13.0-17.5) gm/dL Hct 29.4 L (39.0-53.0) % Plt Count 532 H (150-450) k/uL Neutrophils # 13.6 H (1.3-7.7) k/uL Lymphocytes # 0.5 L (1.0-4.8) k/uL Sodium 136 L (137-145) mmol/L Creatinine 0.40 L (0.66-1.25) mg/dL Glucose 131 H (74-99) mg/dL Assessment and Plan Assessment: 1. Acute exacerbation COPD - Patient is started on Solu-Medrol 60 mg IV every 6 hours; continue with DuoNeb nebulizer treatments 4 times a day and when necessary 2. Suspicion for COVID 19 infection; negative PCR; 3. Recent injury left lower extremity/ laceration; stable 4. 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 History of PE/DVT; continue with anticoagulation with Eliquis 7. Hypertension; amlodipine 10 mg daily along with metoprolol 25 mg twice a day 8. History of CVA/TIA; continue with aspirin and statin therapy 9. Hyperlipidemia; atorvastatin 10 mg by mouth daily at bedtime DVT prophylaxis; systemic anticoagulation with Eliquis CODE STATUS; full code Time with Patient: Greater than 30
--- NOTE | 2020-01-07 00:43 | P.PN ---
Subjective Progress Note Date: 01/06/20 Principal diagnosis: Acute COPD exacerbation 59-year-old male patient with past medical history significant for COPD and pulmonary embolism presents to the emergency department today for evaluation of shortness of breath. Patient states he started having increasing difficulty with breathing over the last few hours. States he did do 6 breathing treatments at home without relief. States that he does have a chronic cough denies sputum production. Denies any fever or chills. Denies any chest pain or pressure with this. Denies any increased leg swelling or pain. Does take Eliquis for history of PE. States he was diagnosed 2 months ago with the pulmonary embolism. Patient denies any recent rash, abdominal pain, nausea, vomiting, diarrhea, constipation, back pain, numbness, tingling, dizziness, weakness, hematuria, dysuria, urinary urgency, urinary frequency, headache, visual changes, or any other complaints. 01/04/2020 Patient states that he is still short of breath and exhausted. Complains of pain and requesting IV pain medications. Otherwise patient is afebrile. No complaints of chest pain. Cough without much sputum production. CT angiogram of the chest showed bullous emphysema. Right upper lobe pleural and pulmonary scarring. Right upper lobe nodule. Nodule is nonspecific. Pulmonary is following. Patient is being continued on IV steroids and breathing treatments and oxygen therapy. 01/04/2020 Patient is currently lying in the bed comfortably. Still complains of exertional dyspnea tiredness and weakness. Requesting pain medications. Otherwise patient is being continued on steroids and breathing treatments. Oxygen therapy. Patient is afebrile. Cough without sputum production. WBC count 14.7 today. Hemoglobin is stable. Currently 96% on 3 L oxygen. 01/06/2020 Patient states that she feels better today but not at his baseline. Still complains of exertional dyspnea. Otherwise wheezing improved compared to yesterday on examination. Patient is being continued on IV steroids, breathing treatments and oxygen therapy. Patient has been afebrile. WBC around 14.7. Currently on 3 L oxygen via nasal cannula. No chest pain. No nausea vomiting or abdominal pain. No diarrhea. Current medications reviewed. Objective - Vital Signs Vital signs: Vital Signs Temp 98.6 F 01/06/20 19:25 Pulse 90 01/06/20 20:08 Resp 16 01/06/20 19:26 BP 139/81 01/06/20 19:25 Pulse Ox 96 01/06/20 19:25 Intake & Output 01/06/20 01/06/20 01/07/20 06:59 18:59 06:59 Intake Total 1080 Output Total 800 Balance -800 1080 Intake: Oral 1080 Output: Urine 800 Other: Voiding Method Toilet Toilet Urinal Urinal # Voids 1 2 # Bowel Movements 1 - Exam - Constitutional General appearance: Present: average body habitus, cooperative, no acute distress - EENT Eyes: Present: anicteric sclerae, EOMI, PERRLA on Rt eye , Patient has a prosthetic right eye. ENT: Present: hearing grossly normal, normal oropharynx Ears: bilateral: normal - Neck Neck: Present: normal ROM. Absent: lymphadenopathy, rigidity, thyromegaly Carotids: negative: bruit present Thyroid: bilateral: normal size, negative: enlarged, nodule - Respiratory Respiratory: bilateral: b/l: rales, rhonchi, wheezing. non labored - Cardiovascular Rhythm: regular Heart sounds: normal: S1, S2 Abnormal Heart Sounds: Absent: systolic murmur, diastolic murmur - Gastrointestinal General gastrointestinal: Present: normal bowel sounds, soft. Absent: distended, organomegaly, tenderness - Genitourinary Genitourinary Comment(s): deferred - Integumentary Integumentary: Present: normal turgor. Absent: jaundiced, rash, ulcer - Neurologic Neurologic: Present: CNII-XII intact. Absent: focal deficits - Musculoskeletal Musculoskeletal: Present: gait normal, strength equal bilaterally - Psychiatric Psychiatric: Present: A&O x's 3, appropriate affect, intact judgment & insight - Labs CBC & Chem 7: 01/06/20 05:56 01/05/20 07:13 Labs: Abnormal Lab Results - Last 24 Hours (Table) 01/06/20 Range/Units 05:56 WBC 14.9 H (3.8-10.6) k/uL RBC 3.07 L (4.30-5.90) m/uL Hgb 9.4 L (13.0-17.5) gm/dL Hct 30.2 L (39.0-53.0) % Plt Count 573 H (150-450) k/uL Neutrophils # 13.4 H (1.3-7.7) k/uL Lymphocytes # 0.5 L (1.0-4.8) k/uL Assessment and Plan Assessment: 1. Acute exacerbation COPD - Patient is started on Solu-Medrol 60 mg IV every 6 hours; continue with DuoNeb nebulizer treatments 4 times a day and when necessary 2. Suspicion for COVID 19 infection; negative PCR; 3. Recent injury left lower extremity/ laceration; stable 4. 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 History of PE/DVT; continue with anticoagulation with Eliquis 7. Hypertension; amlodipine 10 mg daily along with metoprolol 25 mg twice a day 8. History of CVA/TIA; continue with aspirin and statin therapy 9. Hyperlipidemia; atorvastatin 10 mg by mouth daily at bedtime DVT prophylaxis; systemic anticoagulation with Eliquis CODE STATUS; full code Time with Patient: Greater than 30
[2020-01-07] MEDS: methylPREDNISolone SOD SUCCI 125 MG/2 ML VIAL IV SCH ×2 (06:17→14:16)
[2020-01-07] MEDS: IPRATROPIUM-ALBUTEROL 3 ML NEB INHALATION SCH ×4 (07:35→19:44)
[2020-01-07 08:06] LABS: Basophils # (A) 0.1 k/uL (0-0.2); Basophils % (A) 1 %; Eosinophils % (A) 0 %; HCT 31.4 % (39.0-53.0); HGB 10.1 gm/dL (13.0-17.5); Hypochromasia Slight; Lymphocytes # (A) 0.6 k/uL (1.0-4.8); Lymphocytes % (A) 4 %; MCH 31.2 pg (25.0-35.0); MCHC 32.1 g/dL (31.0-37.0); MCV 97.1 fL (80.0-100.0); Mean Platelet Volume 6.4; Monocytes # (A) 0.7 k/uL (0-1.0); Monocytes % (A) 5 %; Neutrophils # (A) 13.8 k/uL (1.3-7.7); Neutrophils % (A) 90 %; Platelet Count 641 k/uL (150-450); RBC 3.23 m/uL (4.30-5.90); RDW 14.3 % (11.5-15.5); WBC 15.3 k/uL (3.8-10.6)
[2020-01-07] MEDS: ESCITALOPRAM 10 MG TAB PO SCH (08:55)
[2020-01-07] MEDS: PANTOPRAZOLE 40 MG TABLET PO SCH (08:55)
[2020-01-07] MEDS: ATORVASTATIN 10 MG TAB PO SCH (08:55)
[2020-01-07] MEDS: amLODIPine 10 MG TAB PO SCH (08:55)
[2020-01-07] MEDS: ASPIRIN 81 MG PO SCH (08:55)
[2020-01-07] MEDS: APIXABAN 5 MG TAB PO SCH ×2 (08:55→21:40)
[2020-01-07] MEDS: METOPROLOL TARTRATE 25 MG TAB PO SCH ×2 (08:55→21:40)
[2020-01-07] MEDS: FOLIC ACID 1 MG TAB PO SCH (08:55)
[2020-01-07] MEDS: GABAPENTIN 400 MG CAP PO SCH ×2 (08:56→17:22)
[2020-01-07] MEDS: ALPRAZolam 0.25 MG TAB PO PRN (09:00)
[2020-01-07] MEDS: ACETAMINOPHEN TAB 325 MG TAB PO PRN (09:00)
[2020-01-07] MEDS: methylPREDNISolone SOD SUCCI 40 MG/ML 1 ML VIAL IV SCH (17:23)
[2020-01-07] MEDS: METHOCARBAMOL 750 MG TAB PO SCH (21:41)
[2020-01-08] MEDS: GABAPENTIN 400 MG CAP PO SCH ×2 (00:30→08:46)
[2020-01-08] MEDS: methylPREDNISolone SOD SUCCI 40 MG/ML 1 ML VIAL IV SCH ×2 (00:30→08:45)
[2020-01-08] MEDS: IPRATROPIUM-ALBUTEROL 3 ML NEB INHALATION PRN ×2 (00:30→03:27)
--- NOTE | 2020-01-08 00:59 | P.PN ---
Subjective Progress Note Date: 01/07/20 Principal diagnosis: Acute COPD exacerbation 59-year-old male patient with past medical history significant for COPD and pulmonary embolism presents to the emergency department today for evaluation of shortness of breath. Patient states he started having increasing difficulty with breathing over the last few hours. States he did do 6 breathing treatments at home without relief. States that he does have a chronic cough denies sputum production. Denies any fever or chills. Denies any chest pain or pressure with this. Denies any increased leg swelling or pain. Does take Eliquis for history of PE. States he was diagnosed 2 months ago with the pulmonary embolism. Patient denies any recent rash, abdominal pain, nausea, vomiting, diarrhea, constipation, back pain, numbness, tingling, dizziness, weakness, hematuria, dysuria, urinary urgency, urinary frequency, headache, visual changes, or any other complaints. 01/04/2020 Patient states that he is still short of breath and exhausted. Complains of pain and requesting IV pain medications. Otherwise patient is afebrile. No complaints of chest pain. Cough without much sputum production. CT angiogram of the chest showed bullous emphysema. Right upper lobe pleural and pulmonary scarring. Right upper lobe nodule. Nodule is nonspecific. Pulmonary is following. Patient is being continued on IV steroids and breathing treatments and oxygen therapy. 01/04/2020 Patient is currently lying in the bed comfortably. Still complains of exertional dyspnea tiredness and weakness. Requesting pain medications. Otherwise patient is being continued on steroids and breathing treatments. Oxygen therapy. Patient is afebrile. Cough without sputum production. WBC count 14.7 today. Hemoglobin is stable. Currently 96% on 3 L oxygen. 01/06/2020 Patient states that she feels better today but not at his baseline. Still complains of exertional dyspnea. Otherwise wheezing improved compared to yesterday on examination. Patient is being continued on IV steroids, breathing treatments and oxygen therapy. Patient has been afebrile. WBC around 14.7. Currently on 3 L oxygen via nasal cannula. No chest pain. No nausea vomiting or abdominal pain. No diarrhea. 01/07/2020 Patient's breathing status is better not back to baseline. Expiratory wheezing is present but air entry is much improved. Currently being continued on IV steroids and breathing treatments. WBC count is at 15.3 today. Patient has been afebrile. Previous sputum cultures showed Corynebacterium species. Antic ipate discharge in the next 24 hours.. Current medications reviewed. Objective - Vital Signs Vital signs: Vital Signs Temp 97.4 F L 01/07/20 19:24 Pulse 93 01/07/20 21:40 Resp 16 01/07/20 19:24 BP 132/78 01/07/20 21:40 Pulse Ox 99 01/07/20 19:24 Intake & Output 01/07/20 01/07/20 01/08/20 06:59 18:59 06:59 Intake Total 540 Output Total 400 400 Balance -400 140 Intake: Oral 540 Output: Urine 400 400 Other: Voiding Method Toilet Toilet Urinal Urinal Urinal # Voids 2 - Exam - Constitutional General appearance: Present: average body habitus, cooperative, no acute distress - EENT Eyes: Present: anicteric sclerae, EOMI, PERRLA on Rt eye , Patient has a prosthetic right eye. ENT: Present: hearing grossly normal, normal oropharynx Ears: bilateral: normal - Neck Neck: Present: normal ROM. Absent: lymphadenopathy, rigidity, thyromegaly Carotids: negative: bruit present Thyroid: bilateral: normal size, negative: enlarged, nodule - Respiratory Respiratory: bilateral: b/l: rales, rhonchi, wheezing. non labored - Cardiovascular Rhythm: regular Heart sounds: normal: S1, S2 Abnormal Heart Sounds: Absent: systolic murmur, diastolic murmur - Gastrointestinal General gastrointestinal: Present: normal bowel sounds, soft. Absent: distended, organomegaly, tenderness - Genitourinary Genitourinary Comment(s): deferred - Integumentary Integumentary: Present: normal turgor. Absent: jaundiced, rash, ulcer - Neurologic Neurologic: Present: CNII-XII intact. Absent: focal deficits - Musculoskeletal Musculoskeletal: Present: gait normal, strength equal bilaterally - Psychiatric Psychiatric: Present: A&O x's 3, appropriate affect, intact judgment & insight - Labs CBC & Chem 7: 01/07/20 07:11 01/05/20 07:13 Labs: Abnormal Lab Results - Last 24 Hours (Table) 01/07/20 Range/Units 07:11 WBC 15.3 H (3.8-10.6) k/uL RBC 3.23 L (4.30-5.90) m/uL Hgb 10.1 L (13.0-17.5) gm/dL Hct 31.4 L (39.0-53.0) % Plt Count 641 H (150-450) k/uL Neutrophils # 13.8 H (1.3-7.7) k/uL Lymphocytes # 0.6 L (1.0-4.8) k/uL Assessment and Plan Assessment: 1. Acute exacerbation COPD - Patient is started on Solu-Medrol 60 mg IV every 6 hours; continue with DuoNeb nebulizer treatments 4 times a day and when necessary 2. Suspicion for COVID 19 infection; negative PCR; 3. Recent injury left lower extremity/ laceration; stable 4. 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 History of PE/DVT; continue with anticoagulation with Eliquis 7. Hypertension; amlodipine 10 mg daily along with metoprolol 25 mg twice a day 8. History of CVA/TIA; continue with aspirin and statin therapy 9. Hyperlipidemia; atorvastatin 10 mg by mouth daily at bedtime DVT prophylaxis; systemic anticoagulation with Eliquis CODE STATUS; full code Time with Patient: Greater than 30
[2020-01-08 07:41] VITALS: BP 126/56; RESP 16; TEMP 98.1
[2020-01-08] MEDS: IPRATROPIUM-ALBUTEROL 3 ML NEB INHALATION SCH ×2 (08:32→11:47)
[2020-01-08] MEDS: ESCITALOPRAM 10 MG TAB PO SCH (08:45)
[2020-01-08] MEDS: FOLIC ACID 1 MG TAB PO SCH (08:46)
[2020-01-08] MEDS: amLODIPine 10 MG TAB PO SCH (08:46)
[2020-01-08] MEDS: APIXABAN 5 MG TAB PO SCH (08:46)
[2020-01-08] MEDS: METOPROLOL TARTRATE 25 MG TAB PO SCH (08:46)
[2020-01-08] MEDS: ASPIRIN 81 MG PO SCH (08:46)
[2020-01-08] MEDS: ATORVASTATIN 10 MG TAB PO SCH (08:46)
[2020-01-08] MEDS: PANTOPRAZOLE 40 MG TABLET PO SCH (08:46)
[2020-01-08 10:40] LABS: African American GFR (CKD) >90 (>60 ml/min/1.73 sqM); Anion Gap 6 mmol/L; Blood Urea Nitrogen 28 mg/dL (9-20); Calcium 8.7 mg/dL (8.4-10.2); Carbon Dioxide 33 mmol/L (22-30); Chloride 94 mmol/L (98-107); Glucose 177 mg/dL (74-99); Non-African American GFR(CKD) >90 (>60 ml/min/1.73 sqM); Potassium 4.3 mmol/L (3.5-5.1); Sodium 133 mmol/L (137-145)
[2020-01-08 11:50] VITALS: PULSE 84
[2020-01-08 12:00] LABS: HCT 33.1 % (39.0-53.0); HGB 10.1 gm/dL (13.0-17.5); Hypochromasia Slight; MCH 29.7 pg (25.0-35.0); MCHC 30.5 g/dL (31.0-37.0); MCV 97.3 fL (80.0-100.0); Platelet Count 610 k/uL (150-450); RDW 14.2 % (11.5-15.5)
[2020-01-08] MEDS ORDERED: predniSONE 20 MG TAB PO SCH (12:00)
[2020-01-08 14:39] LABS: Band Neutrophils % 2 %; Metamyelocytes # (M) 0.33 k/uL (0); Metamyelocytes % 2 %; Myelocytes # (M) 0.17 k/uL (0); Myelocytes % 1 %; Neutrophils % (M) 84 %; Nucleated Red Blood Cells 1 /100 WBC (0-0); Total Cells Counted 200
[2020-01-08 14:40] LABS: Lymphocytes # (M) 0.99 k/uL (1.0-4.8); Monocytes # (M) 0.99 k/uL (0-1.0); WBC 16.5 k/uL (3.8-10.6)
[2020-01-08 14:41] LABS: Polychromasia Present
--- NOTE | 2020-01-12 14:03 | CDI ---
Documentation Clarification Form Date: 01/12/2020 01:24:00 PM From: Kaye Branch RN, CCDS Admit Date: 01/04/2020 07:58:00 AM Patient Name: Junior Mallory Visit Number: [id number] Discharge Date: 01/08/2020 03:07:00 PM ATTENTION: The Clinical Documentation Specialists (CDI) and [facility] Coding Staff appreciate your assistance in clarifying documentation. Please respond to the clarification below the line at the bottom and electronically sign. The CDI & [facility] Coding staff will review the response and follow-up if needed. Please note: Queries are made part of the Legal Health Record. If you have any questions, please contact the author of this message via ITS. Dr. uV Gerardo Suspicion for COVID 19 infection: negative PCR is documented in your progress note beginning on 01/03 and continue on 01/06 and further clarification is indicated to rule Covid 19 in or out is requested. Patient history/risk factors: COPD, Pneumonia, Chronic Hypoxic respiratory failure, Clinical Indicators: 59-year-old male who present to ED on 01/01 with complaints of increasing shortness of breath. He has a chronic cough. CTA: 01/01: bullous emphysema. Right upper lobe pleural and pulmonary scarring. Right upper lobe nodule. No Pulmonary embolism 01/01 Labs: WBC 8.2, Lactic acid 2.1 01/01 Viral Panel: Coronavirus Not Detected 01/03 admission @07:00 Vital Signs: 128/74 94 16 98.1 97 % 4/L NC Treatment: Continue isolation until Covid testing result. Solu-medrol 60 IV q 6 hrs (taper to po prednisone 40 mg po daily) DuoNeb Nebulizer qid prn 01/02 Pulmonary consult: Acute exacerbation of COPD. 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 Recent discharge form extended care facility, COVID 19 test pending. In order to capture the severity of condition, please clarify if the above treatment/clinical indicators signify: COVID-19 ruled out COVID-19 confirmed Other, please specify Unable to determine (Last Form Revision: October 2019) COVID-19 ruled out MTDD
== END 2020-01-08 15:07 | disposition home health service (06) | DRG 191 ==
LOC: EC 17:32 → 4SSUR 20:05 → OBSVTOIN 01-04 07:58
PROVIDERS: ADMIT Internal Medicine; ATTEND Internal Medicine
DX: J44.1 Chronic obstructive pulmonary disease with (acute) exacerbation (principal); J96.11 Chronic respiratory failure with hypoxia; E87.1 Hypo-osmolality and hyponatremia; M87.9 Osteonecrosis, unspecified; Z20.828 Contact with and (suspected) exposure to other viral communicable diseases; Z99.81 Dependence on supplemental oxygen; Z79.4 Long term (current) use of insulin; E11.9 Type 2 diabetes mellitus without complications; I10 Essential (primary) hypertension; F41.0 Panic disorder [episodic paroxysmal anxiety]; F32.9 Major depressive disorder, single episode, unspecified; H54.61 Unqualified visual loss, right eye, normal vision left eye; R00.0 Tachycardia, unspecified; E78.5 Hyperlipidemia, unspecified; B02.9 Zoster without complications; F17.210 Nicotine dependence, cigarettes, uncomplicated; K21.9 Gastro-esophageal reflux disease without esophagitis; I25.2 Old myocardial infarction; Z79.899 Other long term (current) drug therapy; Z79.82 Long term (current) use of aspirin; Z79.51 Long term (current) use of inhaled steroids; Z79.01 Long term (current) use of anticoagulants; Z86.73 Personal history of transient ischemic attack (TIA), and cerebral infarction without residual deficits; Z86.711 Personal history of pulmonary embolism; Z86.718 Personal history of other venous thrombosis and embolism; Z87.09 Personal history of other diseases of the respiratory system; Z87.01 Personal history of pneumonia (recurrent); Z87.81 Personal history of (healed) traumatic fracture; Z98.890 Other specified postprocedural states; Z91.018 Allergy to other foods; Z91.010 Allergy to peanuts; Z80.51 Family history of malignant neoplasm of kidney; Z80.8 Family history of malignant neoplasm of other organs or systems; Z82.5 Family history of asthma and other chronic lower respiratory diseases
CPT/HCPCS: 36415; 71275; 80048; 80053; 83605; 83735; 83880; 84484; 85025; 85610; 85730; 87635; 93005; 94640; 96374; 99285

== ENCOUNTER 2020-01-09 16:12 | Inpatient (IN) | payer OTHER ==
[2020-01-09] MEDS ORDERED: IPRATROPIUM 0.5 MG/2.5 ML NEBU INHALATION STA (16:33)
[2020-01-09] MEDS ORDERED: ALBUTEROL NEBULIZED 2.5 MG/3 ML INHALATION STA (16:33)
--- NOTE | 2020-01-09 16:39 | ED ---
General Adult HPI - General Chief complaint: Shortness of Breath Stated complaint: CLEMENCIA Time Seen by Provider: 01/09/20 16:20 Source: patient, EMS Mode of arrival: EMS Limitations: no limitations - History of Present Illness Initial comments: Dictation was produced using [employer] dictation software. please excuse any grammatical, word or spelling errors. This patient was cared for during a federal and state declared state of emergency secondary to Covid 19 Chief Complaint: 59-year-old male with extensive COPD presents with dyspnea for the last several days. History of Present Illness: 59-year-old male he is well-known to our emergency department. Patient has history of significant COPD. He has been admitted on multiple occasions for the same complaints. Patient states he has been short of breath for the last couple days. Denies any fever, chills or night sweats. Does have some mild dry cough that production of sputum. No known contact with anyone who has run a virus or coronavirus-type symptoms. EMS was called and johnathon ma was brought to the emergency department patient was administered site Medrol and breathing treatment. Patient normally wears 2-3 L of nasal cannula oxygen at home. The ROS documented in this emergency department record has been reviewed and confirmed by me. Those systems with pertinent positive or negative responses have been documented in the HPI. All other systems are other negative and/or noncontributory. PHYSICAL EXAM: General Impression: Alert and oriented x3, dyspneic HEENT: Normocephalic atraumatic, extra-ocular movements intact, pupils equal and reactive to light bilaterally, mucous membranes moist. Cardiovascular: Heart regular rate and rhythm, no murmurs Chest: Able to complete 2-3 word sentences, mild retractions, very poor air exchange with wheezing Abdomen: abdomen soft, non-tender, non-distended, no organomegaly Musculoskeletal: Pulses present and equal in all extremities, no peripheral edema Motor: no focal deficits noted Neurological: CN II-XII grossly intact, no focal motor or sensory deficits noted Skin: Intact with no visualized rashes Psych: Anxious ED course: 59-year-old male clinical presentation consistent with COPD exacerbation. Signs upon arrival shows her to 134, respiratory rate 26, rest of vital signs within acceptable limits. Patient is satting 97% on 6 L nasal cannula. Clinical presentation concerning for acute hypoxic respiratory failure secondary to COPD. Patient is in mild to moderate respiratory distress. BiPAP placed. Patient given continue breathing treatments. EKG shows sinus tachycardia.Laboratory evaluation obtained. Patient is leukocytosis 25.5. This is likely from steroid administration. Venous blood gas shows pH is 7.45 with a bicarb of 32. Metabolic panel shows an 131 rest of labs are at patient's base line. Chest x-ray is nonacute. Patient reevaluated at bedside. He is improved however he still showing signs of respiratory distress. Patient be admitted for COPD exacerbation. Discussed patient case with Susan of [facility] is willing to accept patients care. EKG interpretation: Ventricular rate 133, sinus tachycardia,. Interval 116, QRS 74, QTC 437. No IA prolongation, no QTC prolongation, no ST or T-wave changes noted. EKG compared to 01/02/2020 showing no changes. Overall, this EKG is u nremarkable - Related Data Home Medications Medication Instructions Recorded Confirmed amLODIPine [Norvasc] 10 mg PO DAILY 04/29/19 01/03/20 Melatonin 10 mg PO HS 08/12/19 01/03/20 Aspirin EC [Ecotrin Low Dose] 81 mg PO DAILY 10/20/19 01/03/20 Folic Acid 1 mg PO DAILY 10/20/19 01/03/20 Meclizine [Antivert] 12.5 mg PO Q12H 10/20/19 01/03/20 Pantoprazole Sodium [Protonix] 40 mg PO DAILY 10/20/19 01/03/20 Budesonide-Formot 160-4.5 Mcg 2 puff INHALATION RT-BID 01/03/20 01/03/20 [Symbicort 160-4.5 Mcg Inhaler] INSULIN ASPART (NovoLOG) [NovoLOG See Protocol SQ ACHS 01/03/20 01/03/20 (formulary)] Methocarbamol [Robaxin-750] 750 mg PO HS 01/03/20 01/03/20 Previous Rx's Medication Instructions Recorded Escitalopram [Lexapro] 10 mg PO DAILY #15 tab 05/15/19 Metoprolol Tartrate [Lopressor] 25 mg PO BID #60 tab 09/30/19 Atorvastatin [Lipitor] 10 mg PO DAILY tab 10/23/19 Montelukast [Singulair] 10 mg PO HS tab 10/23/19 Nicotine 14Mg/24Hr Patch [Habitrol] 1 patch TRANSDERM DAILY patch 10/23/19 ALPRAZolam [Xanax] 0.25 mg PO BID PRN #3 tab 12/01/19 Apixaban [Eliquis] 5 mg PO BID 30 Days #60 tab 12/01/19 Gabapentin 800 mg PO TID #3 tab 12/01/19 HYDROcodone/APAP 7.5-325MG [[place] 1 tab PO Q6HR PRN 3 Days #12 tab 12/01/19 7.5-325] Ipratropium-Albuterol Nebulize 3 ml INHALATION RT-Q4H PRN ml 12/01/19 [Duoneb 0.5 mg-3 mg/3 ml Soln] Ipratropium-Albuterol Nebulize 3 ml INHALATION RT-QID 30 Days neb 01/08/20 [Duoneb 0.5 mg-3 mg/3 ml Soln] predniSONE See Taper PO DIRECTED #26 tab 01/08/20 Allergies Allergy/AdvReac Type Severity Reaction Status Date / Time tree nut [Nut] Allergy Unknown Dyspnea, Verified 01/09/20 16:17 Rash/Hives peanut [Peanut Butter] AdvReac Dyspnea, Verified 01/09/20 16:17 Rash/Hives Review of Systems ROS Statement: Those systems with pertinent positive or pertinent negative responses have been documented in the HPI. ROS Other: All systems not noted in ROS Statement are negative. 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 Last Myocardial Infarction Date:: unknown History of Any Multi-Drug Resistant Organisms: None Reported Past Surgical History: Orthopedic Surgery Additional Past Surgical History / Comment(s): metal plate left hand middle finger, right eye enucleation. Past Anesthesia/Blood Transfusion Reactions: No Reported Reaction Past Psychological History: Anxiety, Depression, Panic Disorder Smoking Status: Former smoker Past Alcohol Use History: None Reported, Occasional Past Drug Use History: Marijuana - Past Family History Mother Family Medical History: Cancer Additional Family Medical History / Comment(s): Pt believes his Mom of Kidney Cancer Father Family Medical History: Cancer, COPD, Respiratory Disorder Additional Family Medical History / Comment(s): Melanoma General Exam Limitations: no limitations Course Vital Signs 01/09/20 01/09/20 01/09/20 16:17 16:50 16:59 Temperature 98.2 F Pulse Rate 134 H 108 H 109 H Respiratory 26 H Rate Blood Pressure 178/108 O2 Sat by Pulse 97 Oximetry Medical Decision Making - Lab Data Result diagrams: 01/09/20 16:28 01/09/20 16:28 Lab Results 01/09/20 01/09/20 01/09/20 Range/Units 16:28 16:28 16:28 WBC 25.5 H (3.8-10.6) k/uL RBC 3.67 L (4.30-5.90) m/uL Hgb 11.4 L (13.0-17.5) gm/dL Hct 35.4 L (39.0-53.0) % MCV 96.3 (80.0-100.0) fL MCH 30.9 (25.0-35.0) pg MCHC 32.1 (31.0-37.0) g/dL RDW 14.8 (11.5-15.5) % Plt Count 714 H (150-450) k/uL Neutrophils % (Manual) 82 % Band Neutrophils % 2 % Lymphocytes % (Manual) 9 % Monocytes % (Manual) 6 % Metamyelocytes % 2 % Neutrophils # (Manual) 21.40 H (1.3-7.7) k/uL Lymphocytes # (Manual) 2.30 (1.0-4.8) k/uL Monocytes # (Manual) 1.53 H (0-1.0) k/uL Metamyelocytes # (Man) 0.51 H (0) k/uL Nucleated RBCs 0 (0-0) /100 WBC Manual Slide Review Performed Hypochromasia Slight VBG pH (7.31-7.41) VBG pCO2 (37-51) mmHg VBG HCO3 (24-28) mmol/L Sodium 131 L (137-145) mmol/L Potassium 4.7 (3.5-5.1) mmol/L Chloride 89 L (98-107) mmol/L Carbon Dioxide 31 H (22-30) mmol/L Anion Gap 11 mmol/L BUN 21 H (9-20) mg/dL Creatinine 0.49 L (0.66-1.25) mg/dL Est GFR (CKD-EPI)AfAm >90 (>60 ml/min/1.73 sqM) Est GFR (CKD-EPI)NonAf >90 (>60 ml/min/1.73 sqM) Glucose 101 H (74-99) mg/dL Calcium 9.5 (8.4-10.2) mg/dL NT-Pro-B Natriuret Pep 410 pg/mL 01/09/20 Range/Units 16:55 WBC (3.8-10.6) k/uL RBC (4.30-5.90) m/uL Hgb (13.0-17.5) gm/dL Hct (39.0-53.0) % MCV (80.0-100.0) fL MCH (25.0-35.0) pg MCHC (31.0-37.0) g/dL RDW (11.5-15.5) % Plt Count (150-450) k/uL Neutrophils % (Manual) % Band Neutrophils % % Lymphocytes % (Manual) % Monocytes % (Manual) % Metamyelocytes % % Neutrophils # (Manual) (1.3-7.7) k/uL Lymphocytes # (Manual) (1.0-4.8) k/uL Monocytes # (Manual) (0-1.0) k/uL Metamyelocytes # (Man) (0) k/uL Nucleated RBCs (0-0) /100 WBC Manual Slide Review Hypochromasia VBG pH 7.45 H (7.31-7.41) VBG pCO2 46 (37-51) mmHg VBG HCO3 32 H (24-28) mmol/L Sodium (137-145) mmol/L Potassium (3.5-5.1) mmol/L Chloride (98-107) mmol/L Carbon Dioxide (22-30) mmol/L Anion Gap mmol/L BUN (9-20) mg/dL Creatinine (0.66-1.25) mg/dL Est GFR (CKD-EPI)AfAm (>60 ml/min/1.73 sqM) Est GFR (CKD-EPI)NonAf (>60 ml/min/1.73 sqM) Glucose (74-99) mg/dL Calcium (8.4-10.2) mg/dL NT-Pro-B Natriuret Pep pg/mL Disposition Clinical Impression: Dyspnea Disposition: ADMITTED IP TO THIS HOSP Condition: Fair Referrals: Urszula Carrasco MD [Primary Care Provider] - 1-2 days Decision Time: 19:00
[2020-01-09 16:54] LABS: African American GFR (CKD) >90 (>60 ml/min/1.73 sqM); Anion Gap 11 mmol/L; Blood Urea Nitrogen 21 mg/dL (9-20); Calcium 9.5 mg/dL (8.4-10.2); Carbon Dioxide 31 mmol/L (22-30); Chloride 89 mmol/L (98-107); Glucose 101 mg/dL (74-99); Non-African American GFR(CKD) >90 (>60 ml/min/1.73 sqM); Potassium 4.7 mmol/L (3.5-5.1); Sodium 131 mmol/L (137-145)
[2020-01-09 16:55] LABS: HCT 35.4 % (39.0-53.0); HGB 11.4 gm/dL (13.0-17.5); Hypochromasia Slight; MCH 30.9 pg (25.0-35.0); MCHC 32.1 g/dL (31.0-37.0); MCV 96.3 fL (80.0-100.0); Mean Platelet Volume 7.3; Platelet Count 714 k/uL (150-450); RBC 3.67 m/uL (4.30-5.90); RDW 14.8 % (11.5-15.5); WBC 25.5 k/uL (3.8-10.6)
[2020-01-09 17:09] LABS: VBG PH 7.45 (7.31-7.41)
[2020-01-09 17:17] LABS: Band Neutrophils % 2 %; Metamyelocytes # (M) 0.51 k/uL (0); Metamyelocytes % 2 %; Monocytes # (M) 1.53 k/uL (0-1.0); Neutrophils % (M) 82 %; Nucleated Red Blood Cells 0 /100 WBC (0-0); Total Cells Counted 200
--- NOTE | 2020-01-09 17:32 | XR ---
EXAMINATION TYPE: XR chest 1V portable DATE OF EXAM: 01/09/2020 COMPARISON: 11/27/2019 HISTORY: Dyspnea TECHNIQUE: Single frontal view of the chest is obtained. FINDINGS: Demonstration of a patchy right upper lobe opacity as seen on the prior of 11/27/2019. Ther e is a known right upper lobe pulmonary nodule in this patient seen on the CT of 01/02/2020. Left maximilian diaphragm elevation appears chronic. Chronic scarring along the left lung base. Cardiomediastinal huseyin houette appears stable in size. Strand-like right infrahilar opacity likely represents atelectasis. IMPRESSION: 1. Strand-like right infrahilar density likely represents atelectasis. Pneumonia is possible in the a ppropriate clinical setting. 2. Patchy right upper lobe opacity is less conspicuous from 11/27/2019 in this patient with known righ t upper lobe pulmonary nodule seen on the CT of 01/02/2020. This could be further assessed with PET/CT .
[2020-01-09 21:00] LABS: Glucose,Whole Blood 139 mg/dL (75-99)
[2020-01-09] MEDS ORDERED: ALPRAZolam 0.25 MG TAB PO PRN (21:03)
[2020-01-09] MEDS: IPRATROPIUM-ALBUTEROL 3 ML NEB INHALATION PRN (21:03)
[2020-01-09] MEDS: HYDROcodone/APAP 7.5-325MG 1 EACH TAB PO PRN (21:50)
[2020-01-09] MEDS: MONTELUKAST 10 MG TAB PO SCH (21:51)
[2020-01-09] MEDS: METHOCARBAMOL 750 MG TAB PO SCH (21:51)
[2020-01-09] MEDS: GABAPENTIN 400 MG CAP PO SCH (21:51)
[2020-01-09] MEDS: MECLIZINE 25 MG TAB PO SCH (21:51)
[2020-01-09] MEDS: METOPROLOL TARTRATE 25 MG TAB PO SCH (21:51)
[2020-01-09] MEDS: APIXABAN 5 MG TAB PO SCH (21:51)
[2020-01-09] MEDS: MELATONIN 5 MG TABLET PO SCH (21:51)
[2020-01-10] MEDS: IPRATROPIUM-ALBUTEROL 3 ML NEB INHALATION PRN ×2 (03:48→23:29)
[2020-01-10] MEDS: APIXABAN 5 MG TAB PO SCH ×2 (07:32→22:17)
[2020-01-10] MEDS: NICOTINE 14MG/24HR PATCH TRANSDERM SCH (07:32)
[2020-01-10] MEDS: MECLIZINE 25 MG TAB PO SCH ×2 (07:33→22:17)
[2020-01-10] MEDS: GABAPENTIN 400 MG CAP PO SCH ×3 (07:33→22:17)
[2020-01-10] MEDS: METOPROLOL TARTRATE 25 MG TAB PO SCH ×2 (07:33→22:23)
[2020-01-10] MEDS: ATORVASTATIN 10 MG TAB PO SCH (07:33)
[2020-01-10] MEDS: ASPIRIN 81 MG PO SCH (07:33)
[2020-01-10] MEDS: PANTOPRAZOLE 40 MG TABLET PO SCH (07:34)
[2020-01-10] MEDS: amLODIPine 10 MG TAB PO SCH (07:34)
[2020-01-10] MEDS: FOLIC ACID 1 MG TAB PO SCH (07:34)
[2020-01-10] MEDS: HYDROcodone/APAP 7.5-325MG 1 EACH TAB PO PRN ×3 (07:38→22:23)
[2020-01-10] MEDS: ESCITALOPRAM 10 MG TAB PO SCH (07:38)
[2020-01-10] MEDS: IPRATROPIUM-ALBUTEROL 3 ML NEB INHALATION SCH ×4 (08:12→20:05)
[2020-01-10] MEDS: SYMBICORT 160-4.5 MCG INHALER INHALATION SCH ×2 (08:12→20:05)
[2020-01-10] MEDS ORDERED: predniSONE 20 MG TAB PO SCH (09:00)
[2020-01-10] MEDS: methylPREDNISolone SOD SUCCI 125 MG/2 ML VIAL IV SCH ×2 (14:03→17:35)
[2020-01-10 16:30] LABS: Glucose,Whole Blood 216 mg/dL (75-99)
[2020-01-10] MEDS: INSULIN ASPART (NovoLOG) 100 UNIT/ML VIAL SQ SCH ×2 (17:36→22:18)
[2020-01-10 21:02] LABS: Glucose,Whole Blood 149 mg/dL (75-99)
--- NOTE | 2020-01-10 22:02 | HP ---
HISTORY AND PHYSICAL DATE OF SERVICE: 01/10/2020. CHIEF COMPLAINT: Shortness of breath. HISTORY OF PRESENT ILLNESS: This 59-year-old gentleman with a past medical history of multiple medical problems, COPD, CVA, CAD, DVT, history of myocardial infarction, pulmonary embolism, history of anxiety, depression, panic disorder, being followed by Dr. Urszula Carrasco in the outpatient setting, was recently admitted to [facility] with features of COPD exacerbation and suspected Covid at that time. Currently the patient is complaining of increasing shortness of breath and cough and sputum and the patient admitted for further evaluation and treatment. There is no history of fever, rigors or chills. The initial chest x-ray which was done at the time of admission, which was reviewed personally by me showed increased bronchovascular markings on the right side. There is no history of fever, rigors, chills. No history of headache, loss of consciousness, seizures at this time. The patient also apparently had a fall. The patient had strand like opacities in the chest x-ray. After the fall, the patient had lacerated wound which was sutured with sutures on the left foot and abrasion on the right mid elizabeth area also. No chest pain. No palpitations. PAST MEDICAL HISTORY: History of COPD, CVA, TIA, DVT, myocardial infarction, pulmonary embolism. MEDICATIONS: Prior to admission include home medications: 1. Habitrol 14 daily. 2. Prednisone taper. 3. Norvasc 10 mg. 4. Protonix 40 mg. 5. Singular 50 mg q.h.s. 6. Lopressor 25 mg b.i.d. 7. Robaxin 750 mg q.h.s. 8. Melatonin. 9. Antivert 12.5 mg b.i.d. 10.DuoNeb q.i.d. and p.r.n. 11.[place] 7.5 q.6 p.r.n. 12.Gabapentin 800 mg p.o. t.i.d. 13.Folic acid 1 mg daily. 14.Lexapro 10 mg p.o. daily. 15.Symbicort 160/4.5 two puffs b.i.d. 16.Lipitor 10 mg p.o. daily. 17.Ecotrin 81 mg. 18.Eliquis 5 mg p.o. b.i.d. 19.Xanax 0.5 b.i.d. p.r.n. ALLERGIES: TREE NUTS, PEANUTS. FAMILY HISTORY: Family history of cancer in the family. SOCIAL HISTORY: History of alcohol, history of smoking. REVIEW OF SYSTEMS: ENT diminished vision. Diminished hearing. Right ear prosthetic. CARDIOVASCULAR: No angina or palpitations. RESPIRATORY: As mentioned earlier. GI no nausea. no dysuria. Nervous system: No numbness or weakness. Allergies/Immunology: No asthma or hayfever. MUSCULOSKELETAL as mentioned earlier. HEMATOLOGY/ONCOLOGY: No history of anemia. ENDOCRINE noted. CONSTITUTIONAL: As mentioned earlier. DERMATOLOGY: Negative. RHEUMATOLOGY: Negative. PSYCHIATRIC: As mentioned earlier. PHYSICAL EXAMINATION: Alert and oriented times two. Pulse 84. Blood pressure 112/73. Respirations 18. Temperature 97.9. Pulse ox 100 percent on 6 L. HEENT: Conjunctivae normal. Oral mucosa moist. NECK is no jugular venous distention. No carotid bruit. No lymph node enlargement. Cardiovascular system: S1, S2 muffled. No S3, no S4. RESPIRATIONS: Breath sounds diminished in the bases. Bilateral scattered rhonchi and crackles. ABDOMEN: Soft, nontender. No mass palpable. LEGS no edema. No swelling. Nervous system as mentioned earlier. Moves all 4 limbs. No focal motor-sensory deficits. LYMPHATICS: No lymph nodes palpable in the neck, axilla or groin. No ulcers, rashes or bleeding. JOINTS no active deforming arthropathy. LABS: WBC 25.5, hemoglobin 11.4, sodium 131, creatinine 0.49. Accu-Cheks noted. Gore virus is negative. ASSESSMENT: 1. Chronic obstructive pulmonary disease acute exacerbation with acute purulent tracheobronchitis with failure of outpatient treatment. 2. Patchy right upper lobe opacity, which is rather chronic in nature. 3. History of cerebrovascular accident, transient ischemic attack. 4. History of deep vein thrombosis. 5. Hypertension. 6. History of myocardial infarction. 7. History of pneumonia. 8. History of pulmonary embolism. 9. 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 10.Chronic hypoxic respiratory failure. 2 L nasal cannula oxygen at home. 11.History of shingles. 12.Left elizabeth lacerated wound status post suturing. 13.History of basal ganglia hemorrhage with right arm weakness. 14.History of anxiety, depression, panic disorder. 15.History of continued ongoing nicotine dependence. 16.FULL CODE. RECOMMENDATIONS AND DISCUSSION: This 59-year-old gentleman who presented with multiple complex medical issues, we will monitor the patient closely, continue the current medications, symptomatic treatment, we will initiate bronchodilators. Short course of steroids, empiric antibiotics. Otherwise, I would resume the home medications. Prognosis guarded because of multiple complex medical issues. Further recommendations to follow. A copy of this dictation forwarded to Dr. Urszula Carrasco who is the primary physician. MMODL / IJN: [id number] /
[2020-01-10] MEDS: MELATONIN 5 MG TABLET PO SCH (22:17)
[2020-01-10] MEDS: MONTELUKAST 10 MG TAB PO SCH (22:18)
[2020-01-10] MEDS: METHOCARBAMOL 750 MG TAB PO SCH (22:18)
[2020-01-10] MEDS ORDERED: IPRATROPIUM-ALBUTEROL 3 ML NEB ONE (23:25)
[2020-01-11] MEDS: methylPREDNISolone SOD SUCCI 125 MG/2 ML VIAL IV SCH ×4 (00:44→17:17)
[2020-01-11] MEDS: IPRATROPIUM-ALBUTEROL 3 ML NEB INHALATION PRN (03:33)
[2020-01-11 07:04] LABS: Glucose,Whole Blood 138 mg/dL (75-99)
[2020-01-11 07:38] LABS: Basophils # (A) 0.1 k/uL (0-0.2); Basophils % (A) 1 %; Eosinophils % (A) 0 %; HCT 32.1 % (39.0-53.0); HGB 10.2 gm/dL (13.0-17.5); Hypochromasia Slight; Lymphocytes # (A) 0.3 k/uL (1.0-4.8); Lymphocytes % (A) 2 %; MCH 30.5 pg (25.0-35.0); MCHC 31.7 g/dL (31.0-37.0); MCV 96.2 fL (80.0-100.0); Mean Platelet Volume 6.5; Monocytes # (A) 0.8 k/uL (0-1.0); Monocytes % (A) 5 %; Neutrophils % (A) 93 %; Platelet Count 517 k/uL (150-450); RBC 3.34 m/uL (4.30-5.90); RDW 14.6 % (11.5-15.5); WBC 18.4 k/uL (3.8-10.6)
[2020-01-11] MEDS: INSULIN ASPART (NovoLOG) 100 UNIT/ML VIAL SQ SCH ×4 (07:47→21:28)
[2020-01-11 07:51] LABS: African American GFR (CKD) >90 (>60 ml/min/1.73 sqM); Anion Gap 8 mmol/L; Blood Urea Nitrogen 23 mg/dL (9-20); Calcium 8.8 mg/dL (8.4-10.2); Carbon Dioxide 33 mmol/L (22-30); Chloride 90 mmol/L (98-107); Glucose 115 mg/dL (74-99); Non-African American GFR(CKD) >90 (>60 ml/min/1.73 sqM); Potassium 4.8 mmol/L (3.5-5.1); Sodium 131 mmol/L (137-145)
[2020-01-11] MEDS: METOPROLOL TARTRATE 25 MG TAB PO SCH ×2 (07:53→21:28)
[2020-01-11] MEDS: FOLIC ACID 1 MG TAB PO SCH (07:53)
[2020-01-11] MEDS: ASPIRIN 81 MG PO SCH (07:53)
[2020-01-11] MEDS: amLODIPine 10 MG TAB PO SCH (07:53)
[2020-01-11] MEDS: APIXABAN 5 MG TAB PO SCH ×2 (07:53→21:29)
[2020-01-11] MEDS: ESCITALOPRAM 10 MG TAB PO SCH (07:53)
[2020-01-11] MEDS: NICOTINE 14MG/24HR PATCH TRANSDERM SCH (07:53)
[2020-01-11] MEDS: GABAPENTIN 400 MG CAP PO SCH ×3 (07:53→21:29)
[2020-01-11] MEDS: ATORVASTATIN 10 MG TAB PO SCH (07:53)
[2020-01-11] MEDS: MECLIZINE 25 MG TAB PO SCH ×2 (07:54→21:28)
[2020-01-11] MEDS: PANTOPRAZOLE 40 MG TABLET PO SCH (07:54)
[2020-01-11] MEDS: HYDROcodone/APAP 7.5-325MG 1 EACH TAB PO PRN ×3 (08:01→21:31)
[2020-01-11] MEDS: SYMBICORT 160-4.5 MCG INHALER INHALATION SCH ×2 (08:28→20:08)
[2020-01-11] MEDS: IPRATROPIUM-ALBUTEROL 3 ML NEB INHALATION SCH ×4 (08:28→20:08)
[2020-01-11 11:32] LABS: Glucose,Whole Blood 201 mg/dL (75-99)
[2020-01-11 16:36] LABS: Glucose,Whole Blood 154 mg/dL (75-99)
--- NOTE | 2020-01-11 18:57 | PN ---
PROGRESS NOTE DATE OF SERVICE: 01/11/2020 This 59-year-old gentleman, was admitted with COPD acute exacerbation, being closely monitored. No chest pain. No palpitations. No fever. PHYSICAL EXAMINATION: Alert and oriented x3. Pulse is 88, blood pressure is 145/88, respirations 16, temperature 97.8, pulse ox 98% on 4 L HEENT: Conjunctivae normal. Oral mucosa moist. NECK: No jugular venous distention. No lymph node enlargement. CARDIOVASCULAR: S1, S2. RESPIRATORY: Diminished breath sounds at the bases. Bilateral scattered rhonchi and crackles. ABDOMEN: Soft, nontender. LEGS: No edema, no swelling. NERVOUS SYSTEM: No focal deficits. LABS: WBC 18.2, hemoglobin 10.2. ASSESSMENT: 1. Chronic obstructive pulmonary disease acute exacerbation with acute purulent tracheobronchitis with failure of outpatient treatment. 2. Patchy right upper lobe opacity which is rather chronic in nature. 3. History of cerebrovascular accident, transient ischemic attack. 4. History of deep venous thrombosis. 5. Hypertension. 6. History of myocardial infarction. 7. History of pneumonia. 8. History of pulmonary embolism. 9. History of right upper lobe consolidation, thought to be fungal Aspergillus fumigatus previously. 10.Chronic hypoxic respiratory failure on 2 L nasal cannula at home. 11.History of shingles. 12.Left elizabeth lacerated wound status post suturing. 13.History of basal ganglia hemorrhage with right arm weakness. 14.History of anxiety, depression, panic disorder. 15.History of continued ongoing nicotine dependence. 16.FULL CODE. RECOMMENDATION: Recommend to continue current medication, continue symptomatic treatment, continue bronchodilators, taper steroids. Otherwise, closely follow with multiple consultants and further recommendations to follow. MMODL / IJN: [id number] /
[2020-01-11 20:38] LABS: Glucose,Whole Blood 193 mg/dL (75-99)
[2020-01-11] MEDS: MELATONIN 5 MG TABLET PO SCH (21:28)
[2020-01-11] MEDS: MONTELUKAST 10 MG TAB PO SCH (21:28)
[2020-01-11] MEDS: METHOCARBAMOL 750 MG TAB PO SCH (21:31)
[2020-01-12] MEDS: methylPREDNISolone SOD SUCCI 125 MG/2 ML VIAL IV SCH ×3 (00:55→11:31)
[2020-01-12] MEDS: IPRATROPIUM-ALBUTEROL 3 ML NEB INHALATION PRN (03:28)
[2020-01-12 07:01] LABS: Glucose,Whole Blood 153 mg/dL (75-99)
[2020-01-12] MEDS: IPRATROPIUM-ALBUTEROL 3 ML NEB INHALATION SCH ×3 (07:20→15:38)
[2020-01-12] MEDS: SYMBICORT 160-4.5 MCG INHALER INHALATION SCH (07:20)
[2020-01-12] MEDS: GABAPENTIN 400 MG CAP PO SCH ×2 (07:30→15:59)
[2020-01-12] MEDS: ATORVASTATIN 10 MG TAB PO SCH (07:30)
[2020-01-12] MEDS: MECLIZINE 25 MG TAB PO SCH (07:31)
[2020-01-12] MEDS: METOPROLOL TARTRATE 25 MG TAB PO SCH (07:31)
[2020-01-12] MEDS: APIXABAN 5 MG TAB PO SCH (07:31)
[2020-01-12] MEDS: amLODIPine 10 MG TAB PO SCH (07:31)
[2020-01-12] MEDS: FOLIC ACID 1 MG TAB PO SCH (07:31)
[2020-01-12] MEDS: HYDROcodone/APAP 7.5-325MG 1 EACH TAB PO PRN ×2 (07:32→15:59)
[2020-01-12] MEDS: ASPIRIN 81 MG PO SCH (07:32)
[2020-01-12] MEDS: INSULIN ASPART (NovoLOG) 100 UNIT/ML VIAL SQ SCH ×2 (07:32→11:32)
[2020-01-12] MEDS: PANTOPRAZOLE 40 MG TABLET PO SCH (07:32)
[2020-01-12] MEDS: ESCITALOPRAM 10 MG TAB PO SCH (07:33)
[2020-01-12] MEDS: NICOTINE 14MG/24HR PATCH TRANSDERM SCH (07:34)
[2020-01-12 08:09] LABS: HCT 30.4 % (39.0-53.0); HGB 9.7 gm/dL (13.0-17.5); Hypochromasia Slight; MCH 31.2 pg (25.0-35.0); MCHC 31.9 g/dL (31.0-37.0); MCV 97.7 fL (80.0-100.0); Mean Platelet Volume 6.5; Platelet Count 457 k/uL (150-450); RBC 3.11 m/uL (4.30-5.90); RDW 14.6 % (11.5-15.5); WBC 22.2 k/uL (3.8-10.6)
[2020-01-12 08:15] LABS: African American GFR (CKD) >90 (>60 ml/min/1.73 sqM); Anion Gap 6 mmol/L; Blood Urea Nitrogen 22 mg/dL (9-20); Calcium 8.6 mg/dL (8.4-10.2); Carbon Dioxide 34 mmol/L (22-30); Chloride 92 mmol/L (98-107); Glucose 133 mg/dL (74-99); Non-African American GFR(CKD) >90 (>60 ml/min/1.73 sqM); Potassium 4.3 mmol/L (3.5-5.1); Sodium 132 mmol/L (137-145)
[2020-01-12 08:36] LABS: Band Neutrophils % 4 %; Lymphocytes # (M) 1.11 k/uL (1.0-4.8); Metamyelocytes # (M) 0.44 k/uL (0); Metamyelocytes % 2 %; Monocytes # (M) 0.89 k/uL (0-1.0); Neutrophils % (M) 87 %; Nucleated Red Blood Cells 0 /100 WBC (0-0); Total Cells Counted 200
[2020-01-12 11:18] LABS: Glucose,Whole Blood 183 mg/dL (75-99)
--- NOTE | 2020-01-12 15:56 | P.DS ---
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 Patient will follow-up with Dr. Urszula Carrasco once discharged. Patient will continue on a prednisone taper in the outpatient setting. Total time taken is greater than 35 minutes History of present illness This is a 59-year-old male who was recently admitted with COPD exacerbation and is being closely monitored. Patient has a history of multiple readmissions. Patient will be going to rehab for continued PT/OT therapy. Currently no reports of chest pain, worsening shortness of breath, or palpitations. Patient is afebrile. No reports of nausea or vomiting and patient is tolerating diet. Patient to continue with monitoring of blood sugars before meals at bedtime and treat accordingly with sliding scale. Patient will follow-up with primary care provider upon discharge along with pulmonary in the outpatient setting. Patient will be discharged to [facility] today. On exam vital signs are stable. Temp is 98.2F, pulse is 79, respirations are 18, blood pressure is 131/75, oxygen saturation is 98% on 3 L via nasal cannula. Cardio S1, S2 are muffled. Respiratory system shows diminished breath sounds at the bases with some scattered rhonchi noted. Mild expiratory wheezing noted. Abdomen is soft, obese, nontender. Nervous system shows diffuse weakness. Please refer to medication reconciliation sheet for a list of medications. Patient Condition at Discharge: Stable Plan - Discharge Summary Discharge Rx Participant: Yes New Discharge Prescriptions: New predniSONE 10 mg PO DIRECTED #30 tab Continue amLODIPine [Norvasc] 10 mg PO DAILY Escitalopram [Lexapro] 10 mg PO DAILY #15 tab Melatonin 10 mg PO HS Metoprolol Tartrate [Lopressor] 25 mg PO BID #60 tab Meclizine [Antivert] 12.5 mg PO Q12H Pantoprazole Sodium [Protonix] 40 mg PO DAILY Folic Acid 1 mg PO DAILY Aspirin EC [Ecotrin Low Dose] 81 mg PO DAILY Nicotine 14Mg/24Hr Patch [Habitrol] 1 patch TRANSDERM DAILY patch Atorvastatin [Lipitor] 10 mg PO DAILY tab Montelukast [Singulair] 10 mg PO HS tab Ipratropium-Albuterol Nebulize [Duoneb 0.5 mg-3 mg/3 ml Soln] 3 ml INHALATION RT-Q4H PRN ml PRN Reason: Shortness Of Breath Or Wheezing Apixaban [Eliquis] 5 mg PO BID 30 Days #60 tab Budesonide-Formot 160-4.5 Mcg [Symbicort 160-4.5 Mcg Inhaler] 2 puff INHALATION RT-BID INSULIN ASPART (NovoLOG) [NovoLOG (formulary)] See Protocol SQ ACHS Ipratropium-Albuterol Nebulize [Duoneb 0.5 mg-3 mg/3 ml Soln] 3 ml INHALATION RT-QID 30 Days neb HYDROcodone/APAP 7.5-325MG [[place] 7.5-325] 1 tab PO Q6HR PRN 3 Days #12 tab PRN Reason: Pain Methocarbamol [Robaxin-750] 750 mg PO HS #10 tab ALPRAZolam [Xanax] 0.25 mg PO BID PRN #3 tab PRN Reason: Anxiety Gabapentin 800 mg PO TID #9 tab Discontinued predniSONE See Taper PO DAILY Discharge Medication List amLODIPine [Norvasc] 10 mg PO DAILY 04/29/19 [History] Escitalopram [Lexapro] 10 mg PO DAILY #15 tab 05/15/19 [Rx] Melatonin 10 mg PO HS 08/12/19 [History] Metoprolol Tartrate [Lopressor] 25 mg PO BID #60 tab 09/30/19 [Rx] Aspirin EC [Ecotrin Low Dose] 81 mg PO DAILY 10/20/19 [History] Folic Acid 1 mg PO DAILY 10/20/19 [History] Meclizine [Antivert] 12.5 mg PO Q12H 10/20/19 [History] Pantoprazole Sodium [Protonix] 40 mg PO DAILY 10/20/19 [History] Atorvastatin [Lipitor] 10 mg PO DAILY tab 10/23/19 [Rx] Montelukast [Singulair] 10 mg PO HS tab 10/23/19 [Rx] Nicotine 14Mg/24Hr Patch [Habitrol] 1 patch TRANSDERM DAILY patch 10/23/19 [Rx] Apixaban [Eliquis] 5 mg PO BID 30 Days #60 tab 12/01/19 [Rx] Ipratropium-Albuterol Nebulize [Duoneb 0.5 mg-3 mg/3 ml Soln] 3 ml INHALATION RT-Q4H PRN ml 12/01/19 [Rx] Budesonide-Formot 160-4.5 Mcg [Symbicort 160-4.5 Mcg Inhaler] 2 puff INHALATION RT-BID 01/03/20 [History] INSULIN ASPART (NovoLOG) [NovoLOG (formulary)] See Protocol SQ ACHS 01/03/20 [History] Ipratropium-Albuterol Nebulize [Duoneb 0.5 mg-3 mg/3 ml Soln] 3 ml INHALATION RT-QID 30 Days neb 01/08/20 [Rx] ALPRAZolam [Xanax] 0.25 mg PO BID PRN #3 tab 01/12/20 [Rx] Gabapentin 800 mg PO TID #9 tab 01/12/20 [Rx] HYDROcodone/APAP 7.5-325MG [[place] 7.5-325] 1 tab PO Q6HR PRN 3 Days #12 tab 01/12/20 [Rx] Methocarbamol [Robaxin-750] 750 mg PO HS #10 tab 01/12/20 [Rx] predniSONE 10 mg PO DIRECTED #30 tab 01/12/20 [Rx] Follow up Appointment(s)/Referral(s): Urszula Carrasco MD [Primary Care Provider] - 01/14/20 10:00 am (This will be a telehealth ) Activity/Diet/Wound Care/Special Instructions: Patient is going to [facility] Continue to monitor blood sugars before meals at bedtime and treat accordingly with sliding scale Activity as tolerated Continue with prednisone taper Continue to avoid tobacco use Follow up with primary care provider upon discharge Continue current diet Discharge Disposition: TRANSFER TO [facility]
[2020-01-12 16:11] VITALS: BP 147/72; PULSE 86; RESP 17; TEMP 98.3
--- NOTE | 2020-01-15 08:23 | CDI ---
Documentation Clarification Form Date: 01/15/2020 07:40:55 AM From: Kaye Branch RN, CCDS Admit Date: 01/09/2020 07:00:00 PM Patient Name: Junior Mallory Visit Number: [id number] Discharge Date: 01/12/2020 04:46:00 PM ATTENTION: The Clinical Documentation Specialists (CDI) and [facility] Coding Staff appreciate your assistance in clarifying documentation. Please respond to the clarification below the line at the bottom and electronically sign. The CDI & [facility] Coding staff will review the response and follow-up if needed. Please note: Queries are made part of the Legal Health Record. If you have any questions, please contact the author of this message via ITS. Dr. Tricia Cano The patient presented to ED on 01/08 with shortness of breath and dyspnea. He has a history of chronic respiratory failure on 2/L NC at home. ED clinical presentation concerning for acute hypoxic respiratory failure secondary to COPD. History/Risk Factors: COPD, Asperigillus fumigatus, Chronic hypoxic respiratory failure, Pneumonia, Pulmonary Embolism, CVA Tobacco use: Former smoker Home oxygen: 2-3 L NC Clinical Indicators: 59 year-old male who present to ED on 01/08 via EMS for shortness of breath, dyspnea. He as able to complete 2-3 word sentences, mild retractions, very poor air exchange with wheezing. 01/08 ED: Clinical presentation concerning for acute hypoxic respiratory failure secondary to COPD. Patient is in mild to moderate respiratory distress. BiBAP placed. Vital signs: 178/108 134 26 98.2 97% 6/L 01/08 Labs: Covid Not detected CXR: Patchy right upper lobe opacity 01/08 ABG/CBG: pH 7.45 pCO2 46 HCO3 32 Treatment: Breathing tx: Ventolin Nubulized once stat (01/08) Atrovent inhalation x1 stat Duoneb 0.5 mg inhalation q4 h prn Solu-Medrol 60 IV q6 hrs 01/09-01/11 taper to prednisone 40 Mg po daily Monitor O2 sat's (titrate) In your professional opinion, can you please clarify if these findings signify one of the following conditions? Acute on Chronic Hypoxic Respiratory Failure Chronic Hypoxic Respiratory Failure Other Diagnosis, please specify Unable to determine Specificity: If known, further specify (if known): With hypercapnia? (pCO2 >50 and pH <7.35) With hypoxia? (pO2 <60 mm Hg or SpO2 <91% on room air) (Last Query Form Revision: April 2019) Acute on Chronic Hypoxic Respiratory Failure MTDD
== END 2020-01-12 16:46 | DRG 190 ==
LOC: EC 16:12 → 4SSUR 19:00
PROVIDERS: ADMIT Hospitalist; ATTEND Hospitalist
PROC: 5A09357 Assistance with Respiratory Ventilation, Less than 24 Consecutive Hours, Continuous Positive Airway Pressure (ICD-10-PCS; principal; 2020-01-09)
DX: J44.0 Chronic obstructive pulmonary disease with (acute) lower respiratory infection (principal); J96.21 Acute and chronic respiratory failure with hypoxia; Z99.81 Dependence on supplemental oxygen; J44.1 Chronic obstructive pulmonary disease with (acute) exacerbation; Z79.4 Long term (current) use of insulin; J20.9 Acute bronchitis, unspecified; Z20.828 Contact with and (suspected) exposure to other viral communicable diseases; F32.9 Major depressive disorder, single episode, unspecified; F41.0 Panic disorder [episodic paroxysmal anxiety]; H91.90 Unspecified hearing loss, unspecified ear; H54.40 Blindness, one eye, unspecified eye; I10 Essential (primary) hypertension; I69.2 Sequelae of other nontraumatic intracranial hemorrhage; R40.2362 Coma scale, best motor response, obeys commands, at arrival to emergency department; R40.2142 Coma scale, eyes open, spontaneous, at arrival to emergency department; R40.2252 Coma scale, best verbal response, oriented, at arrival to emergency department; E66.9 Obesity, unspecified; I25.10 Atherosclerotic heart disease of native coronary artery without angina pectoris; I25.2 Old myocardial infarction; S81.812D Laceration without foreign body, left lower leg, subsequent encounter; Z79.01 Long term (current) use of anticoagulants; Z79.82 Long term (current) use of aspirin; Z79.51 Long term (current) use of inhaled steroids; Z79.899 Other long term (current) drug therapy; Z86.718 Personal history of other venous thrombosis and embolism; Z87.01 Personal history of pneumonia (recurrent); Z86.711 Personal history of pulmonary embolism; Z86.19 Personal history of other infectious and parasitic diseases; Z87.81 Personal history of (healed) traumatic fracture; Z87.891 Personal history of nicotine dependence; Z91.018 Allergy to other foods; Z91.010 Allergy to peanuts; Z80.51 Family history of malignant neoplasm of kidney; Z80.8 Family history of malignant neoplasm of other organs or systems; Z82.5 Family history of asthma and other chronic lower respiratory diseases
CPT/HCPCS: 36415; 71045; 80048; 82803; 83880; 85025; 87635; 93005; 94640; 94660; 99285

== ENCOUNTER 2020-02-18 17:43 | Inpatient (IN) | payer OTHER ==
--- NOTE | 2020-02-18 17:53 | ED ---
SOB HPI - General Stated Complaint: CLEMENCIA Time Seen by Provider: 02/18/20 17:43 Source: patient, EMS, RN notes reviewed, old records reviewed Mode of arrival: EMS - History of Present Illness Initial Comments: This is a 59-year-old male with a history of COPD who still is a smoker who is brought in by EMS from his home where he just been discharged to from a nursing facility where he was in rehab. He appears receiving admitted for COPD exacerbation and peripheral neuropathy. His apartment apparently is not air- conditioned per paramedics it was about 105 and very poor living conditions. Patient did receive a DuoNeb and route with some improvement. He also states she's had increased pedal edema MD Complaint: shortness of breath - Related Data Home Medications Medication Instructions Recorded Confirmed amLODIPine [Norvasc] 10 mg PO DAILY 04/29/19 01/09/20 Melatonin 10 mg PO HS 08/12/19 01/09/20 Aspirin EC [Ecotrin Low Dose] 81 mg PO DAILY 10/20/19 01/09/20 Folic Acid 1 mg PO DAILY 10/20/19 01/09/20 Meclizine [Antivert] 12.5 mg PO Q12H 10/20/19 01/09/20 Pantoprazole Sodium [Protonix] 40 mg PO DAILY 10/20/19 01/09/20 Budesonide-Formot 160-4.5 Mcg 2 puff INHALATION RT-BID 01/03/20 01/09/20 [Symbicort 160-4.5 Mcg Inhaler] INSULIN ASPART (NovoLOG) [NovoLOG See Protocol SQ ACHS 01/03/20 01/09/20 (formulary)] Previous Rx's Medication Instructions Recorded Escitalopram [Lexapro] 10 mg PO DAILY #15 tab 05/15/19 Metoprolol Tartrate [Lopressor] 25 mg PO BID #60 tab 09/30/19 Atorvastatin [Lipitor] 10 mg PO DAILY tab 10/23/19 Montelukast [Singulair] 10 mg PO HS tab 10/23/19 Nicotine 14Mg/24Hr Patch [Habitrol] 1 patch TRANSDERM DAILY patch 10/23/19 Apixaban [Eliquis] 5 mg PO BID 30 Days #60 tab 12/01/19 Ipratropium-Albuterol Nebulize 3 ml INHALATION RT-Q4H PRN ml 12/01/19 [Duoneb 0.5 mg-3 mg/3 ml Soln] Ipratropium-Albuterol Nebulize 3 ml INHALATION RT-QID 30 Days neb 01/08/20 [Duoneb 0.5 mg-3 mg/3 ml Soln] ALPRAZolam [Xanax] 0.25 mg PO BID PRN #3 tab 01/12/20 Gabapentin 800 mg PO TID #9 tab 01/12/20 HYDROcodone/APAP 7.5-325MG [[place] 1 tab PO Q6HR PRN 3 Days #12 tab 01/12/20 7.5-325] Methocarbamol [Robaxin-750] 750 mg PO HS #10 tab 01/12/20 predniSONE 10 mg PO DIRECTED #30 tab 01/12/20 Allergies Allergy/AdvReac Type Severity Reaction Status Date / Time tree nut [Nut] Allergy Unknown Dyspnea, Verified 01/09/20 19:21 Rash/Hives peanut [Peanut Butter] AdvReac Dyspnea, Verified 01/09/20 19:21 Rash/Hives Review of Systems ROS Statement: Those systems with pertinent positive or pertinent negative responses have been documented in the HPI. ROS Other: All systems not noted in ROS Statement are negative. 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 Last Myocardial Infarction Date:: unknown History of Any Multi-Drug Resistant Organisms: None Reported Past Surgical History: Orthopedic Surgery Additional Past Surgical History / Comment(s): metal plate left hand middle fing er, right eye enucleation. Past Anesthesia/Blood Transfusion Reactions: No Reported Reaction Past Psychological History: Anxiety, Depression, Panic Disorder Additional Psychological History / Comment(s): Lives in apartment. Has a nebulizer/oxygen. 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 Smoking Status: Former smoker Past Alcohol Use History: None Reported, Occasional Additional Past Alcohol Use History / Comment(s): STARTED SMOKING 1975 1 PPD- PT STATED HE DRINKS 1 BEER a day Past Drug Use History: Marijuana Additional Drug Use History / Comment(s): Pt states he uses marajuana at times. - Past Family History Mother Family Medical History: Cancer Additional Family Medical History / Comment(s): Pt believes his Mom of Kidney Cancer Father Family Medical History: Cancer, COPD, Respiratory Disorder Additional Family Medical History / Comment(s): Melanoma General Exam - General Exam Comments Initial Comments: This is a well-developed well-nourished awake alert oriented 3 male General appearance: alert, anxious Head exam: Present: atraumatic, normocephalic, normal inspection Eye exam: Present: normal appearance, PERRL, EOMI. Absent: scleral icterus, conjunctival injection, periorbital swelling ENT exam: Present: normal exam, mucous membranes moist Neck exam: Present: normal inspection, full ROM, other (No surgery or bruits). Absent: tenderness, meningismus, lymphadenopathy Respiratory exam: Present: wheezes, decreased breath sounds. Absent: respiratory distress, rales, rhonchi, stridor Cardiovascular Exam: Present: regular rate, normal rhythm, normal heart sounds. Absent: systolic murmur, diastolic murmur, rubs, gallop, clicks GI/Abdominal exam: Present: soft, normal bowel sounds. Absent: distended, tenderness, guarding, rebound, rigid Extremities exam: Present: normal inspection, full ROM, normal capillary refill, pedal edema. Absent: tenderness, joint swelling, calf tenderness Back exam: Present: normal inspection Neurological exam: Present: alert, oriented X3, CN II-XII intact Psychiatric exam: Present: normal affect, normal mood Skin exam: Present: warm, dry, intact, normal color. Absent: rash Course Vital Signs 02/18/20 02/18/20 17:49 19:12 Temperature 99.4 F Pulse Rate 114 H Respiratory 22 20 Rate Blood Pressure 130/47 O2 Sat by Pulse 95 Oximetry Medical Decision Making - Medical Decision Making I did discuss findings with the patient and with Dr. Guzmán. Patient be admitted for treatment of COPD exacerbation left lower lobe pneumonia. - Lab Data Result diagrams: 02/18/20 18:25 02/18/20 18:25 Lab Results 02/18/20 02/18/20 02/18/20 Range/Units 18:25 18:25 18:25 WBC 15.9 H (3.8-10.6) k/uL RBC 3.14 L (4.30-5.90) m/uL Hgb 8.7 L (13.0-17.5) gm/dL Hct 27.9 L (39.0-53.0) % MCV 88.9 D (80.0-100.0) fL MCH 27.7 (25.0-35.0) pg MCHC 31.1 (31.0-37.0) g/dL RDW 16.1 H (11.5-15.5) % Plt Count 640 H (150-450) k/uL Neutrophils % 79 % Lymphocytes % 10 % Monocytes % 6 % Eosinophils % 2 % Basophils % 1 % Neutrophils # 12.6 H (1.3-7.7) k/uL Lymphocytes # 1.6 (1.0-4.8) k/uL Monocytes # 1.0 (0-1.0) k/uL Eosinophils # 0.3 (0-0.7) k/uL Basophils # 0.1 (0-0.2) k/uL Hypochromasia Slight Anisocytosis Slight Sodium 128 L (137-145) mmol/L Potassium 4.7 (3.5-5.1) mmol/L Chloride 93 L (98-107) mmol/L Carbon Dioxide 25 (22-30) mmol/L Anion Gap 10 mmol/L BUN 13 (9-20) mg/dL Creatinine 0.65 L (0.66-1.25) mg/dL Est GFR (CKD-EPI)AfAm >90 (>60 ml/min/1.73 sqM) Est GFR (CKD-EPI)NonAf >90 (>60 ml/min/1.73 sqM) Glucose 86 (74-99) mg/dL Plasma Lactic Acid Gray 0.9 (0.7-2.0) mmol/L Calcium 9.1 (8.4-10.2) mg/dL Magnesium 1.9 (1.6-2.3) mg/dL Total Bilirubin 0.4 (0.2-1.3) mg/dL AST 26 (17-59) U/L ALT 10 (4-49) U/L Alkaline Phosphatase 60 (38-126) U/L Creatine Kinase 108 (55-170) U/L Troponin I (0.000-0.034) ng/mL NT-Pro-B Natriuret Pep pg/mL Total Protein 6.0 L (6.3-8.2) g/dL Albumin 3.4 L (3.5-5.0) g/dL 02/18/20 02/18/20 Range/Units 18:25 18:25 WBC (3.8-10.6) k/uL RBC (4.30-5.90) m/uL Hgb (13.0-17.5) gm/dL Hct (39.0-53.0) % MCV (80.0-100.0) fL MCH (25.0-35.0) pg MCHC (31.0-37.0) g/dL RDW (11.5-15.5) % Plt Count (150-450) k/uL Neutrophils % % Lymphocytes % % Monocytes % % Eosinophils % % Basophils % % Neutrophils # (1.3-7.7) k/uL Lymphocytes # (1.0-4.8) k/uL Monocytes # (0-1.0) k/uL Eosinophils # (0-0.7) k/uL Basophils # (0-0.2) k/uL Hypochromasia Anisocytosis Sodium (137-145) mmol/L Potassium (3.5-5.1) mmol/L Chloride (98-107) mmol/L Carbon Dioxide (22-30) mmol/L Anion Gap mmol/L BUN (9-20) mg/dL Creatinine (0.66-1.25) mg/dL Est GFR (CKD-EPI)AfAm (>60 ml/min/1.73 sqM) Est GFR (CKD-EPI)NonAf (>60 ml/min/1.73 sqM) Glucose (74-99) mg/dL Plasma Lactic Acid Gray (0.7-2.0) mmol/L Calcium (8.4-10.2) mg/dL Magnesium (1.6-2.3) mg/dL Total Bilirubin (0.2-1.3) mg/dL AST (17-59) U/L ALT (4-49) U/L Alkaline Phosphatase (38-126) U/L Creatine Kinase (55-170) U/L Troponin I <0.012 (0.000-0.034) ng/mL NT-Pro-B Natriuret Pep 333 pg/mL Total Protein (6.3-8.2) g/dL Albumin (3.5-5.0) g/dL - EKG Data -: EKG Interpreted by Me EKG shows normal: sinus rhythm EKG Comments: EKG shows sinus tachycardia 108. Interval 136 QRS duration 80 QT since QTC 342/458 No other significant findings - Radiology Data Radiology results: report reviewed (I did review the imaging and report evidence a left lower lobe infiltrate developing.), image reviewed Disposition Clinical Impression: Left lower lobe pneumonia, COPD exacerbation, Leukocytosis Disposition: ADMITTED IP TO THIS HOSP Condition: Fair Is patient prescribed a controlled substance at d/c from ED?: No Referrals: Urszula Carrasco MD [Primary Care Provider] - 1-2 days
[2020-02-18 18:34] LABS: Anisocytosis Slight; Basophils # (A) 0.1 k/uL (0-0.2); Basophils % (A) 1 %; Eosinophils # (A) 0.3 k/uL (0-0.7); Eosinophils % (A) 2 %; HCT 27.9 % (39.0-53.0); HGB 8.7 gm/dL (13.0-17.5); Hypochromasia Slight; Lymphocytes # (A) 1.6 k/uL (1.0-4.8); Lymphocytes % (A) 10 %; MCH 27.7 pg (25.0-35.0); MCHC 31.1 g/dL (31.0-37.0); Mean Platelet Volume 6.4; Monocytes % (A) 6 %; Neutrophils # (A) 12.6 k/uL (1.3-7.7); Neutrophils % (A) 79 %; Platelet Count 640 k/uL (150-450); RBC 3.14 m/uL (4.30-5.90); RDW 16.1 % (11.5-15.5); WBC 15.9 k/uL (3.8-10.6)
[2020-02-18 18:39] LABS: MCV 88.9 fL (80.0-100.0)
[2020-02-18 18:43] LABS: ALT 10 U/L (4-49); AST 26 U/L (17-59); African American GFR (CKD) >90 (>60 ml/min/1.73 sqM); Albumin 3.4 g/dL (3.5-5.0); Alkaline Phosphatase 60 U/L (38-126); Anion Gap 10 mmol/L; Blood Urea Nitrogen 13 mg/dL (9-20); Calcium 9.1 mg/dL (8.4-10.2); Carbon Dioxide 25 mmol/L (22-30); Chloride 93 mmol/L (98-107); Creatine Kinase 108 U/L (55-170); Glucose 86 mg/dL (74-99); Magnesium 1.9 mg/dL (1.6-2.3); Non-African American GFR(CKD) >90 (>60 ml/min/1.73 sqM); Potassium 4.7 mmol/L (3.5-5.1); Sodium 128 mmol/L (137-145); Total Bilirubin 0.4 mg/dL (0.2-1.3)
--- NOTE | 2020-02-18 19:14 | XR ---
EXAMINATION TYPE: XR chest 2V DATE OF EXAM: 02/18/2020 COMPARISON: 01/09/2020 HISTORY: Shortness of breath TECHNIQUE: Frontal and lateral views of the chest are obtained. FINDINGS: Scattered senescent parenchymal changes noted. Hyperinflation compatible with COPD. Nodular density right upper lobe persists. There is also increased density left lower lobe. Underlyin g infiltrate is difficult to exclude. Heart size is stable. Mediastinal structures are stable and grossly unremarkable. No evidence for hilar prominence. Degenerative changes dorsal spine. IMPRESSION: 1. Nodular density right upper lobe persists. There is also increased density left lower lobe. Underl dago infiltrate is difficult to exclude.
[2020-02-18] MEDS ORDERED: PNEUMONIA PROTOCOL UTILIZED 1 EACH MISC PO PRN (19:48)
[2020-02-18] MEDS ORDERED: AZITHROMYCIN 500 MG in SODIUM CHLORIDE 0.9% 250 ML IVPB STA (19:48)
[2020-02-18] MEDS ORDERED: ALPRAZolam 0.25 MG TAB PO PRN (19:51)
[2020-02-18] MEDS: IPRATROPIUM-ALBUTEROL 3 ML NEB INHALATION SCH ×2 (20:19→23:02)
[2020-02-18 22:14] LABS: Partial Thromboplastin Time 38.1 sec (22.0-30.0); Prothrombin Time 10.4 sec (9.0-12.0)
[2020-02-18] MEDS ORDERED: HYDROmorphone 0.5 MG/0.5 ML SYRINGE IVP PRN (22:29)
--- NOTE | 2020-02-18 22:59 | HP ---
HISTORY AND PHYSICAL DATE OF SERVICE: 02/18/2020 CHIEF COMPLAINT: Shortness of breath. HISTORY OF PRESENT ILLNESS: This 59-year-old gentleman with a past medical history of multiple medical problems, including chest pain, COPD, CVA, DVT, history of myocardial infarction and pulmonary embolism, being followed by Dr. Urszula Carrasco in the outpatient setting, was recently admitted with COPD, acute exacerbation. The patient is complaining of shortness of breath, some cough and generalized swelling and fever up to 105 and poor living conditions. The patient came to [facility] and was admitted for further evaluation and treatment. There is no history any headache, loss of consciousness, seizures. A chest x-ray which was done and personally reviewed by me showed nodular opacity; increased density in the left lower lobe was also noted. PAST MEDICAL HISTORY: COPD, CVA, TIA, DVT, hypertension, history of myocardial infarction and pulmonary embolism. HOME MEDICATIONS: 1. Valtrex 500 mg p.o. b.i.d. 2. K-Dur 10 mEq p.o. daily. 3. Protonix 40 mg p.o. daily. 4. Robaxin 750 mg at bedtime. 5. NovoLog scale. 6. Olivia 7.5 q.6 p.r.n. 7. Singulair 10 mg at bedtime. 8. Lopressor 25 mg p.o. b.i.d. 9. Melatonin 10 mg at bedtime. 10.Magnesium oxide 400 mg p.o. daily. 11.Lasix 40 mg p.o. daily. 12.Lexapro 10 mg p.o. daily. 13.DuoNeb q.4 p.r.n. 14.Gabapentin 800 mg p.o. t.i.d. 15.Folic acid 1 mg p.o. daily. 16.Lipitor 10 mg at bedtime. 17.Ecotrin 81 mg p.o. daily. 18.Norvasc 10 mg p.o. daily. 19.Xanax 0.25 b.i.d. p.r.n. ALLERGIES: TREE NUTS and PEANUTS. FAMILY HISTORY: History of cancer in the family. SOCIAL HISTORY: Previous history of smoking. Occasional alcohol intake. REVIEW OF SYSTEMS: ENT: Diminished hearing. Diminished vision. CARDIOVASCULAR SYSTEM: As mentioned earlier. RESPIRATORY SYSTEM: As mentioned earlier. GI: No nausea, vomiting. : No dysuria or retention. NERVOUS SYSTEM: No numbness, weakness. ALLERGY/IMMUNOLOGY: No asthma, hayfever. MUSCULOSKELETAL: As mentioned earlier. HEMATOLOGY/ONCOLOGY: No history of anemia. ENDOCRINE: No history of diabetes, hypothyroidism. CONSTITUTIONAL: As mentioned earlier. DERMATOLOGY: Negative. RHEUMATOLOGY: Negative. PSYCHIATRY: As mentioned earlier. PHYSICAL EXAMINATION: Patient is alert and oriented x3. Pulse 98, blood pressure 115/64, respiration 18, temperature 98.9, pulse ox 98% on 3 L. HEENT: Conjunctivae normal. Oral mucosa moist. Facial swelling present. NECK: No jugular venous distention. No carotid bruit. No lymph node enlargement. CARDIOVASCULAR SYSTEM: S1, S2 muffled. RESPIRATORY SYSTEM: Breath sounds diminished at the bases. A few scattered rhonchi and crackles. ABDOMEN: Soft, obese, non-tender. LEGS: Bilateral leg edema. NERVOUS SYSTEM: Higher functions as mentioned earlier. Moves all 4 limbs. No focal motor or sensory deficit. LYMPHATICS: No lymph node palpable in neck, axillae or groin. SKIN: No ulcer, rash, bleeding. JOINTS: No active deforming arthropathy. LABS: WBC 15.2, hemoglobin is 8.7, sodium 128. ASSESSMENT: 1. Chronic obstructive pulmonary disease, acute exacerbation, with acute purulent tracheobronchitis, possible left lower lobe pneumonia, possibly Gram- negative. 2. Possible acute on chronic cor pulmonale. 3. Increased white count. 4. Anemia, normocytic. 5. Hyponatremia. 6. History of chronic obstructive pulmonary disease. 7. History of cerebrovascular accident, transient ischemic attack. 8. History of deep venous thrombosis, pulmonary embolism. 9. Hypertension. 10.History of myocardial infarction. 11.History of pneumonia. 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 13.Chronic hypoxic respiratory failure. Oxygen 2 L nasal cannula. 14.History of shingles. 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 16.History of anxiety, depression, panic disorder. 17.History of nicotine dependence. 18.Poor social support. 19.FULL CODE. RECOMMENDATIONS AND DISCUSSION: In this 59-year-old gentleman who presented with multiple medical issues, at this time we will monitor the patient closely, optimize medical treatment. Rocephin and Zithromax. Follow the cultures. Resume the home medication. Consult Pulmonary. COVID- 19 has been requested. Cultures. Resume the home medications. I would also recommend a small dose of diuretics. Continue to monitor. Guarded prognosis because of multiple complex medical issues. Further recommendations to follow. A copy of this dictation is being forwarded to Dr. Urszula Carrasco, who is the primary physician. MMROROL / HANSAN: [id number] / [email or web address]
[2020-02-18] MEDS: APIXABAN 5 MG TAB PO SCH (23:17)
[2020-02-18] MEDS: METOPROLOL TARTRATE 25 MG TAB PO SCH (23:17)
[2020-02-18] MEDS: GABAPENTIN 400 MG CAP PO SCH (23:18)
[2020-02-18] MEDS: MONTELUKAST 10 MG TAB PO SCH (23:18)
[2020-02-18] MEDS: MELATONIN 5 MG TABLET PO SCH (23:18)
[2020-02-18] MEDS: METHOCARBAMOL 750 MG TAB PO SCH (23:18)
[2020-02-18] MEDS: MECLIZINE 12.5 MG TAB PO SCH (23:18)
[2020-02-18] MEDS: SODIUM CHLORIDE 0.9% 1,000 ML IV SCH (23:18)
[2020-02-18] MEDS: FUROSEMIDE 10 MG/ML 4 ML VIAL IV SCH (23:20)
[2020-02-19] MEDS: IPRATROPIUM-ALBUTEROL 3 ML NEB INHALATION SCH ×5 (03:39→20:52)
[2020-02-19 09:20] LABS: Basophils # (A) 0.1 k/uL (0-0.2); Basophils % (A) 1 %; Eosinophils # (A) 0.2 k/uL (0-0.7); Eosinophils % (A) 2 %; HCT 26.1 % (39.0-53.0); Hypochromasia Marked; Lymphocytes # (A) 1.4 k/uL (1.0-4.8); Lymphocytes % (A) 12 %; MCH 28.1 pg (25.0-35.0); MCHC 30.7 g/dL (31.0-37.0); MCV 91.5 fL (80.0-100.0); Mean Platelet Volume 6.4; Monocytes # (A) 1.1 k/uL (0-1.0); Monocytes % (A) 9 %; Neutrophils # (A) 9.1 k/uL (1.3-7.7); Neutrophils % (A) 76 %; Platelet Count 585 k/uL (150-450); RBC 2.85 m/uL (4.30-5.90); RDW 15.9 % (11.5-15.5); WBC 12.1 k/uL (3.8-10.6)
[2020-02-19 09:30] LABS: African American GFR (CKD) >90 (>60 ml/min/1.73 sqM); Anion Gap 8 mmol/L; Blood Urea Nitrogen 8 mg/dL (9-20); Calcium 8.9 mg/dL (8.4-10.2); Carbon Dioxide 29 mmol/L (22-30); Chloride 97 mmol/L (98-107); Glucose 83 mg/dL (74-99); Non-African American GFR(CKD) >90 (>60 ml/min/1.73 sqM); Potassium 3.9 mmol/L (3.5-5.1); Sodium 134 mmol/L (137-145)
[2020-02-19] MEDS: FOLIC ACID 1 MG TAB PO SCH (09:39)
[2020-02-19] MEDS: APIXABAN 5 MG TAB PO SCH ×2 (09:39→20:24)
[2020-02-19] MEDS: METOPROLOL TARTRATE 25 MG TAB PO SCH ×2 (09:39→20:25)
[2020-02-19] MEDS: ATORVASTATIN 10 MG TAB PO SCH (09:40)
[2020-02-19] MEDS: ASPIRIN 81 MG PO SCH (09:40)
[2020-02-19] MEDS: amLODIPine 10 MG TAB PO SCH (09:40)
[2020-02-19] MEDS: MAGNESIUM OXIDE 400 MG TAB PO SCH (09:40)
[2020-02-19] MEDS: valACYclovir 500 MG TAB PO SCH ×2 (09:41→20:25)
[2020-02-19] MEDS: PANTOPRAZOLE 40 MG TABLET PO SCH (09:41)
[2020-02-19] MEDS: NICOTINE 14MG/24HR PATCH TRANSDERM SCH (09:41)
[2020-02-19] MEDS: POTASSIUM CHLORIDE ER 10 MEQ TAB.ER.PRT PO SCH (09:41)
[2020-02-19] MEDS: MECLIZINE 12.5 MG TAB PO SCH ×2 (09:42→20:25)
[2020-02-19] MEDS: ESCITALOPRAM 10 MG TAB PO SCH (09:42)
[2020-02-19] MEDS: FUROSEMIDE 10 MG/ML 4 ML VIAL IV SCH ×2 (09:57→20:24)
[2020-02-19] MEDS: GABAPENTIN 400 MG CAP PO SCH ×3 (09:58→22:03)
[2020-02-19] MEDS: HYDROcodone/APAP 7.5-325MG 1 EACH TAB PO PRN ×2 (09:58→20:32)
--- NOTE | 2020-02-19 11:23 | P.CNPUL ---
History of Present Illness Consult date: 02/19/20 Requesting physician: Mitchell Guzmán Reason for consult: dyspnea Chief complaint: Shortness of breath History of present illness: This is a pleasant 59-year-old gentleman follows in our office for chronic obstructive pulmonary disease. He has chronic and ongoing tobacco dependence, marijuana use. He also has a history of a right upper lobe fungal pneumonia Aspergillus fumigatus back in March 2019 treated with Sporanox and Augmentin. Most recent chest x-ray shows near complete resolution. 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 He is known to have a previous fungal infection in the right upper lobe that was treated with itraconazole with good results. A repeat CAT scan of the chest was done in October 2019 and showed improving cavitary lesion in the the right upper lobe and possibly a new infiltrate in the left lung base above the diaphragm. Note that his most recent bronchioloalveolar lavage that was done on 09/17/2019 showed mckinley bacterium species and Larissa. He has had multiple admissions for COPD exacerbations was recently discharged from an extended care facility for rehabilitation following his most recent admission. He was at home in his apartment for 1 day and called EMS for increased shortness of breath. EMS stated the apartment had no air conditioning and was up to 105 and in very poor living condition. Chest x-ray continues to revealed nodular density at the right upper lobe and density of the left lower lobe as mentioned previously on the CAT scan from October 2019. He is seen today in consultation on the regular medical floor. Awake and alert in no acute distress. Maintaining O2 saturations in the 90s on 2 L/m per nasal cannula. She's afebrile. Hemodynamically stable. White count 12.1. Hemoglobin 8.0. Platelet count 585,000. Sodium 134. Potassium 3.9. Bicarb 29. Creatinine 0.58 proBNP 333. Troponin negative. He's been initiated on DuoNeb inhalations, antibiotics in the form of ceftriaxone and azithromycin, IV diuretics. Anticoagulated with Eliquis. NicoDerm patch in place. Review of Systems CONSTITUTIONAL: Denies any recent significant weight loss or weight gain. EYES: Denies change in vision. EARS, NOSE, MOUTH, THROAT: Denies headaches, denies sore throat. CARDIOVASCULAR: Denies chest pain, no palpitations no syncopal episodes. RESPIRATORY: Positive for shortness of breath, cough, congestion no hemoptysis. GASTROINTESTINAL: Denies change in appetite, denies abdominal pain GENITOURINARY: Denies hematuria, denies infections. MUSKULOSKELETAL: Denies pain, denies swelling. INTEGUMENTARY: Recent injury to the left lower extremity with sutures in place. Right lower extremity with skin tear.. NEUROLOGICAL: Denies recent memory loss, no recent seizure activity. PSYCHIATRIC: Denies anxiety, denies depression. HEMATOLOGIC/LYMPHATIC: Positive for anemia, denies enlarged lymph nodes. 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 Last Myocardial Infarction Date:: unknown History of Any Multi-Drug Resistant Organisms: None Reported Past Surgical History: Orthopedic Surgery Additional Past Surgical History / Comment(s): metal plate left hand middle finger, right eye enucleation. Past Anesthesia/Blood Transfusion Reactions: No Reported Reaction Past Psychological History: Anxiety, Depression, Panic Disorder Additional Psychological History / Comment(s): Lives in apartment. Has a nebulizer/oxygen. 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 Smoking Status: Former smoker Past Alcohol Use History: None Reported, Occasional Additional Past Alcohol Use History / Comment(s): STARTED SMOKING 1975 1 PPD- PT STATED HE DRINKS 1 BEER a day Past Drug Use History: Marijuana Additional Drug Use History / Comment(s): Pt states he uses marajuana at times. - Past Family History Mother Family Medical History: Cancer Additional Family Medical History / Comment(s): Pt believes his Mom of Kidney Cancer Father Family Medical History: Cancer, COPD, Respiratory Disorder Additional Family Medical History / Comment(s): Melanoma Medications and Allergies Home Medications Medication Instructions Recorded Confirmed Type amLODIPine [Norvasc] 10 mg PO DAILY 04/29/19 02/18/20 History Escitalopram [Lexapro] 10 mg PO DAILY #15 tab 05/15/19 02/18/20 Rx Melatonin 10 mg PO HS 08/12/19 02/18/20 History Metoprolol Tartrate [Lopressor] 25 mg PO BID #60 tab 09/30/19 02/18/20 Rx Aspirin EC [Ecotrin Low Dose] 81 mg PO DAILY 10/20/19 02/18/20 History Folic Acid 1 mg PO DAILY 10/20/19 02/18/20 History Pantoprazole Sodium [Protonix] 40 mg PO DAILY 10/20/19 02/18/20 History Montelukast [Singulair] 10 mg PO HS tab 10/23/19 02/18/20 Rx INSULIN ASPART (NovoLOG) [NovoLOG See Protocol SQ ACHS 01/03/20 02/18/20 History (formulary)] ALPRAZolam [Xanax] 0.25 mg PO BID PRN #3 tab 01/12/20 02/18/20 Rx Gabapentin 800 mg PO TID #9 tab 01/12/20 02/18/20 Rx HYDROcodone/APAP 7.5-325MG [[place] 1 tab PO Q6HR PRN 3 Days #12 tab 01/12/20 02/18/20 Rx 7.5-325] Methocarbamol [Robaxin-750] 750 mg PO HS #10 tab 01/12/20 02/18/20 Rx Atorvastatin [Lipitor] 10 mg PO HS 02/18/20 02/18/20 History Furosemide [Lasix] 40 mg PO DAILY 02/18/20 02/18/20 History Ipratropium-Albuterol Nebulize 3 ml INHALATION RT-Q4H PRN 02/18/20 02/18/20 History [Duoneb 0.5 mg-3 mg/3 ml Soln] Magnesium Oxide 400 mg PO DAILY 02/18/20 02/18/20 History Potassium Chloride ER [K-Dur 10] 10 meq PO DAILY 02/18/20 02/18/20 History valACYclovir [Valtrex] 500 mg PO BID 02/18/20 02/18/20 History Allergies Allergy/AdvReac Type Severity Reaction Status Date / Time tree nut [Nut] Allergy Unknown Dyspnea, Verified 02/18/20 21:14 Rash/Hives peanut [Peanut Butter] AdvReac Dyspnea, Verified 02/18/20 21:14 Rash/Hives Physical Exam Vitals: Vital Signs Temp Pulse Pulse Resp BP BP Pulse Ox 02/19/20 09:17 88 02/19/20 08:57 84 02/19/20 08:25 18 02/19/20 07:00 99.0 F 87 18 126/70 97 02/19/20 03:48 100 02/19/20 03:39 104 H 02/19/20 03:23 98.4 F 89 16 108/63 97 02/18/20 23:11 104 H 02/18/20 23:01 104 H 02/18/20 22:00 98.9 F 98 18 115/64 98 02/18/20 20:27 106 H 02/18/20 20:21 104 H 02/18/20 19:12 20 02/18/20 17:49 99.4 F 114 H 22 130/47 95 Intake and Output 02/18/20 02/19/20 02/19/20 22:59 06:59 14:59 Other: Voiding Method Urinal Incontinent # Voids 1 # Bowel Movements 1 Weight 74.389 kg 74.389 kg GENERAL EXAM: Alert, 59-year-old male patient, on 2 L of oxygen with a pulse ox of 97% comfortable in no apparent distress. HEAD: Normocephalic/atraumatic. EYES: Normal reaction of pupils, in the left eye, Conjunctiva pink, sclera white. Patient has a prosthetic right eye. NOSE: Clear with pink turbinates. THROAT: No erythema or exudates. NECK: No masses, no JVD, no thyroid enlargement, no adenopathy. CHEST: No chest wall deformity. Symmetrical expansion. LUNGS: Equal air entry clear, diminished CVS: Regular rate and rhythm, normal S1 and S2, no gallops, no murmurs, no rubs ABDOMEN: Soft, nontender. No hepatosplenomegaly, normal bowel sounds, no guarding or rigidity. EXTREMITIES: No clubbing, no edema, no cyanosis, 2+ pulses and upper and lower extremities. MUSCULOSKELETAL: Muscle strength and tone normal. SPINE: No scoliosis or deformity. SKIN: Laceration to the left lower extremity with sutures in place. No active bleeding. Skin tear to the right lower extremity. CENTRAL NERVOUS SYSTEM: No focal deficits, tone is normal in all 4 extremities. PSYCHIATRIC: Alert and oriented -3. Appropriate affect. Intact judgment and insight. Results - Laboratory Findings CBC and BMP: 02/19/20 08:51 02/19/20 08:51 PT/INR, D-dimer PT 10.4 sec (9.0-12.0) 02/18/20 21:53 INR 1.0 (<1.2) 02/18/20 21:53 Abnormal lab findings: Abnormal Labs 02/18/20 02/18/20 02/18/20 18:25 18:25 21:53 WBC 15.9 H RBC 3.14 L Hgb 8.7 L Hct 27.9 L MCHC RDW 16.1 H Plt Count 640 H Neutrophils # 12.6 H Monocytes # APTT 38.1 H Sodium 128 L Chloride 93 L BUN Creatinine 0.65 L Total Protein 6.0 L Albumin 3.4 L 02/19/20 02/19/20 08:51 08:51 WBC 12.1 H RBC 2.85 L Hgb 8.0 L Hct 26.1 L MCHC 30.7 L RDW 15.9 H Plt Count 585 H Neutrophils # 9.1 H Monocytes # 1.1 H APTT Sodium 134 L Chloride 97 L BUN 8 L Creatinine 0.58 L Total Protein Albumin - Diagnostic Findings Chest x-ray: image reviewed Assessment and Plan Assessment: 1 Acute exacerbation of severe oxygen dependent chronic obstructive pulmonary disease, FEV1 value 36% of predicted 2 Recent discharge from extended care facility, CoVID 19 test pending 3 Previous injury to the left lower extremity with laceration in the area of the tibia requiring suture placement at outside hospital ([facility]) 4 Chronic tobacco dependence 5 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 6 History of PE/DVT, anticoagulated with Eliquis. 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 Vogt Chest x-ray and labs reviewed Obtain a pro-calcitonin Await Covid screening Continue antibiotics for now Continue bronchodilators Again educated regarding the importance of complete smoking cessation NicoDerm patch in place environmental services aide consult We'll continue to follow and make further recommendations based on his clinical status I, the cosigning physician, performed a history & physical examination of the patient. Lungs sounds with faint bilateral end expiratory wheeze, diminished. Maintaining good O2 saturations in the 90s on 2 L/m per nasal cannula. I discussed the assessment and plan of care with my nurse practitioner, Crissy Bland. I attest to the above consultation as dictated by her. Time with Patient: Greater than 30
--- NOTE | 2020-02-19 14:11 | XR ---
EXAMINATION TYPE: XR chest 2V DATE OF EXAM: 02/19/2020 COMPARISON: 02/18/2020 TECHNIQUE: PA and lateral views submitted. HISTORY: Cough possible pneumonia FINDINGS: No pneumothorax or pleural effusion. Arthropathy of the shoulders. Biapical pleural thickening. There is a coarsened interstitium with basilar subsegmental consolidation. IMPRESSION: 1. Coarsened interstitium with bilateral lower lobe atelectasis or infiltrate. Correlate for intersti tial pneumonitis. Underlying chronic interstitial lung disease also in the differential diagnosis..
[2020-02-19] MEDS: MELATONIN 5 MG TABLET PO SCH (20:24)
[2020-02-19] MEDS: MONTELUKAST 10 MG TAB PO SCH (20:24)
[2020-02-19] MEDS: METHOCARBAMOL 750 MG TAB PO SCH (20:25)
[2020-02-19] MEDS: AZITHROMYCIN 500 MG TAB PO SCH (20:25)
[2020-02-19] MEDS: SODIUM CHLORIDE 0.9% 1,000 ML IV SCH (20:27)
[2020-02-19] MEDS: ALPRAZolam 0.25 MG TAB PO PRN (20:32)
--- NOTE | 2020-02-19 21:27 | PN ---
PROGRESS NOTE DATE OF SERVICE: 02/19/2020 This 59-year-old gentleman who was admitted with shortness of breath, had COPD acute exacerbation. The patient is suspected to have some evidence of cor pulmonale. The FEV1 is 36% predicted and the patient was recently discharged from the [facility]. The patient also had left lower extremity laceration. The patient being closely monitored. PAST MEDICAL HISTORY: Reviewed. REVIEW OF SYSTEMS: CARDIOVASCULAR SYSTEM: No angina or palpitations. RESPIRATION: As mentioned earlier. GI no nausea or vomiting. no dysuria. NERVOUS SYSTEM: No numbness or weakness. CURRENT MEDICATIONS: Reviewed and include: [place] 7.5, DuoNeb q.i.d., Xanax, Norvasc, Eliquis, aspirin, Lipitor, Zithromax, Rocephin, Lexapro, folic acid, Lasix, Neurontin, Dilaudid, magnesium oxide, Antivert, melatonin, Robaxin, Lopressor, Singulair, Habitrol, Protonix, K-Dur, Valtrex; doses reviewed. PHYSICAL EXAM: Patient is alert and oriented times three. Pulse 71, blood pressure 90/49, respirations 17, temperature 98.4, pulse ox 98% on 2 L. HEENT: Conjunctivae normal. NECK: No jugular venous distention. CARDIOVASCULAR: S1, S2 muffled. RESPIRATORY: Breath sounds diminished in the bases. Scattered rhonchi and crackles. ABDOMEN: Soft, nontender. LEGS are no edema. No swelling. NERVOUS SYSTEM: No focal deficits. LABS: WBC 12.2, hemoglobin is 8, otherwise sodium 134, potassium 3.9. Procalcitonin 0.28. ASSESSMENT: 1. Chronic obstructive pulmonary disease acute exacerbation with acute purulent tracheobronchitis with possible left lower pneumonia possibly gram-negative. 2. Possible acute on chronic cor pulmonale. 3. Increased WBC. 4. Anemia, normocytic. 5. Hyponatremia. 6. History of chronic obstructive pulmonary disease. 7. Cerebrovascular accident, transient ischemic attack. 8. History of deep vein thrombosis, pulmonary embolism. 9. Hypertension. 10.History of myocardial infarction. 11.History of pneumonia. 12.History of right upper lobe consolidation, possibly fungal Aspergillus fumigatus previously. 13.Chronic hypoxic respiratory failure on oxygen 2 L nasal cannula. 14.History of shingles. 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 16.Left lower extremity laceration healing. 17.History of anxiety, depression, panic disorder. 18.History of nicotine dependence. 19.Poor social support. 20.FULL CODE. RECOMMENDATIONS AND DISCUSSION: Recommend to continue current medications management and symptomatic treatment. Continue the bronchodilators. Continue with monitoring. Sodium is improved. Otherwise, I would also recommend a short course of IV steroids as well. Otherwise, monitor closely. The NT proBNP is only 33, but we will continue the diuretics cautiously for the cor pulmonale. Continue to monitor. Monitor blood sugars closely. Further recommendations to follow. PT/OT evaluation. MMODL / IJN: [id number] /
[2020-02-19 21:54] LABS: Glucose,Whole Blood 115 mg/dL (75-99)
[2020-02-19] MEDS: INSULIN ASPART (NovoLOG) 100 UNIT/ML VIAL SQ SCH (22:02)
[2020-02-19] MEDS: methylPREDNISolone SOD SUCCI 40 MG/ML 1 ML VIAL IV SCH (23:52)
[2020-02-20] MEDS: IPRATROPIUM-ALBUTEROL 3 ML NEB INHALATION SCH ×7 (00:33→23:32)
[2020-02-20 07:20] LABS: Glucose,Whole Blood 211 mg/dL (75-99)
[2020-02-20] MEDS: INSULIN ASPART (NovoLOG) 100 UNIT/ML VIAL SQ SCH ×4 (08:58→22:42)
[2020-02-20 09:38] LABS: African American GFR (CKD) >90 (>60 ml/min/1.73 sqM); Anion Gap 11 mmol/L; Blood Urea Nitrogen 7 mg/dL (9-20); Calcium 8.9 mg/dL (8.4-10.2); Carbon Dioxide 28 mmol/L (22-30); Chloride 97 mmol/L (98-107); Glucose 247 mg/dL (74-99); Non-African American GFR(CKD) >90 (>60 ml/min/1.73 sqM); Potassium 4.8 mmol/L (3.5-5.1); Sodium 136 mmol/L (137-145)
[2020-02-20] MEDS: FUROSEMIDE 10 MG/ML 4 ML VIAL IV SCH ×2 (10:08→22:40)
[2020-02-20] MEDS: ASPIRIN 81 MG PO SCH (10:08)
[2020-02-20] MEDS: GABAPENTIN 400 MG CAP PO SCH ×3 (10:08→22:41)
[2020-02-20] MEDS: POTASSIUM CHLORIDE ER 10 MEQ TAB.ER.PRT PO SCH (10:08)
[2020-02-20] MEDS: methylPREDNISolone SOD SUCCI 40 MG/ML 1 ML VIAL IV SCH ×2 (10:08→17:39)
[2020-02-20] MEDS: METOPROLOL TARTRATE 25 MG TAB PO SCH ×2 (10:09→22:41)
[2020-02-20] MEDS: FOLIC ACID 1 MG TAB PO SCH (10:09)
[2020-02-20] MEDS: amLODIPine 10 MG TAB PO SCH (10:09)
[2020-02-20] MEDS: ATORVASTATIN 10 MG TAB PO SCH (10:09)
[2020-02-20] MEDS: ALPRAZolam 0.25 MG TAB PO PRN ×2 (10:10→22:46)
[2020-02-20] MEDS: PANTOPRAZOLE 40 MG TABLET PO SCH (10:10)
[2020-02-20] MEDS: MAGNESIUM OXIDE 400 MG TAB PO SCH (10:10)
[2020-02-20] MEDS: APIXABAN 5 MG TAB PO SCH ×2 (10:10→22:41)
[2020-02-20] MEDS: NICOTINE 14MG/24HR PATCH TRANSDERM SCH (10:11)
[2020-02-20] MEDS: valACYclovir 500 MG TAB PO SCH ×2 (10:11→22:42)
[2020-02-20] MEDS: MECLIZINE 12.5 MG TAB PO SCH ×2 (10:12→22:42)
[2020-02-20] MEDS: ESCITALOPRAM 10 MG TAB PO SCH (10:12)
[2020-02-20 10:27] LABS: Basophils % (A) 0 %; Eosinophils # (A) 0.1 k/uL (0-0.7); Eosinophils % (A) 1 %; HGB 9.3 gm/dL (13.0-17.5); Hypochromasia Marked; Lymphocytes # (A) 0.5 k/uL (1.0-4.8); Lymphocytes % (A) 4 %; MCH 29.3 pg (25.0-35.0); MCHC 31.1 g/dL (31.0-37.0); MCV 94.2 fL (80.0-100.0); Mean Platelet Volume 7.4; Monocytes # (A) 0.1 k/uL (0-1.0); Monocytes % (A) 1 %; Neutrophils # (A) 11.6 k/uL (1.3-7.7); Neutrophils % (A) 94 %; Platelet Count 655 k/uL (150-450); RBC 3.18 m/uL (4.30-5.90); RDW 15.7 % (11.5-15.5); WBC 12.4 k/uL (3.8-10.6)
[2020-02-20] MEDS: HYDROcodone/APAP 7.5-325MG 1 EACH TAB PO PRN ×2 (10:31→17:39)
[2020-02-20 12:04] LABS: Glucose,Whole Blood 224 mg/dL (75-99)
[2020-02-20 17:01] LABS: Glucose,Whole Blood 276 mg/dL (75-99)
[2020-02-20 20:39] LABS: Glucose,Whole Blood 230 mg/dL (75-99)
--- NOTE | 2020-02-20 21:27 | PN ---
PROGRESS NOTE DATE OF SERVICE: 02/20/2020 This 59-year-old gentleman admitted with COPD acute exacerbation also had acute cor pulmonale. Most recent chest x-ray reviewed by me. No chest pain. No palpitations. No fever. PHYSICAL EXAMINATION: Alert and oriented x3. Pulse 83, blood pressure 102/50 respiration rate 22, temperature 97.7, pulse ox 98% on room air. HEENT: Conjunctivae normal. Oral mucosa moist. NECK: No jugular venous distention. No lymph node enlargement. CARDIOVASCULAR: S1, S2, muffled. No S3, no S4, RESPIRATORY: Diminished breath sounds at the bases. A few scattered rhonchi and crackles. ABDOMEN: Soft, nontender. LEGS: No edema, no swelling. NERVOUS SYSTEM: No focal motor or sensory deficits. LABS: WBC 12.2, hemoglobin 9.7, sodium 136. ASSESSMENT: 1. Chronic obstructive pulmonary disease acute exacerbation with acute purulent tracheobronchitis with possible left lower lobe pneumonia, possibly gram-negative. 2. Possible acute on chronic cor pulmonale. 3. Increased WBC. 4. Anemia, normocytic. 5. Hyponatremia. 6. History of chronic obstructive pulmonary disease. 7. Cerebrovascular accident/transient ischemia attack. 8. History of deep venous thrombosis. 9. Pulmonary embolism. 10.Hypertension. 11.History of myocardial infarction. 12.History of pneumonia. 13.History of right upper lobe consolidation, possible fungal Aspergillus fumigatus previously. 14.History of chronic hypoxic respiratory failure on 2 L nasal cannula. 15.History of shingles. 16.History of basal ganglia hemorrhage in 2015 with right-sided weakness. 17.Left lower extremity laceration, healing. 18.History of anxiety, depression, panic disorder. 19.History of nicotine dependence. 20.Poor social support. 21.FULL CODE. RECOMMENDATIONS AND DISCUSSION: Recommend to continue current medications, monitor and symptomatic treatment. Otherwise, monitor closely. Closely follow with Pulmonary. Guarded prognosis. Further recommendations to follow. MMODL / IJN: [id number] /
[2020-02-20] MEDS: MELATONIN 5 MG TABLET PO SCH (22:41)
[2020-02-20] MEDS: MONTELUKAST 10 MG TAB PO SCH (22:41)
[2020-02-20] MEDS: METHOCARBAMOL 750 MG TAB PO SCH (22:42)
[2020-02-20] MEDS: AZITHROMYCIN 500 MG TAB PO SCH (22:42)
[2020-02-20] MEDS: SODIUM CHLORIDE 0.9% 1,000 ML IV SCH (22:44)
[2020-02-21] MEDS: methylPREDNISolone SOD SUCCI 40 MG/ML 1 ML VIAL IV SCH ×3 (00:13→17:53)
[2020-02-21] MEDS: HYDROcodone/APAP 7.5-325MG 1 EACH TAB PO PRN ×4 (00:13→22:23)
[2020-02-21] MEDS: IPRATROPIUM-ALBUTEROL 3 ML NEB INHALATION SCH ×6 (03:37→23:58)
[2020-02-21 08:05] LABS: Glucose,Whole Blood 218 mg/dL (75-99)
[2020-02-21] MEDS: FUROSEMIDE 10 MG/ML 4 ML VIAL IV SCH ×2 (09:04→22:21)
[2020-02-21] MEDS: INSULIN ASPART (NovoLOG) 100 UNIT/ML VIAL SQ SCH ×4 (09:04→22:22)
[2020-02-21] MEDS: POTASSIUM CHLORIDE ER 10 MEQ TAB.ER.PRT PO SCH (09:05)
[2020-02-21] MEDS: METOPROLOL TARTRATE 25 MG TAB PO SCH ×2 (09:05→22:20)
[2020-02-21] MEDS: GABAPENTIN 400 MG CAP PO SCH ×3 (09:05→22:20)
[2020-02-21] MEDS: FOLIC ACID 1 MG TAB PO SCH (09:05)
[2020-02-21] MEDS: amLODIPine 10 MG TAB PO SCH (09:05)
[2020-02-21] MEDS: PANTOPRAZOLE 40 MG TABLET PO SCH (09:05)
[2020-02-21] MEDS: APIXABAN 5 MG TAB PO SCH ×2 (09:05→22:20)
[2020-02-21] MEDS: MAGNESIUM OXIDE 400 MG TAB PO SCH (09:05)
[2020-02-21] MEDS: ATORVASTATIN 10 MG TAB PO SCH (09:05)
[2020-02-21] MEDS: ASPIRIN 81 MG PO SCH (09:05)
[2020-02-21] MEDS: NICOTINE 14MG/24HR PATCH TRANSDERM SCH (09:06)
[2020-02-21 09:14] LABS: Anisocytosis Slight; Basophils % (A) 0 %; Eosinophils # (A) 0.2 k/uL (0-0.7); Eosinophils % (A) 1 %; HCT 28.8 % (39.0-53.0); HGB 8.6 gm/dL (13.0-17.5); Hypochromasia Marked; Lymphocytes # (A) 0.7 k/uL (1.0-4.8); Lymphocytes % (A) 5 %; MCH 27.5 pg (25.0-35.0); MCV 91.7 fL (80.0-100.0); Mean Platelet Volume 7.1; Monocytes # (A) 0.4 k/uL (0-1.0); Monocytes % (A) 3 %; Neutrophils # (A) 13.6 k/uL (1.3-7.7); Neutrophils % (A) 91 %; Platelet Count 671 k/uL (150-450); RBC 3.14 m/uL (4.30-5.90); RDW 16.2 % (11.5-15.5); WBC 14.9 k/uL (3.8-10.6)
[2020-02-21] MEDS: valACYclovir 500 MG TAB PO SCH ×2 (09:20→22:20)
[2020-02-21] MEDS: ESCITALOPRAM 10 MG TAB PO SCH (09:20)
[2020-02-21] MEDS: MECLIZINE 12.5 MG TAB PO SCH ×2 (09:20→22:21)
[2020-02-21 09:21] LABS: African American GFR (CKD) >90 (>60 ml/min/1.73 sqM); Anion Gap 10 mmol/L; Blood Urea Nitrogen 14 mg/dL (9-20); Calcium 9.1 mg/dL (8.4-10.2); Carbon Dioxide 29 mmol/L (22-30); Chloride 98 mmol/L (98-107); Glucose 160 mg/dL (74-99); Non-African American GFR(CKD) >90 (>60 ml/min/1.73 sqM); Potassium 4.4 mmol/L (3.5-5.1); Sodium 137 mmol/L (137-145)
[2020-02-21 12:08] LABS: Glucose,Whole Blood 167 mg/dL (75-99)
[2020-02-21 16:54] LABS: Glucose,Whole Blood 162 mg/dL (75-99)
[2020-02-21 20:03] LABS: Glucose,Whole Blood 203 mg/dL (75-99)
[2020-02-21] MEDS: MELATONIN 5 MG TABLET PO SCH (22:20)
[2020-02-21] MEDS: METHOCARBAMOL 750 MG TAB PO SCH (22:21)
[2020-02-21] MEDS: AZITHROMYCIN 500 MG TAB PO SCH (22:21)
[2020-02-21] MEDS: MONTELUKAST 10 MG TAB PO SCH (22:23)
[2020-02-21] MEDS: SODIUM CHLORIDE 0.9% 1,000 ML IV SCH (22:23)
[2020-02-22] MEDS: methylPREDNISolone SOD SUCCI 40 MG/ML 1 ML VIAL IV SCH ×2 (00:07→08:01)
--- NOTE | 2020-02-22 02:00 | PN ---
PROGRESS NOTE DATE OF SERVICE: 02/21/2020 This 59-year-old gentleman who was admitted with COPD acute exacerbation, acute purulent tracheobronchitis also had acute on chronic cor pulmonale. Patient has been closely monitored. No chest pain. No palpitations. No fever. PHYSICAL EXAMINATION: On exam, alert and oriented x3. Pulse is 87, blood pressure 99/58, respiration 18, temperature 97.9, pulse ox 98% on 3 L. HEENT: Conjunctivae normal. NECK: No jugular venous distention. CARDIOVASCULAR: S1, S2 muffled. RESPIRATORY: Breath sounds diminished at the bases. A few scattered rhonchi and crackles. ABDOMEN: Soft, nontender. LEGS: No edema. No swelling. NERVOUS SYSTEM: No focal deficits. LABS: WBC 14.9, hemoglobin is 8.6. Accu-Cheks noted. ASSESSMENT: 1. Chronic obstructive pulmonary disease acute exacerbation with acute purulent tracheobronchitis with possible left lower lobe pneumonia possibly gram-negative. 2. Possible acute on chronic cor pulmonale, present on admission. 3. Increased WBC. 4. Anemia, normocytic. 5. Hyponatremia. 6. History of chronic obstructive pulmonary disease. 7. History of cerebrovascular accident. 8. History of deep vein thrombosis. 9. History of pulmonary embolism. 10.Hypertension. 11.History of myocardial infarction. 12.History of pneumonia. 13.History of right upper lobe consolidation, possibly fungal Aspergillus fumigatus previously. 14.History of chronic hypoxic respiratory failure on 2 L nasal cannula. 15.History of shingles. 16.History of basal ganglia hemorrhage in 2015 with right-sided weakness. 17.Left lower extremity laceration healing. 18.History of anxiety, depression, panic disorder. 19.History of nicotine dependence. 20.Poor social support. 21.FULL CODE. RECOMMENDATIONS AND DISCUSSION: Recommend to continue current medications, continue bronchodilators, continue steroids, continue antibiotics, continues diuretics, limited fluid intake. Prognosis guarded because of multiple complex medical issues. Further recommendations to follow. MMODL / IJN: [id number] /
[2020-02-22] MEDS: IPRATROPIUM-ALBUTEROL 3 ML NEB INHALATION SCH ×3 (03:38→12:08)
[2020-02-22] MEDS: HYDROcodone/APAP 7.5-325MG 1 EACH TAB PO PRN ×2 (04:32→11:19)
[2020-02-22 07:15] LABS: Glucose,Whole Blood 198 mg/dL (75-99)
[2020-02-22 08:01] VITALS: BP 106/55; TEMP 97.9
[2020-02-22] MEDS: NICOTINE 14MG/24HR PATCH TRANSDERM SCH (08:01)
[2020-02-22] MEDS: METOPROLOL TARTRATE 25 MG TAB PO SCH (08:02)
[2020-02-22] MEDS: INSULIN ASPART (NovoLOG) 100 UNIT/ML VIAL SQ SCH ×2 (08:02→13:03)
[2020-02-22] MEDS: GABAPENTIN 400 MG CAP PO SCH (08:02)
[2020-02-22] MEDS: FUROSEMIDE 10 MG/ML 4 ML VIAL IV SCH (08:02)
[2020-02-22] MEDS: ATORVASTATIN 10 MG TAB PO SCH (08:02)
[2020-02-22] MEDS: ESCITALOPRAM 10 MG TAB PO SCH (08:03)
[2020-02-22] MEDS: ASPIRIN 81 MG PO SCH (08:03)
[2020-02-22] MEDS: FOLIC ACID 1 MG TAB PO SCH (08:03)
[2020-02-22] MEDS: amLODIPine 10 MG TAB PO SCH (08:03)
[2020-02-22] MEDS: MAGNESIUM OXIDE 400 MG TAB PO SCH (08:03)
[2020-02-22] MEDS: PANTOPRAZOLE 40 MG TABLET PO SCH (08:03)
[2020-02-22] MEDS: POTASSIUM CHLORIDE ER 10 MEQ TAB.ER.PRT PO SCH (08:03)
[2020-02-22] MEDS: MECLIZINE 12.5 MG TAB PO SCH (08:03)
[2020-02-22] MEDS: APIXABAN 5 MG TAB PO SCH (08:04)
[2020-02-22] MEDS: valACYclovir 500 MG TAB PO SCH (08:04)
[2020-02-22 09:03] VITALS: RESP 20
[2020-02-22] MEDS ORDERED: LEVOFLOXACIN 500 MG TAB PO SCH (11:00)
[2020-02-22 11:13] LABS: Glucose,Whole Blood 167 mg/dL (75-99)
--- NOTE | 2020-02-22 12:19 | P.DS ---
Providers Date of admission: 02/18/20 19:54 Expected date of discharge: 02/22/20 Attending physician: Mitcehll Guzmán Consults: 02/18/20 22:28 Consult Physician Routine Consulting Provider: Willie Garcia Consult Reason/Comments: copd Do you want consulting provider notified?: Yes Primary care physician: Urszula Carrasco [facility] Course: Final diagnosis Chronic obstructive pulmonary disease, acute issue and with acute purulent tracheobronchitis with possible left lower lobe pneumonia possibly gram-negative Possible acute on chronic cor pulmonale, present on admission Increased WBC Anemia, normocytic Hyponatremia History of COPD History of CVA History of deep vein thrombosis History of pulmonary embolism Hypertension History of myocardial infarction History of pneumonia history of right upper lobe consolidation, 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 for continued PT/OT therapy. Patient will follow-up with Dr. Urszula Carrasco in the outpatient setting upon discharge. Patient is to continue with oral antibiotics in the form of Levaquin once daily for the next 5 days and then may discontinue. Patient will also continue on a prednisone taper. Total time taken is greater than 35 minutes. History of present illness This is a 59-year-old male who was recently admitted with COPD acute exacerbation, acute purulent tracheobronchitis and also acute on chronic cor pulmonale and was being closely monitored. Pulmonary following. Patient was initiated on IV antibiotics in the form of ceftriaxone along with azithromycin and will be transitioned to Levaquin 500 mg daily for the next 5 days. Patient was also continued on bronchodilators along with IV steroids and will continue on a prednisone taper in the outpatient setting. Patient is to continue with breathing treatments. Patient needs blood sugar monitoring before meals at bedtime and treat accordingly with sliding scale. Patient to continue on a consistent carb heart healthy diet. Patient will follow up with pulmonary in the outpatient setting. Currently no reports of chest pain, worsening shortness of breath, or palpitations. Patient is afebrile. No reports of nausea or vomiting and patient is tolerating diet. Patient will be going to [facility] today. On exam vital signs are stable. Temp is 97.9F, pulse is 99, respirations are 16, blood pressure is 106/55, oxygen saturation is 96% on 2 L via nasal cannula. Cardio S1, S2 are muffled. Respiratory system shows diminished breath sounds at the bases with some scattered rhonchi noted. Abdomen is soft and obese, and nontender. Nervous system shows diffuse weakness. Please refer to medication reconciliation sheet for a list of medications. Patient Condition at Discharge: Fair Plan - Discharge Summary New Discharge Prescriptions: New Meclizine [Antivert] 12.5 mg PO Q12HR tab Apixaban [Eliquis] 5 mg PO BID tab Nicotine 14Mg/24Hr Patch [Habitrol] 1 patch TRANSDERM DAILY patch Levofloxacin [Levaquin] 500 mg PO Q24H 5 Days #5 tab predniSONE 10 mg PO DIRECTED #30 tab Continue amLODIPine [Norvasc] 10 mg PO DAILY Escitalopram [Lexapro] 10 mg PO DAILY #15 tab Melatonin 10 mg PO HS Metoprolol Tartrate [Lopressor] 25 mg PO BID #60 tab Pantoprazole Sodium [Protonix] 40 mg PO DAILY Folic Acid 1 mg PO DAILY Aspirin EC [Ecotrin Low Dose] 81 mg PO DAILY Montelukast [Singulair] 10 mg PO HS tab INSULIN ASPART (NovoLOG) [NovoLOG (formulary)] See Protocol SQ ACHS Methocarbamol [Robaxin-750] 750 mg PO HS #10 tab valACYclovir [Valtrex] 500 mg PO BID Potassium Chloride ER [K-Dur 10] 10 meq PO DAILY Magnesium Oxide 400 mg PO DAILY Ipratropium-Albuterol Nebulize [Duoneb 0.5 mg-3 mg/3 ml Soln] 3 ml INHALATION RT-Q4H PRN PRN Reason: Shortness Of Breath Atorvastatin [Lipitor] 10 mg PO HS Gabapentin 800 mg PO TID #9 tab HYDROcodone/APAP 7.5-325MG [[place] 7.5-325] 1 tab PO Q6HR PRN 3 Days #12 tab PRN Reason: Pain ALPRAZolam [Xanax] 0.25 mg PO BID PRN #3 tab PRN Reason: Anxiety Changed Furosemide [Lasix] 20 mg PO DAILY #0 Discharge Medication List amLODIPine [Norvasc] 10 mg PO DAILY 04/29/19 [History] Escitalopram [Lexapro] 10 mg PO DAILY #15 tab 05/15/19 [Rx] Melatonin 10 mg PO HS 08/12/19 [History] Metoprolol Tartrate [Lopressor] 25 mg PO BID #60 tab 09/30/19 [Rx] Aspirin EC [Ecotrin Low Dose] 81 mg PO DAILY 10/20/19 [History] Folic Acid 1 mg PO DAILY 10/20/19 [History] Pantoprazole Sodium [Protonix] 40 mg PO DAILY 10/20/19 [History] Montelukast [Singulair] 10 mg PO HS tab 10/23/19 [Rx] INSULIN ASPART (NovoLOG) [NovoLOG (formulary)] See Protocol SQ ACHS 01/03/20 [History] Methocarbamol [Robaxin-750] 750 mg PO HS #10 tab 01/12/20 [Rx] Atorvastatin [Lipitor] 10 mg PO HS 02/18/20 [History] Ipratropium-Albuterol Nebulize [Duoneb 0.5 mg-3 mg/3 ml Soln] 3 ml INHALATION RT-Q4H PRN 02/18/20 [History] Magnesium Oxide 400 mg PO DAILY 02/18/20 [History] Potassium Chloride ER [K-Dur 10] 10 meq PO DAILY 02/18/20 [History] valACYclovir [Valtrex] 500 mg PO BID 02/18/20 [History] ALPRAZolam [Xanax] 0.25 mg PO BID PRN #3 tab 02/22/20 [Rx] Apixaban [Eliquis] 5 mg PO BID tab 02/22/20 [Rx] Furosemide [Lasix] 20 mg PO DAILY #0 02/22/20 [Rx] Gabapentin 800 mg PO TID #9 tab 02/22/20 [Rx] HYDROcodone/APAP 7.5-325MG [[place] 7.5-325] 1 tab PO Q6HR PRN 3 Days #12 tab 02/22/20 [Rx] Levofloxacin [Levaquin] 500 mg PO Q24H 5 Days #5 tab 02/22/20 [Rx] Meclizine [Antivert] 12.5 mg PO Q12HR tab 02/22/20 [Rx] Nicotine 14Mg/24Hr Patch [Habitrol] 1 patch TRANSDERM DAILY patch 02/22/20 [Rx] predniSONE 10 mg PO DIRECTED #30 tab 02/22/20 [Rx] Follow up Appointment(s)/Referral(s): [facility], [NON-STAFF] - As Needed Urszula Carrasco MD [Primary Care Provider] - 1-2 days (After ECF) Activity/Diet/Wound Care/Special Instructions: Patient is going to [facility] Activity as tolerated Continue monitoring blood sugars before meals just treat accordingly with slidi ng scale Any with antibiotics for 5 days then may discontinue Continue prednisone taper Discharge Disposition: TRANSFER TO SNF/ECF
[2020-02-22 12:21] VITALS: PULSE 88
--- NOTE | 2020-02-22 13:07 | P.PN ---
Subjective Progress Note Date: 02/22/20 Principal diagnosis: Shortness of breath This is a pleasant 59-year-old gentleman follows in our office for chronic obstructive pulmonary disease. He has chronic and ongoing tobacco dependence, marijuana use. He also has a history of a right upper lobe fungal pneumonia Aspergillus fumigatus back in March 2019 treated with Sporanox and Augmentin. Most recent chest x-ray shows near complete resolution. 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 He is known to have a previous fungal infection in the right upper lobe that was treated with itraconazole with good results. A repeat CAT scan of the chest was done in October 2019 and showed improving cavitary lesion in the the right upper lobe and possibly a new infiltrate in the left lung base above the diaphragm. Note that his most recent bronchioloalveolar lavage that was done on 09/17/2019 showed mckinley bacterium species and Larissa. He has had multiple admissions for COPD exacerbations was recently discharged from an extended care facility for rehabilitation following his most recent admission. He was at home in his apartment for 1 day and called EMS for increased shortness of breath. EMS stated the apartment had no air conditioning and was up to 105 and in very poor living condition. Chest x-ray continues to revealed nodular density at the right upper lobe and density of the left lower lobe as mentioned previously on the CAT scan from October 2019. He is seen today in consultation on the regular medical floor. Awake and alert in no acute distress. Maintaining O2 saturations in the 90s on 2 L/m per nasal cannula. She's afebrile. Hemodynamically stable. White count 12.1. Hemoglobin 8.0. Platelet count 585,000. Sodium 134. Potassium 3.9. Bicarb 29. Creatinine 0.58 proBNP 333. Troponin negative. He's been initiated on DuoNeb inhalations, antibiotics in the form of ceftriaxone and azithromycin, IV diuretics. Anticoagulated with Eliquis. NicoDerm patch in place. On 02/22/2020 patient seen in follow-up on the general medical floor. Feeling better today, he sitting up on his dementia, currently on 3 L of oxygen a pulse ox of 95%, no fever chills, but signs are stable. No rhonchi or wheezing, some "limited crackles in bilateral bases, trace pretibial edema involving bilateral lower extremities, patient is on IV Lasix 41 g every 12 hours, azithromycin empirically abiotic coverage, IV steroids. No acute events overnight, no fever or chills. Pro-calcitonin level was elevated to 0.28 suggesting presence of bacterial infection. Patient has occasional cough, and he states he is not able to bring up much sputum. No acute events overnight, discharge planning is in progress for discharge to care home facility at [facility] Objective - Vital Signs Vital signs: Vital Signs Temp 97.9 F 02/22/20 07:00 Pulse 88 02/22/20 12:20 Resp 20 02/22/20 12:20 BP 106/55 02/22/20 07:00 Pulse Ox 95 02/22/20 08:59 Intake & Output 02/21/20 02/22/20 02/22/20 18:59 06:59 18:59 Intake Total 888 60 Output Total 900 300 Balance 888 -840 -300 Intake: Oral 888 60 Output: Urine 900 300 Other: Voiding Method Urinal Urinal Incontinent Incontinent # Voids 2 # Bowel Movements 1 - Exam GENERAL EXAM: Alert, 59-year-old male patient, on 2 L of oxygen with a pulse ox of 95% comfortable in no apparent distress. HEAD: Normocephalic/atraumatic. EYES: Normal reaction of pupils, in the left eye, Conjunctiva pink, sclera white. Patient has a prosthetic right eye. NOSE: Clear with pink turbinates. THROAT: No erythema or exudates. NECK: No masses, no JVD, no thyroid enlargement, no adenopathy. CHEST: No chest wall deformity. Symmetrical expansion. LUNGS: Equal air entry clear, diminished at bases, with limited crackles CVS: Regular rate and rhythm, normal S1 and S2, no gallops, no murmurs, no rubs ABDOMEN: Soft, nontender. No hepatosplenomegaly, normal bowel sounds, no guarding or rigidity. EXTREMITIES: No clubbing, trace pretibial edema, no cyanosis, 2+ pulses and upper and lower extremities. MUSCULOSKELETAL: Muscle strength and tone normal. SPINE: No scoliosis or deformity. SKIN: Laceration to the left lower extremity with sutures in place. No active bleeding. Skin tear to the right lower extremity. CENTRAL NERVOUS SYSTEM: No focal deficits, tone is normal in all 4 extremities. PSYCHIATRIC: Alert and oriented -3. Appropriate affect. Intact judgment and insight. - Labs CBC & Chem 7: 02/21/20 08:21 02/21/20 08:21 Labs: Abnormal Lab Results - Last 24 Hours (Table) 02/21/20 02/21/20 02/22/20 Range/Units 16:50 20:00 07:13 POC Glucose (mg/dL) 162 H 203 H 198 H (75-99) mg/dL 02/22/20 Range/Units 11:10 POC Glucose (mg/dL) 167 H (75-99) mg/dL Assessment and Plan Plan: Assessment: 1 Acute exacerbation of severe oxygen dependent chronic obstructive pulmonary disease, FEV1 value 36% of predicted 2 Recent discharge from extended care facility, CoVID 19 test pending 3 Previous injury to the left lower extremity with laceration in the area of the tibia requiring suture placement at outside hospital ([facility]) 4 Chronic tobacco dependence 5 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 6 History of PE/DVT, anticoagulated with Eliquis. 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 today from pulmonary perspective I performed a history & physical examination of the patient and discussed their management with my nurse practitioner, Jeane Hwang. I reviewed the nurse practitioner's note and agree with the documented findings and plan of care. Lung sounds are positive for diminished breath sounds. The findings and the impression was discussed with the patient. I attest to the documentation by the nurse practitioner. Time with Patient: Less than 30
--- NOTE | 2020-02-24 15:59 | ECHOF ---
Referral Reason:chf MEASUREMENTS -------- HEIGHT: 170.2 cm WEIGHT: 75.7 kg BP: 108/63 RVIDd: 3.2 cm (< 3.3) IVSd: 1.3 cm (0.6 - 1.1) LVIDd: 4.6 cm (3.9 - 5.3) LVPWd: 1.7 cm (0.6 - 1.1) IVSs: 2.1 cm LVIDs: 2.5 cm LVPWs: 1.9 cm Ao Diam: 3.1 cm (2.0 - 3.7) AV Cusp: 2.2 cm (1.5 - 2.6) LA Diam: 3.0 cm (2.7 - 3.8) MV EXCURSION: 14.425 mm (> 18.000) MV EF SLOPE: 118 mm/s (70 - 150) EPSS: 0.5 cm MV E Eugene: 1.04 m/s MV DecT: 171 ms MV A Eugene: 0.95 m/s MV E/A Ratio: 1.09 RAP: 5.00 mmHg RVSP: 12.51 mmHg FINDINGS -------- Sinus rhythm. This was a technically adequate study. The left ventricular size is normal. There is mild concentric left ventricular hypertrophy. Overa ll left ventricular systolic function is normal with, an EF between 55 - 60 %. The right ventricle is normal in size. The left atrial size is normal. The right atrial size is normal. Interatrial and interventricular septum intact. The aortic valve is trileaflet and appears structurally normal. The mitral valve is normal. Mild mitral regurgitation is present. The tricuspid valve appears structurally normal. Trace tricuspid regurgitation present. Right jitendra tricular systolic pressure is normal at < 35 mmHg. There is no pulmonic regurgitation present. The aortic root size is normal. Normal inferior vena cava with normal inspiratory collapse consistent with estimated right atrial pre ssure of 5 mmHg. There is no pericardial effusion. CONCLUSIONS -------- 1. Sinus rhythm. 2. This was a technically adequate study. 3. The left ventricular size is normal. 4. There is mild concentric left ventricular hypertrophy. 5. Overall left ventricular systolic function is normal with, an EF between 55 - 60 %. 6. The right ventricle is normal in size. 7. The left atrial size is normal. 8. The right atrial size is normal. 9. Interatrial and interventricular septum intact. 10. The aortic valve is trileaflet and appears structurally normal. 11. The mitral valve is normal. 12. Mild mitral regurgitation is present. 13. The tricuspid valve appears structurally normal. 14. Trace tricuspid regurgitation present. 15. Right ventricular systolic pressure is normal at < 35 mmHg. 16. There is no pulmonic regurgitation present. 17. The aortic root size is normal. 18. Normal inferior vena cava with normal inspiratory collapse consistent with estimated right atrial pressure of 5 mmHg. 19. There is no pericardial effusion. ROUTER TENDER: Jessica Garcia RDCS
== END 2020-02-22 14:32 | DRG 178 ==
LOC: EC 17:43 → 4SSUR 19:54
PROVIDERS: ADMIT Internal Medicine; ATTEND Internal Medicine
DX: J15.6 Pneumonia due to other Gram-negative bacteria (principal); J44.1 Chronic obstructive pulmonary disease with (acute) exacerbation; J44.0 Chronic obstructive pulmonary disease with (acute) lower respiratory infection; J96.11 Chronic respiratory failure with hypoxia; E87.1 Hypo-osmolality and hyponatremia; M87.9 Osteonecrosis, unspecified; Z20.828 Contact with and (suspected) exposure to other viral communicable diseases; E11.42 Type 2 diabetes mellitus with diabetic polyneuropathy; I27.81 Cor pulmonale (chronic); I69.331 Monoplegia of upper limb following cerebral infarction affecting right dominant side; E11.9 Type 2 diabetes mellitus without complications; Z79.4 Long term (current) use of insulin; F17.210 Nicotine dependence, cigarettes, uncomplicated; I10 Essential (primary) hypertension; B02.9 Zoster without complications; H54.40 Blindness, one eye, unspecified eye; S49.92XA Unspecified injury of left shoulder and upper arm, initial encounter; M75.01 Adhesive capsulitis of right shoulder; G89.29 Other chronic pain; F41.0 Panic disorder [episodic paroxysmal anxiety]; F41.9 Anxiety disorder, unspecified; F32.9 Major depressive disorder, single episode, unspecified; D64.9 Anemia, unspecified; K21.9 Gastro-esophageal reflux disease without esophagitis; S81.812D Laceration without foreign body, left lower leg, subsequent encounter; J20.9 Acute bronchitis, unspecified; E66.9 Obesity, unspecified; X58.XXXD Exposure to other specified factors, subsequent encounter; X58.XXXA Exposure to other specified factors, initial encounter; Z68.25 Body mass index [BMI] 25.0-25.9, adult; I25.2 Old myocardial infarction; Z79.899 Other long term (current) drug therapy; Z79.51 Long term (current) use of inhaled steroids; Z79.82 Long term (current) use of aspirin; Z79.01 Long term (current) use of anticoagulants; Z86.711 Personal history of pulmonary embolism; Z87.01 Personal history of pneumonia (recurrent); Z99.81 Dependence on supplemental oxygen; Z87.81 Personal history of (healed) traumatic fracture; Z86.718 Personal history of other venous thrombosis and embolism; Z63.8 Other specified problems related to primary support group; Z71.6 Tobacco abuse counseling; Z91.018 Allergy to other foods; Z91.010 Allergy to peanuts; Z80.51 Family history of malignant neoplasm of kidney; Z80.8 Family history of malignant neoplasm of other organs or systems; Z82.5 Family history of asthma and other chronic lower respiratory diseases
CPT/HCPCS: 36415; 71046; 80048; 80053; 82550; 83605; 83735; 83880; 84145; 84484; 85025; 85610; 85730; 93005; 93306; 94640; 94760; 96365; 99285

== ENCOUNTER 2020-05-23 19:06 | Inpatient (IN) | payer OTHER ==
[2020-05-23] MEDS ORDERED: IPRATROPIUM-ALBUTEROL 3 ML NEB INHALATION STA (19:40)
--- NOTE | 2020-05-23 19:56 | ED ---
SOB HPI - General Chief Complaint: Shortness of Breath Stated Complaint: Diff Breathing Time Seen by Provider: 05/23/20 19:15 Source: patient, EMS Mode of arrival: EMS Limitations: no limitations - History of Present Illness Initial Comments: Patient is a 59-year-old male well-known to the emergency department who presents today with reported shortness of breath. Patient does have a history of COPD. He wears 3-4 L normally at home. Patient has been in rehab at [facility] for several months. Report is discharged home on Saturday. Patient has had difficulty caring for himself. Does not have any home healthcare. States he has had difficulty completing his breathing treatments. His breathing has gotten progressively worse. He fell out of his wheelchair earlier today and had difficulty calling for help. Patient's spent a prolonged period of time on the floor before he was able to call EMS. Patient does admit to hitting his head when he fell. No loss of consciousness. Patient arrives covered in mice feces and urine. Patient grossly unable to care for self. He denies cough or hemoptysis. No fevers or chills. His abdominal pain. Reports chronic pain in his left lower trauma. No other alleviating, precipitating or modifying factors - Related Data Home Medications Medication Instructions Recorded Confirmed amLODIPine [Norvasc] 10 mg PO DAILY 04/29/19 05/23/20 Melatonin 10 mg PO HS PRN 08/12/19 05/23/20 Aspirin EC [Ecotrin Low Dose] 81 mg PO DAILY 10/20/19 05/23/20 Folic Acid 1 mg PO DAILY 10/20/19 05/23/20 Atorvastatin [Lipitor] 10 mg PO HS 02/18/20 05/23/20 Ipratropium-Albuterol Nebulize 3 ml INHALATION RT-Q4H PRN 02/18/20 05/23/20 [Duoneb 0.5 mg-3 mg/3 ml Soln] valACYclovir [Valtrex] 1,000 mg PO Q8H 02/18/20 05/24/20 ALPRAZolam [Xanax] 0.25 mg PO BID 05/24/20 05/23/20 Ferrous Sulfate [Feosol] 325 mg PO DAILY 05/24/20 05/24/20 Gabapentin 300 mg PO Q8H 05/24/20 05/24/20 HYDROcodone/APAP 5-325MG [[place] 1 tab PO Q8H PRN 05/24/20 05/24/20 5-325] Meclizine [Antivert] 12.5 mg PO Q8H 05/24/20 05/24/20 Menthol [Biofreeze] 1 applic TOPICAL Q12H PRN 05/24/20 05/24/20 Methocarbamol [Robaxin-750] 1,500 mg PO Q8H PRN 05/24/20 05/24/20 Pantoprazole Sodium [Protonix] 40 mg PO DAILY 05/24/20 05/24/20 Previous Rx's Medication Instructions Recorded Escitalopram [Lexapro] 10 mg PO DAILY #15 tab 05/15/19 Metoprolol Tartrate [Lopressor] 25 mg PO BID #60 tab 09/30/19 Montelukast [Singulair] 10 mg PO HS tab 10/23/19 Apixaban [Eliquis] 5 mg PO BID tab 02/22/20 Allergies Allergy/AdvReac Type Severity Reaction Status Date / Time tree nut [Nut] Allergy Unknown Dyspnea, Verified 02/18/20 21:14 Rash/Hives peanut [Peanut Butter] AdvReac Dyspnea, Verified 02/18/20 21:14 Rash/Hives Review of Systems ROS Statement: Those systems with pertinent positive or pertinent negative responses have been documented in the HPI. ROS Other: All systems not noted in ROS Statement are negative. 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 Last Myocardial Infarction Date:: unknown History of Any Multi-Drug Resistant Organisms: None Reported Past Surgical History: Orthopedic Surgery Additional Past Surgical History / Comment(s): metal plate left hand middle finger, right eye enucleation. Past Anesthesia/Blood Transfusion Reactions: No Reported Reaction Past Psychological History: Anxiety, Depression, Panic Disorder Smoking Status: Current some day smoker Past Alcohol Use History: Occasional Past Drug Use History: Marijuana - Past Family History Mother Family Medical History: Cancer Additional Family Medical History / Comment(s): Pt believes his Mom of Kidney Cancer Father Family Medical History: Cancer, COPD, Respiratory Disorder Additional Family Medical History / Comment(s): Melanoma General Exam Limitations: no limitations General appearance: alert, in distress, other (smells strongly of urine and clothing is covered in rat feces) Eye exam: Present: other (right eye closed - permanent vision loss) ENT exam: Present: mucous membranes dry Respiratory exam: Present: wheezes, rales, accessory muscle use, decreased breath sounds Cardiovascular Exam: Present: normal rhythm, tachycardia GI/Abdominal exam: Present: soft, normal bowel sounds. Absent: distended, tenderness, guarding, rebound, rigid Extremities exam: Present: other (contracture left lower extremity) Neurological exam: Present: alert, oriented X3, CN II-XII intact Psychiatric exam: Present: flat affect Course Vital Signs 05/23/20 05/23/20 05/23/20 19:13 20:15 20:24 Temperature 98.1 F Pulse Rate 134 H 124 H 128 H Respiratory 22 Rate Blood Pressure 195/96 O2 Sat by Pulse 95 Oximetry 05/23/20 05/23/20 20:45 22:01 Temperature 98.9 F Pulse Rate 126 H 124 H Respiratory 21 19 Rate Blood Pressure 169/83 155/79 O2 Sat by Pulse 99 98 Oximetry Medical Decision Making - Medical Decision Making Upon arrival the patient is placed in to room 5. After history of physical exam is performed. Patient is requesting a DuoNeb breathing treatment. Laboratory studies were conducted. Chest x-ray was performed. White count is 17. CK 768. She was given a 500 bolus followed by 50 mL per hour. Chest x-ray demonstrates no acute process. I did cover the patient with a dose of antibiotics because of his leukocytosis. I did recommend hospital admission as patient cannot care for himself. I will consult social work. Patient agreed to this. I discussed the case with Dr. Martinez who accepted admission. Patient's was transferred to the floor in stable condition - Lab Data Result diagrams: 05/24/20 06:46 05/24/20 06:46 Lab Results 05/23/20 05/23/20 05/23/20 Range/Units 19:50 19:50 19:50 WBC 17.0 H (3.8-10.6) k/uL RBC 4.11 L (4.30-5.90) m/uL Hgb 12.1 L (13.0-17.5) gm/dL Hct 37.6 L (39.0-53.0) % MCV 91.4 (80.0-100.0) fL MCH 29.4 (25.0-35.0) pg MCHC 32.2 (31.0-37.0) g/dL RDW 17.8 H (11.5-15.5) % Plt Count 382 (150-450) k/uL Neutrophils % 83 % Lymphocytes % 7 % Monocytes % 8 % Eosinophils % 1 % Basophils % 0 % Neutrophils # 14.2 H (1.3-7.7) k/uL Lymphocytes # 1.1 (1.0-4.8) k/uL Monocytes # 1.4 H (0-1.0) k/uL Eosinophils # 0.2 (0-0.7) k/uL Basophils # 0.1 (0-0.2) k/uL Anisocytosis Slight PT 10.1 (9.0-12.0) sec INR 1.0 (<1.2) APTT 28.1 (22.0-30.0) sec Sodium 127 L (137-145) mmol/L Potassium 5.3 H (3.5-5.1) mmol/L Chloride 90 L (98-107) mmol/L Carbon Dioxide 24 (22-30) mmol/L Anion Gap 13 mmol/L BUN 14 (9-20) mg/dL Creatinine 0.67 (0.66-1.25) mg/dL Est GFR (CKD-EPI)AfAm >90 (>60 ml/min/1.73 sqM) Est GFR (CKD-EPI)NonAf >90 (>60 ml/min/1.73 sqM) Glucose 82 (74-99) mg/dL Plasma Lactic Acid Gray (0.7-2.0) mmol/L Calcium 10.0 (8.4-10.2) mg/dL Total Bilirubin 0.6 (0.2-1.3) mg/dL AST 35 (17-59) U/L ALT 16 (4-49) U/L Alkaline Phosphatase 96 (38-126) U/L Creatine Kinase (55-170) U/L Troponin I (0.000-0.034) ng/mL NT-Pro-B Natriuret Pep pg/mL Total Protein 6.9 (6.3-8.2) g/dL Albumin 4.4 (3.5-5.0) g/dL 05/23/20 05/23/20 05/23/20 Range/Units 19:50 19:50 19:50 WBC (3.8-10.6) k/uL RBC (4.30-5.90) m/uL Hgb (13.0-17.5) gm/dL Hct (39.0-53.0) % MCV (80.0-100.0) fL MCH (25.0-35.0) pg MCHC (31.0-37.0) g/dL RDW (11.5-15.5) % Plt Count (150-450) k/uL Neutrophils % % Lymphocytes % % Monocytes % % Eosinophils % % Basophils % % Neutrophils # (1.3-7.7) k/uL Lymphocytes # (1.0-4.8) k/uL Monocytes # (0-1.0) k/uL Eosinophils # (0-0.7) k/uL Basophils # (0-0.2) k/uL Anisocytosis PT (9.0-12.0) sec INR (<1.2) APTT (22.0-30.0) sec Sodium (137-145) mmol/L Potassium (3.5-5.1) mmol/L Chloride (98-107) mmol/L Carbon Dioxide (22-30) mmol/L Anion Gap mmol/L BUN (9-20) mg/dL Creatinine (0.66-1.25) mg/dL Est GFR (CKD-EPI)AfAm (>60 ml/min/1.73 sqM) Est GFR (CKD-EPI)NonAf (>60 ml/min/1.73 sqM) Glucose (74-99) mg/dL Plasma Lactic Acid Gray 1.8 (0.7-2.0) mmol/L Calcium (8.4-10.2) mg/dL Total Bilirubin (0.2-1.3) mg/dL AST (17-59) U/L ALT (4-49) U/L Alkaline Phosphatase (38-126) U/L Creatine Kinase (55-170) U/L Troponin I <0.012 (0.000-0.034) ng/mL NT-Pro-B Natriuret Pep 323 pg/mL Total Protein (6.3-8.2) g/dL Albumin (3.5-5.0) g/dL 05/23/20 Range/Units 19:50 WBC (3.8-10.6) k/uL RBC (4.30-5.90) m/uL Hgb (13.0-17.5) gm/dL Hct (39.0-53.0) % MCV (80.0-100.0) fL MCH (25.0-35.0) pg MCHC (31.0-37.0) g/dL RDW (11.5-15.5) % Plt Count (150-450) k/uL Neutrophils % % Lymphocytes % % Monocytes % % Eosinophils % % Basophils % % Neutrophils # (1.3-7.7) k/uL Lymphocytes # (1.0-4.8) k/uL Monocytes # (0-1.0) k/uL Eosinophils # (0-0.7) k/uL Basophils # (0-0.2) k/uL Anisocytosis PT (9.0-12.0) sec INR (<1.2) APTT (22.0-30.0) sec Sodium (137-145) mmol/L Potassium (3.5-5.1) mmol/L Chloride (98-107) mmol/L Carbon Dioxide (22-30) mmol/L Anion Gap mmol/L BUN (9-20) mg/dL Creatinine (0.66-1.25) mg/dL Est GFR (CKD-EPI)AfAm (>60 ml/min/1.73 sqM) Est GFR (CKD-EPI)NonAf (>60 ml/min/1.73 sqM) Glucose (74-99) mg/dL Plasma Lactic Acid Gray (0.7-2.0) mmol/L Calcium (8.4-10.2) mg/dL Total Bilirubin (0.2-1.3) mg/dL AST (17-59) U/L ALT (4-49) U/L Alkaline Phosphatase (38-126) U/L Creatine Kinase 768 H (55-170) U/L Troponin I (0.000-0.034) ng/mL NT-Pro-B Natriuret Pep pg/mL Total Protein (6.3-8.2) g/dL Albumin (3.5-5.0) g/dL - EKG Data EKG Comments: EKG demonstrates a sinus tachycardia with occasional PVCs. Rate of 129. NE interval 132. QRS 76. QTC of 436. No acute ST segment elevations or depressions concerning for ischemic changes Disposition Clinical Impression: Fall, Blunt head trauma, Tachycardia, COPD exacerbation, Unable to care for self Disposition: ADMITTED IP TO THIS HOSP Condition: Stable Is patient prescribed a controlled substance at d/c from ED?: No Decision to Admit Reason: Admit from EC Decision Date: 05/23/20 Decision Time: 20:39
[2020-05-23 20:07] LABS: Anisocytosis Slight; Basophils # (A) 0.1 k/uL (0-0.2); Basophils % (A) 0 %; Eosinophils # (A) 0.2 k/uL (0-0.7); Eosinophils % (A) 1 %; HCT 37.6 % (39.0-53.0); HGB 12.1 gm/dL (13.0-17.5); Lymphocytes # (A) 1.1 k/uL (1.0-4.8); Lymphocytes % (A) 7 %; MCH 29.4 pg (25.0-35.0); MCHC 32.2 g/dL (31.0-37.0); MCV 91.4 fL (80.0-100.0); Mean Platelet Volume 6.5; Monocytes # (A) 1.4 k/uL (0-1.0); Monocytes % (A) 8 %; Neutrophils # (A) 14.2 k/uL (1.3-7.7); Neutrophils % (A) 83 %; Platelet Count 382 k/uL (150-450); RBC 4.11 m/uL (4.30-5.90); RDW 17.8 % (11.5-15.5)
[2020-05-23 20:15] LABS: ALT 16 U/L (4-49); AST 35 U/L (17-59); African American GFR (CKD) >90 (>60 ml/min/1.73 sqM); Albumin 4.4 g/dL (3.5-5.0); Alkaline Phosphatase 96 U/L (38-126); Anion Gap 13 mmol/L; Blood Urea Nitrogen 14 mg/dL (9-20); Carbon Dioxide 24 mmol/L (22-30); Chloride 90 mmol/L (98-107); Glucose 82 mg/dL (74-99); Non-African American GFR(CKD) >90 (>60 ml/min/1.73 sqM); Potassium 5.3 mmol/L (3.5-5.1); Sodium 127 mmol/L (137-145); Total Bilirubin 0.6 mg/dL (0.2-1.3); Total Protein 6.9 g/dL (6.3-8.2)
--- NOTE | 2020-05-23 20:15 | XR ---
EXAMINATION TYPE: XR chest 2V DATE OF EXAM: 05/23/2020 COMPARISON: Prior chest x-ray dated 02/19/2020, 03/24/[address] dated 01/02/2020 HISTORY: Difficulty breathing TECHNIQUE: Frontal and lateral views of the chest are obtained. FINDINGS: There is stable air space opacity right upper lobe, pleural effusion, or pneumothorax seen . Some probable scarring is again noted in the right upper lobe. The cardiac silhouette size is withi n normal limits. There are prominent lung volumes with flattening the hemidiaphragms consistent wit h underlying COPD as on prior exam. The osseous structures are intact. IMPRESSION: No acute cardiopulmonary process. Emphysema, scarring
[2020-05-23 20:17] LABS: Partial Thromboplastin Time 28.1 sec (22.0-30.0); Prothrombin Time 10.1 sec (9.0-12.0)
[2020-05-23] MEDS ORDERED: NALOXONE 0.4 MG/ML 1 ML VIAL IV PRN (20:39)
[2020-05-23] MEDS: SODIUM CHLORIDE 0.9% 1,000 ML IV SCH ×3 (20:45→22:57)
[2020-05-23] MEDS: IPRATROPIUM-ALBUTEROL 3 ML NEB INHALATION SCH (23:01)
[2020-05-23] MEDS: HYDROcodone/APAP 7.5-325MG 1 EACH TAB PO PRN (23:59)
[2020-05-23] MEDS: methocarbamoL 750 MG TAB PO SCH (23:59)
[2020-05-24] MEDS: SODIUM CHLORIDE 0.9% 1,000 ML IV SCH ×2 (00:01→17:13)
[2020-05-24] MEDS: IPRATROPIUM-ALBUTEROL 3 ML NEB INHALATION SCH ×6 (03:50→23:06)
[2020-05-24 07:06] LABS: Anisocytosis Slight; Basophils % (A) 0 %; Eosinophils # (A) 0.2 k/uL (0-0.7); Eosinophils % (A) 1 %; HCT 33.6 % (39.0-53.0); HGB 10.8 gm/dL (13.0-17.5); Lymphocytes # (A) 1.5 k/uL (1.0-4.8); Lymphocytes % (A) 11 %; MCH 28.6 pg (25.0-35.0); MCV 89.3 fL (80.0-100.0); Mean Platelet Volume 6.8; Monocytes # (A) 1.2 k/uL (0-1.0); Monocytes % (A) 9 %; Neutrophils # (A) 10.5 k/uL (1.3-7.7); Neutrophils % (A) 78 %; Platelet Count 333 k/uL (150-450); RBC 3.76 m/uL (4.30-5.90); RDW 17.9 % (11.5-15.5); WBC 13.6 k/uL (3.8-10.6)
[2020-05-24 07:30] LABS: African American GFR (CKD) >90 (>60 ml/min/1.73 sqM); Anion Gap 7 mmol/L; Blood Urea Nitrogen 9 mg/dL (9-20); Calcium 9.4 mg/dL (8.4-10.2); Carbon Dioxide 27 mmol/L (22-30); Chloride 97 mmol/L (98-107); Glucose 77 mg/dL (74-99); Non-African American GFR(CKD) >90 (>60 ml/min/1.73 sqM); Potassium 4.7 mmol/L (3.5-5.1); Sodium 131 mmol/L (137-145)
[2020-05-24] MEDS: HYDROcodone/APAP 7.5-325MG 1 EACH TAB PO PRN (08:50)
[2020-05-24] MEDS ORDERED: METHYL SALICYLATE/MENTHOL CREAM 5 OZ TOPICAL PRN (14:12)
[2020-05-24] MEDS ORDERED: NON FORMULARY DRUG (Menthol [Biofreeze] 89 ML Gel..Ml.) TOPICAL PRN (14:21)
[2020-05-24] MEDS ORDERED: MORPHINE SULFATE 2 MG/ML SYRINGE IVP STA (14:40)
[2020-05-24] MEDS: GABAPENTIN 300 MG CAP PO SCH (15:10)
[2020-05-24] MEDS: HYDROcodone/APAP 5-325MG 1 EACH TAB PO PRN ×2 (15:10→22:12)
--- NOTE | 2020-05-24 15:37 | XR ---
EXAMINATION TYPE: XR knee limited LT DATE OF EXAM: 05/24/2020 COMPARISON: 04/29/2019 HISTORY: Pain TECHNIQUE: Two views are submitted. FINDINGS: Exam is limited by positioning. There is a suprapatellar bursal fluid collection. There is narrowing of the tricompartment spaces without evidence of erosive change. Findings similar to prior exam. Vasc ular calcifications and diffuse osteopenia noted. No obvious fracture. IMPRESSION: 1. Diffuse osteopenia and arthropathy. Exam is limited by positioning. There is a suprapatellar bursa l fluid collection new from the prior exam. If there is concern for internal derangement of the knee correlate with MRI.
[2020-05-24] MEDS: MECLIZINE 12.5 MG TAB PO SCH (15:42)
[2020-05-24] MEDS: valACYclovir 500 MG TAB PO SCH (20:47)
[2020-05-24] MEDS: methocarbamoL 750 MG TAB PO SCH (20:47)
[2020-05-24] MEDS: METOPROLOL TARTRATE 25 MG TAB PO SCH (20:47)
[2020-05-24] MEDS: APIXABAN 5 MG TAB PO SCH (20:47)
[2020-05-24] MEDS: ATORVASTATIN 10 MG TAB PO SCH (20:47)
[2020-05-24] MEDS: MONTELUKAST 10 MG TAB PO SCH (20:47)
[2020-05-25] MEDS: MECLIZINE 25 MG TAB PO SCH ×2 (00:10→07:53)
[2020-05-25] MEDS: GABAPENTIN 300 MG CAP PO SCH ×4 (00:11→23:18)
[2020-05-25] MEDS: MELATONIN 5 MG TABLET PO PRN ×2 (00:13→23:29)
[2020-05-25] MEDS: MECLIZINE 12.5 MG TAB PO SCH (00:34)
[2020-05-25] MEDS: IPRATROPIUM-ALBUTEROL 3 ML NEB INHALATION SCH ×5 (02:58→19:51)
[2020-05-25] MEDS: HYDROcodone/APAP 5-325MG 1 EACH TAB PO PRN ×3 (06:01→21:22)
[2020-05-25] MEDS: valACYclovir 500 MG TAB PO SCH ×3 (06:02→21:21)
[2020-05-25] MEDS: FOLIC ACID 1 MG TAB PO SCH (07:53)
[2020-05-25] MEDS: amLODIPine 10 MG TAB PO SCH (07:54)
[2020-05-25] MEDS: METOPROLOL TARTRATE 25 MG TAB PO SCH ×2 (07:54→21:22)
[2020-05-25] MEDS: APIXABAN 5 MG TAB PO SCH ×2 (07:54→21:22)
[2020-05-25] MEDS: PANTOPRAZOLE 40 MG TABLET PO SCH (07:54)
[2020-05-25] MEDS: ASPIRIN 81 MG PO SCH (07:54)
[2020-05-25] MEDS: FERROUS SULFATE 325 MG TAB PO SCH (07:54)
[2020-05-25] MEDS: ESCITALOPRAM 10 MG TAB PO SCH (09:15)
--- NOTE | 2020-05-25 10:46 | P.HPIM ---
History of Present Illness Patient is a 59-year-old male with a known history of COPD and chronic hypoxic respiratory failure on home oxygen 2 L where nausea cannula, history of CVA, nicotine addiction and chronic left shoulder pain, hypertension and acid reflux and history of coronary artery disease and has history of UT, DVT/PE on Eliquis. recently treated a few months ago for right upper lobe cavitary pneumonia with questionable possible fungal infection that responded to therapy He had Several hospitalization for above problems. he Presents this time because of left knee pain for few days duration with no associated swelling. Patient states that he did not fall but he slipped on the floor and he denies trauma. He denies chest pain but he has little dyspnea which is looks close to his baseline. No fever. No abdominal pain or urinary symptoms. Patient says that he was recently at [facility] and he left AMA because of family issues. Vitas looks stable. Labs showed leukocytosis 17.0, don't get 13.6 K, patient has chronic leukocytosis at baseline Sodium was low 127, improved 131 today. Testicle BMP and liver enzymes were unremarkable. Troponin is negative less than 0.012. EKG showing sinus tachycardia at [address]-T changes. Chest x-ray: No acute cardiopulmonary process. Emphysema with scarring per radiologist Review of Systems CONSTITUTIONAL: No fever, no malaise, no fatigue. HEENT: No recent visual problems or hearing problems. Denied any sore throat. CARDIOVASCULAR: No orthopnea, PND, no palpitations, no syncope. PULMONARY: No shortness of breath, no cough, no hemoptysis. GASTROINTESTINAL: No diarrhea, no nausea, no vomiting, no abdominal pain. Normoactive bowel sounds. NEUROLOGICAL: No headaches, no weakness, no numbness. HEMATOLOGICAL: Denies any bleeding or petechiae. GENITOURINARY: Denies any burning micturition, frequency, or urgency. MUSCULOSKELETAL/RHEUMATOLOGICAL: Denies any joint pain, swelling, or any muscle pain. ENDOCRINE: Denies any polyuria or polydipsia. 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 Last Myocardial Infarction Date:: unknown History of Any Multi-Drug Resistant Organisms: None Reported Past Surgical History: Orthopedic Surgery Additional Past Surgical History / Comment(s): metal plate left hand middle finger, right eye enucleation. Past Anesthesia/Blood Transfusion Reactions: No Reported Reaction Past Psychological History: Anxiety, Depression, Panic Disorder Smoking Status: Current some day smoker Past Alcohol Use History: Occasional Past Drug Use History: Marijuana - Past Family History Mother Family Medical History: Cancer Additional Family Medical History / Comment(s): Pt believes his Mom of Kidney Cancer Father Family Medical History: Cancer, COPD, Respiratory Disorder Additional Family Medical History / Comment(s): Melanoma Medications and Allergies Home Medications Medication Instructions Recorded Confirmed Type amLODIPine [Norvasc] 10 mg PO DAILY 04/29/19 05/23/20 History Escitalopram [Lexapro] 10 mg PO DAILY #15 tab 05/15/19 05/23/20 Rx Melatonin 10 mg PO HS PRN 08/12/19 05/23/20 History Metoprolol Tartrate [Lopressor] 25 mg PO BID #60 tab 09/30/19 05/23/20 Rx Aspirin EC [Ecotrin Low Dose] 81 mg PO DAILY 10/20/19 05/23/20 History Folic Acid 1 mg PO DAILY 10/20/19 05/23/20 History Montelukast [Singulair] 10 mg PO HS tab 10/23/19 05/23/20 Rx Atorvastatin [Lipitor] 10 mg PO HS 02/18/20 05/23/20 History Ipratropium-Albuterol Nebulize 3 ml INHALATION RT-Q4H PRN 02/18/20 05/23/20 History [Duoneb 0.5 mg-3 mg/3 ml Soln] valACYclovir [Valtrex] 1,000 mg PO Q8H 02/18/20 05/24/20 History Apixaban [Eliquis] 5 mg PO BID tab 02/22/20 05/23/20 Rx ALPRAZolam [Xanax] 0.25 mg PO BID 05/24/20 05/23/20 History Ferrous Sulfate [Feosol] 325 mg PO DAILY 05/24/20 05/24/20 History Gabapentin 300 mg PO Q8H 05/24/20 05/24/20 History HYDROcodone/APAP 5-325MG [[place] 1 tab PO Q8H PRN 05/24/20 05/24/20 History 5-325] Meclizine [Antivert] 12.5 mg PO Q8H 05/24/20 05/24/20 History Menthol [Biofreeze] 1 applic TOPICAL Q12H PRN 05/24/20 05/24/20 History Methocarbamol [Robaxin-750] 1,500 mg PO Q8H PRN 05/24/20 05/24/20 History Pantoprazole Sodium [Protonix] 40 mg PO DAILY 05/24/20 05/24/20 History Allergies Allergy/AdvReac Type Severity Reaction Status Date / Time tree nut [Nut] Allergy Unknown Dyspnea, Verified 02/18/20 21:14 Rash/Hives peanut [Peanut Butter] AdvReac Dyspnea, Verified 02/18/20 21:14 Rash/Hives Physical Exam Vitals: Vital Signs Temp Pulse Pulse Resp BP BP Pulse Ox 05/24/20 11:24 97 16 05/24/20 11:19 100 05/24/20 11:17 97 16 134/64 97 05/24/20 11:08 100 05/24/20 08:02 111 H 05/24/20 08:00 98.0 F 110 H 18 144/73 97 05/24/20 07:50 115 H 96 05/24/20 04:01 100 05/24/20 04:00 98.7 F 104 H 18 159/76 98 05/24/20 03:50 104 H 05/24/20 00:00 98.9 F 128 H 20 172/73 99 05/23/20 23:14 128 H 05/23/20 23:01 128 H 05/23/20 22:44 98.9 F 128 H 20 172/73 99 05/23/20 22:01 98.9 F 124 H 19 155/79 98 05/23/20 20:45 126 H 21 169/83 99 05/23/20 20:24 128 H 05/23/20 20:15 124 H 05/23/20 19:13 98.1 F 134 H 22 195/96 95 Intake and Output 05/23/20 05/24/20 05/24/20 22:59 06:59 14:59 Intake Total 222 100 Output Total 400 Balance -178 100 Intake: Intake, IV Titration 0 Amount Sodium Chloride 0.9% 1, 0 000 ml @ 50 mls/hr IV . Q20H [facility] Rx#:[id number] Oral 222 100 Output: Urine 400 Other: Voiding Method Diaper Diaper # Voids 1 Weight 83.6 kg GENERAL: The patient is alert and oriented x3, not in any acute distress. Well developed, well nourished. HEENT: Pupils are round and equally reacting to light. EOMI. No scleral icterus. No conjunctival pallor. Normocephalic, atraumatic. No pharyngeal erythema. No thyromegaly. CARDIOVASCULAR: S1 and S2 present. No murmurs, rubs, or gallops. PULMONARY: Chest is clear to auscultation, no wheezing or crackles. ABDOMEN: Soft, nontender, nondistended, normoactive bowel sounds. No palpable organomegaly. MUSCULOSKELETAL: No joint swelling or deformity. -EXTREMITIES: No cyanosis, clubbing, or pedal edema. Patient refused the examination other than inspection and simple palpation, no redness or swelling or deformity or erythema or wound. Passive and active examination and management of the knee could not be done because the patient refused NEUROLOGICAL: Gross neurological examination did not reveal any focal deficits. SKIN: No rashes. No petechiae Results CBC & Chem 7: 05/24/20 06:46 05/24/20 06:46 Labs: Abnormal Lab Results - Last 24 Hours (Table) 05/23/20 05/23/20 05/23/20 Range/Units 19:50 19:50 19:50 WBC 17.0 H (3.8-10.6) k/uL RBC 4.11 L (4.30-5.90) m/uL Hgb 12.1 L (13.0-17.5) gm/dL Hct 37.6 L (39.0-53.0) % RDW 17.8 H (11.5-15.5) % Neutrophils # 14.2 H (1.3-7.7) k/uL Monocytes # 1.4 H (0-1.0) k/uL Sodium 127 L (137-145) mmol/L Potassium 5.3 H (3.5-5.1) mmol/L Chloride 90 L (98-107) mmol/L Creatinine (0.66-1.25) mg/dL Creatine Kinase 768 H (55-170) U/L 05/24/20 05/24/20 Range/Units 06:46 06:46 WBC 13.6 H (3.8-10.6) k/uL RBC 3.76 L (4.30-5.90) m/uL Hgb 10.8 L (13.0-17.5) gm/dL Hct 33.6 L (39.0-53.0) % RDW 17.9 H (11.5-15.5) % Neutrophils # 10.5 H (1.3-7.7) k/uL Monocytes # 1.2 H (0-1.0) k/uL Sodium 131 L (137-145) mmol/L Potassium (3.5-5.1) mmol/L Chloride 97 L (98-107) mmol/L Creatinine 0.52 L (0.66-1.25) mg/dL Creatine Kinase (55-170) U/L Thrombosis Risk Factor Assmnt - Choose All That Apply Any of the Below Risk Factors Present?: Yes Each Factor Represents 1 point: Abnormal pulmonary function (COPD), Age 41-60 years Other Risk Factors: Yes Each Risk Factor Represents 2 Points: Patient confined to bed Other congenital or acquired thrombophilia - If yes, enter type in comment: No Thrombosis Risk Factor Assessment Total Risk Factor Score: 4 Thrombosis Risk Factor Assessment Level: Moderate Risk Assessment and Plan Assessment: Left knee pain Hyponatremia COPD exacerbation, no acute exacerbation history of pulmonary embolism. CT of the thorax showing saddle embolus extending into the left upper lobe, on Eliquis Recent history of Pneumonia with combined fungal and bacterial infection. Treated and is improving Stable and improving cavitating right upper lobe abscess. Thought to be fungal infection/fungal ball. Was on itraconazole (Sporanox), resolved 7 mm Pulmonary nodules in the right basal lung Chronic Leukocytosis, multifactorial due to infection and steroid effect. Recent history herpez zoster , shingles of the left flank. Improved Chronic Left shoulder pain, left shoulder injury status post fall. 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 History of Coronary artery disease with history of UT. Ongoing nicotine addiction Plan: This is a pleasant 59 years old male who presents with left knee pain. Exam showing no tenderness or warmth or swelling. we'll do the x-ray of the left knee and if it is abnormal then We will call orthopedic consult. Continue with pain management Labs and medication were reviewed.. Continue same treatment. Continue with symptomatic treatment. Resume home medication. Monitor lytes and vitals. DVT and GI prophylaxis. Further recommendations depends on the clinical course of the patient DVT prophylaxis: Subcutaneous heparin GI Prophylaxis: Pepcid Prognosis is guarded
--- NOTE | 2020-05-25 15:11 | P.PN ---
Progress Note - Text Progress Note Date: 05/25/20 Presenting complaint: Left knee pain Interval history: This is a 59-year-old patient of Dr. 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 At the baseline uses a wheelchair. Long-time smoker now down to a few cigarettes a day. Admitted with left knee pain. Orthopedics was consulted. Eating well. Some shortness of breath. More at his baseline. Tired. Recently fell at home on the carpet with a carpet rash on the right side of the face Today-tired. 8 his lunch well. Breathing is stable. Review of systems: Was done for constitutional, cardiovascular, GI, pulmonary. relevant finding as above Active Medications Hydrocodone Bitart/Acetaminophen (Hydrocodone/Apap 5-325mg 1 Each Tab) 1 each PO Q8H PRN PRN Reason: Pain Last Admin: 05/25/20 14:06 Dose: 1 each Documented by: Albuterol/Ipratropium (Ipratropium-Albuterol 3 Ml Neb) 3 ml INHALATION RT-Q4H [facility] Last Admin: 05/25/20 11:10 Dose: 3 ml Documented by: Alprazolam (Alprazolam 0.25 Mg Tab) 0.25 mg PO BID PRN PRN Reason: Anxiety Amlodipine Besylate (Amlodipine 10 Mg Tab) 10 mg PO DAILY [facility] Last Admin: 05/25/20 07:54 Dose: 10 mg Documented by: Apixaban (Apixaban 5 Mg Tab) 5 mg PO BID [facility] Last Admin: 05/25/20 07:54 Dose: 5 mg Documented by: Aspirin (Aspirin 81 Mg) 81 mg PO DAILY [facility] Last Admin: 05/25/20 07:54 Dose: 81 mg Documented by: Atorvastatin Calcium (Atorvastatin 10 Mg Tab) 10 mg PO HS [facility] Last Admin: 05/24/20 20:47 Dose: 10 mg Documented by: Escitalopram Oxalate (Escitalopram 10 Mg Tab) 10 mg PO DAILY [facility] Last Admin: 05/25/20 09:15 Dose: 10 mg Documented by: Ferrous Sulfate (Ferrous Sulfate 325 Mg Tab) 325 mg PO DAILY [facility] Last Admin: 05/25/20 07:54 Dose: 325 mg Documented by: Folic Acid (Folic Acid 1 Mg Tab) 1 mg PO DAILY [facility] Last Admin: 05/25/20 07:53 Dose: 1 mg Documented by: Gabapentin (Gabapentin 300 Mg Cap) 300 mg PO Q8H [facility] Last Admin: 05/25/20 07:53 Dose: 300 mg Documented by: Sodium Chloride (Saline 0.9%) 1,000 mls @ 50 mls/hr IV .Q20H [facility] Last Admin: 05/24/20 17:13 Dose: Not Given Documented by: Melatonin (Melatonin 5 Mg Tablet) 10 mg PO HS PRN PRN Reason: Insomnia Last Admin: 05/25/20 00:13 Dose: 10 mg Documented by: Methocarbamol (Methocarbamol 750 Mg Tab) 750 mg PO HS [facility] Last Admin: 05/24/20 20:47 Dose: 750 mg Documented by: Methyl Salicylate (Methyl Salicylate/Menthol Cream 5 Oz) 1 applic TOPICAL QID PRN PRN Reason: Moderate Pain Metoprolol Tartrate (Metoprolol Tartrate 25 Mg Tab) 25 mg PO BID [facility] Last Admin: 05/25/20 07:54 Dose: 25 mg Documented by: Montelukast Sodium (Montelukast 10 Mg Tab) 10 mg PO HS [facility] Last Admin: 05/24/20 20:47 Dose: 10 mg Documented by: Naloxone HCl (Naloxone 0.4 Mg/Ml 1 Ml Vial) 0.2 mg IV Q2M PRN PRN Reason: Opioid Reversal Pantoprazole Sodium (Pantoprazole 40 Mg Tablet) 40 mg PO DAILY [facility] Last Admin: 05/25/20 07:54 Dose: 40 mg Documented by: Valacyclovir HCl (Valacyclovir 500 Mg Tab) 1,000 mg PO Q8H [facility] Last Admin: 05/25/20 14:07 Dose: 1,000 mg Documented by: On examination: VITAL SIGNS: 97.8, 92, 18, 123 with 76, 97% on 3 L GENERAL APPEARANCE: Average build. Lying in bed, tired HEENT: Carpet rash on the right forehead, below the right eye EYES: Pupils equal. Conjunctiva normal. NECK: JVD not raised. Mass not palpable. RESPIRATORY: Respiratory effort increased. Decreased breath sounds or wheezing CARDIOVASCULAR: First and second sounds normal. No edema. ABDOMEN: Soft. Liver and spleen not palpable. No tenderness. No mass palpable. PSYCHIATRY: Answering questions, sleepy INVESTIGATIONS, reviewed in the clinical context: White count 13.6 hemoglobin 10.8 potassium 4.7 sodium 131 creatine 0.5 to X-ray of the left knee shows diffuse osteopenia arthropathy, suprapatellar bursa fluid collection Assessment: -Acute increased pain in the left knee appears to be combination of osteoarthritis and suprapatellar bursitis -COPD in a current smoker -Chronic nicotine dependence patient cigarette smoker -Essential hypertension -Chronic pulmonary embolism on anticoagulation -Chronic hypoxic is pretty failure home oxygen 2 L from underlying COPD -Blind in the right eye -Chronic medical debility uses a wheelchair -Depression and anxiety not otherwise specified Plan: Orthopedics was consulted. In the meantime use a Juan Alberto wrap on the left knee. Use a heating pad and/or ice pack. Care was discussed with the patient. Have asked the nurse 8 to have the patient sit up at the edge of the bed to help him with his meal.
[2020-05-25] MEDS: SODIUM CHLORIDE 0.9% 1,000 ML IV SCH (15:41)
[2020-05-25] MEDS: MONTELUKAST 10 MG TAB PO SCH (21:22)
[2020-05-25] MEDS: ATORVASTATIN 10 MG TAB PO SCH (21:22)
[2020-05-25] MEDS: methocarbamoL 750 MG TAB PO SCH (21:22)
[2020-05-26] MEDS: IPRATROPIUM-ALBUTEROL 3 ML NEB INHALATION SCH ×6 (00:19→20:11)
[2020-05-26] MEDS: valACYclovir 500 MG TAB PO SCH ×3 (05:51→21:10)
[2020-05-26] MEDS: FOLIC ACID 1 MG TAB PO SCH (08:01)
[2020-05-26] MEDS: GABAPENTIN 300 MG CAP PO SCH ×3 (08:01→23:55)
[2020-05-26] MEDS: APIXABAN 5 MG TAB PO SCH ×2 (08:01→21:09)
[2020-05-26] MEDS: amLODIPine 10 MG TAB PO SCH (08:01)
[2020-05-26] MEDS: ESCITALOPRAM 10 MG TAB PO SCH (08:01)
[2020-05-26] MEDS: FERROUS SULFATE 325 MG TAB PO SCH (08:01)
[2020-05-26] MEDS: METOPROLOL TARTRATE 25 MG TAB PO SCH ×2 (08:01→21:09)
[2020-05-26] MEDS: ASPIRIN 81 MG PO SCH (08:01)
[2020-05-26] MEDS: PANTOPRAZOLE 40 MG TABLET PO SCH (08:01)
[2020-05-26] MEDS: HYDROcodone/APAP 5-325MG 1 EACH TAB PO PRN ×3 (08:03→23:55)
[2020-05-26] MEDS ORDERED: methylPREDNISolone ACETATE 40 MG/ML 1 ML VIAL INTRAARTIC STA (08:53)
[2020-05-26] MEDS ORDERED: LIDOCAINE 2% INJ 20 MG/ML (20 ML MDV) SQ ONE (08:53)
[2020-05-26] MEDS: SODIUM CHLORIDE 0.9% 1,000 ML IV SCH (09:26)
--- NOTE | 2020-05-26 09:40 | P.CNOR ---
History of Present Illness - [facility] Consult date: 05/26/20 Consult reason: joint pain (Left knee pain) History of present illness: This is a 51-year-old gentleman with history of multiple medical comorbidities. He is admitted with shortness of breath. He complains of left knee pain which he states radiates up and down the leg. He is having spasms to the leg. He denies any trauma or injury to the knee. Orthopedics is consulted for evaluation. 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 Last Myocardial Infarction Date:: unknown History of Any Multi-Drug Resistant Organisms: None Reported Past Surgical History: Orthopedic Surgery Additional Past Surgical History / Comment(s): metal plate left hand middle finger, right eye enucleation. Past Anesthesia/Blood Transfusion Reactions: No Reported Reaction Past Psychological History: Anxiety, Depression, Panic Disorder Smoking Status: Current some day smoker Past Alcohol Use History: Occasional Past Drug Use History: Marijuana - Past Family History Mother Family Medical History: Cancer Additional Family Medical History / Comment(s): Pt believes his Mom of Kidney Cancer Father Family Medical History: Cancer, COPD, Respiratory Disorder Additional Family Medical History / Comment(s): Melanoma Medications and Allergies Home Medications Medication Instructions Recorded Confirmed Type amLODIPine [Norvasc] 10 mg PO DAILY 04/29/19 05/23/20 History Escitalopram [Lexapro] 10 mg PO DAILY #15 tab 05/15/19 05/23/20 Rx Melatonin 10 mg PO HS PRN 08/12/19 05/23/20 History Metoprolol Tartrate [Lopressor] 25 mg PO BID #60 tab 09/30/19 05/23/20 Rx Aspirin EC [Ecotrin Low Dose] 81 mg PO DAILY 10/20/19 05/23/20 History Folic Acid 1 mg PO DAILY 10/20/19 05/23/20 History Montelukast [Singulair] 10 mg PO HS tab 10/23/19 05/23/20 Rx Atorvastatin [Lipitor] 10 mg PO HS 02/18/20 05/23/20 History Ipratropium-Albuterol Nebulize 3 ml INHALATION RT-Q4H PRN 02/18/20 05/23/20 History [Duoneb 0.5 mg-3 mg/3 ml Soln] valACYclovir [Valtrex] 1,000 mg PO Q8H 02/18/20 05/24/20 History Apixaban [Eliquis] 5 mg PO BID tab 02/22/20 05/23/20 Rx ALPRAZolam [Xanax] 0.25 mg PO BID 05/24/20 05/23/20 History Ferrous Sulfate [Feosol] 325 mg PO DAILY 05/24/20 05/24/20 History Gabapentin 300 mg PO Q8H 05/24/20 05/24/20 History HYDROcodone/APAP 5-325MG [[place] 1 tab PO Q8H PRN 05/24/20 05/24/20 History 5-325] Meclizine [Antivert] 12.5 mg PO Q8H 05/24/20 05/24/20 History Menthol [Biofreeze] 1 applic TOPICAL Q12H PRN 05/24/20 05/24/20 History Methocarbamol [Robaxin-750] 1,500 mg PO Q8H PRN 05/24/20 05/24/20 History Pantoprazole Sodium [Protonix] 40 mg PO DAILY 05/24/20 05/24/20 History Allergies Allergy/AdvReac Type Severity Reaction Status Date / Time tree nut [Nut] Allergy Unknown Dyspnea, Verified 02/18/20 21:14 Rash/Hives peanut [Peanut Butter] AdvReac Dyspnea, Verified 02/18/20 21:14 Rash/Hives Physical Examination This is a 59-year-old male in no acute distress. He is alert and oriented 3. He is lying in bed with the left leg in flexion, partially laying on his left side. The patient is unable/unwilling to roll to his back for evaluation. I am able to slide my hand behind the back and he does have some tenderness with palpation about the left low back. There is pain with any motion of the left leg. There does seem to be an effusion of the left knee. He is unable to straighten the knee for further evaluation. He is able to wiggle toes. Pedal pulse +2/4. Results X-rays of the left knee reveal some degenerative changes. X-rays are suboptimal secondary to his inability to straighten the knee. There is no obvious fracture noted. - Labs Labs: H & H 05/23/20 05/24/20 Range/Units 19:50 06:46 Hgb 12.1 L 10.8 L (13.0-17.5) gm/dL Hct 37.6 L 33.6 L (39.0-53.0) % Coagulation 05/23/20 Range/Units 19:50 INR 1.0 (<1.2) Result Diagrams: 05/24/20 06:46 05/24/20 06:46 Assessment and Plan (1) Left knee pain Current Visit: Yes Status: Acute Code(s): M25.562 - PAIN IN LEFT KNEE SNOMED Code(s): 04838558 (2) Left leg pain Current Visit: Yes Status: Acute Code(s): M79.605 - PAIN IN LEFT LEG SNOMED Code(s): 576612436 (3) COPD exacerbation Current Visit: Yes Status: Acute Code(s): J44.1 - CHRONIC OBSTRUCTIVE PULMONARY DISEASE W (ACUTE) EXACERBATION SNOMED Code(s): 432781933 Plan: The clinical and x-ray findings are discussed with the patient. The left knee is aspirated. See procedure below. Procedure: The left knee is aspirated using sterile technique. I obtained approximately 30 mL of pat blood from the knee. The patient tolerated the procedure fairly well. I did inject the knee with Depomedrol as well. I recommended patient have a computed tomography scan for further radiographic evaluation of the knee. The patient declines computed tomography scan at this time. I recommend he be placed in a knee immobilizer for immobilization of the knee and repeat x-ray in one week. He is to be nonweightbearing to the left lower extremity with walker. I do feel that he also has a lumbar contribution with his leg pain and spasms that he has been having. He declines further workup regarding low back at this time.
--- NOTE | 2020-05-26 17:41 | P.PN ---
Progress Note - Text Progress Note Date: 05/26/20 Presenting complaint: Left knee pain Interval history: This is a 59-year-old patient of Dr. 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 At the baseline uses a wheelchair. Long-time smoker now down to a few cigarettes a day. Admitted with left knee pain. Orthopedics was consulted. Eating well. Some shortness of breath. More at his baseline. Tired. Recently fell at home on the carpet with a carpet rash on the right side of the face Today-patient had steroid injections left knee. Laying in bed. Comfortable. Wants more pain medications pain management consulted. Review of systems: Was done for constitutional, cardiovascular, GI, pulmonary. relevant finding as above Active Medications Hydrocodone Bitart/Acetaminophen (Hydrocodone/Apap 5-325mg 1 Each Tab) 1 each PO Q8H PRN PRN Reason: Pain Last Admin: 05/26/20 16:46 Dose: 1 each Documented by: Albuterol/Ipratropium (Ipratropium-Albuterol 3 Ml Neb) 3 ml INHALATION RT-Q4H [facility] Last Admin: 05/26/20 15:16 Dose: 3 ml Documented by: Alprazolam (Alprazolam 0.25 Mg Tab) 0.25 mg PO BID PRN PRN Reason: Anxiety Amlodipine Besylate (Amlodipine 10 Mg Tab) 10 mg PO DAILY [facility] Last Admin: 05/26/20 08:01 Dose: 10 mg Documented by: Apixaban (Apixaban 5 Mg Tab) 5 mg PO BID [facility] Last Admin: 05/26/20 08:01 Dose: 5 mg Documented by: Aspirin (Aspirin 81 Mg) 81 mg PO DAILY [facility] Last Admin: 05/26/20 08:01 Dose: 81 mg Documented by: Atorvastatin Calcium (Atorvastatin 10 Mg Tab) 10 mg PO HS [facility] Last Admin: 05/25/20 21:22 Dose: 10 mg Documented by: Escitalopram Oxalate (Escitalopram 10 Mg Tab) 10 mg PO DAILY [facility] Last Admin: 05/26/20 08:01 Dose: 10 mg Documented by: Ferrous Sulfate (Ferrous Sulfate 325 Mg Tab) 325 mg PO DAILY [facility] Last Admin: 05/26/20 08:01 Dose: 325 mg Documented by: Folic Acid (Folic Acid 1 Mg Tab) 1 mg PO DAILY [facility] Last Admin: 05/26/20 08:01 Dose: 1 mg Documented by: Gabapentin (Gabapentin 300 Mg Cap) 300 mg PO Q8H [facility] Last Admin: 05/26/20 16:46 Dose: 300 mg Documented by: Sodium Chloride (Saline 0.9%) 1,000 mls @ 50 mls/hr IV .Q20H [facility] Last Admin: 05/26/20 09:26 Dose: Not Given Documented by: Melatonin (Melatonin 5 Mg Tablet) 10 mg PO HS PRN PRN Reason: Insomnia Last Admin: 05/25/20 23:29 Dose: 10 mg Documented by: Methocarbamol (Methocarbamol 750 Mg Tab) 750 mg PO HS [facility] Last Admin: 05/25/20 21:22 Dose: 750 mg Documented by: Methyl Salicylate (Methyl Salicylate/Menthol Cream 5 Oz) 1 applic TOPICAL QID PRN PRN Reason: Moderate Pain Metoprolol Tartrate (Metoprolol Tartrate 25 Mg Tab) 25 mg PO BID [facility] Last Admin: 05/26/20 08:01 Dose: 25 mg Documented by: Montelukast Sodium (Montelukast 10 Mg Tab) 10 mg PO HS [facility] Last Admin: 05/25/20 21:22 Dose: 10 mg Documented by: Naloxone HCl (Naloxone 0.4 Mg/Ml 1 Ml Vial) 0.2 mg IV Q2M PRN PRN Reason: Opioid Reversal Pantoprazole Sodium (Pantoprazole 40 Mg Tablet) 40 mg PO DAILY [facility] Last Admin: 05/26/20 08:01 Dose: 40 mg Documented by: Valacyclovir HCl (Valacyclovir 500 Mg Tab) 1,000 mg PO Q8H [facility] Last Admin: 05/26/20 14:24 Dose: 1,000 mg Documented by: On examination: VITAL SIGNS: 98, 99, 18, 123/75, 99% on 3 L GENERAL APPEARANCE: Laying in bed, comfortable HEENT: Carpet rash on the right forehead, below the right eye EYES: Pupils equal. Conjunctiva normal. NECK: JVD not raised. Mass not palpable. RESPIRATORY: Respiratory effort increased. Decreased breath sounds or wheezing CARDIOVASCULAR: First and second sounds normal. No edema. ABDOMEN: Soft. Liver and spleen not palpable. No tenderness. No mass palpable. PSYCHIATRY: Answering questions appropriately INVESTIGATIONS, reviewed in the clinical context: White count 13.6 hemoglobin 10.8 potassium 4.7 sodium 131 creatine 0.5 to X-ray of the left knee shows diffuse osteopenia arthropathy, suprapatellar bursa fluid collection Assessment: -Acute flareup of primary osteoarthritis and suprapatellar bursitis-with steroid injection -COPD in a current smoker -Chronic nicotine dependence patient cigarette smoker -Essential hypertension -Chronic pulmonary embolism on anticoagulation -Chronic hypoxic is pretty failure home oxygen 2 L from underlying COPD -Blind in the right eye -Chronic medical debility uses a wheelchair -Depression and anxiety not otherwise specified -Chronic pain syndrome Plan: Pain management consulted. Other medications to continue. DC IV fluids. Spoke to the case planner. Looking at inpatient rehab.
[2020-05-26] MEDS: MONTELUKAST 10 MG TAB PO SCH (21:09)
[2020-05-26] MEDS: ATORVASTATIN 10 MG TAB PO SCH (21:09)
[2020-05-26] MEDS: methocarbamoL 750 MG TAB PO SCH (21:10)
[2020-05-26] MEDS: MELATONIN 5 MG TABLET PO PRN (21:12)
[2020-05-26] MEDS: ALPRAZolam 0.25 MG TAB PO PRN (21:12)
[2020-05-27] MEDS: IPRATROPIUM-ALBUTEROL 3 ML NEB INHALATION SCH ×6 (00:17→20:35)
[2020-05-27] MEDS ORDERED: HYDROcodone/APAP 5-325MG 1 EACH TAB PO STA (02:55)
[2020-05-27] MEDS: valACYclovir 500 MG TAB PO SCH ×2 (05:37→15:09)
[2020-05-27 07:27] VITALS: RESP 17
[2020-05-27] MEDS: ALPRAZolam 0.25 MG TAB PO PRN (07:27)
[2020-05-27] MEDS: GABAPENTIN 300 MG CAP PO SCH ×2 (07:28→15:09)
[2020-05-27] MEDS: METOPROLOL TARTRATE 25 MG TAB PO SCH ×2 (07:28→19:36)
[2020-05-27] MEDS: amLODIPine 10 MG TAB PO SCH (07:28)
[2020-05-27] MEDS: HYDROcodone/APAP 5-325MG 1 EACH TAB PO PRN ×2 (07:29→15:09)
[2020-05-27] MEDS: ASPIRIN 81 MG PO SCH (07:29)
[2020-05-27] MEDS: APIXABAN 5 MG TAB PO SCH ×2 (07:29→20:17)
[2020-05-27] MEDS: PANTOPRAZOLE 40 MG TABLET PO SCH (07:29)
[2020-05-27] MEDS: FOLIC ACID 1 MG TAB PO SCH (07:30)
[2020-05-27] MEDS: FERROUS SULFATE 325 MG TAB PO SCH (07:30)
[2020-05-27] MEDS: ESCITALOPRAM 10 MG TAB PO SCH (07:30)
--- NOTE | 2020-05-27 14:29 | P.DS ---
Providers Date of admission: 05/23/20 20:40 Expected date of discharge: 05/27/20 Attending physician: Justice Ansari Consults: 05/25/20 10:41 Consult Physician Urgent Consulting Provider: Evaristo Brown Consult Reason/Comments: left knee pain Do you want consulting provider notified?: Yes 05/26/20 11:18 Consult Physician Routine Consulting Provider: Ciaran Huertas Consult Reason/Comments: pain management Do you want consulting provider notified?: Yes Primary care physician: Urszula [facility] Course: Presenting complaint: Left knee pain Interval history: This is a 59-year-old patient of Dr. 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 At the baseline uses a wheelchair. Long-time smoker now down to a few cigarettes a day. Admitted with left knee pain. -Acute flareup of primary osteoarthritis. Orthopedics-steroid injection was done. Improved.. Eating well. Some shortness of breath. More at his baseline. Tired. Recently fell at home on the carpet with a carpet rash on the right side of the face. Today-laying in bed. Feeling well. Eating well. Pain better control. Discussed with the patient. Discussed with web content & social media manager. DC to inpatient rehab. Consultation: Dr. Jeff brown. On examination: VITAL SIGNS: 98.1, 90, 17, 114/69, 98% on 3 L GENERAL APPEARANCE: Laying in bed, comfortable HEENT: Carpet rash on the right forehead, below the right eye EYES: Pupils equal. Conjunctiva normal. NECK: JVD not raised. Mass not palpable. RESPIRATORY: Respiratory effort increased. Decreased breath sounds or wheezing CARDIOVASCULAR: First and second sounds normal. No edema. ABDOMEN: Soft. Liver and spleen not palpable. No tenderness. No mass palpable. PSYCHIATRY: Answering questions appropriately INVESTIGATIONS, reviewed in the clinical context: White count 13.6 hemoglobin 10.8 potassium 4.7 sodium 131 creatine 0.5 to X-ray of the left knee shows diffuse osteopenia arthropathy, suprapatellar bursa fluid collection Assessment: -Acute flareup of primary osteoarthritis and suprapatellar bursitis-with steroid injection -COPD in a current smoker -Chronic nicotine dependence patient cigarette smoker -Essential hypertension -Chronic pulmonary embolism on anticoagulation -Chronic hypoxic is pretty failure home oxygen 2 L from underlying COPD -Blind in the right eye -Chronic medical debility uses a wheelchair -Depression and anxiety not otherwise specified -Chronic pain syndrome -Hyponatremia improving -Right facial carpet rash/superficial bruising from a fall at home Disposition: Rehab Patient Condition at Discharge: Stable Plan - Discharge Summary Discharge Rx Participant: No New Discharge Prescriptions: Continue amLODIPine [Norvasc] 10 mg PO DAILY Escitalopram [Lexapro] 10 mg PO DAILY #15 tab Melatonin 10 mg PO HS PRN PRN Reason: Insomnia Metoprolol Tartrate [Lopressor] 25 mg PO BID #60 tab Folic Acid 1 mg PO DAILY Aspirin EC [Ecotrin Low Dose] 81 mg PO DAILY Montelukast [Singulair] 10 mg PO HS tab valACYclovir [Valtrex] 1,000 mg PO Q8H Ipratropium-Albuterol Nebulize [Duoneb 0.5 mg-3 mg/3 ml Soln] 3 ml INHALATION RT-Q4H PRN PRN Reason: Shortness Of Breath Atorvastatin [Lipitor] 10 mg PO HS Apixaban [Eliquis] 5 mg PO BID tab Methocarbamol [Robaxin-750] 1,500 mg PO Q8H PRN PRN Reason: Pain Menthol [Biofreeze] 1 applic TOPICAL Q12H PRN PRN Reason: Pain Ferrous Sulfate [Iron (65 MG Elemental)] 325 mg PO DAILY Pantoprazole Sodium [Protonix] 40 mg PO DAILY Gabapentin 300 mg PO Q8H #9 cap HYDROcodone/APAP 5-325MG [[place] 5-325] 1 tab PO Q8H PRN #9 tab PRN Reason: Pain Changed ALPRAZolam [Xanax] 0.25 mg PO BID #6 tab Discontinued Meclizine [Antivert] 12.5 mg PO Q8H Discharge Medication List amLODIPine [Norvasc] 10 mg PO DAILY 04/29/19 [History] Escitalopram [Lexapro] 10 mg PO DAILY #15 tab 05/15/19 [Rx] Melatonin 10 mg PO HS PRN 08/12/19 [History] Metoprolol Tartrate [Lopressor] 25 mg PO BID #60 tab 09/30/19 [Rx] Aspirin EC [Ecotrin Low Dose] 81 mg PO DAILY 10/20/19 [History] Folic Acid 1 mg PO DAILY 10/20/19 [History] Montelukast [Singulair] 10 mg PO HS tab 10/23/19 [Rx] Atorvastatin [Lipitor] 10 mg PO HS 02/18/20 [History] Ipratropium-Albuterol Nebulize [Duoneb 0.5 mg-3 mg/3 ml Soln] 3 ml INHALATION RT-Q4H PRN 02/18/20 [History] valACYclovir [Valtrex] 1,000 mg PO Q8H 02/18/20 [History] Apixaban [Eliquis] 5 mg PO BID tab 02/22/20 [Rx] Ferrous Sulfate [Iron (65 MG Elemental)] 325 mg PO DAILY 05/24/20 [History] Menthol [Biofreeze] 1 applic TOPICAL Q12H PRN 05/24/20 [History] Methocarbamol [Robaxin-750] 1,500 mg PO Q8H PRN 05/24/20 [History] Pantoprazole Sodium [Protonix] 40 mg PO DAILY 05/24/20 [History] ALPRAZolam [Xanax] 0.25 mg PO BID #6 tab 05/27/20 [Rx] Gabapentin 300 mg PO Q8H #9 cap 05/27/20 [Rx] HYDROcodone/APAP 5-325MG [[place] 5-325] 1 tab PO Q8H PRN #9 tab 05/27/20 [Rx] Follow up Appointment(s)/Referral(s): Jessica Jain PAC [PHYSICIAN HIGH RISK OB] - 10 Days Urszula Carrasco MD [Primary Care Provider] - 06/02/20 2:30 pm (Please obtain a referral at this appointment to be seen at [facility] ) Activity/Diet/Wound Care/Special Instructions: Follow up Xray in 1 week. Maintain knee immobilizer LLCristy. AGUSTIN angel.
[2020-05-27 19:30] VITALS: BP 113/66; TEMP 98
[2020-05-27] MEDS: MONTELUKAST 10 MG TAB PO SCH (20:17)
[2020-05-27] MEDS: ATORVASTATIN 10 MG TAB PO SCH (20:17)
[2020-05-27] MEDS: methocarbamoL 750 MG TAB PO SCH (20:17)
[2020-05-27 20:38] VITALS: PULSE 89
[2020-05-28] MEDS: HYDROcodone/APAP 5-325MG 1 EACH TAB PO PRN (00:06)
[2020-05-28] MEDS: ALPRAZolam 0.25 MG TAB PO PRN (00:07)
[2020-05-28] MEDS: valACYclovir 500 MG TAB PO SCH (00:07)
== END 2020-05-28 | DRG 554 ==
LOC: EC 19:06 → 3SCARD 20:40 → 4SSUR 05-24 19:46
PROVIDERS: ADMIT Hospitalist; ATTEND Hospitalist
PROC: 3E0U33Z Introduction of Anti-inflammatory into Joints, Percutaneous Approach (ICD-10-PCS; principal; 2020-05-26)
PROC: 0S9D3ZZ Drainage of Left Knee Joint, Percutaneous Approach (ICD-10-PCS; principal; 2020-05-26)
DX: M17.12 Unilateral primary osteoarthritis, left knee (principal); E87.1 Hypo-osmolality and hyponatremia; J96.11 Chronic respiratory failure with hypoxia; I27.82 Chronic pulmonary embolism; M71.562 Other bursitis, not elsewhere classified, left knee; F41.8 Other specified anxiety disorders; F41.0 Panic disorder [episodic paroxysmal anxiety]; F17.210 Nicotine dependence, cigarettes, uncomplicated; G89.4 Chronic pain syndrome; I10 Essential (primary) hypertension; K21.9 Gastro-esophageal reflux disease without esophagitis; J43.9 Emphysema, unspecified; R53.81 Other malaise; H54.61 Unqualified visual loss, right eye, normal vision left eye; Z20.828 Contact with and (suspected) exposure to other viral communicable diseases; S00.83XA Contusion of other part of head, initial encounter; I25.10 Atherosclerotic heart disease of native coronary artery without angina pectoris; W05.0XXA Fall from non-moving wheelchair, initial encounter; I25.2 Old myocardial infarction; Z79.899 Other long term (current) drug therapy; Z79.82 Long term (current) use of aspirin; Z91.018 Allergy to other foods; Z79.01 Long term (current) use of anticoagulants; Z91.010 Allergy to peanuts; Z86.73 Personal history of transient ischemic attack (TIA), and cerebral infarction without residual deficits; Z87.01 Personal history of pneumonia (recurrent); Z98.890 Other specified postprocedural states; Z87.81 Personal history of (healed) traumatic fracture; Z80.8 Family history of malignant neoplasm of other organs or systems; Z82.5 Family history of asthma and other chronic lower respiratory diseases; Z80.51 Family history of malignant neoplasm of kidney; Z86.718 Personal history of other venous thrombosis and embolism; Z99.81 Dependence on supplemental oxygen; Y92.009 Unspecified place in unspecified non-institutional (private) residence as the place of occurrence of the external cause
CPT/HCPCS: 36415; 71046; 80048; 80053; 82550; 83605; 83880; 84484; 85025; 85610; 85730; 87635; 93005; 94640; 94760; 96360; 96361; 99285